=== PATIENT | female | born 1995 | race Caucasian/White ===

== ENCOUNTER → 2018-08-04 16:43 | Outpatient (CLI) | payer OTHER, SELFPAY | PROVIDERS: Referring Provider Nurse Practitioner; Visit Provider Nurse Practitioner | DX: R50.9 Fever, unspecified (principal); R19.7 Diarrhea, unspecified; D89.9 Disorder involving the immune mechanism, unspecified | CPT/HCPCS: 36415 ==

== ENCOUNTER → 2018-08-10 09:54 | Outpatient (CLI) | payer OTHER, SELFPAY ==
--- OUTSIDE RECORDS SUMMARY | 2018-09-26 08:47 | XMS RPT_ITS ---
:1995 Author Organization OHIP Care Team Providers Name Role Phone SHIRLEY TYLER (CREW TEAM MEMBER) Attending Unavailable XENIA MARTINEZ Referring Unavailable Older, Shirley CREW TEAM MEMBER Attending Unavailable Older, Shirley CREW TEAM MEMBER Referring Unavailable Primay Care Physicia, No Primary Care Unavailable Older, Shirley CREW TEAM MEMBER Attending Unavailable Older, Shirley CREW TEAM MEMBER Referring Unavailable Primay Care Physicia, No Primary Care Unavailable PROBLEMS PROBLEMS DATE TYPE CONDITION / CODE ATTENDING STATUS SOURCE 08/25/2018 Unknown R50.9 - Fever, Older, Shirley CREW TEAM MEMBER Active [place] unspecified / Community R50.9(ICD-10) Hospital Repository PROCEDURES PROCEDURES No Procedure Records FoundRESULTS RESULTS MISCELLANEOUS LAB Collected: 08/10/2018 Status: F Source: TASHIA PROCEDURE 10:07 AM [facility] REPOSITORY Order Comment: Test(s) Ordered: CBCD SEND DIRECTLY TO [facility] TYPE CODE TESTS RESULT OUT OF RANGE REFERENCE UNITS LAB L801.1541 Normal [facility] LAB TEST Result Comment: Sent directly to testing facility per ordering physician. 08/12/18 1612 MYOUNG Performed By: #### L801.1541 #### [facility] [address] [place], [address] COMPREHENSIVE METABOLIC Collected: 08/04/2018 Status: F Source: TASHAI PROFIL 5:03 PM [facility] REPOSITORY TYPE CODE TESTS RESULT OUT OF RANGE REFERENCE UNITS LAB L501.0100 74-106 mg/dL Normal GLU 79 Result Comment: Please note revised GLUCOSE reference range effective 2017. LAB L501.1000 7-18 mg/dL Normal BUN 10 LAB L501.1100 0.55-1.02 mg/dL Normal CREAT,SERUM 0.63 Result Comment: The validity of the calculated GFR AND GFRAA in patients over 70 years has not been determined. Clinical correlation is essential. LAB L501.1110 >60 mL/min Normal EST GFR 124 Result Comment: Non- GFR Calc LAB L501.1115 >60 mL/min Normal EST GFR - AA 150 Result Comment: GFR Calc LAB L501.1300 10-20 RATIO Normal BUN/CRE 16.0 LAB L501.1500 6.4-8.2 g/dL High T PROT 8.4 LAB L501.1800 3.2-5.0 g/dL Normal ALB 5.0 LAB L501.1950 2.2-4.2 g/dL Normal GLOB 3.4 LAB L501.2000 0.9-2.4 RATIO Normal A/G 1.5 LAB L501.2200 8.5-10.1 mg/dL CA Normal 9.1 LAB L501.4100 15-37 U/L Normal AST 20 LAB L501.4305 45-117 U/L Normal ALK P 54 LAB L501.4405 13-56 U/L Normal ALT 25 LAB L501.4600 0.20-1.00 mg/dL T Normal BILI 0.30 LAB L501.5300 136-145 mmol/L NA Normal 137 LAB L501.5600 3.5-5.1 mmol/L K Normal 4.0 LAB L501.5900 98-107 mmol/L CL Normal 104 LAB L501.6100 21.0-32.0 mmol/L Normal CO2 23.0 LAB L501.6200 5-15 Normal GAP 10 Performed By: #### L500.4050 #### [facility] [address] [place], [address] MISCELLANEOUS LAB Collected: 08/04/2018 Status: F Source: TASHIA PROCEDURE 5:03 PM [facility] REPOSITORY Order Comment: Test(s) Ordered: SENT TO [facility] TYPE CODE TESTS RESULT OUT OF RANGE REFERENCE UNITS LAB L801.1541 Normal [facility] LAB TEST Result Comment: Sent directly to testing facility per ordering physician. @ 08/17/18 1223 MYOUNG Performed By: #### L801.1541 #### [facility] [address], [address] CNOV Observed: 08/04/2018 Status: COMPLETED Source: [facility] 4:20 PM [facility] REPOSITORY Office Visit (INTMWS) TARUN TREJO ([id number]) 1995 F CHT Date Time Provider Department 08/04/18 4:20 PM SHIRLEY TYLER (RANDALL) INTMWS During your visit today, we recorded the following information about you: Temperature Pulse Blood pressure Weight 98.2 degrees 64/minute 120/66 71.2 kg Shirley Tyler APRN.CNP 08/05/2018 8:35 AM Signed CC bloody stools, history of ulcerative colitis HPI Tarun Trejo is a 23 year old female who presents with bloody diarrhea and fever. DIARRHEA:09809} occuring 7 to 8 stools/day on average. Associated with abdominal cramping Denies: nausea, vomiting, no appetite, hematemesis, abdominal pain and bloating History of ulcerative colitis. Currently treated with Humira. She developed fever and sinus symptoms and was evaluated in urgent care. Treated with Amoxicillin and advised to hold Humira, last dose was 07/21. Diarrhea became much worse around this time. Today reports sinus symptoms have mostly resolved but continues to have fevers. Last temp elevation was this morning, 101.5 History of sepsis with gut bacteria a few months ago due to Humira. Treated by ID and Humira was resumed. ROS General: denies dizziness, lightheadedness, weight loss, feeling faint, syncope CV: denies rapid heart rate, edema Resp: denies SOB : denies dark/concentrated urine or decreased urine output PAST MEDICAL HISTORY Diagnosis Date - Depression with anxiety - Insomnia trazodone as needed effective PAST SURGICAL HISTORY Procedure Laterality Date - COLONOSCOPY 09/16/2016 - EGD 09/16/2016 ALLERGIES Prozac [Fluoxetine Hcl]; Zoloft [Sertraline Hcl] MEDICATIONS mv,iron,jrq-GK-nixvzir cmb.24 400 mcg tab mv,iron,iwf-UZ-bqlcltj supplement comb. no.24 400 mcg tablet Take 1 tablet every day by oral route with meals. amoxicillin (AMOXIL) 875 mg tablet Take 1 tablet by mouth twice daily for 7 days. adalimumab (HUMIRA) 40 mg/0.4 mL sykt 0.4 mL. predniSONE (DELTASONE) 20 mg tablet Take 20 mg by mouth once daily. FAMILY HISTORY Problem Relation Age of Onset - None Mother - None Father - None Sister Social History Substance Use Topics - Smoking status: Never Smoker - Smokeless tobacco: Never Used - Alcohol use Yes Comment: Rare glass of wine PHYSICAL EXAM BP 120/66 Pulse 64 Temp 36.8 ?C (98.2 ?F) (Temporal Artery) Wt 71.2 kg (157 lb) SpO2 96% BMI 27.81 kg/m? General Appearance: well appearing, in no acute distress, alert Skin: Skin color, texture, turgor normal for age; Eyes: conjunctiva pink and moist, no icterus, sclera white, non-injected Oropharynx: moist Lungs: lungs clear to auscultation. No wheezing, rhonchi, rales Heart: RRR without murmur, gallop, or rubs. No ectopy Abdomen: Abdomen soft, non-tender. Bowel sounds normal. No masses, organomegaly, Negative CVA tenderness Ext: no edema in LE bilaterally, good distal pulses ASSESSMENT/PLAN: 1. Fever, unspecified fever cause - ICD9: 780.60, ICD10: R50.9 (primary diagnosis) Stable, non-toxic appearing. Abdominal exam benign and no evidence of dehydration. Patient lives in [place], here visiting family. She had notified her director of strategic sourcing DR. Xenia Martinez of current symptoms, he advised her to be evaluated in primary care. Called and spoke with Dr. Martinez. Concerned about possible sepsis or C-diff. Recommended laboratory evaluation with: - CBC + DIFF - COMP METABOLIC PANEL - BLOOD CULTURE DRAW - BLOOD CULTURE DRAW - ENTERIC BACTERIAL PANEL BY PCR - C. DIFFICILE PCR - URINE CULTURE Orders sent to [facility], insurance will only cover their lab Follow-up and further possible work-up pending results 2. Bloody diarrhea - ICD9: 787.91, ICD10: R19.7 As above - CBC + DIFF - COMP METABOLIC PANEL - BLOOD CULTURE DRAW - BLOOD CULTURE DRAW - ENTERIC BACTERIAL PANEL BY PCR - C. DIFFICILE PCR - URINE CULTURE 3. Immunosuppression due to drug therapy Z79.899 As above - CBC + DIFF - COMP METABOLIC PANEL - BLOOD CULTURE DRAW - BLOOD CULTURE DRAW - ENTERIC BACTERIAL PANEL BY PCR - C. DIFFICILE PCR - URINE CULTURE 4. Ulcerative colitis As above Prescription instructions reviewed with patient as applicable. Potential red flag symptoms discussed with the patient. Reviewed appropriate action plan to take if red flag symptoms occur. Patient agreeable to treatment plan Shirley Tyler APRN.CREW TEAM MEMBER Referring Provider: XENIA MARTINEZ [[id number]] Allergies As of Date: 08/04/2018 Noted Allergy Reaction PROZAC (FLUOXETINE HCL) 05/30/2015 2 - Rash Comments: Also, not effective ZOLOFT (SERTRALINE HCL) 05/30/2015 2 - Rash Date Reviewed: 08/04/2018 Reviewed by: Ebonie Lopez Synthetic Chemist - Fully Assessed Primary Visit Diagnosis:Fever, unspecified fever cause [R50.9] Other Visit Diagnoses:Bloody diarrhea [R19.7] Immunosuppression due to drug therapy [Z79.899] Ulcerative colitis without complications, unspecified location (HCC) [K51.90] Order(s):CBC + DIFF [SQCBCDIF] Order #: [id number] FUTURE COMP METABOLIC PANEL [SQCMP] Order #: [id number] FUTURE BLOOD CULTURE DRAW [SQBLCUL] Order #: [id number] FUTURE BLOOD CULTURE DRAW [SQBLCUL] Order #: [id number] FUTURE ENTERIC BACTERIAL PANEL BY PCR [SQSTLPCR] Order #: [id number] FUTURE C. DIFFICILE PCR [SQCDPCR] Order #: [id number] URINE CULTURE [SQURCUL] Order #: [id number] FUTURE Prescriptions as of 08/04/2018 Sig: AMOXICILLIN 875 MG TABLET Take 1 tablet by mouth twice * MV,IRON,YPW-WF-ZXAMKPO SUPPLE* mv,iron,kce-NR-pwhmqaz supple* ADALIMUMAB 40 MG/0.4 ML SUBCU* 0.4 mL. PREDNISONE 20 MG TABLET Take 20 mg by mouth once avis* Problem List As Of Date 08/04/2018 Noted Resolved Depressive disorder [F32.9] INVALID FOR* Diarrhea [R19.7] INVALID FOR* Iron deficiency anemia [D50.9] INVALID FOR* Left sided colitis (HCC) [K51.50] INVALID FOR* Encounter Status:Closed by SHIRLEY TYLER CNP on 08/05/18 PROGRESS Observed: 08/04/2018 Status: COMPLETED Source: [facility] 3:51 PM [facility] REPOSITORY HNO ID: [id number] Author: Shirley (Randall) Stephon Service: (none) Author Type: Nurse Practitioner Type: Progress Notes Filed: 08/05/2018 8:35 AM Note Text: CC bloody stools, history of ulcerative colitis HPI Tarun Trejo is a 23 year old female who presents with bloody diarrhea and fever. DIARRHEA:80207} occuring 7 to 8 stools/day on average. Associated with abdominal cramping Denies: nausea, vomiting, no appetite, hematemesis, abdominal pain and bloating History of ulcerative colitis. Currently treated with Humira. She developed fever and sinus symptoms and was evaluated in urgent care. Treated with Amoxicillin and advised to hold Humira, last dose was 07/21. Diarrhea became much worse around this time. Today reports sinus symptoms have mostly resolved but continues to have fevers. Last temp elevation was this morning, 101.5 History of sepsis with gut bacteria a few months ago due to Humira. Treated by ID and Humira was resumed. ROS General: denies dizziness, lightheadedness, weight loss, feeling faint, syncope CV: denies rapid heart rate, edema Resp: denies SOB : denies dark/concentrated urine or decreased urine output PAST MEDICAL HISTORY Diagnosis Date - Depression with anxiety - Insomnia trazodone as needed effective PAST SURGICAL HISTORY Procedure Laterality Date - COLONOSCOPY 09/16/2016 - EGD 09/16/2016 ALLERGIES Prozac [Fluoxetine Hcl]; Zoloft [Sertraline Hcl] MEDICATIONS mv,iron,imw-EI-njvjmjp cmb.24 400 mcg tab mv,iron,svd-PB-yfnapeu supplement comb. no.24 400 mcg tablet Take 1 tablet every day by oral route with meals. amoxicillin (AMOXIL) 875 mg tablet Take 1 tablet by mouth twice daily for 7 days. adalimumab (HUMIRA) 40 mg/0.4 mL sykt 0.4 mL. predniSONE (DELTASONE) 20 mg tablet Take 20 mg by mouth once daily. FAMILY HISTORY Problem Relation Age of Onset - None Mother - None Father - None Sister Social History Substance Use Topics - Smoking status: Never Smoker - Smokeless tobacco: Never Used - Alcohol use Yes Comment: Rare glass of wine PHYSICAL EXAM BP 120/66 Pulse 64 Temp 36.8 ?C (98.2 ?F) (Temporal Artery) Wt 71.2 kg (157 lb) SpO2 96% BMI 27.81 kg/m? General Appearance: well appearing, in no acute distress, alert Skin: Skin color, texture, turgor normal for age; Eyes: conjunctiva pink and moist, no icterus, sclera white, non-injected Oropharynx: moist Lungs: lungs clear to auscultation. No wheezing, rhonchi, rales Heart: RRR without murmur, gallop, or rubs. No ectopy Abdomen: Abdomen soft, non-tender. Bowel sounds normal. No masses, organomegaly, Negative CVA tenderness Ext: no edema in LE bilaterally, good distal pulses ASSESSMENT/PLAN: 1. Fever, unspecified fever cause - ICD9: 780.60, ICD10: R50.9 (primary diagnosis) Stable, non-toxic appearing. Abdominal exam benign and no evidence of dehydration. Patient lives in [place], here visiting family. She had notified her director of strategic sourcing DR. Xeina Martinez of current symptoms, he advised her to be evaluated in primary care. Called and spoke with Dr. Martinez. Concerned about possible sepsis or C-diff. Recommended laboratory evaluation with: - CBC + DIFF - COMP METABOLIC PANEL - BLOOD CULTURE DRAW - BLOOD CULTURE DRAW - ENTERIC BACTERIAL PANEL BY PCR - C. DIFFICILE PCR - URINE CULTURE Orders sent to [facility], insurance will only cover their lab Follow-up and further possible work-up pending results 2. Bloody diarrhea - ICD9: 787.91, ICD10: R19.7 As above - CBC + DIFF - COMP METABOLIC PANEL - BLOOD CULTURE DRAW - BLOOD CULTURE DRAW - ENTERIC BACTERIAL PANEL BY PCR - C. DIFFICILE PCR - URINE CULTURE 3. Immunosuppression due to drug therapy Z79.899 As above - CBC + DIFF - COMP METABOLIC PANEL - BLOOD CULTURE DRAW - BLOOD CULTURE DRAW - ENTERIC BACTERIAL PANEL BY PCR - C. DIFFICILE PCR - URINE CULTURE 4. Ulcerative colitis As above Prescription instructions reviewed with patient as applicable. Potential red flag symptoms discussed with the patient. Reviewed appropriate action plan to take if red flag symptoms occur. Patient agreeable to treatment plan Shirley Tyler APRN.CNP PROGRESS Observed: 07/29/2018 Status: COMPLETED Source: [facility] 10:54 AM [facility] REPOSITORY HNO ID: [id number] Author: Rolf Shah Service: (none) Author Type: Physician Type: Progress Notes Filed: 07/29/2018 11:11 AM Note Text: Patient presents with: Sinusitis: x 4 days HPI: Feeling sick for 4 days. [place]iting [place]. Positive symptoms: Sore throat, Sinus pressure, Fever (101.7 yesterday), Cough, Earache, Nasal Congestion, Rhinorrhea, Post nasal drainage, Diarrhea-looser than baseline, Negative symptoms: Vomiting, OTC: Tylenol. Holding evan while febrile. Reports she had a blood infection last month - origin of infection was her colon. PAST MEDICAL HISTORY Diagnosis Date - Depression with anxiety - Insomnia trazodone as needed effective ACTIVE PROBLEM LIST Depressive Disorder Diarrhea Iron Deficiency Anemia Left Sided Colitis (Hcc) MEDICATIONS: Current Outpatient Prescriptions: adalimumab (HUMIRA) 40 mg/0.4 mL sykt 0.4 mL. mv,iron,rgu-ZH-gcnhdph cmb.24 400 mcg tab mv,iron,agd-HJ-myiottu supplement comb. no.24 400 mcg tablet Take 1 tablet every day by oral route with meals. predniSONE (DELTASONE) 20 mg tablet Take 20 mg by mouth once daily. No current facility-administered medications for this visit. ALLERGIES: ALLERGIES Allergen Reactions - Prozac [Fluoxetine * Rash Also, not effective - Zoloft [Sertraline * Rash VITALS: BP 102/70 Pulse 96 Temp 37.3 ?C (99.2 ?F) (Left Tympanic) Resp 16 Wt 73.3 kg (161 lb 9.6 oz) SpO2 98% BMI 28.63 kg/m? PHYSICAL EXAM: GEN: mildly ill appearing, pleasant HEENT: PERRL, EOMI (few beats of left eye nystagmus with exam), conjunctiva clear Ears: canals clear, TMs without erythema, bulge, or effusion Sinuses: pressure over sinuses Throat: moist mucous membranes, mild erythema, no exudate Neck: supple, no thyromegaly, no lymphadenopathy HEART: regular rate and rhythm, no murmurs LUNGS: clear to auscultation, no wheezes or crackles, no increased WOB ASSESSMENT/PLAN: 1. URI, acute - ICD9: 465.9, ICD10: J06.9 (primary diagnosis) - suspect viral URI - Discussed supportive care treatment with rest, cold medicine, and analgesia. 2. Acute non-recurrent sinusitis, unspecified location - ICD9: 461.9, ICD10: J01.90 3. Left sided colitis without complications (HCC) - ICD9: 556.5, ICD10: K51.50 Agree with holding humira while ill. Printed - AMOXICILLIN 875 MG TABLET to fill if fever and sinus symptoms persist >5 days. Rolf Shah MD CNOV Observed: 07/29/2018 Status: COMPLETED Source: [facility] 10:45 AM [facility]IT[facility][id number]) 1995 [facility] Date Time Provider Department 07/29/18 10:45 AM [facility] During your visit today, we recorded the following information about you: Temperature Pulse Respiration Blood pressure 99.2 degrees 96/minute 16/minute 102/70 Weight 73.3 kg Rolf Shha MD 07/29/2018 11:11 AM Signed Patient presents with: Sinusitis: x 4 days HPI: Feeling sick for 4 days. Visiting [place]. Positive symptoms: Sore throat, Sinus pressure, Fever (101.7 yesterday), Cough, Earache, Nasal Congestion, Rhinorrhea, Post nasal drainage, Diarrhea-looser than baseline, Negative symptoms: Vomiting, OTC: Tylenol. Holding evan while febrile. Reports she had a blood infection last month - origin of infection was her colon. PAST MEDICAL HISTORY Diagnosis Date - Depression with anxiety - Insomnia trazodone as needed effective ACTIVE PROBLEM LIST Depressive Disorder Diarrhea Iron Deficiency Anemia Left Sided Colitis (Hcc) MEDICATIONS: Current Outpatient Prescriptions: adalimumab (HUMIRA) 40 mg/0.4 mL sykt 0.4 mL. mv,iron,otp-HS-xyzwoba cmb.24 400 mcg tab mv,iron,mtl-XN-qjsbkrq supplement comb. no.24 400 mcg tablet Take 1 tablet every day by oral route with meals. predniSONE (DELTASONE) 20 mg tablet Take 20 mg by mouth once daily. No current facility-administered medications for this visit. ALLERGIES: ALLERGIES Allergen Reactions - Prozac [Fluoxetine * Rash Also, not effective - Zoloft [Sertraline * Rash VITALS: BP 102/70 Pulse 96 Temp 37.3 ?C (99.2 ?F) (Left Tympanic) Resp 16 Wt 73.3 kg (161 lb 9.6 oz) SpO2 98% BMI 28.63 kg/m? PHYSICAL EXAM: GEN: mildly ill appearing, pleasant HEENT: PERRL, EOMI (few beats of left eye nystagmus with exam), conjunctiva clear Ears: canals clear, TMs without erythema, bulge, or effusion Sinuses: pressure over sinuses Throat: moist mucous membranes, mild erythema, no exudate Neck: supple, no thyromegaly, no lymphadenopathy HEART: regular rate and rhythm, no murmurs LUNGS: clear to auscultation, no wheezes or crackles, no increased WOB ASSESSMENT/PLAN: 1. URI, acute - ICD9: 465.9, ICD10: J06.9 (primary diagnosis) - suspect viral URI - Discussed supportive care treatment with rest, cold medicine, and analgesia. 2. Acute non-recurrent sinusitis, unspecified location - ICD9: 461.9, ICD10: J01.90 3. Left sided colitis without complications (HCC) - ICD9: 556.5, ICD10: K51.50 Agree with holding humira while ill. Printed - AMOXICILLIN 875 MG TABLET to fill if fever and sinus symptoms persist >5 days. Rolf Shah MD Referring Provider: SELF [[id number]] Allergies As of Date: 07/29/2018 Noted Allergy Reaction PROZAC (FLUOXETINE HCL) 05/30/2015 2 - Rash Comments: Also, not effective ZOLOFT (SERTRALINE HCL) 05/30/2015 2 - Rash Date Reviewed: 07/29/2018 Reviewed by: Cathie Crowley Ma - Fully Assessed Reason for Visit: Sinusitis [127] Cmt: x 4 days Primary Visit Diagnosis:URI, acute [J06.9] Other Visit Diagnoses:Acute non-recurrent sinusitis, unspecified location [J01.90] Left sided colitis without complications (HCC) [K51.50] Order(s):amoxicillin (AMOXIL) 875 mg tabletTake 1 tablet by mouth twice daily for 7 days.Disp: 14 tabletRfl: 0 Prescriptions as of 07/29/2018 Sig: ADALIMUMAB 40 MG/0.4 ML SUBCU* 0.4 mL. MV,IRON,JLE-IY-TQPGJYH SUPPLE* mv,iron,tgr-LQ-tvtpann supple* PREDNISONE 20 MG TABLET Take 20 mg by mouth once avis* AMOXICILLIN 875 MG TABLET Take 1 tablet by mouth twice * Problem List As Of Date 07/29/2018 Noted Resolved Depressive disorder [F32.9] INVALID FOR* Diarrhea [R19.7] INVALID FOR* Iron deficiency anemia [D50.9] INVALID FOR* Left sided colitis (HCC) [K51.50] INVALID FOR* Prescriptions ordered this encounter Disp Refills Start End AMOXICILLIN 875 MG TABLET 14 t* 0 07/29/2018 08/05/2018 Class: Print RX Route: ORAL Sig: Take 1 tablet by mouth twice daily for 7 days. Medications Discontinued During This Encounter Drospirenone-Ethinyl Estradiol (SANTA* 0 04/29/2016 07/29/2018 Class: Historical Med Route: ORAL Sig: Take 1 tablet by mouth once daily. Disc: Course of therapy completed diphenoxylate-atropine (LOMOTIL) 2.5* 12 t* 0 09/07/2016 07/29/2018 Class: Print RX Route: ORAL Sig: Take 1 tablet by mouth four times daily as needed for Diarrhea. Disc: Course of therapy completed balsalazide (COLAZAL) 750 mg capsule 100 * 0 09/19/2016 07/29/2018 Route: ORAL Sig: Take 3 capsules by mouth three times daily. Patient not taking: Reported on 07/29/2018 Disc: Course of therapy completed Encounter Status:Closed by ROLF SHAH MD on 07/29/18 ALLERGIES ALLERGIES DATE TYPE / CODE NAME / CODE REACTION SEVERITY SOURCE 05/30/2015 DRUG FLUOXETINE HCL RASH [facility] INGREDI/419 [facility] 212726(SNOM Repository ED CT) 05/30/2015 DRUG SERTRALINE HCL RASH [facility] INGRED/419 [facility] 107653(SNOM Repository ED CT) ENCOUNTERS ENCOUNTERS ADMIT/DISCHARGE ACCOUNT ADMITTING ENCOUNTER LOCATION SOURCE NUMBER CLASS 08/10/2018 [id number] Ambulatory [facility] ing:LAB.FUTUR Repository E 08/04/2018 [id number] [facility] ing:LAB Repository 08/04/2018/08/05/20 [id number] Ambulatory [address] Repository 07/29/2018/07/29/[id number] Repository PAYERS PAYERS ENCOUNTER GUARANTOR PAYER SUBSCRIBER SOURCE 08/10/2018 TARUN Fernández Primary Insurance:PARISA HARDENB: [place]ia [id number] [id number] [id number] Number: Hospital BLVDAPT [id number] Repository [facility] Date:[id number] , [place] [address]Pzi: [id number] [place] [address]TP: (hp) 08/10/2018 Secondary PETER I [place] Insurance: GASSMANDOB: [facility] [id number] [id number] Repository Date:[id number] [address]DI: 08/10/2018 Tertiary NOT GIVENUNK [place] Insurance:SELF PAY [facility] Number: Effective Repository Date:2018-08-09 08/04/2018 TARUN Fernández Primary Insurance:PARISA SIMMONS: [place] [id number] [id number] [id number] Number: Hospital BLVD[address] [id number] [facility]ository [facility] Date:[id number] , [place] [address]Vjw: [id number] [facility] [place] [address]ZS: (hp) 08/04/2018 Secondary NOT GIVENUNK [place] Insurance:SELF PAY [facility]: Effective Repository Date:2018-08-04
== END ==
PROVIDERS: Referring Provider Nurse Practitioner; Visit Provider Nurse Practitioner
DX: R50.9 Fever, unspecified (principal); R19.7 Diarrhea, unspecified; Z79.899 Other long term (current) drug therapy
CPT/HCPCS: 36415

== ENCOUNTER → 2019-02-06 | Outpatient (CLI) | payer OTHER, SELFPAY | END | disposition home or self-care (01) | LOC: LAB 13:37 | DX: K51.90 Ulcerative colitis, unspecified, without complications (principal) | CPT/HCPCS: 36415 ==

== ENCOUNTER → 2021-07-28 15:03 | Outpatient (CLI) | payer BC, OTHER, SELFPAY ==
[2021-07-28 15:28] LABS: Absolute Lymphocyte Count 2.55 X10^3/uL (0.83-4.51); Absolute Neutrophil Count 2.9 X10^3/uL (2.0-7.7); Basophil# 0.04 X10^3/uL; Basophil% 0.7 % (0-1); Eosinophils% 1.7 % (0-5); Hematocrit 34.9 % (37-47); Hemoglobin 11.7 g/dL (12.0-15.0); Lymphocyte # 2.55 X10^3/ul (0.83-4.51); Lymphocyte % 42.2 % (19-41); Mean Corp Hgb Conc 33.5 g/dL (32-36); Mean Corpuscular Hgb 30.9 pg (27.0-32.0); Mean Corpuscular Volume 92.1 fL (81-99); Monocyte# 0.41 X10^3/uL; Monocyte% 6.8 % (0-10); NRBC Flagged by Analyzer 0 % (0-5); Neutrophil # 2.93 X10^3/uL (2.7-7.7); Neutrophil % 48.4 % (47-70); Platelet Count 262 K/mm3 (150-450); Red Blood Count 3.79 M/mm3 (4.2-5.4)
[2021-07-28 15:41] LABS: Erythrocyte Sedimentation Rate 22 mm/hr (0-30)
[2021-07-28 16:11] LABS: AST(SGOT) 30 U/L (15-37); Alanine Aminotransfer ALT/SGPT 76 U/L (13-56); Albumin, Serum 3.9 g/dL (3.2-5.0); Alkaline Phosphatase 42 U/L (45-117); Anion Gap 6 (5-15); BUN 14 mg/dL (7-18); BUN/Creat Ratio 22.3 RATIO (10-20); CRP < 2.90 mg/L (0.0-3.0); Chloride 106 mmol/L (98-107); Creatinine, Serum 0.63 mg/dL (0.55-1.02); EST Glomerular Filtration Rate 121 mL/min (>60); Est Glom Filt Rate - Afr Amer 146 mL/min (>60); Glucose 104 mg/dL (74-106); LDH 207 U/L (84-246); Potassium 3.8 mmol/L (3.5-5.1); Protein, Total 7.9 g/dL (6.4-8.2); Sodium Level 136 mmol/L (136-145)
== END ==
PROVIDERS: Referring Provider Internal Medicine Gastroenterology; Visit Provider Internal Medicine Gastroenterology
DX: K51.90 Ulcerative colitis, unspecified, without complications (principal)
CPT/HCPCS: 36415; 80053; 83615; 85025; 85652; 86140

== ENCOUNTER 2021-11-20 11:36 | Outpatient (CLI) | payer OTHER, SELFPAY ==
[2021-11-20 13:09] LABS: HIV - WCH Non-Reactive (Nonreactive); Rubella IgG Reactive (Nonreactive)
[2021-11-25 00:07] LABS: HEPATITIS B SURFACE AG Negative (Negative); Hepatitis A IgM Antibody Negative (Negative); Hepatitis B Core AB IgM Negative (Negative); QNTFERON TB Mitogen Value > 10.00 IU/mL (.); QNTFERON TB Nil Value 0.08 IU/mL (.); QNTFERON TB1+ Ag Value 0.72 IU/mL (.); QNTFERON TB2+ Ag Value 0.44 IU/mL (.)
[2021-11-25 08:42] LABS: B. pertussis IgG 1.92 index (0.00-0.94); Hep C Antibodies <0.1 s/co ratio (0.0-0.9); Mumps Antibody, IgM < 0.80 AU (0.00-0.79); V-Zoster IgG (Immunity) 314 index (Immune >165)
[2021-11-25 08:45] LABS: QNTIFERON TB Positive Criteria Positive (Negative)
== END 2021-11-20 23:59 | disposition home or self-care (01) ==
PROVIDERS: Referring Provider Internal Medicine Gastroenterology; Visit Provider Internal Medicine Gastroenterology
DX: K51.90 Ulcerative colitis, unspecified, without complications (principal)
CPT/HCPCS: 36415; 80074; 86480; 86703; 86735; 86762; 86787

== ENCOUNTER 2021-11-21 10:35 | Outpatient (CLI) | payer OTHER, SELFPAY ==
[2021-11-24 21:07] LABS: Calprotectin, Stool 61 ug/g (0-120)
== END 2021-11-21 23:59 | disposition home or self-care (01) ==
LOC: LABSPEC 10:35
PROVIDERS: Visit Provider Internal Medicine Gastroenterology
DX: K51.90 Ulcerative colitis, unspecified, without complications (principal)
CPT/HCPCS: 83993

== ENCOUNTER 2021-11-26 08:36 | Outpatient (CLI) | payer OTHER, SELFPAY ==
--- NOTE | 2021-11-26 08:37 | RAD_ITS ---
STUDY: X-RAY CHEST REASON FOR EXAM: Female, 26 years old. Latent tb TECHNIQUE: PA and lateral views of the chest. Lordotic view was obtained as well. COMPARISON: None. FINDINGS: The lungs are clear and expanded. There is no demonstrated pleural abnormality. Normal size heart. Normal mediastinum and anny. Normal visualized pulmonary arteries. Normal visualized aortic arch and descending thoracic aorta. There is a dextroscoliosis of the thoracic spine. Normal visualized ribs, clavicles, and shoulders. There is no demonstrated abnormality of the visualized soft tissue structures of the upper abdomen. RAD/Chest 2 V w/ Apical/Lordotic IMPRESSION: Normal x-ray examination of the chest. Electronically Signed: Liborio Turner MD at 13:43 EDT ,
== END 2021-11-26 23:59 | disposition home or self-care (01) ==
LOC: MTRAD 08:37
PROVIDERS: Referring Provider Internal Medicine Gastroenterology; Visit Provider Internal Medicine Gastroenterology
DX: Z22.7 Latent tuberculosis (principal)
CPT/HCPCS: 71047

== ENCOUNTER → 2022-03-05 | Outpatient (CLI) | payer BC, OTHER, SELFPAY ==
[2022-03-05 17:16] LABS: Absolute Lymphocyte Count 2.37 X10^3/uL (0.83-4.51); Absolute Neutrophil Count 3.5 X10^3/uL (2.0-7.7); Basophil# 0.04 X10^3/uL; Basophil% 0.6 % (0-1); Eosinophil# 0.09 X10^3/uL; Eosinophils% 1.4 % (0-5); Hemoglobin 11.2 g/dL (12.0-15.0); Lymphocyte # 2.37 X10^3/ul (0.83-4.51); Lymphocyte % 36.9 % (19-41); Mean Corp Hgb Conc 32.9 g/dL (32-36); Mean Corpuscular Hgb 30.4 pg (27.0-32.0); Mean Corpuscular Volume 92.1 fL (81-99); Mean Platelet Vol. 10.4 fl (6.2-12.0); Monocyte# 0.47 X10^3/uL; Monocyte% 7.3 % (0-10); NRBC Flagged by Analyzer 0 % (0-5); Neutrophil # 3.45 X10^3/uL (2.7-7.7); Neutrophil % 53.6 % (47-70); Platelet Count 258 K/mm3 (150-450); RBC Distribution Width SD 41.1 fl (35.1-43.9); Red Blood Count 3.69 M/mm3 (4.2-5.4); White Blood Count 6.4 K/mm3 (4.4-11.0)
[2022-03-05 18:24] LABS: ALB/GLOB Ratio 1.1 RATIO (0.9-2.4); AST(SGOT) 24 U/L (15-37); Alanine Aminotransfer ALT/SGPT 39 U/L (13-56); Albumin, Serum 3.9 g/dL (3.2-5.0); Alkaline Phosphatase 48 U/L (45-117); Anion Gap 6 (5-15); BUN 19 mg/dL (7-18); BUN/Creat Ratio 34.1 RATIO (10-20); CRP < 2.90 mg/L (0.0-3.0); Calcium,Total 8.8 mg/dL (8.5-10.1); Chloride 105 mmol/L (98-107); Creatinine, Serum 0.56 mg/dL (0.55-1.02); EST Glomerular Filtration Rate 138 mL/min (>60); Est Glom Filt Rate - Afr Amer 167 mL/min (>60); Globulin 3.6 g/dL (2.2-4.2); Glucose 90 mg/dL (74-106); LDH 150 U/L (84-246); Potassium 3.8 mmol/L (3.5-5.1); Protein, Total 7.5 g/dL (6.4-8.2); Sodium Level 136 mmol/L (136-145)
[2022-03-05 19:41] LABS: Erythrocyte Sedimentation Rate 13 mm/hr (0-30)
[2022-03-09 14:08] LABS: Anti-Centromere B Ab <0.2 AI (0.0-0.9); Anti-Chromatin <0.2 AI (0.0-0.9); Anti-Jo <0.2 AI (0.0-0.9); Anti-Scleroderma-70 AB <0.2 AI (0.0-0.9); RNP Ab <0.2 AI (0.0-0.9); SJOGREN'S Anti-SS-A test < 0.2 AI (0.0-0.9); SJOGREN'S Anti-SS-B test < 0.2 AI (0.0-0.9); Smith Ab <0.2 AI (0.0-0.9)
[2022-03-09 17:21] LABS: Endomysial Antibody IgA Negative (Negative)
[2022-03-09 19:50] LABS: Anti-dsDNA Ab <1 IU/mL (0-9)
[2022-03-09 20:00] LABS: Immunoglobulin A 265 mg/dL (87-352); t-Transglutaminase IgA <2 U/mL (0-3)
[2022-03-11 01:06] LABS: Albumin 4.1 g/dL (2.9-4.4); Alpha-1-Globulins 0.2 g/dL (0.0-0.4); Alpha-2-Globulins 0.7 g/dL (0.4-1.0); Cytoplasmic Ab (C-ANCA) <1:20 titer (Neg:<1:20); Gamma Globulin 1.1 g/dL (0.4-1.8); Immunoglobulin A 263 mg/dL (87-352); Immunoglobulin E 42 IU/mL (6-495); Immunoglobulin G 1132 mg/dL (586-1602); Immunoglobulin M 109 mg/dL (26-217); PROEL- TOTAL PROTEIN 7.2 g/dL (6.0-8.5)
[2022-03-12 17:13] LABS: CMV Acute Antibody IgM < 30.0 AU/mL (0.0-29.9); CMV Antibody IgG > 10.00 U/mL (0.00-0.59); Perinuclear Ab (P-ANCA) <1:20 titer (Neg:<1:20)
== END | disposition home or self-care (01) ==
LOC: LAB 16:29
PROVIDERS: Referring Provider Nurse Practitioner Adult Health; Visit Provider Nurse Practitioner Adult Health
DX: K51.90 Ulcerative colitis, unspecified, without complications (principal)
CPT/HCPCS: 36415; 80053; 82784; 82785; 83516; 83615; 84165; 85025; 85652; 86140; 86225; 86235; 86255; 86256; 86334; 86644; 86645

== ENCOUNTER → 2022-04-10 | Outpatient (CLI) | payer BC, OTHER, SELFPAY ==
[2022-04-10 12:44] VITALS: BP 116/70; PULSE 70; RESP 16; TEMP 36.3; O2SAT 99; BMI 26.5
[2022-04-10] MEDS: 0.9% NaCl IVPB Med Flush (250 mL) 15 ML IV (13:24)
[2022-04-10] MEDS: 0.9% NaCl Peripheral Flush Adult/Peds IV (13:24)
[2022-04-10 14:39] VITALS: BP 115/61; PULSE 54; RESP 16; TEMP 36.2; O2SAT 99
== END | disposition home or self-care (01) ==
LOC: MEDOUTP 12:12
PROVIDERS: Referring Provider Nurse Practitioner Adult Health; Visit Provider Nurse Practitioner Adult Health
DX: K57.90 Diverticulosis of intestine, part unspecified, without perforation or abscess without bleeding (principal)
CPT/HCPCS: 96365; J7050; A4216; J3358

== ENCOUNTER → 2022-11-16 | Outpatient (CLI) | payer BC, OTHER, SELFPAY ==
[2022-11-16 12:35] LABS: Erythrocyte Sedimentation Rate 4 mm/hr (0-30)
[2022-11-16 12:38] LABS: Absolute Lymphocyte Count 1.94 X10^3/uL (0.83-4.51); Absolute Neutrophil Count 3.2 X10^3/uL (2.0-7.7); Basophil# 0.04 X10^3/uL; Basophil% 0.7 % (0-1); Eosinophil# 0.07 X10^3/uL; Eosinophils% 1.2 % (0-5); Hemoglobin 12.1 g/dL (12.0-15.0); Lymphocyte # 1.94 X10^3/ul (0.83-4.51); Lymphocyte % 34.5 % (19-41); Mean Corp Hgb Conc 32.7 g/dL (32-36); Mean Corpuscular Hgb 30.6 pg (27.0-32.0); Mean Corpuscular Volume 93.7 fL (81-99); Mean Platelet Vol. 10.2 fl (6.2-12.0); Monocyte# 0.34 X10^3/uL; NRBC Flagged by Analyzer 0 % (0-5); Neutrophil # 3.23 X10^3/uL (2.7-7.7); Neutrophil % 57.4 % (47-70); Platelet Count 280 K/mm3 (150-450); RBC Distribution Width CV 12.1 % (11.6-14.6); RBC Distribution Width SD 41.9 fl (35.1-43.9); Red Blood Count 3.95 M/mm3 (4.2-5.4); White Blood Count 5.6 K/mm3 (4.4-11.0)
[2022-11-16 13:00] LABS: ALB/GLOB Ratio 1.1 RATIO (0.9-2.4); AST(SGOT) 20 U/L (15-37); Alanine Aminotransfer ALT/SGPT 33 U/L (13-56); Alkaline Phosphatase 50 U/L (45-117); Anion Gap 5 (5-15); BUN 18 mg/dL (7-18); BUN/Creat Ratio 23.1 RATIO (10-20); CRP < 2.90 mg/L (0.0-3.0); Calcium,Total 9.3 mg/dL (8.5-10.1); Chloride 104 mmol/L (98-107); Creatinine, Serum 0.78 mg/dL (0.55-1.02); EST Glomerular Filtration Rate 94 mL/min (>60); Est Glom Filt Rate - Afr Amer 113 mL/min (>60); Globulin 3.6 g/dL (2.2-4.2); Glucose 95 mg/dL (74-106); Potassium 4.3 mmol/L (3.5-5.1); Protein, Total 7.6 g/dL (6.4-8.2); Sodium Level 138 mmol/L (136-145)
[2022-11-21 09:02] LABS: Calprotectin, Stool 54 ug/g (0-120)
== END | disposition home or self-care (01) ==
PROVIDERS: Referring Provider Nurse Practitioner Adult Health; Visit Provider Nurse Practitioner Adult Health
DX: K51.90 Ulcerative colitis, unspecified, without complications (principal)
CPT/HCPCS: 36415; 80053; 83630; 83993; 85025; 85652; 86140; 87493; 87506

== ENCOUNTER → 2023-08-03 | Outpatient (CLI) | payer BC, SELFPAY ==
[2023-08-03 09:28] LABS: Erythrocyte Sedimentation Rate 6 mm/hr (0-30)
[2023-08-03 09:49] LABS: CRP < 2.90 mg/L (0.0-3.0)
[2023-08-05 17:07] LABS: QNTFERON TB Mitogen Value > 10.00 IU/mL (.); QNTFERON TB Nil Value 0 IU/mL (.); QNTFERON TB1+ Ag Value 0.16 IU/mL (.); QNTFERON TB2+ Ag Value 0.08 IU/mL (.); QNTIFERON TB Positive Criteria Negative (Negative)
== END | disposition home or self-care (01) ==
PROVIDERS: Referring Provider Internal Medicine Gastroenterology; Visit Provider Internal Medicine Gastroenterology
DX: K21.9 Gastro-esophageal reflux disease without esophagitis (principal); K51.90 Ulcerative colitis, unspecified, without complications
CPT/HCPCS: 36415; 85652; 86140; 86480

== ENCOUNTER → 2023-08-07 | Outpatient (CLI) | payer BC, SELFPAY ==
[2023-08-10 16:09] LABS: Calprotectin, Stool 275 ug/g (0-120)
== END | disposition home or self-care (01) ==
LOC: LABSPEC 08:55
PROVIDERS: Referring Provider Internal Medicine Gastroenterology; Visit Provider Internal Medicine Gastroenterology
DX: K21.9 Gastro-esophageal reflux disease without esophagitis (principal); K51.90 Ulcerative colitis, unspecified, without complications
CPT/HCPCS: 83630; 83993

== ENCOUNTER 2023-10-01 10:36 | Day surgery (SDC) | payer BC, SELFPAY ==
[2023-10-01 11:09] LABS: Internal QC Validated? YES +Cl - CLEAR BKGD; Pregnancy, Urine Negative Negative; Record Kit Lot#,Urine Preg HCG0000718086
[2023-10-01] MEDS: Lactated Ringers 1,000 ML 15 ML IV (11:18)
[2023-10-01 11:19] VITALS: BP 120/65; PULSE 62; RESP 18; TEMP 36.8; O2SAT 100; BMI 31.6
--- NOTE | 2023-10-01 11:37 | HP.PCM_ITS ---
History and Physical Date of Admission: 10/01/23 TARUN BRAGA, is a 28 F who presents to the office today for *BGI established 07.28.21 previously diagnosed with IBD, Crohn?s versus UC/proctitis extending to sigmoid colon/pancolitis following colonoscopy; treated with balsalazide until 2019. Reports frequent LGIB. Humira started 2018 and currently taking QWeek OV 09.10.21 continues with Humira Qweek and is doing well from a GI standpoint. She has concerns that her UC is impairing her ability to get as fertility testing was normal for her and her . Start azathioprine OV 10.22.21 Azathioprine unable to be started r/t need for PA. ID Dr. Villagomez established and treated with four months rifampin; OK to continue Humira, do not start azathioprine for one month. OV 03.05.22 possible change of therapy to Stelara. Start hyoscyamine. ? Colonoscopy 05.25.23 cancelled related to . OV 08.03.23 reports loose stools two weeks prior with mucous and blood tinge. Reports recent miscarriage, will possibly require surgical intervention, her OB asked her to skip her Stelara dose; they are not actively trying for children at this time. ? ESR/CRP Calp/Lact? TB? serum/ab 07.28.21/<2.9 --/--? --? 23.7/neg? CBC (anemic), CMP, LDH, IBD 11.20.21 --/--? 61/? +? --/--? Titers 03.05.22 13/<2.9 --/--? --? --/--? apANCA H1:160, CMV IgG+ CBC (anemic), CMP, LDH, CHARLES comp, celiac, SABRINA, GAME? Stool c.difficile, EP, O/P, giardia WNL 04.10.22? Stelara Infusion?? 11.16.22 4/<2.9?? 54/? --? 8.4/neg? CBC, CMP ROS Const Constitutional: Positive for fatigue ENT ENT: No difficulty swallowing Gastro GI: No abdominal pain, belching, bloating, change in bowel habits, change in stool character, coffee ground emesis, constipation, cramping, diarrhea, heartburn, difficulty swallowing, feeling full early, excessive flatus, incontinent of stools, Vomiting blood/hematemesis, Blood in stool, loose stools, Black,tarry stools, nausea/dyspepsia, pain with swallowing, vomiting or other Musc Musculoskeletal: No joint pain Skin Skin: No yellowing of the eye or itchy eyes Psych Psychiatric: Positive for anxiety and No depression Endo Endocrine: Positive for fatigue Aller/Imm Allergy/Immunologic: No itchy eyes Nolan/Lymp Hematologic/Lymphatic: No easy bleeding or easy bruising Exam Const General: cooperative, healthy appearing and well developed Nutritional Appearance: average body habitus HENMT Head: normal to inspection Eyes General: appearance normal, both eyes and all related structures Resp Effort & Inspection: normal respiratory effort GI Inspection: normal to inspection Skin General: no rashes or lesions noted Quality Reporting Tobacco Screening ([facility] 138) Smoking Status: Never smoker Assessment and Plan Assessment and Plan (1) Ulcerative colitis: Status: Chronic Qualifiers: Ulcerative colitis location: ulcerative rectosigmoiditis Digestive disease complication type: without complication Qualified Code(s): K51.30 - 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 Case discussed with Dr Weaver. Symptoms may be due to recent rifampin treatment for latent TB.We will check labs for inflammation, CMV, CBC, CMP, Ig; stool tests for infection and inflammation. Hold off on azathioprine until we rule out anything other than UC flare. Rx for hyoscyamine for the abd pain/cramping. Rx for budesonide foam per rectum BID x 2 wks, then qd x 2 wks. f/u next available which is approx 6-8 wks. (2) Chronic GERD: Status: Chronic Plan: With several history 28-year-old with several year history of ulcerative colitis refractory to Humira therapy currently on Stelara. She was positive for latent tuberculosis and completed 6-month treatment of rifampin. She is not steroid na?ve. She has not had a flare in several months. She did have some urgency with some mucousy stools when she was in [place] but that only lasted for a couple days when she needed Lomotil. Her last fecal calprotectin was normal at 51. We will need to check stool studies and inflammatory markers along with repeating her colonoscopy. Recommendations are for her to not stop immunosuppression at this time as even quiescent inflammation from inflammatory bowel disease can affect fertility. I had a long conversation with her and her regarding the natural history of ulcerative colitis. He is to stop immunosuppression in the third trimester. Her r did have some questions regarding infertility due to the fact that they recently had a miscarriage. I went over the natural history of ulcerative colitis and fertility and told them that the major risk factor was uncontrolled inflammation. Also risk factors were previous steroid usage, history of surgery, obesity, active perineal disease contribute to infertility. Available data do not indicate an adverse effect on fertility from medication against IBD, but active disease and flares could impair fertility in other ways, including systemic effects or local inflammation involving reproductive organs, associated depression, malnutrition, and anaemia, which may confound the ability to conceive. Orders: Orders Erythrocyte Sed Rate Today K21.9 - Gastro-esophageal reflux disease without esophagitis, K51.90 - Ulcerative colitis, unspecified, without complications CRP Today K21.9 - Gastro-esophageal reflux disease without esophagitis, K51.90 - Ulcerative colitis, unspecified, without complications Miscellaneous Lab Procedure Today K21.9 - Gastro-esophageal reflux disease without esophagitis, K51.90 - Ulcerative colitis, unspecified, without complications Calprotectin, Stool Today K21.9 - Gastro-esophageal reflux disease without esophagitis, K51.90 - Ulcerative colitis, unspecified, without complications Stool Lactoferrin/WBC Today K21.9 - Gastro-esophageal reflux disease without esophagitis, K51.90 - Ulcerative colitis, unspecified, without complications, K58.9 - Irritable bowel syndrome without diarrhea Quantiferon TB-Gold+ Today K21.9 - Gastro-esophageal reflux disease without esophagitis, K51.90 - Ulcerative colitis, unspecified, without complications EGD 10/01/23 K21.9 - Gastro-esophageal reflux disease without esophagitis, K51.90 - Ulcerative colitis, unspecified, without complications Colonoscopy 10/01/23 K21.9 - Gastro-esophageal reflux disease without esophagitis, K51.90 - Ulcerative colitis, unspecified, without complications Medications: Changed From omeprazole 20 mg PO BID To omeprazole 20 mg PO BID 90 days 180 caps 3RF I have examined the patient and the H&P has been reviewed. There are no clinical changes since date of exam.
--- NOTE | 2023-10-01 12:00 | COLBX_PTH ---
PATHOLOGY RESULTS PATIENT: TARUN BARNEY LOC: EN U#:[id number] AGE/SX: 28/F ROOM: RE10/01/[address]: Dr. Domo Weaver DO : 1995 BED: DIS: 10/01/2023 SPEC #: [id number] RECD: 10/04/23 07:20 STATUS: LUIS ALFREDO NATALIA #: [id number] CLOVIS: 10/01/23 12:[address]: Domo Weaver DEPT: SURGICAL PATHOLOGY RECD BY: Cathie Paetl ENTERED: 10/04/23 07:21 SP TYPE: COLON BX Tissues: Duodenum, NOS Gastric mucous membrane Ileum, NOS COLON BIOPSY Sigmoid colon biopsy Procedures: Surgery Specimen Level IV HEADER OPERATION: Colonoscopy with biopsies, EGD with biopsies PRE-OP DIAGNOSIS: Ulcerative colitis, chronic GERD TISSUE SUBMITTED: A - Duodenum biopsy, B - Gastric body biopsy, C - Terminal ileum biopsy, D - Random colon biopsies, E - Sigmoid and rectum biopsy MICROSCOPIC DIAGNOSIS A. Duodenum, biopsy: Mild Dede's gland hyperplasia. B. Gastric body, biopsy: Chronic gastritis. See comment. C. Terminal ileum, biopsy: No pathologic change. D. Colon, random biopsy: Chronic active colitis pattern of injury with mild activity. See comment. E. Sigmoid colon and rectum, biopsy: Chronic active colitis pattern of injury with mild activity. See comment. AM:charles 10/05/2023 COMMENT B. The results of immunohistochemistry for Helicobacter pylori will be reported separately ([id number]). D & E. There is mild glandular distortion, cryptitis and focal crypt abscesses. Fissuring ulcers are not identified. There is no evidence of dysplasia. Clinical correlation is suggested. MICROSCOPIC DESCRIPTION Slides are reviewed. GROSS DESCRIPTION A - Received in fixative is one container labeled with the patient's name and designated duodenum biopsy. The specimen consists of two irregular fragments of light tompkins soft tissue that in aggregate measure 0.6 x 0.3 x 0.1 cm. The specimen is totally submitted in one cassette. B - Received in fixative is one container labeled with the patient's name and designated gastric body biopsy. The specimen consists of two irregular fragments of light tompkins soft tissue that in aggregate measure 0.6 x 0.4 x 0.1 cm. The specimen is totally submitted in one cassette. C - Received in fixative is one container labeled with the patient's name and designated terminal ileum biopsy. The specimen consists of multiple irregular fragments of light tompkins soft tissue that in aggregate measure 1.0 x 0.4 x 0.1 cm. The specimen is totally submitted in one cassette. D - Received in fixative is one container labeled with the patient's name and designated random colon biopsy. The specimen consists of multiple irregular fragments of light tompkins soft tissue that in aggregate measure 2.0 x 0.5 x 0.1 cm. The specimen is totally submitted in one cassette. E - Received in fixative is one container labeled with the patient's name and designated sigmoid and rectum biopsy. The specimen consists of multiple irregular fragments of light tompkins soft tissue that in aggregate measure 1.5 x 0.5 x 0.1 cm. The specimen is totally submitted in one cassette. / LOYD:charles 10/04/2023 TC:3 CPT: 61449 x5
--- NOTE | 2023-10-01 12:00 | IMM_PTH ---
PATHOLOGY RESULTS PATIENT: TARUN BARNEY LOC: EN U#:[id number] AGE/SX: 28/F ROOM: RE10/01/[address]: Dr. Domo Weaver DO : 1995 BED: DIS: 10/01/2023 SPEC #: [id number] RECD: 10/04/23 09:32 STATUS: LUIS ALFREDO NATALIA #: [id number] CLOVIS: 10/01/23 12:[address]: Domo Weaver DEPT: IMMUNOHISTOCHEMISTRY RECD BY: Merced Castro ENTERED: 10/04/23 09:35 SP TYPE: IMMUNO Tissues: Stomach, NOS Procedures: H Pylori (initial) PHYSICIAN & INSTITUTION [place] [id number] SPECIMEN INFORMATION: Tissue Source: B - Gastric body Clinical Info: Ulcerative colitis, chronic GERD Specimen Number: [id number] CPT code: 12306 METHODOLOGY: Deparaffinized sections of prefer/formalin-fixed tissue or PAP/DQ stained slides are incubated with monoclonal/polyclonal antibodies/oligonucleotide probes. Localization is made via biotin free immunoperoxidase method. Appropriate controls are performed and reacted as expected. Results on target cell population are indicated in the following table: RESULTS: ANTIBODY / CLONE RESULT Block B H Pylori (polyclonal) negative These tests were developed and their performance characteristics determined by [facility]. They may not have been cleared or approved by the U.S. Food and Drug Administration. The FDA has determined that such clearance or approval is not necessary. The above immunohistochemical/dualISH markers are ordered and reviewed by the Pathologist. INTERPRETATION: B. Gastric body, biopsy: Negative for Helicobacter pylori organisms. AM:charles 10/05/2023
[2023-10-01 12:47] VITALS: BP 120/65; BP 91/44; PULSE 70; RESP 16; TEMP 36.2; O2SAT 100
[2023-10-01 12:50] VITALS: BP 120/65; BP 88/48; PULSE 66; RESP 16; O2SAT 100
--- NOTE | 2023-10-01 12:54 | OP.EGD_ITS ---
Patient Name: Marixa Salazar Procedure Date: 10/01/2023 12:10 PM Date of : 1995 Age: 28 Procedure: Upper GI endoscopy Indications: Epigastric abdominal pain Providers: Domo Weaver DO Medicines: Monitored Anesthesia Care Patient Profile: This is a 28 year old female. Refer to note in patient chart for documentation of history and physical. Patient has symptoms of chronic epigastric abdominal pain. Complications: No immediate complications. Procedure: Pre-Anesthesia Assessment: - Prior to the procedure, a History and Physical was performed, and patient medications and allergies were reviewed. The patient is competent. The risks and benefits of the procedure and the sedation options and risks were discussed with the patient. All questions were answered and informed consent was obtained. Patient identification and proposed procedure were verified by the physician in the pre-procedure area. Mental Status Examination: alert and oriented. Airway Examination: normal oropharyngeal airway and neck mobility. Respiratory Examination: clear to auscultation. CV Examination: normal. ASA Grade Assessment: II - A patient with mild systemic disease. After reviewing the risks and benefits, the patient was deemed in satisfactory condition to undergo the procedure. The anesthesia plan was to use monitored anesthesia care (MAC). Immediately prior to administration of medications, the patient was re-assessed for adequacy to receive sedatives. The heart rate, respiratory rate, oxygen saturations, blood pressure, adequacy of pulmonary ventilation, and response to care were monitored throughout the procedure. The physical status of the patient was re-assessed after the procedure. After obtaining informed consent, the endoscope was passed under direct vision. Throughout the procedure, the patient's blood pressure, pulse, and oxygen saturations were monitored continuously. The Colonoscope was introduced through the mouth, and advanced to the second part of duodenum. The upper GI endoscopy was accomplished without difficulty. The patient tolerated the procedure well. Scope In: 12:24:06 PM Scope Out: 12:28:54 PM Total Procedure Duration Time 0 hours 4 minutes 48 seconds Findings: The examined esophagus was normal. Patchy mildly erythematous mucosa without bleeding was found in the gastric body. Biopsies were taken with a cold forceps for histology. Verification of patient identification for the specimen was done. Biopsies were taken with a cold forceps for Helicobacter pylori testing. Verification of patient identification for the specimen was done. Estimated blood loss was minimal. Patchy mildly erythematous mucosa without active bleeding and with no stigmata of bleeding was found in the duodenal bulb. Biopsies were taken with a cold forceps for histology. Verification of patient identification for the specimen was done. Estimated blood loss was minimal. Impression: - Normal esophagus. - Erythematous mucosa in the gastric body. Biopsied. - Erythematous duodenopathy. Biopsied. Recommendation: - Discharge patient to home. - Resume previous diet. - Continue present medications. - Await pathology results. Procedure Code(s): --- Professional --- 94531, Esophagogastroduodenoscopy, flexible, transoral; with biopsy, single or multiple CPT copyright 2021 [employer]. All rights reserved. The codes documented in this report are preliminary and upon clothing pattern preparer review may be revised to meet current compliance requirements. Domo Weaver DO 10/01/2023 12:54:28 PM This report has been signed electronically. Number of Addenda: 0 Note Initiated On: 10/01/2023 12:10 PM
[2023-10-01 12:55] VITALS: BP 120/65; BP 89/52; PULSE 55; RESP 16; O2SAT 100
--- NOTE | 2023-10-01 12:55 | OP.CCLET_ITS ---
10/01/2023 No Primary Care Physician Re : Upper GI endoscopy procedure for Marixa [facility] Physician This procedure was performed on Sunday, October 01, 2023. My impressions and recommendations are as follows: Impressions : - Normal esophagus. - Erythematous mucosa in the gastric body. Biopsied. - Erythematous duodenopathy. Biopsied. Recommendations : - Discharge patient to home. - Resume previous diet. - Continue present medications. - Await pathology results. My findings are described in the full procedure note, which is enclosed. If I can be of further assistance, please feel free to contact me at . Sincerely, Domo Weaver, 10/01/2023 12:54:28 PM This report has been signed electronically.
--- NOTE | 2023-10-01 12:58 | OP.CCLET_ITS ---
10/01/2023 No Primary Care Physician Re : Colonoscopy procedure for Marixa Salazar [facility] [place] Physician This procedure was performed on Sunday, October 01, 2023. My impressions and recommendations are as follows: Impressions : - Left-sided colitis. Inflammation was found from the rectum to the descending colon. This was moderate in severity, worsened compared to previous examinations. Biopsied. - The examined portion of the ileum was normal. Biopsied. Recommendations : - Discharge patient to home. - Resume previous diet. - Continue present medications. - Await pathology results. - Repeat colonoscopy for surveillance based on pathology results. My findings are described in the full procedure note, which is enclosed. If I can be of further assistance, please feel free to contact me at . Sincerely, Domo Weaver, 10/01/2023 12:58:08 PM This report has been signed electronically.
--- NOTE | 2023-10-01 12:58 | OP.COLON_ITS ---
Patient Name: Marixa Salazar Procedure Date: 10/01/2023 12:29 PM Date of : 1995 Age: 28 Procedure: Colonoscopy Indications: Left-sided chronic ulcerative colitis Providers: Domo Weaver DO Medicines: Monitored Anesthesia Care Patient Profile: This is a 28 year old female. Refer to note in patient chart for documentation of history and physical. Patient has symptoms of chronic epigastric abdominal pain. Last Colonoscopy: date unknown. Unable to locate last colonoscopy report. Complications: No immediate complications. Procedure: Pre-Anesthesia Assessment: - Prior to the procedure, a History and Physical was performed, and patient medications and allergies were reviewed. The patient is competent. The risks and benefits of the procedure and the sedation options and risks were discussed with the patient. All questions were answered and informed consent was obtained. Patient identification and proposed procedure were verified by the physician in the pre-procedure area. Mental Status Examination: alert and oriented. Airway Examination: normal oropharyngeal airway and neck mobility. Respiratory Examination: clear to auscultation. CV Examination: normal. ASA Grade Assessment: II - A patient with mild systemic disease. After reviewing the risks and benefits, the patient was deemed in satisfactory condition to undergo the procedure. The anesthesia plan was to use monitored anesthesia care (MAC). Immediately prior to administration of medications, the patient was re-assessed for adequacy to receive sedatives. The heart rate, respiratory rate, oxygen saturations, blood pressure, adequacy of pulmonary ventilation, and response to care were monitored throughout the procedure. The physical status of the patient was re-assessed after the procedure. After I obtained informed consent, the scope was passed under direct vision. Throughout the procedure, the patient's blood pressure, pulse, and oxygen saturations were monitored continuously. The Colonoscope was introduced through the anus and advanced to the terminal ileum. The colonoscopy was performed without difficulty. The patient tolerated the procedure well. The quality of the bowel preparation was adequate. The terminal ileum, ileocecal valve, appendiceal orifice, and rectum were photographed. Scope In: 12:31:25 PM Scope Withdrawal Time 0 hours 8 minutes 17 seconds Scope Out: 12:42:31 PM Total Procedure Duration Time 0 hours 11 minutes 6 seconds Findings: The perianal and digital rectal examinations were normal. Inflammation characterized by congestion (edema), erosions, erythema, friability, linear erosions and loss of vascularity was found in a continuous and circumferential pattern from the rectum to the descending colon. The transverse colon and the ascending colon were spared. The inflammation was moderate in severity, and when compared to previous examinations, the findings are worsened. Biopsies were taken with a cold forceps for histology. Verification of patient identification for the specimen was done. Estimated blood loss was minimal. The terminal ileum appeared normal. Biopsies were taken with a cold forceps for histology. Verification of patient identification for the specimen was done. Estimated blood loss was minimal. Impression: - Left-sided colitis. Inflammation was found from the rectum to the descending colon. This was moderate in severity, worsened compared to previous examinations. Biopsied. - The examined portion of the ileum was normal. Biopsied. Recommendation: - Discharge patient to home. - Resume previous diet. - Continue present medications. - Await pathology results. - Repeat colonoscopy for surveillance based on pathology results. Procedure Code(s): --- Professional --- 28694, Colonoscopy, flexible; with biopsy, single or multiple CPT copyright 2021 [employer]. All rights reserved. The codes documented in this report are preliminary and upon materials specialist review may be revised to meet current compliance requirements. Domo Weaver DO 10/01/2023 12:58:08 PM This report has been signed electronically. Number of Addenda: 0 Note Initiated On: 10/01/2023 12:29 PM
[2023-10-01 13:00] VITALS: BP 107/54; BP 120/65; PULSE 55; RESP 16; TEMP 36.2; O2SAT 100
[2023-10-01 13:18] VITALS: BP 120/65
--- OUTSIDE RECORDS SUMMARY | 2023-10-01 13:24 | XMS RPT_ITS | CCD ---
Author Name Unknown Address [address] [place] [address] Organization [facility] Care Team Providers Care Obstetric Anaesthetist Name Role Phone Unavailable Primary Care Provider GUICHO Crowell MD Primary Care Physician PAM TROTTER MD Attending Unavailable GUICHO MERCEDES MD Primary Care Unavailable PAM TROTTER MD Attending Unavailable GUICHO MERCEDES MD Primary Care Unavailable PAM TROTTER MD Attending Unavailable GUICHO MERCEDES MD Primary Care Unavailable PAM TROTTER MD Consulting Unavailable GUICHO MERCEDES MD Primary Care Unavailable GUICHO MERCEDES MD Attending Unavailable Medications Current Medications Medication Drug Class(es) Dates Sig (Normalized) Sig (Original) acetaminophen 500 mg oral tablet (1 source) Start: 08-27-2023 End: 09-24-2023 Tylenol Extra Strength 500 mg oral tablet Dose : 500 mg = 1 tab(s), Oral, q4h, X 14 day(s), # 30 tab(s), 1 Refill(s), 09/24/23 11:51:00 AM EST, Pharmacy: [facility] #[id number], 160, cm, 08/27/23 10:15:00 EST, Height, kg, 08/27/23 10:15:00 EST, Dosing Weight Start Date: 08/27/23 Stop Date: 09/24/23 Status: Ordered acetaminophen 325 mg / oxyCODONE hydrochloride 5 mg oral tablet (1 source) Opioid Agonist Start: 08-27-2023 End: 09-03-2023 take 1 tablet by mouth every four hours as needed for pain Percocet 5 mg-325 mg oral tablet Dose = 1 tab(s), Oral, q4h, PRN for pain, X 7 day(s), # 12 tab(s), 0 Refill(s), Pharmacy: [facility] #[id number], Postoperative pain, 160, cm, 08/27/23 10:15:00 EST, Height, 75, kg, 08/27/23 10:15:00 EST, Dosing Weight Start Date: 08/27/23 Stop Date: 09/03/23 Status: Ordered CoQ-10 with Black Pepper Extract 400 mg oral capsule (1 source) Start: 08-13-2023 take 1 capsule by mouth once daily CoQ-10 with Black Pepper Extract 400 mg oral capsule 1 cap, Oral, Daily, 0 Refill(s) Start Date: 08/13/23 Status: Ordered dicyclomine hydrochloride 20 mg oral tablet (1 source) Anticholinergic Start: 08-13-2023 dicyclomine 20 mg oral tablet Dose : 20 mg = 1 tab(s), Oral, TID Start Date: 08/13/23 Status: Ordered ibuprofen 800 mg oral tablet (1 source) Nonsteroidal Anti-inflammatory Drug Start: 08-27-2023 End: 09-10-2023 ibuprofen 800 mg oral tablet Dose : 800 mg = 1 tab(s), Oral, q8h, X 14 day(s), # 42 tab(s), 0 Refill(s), 09/10/23 11:51:00 AM EST, Pharmacy: [facility] #[id number], 160, cm, 08/27/23 10:15:00 EST, Height, kg, 08/27/23 10:15:00 EST, Dosing Weight Start Date: 08/27/23 Stop Date: 09/10/23 Status: Ordered omeprazole 20 mg delayed release oral capsule (1 source) Proton Pump Inhibitor Start: 08-13-2023 omeprazole 20 mg oral delayed release capsule Dose : 20 mg = 1 cap(s), Oral, BIDAC, 0 Refill(s) Start Date: 08/13/23 Status: Ordered ondansetron 4 mg oral tablet (1 source) Serotonin-3 Receptor Antagonist Start: 08-27-2023 End: 09-01-2023 Zofran 4 mg oral tablet Dose : 4 mg = 1 tab(s), Oral, q6h, PRN Nausea/Vomiting, X 5 day(s), # 20 tab(s), 0 Refill(s), 09/01/23 11:51:00 AM EST, Pharmacy: [facility] #[id number], 160, cm, 08/27/23 10:15:00 EST, Height, kg, 08/27/23 10:15:00 EST, Dosing Weight Start Date: 08/27/23 Stop Date: 09/01/23 Status: Ordered Multivitamins (1 source) Start: 04-20-2023 take 1 tablet by mouth once daily Multivitamins Dose = 1 tab(s), Oral, qDay, 0 Refill(s) Start Date: 04/20/23 Status: Ordered Vitamin D3 (1 source) Start: 04-20-2023 take 1 dose by mouth once daily Vitamin D3 Dose : 25 mcg =, Oral, qDay, 0 Refill(s) Start Date: 04/20/23 Status: Ordered Completed/Discontinued Medications Medication Drug Class(es) Dates Sig (Normalized) Sig (Original) 1 ml ustekinumab 90 mg/ml prefilled syringe (1 source) Interleukin-12 Antagonist, Interleukin-23 Antagonist Start: 04-20-2023 Stelara PFS 90 mg/mL subcutaneous solution Dose : 90 mg = 1 mL, Subcutaneous, q8wk, # 1 mL, 0 Refill(s) Start Date: 04/20/23 Status: Ordered Problems Active Problems Problem Classification Problem Date Documented Date Episodic/Chronic Female infertility (1 source) Female infertility; Translations: [Female infertility, unspecified] Onset: 08-27-2023 Chronic Other nervous system disorders (1 source) Postoperative pain ; Translations: [Other acute postprocedural pain] Onset: 08-27-2023 Episodic Other nutritional; endocrine; and metabolic disorders (1 source) Weight gain 04-20-2023 Episodic Regional enteritis and ulcerative colitis (2 sources) Crohn's disease; Translations: [Crohn's disease, unspecified, without complications] Onset: 08-27-2023 Chronic Residual codes; unclassified (1 source) Family history of urological disorder; Translations: [Family history of other diseases of the genitourinary system] Onset: 08-27-2023 Episodic Unclassified (1 source) Patient encounter status 04-20-2023 Past or Other Problems Problem Classification Problem Date Documented Da te Episodic/Chronic Other nutritional; endocrine; and metabolic disorders (2 sources) Abnormal weight gain; Translations: [Abnormal weight gain] Onset: 04-20-2023 Episodic Results Test Name Value Interpretation Reference Range Facil ity Vital Signs Date Time Vital Sign Value Performing Clinician Faci lity 08-27-2023 14:07-0500 Diastolic Blood Pressure Non-Invasive 56 mm[Hg] PAM TROTTER MD [facility] 08-27-2023 14:07-0500 Systolic Blood Pressure Non-Invasive 102 mm[Hg] PAM TROTTER MD [facility] 08-27-2023 13:22-0500 Diastolic Blood Pressure Non-Invasive 64 mm[Hg] PAM TROTTER MD [facility] 08-27-2023 13:22-0500 Heart rate 65 /min PAM TROTTER MD [facility] 08-27-2023 13:22-0500 Respiratory rate 12 /min PAM TROTTER MD [facility] 08-27-2023 13:22-0500 Systolic Blood Pressure Non-Invasive 117 mm[Hg] PAM TROTTER MD [facility] 08-27-2023 13:01-0500 Diastolic Blood Pressure Non-Invasive 99 mm[Hg] PAM TROTTER MD [facility] 08-27-2023 13:01-0500 Heart rate 61 /min PAM TROTTER MD [facility] 08-27-2023 13:01-0500 Respiratory rate 15 /min PAM TROTTER MD [facility] 08-27-2023 13:01-0500 Systolic Blood Pressure Non-Invasive 121 mm[Hg] PAM TROTTER MD [facility] 08-27-2023 12:55-0500 Heart rate 51 /min PAM TROTTER MD [facility] 08-27-2023 12:55-0500 Respiratory rate 19 /min PAM TROTTER MD [facility] 08-27-2023 12:45-0500 Body temperature 97.52 [degF] PAM TROTTER MD [facility] 08-27-2023 12:35-0500 Respiratory Rate - Anes 32 br/min PAM TROTTER MD [facility] 08-27-2023 12:30-0500 Respiratory Rate - Anes 10 br/min PAM TROTTER MD [facility] 08-27-2023 12:25-0500 Respiratory Rate - Anes 10 br/min PAM TROTTER MD [facility] 08-27-2023 10:13-0500 Body height 160 cm PAM TROTTER MD [facility] 08-27-2023 10:13-0500 Body temperature 97.52 [degF] PAM TROTTER MD [facility] 08-27-2023 10:13-0500 Body weight 75 kg PAM TROTTER MD [facility] 08-27-2023 10:13-0500 Heart rate 63 /min PAM TROTTER MD [facility] Encounters Encounter Date Encounter Type Care Provider Facility Start: 08-27-2023 End: 08-27-2023 ambulatory PAM TROTTER MD Facility:B Start: 08-27-2023 End: 08-27-2023 SAME DAY STAY PAM TROTTER MD [facility] Start: 08-13-2023 End: 08-14-2023 ambulatory PAM TROTTER MD Facility:[facility] Start: 07-29-2023 End: 07-30-2023 ambulatory PAM TROTTER MD Facility:A Start: 04-20-2023 End: 04-25-2023 ambulatory GUICHO MERCEDES MD Facility:A Start: 04-09-2023 Telephone encounter Charleen blankenship EXTENSION COURSE COORDINATOR - CHOIR ACCOMPANIST Work Phone: [facility] Procedures Date Procedure Procedure Detail Performing Clinician Colonoscopy PAM TROTTER MD Plan of Treatment Date Care Activity Detail Author Start: 2044 Zoster Vaccines (1 of 2) Zoste r Vaccines (1 of 2) [facility] Start: 05-04-2023 End: 05-04-2023 Patient encounter procedure 05/04/2023 7:50 AM EDT Office Visit [facility] [address] [place] [address] Charleen Blair, EXTENSION COURSE COORDINATOR - CHOIR ACCOMPANIST [address] [place] [address] [facility] Start: 04-30-2023 Influenza vaccination Influenza Vacc ine (#1) [facility] Start: 2015 Screening for malign ant neoplasm of cervix Pap Smear [facility] Start: 2013 DTaP/Tdap/Td Vaccine s (1 - Tdap) DTaP/Tdap/Td Vaccines (1 - Tdap) [facility] Start: 2012 Hepatitis C screening Hepatitis C Sc reening [facility] Start: 2006 Depression Screening Depression Scre ening [facility] Start: 1995 MMR Vaccines (1 of 1 - Standard series) MMR Vaccines (1 of 1 - Standard series) [facility] Start: 1995 Varicella vaccination Varicell a Vaccines (1 of 2 - 2-dose childhood series) [facility] Start: 01-08-1995 COVID-19 Vaccine (#1) COVID-19 Vacci ne (#1) [facility] Start: 1994 Hepatitis B Vaccines (1 of 3 - 3-dose series) Hepatitis B Vaccines (1 of 3 - 3-dose series) [facility] Start: 1994 HIV screening HIV Screening [facility] lady Immunizations Immunization Date Immunization Notes Care Provider Fa cilipili 07-06-2023 influenza virus vaccine, unspecified formulation PAM TROTTER MD [facility] Payers Date Payer Category Payer Unknown [id number] 2022 Unknown [employer] S [employer] [id number] 2022-Present [address] [place] [address] Commercial [id number] 1994 Unknown [id number] 1994 Unknown [id number] 1994 Unknown [id number] 1994 Unknown [id number] Social History Date Type Detail Facility [facility] smoking consumption unknown [facility] Start: 1994 Sex Assigned At Not on file S [facility] Gender identity Not on file [facility] Start: 04-20-2023 Tobacco smoking status Never s moked tobacco (finding) [facility] Sex Assigned At Female [facility] Functional Status Date Assessment Result Facility 08-27-2023 Functional Status Awake, Up to bathroom [facility] 08-27-2023 Functional Status bilateral knee high applied/on [facility] 08-27-2023 Functional Status Maintained Tejinder ll[facility] Mental Status Date Assessment Result Facility 08-27-2023 Mental Status Oriented x 4 [facility] 08-27-2023 Mental Status Tejinder [facility] Clinical Notes 04-05-2023 to 08-27-2023 Telephone Encounter - Cher Calderon - 04/09/2023 11:53 AM EDTTelephone Encounter - Cher Calderon - 04/09/2023 11:53 AM EDTTelephone Encounter - Cher Calderon - 04/09/2023 11:53 AM EDT Note Date & Type Note Facility 08-27-2023 Hospital Discharg e instructions Patient Education 08/27/2023 13:15:47 General Anesthesia, Adult, Care After General Anesthesia, Adult, Care After This sheet gives you information about how to care for yourself after your procedure. Your health care provider may also give you more specific instructions. If you have problems or questions, contact your health care provider. What can I expect after the procedure? After the procedure, the following side effects are common: Pain or discomfort at the IV site. Nausea. Vomiting. Sore throat. Trouble concentrating. Feeling cold or chills. Weak or tired. Sleepiness and fatigue. Soreness and body aches. These side effects can affect parts of the body that were not involved in surgery. Follow these instructions at home: For at least 24 hours after the procedure: Have a responsible adult stay with you. It is important to have someone help care for you until you are awake and alert. Rest as needed. Do not: ?Participate in activities in which you could fall or become injured. ?Drive. ?Use heavy machinery. ?Drink alcohol. ?Take sleeping pills or medicines that cause drowsiness. ?Make important decisions or sign legal documents. ?Take care of children on your own. Eating and drinking Follow any instructions from your health care provider about eating or drinking restrictions. When you feel hungry, start by eating small amounts of foods that are soft and easy to digest (bland), such as toast. Gradually return to your regular diet. Drink enough fluid to keep your urine pale yellow. If you vomit, rehydrate by drinking water, juice, or clear broth. General instructions If you have sleep apnea, surgery and certain medicines can increase your risk for breathing problems. Follow instructions from your health care provider about wearing your sleep device: ?Anytime you are sleeping, including during daytime naps. ?While taking prescription pain medicines, sleeping medicines, or medicines that make you drowsy. Return to your normal activities as told by your health care provider. Ask your health care provider what activities are safe for you. Take ueaj-oun-wbmtmlt and prescription medicines only as told by your health care provider. If you smoke, do not smoke without supervision. Keep all follow-up visits as told by your health care provider. This is important. Contact a health care provider if: You have nausea or vomiting that does not get better with medicine. You cannot eat or drink without vomiting. You have pain that does not get better with medicine. You are unable to pass urine. You develop a skin rash. You have a fever. You have redness around your IV site that gets worse. Get help right away if: You have difficulty breathing. You have chest pain. You have blood in your urine or stool, or you vomit blood. Summary After the procedure, it is common to have a sore throat or nausea. It is also common to feel tired. Have a responsible adult stay with you for the first 24 hours after general anesthesia. It is important to have someone help care for you until you are awake and alert. When you feel hungry, start by eating small amounts of foods that are soft and easy to digest (bland), such as toast. Gradually return to your regular diet. Drink enough fluid to keep your urine pale yellow. Return to your normal activities as told by your health care provider. Ask your health care provider what activities are safe for you. This information is not intended to replace advice given to you by your health care provider. Make sure you discuss any questions you have with your health care provider. Document Released: 11/22/2001 Document Revised: 08/19/2018 Document Reviewed: 04/01/2018 [employer] Patient Education 2020 [employer] 08/27/2023 13:15:43 Nausea and Vomiting, Adult Nausea and Vomiting, Adult Nausea is the feeling that you have an upset stomach or that you are about to vomit. Vomiting is when stomach contents are thrown up and out of the mouth as a result of nausea. Vomiting can make you feel weak and cause you to become dehydrated. Dehydration can make you feel tired and thirsty, cause you to have a dry mouth, and decrease how often you urinate. Older adults and people with other diseases or a weak disease-fighting system (immune system) are at higher risk for dehydration. It is important to treat your nausea and vomiting as told by your health care provider. Follow these instructions at home: Watch your symptoms for any changes. Tell your health care provider about them. Follow these instructions to care for yourself at home. Eating and drinking Take an oral rehydration solution (ORS). This is a drink that is sold at pharmacies and retail stores. Drink clear fluids slowly and in small amounts as you are able. Clear fluids include water, ice chips, low-calorie sports drinks, and fruit juice that has water added (diluted fruit juice). Eat bland, lvqn-vi-lfnwiq foods in small amounts as you are able. These foods include bananas, applesauce, rice, lean meats, toast, and crackers. Avoid fluids that contain a lot of sugar or caffeine, such as energy drinks, sports drinks, and soda. Avoid alcohol. Avoid spicy or fatty foods. General instructions Take xjii-iql-krhoeaa and prescription medicines only as told by your health care provider. Drink enough fluid to keep your urine pale yellow. Wash your hands often using soap and water. If soap and water are not available, use hand gear and spline grinder. Make sure that all people in your household wash their hands well and often. Rest at home while you recover. Watch your condition for any changes. Breathe slowly and deeply when you feel nauseated. Keep all follow-up visits as told by your health care provider. This is important. Contact a health care provider if: Your symptoms get worse. You have new symptoms. You have a fever. You cannot drink fluids without vomiting. Your nausea does not go away after 2 days. You feel light-headed or dizzy. You have a headache. You have muscle cramps. You have a rash. You have pain while urinating. Get help right away if: You have pain in your chest, neck, arm, or jaw. You feel extremely weak or you faint. You have persistent vomiting. You have vomit that is bright red or looks like black coffee grounds. You have bloody or black stools or stools that look like tar. You have a severe headache, a stiff neck, or both. You have severe pain, cramping, or bloating in your abdomen. You have difficulty breathing, or you are breathing very quickly. Your heart is beating very quickly. Your skin feels cold and clammy. You feel confused. You have signs of dehydration, such as: ?Dark urine, very little urine, or no urine. ?Cracked lips. ?Dry mouth. ?Sunken eyes. ?Sleepiness. ?Weakness. These symptoms may represent a serious problem that is an emergency. Do not wait to see if the symptoms will go away. Get medical help right away. Call your local emergency services (911 in the [place] Do not drive yourself to the hospital. Summary Nausea is the feeling that you have an upset stomach or that you are about to vomit. As nausea gets worse, it can lead to vomiting. Vomiting can make you feel weak and cause you to become dehydrated. Follow instructions from your health care provider about eating and drinking to prevent dehydration. Take upcv-uml-liwnhlz and prescription medicines only as told by your health care provider. Contact your health care provider if your symptoms get worse, or you have new symptoms. Keep all follow-up visits as told by your health care provider. This is important. This information is not intended to replace advice given to you by your health care provider. Make sure you discuss any questions you have with your health care provider. Document Released: 08/16/2006 Document Revised: 12/08/2019 Document Reviewed: 01/24/2019 [employer] Patient Education 2020 [employer] 08/27/2023 13:15:03 Endometrial Ablation, Care After Endometrial Ablation, Care After This sheet gives you information about how to care for yourself after your procedure. Your health care provider may also give you more specific instructions. If you have problems or questions, contact your health care provider. What can I expect after the procedure? After the procedure, it is common to have: A need to urinate more frequently than usual for the first 24 hours. Cramps similar to menstrual cramps. These may last for 1 2 days. Thin, watery vaginal discharge that is light pink or brown in color. This may last a few weeks. Discharge will be heavy for the first few days after your procedure. You may need to wear a sanitary pad. Nausea. Vaginal bleeding for 4 6 weeks after the procedure, as tissue healing occurs. Follow these instructions at home: Activity Do not drive for 24 hours if you were given amedicine to help you relax (sedative) during your procedure. Do not have sex or put anything into your vagina until your health care provider approves. Do not lift anything that is heavier than 10 lb (4.5 kg), or the limit that you are told, until your health care provider says that it is safe. Return to your normal activities as told by your health care provider. Ask your health care provider what activities are safe for you. General instructions Take eztw-fvt-gdyilgo and prescription medicines only as told by your health care provider. Do not take baths, swim, or use a hot tub until your health care provider approves. You will be able to take showers. Check your vaginal area every day for signs of infection. Check for: ?Redness, swelling, or pain. ?More discharge or blood, instead of less. ?Bad-smelling discharge. Keep all follow-up visits as told by your health care provider. This is important. Drink enough fluid to keep your urine pale yellow. Contact a health care provider if you have: Vaginal redness, swelling, or pain. Vaginal discharge or bleeding that gets worse instead of getting better. Bad-smelling vaginal discharge. A fever or chills. Trouble urinating. Get help right away if you have: Heavy vaginal bleeding. Severe cramps. Summary After endometrial ablation, it is normal to have thin, watery vaginal discharge that is light pink or brown in color. This may last a few weeks and may be heavier right after the procedure. Vaginal bleeding is also normal after the procedure and should get better with time. Check your vaginal area every day for signs of infection, such as bad-smelling discharge. Keep all follow-up visits as told by your health care provider. This is important. This information is not intended to replace advice given to you by your health care provider. Make sure you discuss any questions you have with your health care provider. Document Released: 06/28/2018 Document Revised: 12/07/2019 Document Reviewed: 06/28/2018 [employer] Patient Education 2020 [employer] 08/27/2023 11:52:28 8- Post Op SOIL CHECKER Minor Surgery What to Do After Your Gynecology Surgery This sheet will give you general information on what to do when you are home after surgery. However, you should always follow any specific instructions given to you by your surgeon. Pain Medication Please follow the directions on the label of your medication and use your discharge medication list provided by the hospital. Do not take this medication on an empty stomach. This may cause a stomachache. Use a stool softener or gentle laxative (milk of magnesia) if needed. Constipation is not uncommon while taking oral pain medication. Use less of any narcotic pain medication as soon as your pain allows. You may take xves-ewh-cupqrmr pain medication if you no longer need your prescribed pain medication. Jcgc-pnf-mvoavus pain medications are Tylenol (acetaminophen) or Advil (ibuprofen). Do not take Tylenol if you are still taking Freeburn or Percocet. They are the same type of medication. Too much acetaminophen can hurt your liver. Activity It is OK to use the stairs, but try to avoid them or take less trips right after surgery. After surgery, you may feel tired. Rest is important for healing. Slowly increase your activity level by walking and doing normal activities as you feel comfortable. Follow surgeon instructions on driving. You may not be able to drive for one to six weeks depending on what surgery and incisions you have. Do not drive while taking narcotic pain medication. They should be out of your system for 24 hours. Diet Eating smaller meals instead of three large meals is good. This may help with your appetite and nutrition. Good nutrition will help you heal. Follow diet instructions that you were taught after surgery. Infection Prevention Washing your hands is one of the best ways to prevent infection. Always wash your hands before and after touching your incision or dressing. Hands carry germs that can cause infections. Try not to touch your incision. Keep the Incision Clean Wear clean, loose-fitting clothes to prevent clothes from rubbing on the incision. Put clean sheets on your bed when you get home. Do not let other people or animals touch the incision. Showering You may start to shower 24 hours after your surgery. Use a clean washcloth and towel on your incision before you use it on any other area of your body. Adjust the shower spray to gentle and use warm water. Gently wash over your incision using antibacterial soap and water and pat it dry. Do not rub the incision. Do not soak or submerge in the bathtub or hot tub until your surgeon says it is OK. Wound Care When you go home, you may leave your incision(s) open to the air. Your incision(s) may be closed with sutures or soraya. If incision is closed with sutures under the skin, you do not need to have these removed as they will dissolve on their own. If incision is closed with soraya, the soraya will need to be removed. If your incision is horizontal (sideways), they need to be removed within three to seven days. If your incision is vertical (up and down), they need to be removed within 10 14 days. If you have thin white tape strips (Steri-Strips) over your incision, keep them dry. Do not remove them unless they begin curling up at the sides and are almost falling off or have been in place for seven days. If your incision begins coming apart, has drainage (thick, foul smelling, white, yellow, green, pink or red) with redness around the incision and feels warm to touch, call your surgeon. You may have an infection. Vaginal Care You may have drainage after surgery. Normal colors are watery, brown-black discharge. Vaginal spotting and bleeding are normal. However, if you are soaking two pads in one hour, that is not normal. Call your surgeon. No tampons or douching. NO SEXUAL INTERCOURSE FOR 2 WEEKS. Call Your Doctor If: Your pain is not controlled by pain medication. You have a fever of 100.4 degrees or higher. You have a lot of bleeding from the incision or a lot of vaginal bleeding (more than two pads per hour). You have bad stomach pain or you start throwing up. If you are unable to reach your doctor, go to the hospital. Follow Up If a follow-up appointment has not been made, please call your surgeon s office within a day. Let the office know if you have soraya and they will schedule them to be removed. Contact your surgeon for any specific problems or questions that you may have. Follow Up Care 08/02/2023 10:09:45 With:PAM TROTTER MD Address: [address] [place] [address] [address] [facility] [place] [address] [phone] When:Within 2 Week(s) [facility] 08-27-2023 Note Discharge Instructions Thank you for allowing [facility] to assist you with your healthcare needs. The following is important discharge information regarding your hospital visit. Your Care Team GUICHO MERCEDES MD Your Diagnosis Crohn's disease Family history of endometriosis Female infertility Postoperative pain What to do next Follow Up Appointments Follow Up with PAM TROTTER MD When In 2 weeks Where: [address] [facility] [address] [facility] [place] [address]- [phone] The Following Activity and Diet Have Been Ordered for You Discharge Activity - Ordered -- Lifting Restricted less than 10 pounds, for 2 weeks. nothing per vagina for 2-4 weeks, 08/27/23 13:12:00 EST Discharge Driving Restrictions - Ordered -- No driving until pain-free, 08/27/23 13:12:00 EST Discharge Return to Work, School, or Sports (Discharge Return to status) - Ordered -- within 2 weeks, May return to: work, 08/27/23 13:12:00 EST Discharge Diet - Ordered -- Follow the post-operative/post-procedure diet instructions provided by your physician's office., 08/27/23 13:12:00 EST The Following Equipment Has Been Ordered for You Discharge Home Equipment Discharge Wound Care - Ordered -- may remove steri strips in 7-10 days., 08/27/23 13:12:00 EST Allergies NKA Medications Please ask your primary doctor or pharmacist before taking any other medication not listed, including over the counter drugs, herbal medications, vitamins and or supplements as they may interact with your home medications. What How Much When Why Instructions Last Dose New acetaminophen (Tylenol Extra Strength 500 mg oral tablet) 1 tab(s) by mouth Every 4 hours Duration: 14 Days Refills: 1 Pickup at [facility] #[id number] New acetaminophen-oxyCODONE (Percocet 5 mg-325 mg oral tablet) 1 tab(s) by mouth Every 4 hours as needed for for pain Postoperative pain Duration: 7 Days Pickup at [facility] #[id number] New ibuprofen (ibuprofen 800 mg oral tablet) 1 tab(s) by mouth Every 8 hours Duration: 14 Days Pickup at [facility] #[id number] New ondansetron (Zofran 4 mg oral tablet) 1 tab(s) by mouth Every 6 hours as needed for Nausea/Vomiting Duration: 5 Days Pickup at [facility] #[id number] Unchanged cholecalciferol (Vitamin D3) 25 Microgram by mouth Once a day Unchanged dicyclomine (dicyclomine 20 mg oral tablet) 1 tab(s) by mouth Three (3) times a day Unchanged multivitamin, ( Multivitamins) 1 tab(s) by mouth Once a day Unchanged omeprazole (omeprazole 20 mg oral delayed release capsule) 1 cap by mouth Two (2) times daily before meals Unchanged ubiquinone (CoQ-10 with Black Pepper Extract 400 mg oral capsule) 1 cap by mouth Every day Unchanged ustekinumab (Stelara PFS 90 mg/ mL subcutaneous solution) 1 Milliliter Subcutaneous Every 8 weeks Pharmacy Information [facility] #[id number]: [address], [place] [id number] [phone] Please take this list to your next doctor s visit. Bring all medications you take, including over the counter medications, herbals and other supplements with you to your doctor s visit. Patients and families are reminded to discard old lists and to update any records with all medication providers or retail pharmacies. Education Materials General Anesthesia, Adult, Care After This sheet gives you information about how to care for yourself after your procedure. Your health care provider may also give you more specific instructions. If you have problems or questions, contact your health care provider. What can I expect after the procedure? After the procedure, the following side effects are common: Pain or discomfort at the IV site. Nausea. Vomiting. Sore throat. Trouble concentrating. Feeling cold or chills. Weak or tired. Sleepiness and fatigue. Soreness and body aches. These side effects can affect parts of the body that were not involved in surgery. Follow these instructions at home: For at least 24 hours after the procedure: Have a responsible adult stay with you. It is important to have someone help care for you until you are awake and alert. Rest as needed. Do not: ? Participate in activities in which you could fall or become injured. ? Drive. ? Use heavy machinery. ? Drink alcohol. ? Take sleeping pills or medicines that cause drowsiness. ? Make important decisions or sign legal documents. ? Take care of children on your own. Eating and drinking Follow any instructions from your health care provider about eating or drinking restrictions. When you feel hungry, start by eating small amounts of foods that are soft and easy to digest (bland), such as toast. Gradually return to your regular diet. Drink enough fluid to keep your urine pale yellow. If you vomit, rehydrate by drinking water, juice, or clear broth. General instructions If you have sleep apnea, surgery and certain medicines can increase your risk for breathing problems. Follow instructions from your health care provider about wearing your sleep device: ? Anytime you are sleeping, including during daytime naps. ? While taking prescription pain medicines, sleeping medicines, or medicines that make you drowsy. Return to your normal activities as told by your health care provider. Ask your health care provider what activities are safe for you. Take xxra-nuv-jeihljc and prescription medicines only as told by your health care provider. If you smoke, do not smoke without supervision. Keep all follow-up visits as told by your health care provider. This is important. Contact a health care provider if: You have nausea or vomiting that does not get better with medicine. You cannot eat or drink without vomiting. You have pain that does not get better with medicine. You are unable to pass urine. You develop a skin rash. You have a fever. You have redness around your IV site that gets worse. Get help right away if: You have difficulty breathing. You have chest pain. You have blood in your urine or stool, or you vomit blood. Summary After the procedure, it is common to have a sore throat or nausea. It is also common to feel tired. Have a responsible adult stay with you for the first 24 hours after general anesthesia. It is important to have someone help care for you until you are awake and alert. When you feel hungry, start by eating small amounts of foods that are soft and easy to digest (bland), such as toast. Gradually return to your regular diet. Drink enough fluid to keep your urine pale yellow. Return to your normal activities as told by your health care provider. Ask your health care provider what activities are safe for you. This information is not intended to replace advice given to you by your health care provider. Make sure you discuss any questions you have with your health care provider. Document Released: 11/22/2001 Document Revised: 08/19/2018 Document Reviewed: 04/01/2018 [employer] Patient Education 2020 [employer] Nausea and Vomiting, Adult Nausea is the feeling that you have an upset stomach or that you are about to vomit. Vomiting is when stomach contents are thrown up and out of the mouth as a result of nausea. Vomiting can make you feel weak and cause you to become dehydrated. Dehydration can make you feel tired and thirsty, cause you to have a dry mouth, and decrease how often you urinate. Older adults and people with other diseases or a weak disease-fighting system (immune system) are at higher risk for dehydration. It is important to treat your nausea and vomiting as told by your health care provider. Follow these instructions at home: Watch your symptoms for any changes. Tell your health care provider about them. Follow these instructions to care for yourself at home. Eating and drinking Take an oral rehydration solution (ORS). This is a drink that is sold at pharmacies and retail stores. Drink clear fluids slowly and in small amounts as you are able. Clear fluids include water, ice chips, low-calorie sports drinks, and fruit juice that has water added (diluted fruit juice). Eat bland, vjgp-yk-vtmyzn foods in small amounts as you are able. These foods include bananas, applesauce, rice, lean meats, toast, and crackers. Avoid fluids that contain a lot of sugar or caffeine, such as energy drinks, sports drinks, and soda. Avoid alcohol. Avoid spicy or fatty foods. General instructions Take gsyj-vpn-nhwojkz and prescription medicines only as told by your health care provider. Drink enough fluid to keep your urine pale yellow. Wash your hands often using soap and water. If soap and water are not available, use hand gear and spline grinder. Make sure that all people in your household wash their hands well and often. Rest at home while you recover. Watch your condition for any changes. Breathe slowly and deeply when you feel nauseated. Keep all follow-up visits as told by your health care provider. This is important. Contact a health care provider if: Your symptoms get worse. You have new symptoms. You have a fever. You cannot drink fluids without vomiting. Your nausea does not go away after 2 days. You feel light-headed or dizzy. You have a headache. You have muscle cramps. You have a rash. You have pain while urinating. Get help right away if: You have pain in your chest, neck, arm, or jaw. You feel extremely weak or you faint. You have persistent vomiting. You have vomit that is bright red or looks like black coffee grounds. You have bloody or black stools or stools that look like tar. You have a severe headache, a stiff neck, or both. You have severe pain, cramping, or bloating in your abdomen. You have difficulty breathing, or you are breathing very quickly. Your heart is beating very quickly. Your skin feels cold and clammy. You feel confused. You have signs of dehydration, such as: ? Dark urine, very little urine, or no urine. ? Cracked lips. ? Dry mouth. ? Sunken eyes. ? Sleepiness. ? Weakness. These symptoms may represent a serious problem that is an emergency. Do not wait to see if the symptoms will go away. Get medical help right away. Call your local emergency services (911 in the [place] Do not drive yourself to the hospital. Summary Nausea is the feeling that you have an upset stomach or that you are about to vomit. As nausea gets worse, it can lead to vomiting. Vomiting can make you feel weak and cause you to become dehydrated. Follow instructions from your health care provider about eating and drinking to prevent dehydration. Take pedf-dzq-avzrfck and prescription medicines only as told by your health care provider. Contact your health care provider if your symptoms get worse, or you have new symptoms. Keep all follow-up visits as told by your health care provider. This is important. This information is not intended to replace advice given to you by your health care provider. Make sure you discuss any questions you have with your health care provider. Document Released: 08/16/2006 Document Revised: 12/08/2019 Document Reviewed: 01/24/2019 [employer] Patient Education 2020 [employer] Endometrial Ablation, Care After This sheet gives you information about how to care for yourself after your procedure. Your health care provider may also give you more specific instructions. If you have problems or questions, contact your health care provider. What can I expect after the procedure? After the procedure, it is common to have: A need to urinate more frequently than usual for the first 24 hours. Cramps similar to menstrual cramps. These may last for 1 2 days. Thin, watery vaginal discharge that is light pink or brown in color. This may last a few weeks. Discharge will be heavy for the first few days after your procedure. You may need to wear a sanitary pad. Nausea. Vaginal bleeding for 4 6 weeks after the procedure, as tissue healing occurs. Follow these instructions at home: Activity Do not drive for 24 hours if you were given amedicine to help you relax (sedative) during your procedure. Do not have sex or put anything into your vagina until your health care provider approves. Do not lift anything that is heavier than 10 lb (4.5 kg), or the limit that you are told, until your health care provider says that it is safe. Return to your normal activities as told by your health care provider. Ask your health care provider what activities are safe for you. General instructions Take oqif-lya-ulaeato and prescription medicines only as told by your health care provider. Do not take baths, swim, or use a hot tub until your health care provider approves. You will be able to take showers. Check your vaginal area every day for signs of infection. Check for: ? Redness, swelling, or pain. ? More discharge or blood, instead of less. ? Bad-smelling discharge. Keep all follow-up visits as told by your health care provider. This is important. Drink enough fluid to keep your urine pale yellow. Contact a health care provider if you have: Vaginal redness, swelling, or pain. Vaginal discharge or bleeding that gets worse instead of getting better. Bad-smelling vaginal discharge. A fever or chills. Trouble urinating. Get help right away if you have: Heavy vaginal bleeding. Severe cramps. Summary After endometrial ablation, it is normal to have thin, watery vaginal discharge that is light pink or brown in color. This may last a few weeks and may be heavier right after the procedure. Vaginal bleeding is also normal after the procedure and should get better with time. Check your vaginal area every day for signs of infection, such as bad-smelling discharge. Keep all follow-up visits as told by your health care provider. This is important. This information is not intended to replace advice given to you by your health care provider. Make sure you discuss any questions you have with your health care provider. Document Released: 06/28/2018 Document Revised: 12/07/2019 Document Reviewed: 06/28/2018 [employer] Patient Education 2020 [employer] What to Do After Your Gynecology Surgery This sheet will give you general information on what to do when you are home after surgery. However, you should always follow any specific instructions given to you by your surgeon. Pain Medication Please follow the directions on the label of your medication and use your discharge medication list provided by the hospital. Do not take this medication on an empty stomach. This may cause a stomachache. Use a stool softener or gentle laxative (milk of magnesia) if needed. Constipation is not uncommon while taking oral pain medication. Use less of any narcotic pain medication as soon as your pain allows. You may take vwin-ktk-qpbdxyr pain medication if you no longer need your prescribed pain medication. Hiog-gyf-yrtnzfy pain medications are Tylenol (acetaminophen) or Advil (ibuprofen). Do not take Tylenol if you are still taking Freeburn or Percocet. They are the same type of medication. Too much acetaminophen can hurt your liver. Activity It is OK to use the stairs, but try to avoid them or take less trips right after surgery. After surgery, you may feel tired. Rest is important for healing. Slowly increase your activity level by walking and doing normal activities as you feel comfortable. Follow surgeon instructions on driving. You may not be able to drive for one to six weeks depending on what surgery and incisions you have. Do not drive while taking narcotic pain medication. They should be out of your system for 24 hours. Diet Eating smaller meals instead of three large meals is good. This may help with your appetite and nutrition. Good nutrition will help you heal. Follow diet instructions that you were taught after surgery. Infection Prevention Washing your hands is one of the best ways to prevent infection. Always wash your hands before and after touching your incision or dressing. Hands carry germs that can cause infections. Try not to touch your incision. Keep the Incision Clean Wear clean, loose-fitting clothes to prevent clothes from rubbing on the incision. Put clean sheets on your bed when you get home. Do not let other people or animals touch the incision. Showering You may start to shower 24 hours after your surgery. Use a clean washcloth and towel on your incision before you use it on any other area of your body. Adjust the shower spray to gentle and use warm water. Gently wash over your incision using antibacterial soap and water and pat it dry. Do not rub the incision. Do not soak or submerge in the bathtub or hot tub until your surgeon says it is OK. Wound Care When you go home, you may leave your incision(s) open to the air. Your incision(s) may be closed with sutures or soraya. If incision is closed with sutures under the skin, you do not need to have these removed as they will dissolve on their own. If incision is closed with soraya, the soraya will need to be removed. If your incision is horizontal (sideways), they need to be removed within three to seven days. If your incision is vertical (up and down), they need to be removed within 10 14 days. If you have thin white tape strips (Steri-Strips) over your incision, keep them dry. Do not remove them unless they begin curling up at the sides and are almost falling off or have been in place for seven days. If your incision begins coming apart, has drainage (thick, foul smelling, white, yellow, green, pink or red) with redness around the incision and feels warm to touch, call your surgeon. You may have an infection. Vaginal Care You may have drainage after surgery. Normal colors are watery, brown-black discharge. Vaginal spotting and bleeding are normal. However, if you are soaking two pads in one hour, that is not normal. Call your surgeon. No tampons or douching. NO SEXUAL INTERCOURSE FOR 2 WEEKS. Call Your Doctor If: Your pain is not controlled by pain medication. You have a fever of 100.4 degrees or higher. You have a lot of bleeding from the incision or a lot of vaginal bleeding (more than two pads per hour). You have bad stomach pain or you start throwing up. If you are unable to reach your doctor, go to the hospital. Follow Up If a follow-up appointment has not been made, please call your surgeon s office within a day. Let the office know if you have soraya and they will schedule them to be removed. Contact your surgeon for any specific problems or questions that you may have. Additional Information VACCINATE! IT SAVES LIVES! Members of the community who have not yet received the COVID-19 vaccine and would like to receive it can visit one of [facility] vaccine clinics. There are many vaccine clinic locations within the [facility]. For locations and available times, please visit [email or web address].o hio.gov/. It is important to note that some COVID mobile vaccine clinics are held outdoors and may be canceled in rainy or stormy conditions. To learn more about pediatric vaccinations (ages 5-11), we invite you to visit the [facility] webpage. [email or web address].org/p [email or web address]-Pfocuqxdmoz-Freq otwaeg-[email or web address]-Hilgrishi.html To learn more about the COVID-19 vaccine, we invite you to visit the CDC website for a list of frequently asked questions.https://www.cdc.gov/co ronavirus/2019-ncov/vaccines/faq .html [facility] Patient Portal Access Instructions: Stay connected with your healthcare team and access your personal medical information anytime with the [facility] Patient Portal. Please follow the directions below to create your [facility] account: 1.Access the email account you provided upon registration to the hospital/physician office.2.Look for an invitation email from [facility].3.Open the email and access the invitation link: Accept Invitation to [email or web address].4.Fill in the required barnes to create your account. To access your account, visit [email or web address]. Click the blue button labeled Access Patient Portal and then log in with the username and password that you created in the steps above. You will be able to view your test results, lab results, a summary of your visits, upcoming appointments and more. There is also a convenient messaging option where you can send secure messages to your provider. In addition, you will have the ability to download any documents or summaries to your computer and/or send the information securely to a physician. Remember that your healthcare information is confidential, so carefully consider who you will allow to register on the [email or web address] Patient Portal for access to your information. You can also access the [email or web address] Patient Portal on the [employer] nancie. Simply click on Patient Portal and then log into your account. If you would like to receive a full copy of your medical records, please contact the [facility] Medical Records Department by calling [phone], Wednesday through Wednesday between 8 a.m. and 4:30 p.m. HOW TO SAFELY DISPOSE OF PRESCRIPTION MEDICATIONS Please use one of the following methods to safely dispose of your unused medications. 1.Use a drug disposal kit: the drug disposal pouch allows you to safely discard your old and unused drugs. Ask your nurse to give you one when you are discharged.2.Visit a local take-back location: Many local pharmacies and police departments have programs that collect old and unwanted prescription drugs. Call your local pharmacy or go to http://Valentin Uzhun.[employer]/4U5Sb4g to find one close to you.3.Make use of household items: Use cat litter or old coffee grounds to dispose medications if other options are not available. Mix your drugs with these household products, seal them in an airtight container and throw it into the garbage. Call [facility]: [phone] to be sure your drugs can be disposed of in this way. Some medicines may require a different approach.4.Never flush your medications down the toilet. IF YOU HAVE BEEN PRESCRIBED AN OPIOID FOR PAIN If you have been prescribed an opioid (such as hydrocodone, oxycodone or morphine), it is critical to understand the possible side effects and risks of opioid pain medications. Even when taken as directed, opioids can have several side effects including: Tolerance, meaning you might need to take more of a medication for the same pain relief. Nausea, vomiting and/or constipation. Sleepiness, dizziness, dry mouth, confusion, depression or itching. Physical dependence, meaning you have withdrawal symptoms when a medication is stopped, can develop within a few days. KNOW YOUR RESPONSIBILITIES It is important to know exactly how much and how often to take the opioid pain medications you are prescribed. Never take opioids in higher amounts or more often than prescribed. Do not combine opioids with alcohol or other drugs that cause drowsiness, such as benzodiazepines, also known as benzos, including diazepam and alprazolam, muscle relaxants or sleep aids. Never sell or share prescription opioids. This is illegal. Store opioids in a secure place and out of reach of others (including children, family, friends and visitors). The last page of this document has been signed and retained as a CHART COPY. Signatures Patient Education Materials General Anesthesia, Adult, Care After Nausea and Vomiting, Adult Endometrial Ablation, Care After 8- Post Op SOIL CHECKER Minor Surgery Medication Leaflets My discharge plan and instructions have been reviewed and explained to me and I,TARUN BRAGA understand my current condition and have read and understand these discharge instructions. I have received a written copy of the plan/instructions. If I have questions, I am aware that I should contact my doctor. Patient/Pleater Hand Signature: Date/Time: Relationship to Patient: Witness Name/Signature: Date/Time: [facility] 08-27-2023 Note Date of Service 08/27/23 History and Physical Update I have examined the patient; reviewed the History and Physical and there are no changes to the History and Physical from 07/29/23 unless noted below. History and Physical 28 yo female here for diagnostic laparoscopy with possible lysis of adhesions and fulguration of endometiosis with chromopertubation for pelvic pain, history of chrons, infertility. No new changes. All questions answered to patient stated satisfaction. Reviewed postop instructions. Pam Trotter MD Digitally Signed by PAM TROTTER MD on 08/27/2023 11:50 AM [facility] 08-27-2023 Anesthesiology Consult note Patient: TARUN BRAGA Age: 28 years Sex: Female : 1995 Associated Diagnoses: None Author: CHELLY BUSTAMANTE APRN-HUMAN SERVICES PROGRAM SPECIALIST Preoperative Information Time of last food or liquid consumption: 08/27/2023 00:00:00 Anesthesia history Patient's history: negative. Family's history: negative. Review of Systems Ear/Nose/Mouth/Throat: Negative. Respiratory: Negative. Cardiovascular: Negative. Gastrointestinal: Reflux, obese. Genitourinary: Negative. Endocrine: Negative. Musculoskeletal: Negative. Integumentary: Negative. Neurologic: Negative. Health Status Allergies: Allergic Reactions (Selected) NKA, Allergies (1) ActiveReaction NKANone Documented Current medications: (Selected) Inpatient Medications Ordered NS 1000 mL: 100 mL/hr, Intravenous, Stop: 08/28/23 17:59:00 EST Documented Medications Documented CoQ-10 with Black Pepper Extract 400 mg oral capsule: 1 cap, Oral, Daily, 0 Refill(s) Multivitamins: 1 tab(s), Oral, qDay, 0 Refill(s) Stelara PFS 90 mg/mL subcutaneous solution: 90 mg, 1 mL, Subcutaneous, q8wk, 1 mL, 0 Refill(s) Vitamin D3: 25 mcg, Oral, qDay, 0 Refill(s) dicyclomine 20 mg oral tablet: 20 mg, 1 tab(s), Oral, TID omeprazole 20 mg oral delayed release capsule: 20 mg, 1 cap(s), Oral, BIDAC, 0 Refill(s), Medications (1) Active Scheduled: (0) Continuous: (1) NS (0.9% nacl) 1000 mL 1,000 mL, Intravenous, 100 mL/hr PRN: (0) Problem list: Medical Crohn disease / SNOMED CT 23078306 / Confirmed Wellness examination / SNOMED CT 532982075 / Confirmed Weight gain / SNOMED CT 59653776 / Confirmed, Active Problems (4) Crohn disease GERD (gastroesophageal reflux disease) Weight gain Wellness examination Histories Past Medical History: Resolved ([id number]): Onset on 07/18/2018 at 23 years. Resolved in 2019 at 23 years. ([id number]): Onset on 07/19/2017 at 22 years. Resolved in 2018 at 22 years. Family History: Anxiety Sister Hypertension Father Heart disease Father Alcoholism Father Depression Father Procedure history: Colonoscopy ([id number]). 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 Substance Abuse 08/27/2023 Use: Never Tobacco 08/27/2023 Tobacco Use: Never (less than 100 in l Exercise 04/20/2023 Exercise type: Walking Times per week: 5-6 times/week Home/Environment 08/27/2023 Living situation: Home/Independent Domestic Concerns None Primary Veterinary Medicine Scientist: Self Current Home Treatments None Special Services and Community Resources None Guardian(s) Information: Suzy Marital Status of Patient if Patient Independent Adult: Nutrition/Health 08/27/2023 Type of diet: Regular, no seeds Caffeine intake amount: None Appetite Good Eating Difficulties None Sexual 08/27/2023 Sexually active: Yes Self described orientation: Straight or heterosexual . Physical Examination Vital Signs 08/27/2023 10:13 EST Temperature Temporal Artery 36.4 DegC Peripheral Pulse Rate 63 bpm Respiratory Rate 20 br/min Systolic Blood Pressure Non-Invasive 124 mmHg Diastolic Blood Pressure Non-Invasive 81 mmHg Vital Signs(last 24 hrs) Last Charted Resp Rate 20 br/min (AUG 27 10:13) TRM704 mmHg (AUG 27 10:13) DBP81 mmHg (AUG 27 10:13) Measurements from flowsheet : Measurements 08/27/2023 10:13 EST Height 160 cm Admission Weight 75 kg Oneco Body Weight 52.38 kg Admission Body Mass Index 29.3 m2 Pain assessment: Pain Assessment 08/27/2023 10:13 EST Primary Pain Intensity 0 Pain Scale Type 0-10 Pain scale . General: Alert and oriented. Airway: Normal temporomandibular joint mobility. Head: Normocephalic. Dentition Evaluation: Own teeth. Neck: Supple. Respiratory: Lungs are clear to auscultation. Cardiovascular: Normal rate. Heart Sounds: Normal. Gastrointestinal: Soft. Musculoskeletal Normal range of motion. Integumentary: Intact. Neurologic: Alert, Oriented. Review / Management Results review: No qualifying data available , Lab results 08/27/2023 10:26 EST SN - Preop - CTm Pt in SDS Room 08/27/2023 10:03 SN - Preop - CTm Pt Ready for OR/Proced 08/27/2023 10:26 08/27/2023 10:26 EST Preop Nasal Swab Povidone-Iodine CHG Skin Prep Completed for Eligible Surgery 08/27/2023 10:21 EST Antecubital Right 08/27/2023 20 gauge Peripheral IV Activity: Insert new site Peripheral IV Dressing Condition: Clean, Dry, Intact Peripheral IV Dressing Activity: Applied Peripheral IV Line Status/Patency: Flushes easily Peripheral IV Site Condition: No complications Peripheral IV Equipment: Extension set Peripheral IV Number of Attempts: 1 Sodium Chloride 0.9% Begin Bag 1,000 mL mL 08/27/2023 10:13 EST Height 160 cm Admission Weight 75 kg Oneco Body Weight 52.38 kg Admission Body Mass Index 29.3 m2 Temperature Temporal Artery 36.4 DegC Peripheral Pulse Rate 63 bpm Respiratory Rate 20 br/min Systolic Blood Pressure Non-Invasive 124 mmHg Diastolic Blood Pressure Non-Invasive 81 mmHg Primary Pain Intensity 0 Pain Scale Type 0-10 Pain scale Heart Rhythm Regular Respirations Unlabored Respiratory Pattern Regular Oxygen Saturation 100 % Abdomen Description Non-distended, Symmetric Abdomen Palpation Non-Tender Bowel Sounds All Quadrants Present Urinary Elimination Voiding, no difficulties Skin Temperature Warm Skin Description Normal for ethnicity Skin Integrity Intact Characteristics of Speech Clear Level of Consciousness Alert Strength All Extremities Strong Tone All Extremities Normal Sensation All Extremities Intact Affect/Behavior Appropriate, Calm, Cooperative Orientation Oriented x 4 Activity Status ADL Awake, Resting Standard Safety ID band on, Call device within reach, Bed in low position, Wheels locked, Upper/Half-Length side-rails up, Phone within reach, personal items within reach, Visitor at bedside, Safety level maintained 08/27/2023 10:12 EST Allergies Yes Consent Form Signed Yes Patient Dressed In Hospital gown CHG Preoperative Wash/Wipe Night before procedure, Day of procedure History & Physical On Chart Yes Belongings At Bedside Pants, Shirt, Shoes, Socks, Undergarments NPO Status Maintained Patient ID Band on and Verified Yes Implants Verified Yes Pacemaker/AICD Verified Yes Site Verified by Patient/Family Yes Blood Consent Signed Yes Last Fluid Intake 08/27/2023 6:30 Last Food Intake 08/26/2023 16:30 Last Void 08/27/2023 9:50 08/27/2023 10:11 EST Designated Person #1 We May Share LAURA Barney [phone] Designated Person #1 Relationship Spouse Privacy Restrictions Requested None Status No, per patient Sensory Deficits None Sleep Apnea Snore No Sleep Apnea Tired No Sleep Apnea Obstruction No Sleep Apnea Pressure No Sleep Apnea BMI No Sleep Apnea Age No Sleep Apnea Neck No Sleep Apnea Gender No Sleep Apnea Score 0 Diagnosed With Sleep Apnea No Advanced Directives No - refuses information Infectious Disease Symptoms Patient states no symptoms Infectious Disease Recent Exposure No Alcohol and Drug Use No Employee of Institutional Living No Health Care Employee No History of Exposure to TB No History of Positive Chest X-Ray for TB No History of Positive TB Skin Test No Homeless No Known Immunosuppression No Recent Immigrant No Resident of Institutional Living No Bloody Sputum No Fatigue No Fever No Loss of Appetite No Night Sweats No Persistent Cough > 3 Weeks No Weight Loss No Pre-Op Patient Education NPO after midnight, No makeup, No jewelry, Responsible Alliance Party, Aware of surgery location, Pre-op education done, 1 bottle CHG wash with instructions given, Instructed to take ordered medications, SSI prevention handout given SN - Preprocedure Comments Spoke with patient, Verbalizes/Nonverbally indicates understanding, Other: Omeprazole Barriers to Learning None evident Teaching Method Explanation, Printed materials Preferred Spoken Language Lao Preferred Written Language Lao Teaching Evaluation No further teaching needed Safety Brochure Information Reviewed [facility] View[facility] No Information Given by Patient Patient's Current Physicians Patient's Current Physicians Discharge To, Anticipated Home independently Prev Test Positive/Diagnosis w/COVID-19 Yes Previous COVID-19 Positive Date 2021 Current Quarantine/Isolated any Illness No Any Contact with Sick Animals/Birds No Traveled Anywhere in Last 30 Days No Lost Weight Unintentionally Recently No Eat Poorly Due to Decreased Appetite No Total MST Score 0 No Personal Devices, Patient Valuables None Anesthesia/Transfusions Prior anesthesia Admission Note-Nursing Same Day Patient History 08/27/2023 10:05 EST Test Urine Negative test (u) int test (u) int QC PRGUN Negative QC PRGUP Positive . Assessment and Plan [place] [employer] Anesthesiologists (ASA) physical status classification: Class II. Anesthetic Preoperative Plan Premedication: intravenous. Anesthetic technique: General. Induction: intravenously. Maintenance airway: Oral endotracheal tube. Postoperative pain management: Per surgeon. Risks discussed: nausea, vomiting, sore throat. Informed consent: signed by patient. Digitally Signed by CHELLY BUSTAMANTE on 08/27/2023 11:44 AM [facility] 04-09-2023 Telephone encount er Note Name of caller: TARUN Relation to patient: patient Contact phone number: [phone] Appointment scheduled with: CHARLEEN BLAIR Appointment date & time: 05/04/23 @ 7:50 AM Reason for visit (are you having any symptoms) : Low blood pressure, unexpected weight gain Transportation issues/ concerns: NO Special accommodations? ( wheel chair, etc) : NO Current medications: STELARA Any refills need: NO Any chronic conditions the provider should be aware of: CHRON'S, 14 WEEKS [facility] 04-09-2023 Telephone encount er Note In order to comply with the No Surprises Act, [employer] is providing you with the following attachments. Any Good Cathy Estimate that may be provided are based on the services you are scheduled to receive. During your visit, there may be additional services required in order for the provider to complete your plan of care. DECLINED [facility] 04-09-2023 Miscellaneous Notes Formattin g of this note might be different from the original. In order to comply with the No Surprises Act, [employer] is providing you with the following attachments. Any Good Cathy Estimate that may be provided are based on the services you are scheduled to receive. During your visit, there may be additional services required in order for the provider to complete your plan of care. DECLINED documented in this encounter [facility] 04-09-2023 Miscellaneous Notes Formattin g of this note might be different from the original. Name of caller: TARUN Relation to patient: patient Contact phone number: [phone] Appointment scheduled with: CHARLEEN BLAIR Appointment date & time: 05/04/23 @ 7:50 AM Reason for visit (are you having any symptoms) : Low blood pressure, unexpected weight gain Transportation issues/ concerns: NO Special accommodations? ( wheel chair, etc) : NO Current medications: STELARA Any refills need: NO Any chronic conditions the provider should be aware of: CHRON'S, 14 WEEKS documented in this encounter [facility] 04-05-2023 Telephone encount er Note PATIENT SUBMITTED ONLINE APPOINTMENT REQUEST FOR A PCP APPOINTMENT. SPOKE TO PATIENT AND GOT SOME INFORMATION BUT SHE HAD TO GET OFF THE LINE AND STATES SHE WILL C/B. OK TO SCHEDULE WITH ANY PROVIDER WHEN PATIENT CALLS BACK. FirstName : Tarun LastName : OMI Pronouns : PronounsOther : Email : [email or web address] Phone : [phone] Birthdate : 1995 12:00:00 AM BestTimeToCallBack : Afternoon AppointmentDate : Kirk PhysicianRequested : Symptoms : Weight gain, low blood pressure OptIn : False [facility] 04-05-2023 Miscellaneous Notes Formattin g of this note might be different from the original. PATIENT SUBMITTED ONLINE APPOINTMENT REQUEST FOR A PCP APPOINTMENT. SPOKE TO PATIENT AND GOT SOME INFORMATION BUT SHE HAD TO GET OFF THE LINE AND STATES SHE WILL C/B. OK TO SCHEDULE WITH ANY PROVIDER WHEN PATIENT CALLS BACK. FirstName : Tarun LastName : OMI Pronouns : PronounsOther : Email : [email or web address] Phone : [phone] Birthdate : 1995 12:00:00 AM BestTimeToCallBack : Afternoon AppointmentDate : Kirk PhysicianRequested : Symptoms : Weight gain, low blood pressure OptIn : False documented in this encounter [facility] Evaluation + Plan note No data available for this section [facility] Summary Purpose Family History No Family History Records FoundNo Family History Records Found No data available for this section No Family History Records Found Advance Directives No Advanced Directives Records FoundNo Advanced Directives Records FoundNo Advanced Directives Records Found Additional Source Comments INFORMATION SOURCE (unrecogn ized section and content) DATE CREATED AUTHOR AUTHOR'S ORGANIZ ATION 04/10/2023 [facility] DATE CREATED AUTHOR AUTHOR'S ORGANIZ ATION 09/02/2023 [facility] ([place]) Reason for Visit (unrecogniz ed section and content) Reason Onset Date Comments NO SURPRISE ACT 04/09/2023 Reason Onset Date Comments New Patient 04/09/2023 Patient Care team informatio n (unrecognized section and content) Care Team Personnel Name: GUICHO MERCEDES MD Position: P4 Physician - Primary Care Member Role: Primary Care Physician Address: Address: [address] [place], [place] [address] Name: YUE ALEMAN DO Member Role: Business Development Address: Address: [address] [place] [address]- [place] Name: MEHNAZ CEDILLO MD Position: OB Physician Member Role: OBGYN Address: Address: [address] [place], [place] [address] Care Team Related Persons Name: SUZY BARNEY FOR RECORDS PERTAINING TO PATIENTS WHO ARE OR HAVE BEEN ENROLLED IN A CHEMICAL DEPENDENCY/SUBSTANCEABUSE PROGRAM, SOME INFORMATION MAY BE OMITTED. This clinical summary was aggregated from multiple sources. Caution should be exercised in using it in the provision of clinical care. This summary normalizes information from multiple sources, and as a consequence, information in this document may materially change the coding, format and clinical context of patient data. In addition, data may be omitted in some cases. CLINICAL DECISIONS SHOULD BE BASED ON THE PRIMARY CLINICAL RECORDS. [employer] provides no warranty or guarantee of the accuracy or completeness of information in this document.
== END 2023-10-01 13:24 | disposition home or self-care (01) ==
LOC: EN 10:44 → AC 10:44
PROVIDERS: Anesthesiology; Visit Provider Internal Medicine Gastroenterology
PROC: 0DJD8ZZ Inspection of Lower Intestinal Tract, Via Natural or Artificial Opening Endoscopic (ICD-10-PCS; CPT 45378; principal; 2023-10-01 11:55)
DX: K29.50 Unspecified chronic gastritis without bleeding (principal); K51.30 Ulcerative (chronic) rectosigmoiditis without complications; K21.9 Gastro-esophageal reflux disease without esophagitis; K63.89 Other specified diseases of intestine; Z79.899 Other long term (current) drug therapy
CPT/HCPCS: 43239; 45380; 81025; 88305; 88342; J7120; J2405

== ENCOUNTER → 2023-11-06 | Outpatient (CLI) | payer BC, SELFPAY ==
--- OUTSIDE RECORDS SUMMARY | 2023-11-06 08:11 | XMS RPT_ITS | CCD ---
Author Name Unknown Address [address] [place] [address] Organization [facility] Care Team Providers Care Retail Account Executive Name Role Phone Unavailable Primary Care Provider GUICHO Crowell MD Primary Care Physician PAM ISAACS MD Attending Unavailable GUICHO MERCEDES MD Primary Care Unavailable PAM ISAACS MD Attending Unavailable GUICHO MERCEDES MD Primary Care Unavailable PAM ISAACS MD Attending Unavailable GUICHO MERCEDES MD Primary Care Unavailable PAM ISAACS MD Consulting Unavailable GUICHO MERCEDES MD Primary [...] 1 Refill(s), 09/24/23 11:51:00 AM EST, Pharmacy: [facility] #[id number], 160, cm, 08/27/23 10:15:00 EST, Height, kg, [...] day(s), # 12 tab(s), 0 Refill(s), Pharmacy: [facility] #[id number], Postoperative pain, 160, cm, 08/27/23 10:15:00 EST, [...] 0 Refill(s), 09/10/23 11:51:00 AM EST, Pharmacy: [facility] #[id number], 160, cm, 08/27/23 10:15:00 EST, Height, kg, [...] 0 Refill(s), 09/01/23 11:51:00 AM EST, Pharmacy: [facility] #[id number], 160, cm, 08/27/23 10:15:00 EST, Height, kg, [...] Date Time Vital Sign Value Performing Clinician Poppy dey 08-27-2023 14:07-0500 Diastolic Blood Pressure Non-Invasive 56 mm[Hg] PAM ISAACS MD [facility] 08-27-2023 14:07-0500 Systolic Blood Pressure Non-Invasive 102 mm[Hg] PAM ISAACS MD [facility] 08-27-2023 13:22-0500 Diastolic Blood Pressure Non-Invasive 64 mm[Hg] PAM ISAACS MD [facility] 08-27-2023 13:22-0500 Heart rate 65 /min PAM ISAACS MD [facility] 08-27-2023 13:22-0500 Respiratory rate 12 /min PAM ISAACS MD [facility] 08-27-2023 13:22-0500 Systolic Blood Pressure Non-Invasive 117 mm[Hg] PAM ISAACS MD [facility] 08-27-2023 13:01-0500 Diastolic Blood Pressure Non-Invasive 99 mm[Hg] PAM ISAACS MD [facility] 08-27-2023 13:01-0500 Heart rate 61 /min PAM ISAACS MD [facility] 08-27-2023 13:01-0500 Respiratory rate 15 /min PAM ISAACS MD [facility] 08-27-2023 13:01-0500 Systolic Blood Pressure Non-Invasive 121 mm[Hg] PAM ISAACS MD [facility] 08-27-2023 12:55-0500 Heart rate 51 /min PAM ISAACS MD [facility] 08-27-2023 12:55-0500 Respiratory rate 19 /min PAM ISAACS MD [facility] 08-27-2023 12:45-0500 Body temperature 97.52 [degF] PAM ISAACS MD [facility] 08-27-2023 12:35-0500 Respiratory Rate - Anes 32 br/min PAM ISAACS MD [facility] 08-27-2023 12:30-0500 Respiratory Rate - Anes 10 br/min PAM ISAACS MD [facility] 08-27-2023 12:25-0500 Respiratory Rate - Anes 10 br/min PAM ISAACS MD [facility] 08-27-2023 10:13-0500 Body height 160 cm PAM ISAACS MD [facility] 08-27-2023 10:13-0500 Body temperature 97.52 [degF] PAM ISAACS MD [facility] 08-27-2023 10:13-0500 Body weight 75 kg PAM ISAACS MD [facility] 08-27-2023 10:13-0500 Heart rate 63 /min PAM ISAACS MD [facility] Encounters Encounter Date Encounter Type Care Provider Facility Start: 08-27-2023 End: 08-27-2023 ambulatory PAM ISAACS MD Facility:B Start: 08-27-2023 End: 08-27-2023 SAME DAY STAY PAM ISAACS MD [facility] Start: 08-13-2023 End: 08-14-2023 ambulatory PAM ISAACS MD Facility:[facility] Start: 07-29-2023 End: 07-30-2023 ambulatory PAM ISAACS MD Facility:A Start: 04-20-2023 End: 04-25-2023 ambulatory GUICHO MERCEDES MD Facility:A Start: 04-09-2023 Telephone encounter Charleen blankenship PET CREMATORY WORKER - AUCTIONEER AUTOMOBILE Work Phone: [facility] Procedures Date Procedure Procedure Detail Performing Clinician Colonoscopy PAM ISAACS MD Plan of Treatment Date Care Activity Detail Author Start: 2044 Zoster Vaccines (1 of 2) Zoste r Vaccines (1 of 2) [facility] Start: 05-04-2023 End: 05-04-2023 Patient encounter procedure 05/04/2023 7:50 AM EDT Office Visit [facility] [address] [place] [id number] Charleen Blair, PET CREMATORY WORKER - AU[employer]ER [employer] [address] [place] [address] [facility] Start: 04-30-2023 Influenza vaccination Influenza Vacc ine (#1) [facility] Start: 2015 Screening for malign ant neoplasm of cervix Pap Smear [facility] Start: 2013 DTaP/Tdap/Td Vaccine s (1 - Tdap) DTaP/Tdap/Td Vaccines (1 - Tdap) [facility] Start: 2012 Hepatitis C screening Hepatitis C Sc reening [facility] Start: 2006 Depression Screening Depression Scre ening [facility] Start: 1995 MMR Vaccines (1 of 1 - Standard series) MMR Vaccines (1 of 1 - Standard series) [facility] Start: 1995 Varicella vaccination Varicell a Vaccines (1 of 2 - 2-dose childhood series) [facility] Start: 01-08-1995 COVID-19 Vaccine (#1) COVID-19 Vacci ne (#1) [facility] Start: 1994 Hepatitis B Vaccines (1 of 3 - 3-dose series) Hepatitis B Vaccines (1 of 3 - 3-dose series) [facility] Start: 1994 HIV screening HIV Screening [facility] Giacomo narayanan Immunizations Immunization Date Immunization Notes Care Provider Fa cility 07-06-2023 influenza virus vaccine, unspecified formulation PAM ISAACS MD [facility] Payers Date Payer Category Payer Unknown [id number] 2022 Unknown ANTHEM BL[employer] CR[employer] S [employer]M [employer]OSS [id number] 2022-Present [address] [place] [address] Commercial [id number] 1994 Unknown [id number] 1994 Unknown [id number] 1994 Unknown [id number] 1994 Unknown [id number] Social History Date Type Detail [facility] Start: 1995 Sex Assigned At Not on file [facility] Gender identity Not on file [facility] Start: 04-20-2023 Tobacco smoking status Never s moked tobacco (finding) [facility] Sex Assigned At Female [facility] Functional Status Date Assessment Result Facility 08-27-2023 Functional Status Awake, Up to bathroom [facility] 08-27-2023 Functional Status bilateral knee high applied/on [facility] 08-27-2023 Functional Status Maintained Tejinder Jeong Mental Status Date Assessment Result Facility 08-27-2023 Mental Status Oriented x 4 [facility] Math[facility] 08-27-2023 Mental Status Tejinder Mathur Clinical Notes 04-05-2023 to 08-27-2023 Telephone Encounter [...] what activities are safe for you. Take uhii-pjo-hqzkunk and prescription medicines only as told by [...] 11/22/2001 Document Revised: 08/19/2018 Document Reviewed: 04/01/2018 [employer] Patient Education 2020 [employer] 08/27/2023 13:15:43 Nausea and Vomiting, Adult [...] water added (diluted fruit juice). Eat bland, xlhe-jo-gbehjf foods in small amounts as you are able. These foods include bananas, applesauce, rice, lean meats, toast, and crackers. Avoid fluids that contain a lot of sugar or caffeine, such as energy drinks, sports drinks, and soda. Avoid alcohol. Avoid spicy or fatty foods. General instructions Take btkl-elt-zgnukeh and prescription medicines only as told by your health care provider. Drink enough fluid to keep your urine pale yellow. Wash your hands often using soap and water. If soap and water are not available, use hand hose tender. Make sure that all people in your [...] eating and drinking to prevent dehydration. Take syyl-pfb-lcfusyw and prescription medicines only as told by [...] 08/16/2006 Document Revised: 12/08/2019 Document Reviewed: 01/24/2019 [employer] Patient Education 2020 [email or web address]. 08/27/2023 13:15:03 Endometrial Ablation, Care After Endometrial [...] are safe for you. General instructions Take exlc-ioq-qbtafwu and prescription medicines only as told by [...] 06/28/2018 Document Revised: 12/07/2019 Document Reviewed: 06/28/2018 [employer] Patient Education 2020 [employer] 08/27/2023 11:52:28 8- Post Op STRESS ENGINEER Minor Surgery What to Do After Your [...] as your pain allows. You may take jsif-jav-llxpiox pain medication if you no longer need your prescribed pain medication. Ystl-mgp-jgxvyqd pain medications are Tylenol (acetaminophen) or Advil (ibuprofen). Do not take Tylenol if you are still taking [place] or Percocet. They are the same type [...] have. Follow Up Care 08/02/2023 10:09:45 With:PAM ISAACS MD Address: [address] [place] [address] [address] [facility] [place] [address] [phone] When:Within 2 Week(s) [facility] 12-29-2023 Note Discharge Instructions Thank you for allowing [facility] to assist you with your healthcare needs. The following is important discharge information regarding your hospital visit. Your Care Team GUICHO MERCEDES MD Your Diagnosis Crohn's disease Family history of endometriosis Female infertility Postoperative pain What to do next Follow Up Appointments Follow Up with PAM ISAACS MD When In 2 weeks Where: [address] [facility] [address] [facility] [place] [address]- [phone] The Following Activity and Diet Have Been [...] Duration: 14 Days Refills: 1 Pickup at [facility] #[id number] New acetaminophen-oxyCODONE (Percocet 5 mg-325 mg oral tablet) 1 tab(s) by mouth Every 4 hours as needed for for pain Postoperative pain Duration: 7 Days Pickup at [facility] #[id number] New ibuprofen (ibuprofen 800 mg oral tablet) 1 tab(s) by mouth Every 8 hours Duration: 14 Days Pickup at [facility] #[id number] New ondansetron (Zofran 4 mg oral tablet) 1 tab(s) by mouth Every 6 hours as needed for Nausea/Vomiting Duration: 5 Days Pickup at [facility] #[id number] Unchanged cholecalciferol (Vitamin D3) 25 Microgram by [...] Milliliter Subcutaneous Every 8 weeks Pharmacy Information [facility] #[id number]: [address] [place], [place] [phone] Please take this list to your next [...] what activities are safe for you. Take gztg-png-wtzbicv and prescription medicines only as told by [...] 11/22/2001 Document Revised: 08/19/2018 Document Reviewed: 04/01/2018 [employer]oc[employer] Patient Education 2020 Elsevier Inc. Nausea and Vomiting, Adult Nausea is [...] water added (diluted fruit juice). Eat bland, ynln-nr-gudhmy foods in small amounts as you are able. These foods include bananas, applesauce, rice, lean meats, toast, and crackers. Avoid fluids that contain a lot of sugar or caffeine, such as energy drinks, sports drinks, and soda. Avoid alcohol. Avoid spicy or fatty foods. General instructions Take rgxb-ixs-nzsrpqh and prescription medicines only as told by your health care provider. Drink enough fluid to keep your urine pale yellow. Wash your hands often using soap and water. If soap and water are not available, use hand hose tender. Make sure that all people in your [...] eating and drinking to prevent dehydration. Take ytfx-cwj-dtbfmwx and prescription medicines only as told by [...] 08/16/2006 Document Revised: 12/08/2019 Document Reviewed: 01/24/2019 [employer] Patient Education 2020 [employer] Endometrial Ablation, Care After This sheet [...] are safe for you. General instructions Take wjqj-nmv-pzngict and prescription medicines only as told by [...] 06/28/2018 Document Revised: 12/07/2019 Document Reviewed: 06/28/2018 Elsevier Patient Education 2020 Elsevier Inc. What to Do After Your Gynecology [...] as your pain allows. You may take cqwu-jti-ktnpnmt pain medication if you no longer need your prescribed pain medication. Jocx-eck-gsczesh pain medications are Tylenol (acetaminophen) or Advil (ibuprofen). Do not take Tylenol if you are still taking [place] or Percocet. They are the same type [...] to receive it can visit one of [facility] vaccine [facility]. There are many vaccine clinic locations within the [facility]. For locations and available times, please visit https://gettheshot.coronavirus.o hio.gov/. It is important to note that some COVID mobile vaccine clinics are held outdoors and may be canceled in rainy or stormy conditions. To learn more about pediatric vaccinations (ages 5-11), we invite you to visit the [employer] Children[facility] webpage. https://www.[employer]CaliforniaC[employer].coms.org/p ages/3402-Gnzrj-Okaurtgikfe-Freq alnuox-Ojijz-Fwkcorlju.html To learn more about the COVID-19 vaccine, we invite you to visit the CDC website for a list of frequently asked questions.https://www.cdc.gov/co ronavirus/2019-ncov/vaccines/faq .html [facility] Patient Portal Access Instructions: Stay connected with your healthcare team and access your personal medical information anytime with the [employer] Patient Portal. Please follow the directions below to create your [facility] account: 1.Access the email account you provided upon registration to the hospital/physician office.2.Look for an invitation email from [facility].3.Open the email and access the invitation link: Accept Invitation to [facility].4.Fill in the required barnes to create your account. To access your account, visit [email or web address]. Click the blue button labeled Access Patient [...] you will allow to register on the [facility] Patient Portal for access to your information. You can also access the [facility] Patient Portal on the [employer] nancie. Simply click on Patient Portal and then log into your account. If you would like to receive a full copy of your medical records, please contact the [facility] Medical Records Department by calling [phone], Wednesday through Wednesday between 8 a.m. and [...] Call your local pharmacy or go to [email or web address]/[email or web address] to find one close to you.3.Make use of household items: Use cat litter or old coffee grounds to dispose medications if other options are not available. Mix your drugs with these household products, seal them in an airtight container and throw it into the garbage. Call [facility]: [phone] to be sure your drugs can be [...] Endometrial Ablation, Care After 8- Post Op STRESS ENGINEER Minor Surgery Medication Leaflets My discharge plan and instructions have been reviewed and explained to me and I,TARUN BRAGA understand my current condition and have read and understand these discharge instructions. I have received a written copy of the plan/instructions. If I have questions, I am aware that I should contact my doctor. 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 Reviewed postop instructions. Pam Isaacs MD Digitally Signed by PAM ISAACS MD on 08/27/2023 11:50 AM [facility] 08-27-2023 Anesthesiology Consult note Patient: TARUN BRAGA Age: 28 years Sex: Female : 1995 Associated Diagnoses: None Author: CHELLY BUSTAMANTE PET CREMATORY WORKER-SHOCK ABSORBER INSTALLER Preoperative Information Time of last food or [...] list: Medical Crohn disease / SNOMED CT 06803255 / Confirmed Wellness examination / SNOMED CT 940686456 / Confirmed Weight gain / SNOMED CT 46626511 / Confirmed, Active Problems (4) Crohn disease GERD (gastroesophageal reflux disease) Weight gain Wellness examination Histories Past Medical History: Resolved ([id number]): Onset on 07/18/2018 at 23 years. Resolved in 2019 at 23 years. ([id number]): Onset on 07/19/2017 at 22 years. Resolved in 2018 at 22 years. Family History: Anxiety Sister Hypertension Father Heart disease Father Alcoholism Father Depression Father Procedure history: Colonoscopy (108640162). 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 Substance Abuse 08/27/2023 Use: Never Tobacco 08/27/2023 Tobacco Use: Never (less than 100 in l Exercise 04/20/2023 Exercise type: Walking Times per week: 5-6 times/week Home/Environment 08/27/2023 Living situation: Home/Independent Domestic Concerns None Primary Flooring Machine Feeder: Self Current Home Treatments None Special Services [...] Resp Rate 20 br/min (AUG 27 10:13) OVB774 mmHg (AUG 27 10:13) DBP81 mmHg (AUG 27 10:13) Measurements from flowsheet : Measurements 08/27/2023 10:13 EST Height 160 cm Admission Weight 75 kg [place] Body Weight 52.38 kg Admission Body Mass [...] Height 160 cm Admission Weight 75 kg [place] Body Weight 52.38 kg Admission Body Mass [...] Person #1 We May Share LAURA Barney [phone] Designated Person #1 Relationship Spouse Privacy Restrictions [...] after midnight, No makeup, No jewelry, Responsible Republican, Aware of surgery location, Pre-op education done, 1 bottle CHG wash with instructions given, Instructed to take ordered medications, SSI prevention handout given SN - Preprocedure Comments Spoke with patient, Verbalizes/Nonverbally indicates understanding, Other: Omeprazole Barriers to Learning None evident Teaching Method Explanation, Printed materials Preferred Spoken Language Niuean Preferred Written Language Niuean Teaching Evaluation No further teaching needed Safety Brochure Information Reviewed Unable to complete [facility] Video Viewed No Information Given by Patient [...] QC PRGUP Positive . Assessment and Plan [place] Society of Anesthesiologists (ASA) physical status classification: Class II. Anesthetic Preoperative Plan Premedication: intravenous. Anesthetic technique: General. Induction: intravenously. Maintenance airway: Oral endotracheal tube. Postoperative pain management: Per surgeon. Risks discussed: nausea, vomiting, sore throat. Informed consent: signed by patient. Digitally Signed by CHELLY BUSTAMANTE on 08/27/2023 11:44 AM [facility] 04-09-2023 Telephone encount er Note Name of caller: TARUN Relation to patient: patient Contact phone number: [phone] Appointment scheduled with: CHARLEEN BLAIR Appointment date & time: 05/04/23 @ 7:50 AM Reason for visit (are you having any symptoms) : Low blood pressure, unexpected weight gain Transportation issues/ concerns: NO Special accommodations? ( wheel chair, etc) : NO Current medications: STELARA Any refills need: NO Any chronic conditions the provider should be aware of: CHRON'S, 14 WEEKS [facility] 04-09-2023 Telephone encount er Note In order to comply with the No Surprises Act, [employer] is providing you with the following attachments. Any Good Cathy Estimate that may be provided are based on the services you are scheduled to receive. During your visit, there may be additional services required in order for the provider to complete your plan of care. DECLINED [facility] 04-09-2023 Miscellaneous Notes Formattin g of this note might be different from the original. In order to comply with the No Surprises Act, [employer] is providing you with the following attachments. Any Good Cathy Estimate that may be provided are based on the services you are scheduled to receive. During your visit, there may be additional services required in order for the provider to complete your plan of care. DECLINED documented in this encounter [facility] 04-09-2023 Miscellaneous Notes Formattin g of this note might be different from the original. Name of caller: TARUN Relation to patient: patient Contact phone number: [phone] Appointment scheduled with: CHARLEEN BLAIR Appointment date & time: 05/04/23 @ 7:50 AM Reason for visit (are you having any symptoms) : Low blood pressure, unexpected weight gain Transportation issues/ concerns: NO Special accommodations? ( wheel chair, etc) : NO Current medications: STELARA Any refills need: NO Any chronic conditions the provider should be aware of: CHRON'S, 14 WEEKS documented in this encounter [facility] 04-05-2023 Telephone encount er Note PATIENT SUBMITTED ONLINE APPOINTMENT REQUEST FOR A PCP APPOINTMENT. SPOKE TO PATIENT AND GOT SOME INFORMATION BUT SHE HAD TO GET OFF THE LINE AND STATES SHE WILL C/B. OK TO SCHEDULE WITH ANY PROVIDER WHEN PATIENT CALLS BACK. FirstName : Tarun LastName : OMI Pronouns : PronounsOther : Email : [email or web address] Phone : [phone] Birthdate : 1995 12:00:00 AM BestTimeToCallBack : Afternoon AppointmentDate : Kirk PhysicianRequested : Symptoms : Weight gain, low blood pressure OptIn : False [facility] 04-05-2023 Miscellaneous Notes Formattin g of this note might be different from the original. PATIENT SUBMITTED ONLINE APPOINTMENT REQUEST FOR A PCP APPOINTMENT. SPOKE TO PATIENT AND GOT SOME INFORMATION BUT SHE HAD TO GET OFF THE LINE AND STATES SHE WILL C/B. OK TO SCHEDULE WITH ANY PROVIDER WHEN PATIENT CALLS BACK. FirstName : Tarun LastName : BRAGA Pronouns : PronounsOther : Email : [email or web address] Phone : [phone] Birthdate : 1995 12:00:00 AM BestTimeToCallBack : Afternoon AppointmentDate : Kirk PhysicianRequested : Symptoms : Weight gain, low blood pressure OptIn : False documented in this encounter [facility] Evaluation + Plan note No data available for this section [facility] Summary Purpose Family History No Family History Records FoundNo Family History Records Found No data available for this section No Family History Records Found Advance Directives No Advanced Directives Records FoundNo Advanced Directives Records FoundNo Advanced Directives Records Found Additional Source Comments INFORMATION SOURCE (unrecogn ized section and content) DATE CREATED AUTHOR AUTHOR'S ORGANIZ ATION 04/10/2023 [facility] DATE CREATED AUTHOR AUTHOR'S ORGANIZ ATION 09/02/2023 [facility] ([place]) Reason for Visit (unrecogniz ed section and content) Reason Onset Date Comments NO SURPRISE ACT 04/09/2023 Reason Onset Date Comments New Patient 04/09/2023 Patient Care team informatio n (unrecognized section and content) Care Team Personnel Name: GUICHO MERCEDES MD Position: P4 Physician - Primary Care Member Role: Primary Care Physician Address: Address: [address] [place], [place] [address] Name: YUE ALEMAN DO Member Role: Cad Drafter Address: Address: [address] [facility] [place], [place] [address] Name: MEHNAZ CEDILLO MD Position: OB Physician Member Role: OBGYN Address: Address: [address] [place], [place] [address] Care Team Related Persons Name: SUZY BARNEY [...] BE BASED ON THE PRIMARY CLINICAL RECORDS. [email or web address] [facility]. provides no warranty or guarantee of the accuracy or completeness of information in this document.
[2023-11-06 08:40] LABS: Absolute Lymphocyte Count 1.91 X10^3/uL (0.83-4.51); Absolute Neutrophil Count 2.6 X10^3/uL (2.0-7.7); Basophil# 0.04 X10^3/uL; Basophil% 0.8 % (0-1); Eosinophil# 0.11 X10^3/uL; Eosinophils% 2.2 % (0-5); Hematocrit 34.8 % (37-47); Hemoglobin 11.6 g/dL (12.0-15.0); Lymphocyte # 1.91 X10^3/ul (0.83-4.51); Lymphocyte % 37.4 % (19-41); Mean Corp Hgb Conc 33.3 g/dL (32-36); Mean Corpuscular Hgb 30.5 pg (27.0-32.0); Mean Corpuscular Volume 91.6 fL (81-99); Mean Platelet Vol. 10.5 fl (6.2-12.0); Monocyte# 0.42 X10^3/uL; Monocyte% 8.2 % (0-10); NRBC Flagged by Analyzer 0 % (0-5); Neutrophil # 2.62 X10^3/uL (2.7-7.7); Neutrophil % 51.2 % (47-70); Platelet Count 291 K/mm3 (150-450); RBC Distribution Width CV 12.5 % (11.6-14.6); RBC Distribution Width SD 41.9 fl (35.1-43.9); White Blood Count 5.1 K/mm3 (4.4-11.0)
== END | disposition home or self-care (01) ==
LOC: LAB 07:53
PROVIDERS: Referring Provider Internal Medicine Gastroenterology; Visit Provider Internal Medicine Gastroenterology
DX: K51.30 Ulcerative (chronic) rectosigmoiditis without complications (principal)
CPT/HCPCS: 36415; 85025

== ENCOUNTER → 2023-12-09 | Outpatient (CLI) | payer BC, SELFPAY ==
[2023-12-15 19:46] LABS: HPV Reflexed? NOT INDICATED
== END | disposition home or self-care (01) ==
PROVIDERS: Referring Provider Advanced Practice Midwife; Visit Provider Advanced Practice Midwife
DX: Z12.4 Encounter for screening for malignant neoplasm of cervix (principal)
CPT/HCPCS: 88175; G0145

== ENCOUNTER → 2023-12-11 | Outpatient (CLI) | payer BC, SELFPAY ==
[2023-12-16 18:08] LABS: Calprotectin, Stool 20 ug/g (0-120)
== END | disposition home or self-care (01) ==
PROVIDERS: Referring Provider Internal Medicine Gastroenterology; Visit Provider Internal Medicine Gastroenterology
DX: K58.9 Irritable bowel syndrome, unspecified (principal)
CPT/HCPCS: 83630; 83993

== ENCOUNTER → 2024-01-06 | Outpatient (CLI) | payer BC, SELFPAY ==
--- NOTE | 2024-01-06 08:13 | US_ITS ---
STUDY: ULTRASOUND OF THE FEMALE PELVIS - COMPLETE REASON FOR EXAM: Female, 28 years old. irregular menses LMP: 01/03/2024 TECHNIQUE: Transabdominal and Transvaginal TECHNICAL QUALITY: Adequate. COMPARISON: None. FINDINGS: The uterus is anteverted and is in a midline position. The uterus measures 9.4 x 5.9 x 4.1 cm. Normal uterine cervix. The endometrium measures 7 mm in thickness, and is fluid distended. There is no demonstrated endometrial mass. There is no demonstrated myometrial mass. I.U.D. - The patient does not have an I.U.D. The right ovary is visualized. The right ovary measures 5.3 x 3.6 x 3.4 cm. 3.2 cm round anechoic mass with increased through transmission of the right ovary consistent with dominant follicle. There is no visualized right adnexal mass or complex lesion. There is normal arterial and normal venous vascularity. The left ovary is visualized. The left ovary measures 5.5 x 4.4 x 4.1 cm. 4.2 cm oval anechoic mass with increased through transmission of the left ovary consistent with corpus luteum cyst. There is no visualized left adnexal mass or complex lesion. There is normal arterial and normal venous vascularity. There is minimal fluid in the cul-de-sac. The pre void volume of the bladder was 593 ml. The post void volume of the bladder was ml. Polycystic ovary disease: No. US/Pelvic (Non ) IMPRESSION: 1. Some fluid in the endocervical canal. 2. 4.2 cm left ovarian corpus luteum cyst. Electronically Signed: Master Boland MD at 0:21 EDT ,
[2024-01-06 10:48] LABS: Prolactin 10.3 ng/mL
[2024-01-12 12:10] LABS: Testosterone Free 0.8 pg/mL (0.0-4.2)
== END | disposition home or self-care (01) ==
PROVIDERS: Referring Provider Advanced Practice Midwife; Visit Provider Advanced Practice Midwife
DX: N80.9 Endometriosis, unspecified (principal); N97.0 Female infertility associated with anovulation; N92.6 Irregular menstruation, unspecified
CPT/HCPCS: 36415; 76830; 76856; 82627; 84146; 84402; 84443; 82626

== ENCOUNTER → 2024-05-04 | Outpatient (CLI) | payer BC, SELFPAY ==
[2024-05-04 12:57] LABS: Absolute Lymphocyte Count 2.02 X10^3/uL (0.83-4.51); Absolute Neutrophil Count 3.2 X10^3/uL (2.0-7.7); Basophil# 0.04 X10^3/uL; Basophil% 0.7 % (0-1); Eosinophil# 0.09 X10^3/uL; Eosinophils% 1.6 % (0-5); Hematocrit 37.4 % (37-47); Hemoglobin 12.2 g/dL (12.0-15.0); Lymphocyte # 2.02 X10^3/ul (0.83-4.51); Lymphocyte % 34.9 % (19-41); Mean Corp Hgb Conc 32.6 g/dL (32-36); Mean Corpuscular Hgb 29.9 pg (27.0-32.0); Mean Corpuscular Volume 91.7 fL (81-99); Monocyte# 0.41 X10^3/uL; Monocyte% 7.1 % (0-10); NRBC Flagged by Analyzer 0 % (0-5); Neutrophil # 3.22 X10^3/uL (2.7-7.7); Neutrophil % 55.5 % (47-70); Platelet Count 337 K/mm3 (150-450); RBC Distribution Width CV 12.3 % (11.6-14.6); RBC Distribution Width SD 41.5 fl (35.1-43.9); Red Blood Count 4.08 M/mm3 (4.2-5.4); White Blood Count 5.8 K/mm3 (4.4-11.0)
[2024-05-04 13:23] LABS: Vitamin D,25 Hydroxy 24.7 ng/mL
[2024-05-04 13:27] LABS: Hemoglobin A1c 5.3 % (3.8-5.6)
[2024-05-04 13:37] LABS: ALB/GLOB Ratio 1.1 RATIO (0.9-2.4); AST(SGOT) 38 U/L (15-37); Alanine Aminotransfer ALT/SGPT 84 U/L (13-56); Albumin, Serum 4.3 g/dL (3.2-5.0); Alkaline Phosphatase 63 U/L (45-117); Anion Gap 7 (5-15); BUN 11 mg/dL (7-18); BUN/Creat Ratio 16.6 RATIO (10-20); Calcium,Total 9.8 mg/dL (8.5-10.1); Chloride 103 mmol/L (98-107); Creatinine, Serum 0.66 mg/dL (0.55-1.02); EST Glomerular Filtration Rate 111 mL/min (>60); Est Glom Filt Rate - Afr Amer 135 mL/min (>60); Glucose 94 mg/dL (74-106); Potassium 4.1 mmol/L (3.5-5.1); Protein, Total 8.3 g/dL (6.4-8.2); Sodium Level 135 mmol/L (136-145)
== END | disposition home or self-care (01) ==
PROVIDERS: Referring Provider Nurse Practitioner Family; Visit Provider Nurse Practitioner Family
DX: E66.8 Other obesity (principal); K51.30 Ulcerative (chronic) rectosigmoiditis without complications; E28.2 Polycystic ovarian syndrome; K21.9 Gastro-esophageal reflux disease without esophagitis; N80.9 Endometriosis, unspecified
CPT/HCPCS: 36415; 80053; 82306; 83036; 84439; 84443; 85025

== ENCOUNTER → 2024-05-26 | Outpatient (CLI) | payer BC, SELFPAY ==
--- NOTE | 2024-05-26 08:41 | EKG12_ITS ---
Test Reason : WEIGHT MNGT Blood Pressure : / mmHG Vent. Rate : 052 BPM Atrial Rate : 052 BPM P-R Int : 182 ms QRS Dur : 076 ms QT Int : 404 ms P-R-T Axes : 019 047 038 degrees QTc Int : 375 ms Sinus bradycardia with sinus arrhythmia Otherwise normal ECG Confirmed by SUNIL BLANCO, SAMMY ([id number]), dictionary editor LUIS QUIGLEY ([id number]) on 05/26/2024 2:53:52 PM Referred By: Renetta Cha Confirmed By:SAMMY BARBER MD
== END | disposition home or self-care (01) ==
LOC: PSN 08:40 → LAB 08:59 → PSN 09:08
PROVIDERS: Referring Provider Nurse Practitioner Family; Visit Provider Nurse Practitioner Family
DX: E66.8 Other obesity (principal)
CPT/HCPCS: 93005

== ENCOUNTER → 2024-06-24 | Outpatient (CLI) | payer BC, SELFPAY ==
--- OUTSIDE RECORDS SUMMARY | 2024-06-24 08:22 | XMS RPT_ITS | CCD ---
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 Name Role Phone Unavailable Primary Care Provider Paradise MERCEDES MD, GUICHO Primary Care Physician FERNY BLANCO, ERNA Attending Unavailable ERNA ISAACS MD Consulting Unavailable MAGO BLANCO, GUICHO Primary Care Unavailable MAGO BLANCO, GUICHO Primary Care Unavailable SHREYA SCOTT Attending Unavail able ERNA ISAACS MD Attending Unavailable GUICHO MERCEDES MD Primary Care Unavailable GUICHO MERCEDES MD Attending Unavailable GUICHO MERCEDES MD Primary Care Unavailable ERNA ISAACS MD Attending Unavailable GUICHO MERCEDES MD Primary Care Unavailable Unavailable Primary Care Provider UnavailSARAH Mills Attending Unavailable SARAH ESPINO Attending Unavailable Medications Current Medications Medication Drug Class(es) Dates Sig (Normalized) Sig (Original) acetaminophen 500 mg oral tablet (1 source) Start: 08-27-2023 End: 09-24-2023 Tylenol Extra Strength 500 mg oral tablet Dose : 500 mg = 1 tab(s), Oral, q4h, X 14 day(s), # 30 tab(s), 1 Refill(s), 09/24/23 11:51:00 AM EST, Pharmacy: [facility] #[id number], 160, cm, 08/27/23 10:15:00 EST, Height, kg, [...] day(s), # 12 tab(s), 0 Refill(s), Pharmacy: [facility] #[id number], Postoperative pain, 160, cm, 08/27/23 10:15:00 EST, [...] 0 Refill(s), 09/10/23 11:51:00 AM EST, Pharmacy: [facility] #[id number], 160, cm, 08/27/23 10:15:00 EST, Height, kg, 08/27/23 10:15:00 EST, Dosing Weight Start Date: 08/27/23 Stop Date: 09/10/23 Status: Ordered omeprazole 20 mg delayed release oral capsule (1 source) Proton Pump Inhibitor Start: 08-13-2023 omeprazole 20 mg oral delayed release capsule Dose : 20 mg = 1 cap(s), Oral, BIDAC, 0 Refill(s) Start Date: 08/13/23 Status: Ordered omeprazole 40 mg / sodium bicarbonate 1680 mg powder for oral suspension (1 source) Proton Pump Inhibitor Start: 11-05-2021 take 1 dose by mouth twice daily before mealtime omeprazole-sodium bicarbonate (Zegerid) 40-1,680 mg packet packet Take 1 packet (40 mg) by mouth 2 times a day before meals. 11/05/2021 Active ondansetron 4 mg oral tablet (1 source) Serotonin-3 Receptor Antagonist Start: 08-27-2023 End: 09-01-2023 Zofran 4 mg oral tablet Dose : 4 mg = 1 tab(s), Oral, q6h, PRN Nausea/Vomiting, X 5 day(s), # 20 tab(s), 0 Refill(s), 09/01/23 11:51:00 AM EST, Pharmacy: [facility] #[id number], 160, cm, 08/27/23 10:15:00 EST, Height, kg, 08/27/23 10:15:00 EST, Dosing Weight Start Date: 08/27/23 Stop Date: 09/01/23 Status: Ordered 3-IYZH-[id number] ACID-OM3 ORAL (1 source) Start: 12-07-2019 take 1 capsule by mouth once daily 6-[id number]-[id number] ACID-OM3 ORAL Take 1 capsule by mouth once daily. 12/07/2019 Active Multivitamins (1 source) Start: 04-20-2023 take 1 [...] 1 ml ustekinumab 90 mg/ml prefilled syringe (2 sources) Interleukin-12 Antagonist, Interleukin-23 Antagonist Start: 04-20-2023 Stelara PFS 90 mg/mL subcutaneous solution Dose : 90 mg = 1 mL, Subcutaneous, q8wk, # 1 mL, 0 Refill(s) Start Date: 04/20/23 Status: Ordered Start: 12-06-2021 ustekinumab (S telara) injection Inject 1 mL (90 mg) under the skin see administration instructions. 12/06/2021 Active Problems Active Problems Problem Classification Problem Date Documented Date Episodic/Chronic Endometriosis (1 source) Endometriosis (clinical); Translations: [Endometriosis, unspecified] 01-25-2024 Chronic Female infertility (2 sources) Female infertility; Translations: [Female infertility, unspecified] Onset: 08-27-2023 Chronic Menstrual disorders (2 sources) Oligomenorrhea, unspecified; Translations: [Oligomenorrhea, unspecified] Onset: 12-14-2023 Chronic Other nervous system disorders (1 source) [...] Other Problems Problem Classification Problem Date Documented Date Episodic/Chronic Contraceptive and procreative management (2 sources) Encounter for fertility testing; Translations: [Encounter for fertility testing] Onset: 12-14-2023 Episodic Immunizations and screening for infectious disease (4 sources) Encounter for screening for other viral diseases; Translations: [Encounter for screening for infections with a predominantly sexual mode of transmission] Onset: 12-14-2023 Episodic Other nutritional; endocrine; and metabolic disorders (2 sources) Abnormal weight gain; Translations: [Abnormal weight gain] Onset: 04-20-2023 Episodic Other screening for suspected conditions (not mental disorders or infectious disease) (4 sources) Encounter for screening for other suspected endocrine disorder; Translations: [Encounter for screening for diabetes mellitus] Onset: 12-14-2023 Episodic Unclassified (1 source) Onset: 01-25-2024 01-25-2024 Results Test Name Value Interpretation Reference Range Facility 17-Hydroxyprogesteroneon 17-Hydroxyprogesterone [Mass/Vol] 34.29 ng/dL Normal <=206.00 [facility] Comment on above: Result Comment: INTERPRETIVE INFORMATION for 17-Hydroxyprogesterone in females: Follicular 15 to 70 ng/dL Luteal 35 to 290 ng/dL REFERENCE INTERVAL: 17-Hydroxyprogesterone Qnt, HPLC-MS/MS Access complete set of age- and/or gender-specific reference intervals for this test in the [facility] Test Directory ([facility]). This test was developed and its performance characteristics determined by [facility]. It has not been cleared or approved by the US Food and Drug Administration. This test was performed in a CLIA certified laboratory and is intended for clinical purposes. Performed By: [facility] [address] [place] [address] Link Trainer Maintenance Worker: Oz Arthur MD, PhD CLIA Number: [id number] Performed By: #### 3 4532-2 #### MARIA E KAPADIA ([id number]) [facility] [address] [place] [address] [place] Blood type and Indirect anti body screen panel (Bld)on 12-14-2023 ABO group Nom (Bld) B Normal [facility] Comment on above: Performed By: #### 3 4532-2 #### MARIA E KAPADIA ([id number]) [facility] [address] [place] [address] Blood group antibody screen Ql Negative [facility] Comment on above: Performed By: #### 3 4532-2 #### MARIA E KAPADIA ([id number]) [facility] [address] [place] [address] [place] D Ag Ql (Bld) Positive [facility] Comment on above: Performed By: #### 3 4532-2 #### MARIA E KAPADIA ([id number]) [facility] ([facility]) [address] [place] [address] [place] C. trachomatis and N. gonorr hoeae DNA ALEKSEY+probe Nom (Unsp spec)on 12-14-2023 C. trachomatis rRNA ALEKSEY+probe Ql (Unsp spec) Negative Normal Negative [facility] Comment on above: Order Comment: The A PTIMA Combo 2 assay is FDA-approved NAAT using target capture for the in vitro qualitative detection and differentiation of ribosomal RNA (rRNA) for Chlamydia trachomatis and Neisseria gonorrhoeae testing on clinician-collected endocervical, PreservCyt solution liquid Pap specimens, vaginal, throat, rectal, and male urethral swab specimens; patient-collected vaginal swab specimens, and female and male urine specimens from symptomatic and asymptomatic individuals. Samples from all other sites are not validated for this method. Performed By: #### 3 4532-2 #### MARIA E KAPADIA ([id number]) [facility] ([facility]) [address] [place] [address] N. gonorrhoeae DNA Probe+sig amp Ql (Unsp spec) Negative Normal Negative [facility] Comment on above: Order Comment: The A PTIMA Combo 2 assay is FDA-approved NAAT using target capture for the in vitro qualitative detection and differentiation of ribosomal RNA (rRNA) for Chlamydia trachomatis and Neisseria gonorrhoeae testing on clinician-collected endocervical, PreservCyt solution liquid Pap specimens, vaginal, throat, rectal, and male urethral swab specimens; patient-collected vaginal swab specimens, and female and male urine specimens from symptomatic and asymptomatic individuals. Samples from all other sites are not validated for this method. Performed By: #### 3 4532-2 #### MARIA E KAPADIA ([id number]) [facility] ([facility]) [address] [place], [place] [id number] Dehydroepiandrosterone sulfa kushal 12-14-2023 DHEA-S [Mass/Vol] 166 ug/dL Normal 65-395 [facility] Comment on above: Order Comment: [facility]ED REFERENCE RANGES: PUBERTAL (CHUCKIE) STAGE MALE FEMALE I 5 - 265 5 - 125 II 15 - 380 15 - 150 III 60 - 505 20 - 535 IV 65 - 560 35 - 485 V 165 - 500 75 - 530 Biotin interference may cause falsely elevated results. Patients taking a Biotin dose of up to 5 mg/day should refrain from taking Biotin for 24 hours before sample collection. Providers may contact their local laboratory for further information. Performed By: #### 2 191-5 #### AMILCAR Billingsley ([id number]) [facility] ([facility]) [address] [place] [id number] HIV 1+2 Ab+HIV1 p24 Agon HIV 1+2 Ab+HIV1 p24 Ag IA Ql Non-Reactive Normal Nonreactive [facility] Comment on above: Order Comment: HIV A g/Ab screen is performed using the Siemens Fast FiBR HIV Ag/Ab Combo assay which detects the presence of HIV p24 antigen as well as antibodies to HIV-1 (Group M and O) and HIV-2. No laboratory evidence of HIV infection. If acute HIV infection is suspected, consider testing for HIV RNA by PCR (viral load). Performed By: #### 5 6888-1 #### AMILCAR Billingsley ([id number]) [facility] ([facility]) [address] [place] [address] HbA1c (Bld) [Mass fraction]o n 12-14-2023 Average glucose Estimated from glycated hemoglobin (Bld) [Mass/Vol] 100 mg/dL Normal Not Established [facility] Comment on above: Order Comment: Diagn osis of Diabetes-Adults Non-Diabetic: < or = 5.6% Increased risk for developing diabetes: 5.7-6.4% Diagnostic of diabetes: > or = 6.5% Monitoring of Diabetes Age (y)....................... Therapeutic Goal (%) Adults: >18.........................<7.0 Pediatrics: 13-18...................<7.5 Pediatrics: 7-12....................<8.0 Pediatrics: 0-6..................... 7.5-8.5 [place] [employer]. Diabetes Care 33(S1), Aug 2009 Performed By: #### 4 548-4 #### AMILCAR Billingsley ([id number]) [facility] ([facility]) [id number] [place], [place] [id number] Hemoglobin A1c/Hemoglobin.to opal 12-14-2023 HbA1c (Bld) [Mass fraction] 5.1 % Normal see below [facility] Comment on above: Order Comment: Diagn osis of Diabetes-Adults Non-Diabetic: < or = 5.6% Increased risk for developing diabetes: 5.7-6.4% Diagnostic of diabetes: > or = 6.5% Monitoring of Diabetes Age (y)....................... Therapeutic Goal (%) Adults: >18.........................<7.0 Pediatrics: 13-18...................<7.5 Pediatrics: 7-12....................<8.0 Pediatrics: 0-6..................... 7.5-8.5 [place] [employer]. Diabetes Care 33(S1), Aug 2009 Performed By: #### 4 548-4 #### AMILCAR Billingsley ([id number]) [facility] ([facility]) [address] [place], [place] [address] Hepatitis B virus surface Ag on 12-14-2023 HBV surface Ag IA Ql Non-Reactive Normal Nonreactive [facility] Comment on above: Result Comment: Biot in interference may cause falsely decreased results. Patients taking a Biotin dose of up to 5 mg/day should refrain from taking Biotin for 24 hours before sample collection. Providers may contact their local laboratory for further information. Performed By: #### 5 196-1 #### AMILCAR Billingsley ([id number]) [facility] ([facility]) [address] [place], [place] [address] Hepatitis C virus Abon 12-13 HCV Ab Ql (S) Non-Reactive Normal Nonreactive [facility] Comment on above: Result Comment: Resu lts from patients taking biotin supplements or receiving high-dose biotin therapy should be interpreted with caution due to possible interference with this test. Providers may contact their local laboratory for further information. Performed By: #### 1 6128-1 #### AMILCAR Billingsley ([id number]) [facility] ([facility]) [id number] [place] [address] Mullerian inhibiting substan ceon 12-14-2023 Mullerian inhibiting substance [Mass/Vol] 5.317 ng/mL Normal 0.401-16.015 [facility] Comment on above: Result Comment: INTE RPRETIVE INFORMATION: Anti-Mullerian Hormone FEMALE: 6 months - 14 years: 0.256 - 6.345 ng/mL 15-17 years: 0.861 - 10.451 ng/mL 18-29 years: 0.401 - 16.015 ng/mL 30-39 years: 0.176 - 11.705 ng/mL 40-45 years: 6.282 ng/mL or less 46-50 years: 0.064 ng/mL or less Post-menopausal: 0.003 ng/mL or less MALE: 6-11 months: 56.677 - 495.299 ng/mL 1-6 years: 33.442 - 342.450 ng/mL 7-9 years: 20.245 - 189.781 ng/mL 10-12 years: 2.903 - 178.243 ng/mL 13 years and older: 2.079 - 30.656 ng/mL This test was developed and its performance characteristics determined by [facility]. It has not been cleared or approved by the US Food and Drug Administration. This test was performed in a CLIA certified laboratory and is intended for clinical purposes. Performed By: [facility] [address] [place] [address] Link Trainer Maintenance Worker: Oz Arthur MD, PhD CLIA Number: [id number] Performed By: #### 3 4532-2 #### MARIA E STEFFI ([id number]) [facility] ([facility]) [address] [place] [address] Prolactinon 12-14-2023 Prolactin [Mass/Vol] 10.0 ug/L Normal 3.0-20.[address] [facility] Comment on above: Performed By: #### 2 842-3 #### AMILCAR Billingsley ([id number]) [facility] ([facility]) [address] [place] [address] Rubella virus IgG IA Qnon Rubella virus IgG IA Ql Positive Normal Negative [facility] Comment on above: Order Comment: NEGAT CARMEN: No IgG antibodies specific to Rubella detected. It is likely that the patient has not had a previous exposure to Rubella through infection or vaccination. Alternatively, the patient may have been exposed to Rubella but a failure to respond may indicate immunodeficiency. EQUIVOCAL: Equivocal results; obtain an additional sample for re-testing POSITIVE: IgG antibody to Rubella detected. This may indicate that the patient was exposed to Rubella through infection or vaccination. Performed By: #### 5 334-8 #### AMILCAR Billingsley ([id number]) [facility] ([facility]) [address] [place], [place] [address] Rubella virus IgG Qn (S) 1.6 IA Normal <=0.7 IA [facility] Comment on above: Order Comment: NEGAT CARMEN: No IgG antibodies specific to Rubella detected. It is likely that the patient has not had a previous exposure to Rubella through infection or vaccination. Alternatively, the patient may have been exposed to Rubella but a failure to respond may indicate immunodeficiency. EQUIVOCAL: Equivocal results; obtain an additional sample for re-testing POSITIVE: IgG antibody to Rubella detected. This may indicate that the patient was exposed to Rubella through infection or vaccination. Performed By: #### 5 334-8 #### AMILCAR Billingsley ([id number]) [facility] ([facility]) [address] [place], [place] [address] TSH WITH REFLEX TO FREE T4 I F ABNORMALon 12-14-2023 TSH Qn 0.94 m[IU]/L Normal 0.44-3.98 [facility] Comment on above: Order Comment: TSH t esting is performed using different testing methodology at [facility] than at other [facility]. Direct result comparisons should only be made within the same method. Performed By: #### T ANALIA #### MARIA E KAPADIA ([id number]) [facility] ([facility]) [address] [place] [address] Testosterone Free/Testostero ne.total [Mass fraction]on 12-14-2023 Testosterone [Mass/Vol] 34 ng/dL Normal 2-45 [facility] Comment on above: Result Comment: For additional information, please refer to http://education.HouseLens/faq/ [email or web address] (This link is being provided for informational/ educational purposes only.) This test was developed and its analytical performance characteristics have been determined [place] It has not been cleared or approved by the U.S. Food and Drug Administration. This assay has been validated pursuant to the CLIA regulations and is used for clinical purposes. Performed By: #### 3 4532-2 #### MARIA E KAPADIA ([id number]) [facility] ([facility]) [address] [place] [address] Testosterone Free [Mass/Vol] 3.3 pg/mL Normal 0.1-6.4 [facility] Comment on above: Result Comment: This test was developed and its analytical performance characteristics have been determined by [employer] [place], [place]. It has not been cleared or approved by the U.S. Food and Drug Administration. This assay has been validated pursuant to the CLIA regulations and is used for clinical purposes. Performed By: #### 3 4532-2 #### MARIA E KAPADIA ([id number]) [facility] [address] [place] [address] Treponema pallidum Ab.IgG+Ig Mon 12-14-2023 T. pallidum IgG+IgM IA Ql (S) Non-Reactive Normal Nonreactive [facility] Comment on above: Result Comment: No s ignificant level of Treponema pallidum antibody detected. Repeat testing in 2 to 4 weeks may be considered if early infection or incubating syphilis infection is suspected. Performed By: #### 4 7236-5 #### AMILCAR Billingsley ([id number]) [facility] ([facility]) [address] [place] [address] VZV IgG IA Ql (S)on 12-14-19 24 VARICELLA ZOSTER IGG INDEX 1.5 IA High <=0.8 [facility] Comment on above: Order Comment: NEGAT CARMEN: No IgG antibodies specific to VZV detected.It is likely that the patient has not had aprevious exposure to VZV through infectionor vaccination. Alternatively, the patient may have beenexposed to VZV but a failure to respond may indicateimmunodeficiency.EQUIVOCAL:Equivocal results; obtain additional sample for retesting.POSITIVE: IgG antibody to VZV detected. This may indicate thatthe patient was exposed to VZV through infection orvaccination. The interpretation of serological tests shouldtake into account the immunological status of the patient. Testresults for patients, including immunocompromised patients, neonates,and pediatric patients, reflect their capacity to respondimmunologically to the virus as well as their exposure to thepathogen. Patients treated with IVIG may demonstrate alteredresults in serological assays. Performed By: #### 3 4532-2 #### MARIA E KAPADIA ([id number]) [facility] ([facility]) [address] [place] [address] Varicella zoster virus Ab.Ig Maurice 12-14-2023 VZV IgG IA Ql (S) Positive Abnormal Negative [facility] Comment on above: Order Comment: NEGAT CARMEN: No IgG antibodies specific to VZV detected.It is likely that the patient has not had aprevious exposure to VZV through infectionor vaccination. Alternatively, the patient may have beenexposed to VZV but a failure to respond may indicateimmunodeficiency.EQUIVOCAL:Equivocal results; obtain additional sample for retesting.POSITIVE: IgG antibody to VZV detected. This may indicate thatthe patient was exposed to VZV through infection orvaccination. The interpretation of serological tests shouldtake into account the immunological status of the patient. Testresults for patients, including immunocompromised patients, neonates,and pediatric patients, reflect their capacity to respondimmunologically to the virus as well as their exposure to thepathogen. Patients treated with IVIG may demonstrate alteredresults in serological assays. Performed By: #### 3 4532-2 #### MARIA E KAPADIA ([id number]) [facility] ([facility]) [address] [place] [address] PROGon 11-25-2023 Progesterone Level 6.0 ng/mL Normal [facility] ([place]) Comment on above: Result Comment: Adul t Female Progesterone Reference Ranges: Follicular phase <0.21 - 1.40 ng/mL Luteal phase 3.34 - 25.56 ng/mL Mid-Luteal phase 4.44 - 28.03 ng/mL Postmenopausal <0.21 - 0.73 ng/ml Female: First trimester 11.22 - 90.00 ng/ml Second trimester 25.55 - 89.40 ng/ml Third trimester 48.40 - 422.50 ng/ml Performed By: #### P ROMEL #### [place] [address] LABORATORYOrdered By: Shira Juarez on 08-27-2023 HCG ( test) Ql Negative (08/27/23 10:05 AM) Normal AO Manual Urine SS test (u) int Not detected Invalid Interpretation Code AO Manual Urine SS PREGUon 08-27-2023 HCG ( test) Ql (U) Negative Normal [facility] ([place]) Comment on above: Performed By: #### P REGU #### [place] [address] test (u) int Not detected Invalid Interpretation Code [facility] ([place]) Comment on above: Performed By: #### P REGU #### [place] [address] CIRANon 08-03-2023 Dil Dewey Viper Venom 35.1 seconds Normal 30.0-42.0 [facility] ([place]) Comment on above: Performed By: #### 5 95751, PROL #### [place] [address] [place] Interpretation See Below Normal [facility] ([place]) Comment on above: Result Comment: No e vidence of lupus anticoagulant. Performed By: #### 5 78372, PROL #### [place] [address] Platelet neutraliz. Negative Normal [facility] ([place]) Comment on above: Performed By: #### 5 00512, PROL #### [place] [address] MULLERon 08-02-2023 Mullerian AMH 3.40 ng/mL Normal [facility] ([place]) Comment on above: Result Comment: For assays employing antibodies, the possibility exists for interference by heterophile antibodies in the samples.1 1.Tony Marion Interferences in Immunoassays - still a threat. Clin. Chem. 2000; 46: 9739-9439. This test was developed and its performance characteristics determined by [facility]. It has not been cleared or approved by the Food and Drug Administration. Reference Range: Females 26 - 30y: 1.03 - 11.10 Median 4.20 AMH concentrations of >= 1.06 ng/mL is correlated with a better response to ovarian stimulation, produced more retrievable oocytes and higher odds of live according to Rodyer et al. Fertility and Sterility. 2010: 94:0401-5714. The current AMH test method correlates with the study method with a slope of 0.94. Females at risk of ovarian hyperstimulation syndrome or polycystic ovarian syndrome (PCOS) may exhibit elevated serum AMH concentrations. AMH levels from PCOS patients may be 2 to 5 fold higher than age-appropriate reference interval values. Granulosa cell tumors of the ovary may secrete AMH along with other tumor markers. Elevated AMH is not specific for malignancy, and the assay should not be used exclusively to diagnose or exclude an AMH-secreting ovarian tumor. Performed At: [facility] [address] [place] [id number] Felisa Umaña MD Ph:[phone] Performed By: #### 5 87138, PROL #### [address] [address] PROLon 07-30-2023 Prolactin 16.5 ng/mL Normal 2.0-30.0 [facility] ([place]) Comment on above: Performed By: #### 5 82107, PROL #### [address] [address] APTTon 07-29-2023 aPTT Coag (Bld) [Time] 33.5 s Normal 25.0-35.0 [facility] ([place]) Comment on above: Result Comment: For Heparin anticoagulation therapy, the recommended therapeutic range is: 54-77 seconds (APTT Correlation with Anti-Xa therapeutic range of 0.3-0.7 units/ml). PLEASE REFERENCE THE PHARMACY PROTOCOL FOR DOSING. Performed By: #### 5 34051, PROL #### [address] [address] Heparin dose (APTT) None Normal [facility] ([place]) Comment on above: Performed By: #### 5 99974, PROL #### [address] [address] .Auto Diffon 04-21-2023 Basophil, Absolute 0.0 10 3/mcL Normal 0.0-0.3 [facility] ([place]) Comment on above: Performed By: #### C BC, TSH, CMP, ANEU, ADIFF, LIPID, GFR #### [address] [address] Basophils/100 WBC (Bld) 0.5 % Normal 0.0-2.5 [facility] ([place]) Comment on above: Performed By: #### C BC, TSH, CMP, ANEU, ADIFF, LIPID, GFR #### [place] [id number] Eosinophil, Absolute 0.1 10 3/mcL Normal 0.0-0.7 [facility] ([place]) Comment on above: Performed By: #### C BC, TSH, CMP, ANEU, ADIFF, LIPID, GFR #### [address] [address] Eosinophils/100 WBC (Bld) 1.8 % Normal 0.0-6.0 [facility] ([place]) Comment on above: Performed By: #### C BC, TSH, CMP, ANEU, ADIFF, LIPID, GFR #### [address] [address] Lymphocyte, Absolute 1.8 10 3/mcL Normal 0.9-4.3 [facility] ([place]) Comment on above: Performed By: #### C BC, TSH, CMP, ANEU, ADIFF, LIPID, GFR #### [address] [address] Lymphocytes/100 WBC (Bld) 28.6 % Normal 20.0-40.0 [facility] ([place]) Comment on above: Performed By: #### C BC, TSH, CMP, ANEU, ADIFF, LIPID, GFR #### [place] [id number] [place] [address] Monocyte, Absolute 0.5 10 3/mcL Normal 0.1-1.4 [facility] ([place]) Comment on above: Performed By: #### C BC, TSH, CMP, ANEU, ADIFF, LIPID, GFR #### [place] [id number] [place] [address] Monocytes/100 WBC (Bld) 7.4 % Normal 2.0-13.0 [facility] ([place]) Comment on above: Performed By: #### C BC, TSH, CMP, ANEU, ADIFF, LIPID, GFR #### [address] [address] Neutrophils/100 WBC (Bld) 61.7 % Normal 50.0-75.0 [facility] ([place]) Comment on above: Performed By: #### C BC, TSH, CMP, ANEU, ADIFF, LIPID, GFR #### [address] [address] .GFRon 04-21-2023 GFR >60 Normal [facility] ([place]) Comment on above: Result Comment: GFR Population mean for , Non- Americans Ages 20-29 = 116 mL/min/1.73 sq.m. Ages 30-39 = 107 mL/min/1.73 sq.m. Ages 40-49 = 99 mL/min/1.73 sq.m. Ages 50-59 = 93 mL/min/1.73 sq.m. Ages 60-69 = 85 mL/min/1.73 sq.m. Ages 70+ = 75 mL/min/1.73 sq.m. Chronic Kidney Disease: Less than 60 mL/min/1.73 square meters End Stage Renal Disease: Less than 15 mL/min/1.73 square meters Performed By: #### 5 [address]4615, PROL #### [address] [address] GFR Non- >60 Normal [facility] ([place]) Comment on above: Result Comment: GFR Population mean for , Non- Americans Ages 20-29 = 116 mL/min/1.73 sq.m. Ages 30-39 = 107 mL/min/1.73 sq.m. Ages 40-49 = 99 mL/min/1.73 sq.m. Ages 50-59 = 93 mL/min/1.73 sq.m. Ages 60-69 = 85 mL/min/1.73 sq.m. Ages 70+ = 75 mL/min/1.73 sq.m. Chronic Kidney Disease: Less than 60 mL/min/1.73 square meters End Stage Renal Disease: Less than 15 mL/min/1.73 square meters Performed By: #### 5 [id number], PROL #### [address] [address] .NEUABSon 04-21-2023 Neutrophil, Absolute 3.8 10 3/mcL Normal 2.3-8.1 [facility] ([place]) Comment on above: Performed By: #### C BC, TSH, CMP, ANEU, ADIFF, LIPID, GFR #### [place] [address] CBCon 04-21-2023 Erythrocyte distribution width (RBC) [Ratio] 12.5 % Normal 11.5-15.5 [facility] ([place]) Comment on above: Performed By: #### C BC, TSH, CMP, ANEU, ADIFF, LIPID, GFR #### [place] [address] Hematocrit (Bld) [Volume fraction] 36.4 % Normal 34.0-46.0 [facility] ([place]) Comment on above: Performed By: #### C BC, TSH, CMP, ANEU, ADIFF, LIPID, GFR #### [place] [address] Hgb 12.1 G/dL Normal 12.0-16.0 [facility] ([place]) Comment on above: Performed By: #### C BC, TSH, CMP, ANEU, ADIFF, LIPID, GFR #### [place] [address] MCH (RBC) [Entitic mass] 31.0 pg Normal 27.0-33.0 [facility] ([place]) Comment on above: Performed By: #### C BC, TSH, CMP, ANEU, ADIFF, LIPID, GFR #### [place] [address] MCHC 33.4 G/dL Normal 32.0-36.0 [facility] ([place]) Comment on above: Performed By: #### C BC, TSH, CMP, ANEU, ADIFF, LIPID, GFR #### [place] [address] MCV (RBC) [Entitic vol] 92.8 fL Normal 80.0-99.0 [facility] ([place]) Comment on above: Performed By: #### C BC, TSH, CMP, ANEU, ADIFF, LIPID, GFR #### [place] [address] Platelet 298 10 3/mcL Normal 150-450 [facility] ([place]) Comment on above: Performed By: #### C BC, TSH, CMP, ANEU, ADIFF, LIPID, GFR #### [place] [address] Platelet mean volume (Bld) [Entitic vol] 8.8 fL Normal 6.6-10.5 [facility] ([place]) Comment on above: Performed By: #### C BC, TSH, CMP, ANEU, ADIFF, LIPID, GFR #### [place] [address] RBC 3.92 10 6/mcL Low 4.10-5.30 [facility] ([place]) Comment on above: Performed By: #### C BC, TSH, CMP, ANEU, ADIFF, LIPID, GFR #### [place] [address] WBC 6.2 10 3/mcL Normal 4.5-10.8 [facility] ([place]) Comment on above: Performed By: #### C BC, TSH, CMP, ANEU, ADIFF, LIPID, GFR #### [place] [address] CMPon 04-21-2023 Albumin Level 4.3 G/dL Normal 3.2-4.8 [facility] ([place]) Comment on above: Performed By: #### C BC, TSH, CMP, ANEU, ADIFF, LIPID, GFR #### [address] [address] Albumin/Globulin [Mass ratio] 1.3 {ratio} Normal 0.9-1.6 [facility] ([place]) Comment on above: Performed By: #### C BC, TSH, CMP, ANEU, ADIFF, LIPID, GFR #### [address] [address] ALP [Catalytic activity/Vol] 55 U/L Normal 38-126 [facility] ([place]) Comment on above: Performed By: #### C BC, TSH, CMP, ANEU, ADIFF, LIPID, GFR #### [address] [address] ALT [Catalytic activity/Vol] 54 U/L High 10-49 [facility] ([place]) Comment on above: Performed By: #### C BC, TSH, CMP, ANEU, ADIFF, LIPID, GFR #### [place] [id number] AST [Catalytic activity/Vol] 33 U/L Normal 8-34 [facility] ([place]) Comment on above: Performed By: #### C BC, TSH, CMP, ANEU, ADIFF, LIPID, GFR #### [place] [id number] Bili Total 0.40 mg/dL Normal 0.20-1.20 [facility] ([place]) Comment on above: Result Comment: Use of this assay is not recommended for patients undergoing treatment with eltrombopag due to the potential for falsely elevated results. Performed By: #### C BC, TSH, CMP, ANEU, ADIFF, LIPID, GFR #### [place] [id number] BUN/Creatinine Ratio 21.4 ratio Normal 10.0-22.0 [facility] ([place]) Comment on above: Performed By: #### C BC, TSH, CMP, ANEU, ADIFF, LIPID, GFR #### [address] [address] Calcium [Mass/Vol] 9.3 mg/dL Normal 8.7-10.4 [facility] ([place]) Comment on above: Performed By: #### C BC, TSH, CMP, ANEU, ADIFF, LIPID, GFR #### [address] [address] Chloride [Moles/Vol] 105 mmol/L Normal 98-110 [facility] ([place]) Comment on above: Performed By: #### C BC, TSH, CMP, ANEU, ADIFF, LIPID, GFR #### [address] [address] CO2 [Moles/Vol] 28 mmol/L Normal 22-32 [facility] ([place]) Comment on above: Performed By: #### C BC, TSH, CMP, ANEU, ADIFF, LIPID, GFR #### [address] [address] Creatinine [Mass/Vol] 0.56 mg/dL Normal 0.50-1.20 [facility] ([place]) Comment on above: Performed By: #### C BC, TSH, CMP, ANEU, ADIFF, LIPID, GFR #### [address] [address] Electrolyte Balance 6.0 mEq/L Normal 4.0-15.0 [facility] ([place]) Comment on above: Performed By: #### C BC, TSH, CMP, ANEU, ADIFF, LIPID, GFR #### [address] [address] Globulin 3.2 G/dL Normal 1.5-3.8 [facility] ([place]) Comment on above: Performed By: #### C BC, TSH, CMP, ANEU, ADIFF, LIPID, GFR #### [address] [address] Glucose [Mass/Vol] 99 mg/dL Normal 70-110 [facility] ([place]) Comment on above: Performed By: #### C BC, TSH, CMP, ANEU, ADIFF, LIPID, GFR #### [address] [address] Potassium [Moles/Vol] 4.6 mmol/L Normal 3.5-5.0 [facility] ([place]) Comment on above: Result Comment: Spec imen slightly hemolyzed. Performed By: #### C BC, TSH, CMP, ANEU, ADIFF, LIPID, GFR #### [address] [address] Sodium [Moles/Vol] 139 mmol/L Normal 136-145 [facility] ([place]) Comment on above: Performed By: #### C BC, TSH, CMP, ANEU, ADIFF, LIPID, GFR #### [address] [address] Total Protein 7.5 G/dL Normal 5.7-8.2 [facility] ([place]) Comment on above: Result Comment: No te - New Reference Range in effect 20 Performed By: #### C BC, TSH, CMP, ANEU, ADIFF, LIPID, GFR #### [address] [address] Urea nitrogen [Mass/Vol] 12.0 mg/dL Normal 8.0-22.0 [facility] ([place]) Comment on above: Performed By: #### C BC, TSH, CMP, ANEU, ADIFF, LIPID, GFR #### [address] [address] LIPIDon 04-21-2023 Cholesterol [Mass/Vol] 183 mg/dL Normal 50-199 [facility] ([place]) Comment on above: Result Comment: Chol esterol Reference Interval: Less than 200 Desirable 200-239 Borderline high risk 240 and above High risk Performed By: #### 5 [id number], PROL #### [address] [address] Cholesterol in HDL [Mass/Vol] 53 mg/dL Normal 40-59 [facility] ([place]) Comment on above: Performed By: #### 5 [address]16[address], PROL #### [address] [address] Cholesterol in LDL [Mass/Vol] 104 mg/dL Normal 0-129 [facility] ([place]) Comment on above: Performed By: #### 5 92558, PROL #### [address] [address] Triglyceride [Mass/Vol] 131 mg/dL Normal 3-149 [facility] ([place]) Comment on above: Performed By: #### 5 [id number], PROL #### [facility] [address] [place] [address] TSHon 04-21-2023 TSH 0.952 mIU/mL Normal 0.550-4.780 [facility] ([place]) Comment on above: Result Comment: No te - New Reference Range in effect 20 Performed By: #### 5 13757, PROL #### [facility] [address] [place] [address] 36on 04-09-2023 36 Name of caller: JANE HER Relation to patient: patient Contact phone number: [phone] Appointment scheduled with: LANDY BLAIR Appointment date & time: 05/04/23 @ 7:50 AM Reason for visit (are you having any symptoms) : Low blood pressure, unexpected weight gain Transportation issues/ concerns: NO Special accommodations? ( wheel chair, etc) : NO Current medications: STELARA Any refills need: NO Any chronic conditions the provider should be aware of: CHRON'S, 14 WEEKS [facility] 36 In order to comply w ith the No Surprises Act, [facility] is providing you with the following attachments. Any Good Cathy Estimate that may be provided are based on the services you are scheduled to receive. During your visit, there may be additional services required in order for the provider to complete your plan of care. DECLINED Normal [facility] 36on 04-05-2023 36 PATIENT SUBMITTED ONLINE APPOINTMENT REQUEST FOR A PCP APPOINTMENT. SPOKE TO PATIENT AND GOT SOME INFORMATION BUT SHE HAD TO GET OFF THE LINE AND STATES SHE WILL C/B. OK TO SCHEDULE WITH ANY PROVIDER WHEN PATIENT CALLS BACK. FirstName : Marixa LastName : OMI Pronouns : PronounsOther : Email : m Phone : [phone] Birthdate : 1995 12:00:00 AM BestTimeToCallBack : Afternoon AppointmentDate : Kirk PhysicianRequested : Symptoms : Weight gain, low blood pressure OptIn : False Normal [facility] CNOVon 06-30-2019 CNOV Office Visit (WALKWA ) MARIXA TREJO ([id number]) 1995 F CHT Date Time Provider Department 06/30/19 2:30 PM HENRIETTA AZUL) DEBORAH During your visit today, we recorded the following information about you: Temperature Pulse Blood pressure Weight 98.2 degrees 61/minute 125/66 73.9 kg Henrietta Azul PA-C, HAYDEE 06/30/2019 2:51 PM Signed 06/30/2019 Patient presents with: Sore Throat: fever, nasal congestion x 1 week SUBJECTIVE: This is a 23 year old that is here today for concern for URI symptoms. She take Humira and prednisone for colitis. She hold the Humira if sick/has fever. She complains of acute onset cough, sore throat, sinus pressure, rhinorrhea and congestion x 1 week. She reports new fever 101F last night. Denies chills, sweats, or fatigue. Patient denies wheezing, shortness of breath, increased WOB, or chest pain. She has tried Tylenol sinus OTC. She denies any n/v/d/c, back pain, abdominal pain, or UTI symptoms. Asthma: none Pneumonia: none Tobacco: none Pain on scale of 0-10 with 0 being no pain and 10 being greatest pain: sore throat Nothing makes the symptoms better. Nothing makes them worse. Self-treatment:. See HPI The severity is mild and the symptoms are not improving. The patient did not have a similar problem in the last 3 months. The patient did not take any antibiotics in the last 3 months. Barriers to learning: none. Reviewed meds, OTCs, herbals or supplements. Reviewed allergies, medications, social history, and past medical history. PAST MEDICAL HISTORY Diagnosis Date - Depression with anxiety - Insomnia trazodone as needed effective ALLERGIES Prozac [Fluoxetine Hcl]; Zoloft [Sertraline Hcl] MEDICATIONS Current Outpatient Medications: adalimumab (HUMIRA) 40 mg/0.4 mL sykt 0.4 mL. mv,iron,emd-UR-khenphq cmb.24 400 mcg tab mv,iron,eev-LT-naayyhg supplement comb. no.24 400 mcg tablet Take 1 tablet every day by oral route with meals. predniSONE (DELTASONE) 20 mg tablet Take 20 mg by mouth once daily. No current facility-administered medications for this visit. Medications and allergies reviewed by this provider. SOCIAL HISTORY Social History Socioeconomic History Marital status: Spouse name: Not on file Number of children: Not on file Years of education: Not on file Highest education level: Not on file Occupational History Not on file Social Needs Financial resource strain: Not on file Food insecurity: Worry: Not on file Inability: Not on file Transportation needs: Medical: Not on file Non-medical: Not on file Tobacco Use Smoking status: Never Smoker Smokeless tobacco: Never Used Substance and Sexual Activity Alcohol use: Yes Comment: Rare glass of wine Drug use: No Sexual activity: Never Lifestyle Physical activity: Days per week: Not on file Minutes per session: Not on file Stress: Not on file Relationships Social connections: Talks on phone: Not on file Gets together: Not on file Attends episcopal service: Not on file Active member of club or organization: Not on file Attends meetings of clubs or organizations: Not on file Relationship status: Not on file Intimate partner violence: Fear of current or ex partner: Not on file Emotionally abused: Not on file Physically abused: Not on file Forced sexual activity: Not on file Other Topics Concerns: Not on file Social History Narrative Not on file REVIEW OF SYSTEMS Review of Systems ROS: constitutional-fever, heent-sinus symptoms, sore throat, heart-neg, respiratory-cough, GI-neg, -neg, skin-neg, MS-neg, endo-neg, heme-immune system compromised on Humira for colitis, lymph-neg, neuro-neg, psych-neg- All systems neg except as noted above in HPI. OBJECTIVE: BP 125/66 Pulse 61 Temp 36.8 ?C (98.2 ?F) (Oral) Wt 73.9 kg (163 lb) SpO2 98% BMI 28.87 kg/m? . Vital signs reviewed by this provider. Physical Exam AAOx3, no acute distress, patient is pleasant, well groomed, dressed appropriately. No cough heard General: WD, WN, NAD, alert. HEENT: No facial erythema or swelling. Eyes: PERRL. EOMI. No erythema or discharge. -Ears: TMs pearly lackey with light reflex, ear canals not red or swollen. +Clear, effusion on right. -Nose-nasal mucosa erythematous.. +thick discharge. No polyps, nasal septum midline. -Throat: pharynx pink with no edema/mass/exudate/eryt jodie, buccal mucosa pink and moist with no lesions. +thick post nasal drainage present on posterior pharynx. Head: +mild maxillary tenderness noted upon palpation. Neck: no masses or lymphadenopathy. Chest: CTA bilaterally with equal breath sounds; good air exchange throughout. No wheezing, rhonchi, or crackles; no retractions, tripoding, or nasal flaring noted. Sound clesr but due to Humira use and new fever (101F at home), we will get a CXR to r/o PNA. Heart: RRR, no murmur, rub, or gallop.. ASSESSMENT/PLAN: 1. Acute non-recurrent maxillary sinusitis - ICD9: 461.0, ICD10: J01.00 (primary diagnosis) 2. Sore throat - ICD9: 462, ICD10: J02.9 - RAPID STREP TEST B/O- negative - GROUP A STREPTOCOCCUS BY PCR Strep PCR sent to the lab. You will be notified of results in around 24 hours if it is positive. 3. Cough - ICD9: 786.2, ICD10: R05 Lungs sound clesr but due to Humira use and new fever (101F at home), we will get a CXR to r/o PNA. - XR CHEST 2V FRONTAL/LAT Get your chest x-ray as an outpatient Outpatient radiology department Walk in We will call you with results, will call in antibx depending on results (just sinusitis- Amoxicillin vs pneumonia- Zpak) With her colitis she has tolerated Amoxicillin 875 and Zpak before - BENZONATATE 100 MG CAPSULE Encourage fluids, rest. Tylenol for pain and fever. Saline Nasil spray, Neti Pot, vaporizer, Vicks. Try Cepocol lozenges or Chloraseptic throat spray. Warm salt water gargles. Cough and deep breath- 10x/hr while awake. Take entire course of Antibiotics. Call PCP if sx worsen or no better. If symptoms worsen, or new symptoms develop go to ER. If you have worsening of breathing or breathing changes- go to ER. If you have persistent fever unrelieved by Tylenol/Motrin- go to the ER. Follow up as needed. Barriers to learning: none. The patient verbalizes understanding and is in agreement with plan of care. ERASTO Shah PA-C, HAYDEE 06/30/2019 2:43 PM Signed ASSESSMENT/PLAN: 1. Acute non-recurrent maxillary sinusitis - 2. Sore throat - - RAPID STREP TEST B/O- negative - GROUP A STREPTOCOCCUS BY PCR Strep PCR sent to the lab. You will be notified of results in around 24 hours if it is positive. 3. Cough - - XR CHEST 2V FRONTAL/LAT Get your chest x-ray as an outpatient Outpatient radiology department Walk in We will call you with results, will call in antibx depending on results (just sinusitis vs pneumonia) - BENZONATATE 100 MG CAPSULE Encourage fluids, rest. Tylenol for pain and fever. Saline Nasil spray, Neti Pot, vaporizer, Vicks. Try Cepocol lozenges or Chloraseptic throat spray. Warm salt water gargles. Cough and deep breath- 10x/hr while awake. Take entire course of Antibiotics. Call PCP if sx worsen or no better. If symptoms worsen, or new symptoms develop go to ER. If you have worsening of breathing or breathing changes- go to ER. If you have persistent fever unrelieved by Tylenol/Motrin- go to the ER. Follow up as needed. Barriers to learning: none. The patient verbalizes understanding and is in agreement with plan of care. Henrietta Azul PA-C Referring Provider: SELF [200] Allergies As of Date: 06/30/2019 Noted Allergy Reaction PROZAC (FLUOXETINE HCL) 05/30/2015 2 - Rash Comments: Also, not effective ZOLOFT (SERTRALINE HCL) 05/30/2015 2 - Rash Date Reviewed: 06/30/2019 Reviewed by: Sharon Winchester - Fully Assessed Reason for Visit: Sore Throat [200] Cmt: fever, nasal congestion x 1 week Primary Visit Diagnosis:Acute non-recurrent maxillary sinusitis [J01.00] Other Visit Diagnoses:Sore throat [J02.9] Cough [R05] Order(s):RAPID STREP TEST B/O [8899917] Order #: [id number] XR CHEST 2V FRONTAL/LAT [7360823] Order #: [id number] FUTURE GROUP A STREPTOCOCCUS BY PCR [SQGASPCR] Order #: [id number] benzonatate (TESSALON PERLE) 100 mg capsuleTake 1 capsule by mouth three times daily as needed.Disp: 30 capsuleRfl: 0 Prescriptions as of 06/30/2019 Sig: OMEPRAZOLE 20 MG DELAYED RELE* Take 20 mg by mouth once avis* ADALIMUMAB 40 MG/0.4 ML SUBCU* 0.4 mL. MV,IRON,XCO-LC-PPOCXFW SUPPLE* mv,iron,jgn-HK-ljfrici supple* BENZONATATE 100 MG CAPSULE Take 1 capsule by mouth three* PREDNISONE 20 MG TABLET Take 20 mg by mouth once avis* Problem List As Of Date 06/30/2019 Noted Resolved Depressive disorder [F32.9] INVALID FOR* Diarrhea [R19.7] INVALID FOR* Iron deficiency anemia [D50.9] INVALID FOR* Ulcerative colitis without complications (HCC) *INVALID FOR* Other instructions from your clinician: ASSESSMENT/PLAN: 1. Acute non-recurrent maxillary sinusitis - 2. Sore throat - - RAPID STREP TEST B/O- negative - GROUP A STREPTOCOCCUS BY PCR Strep PCR sent to the lab. You will be notified of results in around 24 hours if it is positive. 3. Cough - - XR CHEST 2V FRONTAL/LAT Get your chest x-ray as an outpatient Outpatient radiology department Walk in We will call you with results, will call in antibx depending on results (just sinusitis vs pneumonia) - BENZONATATE 100 MG CAPSULE Encourage fluids, rest. Tylenol for pain and fever. Saline Nasil spray, Neti Pot, vaporizer, Vicks. Try Cepocol lozenges or Chloraseptic throat spray. Warm salt water gargles. Cough and deep breath- 10x/hr while awake. Take entire course of Antibiotics. Call PCP if sx worsen or no better. If symptoms worsen, or new symptoms develop go to ER. If you have worsening of breathing or breathing changes- go to ER. If you have persistent fever unrelieved by Tylenol/Motrin- go to the ER. Follow up as needed. Barriers to learning: none. The patient verbalizes understanding and is in agreement with plan of care. Henrietta Azul PA-C Prescriptions ordered this encounter Disp Refills Start End BENZONATATE 100 MG CAPSULE 30 c* 0 06/30/2019 06/30/2019 Route: ORAL Sig: Take 1 capsule by mouth three times daily as needed. BENZONATATE 100 MG CAPSULE 30 c* 0 06/30/2019 Route: ORAL Sig: Take 1 capsule by mouth three times daily as needed. Medications Discontinued During This Encounter benzonatate (TESSALON PERLE) 100 mg * 30 c* 0 06/30/2019 06/30/2019 Route: ORAL Sig: Take 1 capsule by mouth three times daily as needed. Disc: Reason for discontinue is not on file. Encounter Status:Closed by HENRIETTA AZUL on 06/30/19 Normal [facility] Group A Strep by PCRon 06-30 GAS Specimen Source Throat Swab Normal [facility] Comment on above: Performed By: #### G ASPCR #### [facility] [address] [place] [address] Group A Strep PCR Negative Normal [facility] Comment on above: Result Comment: This test was developed and its performance characteristics determined by [facility] [place] ([facility]). It has not been cleared or approved by the FDA. [facility] is regulated under CLIA as qualified to perform high complexity testing. This test is used for clinical purposes. It should not be regarded as investigational or for research. Performed By: #### G ASPCR #### [facility] [address] [place] [address] PROGRESSon 06-30-2019 PROGRESS HNO ID: [id number] Author: Alexandra Garsia Rt Service: ? Author Type: ? Type: Progress Notes Filed: 06/30/2019 3:48 PM Note Text: Radiology Service Progress Note PATIENT NAME: Marixa Trejo DATE OF SERVICE: June 30, 2019 TIME: 3:39 PM PATIENT IDENTITY VERIFICATION COMPLETED USING TWO (2) METHODS: Name and Date of confirmed by patient verbally. PATIENT GENDER DATA: Female. status: : No status: NO. PATIENT RELEVANT IMPLANT DATA REVIEWED: Not Applicable RADIOLOGY DEPARTMENT: General X-ray: Exam(s) Completed: Chest X-Ray PERIPHERAL IV DATA: Not applicable SIGNED BY: Alexandra Garsia Rt June 30, 2019 3:39 PM Normal [facility] PROGRESS HNO ID: [id number] Author: Henrietta Anderson) HAYDEE Azul Service: ? Author Type: Physician Section[employer] Belt [employer] As[employer]er Type: Progress Notes Filed: 06/30/2019 2:51 PM Note Text: 06/30/2019 Patient presents with: Sore Throat: fever, nasal congestion x 1 week SUBJECTIVE: This is a 23 year old that is here today for concern for URI symptoms. She take Humira and prednisone for colitis. She hold the Humira if sick/has fever. She complains of acute onset cough, sore throat, sinus pressure, rhinorrhea and congestion x 1 week. She reports new fever 101F last night. Denies chills, sweats, or fatigue. Patient denies wheezing, shortness of breath, increased WOB, or chest pain. She has tried Tylenol sinus OTC. She denies any n/v/d/c, back pain, abdominal pain, or UTI symptoms. Asthma: none Pneumonia: none Tobacco: none Pain on scale of 0-10 with 0 being no pain and 10 being greatest pain: sore throat Nothing makes the symptoms better. Nothing makes them worse. Self-treatment:. See HPI The severity is mild and the symptoms are not improving. The patient did not have a similar problem in the last 3 months. The patient did not take any antibiotics in the last 3 months. Barriers to learning: none. Reviewed meds, OTCs, herbals or supplements. Reviewed allergies, medications, social history, and past medical history. PAST MEDICAL HISTORY Diagnosis Date - Depression with anxiety - Insomnia trazodone as needed effective ALLERGIES Prozac [Fluoxetine Hcl]; Zoloft [Sertraline Hcl] MEDICATIONS Current Outpatient Medications: adalimumab (HUMIRA) 40 mg/0.4 mL sykt 0.4 mL. mv,iron,wht-YP-gtidjre cmb.24 400 mcg tab mv,iron,oza-TZ-whgpshu supplement comb. no.24 400 mcg tablet Take 1 tablet every day by oral route with meals. predniSONE (DELTASONE) 20 mg tablet Take 20 mg by mouth once daily. No current facility-administered medications for this visit. Medications and allergies reviewed by this provider. SOCIAL HISTORY Social History Socioeconomic History Marital status: Spouse name: Not on file Number of children: Not on file Years of education: Not on file Highest education level: Not on file Occupational History Not on file Social Needs Financial resource strain: Not on file Food insecurity: Worry: Not on file Inability: Not on file Transportation needs: Medical: Not on file Non-medical: Not on file Tobacco Use Smoking status: Never Smoker Smokeless tobacco: Never Used Substance and Sexual Activity Alcohol use: Yes Comment: Rare glass of wine Drug use: No Sexual activity: Never Lifestyle Physical activity: Days per week: Not on file Minutes per session: Not on file Stress: Not on file Relationships Social connections: Talks on phone: Not on file Gets together: Not on file Attends episcopal service: Not on file Active member of club or organization: Not on file Attends meetings of clubs or organizations: Not on file Relationship status: Not on file Intimate partner violence: Fear of current or ex partner: Not on file Emotionally abused: Not on file Physically abused: Not on file Forced sexual activity: Not on file Other Topics Concerns: Not on file Social History Narrative Not on file REVIEW OF SYSTEMS Review of Systems ROS: constitutional-fever, heent-sinus symptoms, sore throat, heart-neg, respiratory-cough, GI-neg, -neg, skin-neg, MS-neg, endo-neg, heme-immune system compromised on Humira for colitis, lymph-neg, neuro-neg, psych-neg- All systems neg except as noted above in HPI. OBJECTIVE: BP 125/66 Pulse 61 Temp 36.8 ?C (98.2 ?F) (Oral) Wt 73.9 kg (163 lb) SpO2 98% BMI 28.87 kg/m? . Vital signs reviewed by this provider. Physical Exam AAOx3, no acute distress, patient is pleasant, well groomed, dressed appropriately. No cough heard General: WD, WN, NAD, alert. HEENT: No facial erythema or swelling. Eyes: PERRL. EOMI. No erythema or discharge. -Ears: TMs pearly lackey with light reflex, ear canals not red or swollen. +Clear, effusion on right. -Nose-nasal mucosa erythematous.. +thick discharge. No polyps, nasal septum midline. -Throat: pharynx pink with no edema/mass/exudate/eryt jodie, buccal mucosa pink and moist with no lesions. +thick post nasal drainage present on posterior pharynx. Head: +mild maxillary tenderness noted upon palpation. Neck: no masses or lymphadenopathy. Chest: CTA bilaterally with equal breath sounds; good air exchange throughout. No wheezing, rhonchi, or crackles; no retractions, tripoding, or nasal flaring noted. Sound clesr but due to Humira use and new fever (101F at home), we will get a CXR to r/o PNA. Heart: RRR, no murmur, rub, or gallop.. ASSESSMENT/PLAN: 1. Acute non-recurrent maxillary sinusitis - ICD9: 461.0, ICD10: J01.00 (primary diagnosis) 2. Sore throat - ICD9: 462, ICD10: J02.9 - RAPID STREP TEST B/O- negative - GROUP A STREPTOCOCCUS BY PCR Strep PCR sent to the lab. You will be notified of results in around 24 hours if it is positive. 3. Cough - ICD9: 786.2, ICD10: R05 Lungs sound clesr but due to Humira use and new fever (101F at home), we will get a CXR to r/o PNA. - XR CHEST 2V FRONTAL/LAT Get your chest x-ray as an outpatient Outpatient radiology department Walk in We will call you with results, will call in antibx depending on results (just sinusitis- Amoxicillin vs pneumonia- Zpak) With her colitis she has tolerated Amoxicillin 875 and Zpak before - BENZONATATE 100 MG CAPSULE Encourage fluids, rest. Tylenol for pain and fever. Saline Nasil spray, Neti Pot, vaporizer, Vicks. Try Cepocol lozenges or Chloraseptic throat spray. Warm salt water gargles. Cough and deep breath- 10x/hr while awake. Take entire course of Antibiotics. Call PCP if sx worsen or no better. If symptoms worsen, or new symptoms develop go to ER. If you have worsening of breathing or breathing changes- go to ER. If you have persistent fever unrelieved by Tylenol/Motrin- go to the ER. Follow up as needed. Barriers to learning: none. The patient verbalizes understanding and is in agreement with plan of care. Henrietta Azul PA-C [facility] XR CHEST 2V FRONTAL/LATon XR CHEST 2V FRONTAL/LAT * * *Final Repor t* * * DATE OF EXAM: Jun 30 2019 3:48PM WOX [id number] - XR CHEST 2V FRONTAL/LAT / PROCEDURE REASON: Cough * * * * Physician Interpretation * * * * EXAMINATION: CHEST RADIOGRAPH (2 VIEW FRONTAL and LATERAL) CLINICAL HISTORY: Cough MQ: XC2_5 Comparison: None. RESULT: Lines, tubes, and devices: None. Lungs and pleura: No consolidation. No lung mass. No pleural effusion. Cardiomediastinal silhouette: Normal cardiomediastinal silhouette. Other: Mild right-sided curvature of the spine noted. IMPRESSION: No acute radiographic abnormality. Customer Trainer: PSCB Transcribe Date/Time: Jun 30 2019 3:57P Dictated by : BEATRIS TRAN MD This examination was interpreted and the report reviewed and electronically signed by: BEATRIS TRAN MD on Jun 30 2019 3:57PM EST [id number] [facility] CNOVon 08-04-2018 CNOV Office Visit (INTMWS ) DARRENMICHAELATILIOMARIXA ([id number]) 1995 F T Date Time Provider Department 08/04/18 4:20 PM SHIRLEY TYLER (RANDALL) INTMWS During your visit today, we recorded the following information about you: Temperature Pulse Blood pressure Weight 98.2 degrees 64/minute 120/66 71.2 kg Shirley Tyler APRN.CNP 08/05/2018 8:35 AM Signed CC bloody stools, history of ulcerative colitis FAISAL Marixa Trejo is a 23 year old female who presents with bloody diarrhea and fever. DIARRHEA:29640} occuring 7 to 8 stools/day on average. [...] Prozac [Fluoxetine Hcl]; Zoloft [Sertraline Hcl] MEDICATIONS mv,iron,mcp-XW-fmwzbxn cmb.24 400 mcg tab mv,iron,dcu-RX-espkenb supplement comb. no.24 400 mcg tablet Take [...] no evidence of dehydration. Patient lives in [place], here visiting family. She had notified her weave room supervisor DR. Xenia aMrtinez of current symptoms, he advised her to be evaluated in primary care. Called and spoke with Dr. Martinez. Concerned about possible sepsis or C-diff. Recommended laboratory evaluation with: - CBC + DIFF - COMP METABOLIC PANEL - BLOOD CULTURE DRAW - BLOOD CULTURE DRAW - ENTERIC BACTERIAL PANEL BY PCR - C. DIFFICILE PCR - URINE CULTURE Orders sent to [facility], insurance will only cover their lab [...] Patient agreeable to treatment plan Shirley Tyler APRN.PLASTICS SHEET FINISHING PRESS OPERATOR Referring Provider: XENIA MARTINEZ [[id number]] Allergies As of Date: 08/04/2018 Noted Allergy Reaction PROZAC (FLUOXETINE HCL) 05/30/2015 2 - Rash Comments: Also, not effective ZOLOFT (SERTRALINE HCL) 05/30/2015 2 - Rash Date Reviewed: 08/04/2018 Reviewed by: Ebonie Lopez Public Health Veterinarian - Fully Assessed Primary Visit Diagnosis:Fever, unspecified fever cause [R50.9] Other Visit Diagnoses:Bloody diarrhea [R19.7] Immunosuppression due to drug therapy [Z79.899] Ulcerative colitis without complications, unspecified location (HCC) [K51.90] Order(s):CBC + DIFF [SQCBCDIF] Order #: [id number] FUTURE COMP METABOLIC PANEL [SQCMP] Order #: [id number] FUTURE BLOOD CULTURE DRAW [SQBLCUL] Order #: [id number] FUTURE BLOOD CULTURE DRAW [SQBLCUL] Order #: [id number] FUTURE ENTERIC BACTERIAL PANEL BY PCR [SQSTLPCR] Order #: [id number] FUTURE C. DIFFICILE PCR [SQCDPCR] Order #: [id number] URINE CULTURE [SQURCUL] Order #: [id number] FUTURE Prescriptions as of 08/04/2018 Sig: AMOXICILLIN 875 MG TABLET Take 1 tablet by mouth twice * MV,IRON,PSS-CS-OUDABTC SUPPLE* mv,iron,gkp-SP-ccfflzl supple* ADALIMUMAB 40 MG/0.4 ML SUBCU* 0.4 mL. PREDNISONE 20 MG TABLET Take 20 mg by mouth once avis* Problem List As Of Date 08/04/2018 Noted Resolved Depressive disorder [F32.9] INVALID FOR* Diarrhea [R19.7] INVALID FOR* Iron deficiency anemia [D50.9] INVALID FOR* Left sided colitis (HCC) [K51.50] INVALID FOR* Encounter Status:Closed by SHIRLEY TYLER CNP on 08/05/[address] [facility] PROGRESSon 08-04-2018 PROGRESS HNO ID: [id number] Author: Shirley Oh) Stephon Service: (none) Author Type: Nurse Practitioner Type: Progress Notes Filed: 08/05/2018 8:35 AM Note Text: CC bloody stools, history of ulcerative colitis HPI Marixa Trejo is a 23 year old female who presents with bloody diarrhea and fever. DIARRHEA:33922} occuring 7 to 8 stools/day on average. [...] Prozac [Fluoxetine Hcl]; Zoloft [Sertraline Hcl] MEDICATIONS mv,iron,rel-SH-qffxglu cmb.24 400 mcg tab mv,iron,moo-VH-hjxvgsc supplement comb. no.24 400 mcg tablet Take [...] no evidence of dehydration. Patient lives in [place], here visiting family. She had notified her weave room supervisor DR. Xenia Martinez of current symptoms, he advised her to be evaluated in primary care. Called and spoke with Dr. Martinez. Concerned about possible sepsis or C-diff. Recommended laboratory evaluation with: - CBC + DIFF - COMP METABOLIC PANEL - BLOOD CULTURE DRAW - BLOOD CULTURE DRAW - ENTERIC BACTERIAL PANEL BY PCR - C. DIFFICILE PCR - URINE CULTURE Orders sent to [facility], insurance will only cover their lab [...] Patient agreeable to treatment plan Shirley Tyler APRN.PLASTICS SHEET FINISHING PRESS OPERATOR [facility] CNOVon 07-29-2018 CNOV Office Visit (UCWSTR ) MARIXA TREJO ([id number]) 1995 F [facility] Date Time Provider Department 07/29/18 10:45 AM ROLF SHAH [facility] During your visit today, we recorded the following information about you: Temperature Pulse Respiration Blood pressure 99.2 degrees 96/minute 16/minute 102/70 Weight 73.3 kg Rolf Shah MD 07/29/2018 11:11 AM Signed Patient presents with: Sinusitis: x 4 days HPI: Feeling sick for 4 days. Visiting [place]. Positive symptoms: Sore throat, Sinus pressure, Fever [...] (HUMIRA) 40 mg/0.4 mL sykt 0.4 mL. mv,iron,rsd-ZT-uyvrklx cmb.24 400 mcg tab mv,iron,crq-CQ-uaktwfu supplement comb. no.24 400 mcg tablet Take [...] ADALIMUMAB 40 MG/0.4 ML SUBCU* 0.4 mL. MV,IRON,LVM-GT-ULTOZXY SUPPLE* mv,iron,bbl-QM-rderxhc supple* PREDNISONE 20 MG TABLET Take 20 [...] Status:Closed by ROLF SHAH MD on 07/29/[address] [facility] PROGRESSon 07-29-2018 PROGRESS HNO ID: [id number] Author: Rolf Shah Service: (none) Author Type: Physician Type: Progress Notes Filed: 07/29/2018 11:11 AM Note Text: Patient presents with: Sinusitis: x 4 days HPI: Feeling sick for 4 days. Visiting [place]. Positive symptoms: Sore throat, Sinus pressure, Fever [...] (HUMIRA) 40 mg/0.4 mL sykt 0.4 mL. mv,iron,tfh-ZI-woxqpuo cmb.24 400 mcg tab mv,iron,omd-MR-mmidkun supplement comb. no.24 400 mcg tablet Take [...] symptoms persist >5 days. Rolf Shah MD [facility] Vital Signs Date Time Vital Sign Value Performing Clinician Facility 01-25-2024 11:08040 Body height 160 cm Sarah Espino APRN-PLASTICS SHEET FINISHING PRESS OPERATOR Work Phone: [facility] 01-25-2024 11:08040 Body mass index (BMI) [Ratio] 31.18 kg/m2 Sarah Espino APRN-PLASTICS SHEET FINISHING PRESS OPERATOR Work Phone: [facility] 01-25-2024 11:08040 Body weight 79.83 kg Sarah Espino APRN-PLASTICS SHEET FINISHING PRESS OPERATOR Work Phone: [facility] 08-27-2023 14:07-0500 Diastolic Blood Pressure Non-Invasive 56 mm[Hg] ERNA ISAACS MD [facility] 08-27-2023 14:07-0500 Systolic Blood Pressure Non-Invasive 102 mm[Hg] ERNA ISAACS MD [facility] 08-27-2023 13:22-0500 Diastolic Blood Pressure Non-Invasive 64 mm[Hg] ERNA ISAACS MD [facility] 08-27-2023 13:22-0500 Heart rate 65 /min ERNA ISAACS MD [facility] 08-27-2023 13:22-0500 Respiratory rate 12 /min ERNA ISAACS MD [facility] 08-27-2023 13:22-0500 Systolic Blood Pressure Non-Invasive 117 mm[Hg] ERNA ISAACS MD [facility] 08-27-2023 13:01-0500 Diastolic Blood Pressure Non-Invasive 99 mm[Hg] ERNA ISAACS MD [facility] 08-27-2023 13:01-0500 Heart rate 61 /min ERNA ISAACS MD [facility] 08-27-2023 13:01-0500 Respiratory rate 15 /min ERNA ISAACS MD [facility] 08-27-2023 13:01-0500 Systolic Blood Pressure Non-Invasive 121 mm[Hg] ERNA ISAACS MD [facility] 08-27-2023 12:55-0500 Heart rate 51 /min ERNA ISAACS MD [facility] 08-27-2023 12:55-0500 Respiratory rate 19 /min ERNA ISAACS MD [facility] 08-27-2023 12:45-0500 Body temperature 97.52 [degF] ERNA ISAACS MD [facility] 08-27-2023 12:35-0500 Respiratory Rate - Anes 32 br/min ERNA ISAACS MD [facility] 08-27-2023 12:30-0500 Respiratory Rate - Anes 10 br/min ERNA ISAACS MD [facility] 08-27-2023 12:25-0500 Respiratory Rate - Anes 10 br/min ERNA ISAACS MD [facility] 08-27-2023 10:13-0500 Body height 160 cm ERNA ISAACS MD [facility] 08-27-2023 10:130500 Body temperature 97.52 [degF] ERNA ISAACS MD [facility] 08-27-2023 10:130500 Body weight 75 kg ERNA ISAACS MD [facility] 08-27-2023 10:13050 Heart rate 63 /min ERNA ISAACS MD [facility] Encounters Encounter Date Encounter Type Care Provider Facility Start: 01-25-2024 End: 01-25-2024 Telemedicine consultation with patient Sarah Espino OXYGEN EQUIPMENT AIDE-PLASTICS SHEET FINISHING PRESS OPERATOR Work Phone: [facility] Comment on above: Female infertility ( Primary Dx); Endometriosis Start: 01-25-2024 End: 01-25-2024 ambulatory [facility] Start: 12-14-2023 End: 12-14-2023 ambulatory [facility] Start: 12-14-2023 End: 12-14-2023 ambulatory [facility] Start: 12-14-2023 End: 12-14-2023 Encounter for blood typing [facility] Start: 11-25-2023 End: 11-26-2023 ambulatory GUICHO MERCEDES MD Facility:A Start: 08-27-2023 End: 08-27-2023 ambulatory ERNA ISAACS MD Facility:B Start: 08-27-2023 End: 08-27-2023 SAME DAY STAY ERNA ISAACS MD [place] Start: 08-13-2023 End: 08-14-2023 ambulatory ERNA ISAACS MD Facility:B Start: 07-29-2023 End: 07-30-2023 ambulatory ERNA ISAACS MD Facility:A Start: 04-20-2023 End: 04-25-2023 ambulatory GUICHO MERCEDES MD Facility:A Start: 04-09-2023 Telephone encounter Landy blankenship OXYGEN EQUIPMENT AIDE - PLASTICS SHEET FINISHING PRESS OPERATOR Work Phone: [facility] Comment on above: NO SURPRISE ACT New Patient Start: 04-05-2023 Telephone encounter Galina diaz MD Work Phone: [facility] Comment on above: Appointment Request Procedures Date Procedure Procedure Detail Performing Clinician Start: 01-25-2024 Follow-up visit Follow-up SARAH ESPINO Start: 12-14-2023 17-HYDROXYPROGESTERONE SARAH ESPINO Start: 12-14-2023 ANTI-MULLERIAN HORMO NE ([facility]) SARAH ESPINO Start: 12-14-2023 C. TRACHOMATIS + N. GONORRHOEAE, AMPLIFIED SARAH ESPINO Start: 12-14-2023 DHEA-SULFATE SARAH Sargent Start: 12-14-2023 Hemoglobin A1c/Hemoglobin.total in Blood SARAH ESPINO Start: 12-14-2023 HEPATITIS B SURFACE ANTIGEN SARAH ESPINO Start: 12-14-2023 HEPATITIS C ANTIBODY MA DOM ESPINO Start: 12-14-2023 HIV 1/2 ANTIGEN/ANTI BODY SCREEN [facility] REFLEX TO CONFIRMATION SARAH ESPINO Start: 12-14-2023 PROLACTIN SARAH Sargent Start: 12-14-2023 RUBELLA ANTIBODY, IGG M MICHELL ROCIO Start: 12-14-2023 SYPHILIS SCREENING W ITH REFLEX SARAH ESPINO Start: 12-14-2023 TESTOSTERONE,FREE AN D TOTAL SARAH ESPINO Start: 12-14-2023 TSH WITH REFLEX TO F REE T4 IF ABNORMAL SARAH ESPINO Start: 12-14-2023 TYPE AND SCREEN SARAH SELBY Start: 12-14-2023 VARICELLA ZOSTER ANT IBODY, IGG SARAH ESPINO Colonoscopy ERNA ISAACS MD Plan of Treatment Date Care Activity Detail Author Start: 2044 Zoster Vaccines (1 of 2) Zoste r Vaccines (1 of 2) [facility] Start: 05-04-2023 End: 05-04-2023 Patient encounter procedure 05/04/2023 7:50 AM EDT Office Visit [facility] [address] [place] [id number] Landy Blair, OXYGEN EQUIPMENT AIDE - PLASTICS SHEET FINISHING PRESS OPERATOR [address] [place] [address] [facility] Start: 04-30-2023 COVID-19 Vaccine ( season) COVID-19 Vaccine ( season) [facility] Start: 04-30-2023 Influenza vaccination Influenza Vacc ine (#1) [facility] Start: 2016 DTaP/Tdap/Td Vaccine s (1 - Tdap) DTaP/Tdap/Td Vaccines (1 - Tdap) [facility] Start: 2015 Screening for malign ant neoplasm of cervix [facility] Start: 2013 DTaP/Tdap/Td Vaccine s (1 - Tdap) DTaP/Tdap/Td Vaccines (1 - Tdap) [facility] Start: 2013 Hepatitis B Vaccines (1 of 3 - 19+ 3-dose series) Hepatitis B Vaccines (1 of 3 - 19+ 3-dose series) [facility] Start: 2012 Hepatitis C screening Hepatitis C Sc reening [facility] Start: 2007 Varicella vaccination Varicell a Vaccines (1 of 2 - 13+ 2-dose series) [facility] Start: 2006 Depression Screening Depression Scre ening [facility] Start: 1995 MMR Vaccines (1 of 1 - Standard series) MMR Vaccines (1 of 1 - Standard series) [facility] Start: 1995 Varicella vaccination Varicell a Vaccines (1 of 2 - 2-dose childhood series) [facility] Start: 01-08-1995 COVID-19 Vaccine (#1) COVID-19 Vacci ne (#1) [facility] Start: 1994 Hepatitis B Vaccines (1 of 3 - 3-dose series) Hepatitis B Vaccines (1 of 3 - 3-dose series) [facility] Start: 1994 HIV screening HIV Screening [facility] Start: 1994 Lipid panel Lipid Panel [facility] Start: 1994 Yearly Adult Physical Yearly Adult P hysical [facility] Immunizations Immunization Date Immunization Notes Care Provider Fa cility 07-06-2023 influenza virus vaccine, unspecified formulation ERNA ISAACS MD [facility] Payers Date Payer Category Payer Unknown [id number] 2017 Unknown [id number] 1995 Unknown [id number] 2.16.8 [id number] 1995 Unknown [id number] 2.16.8 [id number] 1995 Unknown [id number] 2.16.8 [id number] 1994 Unknown [id number] 2.16.8 [id number] 1994 Unknown [id number] 2.16.8 [id number] 1994 Unknown [id number] 2.16.8 [id number] 1994 Unknown [id number] 2.16.8 [id number] 1994 Unknown [id number] 2.16.8 [id number] Social History Date Type Detail Facility Tobacco smoking status ARIS Tobacco smoking consumption unknown [facility] Start: 1995 Sex Assigned At Not on file [facility] Start: 12-14-2023 End: 01-25-2024 Gender identity Not on file [facility] Start: 04-20-2023 End: 01-25-2024 Tobacco smoking status Never smoked tobacco (finding) [facility] Start: 1995 Sex Assigned At Female [facility] Start: 01-25-2024 Tobacco use and exposure Smokeless tobacco non-user [facility] Work Phone: Start: 01-25-2024 Alcoholic beverage intake Ex-drinker (finding) [facility] Work Phone: Start: 12-14-2023 End: 01-25-2024 History of Social function [facility] Work Phone: Start: 09-30-2023 Gender identity Identifies as female gender (finding) [facility] Work Phone: Start: 09-30-2023 Sexual orientation Heterosexual (fin ding) [facility] Work Phone: Start: 01-15-2024 End: 01-25-2024 Exposure to SARS-CoV-2 (event) Unable to assess [facility] NEGATED: Highlighted rowStart: NINF History of tobacco use Passive smoker [facility] Work Phone: Functional Status Date Assessment Result Facility 08-27-2023 Functional Status Awake, Up to bathroom [facility] 08-27-2023 Functional Status bilateral knee high applied/on [facility] 08-27-2023 Functional Status Maintained [facility] Mental Status Date Assessment Result Facility 08-27-2023 Mental Status Oriented x 4 [facility] 08-27-2023 Mental Status [facility] Clinical Notes 04-05-2023 to 01-25-2024 Sarah Espino, JUDY-PLASTICS SHEET FINISHING PRESS OPERATOR - 01/25/2024 11:15 AM EDTTelephone Encounter - Cher Calderon - 04/09/2023 11:53 AM EDTTelephone Encounter - Cher Calderon - 04/09/2023 11:53 AM EDT Note Date & Type Note Facility 01-25-2024 History of Presen t illness Narrative Virtual or Telephone Consent: An interactive audio and video telecommunication system which permits real time communications between the patient (at the originating site) and provider (at the distant site) was utilized to provide this telehealth service Follow Up Visit HPI Patient is a 28 y.o. female with endometriosis presenting today for follow up visit. Hx 1 SAB Has been trying to conceive x 4 years. Testing to date: Result Date Done TSH: 0.94 (Ref range: 0.44 - 3.98 mIU/L) 12/14/2023 AMH: 5.317 (Ref range: 0.401 - 16.015 ng/mL) 12/14/2023 PRL: 10.0 (Ref range: 3.0 - 20.0 ug/L) 12/14/2023 Testosterone: No results found for requested labs within last 365 days. No results found for requested labs within last 365 days. DHEAS: 166 (Ref range: 65 - 395 ug/dL) 12/14/2023 Other: Component Latest Ref Rng 12/14/2023 ABO TYPE B Rh Type POS ANTIBODY SCREEN NEG Testosterone, Free 0.1 - 6.4 pg/mL 3.3 Testosterone, Total, LC-MS/MS 2 - 45 ng/dL 34 Hemoglobin A1C see below % 5.1 Estimated Average Glucose Not Established mg/dL 100 Rubella, IgG Negative Positive Rubella, IgG Index <=0.7 IA IA 1.6 Varicella Zoster, IgG Negative Positive ! Varicella Zoster, IgG Index <=0.8 IA 1.5 (H) Anti-Mullerian Hormone 0.401 - 16.015 ng/mL 5.317 Thyroid Stimulating Hormone 0.44 - 3.98 mIU/L 0.94 PROLACTIN 3.0 - 20.0 ug/L 10.0 DHEA Sulfate 65 - 395 ug/dL 166 17-Hydroxyprogesterone <=206.00 ng/dL 34.29 Hepatitis B Surface AG Nonreactive Nonreactive Hepatitis C AB Nonreactive Nonreactive HIV 1/2 Antigen/Antibody Screen with Reflex to Confirmation Nonreactive Nonreactive Syphilis Total Ab Nonreactive Nonreactive Legend: ! Abnormal (H) High Hysterosalpingogram: 06/2023- with surgery. Patency of both tubes. See scanned record. 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 Treatment to date: Fertility Cycles Cycle Name Treatment Start Date Type Outcome Cycle Created on 12/16/2023 Planning Previoulsy has done ml 50mg with TI x 2 Past Medical History: Diagnosis Date CC (Crohn's colitis) (Multi) Endometriosis GERD (gastroesophageal reflux disease) Past Surgical History: Procedure Laterality Date PELVIC LAPAROSCOPY Current Outpatient Medications on File Prior to Visit Medication Sig Dispense Refill omeprazole-sodium bicarbonate (Zegerid) 40-1,680 mg packet packet Take 1 packet (40 mg) by mouth 2 times a day before meals. 0-FXOL-ZFVQV ACID-OM3 ORAL Take 1 capsule by mouth once daily. ustekinumab (Stelara) injection Inject 1 mL (90 mg) under the skin see administration instructions. No current facility-administered medications on file prior to visit. BMI: BMI Readings from Last 1 Encounters: 01/25/24 31.18 kg/m VITALS: Ht 1.6 m (5' 3 ) Wt 79.8 kg (176 lb) LMP 01/01/2024 BMI 31.18 kg/m LMP: Patient's last menstrual period was 01/01/2024. 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 COUNSELING Reviewed results in detail. We discussed that Clomid is used for ovulation induction. We discussed common side effects of Clomid including headaches, vision changes, hot flashes, mood changes, and breast tenderness. We discussed that there is an increased risk of multiple gestation with Clomid approximately 10% for twins and less than 1% for triplets. Counseled regarding option of selective reduction for higher order multiples. Clomid (clomiphene citrate) : 1 tablet (s) a day, cycle days 3-7 Note: 1st day of full flow is cycle day 1 Have sexual intercourse approximately every other day for 1 week beginning cycle day 11 You don't need temperature charts or LH predictor kits because normal cycle lengths indicate ovulatory cycles. If you are planning inseminations, you will use LH predictor kits for timing If normal 28 - 32 day cycle, repeat above for a total of 3 cycles Call office if: cycles longer than 35 days not after 3 regular cycles Side effects of clomid may include: abdominal discomfort and/or ovarian cysts headache hot flushes mood changes nausea visual changes If side effects are severe, alternative medications are available. Clomid has a 10% chance of multiple (twins or more). USING OVULATION PREDICTOR KITS Please call the office during the first few days of your menstrual period (wednesday-wednesday) to let us know you will be testing and doing an insemination (IUI) this cycle. - [facility] [place] [phone] - [place] [phone] Ovulation predictor kits test for LH hormone in your urine. There are a variety of kits available - Clear Blue Easy Digital (NOT the Advanced version) has worked well for many of our patients in the past. Please disregard the instructions on the test kit. Urinate upon rising in the morning but do not use the first morning urine for the test kit. We want you to use the second morning urine to test for your LH surge. PLEASE TEST ONLY ONCE A DAY. I have also sent in a prescription for progesterone for you. You can start it 4 days after a positive on your ovulation kit or 3 days after your IUI. You place the pill in the vagina. You can continue it nightly until the time of your expected period (two weeks after starting). At the time of your expected period, take a test. If it is positive, continue the progesterone and call the office. If it is negative, stop the prometrium and this will allow your period to come. Routine Testing [facility] STDs Within 1 year Genetic carrier Waiver/Completed T&S Within 1 year AMH Within 1 year TSH Within 1 year Rubella/Varicella Within 5 years BMI Testing [facility] CBC Within 1 year CMP Within 1 year HgbA1c Within 1 year Mag, Phos, Vit D <18 Within 1 year MFM > 40 REQ Wt loss consult > 40 OPT PLAN No orders of the defined types were placed in this encounter. FOLLOW UP Consults: n/a Engaged MD Take vitamins, vitamin D 2000 IUs daily Discussed that treatment cannot proceed until checklist items are complete. Additional testing for BMI < 18 or > 40: No. Chart to primary nurse for care coordination and patient check list/education. MD Completion: Ectopic Risk: Yes endometriosis Medically Complex: No Outstanding boarding pass items: n/a Fertility Plan Update: clomid 50mg/opk/IUI x 3 with luteal phase prometrium 100mg PV BID starting 3 days after IUI. Sarah Espino 01/25/2024 11:20 AM documented in this encounter [facility] Work Phone: 08-27-2023 Hospital Discharg e instructions Patient Education [...] what activities are safe for you. Take ewyg-gmj-xhvitvr and prescription medicines only as told by [...] 11/22/2001 Document Revised: 08/19/2018 Document Reviewed: 04/01/2018 [facility] Patient Education 2020 [employer]. 08/27/2023 13:15:43 Nausea and Vomiting, Adult Nausea [...] water added (diluted fruit juice). Eat bland, lewl-wy-twsetp foods in small amounts as you are able. These foods include bananas, applesauce, rice, lean meats, toast, and crackers. Avoid fluids that contain a lot of sugar or caffeine, such as energy drinks, sports drinks, and soda. Avoid alcohol. Avoid spicy or fatty foods. General instructions Take ihmk-otm-cwoggbg and prescription medicines only as told by your health care provider. Drink enough fluid to keep your urine pale yellow. Wash your hands often using soap and water. If soap and water are not available, use hand disease intervention specialist. Make sure that all people in your [...] eating and drinking to prevent dehydration. Take dyrh-dtc-nlqelix and prescription medicines only as told by [...] 08/16/2006 Document Revised: 12/08/2019 Document Reviewed: 01/24/2019 [facility] Patient Education 2020 [employer]. 08/27/2023 13:15:03 Endometrial Ablation, Care After Endometrial [...] are safe for you. General instructions Take dhdy-azq-wyawljt and prescription medicines only as told by [...] 06/28/2018 Document Revised: 12/07/2019 Document Reviewed: 06/28/2018 [facility] Patient Education 2020 [employer]. 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 You may take nouh-mez-tjefwun pain medication if you no longer need your prescribed pain medication. Chxd-pjz-icoglfh pain medications are Tylenol (acetaminophen) or Advil (ibuprofen). Do not take Tylenol if you are still taking [place] or Percocet. They are the same type [...] may have. Follow Up Care 08/02/2023 10:09:45 With:ERNA ISAACS MD Address: [address] [place] [address] [phone] When:Within 2 Week(s) [facility] 08-27-2023 Note Discharge Instructions Thank you for allowing [facility] to assist you with your healthcare needs. The following is important discharge information regarding your hospital visit. Your Care Team GUICHO MERCEDES MD Your Diagnosis Crohn's disease Family history of endometriosis Female infertility Postoperative pain What to do next Follow Up Appointments Follow Up with ERNA ISAACS MD When In 2 weeks Where: [address] [place] [address] [phone] The Following Activity and Diet Have Been [...] Duration: 14 Days Refills: 1 Pickup at [facility] #[id number] New acetaminophen-oxyCODONE (Percocet 5 mg-325 mg oral tablet) 1 tab(s) by mouth Every 4 hours as needed for for pain Postoperative pain Duration: 7 Days Pickup at [facility] #[id number] New ibuprofen (ibuprofen 800 mg oral tablet) 1 tab(s) by mouth Every 8 hours Duration: 14 Days Pickup at [facility] #[id number] New ondansetron (Zofran 4 mg oral tablet) 1 tab(s) by mouth Every 6 hours as needed for Nausea/Vomiting Duration: 5 Days Pickup at [facility] #[id number] Unchanged cholecalciferol (Vitamin D3) 25 Microgram by [...] Milliliter Subcutaneous Every 8 weeks Pharmacy Information [facility] #[id number]: [address] [place], [place] [id number] [phone] Please take this list to your next [...] what activities are safe for you. Take ardf-gsy-idivjbt and prescription medicines only as told by [...] 11/22/2001 Document Revised: 08/19/2018 Document Reviewed: 04/01/2018 [facility] Patient Education 2020 [facility] [employer] Nausea and Vomiting, Adult Nausea is [...] water added (diluted fruit juice). Eat bland, knpx-ot-qmntmf foods in small amounts as you are able. These foods include bananas, applesauce, rice, lean meats, toast, and crackers. Avoid fluids that contain a lot of sugar or caffeine, such as energy drinks, sports drinks, and soda. Avoid alcohol. Avoid spicy or fatty foods. General instructions Take ijow-skq-chqisrv and prescription medicines only as told by your health care provider. Drink enough fluid to keep your urine pale yellow. Wash your hands often using soap and water. If soap and water are not available, use hand disease intervention specialist. Make sure that all people in your [...] eating and drinking to prevent dehydration. Take azpe-hgu-teeaskd and prescription medicines only as told by [...] 08/16/2006 Document Revised: 12/08/2019 Document Reviewed: 01/24/2019 [facility] Patient Education 2020 [employer]. Endometrial Ablation, Care After This sheet gives [...] are safe for you. General instructions Take vgvd-mqt-lraghll and prescription medicines only as told by [...] 06/28/2018 Document Revised: 12/07/2019 Document Reviewed: 06/28/2018 [facility] Patient Education 2020 [facility] What to Do After Your Gynecology [...] as your pain allows. You may take ocsr-lpv-ltceedv pain medication if you no longer need your prescribed pain medication. Ounb-qxa-tjiuqeo pain medications are Tylenol (acetaminophen) or Advil (ibuprofen). Do not take Tylenol if you are still taking [place] or Percocet. They are the same type [...] to receive it can visit one of [facility] vaccine clinics. There are many vaccine clinic locations within the [facility]. For locations and available times, please visit https://gettheshot.coronavirus.o nho.gov/. It is important to note that some COVID mobile vaccine clinics are held outdoors and may be canceled in rainy or stormy conditions. To learn more about pediatric vaccinations (ages 5-11), we invite you to visit the [facility] webpage. https://www.[facility].org/p ages/5418-Ftoxn-Oisoicytzkb-Freq cfoxqt-Ebiok-Ektalkqkt.html To learn more about the COVID-19 vaccine, we invite you to visit the CDC website for a list of frequently asked questions.https://www.cdc.gov/co ronavirus/2019-ncov/vaccines/faq .html [facility] Access Instructions: Stay connected with your healthcare team and access your personal medical information anytime with the [facility] Patient Portal. Please follow the directions below to create your [facility] account: 1.Access the email account you provided upon registration to the hospital/physician office.2.Look for an invitation email from [facility].3.Open the email and access the invitation link: Accept Invitation to [facility].4.Fill in the required barnes to create your account. To access your account, visit [email or web address]. Click the blue button labeled Access Patient [...] you will allow to register on the [facility] Patient Portal for access to your information. You can also access the [facility] Patient Portal on the [facility] nancie. Simply click on Patient Portal and then log into your account. If you would like to receive a full copy of your medical records, please contact the [facility] Medical Records Department by calling [phone], Wednesday through Wednesday between 8 a.m. and [...] Call your local pharmacy or go to http://bit.ly/0M5Ye3e to find one close to you.3.Make use of household items: Use cat litter or old coffee grounds to dispose medications if other options are not available. Mix your drugs with these household products, seal them in an airtight container and throw it into the garbage. 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 I have received a written copy of the plan/instructions. If I have questions, I am aware that I should contact my doctor. Patient/Package Sorter Signature: Date/Time: Relationship to Patient: Witness Name/Signature: Date/Time: [facility] 08-27-2023 Note Date of Service 08/27/23 History [...] to patient stated satisfaction. Reviewed postop instructions. Erna Isaacs MD Digitally Signed by ERNA ISAACS MD on 08/27/2023 11:50 AM [facility] 08-27-2023 Anesthesiology Consult note Patient: MARIXA BRAGA Age: 28 years Sex: Female : 1995 Associated Diagnoses: None Author: CHELLY BUSTAMANTE OXYGEN EQUIPMENT AIDE-SATELLITE INSTALLATION TECHNICIAN Preoperative Information Time of last food or [...] list: Medical Crohn disease / SNOMED CT 48186504 / Confirmed Wellness examination / SNOMED CT 306695351 / Confirmed Weight gain / SNOMED CT 74624331 / Confirmed, Active Problems (4) Crohn disease GERD (gastroesophageal reflux disease) Weight gain Wellness examination Histories Past Medical History: Resolved ([id number]): Onset on 07/18/2018 at 23 years. Resolved in 2018 at 23 years. ([id number]): Onset on 07/19/2017 at 22 years. Resolved in 2018 at 22 years. Family History: Anxiety Sister Hypertension Father Heart disease Father Alcoholism Father Depression Father Procedure history: Colonoscopy ([id number]). 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 Substance Abuse 08/27/2023 Use: Never Tobacco 08/27/2023 Tobacco Use: Never (less than 100 in l Exercise 04/20/2023 Exercise type: Walking Times per week: 5-6 times/week Home/Environment 08/27/2023 Living situation: Home/Independent Domestic Concerns None Primary Box Spinner: Self Current Home Treatments None Special Services [...] Resp Rate 20 br/min (AUG 27 10:13) SLE078 mmHg (AUG 27 10:13) DBP81 mmHg (AUG 27 10:13) Measurements from flowsheet : Measurements 08/27/2023 10:13 EST Height 160 cm Admission Weight 75 kg Boyd Body Weight 52.38 kg Admission Body Mass [...] Height 160 cm Admission Weight 75 kg Boyd Body Weight 52.38 kg Admission Body Mass [...] Designated Person #1 We May Share LAURA Amos [phone] Designated Person #1 Relationship Spouse Privacy Restrictions [...] after midnight, No makeup, No jewelry, Responsible [employer] Party, Aware of surgery location, Pre-op education done, 1 bottle CHG wash with instructions given, Instructed to take ordered medications, SSI prevention handout given SN - Preprocedure Comments Spoke with patient, Verbalizes/Nonverbally indicates understanding, Other: Omeprazole Barriers to Learning None evident Teaching Method Explanation, Printed materials Preferred Spoken Language Italian Preferred Written Language Italian Teaching Evaluation No further teaching needed Safety Brochure Information Reviewed Unable to complete [facility] Welcome Video Viewed No Information Given by Patient [...] QC PRGUP Positive . Assessment and Plan [place] Society of Anesthesiologists (ASA) physical status classification: Class II. Anesthetic Preoperative Plan Premedication: intravenous. Anesthetic technique: General. Induction: intravenously. Maintenance airway: Oral endotracheal tube. Postoperative pain management: Per surgeon. Risks discussed: nausea, vomiting, sore throat. Informed consent: signed by patient. Digitally Signed by CHELLY BUSTAMANTE on 08/27/2023 11:44 AM [facility] 04-09-2023 Telephone encounter Note Name of caller: MARIXA Relation to patient: patient Contact phone number: [phone] Appointment scheduled with: LANDY BLAIR Appointment date & time: 05/04/23 @ 7:50 AM Reason for visit (are you having any symptoms) : Low blood pressure, unexpected weight gain Transportation issues/ concerns: NO Special accommodations? ( wheel chair, etc) : NO Current medications: STELARA Any refills need: NO Any chronic conditions the provider should be aware of: CHRON'S, 14 WEEKS [facility] 04-09-2023 Telephone encounter Note In order to comply with the No Surprises Act, [facility] is providing you with the following attachments. Any Good Cathy Estimate that may be provided are based on the services you are scheduled to receive. During your visit, there may be additional services required in order for the provider to complete your plan of care. DECLINED [facility] 04-09-2023 Miscellaneous Notes In order to comply with the No Surprises Act, [facility] is providing you with the following attachments. Any Good Cathy Estimate that may be provided are based on the services you are scheduled to receive. During your visit, there may be additional services required in order for the provider to complete your plan of care. DECLINED documented in this encounter [facility] 04-09-2023 Miscellaneous Notes Name of caller: MARIXA Relation to patient: patient Contact phone number: [phone] Appointment scheduled with: LANDY BLAIR Appointment date & time: 05/04/23 @ 7:50 AM Reason for visit (are you having any symptoms) : Low blood pressure, unexpected weight gain Transportation issues/ concerns: NO Special accommodations? ( wheel chair, etc) : NO Current medications: STELARA Any refills need: NO Any chronic conditions the provider should be aware of: CHRON'S, 14 WEEKS documented in this encounter [facility] 04-05-2023 Telephone encounter Note PATIENT SUBMITTED ONLINE APPOINTMENT REQUEST FOR A PCP APPOINTMENT. SPOKE TO PATIENT AND GOT SOME INFORMATION BUT SHE HAD TO GET OFF THE LINE AND STATES SHE WILL C/B. OK TO SCHEDULE WITH ANY PROVIDER WHEN PATIENT CALLS BACK. FirstName : Marixa LastName : OMI Pronouns : PronounsOther : Email : [email or web address] Phone : [phone] Birthdate : 1995 12:00:00 AM BestTimeToCallBack : Afternoon AppointmentDate : Kirk PhysicianRequested : Symptoms : Weight gain, low blood pressure OptIn : False [facility] 04-05-2023 Miscellaneous Notes PATIENT SUBMITTED ONLINE APPOINTMENT REQUEST FOR A PCP APPOINTMENT. SPOKE TO PATIENT AND GOT SOME INFORMATION BUT SHE HAD TO GET OFF THE LINE AND STATES SHE WILL C/B. OK TO SCHEDULE WITH ANY PROVIDER WHEN PATIENT CALLS BACK. FirstName : Marixa LastName : OMI Pronouns : PronounsOther : Email : [email or web address] Phone : [phone] Birthdate : 1995 12:00:00 AM BestTimeToCallBack : Afternoon AppointmentDate : Kirk PhysicianRequested : Symptoms : Weight gain, low blood pressure OptIn : False documented in this encounter [facility] Evaluation + Plan note No data available for this section [facility] Evaluation note Diagnosis Female infertility- Primary Female infertility of unspecified origin Endometriosis Endometriosis, site unspecified documented in this encounter [facility] Work Phone: Summary Purpose Family History No Family History Records FoundNo Family History Records Found No data available for this section No Family History Records FoundNo Family History Records Found Advance Directives No Advanced Directives Records FoundNo Advanced Directives Records FoundNo Advanced Directives Records FoundNo Advanced Directives Records Found Additional Source Comments INFORMATION SOURCE (unrecogn ized section and content) DATE CREATED AUTHOR 07/01/2019 [facility] DATE CREATED AUTHOR AUTHOR'S ORGANIZ ATION 04/10/2023 [facility] DATE CREATED AUTHOR AUTHOR'S ORGANIZ ATION 11/26/2023 [facility] ([place]) DATE CREATED AUTHOR AUTHOR'S ORGANIZ ATION 06/11/2024 [facility] Reason for Visit (unrecogniz ed section and content) Reason Onset Date Comments Appointment Request 04/05/2023 Reason Onset Date Comments NO SURPRISE ACT 04/09/2023 Reason Onset Date Comments New Patient 04/09/2023 Reason Comments Follow-up Patient Care team informatio n (unrecognized section and content) Care Team Personnel Name: GUICHO MERCEDES MD Position: P4 Physician - Primary Care Member Role: Primary Care Physician Address: Address: [address] [place] [id number] Name: YUE ALEMAN DO Member Role: Family Law Paralegal Address: Address: [address] [place] [address]- Name: MEHNAZ CEDILLO MD Position: OB Physician Member Role: OBGYN Address: Address: [address] [place] [address]- Care Team Related Persons Name: ECTOR SUZY FOR RECORDS PERTAINING TO PATIENTS WHO ARE [...] BE BASED ON THE PRIMARY CLINICAL RECORDS. [facility] [employer] Property Manager [facility]. provides no warranty or guarantee of the accuracy or completeness of information in this document.
[2024-06-24 10:09] LABS: ALB/GLOB Ratio 1.1 RATIO (0.9-2.4); AST(SGOT) 15 U/L (15-37); Alanine Aminotransfer ALT/SGPT 32 U/L (13-56); Albumin, Serum 3.9 g/dL (3.2-5.0); Alkaline Phosphatase 59 U/L (45-117); Anion Gap 4 (5-15); BUN 11 mg/dL (7-18); BUN/Creat Ratio 15.6 RATIO (10-20); Calcium,Total 9.4 mg/dL (8.5-10.1); Chloride 106 mmol/L (98-107); Creatinine, Serum 0.71 mg/dL (0.55-1.02); EST Glomerular Filtration Rate 103 mL/min (>60); Est Glom Filt Rate - Afr Amer 125 mL/min (>60); Globulin 3.7 g/dL (2.2-4.2); Glucose 96 mg/dL (74-106); Potassium 4.1 mmol/L (3.5-5.1); Protein, Total 7.6 g/dL (6.4-8.2); Sodium Level 136 mmol/L (136-145)
[2024-06-25 08:14] LABS: PROGESTERONE 0.3 ng/mL (.)
== END | disposition home or self-care (01) ==
LOC: LAB 08:20
PROVIDERS: Advanced Practice Midwife; PCP Family Medicine; Referring Provider Nurse Practitioner Family; Visit Provider Nurse Practitioner Family
DX: E66.89 Other obesity not elsewhere classified (principal); Z68.32 Body mass index [BMI] 32.0-32.9, adult; E28.2 Polycystic ovarian syndrome
CPT/HCPCS: 36415; 80053; 84144

== ENCOUNTER → 2025-01-06 | Outpatient (CLI) | payer BC, SELFPAY ==
[2025-01-06 09:09] LABS: Absolute Lymphocyte Count 2.66 X10^3/uL (0.83-4.51); Absolute Neutrophil Count 5.5 X10^3/uL (2.0-7.7); Basophil# 0.06 X10^3/uL; Basophil% 0.7 % (0-1); Eosinophil# 0.12 X10^3/uL; Eosinophils% 1.4 % (0-5); Hematocrit 34.3 % (37-47); Hemoglobin 11.2 g/dL (12.0-15.0); Lymphocyte # 2.66 X10^3/ul (0.83-4.51); Lymphocyte % 30.2 % (19-41); Mean Corp Hgb Conc 32.7 g/dL (32-36); Mean Corpuscular Hgb 29.6 pg (27.0-32.0); Mean Corpuscular Volume 90.7 fL (81-99); Monocyte# 0.41 X10^3/uL; Monocyte% 4.7 % (0-10); NRBC Flagged by Analyzer 0 % (0-5); Neutrophil # 5.52 X10^3/uL (2.7-7.7); Neutrophil % 62.7 % (47-70); Platelet Count 358 K/mm3 (150-450); RBC Distribution Width CV 12.3 % (11.6-14.6); RBC Distribution Width SD 40.6 fl (35.1-43.9); Red Blood Count 3.78 M/mm3 (4.2-5.4); White Blood Count 8.8 K/mm3 (4.4-11.0)
[2025-01-06 09:41] LABS: Erythrocyte Sedimentation Rate 8 mm/hr (0-30)
[2025-01-06 09:44] LABS: ALB/GLOB Ratio 1.4 RATIO (0.9-2.4); AST(SGOT) 18 U/L (<=31); Alanine Aminotransfer ALT/SGPT 15 U/L (<=34); Albumin, Serum 4.2 g/dL (3.5-5.0); Alkaline Phosphatase 57 U/L (35-104); Anion Gap 13 (5-15); BUN 11 mg/dL (4-19); BUN/Creat Ratio 15.8 RATIO (10-20); CRP 5.97 mg/L (0.0-3.0); Calcium,Total 9.2 mg/dL (7.6-11.0); Carbon Dioxide 21.3 mmol/L (21.0-32.0); Chloride 104 mmol/L (98-108); Creatinine, Serum 0.69 mg/dL (0.70-1.20); EST Glomerular Filtration Rate 120 (>60); Glucose 121 mg/dL (70-99); Potassium 3.7 mmol/L (3.3-5.1); Protein, Total 7.2 g/dL (5.9-8.4); Sodium Level 138 mmol/L (133-145); Total Bilirubin 0.32 mg/dL (0.00-1.30)
== END | disposition home or self-care (01) ==
LOC: LAB 08:20
PROVIDERS: PCP Family Medicine; Referring Provider Internal Medicine Gastroenterology; Visit Provider Internal Medicine Gastroenterology
DX: K51.30 Ulcerative (chronic) rectosigmoiditis without complications (principal)
CPT/HCPCS: 36415; 80053; 85025; 85652; 86140

== ENCOUNTER → 2025-02-02 | Outpatient (CLI) | payer BC, SELFPAY ==
[2025-02-02 15:22] LABS: Absolute Lymphocyte Count 1.71 X10^3/uL (0.83-4.51); Absolute Neutrophil Count 7.6 X10^3/uL (2.0-7.7); Basophil# 0.04 X10^3/uL; Basophil% 0.4 % (0-1); Eosinophil# 0.07 X10^3/uL; Eosinophils% 0.7 % (0-5); Hematocrit 33.6 % (37-47); Hemoglobin 11.2 g/dL (12.0-15.0); Lymphocyte # 1.71 X10^3/ul (0.83-4.51); Lymphocyte % 17.3 % (19-41); Mean Corp Hgb Conc 33.3 g/dL (32-36); Mean Corpuscular Hgb 29.9 pg (27.0-32.0); Mean Corpuscular Volume 89.6 fL (81-99); Mean Platelet Vol. 10.2 fl (6.2-12.0); Monocyte# 0.44 X10^3/uL; Monocyte% 4.5 % (0-10); NRBC Flagged by Analyzer 0 % (0-5); Neutrophil # 7.57 X10^3/uL (2.7-7.7); Neutrophil % 76.6 % (47-70); Platelet Count 388 K/mm3 (150-450); RBC Distribution Width CV 12.7 % (11.6-14.6); RBC Distribution Width SD 41.8 fl (35.1-43.9); Red Blood Count 3.75 M/mm3 (4.2-5.4); White Blood Count 9.9 K/mm3 (4.4-11.0)
[2025-02-02 15:26] LABS: International Normalized Ratio 0.9; Prothrombin Time (Protime)PT. 12.2 SECONDS (11.7-14.9)
[2025-02-02 16:37] LABS: ALB/GLOB Ratio 1.4 RATIO (0.9-2.4); AST(SGOT) 14 U/L (<=31); Alanine Aminotransfer ALT/SGPT 22 U/L (<=34); Albumin, Serum 4.3 g/dL (3.5-5.0); Alkaline Phosphatase 64 U/L (35-104); Anion Gap 13 (5-15); BUN 9 mg/dL (4-19); BUN/Creat Ratio 16.4 RATIO (10-20); Calcium,Total 9.2 mg/dL (7.6-11.0); Carbon Dioxide 18.9 mmol/L (21.0-32.0); Chloride 103 mmol/L (98-108); Creatinine, Serum 0.56 mg/dL (0.70-1.20); EST Glomerular Filtration Rate 126 (>60); Erythrocyte Sedimentation Rate 28 mm/hr (0-30); Globulin 3.1 g/dL (2.2-4.2); Glucose 132 mg/dL (70-99); Potassium 3.9 mmol/L (3.3-5.1); Protein, Total 7.4 g/dL (5.9-8.4); Sodium Level 134 mmol/L (133-145); Total Bilirubin < 0.15 mg/dL (0.00-1.30)
--- OUTSIDE RECORDS SUMMARY | 2025-02-02 19:06 | XMS RPT_ITS | CCD ---
Author Organization [facility] Care Team Providers Care Outreach Nurse Name Role Phone Care Physician, No Primary Primary Care Provider Unavailable Care Physician, No Primary Referring Provider Un available FriendDr. Oliveros Attending Provider [phone] Ezequiel VU NP-Rosa Fernández Attending Provider [phone] Care Physician, No Primary Primary Care Provider Unavailable Care Physician, No Primary Referring Provider Un available Care Physician, No Primary Primary Care Provider Unavailable Care Physician, No Primary Referring Provider Un available Ezequiel VU NP-C Imelda Fernández Attending Provider [phone] Unavailable Primary Care Provider Unavailabl e Care Physician, No Primary Primary Care Provider Unavailable Care Physician, No Primary Referring Provider Un available FriendDr. Oliveros Attending Provider [phone] CATRACHITO MERCEDES MD Primary Care Physician FriendDr. Oliveros Other Provider [phone] MAGO, NASTAMICHEL Primary Care Provider Unavailab le MAGO, NASTARAN Referring Provider Unavailable Care Physician, No Primary Primary Care Provider Unavailable Care Physician, No Primary Referring Provider Un available FriendDr. Oliveros Attending Provider [phone] [address] Oliveros Other Provider [phone] MAGO, NASTARAN Primary Care Provider Unavailab le MAGO, NASTAMICHEL Referring Provider Unavailable ERNA TROTTER MD Attending Unavailable ERNA TROTTER MD Consulting Unavailable MAGO BLANCO, CATRACHITO Primary Care Unavailable CATRACHITO MERCEDES MD Primary Care Unavailable MAKI MESSINAN-SUGAR REFINER, SHREYA Attending Unavail able ERNA TROTTER MD Attending Unavailable MAGO BLANCO, CATRACHITO Primary Care Unavailable CATRACHITO MERCEDES MD Attending Unavailable MAGO BLANCO, CATRACHITO Primary Care Unavailable ERNA TROTTER MD Attending Unavailable MAGO BLANCO, CATRACHITO Primary Care Unavailable Friend, Dr. Oliveros Attending Provider [phone] Care Physician, No Primary Referring Provider Un available STEFANIE Lo Attending Provider Unavailable Primary Care Provider Unavailvy Cherry RN, Amy Unavailable Unavailable Jo Ann MARQUEZ, Amy Unavailable Unavailable Denise Ordonez MD Primary Care Provider [phone] MARCIA KISER Attending Unavailable MARCIA KISER Attending Unavailable ANABELL MICHAEL Attending Unava ilable DENISE ORDONEZ Primary Care Unavailable Friend DO, Dr. Oliveros Attending Provider Mago BLANCO, Dr. Winston Primary Care Provider Mago BLANCO, Dr. Winston Referring Provider Friend DO, Dr. Oliveros Referring Provider DENISE ORDONEZ Attending Unavailable DENISE ORDONEZ Primary Care Unavailable DENISE ORDONEZ Primary Care Unavailable Manfred BLANCO, Dr. Morales Attending Provider IMELDA POLLARD Attending Unavailable GAVINO TRISTAN Attending Unavailable OMITIMELDA Referring Unavailable SHO, ALEJANDRA D Referring Unavailable FLYCKTNATALIIACA Analilia Referring Unavailable SHO, ALEJANDRA D Referring Unavailable SHO, ALEJANDRA D Referring Unavailable SHO, ALEJANDRA D Referring Unavailable SHO, ALEJANDRA D Referring Unavailable HENRIETTA HERNDON Attending Unavailable KATELYN BENITEZ Referring Unavailable SHO, ALEJANDRA D Referring Unavailable SHO, ALEJANDRA D Referring Unavailable SHO, ALEJANDRA D Referring Unavailable SHO, ALEJANDRA D Referring Unavailable SHO, ALEJANDRA D Referring Unavailable HENRIETTA HERNDON Attending Unavailable KATELYN BENITEZ Referring Unavailable FLYLUIS FELIPETNATALIIACA Analilia Referring Unavailable DENISE ORDONEZ Primary Care Unavailable DENISE ORDONEZ Primary Care Unavailable DENISE ORDONEZ Primary Care Unavailable GAVINO TRISTAN Attending Unavailable OMITIMELDA Referring Unavailable DENISE ORDONEZ Primary Care Unavailable DENISE ORDONEZ Primary Care Unavailable SRINIVAS, SARAH L Referring Unavailable CATIA ORDONEZORY L Primary Care Unavailable SRINIVAS, SARAH L Attending Unavailable JOSÉ LUIS, DENISE L Primary Care Unavailable SRINIVAS, SARAH L Referring Unavailable ORDONEZ, DENISE L Primary Care Unavailable ELI, KATELYN R Attending Unavailable ORDONEZ, DENISE L Primary Care Unavailable ELI, KATELYN R Referring Unavailable ORDONEZ, DENISE L Primary Care Unavailable ELI, KATELYN R Attending Unavailable ORDONEZ, DENISE L Primary Care Unavailable Carmen Shearer Attending Unavailable Mago, Nastaran Primary Care Unavailable Mago, Nastaran Referring Unavailable Mago, Nastaran Primary Care Unavailable Friend, Domo Attending Unavailable Mago, Nastaran Referring Unavailable Iesha Lo Attending Unavailable Iesha Lo Referring Unavailable DOCTOR, OUT OF TOWN Primary Care Unavailable Mago, Nastaran Primary Care Unavailable Friend, Domo Attending Unavailable Friend, Domo Referring Unavailable DOCTOR, OUT OF TOWN Primary Care Unavailable Renetta Cha Attending Unavailable Renetta Cha Referring Unavailable DOCTOR, OUT OF TOWN Primary Care Unavailable Renetta Cha Attending Unavailable Renetta Cha Referring Unavailable Iesha Lo Consulting Unavailable Mago, Nastaran Primary Care Unavailable Renetta Cha Referring Unavailable Renetta Cha Attending Unavailable Mago, Nastaran Primary Care Unavailable Carmen Shearer Attending Unavailable Mago, Nastaran Referring Unavailable Renetta Cha Attending Unavailable Iesha Lo Attending Unavailable Mago, Nastaran Referring Unavailable Mago, Nastaran Primary Care Unavailable DOCTOR, OUT OF TOWN Primary Care Unavailable DOCTOR, OUT OF TOWN Referring Unavailable Renetta Cha Attending Unavailable Renetta Cha Attending Unavailable Mago, Nastaran Primary Care Unavailable Mago, Nastaran Referring Unavailable Mago, Nastaran Primary Care Unavailable Charan PAPER REELERJesika Attending Unavailable Mago, Nastaran Referring Unavailable Medications Current Medications Medication Drug Class(es) Dates Sig (Normalized) Sig (Original) acetaminophen 500 mg oral tablet (1 source) Start: 08-27-2023 End: 09-24-2023 Tylenol Extra Strength 500 mg oral tablet Dose : 500 mg = 1 tab(s), Oral, q4h, X 14 day(s), # 30 tab(s), 1 Refill(s), 09/24/23 11:51:00 AM [facility], Pharmacy: [id number], 160, cm, 08/27/23 10:15:00 EST, Height, kg, [...] day(s), # 12 tab(s), 0 Refill(s), [id number], Postoperative pain, 160, cm, 08/27/23 10:15:00 EST, Height, 75, kg, 08/27/23 10:15:00 EST, Dosing Weight Start Date: 08/27/23 Stop Date: 09/03/23 Status: Ordered aspirin 81 mg delayed release oral tablet (10 sources) Platelet Aggregation Inhibitor, Nonsteroidal Anti-inflammatory Drug Start: 11-28-2024 End: 11-28-2025 take 1 tablet by mouth once daily Aspirin (Adult Aspirin Regimen) 81 mg tablet,delayed release (DR/EC) Active 81 mg PO daily January 01, 2025 12:00am cholecalciferol, vitamin D3, (VITAMIN D3 ORAL) (20 sources) Start: 04-20-2023 cholecalciferol, vitamin D3, (VITAMIN D3 ORAL) Take by mouth. 04/20/2023 Active CoQ-10 with Black Pepper Extract 400 mg oral capsule (2 sources) Start: 08-13-2023 take 1 capsule by mouth once daily CoQ-10 with Black Pepper Extract 400 mg oral capsule 1 cap, Oral, Daily, 0 Refill(s) Start Date: 08/13/23 Status: Ordered doxycycline monohydrate 100 mg oral capsule (10 sources) Tetracycline-class Drug Start: 11-28-2024 End: 11-28-2025 doxycycline (Monodox) 100 mg capsule Indications: Female infertility Take 1 capsule (100 mg) by mouth 2 times a day. Take with at least 8 ounces (large glass) of water, do not lie down for 30 minutes after 8 capsule 11/28/2024 11/28/2025 Active Start: 08-14-2024 End: 08-28-2024 doxycycline (Monodox) 100 mg capsule Indications: Endometritis Take 1 capsule (100 mg) by mouth 2 times a day for 14 days. Take with at least 8 ounces (large glass) of water, do not lie down for 30 minutes after 28 capsule 08/14/2024 08/28/2024 Active estradiol 2 mg oral tablet (11 sources) Estrogen Start: 11-28-2024 End: 11-28-2025 take 3 tablets by mouth once daily Estradiol (Estrace) 2 mg tablet Active 6 mg PO daily January 01, 2025 12:00am Start: 11-28-2024 End: 12-11-2024 estradiol (Estrace) 2 mg tab let Indications: Female infertility Insert 1 tablet (2 mg) into the vagina 2 times a day. 11/28/2024 12/11/2024 Discontinued (Med List Cleanup) ibuprofen 800 mg oral tablet (1 source) Nonsteroidal Anti-inflammatory Drug Start: 08-27-2023 End: 09-10-2023 ibuprofen 800 mg oral tablet Dose : 800 mg = 1 tab(s), Oral, q8h, X 14 day(s), # 42 tab(s), 0 Refill(s), 09/10/23 11:51:00 AM EST, Pharmacy: [facility] #[id number], 160, cm, 08/27/23 10:15:00 EST, Height, kg, 08/27/23 10:15:00 EST, Dosing Weight Start Date: 08/27/23 Stop Date: 09/10/23 Status: Ordered lidocaine 25 mg/ml / prilocaine 25 mg/ml topical cream (8 sources) Antiarrhythmic, Amide Local Anesthetic Start: 11-28-2024 End: 11-28-2025 lidocaine-prilocain e (Emla) 2.5-2.5 % cream Indications: Female infertility Apply topically once daily. Apply to treatment area 1 hour prior to injection. 30 g 2 11/30/2024 4:28 PM EDT 11/28/2024 11/28/2025 Active metFORMIN hydrochloride 1000 mg oral tablet (20 sources) Biguanide Start: 05-30-2025 Metformin 1,00 0 mg tablet Active 1500 mg PO daily January 26, 2025 12:00am Start: 12-25-2024 End: 03-25-2025 take 3 tablets by mouth once daily in the evening metFORMIN (Glucophage) 500 mg tablet Indications: polycystic ovarian syndrome Take 3 tablets (1,500 mg) by mouth once daily in the evening. 3 tablets 90 tablet 2 12/25/2024 03/25/2025 Active Start: 07-25-2024 End: 12-11-2024 take 1 tablet by mouth once daily at mealtime, then take 2 tablets by mouth once daily at mealtime, then take 3 tablets by mouth once daily at mealtime metFORMIN XR (Glucophage-XR) 500 mg 24 hr tablet Indications: Female infertility Take 1 tablet (500 mg) by mouth once daily in the evening. Take with meals for 7 days, THEN 2 tablets (1,000 mg) once daily in the evening. Take with meals for 7 days, THEN 3 tablets (1,500 mg) once daily in the evening. Take with meals. Do not crush, chew, or split.. 90 tablet 11 07/25/2024 12/11/2024 Discontinued (Duplicate order) metFORMIN (Gluco phage) 500 mg tablet Indications: polycystic ovarian syndrome Take 1 tablet (500 mg) by mouth once daily. 3 tablets Active Mv-Mins 98-Ykxz-Wejgq No.1-Dha (Pnv-[place]) 28-1-300 mg capsule (1 source) Start: 01-26-2025 Mv-Mins 71-Iro n-Folic No.1-Dha (Pnv-[place]) 28-1-300 mg capsule Active NMA PO January 26, 2025 12:00am ondansetron 4 mg oral tablet (1 source) Serotonin-3 Receptor Antagonist Start: 08-27-2023 End: 09-01-2023 Zofran 4 mg oral tablet Dose : 4 mg = 1 tab(s), Oral, q6h, PRN Nausea/Vomiting, X 5 day(s), # 20 tab(s), 0 Refill(s), 09/01/23 11:51:00 AM EST, Pharmacy: [facility] #[id number], 160, cm, 08/27/23 10:15:00 EST, Height, kg, 08/27/23 10:15:00 EST, Dosing Weight Start Date: 08/27/23 Stop Date: 09/01/23 Status: Ordered predniSONE 10 mg oral tablet (20 sources) Start: 01-26-2025 Prednisone 10 mg tablet Active 10 mg PO daily January 26, 2025 12:00am Stop at 12 weeks Start: 11-28-2024 End: 11-28-2025 take 1 tablet by mouth once daily Prednisone 10 mg tablet Active 10 mg PO daily January 01, 2025 12:00am Start: 02-11-2022 End: 03-06-2022 Prednisone 10 mg tablet Disc ontinued 0 PO DAILY February 12, 2022 4:09pm March 06, 2022 8:00am Take 3 tabs for five days, two tabs for five day and then one tab. Start: 02-11-2022 End: 03-06-2022 Prednisone Discontinued 0 PO DAILY February 12, 2022 3:09pm March 06, 2022 7:00am Take 3 tabs for five days, two tabs for five day and then one tab. Prenat.Vits,Mario,Iae-Hrwe-Ztw ic (10 sources) Start: 10-22-2021 take 1 tablet by mouth once daily Prenat.Vits,Mario,Uzq-Kdrw-Emhov Active 1 TABLET PO DAILY October 22, 2021 9:52am Start: 10-22-2021 take 1 tablet by damon th once daily Prenat.Vits,Mario,Pvg-Jdbl-Zzqug Active 1 TABLET PO DAILY October 22, 2021 12:00am Start: 10-22-2021 take 1 tablet by damon th once daily Prenat.Vits,Mario,Ouv-Fkwq-Upbxd Active 1 TABLET PO DAILY October 22, 2021 1:00am 4-GMQK-IWTWH ACID-OM3 ORAL (20 sources) Start: 12-07-2019 take 1 capsule by mouth once daily 6-FSVT-ZHYUM ACID-OM3 ORAL Take 1 capsule by mouth once daily. 12/07/2019 Active Multivitamins (2 sources) Start: 04-20-2023 take 1 tablet by mouth once daily Multivitamins Dose = 1 tab(s), Oral, qDay, 0 Refill(s) Start Date: 04/20/23 Status: Ordered progesterone 50 mg/ml injectable solution (8 sources) Progesterone Start: 11-28-2024 End: 11-28-2025 progesterone 50 mg/mL injection Indications: Female infertility Inject 1.5 mL (75 mg) into the muscle once daily. Inject into the muscle at the same time each morning as directed per provider. 50 mL 3 01/15/2025 3:04 PM EDT 11/28/2024 11/28/2025 Active progesterone oil (3 sources) Start: 01-26-2025 inject 75 mg by intramuscular injection at bedtime progesterone oil Active 75 mg IM AT BEDTIME January 26, 2025 1:05pm last dose 02/21 Start: 01-01-2025 End: 01-26-2025 progesterone oil Discontinue d IM January 01, 2025 12:00am January 26, 2025 1:08pm Start: 01-01-2025 progesterone o il Active IM January 01, 2025 12:00am 72 hr scopolamine 0.0139 mg/hr transdermal system (1 source) Anticholinergic Start: 10-11-2024 1 patch, trans dermal, Administer over 72 Hours, Every 72 hours, First dose on Wed10/11/24 at 1245, Apply to hairless area of skin behind the ear. transparent dressings 2 3/8 X 2 3/4 bandage (8 sources) Start: 11-28-2024 End: 02-26-2025 transparent dressings 2 3/8 X 2 3/4 bandage Indications: Female infertility Use as directed to cover lidocaine cream. 30 each 3 11/30/2024 4:28 PM EDT 11/28/2024 02/26/2025 Active ubidecarenone (COQ-10 ORAL) (20 sources) Start: 08-13-2023 End: 01-11-2025 ubidecarenone (COQ-10 ORAL) Take 400 mg by mouth. 08/13/2023 01/11/2025 Discontinued (Med List Cleanup) Start: 08-13-2023 ubidecarenone (COQ-10 ORAL) Take 400 mg by mouth. 08/13/2023 Active Vitamin D3 (2 sources) Start: 04-20-2023 take 1 dose by mouth once daily Vitamin D3 Dose : 25 mcg =, Oral, qDay, 0 Refill(s) Start Date: 04/20/23 Status: Ordered Completed/Discontinued Medications Medication Drug Class(es) Dates Sig (Normalized) Sig (Original) 0.8 ml adalimumab 100 mg/ml auto-injector (20 sources) Tumor Necrosis Factor Abdi Start: 09-15-2021 End: 03-10-2022 Adalimumab (Humira(Cf)) 40 mg/0.4 mL syringe kit Discontinued 0 SC .COMPLEX 2 September 15, 2021 1:00am March 10, 2022 2:29pm inject one - 40 mg/0.8 mL syringe every 2 weeks subcut Start: 09-15-2021 End: 09-17-2021 Adalimumab (Humira(Cf) Pen) 80 mg/0.8 mL pen injector kit Discontinued 80 mg SC DAILY 1.6 2 September 15, 2021 1:00am September 16, 2021 1:00am September 17, 2021 1:01am Administer 2 pens to equal 160mg on day one. On day 15 administer one pen to equal 80mg Start: 09-15-2021 End: 03-10-2022 Adalimumab (Humira(Cf)) 40 m g/0.4 mL syringe kit Discontinued 0 SC .COMPLEX 2 September 15, 2021 1:00am March 10, 2022 2:29pm inject one - 40 mg/0.8 mL syringe every 2 weeks subcut azaTHIOprine 50 mg oral tablet (20 sources) Purine Antimetabolite Start: 09-15-2021 End: 03-06-2022 take 2 tablets by mouth once daily Azathioprine 50 mg tablet Discontinued 50 mg PO DAILY 180 September 19, 2021 5:56pm March 06, 2022 8:00am take two tablets one time a day budesonide 3 mg delayed release oral capsule (15 sources) Corticosteroid Start: 01-06-2024 End: 07-12-2024 take 1 capsule by mouth once daily Budesonide 3 mg capsule,delayed,ex tend.release Discontinued 3 mg PO DAILY January 06, 2024 12:00am July 12, 2024 9:31am Start: 12-15-2023 End: 07-12-2024 Budesonide 3 mg capsule,rosa rosenda,extend.release Discontinued 3 mg PO TWICE A DAY 119 December 15, 2023 12:00am July 12, 2024 9:31am take 2 tablets by mouth once a day for 8 weeks, and then take 1 tablet by mouth one a day for one week. Start: 03-05-2022 End: 03-06-2022 Budesonide 2 mg/actuation fo am Discontinued 1 NMA RC TWICE A DAY 66.8 March 05, 2022 12:00am April 01, 2022 12:00am March 06, 2022 8:00am use twice a day for 2 weeks, then once a day for 2 weeks Start: 03-05-2022 End: 03-06-2022 Budesonide Discontinued 1 AP PFUL RC TWICE A DAY 66.8 March 05, 2022 12:00am March 06, 2022 8:00am use twice a day for 2 weeks, then once a day for 2 weeks cabergoline 0.5 mg oral tablet (10 sources) Ergot Derivative Start: 10-09-2024 End: 12-11-2024 take 1 tablet by mouth once daily in the evening cabergoline (Dostinex) 0.5 mg tablet Indications: Female infertility Take 1 tablet (0.5 mg) by mouth once daily. Take one tablet in the evening for 8 days starting with trigger shot 8 tablet 10/09/2024 12/11/2024 Discontinued (Med List Cleanup) Cholecalciferol (2 sources) Vitamin D Start: 07-12-2024 End: 01-26-2025 Cholecalciferol (Vitamin D3) 62.5 mcg (2,500 unit) capsule Discontinued ug PO July 12, 2024 1:00am January 26, 2025 1:03pm Start: 07-12-2024 Cholecalcifero l (Vitamin D3) 62.5 mcg (2,500 unit) capsule Active ug PO July 12, 2024 1:00am chorionic gonadotropin 27604 unt/ml injectable solution (15 sources) Gonadotropin Start: 11-07-2024 End: 11-22-2024 inject 96032 [IU] by subcutaneous injection once chorionic gonadotropin (Pregnyl) 10,000 unit injection Indications: Female infertility Reconstitute according to instructions and inject 10,000 units (1 mL) under the skin as a one time dose, as directed per provider for trigger. 1 each 11/08/2024 11/22/2024 Discontinued (Therapy completed) Start: 08-18-2024 End: 10-11-2024 inject 43148 [IU] by subcutaneous injection once chorionic gonadotropin (Pregnyl) 10,000 unit injection Indications: Female infertility Reconstitute according to instructions and inject 10,000 units (1 mL) under the skin as a one time dose, as directed per provider for trigger. 1 each 08/18/2024 10/11/2024 Discontinued (Therapy completed) dicyclomine hydrochloride 20 mg oral tablet (9 sources) Anticholinergic Start: 08-09-2023 End: 09-08-2023 take 1 tablet by mouth three times daily Dicyclomine 20 mg tablet Discontinued 20 mg PO THREE TIMES A DAY August 09, 2023 1:00am September 07, 2023 1:00am September 08, 2023 1:04am [place] 8-Zsg-Lta-Fish Oil (2 sources) Start: 07-12-2024 End: 01-26-2025 [place] 4-Wea-Zvv-Fish Oil (Fish Oil) 300-1,000 mg capsule Discontinued 1 NMA PO daily July 12, 2024 1:00am January 26, 2025 1:04pm Start: 07-12-2024 [place] 3-Dha-Ep a-Fish Oil (Fish Oil) 300-1,000 mg capsule Active 1 NMA PO daily July 12, 2024 1:00am Ethinyl Estradiol / norgestimate (16 sources) Progestin, Estrogen Start: 08-17-2024 End: 12-11-2024 take 1 tablet by mouth once daily norgestimate-ethinyl estradiol (Ortho-Cyclen) 0.25-35 mg-mcg tablet Indications: Female infertility Take 1 tablet by mouth once daily. Take active pills only as directed per provider 28 tablet 2 08/17/2024 12/11/2024 Discontinued (Med List Cleanup) Start: 08-17-2024 End: 08-17-2025 take 1 tablet by mouth once daily norgestimate-ethinyl estradiol (Ortho-Cyclen) 0.25-35 mg-mcg tablet Indications: Female infertility Take 1 tablet by mouth once daily. Take active pills only as directed per provider 28 tablet 2 08/17/2024 08/17/2025 Active follicle stimulating hormone 75 unt / luteinizing hormone 75 unt injection (15 sources) Gonadotropin Start: 11-07-2024 End: 11-22-2024 inject 75 [IU] by subcutaneous injection once daily in the evening menotropins (Menopur) 75 unit recon soln injection Indications: Female infertility Reconstitute and inject 75 Units under the skin once daily in the evening. Inject under the skin as directed by provider 10 each 2 11/08/2024 11/22/2024 Discontinued (Therapy completed) Start: 08-18-2024 End: 10-11-2024 inject 75 [IU] by subcutaneous injection once daily in the evening menotropins (Menopur) 75 unit recon soln injection Indications: Female infertility Inject 75 Units under the skin once daily in the evening. Inject under the skin as directed by provider 10 each 2 08/18/2024 10/11/2024 Discontinued (Therapy completed) 0.75 ml follitropin sumanth 600 unt/ml pen injector (1 source) Start: 11-07-2024 End: 11-08-2024 inject 100 [IU] by subcutaneous injection once daily in the evening follitropin sumanth (Gonal-f) 450/0.75 unit/mL pen injector pen injection Indications: Female infertility Inject 100 Units under the skin once daily in the evening. Inject under the skin as directed by provider 3 each 1 11/07/2024 11/08/2024 Discontinued (Med List Cleanup) 0.72 ml follitropin beta 833 unt/ml cartridge (14 sources) Start: 11-08-2024 End: 11-22-2024 inject 100 [IU] by subcutaneous injection once daily in the evening follitropin beta (Follistim AQ) 600 unit/0.72 mL injection Indications: Female infertility Inject 100 Units under the skin once daily in the evening. Inject under the skin as directed by provider 2 each 2 11/08/2024 11/22/2024 Discontinued (Therapy completed) Start: 08-18-2024 End: 10-11-2024 inject 150 [IU] by subcutaneous injection once daily in the evening follitropin beta (Follistim AQ) 600 unit/0.72 mL injection Indications: Female infertility Inject 150 Units under the skin once daily in the evening. Inject under the skin as directed by provider 3 each 2 08/18/2024 10/11/2024 Discontinued (Therapy completed) 0.5 ml ganirelix acetate 0.5 mg/ml prefilled syringe (15 sources) Gonadotropin Releasing Hormone Antagonist Start: 11-07-2024 End: 11-22-2024 inject 250 ug by subcutaneous injection once daily ganirelix (Orgalutran) 250 mcg/0.5 mL syringe injection Indications: Female infertility Inject 250 mcg (1 syringe) under the skin once daily as directed per provider. 5 each 2 11/08/2024 11/22/2024 Discontinued (Therapy completed) Start: 08-18-2024 End: 10-11-2024 inject 250 ug by subcutaneous injection once daily ganirelix (Orgalutran) 250 mcg/0.5 mL syringe injection Indications: Female infertility Inject 250 mcg (1 syringe) under the skin once daily as directed per provider. 5 each 2 08/18/2024 10/11/2024 Discontinued (Therapy completed) hydrocortisone 1.67 mg/ml enema (18 sources) Corticosteroid Start: 11-16-2022 End: 12-07-2022 Hydrocortisone 100 mg/60 mL enema Discontinued 100 mg RC AT BEDTIME 1260 November 16, 2022 12:00am December 06, 2022 12:00am December 07, 2022 12:04am Start: 03-06-2022 End: 11-16-2022 Hydrocortisone Acetate 10 % (80 mg) foam Discontinued 1 NMA RC TWICE A DAY 15 March 06, 2022 12:00am November 16, 2022 10:30am Start: 03-06-2022 End: 11-16-2022 Hydrocortisone Acetate Disco ntinued 1 APPFUL RC TWICE A DAY 15 March 06, 2022 12:00am November 16, 2022 10:30am hyoscyamine sulfate 0.125 mg sublingual tablet (10 sources) Start: 03-05-2022 End: 07-12-2024 Hyoscyamine Sulfate 0.125 mg tablet, sublingual Discontinued 0.125 mg PO 2 to 4 times per day as needed for abdominal discomfort March 05, 2022 12:00am July 12, 2024 9:31am letrozole 2.5 mg oral tablet (4 sources) Aromatase Inhibitor Start: 03-27-2024 End: 04-01-2024 Letrozole 2.5 mg tablet Discontinued 5 mg PO DAILY 10 March 27, 2024 12:00am March 31, 2024 12:00am April 01, 2024 12:08am begin between days 3 and 7 of menstrual cycle Start: 01-31-2024 End: 02-05-2024 Letrozole 2.5 mg tablet Disc ontinued 5 mg PO DAILY 10 5 January 31, 2024 12:00am February 04, 2024 12:00am February 05, 2024 12:16am begin between days 3 and 7 of menstrual cycle leuprolide acetate 5 mg/ml injectable solution (15 sources) Gonadotropin Releasing Hormone Receptor Agonist Start: 11-07-2024 End: 11-22-2024 leuprolide (Lupron) 1 mg/0.2 mL injection Indications: Female infertility Using an insulin syringe, draw up 80 units and inject under the skin as a one time dose, as directed per provider for trigger. 1 kit 11/08/2024 11/22/2024 Discontinued (Therapy completed) Start: 08-18-2024 End: 10-11-2024 leuprolide (Lupron) 1 mg/0.2 mL injection Indications: Female infertility Using an insulin syringe, draw up 80 units and inject under the skin as a one time dose, as directed per provider for trigger. 1 kit 08/18/2024 10/11/2024 Discontinued (Therapy completed) omeprazole 20 mg delayed release oral capsule (20 sources) Proton Pump Inhibitor Start: 08-03-2023 take 1 capsule by mouth every twelve hours omeprazole (PriLOSEC) [address] capsule Take 1 capsule (20 mg) by mouth every 12 hours. 08/03/2023 Active Start: 04-10-2022 End: 01-26-2025 take 1 capsule by mouth twice daily Omeprazole 20 mg capsule,delayed release(DR/EC) Discontinued 20 mg PO TWICE A DAY 180 90 August 07, 2024 11:18am January 26, 2025 1:04pm omeprazole 40 mg / sodium bicarbonate 1680 mg powder for oral suspension (12 sources) Proton Pump Inhibitor Start: 11-05-2021 End: 10-11-2024 take 1 dose by mouth twice daily before mealtime omeprazole-sodium bicarbonate (Zegerid) 40-1,680 mg packet packet Take 1 packet (40 mg) by mouth 2 times a day before meals. 11/05/2021 10/11/2024 Discontinued (Therapy completed) pen injector, for follitropin, pen injector (6 sources) Start: 11-08-2024 End: 11-22-2024 inject 100 [IU] by subcutaneous injection once daily pen injector, for follitropin, pen injector Indications: Female infertility Inject 100 Units under the skin once daily. Use as directed to administer Follistim 1 each 11/08/2024 11/22/2024 Discontinued (Therapy completed) Start: 11-08-2024 inject 100 [IU] by s ubcutaneous injection once daily pen injector, for follitropin, pen injector Indications: Female infertility Inject 100 Units under the skin once daily. Use as directed to administer Follistim 1 each 11/08/2024 Active Prenat.Vits,Mario,Xrw-Jrxn-Ctp ic tablet (2 sources) Start: 10-22-2021 End: 01-26-2025 Prenat.Vits,Mario,Kke-Blkj-Szg ic tablet Discontinued 1 {tbl} PO DAILY October 22, 2021 1:00am January 26, 2025 1:05pm Start: 10-22-2021 Prenat.Vits,Ca l,Yzf-Paxr-Yvdum tablet Active 1 {tbl} PO DAILY October 22, 2021 1:00am somatropin 5 mg/ml injectable solution (7 sources) Recombinant Human Growth Hormone Start: 11-07-2024 End: 11-22-2024 inject 1.14 mL by subcutaneous injection once daily somatropin (Omnitrope) Indications: Female infertility Draw up 1.14 mL of Bacteriostatic Water and inject into Omnitrope vial. Using an insulin syringe, draw up 25 units and inject under the skin once daily as directed per provider. 2 each 2 11/16/2024 4:33 PM EDT 11/07/2024 11/22/2024 Discontinued (Therapy completed) syringe, disposable, (BD Safety-Debby with Luer-Debby) 3 mL syringe (20 sources) Start: 11-08-2024 End: 11-22-2024 syringe, disposable, (BD Safety-Debby with Luer-Debby) 3 mL syringe Indications: Female infertility Use as directed to mix and administer HCG trigger 1 each 11/08/2024 11/22/2024 Discontinued (Therapy completed) Start: 11-08-2024 End: 11-22-2024 syringe, disposable, (BD Saf ety-Debby with Luer-Debby) 3 mL syringe Indications: Female infertility Use as directed to mix and administer Menopur 30 each 3 11/08/2024 11/22/2024 Discontinued (Therapy completed) Start: 11-08-2024 syringe, dispo sable, (BD Safety-Debby with Luer-Debby) 3 mL syringe Indications: Female infertility Use as directed to mix and administer HCG trigger 1 each 11/08/2024 Active Start: 11-08-2024 syringe, dispo sable, (BD Safety-Debby with Luer-Debby) 3 mL syringe Indications: Female infertility Use as directed to mix and administer Menopur 30 each 3 11/08/2024 Active Start: 08-18-2024 End: 11-08-2024 syringe, disposable, (BD Saf ety-Debby with Luer-Debby) 3 mL syringe Indications: Female infertility Use as directed to mix and administer Menopur 30 each 3 08/18/2024 11/08/2024 Discontinued (Med List Cleanup) Start: 08-18-2024 End: 11-08-2024 syringe, disposable, (BD Saf ety-Debby with Luer-Debby) 3 mL syringe Indications: Female infertility Use as directed to mix and administer HCG trigger 1 each 08/18/2024 11/08/2024 Discontinued (Med List Cleanup) Start: 08-18-2024 syringe, dispo sable, (BD Safety-Debby with Luer-Debby) 3 mL syringe Indications: Female infertility Use as directed to mix and administer Menopur 30 each 3 08/18/2024 Active Start: 08-18-2024 syringe, dispo sable, (BD Safety-Debby with Luer-Debby) 3 mL syringe Indications: Female infertility Use as directed to mix and administer HCG trigger 1 each 08/18/2024 Active syringe, disposable, 1 mL syringe (15 sources) Start: 11-08-2024 End: 11-22-2024 syringe, disposable, 1 mL syringe Indications: Female infertility Use as directed to mix and inject HCG trigger (co-trigger) 1 each 11/08/2024 11/22/2024 Discontinued (Therapy completed) Start: 11-08-2024 syringe, dispo sable, 1 mL syringe Indications: Female infertility Use as directed to mix and inject HCG trigger (co-trigger) 1 each 11/08/2024 Active Start: 08-18-2024 End: 11-08-2024 syringe, disposable, 1 mL sy ringe Indications: Female infertility Use as directed to mix and inject HCG trigger (co-trigger) 1 each 08/18/2024 11/08/2024 Discontinued (Med List Cleanup) Start: 08-18-2024 syringe, dispo sable, 1 mL syringe Indications: Female infertility Use as directed to mix and inject HCG trigger (co-trigger) 1 each 08/18/2024 Active 1 ml ustekinumab 90 mg/ml prefilled syringe (20 sources) Interleukin-12 Antagonist, Interleukin-23 Antagonist Start: 03-10-2022 End: 07-07-2024 Ustekinumab (Stelara) 90 mg/mL syringe Discontinued 90 mg SC every 8 weeks August 05, 2023 11:52am July 07, 2024 4:34pm Approved until 6.2.25 Start: 12-06-2021 ustekinumab (S telara) injection Inject 1 mL (90 mg) under the skin see administration instructions. 12/06/2021 Active Problems Active Problems Problem Classification Problem Date Documented Da te Episodic/Chronic Endometriosis (7 sources) Endometriosis (clinical); Translations: [Endometriosis, unspecified] 12-09-2023 Chronic Comment on above: STAGE 2 Tejinder 07/31 023 ROR Esophageal disorders (15 sources) Gastroesophageal reflux disease; Translations: [Gastro-esophageal reflux disease without esophagitis] Onset: 5 08-03-2023 Chronic Female infertility (16 sources) Female infertility; Translations: [Female infertility, unspecified] Onset: 3 Chronic Gastrointestinal hemorrhage (1 source) Rectal hemorrhage; Translations: [Hemorrhage of anus and rectum] 01-17-2025 Episodic Immunizations and screening for infectious disease (14 sources) Inactive tuberculosis; Translations: [Latent tuberculosis] Onset: 5 12-22-2022 Episodic Nausea and vomiting (10 sources) Postoperative nausea and vomiting; Translations: [Nausea with vomiting, unspecified] Onset: 5 11-22-2024 Episodic Nutritional deficiencies (3 sources) Vitamin D deficiency; Translations: [Vitamin D deficiency, unspecified] Onset: 5 12-11-2024 Chronic Other complications of (1 source) Obesity complicating , unspecified trimester; Translations: [Obesity complicating , unspecified trimester] Onset: 5 Chronic Other complications of (2 sources) with inconclusive viability, not applicable or unspecified; Translations: [ with inconclusive viability, not applicable or unspecified] Onset: 5 Episodic Other complications of (1 source) Supervision of high risk , unspecified, unspecified trimester; Translations: [Supervision of high risk , unspecified, unspecified trimester] Onset: 5 Episodic Other endocrine disorders (11 sources) Polycystic ovary syndrome; Translations: [Polycystic ovarian syndrome] Onset: 5 12-11-2024 Chronic Other endocrine disorders (3 sources) Polycystic ovarian syndrome; Translations: [Polycystic ovarian syndrome] Onset: 4 Chronic Other female genital disorders (2 sources) Vaginal discharge; Translations: [Other specified noninflammatory disorders of vagina] 01-22-2025 Episodic Other female genital disorders (2 sources) Other specified noninflammatory disorders of vagina; Translations: [Other specified noninflammatory disorders of vagina] Onset: 5 Episodic Other nervous system disorders (1 source) Postoperative pain ; Translations: [Other acute postprocedural pain] Onset: 3 Episodic Other nutritional; endocrine; and metabolic disorders (12 sources) Obesity; Translations: [Class 1 obesity in adult] Onset: 5 11-22-2024 Chronic Other nutritional; endocrine; and metabolic disorders (2 sources) Obese class I; Translations: [Class 1 obesity] 05-04-2024 Chronic Other nutritional; endocrine; and metabolic disorders (2 sources) Body mass index 30+ - obesity; Translations: [Body mass index (BMI) 32.0-32.9, adult] 05-04-2024 Chronic Other nutritional; endocrine; and metabolic disorders (1 source) Obesity, unspecified; Translations: [Obesity, unspecified] Onset: 4 Chronic Other nutritional; endocrine; and metabolic disorders (1 source) Body mass index (BMI) 32.0-32.9, adult; Translations: [Body mass index [BMI] 32.0-32.9, adult] Onset: 4 Chronic Other nutritional; endocrine; and metabolic disorders (1 source) Other obesity; Translations: [Other obesity] Onset: 4 Chronic Other nutritional; endocrine; and metabolic disorders (2 sources) Weight gain 04-20-2023 Episodic Other and delivery including normal (2 sources) Encounter for test, result positive; Translations: [Encounter for test, result positive ([facility])] Onset: 5 Episodic Other screening for suspected conditions (not mental disorders or infectious disease) (4 sources) Encounter for screening for diabetes mellitus; Translations: [Encounter for screening for other suspected endocrine disorder] Onset: 5 Episodic Other skin disorders (2 sources) Skin problem; Translations: [Disorder of the skin and subcutaneous tissue, unspecified] 12-20-2024 Episodic Other skin disorders (2 sources) Disorder of the skin and subcutaneous tissue, unspecified; Translations: [Disorder of the skin and subcutaneous tissue, unspecified] Onset: 5 Episodic Regional enteritis and ulcerative colitis (20 sources) Ulcerative colitis; Translations: [Ulcerative colitis, unspecified, without complications] Onset: 3 Chronic Residual codes; unclassified (1 source) Family history of urological disorder; Translations: [Family history of other diseases of the genitourinary system] Onset: 3 Episodic Residual codes; unclassified (2 sources) Infertile 07-12-2024 Episodic Comment on above: SA-nl, normal pelvic US and TSH Nl HSG 07/2023 Unclassified (12 sources) Patient encounter status 04-20-2023 Unclassified (4 sources) Infertile; Translations: [Infertility] 12-09-2023 Unclassified (1 source) Other obesity not elsewhere classified; Translations: [Other obesity not elsewhere classified] Onset: 4 Viral infection (3 sources) Verruca plantaris; Translations: [Plantar wart] Onset: 5 12-20-2024 Episodic Past or Other Problems Problem Classification Problem Date Documented Da te Episodic/Chronic Contraceptive and procreative management (18 sources) Patient encounter status; Translations: [Encounter for fertility testing] Onset: 07-14-2024 07-14-2024 Episodic Inflammatory diseases of female pelvic organs (4 sources) Endometritis; Translations: [Inflammatory disease of uterus, unspecified] Onset: 08-14-2024 08-14-2024 Episodic Other nutritional; endocrine; and metabolic disorders (2 sources) Abnormal weight gain; Translations: [Abnormal weight gain] Onset: 04-20-2023 Episodic Unclassified (20 sources) Onset: 01-25-2024 Resolved: 12-11-2024 01-25-2024 Results Test Name Value Interpretation Reference Range Facility Office Visit Reporton 2024 Office Visit Report [facility] [address] [place] [address] OFFICE VISIT Date of Service: 01/26/25 MR#: [id number] Acct: [id number] Patient: MARIXA AMOS Rep #: [id number] : 1995 Provider: Dr. Carmen dixon MD Age/Sex: 29/F Location: [facility] [place] Status: Signed Intake Vital Signs 07/12/24 08:32 01/25/25 14:45 Height 5 ft 3 in 5 ft 3 in Weight: 184 lb 8 oz BMI 32.6 BP 128/62 H Blood Pressure Location Rt brachial Position Sitting Intake Visit Reasons: Pre new ob, confirm preg, vitals Chief Complaint: Fertility consult Veterinary Technologist Required: No Accompanied by: Is patient in pain?: No Allergies No Known Allergies Allergy (Verified 01/26/25 14:07) Medications ???Medication ???Instructions ???Recorded ???Confirmed ???Type ustekinumab 90 mg/mL subcutaneous 90 mg subcut Q8W #1 mL 07/07/24 0 01/26/25 Rx syringe (Stelara) aspirin 81 mg tablet,delayed 81 mg PO QDAY 01/01/25 01/26/25 Hi story release (Adult Aspirin Regimen) estradiol 2 mg tablet (Estrace) 6 mg PO QDAY 01/01/25 01/26/25 His tory prednisone 10 mg tablet 10 mg PO QDAY 01/01/25 01/26/25 Hi story metformin 1,000 mg tablet 1,500 mg PO QDAY 01/26/25 01/26/25 History multivit-min no.71-iron fum 28 cap PO 01/26/25 01/26/25 History mg-folate no.1 1 mg-dha 300 mg capsule (PNV-[place]) prednisone 10 mg tablet 10 mg PO QDAY 01/26/25 01/26/25 Hi story progesterone oil 75 mg IM QHS 01/26/25 01/26/25 His tory Is last menstrual period known: Yes Last menstrual period: 10/19/24 Post menopausal: No Patient : Yes Nurse's Note: Pt here for secondary amenorrhea. Office UPT: positive. Vitals WNL. PNOB questions completed. Problem list, allergies, and medications updated. First trimester ACOG education completed. Results POC Urine Office , Urine Positive Last Edit by Jacquie Durán on 01/26/25 14:12 Assessment and Plan Assessment and Plan (1) Amenorrhea: Status: Acute Comment: +UPT Orders: Orders CBC W/Diff, Automated 01/26/25 O09.90 - Supervision of high risk , unspecified, unspecified trimester Type Screen 01/26/25 O09.90 - Supervision of high risk , unspecified, unspecified trimester Rubella IgG 01/26/25 O09.90 - Supervision of high risk , unspecified, unspecified trimester Hepatitis C Antibody 01/26/25 O09.90 - Supervision of high risk , unspecified, unspecified trimester Hepatitis B Surface Antigen 01/26/25 O09.90 - Supervision of high risk , unspecified, unspecified trimester Culture, Urine 01/26/25 O09.90 - Supervision of high risk , unspecified, unspecified trimester Syphilis Antibodies 01/26/25 O09.90 - Supervision of high risk , unspecified, unspecified trimester Chlamydia/GC ALEKSEY aptima 01/26/25 O09.90 - Supervision of high risk , unspecified, unspecified trimester HIV 01/26/25 O09.90 - Supervision of high risk , unspecified, unspecified trimester Hemoglobin A1c 01/26/25 O09.90 - Supervision of high risk , unspecified, unspecified trimester, O99.210 - Obesity complicating , unspecified trimester POC Urine 01/26/25 N91.2 - Amenorrhea, unspecified 01/27/25 1136 Date Carmen Marte Signature: Date (if applicable) CC: Normal [facility] OB TRANSVAGINALon 025 US OB TRANSVAGINAL Interpreted by: Henrietta Herndon Indication ======== Spotting ========= Mason . Number of embryos: 1 Dating ====== Conception: IVF Embryo Transfer Embryo transfer on: 12/26/2024 IVF / ET 5 d GA by IVF / ET 7 w + 0 d GIL by IVF / ET: 09/13/2025 GA by prior assessment 7 w + 0 d GIL by prior assessment: 09/13/2025 Ultrasound examination on: 01/25/2025 GA by U/S based upon: CRL GA by U/S 7 w + 0 d GIL by U/S: 09/13/2025 Assigned: based on the IVF / ET date, selected on 01/18/2025 Assigned GA 7 w + 0 d Assigned GIL: 09/13/2025 Impression ========= Early single intrauterine with cardiac activity present. Size is consistent with dating provided. Small subchorionic hemorrhage is seen. Follow-up ======== Follow-up as clinically indicated. Assessment Gestational sac: visualized Location: intrauterine Yolk sac: visualized YS 2.9 mm -/- 4% Papaioannou Embryo: visualized CRL 7.8 mm 7w 0d 46% [place]exsters Cardiac activity: present FHR 147 bpm Placenta: circumferential Maternal Structures Uterus / Cervix Uterus: Visualized Uterus position: anteverted Cervix: Visualized Ovaries / Tubes / Adnexa Rt ovary: Visualized Rt ovary details: Normal Lt ovary: Visualized Lt ovary details: Normal Cul de Sac / Bladder / Kidneys / Other [place] de Sac: Visualized Free fluid: No free fluid visualized Method ====== Transvaginal assessment was indicated due to increased accuracy of transvaginal evaluation for early dating. View: Sufficient [facility] Blood type and Indirect anti body screen panel (Bld)on 01-22-2025 ABO group Nom (Bld) B [facility] Blood group antibody screen Ql Negative [facility] D Ag Ql (Bld) Positive [facility] ABO group Nom (Bld) B [facility] Comment on above: Performed By: #### 2 243-4 #### MARIA E KAPADIA ([id number]) [facility] ([facility] [place]) [address] [place] [address] Blood group antibody screen Ql Negative [facility] Comment on above: Performed By: #### 2 243-4 #### MARIA E KAPADIA ([id number]) [facility] ([facility] [place]) [address] [place] [address] D Ag Ql (Bld) Positive [facility] Comment on above: Performed By: #### 2 243-4 #### MARIA E KAPADIA ([id number]) [facility] ([facility] [place] [facility]) [address] [place] [address] C. trachomatis and N. gonorr hoeae DNA ALEKSEY+probe Nom (Unsp spec)on 01-22-2025 C. trachomatis rRNA ALEKSEY+probe Ql (Unsp spec) Negative Normal Negative [facility] Comment on above: Order Comment: REF V ALUES FOLLICULAR PHASE 20-144 MID CYCLE 64-357 LUTEAL PHASE 56-214 POSTMENOPAUSE < 32 PREPUBERTY < 20 FEMALE 10-18Y 8-110 MALE 10-18Y < 20 ADULT MALE < 40 Performed By: #### 2 243-4 #### MARIA E KAPADIA ([id number]) [facility] ([facility] [place]) [address] [place], [place] [id number] N. gonorrhoeae DNA Probe+sig amp Ql (Unsp spec) Negative Normal Negative [facility] Comment on above: Order Comment: REF V ALUES FOLLICULAR PHASE 20-144 MID CYCLE 64-357 LUTEAL PHASE 56-214 POSTMENOPAUSE < 32 PREPUBERTY < 20 FEMALE 10-18Y 8-110 MALE 10-18Y < 20 ADULT MALE < 40 Performed By: #### 2 243-4 #### MARIA E KAPADIA ([id number]) [facility] ([facility] [place] [facility]) [address] [place], [place] [id number] CBC W Auto Differential pane l (Bld)on 01-22-2025 Basophils (Bld) [#/Vol] 0.04 10*3/uL [facility] Basophils/100 WBC (Bld) 0.5 % 0.0 - 2.0 % [facility] Eosinophils (Bld) [#/Vol] 0.07 10*3/uL [facility] Eosinophils/100 WBC (Bld) 0.8 % 0.0 - 6.0 % [facility] Erythrocyte distribution width (RBC) [Ratio] 12.7 % 11.5 - 14.5 % [facility] Hematocrit (Bld) [Volume fraction] 32.8 % Low 36.0 - 46.0 % [facility] Hemoglobin (Bld) [Mass/Vol] 11.1 g/dL Low 12.0 - 16.0 g/dL [facility] Immature granulocytes (Bld) [#/Vol] 0.05 10*3/uL [facility] Immature granulocytes/100 WBC (Bld) 0.6 % 0.0 - 0.9 % [facility] Comment on above: Immature Granulocyte Count (IG) includes promyelocytes, myelocytes and metamyelocytes but does not include bands. Percent differential counts (%) should be interpreted in the context of the absolute cell counts (cells/UL). Interpretation and review of laboratory results Abnormal [facility] Lymphocytes (Bld) [#/Vol] 1.19 10*3/uL Low [facility] Lymphocytes/100 WBC (Bld) 13.9 % 13.0 - 44.0 % [facility] MCH (RBC) [Entitic mass] 30.1 pg 26.0 - 34.0 pg [facility] MCHC (RBC) [Mass/Vol] 33.8 g/dL 32.0 - 36.0 g/dL [facility] MCV (RBC) [Entitic vol] 89 fL 80 - 100 fL [facility] Monocytes (Bld) [#/Vol] 0.34 10*3/uL [facility] Monocytes/100 WBC (Bld) 4 % 2.0 - 10.0 % [facility] Neutrophils (Bld) [#/Vol] 6.86 10*3/uL [facility] Comment on above: Percent differential counts (%) should be interpreted in the context of the absolute cell counts (cells/uL). Neutrophils/100 WBC (Bld) 80.2 % 40.0 - 80.0 % [facility] Nucleated RBC/100 WBC (Bld) [Ratio] 0 % [facility] Platelets (Bld) [#/Vol] 319 10*3/uL [facility] RBC (Bld) [#/Vol] 3.69 10*6/uL Low [facility] WBC (Bld) [#/Vol] 8.6 10*3/uL [facility] Basophils (Bld) [#/Vol] 0.04 x10*3/uL Normal 0.00-0.10 [facility] Comment on above: Performed By: #### 2 243-4 #### MARIA E KAPADIA ([id number]) [facility] ([facility] [place] [facility]) [address] [place] [address] Basophils/100 WBC (Bld) 0.5 % Normal 0.0-2.0 [facility] Comment on above: Performed By: #### 2 243-4 #### MARIA E KAPADIA ([id number]) [facility] ([facility] [place] [facility]) [address] [place] [address] Eosinophils (Bld) [#/Vol] 0.07 x10*3/uL Normal 0.00-0.70 [facility] Comment on above: Performed By: #### 2 243-4 #### MARIA E KAPADIA ([id number]) [facility] ([facility] [place]) [address] [place] [address] Eosinophils/100 WBC (Bld) 0.8 % Normal 0.0-6.0 [facility] Comment on above: Performed By: #### 2 243-4 #### MARIA E KAPADIA ([id number]) [facility] ([facility] [place]) [address] [place] [address] Erythrocyte distribution width (RBC) [Ratio] 12.7 % Normal 11.5-14.5 [facility] Comment on above: Performed By: #### 2 243-4 #### MARIA E KAPADIA ([id number]) [facility] ([facility] [place] [facility]) [address] [place] [id number] Hematocrit (Bld) [Volume fraction] 32.8 % Low 36.0-46.0 [facility] Comment on above: Performed By: #### 2 243-4 #### MARIA E KAPADIA ([id number]) [facility] ([facility] [place] [facility]) [address] [place] [address] Hemoglobin (Bld) [Mass/Vol] 11.1 g/dL Low 12.0-16.0 [facility] Comment on above: Performed By: #### 2 243-4 #### MARIA E KAPADIA ([id number]) [facility] ([facility] [facility]) [address] [place] [phone] Immature granulocytes (Bld) [#/Vol] 0.05 x10*3/uL Normal 0.00-0.70 [facility] Comment on above: Performed By: #### 2 243-4 #### MARIA E KAPADIA ([id number]) [facility] ([facility]) [address] [place] [phone] Immature granulocytes/100 WBC (Bld) 0.6 % Normal 0.0-0.9 [facility] Comment on above: Result Comment: Ewa ture Granulocyte Count (IG) includes promyelocytes, myelocytes and metamyelocytes but does not include bands. Percent differential counts (%) should be interpreted in the context of the absolute cell counts (cells/UL). Performed By: #### 2 243-4 #### MARIA E KAPADIA ([id number]) [facility] ([facility] [place]) [address] [place] [phone] Lymphocytes (Bld) [#/Vol] 1.19 x10*3/uL Low 1.20-4.80 [facility] Comment on above: Performed By: #### 2 243-4 #### MARIA E KAPADIA ([id number]) [facility] ([facility] [place] [facility]) [address] [place] [address] Lymphocytes/100 WBC (Bld) 13.9 % Normal 13.0-44.0 [facility] Comment on above: Performed By: #### 2 243-4 #### MARIA E KAPADIA ([id number]) [facility] ([facility] [place] [facility]) [address] [place] [phone] MCH (RBC) [Entitic mass] 30.1 pg Normal 26.0-34.0 [facility] Comment on above: Performed By: #### 2 243-4 #### MARIA E KAPADIA ([id number]) [facility] ([facility] [facility]) [address] [place], [place] [phone] MCHC (RBC) [Mass/Vol] 33.8 g/dL Normal 32.0-36.0 [facility] Comment on above: Performed By: #### 2 243-4 #### MARIA E KAPADIA ([id number]) [facility] ([facility] [place]) [address] [place] [address] MCV (RBC) [Entitic vol] 89 fL Normal 80-100 [facility] Comment on above: Performed By: #### 2 243-4 #### MARIA E KAPADIA ([id number]) [facility] ([facility] [place] [facility]) [address] [place] [address] Monocytes (Bld) [#/Vol] 0.34 x10*3/uL Normal 0.10-1.00 [facility] Comment on above: Performed By: #### 2 243-4 #### MARIA E KAPADIA ([id number]) [facility] ([facility] [place]) [address] [place] [address] Monocytes/100 WBC (Bld) 4.0 % Normal 2.0-10.0 [facility] Comment on above: Performed By: #### 2 243-4 #### MARIA E KAPADIA ([id number]) [facility] ([facility]) [address] [place] [phone] Neutrophils (Bld) [#/Vol] 6.86 x10*3/uL Normal 1.20-7.70 [facility] Comment on above: Result Comment: Perc ent differential counts (%) should be interpreted in the context of the absolute cell counts (cells/uL). Performed By: #### 2 243-4 #### MARIA E KAPADIA ([id number]) [facility] ([facility]) [address] [place] [address] Neutrophils/100 WBC (Bld) 80.2 % Normal 40.0-80.0 [facility] Comment on above: Performed By: #### 2 243-4 #### MARIA E KAPADIA ([id number]) [facility] ([facility]) [address] [place] [address] Nucleated RBC/100 WBC (Bld) [Ratio] 0.0 /100 WBCs Normal 0.0-0.0 [facility] Comment on above: Performed By: #### 2 243-4 #### MARIA E KAPADIA ([id number]) [facility] ([facility]) [address] [place] [address] Platelets (Bld) [#/Vol] 319 x10*3/uL Normal 150-450 [facility] Comment on above: Performed By: #### 2 243-4 #### MARIA E KAPADIA ([id number]) [facility] ([facility]) [address] [place] [address] RBC (Bld) [#/Vol] 3.69 x10*6/uL Low 4.00-5.20 [facility] Comment on above: Performed By: #### 2 243-4 #### MARIA E KAPADIA ([id number]) [facility] ([facility]) [address] [place] [address] WBC (Bld) [#/Vol] 8.6 x10*3/uL Normal 4.4-11.3 [facility] Comment on above: Performed By: #### 2 243-4 #### MARIA E KAPADIA ([id number]) [facility] ([facility]) [address] [place] [address] Choriogonadotropin.beta subu niton 05-26-2025 [place] [address] m[IU]/mL High <5 U [facility] Comment on above: Order Comment: REF V ASIF FOLLICULAR PHASE 20-144 MID CYCLE 64-357 LUTEAL PHASE 56-214 POSTMENOPAUSE < 32 PREPUBERTY < 20 FEMALE 10-18Y 8-110 MALE 10-18Y < 20 ADULT MALE < 40 Result Comment: Low- level positive HCG results can be seen in early , in markie- or post-menopausal females due to normal pituitary HCG production, or with analytic interference. Repeat testing in 48-72 hours can aid in assessing for as results should double in this time period. FSH measurement is recommended in markie- or post-menopausal females as concurrent elevation of FSH can support pituitary production as the source of the HCG elevation. Performed By: #### 2 243-4 #### MARIA E STEFFI ([id number]) [facility] ([facility]) [address] [place] [address] Comprehensive metabolic 2000 panelon 01-22-2025 Albumin BCP dye [Mass/Vol] 4.5 g/dL 3.4 - 5.0 g/dL [facility] ALP [Catalytic activity/Vol] 56 U/L 33 - 110 U/L [facility] ALT With P-5'-P [Catalytic activity/Vol] 21 U/L 7 - 45 U/L [facility] Comment on above: Patients treated wit h Sulfasalazine may generate falsely decreased results for ALT. Anion gap [Moles/Vol] 15 mmol/L 10 - 2 0 mmol/L [facility] AST With P-5'-P [Catalytic activity/Vol] 18 U/L 9 - 39 U/L [facility] Bilirubin [Mass/Vol] 0.2 mg/dL 0.0 - 1 .2 mg/dL [facility] Calcium [Mass/Vol] 9.4 mg/dL 8.6 - 10. 3 mg/dL [facility] Chloride [Moles/Vol] 106 mmol/L 98 - 10 7 mmol/L [facility] CO2 [Moles/Vol] 19 mmol/L Low 21 - 32 mmol/L [facility] Creatinine [Mass/Vol] 0.83 mg/dL 0.50 - 1.05 mg/dL [facility] eGFR - PINF [facility] Comment on above: Calculations of isabelle mated GFR are performed using the 2020 CKD-EPI Study Refit equation without the race variable for the IDMS-Traceable creatinine methods. https://jasn.asnjournals.org/content//ASN.00842 66630 Glucose [Mass/Vol] 110 mg/dL High 74 - 99 mg/dL [facility] Interpretation and review of laboratory results Abnormal [facility] Potassium [Moles/Vol] 4.3 mmol/L 3.5 - 5.3 mmol/L [facility] Protein [Mass/Vol] 6.9 g/dL 6.4 - 8.2 g/dL [facility] Sodium [Moles/Vol] 136 mmol/L 136 - 145 mmol/L [facility] Urea nitrogen [Mass/Vol] 10 mg/dL 6 - 23 mg/dL [facility] Albumin BCP dye [Mass/Vol] 4.5 g/dL Normal 3.4-5.0 [facility] Comment on above: Performed By: #### 2 243-4 #### MARIA E KAPADIA ([id number]) [facility] ([facility]) [address] [place] [address] ALP [Catalytic activity/Vol] 56 U/L Normal 33-110 [facility] Comment on above: Performed By: #### 2 243-4 #### MARIA E KAPADIA ([id number]) [facility] ([facility]) [address] [place] [address] ALT With P-5'-P [Catalytic activity/Vol] 21 U/L Normal 7-45 [facility] Comment on above: Result Comment: Silvina ents treated with Sulfasalazine may generate falsely decreased results for ALT. Performed By: #### 2 243-4 #### MARIA E KAPADIA ([id number]) [facility] ([facility]) [address] [place] [address] Anion gap [Moles/Vol] 15 mmol/L Normal 10-20 [facility] Comment on above: Performed By: #### 2 243-4 #### MARIA E KAPADIA ([id number]) [facility] ([facility]) [address] [place] [address] AST With P-5'-P [Catalytic activity/Vol] 18 U/L Normal 9-39 [facility] Comment on above: Performed By: #### 2 243-4 #### MARIA E KAPADIA ([id number]) [facility] ([facility]) [address] [place] [address] Bilirubin [Mass/Vol] 0.2 mg/dL Normal 0.0-1.2 [facility] Comment on above: Performed By: #### 2 243-4 #### MARIA E KAPADIA ([id number]) [facility] ([facility]) [address] [place] [address] Calcium [Mass/Vol] 9.4 mg/dL Normal 8.6-10.3 [facility] Comment on above: Performed By: #### 2 243-4 #### MARIA E KAPADIA ([id number]) [facility] ([facility]) [address] [place] [address] Chloride [Moles/Vol] 106 mmol/L Normal 98-107 [facility] Comment on above: Performed By: #### 2 243-4 #### MARIA E KAPADIA ([id number]) [facility] ([facility]) [address] [place] [address] CO2 [Moles/Vol] 19 mmol/L Low 21-32 [facility] Comment on above: Performed By: #### 2 243-4 #### MARIA E KAPADIA ([id number]) [facility] ([facility]) [address] [place] [address] Creatinine [Mass/Vol] 0.83 mg/dL Normal 0.50-1.05 [facility] Comment on above: Performed By: #### 2 243-4 #### MARIA E KAPADIA ([id number]) [facility] ([facility]) [address] [place] [address] GFR/1.73 sq M.predicted MDRD (S/P/Bld) [Vol rate/Area] mL/min/{1.73_m2} Normal >60 [facility] Comment on above: Result Comment: Calc ulations of estimated GFR are performed using the 2020 CKD-EPI Study Refit equation without the race variable for the IDMS-Traceable creatinine methods. https://jasn.asnjournals.org/content//ASN.86495 55835 Performed By: #### 2 243-4 #### MARIA E KAPADIA ([id number]) [facility] ([facility]) [address] [place] [address] Glucose [Mass/Vol] 110 mg/dL High 74-99 [facility] Comment on above: Performed By: #### 2 243-4 #### MARIA E KAPADIA ([id number]) [facility] ([facility]) [address] [place] [address] Potassium [Moles/Vol] 4.3 mmol/L Normal 3.5-5.3 [facility] Comment on above: Performed By: #### 2 243-4 #### MARIA E KAPADIA ([id number]) [facility] ([facility]) [address] [place] [address] Protein [Mass/Vol] 6.9 g/dL Normal 6.4-8.2 [facility] Comment on above: Performed By: #### 2 243-4 #### MARIA E AKPADIA ([id number]) [facility] ([facility]) [address] [place] [address] Sodium [Moles/Vol] 136 mmol/L Normal 136-145 [facility] Comment on above: Performed By: #### 2 243-4 #### MARIA E KAPADIA ([id number]) [facility] ([facility]) [address] [place] [address] Urea nitrogen [Mass/Vol] 10 mg/dL Normal 6-23 [facility] Comment on above: Performed By: #### 2 243-4 #### MARIA E KAPADIA ([id number]) [facility] ([facility]) [address] [place] [address] HCG.beta subunit Qnon 2024 Interpretation and review of laboratory results Abnormal [facility] Total HCG measuremen t is performed using the Елена Luis Access Immunoassay which detects intact HCG and free beta HCG subunit. This test is not indicated for use as a tumor marker. HCG testing is performed using a different test methodology at [facility] than other [facility]. Direct result comparison should only be made within the same method. [facility] Human Chorionic Gonadotropin , Serum Quantitativeon 01-22-2025 [place] [address] m[IU]/mL High [facility] Comment on above: Low-level positive H CG results can be seen in early , in markie- or post-menopausal females due to normal pituitary HCG production, or with analytic interference. Repeat testing in 48-72 hours can aid in assessing for as results should double in this time period. FSH measurement is recommended in markie- or post-menopausal females as concurrent elevation of FSH can support pituitary production as the source of the HCG elevation. Microscopic observation Wet prep Nom (Unsp spec)Ordered By: Leticia Burrell on 01-22-2025 Clue cells Wet prep Ql (Unsp spec) None Seen None Seen [facility] T. vaginalis Wet prep Ql (Unsp spec) None Seen None Seen [facility] WBC Wet prep Ql (Vag fld) 1-2 [facility] Yeast Wet prep Ql (Vag fld) None Seen None Seen [facility] Microscopic observation Wet prep Nom (Unsp spec)on 01-22-2025 Clue cells Wet prep Ql (Unsp spec) None Seen Normal None Seen [facility] Comment on above: Performed By: #### 2 243-4 #### MARIA E KAPADIA ([id number]) [facility] ([facility]) [address] [place] [address] T. vaginalis Wet prep Ql (Unsp spec) None Seen Normal None Seen [facility] Comment on above: Performed By: #### 2 243-4 #### MARIA E KAPADIA ([id number]) [facility] ([facility]) [address] [place] [address] WBC Wet prep Ql (Vag fld) 1-2 [facility] Comment on above: Performed By: #### 2 243-4 #### MARIA E KAPADIA ([id number]) [facility] ([facility]) [address] [place] [address] Yeast Wet prep Ql (Vag fld) None Seen Normal None Seen [facility] Comment on above: Performed By: #### 2 243-4 #### MARIA E KAPADIA ([id number]) [facility] ([facility]) [address] [place] [address] US OB LESS THAN 14 WEEKS EAR [place] 01-22-2025 US OB LESS THAN 14 WEEKS EARLY Interpreted By: Lisa Parmar, STUDY: US OB LESS THAN 14 WEEKS EARLY 01/22/2025 12:37 pm INDICATION: Signs/Symptoms:6 weeks with brown/pink discharge and lower back pain COMPARISON: 01/18/2025 ACCESSION NUMBER(S): [id number] ORDERING CLINICIAN: ZANE PRYOR TECHNIQUE: Transabdominal and transvaginal pelvic ultrasound is performed. FINDINGS: There is a single intrauterine gestational sac observed. The mean sac diameter corresponds to gestational age of 7.0 weeks. Yolk sac is present. The crown rump length of the pole corresponds to a gestational age of 6 weeks and 5 days.. cardiac activity is observed and calculated at 124 beats per minute. Beats per minute. There is a very small subchorionic hemorrhage measuring 0.4 x 0.6 x 0.9 cm. The cervix is closed. The right ovary measures 1.8 x 2.3 x 2.7 cm with left ovary measuring 2.0 x 3.1 x 3.3 cm. No adnexal mass or free fluid is observed. IMPRESSION: Single live intrauterine gestation of 6 weeks and 5 days sonographic gestational age. There has been normal interval growth since 01/18/2025. 0.4 x 0.6 x 0.9 cm subchorionic hemorrhage. Signed by: Lisa Parmar 01/22/2025 1:12 PM Dictation workstation: [id number] [facility] US for in first tr imesteron 01-22-2025 Single live intraute rine gestation of 6 weeks and 5 days sonographic gestational age. There has been normal interval growth since 01/18/2025. 0.4 x 0.6 x 0.9 cm subchorionic hemorrhage. Signed by: Lisa Parmar 01/22/2025 1:12 PM Dictation workstation: [id number] MMODAL Interpreted By: Lisa Parmar, STUDY: US OB LESS THAN 14 WEEKS EARLY 01/22/2025 12:37 pm INDICATION: Signs/Symptoms:6 weeks with brown/pink discharge and lower back pain COMPARISON: 01/18/2025 ACCESSION NUMBER(S): [id number] ORDERING CLINICIAN: ZANE PRYOR TECHNIQUE: Transabdominal and transvaginal pelvic ultrasound is performed. FINDINGS: There is a single intrauterine gestational sac observed. The mean sac diameter corresponds to gestational age of 7.0 weeks. Yolk sac is present. The crown rump length of the pole corresponds to a gestational age of 6 weeks and 5 days.. cardiac activity is observed and calculated at 124 beats per minute. Beats per minute. There is a very small subchorionic hemorrhage measuring 0.4 x 0.6 x 0.9 cm. The cervix is closed. The right ovary measures 1.8 x 2.3 x 2.7 cm with left ovary measuring 2.0 x 3.1 x 3.3 cm. No adnexal mass or free fluid is observed. MMODAL Lisa Parmar MD - 01/22/2025 Interpreted By: Lisa Parmar, STUDY: US OB LESS THAN 14 WEEKS EARLY 01/22/2025 12:37 pm INDICATION: Signs/Symptoms:6 weeks with brown/pink discharge and lower back pain COMPARISON: 01/18/2025 ACCESSION NUMBER(S): [id number] ORDERING CLINICIAN: ZANE PRYOR TECHNIQUE: Transabdominal and transvaginal pelvic ultrasound is performed. FINDINGS: There is a single intrauterine gestational sac observed. The mean sac diameter corresponds to gestational age of 7.0 weeks. Yolk sac is present. The crown rump length of the pole corresponds to a gestational age of 6 weeks and 5 days.. cardiac activity is observed and calculated at 124 beats per minute. Beats per minute. There is a very small subchorionic hemorrhage measuring 0.4 x 0.6 x 0.9 cm. The cervix is closed. The right ovary measures 1.8 x 2.3 x 2.7 cm with left ovary measuring 2.0 x 3.1 x 3.3 cm. No adnexal mass or free fluid is observed. IMPRESSION: Single live intrauterine gestation of 6 weeks and 5 days sonographic gestational age. There has been normal interval growth since 01/18/2025. 0.4 x 0.6 x 0.9 cm subchorionic hemorrhage. Signed by: Lisa Parmar 01/22/2025 1:12 PM Dictation workstation: [id number] [facility] Work Phone: Radiology Study observation (narrative) [facility] Work Phone: US for in first tr imesterOrdered By: Lisa Parmar on 01-22-2025 [facility] Work Phone: Urinalysis complete W Reflex Culture panel (U)on 01-22-2025 Appearance (U) Clear Clear [facility] Bilirubin (U) [Mass/Vol] Negative NEGATIVE mg/dL [facility] Color (U) Colorless Abnormal Light-Yellow , Yellow, Dark-Yellow [facility] Glucose Auto test strip (U) [Mass/Vol] Normal Normal mg/dL [facility] Interpretation and review of laboratory results Abnormal [facility] Ketones (U) [Mass/Vol] Negative NEGAT CARMEN mg/dL [facility] Leukocyte esterase Auto test strip Ql (U) Negative NEGATIVE [facility] Nitrite Auto test strip Ql (U) Negative NEGATIVE [facility] pH (U) 8 [pH] 5.0, 5.5, 6.0, 6.5, 7.0, 7.5, 8.0 [facility] Protein (U) [Mass/Vol] Negative NEGAT CARMEN, 10 (TRACE), 20 (TRACE) mg/dL [facility] RBC (U) [#/Vol] Negative NEGATIVE mg/dL [facility] Specific gravity (U) [Rel density] 1.006 1.005 - 1.035 [facility] Urobilinogen (U) [Mass/Vol] Normal Normal mg/dL [facility] Appearance (U) Clear Normal Clear [facility] Comment on above: Performed By: #### 2 243-4 #### MARIA E KAPADIA ([id number]) [facility] ([facility]) [address] [place] [address] Bilirubin (U) [Mass/Vol] Negative Normal NEGATIVE [facility] Comment on above: Performed By: #### 2 243-4 #### MARIA E KAPADIA ([id number]) [facility] ([facility]) [address] [place] [address] Color (U) Colorless Normal Light-Yellow , Yellow, Dark-Yellow [facility] Comment on above: Performed By: #### 2 243-4 #### MARIA E KAPADIA ([id number]) [facility] ([facility]) [address] [place] [address] Glucose Auto test strip (U) [Mass/Vol] Normal Normal Normal [facility] Comment on above: Performed By: #### 2 243-4 #### MARIA E KAPADIA ([id number]) [facility] ([facility]) [address] [place] [address] Ketones (U) [Mass/Vol] Negative Normal NEGATIVE [facility] Comment on above: Performed By: #### 2 243-4 #### MARIA E KAPADIA ([id number]) [facility] ([facility]) [address] [place] [address] Leukocyte esterase Auto test strip Ql (U) Negative Normal NEGATIVE [facility] Comment on above: Performed By: #### 2 243-4 #### MARIA E KAPADIA ([id number]) [facility] ([facility]) [address] [place] [address] Nitrite Auto test strip Ql (U) Negative Normal NEGATIVE [facility] Comment on above: Performed By: #### 2 243-4 #### MARIA E KAPADIA ([id number]) [facility] ([facility]) [address] [place] [address] pH (U) 8.0 [pH] Normal 5.0, 5.5, 6.0, 6.5, 7.0, 7.5, 8.0 [facility] Comment on above: Performed By: #### 2 243-4 #### MARIA E KAPADIA ([id number]) [facility] ([facility]) [address] [place] [address] Protein (U) [Mass/Vol] Negative Normal NEGAT CARMEN, 10 (TRACE), 20 (TRACE) [facility] Comment on above: Performed By: #### 2 243-4 #### MARIA E KAPADIA ([id number]) [facility] ([facility]) [address] [place] [address] RBC (U) [#/Vol] Negative Normal NEGATIVE [facility] Comment on above: Performed By: #### 2 243-4 #### MARIA E KAPADIA ([id number]) [facility] ([facility]) [address] [place] [address] Specific gravity (U) [Rel density] 1.006 Normal 1.005-1.035 [facility] Comment on above: Performed By: #### 2 243-4 #### MARIA E KAPADIA ([id number]) [facility] ([facility]) [address] [place] [address] Urobilinogen (U) [Mass/Vol] Normal Normal Normal [facility] Comment on above: Performed By: #### 2 243-4 #### MARIA E KAPADIA ([id number]) [facility] ([facility]) [address] [place] [address] US OB TRANSVAGINALon 025 US OB TRANSVAGINAL Interpreted by: Imelda Blel kt Indication ======== Confirm Gestational Age ========= Mason . Number of embryos: 1 Dating ====== Conception: IVF Embryo Transfer Embryo transfer on: 12/26/2024 IVF / ET 5 d GA by IVF / ET 6 w + 0 d GIL by IVF / ET: 09/13/2025 GA by prior assessment 6 w + 0 d GIL by prior assessment: 09/13/2025 Ultrasound examination on: 01/18/2025 GA by U/S based upon: CRL GA by U/S 6 w + 2 d GIL by U/S: 09/11/2025 Assigned: based on the IVF / ET date, selected on 01/18/2025 Assigned GA 6 w + 0 d Assigned GIL: 09/13/2025 Impression ========= Visualization of yolk sac, gestation sac and embryo within the uterus. Possible FHR visualized, but this is within expected findings at this gestational age. Size is consistent with dating provided. Follow-up ======== Follow-up as clinically indicated. Assessment Gestational sac: visualized Location: intrauterine Yolk sac: visualized YS 3.3 mm 5w 6d 44% Papaioannou Embryo: visualized CRL 3.1 mm 6w 2d 78% [place] Cardiac activity: uncertain Placenta: circumferential Maternal Structures Uterus / Cervix Uterus: Visualized Uterus position: anteverted Cervix: Visualized Ovaries / Tubes / Adnexa Rt ovary: Visualized Rt ovary details: Normal Lt ovary: Visualized Lt ovary details: Normal Cul de Sac / Bladder / Kidneys / Other Cul de Sac: Visualized Free fluid: No free fluid visualized Method ====== Transvaginal assessment was indicated due to increased accuracy of transvaginal evaluation for early dating. View: Sufficient Normal [facility] US OB TRANSVAGINALon 025 OB TRANSVAGINAL Interpreted by: Gavino Ratliff Indication ======== Confirm Gestational Age ========= Mason . Number of embryos: 1 Dating ====== Conception: IVF Embryo Transfer Embryo transfer on: 12/26/2024 IVF / ET 5 d GA by IVF / ET 5 w + 0 d GIL by IVF / ET: 09/13/2025 GA by prior assessment 5 w + 0 d GIL by prior assessment: 09/13/2025 Assigned: based on the IVF / ET date, selected on 01/11/2025 Assigned GA 5 w + 0 d Assigned GIL: 09/13/2025 Impression ========= Intrauterine gestational sac and yolk sac. A definitive pole is not appreciated on this exam. Assessment Gestational sac: visualized GS 5.1 mm -/- Papaioannou Location: intrauterine Yolk sac: visualized YS 1.0 mm -/- Papaioannou Embryo: not visualized Cardiac activity: No Pole seen Placenta: circumferential Maternal Structures Uterus / Cervix Uterus: Visualized Uterus position: anteverted Cervix: Visualized Ovaries / Tubes / Adnexa Rt ovary: Visualized Rt ovary details: Normal Rt ovary D1 26.0 mm Rt ovary D2 24.6 mm Rt ovary D3 25.5 mm Rt ovary Vol 8.5 cm??? Lt ovary: Visualized Lt ovary details: Normal Lt ovary D1 38.4 mm Lt ovary D2 39.4 mm Lt ovary D3 16.2 mm Lt ovary Vol 12.8 cm??? [place] de Sac / Bladder / Kidneys / Other [place]: Visualized [place] details: Anechoic Free fluid: Free fluid visualized [place] largest pool D1 25.0 mm [place] largest pool D2 13.0 mm [place] largest pool D3 12.0 mm [place] largest pool Vol 2.042 ml Method ====== Transvaginal assessment was indicated due to increased accuracy of transvaginal evaluation for early dating. View: Sufficient Normal [facility] Choriogonadotropin.beta subu niton 01-09-2025 HCG.beta subunit Qn 1756 m[IU]/mL High <5 [facility] Comment on above: Order Comment: REF V ALUES FOLLICULAR PHASE 20-144 MID CYCLE 64-357 LUTEAL PHASE 56-214 POSTMENOPAUSE < 32 PREPUBERTY < 20 FEMALE 10-18Y 8-110 MALE 10-18Y < 20 ADULT MALE < 40 Result Comment: Low- level positive HCG results can be seen in early , in markie- or post-menopausal females due to normal pituitary HCG production, or with analytic interference. Repeat testing in 48-72 hours can aid in assessing for as results should double in this time period. FSH measurement is recommended in markie- or post-menopausal females as concurrent elevation of FSH can support pituitary production as the source of the HCG elevation. Performed By: #### 2 243-4 #### MARIA E STEFFI ([id number]) [facility] ([facility]) [address] [place] [address] Absolute lymphocyte countOrd ered By: Domo Weaver on 01-06-2025 Lymphocytes Auto (Unsp spec) [#/Vol] 2.66 10*3/uL 0.83-4.51 [facility] Absolute neutrophil countOrd ered By: Domo Weaver on 01-06-2025 Neutrophils (Bld) [#/Vol] 5.5 10*3/uL 2.0-7.7 [facility] Anion gap in Serum or Plasma Ordered By: Domo Weaver on 01-06-2025 Anion gap [Moles/Vol] 13 mmol/L 01-11 [facility] Automated lymphocyte count a s percentage of total leukocytesOrdered By: Domo Weaver on 01-06-2025 Lymphocytes/100 WBC Auto (Unsp spec) 30.2 % [facility] BUN/creatinine ratioOrdered By: Domorobles Weaver on 01-06-2025 Urea nitrogen/Creatinine [Mass ratio] 15.8 mg/mg 06-18 [facility] Basophil percentageOrdered B y: Domo Weaver on 01-06-2025 Basophils/100 WBC (Bld) 0.7 % 0- [facility] Bilirubin, totalOrdered By: Domo Weaver on 01-06-2025 Bilirubin [Mass/Vol] 0.32 mg/dL 0.00-1.30 [facility] CBC W/Diff, Automatedon 12-28 Absolute Lymph 2.66 X10 3/uL Normal 0.83-4.51 [facility] Comment on above: Performed By: #### L 501.6710, L101.9900, L100.0100, L500.4050 #### [facility] [address] [place], [address] Absolute Neut 5.5 X10 3/uL Normal 2.0-7.7 [facility] Comment on above: Performed By: #### L 501.6710, L101.9900, L100.0100, L500.4050 #### [facility] [address] [place], [address] Basophils/100 WBC (Bld) 0.7 % Normal 0-1 [facility] Comment on above: Performed By: #### L 501.6710, L101.9900, L100.0100, L500.4050 #### [facility] [address] [place], [address] Eosinophils/100 WBC (Bld) 1.4 % Normal 0-5 [facility] Comment on above: Performed By: #### L 501.6710, L101.9900, L100.0100, L500.4050 #### [facility] [address] [place], [address] Erythrocyte distribution width (RBC) [Ratio] 12.3 % Normal 11.6-14.6 [facility] Comment on above: Performed By: #### L 501.6710, L101.9900, L100.0100, L500.4050 #### [facility] [address] [place], [address] Hematocrit (Bld) [Volume fraction] 34.3 % Low 37-47 [facility] Comment on above: Performed By: #### L 501.6710, L101.9900, L100.0100, L500.4050 #### [facility] [address] [place], [address] Hemoglobin (Bld) [Mass/Vol] 11.2 g/dL Low 12.0-15.0 [facility] Comment on above: Performed By: #### L 501.6710, L101.9900, L100.0100, L500.4050 #### [facility] [address] [place], [address] IG% 0.300 Normal 0.0-0.9 [facility] Comment on above: Result Comment: IG% - Immature Granulocytes (promyelocytes, myelocytes and metamyelocytes) > 1% indicates that a LEFT SHIFT is Present. Performed By: #### L 501.6710, L101.9900, L100.0100, L500.4050 #### [facility] [address] [place], [address] Lymphocytes/100 WBC (Bld) 30.2 % Normal 19-41 [facility] Comment on above: Performed By: #### L 501.6710, L101.9900, L100.0100, L500.4050 #### [facility] [address] [place], [address] MCH (RBC) [Entitic mass] 29.6 pg Normal 27.0-32.0 [facility] Comment on above: Performed By: #### L 501.6710, L101.9900, L100.0100, L500.4050 #### [facility] [address] [place], [address] MCHC (RBC) [Mass/Vol] 32.7 g/dL Normal 32-36 [facility] Comment on above: Performed By: #### L 501.6710, L101.9900, L100.0100, L500.4050 #### [facility] [address] [place], [address] MCV (RBC) [Entitic vol] 90.7 fL Normal 81-99 [facility] Comment on above: Performed By: #### L 501.6710, L101.9900, L100.0100, L500.4050 #### [facility] [address] [place], [address] Monocytes/100 WBC (Bld) 4.7 % Normal 0-10 [facility] Comment on above: Performed By: #### L 501.6710, L101.9900, L100.0100, L500.4050 #### [facility] [address] [place], [address] Neutrophils/100 WBC (Bld) 62.7 % Normal 47-70 [facility] Comment on above: Performed By: #### L 501.6710, L101.9900, L100.0100, L500.4050 #### [facility] [address] [place], [address] Nucleated RBC (Bld) [#/Vol] 0 10*3/uL Normal 0-5 [facility] Comment on above: Performed By: #### L 501.6710, L101.9900, L100.0100, L500.4050 #### [facility] [address] [place], [address] Platelet mean volume (Bld) [Entitic vol] 10.0 fL Normal 6.2-12.0 [facility] Comment on above: Performed By: #### L 501.6710, L101.9900, L100.0100, L500.4050 #### [facility] [address] [place], [address] Platelets (Bld) [#/Vol] 358 10*3/uL Normal 150-450 [facility] Comment on above: Performed By: #### L 501.6710, L101.9900, L100.0100, L500.4050 #### [facility] [address] [place], [address] RBC (Bld) [#/Vol] 3.78 10*6/uL Low 4.2-5.4 [facility] Comment on above: Performed By: #### L 501.6710, L101.9900, L100.0100, L500.4050 #### [facility] [address] [place], [address] RDW SD 40.6 fl Normal 35.1-43.9 [facility] Comment on above: Performed By: #### L 501.6710, L101.9900, L100.0100, L500.4050 #### [facility] [address] [place], [address] WBC (Bld) [#/Vol] 8.8 10*3/uL Normal 4.4-11.0 [facility] Comment on above: Performed By: #### L 501.6710, L101.9900, L100.0100, L500.4050 #### [facility] [address] [place], [address] CRPon 01-06-2025 C-REACTIVE PROT 5.97 mg/L High 0.0-3.0 [facility] Comment on above: Performed By: #### L 501.6710, L101.9900, L100.0100, L500.4050 #### [facility] [address] [place], [address] Carbon dioxide, total [Moles /volume] in Central venous bloodOrdered By: Domo Friend on 01-06-2025 CO2 [Moles/Vol] 21.3 mmol/L 21.0-32.0 [facility] Chloride assayOrdered By: Ra clarita Weaver on 01-06-2025 Chloride [Moles/Vol] 104 mmol/L 98-108 [facility] Comprehensive Metabolic Prof ilon 01-06-2025 Albumin [Mass/Vol] 4.2 g/dL Normal 3.5-5.0 [facility] Comment on above: Performed By: #### L 501.6710, L101.9900, L100.0100, L500.4050 #### [facility] [address] [place], [address] Albumin/Globulin [Mass ratio] 1.4 {ratio} Normal 0.9-2.4 [facility] Comment on above: Performed By: #### L 501.6710, L101.9900, L100.0100, L500.4050 #### [facility] [address] [place], [address] ALK PHOS 57 U/L Normal 35-104 [facility] Comment on above: Performed By: #### L 501.6710, L101.9900, L100.0100, L500.4050 #### [facility] [address] [place], [address] ALT [Catalytic activity/Vol] 15 U/L Normal <=34 [facility] Comment on above: Performed By: #### L 501.6710, L101.9900, L100.0100, L500.4050 #### [facility] [address] [place], [address] AST [Catalytic activity/Vol] 18 U/L Normal <=31 [facility] Comment on above: Performed By: #### L 501.6710, L101.9900, L100.0100, L500.4050 #### [facility] [address] [place], [address] Bilirubin [Mass/Vol] 0.32 mg/dL Normal 0.00-1.30 [facility] Comment on above: Performed By: #### L 501.6710, L101.9900, L100.0100, L500.4050 #### [facility] [address] [place], [address] BUN/CRE 15.8 RATIO Normal 10-20 [facility] Comment on above: Performed By: #### L 501.6710, L101.9900, L100.0100, L500.4050 #### [facility] [address] [place], [address] Calcium [Mass/Vol] 9.2 mg/dL Normal 7.6-11.0 [facility] Comment on above: Performed By: #### L 501.6710, L101.9900, L100.0100, L500.4050 #### [facility] [address] [place], [address] Chloride [Moles/Vol] 104 mmol/L Normal 98-108 [facility] Comment on above: Performed By: #### L 501.6710, L101.9900, L100.0100, L500.4050 #### [facility] [address] [place], [address] CO2 [Moles/Vol] 21.3 mmol/L Normal 21.0-32.0 [facility] Comment on above: Performed By: #### L 501.6710, L101.9900, L100.0100, L500.4050 #### [facility] [address] [place], [address] Creatinine [Mass/Vol] 0.69 mg/dL Low 0.70-1.20 [facility] Comment on above: Performed By: #### L 501.6710, L101.9900, L100.0100, L500.4050 #### [facility] [address] [place], [address] GAP 13 Normal 5-15 [facility] Comment on above: Performed By: #### L 501.6710, L101.9900, L100.0100, L500.4050 #### [facility] [address] [place], [address] GFR/1.73 sq M.predicted among non-blacks MDRD (S/P/Bld) [Vol rate/Area] 120 mL/min/{1.73_m2} Normal >60 [facility] Comment on above: Result Comment: mL/m in/1.73m2 CKD-EPI Creatinine Equation (2020) Performed By: #### L 501.6710, L101.9900, L100.0100, L500.4050 #### [facility] [address] [place], [address] Globulin (S) [Mass/Vol] 3.0 g/dL Normal 2.2-4.2 [facility] Comment on above: Performed By: #### L 501.6710, L101.9900, L100.0100, L500.4050 #### [facility] [address] [place], [address] Glucose [Mass/Vol] 121 mg/dL High 70-99 [facility] Comment on above: Performed By: #### L 501.6710, L101.9900, L100.0100, L500.4050 #### [facility] [address] [place], [address] Potassium [Moles/Vol] 3.7 mmol/L Normal 3.3-5.1 [facility] Comment on above: Performed By: #### L 501.6710, L101.9900, L100.0100, L500.4050 #### [facility] [address] [place], [address] Sodium [Moles/Vol] 138 mmol/L Normal 133-145 [facility] Comment on above: Performed By: #### L 501.6710, L101.9900, L100.0100, L500.4050 #### [facility] [address] [place], [address] T PROT 7.2 g/dL Normal 5.9-8.4 [facility] Comment on above: Performed By: #### L 501.6710, L101.9900, L100.0100, L500.4050 #### [facility] [address] [place], [address] Urea nitrogen [Mass/Vol] 11 mg/dL Normal 4-19 [facility] Comment on above: Performed By: #### L 501.6710, L101.9900, L100.0100, L500.4050 #### [facility] [address] [place], [address] Eosinophil percentageOrdered By: Domo Weaver on 01-06-2025 Eosinophils/100 WBC (Bld) 1.4 % 0-5 [facility] Erythrocyte Sed Rateon 01-06 SED RATE 8 mm/hr Normal 0-30 [facility] Comment on above: Performed By: #### L 501.6710, L101.9900, L100.0100, L500.4050 #### [facility] [address] [place], [address] Erythrocyte distribution wid th ratioOrdered By: Domo Weaver on 01-06-2025 Erythrocyte distribution width (RBC) [Ratio] 12.3 % 11.6-14.6 [facility] Erythrocyte distribution wid th standard deviationOrdered By: Domo Weaver on 01-06-2025 Erythrocyte distribution width (RBC) [Ratio] 40.6 fl 35.1-43.9 [facility] Erythrocyte sedimentation ra teOrdered By: Domo Weaver on 01-06-2025 ESR (Bld) [Velocity] 8 mm/h 0-30 [facility] Glomerular filtration rate ( GFR) estimation/1.73 sq m using serum, plasma, or whole bOrdered By: Domo Weaver on 01-06-2025 GFR/1.73 sq M.predicted among non-blacks MDRD (S/P/Bld) [Vol rate/Area] 120 mL/min/{1.73_m2} >60 [facility] Comment on above: mL/min/1.73m2 CKD-EP I Creatinine Equation (2020) Hematocrit Auto (Bld) [Volum e fraction]Ordered By: Domo Weaver on 01-06-2025 Hematocrit (Bld) [Volume fraction] 34.3 % Low 37-47 [facility] Hemoglobin measurementOrdere d By: Domo Weaver on 01-06-2025 Hemoglobin (Bld) [Mass/Vol] 11.2 g/dL Low 12.0-15.0 [facility] Immature granulocytes/100 WB C Auto (Bld)Ordered By: Domo Weaver on 01-06-2025 Immature granulocytes/100 WBC (Bld) 0.300 % 0.0-0.9 [facility] Comment on above: IG% - Immature Granu locytes (promyelocytes, myelocytes and metamyelocytes) > 1% indicates that a LEFT SHIFT is Present. Laboratory - Chemistry and C hemistry - challengeOrdered By: Domo Weaver on 01-06-2025 AST [Catalytic activity/Vol] 18 U/L <32 [facility] MCV (mean corpuscular volume ) determinationOrdered By: Domo Weaver on 01-06-2025 MCV (RBC) [Entitic vol] 90.7 fL 81-99 [facility] Mean corpuscular hemoglobin (MCH) determinationOrdered By: Domo Weaver on 01-06-2025 MCH (RBC) [Entitic mass] 29.6 pg 27.0-32.0 [facility] Mean corpuscular hemoglobin concentration (MCHC) determinationOrdered By: Domo Weaver on 01-06-2025 MCHC (RBC) [Mass/Vol] 32.7 g/dL 32-36 [facility] Mean platelet volume determi nationOrdered By: Domo Weaver on 01-06-2025 Platelet mean volume (Bld) [Entitic vol] 10.0 fL 6.2-12.0 [facility] Monocyte percentageOrdered B y: Domo Weaver on 01-06-2025 Monocytes/100 WBC (Bld) 4.7 % 0-10 [facility] Neutrophil percentageOrdered By: Domo Weaver on 01-06-2025 Neutrophils/100 WBC (Bld) 62.7 % 47-70 [facility] Nucleated red blood cell per centageOrdered By: Domo Weaver on 01-06-2025 Nucleated RBC/100 WBC (Bld) [Ratio] 0 % 0-5 [facility] Platelet countOrdered By: Ra clarita Weaver on 01-06-2025 Platelets (Bld) [#/Vol] 358 10*3/uL 150-450 [facility] Potassium measurement (mass/ volume)Ordered By: Domo Weaver on 01-06-2025 Potassium (Unsp spec) [Mass/Vol] 3.7 mmol/L 3.3-5.1 [facility] RBC Auto (Bld) [#/Vol]Ordere d By: Domo Weaver on 01-06-2025 RBC (Bld) [#/Vol] 3.78 10*6/uL Low 4.2-5.4 [facility] Serum creatinine measurement (mass/volume)Ordered By: Domo Weaver on 01-06-2025 Creatinine [Mass/Vol] 0.69 mg/dL Low 0.70-1.20 [facility] Serum globulin measurementOr dered By: Domo Weaver on 01-06-2025 Globulin (S) [Mass/Vol] 3.0 g/dL 2.2-4.2 [facility] Serum glucose measurement (m ass/volume)Ordered By: Domo Weaver on 01-06-2025 Glucose [Mass/Vol] 121 mg/dL High 70-99 [facility] Serum or plasma C reactive p rotein measurement (mass/volume)Ordered By: Domo Weaver on 01-06-2025 CRP [Mass/Vol] 5.97 mg/L High 0.0-3.0 [facility] Serum or plasma alanine parisi otransferase (ALT) measurementOrdered By: Domo Weaver on 01-06-2025 ALT [Catalytic activity/Vol] 15 U/L <35 [facility] Serum or plasma albumin arielle urement (mass/volume)Ordered By: Domo Weaver on 01-06-2025 Albumin [Mass/Vol] 4.2 g/dL 3.5-5.0 [facility] Serum or plasma albumin/glob ulin mass ratioOrdered By: Domo Weaver on 01-06-2025 Albumin/Globulin [Mass ratio] 1.4 {ratio} 0.9-2.4 [facility] Serum or plasma alkaline marcelo sphatase measurementOrdered By: Domo Weaver on 01-06-2025 ALP [Catalytic activity/Vol] 57 U/L 35-104 [facility] Serum or plasma calcium arielle urement (mass/volume)Ordered By: Domo Weaver on 01-06-2025 Calcium [Mass/Vol] 9.2 mg/dL 7.6-11.0 [facility] Serum or plasma urea nitroge n measurement (mass/volume)Ordered By: Domo Weaver on 05-10-2025 Urea nitrogen [Mass/Vol] 11 mg/dL 4-19 [facility] Sodium levelOrdered By: Alisa Michelle on 01-06-2025 Sodium [Moles/Vol] 138 mmol/L 133-145 [facility] Total proteinOrdered By: Lai fabian Friend on 01-06-2025 Protein [Mass/Vol] 7.2 g/dL 5.9-8.4 [facility] White blood cell (WBC) count Ordered By: Domo Weaver on 01-06-2025 WBC (Bld) [#/Vol] 8.8 10*3/uL 4.4-11.0 [facility] Choriogonadotropin.beta subu niton 01-05-2025 HCG.beta subunit Qn 422 m[IU]/mL High <5 [facility] Comment on above: Order Comment: REF V ALUES FOLLICULAR PHASE 20-144 MID CYCLE 64-357 LUTEAL PHASE 56-214 POSTMENOPAUSE < 32 PREPUBERTY < 20 FEMALE 10-18Y 8-110 MALE 10-18Y < 20 ADULT MALE < 40 Result Comment: Low- level positive HCG results can be seen in early , in markie- or post-menopausal females due to normal pituitary HCG production, or with analytic interference. Repeat testing in 48-72 hours can aid in assessing for as results should double in this time period. FSH measurement is recommended in markie- or post-menopausal females as concurrent elevation of FSH can support pituitary production as the source of the HCG elevation. Performed By: #### 2 243-4 #### MARIA E STEFFI ([id number]) [facility] ([facility]) [address] [place] [id number] Gastroenterology Visit Repor ton 01-01-2025 Gastroenterology Visit Report [facility] [address] [place] [address] OFFICE VISIT Date of Service: 01/01/25 MR#: [id number] Acct: [id number] Name: MARIXA AMOS Rep #: [id number] : 1995 Provider: Domo Weaver DO Age/Sex: 29/F [place] [facility] [place]: Signed Intake Vital Signs 12/09/23 13:23 07/12/24 08:32 Height 5 ft 3 in 5 ft 3 in Intake Visit Reasons: 1 Y FU Allergies No Known Allergies Allergy (Verified 07/12/24 08:25) Medications ???Medication ???Instructions ???Recorded ???Confirmed ???Type prenat.vits,mario,min-iron -folic 1 tab PO DAILY 10/22/21 01/01/25 H istory ustekinumab 90 mg/mL subcutaneous 90 mg subcut Q8W #1 mL 07/07/24 0 01/01/25 Rx syringe (Stelara) cholecalciferol (vitamin D3) 62.5 mcg PO 07/12/24 01/01/25 History mcg (2,500 unit) capsule omega 5-tkj-yrc-fish oil 300 1 cap PO QDAY 07/12/24 01/01/25 Hi story mg-1,000 mg capsule (Fish Oil) omeprazole 20 mg capsule,delayed 20 mg PO BID 90 days #180 caps 05/2301/01/25 Rx release aspirin 81 mg tablet,delayed 81 mg PO QDAY 01/01/25 01/01/25 Hi story release (Adult Aspirin Regimen) estradiol 2 mg tablet (Estrace) 6 mg PO QDAY 01/01/25 01/01/25 His tory prednisone 10 mg tablet 10 mg PO QDAY 01/01/25 01/01/25 Hi story progesterone oil IM 01/01/25 01/01/25 History PFSH Medical History (Updated 07/12/24 @ 10:30 by Jesika Farrar PAPER REELER, PAPER REELER-C) Endometriosis Low iron Anemia Latent tuberculosis Ulcerative colitis Surgical History History of esophagogastroduodenosco py (EGD) History of laparoscopy History of colonoscopy Family History Grandmother Diabetes Grandfather Diabetes Social History Smoking Status: Never smoker alcohol intake: never substance use type: does not use caffeine: Yes what type of physical activity do you participate in: walking and weight training frequency: 5-6 times per week seatbelt use: always do you feel safe at home: Yes additional social history: -Romel Female Reproductive History Menstrual Ab spontaneous: 1 HPI HPI Details: MARIXA AMOS, is a 29 F who presents to the office today for follow up. *BGI established 07.28.21 previously diagnosed with IBD, Crohn???s versus UC/proctitis extending to sigmoid colon/pancolitis following colonoscopy; treated with balsalazide until 2019. Reports frequent LGIB. Humira started 2018 and currently taking QWeek OV 09.10.21 continues with Humira Qweek and is doing well from a GI standpoint. She has concerns that her UC is impairing her ability to get as fertility testing was normal for her and her . Start azathioprine OV 10.22.21 Azathioprine unable to be started r/t need for PA. ID Dr. Villagomez established and treated with four months rifampin; OK to continue Humira, do not start azathioprine for one month. OV 03.05.22 possible change of therapy to Stelara. Start hyoscyamine. ? Colonoscopy 05.25.23 cancelled related to . OV 08.03.23 reports loose stools two weeks prior with mucous and blood tinge. Reports recent miscarriage, will possibly require surgical intervention, her OB asked her to skip her Stelara dose; they are not actively trying for children at this time. OV 5..24 pt reports that she is feeling well overall. She reports increased fatigue since starting budesonide a few weeks ago. Reports 2 formed bowel movements per day and denies blood in the stool. Pt continues with current medication regimen. OV 5..25 pt reports that she is feeling well, continues IV treatments, reports that she is 4 weeks . Pt reports some constipation and HB, but states she thinks this is due to the medications she is taking for her IVF. Pt continues with Stelara Q8W. ? ESR/CRP Calp/Lact? TB? serum/ab 11.29.21 22/<2.9 --/--? --? 23.7/neg? CBC (anemic), CMP, LDH, IBD . --/--? 61/? +? --/--? Titers 07.07.22 13/<2.9 --/--? --? --/--? apANCA H1:160, CMV IgG+ CBC (anemic), CMP, LDH, CHARLES comp, celiac, SABRINA, GAME? (more content not included)... Normal [facility] No Panel Informationon 12-26 Gavino Tristan MD 12/26/2024 11:43 AM Embryo Transfer Date/Time: 12/26/2024 11:35 AM Performed by: Gavino Tristan MD Authorized by: Imelda Pollard MD Consent: Consent obtained: Written Consent given by: Patient Procedure risks and benefits discussed: yes Patient questions answered: yes Patient agrees, verbalizes understanding, and wants to proceed: yes Educational handouts given: yes Instructions and paperwork completed: yes Procedure: Pelvic exam performed: No Cervix cleaned and prepped: Yes Speculum placed in vagina: Yes Ultrasound guidance: Yes Catheter type: Sure View Chaudhary Uterine position: Anteverted Bladder backfilling performed: No, bladder sufficiently full Uterine visualization complete: Yes Difficulty: easy Estimated blood loss: None Post-procedure: Patient tolerated procedure well: yes Comments: Preop diagnosis: Infertility Post op diagnosis: Same [employer] Asset Protection Manager: Dr. Holder Depth: 7 cm Curve: anterior Distance from fundus: 12 mm Embryo stage at day of transfer: day 5 Embryo notes: 4AA PGT: Not performed Anesthesia: None IV Fluids: None UOP: Not recorded Specimens: None Complications: None Attending Attestation: I was physically present for narayanan and critical portions performed by the fellow. I reviewed the fellow's documentation and discussed the patient with the fellow. I agree with the fellow's medical decision making as documented in the fellow's note. Gavino Tristan 12/26/24 11:35 AM [facility] Work Phone: Progesteroneon 12-26-2024 Progesterone [Mass/Vol] 34.6 ng/mL Normal [facility] Comment on above: Order Comment: REF V ALUULICES FOLLICULAR PHASE 20-144 MID CYCLE 64-357 LUTEAL PHASE 56-214 POSTMENOPAUSE < 32 PREPUBERTY < 20 FEMALE 10-18Y 8-110 MALE 10-18Y < 20 ADULT MALE < 40 Performed By: #### 2 243-4 #### MARIA E KAPADIA ([id number]) [facility] ([facility]) [address] [place] [address] LIPID PANEL, STANDARDon 11-29 Cholesterol [Mass/Vol] 228 mg/dL High <200 [facility] Comment on above: Order Comment: FASTI NG:YES FASTING: YES Performed By: #### 1 6819, 8740 #### [facility] [address], [address] [place] [address] Shredding Floor Equipment Operator: Cody Spencer MD Cholesterol in HDL [Mass/Vol] 68 mg/dL Normal > OR = 50 [facility] Comment on above: Order Comment: FASTI NG:YES FASTING: YES Performed By: #### 1 6440, 2650 #### [facility] [place] [address] Shredding Floor Equipment Operator: Cody Spencer MD Cholesterol in LDL [Mass/Vol] 127 mg/dL High [facility] Comment on above: Order Comment: FASTI NG:YES FASTING: YES Result Comment: Refe rence range: <100 Desirable range <100 mg/dL for primary prevention; <70 mg/dL for patients with CHD or diabetic patients with > or = 2 CHD risk factors. LDL-C is now calculated using the Dior calculation, which is a validated novel method providing better accuracy than the Friedewald equation in the estimation of LDL-C. Luis Miguel GALLARDO et al. DESIRE. 2013;310(19): 1173-9554 (http://education.Group Therapy Records.Pinger/faq/WRV289) Performed By: #### 1 1221, 3205 #### [facility] [address] [address] Shredding Floor Equipment Operator: Cody Spencer MD Cholesterol.total/Chol esterol in HDL [Mass ratio] 3.4 {ratio} Normal <5.0 [facility] Comment on above: Order Comment: FASTI NG:YES FASTING: YES Performed By: #### 1 73, 7600 #### [facility] [address], [address] [place] [address] Shredding Floor Equipment Operator: Cody Spencer MD NON HDL CHOLESTEROL 160 mg/dL (calc) High <130 [facility] Comment on above: Order Comment: FASTI NG:YES FASTING: YES Result Comment: For patients with diabetes plus 1 major ASCVD risk factor, treating to a non-HDL-C goal of <100 mg/dL (LDL-C of <70 mg/dL) is considered a therapeutic option. Performed By: #### 1 73, 7600 #### [facility] [address], [address] [place] [address] Shredding Floor Equipment Operator: Cody Spencer MD Triglyceride [Mass/Vol] 190 mg/dL High <150 [facility] Comment on above: Order Comment: FASTI NG:YES FASTING: YES Performed By: #### 1 6606, 7600 #### [facility] [address], [address] [place] [address] Shredding Floor Equipment Operator: Cody Spencer MD VITAMIN D,25-OH,TOTAL,IAon 0 12-21-2024 VITAMIN D,25-OH,TOTAL,IA 35 ng/mL Normal 30-100 [facility] Comment on above: Result Comment: Kiarra min D Status 25-OH Vitamin D: Deficiency: <20 ng/mL Insufficiency: 20 - 29 ng/mL Optimal: > or = 30 ng/mL For 25-OH Vitamin D testing on patients on D2-supplementation and patients for whom quantitation of D2 and D3 fractions is required, the QuestAssureD(TM) 25-OH VIT D, (D2,D3), LC/MS/MS is recommended: order code 83555 (patients >2yrs). See Note 1 Note 1 For additional information, please refer to http://education.Group Therapy Records.Pinger/faq/HAA681 (This link is being provided for informational/ educational purposes only.) Performed By: #### 1 7306, 7600 #### [facility] [address], [address] [place] [address] Shredding Floor Equipment Operator: Cody Spencer MD Destr of lesionon 12-20-2024 Complexity: simple Destruction method: cryotherapy Informed consent: discussed and consent obtained Debridement: hyperkeratotic portion removed with sharp debridement Lesion destroyed using liquid nitrogen: Yes Cryotherapy cycles: 3 Outcome: patient tolerated procedure well with no complications Post-procedure details: wound care instructions given [facility] Work Phone: [facility] Work Phone: Progesteroneon 12-20-2024 Progesterone [Mass/Vol] 0.2 ng/mL Normal [facility] Comment on above: Order Comment: REF V ALUES FOLLICULAR PHASE 20-144 MID CYCLE 64-357 LUTEAL PHASE 56-214 POSTMENOPAUSE < 32 PREPUBERTY < 20 FEMALE 10-18Y 8-110 MALE 10-18Y < 20 ADULT MALE < 40 Performed By: #### 2 243-4 #### MARIA E KAPADIA ([id number]) [facility] ([facility]) [address] [place] [address] Estradiolon 12-15-2024 E2 [Mass/Vol] 417 pg/mL Normal [facility] Comment on above: Order Comment: REF V ALUES FOLLICULAR PHASE 20-144 MID CYCLE 64-357 LUTEAL PHASE 56-214 POSTMENOPAUSE < 32 PREPUBERTY < 20 FEMALE 10-18Y 8-110 MALE 10-18Y < 20 ADULT MALE < 40 Performed By: #### 2 243-4 #### MARIA E KAPADIA ([id number]) [facility] ([facility]) [address] [place] [address] Progesteroneon 12-15-2024 Progesterone [Mass/Vol] 0.6 ng/mL Normal [facility] Comment on above: Order Comment: REF V ALUES FOLLICULAR PHASE 20-144 MID CYCLE 64-357 LUTEAL PHASE 56-214 POSTMENOPAUSE < 32 PREPUBERTY < 20 FEMALE 10-18Y 8-110 MALE 10-18Y < 20 ADULT MALE < 40 Performed By: #### 2 243-4 #### MARIA E LI ([id number]) [facility] ([facility]) [address] [place] [id number] [facility] ENDOMETRIAL LINING CH ECKon 12-15-2024 [facility] ENDOMETRIAL LINING CHECK Trilaminar appearance to the endometrium is noted. Normal [facility] ANTI-MULLERIAN HORMONE (AMH) , FEMALEon 11-25-2024 ANTI-MULLERIAN HORMONE (AMH), FEMALE 1.90 ng/mL Normal 0.69-13.39 [facility] Comment on above: Performed By: #### 1 1363, 70687, 13641, 8472, 32852, 498 #### [facility] [address], [address] [place] [address] Shredding Floor Equipment Operator: Cody Spencer MD #### [id number] #### [facility] [address] [facility] [place], [place] Shredding Floor Equipment Operator: Jeremiah Holder M.D.,PhD #### [id number] #### [facility], [address] [place] [address] Shredding Floor Equipment Operator: Bianka Brenner MD,PhD,HAMLET CHLAMYDIA/N. GONORRHOEAE RNA , TMA, UROGENITALon 11-25-2024 CHLAMYDIA TRACHOMATIS RNA, TMA, UROGENITAL Not detected Normal NOT DETECTED [facility] Comment on above: Performed By: #### 1 1363, 28306, 45821, 8472, 21684, 498 #### [facility] [address], [address] [place] [address] Shredding Floor Equipment Operator: Cody Spencer MD #### [id number] #### [facility] [id number] [facility] [place], [place] Shredding Floor Equipment Operator: Jeremiah Holder M.D.,PhD #### [id number] #### [facility], [address] [place] [address] Shredding Floor Equipment Operator: Bianka Brenner MD,PhD,HAMLET COMMENT Normal [facility] Comment on above: Result Comment: The analytical performance characteristics of this assay, when used to test SurePath(TM) specimens have been determined by [employer]. The modifications have not been cleared or approved by the FDA. This assay has been validated pursuant to the CLIA regulations and is used for clinical purposes. For additional information, please refer to https://education.Moda Operandi/faq/WNL706 (This link is being provided for information/ educational purposes only.) Performed By: #### 1 1363, 92189, 70468, 8472, 28467, 498 #### [facility] [place] [address] Shredding Floor Equipment Operator: Cody Spencer MD #### [id number] #### [facility]/[address] [place], [place] Shredding Floor Equipment Operator: Jeremiah Holder M.D.,PhD #### [id number] #### [facility] [address] [place], [place] Shredding Floor Equipment Operator: Bianka Brenner MD,PhD,HAMLET NEISSERIA GONORRHOEAE RNA, TMA, UROGENITAL Not detected Normal NOT DETECTED [facility] Comment on above: Performed By: #### 1 1363, 78237, 72826, 8472, 82178, 498 #### [facility] [address], [address] [place] [address] Shredding Floor Equipment Operator: Cody Spencer MD #### [id number] #### [facility]/[address] [place], [place] Shredding Floor Equipment Operator: Jeremiah Holder M.D.,PhD #### [id number] #### [facility], [address] [place], [place] Shredding Floor Equipment Operator: Bianka Brenner MD,PhD,HAMLET HEMOGLOBIN A1c WITH eAGon eAG (mmol/L) 6.0 mmol/L Normal [facility] Comment on above: Performed By: #### 1 1363, 50073, 57002, 8472, 20102, 498 #### [facility] [address], [address] [place] [id number] Shredding Floor Equipment Operator: Cody Spencer MD #### 64706 #### [facility] [id number] [facility] [address] [place] Shredding Floor Equipment Operator: Jeremiah Holder M.D.,PhD #### 72954 #### [facility]/[address] [address] Shredding Floor Equipment Operator: Bianka Brenner MD,PhD,HAMLET HEMOGLOBIN A1c 5.4 % of total Hgb Normal <5.7 [facility] Comment on above: Result Comment: For the purpose of screening for the presence of diabetes: <5.7% Consistent with the absence of diabetes 5.7-6.4% Consistent with increased risk for diabetes (prediabetes) > or =6.5% Consistent with diabetes This assay result is consistent with a decreased risk of diabetes. Currently, no consensus exists regarding use of hemoglobin A1c for diagnosis of diabetes in children. According to [place] Diabetes Association (ADA) guidelines, hemoglobin A1c <7.0% represents optimal control in non- diabetic patients. Different metrics may apply to specific patient populations. Standards of Medical Care in Diabetes(ADA). Performed By: #### 1 1363, 61185, 98502, 8472, 60110, 498 #### [facility] [address], [address] [place] [phone] Shredding Floor Equipment Operator: Cody Spencer MD #### 90531 #### [facility] [address] [facility] [address] [place] Shredding Floor Equipment Operator: Jeremiah Holder M.D.,PhD #### [id number] #### [facility], [address] [facility] [place] [address] Shredding Floor Equipment Operator: Bianka Brenner MD,PhD,HAMLET Magnesium [Mass/Vol] 108 mg/dL Normal [facility] Comment on above: Performed By: #### 1 1363, 88502, 62717, 8472, 82948, 498 #### [facility] [address], [address] [place] [address] Shredding Floor Equipment Operator: Cody Spencer MD #### 93376 #### [facility]/[place] [id number] [facility] [place], [place] Shredding Floor Equipment Operator: Jeremiah Holder M.D.,PhD #### [id number] #### [facility], [address] [place] [address] Shredding Floor Equipment Operator: Bianka Brenner MD,PhD,HAMLET HEPATITIS B SURFACE ANTIGEN W/REFL CONFIRMon 11-25-2024 HEPATITIS B SURFACE ANTIGEN Non-Reactive Normal NON-REACTIVE [facility] Comment on above: Result Comment: For additional information, please refer to http://education.Moda Operandi/faq/EPW010 (This link is being provided for informational/ educational purposes only.) Performed By: #### 1 1363, 71073, 15667, 8472, 22848, 498 #### [facility] [address], [address] [place] [address] Shredding Floor Equipment Operator: Cody Spencer MD #### 51526 #### [facility]/[place] [id number] [facility] [place], [place] Shredding Floor Equipment Operator: Jeremiah Holder M.D.,PhD #### 72980 #### [facility], [address] [facility] [place] Shredding Floor Equipment Operator: Bianka Brenner MD,PhD,HAMLET HEPATITIS C AB W/REFL TO HCV RNA, QN, PCRon 11-25-2024 HEPATITIS C ANTIBODY Non-Reactive Normal NON-REACTIVE [facility] Comment on above: Result Comment: HCV antibody was non-reactive. There is no laboratory evidence of HCV infection. In most cases, no further action is required. However, if recent HCV exposure is suspected, a test for HCV RNA (test code 59712) is suggested. For additional information please refer to http://XATA.Moda Operandi/faq/NOI58a0 (This link is being provided for informational/ educational purposes only.) Performed By: #### 1 1363, 33134, 93209, 8472, 90005, 498 #### [facility] [address] [place] [address], [address] [place] [address] Shredding Floor Equipment Operator: Cody Spencer MD #### [id number] #### [facility] [address] [facility] [place], [place] Shredding Floor Equipment Operator: Jeremiah Holder M.D.,PhD #### [id number] #### [facility], [address] [place] [address] Shredding Floor Equipment Operator: Bianka Brenner MD,PhD,HAMLET HIV 1/2 ANTIGEN/ANTIBODY,FOU RTH GENERATION W/RFLon 11-25-2024 HIV AG/AB, 4TH GEN Non-Reactive Normal NON-REACTIVE [facility] Comment on above: Result Comment: HIV- 1 antigen and HIV-1/HIV-2 antibodies were not detected. There is no laboratory evidence of HIV infection. PLEASE NOTE: This information has been disclosed to you from records whose confidentiality may be protected by state law. If your state requires such protection, then the state law prohibits you from making any further disclosure of the information without the specific written consent of the person to whom it pertains, or as otherwise permitted by law. A general authorization for the release of medical or other information is NOT sufficient for this purpose. For additional information please refer to http://XATA.Moda Operandi/faq/NCL972 (This link is being provided for informational/ educational purposes only.) The performance of this assay has not been clinically validated in patients less than 2 years old. Performed By: #### 1 1363, 74925, 44700, 8472, 79514, 498 #### [facility] [address], [address] [place] [address] Shredding Floor Equipment Operator: Cody Spencer MD #### 67624 #### [facility]/[place] [id number] [facility] [place], [place] Shredding Floor Equipment Operator: Jeremiah Holder M.D.,PhD #### 35291 #### [facility], [address] [place] [address] Shredding Floor Equipment Operator: Bianka Brenner MD,PhD,HAMLET SYPHILIS ANTIBODY CASCADING REFLEXon 11-25-2024 T. PALLIDUM AB Negative Normal Negative [facility] Comment on above: Result Comment: No antibodies to T. pallidum (the agent causing syphilis) were detected in the specimen. This result, however, does not exclude very recent T. pallidum infection; testing of a second specimen, collected 2-4 weeks after this specimen, is recommended if the index of suspicion for recent infection is high. Performed By: #### 1 1363, 51294, 58819, 8472, 12502, 498 #### [facility] [address], [address] [place] [address] Shredding Floor Equipment Operator: Cody Spencer MD #### [id number] #### [facility] [address] [facility] [place] Shredding Floor Equipment Operator: Jeremiah Holder M.D.,PhD #### 10393 #### [facility], [address] [place], [place] Shredding Floor Equipment Operator: Bianka Brenner MD,PhD,HAMLET TSH W/REFLEX TO FT4on 2024 TSH W/REFLEX TO FT4 0.97 mIU/L Normal [facility] Comment on above: Result Comment: Refe rence Range > or = 20 Years 0.40-4.50 Ranges First trimester 0.26-2.66 Second trimester 0.55-2.73 Third trimester 0.43-2.91 Performed By: #### 1 1363, 08579, 60696, 8472, 57082, 498 #### [facility] [address], [address] [place] [address] Shredding Floor Equipment Operator: Cody Spencer MD #### 68823 #### [facility] [address] [facility] [address] Shredding Floor Equipment Operator: Jeremiah Holder M.D.,PhD #### 15122 #### [facility] [address] [address] Shredding Floor Equipment Operator: Bianka Brenner MD,PhD,HAMLET No Panel Informationon 11-22 Henrietta Herndon MD 11/22/2024 10:18 AM Egg Retrieval Date/Time: 11/22/2024 10:15 AM Performed by: Henrietta Herndon MD Authorized by: Katelyn Benitez [facility] Consent: Consent obtained: Verbal and written Consent given by: Patient Procedure risks and benefits discussed: yes Patient questions answered: yes Patient agrees, verbalizes understanding, and wants to proceed: yes Educational handouts given: yes Instructions and paperwork completed: yes Procedure: Anesthesia: MAC Pelvic exam performed: Yes Cervix cleaned and prepped: Yes Speculum placed in vagina: Yes Tenaculum applied to cervix: No Ultrasound guidance: Yes Left ovary: Follicle present Right ovary: Follicle present Pt. post-ovulatory: No Speculum type: Laura Retrieval method: transvaginal Needle inserted: Yes Ovaries aspirated: Yes Free fluid in pelvis: No Post-procedure: Patient tolerated procedure well: yes Comments: Preop diagnosis: Female infertility Post op diagnosis: [employer] Asset Protection Manager: Leslie IV Fluids: 700 cc EBL: 5 cc UOP: Not recorded Specimen: Oocytes Complications: None Number of Oocytes right ovary: 14 Ovarian acc ss (right): Easy Number of Oocytes left ovary: 9 Ovarian access (left): Easy Endometrial thickness: TL Needle type: Single Additional notes: I was present and supervised the entire procedure. Henrietta Thiago Khushboo 11/22/24 10:16 AM [facility] Work Phone: Blood type and Indirect anti body screen panel (Bld)on 11-21-2024 ABO group Nom (Bld) B [facility] Comment on above: Performed By: #### 3 4532-2 ####MARIA E KAPADIA ([id number])[facility] ([facility])[address] [place] [address] Blood group antibody screen Ql Negative [facility] Comment on above: Performed By: #### 3 4532-2 ####MARIA E KAPADIA ([id number])[facility] ([facility])[address] [place] [address] D Ag Ql (Bld) Positive [facility] Comment on above: Performed By: #### 3 4532-2 ####MARIA E KAPADIA ([id number])[facility] ([facility])[address] [place] [address] Lutropinon 11-21-2024 Lutropin Qn 29.1 IU/L [facility] Comment on above: Result Comment: LH R eference Values Follicular Phase 1.5-10.0 Mid-Cycle 13.0-72.0 Luteal Phase 0.5-13.0 Menopause 15.0-65.0 Pre-puberty 0- 3.0 Children 0- 6.0 Adult Male 1.0- 9.0 Luteinizing Hormone is performed using the Елена [employer] Access Immunoassay. LH testing is performed using a different test methodology at [facility] than other [facility]. Direct result comparison should only be made within the same method. Performed By: #### 2 243-4 #### MARIA E KAPADIA ([id number]) [facility] ([facility]) [address] [place] [address] Progesteroneon 11-21-2024 Progesterone [Mass/Vol] 5.4 ng/mL [facility] Comment on above: Order Comment: REF V ALUES FOLLICULAR PHASE 20-144 MID CYCLE 64-357 LUTEAL PHASE 56-214 POSTMENOPAUSE < 32 PREPUBERTY < 20 FEMALE 10-18Y 8-110 MALE 10-18Y < 20 ADULT MALE < 40 Performed By: #### 2 243-4 #### MARIA E KAPADIA ([id number]) [facility] ([facility]) [address] [place] [address] Estradiolon 11-20-2024 E2 [Mass/Vol] 5336 pg/mL Normal [facility] Comment on above: Order Comment: REF V ALUES FOLLICULAR PHASE 20-144 MID CYCLE 64-357 LUTEAL PHASE 56-214 POSTMENOPAUSE < 32 PREPUBERTY < 20 FEMALE 10-18Y 8-110 MALE 10-18Y < 20 ADULT MALE < 40 Performed By: #### 2 243-4 #### MARIA E KAPADIA ([id number]) [facility] ([facility]) [address] [place] [address] Follicle Diameter USon 11-20 Follicle scan perfor med with follicle measurements in report. Trilaminar appearance to the endometrium is noted. Free fluid is noted in the cul de sac. RIS SECTRA ONLY [facility] Work Phone: Radiology Study observation (narrative) [facility] Work Phone: Progesteroneon 11-20-2024 Progesterone [Mass/Vol] 1.8 ng/mL Normal [facility] Comment on above: Order Comment: REF V ALUES FOLLICULAR PHASE 20-144 MID CYCLE 64-357 LUTEAL PHASE 56-214 POSTMENOPAUSE < 32 PREPUBERTY < 20 FEMALE 10-18Y 8-110 MALE 10-18Y < 20 ADULT MALE < 40 Performed By: #### 2 243-4 #### MARIA E KAPADIA ([id number]) [facility] ([facility]) [address] [place] [address] [facility] US PELVIS LIMITED FOLLIC LES-FOLLICLE STUDIES PERFORMEDon 11-20-2024 [facility] PELVIS LIMITED FOLLICLES-FOLLICLE STUDIES PERFORMED Follicle scan performed with follicle measurements in report. Trilaminar appearance to the endometrium is noted. Free fluid is noted in the cul de sac. Normal [facility] Estradiolon 11-18-2024 E2 [Mass/Vol] 2969 pg/mL Normal [facility] Comment on above: Order Comment: REF V ALUES FOLLICULAR PHASE 20-144 MID CYCLE 64-357 LUTEAL PHASE 56-214 POSTMENOPAUSE < 32 PREPUBERTY < 20 FEMALE 10-18Y 8-110 MALE 10-18Y < 20 ADULT MALE < 40 Performed By: #### 2 243-4 #### MARIA E KAPADIA ([id number]) [facility] ([facility]) [address] [place] [address] Follicle Diameter USon 11-18 Follicle scan perfor med with follicle measurements in report. RIS SECTRA ONLY [facility] Work Phone: Radiology Study observation (narrative) [facility] Work Phone: Progesteroneon 11-18-2024 Progesterone [Mass/Vol] 0.9 ng/mL [facility] Comment on above: Order Comment: REF V ALUES FOLLICULAR PHASE 20-144 MID CYCLE 64-357 LUTEAL PHASE 56-214 POSTMENOPAUSE < 32 PREPUBERTY < 20 FEMALE 10-18Y 8-110 MALE 10-18Y < 20 ADULT MALE < 40 Performed By: #### 2 243-4 #### MARIA E KAPADIA ([id number]) [facility] ([facility]) [address] [place] [address] [facility] US PELVIS LIMITED FOLLIC LES-FOLLICLE STUDIES PERFORMEDon 11-18-2024 [facility] PELVIS LIMITED FOLLICLES-FOLLICLE STUDIES PERFORMED Follicle scan performed with follicle measurements in report. Normal [facility] Estradiolon 11-16-2024 E2 [Mass/Vol] 1058 pg/mL Normal [facility] Comment on above: Order Comment: REF V ALUES FOLLICULAR PHASE 20-144 MID CYCLE 64-357 LUTEAL PHASE 56-214 POSTMENOPAUSE < 32 PREPUBERTY < 20 FEMALE 10-18Y 8-110 MALE 10-18Y < 20 ADULT MALE < 40 Performed By: #### 2 243-4 #### MARIA E KAPADIA ([id number]) [facility] ([facility]) [address] [place] [address] Follicle Diameter USon 11-16 Follicle scan perfor med with follicle measurements in report. Trilaminar appearance to the endometrium is noted. RIS SECTRA ONLY [facility] Work Phone: Radiology Study observation (narrative) [facility] Work Phone: [facility] PELVIS LIMITED FOLLIC LES-FOLLICLE STUDIES PERFORMEDon 11-16-2024 [facility] PELVIS LIMITED FOLLICLES-FOLLICLE STUDIES PERFORMED Follicle scan performed with follicle measurements in report. Trilaminar appearance to the endometrium is noted. Normal [facility] Estradiolon 11-14-2024 E2 [Mass/Vol] 488 pg/mL Normal [facility] Comment on above: Order Comment: REF V ALUES FOLLICULAR PHASE 20-144 MID CYCLE 64-357 LUTEAL PHASE 56-214 POSTMENOPAUSE < 32 PREPUBERTY < 20 FEMALE 10-18Y 8-110 MALE 10-18Y < 20 ADULT MALE < 40 Performed By: #### 2 243-4 #### MARIA E KAPADIA ([id number]) [facility] ([facility]) [address] [place] [address] Follicle Diameter USon 11-14 Follicle scan perfor med with follicle measurements in report. Trilaminar appearance to the endometrium is not noted. Free fluid is noted in the cul de sac. RIS SECTRA ONLY [facility] Work Phone: Radiology Study observation (narrative) [facility] Work Phone: [facility] PELVIS LIMITED FOLLIC LES-FOLLICLE STUDIES PERFORMEDon 11-14-2024 [facility] PELVIS LIMITED FOLLICLES-FOLLICLE STUDIES PERFORMED Follicle scan performed with follicle measurements in report. Trilaminar appearance to the endometrium is not noted. Free fluid is noted in the cul de sac. Normal [facility] CBC panel Auto (Bld)on 11-08 Erythrocyte distribution width (RBC) [Ratio] 12.0 % Normal 11.5-14.5 [facility] Comment on above: Performed By: #### 2 243-4 #### MARIA E KAPADIA ([id number]) [facility] ([facility]) [address] [place] [address] Hematocrit (Bld) [Volume fraction] 35.3 % Low 36.0-46.0 [facility] Comment on above: Performed By: #### 2 243-4 #### MARIA E KAPADIA ([id number]) [facility] ([facility]) [address] [place] [address] Hemoglobin (Bld) [Mass/Vol] 11.4 g/dL Low 12.0-16.0 [facility] Comment on above: Performed By: #### 2 243-4 #### MARIA E KAPADIA ([id number]) [facility] ([facility]) [address] [place] [address] MCH (RBC) [Entitic mass] 29.3 pg Normal 26.0-34.0 [facility] Comment on above: Performed By: #### 2 243-4 #### MARIA E KAPADIA ([id number]) [facility] ([facility]) [address] [place] [address] MCHC (RBC) [Mass/Vol] 32.3 g/dL Normal 32.0-36.0 [facility] Comment on above: Performed By: #### 2 243-4 #### MARIA E KAPADIA ([id number]) [facility] ([facility]) [address] [place] [address] MCV (RBC) [Entitic vol] 91 fL Normal 80-100 [facility] [facility] Comment on above: Performed By: #### 2 243-4 #### MARIA E KAPADIA ([id number]) [facility] ([facility]) [address] [place] [address] Nucleated RBC/100 WBC (Bld) [Ratio] 0.0 /100 WBCs Normal 0.0-0.0 [facility] Comment on above: Performed By: #### 2 243-4 #### MARIA E KAPADIA ([id number]) [facility] ([facility]) [address] [place] [address] Platelets (Bld) [#/Vol] 326 x10*3/uL Normal 150-450 [facility] Comment on above: Performed By: #### 2 243-4 #### MARIA E KAPADIA ([id number]) [facility] ([facility]) [address] [place] [address] RBC (Bld) [#/Vol] 3.89 x10*6/uL Low 4.00-5.20 [facility] Comment on above: Performed By: #### 2 243-4 #### MARIA E KAPADIA ([id number]) [facility] ([facility]) [address] [place] [address] WBC (Bld) [#/Vol] 5.2 x10*3/uL Normal 4.4-11.3 [facility] Comment on above: Performed By: #### 2 243-4 #### MARIA E KAPADIA ([id number]) [facility] ([facility]) [address] [place] [address] Estradiolon 11-08-2024 E2 [Mass/Vol] 43 pg/mL [facility] Comment on above: Order Comment: REF V ALUES FOLLICULAR PHASE 20-144 MID CYCLE 64-357 LUTEAL PHASE 56-214 POSTMENOPAUSE < 32 PREPUBERTY < 20 FEMALE 10-18Y 8-110 MALE 10-18Y < 20 ADULT MALE < 40 Performed By: #### 2 243-4 #### MARIA E KAPADIA ([id number]) [facility] ([facility]) [address] [place] [address] Follicle Diameter USon 11-08 Follicle scan perfor med with follicle measurements in report., Trilaminar appearance to the endometrium is noted., and Free fluid is noted in the cul de sac. RIS SECTRA ONLY Radiology Study observation (narrative) [facility] Work Phone: Follicle Diameter USOrdered By: Henrietta Herndon on 11-08-2024 [facility] Work Phone: TERRENCE US PELVIS LIMITED FOLLIC LES-FOLLICLE STUDIES PERFORMEDon 11-08-2024 [facility] US PELVIS LIMITED FOLLICLES-FOLLICLE STUDIES PERFORMED Follicle scan performed with follicle measurements in report., Trilaminar appearance to the endometrium is noted., and Free fluid is noted in the cul de sac. Normal [facility] No Panel Informationon 10-11 Henrietta Herndon MD 10/11/2024 9:48 AM Egg Retrieval Date/Time: 10/11/2024 9:41 AM Performed by: Henrietta Herndon MD Authorized by: Katelyn Benitez APRN-RANDALL Consent: Consent obtained: Verbal and written Consent given by: Patient Procedure risks and benefits discussed: yes Patient questions answered: yes Patient agrees, verbalizes understanding, and wants to proceed: yes Educational handouts given: yes Instructions and paperwork completed: yes Procedure: Anesthesia: MAC Pelvic exam performed: Yes Cervix cleaned and prepped: Yes Speculum placed in vagina: Yes Tenaculum applied to cervix: No Ultrasound guidance: Yes Left ovary: Follicle present Right ovary: Follicle present Pt. post-ovulatory: No Speculum type: Laura Retrieval method: transvaginal Needle inserted: Yes Ovaries aspirated: Yes Free fluid in pelvis: No Post-procedure: Patient tolerated procedure well: yes Comments: Preop diagnosis: Female infertility Post op diagnosis: Same Market Asset Protection Manager: Leslie IV Fluids: 300 cc EBL: 5 cc UOP: Not recorded Specimen: Oocytes Complications: None Number of Oocytes right ovary: 16 Ovarian access (right): Easy Number of Oocytes left ovary: 9 Ovarian access (left): Easy Endometrial thickness: Tl Needle type: Single Additional notes: I was present and supervised the entire procedure. Henrietta Herndon 10/11/24 9:42 AM [facility] RIS [facility] Work Phone: Lutropinon 10-10-2024 Lutropin Qn 42.5 IU/L Normal [facility] Comment on above: Result Comment: LH R eference Values Follicular Phase 1.5-10.0 Mid-Cycle 13.0-72.0 Luteal Phase 0.5-13.0 Menopause 15.0-65.0 Pre-puberty 0- 3.0 Children 0- 6.0 Adult Male 1.0- 9.0 Luteinizing Hormone is performed using the Елена Luis Access Immunoassay. LH testing is performed using a different test methodology at [facility] than other [facility]. Direct result comparison should only be made within the same method. Performed By: #### 2 243-4 #### MARIA E STEFFI ([id number]) [facility] ([facility]) [address] [place] [address] Progesteroneon 10-10-2024 Progesterone [Mass/Vol] 5.0 ng/mL [facility] Comment on above: Order Comment: REF V ALUES FOLLICULAR PHASE 20-144 MID CYCLE 64-357 LUTEAL PHASE 56-214 POSTMENOPAUSE < 32 PREPUBERTY < 20 FEMALE 10-18Y 8-110 MALE 10-18Y < 20 ADULT MALE < 40 Performed By: #### 2 243-4 #### MARIA E KAPADIA ([id number]) [facility] ([facility]) [address] [place] [address] Estradiolon 10-09-2024 E2 [Mass/Vol] 7372 pg/mL [facility] Comment on above: Order Comment: REF V ALUES FOLLICULAR PHASE 20-144 MID CYCLE 64-357 LUTEAL PHASE 56-214 POSTMENOPAUSE < 32 PREPUBERTY < 20 FEMALE 10-18Y 8-110 MALE 10-18Y < 20 ADULT MALE < 40 Estradiol measurement is performed using the Елена Amplience Access Estradiol Immunoassay. Estradiol testing is performed using a different test methodology at [facility] than other [facility]. Direct result comparison should only be made within the same method. Performed By: #### 2 243-4 #### MARIA E KAPADIA ([id number]) [facility] ([facility]) [address] [place] [address] Progesteroneon 10-09-2024 Progesterone [Mass/Vol] 1.3 ng/mL [facility] Comment on above: Order Comment: REF V ALUES Male <0.2-0.8 Follicular Phase <0.2-1.5 Luteal Phase 7.4-15.4 Post Menopausal <0.2-0.2 1ST Trimester 12.0-84.0 2ND Trimester 10.2-58.8 3RD Trimester 46.5-160 Progesterone is performed using the Елена Amplience Access Immunoassay. Progesterone testing is performed using a different test methodology at [facility] than other [facility]. Direct result comparison should only be made within the same method. Performed By: #### 2 839-9 #### MARIA E KAPADIA ([id number]) [facility] ([facility]) [address] [place] [address] [facility] US PELVIS LIMITED FOLLIC LES-FOLLICLE STUDIES PERFORMEDon 10-09-2024 TERRENCE US PELVIS LIMITED FOLLICLES-FOLLICLE STUDIES PERFORMED Follicle scan performed with follicle measurements in report. [facility] Estradiolon 10-08-2024 E2 [Mass/Vol] 4637 pg/mL [facility] Comment on above: Order Comment: REF V ALUES FOLLICULAR PHASE 20-144 MID CYCLE 64-357 LUTEAL PHASE 56-214 POSTMENOPAUSE < 32 PREPUBERTY < 20 FEMALE 10-18Y 8-110 MALE 10-18Y < 20 ADULT MALE < 40 Estradiol measurement is performed using the Елена Luis Access Estradiol Immunoassay. Estradiol testing is performed using a different test methodology at [facility] than other [facility]. Direct result comparison should only be made within the same method. Performed By: #### 2 243-4 #### MARIA E KAPADIA ([id number]) [facility] ([facility]) [address] [place] [address] Follicle Diameter USon 10-08 Follicle scan perfor med with follicle measurements in report. RIS SECTRA ONLY Radiology Study observation (narrative) [facility] Work Phone: Follicle Diameter USOrdered By: Gavino Tristan on 10-08-2024 [facility] Work Phone: Progesteroneon 10-08-2024 Progesterone [Mass/Vol] 0.9 ng/mL [facility] Comment on above: Order Comment: REF V ALUES Male <0.2-0.8 Follicular Phase <0.2-1.5 Luteal Phase 7.4-15.4 Post Menopausal <0.2-0.2 1ST Trimester 12.0-84.0 2ND Trimester 10.2-58.8 3RD Trimester 46.5-160 Progesterone is performed using the Елена Amplience Access Immunoassay. Progesterone testing is performed using a different test methodology at [facility] than other [facility]. Direct result comparison should only be made within the same method. Performed By: #### 2 839-9 #### MARIA E KAPADIA ([id number]) [facility] ([facility]) [address] [place] [address] TERRENCE US PELVIS LIMITED FOLLIC LES-FOLLICLE STUDIES PERFORMEDon 10-08-2024 TERRENCE US PELVIS LIMITED FOLLICLES-FOLLICLE STUDIES PERFORMED Follicle scan performed with follicle measurements in report. Normal [facility] Estradiolon 10-07-2024 E2 [Mass/Vol] 4276 pg/mL [facility] Comment on above: Order Comment: REF V ALUES FOLLICULAR PHASE 20-144 MID CYCLE 64-357 LUTEAL PHASE 56-214 POSTMENOPAUSE < 32 PREPUBERTY < 20 FEMALE 10-18Y 8-110 MALE 10-18Y < 20 ADULT MALE < 40 Estradiol measurement is performed using the Елена Luis Access Estradiol Immunoassay. Estradiol testing is performed using a different test methodology at [facility] than other [facility]. Direct result comparison should only be made within the same method. Performed By: #### 2 243-4 #### MARIA E KAPADIA ([id number]) [facility] ([facility]) [address] [place] [address] Follicle Diameter USon 10-07 Follicle scan perfor [facility] with follicle measurements in report. RIS SECTRA ONLY Radiology Study observation (narrative) [facility] Work Phone: Follicle Diameter USOrdered By: Gavino Tristan on 10-07-2024 [facility] Work Phone: Progesteroneon 10-07-2024 Progesterone [Mass/Vol] 0.8 ng/mL [facility] Comment on above: Order Comment: REF V ALUES Male <0.2-0.8 Follicular Phase <0.2-1.5 Luteal Phase 7.4-15.4 Post Menopausal <0.2-0.2 1ST Trimester 12.0-84.0 2ND Trimester 10.2-58.8 3RD Trimester 46.5-160 Progesterone is performed using the Елена Amplience Access Immunoassay. Progesterone testing is performed using a different test methodology at [facility] than other [facility]. Direct result comparison should only be made within the same method. Performed By: #### 2 839-9 #### MARIA E KAPADIA ([id number]) [facility] ([facility]) [address] [place] [address] TERRENCE US PELVIS LIMITED FOLLIC LES-FOLLICLE STUDIES PERFORMEDon 10-07-2024 TERR[facility] US PELVIS LIMITED FOLLICLES-FOLLICLE STUDIES PERFORMED Follicle scan performed with follicle measurements in report. Normal [facility] Estradiolon 10-05-2024 E2 [Mass/Vol] 1290 pg/mL [facility] Comment on above: Order Comment: REF V ALUES FOLLICULAR PHASE 20-144 MID CYCLE 64-357 LUTEAL PHASE 56-214 POSTMENOPAUSE < 32 PREPUBERTY < 20 FEMALE 10-18Y 8-110 MALE 10-18Y < 20 ADULT MALE < 40 Performed By: #### 2 243-4 #### MARIA E KAPADIA ([id number]) [facility] ([facility]) [address] [place] [address] Follicle Diameter USon 10-05 Follicle scan perfor med with follicle measurements in report. Trilaminar appearance to the endometrium is noted. RIS SECTRA ONLY [facility] Work Phone: Radiology Study observation (narrative) [facility] Work Phone: TERRENCE US PELVIS LIMITED FOLLIC LES-FOLLICLE STUDIES PERFORMEDon 10-05-2024 [facility] US PELVIS LIMITED FOLLICLES-FOLLICLE STUDIES PERFORMED Follicle scan performed with follicle measurements in report. Trilaminar appearance to the endometrium is noted. Normal [facility] Estradiolon 10-03-2024 E2 [Mass/Vol] 479 pg/mL Normal [facility] Comment on above: Order Comment: REF V ALUES FOLLICULAR PHASE 20-144 MID CYCLE 64-357 LUTEAL PHASE 56-214 POSTMENOPAUSE < 32 PREPUBERTY < 20 FEMALE 10-18Y 8-110 MALE 10-18Y < 20 ADULT MALE < 40 Performed By: #### 2 243-4 #### MARIA E KAPADIA ([id number]) [facility] ([facility]) [address] [place] [id number] TERR[facility] US PELVIS LIMITED FOLLIC LES-FOLLICLE STUDIES PERFORMEDon 10-03-2024 [facility] US PELVIS LIMITED FOLLICLES-FOLLICLE STUDIES PERFORMED Follicle scan performed with follicle measurements in report., Trilaminar appearance to the endometrium is noted., and Free fluid is noted in the cul de sac. Normal [facility] CBC panel Auto (Bld)on 09-27 Erythrocyte distribution width (RBC) [Ratio] 12.3 % Normal 11.5-14.5 [facility] Comment on above: Performed By: #### 5 8410-2 #### MARIA E KAPADIA ([id number]) [facility] ([facility]) [address] [place] [address] Hematocrit (Bld) [Volume fraction] 34.4 % Low 36.0-46.0 [facility] Comment on above: Performed By: #### 5 8410-2 #### MARIA E KAPADIA ([id number]) [facility] ([facility]) [address] [place] [address] Hemoglobin (Bld) [Mass/Vol] 11.4 g/dL Low 12.0-16.0 [facility] Comment on above: Performed By: #### 5 8410-2 #### MARIA E KAPADIA ([id number]) [facility] ([facility]) [address] [place] [address] MCH (RBC) [Entitic mass] 29.7 pg Normal 26.0-34.0 [facility] Comment on above: Performed By: #### 5 8410-2 #### MARIA E KAPADIA ([id number]) [facility] ([facility]) [address] [place] [address] MCHC (RBC) [Mass/Vol] 33.1 g/dL Normal 32.0-36.0 [facility] Comment on above: Performed By: #### 5 8410-2 #### MARIA E KAPADIA ([id number]) [facility] ([facility]) [address] [place] [address] MCV (RBC) [Entitic vol] 90 fL Normal 80-100 [facility] Comment on above: Performed By: #### 5 8410-2 #### MARIA E KAPADIA ([id number]) [facility] ([facility]) [address] [place] [id number] Nucleated RBC/100 WBC (Bld) [Ratio] 0.0 /100 WBCs Normal 0.0-0.0 [facility] Comment on above: Performed By: #### 5 8410-2 #### MARIA E KAPADIA ([id number]) [facility] ([facility]) [address] [place] [address] Platelets (Bld) [#/Vol] 334 x10*3/uL Normal 150-450 [facility] Comment on above: Performed By: #### 5 8410-2 #### MARIA E KAPADIA ([id number]) [facility] ([facility]) [address] [place] [address] RBC (Bld) [#/Vol] 3.84 x10*6/uL Low 4.00-5.20 [facility] Comment on above: Performed By: #### 5 8410-2 #### MARIA E KAPADIA ([id number]) [facility] ([facility]) [address] [place] [id number] WBC (Bld) [#/Vol] 5.7 x10*3/uL Normal 4.4-11.3 [facility] Comment on above: Performed By: #### 5 8410-2 #### MARIA E KAPADIA ([id number]) [facility] ([facility]) [address] [place] [address] Estradiolon 09-27-2024 E2 [Mass/Vol] pg/mL [facility] Comment on above: Order Comment: REF V ALUES FOLLICULAR PHASE 20-144 MID CYCLE 64-357 LUTEAL PHASE 56-214 POSTMENOPAUSE < 32 PREPUBERTY < 20 FEMALE 10-18Y 8-110 MALE 10-18Y < 20 ADULT MALE < 40 Performed By: #### 2 243-4 #### MARIA E KAPADIA ([id number]) [facility] ([facility]) [address] [place] [address] TERRENCE US PELVIS LIMITED FOLLIC LES-FOLLICLE STUDIES PERFORMEDon 09-27-2024 [facility] US PELVIS LIMITED FOLLICLES-FOLLICLE STUDIES PERFORMED Follicle scan performed with follicle measurements in report. and Trilaminar appearance to the endometrium is not noted. Normal [facility] HCG ( test) Ql (U)O rdered By: Sydney Grier on 08-14-2024 Preg Test, Ur Negative Negative [facility] No Panel InformationOrdered By: Sydney Grier on 08-14-2024 [facility] No Panel Informationon 08-14 Hilary Holder MD 08/14/2024 11:03 AM Hysteroscopy diagnostic Date/Time: 08/14/2024 11:02 AM Performed by: Hilary Holder MD Authorized by: Imelda Pollard MD Consent: Consent obtained: Verbal and written Consent given by: Patient Risks, benefits, and alternatives were discussed: yes Risks discussed: Bleeding, infection and pain [place] protocol: Procedure explained and questions answered to patient or proxy's satisfaction: yes Relevant documents present and verified: yes Test results available: yes Imaging studies available: yes Required blood products, implants, devices, and special equipment available: yes Immediately prior to procedure, a time out was called: yes Patient identity confirmed: Verbally with patient, arm band and hospital-assigned identification number Pre-procedure details: Skin preparation: Povidone-iodine Procedure specific details: Procedure: Diagnostic Hysteroscopy Preop diagnosis: fertility testing Post op diagnosis: Same Market Asset Protection Manager: Fellow Anesthesia: None IV: None EBL: 3 cc Specimens: None Complications: None Risks benefits and alternatives of the procedure explained to the patient and informed consent was obtained. Urine test was performed and was negative. Time out was performed. The patient was placed in the dorsal lithotomy position and a sterile speculum was placed in the vagina. The cervix was sterilized with Betadine x3. Paracervical block with lidocaine 1% was administered. Tenaculum: Yes Dilation: No The hysteroscope was placed in the cervix and advanced into the uterine cavity. Normal saline was used for distension media. Images were obtained and findings noted as below. All instruments were then removed. Good hemostasis was noted. Patient tolerated the procedure well returned to the recovery area in stable condition. . Findings: Cavity: smooth cavity, areas of erythema consistent with chronic endometritis Ostia: Bilateral tubal ostia visualized Additional Notes:will plan for 14d doxycyline Post-procedure details: Procedure completion: Tolerated well, no immediate complications [facility] Research Aide Office Visit Reporton 07-12-2024 Research Aide Office Visit Report [facility] [address], [address] [place] [address] OFFICE VISIT Date of Service: 07/12/24 MR#: [id number] Acct: [id number] Name: MARIXA AMOS Rep #: [id number] : 1995 Provider: DERRICK joshua Age/Sex: 29/F Location: [facility] Status: Signed Intake Vital Signs 06/29/24 12:57 07/12/24 08:25 07/12/24 08:32 Height 5 ft 3 in 5 ft 3 in 5 ft 3 in Weight: 182 lb 184 lb 4 oz BMI 32.2 32.6 BP 126/74 H 122/74 H Pulse 70 Intake Visit Reasons: fertility consult Chief Complaint: Fertility consult Veterinary Technologist Required: No Is patient in pain?: No Allergies No Known Allergies Allergy (Verified 07/12/24 08:25) Medications ???Medication ???Instructions ???Recorded ???Confirmed ???Type prenat.vits,mario,min-iron -folic 1 tab PO DAILY 10/22/21 07/12/24 History omeprazole 20 mg capsule,delayed 20 mg PO BID 90 days #180 caps 08/03/23 07/12/24 Rx release ustekinumab 90 mg/mL subcutaneous 90 mg subcut Q8W #1 mL 07/07/24 07/12/24 Rx syringe (Stelara) cholecalciferol (vitamin D3) 62.5 mcg PO 07/12/24 07/12/24 History mcg (2,500 unit) capsule omega 8-jem-xan-fish oil 300 1 cap PO QDAY 07/12/24 07/12/24 History mg-1,000 mg capsule (Fish Oil) Is last menstrual period known: Yes Last Menstrual Period: 07/12/24 Post menopausal: No Patient : No : No PFSH Medical History (Updated 07/12/24 @ 10:30 by Jesika Farrar PAPER REELER, PAPER REELER-C) Endometriosis Low iron Anemia Latent tuberculosis Ulcerative colitis Surgical History History of esophagogastroduodenosco py (EGD) History of laparoscopy History of colonoscopy Family History Grandmother Diabetes Grandfather Diabetes Social History Smoking Status: Never smoker alcohol intake: never substance use type: does not use caffeine: Yes what type of physical activity do you participate in: walking and weight training frequency: 5-6 times per week seatbelt use: always do you feel safe at home: Yes additional social history: -Romelangelica MALONE fertility consult Details: MARIXA AMOS is a 29 year old who presents for infertility discussion. She has already had normal OAR with slighly elevated AMH but aware she has PCOS. Had normal HSG with exp lap in 07/2023 at [place] and told endometriosis. She failed letrozole and IUI at another provider. SA normal. She has appt in [place] 08/03 at for infertility discussion. She just wants to confirm there is nothing more she can do at this facility. Female Reproductive History Last Menstrual Period: 07/12/24 History 1 Elective abortions Hx Para 0 Spontaneous abortions 1 Hx # Term Pregnancies Ectopic pregnancies Hx # Pregnancies Multiple births # of living children ROS Const Constitutional: Reports system reviewed and no additional complaints, except as documented Eyes Eyes: Reports system reviewed and no additional complaints, except as documented GI GI: Denies abdominal pain or change in bowel habits : Reports as per HPI Exam Const General: cooperative and no acute distress Orientation: oriented x3 HENMT Head: normal to inspection and normocephalic Eyes General: appearance normal, both eyes and all related structures Neck Neck: normal visual inspection Resp Effort Inspection: normal respiratory effort Neuro Cognition: normal cognition Speech: speech normal Psych Appearance: grossly normal Mood: congruent mood Affect: normal affect Speech and Movement: speech and movement normal Attitude: cooperative Judgment: judgment good Coding Level of Care Code Off vis,est,level 3 Diagnoses PCOS (polycystic ovarian syndrome) E28.2 Infertility Endometriosis N80.9 Assessment and Plan Assessment and Plan (1) PCOS (polycystic ovarian syndrome): Status: Acute (2) Infertility: Status: Acute Comment: SA-nl, normal pelvic US and TSH Nl HSG 07/2023 (3) Endometriosis: Status: Acute Comment: STAGE 2 [place] 07/2023 ROR Plan Discussed that she has had all labs, failed femara and that would be the extent of infertility management at this practice. Will send recent labs to for upcoming appt and also will need for her to send to She plans to continue weight management at this office. 07/12/24 1032 Date Jesika Farrar NP PAPER REELER-C Cosigner Signature: Date (if applicable) CC: Normal [facility] Research Aide Office Visit Reporton 06-29-2024 Research Aide Office Visit Report [facility] [address], [address] [place] [address] OFFICE VISIT Date of Service: 06/29/24 MR#: [id number] Acct: [id number] Name: MARIXA AMOS Rep #: [id number] : 1995 Provider: DERRICK Hyman Age/Sex: 28/F Location: [facility] Status: Signed Intake Vital Signs 06/01/24 09:21 06/29/24 12:57 Height 5 ft 3 in 5 ft 3 in Weight: 183 lb 2 oz 182 lb BMI 32.4 32.2 BP 139/76 H 126/74 H Pulse 83 70 Intake Visit Reasons: 4 WK WM Chief Complaint: med check Veterinary Technologist Required: No Is patient in pain?: No Allergies No Known Allergies Allergy (Verified 06/29/24 13:01) Medications ???Medication ???Instructions ???Recorded ???Confirmed ???Type prenat.vits,mario,min-iron -folic 1 tab PO DAILY 10/22/21 06/29/24 History hyoscyamine sulfate 0.125 mg 0.125 mg PO BID-QID PRN abdominal 03/05/22 06/29/24 Rx sublingual tablet discomfort #100 tabs omeprazole 20 mg capsule,delayed 20 mg PO BID 90 days #180 caps 08/03/23 06/29/24 Rx release ustekinumab 90 mg/mL subcutaneous 90 mg subcut Q8W #1 mL 08/05/23 06/29/24 Rx syringe (Stelara) budesonide 3 mg 3 mg PO BID #119 ea 12/15/23 06/29/24 Rx capsule,delayed,extended release budesonide 3 mg 3 mg PO DAILY #90 ea 01/06/24 06/29/24 Rx capsule,delayed,extended release Last Menstrual Period: 04/29/24 PFSH PFSH Medical History Endometriosis Low iron Anemia Latent tuberculosis Ulcerative colitis Surgical History History of esophagogastroduodenosco py (EGD) History of laparoscopy History of colonoscopy Family History Grandmother Diabetes Grandfather Diabetes Social History Smoking Status: Never smoker alcohol intake: never substance use type: does not use caffeine: Yes what type of physical activity do you participate in: walking and weight training frequency: 5-6 times per week seatbelt use: always do you feel safe at home: Yes additional social history: -Romel History 1 Elective abortions Hx Para 0 Spontaneous abortions 1 Hx # Term Pregnancies Ectopic pregnancies Hx # Pregnancies Multiple births # of living children HPI 4 WK WM Details: MARIXA AMOS is a 28 year old Female presenting for a weight management consultation. She reports she is doing well; she has been working hard at home to increase her physical exercise and dietary/nutrition modifications; she will be starting her menses here in the next 4 days. Her will be returning from training in July. Female Reproductive History Last Menstrual Period: 04/29/24 ROS Const Denies body aches, Denies chills, Denies fatigue, Denies fever(s), Denies headache(s), Denies malaise, Denies stops breathing during sleep and Denies weakness Eyes Denies change in vision and Denies diplopia ENT Denies headache(s) Card Denies chest pain, Denies dyspnea, Denies irregular heart rhythm, Denies leg edema and Denies palpitations Resp Denies cough and Denies dyspnea GI Denies constipation Musc Denies numbness Skin/Breast Denies rash Neuro No headache(s), No memory loss, No numbness and No weakness Psych Denies anxiety, Denies depression, Denies homicidal ideation, Denies memory loss and Denies suicidal ideation Endo Denies fatigue and Denies palpitations Exam Const General: cooperative, healthy appearing, comfortable, no acute distress and well groomed Orientation: alert, awake and oriented x3 Neck Neck: normal visual inspection Resp Effort Inspection: normal respiratory effort, able to speak in complete sentences and symmetric chest movement Skin General: no rashes or lesions noted Neuro General: patient alert, patient awake and patient oriented x3 Gait: normal gait Psych Appearance: grossly normal Mental Status: mental status grossly normal Affect: normal affect Speech and Movement: speech and movement normal Attitude: cooperative Thought Process: normal Assessment and Plan Assessment and Plan (1) Other obesity: Status: Acute Plan: SW- 186; 05/04/2024; 183 (06/01/24). Down 3 pounds. On track for 5% in 3 months. Down another 1 pound. Initial goal- s/p 5% weight reduction within 3 months of nutritional and medication intervention recommendations. Additional 5% goal within the next 3 months. initial obesity assessment lab panel ordered and reviewed; recheck on labs completed and liver function normalized 06/24/2024; EKG--SB with SA (PAC'S). Asymptomatic at this time. Nutrition plan: Balanced calorie restricted nutritional plan [id number] mario. Myfitnesspal tracking. (more content not included)... Normal [facility] PROGESTERONE 4317on 06-25-20 PROGESTERONE 0.3 ng/mL Normal . [facility] Comment on above: Order Comment: Nday 21 lab Result Comment: Foll icular phase 0.1 - 0.9 Luteal phase 1.8 - 23.9 Ovulation phase 0.1 - 12.0 First trimester 11.0 - 44.3 Second trimester 25.4 - 83.3 Third trimester 58.7 - 214.0 Postmenopausal 0.0 - 0.1 Performed at: - [address] [id number] Merchandise Flow Team Leader: Almas Saavedra PhD, Phone: [phone] Performed By: #### L 923.7230 ####[facility] [address] [place], [address] Comprehensive Metabolic Prof [facility] 06-24-2024 Albumin [Mass/Vol] 3.9 g/dL Normal 3.2-5.0 [facility] Comment on above: Performed By: #### L 651.6245 #### [facility] [address] [place], [address] Albumin/Globulin [Mass ratio] 1.1 {ratio} Normal 0.9-2.4 [facility] Comment on above: Performed By: #### L 500.4050 #### [facility] [address] [place], [address] ALK P 59 U/L Normal 45-117 [facility] Comment on above: Performed By: #### L 500.4050 #### [facility] [address] [place], [address] ALT [Catalytic activity/Vol] 32 U/L Normal 13-56 [facility] Comment on above: Performed By: #### L 500.4050 #### [facility] [address] [place], [address] AST [Catalytic activity/Vol] 15 U/L Normal 15-37 [facility] Comment on above: Performed By: #### L 500.4050 #### [facility] [address] [place], [address] Bilirubin [Mass/Vol] 0.40 mg/dL Normal 0.20-1.00 [facility] Comment on above: Result Comment: For patients on eltrombopag therapy, use of Dimension [place] TBIL is not recommended. Performed By: #### L 500.4050 #### [facility] [address] [place], [address] BUN/CRE 15.6 RATIO Normal 10-20 [facility] Comment on above: Performed By: #### L 500.4050 #### [facility] [address] [place], [address] CA,Total 9.4 mg/dL Normal 8.5-10.1 [facility] Comment on above: Performed By: #### L 500.4050 #### [facility] [address] [place], [address] Chloride [Moles/Vol] 106 mmol/L Normal 98-107 [facility] Comment on above: Performed By: #### L 500.4050 #### [facility] [address] [place], [address] CO2 [Moles/Vol] 26.0 mmol/L Normal 21.0-32.0 [facility] Comment on above: Performed By: #### L 500.4050 #### [facility] [address] [place], [address] Creatinine [Mass/Vol] 0.71 mg/dL Normal 0.55-1.02 [facility] Comment on above: Result Comment: The validity of the calculated GFR GFRAA in patients over 70 years has not been determined. Clinical correlation is essential. Performed By: #### L 500.4050 #### [facility] [address] [place], [address] EST GFR - AA 125 mL/min Normal >60 [facility] Comment on above: Result Comment: Afri can [place] GFR Calc Performed By: #### L 500.4050 #### [facility] [address] [place], [address] GAP 4 Low 5-15 [facility] Comment on above: Performed By: #### L 500.4050 #### [facility] [address] [place], [address] GFR/1.73 sq M.predicted among non-blacks MDRD (S/P/Bld) [Vol rate/Area] 103 mL/min/{1.73_m2} Normal >60 [facility] Comment on above: Result Comment: Non- GFR Calc Performed By: #### L 500.4050 #### [facility] [address] [place], [address] Globulin (S) [Mass/Vol] 3.7 g/dL Normal 2.2-4.2 [facility] Comment on above: Performed By: #### L 500.4050 #### [facility] [address] [place], [address] Glucose [Mass/Vol] 96 mg/dL Normal 74-106 [facility] Comment on above: Performed By: #### L 500.4050 #### [facility] [address] [place], [address] Potassium [Moles/Vol] 4.1 mmol/L Normal 3.5-5.1 [facility] Comment on above: Performed By: #### L 500.4050 #### [facility] [address] [place], [address] Sodium [Moles/Vol] 136 mmol/L Normal 136-145 [facility] Comment on above: Performed By: #### L 500.4050 #### [facility] [address] [place], [address] T PROT 7.6 g/dL Normal 6.4-8.2 [facility] Comment on above: Performed By: #### L 500.4050 #### [facility] [address] [place], [address] Urea nitrogen [Mass/Vol] 11 mg/dL Normal 7-18 [facility] Comment on above: Performed By: #### L 500.4050 #### [facility] [address] [place], [address] Research Aide Office Visit Reporton 06-01-2024 Research Aide Office Visit Report [facility] [address], [address] [place] [address] OFFICE VISIT Date of Service: 06/01/24 MR#: [id number] Acct: [id number] Name: MARIXA AMOS Rep #: [id number] : 1995 Provider: DERRICK Hyman Age/Sex: 28/F Location: [facility] [place] Status: Signed Intake Vital Signs 05/04/24 10:42 06/01/24 09:21 Height 5 ft 3 in 5 ft 3 in Weight: 183 lb 2 oz BMI 32.4 BP 139/76 H Pulse 83 Intake Visit Reasons: 4 w fu Chief Complaint: weight management Veterinary Technologist Required: No Is patient in pain?: No Allergies No Known Allergies Allergy (Verified 06/01/24 09:23) Medications ???Medication ???Instructions ???Recorded ???Confirmed ???Type prenat.vits,mario,min-iron -folic 1 tab PO DAILY 10/22/21 06/01/24 History hyoscyamine sulfate 0.125 mg 0.125 mg PO BID-QID PRN abdominal 03/05/22 06/01/24 Rx sublingual tablet discomfort #100 tabs omeprazole 20 mg capsule,delayed 20 mg PO BID 90 days #180 caps 08/03/23 06/01/24 Rx release ustekinumab 90 mg/mL subcutaneous 90 mg subcut Q8W #1 mL 08/05/23 06/01/24 Rx syringe (Roblara) budesonide 3 mg 3 mg PO BID #119 ea 12/15/23 06/01/24 Rx capsule,delayed,extended release budesonide 3 mg 3 mg PO DAILY #90 ea 01/06/24 06/01/24 Rx capsule,delayed,extended release Last Menstrual Period: 04/29/24 [facility] Medical History Endometriosis Low iron Anemia Latent tuberculosis Ulcerative colitis Surgical History History of esophagogastroduodenosco py (EGD) History of laparoscopy History of colonoscopy Family History Grandmother Diabetes Grandfather Diabetes Social History Smoking Status: Never smoker alcohol intake: never substance use type: does not use caffeine: Yes what type of physical activity do you participate in: walking and weight training frequency: 5-6 times per week seatbelt use: always do you feel safe at home: Yes additional social history: -Romel History 1 Elective abortions Hx Para 0 Spontaneous abortions 1 Hx # Term Pregnancies Ectopic pregnancies Hx # Pregnancies Multiple births # of living children HPI 4 w fu Details: MARIXA AMOS is a 28 year old Female presenting for a weight management follow up. She is doing well with her lifestyle changes. She has been tracking her nutritional intake; she has increased her exercise and incorporated movement into her days. She reports she has not felt the scale move much but her visit today she has lost 3 pounds. She reports overall her moods are better and she feels well. She has not had a menses this month; she did take test and was negative. She does have URI and took sudafed this morning. Female Reproductive History Last Menstrual Period: 04/29/24 ROS Const Denies body aches, Denies chills, Denies fatigue, Denies fever(s), Denies headache(s), Denies malaise, Denies stops breathing during sleep and Denies weakness Eyes Denies change in vision and Denies diplopia ENT Denies headache(s) Card Denies chest pain, Denies dyspnea, Denies irregular heart rhythm, Denies leg edema and Denies palpitations Resp Denies cough and Denies dyspnea GI Denies constipation Musc Denies numbness Skin/Breast Denies rash Neuro No headache(s), No memory loss, No numbness and No weakness Psych Denies anxiety, Denies depression, Denies homicidal ideation, Denies memory loss and Denies suicidal ideation Endo Denies fatigue and Denies palpitations Exam Const General: cooperative, healthy appearing, comfortable, no acute distress and well groomed Orientation: alert, awake and oriented x3 Neck Neck: normal visual inspection and no lymphadenopathy Resp Effort Inspection: normal respiratory effort, able to speak in complete sentences and symmetric chest movement Skin General: no rashes or lesions noted Neuro General: patient alert, patient awake and patient oriented x3 Gait: normal gait Psych Appearance: grossly normal Mental Status: mental status grossly normal Affect: normal affect Speech and Movement: speech and movement normal Attitude: cooperative Thought Process: normal Assessment and Plan Assessment and Plan (1) Other obesity: Status: Acute Plan: SW- 186; 05/04/2024; 183 (06/01/24). Down 3 pounds. On track for 5% in 3 months. Initial goal- s/p 5% weight reduction within 3 months of nutritional and medication intervention recommendations. Additional 5% goal within the next 3 months. initial obesity assessment lab panel ordered and reviewed; elevated AST/ALT-was taking tylenol at t (more content not included)... Normal [facility] 12 Lead EKGon 05-26-2024 12 Lead EKG [facility] [address] [place] [address] 12 Lead EKG 05/26/24 0850 MR#: [id number] Acct: [id number] Name: MARIXA AMOS Rep #: [id number] : 1995 28 From: Yosi Narayan MD Attending Dr: Renetta Cha, PAPER REELER-C Status: REG CLI Ordering Dr: Renetta Cha PAPER REELERTaylor Date: 05/26/24 Location: [facility] Sex: F C Admitted: Test Reason : WEIGHT MNGT Blood Pressure : / mmHG Vent. Rate : 052 BPM Atrial Rate : 052 BPM P-R Int : 182 ms QRS Dur : 076 ms QT Int : 404 ms P-R-T Axes : 019 047 038 degrees QTc Int : 375 ms Sinus bradycardia with sinus arrhythmia Otherwise normal ECG Confirmed by YOSI NARAYAN MD ([id number]), offline editor LUIS QUIGLEY ([id number]) on 05/26/2024 2:53:52 PM Referred By: Renetta Cha Confirmed By:YOSI NARAYAN MD 05/26/24 1453 Date Yosi Narayan MD CC: PAPER REELER-C Renetta Cha; CATRACHITO MERCEDES Signed Normal [facility] CBC W/Diff, Automatedon 09-0 -2023 Absolute Lymph 2.02 X10 3/uL Normal 0.83-4.51 [facility] Comment on above: Performed By: #### L 506.0400, L506.1000, L501.9985, L100.0100, L501.9520, L500.4050 #### [facility] [address] [place], [address] Absolute Neut 3.2 X10 3/uL Normal 2.0-7.7 [facility] Comment on above: Performed By: #### L 506.0400, L506.1000, L501.9985, L100.0100, L501.9520, L500.4050 #### [facility] [address] [place], [address] Basophils/100 WBC (Bld) 0.7 % Normal 0-1 [facility] Comment on above: Performed By: #### L 506.0400, L506.1000, L501.9985, L100.0100, L501.9520, L500.4050 #### [facility] [address] [place], [address] Eosinophils/100 WBC (Bld) 1.6 % Normal 0-5 [facility] Comment on above: Performed By: #### L 506.0400, L506.1000, L501.9985, L100.0100, L501.9520, L500.4050 #### [facility] [address] [place], [address] Erythrocyte distribution width (RBC) [Ratio] 12.3 % Normal 11.6-14.6 [facility] Comment on above: Performed By: #### L 506.0400, L506.1000, L501.9985, L100.0100, L501.9520, L500.4050 #### [facility] [address] [place], [address] Hematocrit (Bld) [Volume fraction] 37.4 % Normal 37-47 [facility] Comment on above: Performed By: #### L 506.0400, L506.1000, L501.9985, L100.0100, L501.9520, L500.4050 #### [facility] [address] [place], [address] Hemoglobin (Bld) [Mass/Vol] 12.2 g/dL Normal 12.0-15.0 [facility] Comment on above: Performed By: #### L 506.0400, L506.1000, L501.9985, L100.0100, L501.9520, L500.4050 #### [facility] [address] [place], [address] IG% 0.200 Normal 0.0-0.9 [facility] Comment on above: Result Comment: IG% - Immature Granulocytes (promyelocytes, myelocytes and metamyelocytes) > 1% indicates that a LEFT SHIFT is Present. Performed By: #### L 506.0400, L506.1000, L501.9985, L100.0100, L501.9520, L500.4050 #### [facility] [address] [place], [address] Lymphocytes/100 WBC (Bld) 34.9 % Normal 19-41 [facility] Comment on above: Performed By: #### L 506.0400, L506.1000, L501.9985, L100.0100, L501.9520, L500.4050 #### [facility] [address] [place], [address] MCH (RBC) [Entitic mass] 29.9 pg Normal 27.0-32.0 [facility] Comment on above: Performed By: #### L 506.0400, L506.1000, L501.9985, L100.0100, L501.9520, L500.4050 #### [facility] [address] [place], [address] MCHC (RBC) [Mass/Vol] 32.6 g/dL Normal 32-36 [facility] Comment on above: Performed By: #### L 506.0400, L506.1000, L501.9985, L100.0100, L501.9520, L500.4050 #### [facility] [address] [place], [address] MCV (RBC) [Entitic vol] 91.7 fL Normal 81-99 [facility] Comment on above: Performed By: #### L 506.0400, L506.1000, L501.9985, L100.0100, L501.9520, L500.4050 #### [facility] [address] [place], [address] Monocytes/100 WBC (Bld) 7.1 % Normal 0-10 [facility] Comment on above: Performed By: #### L 506.0400, L506.1000, L501.9985, L100.0100, L501.9520, L500.4050 #### [facility] [address] [place], [address] Neutrophils/100 WBC (Bld) 55.5 % Normal 47-70 [facility] Comment on above: Performed By: #### L 506.0400, L506.1000, L501.9985, L100.0100, L501.9520, L500.4050 #### [facility] [address] [place], [address] Nucleated RBC (Bld) [#/Vol] 0 10*3/uL Normal 0-5 [facility] Comment on above: Performed By: #### L 506.0400, L506.1000, L501.9985, L100.0100, L501.9520, L500.4050 #### [facility] [address] [place], [address] Platelet mean volume (Bld) [Entitic vol] 10.0 fL Normal 6.2-12.0 [facility] Comment on above: Performed By: #### L 506.0400, L506.1000, L501.9985, L100.0100, L501.9520, L500.4050 #### [facility] [address] [place], [address] Platelets (Bld) [#/Vol] 337 10*3/uL Normal 150-450 [facility] Comment on above: Performed By: #### L 506.0400, L506.1000, L501.9985, L100.0100, L501.9520, L500.4050 #### [facility] [address] [place], [address] RBC (Bld) [#/Vol] 4.08 10*6/uL Low 4.2-5.4 [facility] Comment on above: Performed By: #### L 506.0400, L506.1000, L501.9985, L100.0100, L501.9520, L500.4050 #### [facility] [address] [place], [address] RDW SD 41.5 fl Normal 35.1-43.9 [facility] Comment on above: Performed By: #### L 506.0400, L506.1000, L501.9985, L100.0100, L501.9520, L500.4050 #### [facility] [address] [place], [address] WBC (Bld) [#/Vol] 5.8 10*3/uL Normal 4.4-11.0 [facility] Comment on above: Performed By: #### L 506.0400, L506.1000, L501.9985, L100.0100, L501.9520, L500.4050 #### [facility] [address] [place], [address] Comprehensive Metabolic Prof moon 05-04-2024 Albumin [Mass/Vol] 4.3 g/dL Normal 3.2-5.0 [facility] Comment on above: Performed By: #### L 506.0400, L506.1000, L501.9985, L100.0100, L501.9520, L500.4050 ####[facility] [address] [place], [address] Albumin/Globulin [Mass ratio] 1.1 {ratio} Normal 0.9-2.4 [facility] Comment on above: Performed By: #### L 506.0400, L506.1000, L501.9985, L100.0100, L501.9520, L500.4050 ####[facility] [address] [place], [address] ALK P 63 U/L Normal 45-117 [facility] Comment on above: Performed By: #### L 506.0400, L506.1000, L501.9985, L100.0100, L501.9520, L500.4050 ####[facility] [address] [place], [address] ALT [Catalytic activity/Vol] 84 U/L High 13-56 [facility] Comment on above: Performed By: #### L 506.0400, L506.1000, L501.9985, L100.0100, L501.9520, L500.4050 ####[facility] [address] [place], [address] AST [Catalytic activity/Vol] 38 U/L High 15-37 [facility] Comment on above: Performed By: #### L 506.0400, L506.1000, L501.9985, L100.0100, L501.9520, L500.4050 ####[facility] [address] [place], [address] Bilirubin [Mass/Vol] 0.30 mg/dL Normal 0.20-1.00 [facility] Comment on above: Result Comment: For patients on eltrombopag therapy, use of Dimension [place] TBIL is not recommended. Performed By: #### L 506.0400, L506.1000, L501.9985, L100.0100, L501.9520, L500.4050 ####[facility] [address] [place], [address] BUN/CRE 16.6 RATIO Normal 10-20 [facility] Comment on above: Performed By: #### L 506.0400, L506.1000, L501.9985, L100.0100, L501.9520, L500.4050 ####[facility] [address] [place], [address] CA,Total 9.8 mg/dL Normal 8.5-10.1 [facility] Comment on above: Performed By: #### L 506.0400, L506.1000, L501.9985, L100.0100, L501.9520, L500.4050 ####[facility] [address] [place], [address] Chloride [Moles/Vol] 103 mmol/L Normal 98-107 [facility] Comment on above: Performed By: #### L 506.0400, L506.1000, L501.9985, L100.0100, L501.9520, L500.4050 ####[facility] [address] [place], [address] CO2 [Moles/Vol] 25.0 mmol/L Normal 21.0-32.0 [facility] Comment on above: Performed By: #### L 506.0400, L506.1000, L501.9985, L100.0100, L501.9520, L500.4050 ####[facility] [address] [place], [address] Creatinine [Mass/Vol] 0.66 mg/dL Normal 0.55-1.02 [facility] Comment on above: Result Comment: The validity of the calculated GFR GFRAA in patients over 70 years has not been determined. Clinical correlation is essential. Performed By: #### L 506.0400, L506.1000, L501.9985, L100.0100, L501.9520, L500.4050 ####[facility] [address] [place], [address] EST GFR - AA 135 mL/min Normal >60 [facility] Comment on above: Result Comment: Afri can [place] GFR Calc Performed By: #### L 506.0400, L506.1000, L501.9985, L100.0100, L501.9520, L500.4050 ####[facility] [address] [place], [address] GAP 7 Normal 5-15 [facility] Comment on above: Performed By: #### L 506.0400, L506.1000, L501.9985, L100.0100, L501.9520, L500.4050 ####[facility] [address] [place], [address] GFR/1.73 sq M.predicted among non-blacks MDRD (S/P/Bld) [Vol rate/Area] 111 mL/min/{1.73_m2} Normal >60 [facility] Comment on above: Result Comment: Non- GFR Calc Performed By: #### L 506.0400, L506.1000, L501.9985, L100.0100, L501.9520, L500.4050 ####[facility] [address] [place], [address] Globulin (S) [Mass/Vol] 4.0 g/dL Normal 2.2-4.2 [facility] Comment on above: Performed By: #### L 506.0400, L506.1000, L501.9985, L100.0100, L501.9520, L500.4050 ####[facility] [address] [place], [address] Glucose [Mass/Vol] 94 mg/dL Normal 74-106 [facility] Comment on above: Performed By: #### L 506.0400, L506.1000, L501.9985, L100.0100, L501.9520, L500.4050 ####[facility] [address] [place], [address] Potassium [Moles/Vol] 4.1 mmol/L Normal 3.5-5.1 [facility] Comment on above: Performed By: #### L 506.0400, L506.1000, L501.9985, L100.0100, L501.9520, L500.4050 ####[facility] [address] [place], [address] Sodium [Moles/Vol] 135 mmol/L Low 136-145 [facility] Comment on above: Performed By: #### L 506.0400, L506.1000, L501.9985, L100.0100, L501.9520, L500.4050 ####[facility] [address] [place], [address] T PROT 8.3 g/dL High 6.4-8.2 [facility] Comment on above: Performed By: #### L 506.0400, L506.1000, L501.9985, L100.0100, L501.9520, L500.4050 ####[facility] [address] [place], [address] Urea nitrogen [Mass/Vol] 11 mg/dL Normal 7-18 [facility] Comment on above: Performed By: #### L 506.0400, L506.1000, L501.9985, L100.0100, L501.9520, L500.4050 ####[facility] [address] [place], [place], [address] Hemoglobin A1con 05-04-2024 HbA1c (Bld) [Mass fraction] 5.3 % Normal 3.8-5.6 [facility] Comment on above: Result Comment: Norm al < 5.7 % Prediabetic 5.7 - 6.4 % Diabetic >or= 6.5 % Please note range changes. Performed By: #### L 506.0400, L506.1000, L501.9985, L100.0100, L501.9520, L500.4050 ####[facility] [address] [place], [address] Research Aide Office Visit Reporton 05-04-2024 Research Aide Office Visit Report [facility] [address], [address] [place] [address] OFFICE VISIT Date of Service: 05/04/24 MR#: [id number] Acct: [id number] Name: MARIXA AMOS Rep #: [id number] : 1995 Provider: DERRICK Hyman Age/Sex: 28/F Location: [facility] [place] Status: Signed Intake Vital Signs 12/09/23 13:23 05/04/24 10:40 05/04/24 10:42 Height 5 ft 3 in 5 ft 3 in 5 ft 3 in Weight: 186 lb BMI 32.9 BP 123/77 H Pulse 61 Intake Visit Reasons: Weight mgmt Chief Complaint: weight management Is patient in pain?: No Allergies No Known Allergies Allergy (Verified 05/04/24 10:42) Medications ???Medication ???Instructions ???Recorded ???Confirmed ???Type prenat.vits,mario,min-iron -folic 1 tab PO DAILY 10/22/21 05/04/24 History hyoscyamine sulfate 0.125 mg 0.125 mg PO BID-QID PRN abdominal 03/05/22 05/04/24 Rx sublingual tablet discomfort #100 tabs omeprazole 20 mg capsule,delayed 20 mg PO BID 90 days #180 caps 08/03/23 05/04/24 Rx release ustekinumab 90 mg/mL subcutaneous 90 mg subcut Q8W #1 mL 08/05/23 05/04/24 Rx syringe (Stelara) budesonide 3 mg 3 mg PO BID #119 ea 12/15/23 05/04/24 Rx capsule,delayed,extended release budesonide 3 mg 3 mg PO DAILY #90 ea 01/06/24 05/04/24 Rx capsule,delayed,extended release Last Menstrual Period: 04/29/24 [facility] PFS Medical History Endometriosis Low iron Anemia Latent tuberculosis Ulcerative colitis Surgical History History of esophagogastroduodenosco py (EGD) History of laparoscopy History of colonoscopy Family History Grandmother Diabetes Grandfather Diabetes Social History Smoking Status: Never smoker alcohol intake: never substance use type: does not use caffeine: Yes what type of physical activity do you participate in: walking and weight training frequency: 5-6 times per week seatbelt use: always do you feel safe at home: Yes additional social history: -Romel History 1 Elective abortions Hx Para 0 Spontaneous abortions 1 Hx # Term Pregnancies Ectopic pregnancies Hx # Pregnancies Multiple births # of living children HPI Weight mgmt Details: MARIXA AMOS is a 28 year old Female presenting for a weight management consultation. She is here to reduce her weight in order to pursue . She is also dealing PCOS and endometriosis. She reports she was recently placed on budesonide from GI; this will be weaned off next week. She reports her just left for work for 6 months and during that time she would like to improve her weight but also overall health while he is away in hopes of attempting when he returns. Patient would also like to reduce her weight and overall incorporate a healthy lifestyle to prevent future illnesses and diseases. Her goal is to get her weight to around 140 pounds. Female Reproductive History Last Menstrual Period: 04/29/24 Cycle Length: 21-35 Bleeding Duration: 4 Questions: metorrhagia: No, sexually active: Yes, dyspareunia: No and PCB: No ROS Const Denies body aches, Denies chills, Denies fatigue, Denies fever(s), Denies headache(s), Denies malaise, Denies stops breathing during sleep and Denies weakness Eyes Denies change in vision and Denies diplopia ENT Denies headache(s) Card Denies chest pain, Denies dyspnea, Denies irregular heart rhythm, Denies leg edema and Denies palpitations Resp Denies cough and Denies dyspnea GI Denies constipation Musc Denies numbness Skin/Breast Denies rash Neuro No headache(s), No memory loss, No numbness and No weakness Psych Denies anxiety, Denies depression, Denies homicidal ideation, Denies memory loss and Denies suicidal ideation Endo Denies fatigue and Denies palpitations Exam Const General: cooperative, healthy appearing, comfortable, no acute distress and well groomed Orientation: alert, awake and oriented x3 Neck Neck: normal visual inspection and no lymphadenopathy Thyroid: thyroid normal Resp Effort Inspection: normal respiratory effort, able to speak in complete sentences and symmetric chest movement Auscultation: clear to auscultation bilaterally Cardio Rate: regular rate Rhythm: regular rhythm Heart Sounds: S1 normal and S2 normal GI Palpation: soft and no hepatosplenomegaly Skin General: no rashes or lesions noted Neuro General: patient alert, patient awake and patient oriented x3 Gait: normal gait Psych Appearance: grossly normal Mental Status: mental status grossly normal Affect: normal affect Speech and Movement: speech and move (more content not included)... Normal [facility] T4 Free Directon 05-04-2024 T4 FREE DIRECT 0.90 ng/dL Normal 0.76-1.46 [facility] Comment on above: Performed By: #### L 506.0400, L506.1000, L501.9985, L100.0100, L501.9520, L500.4050 ####[facility] [address] [place], [place], [id number] Thyroid Stim Hormone (TSH)on 05-04-2024 TSH 1.850 uIU/mL Normal 0.358-3.740 [facility] Comment on above: Performed By: #### L 506.0400, L506.1000, L501.9985, L100.0100, L501.9520, L500.4050 ####[facility] [address] [place], [place], [id number] Vitamin D,25 Hydroxyon 05-04 Vitamin D 25-OH 24.7 ng/mL Normal [facility] Comment on above: Result Comment: Kiarra min D 25(OH) Status Range Deficiency <20 ng/mL (50nmol/L) Insufficiency 20 - 30 ng/mL (50 - 75 nmol/L) Sufficiency 30 - 100 ng/mL (75 - 250 nmol/L) Toxicity >100 ng/mL (>250 nmol/L) Performed By: #### L 506.0400, L506.1000, L501.9985, L100.0100, L501.9520, L500.4050 #### [facility] [address] [place], [address] Stool lactoferrin detection by immunoassayOrdered By: Domo Weaver on 12-11-2023 Lactoferrin IA Ql (Stl) [facility] Cervical or vagninal specime n microscopic examination by cytology stain (reported asOrdered By: Iesha Lo on 12-09-2023 Cytology report Cyto stain Doc (Cvx/Vag) Comment . [facility] Comment on above: The Pap smear is a s creening test designed to aid in thedetection of premalignant and malignant conditions of theuterine cervix. It is not a diagnostic procedure andshould not be used as the sole means of detecting cervicalcancer. Both false-positive and false-negative reports dooccur. Laboratory - CytologyOrdered By: Iesha Lo on 12-09-2023 Field Handyman Cyto stain Nom (Cvx/Vag) [ID] Comment . [facility] Comment on above: Main [place] totechnologist (ASCP) Laboratory - Miscellaneous t estsOrdered By: Iesha Lo on 12-09-2023 Service comment (Unsp spec) [Interp] . . [facility] No Panel InformationOrdered By: Iesha Lo on 12-09-2023 Human Papillomavirus Screen Comment . [facility] Comment on above: The HPV DNA reflex c jewel were not met with this specimenresult therefore, no HPV testing was performed.Performed at: [facility] [address] [place], [place] [id number] Director: Phi Yoder MD, Phone: [phone] at: - Lab[address] [id number] Director: Rose Haney MD, Phone: [phone] Thin prep Papanicolaou smear with manual screeningOrdered By: Iesha Lo on 12-09-2023 Thin prep Papanicolaou smear with manual screening Comment . [facility] Comment on above: NEGATIVE FOR INTRAEP ITHELIAL LESION OR MALIGNANCY. This liquid based Th inPrep(R) pap test was screened withthe use of an image guided system. PROGon 11-25-2023 Progesterone Level 6.0 ng/mL Normal [facility] ([place]) Comment on above: Result Comment: Adul t Female Progesterone Reference Ranges: Follicular phase <0.21 - 1.40 ng/mL Luteal phase 3.34 - 25.56 ng/mL Mid-Luteal phase 4.44 - 28.03 ng/mL Postmenopausal <0.21 - 0.73 ng/ml Female: First trimester 11.22 - 90.00 ng/ml Second trimester 25.55 - 89.40 ng/ml Third trimester 48.40 - 422.50 ng/ml Performed By: #### P ROMEL #### [place] [address] Absolute lymphocyte countOrd ered By: Domo Weaver on 11-06-2023 Lymphocytes Auto (Unsp spec) [#/Vol] 1.91 10*3/uL 0.83-4.51 [facility] Automated lymphocyte count a s percentage of total leukocytesOrdered By: Domo Weaver on 11-06-2023 Lymphocytes/100 WBC Auto (Unsp spec) 37.4 % 19-41 [facility] Basophil percentageOrdered B y: Domo Weaver on 11-06-2023 Basophils/100 WBC (Bld) 0.8 % 0-1 [facility] Eosinophils/100 WBC (Bld) 2.2 % 0-5 [facility] Hemoglobin (Bld) [Mass/Vol] 11.6 g/dL 12.0-15.0 [facility] Monocytes/100 WBC (Bld) 8.2 % 0-10 [facility] Neutrophils (Bld) [#/Vol] 2.6 10*3/uL 2.0-7.7 [facility] Neutrophils/100 WBC (Bld) 51.2 % 47-70 [facility] WBC (Bld) [#/Vol] 5.1 10*3/uL 4.4-11.0 [facility] Determination of erythrocyte mean corpuscular volume (MCV)Ordered By: Domo Weaver on 11-06-2023 MCV (RBC) [Entitic vol] 91.6 fL 81-99 [facility] Erythrocyte distribution wid th ratioOrdered By: Domoyamileth Weaver on 11-06-2023 Erythrocyte distribution width (RBC) [Ratio] 12.5 % 11.6-14.6 [facility] Erythrocyte distribution wid th standard deviationOrdered By: Domo Weaver on 11-06-2023 Erythrocyte distribution width (RBC) [Entitic vol] 41.9 fL 35.1-43.9 [facility] Hematocrit Auto (Bld) [Volum e fraction]Ordered By: Domo Weaver on 11-06-2023 Hematocrit (Bld) [Volume fraction] 34.8 % 37-47 [facility] Immature granulocytes/100 WB C Auto (Bld)Ordered By: Domo Weaver on 11-06-2023 Immature granulocytes/100 WBC (Bld) 0.200 % 0.0-0.9 [facility] Comment on above: IG% - Immature Granu locytes (promyelocytes, myelocytes and metamyelocytes) > 1% indicates that a LEFT SHIFT is Present. Laboratory - Hematology and Cell countsOrdered By: Domo Weaver on 11-06-2023 MCH (RBC) [Entitic mass] 30.5 pg 27.0-32.0 [facility] MCHC (RBC) [Mass/Vol] 33.3 g/dL 32-36 [facility] Nucleated RBC/100 WBC (Bld) [Ratio] 0 % 0-5 [facility] Platelet mean volume (Bld) [Entitic vol] 10.5 fL 6.2-12.0 [facility] Platelets (Bld) [#/Vol] 291 10*3/uL 150-450 [facility] No Panel InformationOrdered By: Domo Weaver on 11-06-2023 Miscellaneous Test See comment [facility] Comment on above: Scanned image report available in EMR RBC Auto (Bld) [#/Vol]Ordere d By: Domo Weaver on 11-06-2023 RBC (Bld) [#/Vol] 3.80 10*6/uL 4.2-5.4 [facility] Laboratory - Chemistry and C hemistry - challengeOrdered By: Patrice Macias on 10-01-2023 HCG ( test) Ql (U) Negative [facility] Comment on above: Very dilute urine sp ecimens, as indicated by a low specificgravity, may not contain liability claims representative levels of hCG. If is still suspected, a first morning urinespecimen should be collected 48 hours later and tested. LABORATORYOrdered By: Shira Juarez on 08-27-2023 HCG ( test) Ql Negative (08/27/23 10:05 AM) Normal AO Manual Urine SS test (u) int Not detected Invalid Interpretation Code AO Manual Urine SS PREGUon 08-27-2023 HCG ( test) Ql (U) Negative Normal [facility] ([place]) Comment on above: Performed By: #### P REGU #### [place] [address] test (u) int Not detected Invalid Interpretation Code [facility] ([place]) Comment on above: Performed By: #### P REGU #### [place] [address] No Panel InformationOrdered By: Domo Weaver on 08-07-2023 Stool Calprotectin 275 ug/g 0-120 [facility] Comment on above: Concentration Interp retation Follow-Up< 5 - 50 ug/g Normal None>50 -120 ug/g Borderline Re-evaluate in 4-6 weeks >120 ug/g Abnormal Repeat as clinically indicatedPerformed at: [facility] [address] [id number] Director: Jose Claros MD, Phone: [phone] Stool lactoferrin detection by immunoassayOrdered By: Domo Weaver on 08-07-2023 Lactoferrin IA Ql (Stl) [facility] CIRANon 08-03-2023 Dil Dewey Viper Venom 35.1 seconds Normal 30.0-42.0 [facility] ([place]) Comment on above: Performed By: #### 5 [id number], PROL #### [facility] [address] [place] [address] [place] Interpretation See Below Normal [facility] ([place]) Comment on above: Result Comment: No e vidence of lupus anticoagulant. Performed By: #### 5 25374, PROL #### [facility] [address] [place] [address] Platelet neutraliz. Negative Normal [facility] ([place]) Comment on above: Performed By: #### 5 95699, PROL #### [facility] [address] [place] [address] Erythrocyte sedimentation ra teOrdered By: Domo Weaver on 08-03-2023 ESR (Bld) [Velocity] 6 mm/h 0-30 [facility] No Panel InformationOrdered By: Domo Weaver on 08-03-2023 Miscellaneous Test See comment [facility] Comment on above: Scanned image report available in EMR Qualitative QuantiFERON-TB g old in tube testOrdered By: Domo Weaver on 08-03-2023 M. tuberculosis tuberculin stim IFN-g Ql (Bld) 0.16 IU/mL . [facility] Serum or plasma C reactive p rotein measurement (mass/volume)Ordered By: Domo Weaver on 08-03-2023 CRP [Mass/Vol] mg/L 0.0-3.0 [facility] Comment on above: C-Reactive Protein ( CRP) provides useful information for thediagnosis, therapy and monitoring of inflammatory processesand associated diseases. For the evaluation of Relative Riskfor Cardiovascular Disease, a High Sensitivity CRP (HSCRP)should be ordered. Thin prep Papanicolaou smear with manual screeningOrdered By: Domo Weaver on 08-03-2023 Thin prep Papanicolaou smear with manual screening Comment . [facility] Comment on above: QuantiFERON-TB Gold Plus is a qualitative indirect test forM tuberculosis infection (including disease) and isintended for use in conjunction with risk assessment,radiography, and other medical and diagnostic evaluations.The QuantiFERON-TB Gold Plus result is determined bysubtracting the Nil value from either TB antigen (Ag)value. The Mitogen tube serves as a control for the test. Thin prep Papanicolaou smear with manual screening 0.08 IU/mL . [facility] Thin prep Papanicolaou smear with manual screening 0 IU/mL . [facility] Thin prep Papanicolaou smear with manual screening > 10.00 IU/mL . [facility] Thin prep Papanicolaou smear with manual screening Negative Negative [facility] Comment on above: No response to M tub erculosis antigens detected.Infection with M tuberculosis is unlikely, but high riskindividuals should be considered for additional testing(ATS/IDSA/CDC Clinical Practice Guidelines, 2017). Thereference range is an Antigen minus Nil result of <0.35IU/mL.The specimen received for QuantiFERON testing was incubatedby the ordering institution. Specific procedures outlinedin our Directory of Services and in the package insert forthe QuantiFERON Gold (In Tube) test must be followed toenable for proper stimulation of cells for the productionof interferon gamma. Chemiluminescence immunoassaymethodologyPerformed at: [facility] [address] [id number] Director: Almas Saavedra PhD, Phone: [phone] [facility] 08-02-2023 [place] [facility]H 3.40 ng/mL Normal [facility] ([place]) Comment on above: Result Comment: For assays employing antibodies, the possibility exists for interference by heterophile antibodies in the samples.1 1.Tony Marion Interferences in Immunoassays - still a threat. Clin. Chem. 2000; 46: 4375-2066. This test was developed and its performance characteristics determined by [employer]. It has not been cleared or approved by the Food and Drug Administration. Reference Range: Females 26 - 30y: 1.03 - 11.10 Median 4.20 AMH concentrations of >= 1.06 ng/mL is correlated with a better response to ovarian stimulation, produced more retrievable oocytes and higher odds of live according to Gleicher et al. Fertility and Sterility. 2010: 94:4664-8552. The current AMH test method correlates with [...] exclude an AMH-secreting ovarian tumor. Performed At: [facility] [address] [place] [id number] Felisa Umaña MD Ph:[phone] Performed By: #### 5 [id number], PROL #### [place] [address] PROLon 07-30-2023 Prolactin 16.5 ng/mL Normal 2.0-30.0 [facility] ([place]) Comment on above: Performed By: #### 5 66161, PROL #### [place] [address] APTTon 07-29-2023 aPTT Coag (Bld) [Time] 33.5 s Normal 25.0-35.0 [facility] ([place]) Comment on above: Result Comment: For Heparin anticoagulation therapy, the recommended therapeutic range is: 54-77 seconds (APTT Correlation with Anti-Xa therapeutic range of 0.3-0.7 units/ml). PLEASE REFERENCE THE PHARMACY PROTOCOL FOR DOSING. Performed By: #### 5 81647, PROL #### [place] [address] Heparin dose (APTT) None Normal [facility] ([place]) Comment on above: Performed By: #### 5 35974, PROL #### [address] [address] .Auto Diffon 04-21-2023 Basophil, Absolute 0.0 10 3/mcL Normal 0.0-0.3 [facility] ([place]) Comment on above: Performed By: #### C BC, TSH, CMP, ANEU, ADIFF, LIPID, GFR #### [place] [address] Basophils/100 WBC (Bld) 0.5 % Normal 0.0-2.5 [facility] ([place]) Comment on above: Performed By: #### C BC, TSH, CMP, ANEU, ADIFF, LIPID, GFR #### [place] [address] Eosinophil, Absolute 0.1 10 3/mcL Normal 0.0-0.7 [facility] ([place]) Comment on above: Performed By: #### C BC, TSH, CMP, ANEU, ADIFF, LIPID, GFR #### [address] [address] Eosinophils/100 WBC (Bld) 1.8 % Normal 0.0-6.0 [facility] ([place]) Comment on above: Performed By: #### C BC, TSH, CMP, ANEU, ADIFF, LIPID, GFR #### [address] [address] Lymphocyte, Absolute 1.8 10 3/mcL Normal 0.9-4.3 [facility] ([place]) Comment on above: Performed By: #### C BC, TSH, CMP, ANEU, ADIFF, LIPID, GFR #### [address] [address] Lymphocytes/100 WBC (Bld) 28.6 % Normal 20.0-40.0 [facility] ([place]) Comment on above: Performed By: #### C BC, TSH, CMP, ANEU, ADIFF, LIPID, GFR #### [address] [address] Monocyte, Absolute 0.5 10 3/mcL Normal 0.1-1.4 [facility] ([place]) Comment on above: Performed By: #### C BC, TSH, CMP, ANEU, ADIFF, LIPID, GFR #### [address] [address] Monocytes/100 WBC (Bld) 7.4 % Normal 2.0-13.0 [facility] ([place]) Comment on above: Performed By: #### C BC, TSH, CMP, ANEU, ADIFF, LIPID, GFR #### [address] [address] Neutrophils/100 WBC (Bld) 61.7 % Normal 50.0-75.0 [facility] ([place]) Comment on above: Performed By: #### C BC, TSH, CMP, ANEU, ADIFF, LIPID, GFR #### [address] [address] .GFRon 04-21-2023 GFR >60 Normal [facility] ([place]) Comment on above: Result Comment: GFR Population [...] mL/min/1.73 square meters Performed By: #### 5 50996, PROL #### [address] [address] GFR Non- >60 Normal [facility] ([place]) Comment on above: Result Comment: GFR Population [...] mL/min/1.73 square meters Performed By: #### 5 33564, PROL #### [address] [address] .NEUABSon 04-21-2023 Neutrophil, Absolute 3.8 10 3/mcL Normal 2.3-8.1 [facility] ([place]) Comment on above: Performed By: #### C BC, TSH, CMP, ANEU, ADIFF, LIPID, GFR #### [address] [address] CBCon 04-21-2023 Erythrocyte distribution width (RBC) [Ratio] 12.5 % Normal 11.5-15.5 [facility] ([place]) Comment on above: Performed By: #### C BC, TSH, CMP, ANEU, ADIFF, LIPID, GFR #### [place] [address] Hematocrit (Bld) [Volume fraction] 36.4 % Normal 34.0-46.0 [facility] ([place]) Comment on above: Performed By: #### C BC, TSH, CMP, ANEU, ADIFF, LIPID, GFR #### [place] [id number] Hgb 12.1 G/dL Normal 12.0-16.0 [facility] ([place]) Comment on above: Performed By: #### C BC, TSH, CMP, ANEU, ADIFF, LIPID, GFR #### [place] [address] MCH (RBC) [Entitic mass] 31.0 pg Normal 27.0-33.0 [facility] ([place]) Comment on above: Performed By: #### C BC, TSH, CMP, ANEU, ADIFF, LIPID, GFR #### [place] [id number] MCHC 33.4 G/dL Normal 32.0-36.0 [facility] ([place]) Comment on above: Performed By: #### C BC, TSH, CMP, ANEU, ADIFF, LIPID, GFR #### [place] [id number] MCV (RBC) [Entitic vol] 92.8 fL Normal 80.0-99.0 [facility] ([place]) Comment on above: Performed By: #### C BC, TSH, CMP, ANEU, ADIFF, LIPID, GFR #### [place] [id number] Platelet 298 10 3/mcL Normal 150-450 [facility] ([place]) Comment on above: Performed By: #### C BC, TSH, CMP, ANEU, ADIFF, LIPID, GFR #### [place] [address] Platelet mean volume (Bld) [Entitic vol] 8.8 fL Normal 6.6-10.5 [facility] ([place]) Comment on above: Performed By: #### C BC, TSH, CMP, ANEU, ADIFF, LIPID, GFR #### [address] [address] RBC 3.92 10 6/mcL Low 4.10-5.30 [facility] ([place]) Comment on above: Performed By: #### C BC, TSH, CMP, ANEU, ADIFF, LIPID, GFR #### [place] [address] WBC 6.2 10 3/mcL Normal 4.5-10.8 [facility] ([place]) Comment on above: Performed By: #### C BC, TSH, CMP, ANEU, ADIFF, LIPID, GFR #### [place] [address] CMPon 04-21-2023 Albumin Level 4.3 G/dL Normal 3.2-4.8 [facility] ([place]) Comment on above: Performed By: #### C BC, TSH, CMP, ANEU, ADIFF, LIPID, GFR #### [place] [address] Albumin/Globulin [Mass ratio] 1.3 {ratio} Normal 0.9-1.6 [facility] ([place]) Comment on above: Performed By: #### C BC, TSH, CMP, ANEU, ADIFF, LIPID, GFR #### [place] [id number] ALP [Catalytic activity/Vol] 55 U/L Normal 38-126 [facility] ([place]) Comment on above: Performed By: #### C BC, TSH, CMP, ANEU, ADIFF, LIPID, GFR #### [place] [id number] ALT [Catalytic activity/Vol] 54 U/L High 10-49 [facility] ([place]) Comment on above: Performed By: #### C BC, TSH, CMP, ANEU, ADIFF, LIPID, GFR #### [place] [id number] AST [Catalytic activity/Vol] 33 U/L Normal 8-34 [facility] ([place]) Comment on above: Performed By: #### C BC, TSH, CMP, ANEU, ADIFF, LIPID, GFR #### [address] [address] Bili Total 0.40 mg/dL Normal 0.20-1.20 [facility] ([place]) Comment on above: Result Comment: Use of this assay is not recommended for patients undergoing treatment with eltrombopag due to the potential for falsely elevated results. Performed By: #### C BC, TSH, CMP, ANEU, ADIFF, LIPID, GFR #### [address] [address] BUN/Creatinine Ratio 21.4 ratio Normal 10.0-22.0 [facility] ([place]) Comment on above: Performed By: #### C BC, TSH, CMP, ANEU, ADIFF, LIPID, GFR #### [address] [address] Calcium [Mass/Vol] 9.3 mg/dL Normal 8.7-10.4 [facility] ([place]) Comment on above: Performed By: #### C BC, TSH, CMP, ANEU, ADIFF, LIPID, GFR #### [address] [address] Chloride [Moles/Vol] 105 mmol/L Normal 98-110 [facility] ([place]) Comment on above: Performed By: #### C BC, TSH, CMP, ANEU, ADIFF, LIPID, GFR #### [address] [address] CO2 [Moles/Vol] 28 mmol/L Normal 22-32 [facility] ([place]) Comment on above: Performed By: #### C BC, TSH, CMP, ANEU, ADIFF, LIPID, GFR #### [address] [address] Creatinine [Mass/Vol] 0.56 mg/dL Normal 0.50-1.20 [facility] ([place]) Comment on above: Performed By: #### C BC, TSH, CMP, ANEU, ADIFF, LIPID, GFR #### [address] [address] Electrolyte Balance 6.0 mEq/L Normal 4.0-15.0 [facility] ([place]) Comment on above: Performed By: #### C BC, TSH, CMP, ANEU, ADIFF, LIPID, GFR #### [address] [address] Globulin 3.2 G/dL Normal 1.5-3.8 [facility] ([place]) Comment on above: Performed By: #### C BC, TSH, CMP, ANEU, ADIFF, LIPID, GFR #### [address] [address] Glucose [Mass/Vol] 99 mg/dL Normal 70-110 [facility] ([place]) Comment on above: Performed By: #### C BC, TSH, CMP, ANEU, ADIFF, LIPID, GFR #### [address] [address] Potassium [Moles/Vol] 4.6 mmol/L Normal 3.5-5.0 [facility] ([place]) Comment on above: Result Comment: Spec imen slightly hemolyzed. Performed By: #### C BC, TSH, CMP, ANEU, ADIFF, LIPID, GFR #### [address] [address] Sodium [Moles/Vol] 139 mmol/L Normal 136-145 [facility] ([place]) Comment on above: Performed By: #### C BC, TSH, CMP, ANEU, ADIFF, LIPID, GFR #### [address] [address] Total Protein 7.5 G/dL Normal 5.7-8.2 [facility] ([place]) Comment on above: Result Comment: No te - New Reference Range in effect 20 Performed By: #### C BC, TSH, CMP, ANEU, ADIFF, LIPID, GFR #### [address] [address] Urea nitrogen [Mass/Vol] 12.0 mg/dL Normal 8.0-22.0 [facility] ([place]) Comment on above: Performed By: #### C BC, TSH, CMP, ANEU, ADIFF, LIPID, GFR #### [address] [address] LIPIDon 04-21-2023 Cholesterol [Mass/Vol] 183 mg/dL Normal 50-199 [facility] ([place]) Comment on above: Result Comment: Chol esterol Reference Interval: Less than 200 Desirable 200-239 Borderline high risk 240 and above High risk Performed By: #### 5 47224, PROL #### [address] [address] Cholesterol in HDL [Mass/Vol] 53 mg/dL Normal 40-59 [facility] ([place]) Comment on above: Performed By: #### 5 21500, PROL #### [place] [address] Cholesterol in LDL [Mass/Vol] 104 mg/dL Normal 0-129 [facility] ([place]) Comment on above: Performed By: #### 5 47628, PROL #### [address] [address] Triglyceride [Mass/Vol] 131 mg/dL Normal 3-149 [facility] ([place]) Comment on above: Performed By: #### 5 90710, PROL #### [place] [id number] TSHon 04-21-2023 TSH 0.952 mIU/mL Normal 0.550-4.780 [facility] ([place]) Comment on above: Result Comment: No te - New Reference Range in effect 20 Performed By: #### 5 11670, PROL #### [address] [address] 36on 04-09-2023 36 Name of caller: HEAT HER Relation to patient: patient Contact phone number: [phone] Appointment scheduled with: LANDY BLAIR Appointment date & time: 05/04/23 @ 7:50 AM Reason for visit (are you having any symptoms) : Low blood pressure, unexpected weight gain Transportation issues/ concerns: NO Special accommodations? ( wheel chair, etc) : NO Current medications: STELARA Any refills need: NO Any chronic conditions the provider should be aware of: CHRON'S, 14 WEEKS Normal [facility] 36 In order to comply w ith the No Surprises Act, [facility] is providing you with the following attachments. Any Good Cathy Estimate that may be provided are based on the services you are scheduled to receive. During your visit, there may be additional services required in order for the provider to complete your plan of care. DECLINED Normal [facility] 36on 04-05-2023 36 PATIENT SUBMITTED ON LINE APPOINTMENT REQUEST FOR A PCP APPOINTMENT. SPOKE TO PATIENT AND GOT SOME INFORMATION BUT SHE HAD TO GET OFF THE LINE AND STATES SHE WILL C/B. OK TO SCHEDULE WITH ANY PROVIDER WHEN PATIENT CALLS BACK. FirstName : Marixa LastName : BRAGA Pronouns : PronounsOther : Email : [email or web address] Phone : [phone] Birthdate : 1995 12:00:00 AM BestTimeToCallBack : Afternoon AppointmentDate : Kirk PhysicianRequested : Symptoms : Weight gain, low blood pressure OptIn : False Normal [facility] Absolute lymphocyte counton 03-05-2022 Lymphocytes Auto (Unsp spec) [#/Vol] 2.37 10*3/uL 0.83-4.51 [facility] Work Phone: Albumin Elph [Mass/Vol]on Albumin [Mass/Vol] 4.1 g/dL 2.9-4.4 [facility] Work Phone: Atypical perinuclear antineu trophil cytoplasmic antibodies measurementon 03-05-2022 Neutrophil cytoplasmic Ab.perinuclear.atypica l IF (S) [Titer] 1:160 titer Neg:<1:20 [facility] Work Phone: Comment on above: The atypical pANCA p attern has been observed in asignificant percentage of patients with ulcerative colitis,primary sclerosing cholangitis and autoimmune hepatitis. Basophil percentageon 2021 Basophil percentage < 0.2 AI 0.0-0.9 [facility] Work Phone: Basophils/100 WBC (Bld) 0.6 % 0-1 [facility] Work Phone: Bilirubin [Mass/Vol] 0.30 mg/dL 0.20-1.00 [facility] Work Phone: Comment on above: For patients on eltr ombopag therapy, use of Dimension [place] TBIL is not recommended. Chloride [Moles/Vol] 105 mmol/L 98-107 [facility] Work Phone: Eosinophils/100 WBC (Bld) 1.4 % 0-5 [facility] Work Phone: Glucose [Mass/Vol] 90 mg/dL 74-106 [facility] Work Phone: Neutrophils (Bld) [#/Vol] 3.5 10*3/uL 2.0-7.7 [facility] Work Phone: Neutrophils/100 WBC (Bld) 53.6 % 47-70 [facility] Work Phone: Potassium [Moles/Vol] 3.8 mmol/L 3.5-5.1 [facility] Work Phone: Protein [Mass/Vol] 7.5 g/dL 6.4-8.2 [facility] Work Phone: Sodium [Moles/Vol] 136 mmol/L 136-145 [facility] Work Phone: WBC (Bld) [#/Vol] 6.4 10*3/uL 4.4-11.0 [facility] Work Phone: Blood erythrocytes count (nu mber/volume)on 03-05-2022 RBC (Bld) [#/Vol] 3.69 10*6/uL 4.2-5.4 [facility] Work Phone: Blood hemoglobin measurement (mass/volume)on 03-05-2022 Hemoglobin (Bld) [Mass/Vol] 11.2 g/dL 12.0-15.0 [facility] Work Phone: Blood lymphocytes/100 leukoc yteson 03-05-2022 Lymphocytes/100 WBC (Bld) 36.9 % 19-41 [facility] Work Phone: Blood monocytes/100 leukocyt eson 03-05-2022 Monocytes/100 WBC (Bld) 7.3 % 0-10 [facility] Work Phone: [phone] Blood platelet mean volumeon 03-05-2022 Platelet mean volume (Bld) [Entitic vol] 10.4 fL 6.2-12.0 [facility] Work Phone: Determination of erythrocyte mean corpuscular volume (MCV)on 03-05-2022 MCV (RBC) [Entitic vol] 92.1 fL 81-99 [facility] Work Phone: Erythrocyte sedimentation ra kushal 03-05-2022 ESR (Bld) [Velocity] 13 mm/h 0-30 [facility] Work Phone: [phone] Hematocrit Auto (Bld) [Volum e fraction]on 03-05-2022 Hematocrit (Bld) [Volume fraction] 34.0 % 37-47 [facility] Work Phone: Interpretation of serum or p lasma protein pattern by immunofixation (narrative resulton 03-05-2022 Protein Fractions Immunofixation Jesús [Interp] See comment [facility] Work Phone: Comment on above: Result: Not Observed Laboratory - Chemistry and C hemistry - challengeon 03-05-2022 ALP [Catalytic activity/Vol] 48 U/L 45-117 [facility] Work Phone: [phone] ALT [Catalytic activity/Vol] 39 U/L 13-56 [facility] Work Phone: [phone] CO2 [Moles/Vol] 25.0 mmol/L 21.0-32.0 [facility] Work Phone: Globulin (S) [Mass/Vol] 3.6 g/dL 2.2-4.2 [facility] Work Phone: [phone] Urea nitrogen/Creatinine [Mass ratio] 34.1 mg/mg 10-20 [facility] Work Phone: Laboratory - Hematology and Cell countson 03-05-2022 Erythrocyte distribution width (RBC) [Entitic vol] 41.1 fL 35.1-43.9 [facility] Work Phone: Erythrocyte distribution width (RBC) [Ratio] 12.0 % 11.6-14.6 [facility] Work Phone: [phone] Immature granulocytes/100 WBC (Bld) 0.200 % 0.0-0.9 [facility] Work Phone: [phone] Comment on above: IG% - Immature Granu locytes (promyelocytes, myelocytes and metamyelocytes) > 1% indicates that a LEFT SHIFT is Present. MCH (RBC) [Entitic mass] 30.4 pg 27.0-32.0 [facility] Work Phone: Nucleated RBC/100 WBC (Bld) [Ratio] 0 % 0-5 [facility] Work Phone: [phone] MCHC Auto (RBC) [Mass/Vol]on 03-05-2022 MCHC (RBC) [Mass/Vol] 32.9 g/dL 32-36 [facility] Work Phone: No Panel Informationon 03-05 Addendum Document Comment . [facility] Work Phone: Comment on above: Protein electrophore sis scan will follow via computer,mail, or apartment manager delivery. Centromere B Antibody <0.2 AI 0.0-0.9 [facility] Work Phone: [phone] Endomysial IgA Antibody Negative Negative [facility] Work Phone: [phone] Estimated GFR (MDRD) Amer 167 mL/min >60 [facility] Work Phone: Comment on above: GFR Calc Estimated GFR (MDRD) Non-Af Amer 138 mL/min >60 [facility] Work Phone: [phone] Comment on above: Non- GFR Calc Immunoglobulin E 42 IU/mL 6-495 [facility] Work Phone: [phone] TECHNICAL COORDINATOR Antibody <0.2 AI 0.0-0.9 [facility] Work Phone: Platelets bldon 03-05-2022 Platelets (Bld) [#/Vol] 258 10*3/uL 150-450 [facility] Work Phone: Serum DNA double strand anti body assay (units/volume)on 03-05-2022 DNA double strand Ab Qn (S) [IU]/mL 0-9 [facility] Work Phone: Comment on above: Negative <5 Equivoca l 5 - 9 Positive >9 Serum Areli-1 antibody assay (u nits/volume)on 03-05-2022 Areli-1 extractable nuclear Ab Qn (S) <0.2 AI 0.0-0.9 [facility] Work Phone: Serum Scl-70 extractable nuc lear antibody assay (units/volume)on 03-05-2022 SCL-70 extractable nuclear Ab Qn (S) <0.2 AI 0.0-0.9 [facility] Work Phone: Serum Ferrell extractable nucl ear antibody detectionon 03-05-2022 Ferrell extractable nuclear Ab Ql (S) <0.2 AI 0.0-0.9 [facility] Work Phone: Serum [id number]-[id number] measu rement by electrophoresison 03-05-2022 Alpha 1 globulin Elph [Mass/Vol] 0.2 g/dL 0.0-0.4 [facility] Work Phone: Alpha 1 globulin Elph [Mass/Vol] 0.7 g/dL 0.4-1.0 [facility] Work Phone: Serum classic neutrophil cyt oplasmic antibody assay (units/volume)on 03-05-2022 Neutrophil cytoplasmic Ab.classic Qn (S) <1:20 titer Neg:<1:20 [facility] Work Phone: Serum globulin measurement ( mass/volume)on 03-05-2022 Globulin (S) [Mass/Vol] 3.1 g/dL 2.2-3.9 [facility] Work Phone: Serum or plasma C reactive p rotein measurement (mass/volume)on 03-05-2022 CRP [Mass/Vol] mg/L 0.0-3.0 [facility] Work Phone: Comment on above: C-Reactive Protein ( CRP) provides useful information for thediagnosis, therapy and monitoring of inflammatory processesand associated diseases. For the evaluation of Relative Riskfor Cardiovascular Disease, a High Sensitivity CRP (HSCRP)should be ordered. Serum or plasma IgA measurem ent (mass/volume)on 03-05-2022 IgA [Mass/Vol] 263 mg/dL 87-352 [facility] Work Phone: Serum or plasma IgG measurem ent (mass/volume)on 03-05-2022 IgG [Mass/Vol] 1132 mg/dL [phone] [facility] Work Phone: Serum or plasma IgM measurem ent (mass/volume)on 03-05-2022 IgM [Mass/Vol] 109 mg/dL 26-217 [facility] Work Phone: Serum or plasma albumin arielle urement (mass/volume)on 03-05-2022 Albumin [Mass/Vol] 3.9 g/dL 3.2-5.0 [facility] Work Phone: Serum or plasma albumin/glob ulin mass ratioon 03-05-2022 Albumin/Globulin [Mass ratio] 1.1 {ratio} 0.9-2.4 [facility] Work Phone: Serum or plasma beta globuli n measurement by electrophoresis (mass/volume)on 03-05-2022 Beta globulin Elph [Mass/Vol] 1.1 g/dL 0.7-1.3 [facility] Work Phone: Serum or plasma calcium arielle urement (mass/volume)on 03-05-2022 Calcium [Mass/Vol] 8.8 mg/dL 8.5-10.1 [facility] Work Phone: Serum or plasma creatinine m easurement (mass/volume)on 03-05-2022 Creatinine [Mass/Vol] 0.56 mg/dL 0.55-1.02 [facility] Work Phone: Comment on above: The validity of the calculated GFR & GFRAA in patients over 70 years has not been determined. Clinical correlation is essential. Serum or plasma cytomegalovi mike (CMV) IgG antibody assay (units/volume)on 03-05-2022 CMV IgG Qn > 10.00 U/mL 0.00-0.59 [facility] Work Phone: Comment on above: Negative <0.60 Equiv ocal 0.60 - 0.69 Positive >0.69 Serum or plasma cytomegalovi mike (CMV) IgM antibody assay (units/volume)on 03-05-2022 CMV IgM Qn < 30.0 AU/mL 0.0-29.9 [facility] Work Phone: Comment on above: Negative <30.0 Equiv ocal 30.0 - 34.9 Positive >34.9A positive result is generally indicative of acuteinfection, reactivation or persistent IgM production.Performed at: [facility] [employer] [id number] Director: Almas Saavedra PhD, Phone: [phone] at: [facility] [address] [id number] Director: Jose Claros MD, Phone: [phone] Serum or plasma gamma globul in measurement by electrophoresis (mass/volume)on 03-05-2022 Gamma globulin Elph [Mass/Vol] 1.1 g/dL 0.4-1.8 [facility] Work Phone: Serum or plasma immunoelectr ophoresis interpretation (nominal result)on 03-05-2022 Interpretation IEP [Interp] Comment . [facility] Work Phone: Comment on above: No monoclonality det ected. Serum or plasma urea nitroge n measurement (mass/volume)on 03-05-2022 Urea nitrogen [Mass/Vol] 19 mg/dL 7-18 [facility] Work Phone: Serum perinuclear neutrophil cytoplasmic antibody titer by immunofluorescenceon 03-05-2022 Neutrophil cytoplasmic Ab.perinuclear IF (S) [Titer] <1:20 titer Neg:<1:20 [facility] Work Phone: Comment on above: The presence of posi tive fluorescence exhibiting P-ANCA orC-ANCA patterns alone is not specific for the diagnosis ofWegener's Granulomatosis (WG) or microscopic polyangiitis.Decisions about treatment should not be based solely onANCA IFA results. The International ANCA Group Consensusrecommends follow up testing of positive sera with both IA-3 and MPO-ANCA enzyme immunoassays. As many as 5% serumsamples are positive only by EIA. Ref. AM J Clin Jpespy0940;111:507-513. Serum tissue transglutaminas e IgA antibody assay (units/volume)on 03-05-2022 tTG IgA Qn (S) <2 U/mL 0-3 [facility] Work Phone: Comment on above: Negative 0 - 3 Weak Positive 4 - 10 Positive >10 Tissue Transglutaminase (tTG) has been identified as the endomysial antigen. Studies have demonstr- ated that endomysial IgA antibodies have over 99% specificity for gluten sensitive enteropathy. Thin prep Papanicolaou smear with manual screeningon 03-05-2022 Thin prep Papanicolaou smear with manual screening 24 U/L 15-37 [facility] Work Phone: [phone] Thin prep Papanicolaou smear with manual screening 6 5-15 [facility] Work Phone: Thin prep Papanicolaou smear with manual screening 150 U/L 84-246 [facility] Work Phone: [phone] Thin prep Papanicolaou smear with manual screening 1.4 0.7-1.7 [facility] Work Phone: [phone] Total protein bloodon 2021 Protein [Mass/Vol] 7.2 g/dL 6.0-8.5 [facility] Work Phone: No Panel Informationon 11-21 Stool Calprotectin 61 ug/g 0-120 [facility] Work Phone: Comment on above: Concentration Interp retation Follow-Up<16 - 50 ug/g Normal None>50 -120 ug/g Borderline Re-evaluate in 4-6 weeks >120 ug/g Abnormal Repeat as clinically indicatedPerformed at: [facility] [employer] [id number] Director: Jose Claros MD, Phone: [phone] HIV 1 and HIV-2 antibody ass ay with HIV-1 p24 antigen detectionon 11-20-2021 HIV 1+2 Ab+HIV1 p24 Ag IA Ql Non-Reactive Nonreactive [facility] Work Phone: No Panel Informationon 11-20 Bordetella pertussis IgG Antibody 1.92 index 0.00-0.94 [facility] Work Phone: Comment on above: Negative <0.95 Equiv ocal 0.95 - 1.04 Positive >1.04Performed at: [facility] [employer] [id number] Director: Almas Saavedra PhD, Phone: [phone] at: [facility] [employer] [id number] Director: Jose Claros MD, Phone: [phone] Hepatitis A IgM Antibody Negative Negative [facility] Work Phone: Hepatitis B Core IgM Antibody Negative Negative [facility] Work Phone: Hepatitis C Antibody (EIA) <0.1 s/co ratio 0.0-0.9 [facility] Work Phone: Comment on above: Negative: < 0.8 Inde terminate: 0.8 - 0.9 Positive: > 0.9 The CDC recommends that a positive HCV antibody result be followed up with a HCV Nucleic Acid Amplification test (187350).Effective December 29, 2021 Hepatitis Panel (4) will be made non-orderable. [employer]och[employer] eto offers order code [id number] Acute Hepatitis. Rubella IgG Antibody Reactive Nonreactive [facility] Work Phone: Comment on above: Antibody Results Int erpretation of Immune Status Non Reactive Presumed Non-Immune Equivocal Equivocal Reactive Presumed Immune Qualitative QuantiFERON-TB g old in tube teston 11-20-2021 M. tuberculosis tuberculin stim IFN-g Ql (Bld) 0.72 IU/mL . [facility] Work Phone: Serum Varicella zoster virus IgG antibody assay by immunoassay (units/volume)on 11-20-2021 VZV IgG IA Qn (S) 314 index Immune >165 [facility] Work Phone: Comment on above: Negative <135 Equivo mario 135 - 165 Positive >165A positive result generally indicates exposure to thepathogen or administration of specific immunoglobulins,but it is not indication of active infection or stageof disease. Serum mumps virus IgM antibo dy assay (units/volume)on 11-20-2021 MuV IgM Qn (S) < 0.80 AU 0.00-0.79 [facility] Work Phone: Comment on above: Negative < 0.80 Bord giovani 0.80 - 1.20 Positive > 1.20Note: The presence of IgM specific antibody should beinterpreted in conjunction with the patient's clinicalhistory and exposure risk when an acute infection issuspected. Serum or plasma hepatitis B virus surface antigen detection by immunoassayon 11-20-2021 HBV surface Ag IA Ql Negative Negative [facility] Work Phone: [phone] Thin prep Papanicolaou smear with manual screeningon 11-20-2021 Thin prep Papanicolaou smear with manual screening Comment . [facility] Work Phone: Comment on above: The QuantiFERON-TB G old Plus result is determined bysubtracting the Nil value from either TB antigen (Ag) tube.The mitogen tube serves as a control for the test. Thin prep Papanicolaou smear with manual screening 0.44 IU/mL . [facility] Work Phone: [phone] Thin prep Papanicolaou smear with manual screening 0.08 IU/mL . [facility] Work Phone: [phone] Thin prep Papanicolaou smear with manual screening > 10.00 IU/mL . [facility] Work Phone: [phone] Thin prep Papanicolaou smear with manual screening Positive Negative [facility] Work Phone: Comment on above: The specimen receive d for QuantiFERON testing was incubatedby the ordering institution. Specific procedures outlinedin our Directory of Services and in the package insert forthe QuantiFERON Gold (In Tube) test must be followed toenable for proper stimulation of cells for the productionof interferon gamma. Chemiluminescence immunoassaymethodologyRESULTS CALLED TO ABEBA FLORES 11/25/21 0843 Naya Chowdary.REPORT READ BACK BY SAME. Absolute lymphocyte counton 07-28-2021 Lymphocytes Auto (Unsp spec) [#/Vol] 2.55 10*3/uL 0.83-4.51 [facility] Work Phone: Basophil percentageon 2020 Bilirubin [Mass/Vol] 0.20 mg/dL 0.20-1.00 [facility] Work Phone: Comment on above: For patients on eltr ombopag therapy, use of Dimension [place] TBIL is not recommended. Chloride [Moles/Vol] 106 mmol/L 98-107 [facility] Work Phone: Eosinophils/100 WBC (Bld) 1.7 % 0-5 [facility] Work Phone: Glucose [Mass/Vol] 104 mg/dL 74-106 [facility] Work Phone: Comment on above: Fasting Glucose resu lt from 100 to 125 mg/dL suggests IMPAIRED HOMEOSTASIS per A.D.A. criteria.Please note revised GLUCOSE reference range effective 2017. Neutrophils (Bld) [#/Vol] 2.9 10*3/uL 2.0-7.7 [facility] Work Phone: Potassium [Moles/Vol] 3.8 mmol/L 3.5-5.1 [facility] Work Phone: [phone] Protein [Mass/Vol] 7.9 g/dL 6.4-8.2 [facility] Work Phone: [phone] Sodium [Moles/Vol] 136 mmol/L 136-145 [facility] Work Phone: [phone] WBC (Bld) [#/Vol] 6.0 10*3/uL 4.4-11.0 [facility] Work Phone: Blood erythrocytes count (nu mber/volume)on 07-28-2021 RBC (Bld) [#/Vol] 3.79 10*6/uL 4.2-5.4 [facility] Work Phone: Blood hemoglobin measurement (mass/volume)on 07-28-2021 Hemoglobin (Bld) [Mass/Vol] 11.7 g/dL 12.0-15.0 [facility] Work Phone: [phone] Blood lymphocytes/100 leukoc yteson 07-28-2021 Lymphocytes/100 WBC (Bld) 42.2 % 19-41 [facility] Work Phone: [phone] Blood monocytes/100 leukocyt eson 07-28-2021 Monocytes/100 WBC (Bld) 6.8 % 0-10 [facility] Work Phone: Blood platelet mean volumeon 07-28-2021 Platelet mean volume (Bld) [Entitic vol] 11.0 fL 6.2-12.0 [facility] Work Phone: Determination of erythrocyte mean corpuscular volume (MCV)on 07-28-2021 MCV (RBC) [Entitic vol] 92.1 fL 81-99 [facility] Work Phone: Erythrocyte sedimentation ra kushal 07-28-2021 ESR (Bld) [Velocity] 22 mm/h 0-30 [facility] Work Phone: Hematocrit Auto (Bld) [Volum e fraction]on 07-28-2021 Hematocrit (Bld) [Volume fraction] 34.9 % 37-47 [facility] Work Phone: Laboratory - Chemistry and C hemistry - challengeon 07-28-2021 ALP [Catalytic activity/Vol] 42 U/L 45-117 [facility] Work Phone: ALT [Catalytic activity/Vol] 76 U/L 13-56 [facility] Work Phone: CO2 [Moles/Vol] 24.0 mmol/L 21.0-32.0 [facility] Work Phone: Globulin (S) [Mass/Vol] 4.0 g/dL 2.2-4.2 [facility] Work Phone: [phone] Urea nitrogen/Creatinine [Mass ratio] 22.3 mg/mg 10-20 [facility] Work Phone: Laboratory - Hematology and Cell countson 07-28-2021 Basophils/100 WBC (Unsp spec) 0.7 % 0-1 [facility] Work Phone: [phone] Erythrocyte distribution width (RBC) [Entitic vol] 41.0 fL 35.1-43.9 [facility] Work Phone: [phone] Erythrocyte distribution width (RBC) [Ratio] 12.0 % 11.6-14.6 [facility] Work Phone: [phone] Immature granulocytes/100 WBC (Bld) 0.200 % 0.0-0.9 [facility] Work Phone: [phone] Comment on above: IG% - Immature Granu locytes (promyelocytes, myelocytes and metamyelocytes) > 1% indicates that a LEFT SHIFT is Present. MCH (RBC) [Entitic mass] 30.9 pg 27.0-32.0 [facility] Work Phone: Neutrophils/100 WBC (Bld) 48.4 % 47-70 [facility] Work Phone: [phone] Nucleated RBC/100 WBC (Bld) [Ratio] 0 % 0-5 [facility] Work Phone: [phone] MCHC Auto (RBC) [Mass/Vol]on 07-28-2021 MCHC (RBC) [Mass/Vol] 33.5 g/dL 32-36 [facility] Work Phone: No Panel Informationon 07-28 Estimated GFR (MDRD) Amer 146 mL/min >60 [facility] Work Phone: Comment on above: GFR Calc Estimated GFR (MDRD) Non-Af Amer 121 mL/min >60 [facility] Work Phone: [phone] Comment on above: Non- GFR Calc Miscellaneous Test See comment [facility] Work Phone: Comment on above: Scanned image report available in EMR Platelets bldon 07-28-2021 Platelets (Bld) [#/Vol] 262 10*3/uL 150-450 [facility] Work Phone: Serum or plasma C reactive p rotein measurement (mass/volume)on 07-28-2021 CRP [Mass/Vol] mg/L 0.0-3.0 [facility] Work Phone: Comment on above: C-Reactive Protein ( CRP) provides useful information for thediagnosis, therapy and monitoring of inflammatory processesand associated diseases. For the evaluation of Relative Riskfor Cardiovascular Disease, a High Sensitivity CRP (HSCRP)should be ordered. Serum or plasma albumin arielle urement (mass/volume)on 07-28-2021 Albumin [Mass/Vol] 3.9 g/dL 3.2-5.0 [facility] Work Phone: Serum or plasma albumin/glob ulin mass ratioon 07-28-2021 Albumin/Globulin [Mass ratio] 1.0 {ratio} 0.9-2.4 [facility] Work Phone: Serum or plasma calcium arielle urement (mass/volume)on 07-28-2021 Calcium [Mass/Vol] 9.0 mg/dL 8.5-10.1 [facility] Work Phone: Serum or plasma creatinine m easurement (mass/volume)on 07-28-2021 Creatinine [Mass/Vol] 0.63 mg/dL 0.55-1.02 [facility] Work Phone: Comment on above: The validity of the calculated GFR & GFRAA in patients over 70 years has not been determined. Clinical correlation is essential. Serum or plasma urea nitroge n measurement (mass/volume)on 07-28-2021 Urea nitrogen [Mass/Vol] 14 mg/dL 7-18 [facility] Work Phone: Thin prep Papanicolaou smear with manual screeningon 07-28-2021 Thin prep Papanicolaou smear with manual screening 30 U/L 15-37 [facility] Work Phone: Thin prep Papanicolaou smear with manual screening 6 5-15 [facility] Work Phone: Thin prep Papanicolaou smear with manual screening 207 U/L 84-246 [facility] Work Phone: CNOVon 06-30-2019 CNOV Office Visit (WALKWA ) -------- MARIXA GAY ([id number]) 1995 F C[facility] Date Time Provider Department 06/30/19 2:30 PM HENRIETTA AZUL) DEBORAH During your visit today, we recorded the following information about you: Temperature Pulse Blood pressure Weight 98.2 degrees 61/minute 125/66 73.9 kg Henrietta Azul PA-C, PA 06/30/2019 2:51 PM Signed 06/30/2019 Patient presents [...] (HUMIRA) 40 mg/0.4 mL sykt 0.4 mL. mv,iron,ryj-LZ-thwmvao cmb.24 400 mcg tab mv,iron,okg-EC-ydgddho supplement comb. no.24 400 mcg tablet Take [...] file Gets together: Not on file Attends spiritism service: Not on file Active member of [...] No erythema or discharge. -Ears: TMs pearly costello with light reflex, ear canals not red or swollen. +Clear, effusion on right. -Nose-nasal mucosa erythematous.. +thick discharge. No polyps, nasal septum midline. -Throat: pharynx pink with no edema/mass/exudate/eryth kana, buccal mucosa pink and moist with no [...] [J02.9] Cough [R05] Order(s):RAPID STREP TEST B/O [[id number]] Order #: [id number] XR CHEST 2V FRONTAL/LAT [[id number]] Order #: [id number] FUTURE GROUP A STREPTOCOCCUS BY PCR [SQGASPCR] Order #: [id number] benzonatate (TESSALON PERLE) 100 mg capsuleTake 1 capsule by mouth three times daily as needed.Disp: 30 capsuleRfl: 0 Prescriptions as of 06/30/2019 Sig: OMEPRAZOLE 20 MG DELAYED RELE* Take 20 mg by mouth once avis* ADALIMUMAB 40 MG/0.4 ML SUBCU* 0.4 mL. MV,IRON,UCO-UI-JIXTDHX SUPPLE* mv,iron,act-CU-uslgjeq supple* BENZONATATE 100 MG CAPSULE Take 1 [...] Status:Closed by HENRIETTA AZUL on 06/30/19 Normal [facility] Group A Strep by PCRon 06-30 GAS Specimen Source Throat Swab Normal [facility] Comment on above: Performed By: #### G ASPCR #### [facility] [address], [place] [address] Group A Strep PCR Negative Normal [facility] Comment on above: Result Comment: This test was developed and its performance characteristics determined by [facility] [place] ([facility]). It has not been cleared or approved by the FDA. [facility] is regulated under CLIA as qualified to perform high complexity testing. This test is used for clinical purposes. It should not be regarded as investigational or for research. Performed By: #### G ASPCR #### [facility] [address], [place] [address] PROGRESSon 06-30-2019 PROGRESS HNO ID: [id number] Author: Alexandra Sun Rt Service: ? Author Type: ? Type: Progress Notes Filed: 06/30/2019 3:48 PM Note Text: Radiology Service Progress Note PATIENT NAME: Marixa Gay DATE OF SERVICE: June 30, 2019 TIME: 3:39 PM PATIENT IDENTITY VERIFICATION COMPLETED USING TWO (2) METHODS: Name and Date of confirmed by patient verbally. PATIENT GENDER DATA: Female. status: : No status: NO. PATIENT RELEVANT IMPLANT DATA REVIEWED: Not Applicable RADIOLOGY DEPARTMENT: General X-ray: Exam(s) Completed: Chest X-Ray PERIPHERAL IV DATA: Not applicable SIGNED BY: Alexandra Chau June 30, 2019 3:39 PM Normal [facility] PROGRESS HNO ID: [id number] Author: Henrietta Anderson) HAYDEE Azul Service: ? Author Type: Physician Market Asset Protection Manager Type: Progress Notes Filed: 06/30/2019 2:51 PM [...] (HUMIRA) 40 mg/0.4 mL sykt 0.4 mL. mv,iron,vne-BP-diltttq cmb.24 400 mcg tab mv,iron,dip-VF-icqyouy supplement comb. no.24 400 mcg tablet Take [...] file Gets together: Not on file Attends spiritism service: Not on file Active member of [...] No erythema or discharge. -Ears: TMs pearly costello with light reflex, ear canals not red or swollen. +Clear, effusion on right. -Nose-nasal mucosa erythematous.. +thick discharge. No polyps, nasal septum midline. -Throat: pharynx pink with no edema/mass/exudate/eryth kana, buccal mucosa pink and moist with no [...] plan of care. Henrietta Azul PA-C Normal [facility] XR CHEST 2V FRONTAL/LATon XR CHEST 2V FRONTAL/LAT * * *Final Report* * * DATE OF EXAM: Jun 30 [...] spine noted. IMPRESSION: No acute radiographic abnormality. Professor Of Floriculture: PSCB Transcribe Date/Time: Jun 30 2019 3:57P Dictated by : BEATRIS TRAN MD This examination was interpreted and the report reviewed and electronically signed by: BEATRIS TRAN MD on Jun 30 2019 3:57PM EST [id number] Normal [facility] CNOVon 08-04-2018 CNOV Office Visit (INTMWS ) -------- MARXIA GAY ([id number]) 1995 F CHT Date Time Provider Department 08/04/18 4:20 PM SHIRLEY SZYMANSKI (SUGAR REFINER) INTMWS During your visit today, we recorded the following information about you: Temperature Pulse Blood pressure Weight 98.2 degrees 64/minute 120/66 71.2 kg Shirley Older, TABLET MAKING MACHINE OPERATOR.SUGAR REFINER 08/05/2018 8:35 AM Signed CC bloody stools, history of ulcerative colitis HPI Marixa Gay is a 23 year old female who presents with bloody diarrhea and fever. DIARRHEA:25005} occuring 7 to 8 stools/day on average. [...] Prozac [Fluoxetine Hcl]; Zoloft [Sertraline Hcl] MEDICATIONS mv,iron,qxk-NH-gtajafr cmb.24 400 mcg tab mv,iron,jkf-NX-jttqgme supplement comb. no.24 400 mcg tablet Take [...] no evidence of dehydration. Patient lives in [place], here visiting family. She had notified her bakery products checker DR. Xenia Santana of current symptoms, he advised her to be evaluated in primary care. Called and spoke with Dr. Santana. Concerned about possible sepsis or C-diff. Recommended laboratory evaluation with: - CBC + DIFF - COMP METABOLIC PANEL - BLOOD CULTURE DRAW - BLOOD CULTURE DRAW - ENTERIC BACTERIAL PANEL BY PCR - C. DIFFICILE PCR - URINE CULTURE Orders sent to [facility], insurance will only cover their lab Follow-up [...] occur. 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 DIFFICILE PCR [SQCDPCR] Order #: [id number] URINE CULTURE [SQURCUL] Order #: [id number] FUTURE Prescriptions as of 08/04/2018 Sig: AMOXICILLIN 875 MG TABLET Take 1 tablet by mouth twice * MV,IRON,QLV-UZ-RADTGRW SUPPLE* mv,iron,aab-NV-amhvzux supple* ADALIMUMAB 40 MG/0.4 ML SUBCU* 0.4 mL. PREDNISONE 20 MG TABLET Take 20 mg by mouth once avis* Problem List As Of Date 08/04/2018 Noted Resolved Depressive disorder [F32.9] INVALID FOR* Diarrhea [R19.7] INVALID FOR* Iron deficiency anemia [D50.9] INVALID FOR* Left sided colitis (HCC) [K51.50] INVALID FOR* Encounter Status:Closed by SHIRLEY SZYMANSKI CNP on 08/05/18 [facility] PROGRESSon 08-04-2018 PROGRESS HNO ID: [id number] Author: Shirley Szymanski Service: (none) Author Type: Nurse Practitioner Type: Progress Notes Filed: 08/05/2018 8:35 AM Note Text: CC bloody stools, history of ulcerative colitis HPI Marixa Gay is a 23 year old female who presents with bloody diarrhea and fever. DIARRHEA:44456} occuring 7 to 8 stools/day on average. [...] Prozac [Fluoxetine Hcl]; Zoloft [Sertraline Hcl] MEDICATIONS mv,iron,syk-DJ-bhyyhwk cmb.24 400 mcg tab mv,iron,zco-QS-tupgvab supplement comb. no.24 400 mcg tablet Take [...] no evidence of dehydration. Patient lives in [place], here visiting family. She had notified her bakery products checker DR. Xenia Santana of current symptoms, he advised her to be evaluated in primary care. Called and spoke with Dr. Santana. Concerned about possible sepsis or C-diff. Recommended laboratory evaluation with: - CBC + DIFF - COMP METABOLIC PANEL - BLOOD CULTURE DRAW - BLOOD CULTURE DRAW - ENTERIC BACTERIAL PANEL BY PCR - C. DIFFICILE PCR - URINE CULTURE Orders sent to [facility], insurance will only cover their lab Follow-up [...] occur. Patient agreeable to treatment plan Shirley Szymanski APRN.SUGAR REFINER Normal [facility] CNOVon 07-29-2018 CNOV Office Visit (UCWSTR ) -------- MARIXA GAY ([id number]) 1995 F [facility] Date Time Provider Department 07/29/18 10:45 AM ROLF GRUBER [facility] During your visit today, we recorded the following information about you: Temperature Pulse Respiration Blood pressure 99.2 degrees 96/minute 16/minute 102/70 Weight 73.3 kg Rolf Gruber MD 07/29/2018 11:11 AM Signed Patient presents with: Sinusitis: x 4 days HPI: Feeling sick for 4 days. Visiting from [place]. Positive symptoms: Sore throat, Sinus pressure, Fever [...] (HUMIRA) 40 mg/0.4 mL sykt 0.4 mL. mv,iron,ask-HR-clenrpn cmb.24 400 mcg tab mv,iron,pgq-HK-rwzejim supplement comb. no.24 400 mcg tablet Take [...] and sinus symptoms persist >5 days. Rolf Gruber MD Referring Provider: SELF [[id number]] Allergies As [...] ADALIMUMAB 40 MG/0.4 ML SUBCU* 0.4 mL. MV,IRON,HHV-ZD-GOYVYHX SUPPLE* mv,iron,rto-MF-euxuijb supple* PREDNISONE 20 MG TABLET Take 20 [...] of therapy completed Encounter Status:Closed by ROLF GRUBER MD on 07/29/18 [facility] PROGRESSon 07-29-2018 PROGRESS HNO ID: [id number] Author: Rolf Gruber Service: (none) Author Type: Physician Type: Progress Notes Filed: 07/29/2018 11:11 AM Note Text: Patient presents with: Sinusitis: x 4 days HPI: Feeling sick for 4 days. Visiting from [place]. Positive symptoms: Sore throat, Sinus pressure, Fever [...] (HUMIRA) 40 mg/0.4 mL sykt 0.4 mL. mv,iron,ysr-AT-wiumzxf cmb.24 400 mcg tab mv,iron,bxf-EL-yxblrlq supplement comb. no.24 400 mcg tablet Take [...] and sinus symptoms persist >5 days. Rolf Gruber MD Normal [facility] Vital Signs Date Time Vital Sign Value Performing Clinician Facility 01-25-2025 14:45-0400 Body height 160.[address] Catrachito Mercedes MD Work Phone: [facility] 01-22-2025 11:18-0400 Respiratory rate 18 /min Amy Cherry RN [facility] 01-22-2025 11:17-0400 Diastolic blood pressure 76 mm[Hg] Amy Cherry RN [facility] 01-22-2025 11:17-0400 Heart rate 85 /min Amy Cherry RN [facility] 01-22-2025 11:17-0400 SaO2% (BldA) [Mass fraction] 100 % Amy Cherry RN [facility] 01-22-2025 11:17-0400 Systolic blood pressure 145 mm[Hg] Amy Cherry RN [facility] 01-22-2025 11:16-0400 Body temperature 98.01 [degF] Amy Cherry RN [facility] 12-11-2024 14:54-0400 Body height 160 cm Denise Ordonez MD Work Phone: [facility] 12-11-2024 14:54-0400 Body mass index (BMI) [Ratio] 32.6 kg/m2 Denise Ordonez MD Work Phone: [facility] 12-11-2024 14:54-0400 Body temperature 97.3 [degF] Denise Ordonez MD Work Phone: [facility] 12-11-2024 14:54-0400 Body weight 83.46 kg Denise Ordonez MD Work Phone: [facility] 12-11-2024 14:54-0400 Diastolic blood pressure 63 mm[Hg] Denise Ordonez MD Work Phone: [facility] 12-11-2024 14:54-0400 Heart rate 73 /min Denise Ordonez MD Work Phone: [facility] 12-11-2024 14:54-0400 SaO2% (BldA) [Mass fraction] 98 % Denise Ordonez MD Work Phone: [facility] 12-11-2024 14:54-0400 Systolic blood pressure 122 mm[Hg] Denise Ordonez MD Work Phone: [facility] 11-22-2024 10:52-0400 Diastolic blood pressure 63 mm[Hg] Henrietta Herndon MD Work Phone: [facility] 11-22-2024 10:52-0400 Heart rate 77 /min Henrietta Herndon MD Work Phone: [facility] 11-22-2024 10:52-0400 Respiratory rate 16 /min Henrietta Herndon MD Work Phone: [facility] 11-22-2024 10:52-0400 SaO2% (BldA) [Mass fraction] 100 % Henrietta Herndon MD Work Phone: [facility] 11-22-2024 10:52-0400 Systolic blood pressure 107 mm[Hg] Henrietta Herndon MD Work Phone: [facility] 11-22-2024 10:22-0400 Body temperature 99.1 [degF] Henrietta Herndon MD Work Phone: [facility] 11-22-2024 08:38-0400 Body height 160 cm Henrietta Herndon MD Work Phone: [facility] 11-22-2024 08:38-0400 Body mass index (BMI) [Ratio] 33.59 kg/m2 Henrietta Herndon MD Work Phone: [facility] 11-22-2024 08:38-0400 Body weight 86 kg Henrietta Herndon MD Work Phone: [facility] 10-11-2024 10:33-0500 Diastolic blood pressure 62 mm[Hg] Henrietta Herndon MD Work Phone: [facility] 10-11-2024 10:33-0500 Heart rate 76 /min Henrietta Herndon MD Work Phone: [facility] 10-11-2024 10:33-0500 Respiratory rate 16 /min Henrietta Herndon MD Work Phone: [facility] 10-11-2024 10:33-0500 SaO2% (BldA) [Mass fraction] 99 % Henrietta Herndon MD Work Phone: [facility] 10-11-2024 10:33-0500 Systolic blood pressure 112 mm[Hg] Henrietta Herndon MD Work Phone: [facility] 10-11-2024 09:47-0500 Body temperature 97.9 [degF] Henrietta Herndon MD Work Phone: [facility] 10-11-2024 07:55-0500 Body height 160 cm Henrietta Herndon MD Work Phone: [facility] 10-11-2024 07:55-0500 Body mass index (BMI) [Ratio] 32.57 kg/m2 Henrietta Herndon MD Work Phone: [facility] 10-11-2024 07:55-0500 Body weight 83.4 kg Henrietta Herndon MD Work Phone: [facility] 08-14-2024 11:03-0500 Diastolic blood pressure 88 mm[Hg] Gavino Tristan MD Work Phone: [facility] 08-14-2024 11:03-0500 Heart rate 64 /min Gavino Tristan MD Work Phone: [facility] 08-14-2024 11:03-0500 Respiratory rate 18 /min Gavino Tristan MD Work Phone: [facility] 08-14-2024 11:03-0500 SaO2% (BldA) [Mass fraction] 99 % Gavino Tristan MD Work Phone: [facility] 08-14-2024 11:03-0500 Systolic blood pressure 143 mm[Hg] Gavino Tristan MD Work Phone: [facility] 08-14-2024 10:44-0500 Body temperature 97 [degF] Gavino Tristan MD Work Phone: [facility] 08-14-2024 10:32-0500 Body height 160 cm Gavino Tristan MD Work Phone: [facility] 08-14-2024 10:32-0500 Body mass index (BMI) [Ratio] 32.65 kg/m2 Gavino Tristan MD Work Phone: [facility] 08-14-2024 10:32-0500 Body weight 83.6 kg Gavino Tristan MD Work Phone: [facility] 07-14-2024 13:31-0500 Body height 160 cm Imelda Pollard MD Work Phone: [facility] 07-14-2024 13:31-0500 Body mass index (BMI) [Ratio] 32.31 kg/m2 Imelda Pollard MD Work Phone: [facility] 07-14-2024 13:31-0500 Body weight 82.72 kg Imelda Pollard MD Work Phone: [facility] 07-14-2024 13:31-0500 Diastolic blood pressure 79 mm[Hg] Imelda Pollard MD Work Phone: [facility] 07-14-2024 13:31-0500 Heart rate 64 /min Imelda Pollard MD Work Phone: [facility] 07-14-2024 13:31-0500 Systolic blood pressure 128 mm[Hg] Imelda Pollard MD Work Phone: [facility] 01-25-2024 11:08-0400 Body height 160 cm Sarah Espino TABLET MAKING MACHINE OPERATOR-SUGAR REFINER Work Phone: [facility] 01-25-2024 11:08-0400 Body mass index (BMI) [Ratio] 31.18 kg/m2 Sarah Srinivas TABLET MAKING MACHINE OPERATOR-SUGAR REFINER Work Phone: [facility] 01-25-2024 11:08-0400 Body weight 79.83 kg Sarah Espino TABLET MAKING MACHINE OPERATOR-SUGAR REFINER Work Phone: [facility] 12-09-2023 13:23-0400 Body height 160.[address] Domo Weaver Work Phone: [facility] 12-09-2023 13:23-0400 Body mass index (BMI) [Ratio] 32.9 kg/m2 Dr. Domo Weaver Work Phone: [facility] 12-09-2023 13:23-0400 Body weight 84.[address] Domo Weaver Work Phone: [facility] 12-09-2023 13:23-0400 Diastolic blood pressure 87 mm[Hg] Dr. Domo Weaver Work Phone: [facility] 12-09-2023 13:23-0400 Systolic blood pressure 138 mm[Hg] Dr. Domo Weaver Work Phone: [facility] 10-01-2023 13:00-0500 Body temperature 97.2 [degF] No Primary Care Physician [facility] 10-01-2023 13:00-0500 Diastolic blood pressure 54 mm[Hg] No Primary Care Physician [facility] 10-01-2023 13:00-0500 Heart rate 55 /min No Primary Care Physician [facility] 10-01-2023 13:00-0500 Respiratory rate 16 /min No Primary Care Physician [facility] 10-01-2023 13:00-0500 SaO2% (BldA) [Mass fraction] 100 % No Primary Care Physician [facility] 10-01-2023 13:00-0500 Systolic blood pressure 107 mm[Hg] No Primary Care Physician [facility] 10-01-2023 11:19-0500 Body height 160.02 cm No Primary Care Physician [facility] 10-01-2023 11:19-0500 Body mass index (BMI) [Ratio] 31.6 kg/m2 No Primary Care Physician [facility] 10-01-2023 11:19-0500 Body weight 81 kg No Primary Care Physician [facility] 08-27-2023 14:07-0500 Diastolic Blood Pressure Non-Invasive 56 mm[Hg] ERNA TROTTER MD [facility] 08-27-2023 14:07-0500 Systolic Blood Pressure Non-Invasive 102 mm[Hg] ERNA TROTTER MD [facility] 08-27-2023 13:22-0500 Diastolic Blood Pressure Non-Invasive 64 mm[Hg] ERNA TROTTER MD [facility] 08-27-2023 13:22-0500 Heart rate 65 /min ERNA TROTTER MD [facility] 08-27-2023 13:22-0500 Respiratory rate 12 /min ERNA TROTTER MD [facility] 08-27-2023 13:22-0500 Systolic Blood Pressure Non-Invasive 117 mm[Hg] ERNA TROTTER MD [facility] 08-27-2023 13:01-0500 Diastolic Blood Pressure Non-Invasive 99 mm[Hg] ERNA TROTTER MD [facility] 08-27-2023 13:01-0500 Heart rate 61 /min ERNA TROTTER MD [facility] 08-27-2023 13:01-0500 Respiratory rate 15 /min ERNA TROTTER MD [facility] 08-27-2023 13:01-0500 Systolic Blood Pressure Non-Invasive 121 mm[Hg] ERNA TROTTER MD [facility] 08-27-2023 12:55-0500 Heart rate 51 /min ERNA TROTTER MD [facility] 08-27-2023 12:55-0500 Respiratory rate 19 /min ERNA TROTTER MD [facility] 08-27-2023 12:45-0500 Body temperature 97.52 [degF] ERNA TROTTER MD [facility] 08-27-2023 12:35-0500 Respiratory Rate - Anes 32 br/min ERNA TROTTER MD [facility] 08-27-2023 12:30-0500 Respiratory Rate - Anes 10 br/min ERNA TROTTER MD [facility] 08-27-2023 12:25-0500 Respiratory Rate - Anes 10 br/min ERNA TROTTER MD [facility] 08-27-2023 10:13-0500 Body height 160 cm ERNA TROTTER MD [facility] 08-27-2023 10:13-0500 Body temperature 97.52 [degF] ERNA TROTTER MD [facility] 08-27-2023 10:13-0500 Body weight 75 kg ERNA TROTTER MD [facility] 08-27-2023 10:13-0500 Heart rate 63 /min ERNA TROTTER MD [facility] 08-13-2023 07:38-0500 Blood Pressure Location ERNA TROTTER MD [facility] 08-13-2023 07:38-0500 Body height 160 cm ERNA TROTTER MD [facility] 08-13-2023 07:38-0500 Body weight 79.5 kg ERNA TROTTER MD [facility] 08-13-2023 07:38-0500 Body weight 31.05 kg/m2 ERNA TROTTER MD [facility] 08-13-2023 07:38-0500 Diastolic Blood Pressure Non-Invasive 64 mm[Hg] ERNA TROTTER MD [facility] 08-13-2023 07:38-0500 Heart rate 78 /min ERNA TROTTER MD [facility] 08-13-2023 07:38-0500 Respiratory rate 20 /min ERNA TROTTER MD [facility] 08-13-2023 07:38-0500 Systolic Blood Pressure Non-Invasive 110 mm[Hg] ERNA TROTTER MD [facility] 04-10-2022 14:39-0400 Body temperature 97.1 [degF] No Primary Care Physician [facility] Work Phone: 04-10-2022 14:39-0400 Diastolic blood pressure 61 mm[Hg] No Primary Care Physician [facility] Work Phone: 04-10-2022 14:39-0400 Heart rate 54 /min No Primary Care Physician [facility] Work Phone: 04-10-2022 14:39-0400 Respiratory rate 16 /min No Primary Care Physician [facility] Work Phone: 04-10-2022 14:39-0400 SaO2% (BldA) [Mass fraction] 99 % No Primary Care Physician [facility] Work Phone: 04-10-2022 14:39-0400 Systolic blood pressure 115 mm[Hg] No Primary Care Physician [facility] Work Phone: 04-10-2022 12:44-0400 Body height 160.02 cm No Primary Care Physician [facility] Work Phone: 04-10-2022 12:44-0400 Body mass index (BMI) [Ratio] 26.5 kg/m2 No Primary Care Physician [facility] Work Phone: 04-10-2022 12:44-0400 Body weight 68.03 kg No Primary Care Physician [facility] Work Phone: 03-05-2022 15:37-0400 Body height 160.02 cm No Primary Care Physician [facility] Work Phone: 03-05-2022 15:37-0400 Body mass index (BMI) [Ratio] 27.3 kg/m2 No Primary Care Physician [facility] Work Phone: 03-05-2022 15:37-0400 Body weight 69.85 kg No Primary Care Physician [facility] Work Phone: 03-05-2022 15:37-0400 Diastolic blood pressure 70 mm[Hg] No Primary Care Physician [facility] Work Phone: 03-05-2022 15:37-0400 Heart rate 65 /min No Primary Care Physician [facility] Work Phone: 03-05-2022 15:37-0400 SaO2% (BldA) [Mass fraction] 98 % No Primary Care Physician [facility] Work Phone: 03-05-2022 15:37-0400 Systolic blood pressure 123 mm[Hg] No Primary Care Physician [facility] Work Phone: Encounters Encounter Date Encounter Type Care Provider Facility Start: 02-06-2025 [facility] Start: 01-26-2025 End: 01-26-[address] Carmen Shearer MD -[facility] Work Phone: Start: 01-26-2025 End: 01-26-[address] Catrachito Mercedes MD Work Phone: [facility] Work Phone: Start: 01-25-2025 End: 01-25-2025 Patient encounter procedure Katelyn Gisel Eli TABLET MAKING MACHINE OPERATOR-SUGAR REFINER Work Phone: [facility] Comment on above: Encounter to determi ne viability of , single or unspecified fetus (Primary Dx) Start: 01-25-2025 End: 01-25-2025 [facility] KATELYN Gisel [facility] Start: 01-22-2025 End: 01-22-2025 Emergency department patient visit DENISE ORDONEZ [facility] Comment on above: Vaginal discharge (P rimary Dx) Start: 01-18-2025 End: 01-18-2025 ambulatory KATELYN Gisel [facility] Start: 01-11-2025 End: 01-11-2025 Patient encounter procedure Sarah Espino TABLET MAKING MACHINE OPERATOR-SUGAR REFINER Work Phone: [facility] Comment on above: Encounter to determi ne viability of , single or unspecified fetus (Primary Dx) Start: 01-11-2025 End: 01-11-2025 ambulatory SARAH ESPINO [facility] Start: 01-09-2025 End: 01-09-2025 ambulatory DENISE ORDONEZ [facility] Start: 01-06-2025 End: 01-06-[address] Catrachito Mercedes MD Work Phone: [facility] [facility] Work Phone: Start: 01-06-2025 End: 01-06-2025 Patient encounter procedure Domo Weaver DO -Laboratory Work Phone: Start: 01-05-2025 End: 01-06-2025 ambulatory DENISE ORDONEZ [facility] Start: 01-01-2025 End: 01-01-2025 ambulatory Catrachito Mercedes Facility:[facility] Start: 01-01-2025 End: 01-01-2025 Patient encounter procedure Domo Weaver -[facility] Work Phone: Start: 12-26-2024 End: 12-26-2024 Subsequent hospital visit by physician Gavino Tristan MD Work Phone: Nicol [facility] Comment on above: Encounter for assist ed reproductive fertility cycle Start: 12-26-2024 End: 12-26-2024 ambulatory DENISE ORDONEZ [facility] Start: 12-20-2024 End: 12-20-2024 Office outpatient new 30 minutes Anabell Rogel MD Work Phone: [facility] Comment on above: Plantar wart (Primar y Dx); Dermatologic problem Start: 12-20-2024 End: 12-20-2024 ambulatory ANABELL DAVALOS GERRY [facility] Ambulatory Start: 12-20-2024 End: 12-20-2024 ambulatory DENISE ORDONEZ [facility] Start: 12-15-2024 End: 12-15-2024 Professional / ancillary services management [facility] [id number] [facility] Nicol [facility]hali[facility] Comment on above: Female infertility Start: 12-15-2024 End: 12-15-2024 ambulatory IMELDA POLLARD [facility] Start: 12-11-2024 End: 12-11-2024 Initial preventive medicine new pt age 18-39yrs Denise Ordonez MD Work Phone: [facility] Comment on above: Healthcare maintenan ce (Primary Dx); Hypovitaminosis D; Polycystic ovarian disease; Crohn's disease of colon without complication (Multi) Start: 12-11-2024 End: 12-11-2024 Patient encounter status Denise Ordonez MD Work Phone: [facility] Work Phone: Start: 12-11-2024 End: 12-11-2024 ambulatory DENISE ORDONEZ [facility] Start: 12-11-2024 End: 12-11-2024 Encounter for general adult medical examination without abnormal findings DENISE ORDONEZ [facility] Start: 12-04-2024 End: 12-04-2024 ambulatory IMELDA POLLARD [facility] Start: 11-22-2024 End: 11-22-2024 Subsequent hospital visit by physician Henrietta Herndon MD Work Phone: Nicol [facility] Comment on above: Encounter for assist ed reproductive fertility cycle Start: 11-22-2024 End: 11-22-2024 ambulatory HENRIETTA HERNDON [facility] Start: 11-21-2024 End: 11-21-2024 ambulatory DENISE [facility] Start: 11-21-2024 End: 11-21-2024 Encounter for blood typing [facility] Start: 11-20-2024 End: 11-20-2024 Patient encounter status [facility] Jeremiah [facility] Work Phone: Start: 11-20-2024 End: 11-20-2024 Professional / ancillary services management [facility] [id number] [facility] Nicol Dhaliwal Comment on above: Fertility testing (P rimary Dx); Female infertility; Screening for diabetes mellitus; Encounter for Rh blood typing; Screening for STDs (sexually transmitted diseases); Screening for thyroid disorder Start: 11-20-2024 End: 11-20-2024 ambulatory ALEJANDRA CHÁVEZ [facility] Start: 11-20-2024 End: 11-20-2024 Encounter for blood typing ALEJANDRA Sargent [facility] Start: 11-18-2024 End: 11-18-2024 Professional / ancillary services management Mac [id number] [facility] Nicol Dhaliwal Comment on above: Female infertility Start: 11-18-2024 End: 11-18-2024 ambulatory ALEJANDRA Sargent [facility] Start: 11-16-2024 End: 11-16-2024 Professional / ancillary services management Mac [id number] [facility] Nicol Dhaliwal Comment on above: Female infertility Start: 11-16-2024 End: 11-16-2024 ambulatory ALEJANDRA Sargent [facility] Start: 11-14-2024 End: 11-14-2024 Professional / ancillary services management Mac [id number] [facility] Nicol Dhaliwal Comment on above: Female infertility Start: 11-14-2024 End: 11-14-2024 ambulatory ALEJANDRA Sargent [facility] Start: 11-08-2024 End: 11-08-2024 Professional / ancillary services management Mac [id number] [facility] Nicol Dhaliwal Comment on above: Female infertility Start: 11-08-2024 End: 11-08-2024 ambulatory ALEJANDRA Sargent [facility] Start: 10-11-2024 End: 10-11-2024 Subsequent hospital visit by physician Henrietta Herndon MD Work Phone: Nicol [facility]hali[facility] Comment on above: Encounter for assist ed reproductive fertility cycle Start: 10-11-2024 End: 10-11-2024 ambulatory HENRIETTA HERNDON [facility] Start: 10-10-2024 End: 10-10-2024 ambulatory IMELDA POLLARD [facility] Start: 10-09-2024 End: 10-09-2024 Professional / ancillary services management Mac [id number] [facility] Nicol Dhaliwal Comment on above: Female infertility Start: 10-09-2024 End: 10-09-2024 ambulatory ALEJANDRA Sargent [facility] Start: 10-08-2024 End: 10-08-2024 Professional / ancillary services management Mac [id number] [facility] Nicol Dhaliwal Comment on above: Female infertility Start: 10-08-2024 End: 10-08-2024 ambulatory ALEJANDRA Sargent [facility] Start: 10-07-2024 End: 10-07-2024 Professional / ancillary services management Mac [id number] [facility] Nicol Dhaliwal Comment on above: Female infertility Start: 10-07-2024 End: 10-07-2024 ambulatory ALEJANDRA Sargent [facility] Start: 10-05-2024 End: 10-05-2024 Professional / ancillary services management Mac [id number] [facility] Nicol Dhaliwal Comment on above: Female infertility Start: 10-05-2024 End: 10-05-2024 ambulatory [facility] Start: 10-03-2024 End: 10-03-2024 ambulatory IMELDA [facility] Start: 09-29-2024 End: 09-29-2024 ambulatory [facility] Ambulatory Start: 09-27-2024 End: 09-27-2024 Professional / ancillary services management Mac [id number] [facility] Nicol Dhaliwal Comment on above: Arrived Female infertility Start: 09-27-2024 End: 09-27-2024 ambulatory [facility] Start: 09-19-2024 End: 09-19-2024 ambulatory [facility] Start: 09-15-2024 End: 09-15-2024 ambulatory [facility] Ambulatory Start: 09-15-2024 End: 09-15-2024 Encounter for general adult medical examination without abnormal findings [facility] Ambulatory Start: 08-14-2024 End: 08-14-2024 Subsequent hospital visit by physician Gavino Tristan MD Work Phone: Nicol [facility] Comment on above: Endometritis (Primar y Dx); Fertility testing Start: 08-14-2024 End: 08-14-2024 ambulatory GAVINO TRISTAN [facility] Start: 07-24-2024 ambulatory Carmen Hayskalyani lity:[facility] Start: 07-14-2024 End: 07-14-2024 Patient encounter procedure Imelda Pollard MD Work Phone: Nicol [facility] Comment on above: Fertility testing (P rimary Dx); Encounter for preprocedural laboratory examination; Female fertility problem [N97.9] Start: 07-14-2024 End: 07-14-2024 Patient encounter status Imelda Pollard MD Work Phone: [facility] Work Phone: Start: 07-14-2024 End: 07-14-2024 ambulatory IMELDA POLLARD [facility] Start: 07-14-2024 End: 07-14-2024 Encounter for preprocedural laboratory examination IMELDA POLLARD [facility] Start: 07-12-2024 End: 07-12-2024 ambulatory Catrachito Mercedes Facility[facility] Start: 06-29-2024 End: 06-29-2024 ambulatory Renetta Cha Facility[facility] Start: 06-24-2024 End: 06-24-2024 ambulatory Iesha Lo Facility:[facility] Start: 06-01-2024 End: 06-01-2024 ambulatory OUT OF TOWN DOCTOR Facility:[facility] Start: 05-26-2024 End: 05-26-2024 ambulatory OUT OF TOWN DOCTOR Facility:[facility] Start: 05-04-2024 End: 05-04-2024 ambulatory Renetta Cha Facility[facility] Start: 05-04-2024 End: 05-04-2024 ambulatory OUT OF TOWN DOCTOR Facility:[facility] Start: 03-18-2024 ambulatory Iesha Lo Facility :[facility] Start: 01-25-2024 End: 01-25-2024 Telemedicine consultation with patient Sarah Espino TABLET MAKING MACHINE OPERATOR-SUGAR REFINER Work Phone: Nicol [facility]haliwal Comment on above: Female infertility ( Primary Dx); Endometriosis Start: 12-11-2023 End: 12-11-[address] Domo Weaver Work Phone: [facility] Work Phone: Start: 12-11-2023 End: 12-11-[address] Domo Weaver Work Phone: [facility]-Laboratory, Specimen Work Phone: Start: 12-09-2023 End: 12-09-[address] Domo Weaver Work Phone: [facility] Work Phone: Start: 12-09-2023 End: 12-09-[address] Domo Weaver Work Phone: [facility]Laboratory, Specimen Work Phone: Start: 12-09-2023 End: 12-09-[address] Domo Weaver Work Phone: [facility] Work Phone: Start: 11-25-2023 End: 11-26-2023 ambulatory CATRACHITO MERCEDES MD Facility:A Start: 11-06-2023 End: 11-06-2023 ambulatory No Primary Care Physician [facility] Work Phone: Start: 11-06-2023 End: 11-06-2023 Patient encounter procedure No Primary Care Physician [facility]Labor[facility] Work Phone: Start: 10-01-2023 Non-patient / Non-visit No Primary Care Physician [facility] Start: 10-01-2023 End: 10-01-2023 Admission to same day surgery center No Primary Care Physician [facility]-Endoscopy Work Phone: Start: 10-01-2023 End: 10-01-2023 ambulatory No Primary Care Physician [facility] Work Phone: Start: 08-27-2023 End: 08-27-2023 ambulatory ERNA TROTTER MD Facility:B Start: 08-27-2023 End: 08-27-2023 SAME DAY STAY ERNA TROTTER MD [facility] Start: 08-13-2023 End: 08-14-2023 ambulatory ERNA TROTTER MD Facility:B Start: 08-13-2023 End: 08-13-2023 Admission to [facility] ERNA TROTTER MD [facility] Start: 08-07-2023 End: 08-07-2023 ambulatory No Primary Care Physician [facility] Work Phone: Start: 08-07-2023 End: 08-07-2023 Patient encounter procedure No Primary Care Physician [facility]Laboratory, Specimen Work Phone: Start: 08-03-2023 End: 08-03-2023 ambulatory No Primary Care Physician [facility] Work Phone: Start: 08-03-2023 End: 08-03-2023 Patient encounter procedure No Primary Care Physician [facility] Work Phone: Start: 07-29-2023 End: 07-30-2023 ambulatory ERNA TROTTER MD Facility:A Start: 04-20-2023 End: 04-25-2023 ambulatory CATRACHITO MERCEDES MD Facility:[facility] Start: 04-09-2023 Telephone encounter Landy blankenship 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 REFINER Work Phone: [facility] Comment on above: NO SURPRISE ACT New Patient Start: 04-05-2023 Telephone encounter Galina diaz MD Work Phone: [facility] Comment on above: Appointment Request Start: 04-10-2022 End: 04-10-2022 Patient encounter procedure No Primary Care Physician [facility]-Medical Out Start: 03-05-2022 End: 03-05-2022 Patient encounter procedure No Primary Care Physician [facility]Laboratory Start: 03-05-2022 End: 03-05-2022 Patient encounter procedure No Primary Care Physician [facility] Start: 11-26-2021 End: 11-26-2021 Patient encounter procedure No Primary Care Physician [facility]Radiology, [place] Start: 11-21-2021 End: 11-21-2021 Patient encounter procedure No Primary Care Physician [facility]Laboratory, Specimen Start: 11-20-2021 End: 11-20-2021 Patient encounter procedure No Primary Care Physician [facility] Start: 10-22-2021 End: 10-22-2021 Patient encounter procedure No Primary Care Physician [facility] Gastro Virtual Start: 07-28-2021 Patient encounter procedure No Primary Care Physician [facility]Labor[facility] Start: 07-28-2021 End: 07-28-2021 Patient encounter procedure No Primary Care Physician [facility] Procedures Date Procedure Procedure Detail Performing Clinician Start: 01-22-2025 Us uterus 1 4 wk transabdl 08/30 gestat Zane Pryor TABLET MAKING MACHINE OPERATOR-SUGAR REFINER Work Phone: Start: 01-22-2025 Blood typing serolog ic rh (d) Zane Pryor TABLET MAKING MACHINE OPERATOR-SUGAR REFINER Work Phone: Start: 01-22-2025 Comprehensive metabo lic panel Zane Pryor TABLET MAKING MACHINE OPERATOR-SUGAR REFINER Work Phone: Start: 01-22-2025 Smr prim src wet damon nt nfct agt Zane Pryor TABLET MAKING MACHINE OPERATOR-SUGAR REFINER Work Phone: Start: 01-22-2025 Urnls dip stick/tabl et rgnt auto w/o microscopy Zane Pryor TABLET MAKING MACHINE OPERATOR-SUGAR REFINER Work Phone: Start: 12-26-2024 Embryo transfer intrauterine Imelda Pollard MD Work Phone: Start: 12-26-2024 Ultrasonic guidance intraoperative Imelda Pollard MD Work Phone: Start: 12-20-2024 DESTRUCTION OF LESION E adam Rogel MD Work Phone: Start: 12-20-2024 Lipid 1996 panel - S freya or Plasma Gavino Tristan MD Work Phone: Start: 11-22-2024 Follicle puncture oo cyte retrieval any method Katelyn Benitez TABLET MAKING MACHINE OPERATOR-SUGAR REFINER Work Phone: Start: 11-20-2024 Us pelvic nonobstetr ic image dcmtn limited/f/u Alejandra Chávez MD Work Phone: Start: 11-18-2024 Us pelvic nonobstetr ic image dcmtn limited/f/u Alejandra Chávez MD Work Phone: Start: 11-16-2024 Us pelvic nonobstetr ic image dcmtn limited/f/u Alejandra Chávez MD Work Phone: Start: 11-14-2024 Us pelvic nonobstetr ic image dcmtn limited/f/u Alejandra Chávez MD Work Phone: Start: 11-08-2024 Us pelvic nonobstetr ic image dcmtn limited/f/u Alejandra Chávez MD Work Phone: Start: 10-11-2024 Follicle puncture oo cyte retrieval any method Katelyn Benitez TABLET MAKING MACHINE OPERATOR-SUGAR REFINER Work Phone: Start: 10-08-2024 Us pelvic nonobstetr ic image dcmtn limited/f/u Alejandra Chávez MD Work Phone: Start: 10-07-2024 Us pelvic nonobstetr ic image dcmtn limited/f/u Alejandra Chávez MD Work Phone: Start: 10-05-2024 Us pelvic nonobstetr ic image dcmtn limited/f/u Alejandra Chávez MD Work Phone: Start: 08-14-2024 HYSTEROSCOPY DIAGNOSTIC Imelda Pollard MD Work Phone: Start: 08-14-2024 Urine test visual color robbiersn chin Holder MD Work Phone: Start: 12-11-[address] Domo Weaver Work Phone: Start: 10-01-2023 Colonoscopy No Primary Care Physician Start: 08-07-2023 Lactoferrin measurement No Primary Care Physician Start: 11-26-2021 Plain chest X-ray [facility] Care Physician Iban TROTTER MD Plan of Treatment Date Care Activity Detail Author Start: 2069 RSV High Risk: (Elderly (60+) or Population) (1 - 1-dose 75+ series) RSV High Risk: (Elderly (60+) or Population) (1 - 1-dose 75+ series) [facility] Start: 2044 Zoster Vaccines (1 of 2) Zoster Vaccines (1 of 2) [facility] Start: 07-12-2034 DTaP/Tdap/Td Vaccines (2 - Tdap) DTaP/Tdap/Td Vaccines (2 - Tdap) [facility] Start: 12-20-2029 Lipid panel Lipid Panel [facility] Start: 12-20-2025 Vitamin D25-OH Vitamin D25-OH [facility] Start: 12-12-2025 Yearly Adult Physical Yearly Adult Physical [facility] Start: 01-25-2025 End: 01-25-2025 Patient encounter procedure 01/25/2025 2:00 PM EDT Office Visit SERGEI Dhaliwal [address] [place] [address] Katelyn Benitez, TABLET MAKING MACHINE OPERATOR-SUGAR REFINER [address] [place] [address] Nicol Dhaliwal Start: 01-25-2025 End: 01-25-2025 Professional / ancillary services management 01/25/2025 1:30 PM EDT Ancillary Procedure SERGEI Dhaliwal [address] [place] [address] Nicol Dhaliwal Start: 01-11-2025 End: 01-11-2026 US Pelvis transvaginal US OB transvaginal Imaging Routine Encounter to determine viability of , single or unspecified fetus Expected: 01/11/2025, Expires: 01/11/2026 [facility] Service [facility] Work Phone: Comment on above: Expected: 01/11/2025, Expires: Start: 01-10-2025 End: 01-10-2025 Patient encounter procedure 01/10/2025 9:30 AM EDT Office Visit [place] [id number] [phone] [place] [address] [place] [address] [facility] Start: 01-05-2025 End: 01-05-2025 Professional / ancillary services management 01/05/2025 8:30 AM EDT Ancillary Procedure [facility] [address] [place] [address] [facility] Start: 12-26-2024 End: 12-26-2024 Patient encounter procedure 12/26/2024 11:00 AM EDT Procedure Visit [facility] [address] [place] [address] Imelda Pollard MD [address] [place], [place] [id number] [facility] Start: 12-20-2024 End: 12-20-2024 Patient encounter procedure [facility] Comment on above: Arrived Start: 12-15-2024 End: 12-15-2024 Professional / ancillary services management 12/15/2024 6:45 AM EDT Ancillary Procedure [facility] [address] [place] [address] [facility] Start: 12-11-2024 End: 12-11-2024 Patient encounter procedure 12/11/2024 2:30 PM EDT Office Visit [facility] [address] [place] [address] [place] [address] [place] [address] [facility] Start: 12-11-2024 End: 12-11-2025 25-hydroxyvitamin D3 [Mass/volume] in Serum or Plasma Vitamin D 25-Hydroxy,Total (for eval of Vitamin D levels) Lab Routine Hypovitaminosis D Expected: 12/11/2024 (Approximate), Expires: 12/11/2025 [facility] Work Phone: Comment on above: Expected: 12/11/2024 (Approximate), Expi res: 12/11/2025 Start: 12-11-2024 End: 12-11-2025 Lipid 1996 panel - Serum or Plasma Lipid Panel Lab Routine Healthcare maintenance Expected: 12/11/2024 (Approximate), Expires: 12/11/2025 [facility] Service Area Work Phone: Comment on above: Expected: 12/11/2024 (Approximate), Expi res: 12/11/2025 Start: 11-22-2024 End: 11-22-2024 Patient encounter procedure 11/22/2024 10:00 AM EDT Procedure Visit Nicol Dhaliwal [address] [facility] [address] [place] [address] Henrietta Herndon MD [address] [place] [address] Nicol Dhaliwal Start: 11-20-2024 End: 11-20-2025 Blood type and Indirect antibody screen panel - Blood Type And Screen Is this order related to or an upcoming surgery? No Lab Routine Encounter for Rh blood typing Expected: 11/20/2024 (Approximate), Expires: 11/20/2025 [facility] Work Phone: Comment on above: Expected: 11/20/2024 (Approximate), Expi res: 11/20/2025 Start: 11-20-2024 End: 11-20-2025 Chlamydia trachomatis and Neisseria gonorrhoeae DNA [Identifier] in Unspecified specimen by ALEKSEY with probe detection C. trachomatis / N. gonorrhoeae, Amplified, Urogenital Lab Routine Screening for STDs (sexually transmitted diseases) Expected: 11/20/2024 (Approximate), Expires: 11/20/2025 [facility] Work Phone: Comment on above: Expected: 11/20/2024 (Approximate), Expi res: 11/20/2025 Start: 11-20-2024 End: 11-20-2025 Hemoglobin A1c/Hemoglobin.total in Blood Hemoglobin A1C Lab Routine Screening for diabetes mellitus Expected: 11/20/2024 (Approximate), Expires: 11/20/2025 [facility] Work Phone: Comment on above: Expected: 11/20/2024 (Approximate), Expi res: 11/20/2025 Start: 11-20-2024 End: 11-20-2025 Hepatitis B virus surface Ag [Presence] in Serum or Plasma by Immunoassay Hepatitis B surface antigen Lab Routine Screening for STDs (sexually transmitted diseases) Expected: 11/20/2024 (Approximate), Expires: 11/20/2025 [facility] Work Phone: Comment on above: Expected: 11/20/2024 (Approximate), Expi res: 11/20/2025 Start: 11-20-2024 End: 11-20-2025 Hepatitis C virus Ab [Presence] in Serum Hepatitis C Antibody Lab Routine Screening for STDs (sexually transmitted diseases) Expected: 11/20/2024 (Approximate), Expires: 11/20/2025 [facility] Work Phone: Comment on above: Expected: 11/20/2024 (Approximate), Expi res: 11/20/2025 Start: 11-20-2024 End: 11-20-2025 HIV 1+2 Ab+HIV1 p24 Ag [Presence] in Serum or Plasma by Immunoassay HIV 1/2 Antigen/Antibody Screen with Reflex to Confirmation Lab Routine Screening for STDs (sexually transmitted diseases) Expected: 11/20/2024 (Approximate), Expires: 11/20/2025 [facility] Work Phone: Comment on above: Expected: 11/20/2024 (Approximate), Expi res: 11/20/2025 Start: 11-20-2024 End: 11-20-2025 Lutropin [Units/volume] in Serum or Plasma Luteinizing Hormone Lab STAT Female infertility Expected: 11/20/2024 (Approximate), Expires: 11/20/2025 [facility] Work Phone: Comment on above: Expected: 11/20/2024 (Approximate), Expi res: 11/20/2025 Start: 11-20-2024 End: 11-20-2025 Progesterone [Mass/volume] in Serum or Plasma Progesterone Lab STAT Female infertility Expected: 11/20/2024 (Approximate), Expires: 11/20/2025 [facility] Service [facility] Work Phone: Comment on above: Expected: 11/20/2024 (Approximate), Expi res: 11/20/2025 Start: 11-20-2024 End: 11-20-2025 [facility] ANTI-MULLERIAN HORMONE ([facility]), FEMALE [facility] ANTI-MULLERIAN HORMONE ([facility]), FEMALE Lab Routine Fertility testing Expected: 11/20/2024 (Approximate), Expires: 11/20/2025 [facility] Work Phone: Comment on above: Expected: 11/20/2024 (Approximate), Expi res: 11/20/2025 Start: 11-20-2024 End: 11-20-2025 Treponema pallidum IgG+IgM Ab [Presence] in Serum by Immunoassay Syphilis Screen with Reflex Lab Routine Screening for STDs (sexually transmitted diseases) Expected: 11/20/2024 (Approximate), Expires: 11/20/2025 [facility] Work Phone: Comment on above: Expected: 11/20/2024 (Approximate), Expi res: 11/20/2025 Start: 11-20-2024 End: 11-20-2025 TSH with reflex to Free T4 if abnormal TSH with reflex to Free T4 if abnormal Lab Routine Screening for thyroid disorder Expected: 11/20/2024 (Approximate), Expires: 11/20/2025 [facility] Work Phone: Comment on above: Expected: 11/20/2024 (Approximate), Expi res: 11/20/2025 Start: 11-20-2024 End: 11-20-2024 Professional / ancillary services management 11/20/2024 9:45 AM EDT Ancillary Procedure [facility] [address] [place] [address] [facility] Start: 11-18-2024 End: 11-18-2025 Progesterone [Mass/volume] in Serum or Plasma Progesterone Lab STAT Female infertility Expected: 11/18/2024 (Approximate), Expires: 11/18/2025 [facility] Service [facility] Work Phone: Comment on above: Expected: 11/18/2024 (Approximate), Expi res: 11/18/2025 Start: 11-18-2024 End: 11-18-2024 Professional / ancillary services management 11/18/2024 10:00 AM EDT Ancillary Procedure [facility] [address] [place] [address] [facility] Start: 11-16-2024 End: 11-16-2024 Professional / ancillary services management 11/16/2024 7:45 AM EDT Ancillary Procedure [facility] [address] [place] [address] [facility] Start: 11-14-2024 End: 11-14-2025 Estradiol (E2) [Mass/volume] in Serum or Plasma Estradiol Lab STAT Female infertility Expected: 11/14/2024 (Approximate), Expires: 11/14/2025 [facility] Service Area Work Phone: Comment on above: Expected: 11/14/2024 (Approximate), Expi res: 11/14/2025 Start: 11-14-2024 End: 11-14-2024 Professional / ancillary services management 11/14/2024 7:15 AM EDT Ancillary Procedure [facility] [address] [place] [address] [facility] Start: 11-08-2024 End: 11-08-2025 Estradiol (E2) [Mass/volume] in Serum or Plasma Estradiol Lab STAT Female infertility Expected: 11/08/2024 (Approximate), Expires: 11/08/2025 [facility] Service [facility] Work Phone: Comment on above: Expected: 11/08/2024 (Approximate), Expi res: 11/08/2025 Start: 10-31-2024 End: 10-31-2024 Social Work 10/31/2024 12:[address] [place] [address] [facility] Start: 10-27-2024 End: 10-27-2024 ambulatory 10/27/2024 8:[address] [place] [address] Marcia Kiser, TABLET MAKING MACHINE OPERATOR-SUGAR REFINER [address] Department of Medicine-Geriatrics [place] [phone] [facility] Start: 10-18-2024 End: 10-18-2024 Social Work 10/18/2024 11:[address] [place] [address] [facility] Start: 10-13-2024 End: 10-13-2024 ambulatory 10/13/2024 8:[address] [place] [address] Marcia Kiser, TABLET MAKING MACHINE OPERATOR-SUGAR REFINER [id number] Carmichaelsronen Hines Department of Medicine-[facility] [place] [address] [facility] Start: 10-11-2024 End: 10-11-2024 Patient encounter procedure 10/11/2024 9:15 AM EST Procedure Visit Nicol Dhaliwla [address] [place] [id number] Henrietta Herndon MD [address] [place] [address] [facility] Start: 10-08-2024 End: 10-08-2024 Professional / ancillary services management 10/08/2024 8:30 AM EST Ancillary Procedure [facility] [address] [place] [address] [facility] Start: 10-07-2024 End: 10-07-2024 Professional / ancillary services management 10/07/2024 9:00 AM EST Ancillary Procedure [facility] [address] [place] [address] [facility] Start: 10-03-2024 End: 10-03-2024 [facility] Start: 09-29-2024 End: 09-29-2024 ambulatory 09/29/2024 8:[address] [place] [address] Marcia Kiser, TABLET MAKING MACHINE OPERATOR-SUGAR REFINER [address] Jannet [facility] of Medicine-[facility] [place] [phone] [facility] Start: 09-15-2024 End: 09-15-2024 ambulatory 09/15/2024 8:[address] [place] [address] Marcia Kiser, TABLET MAKING MACHINE OPERATOR-SUGAR REFINER [address] Carmichaels [facility] Medicine-[facility] [place] [phone] [facility] Start: 08-13-2024 End: 10-14-2024 Choriogonadotropin ( test) [Presence] in Urine POCT , urine manually resulted Point of Care Testing Routine Encounter for preprocedural laboratory examination Expected: 08/13/2024 (Approximate), Expires: 10/14/2024 [facility] Service [facility] Work Phone: Comment on above: Expected: 08/13/2024 (Approximate), Expi res: 10/14/2024 Start: 08-13-2024 End: 07-14-2025 Hysteroscopy diagnostic Hysteroscopy diagnostic Procedures Routine Fertility testing Expected: 08/13/2024 (Approximate), Expires: 07/14/2025 [facility] Work Phone: Comment on above: Expected: 08/13/2024 (Approximate), Expi res: 07/14/2025 Start: 04-30-2024 COVID-19 Vaccine ( season) COVID-19 Vaccine () [facility] Start: 12-09-2023 Liquid based cervical cytology screening [facility] Start: 10-01-2023 Colonoscopy w/biopsy single/multiple COLONOSCOPY AND BIOPSY [facility] Start: 10-01-2023 Egd transoral biopsy single/multiple EGD BIOPSY SINGLE/MULTIPLE [facility] Start: 10-01-2023 Patient discharge [facility] Start: 08-07-2023 Protein measurement [facility] Start: 08-03-2023 Procedure [facility] Start: 05-04-2023 End: 05-04-2023 Patient encounter procedure 05/04/2023 7:50 AM EDT Office Visit [facility] [address] [place] [address] Landy 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, 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 [address] [place] [address] [facility] Start: 04-30-2023 COVID-19 Vaccine ( season) COVID-19 Vaccine () [facility] Start: 04-30-2023 Influenza vaccination Influenza Vaccine (#1) [facility] Start: 04-10-2022 Iv infusion therapy/prophylaxis /dx 1st to 1 hr THER/PROPH/DIAG IV INF INIT [facility] Work Phone: Start: 03-05-2022 Celiac disease screen [facility] Work Phone: Start: 03-05-2022 Cytomegalovirus IgG antibody measurement [facility] Work Phone: Start: 03-05-2022 Cytomegalovirus IgM antibody assay [facility] Work Phone: Start: 03-05-2022 Immunoglobulin measurement [facility] Work Phone: Start: 03-05-2022 Serum immunofixation [facility] Work Phone: Start: 03-05-2022 [facility] Work Phone: Start: 2016 DTaP/Tdap/Td Vaccines (1 - Tdap) DTaP/Tdap/Td Vaccines (1 - Tdap) [facility] Start: 2015 Screening for malignant neoplasm of cervix [facility] Start: 2013 DTaP/Tdap/Td Vaccines (1 - Tdap) DTaP/Tdap/Td Vaccines (1 - Tdap) [facility] Start: 2013 Hepatitis B Vaccines (1 of 3 - 19+ 3-dose series) Hepatitis B Vaccines (1 of 3 - 19+ 3-dose series) [facility] Start: 2012 Hepatitis C screening Hepatitis C Screening [facility] Start: 2007 Varicella vaccination Varicella Vaccines (1 of 2 - 13+ 2-dose series) [facility] Start: 2006 Depression Screening Depression Screening [facility] Start: 1995 MMR Vaccines (1 of 1 - Standard series) MMR Vaccines (1 of 1 - Standard series) [facility] Start: 1995 Varicella vaccination Varicella Vaccines (1 of 2 - 2-dose childhood series) [facility] Start: 01-08-1995 COVID-19 Vaccine (#1) COVID-19 Vaccine (#1) [facility] Start: 1994 Cyanocobalamin vitamin b-12 Vitamin B-12 [facility] Start: 1994 Hepatitis B Vaccines (1 of 3 - 3-dose series) Hepatitis B Vaccines (1 of 3 - 3-dose series) [facility] Start: 1994 HIV screening HIV Screening [facility] Start: 1994 Lipid panel Lipid Panel [facility] Start: 1994 Screening for osteoporosis Bone Density Scan [facility] Start: 1994 TB Test TB Test [facility] Start: 1994 Vitamin D25-[place] Vitamin D25-[place] [facility] Start: 1994 Yearly Adult Physical Yearly Adult Physical [facility] Albumin [Moles/volum e] in Serum or Plasma [facility] Work Phone: Albumin/Globulin ratio [facility] Work Phone: Antibody to lupus La protein measurement [facility] Work Phone: Antibody to SS-A measurement [facility] Work Phone: Centromere protein B Ab [Units/volume] in Serum [facility] Work Phone: End: 01-22-2025 Chlamydia trachomatis and Neisseria gonorrhoeae DNA [Identifier] in Unspecified specimen by ALEKSEY with probe detection [facility] Work Phone: Comment on above: Once (Lab) for 1 Occurrences starting until 01/22/2025 End: 10-11-2024 Choriogonadotropin ( test) [Presence] in Urine POCT , urine manually resulted Point of Care Testing Routine Once (Lab) for 1 Occurrences starting 10/11/2024 until 10/11/2024 [facility] Work Phone: Comment on above: Once (Lab) for 1 Occurrences starting until 10/11/2024 End: 11-22-2024 Choriogonadotropin ( test) [Presence] in Urine POCT , urine manually resulted Point of Care Testing Routine Once (Lab) for 1 Occurrences starting 11/22/2024 until 11/22/2024 [facility] Work Phone: Comment on above: Once (Lab) for 1 Occurrences starting until 11/22/2024 Chromatin Ab [Units/ volume] in Serum or Plasma [facility] Work Phone: Clostridioides diffi cile DNA [Presence] in Unspecified specimen by ALEKSEY with probe detection [facility] Work Phone: Colonoscopy [facility] Cytomegalovirus IgG antibody measurement [facility] Work Phone: Cytomegalovirus IgM antibody assay [facility] Work Phone: Dehydroepiandrostero ne sulfate (DHEA-S) [Mass/volume] in Serum or Plasma [facility] DNA double strand Ab [Units/volume] in Serum [facility] Work Phone: Electrophoresis: [id number] [facility] Work Phone: Electrophoresis: emiliana ma globulin [facility] Work Phone: End: 02-05-2025 Estradiol (E2) [Mass/volume] in Serum or Plasma Estradiol Lab STAT Female infertility Daily (including weekends) for 8 Occurrences starting 10/08/2024 until 02/05/2025 [facility] Service Area Work Phone: Comment on above: Daily (including weekends) for 8 Occurre nces starting 10/08/2024 until 02/05/2025 End: 01-22-2025 Extra Urine Costello Tube [facility] Work Phone: Comment on above: Once for 1 Occurrences starting 01/23/20 until 01/22/2025 Gastrointestinal pat hogens panel - Stool by ALEKSEY with probe detection [facility] Work Phone: Globulin measurement [facility] Work Phone: IgA [Mass/volume] in Serum or Plasma [facility] Work Phone: IgE [Units/volume] i n Serum or Plasma [facility] Work Phone: IgG [Mass/volume] in Serum or Plasma [facility] Work Phone: IgM [Mass/volume] in Serum or Plasma [facility] Work Phone: Areli-1 extractable nuc lear Ab [Units/volume] in Serum [facility] Work Phone: Lactoferrin [Presenc e] in Stool by Immunoassay [facility] Work Phone: End: 02-05-2025 Lutropin [Units/volume] in Serum or Plasma Luteinizing Hormone (LH) Lab STAT Female infertility Daily (including weekends) for 3 Occurrences starting 10/08/2024 until 02/05/2025 [facility] Work Phone: Comment on above: Daily (including weekends) for 3 Occurre nces starting 10/08/2024 until 02/05/2025 Measurement of immun oglobulin A in serum specimen [facility] Work Phone: Neutrophil cytoplasm ic Ab.classic [Units/volume] in Serum [facility] Work Phone: Ova and parasites id entified in Unspecified specimen by Light microscopy [facility] Work Phone: P-ANCA measurement [facility] Work Phone: Path report.final Dx Spec [facility] Patient referral [facility] Work Phone: Procedure [facility] Procedure [facility] End: 02-04-2025 Progesterone [Mass/volume] in Serum or Plasma Progesterone Lab STAT Female infertility Daily (including weekends) for 3 Occurrences starting 10/07/2024 until 02/04/2025 [facility] Service Area Work Phone: Comment on above: Daily (including weekends) for 3 Occurre nces starting 10/07/2024 until 02/04/2025 End: 02-05-2025 Progesterone [Mass/volume] in Serum or Plasma Progesterone Lab STAT Female infertility Daily (including weekends) for 3 Occurrences starting 10/08/2024 until 02/05/2025 [facility] Work Phone: Comment on above: Daily (including weekends) for 3 Occurre nces starting 10/08/2024 until 02/05/2025 Prolactin [Mass/volu me] in Serum or Plasma [facility] Protein electrophore sis panel - Serum or Plasma [facility] Work Phone: Protein measurement [facility] Work Phone: Protein measurement [facility] TERRENCE US Endometrial L ining Check [facility]ERR[facility] US Endometrial Lining Check Imaging Routine Female infertility 12/15/2024 7:02 AM EDT [facility] Service Area Work Phone: TERRENCE US Pelvis Limite d Follicles - Follicle Studies Performed [facility] Pelvis Limited Follicles - Follicle Studies Performed Imaging Routine Female infertility 09/27/2024 7:51 AM EST [facility] Work Phone: TERRENCE US Pelvis Limite d Follicles - Follicle Studies Performed [facility] Pelvis Limited Follicles - Follicle Studies Performed Imaging Routine Female infertility 10/09/2024 9:42 AM EST [facility] Work Phone: SCL-70 extractable n uclear Ab [Units/volume] in Serum by Immunoassay [facility] Work Phone: Serum protein electrophoresis [facility] Work Phone: Ferrell extractable nu clear Ab [Presence] in Serum [facility] Work Phone: Testosterone Free [Mass/volume] in Serum or Plasma [facility] Thyroid stimulating hormone measurement [facility] Tissue transglutamin ase IgA Ab [Units/volume] in Serum [facility] Work Phone: End: 01-22-2025 Urinalysis complete W Reflex Culture panel - Urine [facility] Work Phone: Comment on above: Once (Lab) for 1 Occurrences starting until 01/22/2025 US Pelvis [facility] US Pelvis transvaginal [facility] Immunizations Immunization Date Immunization Notes Care Provider Deedee ferguson 07-06-2023 influenza virus vaccine, unspecified formulation ERNA TROTTER MD [facility] Payers Date Payer Category Payer Self-pay [id number] 2023 [employer] Blue Shie ld Managed Care [id number]. [id number] [id number] 2022 Unknown [id number]. 1.13.680.2.7.3.6 [id number] 2017 Unknown [id number] 1994 Unknown [id number] 2.16.840.1.566567.3.579.2.627 1994 Unknown [id number] 2.16.840.1.398895.3.579.2.62 1994 Unknown [id number] 2.16.840.1.227417.3.579.2.62 1994 Unknown [id number] 2.16.840.1.180864.3.579.2.62 1994 Unknown [id number] 2.16.840.1.760528.3.579.2.62 1994 Unknown [id number] 2.16.840.1.678893.3.579.2.1243 1994 Unknown [id number] 2.16.840.1.914976.3.579.2.124 1994 Unknown [id number] 2.16.840.1.376378.3.579.2.1243 1994 Unknown [id number] 2.16.840.1.299661.3.579.2.124 1994 Unknown [id number] 2.16.840.1.604924.3.579.2.1241 1994 Unknown [id number] 2.16.840.1.682353.3.579.2.124 1994 Unknown [id number] 2.16.840.1.425253.3.579.2.1241 1994 Unknown [id number] 2.16.840.1.735660.3.579.2.124 1994 Unknown [id number] 2.16.840.1.163586.3.579.2.124 1994 Unknown [id number] 2.16.840.1.625764.3.579.2.1244 1994 Unknown [id number] 2.16.840.1.617313.3.579.2.1244 1994 Unknown [id number] 2.16.840.1.999874.3.579.2.1244 1994 Unknown [id number] 2.16.840.1.778804.3.579.2.1244 1994 Unknown [id number] 2.16.840.1.933515.3.579.2.1244 1994 Unknown [id number] 2.16.840.1.331032.3.579.2.1244 1994 Unknown [id number] 2.16840.1.760382.3.579.2.1244 1994 Unknown [id number] 2.16840.1.333687.3.579.2.1244 1994 Unknown [id number] 2.16.840.1.343081.3.579.2.1244 1994 Unknown [id number] 2.16.840.1.919318.3.579.2.1244 1994 Unknown [id number] 2.16840.1.304725.3.579.2.1244 1994 Unknown [id number] 2.16840.1.116773.3.579.2.1244 1994 Unknown [id number] 2.16840.1.858576.3.579.2.1244 1994 Unknown [id number] 2.16840.1.222050.3.579.2.1244 1994 Unknown [id number] 2.16840.1.139306.3.579.2.1244 1994 Unknown [id number] 2.16.840.1.085688.3.579.2.1244 1994 Unknown [id number] 2.16.840.1.968820.3.579.2.1244 1994 Unknown [id number] 2.16.840.1.920229.3.579.2.1244 1994 Unknown [id number] 2.16.840.1.246830.3.579.2.1244 1994 Unknown [id number] 2.16.840.1.707066.3.579.2.1244 1994 Unknown [id number] 2.16.840.1.715528.3.579.2.1244 1994 Unknown [id number] 2.16.840.1.021068.3.579.2.1244 1994 Unknown [id number] 2.16840.1.449976.3.579.2.1244 1994 Unknown [id number] 2.16.840.1.772953.3.579.2.1244 1994 Unknown [id number] 2.16.840.1.131075.3.579.2.1244 1994 Unknown [id number] 2.16.840.1.566037.3.579.2.1244 1994 Unknown [id number] 2.16840.1.382317.3.579.2.1244 1994 Unknown [id number] 2.16.840.1.067744.3.579.2.1244 1994 Unknown [id number] 2.16.840.1.153956.3.579.2.1244 Department of [facility] e ( and others) [id number] Unknown [facility] [id number] Unknown [id number] Unknown [facility] [id number] Unknown [id number] 2.16.840.1.605519.3.579.2.462 Unknown [id number] 2.16.840.1.690673.3.579.2.462 Unknown [id number] 2.16.840.1.524533.3.579.2.462 Unknown [id number] 2.16.840.1.366592.3.579.2.462 Unknown [id number] 2.16.840.1.827701.3.579.2.462 Unknown [id number] 2.16.840.1.364676.3.579.2.462 Unknown [id number] 2.16.840.1.876145.3.579.2.462 Unknown [id number] 2.16.840.1.924353.3.579.2.462 Unknown [id number] 2.16.840.1.889029.3.579.2.462 Unknown [id number] 2.16.840.1.817718.3.579.2.462 Unknown [id number] 2.16.840.1.021134.3.579.2.462 Unknown [id number] 2.16840.1.984301.3.579.2.462 Unknown [id number] 2.16840.1.013014.3.579.2.462 Social History Date Type Detail Facility Tobacco smoking status ORIS Unknown if ever smoked [facility] Work Phone: Start: 1995 Sex Assigned At Female [facility] Start: 08-03-2023 End: 12-09-2023 Tobacco smoking status ORIS Tobacco smoking consumption unknown [facility] Start: 1994 Sex Assigned At Not on file [facility] Start: 01-25-2024 End: 12-11-2024 Gender identity Not on file [facility] Start: 04-20-2023 End: 01-26-2025 Tobacco smoking status Never smoked tobacco (finding) [facility] Start: 01-25-2024 Tobacco use and exposure Smokeless tobacco non-user [facility] Work Phone: Start: 01-25-2024 End: 01-09-2025 Alcoholic beverage intake Ex-drinker (finding) [facility] Work Phone: Start: 01-25-2024 End: 12-11-2024 History of Social function [facility] Work Phone: Start: 09-30-2023 Gender identity Identifies as female gender (finding) [facility] Work Phone: Start: 09-30-2023 Sexual orientation Heterosexual (fin ding) [facility] Work Phone: Start: 01-15-2024 End: 01-25-2024 Exposure to SARS-CoV-2 (event) Unable to assess [facility] Start: 07-04-2024 End: 01-25-2025 Exposure to SARS-CoV-2 (event) Not sure [facility] NEGATED: Highlighted rowStart: NINF History of tobacco use Passive smoker [facility] Work Phone: Medical Equipment Procedure Code Equipment Code Equipment Origin al Text Equipment Identifier Dates [id number], [id number] Star t: 08-18-2024 End: 11-22-2024 Goals Date Patient Goal Desired Activity /State Functional Status Date Assessment Result Facility 01-22-2025 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 - 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 [C-SSRS] [facility] Work Phone: 08-27-2023 Functional Status Awake, Up to bathroom [facility] 08-27-2023 Functional Status bilateral knee high applied/on [facility] 08-27-2023 Functional Status Maintained [facility]-13[facility]23 Functional Status Sensory Deficits None A [facility] Mental Status Date Assessment Result Facility 10-01-2023 Cognitive function Level Of Cons ciousness Follows Commands;Drowsy [facility] Work Phone: 10-01-2023 Cognitive function Voice/Name [facility] Work Phone: 08-27-2023 Mental Status Oriented x 4 [facility] 08-27-2023 Mental Status [facility] Clinical Notes 04-05-2023 to 01-25-2025 Katelyn Benitez, [facility] - 01/25/2025 2:00 PM Walker Pryor, [facility] - 01/22/2025 11:40 AM Walker Pryor [facility] 01/22/2025 11:40 AM Himanshu Kurtz RN - 01/22/2025 11:13 AM EDT Note Date & Type Note Facility 01-25-2025 History of Present illness Narrative Visit Type: In Person MD reviewed, Authorization status not noted. Repeat OB Scan Ectopic risk factor: yes- endometriosis PGTA/PGTM: no Blood type: B+ Method of Conception: Frozen Embryo transfer Day 5 transfer 4 AA on 12-26-2024, 7 wks Meds: PNV daily, LENI 75 mg IM daily, Estrace 6 mg PO daily, prednisone 10 mg daily, Baby ASA 81 mg daily, Metformin 1,500 mg daily Reviewed results from OB ultrasound today and results reviewed with pt as follows: OB Scan results: Dating Date Details Gest. age GIL Conception via 5 day FET on 12/26/2024: 7 w + 0 d, GIL 09/13/2025 Stated GIL 7 w + 0 d, GIL 09/13/2025 U/S 01/25/2025 based upon CRL 7 w + 0 d, GIL 09/13/2025 Assessment Gestational sac: visualized. Location: intrauterine Yolk sac: visualized Embryo: visualized Cardiac activity: present Early placenta: circumferential YS 2.9 mm CRL 7.8 mm 7w 0d FHR 147 bpm Size = dates subchorionic hematoma= 12 x 10 x 4 mm Detailed discussion with patient about her scan results, , and next steps: Plan: Reviewed medications in detail. She will continue PNV, LENI, Estrace, Prednisone, Metformin, & ASA. Reviewed supplemental progesterone, route and dose, reviewed dates of cessation. Last day to take Estrace, prednisone, & LENI is on 02-20-2025. Stop ASA & Metformin @ 12 wks. Discussed with patient any concerns and discussed establishing care with an OB. Will see [facility] [place] on 01-26-2025. Will provide recommendations if she desires. Advised to call with bleeding, pain or concerns. Went to ED on 01-21-2025 for jose bleeding that began with spotting 01-19-2025, stopped on the weekend and re-started on 01-22-2025, now with brown spotting intermittent- viable IUP on ultrasound with small MALCOM noted 0.4 x 0.6 x 0.9 cm. C/O lower back pain. Discussed MALCOM- advised to refrain from IC until no further bleeding Ultrasound results and Plan of care reviewed with Dr. Henrietta Herndon MD Intimate Exam Performed: No, an intimate exam was not performed at this encounter. Katelyn Benitez CNP 01/25/25 2:50 PM documented in this encounter [facility] Work Phone: 01-22-2025 Physician Emergency department Note HPI Chief Complaint Patient presents with Vaginal Discharge 29-year-old female presents today with brown/pink vaginal discharge and she is 6 weeks . She is using in vitro fertilization and they advised that if she develops any discharge she should come immediately to the emergency department. She had a normal ultrasound last week. She is A1. She lost her first baby in her second trimester. She presently denies fever or chills. She denies chest pain or dyspnea. She denies abdominal pain, nausea, or vomiting. History provided by: Patient and spouse informatics application analyst used: No Patient History Medical History[1] Surgical History[2] Family History[3] Social History[4] Physical Exam ED Triage Vitals Temperature Heart Rate Respirations BP 01/22/25 1116 01/22/25 1117 01/22/25 1117 01/22/25 1117 36.7 C (98 F) 85 (!) 0 145/76 Pulse Ox Temp src Heart Rate Source Patient Position 01/22/25 1117 -- -- -- 100 % BP Location FiO2 (%) -- -- Physical Exam Constitutional: Appearance: Normal appearance. HENT: Head: Normocephalic and atraumatic. Cardiovascular: Rate and Rhythm: Normal rate. Pulses: Normal pulses. Heart sounds: Normal heart sounds. Pulmonary: Effort: Pulmonary effort is normal. Breath sounds: Normal breath sounds. Genitourinary: Comments: Ultrasound ordered and patient self swab Musculoskeletal: General: Normal range of motion. Cervical back: Normal range of motion. Skin: General: Skin is warm. Capillary Refill: Capillary refill takes less than 2 seconds. Neurological: General: No focal deficit present. Mental Status: She is alert and oriented to person, place, and time. Psychiatric: Mood and Affect: Mood normal. Behavior: Behavior normal. ED Course & MDM Diagnoses as of 01/22/25 1326 Vaginal discharge No data recorded Medical Decision Making Patient did not appear to be in acute distress but she is working through IVF and she was experiencing vaginal discharge and lower back pain. hCG beta quant was normal at 39,110. She was B+ and did not require RhoGAM. Metabolic panel had a bicarb of 19 but patient was not having any abdominal pain and her abdomen was not peritonitic with normal bowel sounds. Her liver function and kidney function were normal. Her urinalysis was negative for nitrates or leukocytes or proteins and this lowers my concern for eclampsia. CBC was negative for leukocytosis or left shift and her hemoglobin hematocrit were stable at 11.1 and 32.8. Wet prep was negative for trichomonas or clue cells or yeast. Ultrasound showed a single live intrauterine gestation of 6 weeks and 5 days sonographic gestational age. There has been normal interval growth. There is a very small 0.4 x 0.6 x 0.9 cm subchorionic hemorrhage. Her IVF provider was notified of the ultrasound findings and he was comfortable with patient following up with his service. Patient received contact information and I also requested an appointment. Safely discharged home with return precautions. Amount and/or Complexity of Data Reviewed Labs: ordered. Details: See [facility] Radiology: ordered and independent interpretation performed. Details: See [facility] Procedure Procedures [1] Past Medical History: Diagnosis Date CC (Crohn's colitis) (Multi) Endometriosis GERD (gastroesophageal reflux disease) Polycystic ovary syndrome [2] Past Surgical History: Procedure Laterality Date COLONOSCOPY W/ OR W/O BIOPSY 2023 OTHER SURGICAL HISTORY N/A 11/22/2024 Oocyte Retrieval PELVIC LAPAROSCOPY [3] Family History Problem Relation Name Age of Onset Diabetes Maternal Grandmother Diabetes Maternal Grandfather [4] Social History Tobacco Use Smoking status: Never Passive exposure: Never Smokeless tobacco: Never Substance Use Topics Alcohol use: Not Currently Drug use: Never ISAURA Daniel 01/22/25 1326 [facility] Work Phone: 01-22-2025 Emergency department Note HPI Chief Complaint Patient presents with Vaginal Discharge 29-year-old female presents today with brown/pink vaginal discharge and she is 6 weeks . She is using in vitro fertilization and they advised that if she develops any discharge she should come immediately to the emergency department. She had a normal ultrasound last week. She is A1. She lost her first baby in her second trimester. She presently denies fever or chills. She denies chest pain or dyspnea. She denies abdominal pain, nausea, or vomiting. History provided by: Patient and spouse informatics application analyst used: No Patient History Medical History[1] Surgical History[2] Family History[3] Social History[4] Physical Exam ED Triage Vitals Temperature Heart Rate Respirations BP 01/22/25 1116 01/22/25 1117 01/22/25 1117 01/22/25 111 36.7 C (98 F) 85 (!) 0 145/76 Pulse Ox Temp src Heart Rate Source Patient Position 01/22/251116 -- -- -- 100 % BP Location FiO2 (%) -- -- Physical Exam Constitutional: Appearance: Normal appearance. HENT: Head: Normocephalic and atraumatic. Cardiovascular: Rate and Rhythm: Normal rate. Pulses: Normal pulses. Heart sounds: Normal heart sounds. Pulmonary: Effort: Pulmonary effort is normal. Breath sounds: Normal breath sounds. Genitourinary: Comments: Ultrasound ordered and patient self swab Musculoskeletal: General: Normal range of motion. Cervical back: Normal range of motion. Skin: General: Skin is warm. Capillary Refill: Capillary refill takes less than 2 seconds. Neurological: General: No focal deficit present. Mental Status: She is alert and oriented to person, place, and time. Psychiatric: Mood and Affect: Mood normal. Behavior: Behavior normal. ED Course & MDM Diagnoses as of 01/22/25 1326 Vaginal discharge No data recorded Medical Decision Making Patient did not appear to be in acute distress but she is working through IVF and she was experiencing vaginal discharge and lower back pain. hCG beta quant was normal at 39,110. She was B+ and did not require RhoGAM. Metabolic panel had a bicarb of 19 but patient was not having any abdominal pain and her abdomen was not peritonitic with normal bowel sounds. Her liver function and kidney function were normal. Her urinalysis was negative for nitrates or leukocytes or proteins and this lowers my concern for eclampsia. CBC was negative for leukocytosis or left shift and her hemoglobin hematocrit were stable at 11.1 and 32.8. Wet prep was negative for trichomonas or clue cells or yeast. Ultrasound showed a single live intrauterine gestation of 6 weeks and 5 days sonographic gestational age. There has been normal interval growth. There is a very small 0.4 x 0.6 x 0.9 cm subchorionic hemorrhage. Her IVF provider was notified of the ultrasound findings and he was comfortable with patient following up with his service. Patient received contact information and I also requested an appointment. Safely discharged home with return precautions. Amount and/or Complexity of Data Reviewed Labs: ordered. Details: See [facility] Radiology: ordered and independent interpretation performed. Details: See [facility] Procedure Procedures [1] Past Medical History: Diagnosis Date CC (Crohn's colitis) (Multi) Endometriosis GERD (gastroesophageal reflux disease) Polycystic ovary syndrome [2] Past Surgical History: Procedure Laterality Date COLONOSCOPY W/ OR W/O BIOPSY 2023 OTHER SURGICAL HISTORY N/A 11/22/2024 Oocyte Retrieval PELVIC LAPAROSCOPY [3] Family History Problem Relation Name Age of Onset Diabetes Maternal Grandmother Diabetes Maternal Grandfather [4] Social History Tobacco Use Smoking status: Never Passive exposure: Never Smokeless tobacco: Never Substance Use Topics Alcohol use: Not Currently Drug use: Never ISAURA Daniel 01/22/25 1326 Patient to ED for vaginal discharge. Patient reports being 6 weeks and noticed brown odorless discharge on Wednesday. Patient also reporting lower back pain. Patient denies any urinary issues at this time. documented in this encounter [facility] Work Phone: 01-22-2025 Emergency department Triage note Patient to ED for vaginal discharge. Patient reports being 6 weeks and noticed brown odorless discharge on Wednesday. Patient also reporting lower back pain. Patient denies any urinary issues at this time. [facility] Work Phone: 01-01-2025 Evaluation note Diagnosis Onset Date Resolution Chronic GERD chronic January 01 7:22am Ulcerative colitis chronic December 7:22am [facility] Work Phone: [phone]) 729-279404-29-2025 History of Present illness Narrative* Gavino Tristan MD - 12/26/2024 11:15 AM EDTAssociated Order(s): Embryo Transfer Pre-Procedure Diagnose(s): Encounter for assisted reproductive fertility cycle Post-Procedure Diagnose(s): Encounter for assisted reproductive fertility cycle Patient ID: Marixa Amos is a 29 y.o. female. Embryo Transfer Date/Time: 12/26/2024 11:35 AM Performed by: Gavino Tristan MD Authorized by: Imelda Pollard MD Consent: Consent obtained: Written Consent given by: Patient Procedure risks and benefits discussed: yes Patient questions answered: yes Patient agrees, verbalizes understanding, and wants to proceed: yes Educational handouts given: yes Instructions and paperwork completed: yes Procedure: Pelvic exam performed: No Cervix cleaned and prepped: Yes Speculum placed in vagina: Yes Ultrasound guidance: Yes Catheter type: Sure View Chaudhary Uterine position: Anteverted Bladder backfilling performed: No, bladder sufficiently full Uterine visualization complete: Yes Difficulty: easy Estimated blood loss: None Post-procedure: Patient tolerated procedure well: yes Comments: Preop diagnosis: Infertility Post op diagnosis: Same Market Asset Protection Manager: Dr. Holder Depth: 7 cm Curve: anterior Distance from fundus: 12 mm Embryo stage at day of transfer: day 5 Embryo notes: 4AA PGT: Not performed Anesthesia: None IV Fluids: None UOP: Not recorded Specimens: None Complications: None Attending Attestation: I was physically present for narayanan and critical portions performed by the fellow. I reviewed the fellow's documentation and discussed the patient with the fellow. I agree with the fellow's medical decision making as documented in the fellow's note. Gavino Tristan 12/26/24 11:35 AM [facility] Phone: [phone] Hospital Discharge instructions* Discharge Instructions* Sarah Bansal RN - 12/26/2024 10:41 AM EDT Images from the original note were not included. [facility] [address]. [place] [id number] Home Going Instructions after Embryo Transfer: After completing your embryo transfer please treat your body as though you are . No smoking, alcohol, or recreational drugs. Make sure you are taking a vitamin daily. Continue all medications currently prescribed for embryo transfer until otherwise instructed by your physician, even if you experience spotting or bleeding and even if you have a negative home test. Medications to avoid in : Advil, Motrin, Ibuprofen, Aleve, Excedrin, [place], Sudafed, and Pepto-Bismol. Avoid aspirin unless you are taking this daily at the direction of your physician. Medications that are generally safe in : Tylenol, Benadryl, Plain Robitussin, Zyrtec, Claritin, Pepcid, Tums, Rolaids, Mylanta, Nasonex. Foods to avoid: Seafood that is high in mercury; you can have canned tuna twice a week. Deli meats, deli salads, hot dogs, and unpasteurized cheeses due to the risk of Listeria. Activities to avoid: No hot tubs, whirlpools, or saunas. Avoid starting new exercise routines that you have not done previously. Avoid lifting > 30 lbs. No cleaning litter boxes. No intercourse until you test for . You do not need to be on bed rest following the transfer. It is healthy, normal, and recommended togo about routine physical activity. We advise against taking a home test due to the possibility of false negative and false positive results. You will test for in approximately 10 days, at which point you will be about 4 weeks . If blood work was drawn on the day of your transfer, you can expect a phone that day with the results of your bloodwork. We expect a progesterone level greater than or equal to 16. If you level is less than 16 we will adjust your progesterone dose and repeat your level in 2 days. SARAH BANSAL 10:41 AM [facility] Work Phone: [phone]) 958-128904-23-2025 History of Present illness Narrative* Anabell Rogel MD - 12/20/2024 1:00 PM EDT Lg Amos is a 29 y.o. female who presents for the following: Wart (Right 3rd toe plantar wart-pt states was treated with ln2 at [facility]. ). Review of Systems: No other skin or systemic complaints other than what is documented elsewhere in the note. The following portions of the chart were reviewed this encounter and updated as appropriate: Tobacco Allergies Meds Problems Med Hx Surg Hx Fam Hx Objective Well appearing patient in no apparent distress; mood and affect are within normal limits. A focused skin examination was performed. All findings within normal limits unless otherwise noted below. Assessment/Plan Skin Exam 1. PLANTAR WART Right 3rd Metatarsal Plantar Area Verrucous plaque -Discussed nature of condition -Multiple treatments in office are often needed -Diligent at home therapy is often needed; restart OTC salicylic acid plaster nightly under occlusion -Cryotherapy today -Patient to inquire with TERRENCE if permissible to use 70% salicylic acid with 5-FU at this time, undergoing embryo transfer next week. If TERRENCE okays, will send rx to -Possible side effects of liquid nitrogen treatment reviewed including formation of blisters, crusting, tenderness, scar, and discoloration which may be permanent. -Patient advised to return the office for re-evaluation if the treated lesion(s) do not resolve within 4-6 weeks. Patient verbalizes understanding. Destr of lesion - Right 3rd Metatarsal Plantar Area Complexity: simple Destruction method: cryotherapy Informed consent: discussed and consent obtained Debridement: hyperkeratotic portion removed with sharp debridement Lesion destroyed using liquid nitrogen: Yes Cryotherapy cycles: 3 Outcome: patient tolerated procedure well with no complications Post-procedure details: wound care instructions given 2. DERMATOLOGIC PROBLEM Generalized Related Procedures Follow Up In Dermatology - Established Patient Follow up in 2-3 weeks for plantar wart Discussed if there are any changes or development of concerning symptoms (lesion/skin condition is changing, bleeding, enlarging, or worsening) the patient is to contact my office. The patient verbalizes understanding. Anabell Rogel MD 12/20/2024 documented in this [facility] Work Phone: 1([phone]) 660-395104-18-2025 History of Present illness Narrative* Amy Cherry RN - 12/15/2024 6:45 AM EDT CYCLING NOTE - LINING CHECK Here for US and/or lab monitoring; relevant findings reviewed. 29yr old patient of Dr. Pollard - FET #1 Protocol: Programmed FET + Adjuncts: ASA 81 mg, Doxy, and Prednisone Tentative progesterone start: 12/21/24 Tentative transfer date: 12/26/[address] Pollard Patient stayed for nurse visit. Pain is 0/10 and Progesterone teaching completed with patient and bilateral gluteal injection sites marked for patient. Team will contact patient later today with results and plan. Amy Cherry 12/15/2024 7:43 AM MyChart sent to patient with plan. New lab order placed and patient added to huddle 12/20. 12/15/24 at 1:22 PM - Amy Cherry RN [facility] Phone: [phone]) [phone] Evaluation + Plan note* Assessment & Plan Note - Denise Ordonez MD - 12/11/2024 2:30 PM EDTAssociated Problem(s): Polycystic ovarian disease She is following with gynecology. [facility] Work Phone: [phone]) [phone] Evaluation + Plan note* Assessment & Plan Note - Denise Ordonez MD - 12/11/2024 2:30 PM EDTAssociated Problem(s): Crohn's disease of colon without complication (Multi) She is following with gastroenterology. [facility] Work Phone: [phone]) [phone] History of Present illness Narrative* Denise Ordonez MD - 12/11/2024 2:30 PM EDT Subjective Patient ID: Marixa Amos is a 29 y.o. female who presents for Annual Exam and Establish Care. The patient has a history of polycystic ovarian disease as well as Crohn's disease. She and her are working toward having a baby through artificial insemination. She feels well overall and has excellent compliance with her medicines. They both recently had an extensive lab workup. HPI Review of Systems Constitutional: Negative for activity change and chills. HENT: Negative for congestion. Respiratory: Negative for chest tightness and shortness of breath. Cardiovascular: Negative for chest pain and palpitations. Gastrointestinal: Negative for abdominal pain. Musculoskeletal: Negative for myalgias. Neurological: Negative for weakness. Psychiatric/Behavioral: Negative for agitation and behavioral problems. Objective BP 122/63 (BP Location: Left arm, Patient Position: Sitting, BP Cuff Size: Large adult) Pulse 73 Temp 36.3 C (97.3 F) (Temporal) Ht 1.6 m (5' 2.99) Wt 83.5 kg (184 lb) SpO2 98% BMI 32.60kg/m Physical Exam Constitutional: Appearance: Normal appearance. HENT: Head: Normocephalic and atraumatic. Eyes: Extraocular Movements: Extraocular movements intact. Cardiovascular: Rate and Rhythm: Normal rate and regular rhythm. Pulmonary: Effort: No respiratory distress. Breath sounds: No wheezing. Abdominal: General: Bowel sounds are normal. Palpations: Abdomen is soft. Skin: General: Skin is warm and dry. Neurological: General: No focal deficit present. Psychiatric: Mood and Affect: Mood normal. Behavior: Behavior normal. Assessment/Plan Assessment & Plan Healthcare maintenance She is doing well. Orders: Lipid Panel; Future Hypovitaminosis D Orders: Vitamin D 25-Hydroxy,Total (for eval of Vitamin D levels); Future Polycystic ovarian disease She is following with gynecology. Crohn's disease of colon without complication (Multi) She is following with gastroenterology. [facility] Phone: [phone]) [phone] Miscellaneous Notes* Assessment & Plan Note - Denise Ordonez MD - 12/11/2024 2:30 PM EDTAssociated Problem(s): Polycystic ovarian disease She is following with gynecology. * Assessment & Plan Note - Denise Ordonez MD - 12/11/2024 2:30 PM EDTAssociated Problem(s): Crohn's disease of colon without complication (Multi) She is following with gastroenterology. [facility] Phone: [phone]) 576-667403-26-2025 Nurse Note* Michaelle López RN - 11/22/2024 11:20 AM EDT Patient discharged to home in stable condition via wheelchair to RIDE HOME: Partner's car. Discharge instructions given and concerns addressed. [facility] Work Phone: [phone]) [phone] Nurse Note* Michaelle López RN - 11/22/2024 11:20 AM EDT Patient discharged to home in stable condition via wheelchair to RIDE HOME: Partner's car. Discharge instructions given and concerns addressed. [facility] Work Phone: [phone]) [phone] History of Present illness Narrative* Henrietta Herndon MD - 11/22/2024 10:00 AM EDTAssociated Order(s): Egg Retrieval Pre-Procedure Diagnose(s): Encounter for assisted reproductive fertility cycle Post-Procedure Diagnose(s): Encounter for assisted reproductive fertility cycle Patient ID: Marixa Amos is a 29 y.o. female. Egg Retrieval Date/Time: 11/22/2024 10:15 AM Performed by: Henrietta Herndon MD Authorized by: Katelyn Benitez APRN-SUGAR REFINER Consent: Consent obtained: Verbal and written Consent given by: Patient Procedure risks and benefits discussed: yes Patient questions answered: yes Patient agrees, verbalizes understanding, and wants to proceed: yes Educational handouts given: yes Instructions and paperwork completed: yes Procedure: Anesthesia: MAC Pelvic exam performed: Yes Cervix cleaned and prepped: Yes Speculum placed in vagina: Yes Tenaculum applied to cervix: No Ultrasound guidance: Yes Left ovary: Follicle present Right ovary: Follicle present Pt. post-ovulatory: No Speculum type: Laura Retrieval method: transvaginal Needle inserted: Yes Ovaries aspirated: Yes Free fluid in pelvis: No Post-procedure: Patient tolerated procedure well: yes Comments: Preop diagnosis: Female infertility Post op diagnosis: Same Market Asset Protection Manager: Leslie IV Fluids: 700 cc EBL: 5 cc UOP: Not recorded Specimen: Oocytes Complications: None Number of Oocytes right ovary: 14 Ovarian acc ss (right): Easy Number of Oocytes left ovary: 9 Ovarian access (left): Easy Endometrial thickness: TL Needle type: Single Additional notes: I was present and supervised the entire procedure. Henrietta Herndon 11/22/24 10:16 AM documented in this [facility] Work Phone: [phone]) 375-710903-26-2025 Hospital Discharge instructions* Discharge Instructions* Sarah Bansal RN - 11/22/2024 8:38 AM EDT Images from the original note were not included. [facility] [address]. [place] [id number] Home Going Instructions after Egg Retrieval: Activity: We do not recommend exercise on the day of or the day after your egg retrieval. You can resume normal activities in 2-3 days, but please avoid exercise that involves jumping or bouncing. If you are not having a fresh embryo transfer, you will likely start your period within 1-2 weeks and can resume all normal exercise at that time. You may resume intercourse one week after your retrieval. Anesthesia: Drink small amounts of liquids initially and then slowly increase your intake of food on the day ofyour procedure. Drinking fluids will keep your bowels regular. Avoid foods that are sweet, spicy or hard to digest today. If you feel nauseated, rest your stomach for one hour, and then try drinking clear liquids again. You may take a stool softener or miralax/milk of magnesia to help with constipation that may occur after anesthesia. Please make sure a responsible adult is with you for at least 24 hours after surgery and do not drive or make important decisions during this time. Anesthesia may affect your judgment, coordination, and reaction time. Follow up: ALWAYS follow up with your primary nurse a few days after your procedure to check in and make sure you know what your next steps are. When to call your provider: Vaginal bleeding that is more than a normal period that doesn't taper down within 6 hours. Saturating a sanitary pad in 1-2 hours. Any clots the size of an egg or bigger. Fever of 100.4 or higher with chills. Unusual or foul smelling discharge. Discomfort from abdominal distension. Notify your Physician's office if you develop any signs of Ovarian Hyperstimulation (OHSS): -Abdominal bloating -Rapid weight gain of 5-10 lbs. in 1-2 days -Swelling in hands and feet -Severe abdominal pain -Shortness of breath -Difficulty urinating or decreased urinary output -Diarrhea -Persistent nausea and vomiting -Dizziness These signs and symptoms can occur for up to 2 weeks following your oocyte retrieval. Call [phone] to speak with a Physician or Nurse if you have any concerns. SARAH BANSAL 8:[address]. [place], [place] IVF LAB EMBRYO UPDATE PROTOCOL The IVF Lab will call on the following days: Retrieval Day: The doctor performing the procedure will tell you the total number of eggs collected. There will be no update from the IVF Lab on retrieval day. Day 1: The IVF Lab will call you between 9:00-11:00 with an egg fertilization update. Day 6: The IVF Lab will call you for an update on how your embryos have developed and how many havereached the blastocyst stage. Day 6/7: You will receive an email from the IVF Lab with your summary report indicating the number of embryos that were able to be frozen. If you are doing genetic testing on your embryos you will receive a phone call regarding the number of embryos biopsied and frozen. SARAH BANSAL 8:38 AM [facility] [address] [place] [address] Frozen Embryo Transfer Instructions After your egg retrieval, follow up with your IVF nurse within 3-4 days Wednesday- Wednesday regarding theplan for your frozen embryo transfer (FET) cycle. Your IVF nurse will order and review with you themedications you will be using for the cycle. You will be sent an email from Ver[facility] to fill out your Frozen Embryo Treatment Plan at this time. This must be completed by the day you call the office with your period to set up the transfer cycle. If you do not have this paperwork completed when you call for cycle set up, you may need to take a control pill, if appropriate, or wait until your following period. Completion of this paperwork is what allows us to call your embryos back from offsite storage for embryo transfer. Please call the office on the first full flow day of your period to speak with your IVF nurse. If the first day of your cycle begins over the weekend, please call the office Wednesday morning. Depending on our embryo transfer schedule and the medication protocol your doctor prescribes, you may not start your embryo transfer cycle medications immediately after your period starts. If appropriate for you, your doctor may have you start control to help time your embryo transfer cycle which means there may be a short delay in starting your FET cycle. If you did PGT testing of your embryos, you will not start a frozen embryo transfer cycle until we have received your results. It can take up to a few weeks to receive these results. If appropriate, we may have you take control from the time your period starts until the results are ready. You will be set up for a lining check ultrasound and labs mid cycle, and given a tentative embryo transfer date. You may require multiple lining checks at the discretion of your provider. After your provider determines your lining is adequate, we will determine what date you will begin your progesterone support and confirm the day of your embryo transfer. The embryology lab will contact you the day before with the time of your embryo transfer and when to arrive. Please make sure to drink 20oz. of water one hour before your scheduled arrival time. You do not need to be on bedrest following your embryo transfer. You may resume normal activity following embryo transfer. You will have your blood drawn on the day of transfer to check a progesterone level and you will receive a call that afternoon with your results. Do not discontinue any of your medications unless instructed to by your provider. SARAH BANSAL RN 8:38 AM [facility] Work Phone: [phone]) [phone] History of Present illness Narrative* Amy Cherry RN - 11/20/2024 9:45 AM EDT CYCLING NOTE Here for US and/or lab monitoring; relevant findings reviewed. Cycle #: 2 Reason For Treatment: endo Protocol: ANT with FSH 100 and menopur 75 and HGH AVOID DROPPING DOSE Day of stim: 10 Patient Hx: 29yr old patient of Dr. Pollard - AMH 5.3 PGT: no Notes: started Ganirelix on 11/16 Patient did not stay for discussion after monitoring, Team will contact patient later today with results and plan. Amy Cherry 11/20/2024 9:44 AM Telephone call made to patient with MD plan and detailed MyChart sent to patient with plan. The following discussed: You are ready to trigger! The Ganirelix you took this morning will be the last of your daily meds, and now the only medication you will take until time of retrieval is your trigger tonight! Please trigger with Lupron 80 units (4 mg) tonight at exactly 10:00 PM Tomorrow morning please come in for blood work to assess effectiveness of your trigger - if possible we would ask you to either come here to [facility] or a [facility] lab attached to a [facility]. If you go to a standing lab we cannot guarantee we would get your results in a timely manner! Please see trigger shot and retrieval day instructions below! Your retrieval will fall on Wednesday 11/22 at 10:00 AM but please arrive 1 hr early, getting here at 9:00 AM! Patient to go to [facility] tomorrow for post trigger labs and yearly labs/STDs. Patient aware to hold Metformin will also hold Omeprazole (only takes as needed) starting tomorrow evening. Lab reqs to be printed and placed at credit front office developer. 11/20/24 at 2:19 PM - Amy Cherry RN [facility] Work Phone: 1(959) 490-487403-22-2025 History of Present illness Narrative* Imelda Cali RN - 11/18/2024 10:00 AM EDT CYCLING NOTE Cycle #: 2 Reason For Treatment: endo Protocol: ANT with FSH 100 and menopur 75 and HGH AVOID DROPPING DOSE Day of stim: 8 Patient Hx: 29yr old patient of Dr. Tre HOANG 5.3 PGT: no Notes: Here for US and/or lab monitoring; relevant findings reviewed. Patient did not stay for discussion after monitoring, Team will contact patient later today with results and plan. Pt tentatively scheduled for Wednesday to return. Imelda Cali 11/18/2024 10:08 AM documented [facility] Work Phone: 1([phone]) 172-516303-20-2025 History of Present illness Narrative* Mikhail Ascencio RN - 11/16/2024 7:45 AM EDT CYCLING NOTE Here for US and/or lab monitoring; relevant findings reviewed. Cycle #: 2 Reason For Treatment: endo Protocol: ANT with FSH 100 and menopur 75 and HGH AVOID DROPPING DOSE Day of stim: 6 Patient Hx: 29yr old patient of Dr. Tre HOANG 5.3 PGT: no Notes: Patient did not stay for discussion after monitoring, Team will contact patient later today with results and plan. Mikhail Ascencio 11/16/2024 8:50 AM Telephone call made to patient with MD plan. No changes at this time. Patient to RTC on Wednesday for continued monitoring. Patient agreeable. [facility] Detailed MyChart sent as well. 11/16/24 at 1:54 PM - Mikhail Ascencio RN documented in this [facility]Sal[facility] Work Phone: [phone]) [phone] History of Present illness Narrative* Amy Cherry RN - 11/14/2024 7:15 AM EDT CYCLING NOTE Here for US and/or lab monitoring; relevant findings reviewed. Cycle #: 2 Reason For Treatment: endo Protocol: ANT with FSH 100 and menopur 75 and HGH AVOID DROPPING DOSE Day of stim: 4 Patient Hx: 29yr old patient of Dr. Pollard - [facility] 5.3 PGT: no Notes: Patient did not stay for discussion after monitoring, Team will contact patient later today with results and plan. Amy Cherry 11/14/2024 7:04 AM Telephone call made to patient with plan and MyChart sent with plan. Patient aware to start Ganirelix on . Patient agreeable and will RTC . Patient transferred to credit front office developer. 11/14/24 at 1:36 PM - Amy Cherry RN documented in this [facility] Work Phone: [phone] 110-667603-12-2025 History of Present illness Narrative* Amy Cherry RN - 11/08/2024 10:15 AM EDT HUDDLE NOTE - IVF STIM BASELINE Patient presents for baseline ultrasound and/or labs. 29yr old patient of Dr. Pollard - [facility] 5.3. IVF #2 for hx of endo. Treatment protocol: ANT with FSH 100 and menopur 75 and HGH AVOID DROPPING DOSE Adjuncts: No PGT Lead in: OCP Start date for lead in: 10/19/24 Last estrace/OCP date: 11/07/24 PGT-A/M? No PGT order scanned into [employer], confirmed by: N/A on N/A Plan to freeze: embryos [employer] forms/out waiver complete: Yes Does patient have medications onhand? No not yet, ordered yesterday [facility] signed off: Yes signed by Alejandra Chávez MD at 11/07/2024 CBC reviewed by ? Yes Date of Female STDs: December 14, 2023 - will get re-drawn prior to next treatment cycle Date of Male STDs: February 2024 Medically complex on boarding pass: no If indicated, is PAT consult complete? N/A SPERM: partner Fresh with Frozen Backup Number of vials confirmed: 2 on 11/08/24 at [facility] Component Latest Ref Rng 11/08/2024 WBC 4.4 - 11.3 x10*3/uL 5.2 nRBC 0.0 - 0.0 /100 WBCs 0.0 RBC 4.00 - 5.20 x10*6/uL 3.89 (L) HEMOGLOBIN 12.0 - 16.0 g/dL 11.4 (L) HEMATOCRIT 36.0 - 46.0 % 35.3 (L) MCV 80 - 100 fL 91 MCH 26.0 - 34.0 pg 29.3 MCHC 32.0 - 36.0 g/dL 32.3 RED CELL DISTRIBUTION WIDTH 11.5 - 14.5 % 12.0 Platelets 150 - 450 x10*3/uL 326 Additional details: Patient did not stay for nurse visit. Amy Cherry 11/08/2024 9:35 AM Henrietta Herndon 11/08/24 2:07 PM Telephone call made to patient with MD plan. Patient aware of plan and detailed MyChart sent to patient. Patient transferred to credit front office developer to schedule for Wednesday. 11/08/24 at 3:18 PM - Amy Cherry RN documented in [facility] Work Phone: 1([phone]) 365-343202-12-2025 Nurse Note* Pao Beard RN - 10/11/2024 10:55 AM EST Patient discharged to home in stable condition via wheelchair to RIDE HOME: Partner's car. VSS at time of discharge. Discharge instructions given and concerns addressed. Pao Beard RN 10/11/24 11:13 AM [facility] Work Phone: 1(184) 915-382602-12-2025 Nurse Note* Pao Beard RN - 10/11/2024 10:55 AM EST Patient discharged to home in stable condition via wheelchair to RIDE HOME: Partner's car. VSS at time of discharge. Discharge instructions given and concerns addressed. Pao Beard RN 10/11/24 11:13 AM documented in this [facility]Sal[facility] Work Phone: 1([phone]) 960-902602-12-2025 Nurse Note* Pao Beard RN - 10/11/2024 10:55 AM EST Patient discharged to home in stable condition via wheelchair to RIDE HOME: Partner's car. VSS at time of discharge. Discharge instructions given and concerns addressed. Pao Beard RN 10/11/24 11:13 AM documented in this encounterSal[facility] Work Phone: 1([phone]) [phone] History of Present illness Narrative* Henrietta Herndon MD - 10/11/2024 9:15 AM ESTAssociated Order(s): Egg Retrieval Pre-Procedure Diagnose(s): Encounter for assisted reproductive fertility cycle Post-Procedure Diagnose(s): Encounter for assisted reproductive fertility cycle Patient ID: Marixa Amos is a 29 y.o. female. Egg Retrieval Date/Time: 10/11/2024 9:41 AM Performed by: Henrietta Herndon MD Authorized by: ISAURA Camarillo Consent: Consent obtained: Verbal and written Consent given by: Patient Procedure risks and benefits discussed: yes Patient questions answered: yes Patient agrees, verbalizes understanding, and wants to proceed: yes Educational handouts given: yes Instructions and paperwork completed: yes Procedure: Anesthesia: MAC Pelvic exam performed: Yes Cervix cleaned and prepped: Yes Speculum placed in vagina: Yes Tenaculum applied to cervix: No Ultrasound guidance: Yes Left ovary: Follicle present Right ovary: Follicle present Pt. post-ovulatory: No Speculum type: Laura Retrieval method: transvaginal Needle inserted: Yes Ovaries aspirated: Yes Free fluid in pelvis: No Post-procedure: Patient tolerated procedure well: yes Comments: Preop diagnosis: Female infertility Post op diagnosis: Same Market Asset Protection Manager: Leslie IV Fluids: 300 cc EBL: 5 cc UOP: Not recorded Specimen: Oocytes Complications: None Number of Oocytes right ovary: 16 Ovarian access (right): Easy Number of Oocytes left ovary: 9 Ovarian access (left): Easy Endometrial thickness: Tl Needle type: Single Additional notes: I was present and supervised the entire procedure. Henrietta Herndon 10/11/24 9:42 AM documented in this [facility] Work Phone: 1([phone]) 244-719702-12-2025 History of Present illness Narrative* Henrietta Herndon MD - 10/11/2024 9:15 AM ESTAssociated Order(s): Egg Retrieval Pre-Procedure Diagnose(s): Encounter for assisted reproductive fertility cycle Post-Procedure Diagnose(s): Encounter for assisted reproductive fertility cycle Patient ID: Marixa Amos is a 29 y.o. female. Egg Retrieval Date/Time: 10/11/2024 9:41 AM Performed by: Henrietta Herndon MD Authorized by: Katelyn Benitez APRN-SUGAR REFINER Consent: Consent obtained: Verbal and written Consent given by: Patient Procedure risks and benefits discussed: yes Patient questions answered: yes Patient agrees, verbalizes understanding, and wants to proceed: yes Educational handouts given: yes Instructions and paperwork completed: yes Procedure: Anesthesia: MAC Pelvic exam performed: Yes Cervix cleaned and prepped: Yes Speculum placed in vagina: Yes Tenaculum applied to cervix: No Ultrasound guidance: Yes Left ovary: Follicle present Right ovary: Follicle present Pt. post-ovulatory: No Speculum type: Laura Retrieval method: transvaginal Needle inserted: Yes Ovaries aspirated: Yes Free fluid in pelvis: No Post-procedure: Patient tolerated procedure well: yes Comments: Preop diagnosis: Female infertility Post op diagnosis: Same Market Asset Protection Manager: Leslie IV Fluids: 300 cc EBL: 5 cc UOP: Not recorded Specimen: Oocytes Complications: None Number of Oocytes right ovary: 16 Ovarian access (right): Easy Number of Oocytes left ovary: 9 Ovarian access (left): Easy Endometrial thickness: Tl Needle type: Single Additional notes: I was present and supervised the entire procedure. Henrietta Herndon 10/11/24 9:42 AM [facility]Un[facility] Work Phone: [phone]) 299-273702-12-2025 Miscellaneous Notes* Addendum Note - Pao Beard RN - 10/11/2024 9:15 AM ESTEncounter addended by: Pao Beard RN on: 10/11/2024 2:38 PM Actions taken: MAR administration accepted documented in this encounterUnTr[facility] Work Phone: 1([phone]) 486-432702-12-2025 Note* Addendum Note - Pao Beard RN - 10/11/2024 9:15 AM ESTEncounter addended by: Pao Beard RN on: 10/11/2024 2:38 PM Actions taken: MAR administration accepted [facility] Work Phone: 1(142) 349-618102-12-2025 Hospital Discharge instructions* Discharge Instructions* Pao Beard RN - 10/11/2024 7:49 AM EST Images from the original note were not included. [facility] [address] [place] [address] Home Going Instructions after Egg Retrieval: Activity: We do not recommend exercise on the day of or the day after your egg retrieval. You can resume normal activities in 2-3 days, but please avoid exercise that involves jumping or bouncing. If you are not having a fresh embryo transfer, you will likely start your period within 1-2 weeks and can resume all normal exercise at that time. You may resume intercourse one week after your retrieval. Anesthesia: Drink small amounts of liquids initially and then slowly increase your intake of food on the day ofyour procedure. Drinking fluids will keep your bowels regular. Avoid foods that are sweet, spicy or hard to digest today. If you feel nauseated, rest your stomach for one hour, and then try drinking clear liquids again. You may take a stool softener or miralax/milk of magnesia to help with constipation that may occur after anesthesia. Please make sure a responsible adult is with you for at least 24 hours after surgery and do not drive or make important decisions during this time. Anesthesia may affect your judgment, coordination, and reaction time. Follow up: ALWAYS follow up with your primary nurse a few days after your procedure to check in and make sure you know what your next steps are. When to call your provider: Vaginal bleeding that is more than a normal period that doesn't taper down within 6 hours. Saturating a sanitary pad in 1-2 hours. Any clots the size of an egg or bigger. Fever of 100.4 or higher with chills. Unusual or foul smelling discharge. Discomfort from abdominal distension. Notify your Physician's office if you develop any signs of Ovarian Hyperstimulation (OHSS): -Abdominal bloating -Rapid weight gain of 5-10 lbs. in 1-2 days -Swelling in hands and feet -Severe abdominal pain -Shortness of breath -Difficulty urinating or decreased urinary output -Diarrhea -Persistent nausea and vomiting -Dizziness These signs and symptoms can occur for up to 2 weeks following your oocyte retrieval. Call [phone] to speak with a Physician or Nurse if you have any concerns. Pao Beard 9:11 AM [facility] [address] [place], [place] IVF LAB EMBRYO UPDATE PROTOCOL The IVF Lab will call on the following days: Retrieval Day: The doctor performing the procedure will tell you the total number of eggs collected. There will be no update from the IVF Lab on retrieval day. Day 1: The IVF Lab will call you between 9:00-11:00 with an egg fertilization update. Day 6: The IVF Lab will call you for an update on how your embryos have developed and how many havereached the blastocyst stage. Day 6/7: You will receive an email from the IVF Lab with your summary report indicating the number of embryos that were able to be frozen. If you are doing genetic testing on your embryos you will receive a phone call regarding the number of embryos biopsied and frozen. Pao Beard 9:11 AM [facility] [address]. [place] [address] Frozen Embryo Transfer Instructions After your egg retrieval, follow up with your IVF nurse within 3-4 days Wednesday- Wednesday regarding theplan for your frozen embryo transfer (FET) cycle. Your IVF nurse will order and review with you themedications you will be using for the cycle. You will be sent an email from [employer] to fill out your Frozen Embryo Treatment Plan at this time. This must be completed by the day you call the office with your period to set up the transfer cycle. If you do not have this paperwork completed when you call for cycle set up, you may need to take a control pill, if appropriate, or wait until your following period. Completion of this paperwork is what allows us to call your embryos back from offsite storage for embryo transfer. Please call the office on the first full flow day of your period to speak with your IVF nurse. If the first day of your cycle begins over the weekend, please call the office Wednesday morning. Depending on our embryo transfer schedule and the medication protocol your doctor prescribes, you may not start your embryo transfer cycle medications immediately after your period starts. If appropriate for you, your doctor may have you start control to help time your embryo transfer cycle which means there may be a short delay in starting your FET cycle. If you did PGT testing of your embryos, you will not start a frozen embryo transfer cycle until we have received your results. It can take up to a few weeks to receive these results. If appropriate, we may have you take control from the time your period starts until the results are ready. You will be set up for a lining check ultrasound and labs mid cycle, and given a tentative embryo transfer date. You may require multiple lining checks at the discretion of your provider. After your provider determines your lining is adequate, we will determine what date you will begin your progesterone support and confirm the day of your embryo transfer. The embryology lab will contact you the day before with the time of your embryo transfer and when to arrive. Please make sure to drink 20oz. of water one hour before your scheduled arrival time. You do not need to be on bedrest following your embryo transfer. You may resume normal activity following embryo transfer. You will have your blood drawn on the day of transfer to check a progesterone level and you will receive a call that afternoon with your results. Do not discontinue any of your medications unless instructed to by your provider. Pao Beard RN 9:10 AM documented in this encounterSal[facility] Work Phone: 1(355) 249-725502-10-2025 History of Present illness Narrative* Mikhail Ascencio RN - 10/09/2024 9:15 AM EST CYCLING NOTE Here for US and/or lab monitoring; relevant findings reviewed. Cycle #: 1 Reason For Treatment: hx of endo Protocol: OCP antagonist FSH 125/HMG 75 Day of stim: 10 Patient Hx: 29yr old patient of Dr. Pollard - [facility] 5.317 PGT: yes Notes: Patient did not stay for discussion after monitoring, Team will contact patient later today with results and plan. Mikhail Ascencio 10/09/2024 9:11 AM Telephone call made to patient with MD plan. Patient to trigger at 0915 tonight for a retrieval on 10.11 at 0915 am. Patient to get post trigger labs drawn tomorrow at [facility] lab. Patient to beginCabergoline 0.5mg x8days. Trigger and trigger day instructions given over the phone and sent via [employer] for reference. Patient agreeable. [facility] for [facility]. 10/09/24 at 3:01 PM - Mikhail Ascencio RN documented in this encounterSal[facility] Work Phone: 1(508) 392-539602-09-2025 History of Present illness Narrative* Lisbeth Spencer RN - 10/08/2024 8:30 AM EST CYCLING NOTE Cycle #: 1 Reason For Treatment: hx of endo Protocol: OCP antagonist FSH 150/HMG 75 Day of stim: 9 Patient Hx: 29yr old patient of Dr. Pollard - [facility] 5.317 PGT: yes Here for US and/or lab monitoring; relevant findings reviewed. Patient did not stay for discussion after monitoring, Team will contact patient later today with results and plan. Lisbeth Spencer 10/08/2024 9:30 AM Tentative plan for patient to trigger tonight at 9:15pm with lupron. IVF Lupron only trigger Patient to trigger tonight at exactly 9:15 pm with 4mg (80 units/0.8 ML) Leuprolide, no other IVF meds. Pre-op, post op and trigger instruction hand outs given and reviewed. NPO after midnight night before procedure; no perfumes, deodorant or lotions. Arrive 60 minutes prior to procedure at [facility] 310. Patient verbalizes understanding of plan and location of procedure. Patient scheduled to come in to office tomorrow for labs. Dr. Holder to call patient if plan changes. Lisbeth Spencer 10/08/2024 11:31 AM ==== Reviewed labs--will plan to continue stimulation for one more day at dosage FSH 125/HMG 75, ganirelix. Patient to come back tomorrow for US Hilary Holder 10/08/24 1:16 PM documented in this encounterSal[facility] Work Phone: 1(373) 300-444702-08-2025 History of Present illness Narrative* Lisbeth Spencer RN - 10/07/2024 9:00 AM EST CYCLING NOTE Cycle #: 1 Reason For Treatment: hx of endo Protocol: OCP antagonist FSH 150/HMG 75 Day of stim: 8 Patient Hx: 29yr old patient of Dr. Tre Yoo [facility] 5.317 PGT: yes Here for US and/or lab monitoring; relevant findings reviewed. Patient did not stay for discussion after monitoring, Team will contact patient later today with results and plan. Lisbeth Spencer 10/07/2024 8:53 AM [employer] message sent with plan. Lisbeth Spencer 10/07/24 12:05 PM documented in this encounterSal[facility] Work Phone: 1(883) 710-776302-06-2025 History of Present illness Narrative* Mikhail Ascencio RN - 10/05/2024 9:45 AM EST CYCLING NOTE Here for US and/or lab monitoring; relevant findings reviewed. Cycle #: 1 Reason For Treatment: hx of endo Protocol: OCP antagonist FSH 150/HMG 75 Day of stim: 6 Patient Hx: 29yr old patient of Dr. Tre HOANG 5.317 PGT: yes PGT-A Notes: Patient did not stay for discussion after monitoring, Team will contact patient later today with results and plan. Mikhail Ascencio 10/05/2024 9:18 AM Telephone call made to patient with MD plan. Patient to decrease FSH dose to 125 units. Patient to RTC on 10/07 for continued monitoring. Patient agreeable. [facility] with plan sent to patient. 10/05/24 at 1:23 PM - Mikhail Ascencio RN documented in this encounterSal[facility] Work Phone: [phone]) 998-348301-29-2025 History of Present illness Narrative* Mikhail Ascencio RN - 09/27/2024 8:45 AM EST IVF NURSE CONSULT Here for IVF Nurse consult. Tentative Calendar given and reviewed. Yes Meds have been ordered from[facility] Patient aware that plan is a freeze all cycle. Yes IC/ abstinence and activity guidelines reviewed. Yes Next steps: Patient and patient's mother present for a nurse teach. All medication instructions were reviewed. Patient confirmed understanding with teach back method. All questions were answered. This RN to call patient later today with plan following her baseline scan. Mikhail Ascencio 09/27/2024 9:11 AM documented in this [facility] Work Phone: 1([phone]) 409-659201-29-2025 History of Present illness Narrative* Mikhail Ascencio RN - 09/27/2024 8:15 AM EST MUKESH NOTE - IVF STIM BASELINE Patient presents for baseline ultrasound and/or labs. Treatment protocol: ANT FSH 150 and menopur 75 Trigger plan: HCG vs Lupron Lead in: OCP Start date for lead in: 09/10 Last estrace/OCP date: 09/26 PGT-A/M? Yes; Req Sent: Yes; PGT-M Test Ready: No ; Company: [employer] PGT order scanned into [employer], confirmed by: on 09/27 (scanned in to media tab on 07/18/24) Plan to freeze: embryos [employer] forms/out waiver complete: Yes Does patient have medications onhand? Yes [facility] Boarding pass signed off: Yes CBC reviewed by MD? Yes Component Latest Ref Rng 09/27/2024 WBC 4.4 - 11.3 x10*3/uL 5.7 nRBC 0.0 - 0.0 /100 WBCs 0.0 RBC 4.00 - 5.20 x10*6/uL 3.84 (L) HEMOGLOBIN 12.0 - 16.0 g/dL 11.4 (L) HEMATOCRIT 36.0 - 46.0 % 34.4 (L) MCV 80 - 100 fL 90 MCH 26.0 - 34.0 pg 29.7 MCHC 32.0 - 36.0 g/dL 33.1 RED CELL DISTRIBUTION WIDTH 11.5 - 14.5 % 12.3 Platelets 150 - 450 x10*3/uL 334 Date of Female STDs: 11/2023 Date of Male STDs: 02/2024 Medically complex on boarding pass: no If indicated, is PAT consult complete? No SPERM: partner Fresh with Frozen Back[employer] Number of vials confirmed: 2 vials @ on 09/27 by RW Additional details: Mikhail Ascencio 09/27/2024 8:36 AM Hilary Holder 09/27/24 12:40 PM Telephone call made to patient with MD plan. Patient to begin IVF medication on Wednesday and RTC on10/03 for continued monitoring. Patient agreeable. [facility] Progressionhart sent to patient with plan and tentative calendar for reference. 09/27/24 at 1:34 PM - Mikhail Ascencio RN documented in this [facility] Work Phone: 1([phone]) 241-694612-16-2024 History of Present illness Narrative* Hilary Holder MD - 08/14/2024 10:45 AM ESTAssociated Order(s): Hysteroscopy diagnostic Pre-Procedure Diagnose(s): Fertility testing Post-Procedure Diagnose(s): Fertility testing Images from the original note were not included. Patient ID: Marixa Amos is a 29 y.o. female. Hysteroscopy diagnostic Date/Time: 08/14/2024 11:02 AM Performed by: Hilary Holder MD Authorized by: Imelda Pollard MD Consent: Consent obtained: Verbal and written Consent given by: Patient Risks, benefits, and alternatives were discussed: yes Risks discussed: Bleeding, infection and pain [place] protocol: Procedure explained and questions answered to patient or proxy's satisfaction: yes Relevant documents present and verified: yes Test results available: yes Imaging studies available: yes Required blood products, implants, devices, and special equipment available: yes Immediately prior to procedure, a time out was called: yes Patient identity confirmed: Verbally with patient, arm band and hospital- assigned identification number Pre-procedure details: Skin preparation: Povidone-iodine Procedure specific details: Procedure: Diagnostic Hysteroscopy Preop diagnosis: fertility testing Post op diagnosis: Same Market Asset Protection Manager: Fellow Anesthesia: None IV: None EBL: 3 cc Specimens: None Complications: None Risks benefits and alternatives of the procedure explained to the patient and informed consent was obtained. Urine test was performed and was negative. Time out was performed. The patient was placed in the dorsal lithotomy position and a sterile speculum was placed in the vagina. The cervix was sterilized with Betadine x3. Paracervical block with lidocaine 1% was administered. Tenaculum: Yes Dilation: No The hysteroscope was placed in the cervix and advanced into the uterine cavity. Normal saline was used for distension media. Images were obtained and findings noted as below. All instruments were then removed. Good hemostasis was noted. Patient tolerated the procedure well returned to the recovery area in stable condition. . Findings: Cavity: smooth cavity, areas of erythema consistent with chronic endometritis Ostia: Bilateral tubal ostia visualized Additional Notes:will plan for 14d doxycyline Post-procedure details: Procedure completion: Tolerated well, no immediate complications documented in this [facility] Work Phone: 1(240) 250-821211-15-2024 History of Present illness Narrative* Imelda Pollard MD - 07/14/2024 1:30 PM EST Visit Type: In Person Interval history: Has done oral agents and IUI without success since her SAB in 2021. Past History Reviewed and Affirmed Below: Virtual or Telephone Consent: An interactive audio and video telecommunication system which permitsreal time communications between the patient (at the originating site) and provider (at the distantsite) was utilized to provide this telehealth service Follow Up Visit HPI Patient is a 29 y.o. female with endometriosis presenting today for [...] See scanned record. 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 Treatment to date: Fertility Cycles Cycle Name Treatment Start Date Type Outcome Clomid IUI 50 cycle #1 Planning Previoulsy has done ml 50mg with TI x 2 Past Medical History: Diagnosis Date CC (Crohn's colitis) (Multi) Endometriosis GERD (gastroesophageal reflux disease) Polycystic ovary syndrome Past Surgical History: Procedure Laterality Date PELVIC LAPAROSCOPY Current Outpatient Medications on File Prior to Visit Medication Sig Dispense Refill cholecalciferol, vitamin D3, (VITAMIN D3 ORAL) Take by mouth. omeprazole (PriLOSEC) [address] capsule Take 1 capsule (20 mg) by mouth every 12 hours. omeprazole-sodium bicarbonate (Zegerid) 40-1,680 mg packet packet Take 1 packet (40 mg) by mouth 2 times a day before meals. 4-VNQN-SUHXH ACID-OM3 ORAL Take 1 capsule by mouth once daily. ubidecarenone (COQ-10 ORAL) Take 400 mg by mouth. ustekinumab (Stelara) injection Inject 1 mL (90 mg) under the skin see administration instructions. No current facility-administered medications on file prior to visit. BMI: BMI Readings from Last 1 Encounters: 07/14/24 32.31 kg/m VITALS: BP 128/79 Pulse 64 Ht 1.6 m (5' 3) Wt 82.7 kg (182 lb 6 oz) LMP 07/12/2024 BMI 32.31 kg/m LMP: Patient's last menstrual period was 07/12/2024. 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 - [facility]ieu [phone] - [place] [phone] Ovulation predictor kits test for LH hormone in your urine. There are a variety of kits available -Clear Blue Easy Digital (NOT the Advanced version) [...] luteal phase prometrium 100mg PV BID starting 3days after IUI. Sarah Espino 01/25/2024 11:20 AM ASSESSMENT 29 y.o. female with stage 2 endometriosis presenting today IVF Hx of 1 SAB and + hx IBD We reviewed IVF and discussed the following: In-vitro fertilization and embryo transfer Stimulation protocols Oocyte retrieval, risks Cryopreservation Assessment of fertilization Embryo development Statistics ICSI/Assisted hatching Embryo transfer and preparation Risks of OHSS and multiple gestation Cancelled cycles Use of control Selective reduction Number of embryos to transfer Ectopic and miscarriage Team based care Informed consent procedures Folic acid supplementation Genetic carrier screening PGT Frozen tissue storage and transport process Discussed that pap and mammogram must be updated per ACOG guidelines before treatment can begin ART Cycle Plan 1. Protocol/Fertility Plan Update: Lead in: OCP Stimulation protocol: ANT FSH 150 and menopur 75 Trigger plan: HCG vs Lupron Pre-retrieval meds: Antibiotics per protocol Adjuncts: NONE Notes: 2. FET: Protocol: Programmed Adjuncts: ASA 81 mg, Doxy, and Prednisone OCP candidate: Yes Notes: 3. Insemination: Sperm source: partner Sperm collection method: Fresh with Frozen Backup Notes: ICSI: Yes # of oocytes to be fertilized: all 4. Transfer: Number of embryos to replace: 1 PGTA WNL Stage of embryo transfer: day 5 Trial transfer needed? Yes 5. Cryopreservation plan PGT: PGTA Freeze all? Yes Oocyte cryopreservation: No 6. Patient willing to accept blood transfusion: Yes 7. RN to review chart, initiate IVF boarding pass, and assure completion of the following prior to proceeding with IVF stimulation: No orders of the defined types were placed in this encounter. STDs (Hepatitis B, Hepatitis C, HIV, Syphilis, GC/CT) for patient and partner (if applicable) to becompleted within the last year (z11.3) Genetic carrier testing: waiver or carrier screen completed with clearance documentation by provider for both patient and partner (z13.71) Rubella and varicella to be completed within the last five years (z11.59) TSH to be completed within the last year (z13.29) Type & Screen to be completed within the last year (z01.83) AMH to be completed within the last year (z31.41) Pre-IVF Imaging: Reference any orders placed by provider. Cavity evaluation: hysteroscopy Frozen sperm sample: ensure frozen partner sample (z31.41) or verify donor sperm on site prior to stimulation start date. Verify in EMR or obtain copy of patient s last mammogram (if applicable) and pap smear results for provider review in boarding pass. Enroll in Engaged MD and complete annual consent forms for IVF and cryotransport agreements. BMI checklist for BMI <18 or >40 Consults: Nursing and Financial Consult. PAT Consult: No Ectopic Risk: Yes (endometriosis) Medically Complex: No Additional consults NONE and review what is in the boarding pass. 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 Treatment to date: Fertility [...] mouth 2 times a day before meals. 8-WAYT-TVQOB ACID-OM3 ORAL Take 1 capsule by mouth once daily. ustekinumab (Stelara) injection Inject 1 mL (90 mg) under the skin see administration instructions. No current facility-administered medications on file prior to visit. BMI: BMI Readings from Last 1 Encounters: 01/25/24 31.18 kg/m VITALS: Ht 1.6 m (5' 3) Wt 79.8 kg (176 lb) LMP 01/01/2024 [...] of your menstrual period (wednesday-wednesday) to let usknow you will be testing and doing an insemination (IUI) this cycle. - [facility] [phone] - [place] [phone] Ovulation predictor kits test for LH hormone in your urine. There are a variety of kits available -Clear Blue Easy Digital (NOT the Advanced version) [...] luteal phase prometrium 100mg PV BID starting 3days after IUI. Sarah Espino 01/25/2024 11:20 AM documented in this [facility] Work Phone: 1(238) 357-621904-11-2024 NotePap Smear Specimen AdequacyApril 2023 3:45pmComment.Satisfactory for evaluation. Endocervical and/or squamous metaplasticcells (endocervical component)are present.[facility] INTERFACED A#[id number] Memorial HospitalComment on above:Satisfactory for evaluation. Endocervical and/or squamous metaplasticcells (endocervical component)are present.10-01-2023 Procedure [facility] 10-01-2023 Procedure [facility]02-02-2024 Procedure note [facility]02-02-2024 Procedure [facility] 08-27-2023 Hospital Discharge instructions Patient Education 08/27/2023 13:15:47 General Anesthesia, [...] have someone help care for you until youare awake and alert. Rest as needed. Do [...] what activities are safe for you. Take ksrk-uum-qtxrkqf and prescription medicines only as told by [...] 11/22/2001 Document Revised: 08/19/2018 Document Reviewed: 04/01/2018 [employer] Patient Education 2020 Podcast Ready. 08/27/2023 13:15:43 Nausea and Vomiting, Adult Nausea [...] water added (diluted fruit juice). Eat bland, rmmq-oj-nngnyr foods in small amounts as you are able. These foods include bananas, applesauce, rice, lean meats, toast, and crackers. Avoid fluids that contain a lot of sugar or caffeine, such as energy drinks, sports drinks, and soda. Avoid alcohol. Avoid spicy or fatty foods. General instructions Take gecc-bfd-bnzugef and prescription medicines only as told by your health care provider. Drink enough fluid to keep your urine pale yellow. Wash your hands often using soap and water. If soap and water are not available, use hand assembly associate. Make sure that all people in your [...] you are about to vomit. As nausea getsworse, it can lead to vomiting. Vomiting can make you feel weak and cause you to become dehydrated. Follow instructions from your health care provider about eating and drinking to prevent dehydration. Take hppq-beq-mnlamrt and prescription medicines only as told by [...] 08/16/2006 Document Revised: 12/08/2019 Document Reviewed: 01/24/2019 [employer] Patient Education 2020 Podcast Ready. 08/27/2023 13:15:03 Endometrial Ablation, Care After Endometrial [...] are safe for you. General instructions Take pggk-olo-rkmibcj and prescription medicines only as told by [...] 06/28/2018 Document Revised: 12/07/2019 Document Reviewed: 06/28/2018 [employer] Patient Education 2020 Podcast Ready. 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 However, you should always follow any specific instructions given to you by your surgeon. Pain Medication Please follow the directions on the label of your medication and use your discharge medication listprovided by the hospital. Do not take this medication on an empty stomach. This may cause a stomachache. Use a stool softener or gentle laxative (milk of magnesia) if needed. Constipation is not uncommon while taking oral pain medication. Use less of any narcotic pain medication as soon as your pain allows. You may take rzla-tqy-xsloixhbvid medication if you no longer need your prescribed pain medication. Tjgp-tel-ejplqkj pain medications are Tylenol (acetaminophen) or Advil (ibuprofen). Do not take Tylenol if you are still taking Comstock or Percocet. They are the same type [...] to drive for one to six weeks dependingon what surgery and incisions you have. Do [...] soaking two pads in one hour, that isnot normal. Call your surgeon. No tampons or [...] have. Follow Up Care 08/02/2023 10:09:45 With:ERNA TROTTER MD Address: [address] [place] [address] [address] [place] [address] [phone] When:Within 2 Week(s) [facility] 12-29-2023 Note Discharge Instructions Thank you for allowing [facility] to assist you with your healthcare needs. The following is importantdischarge information regarding your hospital visit. Your Care Team CATRACHITO MERCEDES MD Your Diagnosis Crohn's disease Family history of endometriosis Female infertility Postoperative pain What to do next Follow Up Appointments Follow Up with ERNA TROTTER MD When In 2 weeks Where: [address] [facility] [address] [place] [address] [phone] The Following Activity and Diet Have Been [...] post-operative/post-procedure diet instructions provided by your physician's office.,08/27/23 13:12:00 EST The Following Equipment Has Been Ordered for You Discharge Home Equipment Discharge Wound Care - Ordered -- may remove steri strips in 7-10 days., 08/27/23 13:12:00 EST Allergies NKA Medications Please ask your primary doctor or pharmacist before taking any other medication not listed, including over the counter drugs, herbal medications, vitamins and or supplements as they may interact withyour home medications. What How Much When Why Instructions Last Dose New acetaminophen (Tylenol Extra Strength 500 mg oraltablet) 1 tab(s) by mouth Every 4 hours Duration: 14 Days Refills: 1 Pickup at [id number] New acetaminophen-oxyCODONE (Percocet 5 mg-325 mg oral tablet) 1 tab(s) by mouth Every 4 hours as needed for for pain Postoperative pain Duration: 7 Days Pickup at [facility][id number] New ibuprofen (ibuprofen 800 mg oral tablet) 1 tab(s) by mouth Every 8 hours Duration: 14 Days Pickup at [facility] #[id number] New ondansetron (Zofran 4 mg oral tablet) 1 tab(s) by mouth Every 6 hours as needed for Nausea/Vomiting Duration: 5 [id number] Unchanged cholecalciferol (Vitamin D3) 25 Microgram by [...] Milliliter Subcutaneous Every 8 weeks Pharmacy Information [facility] #[id number]: [address] [place], [place] [phone] Please take this list to your next [...] have someone help care for you until youare awake and alert. Rest as needed. Do [...] what activities are safe for you. Take zvvq-eyp-fgxgfre and prescription medicines only as told by [...] 11/22/2001 Document Revised: 08/19/2018 Document Reviewed: 04/01/2018 [employer] Patient Education 2020 Podcast Ready. Nausea and Vomiting, Adult Nausea is the [...] water added (diluted fruit juice). Eat bland, lwbr-gx-kwrhpl foods in small amounts as you are able. These foods include bananas, applesauce, rice, lean meats, toast, and crackers. Avoid fluids that contain a lot of sugar or caffeine, such as energy drinks, sports drinks, and soda. Avoid alcohol. Avoid spicy or fatty foods. General instructions Take ikms-ock-nsjmube and prescription medicines only as told by your health care provider. Drink enough fluid to keep your urine pale yellow. Wash your hands often using soap and water. If soap and water are not available, use hand assembly associate. Make sure that all people in your [...] you are about to vomit. As nausea getsworse, it can lead to vomiting. Vomiting can make you feel weak and cause you to become dehydrated. Follow instructions from your health care provider about eating and drinking to prevent dehydration. Take wdlg-wjs-eebnmmu and prescription medicines only as told by [...] 08/16/2006 Document Revised: 12/08/2019 Document Reviewed: 01/24/2019 [employer] Patient Education 2020 Podcast Ready. Endometrial Ablation, Care After This sheet gives [...] are safe for you. General instructions Take yhxn-mpv-tcwvwtv and prescription medicines only as told by [...] 06/28/2018 Document Revised: 12/07/2019 Document Reviewed: 06/28/2018 [employer] Patient Education 2020 Podcast Ready. What to Do After Your Gynecology Surgery This sheet will give you general information on what to do when you are home after surgery. However, you should always follow any specific instructions given to you by your surgeon. Pain Medication Please follow the directions on the label of your medication and use your discharge medication listprovided by the hospital. Do not take this medication on an empty stomach. This may cause a stomachache. Use a stool softener or gentle laxative (milk of magnesia) if needed. Constipation is not uncommon while taking oral pain medication. Use less of any narcotic pain medication as soon as your pain allows. You may take oxml-zfo-gawczlnyhrk medication if you no longer need your prescribed pain medication. Lnep-mba-jystgnr pain medications are Tylenol (acetaminophen) or Advil (ibuprofen). Do not take Tylenol if you are still taking Comstock or Percocet. They are the same type [...] to drive for one to six weeks dependingon what surgery and incisions you have. Do [...] soaking two pads in one hour, that isnot normal. Call your surgeon. No tampons or [...] to receive it can visit one of [facility] vaccine clinics. There are many vaccine clinic locations within the [facility]. For locations and available times, please visit [email or web address].[place].gov/. It is important to note that some COVID mobile vaccine clinics are held outdoors and may be canceled in rainy or stormy conditions. To learn more about pediatric vaccinations (ages 5-11), we invite you to visit the [employer] webpage. [email or web address]/[email or web address] [email or web address] learn more about the COVID-19 vaccine, we invite you to visit the CDC website for a list of frequently asked questions.https://www.cdc.gov/coronavirus/2019-ncov/vaccines/faq.html myWebRoom Patient Portal Access Instructions: Stay connected with your healthcare team and access your personal medical information anytime with the [facility]Room Patient Portal. Please follow the directions below to create your myWebRoom account: 1.Access the email account you provided upon registration to the hospital/physician office.2.Look for an invitation email from [facility].3.Open the email and access the invitation link: AcceptInvitation to TejinderMiFi.4.Fill in the required barnes to create your account. To access your account, visit Smarp/[email or web address]. Click the blue button labeled Access Patient Portal and then log in with the username and password that you created in the steps above. You will be able to view your test results, lab results, a summary of your visits, upcoming appointments and more. There is also a convenient messaging option where you can send secure messages to your p kaitlinvider. In addition, you will have the ability to download any documents or summaries to your computer and/or send the information securely to a physician. Remember that your healthcare information is confidential, so carefully consider who you will allowto register on the [facility] Patient Portal for access to your information. You can also access the [facility] Patient Portal on the [facility] nancie. Simply click on Patient Portal and then log into your account. If you would like to receive a full copy of your medical records, please contact the [facility] Medical Records Department by calling [phone], Wednesday through Wednesday between 8 a.m. and 4:30 p.m. HOW TO SAFELY DISPOSE OF PRESCRIPTION MEDICATIONS Please use one of the following methods to safely dispose of your unused medications. 1.Use a drug disposal kit: the drug disposal pouch allows you to safely discard your old and unuseddrugs. Ask your nurse to give you one when you are discharged.2.Visit a local take-back location: Many local pharmacies and police departments have programs that collect old and unwanted prescriptiondrugs. Call your local pharmacy or go to http://Manifact.Domains Income/4W4Bo6l to find one close to you.3.Make use of household items: Use cat litter or old coffee grounds to dispose medications if other options arenot available. Mix your drugs with these household products, seal them in an airtight container andthrow it into the garbage. 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 I have received a written copy of the plan/instructions. If I have questions, I am aware that I should contact my doctor. Patient/Access Consultant Signature: Date/Time: Relationship to Patient: Witness Name/Signature: Date/Time: [facility]12-29-2023 Note Date of Service 08/27/23 History and [...] patient stated satisfaction. Reviewed postop instructions. Erna Trotter MD Digitally Signed by ERNA TROTTER MD on 08/27/2023 11:50 AM [facility]12-29-2023 Anesthesiology Consult note Patient: MARIXA BRAGA Age: 28 years Sex: Female : 1995 Associated Diagnoses: None Author: CHELLY BUSTAMANTE APRN-WEIGHT AND TEST BAR CLERK Preoperative Information Time of last food or [...] list: Medical Crohn disease / SNOMED CT 45921270 / Confirmed Wellness examination / SNOMED CT 971871937 / Confirmed Weight gain / SNOMED CT 85167741 / Confirmed, Active Problems (4) Crohn disease GERD (gastroesophageal reflux disease) Weight gain Wellness examination Histories Past Medical History: Resolved ([id number]): Onset on 07/18/2018 at 23 years. Resolved in 2019 at 23 years. ([id number]): Onset on 07/19/2017 at 22 years. Resolved in 2018 at 22 years. Family History: Anxiety Sister Hypertension Father Heart disease Father Alcoholism Father Depression Father Procedure history: Colonoscopy ([id number]). 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 Current Home Treatments None Special Services and Community Resources None Guardian(s) Information: Romel Marital Status of Patient if Patient Independent [...] Resp Rate 20 br/min (AUG 27 10:13) KIP334 mmHg (AUG 27 10:13) DBP81 mmHg (AUG 27 10:13) Measurements from flowsheet : Measurements 08/27/2023 10:13 EST Height 160 cm Admission Weight 75 kg [place] Body Weight 52.38 kg Admission Body Mass [...] Height 160 cm Admission Weight 75 kg [place] Body Weight 52.38 kg Admission Body Mass [...] EST Designated Person #1 We May Share PHI Romel Amos [phone] Designated Person #1 Relationship Spouse Privacy Restrictions [...] Method Explanation, Printed materials Preferred Spoken Language Nepali Preferred Written Language Nepali Teaching Evaluation No further teaching needed Safety Brochure Information Reviewed Unable to complete Tejinder Watson Video Viewed No Information Given by Patient [...] QC PRGUP Positive . Assessment and Plan [place] [employer] of Anesthesiologists (ASA) physical status classification: Class II. Anesthetic Preoperative Plan Premedication: intravenous. Anesthetic technique: General. Induction: intravenously. Maintenance airway: Oral endotracheal tube. Postoperative pain management: Per surgeon. Risks discussed: nausea, vomiting, sore throat. Informed consent: signed by patient. Digitally Signed by CHELLY BUSTAMANTE on 08/27/2023 11:44 AM [facility]08-11-2023 Telephone encounter Note* Telephone Encounter - Cher Calderon - 04/09/2023 11:53 AM EDT Name of caller: MARIXA Relation to patient: patient Contact phone number: [phone] Appointment scheduled with: LANDY BLAIR Appointment date & time: 05/04/23 @ 7:50 AM Reason for visit (are you having any symptoms) : Low blood pressure, unexpected weight gain Transportation issues/ concerns: NO Special accommodations? ( wheel chair, etc) : NO Current medications: STELARA Any refills need: NO Any chronic conditions the provider should be aware of: CHRON'S, 14 WEEKS [id number] Telephone encounter Note* Telephone Encounter - Cher Calderon - 04/09/2023 11:53 AM EDT In order to comply with the No Surprises Act, [employer]hub is providing you with the following attachments. Any Good Cathy Estimate that may be provided are based on the services you are scheduled toreceive. During your visit, there may be additional services required in order for the provider to complete your plan of care. DECLINED [id number] Miscellaneous Notes* Telephone Encounter - Cher Calderon - 04/09/2023 11:53 AM EDT In order to comply with the No Surprises Act, [employer]hub is providing you with the following attachments. Any Good Cathy Estimate that may be provided are based on the services you are scheduled toreceive. During your visit, there may be additional services required in order for the provider to complete your plan of care. DECLINED documented in this [facility]08-11-2023 Miscellaneous Notes* Telephone Encounter - Cher Calderon - 04/09/2023 11:53 AM EDT Name of caller: MARIXA Relation to patient: patient Contact phone number: [phone] Appointment scheduled with: LANDY BLAIR Appointment date & time: 05/04/23 @ 7:50 AM Reason for visit (are you having any symptoms) : Low blood pressure, unexpected weight gain Transportation issues/ concerns: NO Special accommodations? ( wheel chair, etc) : NO Current medications: STELARA Any refills need: NO Any chronic conditions the provider should be aware of: CHRON'S, 14 WEEKS documented in this [facility]08-07-2023 Telephone encounter Note* Telephone Encounter - Cher Calderon - 04/05/2023 3:44 PM EDT PATIENT SUBMITTED ONLINE APPOINTMENT REQUEST FOR A PCP APPOINTMENT. SPOKE TO PATIENT AND GOT SOME INFORMATION BUT SHE HAD TO GET OFF THE LINE AND STATES SHE WILL C/B. OK TO SCHEDULE WITH ANY PROVIDERWHEN PATIENT CALLS BACK. FirstName : Marixa LastName : OMI Pronouns : PronounsOther : Email : [email or web address] Phone : [phone] Birthdate : 1995 12:00:00 AM BestTimeToCallBack : Afternoon AppointmentDate : Kirk PhysicianRequested : Symptoms : Weight gain, low blood pressure OptIn : False [id number] Miscellaneous Notes* Telephone Encounter - Cher Calderon - 04/05/2023 3:44 PM EDT PATIENT SUBMITTED ONLINE APPOINTMENT REQUEST FOR A PCP APPOINTMENT. SPOKE TO PATIENT AND GOT SOME INFORMATION BUT SHE HAD TO GET OFF THE LINE AND STATES SHE WILL C/B. OK TO SCHEDULE WITH ANY PROVIDERWHEN PATIENT CALLS BACK. FirstName : Marixa LastName : OMI Pronouns : PronounsOther : Email : [email or web address] Phone : [phone] Birthdate : 1995 12:00:00 AM BestTimeToCallBack : Afternoon AppointmentDate : Kirk PhysicianRequested : Symptoms : Weight gain, low blood pressure OptIn : False [facility] note No data available for this section [facility] Evaluation + Plan note Future Appointments Appointment Date:08/16/2023 10:45:00 AM Scheduled Provider:CATRACHITO MERCEDES MD Location:[facility] Appointment Type:PC OV Follow Up [facility] evaluation note* Diagnosis Onset Date Resolution Status Ulcerative colitis acute Ulcerative colitis [facility] Work Phone: evaluation note* Diagnosis Onset Date Resolution Status Ulcerative colitis acute [facility] Work Phone: Evaluation note* Diagnosis Onset Date Resolution Status Chronic GERD chronic Ulcerative colitis [facility] Work Phone: evaluation note* Diagnosis Onset Date Resolution Status Endometriosis acute Infertility [facility] Work Phone: evaluooebh note* Diagnosis Female infertility- Primary Female infertility of unspecified origin Endometriosis Endometriosis, site unspecified documented in this encounter [facility] Work Phone: Evaluation note* Diagnosis Fertility testing- Primary Encounter for preprocedural laboratory examination Female fertility problem [N97.9] documented in this encounter [facility] Work Phone: Evaluation note* Diagnosis Endometritis- Primary Unspecified inflammatory disease of uterus Fertility testing documented in this encounter [facility] Work Phone: Evaluation note* Diagnosis Endometritis- Primary Unspecified inflammatory disease of uterus Fertility testing documented in this encounter [facility] Work Phone: Evaluation note* Diagnosis Female infertility Female infertility of unspecified origin documented in this encounter [facility] Work Phone: [phone] note* Diagnosis Female infertility Female infertility of unspecified origin documented in this encounter [facility] Work Phone: [phone] note* Diagnosis Female infertility Female infertility of unspecified origin documented in this encounter [facility] Work Phone: [phone] note* Diagnosis Encounter for assisted reproductive fertility cycle Encounter for assisted reproductive fertility procedure cycle documented in this encounter [facility] Work Phone: [phone] note* Diagnosis Encounter for assisted reproductive fertility cycle Encounter for assisted reproductive fertility procedure cycle documented in this encounter [facility] Work Phone: [phone] note* Diagnosis Female infertility Female infertility of unspecified origin documented in this encounter [facility] Work Phone: [phone] note* Diagnosis Female infertility Female infertility of unspecified origin documented in this encounter [facility] Work Phone: [phone] note* Diagnosis Fertility testing- Primary Female infertility Female infertility of unspecified origin Screening for diabetes mellitus Encounter for Rh blood typing Encounter for blood typing Screening for STDs (sexually transmitted diseases) Screening examination for venereal disease Screening for thyroid disorder documented in this encounter [facility] Work Phone: [phone] note* Diagnosis Encounter for assisted reproductive fertility cycle Encounter for assisted reproductive fertility procedure cycle documented in this encounter [facility] Work Phone: [phone] note* Diagnosis Encounter for assisted reproductive fertility cycle Encounter for assisted reproductive fertility procedure cycle documented in this encounter [facility] Work Phone: [phone] note* Diagnosis Healthcare maintenance- Primary Hypovitaminosis D Unspecified vitamin D deficiency Polycystic ovarian disease Polycystic ovaries Crohn's disease of colon without complication (Multi) documented in this encounter [facility] Work Phone: [phone] note* Diagnosis Healthcare maintenance- Primary Hypovitaminosis D Unspecified vitamin D deficiency Polycystic ovarian disease Polycystic ovaries Crohn's disease of colon without complication (Multi) Female infertility Female infertility of unspecified origin documented in this encounter [facility] Work Phone: Evaluation note* Diagnosis Healthcare maintenance- Primary Hypovitaminosis D Unspecified vitamin D deficiency Polycystic ovarian disease Polycystic ovaries Crohn's disease of colon without complication (Multi) Plantar wart- Primary Dermatologic problem documented in this encounter [facility] Work Phone: Evaluation note* Diagnosis Healthcare maintenance- Primary Hypovitaminosis D Unspecified vitamin D deficiency Polycystic ovarian disease Polycystic ovaries Crohn's disease of colon without complication (Multi) Encounter for assisted reproductive fertility cycle Encounter for assisted reproductive fertility procedure cycle documented in this encounter [facility] Work Phone: Evaluation note* Diagnosis Healthcare maintenance- Primary Hypovitaminosis D Unspecified vitamin D deficiency Polycystic ovarian disease Polycystic ovaries Crohn's disease of colon without complication (Multi) Encounter to determine viability of , single or unspecified fetus- Primary documented in this encounter [facility] Work Phone: Evaluation note* Diagnosis Healthcare maintenance- Primary Hypovitaminosis D Unspecified vitamin D deficiency Polycystic ovarian disease Polycystic ovaries Crohn's disease of colon without complication (Multi) Vaginal discharge- Primary Leukorrhea, not specified as infective documented in this encounter [facility] Work Phone: Evaluation note* Diagnosis Healthcare maintenance- Primary Hypovitaminosis D Unspecified vitamin D deficiency Polycystic ovarian disease Polycystic ovaries Crohn's disease of colon without complication (Multi) Encounter to determine viability of , single or unspecified fetus- Primary documented in this encounter [facility] Work Phone: History and physical note Author Domo Weaver [facility] October 01, 2023 11:37am Note Date/Time October 01, 2023 1 1:37am [facility] Medical Records Department [address] [place] [id number] History & Physical Exam 10/01/23 1137 MR#: [id number] Acct: [id number] Name: MARIXA BRAGA Rep #:[id number] : 1995 28 From: Domo Weaver DO PCP: CATRACHITO MERCEDES Status[place] [place]: [place] [address] History and Physical Date of Admission: 10/01/23 MARIXA BRAGA, is a 28 F who presents to the office today for *BGI established 07.28.21 previously diagnosed with IBD, Crohn?s versus UC/proctitis extending to sigmoid colon/pancolitis following colonoscopy; treated with balsalazide until 2019. Reports frequent LGIB. Humira started 2018 and currently taking QWeek OV 09.10.21 continues with Humira Qweek and is doing well from a GI standpoint. She has concerns that her UC is impairing her ability to get as fertility testing was normal for her and her . Start azathioprine OV 10.22.21 Azathioprine unable to be started r/t need for PA. ID Dr. Villagomez established and treated with four months rifampin; OK to continue Humira, do not start azathioprine for one month. OV 03.05.22 possible change of therapy to Stelara. Start hyoscyamine. ? Colonoscopy 05.25.23 cancelled related to . OV 08.03.23 reports loose stools two weeks prior with mucous and blood tinge. Reports recent miscarriage, will possibly require surgical intervention, her OB asked her to skip her Stelara dose; they are not actively trying for children atthis time. ? ESR/CRP Calp/Lact? TB? serum/ab 07.28.21 22/<2.9 --/--? --? 23.7/neg? CBC (anemic), CMP, LDH, IBD 11.20.21 --/--? 61/? +? --/--? Titers 03.05.22 13/<2.9 --/--? --? --/--? apANCA H1:160, CMV IgG+ CBC (anemic), CMP, LDH, CHARLES comp, celiac, SABRINA, GAME? Stool c.difficile, EP, O/P, giardia WNL 04.10.22? Stelara Infusion?? 11.16.22 4/<2.9?? 54/? --? 8.4/neg? CBC, CMP ROS Const Constitutional: Positive for fatigue ENT ENT: No difficulty swallowing Gastro GI: No abdominal pain, belching, bloating, change in bowel habits, change in stool character, coffee ground emesis, constipation, cramping, diarrhea, heartburn, difficulty swallowing, feeling full early, excessive flatus, incontinent of stools, Vomiting blood/hematemesis, Blood in stool, loose stools,Black,tarry stools, nausea/dyspepsia, pain with swallowing, vomiting or other Musc Musculoskeletal: No joint pain Skin Skin: No yellowing of the eye or itchy eyes Psych Psychiatric: Positive for anxiety and No depression Endo Endocrine: Positive for fatigue Aller/Imm Allergy/Immunologic: No itchy eyes Nolan/Lymp Hematologic/Lymphatic: No easy bleeding or easy bruising Exam Const General: cooperative, healthy appearing and well developed Nutritional Appearance: average body habitus HENCO Head: normal to inspection Eyes General: appearance normal, both eyes and all related structures Resp Effort & Inspection: normal respiratory effort GI Inspection: normal to inspection Skin General: no rashes or lesions noted Quality Reporting Tobacco Screening ([facility] 138) Smoking Status: Never smoker Assessment and Plan Assessment and Plan (1) Ulcerative colitis: Status: Chronic Qualifiers: Ulcerative colitis location: ulcerative rectosigmoiditis Digestive disease complication type: without complication Qualified Code(s): K51.30 - 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 Case discussed with Dr Weaver. Symptomsmay be due to recent rifampin treatment for latent TB.We will check labs for inflammation, CMV, CBC, CMP, Ig; stool tests for infection and inflammation. Hold off on azathioprine until we rule out anything other than UC flare. Rx for hyoscyamine for the abd pain/cramping. Rx for budesonide foam per rectum BID x 2wks, then qd x 2 wks. f/u next available which is approx 6-8 wks. (2) Chronic GERD: Status: Chronic Plan: With several history 28-year-old with several year history of ulcerative colitisrefractory to Humira therapy currently on Stelara. She was positive for latent tuberculosis and completed 6-month treatment of rifampin. She is not steroid na?ve. She has not had a flare in several months. She did have some urgency with some mucousy stools when [place] was in [place] but thatonly lasted for a couple days when she needed Lomotil. Her last fecal calprotectin was normal at 51. We will need to check stool studies and inflammatory markers along with repeating her colonoscopy. Recommendations are for her to not stop immunosuppression at this time as even quiescent inflammation from inflammatory bowel disease can affect fertility. I had a long conversation with her and her regarding the natural history of ulcerative colitis. He is to stop immunosuppression in the third trimester. Her r did have some questions regarding infertility due to the fact thatthey recently had a miscarriage. I went over the natural history of ulcerative colitis and fertility and told them that the major risk factor was uncontrolled inflammation. Also risk factors were previous steroid usage, history of surgery, obesity, active perineal disease contribute to infertility. Available data do not indicate an adverse effect on fertility from medication against IBD, but active disease and flares could impair fertility in other ways,including systemic effects or local inflammation involving reproductive organs, associated depression, malnutrition, and anaemia, which may confound the abilityto conceive. Orders: Orders Erythrocyte Sed Rate Today K21.9 - Gastro-esophageal reflux disease without esophagitis, K51.90 - Ulcerative colitis, unspecified, without complications CRP Today K21.9 - Gastro-esophageal reflux disease without esophagitis, K51.90 -Ulcerative colitis, unspecified, without complications Miscellaneous Lab Procedure Today K21.9 - Gastro-esophageal reflux disease without esophagitis, K51.90 - Ulcerative colitis, unspecified, without complications Calprotectin, Stool Today K21.9 - Gastro-esophageal reflux disease without esophagitis, K51.90 - Ulcerative colitis, unspecified, without complications Stool Lactoferrin/WBC Today K21.9 - Gastro-esophageal reflux disease without esophagitis, K51.90 - Ulcerative colitis, unspecified, without complications, K58.9 - Irritable bowel syndrome without diarrhea Quantiferon TB-Gold+ Today K21.9 - Gastro-esophageal reflux disease without esophagitis, K51.90 - Ulcerative colitis, unspecified, without complications EGD 10/01/23 K21.9 - Gastro-esophageal reflux disease without esophagitis, K51.90 - Ulcerative colitis, unspecified, without complications Colonoscopy 10/01/23 K21.9 - Gastro-esophageal reflux disease without esophagitis, K51.90 - Ulcerative colitis, unspecified, without complications Medications: Changed From omeprazole 20 mg PO BID To omeprazole 20 mg PO BID 90 days 180 caps 3RF I have examined the patient and the H&P has been reviewed. There are no clinicalchanges since date of exam. 10/01/23 1137 <Electronically signed by Domo Weaver DO> Cosigner Signature (if applicable): CC: CATRACHITO MERCEDES; Domo Weaver DO~ Signed [facility] Work Phone: History of Present illness Narrative* Sarah Billingsley Srinivas, TABLET MAKING MACHINE OPERATOR-SUGAR REFINER - 01/11/2025 2:00 PM EDT Visit Type: In Person MD reviewed, Authorization status not noted. OB Scan Ectopic risk factor: yes endometriosis PGTA/PGTM: no Blood type: B Method of Conception: Frozen Embryo transfer Day 5 trasfer 4 AA Reviewed results from OB ultrasound today and results reviewed with pt as follows: OB Scan results: Concep??on Concep??on: IVF Embryo Transfer Embryo transfer 12/26/2024 IVF / ET: 5 d 5 w + 0 d 09/13/2025 Stated GIL 5 w + 0 d 09/13/2025 Assigned da??ng based on the IVF / ET date, selected on 01/11/2025 5 w + 0 d 09/13/2025 Assessment Gesta??onal sac: visualized. Loca??on: intrauterine Yolk sac: visualized Embryo: not visualized Cardiac ac??vity: No Pole seen Early placenta: circumferen??al GS 5.1 mm -/- Papaioannou YS 1.0 mm Detailed discussion with patient about her scan results, , and next steps: No Pain, No bleeding. Continue prednisone - 10 weeks 6 days.-02/21/25 Baby aspirin 81mg will be taken off by OB probably around 12 weeks. Plan: Reviewed medications in detail. She will continue PNV. Reviewed supplemental progesterone, route and dose, reviewed dates of cessation. 10 weeks 6 days.-02/21/25 Discussed with patient any concerns and discussed establishing care with an OB. Will provide recommendations if she desires. Advised to call with bleeding, pain or concerns. Ultrasound results and Plan of care reviewed with Dr. Gavino Tristan MD Fertility Plan Update: Repeat scan in 1 week Intimate Exam Performed: No, an intimate exam was not performed at this encounter. Sarah Espino 01/11/2025 1:31 PM [facility] Hospital Discharge instructions No data available for this section [facility] Progress note No data available for this section [facility] Reason for referral (narrative)No reason for referral information availableWLicking [facility] Hospital Work Phone: Reason for visit Narrative* Other Medical (Routine) - Authorized Specialty Diagnoses / Procedures Referred By Denny t Referred To Contact Reproductive Endocrinology and Infertility Diagnoses Fertility testing Procedures Hysteroscopy diagnostic Imelda Pollard MD [address] [place] [address] Phone: tel: fax: Referral ID Status Reason Start Date Expiration Date V isits Requested Visits Authorized [id number] Authorized 07/14/2024 07/14/2025 1 1 [facility] Work Phone: Reason for visit Narrative* Imaging (Routine) - Authorized Specialty Diagnoses / Procedures Referred By Contac t Referred To Contact Radiology Diagnoses Female infertility Procedures TERRENCE US Pelvis Limited Follicles - Follicle Studies Performed Alejandra Chávez MD [address] [facility] Sobeida Dhaliwal [address] [address] Phone: tel: fax: Referral ID Status Reason Start Date Expiration Date Visits Requested Visits Authorized [id number] Authorized Perform Procedure 08/17/2025 8 8 [facility] Work Phone: reason for visit Narrative* Procedure (Routine) - Authorized Specialty Diagnoses / Procedures Referred By Contact Referred To Contact Reproductive Endocrinology and Infertility Diagnoses Encounter for assisted reproductive fertility cycle Procedures Egg Retrieval IA FOLLICLE PUNCTURE OOCYTE RETRIEVAL ANY METHOD CHG US GUIDANCE ASPIRATION OVA IMG S&I CHG ASSTD FERTILIZATION MICROTQ <= 10 OOCYTES CHG ASSTD FERTILIZATION MICROTQ > 10 OOCYTES CHG CRYOPRSRV EMBRYO CHG BX OOCYTE POLR BDY/MANDI BLST MICROTQ <= 5 MANDI CHG BX OOCYTE MICROTQ >5 MANDI CHG EXTND CUL OOCYTE/EMBRYO 4-7 DAYS CHG THAWING CRYOPRESERVED OOCYTES EACH ALIQUOT CHG CRYOPRESERVATION MATURE OOCYTE(S) CHG CUL OOCYTE/EMBRYO <4 DAYS CHG SPRM ISOL CPLX PREP INSEMINATION/DX SEMEN GRAHAM CHG SPRM ISOL SMPL PREP INSEMINATION/DX SEMEN GRAHAM CHG THAWING CRYOPRESERVED SPERM/SEMEN EACH ALIQUOT CHG SPRM ID FROM TSTIS TISS FRSH/CRYOPRSRVD CHG SPRM ID FROM ASPIR OTH/THN SEMINAL Katelyn Benitez, TABLET MAKING MACHINE OPERATOR-SUGAR REFINER [address] [place] [address] Phone: tel:[phone] fax:[phone] Referral ID Status Reason Start Date Expiration Date V isits Requested Visits Authorized [id number] Authorized 09/12/2024 09/12/2025 1 1 [facility] Work Phone: Reason for visit Narrative* Imaging (Routine) - Authorized Specialty Diagnoses / Procedures Referred By Contac t Referred To Contact Radiology Diagnoses Female infertility Procedures TERRENCE US Pelvis Limited Follicles - Follicle Studies Performed Alejandra Chávez MD [address] [facility] Sobeida Dhaliwal [address] [address] Phone: tel: fax: Referral ID Status Reason Start Date Expiration Date Visits Requested Visits Authorized [id number] Authorized Perform Procedure 11/07/2024 11/07/2025 8 8 [facility] Work Phone: Realta for visit Narrative* Procedure (Routine) - Authorized Specialty Diagnoses / Procedures Referred By Contact Referred To Contact Reproductive Endocrinology and Infertility Diagnoses Encounter for assisted reproductive fertility cycle Procedures Egg Retrieval IA FOLLICLE PUNCTURE OOCYTE RETRIEVAL ANY METHOD CHG US GUIDANCE ASPIRATION OVA IMG S&I CHG ASSTD FERTILIZATION MICROTQ <= 10 OOCYTES CHG ASSTD FERTILIZATION MICROTQ > 10 OOCYTES CHG CRYOPRSRV EMBRYO CHG BX OOCYTE POLR BDY/MANDI BLST MICROTQ <= 5 MANDI CHG BX OOCYTE MICROTQ >5 MANDI CHG EXTND CUL OOCYTE/EMBRYO 4-7 DAYS CHG THAWING CRYOPRESERVED OOCYTES EACH ALIQUOT CHG CRYOPRESERVATION MATURE OOCYTE(S) CHG CUL OOCYTE/EMBRYO <4 DAYS CHG SPRM ISOL CPLX PREP INSEMINATION/DX SEMEN GRAHAM CHG SPRM ISOL SMPL PREP INSEMINATION/DX SEMEN GRAHAM CHG THAWING CRYOPRESERVED SPERM/SEMEN EACH ALIQUOT CHG SPRM ID FROM TSTIS TISS FRSH/CRYOPRSRVD CHG SPRM ID FROM ASPIR OTH/THN SEMINAL Eli, Katelyn R, TABLET MAKING MACHINE OPERATOR-SUGAR REFINER [address] [place] [address] Phone: tel: fax:[phone] Referral ID Status Reason Start Date Expiration Date V isits Requested Visits Authorized [id number] Authorized 10/19/2024 10/19/2025 1 1 [facility] Work Phone: reason for visit Narrative* Imaging (Routine) - Authorized Specialty Diagnoses / Procedures Referred By Contandrea t Referred To Contact Radiology Diagnoses Female infertility Procedures TERRENCE US Endometrial Lining Check Imelda Pollard MD [address] [place] [address] Phone: tel: fax: Referral ID Status Reason Start Date Expiration Date Visits Requested Visits Authorized [id number] Authorized Perform Procedure 11/28/2024 11/28/2025 5 5 [facility] Work Phone: Reason for visit Narrative* Procedure (Routine) - Authorized Specialty Diagnoses / Procedures Referred By Denny t Referred To Contact Reproductive Endocrinology and Infertility Diagnoses Encounter for assisted reproductive fertility cycle Procedures Embryo Transfer IA EMBRYO TRANSFER INTRAUTERINE CHG ULTRASONIC GUIDANCE INTRAOPERATIVE CHG THAWING CRYOPRESERVED EMBRYO CHG ASSTD EMBRYO HATCHING MICROTQS ANY METH CHG PREPJ EMBRYO TR Imelda Pollard MD [address] [place] [address] Phone: tel: fax: Referral ID Status Reason Start Date Expiration Date V isits Requested Visits Authorized [id number] Authorized 11/30/2024 08/29/2025 1 1 [facility] Work Phone: Summary Purpose Family History No Family History Records Found Relationship Condition Age at Onset Recorded Date/T karyna grandmother Diabetes mellitus Unknown grandfather Diabetes mellitus Unknown Relationship Condition Age at Onset Recorded Date/T karyna grandmother Diabetes mellitus Unknown grandfather Diabetes mellitus Unknown father Hypertension Unknown Hyperlipidemia Unknown Coronary artery disease Unknown Advance Directives No Advanced Directives Records Found Advance Directive Response Recorded Date/ Time Living Will Yes June 25 12:50pm Power of Automation Clerk Yes June 25, 2023 12:50pm Advance Directive Response Recorded Date/ Time Name of Medical Power of Automation Clerk - MAURO LD September 29, 2023 8:44am Living Will Yes September 29 8:44am Power of Automation Clerk Yes September 29, 2023 8:44am Advance Directive Response Recorded Date/ Time Name of Medical Power of Automation Clerk - MAURO LD September 29, 2023 9:44am Living Will Yes September 29 9:44am Power of Automation Clerk Yes September 29, 2023 9:44am Advance Directive Response Recorded Date/ Time Living Will Yes September 29 9:44am Do you have a Healthcare Power of Automation Clerk? Yes September 29, 2023 9:44am Chief Complaint and Reason for Visit Chief Complaint ESTABLISH W/ NEW GI AFTER MOVING TO [place] 6 WK FU INT LABS Reason for Visit Ulcerative colitis Ulcerative colitis Chief Complaint 6 WK FU INT LABS EORDER- CHEST XRAY Reason for Visit Ulcerative colitis Chief Complaint INT LABS EORDER- CHEST XRAY FU E-ORDER Reason for Visit Ulcerative colitis Chief Complaint FU E-ORDER STELARA (WEIGHT 70KG) Reason for Visit Ulcerative colitis Chief Complaint FU INT LABS Reason for Visit Chronic GERD Ulcerative colitis Chief Complaint Fertility Consult EORDER - STOOL Reason for Visit Endometriosis Infertility Chief Complaint Admit Date 1 Y FU January 01, 2025 7:22am EORDER January 06, 2025 8:19a m Reason for Visit Admit Date Chronic GERD January 01, 2025 7:22am Ulcerative colitis January 01, 2025 7:22am Chief Complaint Admit Date 1 Y FU January 01, 2025 7:22am EORDER January 06, 2025 8:19a m Pre new ob, confirm preg, vitals December 12:46pm Additional Source Comments INFORMATION SOURCE (unrecogn ized section and content) DATE CREATED AUTHOR 07/01/2019 [facility] DATE CREATED AUTHOR AUTHOR'S ORGANIZ ATION 04/10/2023 [facility] DATE CREATED AUTHOR AUTHOR'S ORGANIZ ATION 11/26/2023 [facility] ([place]) DATE CREATED AUTHOR AUTHOR'S ORGANIZ ATION 12/22/2024 [facility] DATE CREATED AUTHOR AUTHOR'S ORGANIZ ATION 12/22/2024 [facility] DATE CREATED AUTHOR AUTHOR'S ORGANIZ ATION 01/26/2025 [facility] DATE CREATED AUTHOR AUTHOR'S ORGANIZ ATION 01/29/2025 [facility] DATE CREATED AUTHOR AUTHOR'S ORGANIZ ATION 02/01/2025 [facility] Goals (unrecognized section and content) Goals may be documented in a n alternate sectionGoals may be documented in an alternate sectionGoals may be documented in an alternate sectionGoals may be documented in an alternate sectionGoals may be documented in an alternate section No data available for this sectionGoals may be documented in an alternate section No data available for this sectionGoals may be documented in an alternate sectionGoals may be documented in an alternate section Reason for Visit (unrecogniz ed section and content) Reason Onset Date Comments Appointment Request 04/05/2023 Reason Onset Date Comments NO SURPRISE ACT 04/09/2023 Reason Onset Date Comments New Patient 04/09/2023 Reason Comments Follow-up Reason Comments Consult Reason Comments Annual Exam Establish Care Reason Comments Wart Right 3rd toe planta r wart-pt states was treated with ln2 at [facility]. Reason Comments Vaginal Discharge Care Teams (unrecognized sec tion and content) Team Status: Active Member Role Status Dates No Primary Care Physician Family Provider Active CATRACHITO MERCEDES Primary Care Provider Active Team Status: Inactive Member Role Status Dates No Primary Care Physician Primary Care Provider, Refer ring Provider Active Dr. Domo Weaver DO Attending Provider Active Team Status: Inactive Member Role Status Dates Dr. Domo Weaver DO Attending Provider, Referring Provider Active MAGO WINSTON Primary Care Provider Active Team Status: Active Member Role Status Dates MAGO WINSTON Primary Care Provider Active Dr. Domo Weaver DO Attending Provider, Referring Provider Active Team Status: Active Member Role Status Dates Dr. Domo Weaver DO Attending Provider, Other Prov ider Active MAGO WINSTON Primary Care Provider, Referring Prov ider Active Team Status: Inactive Member Role Status Dates Dr. Domo Weaver DO Attending Provider Active MAGO WINSTON Primary Care Provider, Referring Prov ider Active Team Status: Inactive Member Role Status Dates MAGO WINSTON Primary Care Provider Active Dr. Domo Weaver DO Attending Provider, Referring Provider Active Team Status: Inactive Member Role Status Dates No Primary Care Physician Referring Provider Active Iesha Lo CNM Attending Provider Active MAGO WINSTON Primary Care Provider Active Team Status: Active Member Role Status Dates Iesha Lo CNM Attending Provider, Referring Pro vider Active Team Status: Inactive Member Role Status Dates Iesha Lo CNM Attending Provider, Referring Pro vider Active Outreach Nurse Relationship Specialty Start Date End Date Amy Cherry RN Registered Nurse 07/17/24 Outreach Nurse Relationship Specialty Start Date End Date Amy Cherry RN Registered Nurse 07/17/24 Outreach Nurse Relationship Specialty Start Date End Date Tsiros, Amy, RN Registered Nurse 07/17/24 Outreach Nurse Relationship Specialty Start Date End Date [facility]Amy das, RN Registered Nurse 07/17/24 Outreach Nurse Relationship Special[facility]/17/[facility] Outreach Nurse Relationship Specialty Start Date End Date [facility]Amy das, RN Registered Nurse 07/17/24 Outreach Nurse Relationship Specialty Start Date End Date [facility]thiago Amy, RN Registered Nurse 07/17/24 Outreach Nurse Relationship Specialty Start Date End [facility] Registered Nurse 07/17/24 Outreach Nurse Relationship Specialty Start Date End Date [facility] Amy, RN Registered Nurse 07/17/24 Outreach Nurse Relationship Specialty Start Date End Date [facility]thiago Amy, RN Registered Nurse 07/17/24 Outreach Nurse Relationship Specialty Start Date End [facility] Registered Nurse 07/17/24 Outreach Nurse Relationship Specialty [place] [id number] [address] [facility] [address] [place] [address] PCP - General Internal Medicine 12/11/24 [facility]Amy das, RN Registered Nurse 07/17/24 Outreach Nurse Relationship Specialty Start [place] [id number] [address] [address] PCP - General Internal Medicine 12/11/24 [facility] Registered Nurse 07/17/24 Outreach Nurse Relationship Specialty Start [place] [id number] [address] [facility] [address] [place] [address] PCP - General Internal Medicine 12/11/24 [facility] Registered Nurse 07/17/24 Outreach Nurse Relationship Specialty Start [place] [id number] [address] [facility] [address] [place] [address] PCP - General Internal Medicine 12/11/24 Amy Cherry, RN Registered Nurse 07/17/24 Team Status: Active Member Role Status Dates Dr. Catrachito Mercedes MD Primary Care Provider Active Team Status: Inactive Member Role Status Dates Dr. Domo Weaver DO Attending Provider Active Start: January 01, 2025 End: January 01, 2025 Dr. Catrachito Mercedes MD Primary Care Provider Active Start: January 01, 2025 End: January 01, 2025 Dr. Catrachito Mercedes MD Referring Provider Active Start: January 01, 2025 End: January 01, 2025 Team Status: Inactive Member Role Status Dates Dr. Catrachito Mercedes MD Primary Care Provider Active Start: January 06, 2025 End: January 06, 2025 Dr. Domo Weaver DO Attending Provider Active Start: January 06, 2025 End: January 06, 2025 Dr. Domo Weaver DO Referring Provider Active Start: January 06, 2025 End: January 06, 2025 Outreach Nurse Relationship Specialty Start [place] [id number] [address] [facility] [address] [place] [address] PCP - General Internal Medicine 12/11/24 Amy Cherry, RN Registered Nurse 07/17/24 Outreach Nurse Relationship Specialty Start [place] [address] [address] [facility] [address] [place] [address] PCP - General Internal Medicine 12/11/24 Amy Cherry RN Registered Nurse 07/17/24 Team Status: Inactive Member Role Status Dates Dr. Catrachito Mercedes MD Primary Care Provider Active Start: January 26, 2025 End: January 26, 2025 Dr. Catrachito Mercedes MD Referring Provider Active Start: January 26, 2025 End: January 26, 2025 Dr. Carmen Shearer MD Attending Provider Active Start: January 26, 2025 End: January 26, 2025 FOR RECORDS PERTAINING TO PATIENTS WHO ARE [...] BE BASED ON THE PRIMARY CLINICAL RECORDS. [facility] [employer] [facility]. provides no warranty or guarantee of the accuracy or completeness of information in this document.
== END | disposition home or self-care (01) ==
PROVIDERS: PCP Family Medicine; Referring Provider Internal Medicine Gastroenterology; Visit Provider Internal Medicine Gastroenterology
DX: K62.5 Hemorrhage of anus and rectum (principal); K51.30 Ulcerative (chronic) rectosigmoiditis without complications
CPT/HCPCS: 36415; 80053; 85025; 85610; 85652; 86140

== ENCOUNTER → 2025-02-06 | Outpatient (CLI) | payer BC, SELFPAY ==
[2025-02-06 12:26] LABS: Absolute Lymphocyte Count 1.57 X10^3/uL (0.83-4.51); Absolute Neutrophil Count 9.8 X10^3/uL (2.0-7.7); Basophil# 0.05 X10^3/uL; Basophil% 0.4 % (0-1); Eosinophil# 0.21 X10^3/uL; Eosinophils% 1.7 % (0-5); Hematocrit 34.7 % (37-47); Hemoglobin 11.5 g/dL (12.0-15.0); Lymphocyte # 1.57 X10^3/ul (0.83-4.51); Lymphocyte % 12.6 % (19-41); Mean Corp Hgb Conc 33.1 g/dL (32-36); Mean Corpuscular Hgb 30.3 pg (27.0-32.0); Mean Corpuscular Volume 91.3 fL (81-99); Mean Platelet Vol. 11.4 fl (6.2-12.0); Monocyte# 0.72 X10^3/uL; Monocyte% 5.8 % (0-10); NRBC Flagged by Analyzer 0 % (0-5); Neutrophil # 9.83 X10^3/uL (2.7-7.7); Neutrophil % 78.9 % (47-70); POSITIVE COUNT YES; Platelet Count 319 K/mm3 (150-450); RBC Distribution Width CV 13.1 % (11.6-14.6); RBC Distribution Width SD 43.2 fl (35.1-43.9); White Blood Count 12.5 K/mm3 (4.4-11.0)
[2025-02-06 12:33] LABS: Differential Indicated SCAN CRITERIA MET
[2025-02-06 12:59] LABS: HIV Nonreactive (Nonreactive); Hepatitis B Surface Antigen Nonreactive (Nonreactive); Hepatitis C Antibody Nonreactive (Nonreactive); Rubella IgG REAC (Nonreactive); Syphilis Antibodies Nonreactive (Nonreactive)
[2025-02-06 13:00] LABS: Platelet Estimate A (ADEQ); Red Cell Morphology NORM C+C NORMAL (NORM C&C)
[2025-02-06 13:34] LABS: Hemoglobin A1c 5.5 % (<=5.6)
[2025-02-07 21:07] LABS: Chlamydia By Nucleic Acid AMP Negative (Negative); Gonococcus By Nucleic Acid AMP Negative (Negative)
== END | disposition home or self-care (01) ==
PROVIDERS: PCP Family Medicine; Referring Provider Obstetrics & Gynecology; Visit Provider Obstetrics & Gynecology
DX: O99.210 Obesity complicating pregnancy, unspecified trimester (principal); Z3A.00 Weeks of gestation of pregnancy not specified
CPT/HCPCS: 36415; 83036; 85025; 86703; 86762; 86780; 86803; 86850; 86900; 86901; 87086; 87340; 87491; 87591

== ENCOUNTER → 2025-03-10 | Outpatient (CLI) | payer BC, SELFPAY ==
--- OUTSIDE RECORDS SUMMARY | 2025-03-10 08:37 | XMS RPT_ITS | CCD ---
Author Organization 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 Oliveros Attending Provider [phone] Ezequiel VU, MIRELLA-C Imelda Fernández Attending Provider [phone] Care Physician, No Primary Primary Care Provider Unavailable Care Physician, No Primary Referring Provider Un available Care Physician, No Primary Primary Care Provider Unavailable Care Physician, No Primary Referring Provider Un available Ezequiel VU, GOLD BLOWER-C Imelda Fernández Attending Provider [phone] Unavailable Primary Care Provider Unavailabl e Care Physician, No Primary Primary Care Provider Unavailable Care Physician, No Primary Referring Provider Un available Friend, Dr. Oliveros Attending Provider CATRACHITO MERCEDES MD Primary Care Physician FriendDr. Oliveros Other Provider [phone] MAGO, NASTAMICHEL Primary Care Provider Unavailab le MAGO, NASTARAN Referring Provider Unavailable Care Physician, No Primary Primary Care Provider Unavailable Care Physician, No Primary Referring Provider Un available FriendDr. Oliveros Attending Provider [phone] FriendDr. Oliveros Other Provider [phone] MAGO, NASTARAN Primary Care Provider Unavailab le MAGO, NASTARAN Referring Provider Unavailable ERNA TROTTER MD Attending Unavailable ERNA TROTTER MD Consulting Unavailable MAGO BLANCO, CATRACHITO Primary Care Unavailable MAGO BLANCO, CATRACHITO Primary Care Unavailable SHREYA SCOTT Attending Unavail able ERNA TROTTER MD Attending Unavailable MAGO BLANCO, CATRACHITO Primary Care Unavailable MAGO BLANCO, CATRACHITO Attending Unavailable MAGO BLANCO, CATRACHITO Primary Care Unavailable ERNA TROTTER MD Attending Unavailable CATRACHITO MERCEDES MD Primary Care Unavailable Friend, Dr. Oliveros Attending Provider Care Physician, No Primary Referring Provider Un available STEFANIE Lo Attending Provider Unavailable Primary Care Provider Unavailvy Cherry RN, Amy Unavailable Unavailable Jo Ann MARQUEZ, Amy Unavailable Unavailable Denise Ordonez MD Primary Care Provider [phone] MARCIA KISER Attending Unavailable MARCIA KISER Attending Unavailable ANABELL MICHAEL Attending Unava ilDENISE Adler Primary Care Unavailable Friend DO, Dr. Oliveros Attending Provider Mago BLANCO, Dr. Winston Primary Care Provider Mago BLANCO, Dr. Winston Referring Provider Friend , Dr. Oliveros Referring Provider DENISE ORDONEZ Attending Unavailable DENISE ORDONEZ Primary Care Unavailable DENISE ORDONEZ Primary Care Unavailable Manfred BLANCO, Dr. Morales Attending Provider OMITIMELDA Attending Unavailable GAVINO TRISTAN Attending Unavailable FLYCKTIMELDA Referring Unavailable SHO, ALEJANDRA D Referring Unavailable FLYCKT, IMELDA Analilia Referring Unavailable SHO, ALEJANDRA D Referring [...] HERNDON Attending Unavailable KATELYN BENITEZ Referring Unavailable FLYCKTRAYAIMELDA Analilia Referring Unavailable DENISE ORDONEZ Primary Care Unavailable DENISE ORDONEZ Primary Care Unavailable DENISE ORDONEZ Primary Care Unavailable GAVINO TRISTAN Attending Unavailable IMELDA POLLARD Referring Unavailable DENISE ORDONEZ Primary Care Unavailable DENISE ORDONEZ Primary Care Unavailable SARAH ESPINO Referring Unavailable ORDONEZ, DENISE L Primary Care Unavailable SRINIVAS, SARAH L Attending Unavailable ORDONEZ, DENISE L Primary Care Unavailable SRINIVAS, SARAH L Referring Unavailable ORDONEZ, DENISE L Primary Care Unavailable ELI, KATELYN R Attending Unavailable ORDONEZ, DENISE L Primary Care Unavailable ELI, KATELYN R Referring Unavailable ORDONEZ, DENISE L Primary Care Unavailable ELI, KATELYN R Attending Unavailable ORDONEZ, DENISE L Primary Care Unavailable Alejandro WATTS, Mary Beth Attending Provider [phone] Iesha Lo CNM Attending Provider [phone] Manfred BLANCO, Dr. Morales Referring Provider [phone] Dr. Marcia Yen DO Attending Provider Friend, Domo Attending Unavailable Mago, Nastaran Primary Care Unavailable Friend, Domo Referring Unavailable Mago, Nastaran Primary Care Unavailable Mago, Nastaran Referring Unavailable Carmen Shearer Attending Unavailable Mago, Nastaran Primary Care Unavailable Mago, Nastaran Referring Unavailable Renetta Cha Attending Unavailable Renetta Cha Attending Unavailable Mago, Nastaran Primary Care Unavailable Mago, Nastaran Referring Unavailable [place] GOLD BLOWER, Jesika Attending Unavailable Mago, Nastaran Primary Care Unavailable Mago, Nastaran Referring Unavailable Friend, Domo Attending Unavailable Mago, Nastaran Primary Care Unavailable Mago, Nastaran Referring Unavailable Carmen Shearer Attending Unavailable Mago, Nastaran Referring Unavailable Mago, Nastaran Primary Care Unavailable Iesha Lo Attending Unavailable Mary Beth Allen Attending Unavailable Mago, Nastaran Referring Unavailable Mago, Nastaran Primary Care Unavailable Mago, Nastaran Primary Care Unavailable Mago, Nastaran Referring Unavailable Marcia Yen Attending Unavailabl e Renetta Cha Attending Unavailable MANDY, CRISTINO Referring Unavailable MANDY, CRISTINO Primary Care Unavailable Mago, Nastaran Primary Care Unavailable Mago, Nastaran Referring Unavailable Carmen Shearer Attending Unavailable Friend, Domo Attending Unavailable Mago, Nastaran Primary Care Unavailable Friend, Domo Referring Unavailable Mago, Nastaran Primary Care Unavailable Carmen Shearer Attending Unavailable Marcanthony, Carmen Referring Unavailable Renetta Cha Referring Unavailable MANDY, CRISTINO Primary Care Unavailable Renetta Cha Attending Unavailable Renetta Cha Attending Unavailable Renetta Cha Referring Unavailable MANDY, CRISTINO Primary Care Unavailable Catrachito Mercedes Primary Care Unavailable Renetta Cha Attending Unavailable Iesha Lo Consulting Unavailable Renetta Cha Referring Unavailable MANDY, CRISTINO Primary Care Unavailable Iesha Lo Referring Unavailable Iesha Lo Attending Unavailable Medications Current Medications Medication Drug Class(es) Dates Sig (Normalized) Sig (Original) acetaminophen 500 mg oral tablet (1 source) Start: 08-27-2023 End: 09-24-2023 Tylenol Extra Strength 500 mg oral tablet Dose : 500 mg = 1 tab(s), Oral, q4h, X 14 day(s), # 30 tab(s), 1 Refill(s), 09/24/23 11:51:00 AM EST, Pharmacy: [facility] #[id number], 160, cm, 08/27/23 10:15:00 EST, Height, kg, [...] day(s), # 12 tab(s), 0 Refill(s), Pharmacy: [facility] #[id number], Postoperative pain, 160, cm, 08/27/23 10:15:00 EST, Height, 75, kg, 08/27/23 10:15:00 EST, Dosing Weight Start Date: 08/27/23 Stop Date: 09/03/23 Status: Ordered aspirin 81 mg delayed release oral tablet (16 sources) Platelet Aggregation Inhibitor, Nonsteroidal Anti-inflammatory Drug [...] minutes after 28 capsule 08/14/2024 08/28/2024 Active ibuprofen 800 mg oral tablet (1 source) Nonsteroidal Anti-inflammatory Drug Start: 08-27-2023 End: 09-10-2023 ibuprofen 800 mg oral tablet Dose : 800 mg = 1 tab(s), Oral, q8h, X 14 day(s), # 42 tab(s), 0 Refill(s), 09/10/23 11:51:00 AM EST, Pharmacy: [facility] #[id number], 160, cm, 08/27/23 10:15:00 EST, Height, kg, 08/27/23 10:15:00 EST, Dosing Weight Start Date: 08/27/23 Stop Date: 09/10/23 Status: Ordered lidocaine 25 mg/ml / prilocaine 25 mg/ml topical cream (8 sources) Antiarrhythmic, Amide Local Anesthetic Start: 11-28-2024 End: 11-28-2025 lidocaine-priloc polly (Emla) 2.5-2.5 % cream Indications: Female infertility Apply topically once daily. Apply to treatment area 1 hour prior to injection. 30 g 2 11/30/2024 4:28 PM EDT 11/28/2024 11/28/2025 Active Mv-Mins 22-Oeee-Cnmie No.1-Dha (Pnv-[place]) 28-1-300 mg capsule (7 sources) Start: 01-26-2025 Mv-Mins 68-Izzp-Gzewh No.1-Dha (Pnv-[place]) 28-1-300 mg capsule Active NMA PO January 26, 2025 12:00am ondansetron 4 mg disintegrating oral tablet (3 sources) Serotonin-3 Receptor Antagonist Start: 02-23-2025 take 1 tablet by mouth every six hours as needed for nausea and vomiting Ondansetron 4 mg tablet,disintegr ating Active 4 mg PO EVERY 6 HOURS as needed for nausea and vomiting 30 3 February 23, 2025 12:00am Start: 08-27-2023 End: 09-01-2023 Zofran 4 mg oral tablet Dose : 4 mg = 1 tab(s), Oral, q6h, PRN Nausea/Vomiting, X 5 day(s), # 20 tab(s), 0 Refill(s), 09/01/23 11:51:00 AM EST, Pharmacy: [facility] #[id number], 160, cm, 08/27/23 10:15:00 EST, Height, kg, 08/27/23 10:15:00 EST, Dosing Weight Start Date: 08/27/23 Stop Date: 09/01/23 Status: Ordered Prenat.Vits,Mario,Rrx-Srwi-Wju ic (10 sources) Start: 10-22-2021 take 1 tablet by mouth once daily Prenat.Vits,Mario,Jlr-Ajnv-Fpnix Active 1 TABLET PO DAILY October 22, 2021 9:52am Start: 10-22-2021 take 1 tablet by damon th once daily Prenat.Vits,Mario,Blq-Wgnv-Fpsyz Active 1 TABLET PO DAILY October 22, 2021 12:00am Start: 10-22-2021 take 1 tablet by damon th once daily Prenat.Vits,Mario,Vvh-Bwle-Btzvn Active 1 TABLET PO DAILY October 22, 2021 1:00am 4-NTUT-AXGXK ACID-OM3 ORAL (20 sources) Start: 12-07-2019 take 1 capsule by mouth once daily 4-RVDZ-RHWED ACID-OM3 ORAL Take 1 capsule by mouth [...] 01/15/2025 3:04 PM EDT 11/28/2024 11/28/2025 Active 72 hr scopolamine 0.0139 mg/hr transdermal system (1 source) Anticholinergic Start: 10-11-2024 1 patch, transdermal, Administer over 72 Hours, Every 72 hours, [...] Discontinued 80 mg SC DAILY 1.6 2 0 September 15, 2021 1:00am September 16, 2021 [...] budesonide 3 mg delayed release oral capsule (20 sources) Corticosteroid Start: 01-06-2024 End: 07-12-2024 take 1 capsule by mouth once daily Budesonide 3 mg capsule,delayed,ex tend.release Discontinued 3 mg PO DAILY 90 January 06, 2024 12:00am July 12, 2024 9:31am Start: 12-15-2023 End: 07-12-2024 Budesonide 3 mg capsule,rosa yemauro,extend.release Discontinued 3 mg PO TWICE A DAY 119 0 December 15, 2023 12:00am July 12, 2024 9:31am take 2 tablets by mouth once a day for 8 weeks, and then take 1 tablet by mouth one a day for one week. Start: 03-05-2022 End: 03-06-2022 Budesonide 2 mg/actuation fo am Discontinued 1 NMA RC TWICE A DAY 66.8 28 0 March 05, 2022 12:00am April 01, 2022 12:00am March 06, 2022 8:00am use twice a day for 2 weeks, then once a day for 2 weeks Start: 03-05-2022 End: 03-06-2022 Budesonide Discontinued 1 AP PFUL RC TWICE A DAY 66.8 28 March 05, 2022 12:00am March 06, 2022 [...] 10/09/2024 12/11/2024 Discontinued (Med List Cleanup) Cholecalciferol (8 sources) Vitamin D Start: 07-12-2024 End: 01-26-2025 Cholecalciferol (Vitamin D3) 62.5 mcg (2,500 unit) capsule Discontinued ug PO July 12, 2024 1:00am January 26, 2025 1:03pm Start: 07-12-2024 Cholecalcifero l (Vitamin D3) 62.5 mcg (2,500 unit) capsule Active ug PO July 12, 2024 1:00am chorionic gonadotropin 41827 unt/ml injectable solution (15 sources) Gonadotropin Start: 11-07-2024 End: 11-22-2024 inject 48962 [IU] by subcutaneous injection once chorionic gonadotropin (Pregnyl) 10,000 unit injection Indications: Female infertility Reconstitute according to instructions and inject 10,000 units (1 mL) under the skin as a one time dose, as directed per provider for trigger. 1 each 11/08/2024 11/22/2024 Discontinued (Therapy completed) Start: 08-18-2024 End: 10-11-2024 inject [id number] [IU] by subcutaneous injection once chorionic gonadotropin (Pregnyl) 10,000 unit injection Indications: Female infertility Reconstitute according to instructions and inject 10,000 units (1 mL) under the skin as a one time dose, as directed per provider for trigger. 1 each 08/18/2024 10/11/2024 Discontinued (Therapy completed) dicyclomine hydrochloride 20 mg oral tablet (15 sources) Anticholinergic Start: 08-09-2023 End: 09-08-2023 take 1 tablet by mouth three times daily Dicyclomine 20 mg tablet Discontinued 20 mg PO THREE TIMES A DAY 30 0 August 09, 2023 1:00am September 07, 2023 1:00am September 08, 2023 1:04am [place] 7-Fue-Oli-Fish Oil (8 sources) Start: 07-12-2024 End: 01-26-2025 [place] 4-Cst-Rlr-Fish Oil (Fish Oil) 300-1,000 mg capsule Discontinued 1 NMA PO daily July 12, 2024 1:00am January 26, 2025 1:04pm Start: 07-12-2024 [place] 3-Dha-Ep a-Fish Oil (Fish Oil) 300-1,000 mg capsule Active 1 NMA PO daily July 12, 2024 1:00am estradiol 2 mg oral tablet (17 sources) Estrogen Start: 11-28-2024 End: 11-28-2025 take 3 tablets by mouth once daily Estradiol (Estrace) 2 mg tablet Discontinued 6 mg PO daily January 01, 2025 12:00am February 23, 2025 11:08am Start: 11-28-2024 End: 12-11-2024 estradiol (Estrace) 2 mg tab let Indications: Female infertility Insert 1 tablet (2 mg) into the vagina 2 times a day. 11/28/2024 12/11/2024 Discontinued (Med List Cleanup) Ethinyl Estradiol / norgestimate (16 sources) Progestin, [...] Discontinued (Therapy completed) hydrocortisone 1.67 mg/ml enema (20 sources) Corticosteroid Start: 11-16-2022 End: 12-07-2022 Hydrocortisone 100 mg/60 mL enema Discontinued 100 mg RC AT BEDTIME 1260 21 0 November 16, 2022 12:00am December 06, 2022 12:00am December 07, 2022 12:04am Start: 03-06-2022 End: 11-16-2022 Hydrocortisone Acetate 10 % (80 mg) foam Discontinued 1 NMA RC TWICE A DAY 15 14 March 06, 2022 12:00am November 16, 2022 10:30am Start: 03-06-2022 End: 11-16-2022 Hydrocortisone Acetate Disco ntinued 1 APPFUL RC TWICE A DAY 15 March 06, 2022 12:00am November 16, 2022 10:30am hyoscyamine sulfate 0.125 mg sublingual tablet (16 sources) Start: 03-05-2022 End: 07-12-2024 Hyoscyamine Sulfate 0.125 mg tablet, sublingual Discontinued 0.125 mg PO 2 to 4 times per day as needed for abdominal discomfort 100 0 March 05, 2022 12:00am July 12, 2024 9:31am letrozole 2.5 mg oral tablet (16 sources) Aromatase Inhibitor Start: 03-27-2024 End: 04-01-2024 Letrozole 2.5 mg tablet Discontinued 5 mg PO DAILY 10 5 0 March 27, 2024 12:00am March 31, 2024 12:00am April 01, 2024 12:08am Polycystic ovary syndrome Infertility Polycystic ovarian syndrome begin between days 3 and 7 of menstrual cycle Start: 01-31-2024 End: 02-05-2024 Letrozole 2.5 mg tablet Disc ontinued 5 mg PO DAILY 10 5 0 January 31, 2024 12:00am February 04, 2024 12:00am February 05, 2024 12:16am Polycystic ovary syndrome Infertility Polycystic ovarian syndrome begin between days 3 and 7 of [...] 1 kit 08/18/2024 10/11/2024 Discontinued (Therapy completed) metFORMIN hydrochloride 1000 mg oral tablet (20 sources) Biguanide Start: 01-26-2025 End: 03-09-2025 Metformin 1,000 mg tablet Discontinued 1500 mg PO daily January 26, 2025 12:00am March 09, 2025 11:35am Start: 12-25-2024 End: 03-25-2025 take 3 tablets [...] by mouth once daily. 3 tablets Active omeprazole 20 mg delayed release oral capsule [...] mg PO TWICE A DAY 180 90 3 August 07, 2024 11:18am January 26, 2025 [...] to administer Follistim 1 each 11/08/2024 Active predniSONE 10 mg oral tablet (20 sources) Start: 01-26-2025 End: 03-09-2025 Prednisone 10 mg tablet Discontinued 10 mg PO daily January 26, 2025 12:00am March 09, 2025 11:35am Stop at 12 weeks Start: 11-28-2024 End: 11-28-2025 take 1 tablet by mouth once daily Prednisone 10 mg tablet Discontinued 10 mg PO daily January 01, 2025 12:00am March 09, 2025 11:35am Start: 02-11-2022 End: 03-06-2022 Prednisone 10 mg [...] for five day and then one tab. Prenat.Vits,Mario,Ykf-Fckm-Ldh ic tablet (8 sources) Start: 10-22-2021 End: 01-26-2025 Prenat.Vits,Mario,Rhp-Xsya-Lat ic tablet Discontinued 1 {tbl} PO DAILY October 22, 2021 1:00am January 26, 2025 1:05pm Start: 10-22-2021 Prenat.Vits,Ca l,Bgw-Exfw-Uycvh tablet Active 1 {tbl} PO DAILY October 22, 2021 1:00am progesterone oil (15 sources) Start: 01-26-2025 End: 02-23-2025 inject 75 mg by intramuscular injection at bedtime progesterone oil Discontinued 75 mg IM AT BEDTIME January 26, 2025 1:05pm February 23, 2025 11:08am last dose 02/21 Start: 01-26-2025 inject 75 mg by intr amuscular injection at bedtime progesterone oil Active 75 mg IM AT BEDTIME January 26, 2025 1:05pm last dose 02/21 Start: 01-01-2025 End: 01-26-2025 progesterone oil Discontinue d IM January 01, 2025 12:00am January 26, 2025 1:08pm Start: 01-01-2025 progesterone o il Active IM January 01, 2025 12:00am somatropin 5 mg/ml injectable solution (7 sources) [...] Discontinued 90 mg SC every 8 weeks 1 August 05, 2023 11:52am July 07, 2024 4:34pm Approved until 01.29.25 Start: 12-06-2021 ustekinumab (S telara) injection Inject 1 mL (90 mg) under the skin see administration instructions. 12/06/2021 Active Problems Active Problems Problem Classification Problem Date Documented Da te Episodic/Chronic Endometriosis (20 sources) Endometriosis (clinical); Translations: [Endometriosis, unspecified] Onset: 5 12-09-2023 Chronic Comment on above: STAGE 2 Tejinder 07/31 023 ROR Esophageal disorders (20 sources) Gastroesophageal reflux disease; Translations: [Gastro-esophageal reflux disease without esophagitis] Onset: 5 08-03-2023 Chronic Female infertility (16 sources) Female infertility; Translations: [Female infertility, unspecified] Onset: 3 Chronic Gastrointestinal hemorrhage (15 sources) Rectal hemorrhage; Translations: [Hemorrhage of anus and rectum] Onset: 5 01-17-2025 Episodic Hemorrhage during ; abruptio placenta; placenta previa (1 source) Other antepartum hemorrhage, first trimester; Translations: [Other antepartum hemorrhage, first trimester] Onset: 5 Episodic Immunizations and screening for infectious disease (20 sources) Inactive tuberculosis; Translations: [Latent tuberculosis] Onset: 5 12-22-2022 Episodic Menstrual disorders (12 sources) Amenorrhea; Translations: [Amenorrhea, unspecified] 01-26-2025 Chronic Comment on above: +UPT Nausea and vomiting (10 sources) Postoperative nausea and vomiting; Translations: [Nausea with vomiting, unspecified] Onset: 5 11-22-2024 Episodic Nutritional deficiencies (3 sources) Vitamin D deficiency; Translations: [Vitamin D deficiency, unspecified] Onset: 5 12-11-2024 Chronic Other complications of (14 sources) Maternal obesity complicating , childbirth and the puerperium, antepartum; Translations: [Obesity complicating , unspecified trimester] 01-26-2025 Chronic Comment on above: HGBA1c Other complications of (1 source) Obesity complicating , unspecified trimester; Translations: [Obesity complicating , unspecified trimester] Onset: Chronic Other complications of (2 sources) with inconclusive viability, not applicable or unspecified; Translations: [ with inconclusive viability, not applicable or unspecified] Onset: 5 Episodic Other complications of (20 sources) High risk ; Translations: [Supervision of with other poor reproductive or obstetric history, unspecified trimester] 01-26-2025 Episodic Comment on above: 20 weeks, subchorion ic hematoma , GIL 09/13/25, H usband Romel , GIL 09/13/25, P Rosa Kim ( week demise) Romel growth US and NSTs a t 36 week Other complications of (14 sources) H/O: blood transfusion; Translations: [Supervision of with other poor reproductive or obstetric history, unspecified trimester] 01-26-2025 Episodic Comment on above: 2018 due to anemia Other complications of (1 source) Supervision of high risk , unspecified, unspecified trimester; Translations: [Supervision of high risk , unspecified, unspecified trimester] Onset: 5 Episodic Other complications of (1 source) Supervision of resulting from assisted reproductive technology, unspecified trimester; Translations: [Supervision of resulting from assisted reproductive technology, unspecified trimester] Onset: 5 Episodic Other complications of (1 source) Supervision of with other poor reproductive or obstetric history, unspecified trimester; Translations: [Supervision of with other poor reproductive or obstetric history, unspecified trimester] Onset: 5 Episodic Other endocrine disorders (20 sources) Polycystic ovary syndrome; Translations: [Polycystic ovarian syndrome] Onset: 5 12-11-2024 Chronic Other endocrine disorders (3 sources) Polycystic ovarian syndrome; Translations: [Polycystic ovarian syndrome] Onset: 5 Chronic Other female genital disorders (2 sources) Vaginal discharge; Translations: [Other specified noninflammatory disorders of vagina] 01-22-2025 Episodic Other female genital disorders (2 sources) Other specified noninflammatory disorders of vagina; Translations: [Other specified noninflammatory disorders of vagina] Onset: 5 Episodic Other hematologic conditions (14 sources) History of anemia; Translations: [Personal history of diseases of the blood and blood-forming organs and certain disorders involving the immune mechanism] 01-26-2025 Episodic Other hematologic conditions (1 source) Personal history of diseases of the blood and blood-forming organs and certain disorders involving the immune mechanism; Translations: [Personal history of diseases of the blood and blood-forming organs and certain disorders involving the immune mechanism] Onset: 5 Episodic Other nervous system disorders (1 source) Postoperative pain ; Translations: [Other acute postprocedural pain] Onset: 3 Episodic Other nutritional; endocrine; and metabolic disorders (18 sources) Obesity; Translations: [Class 1 obesity in adult] Onset: 5 11-22-2024 Chronic Other nutritional; endocrine; and metabolic disorders (8 sources) Obese class I; Translations: [Class 1 obesity] 05-04-2024 Chronic Other nutritional; endocrine; and metabolic disorders (15 sources) Body mass index 30+ - obesity; Translations: [Body mass index (BMI) 32.0-32.9, adult] 05-04-2024 Chronic Other nutritional; endocrine; and metabolic disorders (1 source) Body mass index (BMI) 32.0-32.9, adult; Translations: [Body mass index [BMI] 32.0-32.9, adult] Onset: 5 Chronic Other nutritional; endocrine; and metabolic disorders (1 source) Obesity, unspecified; Translations: [Obesity, unspecified] Onset: 4 Chronic Other nutritional; endocrine; and metabolic disorders (1 source) Other obesity; Translations: [Other obesity] Onset: 4 Chronic Other nutritional; endocrine; and metabolic disorders (2 sources) Weight gain 04-20-2023 Episodic Other and delivery including normal (16 sources) Encounter for test, result positive; Translations: [] Onset: 5 Episodic Comment on above: discussed NIPT & Car rier testing-undecided declined NIPT & Childs ier testing Other screening for suspected conditions (not mental disorders or infectious disease) (4 sources) Encounter for screening for diabetes mellitus; Translations: [Encounter for screening for other suspected endocrine disorder] Onset: Episodic Other skin disorders (2 sources) Skin problem; Translations: [Disorder of the skin and subcutaneous tissue, unspecified] 12-20-2024 Episodic Other skin disorders (2 sources) Disorder of the skin and subcutaneous tissue, unspecified; Translations: [Disorder of the skin and subcutaneous tissue, unspecified] Onset: Episodic Polyhydramnios and other problems of amniotic cavity (20 sources) Subchorionic hematoma; Translations: [Other specified disorders of amniotic fluid and membranes, first trimester, not applicable or unspecified] Onset: 5 01-26-2025 Episodic Comment on above: seen on US in ER 12/29 02/21 and with fertility specialist Regional enteritis and ulcerative colitis (20 sources) Ulcerative colitis; Translations: [Ulcerative colitis, unspecified, without complications] Onset: 3 Chronic Comment on above: Pt reports dx, pt of Residual codes; unclassified (1 source) Family history of urological disorder; Translations: [Family history of other diseases of the genitourinary system] Onset: 3 Episodic Residual codes; unclassified (15 sources) Infertile 07-12-2024 Episodic Comment on above: SA-nl, normal pelvic US and TSH Nl HSG 07/2023 Residual codes; unclassified (13 sources) Past history of procedure; Translations: [Personal history of other medical treatment] 01-26-2025 Episodic Comment on above: treated by 2022, negative testing since. Residual codes; unclassified (1 source) Personal history of other medical treatment; Translations: [Personal history of other medical treatment] Onset: 5 Episodic Residual codes; unclassified (1 source) 8 weeks gestation of ; Translations: [8 weeks gestation of ] Onset: 5 Episodic Unclassified (12 sources) Patient encounter status 04-20-2023 Unclassified (4 sources) Infertile; Translations: [Infertility] 12-09-2023 Unclassified (1 source) Other obesity not elsewhere classified; Translations: [Other obesity not elsewhere classified] Onset: Viral infection (3 sources) Verruca plantaris; Translations: [Plantar wart] Onset: 12-20-2024 Episodic Past or Other Problems Problem [...] Test Name Value Interpretation Reference Range Facility Health Care Law Specialist Office Visit Reporton 02-23-2025 Health Care Law Specialist Office Visit Report [facility] [address], [address] [place] [address] OFFICE VISIT Date of Service: 02/23/25 MR#: [id number] Acct: [id number] Name: MARIXA AMOS Rep #: [id number] : 1995 Provider: Dr. Marcia Lawson DO Age/Sex: 29/F [place] [facility] [place]: Signed Intake Vital Signs 02/06/25 08:17 02/23/25 11:00 02/23/25 11:01 Height 5 ft 3 in 5 ft 3 in 5 ft 3 in Weight: 186 lb 2 oz BMI 32.9 BP 135/86 H Intake Visit Reasons: Heart beat Check *IVF Director Underwriter Sales Required: No Is patient in pain?: No Allergies No Known Allergies Allergy (Verified 02/23/25 11:00) Medications ???Medication ???Instructions ???Recorded ???Confirmed ???Type ustekinumab 90 mg/mL subcutaneous 90 mg subcut Q8W #1 mL 07/07/24 0 02/23/25 Rx syringe (Stelara) aspirin 81 mg tablet,delayed 81 mg PO QDAY 01/01/25 02/23/25 Hi story release (Adult Aspirin Regimen) prednisone 10 mg tablet 10 mg PO QDAY 01/01/25 02/23/25 Hi story metformin 1,000 mg tablet 1,500 mg PO QDAY 01/26/25 02/23/25 History multivit-min no.71-iron fum 28 cap PO 01/26/25 02/23/25 History mg-folate no.1 1 mg-dha 300 mg capsule (PNV-[place]) prednisone 10 mg tablet 10 mg PO QDAY 01/26/25 02/23/25 Hi story ondansetron 4 mg disintegrating 4 mg PO Q6H PRN nausea and 5 02/23/25 Rx tablet vomiting #30 tabs Last Menstrual Period: 10/19/24 Zika: Zika virus screening: Negative : No PFSH PFSH Medical History Obesity (BMI 30.0-34.9) Other obesity Rectal bleeding Endometriosis Low iron Anemia Latent tuberculosis Ulcerative colitis Surgical History History of esophagogastroduodenosco py (EGD) History of laparoscopy History of colonoscopy Family History Grandmother Diabetes Maternal Grandfather Diabetes Paternal Father Hypertension Hyperlipidemia CAD (coronary artery disease) CABG 2 years ago Social History adopted: No household members: spouse housing: house current occupational status: employed current occupation: [employer] current occupational exposures/hazards: No pets and animals: Yes pets and animals: dog(s) history of recent travel: No sexually active: Yes Smoking Status: Never smoker alcohol intake: never substance use type: does not use well-balanced diet: daily or most days caffeine: No eating out: rarely or never during the past year weight has: remained stable what type of physical activity do you participate in: walking frequency: 3-4 times per week duration: 45-60 minutes/day cathy/mormon: None seatbelt use: always do you feel safe at home: Yes additional social history: -Romel- Nathan History 2 Elective abortions Hx Para 0 Spontaneous abortions 1 Hx # Term Pregnancies Ectopic pregnancies Hx # Pregnancies Multiple births # of living children Past Pregnancies Del. Date Name GA/Weeks Outcome Route Bth Weight Gen Labor Lgth Anesthesia Del Locatn Provider FOB Unknown 07/2023-Julio 20 still Male Delivery Date: Last Updated by: Jacquie Durán demise, possible subchorionic hematoma HPI Heart beat Check *IVF Details: MARIXA AMOS is a 29 year old who presents for routine OB visit. OB Visit GIL Calculator Estimated Delivery Date Method Current WG Current Estimate 09/13/25 Manual 11w 1d Other Estimates 09/11/25 Ultrasound #1 11w 3d Expected Delivery Route/Plan Labor Preferences- CB/BF classes: [] labor support person: [] labor intervention preferences: [] pain management options preferred: [] cut cord/dad catch: [] : [] PP control planned: [] discussed possible routes of delivery and associated risks: [] special requests: [] Specific Issue/Plans Covid status: [] Flu vaccine: [] Tdap vaccine: [] Rhogam: [] LARC form signed: [] Problem list reviewed and updated with the most current plan of care details and appropriate orders placed. Relevant counseling for the gestational age provided. Continue routine care and follow up unless otherwise noted in visit notes/problem list details Initial Weight: 185 lb Date -???-???-???-???-???-??? -???-???-???-???-???-??? - EGA Weight BP Urine Prot -???-???-???-???-???-??? -???-???-???-???-???-??? - Glucose FHR FuHt Pres Dilation -???-???-???-???-???-??? -???-???-???-???-???-??? - Effaced St Visit Note 02/06/25 -???-???-???-???-???-??? -???-???-???-???-???-??? - 8w 5d 185 lb 8 oz (+8 oz) 118/70 -???-???-???-???-???-??? -???-??? (more content not included)... Normal [facility] [id number] 02-16-2025 [facility] Misc. COMMENT Normal . [facility] Comment on above: Order Comment: [id number] 4Stelara levels Result Comment: Test Ordered: [id number] Ustekinumab Drug + Antibody Ustekinumab 3.9 ug/mL ES Reference Range: . Quantitation Limit: <0.1 ug/mL Results of 0.1 ug/mL or higher indicate detection of ustekinumab. COMMENTS: - Induction levels in Crohn's Disease: - Patients who received IV 130 mg or 6 mg/kg had median trough concentrations of 2.1 ug/mL and 6.4 ug/mL, respectively, at week 8 in UNITI trials.(1) - Maintenance levels: - Of UNITI patients with trough levels greater than 1.1 ug/mL, about 80% achieved clinical remission (HBI < 5) and about 50% attained CRP normalization.(2) - Higher maintenance concentrations, greater than 4.5 ug/mL (achieved with q8wk or q4wk dosing after SQ induction), may be necessary for endoscopic response (SES-CD score reduction >=50%).(3) - Trough levels predictive of mucosal healing and fistula healing have yet to be determined. - In plaque psoriasis, median trough ustekinumab concentrations were 0.4 ug/mL at weeks 14 and 28 (ranging from undetectable to 3.6 ug/mL).(4) Although PASI50 responders had higher trough concentrations than non- responders in a study of 76 patients, a definitive therapeutic target range for psoriasis has yet to be established.(5) - As with other biologics, the optimal drug concentration depends upon patient-specific factors including co- morbidities, disease and desired therapeutic endpoint - This ustekinumab drug assay measures the free fraction of ustekinumab (antibody-unbound ustekinumab) when serum anti-ustekinumab antibodies are present. Anti-Ustekinumab Antibody <40 ng/mL ES Reference Range: . Quantitation Limit: < 40 ng/mL Results of 40 ng/mL or higher indicate detection of anti- ustekinumab antibodies. COMMENTS: - This anti-ustekinumab antibody assay is drug-tolerant, i.e. the detection of anti-ustekinumab antibodies is not impeded by the presence of ustekinumab in serum. - All positive anti-ustekinumab antibody results are verified by a confirmatory test. - The concomitant free ustekinumab drug concentration (reported above) is the pharmacodynamically active drug when anti-ustekinumab antibodies are present. - Serial measurements over time may be helpful to assess the impact of immunogenicity on the free drug level. - In the IM-UNITI trial, the incidence of anti-ustekinumab antibodies in Crohn's Disease at 1 year was 2.3%.(1) - In psoriasis, anti-ustekinumab antibodies occurred in 4-6% of patients.(6) References: 1. Martell FRIEDMAN, et al. Gastroenterology 2016;150(4):S408. 2. Martell Matt et al. P007 Exposure-Response to SC Ustekinumab in Moderate - Severe Crohn's Disease: Results from the IM-UNITI Maintenance Study. Advances in AIBD. May 2017. 3. Ariana R, et al. Clin Gastroenterol Hepatol 2017;15: 1569-7500. 4. Tessa SP, et al. Br J Dermatol;2015:173;855-857. 5. Grover H, et al. PLOS ONE DOI;10:1371/journal.pone.2693065. 6. Allan L, et al. Br J Dermatol 2014;170:261-273. These tests were developed and their performance characteristics determined by [facility]. They have not been cleared or approved by the Food and Drug Administration. However, both drug and anti-drug antibody assays have been developed and validated in accordance with FDA Guidance for Industry documents: Bioanalytical Method Validation (2013) and Assay Development and Validation for Immunogenicity Testing of Therapeutic Protein Products (2016). Performed at: [facility] [address] [place] [id number] Technician [employer] Equipment: Gregg Roberto MD, Phone: [phone] Performed at: - [facility] [address] [id number] Technician [employer] Equipment: Almas Saavedra PhD, Phone: [phone] Performed By: #### L 500.4050 #### [facility] [address] [place], [address] Chlamydia/GC ALEKSEY aptimaon CHLAMY,NUC ACID Negative Normal Negative [facility] Comment on above: Performed By: #### M 100.2200, L7000.1800 #### [facility] [address] [place], [place], [id number] GC BY NUC ACID Negative Normal Negative [facility] Comment on above: Result Comment: Perf ormed at: =G - [facility] [address] [id number] Technician [employer] Equipment: Rose Haney MD, Phone: [phone] Performed By: #### M 100.2200, L7000.1800 #### [facility] [address] [place], [place], [id number] Urine Cultureon 02-07-2025 [facility] Culture exhibits no growth. Normal [facility] Comment on above: Performed By: #### M 100.2200, L7000.1800 #### [facility] [address] [place], [address] Absolute lymphocyte countOrd ered By: Carmen Shearer on 02-06-2025 Lymphocytes Auto (Unsp spec) [#/Vol] 1.57 10*3/uL 0.83-4.51 [facility] Absolute neutrophil countOrd ered By: Carmen Shearer on 02-06-2025 Neutrophils (Bld) [#/Vol] 9.8 10*3/uL High 2.0-7.7 [facility] Automated lymphocyte count a s percentage of total leukocytesOrdered By: Carmen Shearer on 02-06-2025 Lymphocytes/100 WBC Auto (Unsp spec) 12.6 % Low 19-41 [facility] Basophil percentageOrdered B y: Carmen Shearer on 02-06-2025 Basophils/100 WBC (Bld) 0.4 % 0-1 [facility] CBC W/Diff, Automatedon 01-28 PLT EST A Normal ADEQ [facility] Comment on above: Performed By: #### L 3890.6006, L3890.6102, L3890.6301, BTS, L100.0100, L509.4006, L501.9985, L509.8002 #### [facility] [address] [place], [place], [address] RED CELL MORPH NORM C+C Normal NORM C C [facility] Comment on above: Performed By: #### L 3890.6006, L3890.6102, L3890.6301, BTS, L100.0100, L509.4006, L501.9985, L509.8002 #### [facility] [address] [place], [address] Chlamydia trachomatis rRNA d etection by probe and target amplification methodOrdered By: Carmen Shearer on 02-06-2025 C. trachomatis rRNA ALEKSEY+probe Ql (Unsp spec) Negative Negative [facility] Eosinophil percentageOrdered By: Carmen Shearer on 02-06-2025 Eosinophils/100 WBC (Bld) 1.7 % 0-5 [facility] Erythrocyte distribution wid th ratioOrdered By: Carmen Shearer on 02-06-2025 Erythrocyte distribution width (RBC) [Ratio] 13.1 % 11.6-14.6 [facility] Erythrocyte distribution wid th standard deviationOrdered By: Carmen Shearer on 02-06-2025 Erythrocyte distribution width (RBC) [Ratio] 43.2 fl 35.1-43.9 [facility] Erythrocyte morphology asses smentOrdered By: Carmen Shearer on 02-06-2025 RBC morphology finding Nom (Bld) NORM C+C NORMAL NORM C&C [facility] HIVon 02-06-2025 HIV Non-Reactive Normal Nonreactive [facility] Comment on above: Result Comment: Non- Reactive Reactive Repeatedly reactive samples must be confirmed according to CDC recommended confirmatory algorithms. The subresults for either HIVAG or AHIV can be used as an aid in the selection of the confirmation algorithm for reactive samples. Send out specimens with Reactive results to [facility] for confirmation. Order the HIV antibody detection and differentiation: lc#[id number] Performed By: #### L 3890.6006, L3890.6102, L3890.6301, BTS, L100.0100, L509.4006, L501.9985, L509.8002 #### [facility] [address] [place], [address] Hematocrit Auto (Bld) [Volum e fraction]Ordered By: Carmen Shearer on 02-06-2025 Hematocrit (Bld) [Volume fraction] 34.7 % Low 37-47 [facility] Hemoglobin A1con 02-06-2025 HbA1c (Bld) [Mass fraction] 5.5 % Normal <=5.6 [facility] Comment on above: Result Comment: Norm al < 5.7 % Prediabetic 5.7 - 6.4 % Diabetic >or= 6.5 % Please note range changes. Performed By: #### M 100.2200, L7000.1800 #### [facility] [address] [place], [address] Hemoglobin A1c percentageOrd ered By: Carmen Shearer on 02-06-2025 HbA1c (Bld) [Mass fraction] 5.5 % <5.7 [facility] Comment on above: Normal < 5.7 % Predi abetic 5.7 - 6.4 % Diabetic >or= 6.5 % Please note range changes. Hemoglobin measurementOrdere d By: Carmen Shearer on 02-06-2025 Hemoglobin (Bld) [Mass/Vol] 11.5 g/dL Low 12.0-15.0 [facility] Hepatitis C Antibodyon 02-06 Hepatitis C Ab Non-Reactive Normal Nonreactive [facility] Comment on above: Result Comment: Reac tive: Presumptive evidence of antibodies to HCV. Follow CDC recommendations for supplemental testing. Non-Reactive: Antibodies to HCV were not detected; does not exclude the possibility of exposure to HCV Reactive Results are presumptive evidence of antibodies to HCV. Follow CDC recommendations for supplemental testing. Order confirmation testing: HCV Quant by PCR testing - HCVPCR #[id number] Non Reactive: < 0.8 Equivocal: >/= 0.8 to < 1.0 Reactive: >/= 1.0 The CDC requires that a reactive/equivocal HCV antibody result be sent out for confirmation. HCV Quant by PCR testing. Performed By: #### M 100.2200, L7000.1800 #### [facility] [address] [facility] [place], [address] Immature granulocytes/100 WB C Auto (Bld)Ordered By: Carmen Shearer on 02-06-2025 Immature granulocytes/100 WBC (Bld) 0.600 % 0.0-0.9 [facility] Comment on above: IG% - Immature Granu locytes (promyelocytes, myelocytes and metamyelocytes) > 1% indicates that a LEFT SHIFT is Present. L3890.6102on 02-06-2025 HEP B Surf Ag Non-Reactive Normal Nonreactive [facility] Comment on above: Result Comment: Reac tive: Presumptive evidence of HBV. Repeatedly reactive samples must be confirmed using a neutralization test (Elecvaluescopes HBsAg Confirmatory Test) Non-Reactive: HBsAg not detected; does not exclude the possibility of exposure to HBV Performed By: #### L 3890.6006, L3890.6102, L3890.6301, BTS, L100.0100, L509.4006, L501.9985, L509.8002 #### [facility] [address] [facility] [place] [place], [address] L509.4006on 02-06-2025 Rubella IgG REAC Normal Nonreactive [facility] Comment on above: Result Comment: Anti body Result: Interpretation Non-Reactive: Non-Immune Reactive: Immune The following results were obtained with the Elecsys Rubella IgG assay. Results from assays of other manufacturers cannot be used interchangeably. Performed By: #### L 3890.6006, L3890.6102, L3890.6301, BTS, L100.0100, L509.4006, L501.9985, L509.8002 #### [facility] [address] [place], [address] Laboratory - Microbiology an d Antimicrobial susceptibilityOrdered By: Carmen Shearer on 02-06-2025 HBV surface Ag Ql (S) Non-Reactive Nonreactive [facility] Comment on above: Reactive: Presumptiv e evidence of HBV. Repeatedly reactive samples must be confirmed using a neutralization test (Elecvaluescopes HBsAg Confirmatory Test)Non-Reactive: HBsAg not detected; does not exclude the possibility of exposure to HBV MCV (mean corpuscular volume ) determinationOrdered By: Carmen Shearer on 02-06-2025 MCV (RBC) [Entitic vol] 91.3 fL 81-99 [facility] Mean corpuscular hemoglobin (MCH) determinationOrdered By: Carmen Shearer on 02-06-2025 MCH (RBC) [Entitic mass] 30.3 pg 27.0-32.0 [facility] Mean corpuscular hemoglobin concentration (MCHC) determinationOrdered By: Carmen Shearer on 02-06-2025 MCHC (RBC) [Mass/Vol] 33.1 g/dL 32-36 [facility] Mean platelet volume determi nationOrdered By: Carmen Shearer on 02-06-2025 Platelet mean volume (Bld) [Entitic vol] 11.4 fL 6.2-12.0 [facility] Monocyte percentageOrdered B y: Carmen Shearer on 02-06-2025 Monocytes/100 WBC (Bld) 5.8 % 0-10 [facility] Neisseria gonorrhoeae nuclei c acid detection by amplified probe techniqueOrdered By: Carmen Shearer on 02-06-2025 N. gonorrhoeae DNA ALEKSEY+probe Ql (Unsp spec) Negative Negative [facility] Comment on above: Performed at: =[facility] [address] [id number] Director: Rose Haney MD, Phone: [phone] Neutrophil percentageOrdered By: Carmen Shearer on 06-10-2025 Neutrophils/100 WBC (Bld) 78.9 % High 47-70 [facility] No Panel InformationOrdered By: Carmen Manfred on 02-06-2025 HIV (1&2) Antibody Non-Reactive Nonreactive [facility] Comment on above: Non-ReactiveReactive Repeatedly reactive samples must be confirmed according to CDC recommended confirmatory algorithms. The subresults for either HIVAG or AHIV can be used as an aid in the selection of the confirmation algorithm for reactive samples.Send out specimens with Reactive results to [facility] for confirmation.Order the HIV antibody detection and differentiation: #[id number] Nucleated red blood cell per centageOrdered By: Carmen Shearer on 02-06-2025 Nucleated RBC/100 WBC (Bld) [Ratio] 0 % 0-5 [facility] Health Care Law Specialist Office Visit Reporton 02-06-2025 Health Care Law Specialist Office Visit Report [facility] [address], [address] [place] [address] OFFICE VISIT Date of Service: 02/06/25 MR#: [id number] Acct: [id number] Name: MARIXA AMOS Rep #: [id number] : 1995 Provider: STEFANIE Figueroa ams Age/Sex: 29/F Location: [facility] Status: Signed Intake Vital Signs 07/12/24 08:32 02/02/25 15:25 02/06/25 08:17 Height 5 ft 3 in 5 ft 3 in 5 ft 3 in Weight: 185 lb 8 oz BMI 32.8 BP 118/70 Intake Visit Reasons: *EST* NOB IVF 12/26, GIL 09/13/25 Director Underwriter Sales Required: No Is patient in pain?: No Allergies No Known Allergies Allergy (Verified 02/06/25 08:17) Medications ???Medication ???Instructions ???Recorded ???Confirmed ???Type ustekinumab 90 mg/mL subcutaneous 90 mg subcut Q8W #1 mL 07/07/24 0 02/06/25 Rx syringe (Stelara) aspirin 81 mg tablet,delayed 81 mg PO QDAY 01/01/25 02/06/25 Hi story release (Adult Aspirin Regimen) estradiol 2 mg tablet (Estrace) 6 mg PO QDAY 01/01/25 02/06/25 His tory prednisone 10 mg tablet 10 mg PO QDAY 01/01/25 02/06/25 Hi story metformin 1,000 mg tablet 1,500 mg PO QDAY 01/26/25 02/06/25 History multivit-min no.71-iron fum 28 cap PO 01/26/25 02/06/25 History mg-folate no.1 1 mg-dha 300 mg capsule (PNV-[place]) prednisone 10 mg tablet 10 mg PO QDAY 01/26/25 02/06/25 Hi story progesterone oil 75 mg IM QHS 01/26/25 02/06/25 His tory Last Menstrual Period: 10/19/24 Zika: Zika virus screening: Negative : Yes [facility] Medical History Obesity (BMI 30.0-34.9) Other obesity Rectal bleeding Endometriosis Low iron Anemia Latent tuberculosis Ulcerative colitis Surgical History History of esophagogastroduodenosco py (EGD) History of laparoscopy History of colonoscopy Family History Grandmother Diabetes Maternal Grandfather Diabetes Paternal Father Hypertension Hyperlipidemia CAD (coronary artery disease) CABG 2 years ago Social History adopted: No household members: spouse housing: house current occupational status: employed current occupation: [employer] current occupational exposures/hazards: No pets and animals: Yes pets and animals: dog(s) history of recent travel: No sexually active: Yes Smoking Status: Never smoker alcohol intake: never substance use type: does not use well-balanced diet: daily or most days caffeine: No eating out: rarely or never during the past year weight has: remained stable what type of physical activity do you participate in: walking frequency: 3-4 times per week duration: 45-60 minutes/day cathy/mormon: None seatbelt use: always do you feel safe at home: Yes additional social history: -Romel- Cane Feeder History 2 Elective abortions Hx Para 0 Spontaneous abortions 1 Hx # Term Pregnancies Ectopic pregnancies Hx # Pregnancies Multiple births # of living children Past Pregnancies Del. Date Name GA/Weeks Outcome Route [facility]th [facility]-Julio [facility] still Male Delivery Date: Last Updated by: Jacquie Durán demise, possible subchorionic hematoma HPI *EST* NOB IVF 12/26, GIL 09/13/25 Details: MARIXA AMOS is a 29 year old who presents for New OB visit. OB Visit GIL Calculator Estimated Delivery Date Method Current WG Current Estimate 09/13/25 Manual 8w 5d Other Estimates 09/11/25 Ultrasound #1 9w 0d Estimated Due Date: 09/13/25 Expected Delivery Route/Plan Labor Preferences- CB/BF classes: [] labor support person: [] labor intervention preferences: [] pain management options preferred: [] cut cord/dad catch: [] : [] PP control planned: [] discussed possible routes of delivery and associated risks: [] special requests: [] Specific Issue/Plans Covid status: [] Flu vaccine: [] Tdap vaccine: [] Rhogam: [] LARC form signed: [] Problem list reviewed and updated with the most current plan of care details and appropriate orders placed. Relevant counseling for the gestational age provided. Continue routine care and follow up unless otherwise noted in visit notes/problem list details Initial Weight: 185 lb Date -???-???-???-???-???-??? -???-???-???-???-???-??? - EGA Weight BP Urine Prot -???-???-???-???-???-??? -???-???-???-???-???-??? - Glucose FHR FuHt Pres Dilation -???-???-???-???-???-??? -???-???-???-???-???-??? - Effaced St Visit Note 02/06/25 -???-???-???-???-???-??? -???-???-???-???-???-??? - 8w 5d 185 lb 8 oz (more content not included)... Normal [facility] Platelet countOrdered By: Uziel Shearer on 02-06-2025 Platelets (Bld) [#/Vol] 319 10*3/uL 150-450 [facility] Platelet estimateOrdered By: Carmen Shearer on 02-06-2025 Platelets LM Ql (Bld) A ADEQ [facility] RBC Auto (Bld) [#/Vol]Ordere d By: Carmen Shearer on 02-06-2025 RBC (Bld) [#/Vol] 3.80 10*6/uL Low 4.2-5.4 [facility] Syphilis Antibodieson 2024 Syphilis Abs Non-Reactive Normal Nonreactive [facility] Comment on above: Performed By: #### L 3890.6006, L3890.6102, L3890.6301, BTS, L100.0100, L509.4006, L501.9985, L509.8002 #### [facility] [address] [place], [address] Type AND Screenon 02-06-2025 ABO and Rh group Nom (Bld) Blood group B Rh(D) positive Normal [facility] Comment on above: Order Comment: PN Performed By: #### L 3890.6006, L3890.6102, L3890.6301, BTS, L100.0100, L509.4006, L501.9985, L509.8002 #### [facility] [address] [place], [address] Urine cultureOrdered By: Torin Shearer on 02-06-2025 Bacteria identified Cx Nom (U) Culture exhibits no growth. [facility] White blood cell (WBC) count Ordered By: Carmen Shearer on 02-06-2025 WBC (Bld) [#/Vol] 12.5 10*3/uL High 4.4-11.0 [facility] Absolute lymphocyte countOrd ered By: Domo Weaver on 02-02-2025 Lymphocytes Auto (Unsp spec) [#/Vol] 1.71 10*3/uL 0.83-4.51 [facility] Absolute neutrophil countOrd ered By: Domo Weaver on 02-02-2025 Neutrophils (Bld) [#/Vol] 7.6 10*3/uL 2.0-7.7 [facility] Anion gap in Serum or Plasma Ordered By: Domo Weaver on 02-02-2025 Anion gap [Moles/Vol] 13 mmol/L 5-15 [facility] Automated lymphocyte count a s percentage of total leukocytesOrdered By: Domo Weaver on 02-02-2025 Lymphocytes/100 WBC Auto (Unsp spec) 17.3 % Low 19-41 [facility] BUN/creatinine ratioOrdered By: Domorobles Weaver on 02-02-2025 Urea nitrogen/Creatinine [Mass ratio] 16.4 mg/mg 10-20 [facility] Basophil percentageOrdered B y: Domo Weaver on 02-02-2025 Basophils/100 WBC (Bld) 0.4 % 0-1 [facility] Bilirubin, totalOrdered By: Domo Weaver on 02-02-2025 Bilirubin [Mass/Vol] mg/dL 0.00-1.30 [facility] CBC W/Diff, Automatedon Absolute Lymph 1.71 X10 3/uL Normal 0.83-4.51 [facility] Comment on above: Performed By: #### M 100.2200, L7000.1800 #### [facility] [address] [place], [address] Absolute Neut 7.6 X10 3/uL Normal 2.0-7.7 [facility] Comment on above: Performed By: #### M 100.2200, L7000.1800 #### [facility] [address] [place], [address] Basophils/100 WBC (Bld) 0.4 % Normal 0-1 [facility] Comment on above: Performed By: #### M 100.2200, L7000.1800 #### [facility] [address] [place], [address] Eosinophils/100 WBC (Bld) 0.7 % Normal 0-5 [facility] Comment on above: Performed By: #### M 100.2200, L7000.1800 #### [facility] [address] [place], [address] Erythrocyte distribution width (RBC) [Ratio] 12.7 % Normal 11.6-14.6 [facility] Comment on above: Performed By: #### M 100.2200, L7000.1800 #### [facility] [address] [place], [address] Hematocrit (Bld) [Volume fraction] 33.6 % Low 37-47 [facility] Comment on above: Performed By: #### M 100.2200, L7000.1800 #### [facility] [address] [place], [address] Hemoglobin (Bld) [Mass/Vol] 11.2 g/dL Low 12.0-15.0 [facility] Comment on above: Performed By: #### M 100.2200, L7000.1800 #### [facility] [address] [place], [address] IG% 0.500 Normal 0.0-0.9 [facility] Comment on above: Result Comment: IG% - Immature Granulocytes (promyelocytes, myelocytes and metamyelocytes) > 1% indicates that a LEFT SHIFT is Present. Performed By: #### M 100.2200, L7000.1800 #### [facility] [address] [place], [address] Lymphocytes/100 WBC (Bld) 17.3 % Low 19-41 [facility] Comment on above: Performed By: #### M 100.2200, L7000.1800 #### [facility] [address] [place], [address] MCH (RBC) [Entitic mass] 29.9 pg Normal 27.0-32.0 [facility] Comment on above: Performed By: #### M 100.2200, L7000.1800 #### [facility] [address] [place], [address] MCHC (RBC) [Mass/Vol] 33.3 g/dL Normal 32-36 [facility] Comment on above: Performed By: #### M 100.2200, L7000.1800 #### [facility] [address] [place], [address] MCV (RBC) [Entitic vol] 89.6 fL Normal 81-99 [facility] Comment on above: Performed By: #### M 100.2200, L7000.1800 #### [facility] [address] [place], [address] Monocytes/100 WBC (Bld) 4.5 % Normal 0-10 [facility] Comment on above: Performed By: #### M 100.2200, L7000.1800 #### [facility] [address] [place], [address] Neutrophils/100 WBC (Bld) 76.6 % High 47-70 [facility] Comment on above: Performed By: #### M 100.2200, L7000.1800 #### [facility] [address] [place], [address] Nucleated RBC (Bld) [#/Vol] 0 10*3/uL Normal 0-5 [facility] Comment on above: Performed By: #### M 100.2200, L7000.1800 #### [facility] [address] [place], [address] Platelet mean volume (Bld) [Entitic vol] 10.2 fL Normal 6.2-12.0 [facility] Comment on above: Performed By: #### M 100.2200, L7000.1800 #### [facility] [address] [place], [address] Platelets (Bld) [#/Vol] 388 10*3/uL Normal 150-450 [facility] Comment on above: Performed By: #### M 100.2200, L7000.1800 #### [facility] [address] [place], [address] RBC (Bld) [#/Vol] 3.75 10*6/uL Low 4.2-5.4 [facility] Comment on above: Performed By: #### M 100.2200, L7000.1800 #### [facility] [address] [place], [address] RDW SD 41.8 fl Normal 35.1-43.9 [facility] Comment on above: Performed By: #### M 100.2200, L7000.1800 #### [facility] [address] [place], [address] WBC (Bld) [#/Vol] 9.9 10*3/uL Normal 4.4-11.0 [facility] Comment on above: Performed By: #### M 100.2200, L7000.1800 #### [facility] [address] [place], [address] CRPon 02-02-2025 C-REACTIVE PROT 11.70 mg/L High 0.0-3.0 [facility] Comment on above: Performed By: #### M 100.2200, L7000.1800 #### [facility] [address] [place], [address] Carbon dioxide, total [Moles /volume] in Central venous bloodOrdered By: Domo Friend on 02-02-2025 CO2 [Moles/Vol] 18.9 mmol/L Low 21.0-32.0 [facility] Chloride assayOrdered By: Ra clarita Weaver on 02-02-2025 Chloride [Moles/Vol] 103 mmol/L 98-108 [facility] Comprehensive Metabolic Prof ilon 02-02-2025 Albumin [Mass/Vol] 4.3 g/dL Normal 3.5-5.0 [facility] Comment on above: Performed By: #### L 500.4050 #### [facility] [address] [place], [address] Albumin/Globulin [Mass ratio] 1.4 {ratio} Normal 0.9-2.4 [facility] Comment on above: Performed By: #### L 500.4050 #### [facility] [address] [place], [address] ALK PHOS 64 U/L Normal 35-104 [facility] Comment on above: Performed By: #### L 500.4050 #### [facility] [address] [place], [address] ALT [Catalytic activity/Vol] 22 U/L Normal <=34 [facility] Comment on above: Performed By: #### L 500.4050 #### [facility] [address] [place], [address] AST [Catalytic activity/Vol] 14 U/L Normal <=31 [facility] Comment on above: Performed By: #### L 500.4050 #### [facility] [address] [place], [address] BUN/CRE 16.4 RATIO Normal 10-20 [facility] Comment on above: Performed By: #### L 500.4050 #### [facility] [address] [place], [address] Calcium [Mass/Vol] 9.2 mg/dL Normal 7.6-11.0 [facility] Comment on above: Performed By: #### L 500.4050 #### [facility] [address] [place], [address] Chloride [Moles/Vol] 103 mmol/L Normal 98-108 [facility] Comment on above: Performed By: #### L 500.4050 #### [facility] [address] [place], [address] CO2 [Moles/Vol] 18.9 mmol/L Low 21.0-32.0 [facility] Comment on above: Performed By: #### L 500.4050 #### [facility] [address] [place], [address] Creatinine [Mass/Vol] 0.56 mg/dL Low 0.70-1.20 [facility] Comment on above: Performed By: #### L 500.4050 #### [facility] [address] [place], [address] GAP 13 Normal 5-15 [facility] Comment on above: Performed By: #### L 500.4050 #### [facility] [address] [place], [address] GFR/1.73 sq M.predicted among non-blacks MDRD (S/P/Bld) [Vol rate/Area] 126 mL/min/{1.73_m2} Normal >60 [facility] Comment on above: Result Comment: mL/m in/1.73m2 CKD-EPI Creatinine Equation (2020) Performed By: #### L 500.4050 #### [facility] [address] [place], [address] Globulin (S) [Mass/Vol] 3.1 g/dL Normal 2.2-4.2 [facility] Comment on above: Performed By: #### L 500.4050 #### [facility] [address] [place], [address] Glucose [Mass/Vol] 132 mg/dL High 70-99 [facility] Comment on above: Performed By: #### L 500.4050 #### [facility] [address] [place], [address] Potassium [Moles/Vol] 3.9 mmol/L Normal 3.3-5.1 [facility] Comment on above: Performed By: #### L 500.4050 #### [facility] [address] [place], [address] Sodium [Moles/Vol] 134 mmol/L Normal 133-145 [facility] Comment on above: Performed By: #### L 500.4050 #### [facility] [address] [place], [address] T BILI < 0.15 Normal 0.00-1.30 [facility] Comment on above: Performed By: #### L 500.4050 #### [facility] [address] [place], [address] T PROT 7.4 g/dL Normal 5.9-8.4 [facility] Comment on above: Performed By: #### L 500.4050 #### [facility] [address] [place], [address] Urea nitrogen [Mass/Vol] 9 mg/dL Normal 4-19 [facility] Comment on above: Performed By: #### L 500.4050 #### [facility] [address] [place], [address] Eosinophil percentageOrdered By: Domo Weaver on 02-02-2025 Eosinophils/100 WBC (Bld) 0.7 % 0-5 [facility] Erythrocyte Sed Rateon 02-02 SED RATE 28 mm/hr Normal 0-30 [facility] Comment on above: Performed By: #### M 100.2200, L7000.1800 #### [facility] [address] [place], [address] Erythrocyte distribution wid th ratioOrdered By: Domo Weaver on 02-02-2025 Erythrocyte distribution width (RBC) [Ratio] 12.7 % 11.6-14.6 [facility] Erythrocyte distribution wid th standard deviationOrdered By: Domo Weaver on 02-02-2025 Erythrocyte distribution width (RBC) [Ratio] 41.8 fl 35.1-43.9 [facility] Erythrocyte sedimentation ra teOrdered By: Domo Weaver on 02-02-2025 ESR (Bld) [Velocity] 28 mm/h 0-30 [facility] Glomerular filtration rate ( GFR) estimation/1.73 sq m using serum, plasma, or whole bOrdered By: Domo Weaver on 02-02-2025 GFR/1.73 sq M.predicted among non-blacks MDRD (S/P/Bld) [Vol rate/Area] 126 mL/min/{1.73_m2} >60 [facility] Comment on above: mL/min/1.73m2 CKD-EP I Creatinine Equation (2020) Hematocrit Auto (Bld) [Volum e fraction]Ordered By: Domo Weaver on 02-02-2025 Hematocrit (Bld) [Volume fraction] 33.6 % Low 37-47 [facility] Hemoglobin measurementOrdere d By: Domo Weaver on 02-02-2025 Hemoglobin (Bld) [Mass/Vol] 11.2 g/dL Low 12.0-15.0 [facility] Immature granulocytes/100 WB C Auto (Bld)Ordered By: Domo Weaver on 02-02-2025 Immature granulocytes/100 WBC (Bld) 0.500 % 0.0-0.9 [facility] Comment on above: IG% - Immature Granu locytes (promyelocytes, myelocytes and metamyelocytes) > 1% indicates that a LEFT SHIFT is Present. International normalized rat io (INR) calculationOrdered By: Domo Weaver on 02-02-2025 INR Coag (Bld) [Relative time] 0.9 {INR} [facility] - Chemistry and C hemistry - challengeOrdered By: Domo Weaver on 02-02-2025 AST [Catalytic activity/Vol] 14 U/L <32 [facility] MCV (mean corpuscular volume ) determinationOrdered By: Domo Weaver on 02-02-2025 MCV (RBC) [Entitic vol] 89.6 fL 81-99 [facility] Mean corpuscular hemoglobin (MCH) determinationOrdered By: Domo Weaver on 02-02-2025 MCH (RBC) [Entitic mass] 29.9 pg 27.0-32.0 [facility] Mean corpuscular hemoglobin concentration (MCHC) determinationOrdered By: Domo Weaver on 02-02-2025 MCHC (RBC) [Mass/Vol] 33.3 g/dL 32-36 [facility] Mean platelet volume determi nationOrdered By: Domoyamileth Weaver on 02-02-2025 Platelet mean volume (Bld) [Entitic vol] 10.2 fL 6.2-12.0 [facility] Monocyte percentageOrdered B y: Domo Weaver on 02-02-2025 Monocytes/100 WBC (Bld) 4.5 % 0-10 [facility] Neutrophil percentageOrdered By: Domo Weaver on 02-02-2025 Neutrophils/100 WBC (Bld) 76.6 % High 47-70 [facility] Nucleated red blood cell per centageOrdered By: Domoyamileth Weaver on 02-02-2025 Nucleated RBC/100 WBC (Bld) [Ratio] 0 % 0-5 [facility] Health Care Law Specialist Office Visit Reporton 02-02-2025 Health Care Law Specialist Office Visit Report [facility] [address], [address] [place] [address] OFFICE VISIT Date of Service: 02/02/25 MR#: [id number] Acct: [id number] Name: MARIXA AMOS Rep #: [id number] : 1995 Provider: STEFANIE coronel Age/Sex: 29/F Location: [facility] Status: Signed Intake Vital Signs 01/25/25 14:45 02/02/25 15:25 Height 5 ft 3 in 5 ft 3 in Weight: 184 lb 8 oz 186 lb 4 oz BMI 32.6 33.0 BP 128/62 H 143/86 H Blood Pressure Location Rt brachial Position Sitting Intake Visit Reasons: fu early spotting per Director Underwriter Sales Required: No Is patient in pain?: No Allergies No Known Allergies Allergy (Verified 02/02/25 15:24) Medications ???Medication ???Instructions ???Recorded ???Confirmed ???Type ustekinumab 90 mg/mL subcutaneous 90 mg subcut Q8W #1 mL 07/07/24 0 02/02/25 Rx syringe (Stelara) aspirin 81 mg tablet,delayed 81 mg PO QDAY 01/01/25 02/02/25 Hi story release (Adult Aspirin Regimen) estradiol 2 mg tablet (Estrace) 6 mg PO QDAY 01/01/25 02/02/25 His tory prednisone 10 mg tablet 10 mg PO QDAY 01/01/25 02/02/25 Hi story metformin 1,000 mg tablet 1,500 mg PO QDAY 01/26/25 02/02/25 History multivit-min no.71-iron fum 28 cap PO 01/26/25 02/02/25 History mg-folate no.1 1 mg-dha 300 mg capsule (PNV-[place]) prednisone 10 mg tablet 10 mg PO QDAY 01/26/25 02/02/25 Hi story progesterone oil 75 mg IM QHS 01/26/25 02/02/25 His tory Post menopausal: No Patient : Yes : No [facility] Medical History Obesity (BMI 30.0-34.9) Other obesity Rectal bleeding Endometriosis Low iron Anemia Latent tuberculosis Ulcerative colitis Surgical History History of esophagogastroduodenosco py (EGD) History of laparoscopy History of colonoscopy Family History Grandmother Diabetes Maternal Grandfather Diabetes Paternal Father Hypertension Hyperlipidemia CAD (coronary artery disease) CABG 2 years ago Social History adopted: No household members: spouse housing: house current occupational status: employed current occupation: [employer] current occupational exposures/hazards: No pets and animals: Yes pets and animals: dog(s) history of recent travel: No sexually active: Yes Smoking Status: Never smoker alcohol intake: never substance use type: does not use well-balanced diet: daily or most days caffeine: No eating out: rarely or never during the past year weight has: remained stable what type of physical activity do you participate in: walking frequency: 3-4 times per week duration: 45-60 minutes/day cathy/mormon: None seatbelt use: always do you feel safe at home: Yes additional social history: -Romel- [employer] HPI fu early spotting per Details: MARIXA AMOS is a 29 year old who presents for early bleeding in 1st trimester. no longer having bleeding, mild pink discharge. History 2 Elective abortions Hx Para 0 Spontaneous abortions 1 Hx # Term Pregnancies Ectopic pregnancies Hx # Pregnancies Multiple births # of living children Past Pregnancies Del. Date Name GA/Weeks Outcome Route Bth Weight Infant Gen Labor Lgth Anesthesia Del Locatn Provider FOB Unknown 07/2023 20 Delivery Date: Last Updated by: Jacquie Durán demise, possible subchorionic hematoma Exam Const General: cooperative and comfortable Resp Effort Inspection: normal respiratory effort Speculum Exam - Vagina: normal appearance of the vagina Coding Level of Care Code Off vis,est,level 3 Diagnoses Subchorionic hematoma in first trimester O41.8X10; O46.8X1 Assessment and Plan Assessment and Plan (1) Subchorionic hematoma in first trimester: Status: Acute Comment: seen on US in ER 01/22/25 and with fertility specialist Plan: +FHT on us today 166. 6/6, NOB scheduled for wednesday. 02/02/25 1609 Date Mary Beth NASCIMENTO Cosigner Signature: Date (if applicable) CC: Normal [facility] Platelet countOrdered By: Ra otto Friend on 02-02-2025 Platelets (Bld) [#/Vol] 388 10*3/uL 150-450 [facility] Potassium measurement (mass/ volume)Ordered By: Domo Weaver on 02-02-2025 Potassium (Unsp spec) [Mass/Vol] 3.9 mmol/L 3.3-5.1 [facility] Prothrombin Time w/INRon INR Coag (PPP) [Relative time] 0.9 {INR} Normal [facility] Comment on above: Performed By: #### M 100.2200, L7000.1800 #### [facility] [address] [facility] [place], [place], [id number] PT Coag (PPP) [Time] 12.2 s Normal 11.7-14.9 [facility] Comment on above: Performed By: #### M 100.2200, L7000.1800 #### [facility] [address] [facility] [place], [place], [id number] Prothrombin timeOrdered By: Domo Weaver on 02-02-2025 PT Coag (PPP) [Time] 12.2 s 11.7-14.9 [facility] RBC Auto (Bld) [#/Vol]Ordere d By: Domo Weaver on 02-02-2025 RBC (Bld) [#/Vol] 3.75 10*6/uL Low 4.2-5.4 [facility] Serum creatinine measurement (mass/volume)Ordered By: Domo Weaver on 02-02-2025 Creatinine [Mass/Vol] 0.56 mg/dL Low 0.70-1.20 [facility] Serum globulin measurementOr dered By: Domo Weaver on 02-02-2025 Globulin (S) [Mass/Vol] 3.1 g/dL 2.2-4.2 [facility] Serum glucose measurement (m ass/volume)Ordered By: Domo Weaver on 02-02-2025 Glucose [Mass/Vol] 132 mg/dL High 70-99 [facility] Serum or plasma C reactive p rotein measurement (mass/volume)Ordered By: Domo Weaver on 02-02-2025 CRP [Mass/Vol] 11.70 mg/L High 0.0-3.0 [facility] Serum or plasma alanine parisi otransferase (ALT) measurementOrdered By: Domo Weaver on 02-02-2025 ALT [Catalytic activity/Vol] 22 U/L <35 [facility] Serum or plasma albumin arielle urement (mass/volume)Ordered By: Domo Weaver on 02-02-2025 Albumin [Mass/Vol] 4.3 g/dL 3.5-5.0 [facility] Serum or plasma albumin/glob ulin mass ratioOrdered By: Domo Weaver on 02-02-2025 Albumin/Globulin [Mass ratio] 1.4 {ratio} 0.9-2.4 [facility] Serum or plasma alkaline marcelo sphatase measurementOrdered By: Domo Weaver on 02-02-2025 ALP [Catalytic activity/Vol] 64 U/L 35-104 [facility] Serum or plasma calcium arielle urement (mass/volume)Ordered By: Domo Weaver on 02-02-2025 Calcium [Mass/Vol] 9.2 mg/dL 7.6-11.0 [facility] Serum or plasma urea nitroge n measurement (mass/volume)Ordered By: Domo Weaver on 02-02-2025 Urea nitrogen [Mass/Vol] 9 mg/dL 4-19 [facility] Sodium levelOrdered By: Alisa Michelle on 02-02-2025 Sodium [Moles/Vol] 134 mmol/L 133-145 [facility] Total proteinOrdered By: Lai Weaver on 02-02-2025 Protein [Mass/Vol] 7.4 g/dL 5.9-8.4 [facility] White blood cell (WBC) count Ordered By: Domo Weaver on 02-02-2025 WBC (Bld) [#/Vol] 9.9 10*3/uL 4.4-11.0 [facility] - Chemistry and C hemistry - challengeOrdered By: Carmen Shearer on 01-26-2025 HCG ( test) Ql (U) Positive [facility] Office Visit Reporton [address] [facility] [address] [address] OFFICE VISIT Date of Service: 01/26/25 MR#: [id number] Acct: [id number] Patient: MARIXA AMOS Rep #: [id number] : 1995 Provider: Dr. Carmen dixon MD Age/Sex: 29/F [facility] Status: Signed Intake Vital Signs 07/12/24 08:32 01/25/25 14:45 Height 5 ft 3 in 5 ft 3 in Weight: 184 lb 8 oz BMI 32.6 BP 128/62 H Blood Pressure Location Rt brachial Position Sitting Intake Visit Reasons: Pre new ob, confirm preg, vitals Chief Complaint: Fertility consult Director Underwriter Sales Required: No Accompanied by: Is patient in [...] mg-folate no.1 1 mg-dha 300 mg capsule (PNV-[place]) prednisone 10 mg tablet 10 mg PO [...] , unspecified, unspecified trimester Culture, Urine 01/26/25 O09. - Supervision of high risk , unspecified, unspecified trimester Syphilis Antibodies 01/26/25 O09.90 - Supervision of high risk , unspecified, unspecified trimester Chlamydia/GC ALEKSEY aptima 01/26/25 O09. - Supervision of high risk , unspecified, unspecified trimester HIV 01/26/25 O09.90 - Supervision of high risk , unspecified, unspecified trimester Hemoglobin A1c 01/26/25 O09.90 - Supervision of high risk , unspecified, unspecified trimester, O99.210 - Obesity complicating , unspecified trimester POC Urine 01/26/25 N91.2 - Amenorrhea, unspecified 01/27/25 1136 Date [facility]: Date (if applicable) CC: Normal [facility] OB TRANSVAGINALon 025 OB TRANSVAGINAL Interpreted by: Henrietta Herndon Indication [...] transvaginal evaluation for early dating. View: Sufficient [facility] Blood type and Indirect anti body screen panel (Bld)on 01-22-2025 ABO group Nom (Bld) B [facility] Blood group antibody screen Ql Negative [facility] D Ag Ql (Bld) Positive [facility] ABO group Nom (Bld) B [facility] Comment on above: Performed By: #### 2 243-4 #### MARIA E STEFFI ([id number]) [facility] ([facility] [address] [place] [address] Blood group antibody screen Ql Negative Normal [facility] Comment on above: Performed By: #### 2 243-4 #### MARIA E KAPADIA ([id number]) [facility] ([facility] [address] [place] [address] D Ag Ql (Bld) Positive Normal [facility] Comment on above: Performed By: #### 2 243-4 #### MARIA E KAPADIA ([id number]) [facility] ([facility] [address] [place] [address] C. trachomatis and N. gonorr hoeae DNA ALEKSEY+probe Nom (Unsp spec)on 01-22-2025 C. trachomatis rRNA ALEKSEY+probe Ql (Unsp spec) Negative Normal Negative [facility] Comment on above: Order Comment: REF V ALUES FOLLICULAR PHASE 20-144 MID CYCLE 64-357 LUTEAL PHASE 56-214 POSTMENOPAUSE < 32 PREPUBERTY < 20 FEMALE 10-18Y 8-110 MALE 10-18Y < 20 ADULT MALE < 40 Performed By: #### 2 243-4 #### MARIA E KAPADIA ([id number]) [facility] ([facility]) [address] [place] [address] N. gonorrhoeae DNA Probe+sig amp Ql (Unsp spec) Negative Normal Negative [facility] Comment on above: Order Comment: REF V ALUES FOLLICULAR PHASE 20-144 MID CYCLE 64-357 LUTEAL PHASE 56-214 POSTMENOPAUSE < 32 PREPUBERTY < 20 FEMALE 10-18Y 8-110 MALE 10-18Y < 20 ADULT MALE < 40 Performed By: #### 2 243-4 #### MARIA E KAPADIA ([id number]) [facility] ([facility] [address] [place] [address] CBC W Auto Differential pane l (Bld)on 01-22-2025 Basophils (Bld) [#/Vol] 0.04 10*3/uL [facility] Basophils/100 WBC (Bld) 0.5 % 0.0 - 2.0 % [facility] Eosinophils (Bld) [#/Vol] 0.07 10*3/uL [facility] Eosinophils/100 WBC (Bld) 0.8 % 0.0 - 6.0 % [facility] Erythrocyte distribution width (RBC) [Ratio] 12.7 % 11.5 - 14.5 % [facility] Hematocrit (Bld) [Volume fraction] 32.8 % Low 36.0 - 46.0 % [facility] Hemoglobin (Bld) [Mass/Vol] 11.1 g/dL Low 12.0 - 16.0 g/dL [facility] Immature granulocytes (Bld) [#/Vol] 0.05 10*3/uL [facility] Immature granulocytes/100 WBC (Bld) 0.6 % 0.0 - 0.9 % [facility] Comment on above: Immature Granulocyte Count (IG) includes promyelocytes, myelocytes and metamyelocytes but does not include bands. Percent differential counts (%) should be interpreted in the context of the absolute cell counts (cells/UL). Interpretation and review of laboratory results Abnormal [facility] Lymphocytes (Bld) [#/Vol] 1.19 10*3/uL Low [facility] Lymphocytes/100 WBC (Bld) 13.9 % 13.0 - 44.0 % [facility] MCH (RBC) [Entitic mass] 30.1 pg 26.0 - 34.0 pg [facility] MCHC (RBC) [Mass/Vol] 33.8 g/dL 32.0 - 36.0 g/dL [facility] MCV (RBC) [Entitic vol] 89 fL 80 - 100 fL [facility] Monocytes (Bld) [#/Vol] 0.34 10*3/uL [facility] Monocytes/100 WBC (Bld) 4 % 2.0 - 10.0 % [facility] Neutrophils (Bld) [#/Vol] 6.86 10*3/uL [facility] Comment on above: Percent differential counts (%) should be interpreted in the context of the absolute cell counts (cells/uL). Neutrophils/100 WBC (Bld) 80.2 % 40.0 - 80.0 % [facility] Nucleated RBC/100 WBC (Bld) [Ratio] 0 % [facility] Platelets (Bld) [#/Vol] 319 10*3/uL [facility] RBC (Bld) [#/Vol] 3.69 10*6/uL Low [facility] WBC (Bld) [#/Vol] 8.6 10*3/uL [facility] Basophils (Bld) [#/Vol] 0.04 x10*3/uL Normal 0.00-0.10 [facility] Comment on above: Performed By: #### 2 243-4 #### MARIA E KAPADIA ([id number]) [facility] ([facility]) [address] [place] [address] Basophils/100 WBC (Bld) 0.5 % Normal 0.0-2.0 [facility] Comment on above: Performed By: #### 2 243-4 #### MARIA E KAPADIA ([id number]) [facility] ([facility]) [address] [place] [address] Eosinophils (Bld) [#/Vol] 0.07 x10*3/uL Normal 0.00-0.70 [facility] Comment on above: Performed By: #### 2 243-4 #### MARIA E KAPADIA ([id number]) [facility] ([facility]) [address] [place] [address] Eosinophils/100 WBC (Bld) 0.8 % Normal 0.0-6.0 [facility] Comment on above: Performed By: #### 2 243-4 #### MARIA E KAPADIA ([id number]) [facility] ([facility]) [address] [place] [address] Erythrocyte distribution width (RBC) [Ratio] 12.7 % Normal 11.5-14.5 [facility] Comment on above: Performed By: #### 2 243-4 #### MARIA E KAPADIA ([id number]) [facility] ([facility]) [address] [place] [address] Hematocrit (Bld) [Volume fraction] 32.8 % Low 36.0-46.0 [facility] Comment on above: Performed By: #### 2 243-4 #### MARIA E KAPADIA ([id number]) [facility] ([facility]) [address] [place] [address] Hemoglobin (Bld) [Mass/Vol] 11.1 g/dL Low 12.0-16.0 [facility] Comment on above: Performed By: #### 2 243-4 #### MARIA E KAPADIA ([id number]) [facility] ([facility]) [address] [place] [address] Immature granulocytes (Bld) [#/Vol] 0.05 x10*3/uL Normal 0.00-0.70 [facility] Comment on above: Performed By: #### 2 243-4 #### MARIA E KAPADIA ([id number]) [facility] ([facility] [address] [place] [address] Immature granulocytes/100 WBC (Bld) 0.6 % Normal 0.0-0.9 [facility] Comment on above: Result Comment: Ewa ture Granulocyte Count (IG) includes promyelocytes, myelocytes and metamyelocytes but does not include bands. Percent differential counts (%) should be interpreted in the context of the absolute cell counts (cells/UL). Performed By: #### 2 243-4 #### MARIA E KAPADIA ([id number]) [facility] ([facility]) [address] [place] [address] Lymphocytes (Bld) [#/Vol] 1.19 x10*3/uL Low 1.20-4.80 [facility] Comment on above: Performed By: #### 2 243-4 #### MARIA E KAPADIA ([id number]) [facility] ([facility] [address] [place] [address] Lymphocytes/100 WBC (Bld) 13.9 % Normal 13.0-44.0 [facility] Comment on above: Performed By: #### 2 243-4 #### MARIA E KAPADIA ([id number]) [facility] ([facility]) [address] [place] [address] MCH (RBC) [Entitic mass] 30.1 pg Normal 26.0-34.0 [facility] Comment on above: Performed By: #### 2 243-4 #### MARIA E KAPADIA ([id number]) [facility] ([facility] [address] [place] [address] MCHC (RBC) [Mass/Vol] 33.8 g/dL Normal 32.0-36.0 [facility] Comment on above: Performed By: #### 2 243-4 #### MARIA E KAPADIA ([id number]) [facility] ([facility]) [address] [place] [address] MCV (RBC) [Entitic vol] 89 fL Normal 80-100 [facility] Comment on above: Performed By: #### 2 243-4 #### MARIA E KAPADIA ([id number]) [facility] ([facility]) [address] [place] [address] Monocytes (Bld) [#/Vol] 0.34 x10*3/uL Normal 0.10-1.00 [facility] Comment on above: Performed By: #### 2 243-4 #### MARIA E KAPADIA ([id number]) [facility] ([facility]) [address] [id number] Monocytes/100 WBC (Bld) 4.0 % Normal 2.0-10.0 [facility] Comment on above: Performed By: #### 2 243-4 #### MARIA E KAPADIA ([id number]) [facility] ([facility] [address] [place] [address] Neutrophils (Bld) [#/Vol] 6.86 x10*3/uL Normal 1.20-7.70 [facility] Comment on above: Result Comment: Perc ent differential counts (%) should be interpreted in the context of the absolute cell counts (cells/uL). Performed By: #### 2 243-4 #### MARIA E KAPADIA ([id number]) [facility] ([facility] [address] [place] [address] Neutrophils/100 WBC (Bld) 80.2 % Normal 40.0-80.0 [facility] Comment on above: Performed By: #### 2 243-4 #### MARIA E KAPADIA ([id number]) [facility] ([facility]) [address] [place] [phone] Nucleated RBC/100 WBC (Bld) [Ratio] 0.0 /100 WBCs Normal 0.0-0.0 [facility] Comment on above: Performed By: #### 2 243-4 #### MARIA E KAPADIA ([id number]) [facility] ([facility] [address] [place] [address] Platelets (Bld) [#/Vol] 319 x10*3/uL Normal 150-450 [facility] Comment on above: Performed By: #### 2 243-4 #### MARIA E KAPADIA ([id number]) [facility] ([facility] [address] [place] [address] RBC (Bld) [#/Vol] 3.69 x10*6/uL Low 4.00-5.20 [facility] Comment on above: Performed By: #### 2 243-4 #### AMRIA E KAPADIA ([id number]) [facility] ([facility] [address] [place] [address] WBC (Bld) [#/Vol] 8.6 x10*3/uL Normal 4.4-11.[address] [facility] Comment on above: Performed By: #### 2 243-4 #### MARIA E KAPADIA ([id number]) [facility] ([facility]) [address] [place] [address] Choriogonadotropin.beta subu niton 01-22-2025 [place] [address] m[IU]/mL High <5 U [facility] Comment on above: Order Comment: REF V [...] #### 2 243-4 #### MARIA E STEFFI ([id number]) [facility] ([facility] [address] [place] [address] Comprehensive metabolic 2000 panelon 01-22-2025 Albumin BCP dye [Mass/Vol] 4.5 g/dL 3.4 - 5.0 g/dL [facility] ALP [Catalytic activity/Vol] 56 U/L 33 - 110 U/L [facility] ALT With P-5'-P [Catalytic activity/Vol] 21 U/L 7 - 45 U/L [facility] Comment on above: Patients treated wit h Sulfasalazine may generate falsely decreased results for ALT. Anion gap [Moles/Vol] 15 mmol/L 10 - 2 0 mmol/L [facility] AST With P-5'-P [Catalytic activity/Vol] 18 U/L 9 - 39 U/L [facility] Bilirubin [Mass/Vol] 0.2 mg/dL 0.0 - 1 .2 mg/dL [facility] Calcium [Mass/Vol] 9.4 mg/dL 8.6 - 10. 3 mg/dL [facility] Chloride [Moles/Vol] 106 mmol/L 98 - 10 7 mmol/L [facility] CO2 [Moles/Vol] 19 mmol/L Low 21 - 32 mmol/L [facility] Creatinine [Mass/Vol] 0.83 mg/dL 0.50 - 1.05 mg/dL [facility] eGFR - PINF [facility] Comment on above: Calculations of isabelle mated GFR are performed using the 2020 CKD-EPI Study Refit equation without the race variable for the IDMS-Traceable creatinine methods. https://jasn.asnjournals.org/content//ASN.63141 98740 Glucose [Mass/Vol] 110 mg/dL High 74 - 99 mg/dL [facility] Interpretation and review of laboratory results Abnormal [facility] Potassium [Moles/Vol] 4.3 mmol/L 3.5 - 5.3 mmol/L [facility] Protein [Mass/Vol] 6.9 g/dL 6.4 - 8.2 g/dL [facility] Sodium [Moles/Vol] 136 mmol/L 136 - 145 mmol/L [facility] Urea nitrogen [Mass/Vol] 10 mg/dL 6 - 23 mg/dL [facility] Albumin BCP dye [Mass/Vol] 4.5 g/dL Normal 3.4-5.0 [facility] Comment on above: Performed By: #### 2 243-4 #### MARIA E KAPADIA ([id number]) [facility] ([facility]) [address] [place] [address] ALP [Catalytic activity/Vol] 56 U/L Normal 33-110 [facility] Comment on above: Performed By: #### 2 243-4 #### MARIA E KAPADIA ([id number]) [facility] ([facility]) [address] [place] [address] ALT With P-5'-P [Catalytic activity/Vol] 21 U/L Normal 7-45 [facility] Comment on above: Result Comment: Silvina ents treated with Sulfasalazine may generate falsely decreased results for ALT. Performed By: #### 2 243-4 #### MARIA E KAPADIA ([id number]) [facility] ([facility]) [address] [place] [address] Anion gap [Moles/Vol] 15 mmol/L Normal 10-20 [facility] Comment on above: Performed By: #### 2 243-4 #### MARIA E KAPADIA ([id number]) [facility] ([facility] [address] [place] [address] AST With P-5'-P [Catalytic activity/Vol] 18 U/L Normal 9-39 [facility] Comment on above: Performed By: #### 2 243-4 #### MARIA E KAPADIA ([id number]) [facility] ([facility]) [address] [place] [phone] Bilirubin [Mass/Vol] 0.2 mg/dL Normal 0.0-1.2 [facility] Comment on above: Performed By: #### 2 243-4 #### MARIA E KAPADIA ([id number]) [facility] ([facility] [address] [place] [address] Calcium [Mass/Vol] 9.4 mg/dL Normal 8.6-10.3 [facility] Comment on above: Performed By: #### 2 243-4 #### MARIA E KAPADIA ([id number]) [facility] ([facility] [address] [place] [address] Chloride [Moles/Vol] 106 mmol/L Normal 98-107 [facility] Comment on above: Performed By: #### 2 243-4 #### MARIA E KAPADIA ([id number]) [facility] ([facility] [address] [place] [address] CO2 [Moles/Vol] 19 mmol/L Low 21-32 [facility] Comment on above: Performed By: #### 2 243-4 #### MARIA E KAPADIA ([id number]) [facility] ([facility] [address] [place] [address] Creatinine [Mass/Vol] 0.83 mg/dL Normal 0.50-1.05 [facility] Comment on above: Performed By: #### 2 243-4 #### MARIA E KAPADIA ([id number]) [facility] ([facility] [address] [place] [address] GFR/1.73 sq M.predicted MDRD (S/P/Bld) [Vol rate/Area] mL/min/{1.73_m2} Normal >60 [facility] Comment on above: Result Comment: Calc ulations of estimated GFR are performed using the 2020 CKD-EPI Study Refit equation without the race variable for the IDMS-Traceable creatinine methods. https://jasn.asnjournals.org/content//ASN.09298 76524 Performed By: #### 2 243-4 #### MARIA E KAPADIA ([id number]) [facility] ([facility] [address] [place] [address] Glucose [Mass/Vol] 110 mg/dL High 74-99 [facility] Comment on above: Performed By: #### 2 243-4 #### MARIA E KAPADIA ([id number]) [facility] ([facility] [address] [place] [address] Potassium [Moles/Vol] 4.3 mmol/L Normal 3.5-5.3 [facility] Comment on above: Performed By: #### 2 243-4 #### MARIA E KAPADIA ([id number]) [facility] ([facility] [address] [place] [address] Protein [Mass/Vol] 6.9 g/dL Normal 6.4-8.2 [facility] Comment on above: Performed By: #### 2 243-4 #### MARIA E KAPADIA ([id number]) [facility] ([facility] [address] [place] [address] Sodium [Moles/Vol] 136 mmol/L Normal 136-145 [facility] Comment on above: Performed By: #### 2 243-4 #### MARIA E KAPADIA ([id number]) [facility] ([facility] [address] [place] [address] Urea nitrogen [Mass/Vol] 10 mg/dL Normal 6-23 [facility] Comment on above: Performed By: #### 2 243-4 #### MARIA E KAPADIA ([id number]) [facility] ([facility] [address] [place] [address] HCG.beta subunit Qnon 2024 Interpretation and review of laboratory results Abnormal [facility] Total HCG measuremen t is performed using the [employer] [place] Access Immunoassay which detects intact HCG and free beta HCG subunit. This test is not indicated for use as a tumor marker. HCG testing is performed using a different test methodology at [facility] than other legacy [facility]. Direct result comparison should only be made within the same method. [facility] Human Chorionic Gonadotropin , Serum Quantitativeon 01-22-2025 [place] [address] m[IU]/mL [facility] Comment on above: Low-level positive H CG [...] Ql (Unsp spec) None Seen None Seen [facility] T. vaginalis Wet prep Ql (Unsp spec) None Seen None Seen [facility] WBC Wet prep Ql (Vag fld) 1-2 [facility] Yeast Wet prep Ql (Vag fld) None Seen None Seen [facility] Microscopic observation Wet prep Nom (Unsp spec)on 01-22-2025 Clue cells Wet prep Ql (Unsp spec) None Seen Normal None Seen [facility] Comment on above: Performed By: #### 2 243-4 #### MARIA E KAPADIA ([id number]) [facility] ([facility]) [address] [place] [address] T. vaginalis Wet prep Ql (Unsp spec) None Seen Normal None Seen [facility] Comment on above: Performed By: #### 2 243-4 #### MARIA E KAPADIA ([id number]) [facility] ([facility]) [address] [place] [address] WBC Wet prep Ql (Vag fld) 1-2 Normal [facility] Comment on above: Performed By: #### 2 243-4 #### MARIA E KAPADIA ([id number]) [facility] ([facility] [address] [place] [address] Yeast Wet prep Ql (Vag fld) None Seen Normal None Seen [facility] Comment on above: Performed By: #### 2 243-4 #### MARIA E KAPADIA ([id number]) [facility] ([facility] [address] [place] [address] US OB LESS THAN 14 WEEKS EAR Rafy 01-22-2025 US OB LESS THAN 14 WEEKS EARLY Interpreted By: Lisa Parmar, STUDY: US OB LESS THAN 14 WEEKS EARLY 01/22/2025 12:37 pm INDICATION: Signs/Symptoms:6 weeks with brown/pink discharge and lower back pain COMPARISON: 01/18/2025 ACCESSION NUMBER(S): [id number] ORDERING CLINICIAN: ZANE PRYOR TECHNIQUE: Transabdominal and [...] Lisa Parmar 01/22/2025 1:12 PM Dictation workstation: [id number] [facility] US for in first tr imesteron 01-22-2025 Single live intraute rine gestation of 6 weeks and 5 days sonographic gestational age. There has been normal interval growth since 01/18/2025. 0.4 x 0.6 x 0.9 cm subchorionic hemorrhage. Signed by: Lisa Parmar 01/22/2025 1:12 PM Dictation workstation: [id number] [facility] ERODAL Interpreted By: Lisa Parmar, STUDY: US OB LESS THAN 14 WEEKS EARLY 01/22/2025 12:37 pm INDICATION: Signs/Symptoms:6 weeks with brown/pink discharge and lower back pain COMPARISON: 01/18/2025 ACCESSION NUMBER(S): [id number] ORDERING CLINICIAN: ZANE PRYOR TECHNIQUE: Transabdominal and [...] lower back pain COMPARISON: 01/18/2025 ACCESSION NUMBER(S): [id number] ORDERING CLINICIAN: ZANE PRYOR TECHNIQUE: Transabdominal and [...] Lisa Parmar 01/22/2025 1:12 PM Dictation workstation: [id number] [facility] Work Phone: Radiology Study observation (narrative) [facility] Work Phone: US for in first tr imesterOrdered By: Lisa Parmar on 01-22-2025 [facility] Work Phone: Urinalysis complete W Reflex Culture panel (U)on 01-22-2025 Appearance (U) Clear Clear [facility] Bilirubin (U) [Mass/Vol] Negative NEGATIVE mg/dL [facility] Color (U) Colorless Abnormal Light-Yellow , Yellow, Dark-Yellow [facility] Glucose Auto test strip (U) [Mass/Vol] Normal Normal mg/dL [facility] Interpretation and review of laboratory results Abnormal [facility] Ketones (U) [Mass/Vol] Negative NEGAT CARMEN mg/dL [facility] Leukocyte esterase Auto test strip Ql (U) Negative NEGATIVE [facility] Nitrite Auto test strip Ql (U) Negative NEGATIVE [facility] pH (U) 8 [pH] 5.0, 5.5, 6.0, 6.5, 7.0, 7.5, 8.0 [facility] Protein (U) [Mass/Vol] Negative NEGAT CARMEN, 10 (TRACE), 20 (TRACE) mg/dL [facility] RBC (U) [#/Vol] Negative NEGATIVE mg/dL [facility] Specific gravity (U) [Rel density] 1.006 1.005 - 1.035 [facility] Urobilinogen (U) [Mass/Vol] Normal Normal mg/dL [facility] Appearance (U) Clear Normal Clear [facility] Comment on above: Performed By: #### 2 243-4 #### MARIA E KAPADIA ([id number]) [facility] [address] [place] [address] Bilirubin (U) [Mass/Vol] Negative Normal NEGATIVE [facility] Comment on above: Performed By: #### 2 243-4 #### MARIA E KAPADIA ([id number]) [facility] ([facility]) [address] [place] [address] Color (U) Colorless Normal Light-Yellow , Yellow, Dark-Yellow [facility] Comment on above: Performed By: #### 2 243-4 #### MARIA E KAPADIA ([id number]) [facility] [address] [place] [address] Glucose Auto test strip (U) [Mass/Vol] Normal Normal Normal [facility] Comment on above: Performed By: #### 2 243-4 #### MARIA E KAPADIA ([id number]) [facility] ([facility] [address] [place] [address] Ketones (U) [Mass/Vol] Negative Normal NEGATIVE Un [facility] Comment on above: Performed By: #### 2 243-4 #### MARIA E KAPADIA ([id number]) [facility] ([facility] [address] [place] [address] Leukocyte esterase Auto test strip Ql (U) Negative Normal NEGATIVE [facility] Comment on above: Performed By: #### 2 243-4 #### MARIA E KAPADIA ([id number]) [facility] [address] [place] [address] Nitrite Auto test strip Ql (U) Negative Normal NEGATIVE [facility] Comment on above: Performed By: #### 2 243-4 #### MARIA E KAPADIA ([id number]) [facility] ([facility] [address] [place] [address] pH (U) 8.0 [pH] Normal 5.0, 5.5, 6.0, 6.5, 7.0, 7.5, 8.0 [facility] Comment on above: Performed By: #### 2 243-4 #### MARIA E KAPADIA ([id number]) [facility] ([facility] [address] [place] [address] Protein (U) [Mass/Vol] Negative Normal NEGAT CARMEN, 10 (TRACE), 20 (TRACE) [facility] Comment on above: Performed By: #### 2 243-4 #### MARIA E KAPADIA ([id number]) [facility] ([facility] [address] [place] [address] RBC (U) [#/Vol] Negative Normal NEGATIVE [facility] Comment on above: Performed By: #### 2 243-4 #### MARIA E KAPADIA ([id number]) [facility] ([facility] [address] [place] [id number] Specific gravity (U) [Rel density] 1.006 Normal 1.005-1.035 [place] [facility] Comment on above: Performed By: #### 2 243-4 #### MARIA E KAPADIA ([id number]) [facility] ([facility] [address] [id number] Urobilinogen (U) [Mass/Vol] Normal Normal Normal [facility] Comment on above: Performed By: #### 2 243-4 #### MARIA E KAPADIA ([id number]) [facility] ([facility] [address] [id number] US OB TRANSVAGINALon 025 US OB TRANSVAGINAL Interpreted by: Imelda Bell kt Indication ======== Confirm Gestational Age ========= [...] evaluation for early dating. View: Sufficient Normal [facility] US OB TRANSVAGINALon 025 US OB TRANSVAGINAL Interpreted by: Gavino Ratliff Indication [...] evaluation for early dating. View: Sufficient Normal [facility] Choriogonadotropin.beta subu niton 01-09-2025 HCG.beta subunit Qn 1756 m[IU]/mL High <5 [facility] Comment on above: Order Comment: REF [...] #### 2 243-4 #### MARIA E STEFFI ([id number]) [facility] ([facility] [address] [place] [address] Absolute lymphocyte countOrd ered By: Domo Weaver on 01-06-2025 Lymphocytes Auto (Unsp spec) [#/Vol] 2.66 10*3/uL 0.83-4.51 [facility] Absolute neutrophil countOrd ered By: Domo Weaver on 01-06-2025 Neutrophils (Bld) [#/Vol] 5.5 10*3/uL 2.0-7.7 [facility] Anion gap in Serum or Plasma Ordered By: Domo Weaver on 01-06-2025 Anion gap [Moles/Vol] 13 mmol/L 5-15 [facility] Automated lymphocyte count a s percentage of total leukocytesOrdered By: Domo Weaver on 01-06-2025 Lymphocytes/100 WBC Auto (Unsp spec) 30.2 % 19-41 [facility] BUN/creatinine ratioOrdered By: Domo Weaver on 01-06-2025 Urea nitrogen/Creatinine [Mass ratio] 15.8 mg/mg 10- [facility] Basophil percentageOrdered B y: Domo Weaver on 01-06-2025 Basophils/100 WBC (Bld) 0.7 % 0-1 [facility] Bilirubin, totalOrdered By: Domo Weaver on 01-06-2025 Bilirubin [Mass/Vol] 0.32 mg/dL 0.00-1.30 [facility] CBC W/Diff, Automatedon 12-28-2024 Absolute Lymph 2.66 X10 3/uL Normal 0.83-4.51 [facility] Comment on above: Performed By: #### M 100.2200, L7000.1800 #### [facility] [address] [place], [address] Absolute Neut 5.5 X10 3/uL Normal 2.0-7.7 [facility] Comment on above: Performed By: #### M 100.2200, L7000.1800 #### [facility] [address] [place], [address] Basophils/100 WBC (Bld) 0.7 % Normal 0-1 [facility] Comment on above: Performed By: #### M 100.2200, L7000.1800 #### [facility] [address] [place], [address] Eosinophils/100 WBC (Bld) 1.4 % Normal 0-5 [facility] Comment on above: Performed By: #### M 100.2200, L7000.1800 #### [facility] [address] [place], [address] Erythrocyte distribution width (RBC) [Ratio] 12.3 % Normal 11.6-14.6 [facility] Comment on above: Performed By: #### M 100.2200, L7000.1800 #### [facility] [address] [place], [address] Hematocrit (Bld) [Volume fraction] 34.3 % Low 37-47 [facility] Comment on above: Performed By: #### M 100.2200, L7000.1800 #### [facility] [address] [place], [address] Hemoglobin (Bld) [Mass/Vol] 11.2 g/dL Low 12.0-15.0 [facility] Comment on above: Performed By: #### M 100.2200, L7000.1800 #### [facility] [address] [place], [address] IG% 0.300 Normal 0.0-0.9 [facility] Comment on above: Result Comment: IG% - Immature Granulocytes (promyelocytes, myelocytes and metamyelocytes) > 1% indicates that a LEFT SHIFT is Present. Performed By: #### M 100.2200, L7000.1800 #### [facility] [address] [place], [address] Lymphocytes/100 WBC (Bld) 30.2 % Normal 19-41 [facility] Comment on above: Performed By: #### M 100.2200, L7000.1800 #### [facility] [address] [place], [address] MCH (RBC) [Entitic mass] 29.6 pg Normal 27.0-32.0 [facility] Comment on above: Performed By: #### M 100.2200, L7000.1800 #### [facility] [address] [place], [address] MCHC (RBC) [Mass/Vol] 32.7 g/dL Normal 32-36 [facility] Comment on above: Performed By: #### M 100.2200, L7000.1800 #### [facility] [address] [place], [address] MCV (RBC) [Entitic vol] 90.7 fL Normal 81-99 [facility] Comment on above: Performed By: #### M 100.2200, L7000.1800 #### [facility] [address] [place], [address] Monocytes/100 WBC (Bld) 4.7 % Normal 0-10 [facility] Comment on above: Performed By: #### M 100.2200, L7000.1800 #### [facility] [address] [place], [address] Neutrophils/100 WBC (Bld) 62.7 % Normal 47-70 [facility] Comment on above: Performed By: #### M 100.2200, L7000.1800 #### [facility] [address] [place], [address] Nucleated RBC (Bld) [#/Vol] 0 10*3/uL Normal 0-5 [facility] Comment on above: Performed By: #### M 100.2200, L7000.1800 #### [facility] [address] [place], [address] Platelet mean volume (Bld) [Entitic vol] 10.0 fL Normal 6.2-12.0 [facility] Comment on above: Performed By: #### M 100.2200, L7000.1800 #### [facility] [address] [place], [address] Platelets (Bld) [#/Vol] 358 10*3/uL Normal 150-450 [facility] Comment on above: Performed By: #### M 100.2200, L7000.1800 #### [facility] [address] [place], [address] RBC (Bld) [#/Vol] 3.78 10*6/uL Low 4.2-5.4 [facility] Comment on above: Performed By: #### M 100.2200, L7000.1800 #### [facility] [address] [place], [address] RDW SD 40.6 fl Normal 35.1-43.9 [facility] Comment on above: Performed By: #### M 100.2200, L7000.1800 #### [facility] [address] [place], [address] WBC (Bld) [#/Vol] 8.8 10*3/uL Normal 4.4-11.0 [facility] Comment on above: Performed By: #### M 100.2200, L7000.1800 #### [facility] [address] [place], [address] CRPon 01-06-2025 C-REACTIVE PROT 5.97 mg/L High 0.0-3.0 [facility] Comment on above: Performed By: #### M 100.2200, L7000.1800 #### [facility] [address] [place], [address] Carbon dioxide, total [Moles /volume] in Central venous bloodOrdered By: Domo Friend on 01-06-2025 CO2 [Moles/Vol] 21.3 mmol/L 21.0-32.0 [facility] Chloride assayOrdered By: Ra otto Friend on 01-06-2025 Chloride [Moles/Vol] 104 mmol/L 98-108 [facility] Comprehensive Metabolic Prof ilon 01-06-2025 Albumin [Mass/Vol] 4.2 g/dL Normal 3.5-5.0 [facility] Comment on above: Performed By: #### M 100.2200, L7000.1800 #### [facility] [address] [place], [address] Albumin/Globulin [Mass ratio] 1.4 {ratio} Normal 0.9-2.4 [facility] Comment on above: Performed By: #### M 100.2200, L7000.1800 #### [facility] [address] [place], [address] ALK PHOS 57 U/L Normal 35-104 [facility] Comment on above: Performed By: #### M 100.2200, L7000.1800 #### [facility] [address] [place], [address] ALT [Catalytic activity/Vol] 15 U/L Normal <=34 [facility] Comment on above: Performed By: #### M 100.2200, L7000.1800 #### [facility] [address] [place], [address] AST [Catalytic activity/Vol] 18 U/L Normal <=31 [facility] Comment on above: Performed By: #### M 100.2200, L7000.1800 #### [facility] [address] [place], [address] Bilirubin [Mass/Vol] 0.32 mg/dL Normal 0.00-1.30 [facility] Comment on above: Performed By: #### M 100.2200, L7000.1800 #### [facility] [address] [place], [address] BUN/CRE 15.8 RATIO Normal 10-20 [facility] Comment on above: Performed By: #### M 100.2200, L7000.1800 #### [facility] [address] [place], [address] Calcium [Mass/Vol] 9.2 mg/dL Normal 7.6-11.0 [facility] Comment on above: Performed By: #### M 100.2200, L7000.1800 #### [facility] [address] [place], [address] Chloride [Moles/Vol] 104 mmol/L Normal 98-108 [facility] Comment on above: Performed By: #### M 100.2200, L7000.1800 #### [facility] [address] [place], [address] CO2 [Moles/Vol] 21.3 mmol/L Normal 21.0-32.0 [facility] Comment on above: Performed By: #### M 100.2200, L7000.1800 #### [facility] [address] [place], [address] Creatinine [Mass/Vol] 0.69 mg/dL Low 0.70-1.20 [facility] Comment on above: Performed By: #### M 100.2200, L7000.1800 #### [facility] [address] [place], [address] GAP 13 Normal 5-15 [facility] Comment on above: Performed By: #### M 100.2200, L7000.1800 #### [facility] [address] [place], [address] GFR/1.73 sq M.predicted among non-blacks MDRD (S/P/Bld) [Vol rate/Area] 120 mL/min/{1.73_m2} Normal >60 [facility] Comment on above: Result Comment: mL/m in/1.73m2 CKD-EPI Creatinine Equation (2020) Performed By: #### M 100.2200, L7000.1800 #### [facility] [address] [place], [address] Globulin (S) [Mass/Vol] 3.0 g/dL Normal 2.2-4.2 [facility] Comment on above: Performed By: #### M 100.2200, L7000.1800 #### [facility] [address] [place], [address] Glucose [Mass/Vol] 121 mg/dL High 70-99 [facility] Comment on above: Performed By: #### M 100.2200, L7000.1800 #### [facility] [address] [place], [address] Potassium [Moles/Vol] 3.7 mmol/L Normal 3.3-5.1 [facility] Comment on above: Performed By: #### M 100.2200, L7000.1800 #### [facility] [address] [place], [address] Sodium [Moles/Vol] 138 mmol/L Normal 133-145 [facility] Comment on above: Performed By: #### M 100.2200, L7000.1800 #### [facility] [address] [place], [address] T PROT 7.2 g/dL Normal 5.9-8.4 [facility] Comment on above: Performed By: #### M 100.2200, L7000.1800 #### [facility] [address] [place], [address] Urea nitrogen [Mass/Vol] 11 mg/dL Normal 4-19 [facility] Comment on above: Performed By: #### M 100.2200, L7000.1800 #### [facility] [address] [place], [address] Eosinophil percentageOrdered By: Domo Weaver on 01-06-2025 Eosinophils/100 WBC (Bld) 1.4 % 0-5 [facility] Erythrocyte Sed Rateon 01-06 SED RATE 8 mm/hr Normal 0-30 [facility] Comment on above: Performed By: #### M 100.2200, L7000.1800 #### [facility] [address] [place], [address] Erythrocyte distribution wid th ratioOrdered By: Domo Weaver on 01-06-2025 Erythrocyte distribution width (RBC) [Ratio] 12.3 % 11.6-14.6 [facility] Erythrocyte distribution wid th standard deviationOrdered By: Domo Weaver on 01-06-2025 Erythrocyte distribution width (RBC) [Ratio] 40.6 fl 35.1-43.9 [facility] Erythrocyte sedimentation ra teOrdered By: Domo Weaver on 01-06-2025 ESR (Bld) [Velocity] 8 mm/h 0-30 [facility] Glomerular filtration rate ( GFR) estimation/1.73 sq m using serum, plasma, or whole bOrdered By: Domo Weaver on 01-06-2025 GFR/1.73 sq M.predicted among non-blacks MDRD (S/P/Bld) [Vol rate/Area] 120 mL/min/{1.73_m2} >60 [facility] Comment on above: mL/min/1.73m2 CKD-EP I Creatinine Equation (2020) Hematocrit Auto (Bld) [Volum e fraction]Ordered By: Domo Weaver on 01-06-2025 Hematocrit (Bld) [Volume fraction] 34.3 % Low 37-47 [facility] Hemoglobin measurementOrdere d By: Domo Weaver on 01-06-2025 Hemoglobin (Bld) [Mass/Vol] 11.2 g/dL Low 12.0-15.0 [facility] Immature granulocytes/100 WB C Auto (Bld)Ordered By: Domo Weaver on 01-06-2025 Immature granulocytes/100 WBC (Bld) 0.300 % 0.0-0.9 [facility] Comment on above: IG% - Immature Granu locytes (promyelocytes, myelocytes and metamyelocytes) > 1% indicates that a LEFT SHIFT is Present. Laboratory - Chemistry and C hemistry - challengeOrdered By: Domo Weaver on 01-06-2025 AST [Catalytic activity/Vol] 18 U/L <32 [facility] MCV (mean corpuscular volume ) determinationOrdered By: Domo Weaver on 01-06-2025 MCV (RBC) [Entitic vol] 90.7 fL 81-99 [facility] Mean corpuscular hemoglobin (MCH) determinationOrdered By: Domo Weaver on 01-06-2025 MCH (RBC) [Entitic mass] 29.6 pg 27.0-32.0 [facility] Mean corpuscular hemoglobin concentration (MCHC) determinationOrdered By: Domo Weaver on 01-06-2025 MCHC (RBC) [Mass/Vol] 32.7 g/dL 32-36 [facility] Mean platelet volume determi nationOrdered By: Domo Weaver on 01-06-2025 Platelet mean volume (Bld) [Entitic vol] 10.0 fL 6.2-12.0 [facility] Monocyte percentageOrdered B y: Domo Weaver on 01-06-2025 Monocytes/100 WBC (Bld) 4.7 % 0-10 [facility] Neutrophil percentageOrdered By: Domo Weaver on 01-06-2025 Neutrophils/100 WBC (Bld) 62.7 % 47-70 [facility] Nucleated red blood cell per centageOrdered By: Domo Weaver on 01-06-2025 Nucleated RBC/100 WBC (Bld) [Ratio] 0 % 0-5 [facility] Platelet countOrdered By: Ra clarita Weaver on 01-06-2025 Platelets (Bld) [#/Vol] 358 10*3/uL 150-450 [facility] Potassium measurement (mass/ volume)Ordered By: Domo Weaver on 01-06-2025 Potassium (Unsp spec) [Mass/Vol] 3.7 mmol/L 3.3-5.1 [facility] RBC Auto (Bld) [#/Vol]Ordere d By: Domo Weaver on 01-06-2025 RBC (Bld) [#/Vol] 3.78 10*6/uL Low 4.2-5.4 [facility] Serum creatinine measurement (mass/volume)Ordered By: Domo Weaver on 01-06-2025 Creatinine [Mass/Vol] 0.69 mg/dL Low 0.70-1.20 [facility] Serum globulin measurementOr dered By: Domo Weaver on 01-06-2025 Globulin (S) [Mass/Vol] 3.0 g/dL 2.2-4.2 [facility] Serum glucose measurement (m ass/volume)Ordered By: Domo Weaver on 01-06-2025 Glucose [Mass/Vol] 121 mg/dL High 70-99 [facility] Serum or plasma C reactive p rotein measurement (mass/volume)Ordered By: Domo Weaver on 01-06-2025 CRP [Mass/Vol] 5.97 mg/L High 0.0-3.0 [facility] Serum or plasma alanine parisi otransferase (ALT) measurementOrdered By: Domo Weaver on 01-06-2025 ALT [Catalytic activity/Vol] 15 U/L <35 [facility] Serum or plasma albumin arielle urement (mass/volume)Ordered By: Domo Weaver on 01-06-2025 Albumin [Mass/Vol] 4.2 g/dL 3.5-5.0 [facility] Serum or plasma albumin/glob ulin mass ratioOrdered By: Domo Weaver on 01-06-2025 Albumin/Globulin [Mass ratio] 1.4 {ratio} 0.9-2.4 [facility] Serum or plasma alkaline marcelo sphatase measurementOrdered By: Domo Weaver on 01-06-2025 ALP [Catalytic activity/Vol] 57 U/L 35-104 [facility] Serum or plasma calcium arielle urement (mass/volume)Ordered By: Domo Weaver on 01-06-2025 Calcium [Mass/Vol] 9.2 mg/dL 7.6-11.0 [facility] Serum or plasma urea nitroge n measurement (mass/volume)Ordered By: Domo Weaver on 01-06-2025 Urea nitrogen [Mass/Vol] 11 mg/dL 4-19 [facility] Sodium levelOrdered By: Alisa Michelle on 01-06-2025 Sodium [Moles/Vol] 138 mmol/L 133-145 [facility] Total proteinOrdered By: Lai Weaver on 01-06-2025 Protein [Mass/Vol] 7.2 g/dL 5.9-8.4 [facility] White blood cell (WBC) count Ordered By: Domo Weaver on 01-06-2025 WBC (Bld) [#/Vol] 8.8 10*3/uL 4.4-11.0 [facility] Choriogonadotropin.beta subu niton 01-05-2025 HCG.beta subunit Qn 422 m[IU]/mL High <5 [facility] Comment on above: Order Comment: REF V [...] #### 2 243-4 #### MARIA E STEFFI ([id number]) [facility] [address] [place] [address] Gastroenterology Visit Repor ton 01-01-2025 Gastroenterology Visit Report [facility] [address] [place] [address] OFFICE VISIT Date of Service: 01/01/25 MR#: [id number] Acct: [id number] Name: MARIXA AMOS Rep #: [id number] : 1995 Provider: Domo Weaver DO Age/Sex: 29/F Location: [facility] Status: Signed Intake Vital Signs 12/09/23 13:23 [...] 01/01/25 History mcg (2,500 unit) capsule omega 4-xrq-hxa-fish oil 300 1 cap PO QDAY 07/12/24 [...] story progesterone oil IM 01/01/25 01/01/25 History [facility] Medical History (Updated 07/12/24 @ 10:30 by Jesika Farrar NP, [facility]) Endometriosis Low iron Anemia Latent tuberculosis Ulcerative [...] not start azathioprine for one month. OV 7.. possible change of therapy to Stelara. Start hyoscyamine. ? Colonoscopy 05.25. cancelled related to . OV 12..23 reports loose stools two weeks prior with mucous and blood tinge. Reports recent miscarriage, will possibly require surgical intervention, her OB asked her to skip her Stelara dose; they are not actively trying for children at this time. OV 5.9.24 pt reports that she is feeling well [...] Stelara Q8W. ? ESR/CRP Calp/Lact? TB? serum/ab .29.21 22/<2.9 --/--? --? 23.7/neg? CBC (anemic), CMP, LDH, IBD 03.24.22 --/--? 61/? +? --/--? Titers 07.07.22 13/<2.9 --/--? --? --/--? apANCA H1:160, CMV IgG+ CBC (anemic), CMP, LDH, CHARLES comp, celiac, SABRINA, GAME? (more content not included)... Normal [facility] No Panel Informationon 04-29 -2025 Gavino Tristan MD 12/26/2024 11:43 AM Embryo [...] Preop diagnosis: Infertility Post op diagnosis: Same Scallop Binder: Dr. Holder Depth: 7 cm Curve: anterior [...] Gavino Tristan 12/26/24 11:35 AM [facility] Work Phone: Progesteroneon 12-26-2024 Progesterone [Mass/Vol] 34.6 ng/mL [facility] Comment on above: Order Comment: REF V ALUES FOLLICULAR PHASE 20-144 MID CYCLE 64-357 LUTEAL PHASE 56-214 POSTMENOPAUSE < 32 PREPUBERTY < 20 FEMALE 10-18Y 8-110 MALE 10-18Y < 20 ADULT MALE < 40 Performed By: #### 2 243-4 #### MARIA E STEFFI ([id number]) [facility] ([facility] [address] [place] [address] LIPID PANEL, STANDARDon 11-29 Cholesterol [Mass/Vol] 228 mg/dL High <200 [facility] Comment on above: Order Comment: FASTI NG:YES FASTING: YES Performed By: #### 1 1776, 7600 #### [facility] [address], [address] [place] [address] Senior Policy Advisor: Cody Spencer MD Cholesterol in HDL [Mass/Vol] 68 mg/dL Normal > OR = 50 [facility] Comment on above: Order Comment: FASTI NG:YES FASTING: YES Performed By: #### 1 88, 7600 #### [facility] [address], [address] [place] [address] Senior Policy Advisor: Cody Spencer MD Cholesterol in LDL [Mass/Vol] [...] Luis Miguel GALLARDO et al. DESIRE. 2013;310(19): 3224-1435 (http://education.TabbedOut/faq/WTZ219) Performed By: #### 1 7770, 7600 #### [facility] [address], [address] [place] [address] Senior Policy Advisor: Cody Spencer MD Cholesterol.total/Chol esterol in HDL [Mass ratio] 3.4 {ratio} Normal <5.0 [facility] Comment on above: Order Comment: FASTI NG:YES FASTING: YES Performed By: #### 1 7338, 7600 #### [facility] [address], [address] [place] [address] Senior Policy Advisor: Cody Spencer MD NON HDL CHOLESTEROL 160 mg/dL (calc) High <130 [facility] Comment on above: Order Comment: FASTI NG:YES FASTING: YES Result Comment: For patients with diabetes plus 1 major ASCVD risk factor, treating to a non-HDL-C goal of <100 mg/dL (LDL-C of <70 mg/dL) is considered a therapeutic option. Performed By: #### 1 7306, 7600 #### [facility] [address], [address] [place] [address] Senior Policy Advisor: Cody Spencer MD Triglyceride [Mass/Vol] 190 mg/dL High <150 [facility] Comment on above: Order Comment: FASTI NG:YES FASTING: YES Performed By: #### 1 7306, 7600 #### [facility] [address], [address] [place] [address] Senior Policy Advisor: Cody Spencer MD VITAMIN D,25-OH,TOTAL,IAon 0 12-21-2024 [...] D, (D2,D3), LC/MS/MS is recommended: order code 13054 (patients >2yrs). See Note 1 Note 1 For additional information, please refer to http://education.[employer]/faq/HWV211 (This link is being provided for informational/ educational purposes only.) Performed By: #### 1 4220, 5440 #### [facility] [address], [address] [place] [address] Senior Policy Advisor: Cody Spencer MD Destr of lesionon 12-20-2024 Complexity: simple Destruction method: cryotherapy Informed consent: discussed and consent obtained Debridement: hyperkeratotic portion removed with sharp debridement Lesion destroyed using liquid nitrogen: Yes Cryotherapy cycles: 3 Outcome: patient tolerated procedure well with no complications Post-procedure details: wound care instructions given [facility] [facility] Work Phone: [facility] Work Phone: Progesteroneon 12-20-2024 Progesterone [Mass/Vol] 0.2 ng/mL Normal [facility] Comment on above: Order Comment: REF V ALUES FOLLICULAR PHASE 20-144 MID CYCLE 64-357 LUTEAL PHASE 56-214 POSTMENOPAUSE < 32 PREPUBERTY < 20 FEMALE 10-18Y 8-110 MALE 10-18Y < 20 ADULT MALE < 40 Performed By: #### 2 243-4 #### MARIA E KAPADIA ([id number]) [facility] ([facility]) [address] [place] [address] Estradiolon 12-15-2024 E2 [Mass/Vol] 417 pg/mL Normal [facility] Comment on above: Order Comment: REF V ALUES FOLLICULAR PHASE 20-144 MID CYCLE 64-357 LUTEAL PHASE 56-214 POSTMENOPAUSE < 32 PREPUBERTY < 20 FEMALE 10-18Y 8-110 MALE 10-18Y < 20 ADULT MALE < 40 Performed By: #### 2 243-4 #### MARIA E KAPADIA ([id number]) [facility] ([facility]) [address] [place] [address] Progesteroneon 12-15-2024 Progesterone [Mass/Vol] 0.6 ng/mL Normal [facility] Comment on above: Order Comment: REF V ALUES FOLLICULAR PHASE 20-144 MID CYCLE 64-357 LUTEAL PHASE 56-214 POSTMENOPAUSE < 32 PREPUBERTY < 20 FEMALE 10-18Y 8-110 MALE 10-18Y < 20 ADULT MALE < 40 Performed By: #### 2 243-4 #### MARIA E KAPADIA ([id number]) [facility] ([facility]) [address] [place] [address] [facility] US ENDOMETRIAL LINING CH ECKon 12-15-2024 TERRENCE US ENDOMETRIAL LINING CHECK Trilaminar appearance to the endometrium is noted. Normal [facility] ANTI-MULLERIAN HORMONE ([facility]) , FEMALEon 11-25-2024 ANTI-MULLERIAN HORMONE ([facility]), FEMALE 1.90 ng/mL Normal 0.69-13.39 [facility] Comment on above: Performed By: #### 1 1363, 45075, 14992, 8472, 78885, 498 #### [facility] [address], [address] [place] [address] Senior Policy Advisor: Cody Spencer MD #### [id number] #### [facility]/[address] [place], [place] Senior Policy Advisor: Jeremiah Holder M.D.,PhD #### [phone] #### [facility], [address] [phone] Senior Policy Advisor: Bianka Brenner MD,PhD,HAMLET CHLAMYDIA/N. GONORRHOEAE RNA , TMA, UROGENITALon 11-25-2024 CHLAMYDIA TRACHOMATIS RNA, TMA, UROGENITAL Not detected Normal NOT DETECTED [facility] Comment on above: Performed By: #### 1 1363, 63893, 03407, 8472, 90631, 498 #### [facility] [address], [address] [place] [address] Senior Policy Advisor: Cody Spencer MD #### [phone] #### [facility]/[address] [place], [place] Senior Policy Advisor: Jeremiah Holder M.D.,PhD #### [phone] #### [facility], [address] [facility] [place] Senior Policy Advisor: Bianka Brenner MD,PhD,HAMLET COMMENT Normal [facility] Comment on above: Result Comment: The analytical performance characteristics of this assay, when used to test SurePath(TM) specimens have been determined by [employer]. The modifications have not been cleared or approved by the FDA. This assay has been validated pursuant to the CLIA regulations and is used for clinical purposes. For additional information, please refer to https://education.[employer]/faq/WBI310 (This link is being provided for information/ educational purposes only.) Performed By: #### 1 1363, 71370, 71788, 8472, 24577, 498 #### [facility] [address], [address] [place] [address] Senior Policy Advisor: Cody Spencer MD #### [phone] #### [facility] [address] [place] Senior Policy Advisor: Jeremiah Holder M.D.,PhD #### [phone] #### [facility], [address] [place] [address] Senior Policy Advisor: Bianka Brenner MD,PhD,HAMLET NEISSERIA GONORRHOEAE RNA, TMA, UROGENITAL Not detected Normal NOT DETECTED [facility] Comment on above: Performed By: #### 1 1363, 62916, 14371, 8472, 44506, 498 #### [facility] [address], [address] [place] [address] Senior Policy Advisor: Cody Spencer MD #### [phone] #### [facility] [address] [place] Senior Policy Advisor: Jeremiah Holder M.D.,PhD #### [phone] #### [facility], [address] [place], [place] Senior Policy Advisor: Bianka Brenner MD,PhD,HAMLET HEMOGLOBIN A1c WITH eAGon eAG (mmol/L) 6.0 mmol/L Normal [facility] Comment on above: Performed By: #### 1 1363, 97362, 96987, 8472, 15650, 498 #### [facility] [address], [address] [place] [address] Senior Policy Advisor: Cody Spencer MD #### [id number] #### [facility]/[place] [id number] [facility] [address] [place] Senior Policy Advisor: Jeremiah Holder M.D.,PhD #### [phone] #### [facility], [address] [place] [address] Senior Policy Advisor: Bianka Brenner MD,PhD,HAMLET HEMOGLOBIN A1c 5.4 % [...] diagnosis of diabetes in children. According to [place] Diabetes Association (ADA) guidelines, hemoglobin A1c <7.0% represents optimal control in non- diabetic patients. Different metrics may apply to specific patient populations. Standards of Medical Care in Diabetes(ADA). Performed By: #### 1 1363, 92132, 40884, 8472, 38420, 498 #### [facility] [address], [address] [place] [address] Senior Policy Advisor: Cody Spencer MD #### [phone] #### [facility] [address] [place], [place] Senior Policy Advisor: Jeremiah Holder M.D.,PhD #### [phone] #### [facility], [address] [place] [address] Senior Policy Advisor: Bianka Brenner MD,PhD,HAMLET Magnesium [Mass/Vol] 108 mg/dL Normal [facility] Comment on above: Performed By: #### 1 1363, 35162, 12558, 8472, 16543, 498 #### [facility] [address], [address] [place] [address] Senior Policy Advisor: Cody Spencer MD #### [phone] #### [facility] [address] [facility] [place], [place] Senior Policy Advisor: Jeremiah Holder M.D.,PhD #### [id number] #### [facility], [address] [place] [address] Senior Policy Advisor: Bianka Brenner MD,PhD,HAMLET HEPATITIS B SURFACE ANTIGEN W/REFL CONFIRMon 11-25-2024 HEPATITIS B SURFACE ANTIGEN Non-Reactive Normal NON-REACTIVE [facility] Comment on above: Result Comment: For additional information, please refer to http://Scooters.[employer]/faq/PHB281 (This link is being provided for informational/ educational purposes only.) Performed By: #### 1 1363, 18441, 62238, 8472, 69101, 498 #### [facility] [address], [address] [place], [place] [phone] Senior Policy Advisor: Cody Spencer MD #### [id number] #### [facility]/[place] [address] [facility] [place], [place] Senior Policy Advisor: Jeremiah Holder M.D.,PhD #### [phone] #### [facility], [address] [place] [address] Senior Policy Advisor: Bianka Brenner MD,PhD,HAMLET HEPATITIS C AB W/REFL TO HCV RNA, QN, PCRon 11-25-2024 HEPATITIS C ANTIBODY Non-Reactive Normal NON-REACTIVE [facility] Comment on above: Result Comment: HCV antibody was non-reactive. There is no laboratory evidence of HCV infection. In most cases, no further action is required. However, if recent HCV exposure is suspected, a test for HCV RNA (test code 15618) is suggested. For additional information please refer to http://Scooters.[employer]/faq/YQG56z7 (This link is being provided for informational/ educational purposes only.) Performed By: #### 1 1363, 70439, 81549, 8472, 46903, 498 #### [facility] [address], [address] [place], [place] [phone] Senior Policy Advisor: Cody Spencer MD #### [phone] #### [facility] [address] [facility] [place] Senior Policy Advisor: Jeremiah Holder M.D.,PhD #### [phone] #### [facility], [address] [facility] [place] Senior Policy Advisor: Bianka Brenner MD,PhD,HAMLET HIV 1/2 ANTIGEN/ANTIBODY,FOU RTH [...] purpose. For additional information please refer to http://education.[employer]/faq/QWO385 (This link is being provided for informational/ educational purposes only.) The performance of this assay has not been clinically validated in patients less than 2 years old. Performed By: #### 1 1363, 67234, 46537, 8472, 73697, 498 #### [facility] [place] [address] [facility], [address] [place] [address] Senior Policy Advisor: Cody Spencer MD #### [phone] #### [facility] [address] [facility] [address] [place] Senior Policy Advisor: Jeremiah Holder M.D.,PhD #### [phone] #### [facility], [address] [place] [address] Senior Policy Advisor: Bianka Brenner MD,PhD,HAMLET SYPHILIS ANTIBODY CASCADING REFLEXon [...] is high. Performed By: #### 1 1363, 42319, 27740, 8472, 03995, 498 #### [facility] [address], [address] [place], [place] [phone] Senior Policy Advisor: Cody Spencer MD #### [phone] #### [facility]/[address] [place] Senior Policy Advisor: Jeremiah Holder M.D.,PhD #### [phone] #### [facility] [address] [address] Senior Policy Advisor: Bianka Brenner MD,PhD,HAMLET TSH W/REFLEX TO FT4on 2024 TSH W/REFLEX TO FT4 0.97 mIU/L Normal [facility] Comment on above: Result Comment: Refe rence Range > or = 20 Years 0.40-4.50 Ranges First trimester 0.26-2.66 Second trimester 0.55-2.73 Third trimester 0.43-2.91 Performed By: #### 1 1363, 30565, 19813, 8472, 53264, 498 #### [facility] [address], [address] [place] [address] Senior Policy Advisor: Cody Spencer MD #### [id number] #### [facility]/[place] [id number] [facility] [address] [place] Senior Policy Advisor: Jeremiah Holder M.D.,PhD #### [phone] #### [facility], [address] [place] [address] Senior Policy Advisor: Bianka Brenner MD,PhD,HAMLET No Panel Informationon 11-22 Henrietta Herndon MD 11/22/2024 10:18 AM Egg Retrieval Date/Time: 11/22/2024 10:15 AM Performed by: Henrietta Herndon MD Authorized by: Katelyn Benitez [facility] Consent: Consent obtained: Verbal and written [...] diagnosis: Female infertility Post op diagnosis: Same Scallop Binder: Leslie IV Fluids: 700 cc EBL: 5 cc UOP: Not recorded Specimen: Oocytes Complications: None Number of Oocytes right ovary: 14 Ovarian acc ss (right): Easy Number of Oocytes left ovary: 9 Ovarian access (left): Easy Endometrial thickness: TL Needle type: Single Additional notes: I was present and supervised the entire procedure. Henrietta Herndon 11/22/24 10:16 AM [facility] RIS [facility] Work Phone: Blood type and Indirect anti body screen panel (Bld)on 11-21-2024 ABO group Nom (Bld) B Normal [facility] Comment on above: Performed By: #### 3 4532-2 ####MARIA E KAPADIA ([id number])[facility] ([facility])[address] [place] [address] Blood group antibody screen Ql Negative Normal [facility] Comment on above: Performed By: #### 3 4532-2 ####MARIA E KAPADIA ([id number])[facility] ([facility])[address] [place] [address] US D Ag Ql (Bld) Positive [facility] Comment on above: Performed By: #### 3 4532-2 ####MARIA E KAPADIA ([id number])[facility] ([facility])[address] [place] [address] Lutropinon 11-21-2024 Lutropin Qn 29.1 IU/L [facility] Comment on above: Result Comment: LH R eference Values Follicular Phase 1.5-10.0 Mid-Cycle 13.0-72.0 Luteal Phase 0.5-13.0 Menopause 15.0-65.0 Pre-puberty 0- 3.0 Children 0- 6.0 Adult Male 1.0- 9.0 Luteinizing Hormone is performed using the [employer] Access Immunoassay. LH testing is performed using a different test methodology at [facility] than other legacy [facility]. Direct result comparison should only be made within the same method. Performed By: #### 2 243-4 #### MARIA E KAPADIA ([id number]) [facility] ([facility]) [address] [place] [address] Progesteroneon 11-21-2024 Progesterone [Mass/Vol] 5.4 ng/mL [facility] Comment on above: Order Comment: REF V ALUES FOLLICULAR PHASE 20-144 MID CYCLE 64-357 LUTEAL PHASE 56-214 POSTMENOPAUSE < 32 PREPUBERTY < 20 FEMALE 10-18Y 8-110 MALE 10-18Y < 20 ADULT MALE < 40 Performed By: #### 2 243-4 #### MARIA E KAPADIA ([id number]) [facility] ([facility]) [address] [place] [address] Estradiolon 11-20-2024 E2 [Mass/Vol] 5336 pg/mL [facility] Comment on above: Order Comment: REF V ALUES FOLLICULAR PHASE 20-144 MID CYCLE 64-357 LUTEAL PHASE 56-214 POSTMENOPAUSE < 32 PREPUBERTY < 20 FEMALE 10-18Y 8-110 MALE 10-18Y < 20 ADULT MALE < 40 Performed By: #### 2 243-4 #### MARIA E KAPADIA ([id number]) [facility] ([facility]) [address] [place] [address] Follicle Diameter USon 11-20 Follicle scan perfor med with follicle measurements in report. Trilaminar appearance to the endometrium is noted. Free fluid is noted in the cul de sac. RIS SECTRA ONLY [facility] Work Phone: Radiology Study observation (narrative) [facility] Work Phone: Progesteroneon 11-20-2024 Progesterone [Mass/Vol] 1.8 ng/mL Normal [facility] Comment on above: Order Comment: REF V ALUES FOLLICULAR PHASE 20-144 MID CYCLE 64-357 LUTEAL PHASE 56-214 POSTMENOPAUSE < 32 PREPUBERTY < 20 FEMALE 10-18Y 8-110 MALE 10-18Y < 20 ADULT MALE < 40 Performed By: #### 2 243-4 #### MARIA E KAPADIA ([id number]) [facility] ([facility]) [address] [place] [address] TERRENCE US PELVIS LIMITED FOLLIC LES-FOLLICLE STUDIES PERFORMEDon 11-20-2024 TERRENCE US PELVIS LIMITED FOLLICLES-FOLLICLE STUDIES PERFORMED Follicle scan performed with follicle measurements in report. Trilaminar appearance to the endometrium is noted. Free fluid is noted in the cul de sac. Normal [facility] Estradiolon 11-18-2024 E2 [Mass/Vol] 2969 pg/mL Normal [facility] Comment on above: Order Comment: REF V ALUES FOLLICULAR PHASE 20-144 MID CYCLE 64-357 LUTEAL PHASE 56-214 POSTMENOPAUSE < 32 PREPUBERTY < 20 FEMALE 10-18Y 8-110 MALE 10-18Y < 20 ADULT MALE < 40 Performed By: #### 2 243-4 #### MARIA E KAPADIA ([id number]) [facility] ([facility]) [address] [place] [address] Follicle Diameter USon 11-18 Follicle scan perfor med with follicle measurements in report. RIS SECTRA ONLY [facility] Work Phone: Radiology Study observation (narrative) [facility] Work Phone: Progesteroneon 11-18-2024 Progesterone [Mass/Vol] 0.9 ng/mL Normal [facility] Comment on above: Order Comment: REF V ALUES FOLLICULAR PHASE 20-144 MID CYCLE 64-357 LUTEAL PHASE 56-214 POSTMENOPAUSE < 32 PREPUBERTY < 20 FEMALE 10-18Y 8-110 MALE 10-18Y < 20 ADULT MALE < 40 Performed By: #### 2 243-4 #### MARIA E KAPADIA ([id number]) [facility] ([facility]) [address] [place] [address] TERRENCE US PELVIS LIMITED FOLLIC LES-FOLLICLE STUDIES PERFORMEDon 11-18-2024 TERRENCE US PELVIS LIMITED FOLLICLES-FOLLICLE STUDIES PERFORMED Follicle scan performed with follicle measurements in report. Normal [facility] Estradiolon 11-16-2024 E2 [Mass/Vol] 1058 pg/mL Normal [facility] Comment on above: Order Comment: REF V ALUES FOLLICULAR PHASE 20-144 MID CYCLE 64-357 LUTEAL PHASE 56-214 POSTMENOPAUSE < 32 PREPUBERTY < 20 FEMALE 10-18Y 8-110 MALE 10-18Y < 20 ADULT MALE < 40 Performed By: #### 2 243-4 #### MARIA E KAPADIA ([id number]) [facility] ([facility]) [address] [id number] Follicle Diameter USon 11-16 Follicle scan perfor med with follicle measurements in report. Trilaminar appearance to the endometrium is noted. RIS SECTRA ONLY [facility] Work Phone: Radiology Study observation (narrative) [facility] Work Phone: TERRENCE US PELVIS LIMITED FOLLIC LES-FOLLICLE STUDIES PERFORMEDon 11-16-2024 TERRENCE US PELVIS LIMITED FOLLICLES-FOLLICLE STUDIES PERFORMED Follicle scan performed with follicle measurements in report. Trilaminar appearance to the endometrium is noted. Normal [facility] Estradiolon 11-14-2024 E2 [Mass/Vol] 488 pg/mL Normal [facility] Comment on above: Order Comment: REF V ALUES FOLLICULAR PHASE 20-144 MID CYCLE 64-357 LUTEAL PHASE 56-214 POSTMENOPAUSE < 32 PREPUBERTY < 20 FEMALE 10-18Y 8-110 MALE 10-18Y < 20 ADULT MALE < 40 Performed By: #### 2 243-4 #### MARIA E KAPADIA ([id number]) [facility] ([facility]) [address] [place] [address] Follicle Diameter USon 11-14 Follicle scan perfor [facility] with follicle measurements in report. Trilaminar appearance to the endometrium is not noted. Free fluid is noted in the cul de sac. RIS SECTRA ONLY [facility] Work Phone: Radiology Study observation (narrative) [facility] Work Phone: TERRENCE US PELVIS LIMITED FOLLIC LES-FOLLICLE STUDIES PERFORMEDon 11-14-2024 TERRENCE US PELVIS LIMITED FOLLICLES-FOLLICLE STUDIES PERFORMED Follicle scan performed with follicle measurements in report. Trilaminar appearance to the endometrium is not noted. Free fluid is noted in the cul de sac. Normal [facility] CBC panel Auto (Bld)on 11-08 Erythrocyte distribution width (RBC) [Ratio] 12.0 % Normal 11.5-14.5 [facility] Comment on above: Performed By: #### 2 243-4 #### MARIA E KAPADIA ([id number]) [facility] ([facility]) [address] [phone] Hematocrit (Bld) [Volume fraction] 35.3 % Low 36.0-46.0 [facility] Comment on above: Performed By: #### 2 243-4 #### MARIA E KAPADIA ([id number]) [facility] ([facility]) [address] [place] [phone] Hemoglobin (Bld) [Mass/Vol] 11.4 g/dL Low 12.0-16.0 [facility] Comment on above: Performed By: #### 2 243-4 #### MARIA E KAPADIA ([id number]) [facility] ([facility]) [address] [place] [phone] MCH (RBC) [Entitic mass] 29.3 pg Normal 26.0-34.0 [facility] Comment on above: Performed By: #### 2 243-4 #### MARIA E KAPADIA ([id number]) [facility] ([facility]) [address] [place] [address] MCHC (RBC) [Mass/Vol] 32.3 g/dL Normal 32.0-36.0 [facility] Comment on above: Performed By: #### 2 243-4 #### MARIA E KAPADIA ([id number]) [facility] ([facility]) [address] [place] [address] MCV (RBC) [Entitic vol] 91 fL Normal 80-100 [facility] Comment on above: Performed By: #### 2 243-4 #### MARIA E KAPADIA ([id number]) [facility] ([facility]) [address] [phone] Nucleated RBC/100 WBC (Bld) [Ratio] 0.0 /100 WBCs Normal 0.0-0.0 [facility] Comment on above: Performed By: #### 2 243-4 #### MARIA E KAPADIA ([id number]) [facility] ([facility]) [address] [place] [address] Platelets (Bld) [#/Vol] 326 x10*3/uL Normal 150-450 [facility] Comment on above: Performed By: #### 2 243-4 #### MARIA E KAPADIA ([id number]) [facility] ([facility]) [address] [place] [address] RBC (Bld) [#/Vol] 3.89 x10*6/uL Low 4.00-5.20 [facility] Comment on above: Performed By: #### 2 243-4 #### MARIA E KAPADIA ([id number]) [facility] ([facility]) [address] [place] [address] WBC (Bld) [#/Vol] 5.2 x10*3/uL Normal 4.4-11.[address] [facility] Comment on above: Performed By: #### 2 243-4 #### MARIA E KAPADIA ([id number]) [facility] ([facility]) [address] [place] [address] Estradiolon 11-08-2024 E2 [Mass/Vol] 43 pg/mL Normal [facility] Comment on above: Order Comment: REF V ALUES FOLLICULAR PHASE 20-144 MID CYCLE 64-357 LUTEAL PHASE 56-214 POSTMENOPAUSE < 32 PREPUBERTY < 20 FEMALE 10-18Y 8-110 MALE 10-18Y < 20 ADULT MALE < 40 Performed By: #### 2 243-4 #### MARIA E LI ([id number]) [facility] ([facility]) [address] [place] [address] Follicle Diameter USon 11-08 Follicle scan perfor med with follicle measurements in report., Trilaminar appearance to the endometrium is noted., and Free fluid is noted in the cul de sac. RIS SECTRA ONLY Radiology Study observation (narrative) [facility] Work Phone: Follicle Diameter USOrdered By: Henrietta Herndon on 11-08-2024 [facility] Work Phone: TERRENCE US PELVIS LIMITED FOLLIC LES-FOLLICLE STUDIES PERFORMEDon 11-08-2024 TERRENCE US PELVIS LIMITED FOLLICLES-FOLLICLE STUDIES PERFORMED Follicle scan performed with follicle measurements in report., Trilaminar appearance to the endometrium is noted., and Free fluid is noted in the cul de sac. Normal [facility] No Panel Informationon 10-11 Henrietta Herndon MD 10/11/2024 9:48 AM Egg Retrieval Date/Time: 10/11/2024 9:41 AM Performed by: Henrietta Herndon MD Authorized by: Katelyn Benitez APRN-[facility] Consent: Consent obtained: Verbal and written Consent [...] diagnosis: Female infertility Post op diagnosis: Same Scallop Binder: Leslie IV Fluids: 300 cc EBL: 5 cc UOP: Not recorded Specimen: Oocytes Complications: None Number of Oocytes right ovary: 16 Ovarian access (right): Easy Number of Oocytes left ovary: 9 Ovarian access (left): Easy Endometrial thickness: Tl Needle type: Single Additional notes: I was present and supervised the entire procedure. Henrietta Das Khushboo 10/11/24 9:42 AM [facility] Work Phone: Lutropinon 10-10-2024 Lutropin Qn 42.5 IU/L [facility] Comment on above: Result Comment: LH R eference Values Follicular Phase 1.5-10.0 Mid-Cycle 13.0-72.0 Luteal Phase 0.5-13.0 Menopause 15.0-65.0 Pre-puberty 0- 3.0 Children 0- 6.0 Adult Male 1.0- 9.0 Luteinizing Hormone is performed using the [employer] Access Immunoassay. LH testing is performed using a different test methodology at [facility] than other legacy [facility]. Direct result comparison should only be made within the same method. Performed By: #### 2 243-4 #### MARIA E KAPADIA ([id number]) [facility] ([facility]) [address] [place], [place] [address] Progesteroneon 10-10-2024 Progesterone [Mass/Vol] 5.0 ng/mL [facility] Comment on above: Order Comment: REF V ALUES FOLLICULAR PHASE 20-144 MID CYCLE 64-357 LUTEAL PHASE 56-214 POSTMENOPAUSE < 32 PREPUBERTY < 20 FEMALE 10-18Y 8-110 MALE 10-18Y < 20 ADULT MALE < 40 Performed By: #### 2 243-4 #### MARIA E KAPADIA ([id number]) [facility] ([facility]) [address] [place] [address] Estradiolon 10-09-2024 E2 [Mass/Vol] 7372 pg/mL [facility] Comment on above: Order Comment: REF V ALUES FOLLICULAR PHASE 20-144 MID CYCLE 64-357 LUTEAL PHASE 56-214 POSTMENOPAUSE < 32 PREPUBERTY < 20 FEMALE 10-18Y 8-110 MALE 10-18Y < 20 ADULT MALE < 40 Estradiol measurement is performed using the [employer] Access Estradiol Immunoassay. Estradiol testing is performed using a different test methodology at [facility] than other legacy [facility]. Direct result comparison should only be made within the same method. Performed By: #### 2 243-4 #### MARIA E KAPADIA ([id number]) [facility] ([facility]) [address] [place] [address] Progesteroneon 10-09-2024 Progesterone [Mass/Vol] 1.3 ng/mL [facility] Comment on above: Order Comment: REF V ALUES Male <0.2-0.8 Follicular Phase <0.2-1.5 Luteal Phase 7.4-15.4 Post Menopausal <0.2-0.2 1ST Trimester 12.0-84.0 2ND Trimester 10.2-58.8 3RD Trimester 46.5-160 Progesterone is performed using the [employer] Access Immunoassay. Progesterone testing is performed using a different test methodology at [facility] than [facility]. Direct result comparison should only be made within the same method. Performed By: #### 2 839-9 #### MARIA E KAPADIA ([id number]) [facility] ([facility] [address] [phone] [facility] US PELVIS LIMITED FOLLIC LES-FOLLICLE STUDIES PERFORMEDon 10-09-2024 [facility] US PELVIS LIMITED FOLLICLES-FOLLICLE STUDIES PERFORMED Follicle scan performed with follicle measurements in report. Normal [facility] Estradiolon 10-08-2024 E2 [Mass/Vol] 4637 pg/mL [facility] Comment on above: Order Comment: REF V ALUES FOLLICULAR PHASE 20-144 MID CYCLE 64-357 LUTEAL PHASE 56-214 POSTMENOPAUSE < 32 PREPUBERTY < 20 FEMALE 10-18Y 8-110 MALE 10-18Y < 20 ADULT MALE < 40 Estradiol measurement is performed using the [employer] Access Estradiol Immunoassay. Estradiol testing is performed using a different test methodology at [facility] than other [facility]. Direct result comparison should only be made within the same method. Performed By: #### 2 243-4 #### MARIA E KAPADIA ([id number]) [facility] ([facility] [address] [phone] Follicle Diameter USon 10-08 Follicle scan perfor med with follicle measurements in report. RIS SECTRA ONLY Radiology Study observation (narrative) [facility] Work Phone: Follicle Diameter USOrdered By: Gavino Tristan on 10-08-2024 [facility] Work Phone: Progesteroneon 10-08-2024 Progesterone [Mass/Vol] 0.9 ng/mL Normal [facility] Comment on above: Order Comment: REF V ALUES Male <0.2-0.8 Follicular Phase <0.2-1.5 Luteal Phase 7.4-15.4 Post Menopausal <0.2-0.2 1ST Trimester 12.0-84.0 2ND Trimester 10.2-58.8 3RD Trimester 46.5-160 Progesterone is performed using the [employer] Access Immunoassay. Progesterone testing is performed using a different test methodology at [facility] than other [facility]. Direct result comparison should only be made within the same method. Performed By: #### 2 839-9 #### MARIA E KAPADIA ([id number]) [facility] ([facility] [address] [phone] [facility] US PELVIS LIMITED FOLLIC LES-FOLLICLE STUDIES PERFORMEDon 10-08-2024 [facility] US PELVIS LIMITED FOLLICLES-FOLLICLE STUDIES PERFORMED Follicle scan performed with follicle measurements in report. Normal [facility] Estradiolon 10-07-2024 E2 [Mass/Vol] 4276 pg/mL Normal [facility] Comment on above: Order Comment: REF V ALUES FOLLICULAR PHASE 20-144 MID CYCLE 64-357 LUTEAL PHASE 56-214 POSTMENOPAUSE < 32 PREPUBERTY < 20 FEMALE 10-18Y 8-110 MALE 10-18Y < 20 ADULT MALE < 40 Estradiol measurement is performed using the [employer] Access Estradiol Immunoassay. Estradiol testing is performed using a different test methodology at [facility] than other [facility]. Direct result comparison should only be made within the same method. Performed By: #### 2 243-4 #### MARIA E KAPADIA ([id number]) [facility] ([facility] [address] [phone] Follicle Diameter USon 10-07 Follicle scan perfor med with follicle measurements in report. RIS SECTRA ONLY Radiology Study observation (narrative) [facility] Work Phone: Follicle Diameter USOrdered By: Gavino Tristan on 10-07-2024 [facility] Work Phone: Progesteroneon 10-07-2024 Progesterone [Mass/Vol] 0.8 ng/mL Normal [facility] Comment on above: Order Comment: REF V ALUES Male <0.2-0.8 Follicular Phase <0.2-1.5 Luteal Phase 7.4-15.4 Post Menopausal <0.2-0.2 1ST Trimester 12.0-84.0 2ND Trimester 10.2-58.8 3RD Trimester 46.5-160 Progesterone is performed using the [employer] Access Immunoassay. Progesterone testing is performed using a different test methodology at [facility] than other [facility]. Direct result comparison should only be made within the same method. Performed By: #### 2 839-9 #### MARIA E KAPADIA ([id number]) [facility] ([facility] [address] [place] [address] [facility] US PELVIS LIMITED FOLLIC LES-FOLLICLE STUDIES PERFORMEDon 10-07-2024 [facility] US PELVIS LIMITED FOLLICLES-FOLLICLE STUDIES PERFORMED Follicle scan performed with follicle measurements in report. Normal [facility] Estradiolon 10-05-2024 E2 [Mass/Vol] 1290 pg/mL Normal [facility] Comment on above: Order Comment: REF V ALUES FOLLICULAR PHASE 20-144 MID CYCLE 64-357 LUTEAL PHASE 56-214 POSTMENOPAUSE < 32 PREPUBERTY < 20 FEMALE 10-18Y 8-110 MALE 10-18Y < 20 ADULT MALE < 40 Performed By: #### 2 243-4 #### MARIA E KAPADIA ([id number]) [facility] ([facility] [address] [place] [address] Follicle Diameter USon 10-05 Follicle scan perfor med with follicle measurements in report. Trilaminar appearance to the endometrium is noted. RIS SECTRA ONLY [facility] Work Phone: Radiology Study observation (narrative) [facility] Work Phone: [facility] US PELVIS LIMITED FOLLIC LES-FOLLICLE STUDIES PERFORMEDon 10-05-2024 [facility] US PELVIS LIMITED FOLLICLES-FOLLICLE STUDIES PERFORMED Follicle scan performed with follicle measurements in report. Trilaminar appearance to the endometrium is noted. Normal [facility] Estradiolon 10-03-2024 E2 [Mass/Vol] 479 pg/mL Normal [facility] Comment on above: Order Comment: REF V ALUES FOLLICULAR PHASE 20-144 MID CYCLE 64-357 LUTEAL PHASE 56-214 POSTMENOPAUSE < 32 PREPUBERTY < 20 FEMALE 10-18Y 8-110 MALE 10-18Y < 20 ADULT MALE < 40 Performed By: #### 2 243-4 #### MARIA E KAPADIA ([id number]) [facility] ([facility] [address] [place] [address] [facility] US PELVIS LIMITED FOLLIC LES-FOLLICLE STUDIES PERFORMEDon 10-03-2024 [facility] US PELVIS LIMITED FOLLICLES-FOLLICLE STUDIES PERFORMED Follicle scan performed with follicle measurements in report., Trilaminar appearance to the endometrium is noted., and Free fluid is noted in the cul de sac. Normal [facility] CBC panel Auto (Bld)on 09-27 Erythrocyte distribution width (RBC) [Ratio] 12.3 % Normal 11.5-14.5 [facility] Comment on above: Performed By: #### 5 8410-2 #### MARIA E KAPADIA ([id number]) [facility] ([facility] [address] [place] [address] Hematocrit (Bld) [Volume fraction] 34.4 % Low 36.0-46.0 [facility] Comment on above: Performed By: #### 5 8410-2 #### MARIA E KAPADIA ([id number]) [facility] ([facility] [address] [place] [address] Hemoglobin (Bld) [Mass/Vol] 11.4 g/dL Low 12.0-16.0 [facility] Comment on above: Performed By: #### 5 8410-2 #### MARIA E KAPADIA ([id number]) [facility] ([facility] [address] [phone] MCH (RBC) [Entitic mass] 29.7 pg Normal 26.0-34.0 [facility] Comment on above: Performed By: #### 5 8410-2 #### MARIA E KAPADIA ([id number]) [facility] ([facility] [address] [place] [address] MCHC (RBC) [Mass/Vol] 33.1 g/dL Normal 32.0-36.0 [facility] Comment on above: Performed By: #### 5 8410-2 #### MARIA E KAPADIA ([id number]) [facility] ([facility]) [address] [phone] MCV (RBC) [Entitic vol] 90 fL Normal 80-100 [facility] Comment on above: Performed By: #### 5 8410-2 #### MARIA E KAPADIA ([id number]) [facility] ([facility]) [address] [place] [address] Nucleated RBC/100 WBC (Bld) [Ratio] 0.0 /100 WBCs Normal 0.0-0.0 [facility] Comment on above: Performed By: #### 5 8410-2 #### MARIA E KAPADIA ([id number]) [facility] ([facility]) [address] [place] [address] Platelets (Bld) [#/Vol] 334 x10*3/uL Normal 150-450 [facility] Comment on above: Performed By: #### 5 8410-2 #### MARIAE KAPADIA ([id number]) [facility] ([facility]) [address] [place] [address] RBC (Bld) [#/Vol] 3.84 x10*6/uL Low 4.00-5.20 [facility] Comment on above: Performed By: #### 5 8410-2 #### MARIA E KAPADIA ([id number]) [facility] ([facility]) [address] [place] [address] WBC (Bld) [#/Vol] 5.7 x10*3/uL Normal 4.4-11.[address] [facility] Comment on above: Performed By: #### 5 8410-2 #### MARIA E STEFFI ([id number]) [facility] ([facility]) [address] [place] [address] Estradiolon 09-27-2024 E2 [Mass/Vol] pg/mL Normal [facility] Comment on above: Order Comment: REF V ALUES FOLLICULAR PHASE 20-144 MID CYCLE 64-357 LUTEAL PHASE 56-214 POSTMENOPAUSE < 32 PREPUBERTY < 20 FEMALE 10-18Y 8-110 MALE 10-18Y < 20 ADULT MALE < 40 Performed By: #### 2 243-4 #### MARIA E STEFFI ([id number]) [facility] ([facility]) [address] [place] [address] [facility] US PELVIS LIMITED FOLLIC LES-FOLLICLE STUDIES PERFORMEDon 09-27-2024 [facility] US PELVIS LIMITED FOLLICLES-FOLLICLE STUDIES PERFORMED Follicle scan performed with follicle measurements in report. and Trilaminar appearance to the endometrium is not noted. Normal [facility] HCG ( test) Ql (U)O rdered By: Sydney Grier on 08-14-2024 Preg Test, Ur Negative Negative [facility] No Panel InformationOrdered By: Sydney Grier on 08-14-2024 [facility] No Panel Informationon 08-14 Hilary Holder MD 08/14/2024 11:03 AM Hysteroscopy diagnostic Date/Time: 08/14/2024 11:02 AM Performed by: Hilary Holder MD Authorized by: Imelda Pollard MD Consent: Consent obtained: Verbal and written Consent given by: Patient Risks, benefits, and alternatives were discussed: yes Risks discussed: Bleeding, infection and pain [place] protocol: Procedure explained and questions answered to [...] diagnosis: fertility testing Post op diagnosis: Same Scallop Binder: Fellow Anesthesia: None IV: None EBL: 3 [...] well, no immediate complications [facility] Health Care Law Specialist Office Visit Reporton 07-12-2024 Health Care Law Specialist Office Visit Report [facility] [address], [address] [place] [address] OFFICE VISIT Date of Service: 07/12/24 MR#: [id number] Acct: [id number] Name: MARIXA AMOS Rep #: [id number] : 1995 Provider: DERRICK joshua Age/Sex: 29/F [facility] Status: Signed Intake Vital Signs 06/29/24 12:57 07/12/24 08:25 07/12/24 08:32 Height 5 ft 3 in 5 ft 3 in 5 ft 3 in Weight: 182 lb 184 lb 4 oz BMI 32.2 32.6 BP 126/74 H 122/74 H Pulse 70 Intake Visit Reasons: fertility consult Chief Complaint: Fertility consult Director Underwriter Sales Required: No Is patient in pain?: No [...] 07/12/24 History mcg (2,500 unit) capsule omega 5-alm-iva-fish oil 300 1 cap PO QDAY 07/12/24 07/12/24 History mg-1,000 mg capsule (Fish Oil) Is last menstrual period known: Yes Last Menstrual Period: 07/12/24 Post menopausal: No Patient : No : No PFSH Medical History (Updated 07/12/24 @ 10:30 by Jesika Farrar GOLD BLOWER, GOLD BLOWER-C) Endometriosis Low iron Anemia Latent tuberculosis Ulcerative [...] at home: Yes additional social history: -Romel MALONE fertility consult Details: MARIXA AMOS is a 29 year old who presents for infertility discussion. She has already had normal OAR with slighly elevated AMH but aware she has PCOS. Had normal HSG with exp lap in 07/2023 at [place] and told endometriosis. She failed letrozole and IUI at another provider. SA normal. She has appt [place] 08/03 at for infertility discussion. She just [...] (3) Endometriosis: Status: Acute Comment: STAGE 2 Tejinder 07/2023 ROR Plan Discussed that she has had all labs, failed femara and that would be the extent of infertility management at this practice. Will send recent labs to for upcoming appt and also will need for her to send to She plans to continue weight management at this office. 07/12/24 1032 Date Jesika Marte Signature: Date (if applicable) CC: Normal [facility] Health Care Law Specialist Office Visit Reporton 06-29-2024 Health Care Law Specialist Office Visit Report [facility] [address], [address] [place] [address] OFFICE VISIT Date of Service: 06/29/24 MR#: [id number] Acct: [id number] Name: MARIXA AMOS Rep #: [id number] : 1995 Provider: DERRICK Hyman Age/Sex: 28/F Location: [facility] Status: Signed Intake Vital Signs 06/01/24 09:21 06/29/24 12:57 Height 5 ft 3 in 5 ft 3 in Weight: 183 lb 2 oz 182 lb BMI 32.4 32.2 BP 139/76 H 126/74 H Pulse 83 70 Intake Visit Reasons: 4 WK WM Chief Complaint: med check Director Underwriter Sales Required: No Is patient in pain?: No [...] Nutrition plan: Balanced calorie restricted nutritional plan [id number] mario. Krissscottynesspal tracking. (more content not included)... Normal [facility] PROGESTERONE 4317on 06-25-20 PROGESTERONE 0.3 ng/mL Normal . [facility] Comment on above: Order Comment: N day 21 lab Result Comment: Foll icular phase 0.1 - 0.9 Luteal phase 1.8 - 23.9 Ovulation phase 0.1 - 12.0 First trimester 11.0 - 44.3 Second trimester 25.4 - 83.3 Third trimester 58.7 - 214.0 Postmenopausal 0.0 - 0.1 Performed at: [email or web address] [address] [id number] [employer]: Almas Saavedra PhD, Phone: [phone] Performed By: #### L 801.6995 #### [facility] [address] [place], [address] Comprehensive Metabolic Prof ilon 06-24-2024 Albumin [Mass/Vol] 3.9 g/dL Normal 3.2-5.0 [facility] Comment on above: Performed By: #### L 500.4050 #### [facility] [address] [place], [address] Albumin/Globulin [Mass ratio] 1.1 {ratio} Normal 0.9-2.4 [facility] Comment on above: Performed By: #### L 500.4050 #### [facility] [address] [place], [address] ALK P 59 U/L Normal 45-117 [facility] Comment on above: Performed By: #### L 500.4050 #### [facility] [address] [place], [address] ALT [Catalytic activity/Vol] 32 U/L Normal 13-56 [facility] Comment on above: Performed By: #### L 500.4050 #### [facility] [address] [place], [address] AST [Catalytic activity/Vol] 15 U/L Normal 15-37 [facility] Comment on above: Performed By: #### L 500.4050 #### [facility] [address] [place], [address] Bilirubin [Mass/Vol] 0.40 mg/dL Normal 0.20-1.00 [facility] Comment on above: Result Comment: For patients on eltrombopag therapy, use of Dimension [place] TBIL is not recommended. Performed By: #### L 500.4050 #### [facility] [address] [place], [address] BUN/CRE 15.6 RATIO Normal 10-20 [facility] Comment on above: Performed By: #### L 500.4050 #### [facility] [address] [place], [address] CA,Total 9.4 mg/dL Normal 8.5-10.1 [facility] Comment on above: Performed By: #### L 500.4050 #### [facility] [address] [place], [address] Chloride [Moles/Vol] 106 mmol/L Normal 98-107 [facility] Comment on above: Performed By: #### L 500.4050 #### [facility] [address] [place], [address] CO2 [Moles/Vol] 26.0 mmol/L Normal 21.0-32.0 [facility] Comment on above: Performed By: #### L 500.4050 #### [facility] [address] [place], [address] Creatinine [Mass/Vol] 0.71 mg/dL Normal 0.55-1.02 [facility] Comment on above: Result Comment: The validity of the calculated GFR GFRAA in patients over 70 years has not been determined. Clinical correlation is essential. Performed By: #### L 500.4050 #### [facility] [address] [place], [address] EST GFR - AA 125 mL/min Normal >60 [facility] Comment on above: Result Comment: Afri can Brazilian GFR Calc Performed By: #### L 500.4050 #### [facility] [address] [place], [address] GAP 4 Low 5-15 [facility] Comment on above: Performed By: #### L 500.4050 #### [facility] [address] [place], [address] GFR/1.73 sq M.predicted among non-blacks MDRD (S/P/Bld) [Vol rate/Area] 103 mL/min/{1.73_m2} Normal >60 [facility] Comment on above: Result Comment: Non- GFR Calc Performed By: #### L 500.4050 #### [facility] [address] [place], [address] Globulin (S) [Mass/Vol] 3.7 g/dL Normal 2.2-4.2 [facility] Comment on above: Performed By: #### L 500.4050 #### [facility] [address] [place], [address] Glucose [Mass/Vol] 96 mg/dL Normal 74-106 [facility] Comment on above: Performed By: #### L 500.4050 #### [facility] [address] [place], [address] Potassium [Moles/Vol] 4.1 mmol/L Normal 3.5-5.1 [facility] Comment on above: Performed By: #### L 500.4050 #### [facility] [address] [place], [address] Sodium [Moles/Vol] 136 mmol/L Normal 136-145 [facility] Comment on above: Performed By: #### L 500.4050 #### [facility] [address] [place], [address] T PROT 7.6 g/dL Normal 6.4-8.2 [facility] Comment on above: Performed By: #### L 500.4050 #### [facility] [address] [place], [place], [address] Urea nitrogen [Mass/Vol] 11 mg/dL Normal 7-18 [facility] Comment on above: Performed By: #### L 500.4050 #### [facility] [address] [place], [address] Health Care Law Specialist Office Visit Reporton 06-01-2024 Health Care Law Specialist Office Visit Report [facility] [address], [address] [place] [address] OFFICE VISIT Date of Service: 06/01/24 MR#: [id number] Acct: [id number] Name: MARIXA AMOS Rep #: [id number] : 1995 Provider: DERRICK Hyman Age/Sex: 28/F Location[facility] Status: Signed Intake Vital Signs 05/04/24 10:42 06/01/24 09:21 Height 5 ft 3 in 5 ft 3 in Weight: 183 lb 2 oz BMI 32.4 BP 139/76 H Pulse 83 Intake Visit Reasons: 4 w fu Chief Complaint: weight management Director Underwriter Sales Required: No Is patient in pain?: No [...] Q8W #1 mL 08/05/23 06/01/24 Rx syringe (Stelara) budesonide 3 mg 3 mg PO BID #119 ea 12/15/23 06/01/24 Rx capsule,delayed,extended release budesonide 3 mg 3 mg PO DAILY #90 ea 01/06/24 06/01/24 Rx capsule,delayed,extended release Last Menstrual Period: 04/29/24 PFS PFS Medical History Endometriosis Low iron Anemia [...] at t (more content not included)... Normal [facility] 12 Lead EKGon 05-26-2024 [address] [facility] [address] [place] [address] 12 Lead EKG 05/26/24 0850 MR#: [id number] Acct: [id number] Name: MARIXA AMOS Rep #: [id number] : 1995 28 From: Yosi Narayan MD Attending Dr: DERRICK Ray Status: REG CLI Ordering Dr: Renetta Cha Date: 05/26/24 Location: PSN Sex: F C Admitted: Test Reason : WEIGHT MNGT Blood Pressure : / mmHG Vent. Rate : 052 BPM Atrial Rate : 052 BPM P-R Int : 182 ms QRS Dur : 076 ms QT Int : 404 ms P-R-T Axes : 019 047 038 degrees QTc Int : 375 ms Sinus bradycardia with sinus arrhythmia Otherwise normal ECG Confirmed by SUNIL BLANCO, YOSI ([id number]), film or videotape editor LUIS QUIGLEY ([id number]) on 05/26/2024 2:53:52 PM Referred By: Renetta Cha Confirmed By:YOSI NARAYAN MD 05/26/24 1453 Date Yosi Narayan MD CC: GOLD BLOWER-C Renetta Cha; CATRACHITO MERCEDES Signed Normal [facility] CBC W/Diff, Automatedon Absolute Lymph 2.02 X10 3/uL Normal 0.83-4.51 [facility] Comment on above: Performed By: #### L 500.4050 #### [facility] [address] [place], [address] Absolute Neut 3.2 X10 3/uL Normal 2.0-7.7 [facility] Comment on above: Performed By: #### L 500.4050 #### [facility] [address] [place], [address] Basophils/100 WBC (Bld) 0.7 % Normal 0-1 [facility] Comment on above: Performed By: #### L 500.4050 #### [facility] [address] [place], [address] Eosinophils/100 WBC (Bld) 1.6 % Normal 0-5 [facility] Comment on above: Performed By: #### L 500.4050 #### [facility] [address] [place], [address] Erythrocyte distribution width (RBC) [Ratio] 12.3 % Normal 11.6-14.6 [facility] Comment on above: Performed By: #### L 500.4050 #### [facility] [address] [place], [address] Hematocrit (Bld) [Volume fraction] 37.4 % Normal 37-47 [facility] Comment on above: Performed By: #### L 500.4050 #### [facility] [address] [place], [address] Hemoglobin (Bld) [Mass/Vol] 12.2 g/dL Normal 12.0-15.0 [facility] Comment on above: Performed By: #### L 500.4050 #### [facility] [address] [place], [address] IG% 0.200 Normal 0.0-0.9 [facility] Comment on above: Result Comment: IG% - Immature Granulocytes (promyelocytes, myelocytes and metamyelocytes) > 1% indicates that a LEFT SHIFT is Present. Performed By: #### L 500.4050 #### [facility] [address] [place], [address] Lymphocytes/100 WBC (Bld) 34.9 % Normal 19-41 [facility] Comment on above: Performed By: #### L 500.4050 #### [facility] [address] [place], [address] MCH (RBC) [Entitic mass] 29.9 pg Normal 27.0-32.0 [facility] Comment on above: Performed By: #### L 500.4050 #### [facility] [address] [place], [address] MCHC (RBC) [Mass/Vol] 32.6 g/dL Normal 32-36 [facility] Comment on above: Performed By: #### L [id number] #### [facility] [address] [place], [address] MCV (RBC) [Entitic vol] 91.7 fL Normal 81-99 [facility] Comment on above: Performed By: #### L [id number] #### [facility] [address] [place], [address] Monocytes/100 WBC (Bld) 7.1 % Normal 0-10 [facility] Comment on above: Performed By: #### L [id number] #### [facility] [address] [place], [address] Neutrophils/100 WBC (Bld) 55.5 % Normal 47-70 [facility] Comment on above: Performed By: #### L [id number] #### [facility] [address] [place], [address] Nucleated RBC (Bld) [#/Vol] 0 10*3/uL Normal 0-5 [facility] Comment on above: Performed By: #### L [id number] #### [facility] [address] [place], [address] Platelet mean volume (Bld) [Entitic vol] 10.0 fL Normal 6.2-12.0 [facility] Comment on above: Performed By: #### L [id number] #### [facility] [address] [place], [address] Platelets (Bld) [#/Vol] 337 10*3/uL Normal 150-450 [facility] Comment on above: Performed By: #### L [id number] #### [facility] [address] [place], [address] RBC (Bld) [#/Vol] 4.08 10*6/uL Low 4.2-5.4 [facility] Comment on above: Performed By: #### L [id number] #### [facility] [address] [place], [address] RDW SD 41.5 fl Normal 35.1-43.9 [facility] Comment on above: Performed By: #### L [id number] #### [facility] [address] [place], [address] WBC (Bld) [#/Vol] 5.8 10*3/uL Normal 4.4-11.0 [facility] Comment on above: Performed By: #### L [id number] #### [facility] [address] [place], [address] Comprehensive Metabolic Prof ilon 05-04-2024 Albumin [Mass/Vol] 4.3 g/dL Normal 3.2-5.0 [facility] Comment on above: Performed By: #### L [id number] #### [facility] [address] [place], [address] Albumin/Globulin [Mass ratio] 1.1 {ratio} Normal 0.9-2.4 [facility] Comment on above: Performed By: #### L [id number] #### [facility] [address] [place], [address] ALK P 63 U/L Normal 45-117 [facility] Comment on above: Performed By: #### L [id number] #### [facility] [address] [place], [address] ALT [Catalytic activity/Vol] 84 U/L High 13-56 [facility] Comment on above: Performed By: #### L [id number] #### [facility] [address] [place], [address] AST [Catalytic activity/Vol] 38 U/L High 15-37 [facility] Comment on above: Performed By: #### L [id number] #### [facility] [address] [place], [address] Bilirubin [Mass/Vol] 0.30 mg/dL Normal 0.20-1.00 [facility] Comment on above: Result Comment: For patients on eltrombopag therapy, use of Dimension [place] TBIL is not recommended. Performed By: #### L [id number] #### [facility] [address] [place], [address] BUN/CRE 16.6 RATIO Normal 10-20 [facility] Comment on above: Performed By: #### L [id number] #### [facility] [address] [place], [address] CA,Total 9.8 mg/dL Normal 8.5-10.1 [facility] Comment on above: Performed By: #### L [id number] #### [facility] [address] [place], [address] Chloride [Moles/Vol] 103 mmol/L Normal 98-107 [facility] Comment on above: Performed By: #### L [id number] #### [facility] [address] [place], [address] CO2 [Moles/Vol] 25.0 mmol/L Normal 21.0-32.0 [facility] Comment on above: Performed By: #### L [id number] #### [facility] [address] [place], [address] Creatinine [Mass/Vol] 0.66 mg/dL Normal 0.55-1.02 [facility] Comment on above: Result Comment: The validity of the calculated GFR GFRAA in patients over 70 years has not been determined. Clinical correlation is essential. Performed By: #### L [id number] #### [facility] [address] [place], [address] EST GFR - AA 135 mL/min Normal >60 [facility] Comment on above: Result Comment: Afri can Brazilian GFR Calc Performed By: #### L [id number] #### [facility] [address] [place], [address] GAP 7 Normal 5-15 [facility] Comment on above: Performed By: #### L [id number] #### [facility] [address] [place], [address] GFR/1.73 sq M.predicted among non-blacks MDRD (S/P/Bld) [Vol rate/Area] 111 mL/min/{1.73_m2} Normal >60 [facility] Comment on above: Result Comment: Non- GFR Calc Performed By: #### L [id number] #### [facility] [address] [place], [address] Globulin (S) [Mass/Vol] 4.0 g/dL Normal 2.2-4.2 [facility] Comment on above: Performed By: #### L [id number] #### [facility] [address] [place], [address] Glucose [Mass/Vol] 94 mg/dL Normal 74-106 [facility] Comment on above: Performed By: #### L [id number] #### [facility] [address] [place], [address] Potassium [Moles/Vol] 4.1 mmol/L Normal 3.5-5.1 [facility] Comment on above: Performed By: #### L [id number] #### [facility] [address] [place], [address] Sodium [Moles/Vol] 135 mmol/L Low 136-145 [facility] Comment on above: Performed By: #### L [id number] #### [facility] [address] [place], [address] T PROT 8.3 g/dL High 6.4-8.2 [facility] Comment on above: Performed By: #### L [id number] #### [facility] [address] [place], [address] Urea nitrogen [Mass/Vol] 11 mg/dL Normal 7-18 [facility] Comment on above: Performed By: #### L [id number] #### [facility] [address] [place], [address] Hemoglobin A1con 05-04-2024 HbA1c (Bld) [Mass fraction] 5.3 % Normal 3.8-5.6 [facility] Comment on above: Result Comment: Norm al < 5.7 % Prediabetic 5.7 - 6.4 % Diabetic >or= 6.5 % Please note range changes. Performed By: #### L [id number] #### [facility] [address] [place], [place], [address] Health Care Law Specialist Office Visit Reporton 05-04-2024 Health Care Law Specialist Office Visit Report [facility] [address], [address] [place] [address] OFFICE VISIT Date of Service: 05/04/24 MR#: [id number] Acct: [id number] Name: MARIXA AMOS Rep #: [id number] : 1995 Provider: DERRICK Hyman Age/Sex: 28/F [facility] Status: Signed Intake Vital Signs 12/09/23 13:23 [...] and move (more content not included)... Normal [facility] T4 Free Directon 05-04-2024 T4 FREE DIRECT 0.90 ng/dL Normal 0.76-1.46 [facility] Comment on above: Performed By: #### L [id number] #### [facility] [place], [address] Thyroid Stim Hormone (TSH)on 05-04-2024 TSH 1.850 uIU/mL Normal 0.358-3.740 [facility] Comment on above: Performed By: #### L [id number] #### [facility] [address] [place], [place], [address] Vitamin D,25 Hydroxyon 05-04 Vitamin D 25-OH 24.7 ng/mL Normal [facility] Comment on above: Result Comment: Kiarra min D 25(OH) Status Range Deficiency <20 ng/mL (50nmol/L) Insufficiency 20 - 30 ng/mL (50 - 75 nmol/L) Sufficiency 30 - 100 ng/mL (75 - 250 nmol/L) Toxicity >100 ng/mL (>250 nmol/L) Performed By: #### L [id number] #### [facility] [address] [place], [place], [address] Stool lactoferrin detection by immunoassayOrdered By: Domo Weaver on 12-11-2023 Lactoferrin IA Ql (Stl) [facility] Cervical or vagninal specime n microscopic examination by cytology stain (reported asOrdered By: Iesha Lo on 12-09-2023 Cytology report Cyto stain Doc (Cvx/Vag) Comment . [facility] Comment on above: The Pap smear is a s creening test designed to aid in thedetection of premalignant and malignant conditions of theuterine cervix. It is not a diagnostic procedure andshould not be used as the sole means of detecting cervicalcancer. Both false-positive and false-negative reports dooccur. Laboratory - CytologyOrdered By: Iesha Lo on 12-09-2023 Power Systems Engineer Cyto stain Nom (Cvx/Vag) [ID] Comment . [facility] Comment on above: Main [place] totechnologist (ASCP) Laboratory - Miscellaneous t estsOrdered By: Iesha Lo on 12-09-2023 Service comment (Unsp spec) [Interp] . . [facility] No Panel InformationOrdered By: Iesha Lo on 12-09-2023 Human Papillomavirus Screen Comment . [facility] Comment on above: The HPV DNA reflex c jewel were not met with this specimenresult therefore, no HPV testing was performed.Performed at: [facility] Cyto [id number] [place], [place] [id number] Director: Phi Yoder MD, Phone: [phone] at: - [facility] [address] [place] [id number] Director: Rose Haney MD, Phone: [phone] Thin prep Papanicolaou smear with manual screeningOrdered By: Iesha Lo on 12-09-2023 Thin prep Papanicolaou smear with manual screening Comment . [facility] Comment on above: NEGATIVE FOR INTRAEP ITHELIAL LESION OR MALIGNANCY. This liquid based Th inPrep(R) pap test was screened withthe use of an image guided system. PROGon 11-25-2023 Progesterone Level 6.0 ng/mL Normal [facility] ([place]) Comment on above: Result Comment: Adul t Female Progesterone Reference Ranges: Follicular phase <0.21 - 1.40 ng/mL Luteal phase 3.34 - 25.56 ng/mL Mid-Luteal phase 4.44 - 28.03 ng/mL Postmenopausal <0.21 - 0.73 ng/ml Female: First trimester 11.22 - 90.00 ng/ml Second trimester 25.55 - 89.40 ng/ml Third trimester 48.40 - 422.50 ng/ml Performed By: #### P ROMEL #### [place] [address] Absolute lymphocyte countOrd ered By: Domo Weaver on 11-06-2023 Lymphocytes Auto (Unsp spec) [#/Vol] 1.91 10*3/uL 0.83-4.51 [facility] Automated lymphocyte count a s percentage of total leukocytesOrdered By: Domo Weaver on 11-06-2023 Lymphocytes/100 WBC Auto (Unsp spec) 37.4 % 19-41 [facility] Basophil percentageOrdered B y: Domo Weaver on 11-06-2023 Basophils/100 WBC (Bld) 0.8 % 0-1 [facility] Eosinophils/100 WBC (Bld) 2.2 % 0-5 [facility] Hemoglobin (Bld) [Mass/Vol] 11.6 g/dL 12.0-15.0 [facility] Monocytes/100 WBC (Bld) 8.2 % 0-10 [facility] Neutrophils (Bld) [#/Vol] 2.6 10*3/uL 2.0-7.7 [facility] Neutrophils/100 WBC (Bld) 51.2 % 47-70 [facility] WBC (Bld) [#/Vol] 5.1 10*3/uL 4.4-11.0 [facility] Determination of erythrocyte mean corpuscular volume (MCV)Ordered By: Domo Weaver on 11-06-2023 MCV (RBC) [Entitic vol] 91.6 fL 81-99 [facility] Erythrocyte distribution wid th ratioOrdered By: Domoyamileth Weaver on 11-06-2023 Erythrocyte distribution width (RBC) [Ratio] 12.5 % 11.6-14.6 [facility] Erythrocyte distribution wid th standard deviationOrdered By: Domo Weaver on 11-06-2023 Erythrocyte distribution width (RBC) [Entitic vol] 41.9 fL 35.1-43.9 [facility] Hematocrit Auto (Bld) [Volum e fraction]Ordered By: Domo Weaver on 11-06-2023 Hematocrit (Bld) [Volume fraction] 34.8 % 37-47 [facility] Immature granulocytes/100 WB C Auto (Bld)Ordered By: Domo Weaver on 11-06-2023 Immature granulocytes/100 WBC (Bld) 0.200 % 0.0-0.9 [facility] Comment on above: IG% - Immature Granu locytes (promyelocytes, myelocytes and metamyelocytes) > 1% indicates that a LEFT SHIFT is Present. Laboratory - Hematology and Cell countsOrdered By: Domo Weaver on 11-06-2023 MCH (RBC) [Entitic mass] 30.5 pg 27.0-32.0 [facility] MCHC (RBC) [Mass/Vol] 33.3 g/dL 32-36 [facility] Nucleated RBC/100 WBC (Bld) [Ratio] 0 % 0-5 [facility] Platelet mean volume (Bld) [Entitic vol] 10.5 fL 6.2-12.0 [facility] Platelets (Bld) [#/Vol] 291 10*3/uL 150-450 [facility] No Panel InformationOrdered By: Domo Weaver on 11-06-2023 Miscellaneous Test See comment [facility] Comment on above: Scanned image report available in EMR RBC Auto (Bld) [#/Vol]Ordere d By: Domo Weaver on 11-06-2023 RBC (Bld) [#/Vol] 3.80 10*6/uL 4.2-5.4 [facility] Laboratory - Chemistry and C hemistry - challengeOrdered By: Patrice Macias on 10-01-2023 HCG ( test) Ql (U) Negative [facility] Comment on above: Very dilute urine sp ecimens, as indicated by a low specificgravity, may not contain technical service representative levels of hCG. If is still suspected, a first morning urinespecimen should be collected 48 hours later and tested. LABORATORYOrdered By: Shira Juarez on 08-27-2023 HCG ( test) Ql Negative (08/27/23 10:05 AM) Normal AO Manual Urine SS test (u) int Not detected Invalid Interpretation Code AO Manual Urine SS PREGUon 08-27-2023 HCG ( test) Ql (U) Negative Normal [facility] ([place]) Comment on above: Performed By: #### P REGU #### [place] [address] test (u) int Not detected Invalid Interpretation Code [facility] ([place]) Comment on above: Performed By: #### P REGU #### [address] [address] No Panel InformationOrdered By: Domo Weaver on 08-07-2023 Stool Calprotectin 275 ug/g 0-120 [facility] Comment on above: Concentration Interp retation Follow-Up< 5 - 50 ug/g Normal None>50 -120 ug/g Borderline Re-evaluate in 4-6 weeks >120 ug/g Abnormal Repeat as clinically indicatedPerformed at: - [facility] [address] [id number] Director: Jose Claros MD, Phone: [phone] Stool lactoferrin detection by immunoassayOrdered By: Domo Weaver on 08-07-2023 Lactoferrin IA Ql (Stl) [facility] CIRANon 08-03-2023 Dil Dewey Viper Venom 35.1 seconds Normal 30.0-42.0 [facility] ([place]) Comment on above: Performed By: #### 5 [id number], PROL #### [facility] [address] [place] [address] [place] Interpretation See Below Normal [facility] ([place]) Comment on above: Result Comment: No e vidence of lupus anticoagulant. Performed By: #### 5 [id number], PROL #### [facility] [address] [place] [address] Platelet neutraliz. Negative Normal [facility] ([place]) Comment on above: Performed By: #### 5 [id number], PROL #### [facility] [address] [place] [address] Erythrocyte sedimentation ra teOrdered By: Domo Weaver on 08-03-2023 ESR (Bld) [Velocity] 6 mm/h 0-30 [facility] No Panel InformationOrdered By: Domo Weaver on 08-03-2023 Miscellaneous Test See comment [facility] Comment on above: Scanned image report available in EMR Qualitative QuantiFERON-TB g old in tube testOrdered By: Domo Weaver on 08-03-2023 M. tuberculosis tuberculin stim IFN-g Ql (Bld) 0.16 IU/mL . [facility] Serum or plasma C reactive p rotein measurement (mass/volume)Ordered By: Domo Weaver on 08-03-2023 CRP [Mass/Vol] mg/L 0.0-3.0 [facility] Comment on above: C-Reactive Protein ( CRP) provides useful information for thediagnosis, therapy and monitoring of inflammatory processesand associated diseases. For the evaluation of Relative Riskfor Cardiovascular Disease, a High Sensitivity CRP (HSCRP)should be ordered. Thin prep Papanicolaou smear with manual screeningOrdered By: Domo Weaver on 08-03-2023 Thin prep Papanicolaou smear with manual screening Comment . [facility] Comment on above: QuantiFERON-TB Gold Plus [...] smear with manual screening 0.08 IU/mL . [facility] Thin prep Papanicolaou smear with manual screening 0 IU/mL . [facility] Thin prep Papanicolaou smear with manual screening > 10.00 IU/mL . [facility] Thin prep Papanicolaou smear with manual screening Negative Negative [facility] Comment on above: No response to [...] the productionof interferon gamma. Chemiluminescence immunoassaymethodologyPerformed at: [facility] [address] [id number] Director: Almas Saavedra PhD, Phone: [phone] [facility] 08-02-2023 [place] [facility]H 3.40 ng/mL Normal [facility] ([place]) Comment on above: Result Comment: For assays employing antibodies, the possibility exists for interference by heterophile antibodies in the samples.1 1.Tony Marion Interferences in Immunoassays - still a threat. Clin. Chem. 2000; 46: 3451-6221. This test was developed and its performance characteristics determined by [facility]. It has not been cleared or approved by the Food and Drug Administration. Reference Range: Females 26 - 30y: 1.03 - 11.10 Median 4.20 AMH concentrations of >= 1.06 ng/mL is correlated with a better response to ovarian stimulation, produced more retrievable oocytes and higher odds of live according to Quin et al. Fertility and Sterility. 2010: 94:7465-6470. The current AMH test method correlates with [...] exclude an AMH-secreting ovarian tumor. Performed At: [facility] [address] [place] [id number] Felisa Umaña MD Ph:[phone] Performed By: #### 5 [id number], PROL #### [place] [address] PROLon 07-30-2023 Prolactin 16.5 ng/mL Normal 2.0-30.0 [facility] ([place]) Comment on above: Performed By: #### 5 [id number], PROL #### [place] [address] APTTon 07-29-2023 aPTT Coag (Bld) [Time] 33.5 s Normal 25.0-35.0 [facility] ([place]) Comment on above: Result Comment: For Heparin anticoagulation therapy, the recommended therapeutic range is: 54-77 seconds (APTT Correlation with Anti-Xa therapeutic range of 0.3-0.7 units/ml). PLEASE REFERENCE THE PHARMACY PROTOCOL FOR DOSING. Performed By: #### 5 [id number], PROL #### [place] [address] Heparin dose (APTT) None Normal [facility] ([place]) Comment on above: Performed By: #### 5 [id number], PROL #### [address] [address] .Auto Diffon 04-21-2023 Basophil, Absolute 0.0 10 3/mcL Normal 0.0-0.3 [facility] ([place]) Comment on above: Performed By: #### C BC, TSH, CMP, ANEU, ADIFF, LIPID, GFR #### [place] [id number] Basophils/100 WBC (Bld) 0.5 % Normal 0.0-2.5 [facility] ([place]) Comment on above: Performed By: #### C BC, TSH, CMP, ANEU, ADIFF, LIPID, GFR #### [address] [address] Eosinophil, Absolute 0.1 10 3/mcL Normal 0.0-0.7 [facility] ([place]) Comment on above: Performed By: #### C BC, TSH, CMP, ANEU, ADIFF, LIPID, GFR #### [address] [address] Eosinophils/100 WBC (Bld) 1.8 % Normal 0.0-6.0 [facility] ([place]) Comment on above: Performed By: #### C BC, TSH, CMP, ANEU, ADIFF, LIPID, GFR #### [address] [address] Lymphocyte, Absolute 1.8 10 3/mcL Normal 0.9-4.3 [facility] ([place]) Comment on above: Performed By: #### C BC, TSH, CMP, ANEU, ADIFF, LIPID, GFR #### [address] [address] Lymphocytes/100 WBC (Bld) 28.6 % Normal 20.0-40.0 [facility] ([place]) Comment on above: Performed By: #### C BC, TSH, CMP, ANEU, ADIFF, LIPID, GFR #### [address] [address] Monocyte, Absolute 0.5 10 3/mcL Normal 0.1-1.4 [facility] ([place]) Comment on above: Performed By: #### C BC, TSH, CMP, ANEU, ADIFF, LIPID, GFR #### [address] [address] Monocytes/100 WBC (Bld) 7.4 % Normal 2.0-13.0 [facility] ([place] Comment on above: Performed By: #### C BC, TSH, CMP, ANEU, ADIFF, LIPID, GFR #### [address] [address] Neutrophils/100 WBC (Bld) 61.7 % Normal 50.0-75.0 [facility] ([place] Comment on above: Performed By: #### C BC, TSH, CMP, ANEU, ADIFF, LIPID, GFR #### [address] [address] .GFRon 04-21-2023 GFR >60 Normal [facility] ([place]) Comment on above: Result Comment: GFR Population [...] mL/min/1.73 square meters Performed By: #### 5 94643, PROL #### [place] [address] GFR Non- >60 Normal [facility] ([place]) Comment on above: Result Comment: GFR Population [...] mL/min/1.73 square meters Performed By: #### 5 95382, PROL #### [address] [address] .NEUABSon 04-21-2023 Neutrophil, Absolute 3.8 10 3/mcL Normal 2.3-8.1 [facility] ([place] Comment on above: Performed By: #### C BC, TSH, CMP, ANEU, ADIFF, LIPID, GFR #### [address] [address] CBCon 04-21-2023 Erythrocyte distribution width (RBC) [Ratio] 12.5 % Normal 11.5-15.5 [facility] ([place] Comment on above: Performed By: #### C BC, TSH, CMP, ANEU, ADIFF, LIPID, GFR #### [place] [address] Hematocrit (Bld) [Volume fraction] 36.4 % Normal 34.0-46.0 [facility] ([place] Comment on above: Performed By: #### C BC, TSH, CMP, ANEU, ADIFF, LIPID, GFR #### [place] [address] Hgb 12.1 G/dL Normal 12.0-16.0 [facility] ([place] Comment on above: Performed By: #### C BC, TSH, CMP, ANEU, ADIFF, LIPID, GFR #### [place] [address] MCH (RBC) [Entitic mass] 31.0 pg Normal 27.0-33.0 [facility] ([place] Comment on above: Performed By: #### C BC, TSH, CMP, ANEU, ADIFF, LIPID, GFR #### [place] [id number] MCHC 33.4 G/dL Normal 32.0-36.0 [facility] ([place] Comment on above: Performed By: #### C BC, TSH, CMP, ANEU, ADIFF, LIPID, GFR #### [place] [address] MCV (RBC) [Entitic vol] 92.8 fL Normal 80.0-99.0 [facility] ([place] Comment on above: Performed By: #### C BC, TSH, CMP, ANEU, ADIFF, LIPID, GFR #### [place] [address] Platelet 298 10 3/mcL Normal 150-450 [facility] ([place] Comment on above: Performed By: #### C BC, TSH, CMP, ANEU, ADIFF, LIPID, GFR #### [place] [address] Platelet mean volume (Bld) [Entitic vol] 8.8 fL Normal 6.6-10.5 [facility] ([place] Comment on above: Performed By: #### C BC, TSH, CMP, ANEU, ADIFF, LIPID, GFR #### [place] [address] RBC 3.92 10 6/mcL Low 4.10-5.30 [facility] ([place]) Comment on above: Performed By: #### C BC, TSH, CMP, ANEU, ADIFF, LIPID, GFR #### [place] [address] WBC 6.2 10 3/mcL Normal 4.5-10.8 [facility] ([place] Comment on above: Performed By: #### C BC, TSH, CMP, ANEU, ADIFF, LIPID, GFR #### [place] [address] CMPon 04-21-2023 Albumin Level 4.3 G/dL Normal 3.2-4.8 [facility] ([place] Comment on above: Performed By: #### C BC, TSH, CMP, ANEU, ADIFF, LIPID, GFR #### [place] [address] Albumin/Globulin [Mass ratio] 1.3 {ratio} Normal 0.9-1.6 [facility] ([place] Comment on above: Performed By: #### C BC, TSH, CMP, ANEU, ADIFF, LIPID, GFR #### [place] [address] ALP [Catalytic activity/Vol] 55 U/L Normal 38-126 [facility] ([place] Comment on above: Performed By: #### C BC, TSH, CMP, ANEU, ADIFF, LIPID, GFR #### [place] [address] ALT [Catalytic activity/Vol] 54 U/L High 10-49 [facility] ([place] Comment on above: Performed By: #### C BC, TSH, CMP, ANEU, ADIFF, LIPID, GFR #### [address] [address] AST [Catalytic activity/Vol] 33 U/L Normal 8-34 [facility] ([place] Comment on above: Performed By: #### C BC, TSH, CMP, ANEU, ADIFF, LIPID, GFR #### [address] [address] Bili Total 0.40 mg/dL Normal 0.20-1.20 [facility] ([place]) Comment on above: Result Comment: Use of this assay is not recommended for patients undergoing treatment with eltrombopag due to the potential for falsely elevated results. Performed By: #### C BC, TSH, CMP, ANEU, ADIFF, LIPID, GFR #### [address] [address] BUN/Creatinine Ratio 21.4 ratio Normal 10.0-22.0 [facility] ([place] Comment on above: Performed By: #### C BC, TSH, CMP, ANEU, ADIFF, LIPID, GFR #### [address] [address] Calcium [Mass/Vol] 9.3 mg/dL Normal 8.7-10.4 [facility] ([place] Comment on above: Performed By: #### C BC, TSH, CMP, ANEU, ADIFF, LIPID, GFR #### [address] [address] Chloride [Moles/Vol] 105 mmol/L Normal 98-110 [facility] ([place] Comment on above: Performed By: #### C BC, TSH, CMP, ANEU, ADIFF, LIPID, GFR #### [address] [address] CO2 [Moles/Vol] 28 mmol/L Normal 22-32 [facility] ([place] Comment on above: Performed By: #### C BC, TSH, CMP, ANEU, ADIFF, LIPID, GFR #### [address] [address] Creatinine [Mass/Vol] 0.56 mg/dL Normal 0.50-1.20 [facility] ([place] Comment on above: Performed By: #### C BC, TSH, CMP, ANEU, ADIFF, LIPID, GFR #### [address] [address] Electrolyte Balance 6.0 mEq/L Normal 4.0-15.0 [facility] ([place]) Comment on above: Performed By: #### C BC, TSH, CMP, ANEU, ADIFF, LIPID, GFR #### [address] [address] Globulin 3.2 G/dL Normal 1.5-3.8 [facility] ([place] Comment on above: Performed By: #### C BC, TSH, CMP, ANEU, ADIFF, LIPID, GFR #### [place] [id number] Glucose [Mass/Vol] 99 mg/dL Normal 70-110 [facility] ([place] Comment on above: Performed By: #### C BC, TSH, CMP, ANEU, ADIFF, LIPID, GFR #### [address] [address] Potassium [Moles/Vol] 4.6 mmol/L Normal 3.5-5.0 [facility] ([place] Comment on above: Result Comment: Spec imen slightly hemolyzed. Performed By: #### C BC, TSH, CMP, ANEU, ADIFF, LIPID, GFR #### [address] [address] Sodium [Moles/Vol] 139 mmol/L Normal 136-145 [facility] ([place] Comment on above: Performed By: #### C BC, TSH, CMP, ANEU, ADIFF, LIPID, GFR #### [address] [address] Total Protein 7.5 G/dL Normal 5.7-8.2 [facility] ([place] Comment on above: Result Comment: No te - New Reference Range in effect 20 Performed By: #### C BC, TSH, CMP, ANEU, ADIFF, LIPID, GFR #### [address] [address] Urea nitrogen [Mass/Vol] 12.0 mg/dL Normal 8.0-22.0 [facility] ([place] Comment on above: Performed By: #### C BC, TSH, CMP, ANEU, ADIFF, LIPID, GFR #### [address] [address] LIPIDon 04-21-2023 Cholesterol [Mass/Vol] 183 mg/dL Normal 50-199 [facility] ([place] Comment on above: Result Comment: Chol esterol Reference Interval: Less than 200 Desirable 200-239 Borderline high risk 240 and above High risk Performed By: #### 5 37760, PROL #### [place] [address] Cholesterol in HDL [Mass/Vol] 53 mg/dL Normal 40-59 [facility] ([place] Comment on above: Performed By: #### 5 84983, PROL #### [place] [address] Cholesterol in LDL [Mass/Vol] 104 mg/dL Normal 0-129 [facility] ([place] Comment on above: Performed By: #### 5 60713, PROL #### [place] [address] Triglyceride [Mass/Vol] 131 mg/dL Normal 3-149 [facility] ([place] Comment on above: Performed By: #### 5 55862, PROL #### [place] [id number] TSHon 04-21-2023 TSH 0.952 mIU/mL Normal 0.550-4.780 [facility] ([place]) Comment on above: Result Comment: No te - New Reference Range in effect 20 Performed By: #### 5 54102, PROL #### [address] [address] 36on 04-09-2023 36 Name of caller: HEAT HER Relation to patient: patient Contact phone number: [phone] Appointment scheduled with: LANDY BLAIR Appointment date & time: 05/04/23 @ 7:50 AM Reason for visit (are you having any symptoms) : Low blood pressure, unexpected weight gain Transportation issues/ concerns: NO Special accommodations? ( wheel chair, etc) : NO Current medications: STELARA Any refills need: NO Any chronic conditions the provider should be aware of: CHRON'S, 14 WEEKS Normal [facility] 36 In order to comply w ith the No Surprises Act, [facility] is providing you with the following attachments. Any Good Cathy Estimate that may be provided are based on the services you are scheduled to receive. During your visit, there may be additional services required in order for the provider to complete your plan of care. DECLINED Normal [facility] 36on 04-05-2023 36 PATIENT SUBMITTED ON LINE APPOINTMENT REQUEST FOR A PCP APPOINTMENT. SPOKE TO PATIENT AND GOT SOME INFORMATION BUT SHE HAD TO GET OFF THE LINE AND STATES SHE WILL C/B. OK TO SCHEDULE WITH ANY PROVIDER WHEN PATIENT CALLS BACK. FirstName : Marixa LastName : OMI Pronouns : PronounsOther : Email : [email or web address] Phone : [phone] Birthdate : 1995 12:00:00 AM BestTimeToCallBack : Afternoon AppointmentDate : Kirk PhysicianRequested : Symptoms : Weight gain, low blood pressure OptIn : False Normal [facility] Absolute lymphocyte counton 03-05-2022 Lymphocytes Auto (Unsp spec) [#/Vol] 2.37 10*3/uL 0.83-4.51 [facility] Work Phone: Albumin Elph [Mass/Vol]on Albumin [Mass/Vol] 4.1 g/dL 2.9-4.4 [facility] Work Phone: Atypical perinuclear antineu trophil cytoplasmic antibodies measurementon 03-05-2022 Neutrophil cytoplasmic Ab.perinuclear.atypica l IF (S) [Titer] 1:160 titer Neg:<1:20 [facility] Work Phone: Comment on above: The atypical pANCA p attern has been observed in asignificant percentage of patients with ulcerative colitis,primary sclerosing cholangitis and autoimmune hepatitis. Basophil percentageon 2021 Basophil percentage < 0.2 AI 0.0-0.9 [facility] Work Phone: Basophils/100 WBC (Bld) 0.6 % 0-1 [facility] Work Phone: Bilirubin [Mass/Vol] 0.30 mg/dL 0.20-1.00 [facility] Work Phone: Comment on above: For patients on eltr ombopag therapy, use of Dimension [place] TBIL is not recommended. Chloride [Moles/Vol] 105 mmol/L 98-107 [facility] Work Phone: Eosinophils/100 WBC (Bld) 1.4 % 0-5 [facility] Work Phone: Glucose [Mass/Vol] 90 mg/dL 74-106 [facility] Work Phone: Neutrophils (Bld) [#/Vol] 3.5 10*3/uL 2.0-7.7 [facility] Work Phone: Neutrophils/100 WBC (Bld) 53.6 % 47-70 [facility] Work Phone: Potassium [Moles/Vol] 3.8 mmol/L 3.5-5.1 [facility] Work Phone: Protein [Mass/Vol] 7.5 g/dL 6.4-8.2 [facility] Work Phone: Sodium [Moles/Vol] 136 mmol/L 136-145 [facility] Work Phone: WBC (Bld) [#/Vol] 6.4 10*3/uL 4.4-11.0 [facility] Work Phone: Blood erythrocytes count (nu mber/volume)on 03-05-2022 RBC (Bld) [#/Vol] 3.69 10*6/uL 4.2-5.4 [facility] Work Phone: Blood hemoglobin measurement (mass/volume)on 03-05-2022 Hemoglobin (Bld) [Mass/Vol] 11.2 g/dL 12.0-15.0 [facility] Work Phone: Blood lymphocytes/100 leukoc yteson 03-05-2022 Lymphocytes/100 WBC (Bld) 36.9 % 19-41 [facility] Work Phone: Blood monocytes/100 leukocyt eson 03-05-2022 Monocytes/100 WBC (Bld) 7.3 % 0-10 [facility] Work Phone: Blood platelet mean volumeon 03-05-2022 Platelet mean volume (Bld) [Entitic vol] 10.4 fL 6.2-12.0 [facility] Work Phone: Determination of erythrocyte mean corpuscular volume (MCV)on 03-05-2022 MCV (RBC) [Entitic vol] 92.1 fL 81-99 [facility] Work Phone: Erythrocyte sedimentation ra kushal 03-05-2022 ESR (Bld) [Velocity] 13 mm/h 0-30 [facility] Work Phone: Hematocrit Auto (Bld) [Volum e fraction]on 03-05-2022 Hematocrit (Bld) [Volume fraction] 34.0 % 37-47 [facility] Work Phone: Interpretation of serum or p lasma protein pattern by immunofixation (narrative resulton 03-05-2022 Protein Fractions Immunofixation Jesús [Interp] See comment [facility] Work Phone: Comment on above: Result: Not Observed Laboratory - Chemistry and C hemistry - challengeon 03-05-2022 ALP [Catalytic activity/Vol] 48 U/L 45-117 [facility] Work Phone: ALT [Catalytic activity/Vol] 39 U/L 13-56 [facility] Work Phone: CO2 [Moles/Vol] 25.0 mmol/L 21.0-32.0 [facility] Work Phone: Globulin (S) [Mass/Vol] 3.6 g/dL 2.2-4.2 [facility] Work Phone: Urea nitrogen/Creatinine [Mass ratio] 34.1 mg/mg 10-20 [facility] Work Phone: [phone] Laboratory - Hematology and Cell countson 03-05-2022 Erythrocyte distribution width (RBC) [Entitic vol] 41.1 fL 35.1-43.9 [facility] Work Phone: [phone] Erythrocyte distribution width (RBC) [Ratio] 12.0 % 11.6-14.6 [facility] Work Phone: [phone] Immature granulocytes/100 WBC (Bld) 0.200 % 0.0-0.9 [facility] Work Phone: [phone] Comment on above: IG% - Immature Granu locytes (promyelocytes, myelocytes and metamyelocytes) > 1% indicates that a LEFT SHIFT is Present. MCH (RBC) [Entitic mass] 30.4 pg 27.0-32.0 [facility] Work Phone: [phone] Nucleated RBC/100 WBC (Bld) [Ratio] 0 % 0-5 [facility] Work Phone: [phone] MCHC Auto (RBC) [Mass/Vol]on 03-05-2022 MCHC (RBC) [Mass/Vol] 32.9 g/dL 32-36 [facility] Work Phone: [phone] No Panel Informationon 03-05 Addendum Document Comment . [facility] Work Phone: Comment on above: Protein electrophore sis scan will follow via computer,mail, or rn neonatal icu delivery. Centromere B Antibody <0.2 AI 0.0-0.9 [facility] Work Phone: [phone] Endomysial IgA Antibody Negative Negative [facility] Work Phone: [phone] Estimated GFR (MDRD) Amer 167 mL/min >60 [facility] Work Phone: [phone] Comment on above: GFR Calc Estimated GFR (MDRD) Non-Af Amer 138 mL/min >60 [facility] Work Phone: [phone] Comment on above: Non- GFR Calc Immunoglobulin E 42 IU/mL 6-495 [facility] Work Phone: LAST PATTERN GRADER Antibody <0.2 AI 0.0-0.9 [facility] Work Phone: Platelets bldon 03-05-2022 Platelets (Bld) [#/Vol] 258 10*3/uL 150-450 [facility] Work Phone: Serum DNA double strand anti body assay (units/volume)on 03-05-2022 DNA double strand Ab Qn (S) [IU]/mL 0-9 [facility] Work Phone: Comment on above: Negative <5 Equivoca l 5 - 9 Positive >9 Serum Areli-1 antibody assay (u nits/volume)on 03-05-2022 Areli-1 extractable nuclear Ab Qn (S) <0.2 AI 0.0-0.9 [facility] Work Phone: Serum Scl-70 extractable nuc lear antibody assay (units/volume)on 03-05-2022 SCL-70 extractable nuclear Ab Qn (S) <0.2 AI 0.0-0.9 [facility] Work Phone: Serum Ferrell extractable nucl ear antibody detectionon 03-05-2022 Ferrell extractable nuclear Ab Ql (S) <0.2 AI 0.0-0.9 [facility] Work Phone: Serum dqkyv-1-fiklicgi measu rement by electrophoresison 03-05-2022 Alpha 1 globulin Elph [Mass/Vol] 0.2 g/dL 0.0-0.4 [facility] Work Phone: Alpha 1 globulin Elph [Mass/Vol] 0.7 g/dL 0.4-1.0 [facility] Work Phone: [phone] Serum classic neutrophil cyt oplasmic antibody assay (units/volume)on 03-05-2022 Neutrophil cytoplasmic Ab.classic Qn (S) <1:20 titer Neg:<1:20 [facility] Work Phone: Serum globulin measurement ( mass/volume)on 03-05-2022 Globulin (S) [Mass/Vol] 3.1 g/dL 2.2-3.9 [facility] Work Phone: Serum or plasma C reactive p rotein measurement (mass/volume)on 03-05-2022 CRP [Mass/Vol] mg/L 0.0-3.0 [facility] Work Phone: Comment on above: C-Reactive Protein ( CRP) provides useful information for thediagnosis, therapy and monitoring of inflammatory processesand associated diseases. For the evaluation of Relative Riskfor Cardiovascular Disease, a High Sensitivity CRP (HSCRP)should be ordered. Serum or plasma IgA measurem ent (mass/volume)on 03-05-2022 IgA [Mass/Vol] 263 mg/dL 87-352 [facility] Work Phone: [phone] Serum or plasma IgG measurem ent (mass/volume)on 03-05-2022 IgG [Mass/Vol] 1132 mg/dL [phone] [facility] Work Phone: [phone] Serum or plasma IgM measurem ent (mass/volume)on 03-05-2022 IgM [Mass/Vol] 109 mg/dL 26-217 [facility] Work Phone: Serum or plasma albumin arielle urement (mass/volume)on 03-05-2022 Albumin [Mass/Vol] 3.9 g/dL 3.2-5.0 [facility] Work Phone: [phone] Serum or plasma albumin/glob ulin mass ratioon 03-05-2022 Albumin/Globulin [Mass ratio] 1.1 {ratio} 0.9-2.4 [facility] Work Phone: [phone] Serum or plasma beta globuli n measurement by electrophoresis (mass/volume)on 03-05-2022 Beta globulin Elph [Mass/Vol] 1.1 g/dL 0.7-1.3 [facility] Work Phone: [phone] Serum or plasma calcium arielle urement (mass/volume)on 03-05-2022 Calcium [Mass/Vol] 8.8 mg/dL 8.5-10.1 [facility] Work Phone: [phone] Serum or plasma creatinine m easurement (mass/volume)on 03-05-2022 Creatinine [Mass/Vol] 0.56 mg/dL 0.55-1.02 [facility] Work Phone: Comment on above: The validity of the calculated GFR & GFRAA in patients over 70 years has not been determined. Clinical correlation is essential. Serum or plasma cytomegalovi mike (CMV) IgG antibody assay (units/volume)on 03-05-2022 CMV IgG Qn > 10.00 U/mL 0.00-0.59 [facility] Work Phone: Comment on above: Negative <0.60 Equiv ocal 0.60 - 0.69 Positive >0.69 Serum or plasma cytomegalovi mike (CMV) IgM antibody assay (units/volume)on 03-05-2022 CMV IgM Qn < 30.0 AU/mL 0.0-29.9 [facility] Work Phone: Comment on above: Negative <30.0 Equiv ocal 30.0 - 34.9 Positive >34.9A positive result is generally indicative of acuteinfection, reactivation or persistent IgM production.Performed at: - [facility] [address] [id number] Director: Almas Saavedra PhD, Phone: [phone] at: - [facility] [address] [id number] Director: Jose Claros MD, Phone: [phone] Serum or plasma gamma globul in measurement by electrophoresis (mass/volume)on 03-05-2022 Gamma globulin Elph [Mass/Vol] 1.1 g/dL 0.4-1.8 [facility] Work Phone: Serum or plasma immunoelectr ophoresis interpretation (nominal result)on 03-05-2022 Interpretation IEP [Interp] Comment . [facility] Work Phone: Comment on above: No monoclonality det ected. Serum or plasma urea nitroge n measurement (mass/volume)on 03-05-2022 Urea nitrogen [Mass/Vol] 19 mg/dL 7-18 [facility] Work Phone: Serum perinuclear neutrophil cytoplasmic antibody titer by immunofluorescenceon 03-05-2022 Neutrophil cytoplasmic Ab.perinuclear IF (S) [Titer] <1:20 titer Neg:<1:20 [facility] Work Phone: Comment on above: The presence of posi tive fluorescence exhibiting P-ANCA orC-ANCA patterns alone is not specific for the diagnosis ofWegener's Granulomatosis (WG) or microscopic polyangiitis.Decisions about treatment should not be based solely onANCA IFA results. The International ANCA Group Consensusrecommends follow up testing of positive sera with both PA-3 and MPO-ANCA enzyme immunoassays. As many as 5% serumsamples are positive only by EIA. Ref. AM J Clin Lkudmk5570;111:507-513. Serum tissue transglutaminas e IgA antibody assay (units/volume)on 03-05-2022 tTG IgA Qn (S) <2 U/mL 0-3 [facility] Work Phone: Comment on above: Negative 0 - 3 Weak Positive 4 - 10 Positive >10 Tissue Transglutaminase (tTG) has been identified as the endomysial antigen. Studies have demonstr- ated that endomysial IgA antibodies have over 99% specificity for gluten sensitive enteropathy. Thin prep Papanicolaou smear with manual screeningon 03-05-2022 Thin prep Papanicolaou smear with manual screening 24 U/L 15-37 [facility] Work Phone: [phone] Thin prep Papanicolaou smear with manual screening 6 5-15 [facility] Work Phone: [phone] Thin prep Papanicolaou smear with manual screening 150 U/L 84-246 [facility] Work Phone: [phone] Thin prep Papanicolaou smear with manual screening 1.4 0.7-1.7 [facility] Work Phone: [phone] Total protein bloodon 2021 Protein [Mass/Vol] 7.2 g/dL 6.0-8.5 [facility] Work Phone: No Panel Informationon 11-21 Stool Calprotectin 61 ug/g 0-120 [facility] Work Phone: Comment on above: Concentration Interp retation Follow-Up<16 - 50 ug/g Normal None>50 -120 ug/g Borderline Re-evaluate in 4-6 weeks >120 ug/g Abnormal Repeat as clinically indicatedPerformed at: [facility] [employer] [address] [id number] Director: Jose Claros MD, Phone: [phone] HIV 1 and HIV-2 antibody ass ay with HIV-1 p24 antigen detectionon 11-20-2021 HIV 1+2 Ab+HIV1 p24 Ag IA Ql Non-Reactive Nonreactive [facility] Work Phone: No Panel Informationon 11-20 Bordetella pertussis IgG Antibody 1.92 index 0.00-0.94 [facility] Work Phone: Comment on above: Negative <0.95 Equiv ocal 0.95 - 1.04 Positive >1.04Performed at: [facility] [employer] [id number] Director: Almas Saavedra PhD, Phone: [phone] at: [facility] [employer] [id number] Director: Jose Claros MD, Phone: [phone] Hepatitis A IgM Antibody Negative Negative [facility] Work Phone: [phone] Hepatitis B Core IgM Antibody Negative Negative [facility] Work Phone: [phone] Hepatitis C Antibody (EIA) <0.1 s/co ratio 0.0-0.9 [facility] Work Phone: Comment on above: Negative: < 0.8 Inde terminate: 0.8 - 0.9 Positive: > 0.9 The CDC recommends that a positive HCV antibody result be followed up with a HCV Nucleic Acid Amplification test (743781).Effective December 29, 2021 Hepatitis Panel (4) will be made non-orderable. [employer] offers order code [id number] Acute Hepatitis. Rubella IgG Antibody Reactive Nonreactive [facility] Work Phone: [phone] Comment on above: Antibody Results Int erpretation of Immune Status Non Reactive Presumed Non-Immune Equivocal Equivocal Reactive Presumed Immune Qualitative QuantiFERON-TB g old in tube teston 11-20-2021 M. tuberculosis tuberculin stim IFN-g Ql (Bld) 0.72 IU/mL . [facility] Work Phone: Serum Varicella zoster virus IgG antibody assay by immunoassay (units/volume)on 11-20-2021 VZV IgG IA Qn (S) 314 index Immune >165 [facility] Work Phone: Comment on above: Negative <135 Equivo mario 135 - 165 Positive >165A positive result generally indicates exposure to thepathogen or administration of specific immunoglobulins,but it is not indication of active infection or stageof disease. Serum mumps virus IgM antibo dy assay (units/volume)on 11-20-2021 MuV IgM Qn (S) < 0.80 AU 0.00-0.79 [facility] Work Phone: Comment on above: Negative < 0.80 Bord giovani 0.80 - 1.20 Positive > 1.20Note: The presence of IgM specific antibody should beinterpreted in conjunction with the patient's clinicalhistory and exposure risk when an acute infection issuspected. Serum or plasma hepatitis B virus surface antigen detection by immunoassayon 11-20-2021 HBV surface Ag IA Ql Negative Negative [facility] Work Phone: Thin prep Papanicolaou smear with manual screeningon 11-20-2021 Thin prep Papanicolaou smear with manual screening Comment . [facility] Work Phone: Comment on above: The QuantiFERON-TB G old Plus result is determined bysubtracting the Nil value from either TB antigen (Ag) tube.The mitogen tube serves as a control for the test. Thin prep Papanicolaou smear with manual screening 0.44 IU/mL . [facility] Work Phone: Thin prep Papanicolaou smear with manual screening 0.08 IU/mL . [facility] Work Phone: [phone] Thin prep Papanicolaou smear with manual screening > 10.00 IU/mL . [facility] Work Phone: Thin prep Papanicolaou smear with manual screening Positive Negative [facility] Work Phone: Comment on above: The [...] Auto (Unsp spec) [#/Vol] 2.55 10*3/uL 0.83-4.51 [facility] Work Phone: Basophil percentageon 2020 Bilirubin [Mass/Vol] 0.20 mg/dL 0.20-1.00 [facility] Work Phone: Comment on above: For patients on eltr ombopag therapy, use of Dimension [place] TBIL is not recommended. Chloride [Moles/Vol] 106 mmol/L 98-107 [facility] Work Phone: Eosinophils/100 WBC (Bld) 1.7 % 0-5 [facility] Work Phone: Glucose [Mass/Vol] 104 mg/dL 74-106 [facility] Work Phone: Comment on above: Fasting Glucose resu lt from 100 to 125 mg/dL suggests IMPAIRED HOMEOSTASIS per A.D.A. criteria.Please note revised GLUCOSE reference range effective 2017. Neutrophils (Bld) [#/Vol] 2.9 10*3/uL 2.0-7.7 [facility] Work Phone: Potassium [Moles/Vol] 3.8 mmol/L 3.5-5.1 [facility] Work Phone: Protein [Mass/Vol] 7.9 g/dL 6.4-8.2 [facility] Work Phone: [phone] Sodium [Moles/Vol] 136 mmol/L 136-145 [facility] Work Phone: WBC (Bld) [#/Vol] 6.0 10*3/uL 4.4-11.0 [facility] Work Phone: [phone] Blood erythrocytes count (nu mber/volume)on 07-28-2021 RBC (Bld) [#/Vol] 3.79 10*6/uL 4.2-5.4 [facility]: Blood hemoglobin measurement (mass/volume)on 07-28-2021 Hemoglobin (Bld) [Mass/Vol] 11.7 g/dL 12.0-15.0 [facility] Work Phone: [phone] Blood lymphocytes/100 leukoc yteson 07-28-2021 Lymphocytes/100 WBC (Bld) 42.2 % 19-41 [facility] Work Phone: [phone] Blood monocytes/100 leukocyt eson 07-28-2021 Monocytes/100 WBC (Bld) 6.8 % 0-10 [facility] Work Phone: Blood platelet mean volumeon 07-28-2021 Platelet mean volume (Bld) [Entitic vol] 11.0 fL 6.2-12.0 [facility] Work Phone: [phone] Determination of erythrocyte mean corpuscular volume (MCV)on 07-28-2021 MCV (RBC) [Entitic vol] 92.1 fL 81-99 [facility] Work Phone: [phone] Erythrocyte sedimentation ra kushal 07-28-2021 ESR (Bld) [Velocity] 22 mm/h 0-30 [facility] Work Phone: [phone] Hematocrit Auto (Bld) [Volum e fraction]on 07-28-2021 Hematocrit (Bld) [Volume fraction] 34.9 % 37-47 [facility] Work Phone: [phone] Laboratory - Chemistry and C hemistry - challengeon 07-28-2021 ALP [Catalytic activity/Vol] 42 U/L 45-117 [facility] Work Phone: ALT [Catalytic activity/Vol] 76 U/L 13-56 [facility] Work Phone: [phone] CO2 [Moles/Vol] 24.0 mmol/L 21.0-32.0 [facility] Work Phone: [phone] Globulin (S) [Mass/Vol] 4.0 g/dL 2.2-4.2 [facility] Work Phone: [phone] Urea nitrogen/Creatinine [Mass ratio] 22.3 mg/mg 10-20 [facility] Work Phone: [phone] Laboratory - Hematology and Cell countson 07-28-2021 Basophils/100 WBC (Unsp spec) 0.7 % 0-1 [facility] Work Phone: [phone] Erythrocyte distribution width (RBC) [Entitic vol] 41.0 fL 35.1-43.9 [facility] Work Phone: [phone] Erythrocyte distribution width (RBC) [Ratio] 12.0 % 11.6-14.6 [facility] Work Phone: [phone] Immature granulocytes/100 WBC (Bld) 0.200 % 0.0-0.9 [facility] Work Phone: [phone] Comment on above: IG% - Immature Granu locytes (promyelocytes, myelocytes and metamyelocytes) > 1% indicates that a LEFT SHIFT is Present. MCH (RBC) [Entitic mass] 30.9 pg 27.0-32.0 [facility] Work Phone: [phone] Neutrophils/100 WBC (Bld) 48.4 % 47-70 [facility] Work Phone: [phone] Nucleated RBC/100 WBC (Bld) [Ratio] 0 % 0-5 [facility] Work Phone: [phone] MCHC Auto (RBC) [Mass/Vol]on 07-28-2021 MCHC (RBC) [Mass/Vol] 33.5 g/dL 32-36 [facility] Work Phone: [phone] No Panel Informationon 07-28 Estimated GFR (MDRD) Amer 146 mL/min >60 [facility] Work Phone: Comment on above: GFR Calc Estimated GFR (MDRD) Non-Af Amer 121 mL/min >60 [facility] Work Phone: Comment on above: Non- GFR Calc Miscellaneous Test See comment [facility] Work Phone: Comment on above: Scanned image report available in EMR Platelets bldon 07-28-2021 Platelets (Bld) [#/Vol] 262 10*3/uL 150-450 [facility] Work Phone: Serum or plasma C reactive p rotein measurement (mass/volume)on 07-28-2021 CRP [Mass/Vol] mg/L 0.0-3.0 [facility] Work Phone: Comment on above: C-Reactive Protein ( CRP) provides useful information for thediagnosis, therapy and monitoring of inflammatory processesand associated diseases. For the evaluation of Relative Riskfor Cardiovascular Disease, a High Sensitivity CRP (HSCRP)should be ordered. Serum or plasma albumin arielle urement (mass/volume)on 07-28-2021 Albumin [Mass/Vol] 3.9 g/dL 3.2-5.0 [facility] Work Phone: Serum or plasma albumin/glob ulin mass ratioon 07-28-2021 Albumin/Globulin [Mass ratio] 1.0 {ratio} 0.9-2.4 [facility] Work Phone: Serum or plasma calcium arielle urement (mass/volume)on 07-28-2021 Calcium [Mass/Vol] 9.0 mg/dL 8.5-10.1 [facility] Work Phone: Serum or plasma creatinine m easurement (mass/volume)on 07-28-2021 Creatinine [Mass/Vol] 0.63 mg/dL 0.55-1.02 [facility] Work Phone: Comment on above: The validity of the calculated GFR & GFRAA in patients over 70 years has not been determined. Clinical correlation is essential. Serum or plasma urea nitroge n measurement (mass/volume)on 11-29-2021 Urea nitrogen [Mass/Vol] 14 mg/dL 7-18 [facility] Work Phone: Thin prep Papanicolaou smear with manual screeningon 07-28-2021 Thin prep Papanicolaou smear with manual screening 30 U/L 15-37 [facility] Work Phone: Thin prep Papanicolaou smear with manual screening 6 5-15 [facility] Work Phone: Thin prep Papanicolaou smear with manual screening 207 U/L 84-246 [facility] Work Phone: CNOVon 06-30-2019 CNOV Office Visit (WALKWA ) -------- MARIXA GAY ([id number]) 1995 F T Date Time Provider Department 06/30/19 2:30 PM [...] (HUMIRA) 40 mg/0.4 mL sykt 0.4 mL. mv,iron,oxx-GZ-lgrdenv cmb.24 400 mcg tab mv,iron,eem-TU-cwpsjfl supplement comb. no.24 400 mcg tablet Take [...] file Gets together: Not on file Attends mu-ism service: Not on file Active member of [...] [J02.9] Cough [R05] Order(s):RAPID STREP TEST B/O [8417853] Order #: [id number] XR CHEST 2V FRONTAL/LAT [[id number]] Order #: [id number] FUTURE GROUP A STREPTOCOCCUS BY PCR [SQGASPCR] Order #: [id number] benzonatate (TESSALON PERLE) 100 mg capsuleTake 1 capsule by mouth three times daily as needed.Disp: 30 capsuleRfl: 0 Prescriptions as of 06/30/2019 Sig: OMEPRAZOLE 20 MG DELAYED RELE* Take 20 mg by mouth once avis* ADALIMUMAB 40 MG/0.4 ML SUBCU* 0.4 mL. MV,IRON,ZDC-GW-ZCDKEDY SUPPLE* mv,iron,zmw-UV-owachyy supple* BENZONATATE 100 MG CAPSULE Take 1 [...] is in agreement with plan of care. Hernietta Azul PA-C Prescriptions ordered this encounter Disp [...] Status:Closed by HENRIETTA AZUL on 06/30/19 Normal [facility] Group A Strep by PCRon 06-30 GAS Specimen Source Throat Swab Normal [facility] Comment on above: Performed By: #### G ASPCR #### [facility] [address], [place] [address] Group A Strep PCR Negative Normal [facility] Comment on above: Result Comment: This test was developed and its performance characteristics determined by [facility]'s [facility]ord[facility] Path[facility] [place] ([facility]). It has not been cleared or approved by the FDA. [facility] is regulated under CLIA as qualified to perform high complexity testing. This test is used for clinical purposes. It should not be regarded as investigational or for research. Performed By: #### G ASPCR #### [facility] [address] [place], [place] [address] PROGRESSon 06-30-2019 PROGRESS HNO ID: [id number] Author: Alexandra Chau Service: ? Author Type: ? Type: Progress [...] Chau June 30, 2019 3:39 PM Normal [facility] PROGRESS HNO ID: [id number] Author: Henrietta Anderson) HAYDEE Azul Service: ? Author Type: Physician Scallop Binder Type: Progress Notes Filed: 06/30/2019 2:51 PM [...] (HUMIRA) 40 mg/0.4 mL sykt 0.4 mL. mv,iron,psr-NP-rtripbq cmb.24 400 mcg tab mv,iron,lja-CH-wgramjm supplement comb. no.24 400 mcg tablet Take [...] file Gets together: Not on file Attends mu-ism service: Not on file Active member of [...] plan of care. Henrietta Azul PA-C Normal [facility] XR CHEST 2V FRONTAL/LATon XR CHEST [...] spine noted. IMPRESSION: No acute radiographic abnormality. Hotbed Lever Operator: SHANTAB Transcribe Date/Time: Jun 30 2019 3:57P Dictated by : BEATRIS TRAN MD This examination was interpreted and the report reviewed and electronically signed by: BEATRIS TRAN MD on Jun 30 2019 3:57PM EST [id number] Normal [facility] CNOVon 08-04-2018 CNOV Office Visit (INTMWS ) -------- MARIXA GAY ([id number]) 1995 F CHT Date Time Provider Department 08/04/18 4:20 PM OLDER, SHIRLEY (RANDALL) INTMWS During your visit today, we recorded the following information about you: Temperature Pulse Blood pressure Weight 98.2 degrees 64/minute 120/66 71.2 kg Shirley Older, CODE ENFORCEMENT OFFICERAASHISH 08/05/2018 8:35 AM Signed CC bloody stools, history of ulcerative colitis HPI Marixaher Jolene Gay is a 23 year old female who presents with bloody diarrhea and fever. DIARRHEA:41223} occuring 7 to 8 stools/day on average. [...] Prozac [Fluoxetine Hcl]; Zoloft [Sertraline Hcl] MEDICATIONS mv,iron,irv-FJ-kshccaf cmb.24 400 mcg tab mv,iron,tbs-BY-xgjvwxf supplement comb. no.24 400 mcg tablet Take [...] no evidence of dehydration. Patient lives in [place], here visiting family. She had notified her certified medicine aide DR. Xenia Santana of current symptoms, he advised her to be evaluated in primary care. Called and spoke with Dr. Santana. Concerned about possible sepsis or C-diff. Recommended laboratory evaluation with: - CBC + DIFF - COMP METABOLIC PANEL - BLOOD CULTURE DRAW - BLOOD CULTURE DRAW - ENTERIC BACTERIAL PANEL BY PCR - C. DIFFICILE PCR - URINE CULTURE Orders sent to [facility], insurance will only cover their lab [...] occur. 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 DIFFICILE PCR [SQCDPCR] Order #: [id number] URINE CULTURE [SQURCUL] Order #: [id number] FUTURE Prescriptions as of 08/04/2018 Sig: AMOXICILLIN 875 MG TABLET Take 1 tablet by mouth twice * MV,IRON,JOH-HM-DQJOTWU SUPPLE* mv,iron,cnj-PU-yrstgfr supple* ADALIMUMAB 40 MG/0.4 ML SUBCU* 0.4 mL. PREDNISONE 20 MG TABLET Take 20 mg by mouth once avis* Problem List As Of Date 08/04/2018 Noted Resolved Depressive disorder [F32.9] INVALID FOR* Diarrhea [R19.7] INVALID FOR* Iron deficiency anemia [D50.9] INVALID FOR* Left sided colitis (HCC) [K51.50] INVALID FOR* Encounter Status:Closed by SHIRLEY SZYMANSKI CNP on 08/05/18 [facility] PRO[facility]ESS[facility] 08-04-2018 PROGRESS HNO ID: [id number] Author: Shirley Oh) Stephon Service: (none) Author Type: Nurse Practitioner Type: Progress Notes Filed: 08/05/2018 8:35 AM Note Text: CC bloody stools, history of ulcerative colitis FAISAL Gay is a 23 year old female who presents with bloody diarrhea and fever. DIARRHEA:34029} occuring 7 to 8 stools/day on average. [...] Prozac [Fluoxetine Hcl]; Zoloft [Sertraline Hcl] MEDICATIONS mv,iron,xhj-QS-cviykpd cmb.24 400 mcg tab mv,iron,nau-HP-mxeheav supplement comb. no.24 400 mcg tablet Take [...] no evidence of dehydration. Patient lives in [place], here visiting family. She had notified her certified medicine aide DR. Xenia Santana of current symptoms, he advised her to be evaluated in primary care. Called and spoke with Dr. Santana. Concerned about possible sepsis or C-diff. Recommended laboratory evaluation with: - CBC + DIFF - COMP METABOLIC PANEL - BLOOD CULTURE DRAW - BLOOD CULTURE DRAW - ENTERIC BACTERIAL PANEL BY PCR - C. DIFFICILE PCR - URINE CULTURE Orders sent to [facility], insurance will only cover their lab [...] Patient agreeable to treatment plan Shirley Szymanski APRN.LABORATORY TECHNICAL SPECIALIST Normal [facility] CNOVon 07-29-2018 CNOV Office Visit (UCWSTR ) -------- MARIXA GAY ([id number]) 1995 F T Date Time Provider Department 07/29/18 10:45 AM ROLF GRUBER [facility] During your visit today, we recorded the following information about you: Temperature Pulse Respiration Blood pressure 99.2 degrees 96/minute 16/minute 102/70 Weight 73.3 kg Rolf Gruber MD 07/29/2018 11:11 AM Signed Patient presents with: Sinusitis: x 4 days HPI: Feeling sick for 4 days. [place]. Positive symptoms: Sore throat, Sinus pressure, Fever [...] (HUMIRA) 40 mg/0.4 mL sykt 0.4 mL. mv,iron,oiq-UY-kbjjzdh cmb.24 400 mcg tab mv,iron,gjz-AJ-mytizyf supplement comb. no.24 400 mcg tablet Take [...] ADALIMUMAB 40 MG/0.4 ML SUBCU* 0.4 mL. MV,IRON,CYO-XA-AHGTFBG SUPPLE* mv,iron,fuj-FN-dacabwe supple* PREDNISONE 20 MG TABLET Take 20 [...] Status:Closed by ROLF GRUBER MD on 07/29/18 [facility] PRO[facility]ESS[facility] 07-29-2018 PROGRESS HNO ID: [id number] Author: Rolf Gruber Service: (none) Author Type: Physician Type: Progress Notes Filed: 07/29/2018 11:11 AM Note Text: Patient presents with: Sinusitis: x 4 days HPI: Feeling sick for 4 days. [place]iting [place]. Positive symptoms: Sore throat, Sinus pressure, Fever [...] (HUMIRA) 40 mg/0.4 mL sykt 0.4 mL. mv,iron,vll-SP-uxysubk cmb.24 400 mcg tab mv,iron,zil-ER-gyruinm supplement comb. no.24 400 mcg tablet Take [...] persist >5 days. Rolf Gruber MD Normal [facility] Vital Signs Date Time Vital Sign Value Performing Clinician Facility 03-09-2025 11:36-0400 Body height 160.[address] Catrachito Mercedes MD Work Phone: [facility] 03-09-2025 11:36-0400 Body mass index (BMI) [Ratio] 33.8 kg/m2 Dr. Catrachito Mercedes MD Work Phone: [facility] 03-09-2025 11:36-0400 Body weight 86.[address] Catrachito Mercedes MD Work Phone: [facility] 03-09-2025 11:36-0400 Diastolic blood pressure 85 mm[Hg] Dr. Catrachito Mercedes MD Work Phone: [facility] 03-09-2025 11:36-0400 Systolic blood pressure 129 mm[Hg] Dr. Catrachito Mercedes MD Work Phone: [facility] 02-23-2025 11:01-0400 Body height 160.[address] Catrachito Mercedes MD Work Phone: 4(859)851-986302 [place] [address] 02-23-2025 11:00-0400 Body mass index (BMI) [Ratio] 32.9 kg/m2 Dr. Catrachito Mercedes MD Work Phone: 4(820)912-517302 [place] [address] 02-23-2025 11:00-0400 Body weight 84.[address] Catrachito Mercedes MD Work Phone: 6(558)369-349002 [place] [address] 02-23-2025 11:00-0400 Diastolic blood pressure 86 mm[Hg] Dr. Catrachito Mercedes MD Work Phone: 1(817)389-862402 [place] [address] 02-23-2025 11:00-0400 Systolic blood pressure 135 mm[Hg] Dr. Catrachito Mercedes MD Work Phone: 6(688)847-537502 [place] [address] 02-06-2025 08:17-0400 Body height 160.[address] Catrachito Mercedes MD Work Phone: 5(991)575-985702 [place] [address] 02-06-2025 08:17-0400 Body mass index (BMI) [Ratio] 32.8 kg/m2 Dr. Catrachito Mercedes MD Work Phone: 5(029)422-758002 [place] [address] 02-06-2025 08:17-0400 Body weight 84.[address] Catrachito Mercedes MD Work Phone: 9(772)463-894502 [place] [address] 02-06-2025 08:17-0400 Diastolic blood pressure 70 mm[Hg] Dr. Catrachito Mercedes MD Work Phone: 2(865)866-146902 [place] [address] 02-06-2025 08:17-0400 Systolic blood pressure 118 mm[Hg] Dr. Catrachito Mercedes MD Work Phone: 5(091)722-972802 [place] [address] 02-02-2025 15:25-0400 Body height 160.[address] Catrachito Mercedes MD Work Phone: 6(076)860-626002 [place] [address] 02-02-2025 15:25-0400 Body mass index (BMI) [Ratio] 33 kg/m2 Dr. Catrachito Mercedes MD Work Phone: 5(800)600-482270 [place] [address] 02-02-2025 15:25-0400 Body weight 84.[address] Catrachito Mercedes MD Work Phone: 5(053)947-902830 [address] 02-02-2025 15:25-0400 Diastolic blood pressure 86 mm[Hg] Dr. Catrachito Mercedes MD Work Phone: 3(002)465-953630 [address] 02-02-2025 15:25-0400 Systolic blood pressure 143 mm[Hg] Dr. Catrachito Mercedes MD Work Phone: 1(880)963-372330 [address] 01-25-2025 14:45-0400 Body height 160.[address] Catrachito Mercedes MD Work Phone: 5(796)992-548430 [address] 01-25-2025 14:45-0400 Body mass index (BMI) [Ratio] 32.6 kg/m2 Dr. Catrachito Mercedes MD Work Phone: 2(463)967-353630 [address] 01-25-2025 14:45-0400 Body weight 83.[address] Catrachito Mercedes MD Work Phone: 3(937)842-845730 [address] 01-25-2025 14:45-0400 Diastolic blood pressure 62 mm[Hg] Dr. Catrachito Mercedes MD Work Phone: 3(839)637-074070 [place] [address] 01-25-2025 14:45-0400 Systolic blood pressure 128 mm[Hg] Dr. Catrachito Mercedes MD Work Phone: 7(348)598-316970 [place] [address] 01-22-2025 11:18-0400 Respiratory rate 18 /min Amy Cherry RN [facility] [place] [facility] 01-22-2025 11:17-0400 Diastolic blood pressure 76 mm[Hg] Amy Cherry RN [facility] [place] [facility] 01-22-2025 11:17-0400 Heart rate 85 /min Amy Cherry RN [facility] [place] [facility] 01-22-2025 11:17-0400 SaO2% (BldA) [Mass fraction] 100 % Amy Cherry RN [facility] [place] [facility] 01-22-2025 11:17-0400 Systolic blood pressure 145 mm[Hg] Amy Cherry RN [facility] [place] [facility] 01-22-2025 11:16-0400 Body temperature 98.01 [degF] Amy Cherry RN [facility] [place] [facility] 12-11-2024 14:54-0400 Body height 160 cm Denise Ordonez MD Work Phone: [facility] [place] [facility] 12-11-2024 14:54-0400 Body mass index (BMI) [Ratio] 32.6 kg/m2 Denise Ordonez MD Work Phone: [facility] [place] [facility] 12-11-2024 14:54-0400 Body temperature 97.3 [degF] Denise Ordonez MD Work Phone: [facility] [place] [facility] 12-11-2024 14:54-0400 Body weight 83.46 kg Denise Ordonez MD Work Phone: [facility] [place] [facility] 12-11-2024 14:54-0400 Diastolic blood pressure 63 mm[Hg] Denise Ordonez MD Work Phone: [facility] [place] [facility] 12-11-2024 14:54-0400 Heart rate 73 /min Denise Ordonez MD Work Phone: [facility] [place] [facility] 12-11-2024 14:54-0400 SaO2% (BldA) [Mass fraction] 98 % Denise Ordonez MD Work Phone: [facility] [place] [facility] 12-11-2024 14:54-0400 Systolic blood pressure 122 mm[Hg] Denise Ordonez MD Work Phone: [facility] [place] [facility] 11-22-2024 10:52-0400 Diastolic blood pressure 63 mm[Hg] Henrietta Herndon MD Work Phone: [facility] [place] [facility] 11-22-2024 10:52-0400 Heart rate 77 /min Henrietta Herndon MD Work Phone: [facility] [place] [facility] 11-22-2024 10:52-0400 Respiratory rate 16 /min Henrietta Herndon MD Work Phone: [facility] [place] [facility] 11-22-2024 10:52-0400 SaO2% (BldA) [Mass fraction] 100 % Henrietta Herndon MD Work Phone: [facility] [place] [facility] 11-22-2024 10:52-0400 Systolic blood pressure 107 mm[Hg] Henrietta Herndon MD Work Phone: [facility] [place] [facility] 11-22-2024 10:22-0400 Body temperature 99.1 [degF] Henrietta Herndon MD Work Phone: [facility] [place] [facility] 11-22-2024 08:38-0400 Body height 160 cm Henrietta Herndon MD Work Phone: [facility] [place] [facility] 11-22-2024 08:38-0400 Body mass index (BMI) [Ratio] 33.59 kg/m2 Henrietta Herndon MD Work Phone: [facility] [place] [facility] 11-22-2024 08:38-0400 Body weight 86 kg Henrietta Herndon MD Work Phone: [facility] [place] [facility] 10-11-2024 10:33-0500 Diastolic blood pressure 62 mm[Hg] Henrietta Herndon MD Work Phone: [facility] [place] [facility] 10-11-2024 10:33-0500 Heart rate 76 /min Henrietta Herndon MD Work Phone: [facility] [place] [facility] 10-11-2024 10:33-0500 Respiratory rate 16 /min Henrietta Herndon MD Work Phone: [facility] [place] [facility] 10-11-2024 10:33-0500 SaO2% (BldA) [Mass fraction] 99 % Henrietta Herndon MD Work Phone: [facility] [place] [facility] 10-11-2024 10:33-0500 Systolic blood pressure 112 mm[Hg] Henrietta Herndon MD Work Phone: [facility] [place] [facility] 10-11-2024 09:47-0500 Body temperature 97.9 [degF] Henrietta Herndon MD Work Phone: [facility] [place] [facility] 10-11-2024 07:55-0500 Body height 160 cm Henrietta eHrndon MD Work Phone: [facility] [place] [facility] 10-11-2024 07:55-0500 Body mass index (BMI) [Ratio] 32.57 kg/m2 Henrietta Herndon MD Work Phone: [facility] [place] [facility] 10-11-2024 07:55-0500 Body weight 83.4 kg Henrietta Herndon MD Work Phone: [facility] [place] [facility] 08-14-2024 11:03-0500 Diastolic blood pressure 88 mm[Hg] Gavino Tristan MD Work Phone: [facility] [place] [facility] 08-14-2024 11:03-0500 Heart rate 64 /min Gavino Tristan MD Work Phone: [facility] [place] [facility] 08-14-2024 11:03-0500 Respiratory rate 18 /min Gavino Tristan MD Work Phone: [facility] [place] [facility] 08-14-2024 11:03-0500 SaO2% (BldA) [Mass fraction] 99 % Gavino Tristan MD Work Phone: [facility] [place] [facility] 08-14-2024 11:03-0500 Systolic blood pressure 143 mm[Hg] Gavino Tristan MD Work Phone: [facility] [place] [facility] 08-14-2024 10:44-0500 Body temperature 97 [degF] Gavino Tristan MD Work Phone: [facility] [place] [facility] 08-14-2024 10:32-0500 Body height 160 cm Gavino Tristan MD Work Phone: [facility] [place] [facility] 08-14-2024 10:32-0500 Body mass index (BMI) [Ratio] 32.65 kg/m2 Gavino Tristan MD Work Phone: [facility] [place] [facility] 08-14-2024 10:32-0500 Body weight 83.6 kg Gavino Tristan MD Work Phone: [facility] [place] [facility] 07-14-2024 13:31-0500 Body height 160 cm Imelda Pollard MD Work Phone: [facility] [place] [facility] 07-14-2024 13:31-0500 Body mass index (BMI) [Ratio] 32.31 kg/m2 Imelda Pollard MD Work Phone: [facility] [place] [facility] 07-14-2024 13:31-0500 Body weight 82.72 kg Imelda Pollard MD Work Phone: [facility] [place] [facility] 07-14-2024 13:31-0500 Diastolic blood pressure 79 mm[Hg] Imelda Pollard MD Work Phone: [facility] [place] [facility] 07-14-2024 13:31-0500 Heart rate 64 /min Imelda Pollard MD Work Phone: [facility] [place] [facility] 07-14-2024 13:31-0500 Systolic blood pressure 128 mm[Hg] Imelda Pollard MD Work Phone: [facility] [place] [facility] 01-25-2024 11:08-0400 Body height 160 cm Sarah Espino APRN-RANDALL Work Phone: [facility] [place] [facility] 01-25-2024 11:08-0400 Body mass index (BMI) [Ratio] 31.18 kg/m2 Sarah Espino APRN-LABORATORY TECHNICAL SPECIALIST Work Phone: [facility] [place] [facility] 01-25-2024 11:08-0400 Body weight 79.83 kg Sarah Espino APRN-LABORATORY TECHNICAL SPECIALIST Work Phone: [facility] [place] [facility] 12-09-2023 13:23-0400 Body height 160.[address] Domo Weaver Work Phone: [facility] 12-09-2023 13:23-0400 Body mass index (BMI) [Ratio] 32.9 kg/m2 Dr. Domo Weaver Work Phone: [facility] 12-09-2023 13:23-0400 Body weight 84.[address] Domo Weaver Work Phone: [facility] 12-09-2023 13:23-0400 Diastolic blood pressure 87 mm[Hg] Dr. Domo Weaver Work Phone: [facility] 12-09-2023 13:23-0400 Systolic blood pressure 138 mm[Hg] Dr. Domo Weaver Work Phone: [facility] 10-01-2023 13:00-0500 Body temperature 97.2 [degF] No Primary Care Physician [facility] 10-01-2023 13:00-0500 Diastolic blood pressure 54 mm[Hg] No Primary Care Physician [facility] 10-01-2023 13:00-0500 Heart rate 55 /min No Primary Care Physician [facility] 10-01-2023 13:00-0500 Respiratory rate 16 /min No Primary Care Physician [facility] 10-01-2023 13:00-0500 SaO2% (BldA) [Mass fraction] 100 % No Primary Care Physician [facility] 10-01-2023 13:00-0500 Systolic blood pressure 107 mm[Hg] No Primary Care Physician [facility] 10-01-2023 11:19-0500 Body height 160.02 cm No Primary Care Physician [facility] 10-01-2023 11:19-0500 Body mass index (BMI) [Ratio] 31.6 kg/m2 No Primary Care Physician [facility] 10-01-2023 11:19-0500 Body weight 81 kg No Primary Care Physician [facility] 08-27-2023 14:07-0500 Diastolic Blood Pressure Non-Invasive 56 mm[Hg] ERNA TROTTER MD [facility] 08-27-2023 14:07-0500 Systolic Blood Pressure Non-Invasive 102 mm[Hg] ERNA TROTTER MD [facility] 08-27-2023 13:22-0500 Diastolic Blood Pressure Non-Invasive 64 mm[Hg] ERNA TROTTER MD [facility] 08-27-2023 13:22-0500 Heart rate 65 /min ERNA TROTTER MD [facility] 08-27-2023 13:22-0500 Respiratory rate 12 /min ERNA TROTTER MD [facility] 08-27-2023 13:22-0500 Systolic Blood Pressure Non-Invasive 117 mm[Hg] ERNA TROTTER MD [facility] 08-27-2023 13:01-0500 Diastolic Blood Pressure Non-Invasive 99 mm[Hg] ERNA TROTTER MD [facility] 08-27-2023 13:01-0500 Heart rate 61 /min ERNA TROTTER MD [facility] 08-27-2023 13:01-0500 Respiratory rate 15 /min ERNA TROTTER MD [facility] 08-27-2023 13:01-0500 Systolic Blood Pressure Non-Invasive 121 mm[Hg] ERNA TROTTER MD [facility] 08-27-2023 12:55-0500 Heart rate 51 /min ERNA TROTTER MD [facility] 08-27-2023 12:55-0500 Respiratory rate 19 /min ERNA TROTTER MD [facility] 08-27-2023 12:45-0500 Body temperature 97.52 [degF] ERNA TROTTER MD [facility] 08-27-2023 12:35-0500 Respiratory Rate - Anes 32 br/min ERNA TROTTER MD [facility] 08-27-2023 12:30-0500 Respiratory Rate - Anes 10 br/min ERNA TROTTER MD [facility] 08-27-2023 12:25-0500 Respiratory Rate - Anes 10 br/min ERNA TROTTER MD [facility] 08-27-2023 10:13-0500 Body height 160 cm ERNA TROTTER MD [facility] 08-27-2023 10:13-0500 Body temperature 97.52 [degF] ERNA TROTTER MD [facility] 08-27-2023 10:13-0500 Body weight 75 kg ERNA TROTTER MD [facility] 08-27-2023 10:13-0500 Heart rate 63 /min ERNA TROTTER MD [facility] 08-13-2023 07:38-0500 Blood Pressure Location ERNA TROTTER MD [facility] 08-13-2023 07:38-0500 Body height 160 cm ERNA TROTTER MD [facility] 08-13-2023 07:38-0500 Body weight 79.5 kg ERNA TROTTER MD [facility] 08-13-2023 07:38-0500 Body weight 31.05 kg/m2 ERNA TROTTER MD [facility] 08-13-2023 07:38-0500 Diastolic Blood Pressure Non-Invasive 64 mm[Hg] ERNA TROTTER MD [facility] 08-13-2023 07:38-0500 Heart rate 78 /min ERNA TROTTER MD [facility] 08-13-2023 07:38-0500 Respiratory rate 20 /min ERNA TROTTER MD [facility] 08-13-2023 07:38-0500 Systolic Blood Pressure Non-Invasive 110 mm[Hg] ERNA TROTTER MD [facility] 04-10-2022 14:39-0400 Body temperature 97.1 [degF] No Primary Care Physician [facility] Work Phone: 04-10-2022 14:39-0400 Diastolic blood pressure 61 mm[Hg] No Primary Care Physician [facility] Work Phone: 04-10-2022 14:39-0400 Heart rate 54 /min No Primary Care Physician [facility] Work Phone: 04-10-2022 14:39-0400 Respiratory rate 16 /min No Primary Care Physician [facility] Work Phone: 04-10-2022 14:39-0400 SaO2% (BldA) [Mass fraction] 99 % No Primary Care Physician [facility] Work Phone: 04-10-2022 14:39-0400 Systolic blood pressure 115 mm[Hg] No Primary Care Physician [facility] Work Phone: 04-10-2022 12:44-0400 Body height 160.02 cm No Primary Care Physician [facility] Work Phone: 04-10-2022 12:44-0400 Body mass index (BMI) [Ratio] 26.5 kg/m2 No Primary Care Physician [facility] Work Phone: 04-10-2022 12:44-0400 Body weight 68.03 kg No Primary Care Physician [facility] Work Phone: 03-05-2022 15:37-0400 Body height 160.02 cm No Primary Care Physician [facility] Work Phone: 03-05-2022 15:37-0400 Body mass index (BMI) [Ratio] 27.3 kg/m2 No Primary Care Physician [facility] Work Phone: 03-05-2022 15:37-0400 Body weight 69.85 kg No Primary Care Physician [facility] Work Phone: 03-05-2022 15:37-0400 Diastolic blood pressure 70 mm[Hg] No Primary Care Physician [facility] Work Phone: 03-05-2022 15:37-0400 Heart rate 65 /min No Primary Care Physician [facility] Work Phone: 03-05-2022 15:37-0400 SaO2% (BldA) [Mass fraction] 98 % No Primary Care Physician [facility] Work Phone: 03-05-2022 15:37-0400 Systolic blood pressure 123 mm[Hg] No Primary Care Physician [facility] Work Phone: Encounters Encounter Date Encounter Type Care Provider Facility Start: 03-09-2025 End: 03-09-2025 ambulatory Catrachito Mercedes Facility:[facility] Start: 03-09-2025 End: 03-09-[address] Carmen Shearer [facility] Work Phone: Start: 02-23-2025 End: 02-23-[address] Marcia Yen DO [facility] Work Phone: Start: 02-23-2025 End: 02-23-[address] Catrachito Mercedes MD Work Phone: [facility] Start: 02-06-2025 End: 02-06-2025 Patient encounter procedure Iesha Lo CNM -[facility] Work Phone: Start: 02-06-2025 End: 02-06-[address] Catrachito Mercedes MD Work Phone: [facility] Work Phone: Start: 02-06-2025 End: 02-06-2025 ambulatory Catrachito Mercedes Facility:[facility] Start: 02-02-2025 End: 02-02-[address] Catrachito Mercedes MD Work Phone: [facility] Work Phone: Start: 02-02-2025 End: 02-02-2025 Patient encounter procedure Mary Beth Allen STEFANIE [facility] Work Phone: Start: 02-02-2025 End: 02-02-2025 ambulatory Domoclarita Weaver Facility:[facility] Start: 01-26-2025 End: 01-26-[address] Carmen Shearer MD [facility] Work Phone: Start: 01-26-2025 End: 01-26-[address] Catrachito Mercedes MD Work Phone: [facility] Work Phone: Start: 01-25-2025 End: 01-25-2025 Patient encounter procedure Katelynrobles Benitez CODE ENFORCEMENT OFFICER-LABORATORY TECHNICAL SPECIALIST Work Phone: [facility] Comment on above: Encounter to determi ne viability of , single or unspecified fetus (Primary Dx) Start: 01-25-2025 End: 01-25-2025 ambulatory KATELYN Batres ELI [facility] Start: 01-22-2025 End: 01-22-2025 Emergency department patient visit DENISE ORDONEZ [facility] Comment on above: Vaginal discharge (P rimary Dx) Start: 01-18-2025 End: 01-18-2025 ambulatory KATELYN BENITEZ [facility] Start: 01-11-2025 End: 01-11-2025 Patient encounter procedure Sarah Espino CODE ENFORCEMENT OFFICER-LABORATORY TECHNICAL SPECIALIST Work Phone: [facility] Comment on above: Encounter to determi ne viability of , single or unspecified fetus (Primary Dx) Start: 01-11-2025 End: 01-11-2025 ambulatory SARAH ESPINO [facility] Start: 01-09-2025 End: 01-09-2025 ambulatory DENISE ORDONEZ [facility] Start: 01-06-2025 End: 01-06-[address] Catrachito Mercedes MD Work Phone: [facility] Work Phone: Start: 01-06-2025 End: 01-06-2025 Patient encounter procedure Domo Weaver DO -Laboratory Work Phone: Start: 01-05-2025 End: 01-06-2025 ambulatory DENISE ORDONEZ [facility] Start: 01-01-2025 End: 01-01-2025 ambulatory Catrachito Mercedes Facility:[facility] Start: 01-01-2025 End: 01-01-2025 Patient encounter procedure Domo Weaver -[facility] Work Phone: Start: 12-26-2024 End: 12-26-2024 Subsequent hospital visit by physician Gavino Tristan MD Work Phone: [facility] Comment on above: Encounter for assist ed reproductive fertility cycle Start: 12-26-2024 End: 12-26-2024 ambulatory DENISE ORDONEZ [facility] Start: 12-20-2024 End: 12-20-2024 Office outpatient new 30 minutes Anabell Rogel MD Work Phone: [facility] Comment on above: Plantar wart (Primar y Dx); Dermatologic problem Start: 12-20-2024 End: 12-20-2024 ambulatory ANABELL DAVALOS GERRY [facility] Start: 12-20-2024 End: 12-20-2024 ambulatory DENISE ORDONEZ [facility] Start: 12-15-2024 End: 12-15-2024 Professional / ancillary services management [facility] [id number] [facility] Comment on above: Female infertility Start: 12-15-2024 End: 12-15-2024 ambulatory IMELDA POLLARD [facility] Start: 12-11-2024 End: 12-11-2024 Initial preventive medicine new pt age 18-39yrs Denise Ordonez MD Work Phone: [facility] Comment on above: Healthcare maintenan ce (Primary Dx); Hypovitaminosis D; Polycystic ovarian disease; Crohn's disease of colon without complication (Multi) Start: 12-11-2024 End: 12-11-2024 Patient encounter status Denise Ordonez MD Work Phone: [facility] Work Phone: Start: 12-11-2024 End: 12-11-2024 ambulatory DENISE ORDONEZ [facility] Start: 12-11-2024 End: 12-11-2024 Encounter for general adult medical examination without abnormal findings DENISE ORDONEZ [facility] Start: 12-04-2024 End: 12-04-2024 ambulatory IMELDA POLLARD [facility] Start: 11-22-2024 End: 11-22-2024 Subsequent hospital visit by physician Henrietta Herndon MD Work Phone: [facility] Comment on above: Encounter for assist ed reproductive fertility cycle Start: 11-22-2024 End: 11-22-2024 ambulatory HENRIETTA HERNDON [facility] Start: 11-21-2024 End: 11-21-2024 ambulatory DENISE [facility] Start: 11-21-2024 End: 11-21-2024 Encounter for blood typing [facility] Start: 11-20-2024 End: 11-20-2024 Patient encounter status [facility] Jeremiah [facility] Work Phone: Start: 11-20-2024 End: 11-20-2024 Professional / ancillary services management [facility] [id number] [facility] Comment on above: Fertility testing (P rimary Dx); Female infertility; Screening for diabetes mellitus; Encounter for Rh blood typing; Screening for STDs (sexually transmitted diseases); Screening for thyroid disorder Start: 11-20-2024 End: 11-20-2024 ambulatory ALEJANDRA CHÁVEZ [facility] Start: 11-20-2024 End: 11-20-2024 Encounter for blood typing ALEJANDRA [facility] Start: 11-18-2024 End: 11-18-2024 Professional / ancillary services management Mac [id number] [facility] Comment on above: Female infertility Start: 11-18-2024 End: 11-18-2024 ambulatory ALEJANDRA [facility]argent SHO [facility] Start: 11-16-2024 End: 11-16-2024 Professional / ancillary services management Mac [id number] [facility] Comment on above: Female infertility Start: 11-16-2024 End: 11-16-2024 ambulatory ALEJANDRA [facility] Start: 11-14-2024 End: 11-14-2024 Professional / ancillary services management Mac [id number] [facility] Comment on above: Female infertility Start: 11-14-2024 End: 11-14-2024 ambulatory ALEJANDRA [facility] Start: 11-08-2024 End: 11-08-2024 Professional / ancillary services management Mac [id number] [facility] Comment on above: Female infertility Start: 11-08-2024 End: 11-08-2024 ambulatory ALEJANDRA [facility] Start: 10-11-2024 End: 10-11-2024 Subsequent hospital visit by physician Henrietta Herndon MD Work Phone: [facility] Comment on above: Encounter for assist ed reproductive fertility cycle Start: 10-11-2024 End: 10-11-2024 ambulatory HENRIETTA HERNDON [facility] Start: 10-10-2024 End: 10-10-2024 ambulatory IMELDA POLLARD [facility] Start: 10-09-2024 End: 10-09-2024 Professional / ancillary services management Mac [id number] [facility] Comment on above: Female infertility Start: 10-09-2024 End: 10-09-2024 ambulatory ALEJANDRA [facility] Start: 10-08-2024 End: 10-08-2024 Professional / ancillary services management [facility] [id number] [facility]hali[facility] Comment on above: Female infertility Start: 10-08-2024 End: 10-08-2024 ambulatory ALEJANDRA [facility] Start: 10-07-2024 End: 10-07-2024 Professional / ancillary services management Mac [id number] [facility] Comment on above: Female infertility Start: 10-07-2024 End: 10-07-2024 ambulatory ALEJANDRA [facility] Start: 10-05-2024 End: 10-05-2024 Professional / ancillary services management Mac [id number] [facility] Comment on above: Female infertility Start: 10-05-2024 End: 10[facility]05-[facility] Start: 10-03-[facility]24 End: 10-03-2024 ambulatory IMELDA Analilia [facility] Start: 09-29-2024 End: 09-29-2024 ambulatory [facility] Ambulatory Start: 09-27-2024 End: 09-27-2024 Professional / ancillary services management Mac [id number] [facility] Comment on above: Arrived Female infertility Start: 09-27-2024 End: 09-27-2024 ambulatory [facility] Start: 09-19-2024 End: 09-19-2024 ambulatory [facility] Ambulatory Start: 09-15-2024 End: 09-15-2024 ambulatory [facility] Ambulatory Start: 09-15-2024 End: 09-15-2024 Encounter for general adult medical examination without abnormal findings [facility] Ambulatory Start: 08-14-2024 End: 08-14-2024 Subsequent hospital visit by physician Gavino Tristan MD Work Phone: [facility] Comment on above: Endometritis (Primar y Dx); Fertility testing Start: 08-14-2024 End: 08-14-2024 ambulatory GAVINO Orr CHRISTI [facility] Start: 07-24-2024 ambulatory Nastaran Mago Facilit y:[facility] Start: 07-14-2024 End: 07-14-2024 Patient encounter procedure Imelda Pollard MD Work Phone: [facility] Comment on above: Fertility testing (P rimary Dx); Encounter for preprocedural laboratory examination; Female fertility problem [N97.9] Start: 07-14-2024 End: 07-14-2024 Patient encounter status Imelda Pollard MD Work Phone: [facility] Work Phone: Start: 07-14-2024 End: 07-14-2024 ambulatory IMELDA POLLARD [facility] Start: 07-14-2024 End: 07-14-2024 Encounter for preprocedural laboratory examination IMELDA POLLARD [facility] Start: 07-12-2024 End: 07-12-2024 ambulatory Nastaran Mago Facility:[facility] Start: 06-29-2024 End: 06-29-2024 ambulatory Nastaran Mago Facility:[facility] Start: 06-24-2024 End: 06-24-2024 ambulatory Nastaran Mago Facility:[facility] Start: 06-01-2024 End: 06-01-2024 ambulatory Renetta Cha Facility:[facility] Start: 05-26-2024 End: 05-26-2024 ambulatory [facility] Facility:[facility] Start: 05-04-2024 End: 05-04-20[facility] Start: 05-04-2024 End: 05-04-2024 ambulatory Renetta [facility] Facility:[facility] Start: 03-18-2024 ambulatory [facility] Facility:[facility] Start: 01-25-2024 End: 01-25-2024 Telemedicine consultation with patient Sarah Espino CODE ENFORCEMENT OFFICER-LABORATORY TECHNICAL SPECIALIST Work Phone: [facility] Comment on above: Female infertility ( Primary Dx); Endometriosis Start: 12-11-2023 End: 12-11-[address] Domo Weaver Work Phone: [facility] Work Phone: Start: 12-11-2023 End: 12-11-[address] Domo Weaver Work Phone: [facility]-Laboratory, Specimen Work Phone: Start: 12-09-2023 End: 12-09-[address] Domo Weaver Work Phone: [facility] Work Phone: Start: 12-09-2023 End: 12-09-[address] Domo Weaver Work Phone: [facility]-Laboratory, Specimen Work Phone: Start: 12-09-2023 End: 12-09-[address] Domo Weaver Work Phone: [facility] Work Phone: Start: 11-25-2023 End: 11-26-2023 ambulatory CATRACHITO MERCEDES MD Facility:A Start: 11-06-2023 End: 11-06-2023 ambulatory No Primary Care Physician [facility] Work Phone: Start: 11-06-2023 End: 11-06-2023 Patient encounter procedure No Primary Care Physician [facility]-Laboratory Work Phone: Start: 10-01-2023 Non-patient / Non-visit No Primary Care Physician [facility] Start: 10-01-2023 End: 10-01-2023 Admission to same day surgery center No Primary Care Physician [facility]-Endoscopy Work Phone: Start: 10-01-2023 End: 10-01-2023 ambulatory No Primary Care Physician [facility] Work Phone: Start: 08-27-2023 End: 08-27-2023 ambulatory ERNA TROTTER MD Facility:[facility] Start: 08-27-2023 End: 08-27-2023 SAME DAY STAY ERNA TROTTER MD [facility] Start: 08-13-2023 End: 08-14-2023 ambulatory ERNA TROTTER MD Facility:[facility] Start: 08-13-2023 End: 08-13-2023 Admission to establishment ERNA TROTTER MD [facility] Start: 08-07-2023 End: 08-07-2023 ambulatory No Primary Care Physician [facility] Work Phone: Start: 08-07-2023 End: 08-07-2023 Patient encounter procedure No Primary Care Physician [facility]-Laboratory, Specimen Work Phone: Start: 08-03-2023 End: 08-03-2023 ambulatory No Primary Care Physician [facility] Work Phone: Start: 08-03-2023 End: 08-03-2023 Patient encounter procedure No Primary Care Physician [facility] Gastroenterology Work Phone: Start: 07-29-2023 End: 07-30-2023 ambulatory ERNA TROTTER MD Facility:[facility] Start: 04-20-2023 End: 04-25-2023 ambulatory CATRACHITO MERCEDES MD Facility:[facility] Start: 04-09-2023 Telephone encounter Landy blankenship CODE ENFORCEMENT OFFICER - LABORATORY TECHNICAL SPECIALIST Work Phone: [facility] Comment on above: NO SURPRISE ACT New Patient Start: 04-05-2023 Telephone encounter Galina diaz MD Work Phone: [facility] Comment on above: Appointment Request Start: 04-10-2022 End: 04-10-2022 Patient encounter procedure No Primary Care Physician [facility]-Medical Out Start: 03-05-2022 End: 03-05-2022 Patient encounter procedure No Primary Care Physician [facility]Laboratory Start: 03-05-2022 End: 03-05-2022 Patient encounter procedure No Primary Care Physician [facility]enter[facility] Start: 11-26-2021 End: 11-26-2021 Patient encounter procedure No Primary Care Physician [facility]-Radiology, [place] Start: 11-21-2021 End: 11-21-2021 Patient encounter procedure No Primary Care Physician [facility]-Laboratory, Specimen Start: 11-20-2021 End: 11-20-2021 Patient encounter procedure No Primary Care Physician [facility]Laboratory Start: 10-22-2021 End: 10-22-2021 Patient encounter procedure No Primary Care Physician [facility] Start: 07-28-2021 Patient encounter procedure No Primary Care Physician [facility]Laboratory Start: 07-28-2021 End: 07-28-2021 Patient encounter procedure No Primary [facility] Physician [facility] Gastroenterology Procedures Date Procedure Procedure Detail Performing Clinician Start: 02-06-[address] Catrachito Mercedes MD Work Phone: Start: 02-06-2025 Hep[address] C antibody measurement Dr. Ralph Mercedes MD Work Phone: Comment on above: Reactive: Presumptive evidence of antibo dies to HCV. Follow CDC recommendations for supplemental testing.Non-Reactive: Antibodies to HCV were not detected; does not exclude the possibility of exposure to HCVReactive Results are presumptive evidence of antibodies to HCV. Follow CDC recommendations for supplemental testing.Order confirmation testing: HCV Quant by PCR testing - HCVPCR #[id number] Non Reactive: < 0.8 Equivocal: >/= 0.8 to < 1.0 Reactive: >/= 1.0The CDC requires that a reactive/equivocal HCV antibody result be sent out for confirmation. HCV Quant by PCR testing. Start: 02-06-[address] Catrachito Mercedes MD Work Phone: Comment on above: Antibody Result: InterpretationNon-React carmen: Non-ImmuneReactive: ImmuneThe following results were obtained with the [employer] Rubella IgG assay. Results from assays of other manufacturers cannot be used interchangeably. Start: 02-06-2025 Serologic test for syphilis Dr. Catrachito Mercedes MD Work Phone: Start: 02-02-[address] Catrachito Mercedes MD Work Phone: Comment on above: Test Ordered: [id number] Ustekinumab Drug + AntibodyUstekinumab 3.9 ug/mL ES Reference Range: .Quantitation Limit: <0.1 ug/mLResults of 0.1 ug/mL or higher indicate detection ofustekinumab.COMMENTS: - Induction levels in Crohn's Disease: - Patients who received IV 130 mg or 6 mg/kg had median trough concentrations of 2.1 ug/mL and 6.4 ug/mL, respectively, at week 8 in UNITI trials.(1)- Maintenance levels: - Of UNITI patients with trough levels greater than 1.1 ug/mL, about 80% achieved clinical remission (HBI < 5) and about 50% attained CRP normalization.(2) - Higher maintenance concentrations, greater than 4.5 ug/mL (achieved with q8wk or q4wk dosing after SQ induction), may be necessary for endoscopic response (SES-CD score reduction >=50%).(3) - Trough levels predictive of mucosal healing and fistula healing have yet to be determined.- In plaque psoriasis, median trough ustekinumab concentrations were 0.4 ug/mL at weeks 14 and 28 (ranging from undetectable to 3.6 ug/mL).(4) Although PASI50 responders had higher trough concentrations than non- responders in a study of 76 patients, a definitive therapeutic target range for psoriasis has yet to be established.(5)- As with other biologics, the optimal drug concentration depends upon patient-specific factors including co- morbidities, disease and desired therapeutic endpoint- This ustekinumab drug assay measures the free fraction of ustekinumab (antibody-unbound ustekinumab) when serum anti-ustekinumab antibodies are present.Anti-Ustekinumab Antibody <40 ng/mL ES Reference Range: .Quantitation Limit: < 40 ng/mLResults of 40 ng/mL or higher indicate detection of anti-ustekinumab antibodies.COMMENTS:- This anti-ustekinumab antibody assay is drug-tolerant, i.e. the detection of anti-ustekinumab antibodies is not impeded by the presence of ustekinumab in serum.- All positive anti-ustekinumab antibody results are verified by a confirmatory test.- The concomitant free ustekinumab drug concentration (reported above) is the pharmacodynamically active drug when anti-ustekinumab antibodies are present.- Serial measurements over time may be helpful to assess the impact of immunogenicity on the free drug level.- In the IM-UNITI trial, the incidence of anti-ustekinumab antibodies in Crohn's Disease at 1 year was 2.3%.(1)- In psoriasis, anti-ustekinumab antibodies occurred in 4-6% of patients.(6)References:1. Martell FRIEDMAN, et al. Gastroenterology 2016;150(4):S408.2. Martell Matt et al. P007 Exposure-Response to SC Ustekinumab in Moderate - Severe Crohn's Disease: Results from the IM-UNITI Maintenance Study. Advances in AIBD. May 2017.3. Ariana R, et al. Clin Gastroenterol Hepatol 2017;15: 4297-5557.4. Tessa SP, et al. Br J Dermatol;2015:173;855-857.5. Grover H, et al. PLOS ONE DOI;10:1371/journal.pone.6245553.6. Allan L, et al. Br J Dermatol 2014;170:261-273.These tests were developed and their performancecharacteristics determined by [facility]. They have not beencleared or approved by the Food and Drug Administration.However, both drug and anti-drug antibody assays have beendeveloped and validated in accordance with FDA Guidance forIndustry documents: Bioanalytical Method Validation (2013)and Assay Development and Validation for ImmunogenicityTesting of Therapeutic Protein Products (2016).Performed at: [facility] [id number] [place], [place] [id number] Director: Gregg Roberto MD, Phone: [phone] at: [facility] [id number] [place], [place] [id number] Director: Almas Saavedra PhD, Phone: [phone] Start: 01-22-2025 Us uterus 14 wk transabdl 08/30 gestat Zane Pryor CODE ENFORCEMENT OFFICER-LABORATORY TECHNICAL SPECIALIST Work Phone: Start: 01-22-2025 Blood typing serologic rh (d) Zane Pryor CODE ENFORCEMENT OFFICER-LABORATORY TECHNICAL SPECIALIST Work Phone: Start: 01-22-2025 Comprehensive metabolic panel Zane Pryor CODE ENFORCEMENT OFFICER-LABORATORY TECHNICAL SPECIALIST Work Phone: Start: 01-22-2025 Smr prim src wet mount nfct agt Zane Pryor CODE ENFORCEMENT OFFICER-[facility] Work Phone: Start: 01-22-2025 Urnls dip stick/tablet rgnt auto w/o microscopy Zane Pryor CODE ENFORCEMENT OFFICER-LABORATORY TECHNICAL SPECIALIST Work Phone: Start: 12-26-2024 Embryo transfer intrauterine Imelda pollock MD Work Phone: Start: 12-26-2024 Ultrasonic guidance intraoperative Jose Pollard MD Work Phone: Start: 12-20-2024 DESTRUCTION OF LESION Anabell Rogel MD Work Phone: Start: 12-20-2024 Lipid 1996 panel - Serum or Plasma Bill Tristna MD Work Phone: Start: 11-22-2024 Follicle puncture oocyte retrieval any method Katelyn Benitez CODE ENFORCEMENT OFFICER-[facility] Work Phone: Start: 11-20-2024 Us pelvic nonobstetric image dcmtn limited/f/u Alejandra Chávez MD Work Phone: Start: 11-18-2024 Us pelvic nonobstetric image dcmtn limited/f/u Alejandra Chávez MD Work Phone: Start: 11-16-2024 Us pelvic nonobstetric image dcmtn limited/f/u Alejandra Chávez MD Work Phone: Start: 11-14-2024 Us pelvic nonobstetric image dcmtn limited/f/u Alejandra Chávez MD Work Phone: Start: 11-08-2024 Us pelvic nonobstetric image dcmtn limited/f/u Alejandra Chávez MD Work Phone: Start: 10-11-2024 Follicle puncture oocyte retrieval any method Katelyn Benitez CODE ENFORCEMENT OFFICER-LABORATORY TECHNICAL SPECIALIST Work Phone: Start: 10-08-2024 Us pelvic nonobstetric image dcmtn limited/f/u Alejandra Chávez MD Work Phone: Start: 10-07-2024 Us pelvic nonobstetric image dcmtn limited/f/u Alejandra Chávez MD Work Phone: Start: 10-05-2024 Us pelvic nonobstetric image dcmtn limited/f/u Alejandra Chávez MD Work Phone: Start: 08-14-2024 HYSTEROSCOPY DIAGNOSTIC Imelda Pollard MD Work Phone: Start: 08-14-2024 Urine test visual color cmprsn chin Holder MD Work Phone: Start: 12-11-[address] Domo Pearson nd Work Phone: Start: 10-01-2023 Colonoscopy No Primary Care Physician Start: 08-07-2023 Lactoferrin measurement No Primary Care Physician Start: 11-26-2021 Plain chest X-ray No Primary Care Physician Colonoscopy ERNA TROTTER MD Plan of Treatment Date Care Activity Detail Author Start: 2069 RSV High Risk: (Elderly (60+) or Population) (1 - 1-dose 75+ series) RSV High Risk: (Elderly (60+) or Population) (1 - 1-dose 75+ series) [facility] Start: 2044 Zoster Vaccines (1 of 2) Zoster Vaccines (1 of 2) [facility] Start: 07-12-2034 DTaP/Tdap/Td Vaccines (2 - Tdap) DTaP/Tdap/Td Vaccines (2 - Tdap) [facility] Start: 12-20-2029 Lipid panel Lipid Panel [facility] Start: 12-20-2025 Vitamin D25-OH Vitamin D25-OH [facility] Start: 12-12-2025 Yearly Adult Physical Yearly Adult Physical [facility] Start: 02-06-2025 CBC W Auto Differential panel - Blood [facility] Start: 02-06-2025 Hemoglobin A1c/Hemoglobin.total in Blood [facility] Start: 02-06-2025 Hepatitis C antibody measurement [facility] Start: 02-06-2025 Rubella IgG measurement [facility] Start: 02-06-2025 Serologic test for syphilis [facility] Start: 02-06-2025 [facility] Start: 01-25-2025 End: 01-25-2025 Patient encounter procedure 01/25/2025 2:00 PM EDT Office Visit Nicol Dhaliwal [address] [place] [address] Katelyn Benitez, CODE ENFORCEMENT OFFICER-LABORATORY TECHNICAL SPECIALIST [address] [place], [place] [id number] Nicol Dhaliwal Start: 01-25-2025 End: 01-25-2025 Professional / ancillary services management 01/25/2025 1:30 PM EDT Ancillary Procedure Nicol Dhaliwal [address] [place] [address] Nicol Dhaliwal Start: 01-11-2025 End: 01-11-2026 US Pelvis transvaginal US OB transvaginal Imaging Routine Encounter to determine viability of , single or unspecified fetus Expected: 01/11/2025, Expires: 01/11/2026 [facility] Work Phone: Comment on above: Expected: 01/11/2025, Expires: Start: 01-10-2025 End: 01-10-2025 Patient encounter procedure 01/10/2025 9:30 AM EDT Office Visit [place] [address] [address] Anabell Michael MD [address] [place] [address] [facility] Start: 01-05-2025 End: 01-05-2025 Professional / ancillary services management 01/05/2025 8:30 AM EDT Ancillary Procedure Nicol Aliciaon [address] [place] [phone] [facility] Start: 12-26-2024 End: 12-26-2024 Patient encounter procedure 12/26/2024 11:00 AM EDT Procedure Visit Nicol Aliciaon [address] [place] [phone] Imelda Pollard MD [address] [place] [address] Nicol Dhaliwal Start: 12-20-2024 End: 12-20-2024 Patient encounter procedure [facility] Comment on above: Arrived Start: 12-15-2024 End: 12-15-2024 Professional / ancillary services management 12/15/2024 6:45 AM EDT Ancillary Procedure Nicol Dhaliwal [address] [place] [address] Nicol Aliciaon Start: 12-11-2024 End: 12-11-2024 Patient encounter procedure 12/11/2024 2:30 PM EDT Office Visit [facility] [address] [place] [address] [place] [id number] [address] [facility] [address] [place], [place] [phone] [facility] Start: 12-11-2024 End: 12-11-2025 25-hydroxyvitamin D3 [Mass/volume] in Serum or Plasma Vitamin D 25-Hydroxy,Total (for eval of Vitamin D levels) Lab Routine Hypovitaminosis D Expected: 12/11/2024 (Approximate), Expires: 12/11/2025 [facility] Work Phone: Comment on above: Expected: 12/11/2024 (Approximate), Expi res: 12/11/2025 Start: 12-11-2024 End: 12-11-2025 Lipid 1996 panel - Serum or Plasma Lipid Panel Lab Routine Healthcare maintenance Expected: 12/11/2024 (Approximate), Expires: 12/11/2025 [facility] Work Phone: Comment on above: Expected: 12/11/2024 (Approximate), Expi res: 12/11/2025 Start: 11-22-2024 End: 11-22-2024 Patient encounter procedure 11/22/2024 10:00 AM EDT Procedure Visit Nicol Dhaliwal [address] [address] Henrietta Herndon MD [address] [place] [address] Nicol Dhaliwal Start: 11-20-2024 End: 11-20-2025 Blood type and Indirect antibody screen panel - Blood Type And Screen Is this order related to or an upcoming surgery? No Lab Routine Encounter for Rh blood typing Expected: 11/20/2024 (Approximate), Expires: 11/20/2025 [facility] Work Phone: Comment on above: Expected: 11/20/2024 (Approximate), Expi res: 11/20/2025 Start: 11-20-2024 End: 11-20-2025 Chlamydia trachomatis and Neisseria gonorrhoeae DNA [Identifier] in Unspecified specimen by ALEKSEY with probe detection C. trachomatis / N. gonorrhoeae, Amplified, Urogenital Lab Routine Screening for STDs (sexually transmitted diseases) Expected: 11/20/2024 (Approximate), Expires: 11/20/2025 [facility] Work Phone: Comment on above: Expected: 11/20/2024 (Approximate), Expi res: 11/20/2025 Start: 11-20-2024 End: 11-20-2025 Hemoglobin A1c/Hemoglobin.total in Blood Hemoglobin A1C Lab Routine Screening for diabetes mellitus Expected: 11/20/2024 (Approximate), Expires: 11/20/2025 [facility] Work Phone: Comment on above: Expected: 11/20/2024 (Approximate), Expi res: 11/20/2025 Start: 11-20-2024 End: 11-20-2025 Hepatitis B virus surface Ag [Presence] in Serum or Plasma by Immunoassay Hepatitis B surface antigen Lab Routine Screening for STDs (sexually transmitted diseases) Expected: 11/20/2024 (Approximate), Expires: 11/20/2025 [facility] Work Phone: Comment on above: Expected: 11/20/2024 (Approximate), Expi res: 11/20/2025 Start: 11-20-2024 End: 11-20-2025 Hepatitis C virus Ab [Presence] in Serum Hepatitis C Antibody Lab Routine Screening for STDs (sexually transmitted diseases) Expected: 11/20/2024 (Approximate), Expires: 11/20/2025 [facility] Work Phone: Comment on above: Expected: 11/20/2024 (Approximate), Expi res: 11/20/2025 Start: 11-20-2024 End: 11-20-2025 HIV 1+2 Ab+HIV1 p24 Ag [Presence] in Serum or Plasma by Immunoassay HIV 1/2 Antigen/Antibody Screen with Reflex to Confirmation Lab Routine Screening for STDs (sexually transmitted diseases) Expected: 11/20/2024 (Approximate), Expires: 11/20/2025 [facility] Work Phone: Comment on above: Expected: 11/20/2024 (Approximate), Expi res: 11/20/2025 Start: 11-20-2024 End: 11-20-2025 Lutropin [Units/volume] in Serum or Plasma Luteinizing Hormone Lab STAT Female infertility Expected: 11/20/2024 (Approximate), Expires: 11/20/2025 [facility] Work Phone: Comment on above: Expected: 11/20/2024 (Approximate), Expi res: 11/20/2025 Start: 11-20-2024 End: 11-20-2025 Progesterone [Mass/volume] in Serum or Plasma Progesterone Lab STAT Female infertility Expected: 11/20/2024 (Approximate), Expires: 11/20/2025 [facility] Work Phone: Comment on above: Expected: 11/20/2024 (Approximate), Expi res: 11/20/2025 Start: 11-20-2024 End: 11-20-2025 [facility] ANTI-MULLERIAN HORMONE ([facility]), FEMALE [facility] ANTI-[facility]ULL[facility] HORMONE ([facility]), FEMALE Lab Routine Fertility testing Expected: 11/20/2024 (Approximate), Expires: 11/20/2025 [facility] Work Phone: Comment on above: Expected: 11/20/2024 (Approximate), Expi res: 11/20/2025 Start: 11-20-2024 End: 11-20-2025 Treponema pallidum IgG+IgM Ab [Presence] in Serum by Immunoassay Syphilis Screen with Reflex Lab Routine Screening for STDs (sexually transmitted diseases) Expected: 11/20/2024 (Approximate), Expires: 11/20/2025 [facility] Work Phone: Comment on above: Expected: 11/20/2024 (Approximate), Expi res: 11/20/2025 Start: 11-20-2024 End: 11-20-2025 TSH with reflex to Free T4 if abnormal TSH with reflex to Free T4 if abnormal Lab Routine Screening for thyroid disorder Expected: 11/20/2024 (Approximate), Expires: 11/20/2025 [facility] Work Phone: Comment on above: Expected: 11/20/2024 (Approximate), Expi res: 11/20/2025 Start: 11-20-2024 End: 11-20-2024 Professional / ancillary services management 11/20/2024 9:45 AM EDT Ancillary Procedure Nicol Dhaliwal [address] [place] [address] Nicol Dhaliwal Start: 11-18-2024 End: 11-18-2025 Progesterone [Mass/volume] in Serum or Plasma Progesterone Lab STAT Female infertility Expected: 11/18/2024 (Approximate), Expires: 11/18/2025 [facility] Work Phone: Comment on above: Expected: 11/18/2024 (Approximate), Expi res: 11/18/2025 Start: 11-18-2024 End: 11-18-2024 Professional / ancillary services management 11/18/2024 10:00 AM EDT Ancillary Procedure Nicol Aliciaon [address] [place] [address] [facility] Start: 11-16-2024 End: 11-16-2024 Professional / ancillary services management 11/16/2024 7:45 AM EDT Ancillary Procedure Nicol Aliciaon [address] [place] [address] [facility] Start: 11-14-2024 End: 11-14-2025 Estradiol (E2) [Mass/volume] in Serum or Plasma Estradiol Lab STAT Female infertility Expected: 11/14/2024 (Approximate), Expires: 11/14/2025 [facility] Work Phone: Comment on above: Expected: 11/14/2024 (Approximate), Expi res: 11/14/2025 Start: 11-14-2024 End: 11-14-2024 Professional / ancillary services management 11/14/2024 7:15 AM EDT Ancillary Procedure Nicol Aliciaon [address] [place] [address] [facility] Start: 11-08-2024 End: 11-08-2025 Estradiol (E2) [Mass/volume] in Serum or Plasma Estradiol Lab STAT Female infertility Expected: 11/08/2024 (Approximate), Expires: 11/08/2025 [facility] Work Phone: Comment on above: Expected: 11/08/2024 (Approximate), Expi res: 11/08/2025 Start: 10-31-2024 End: 10-31-2024 Social Work 10/31/2024 12:[address] [place] [address] [facility] Start: 10-27-2024 End: 10-27-2024 ambulatory 10/27/2024 8:[address] [place] [address] Marcia Kiser, CODE ENFORCEMENT OFFICER-LABORATORY TECHNICAL SPECIALIST [address] [address] Department [place] [address] [facility] Start: 10-18-2024 End: 10-18-2024 Social Work 10/18/2024 11:15 AM EST [address] [place] [address] [facility] Start: 10-13-2024 End: 10-13-2024 ambulatory 10/13/2024 8:[address] [place] [address] Marcia Kiser, CODE ENFORCEMENT OFFICER-LABORATORY TECHNICAL SPECIALIST [address] [address] Department [place] [address] [facility] Start: 10-11-2024 End: 10-11-2024 Patient encounter procedure 10/11/2024 9:15 AM EST Procedure Visit Nicol Dhaliwal [address] [place] [phone] Henrietta Herndon MD [address] [place] [address] Nicol Dhaliwal Start: 10-08-2024 End: 10-08-2024 Professional / ancillary services management 10/08/2024 8:30 AM EST Ancillary Procedure Nicol Dhaliwal [address] [place] [address] Nicol Dhaliwal Start: 10-07-2024 End: 10-07-2024 Professional / ancillary services management 10/07/2024 9:00 AM EST Ancillary Procedure Nicol Dhaliwal [address] [place] [address] Nicol Dhaliwal Start: 10-03-2024 End: 10-03-2024 Social Work [facility] Start: 09-29-2024 End: 09-29-2024 ambulatory 09/29/2024 8:00 AM EST [address] [place] [address] Marcia Kiser, CODE ENFORCEMENT OFFICER-LABORATORY TECHNICAL SPECIALIST [address] Jannet Hines Department [place] [address] [facility] Start: 09-15-2024 End: 09-15-2024 ambulatory 09/15/2024 8:[address] [place] [address] Marcia Kiser, CODE ENFORCEMENT OFFICER-LABORATORY TECHNICAL SPECIALIST [address] [facility] [place] [address] [facility] Start: 08-13-2024 End: 10-14-2024 Choriogonadotropin ( test) [Presence] in Urine POCT , urine manually resulted Point of Care Testing Routine Encounter for preprocedural laboratory examination Expected: 08/13/2024 (Approximate), Expires: 10/14/2024 [facility] Work Phone: Comment on above: Expected: 08/13/2024 (Approximate), Expi res: 10/14/2024 Start: 08-13-2024 End: 07-14-2025 Hysteroscopy diagnostic Hysteroscopy diagnostic Procedures Routine Fertility testing Expected: 08/13/2024 (Approximate), Expires: 07/14/2025 [facility] Work Phone: Comment on above: Expected: 08/13/2024 (Approximate), Expi res: 07/14/2025 Start: 04-30-2024 COVID-19 Vaccine ( season) COVID-19 Vaccine ( season) [facility] Start: 12-09-2023 Liquid based cervical cytology screening [facility] Start: 10-01-2023 Colonoscopy w/biopsy single/multiple COLONOSCOPY AND BIOPSY [facility] Start: 10-01-2023 Egd transoral biopsy single/multiple EGD BIOPSY SINGLE/MULTIPLE [facility] Start: 10-01-2023 Patient discharge [facility] Start: 08-07-2023 Protein measurement [facility] Start: 08-03-2023 Procedure [facility] Start: 05-04-2023 End: 05-04-2023 Patient encounter procedure 05/04/2023 7:50 AM EDT Office Visit [facility] [address] [place] [phone] Landy Blair, CODE ENFORCEMENT OFFICER - LABORATORY TECHNICAL SPECIALIST [address] [facility][1] [place] [address] [facility] Start: 04-30-2023 COVID-19 Vaccine ( season) COVID-19 Vaccine ( season) [facility] Start: 04-30-2023 Influenza vaccination Influenza Vaccine (#1) [facility] Start: 04-10-2022 Iv infusion therapy/prophylaxis /dx 1st to 1 hr THER/PROPH/DIAG IV INF INIT [facility] Work Phone: Start: 03-05-2022 Celiac disease screen [facility] Work Phone: Start: 03-05-2022 Cytomegalovirus IgG antibody measurement [facility] Work Phone: Start: 03-05-2022 Cytomegalovirus IgM antibody assay [facility] Work Phone: Start: 03-05-2022 Immunoglobulin measurement [facility] Work Phone: Start: 03-05-2022 Serum immunofixation [facility] Work Phone: Start: 03-05-2022 [facility] Work Phone: Start: 2016 DTaP/Tdap/Td Vaccines (1 - Tdap) DTaP/Tdap/Td Vaccines (1 - Tdap) [facility] Start: 2015 Screening for malignant neoplasm of cervix [facility] Start: 2013 DTaP/Tdap/Td Vaccines (1 - Tdap) DTaP/Tdap/Td Vaccines (1 - Tdap) [facility] Start: 2013 Hepatitis B Vaccines (1 of 3 - 19+ 3-dose series) Hepatitis B Vaccines (1 of 3 - 19+ 3-dose series) [facility] Start: 2012 Hepatitis C screening Hepatitis C Screening [facility] Start: 2007 Varicella vaccination Varicella Vaccines (1 of 2 - 13+ 2-dose series) [facility] Start: 2006 Depression Screening Depression Screening [facility] Start: 1995 MMR Vaccines (1 of 1 - Standard series) MMR Vaccines (1 of 1 - Standard series) [facility] Start: 1995 Varicella vaccination Varicella Vaccines (1 of 2 - 2-dose childhood series) [facility] Start: 01-08-1995 COVID-19 Vaccine (#1) COVID-19 Vaccine (#1) [facility] Start: 1994 Cyanocobalamin vitamin b-12 Vitamin B-12 [facility] Start: 1994 Hepatitis B Vaccines (1 of 3 - 3-dose series) Hepatitis B Vaccines (1 of 3 - 3-dose series) [facility] Start: 1994 HIV screening HIV Screening [facility] Start: 1994 Lipid panel Lipid Panel [facility] Start: 1994 Screening for osteoporosis Bone Density Scan [facility] Start: 1994 TB Test TB Test [facility] Start: 1994 Vitamin D25-OH Vitamin D25-OH [facility] Start: 1994 Yearly Adult Physical Yearly Adult Physical [facility] Alanine aminotransfe rase [Enzymatic activity/volume] in Serum or Plasma [facility] Albumin [Mass/volume ] in Serum or Plasma [facility] Albumin [Moles/volum e] in Serum or Plasma [facility] Work Phone: Albumin/Globulin ratio [facility] Work Phone: Alkaline phosphatase [Enzymatic activity/volume] in Serum or Plasma [facility] Anion gap in Serum or Plasma [facility] Antibody to lupus La protein measurement [facility] Work Phone: Antibody to SS-A measurement [facility] Work Phone: Bilirubin, total measurement [facility] BUN/Creatinine ratio [facility] C reactive protein [Mass/volume] in Serum or Plasma [facility] Calcium [Mass/volume ] in Serum or Plasma [facility] Carbon dioxide, tota l [Moles/volume] in Central venous blood [facility] CBC W Auto Different ial panel - Blood [facility] Centromere protein B Ab [Units/volume] in Serum [facility] Work Phone: Chlamydia deoxyribon ucleic acid detection [facility] Chlamydia deoxyribon ucleic acid detection [facility] End: 01-22-2025 Chlamydia trachomatis and Neisseria gonorrhoeae DNA [Identifier] in Unspecified specimen by ALEKSEY with probe detection [facility] Work Phone: Comment on above: Once (Lab) for 1 Occurrences starting until 01/22/2025 End: 10-11-2024 Choriogonadotropin ( test) [Presence] in Urine POCT , urine manually resulted Point of Care Testing Routine Once (Lab) for 1 Occurrences starting 10/11/2024 until 10/11/2024 [facility] Work Phone: Comment on above: Once (Lab) for 1 Occurrences starting until 10/11/2024 End: 11-22-2024 Choriogonadotropin ( test) [Presence] in Urine POCT , urine manually resulted Point of Care Testing Routine Once (Lab) for 1 Occurrences starting 11/22/2024 until 11/22/2024 [facility] Work Phone: Comment on above: Once (Lab) for 1 Occurrences starting until 11/22/2024 Chromatin Ab [Units/ volume] in Serum or Plasma [facility] Work Phone: Clostridioides diffi cile DNA [Presence] in Unspecified specimen by ALEKSEY with probe detection [facility] Work Phone: Colonoscopy [facility] Creatinine [Mass/vol ume] in Serum or Plasma [facility] Cytomegalovirus IgG antibody measurement [facility] Work Phone: Cytomegalovirus IgM antibody assay [facility] [facility] Work Phone: Dehydroepiandrostero ne sulfate (DHEA-S) [Mass/volume] in Serum or Plasma [facility] DNA double strand Ab [Units/volume] in Serum [facility] Work Phone: Electrophoresis: [id number] [facility] Work Phone: Electrophoresis: emiliana ma globulin [facility] Work Phone: Erythrocyte mean cor puscular volume determination [facility] Erythrocyte sedimentation rate [facility] End: 02-05-2025 Estradiol (E2) [Mass/volume] in Serum or Plasma Estradiol Lab STAT Female infertility Daily (including weekends) for 8 Occurrences starting 10/08/2024 until 02/05/2025 [facility] Work Phone: Comment on above: Daily (including weekends) for 8 Occurre nces starting 10/08/2024 until 02/05/2025 End: 01-22-2025 Extra Urine Costello [employer] [facility] Work Phone: Comment on above: Once for 1 Occurrences starting 01/23/20 until 01/22/2025 Gastrointestinal pat hogens panel - Stool by ALEKSEY with probe detection [facility] Work Phone: Globulin measurement [facility] Work Phone: Glucose [Mass/volume ] in Serum or Plasma [facility] Hematocrit [Volume F raction] of Blood [facility] Hemoglobin [Mass/vol ume] in Blood [facility] Hemoglobin A1c/Hemoglobin.total in Blood [facility] Hepatitis B virus sy rface Ag [Presence] in Serum [facility] Hepatitis C antibody measurement [facility] IgA [Mass/volume] in Serum or Plasma [facility] Work Phone: IgE [Units/volume] i n Serum or Plasma [facility] Work Phone: IgG [Mass/volume] in Serum or Plasma [facility] Work Phone: IgM [Mass/volume] in Serum or Plasma [facility] Work Phone: Areli-1 extractable nuc lear Ab [Units/volume] in Serum [facility] Work Phone: Lactoferrin [Presenc e] in Stool by Immunoassay [facility] Work Phone: Leukocytes [#/volume] in Blood [facility] End: 02-05-2025 Lutropin [Units/volume] in Serum or Plasma Luteinizing Hormone (LH) Lab STAT Female infertility Daily (including weekends) for 3 Occurrences starting 10/08/2024 until 02/05/2025 [facility] Work Phone: Comment on above: Daily (including weekends) for 3 Occurre nces starting 10/08/2024 until 02/05/2025 Mean corpuscular hem oglobin concentration determination [facility] Mean corpuscular hem oglobin determination [facility] Measurement of immun oglobulin A in serum specimen [facility] Work Phone: Measurement of renal function [facility] Neutrophil count [facility] Neutrophil cytoplasm ic Ab.classic [Units/volume] in Serum [facility] Work Phone: Neutrophil percent differential count [facility] Ova and parasites id entified in Unspecified specimen by Light microscopy [facility] Work Phone: P-ANCA measurement [facility] Work Phone: Path report.final Dx Spec [facility] Patient referral [facility] Work Phone: Platelets [#/volume] in Blood [facility] Potassium measurement [facility] Procedure [facility] Procedure [facility] Procedure [facility] End: 02-04-2025 Progesterone [Mass/volume] in Serum or Plasma Progesterone Lab STAT Female infertility Daily (including weekends) for 3 Occurrences starting 10/07/2024 until 02/04/2025 [facility] Work Phone: Comment on above: Daily (including weekends) for 3 Occurre nces starting 10/07/2024 until 02/04/2025 End: 02-05-2025 Progesterone [Mass/volume] in Serum or Plasma Progesterone Lab STAT Female infertility Daily (including weekends) for 3 Occurrences starting 10/08/2024 until 02/05/2025 [facility] Work Phone: Comment on above: Daily (including weekends) for 3 Occurre nces starting 10/08/2024 until 02/05/2025 Prolactin [Mass/volu me] in Serum or Plasma [facility] Protein electrophore sis panel - Serum or Plasma [facility] Work Phone: Protein measurement [facility] Work Phone: Protein measurement [facility] Red blood cell count [facility] Red cell distributio n width determination [facility] TERRENCE US Endometrial L ining Check [facility]ERR[facility] US Endometrial Lining Check Imaging Routine Female infertility 12/15/2024 7:02 AM EDT [facility] Work Phone: TERRENCE US Pelvis Limite d Follicles - Follicle Studies Performed [facility] US Pelvis Limited Follicles - Follicle Studies Performed Imaging Routine Female infertility 09/27/2024 7:51 AM EST [facility] Work Phone: TERRENCE US Pelvis Limite d Follicles - Follicle Studies Performed [facility] US Pelvis Limited Follicles - Follicle Studies Performed Imaging Routine Female infertility 10/09/2024 9:42 AM EST [facility] Work Phone: Rubella IgG measurement [facility] SCL-70 extractable n uclear Ab [Units/volume] in Serum by Immunoassay [facility] Work Phone: Serologic test for syphilis [facility] Serum chloride measurement [facility] Serum protein electrophoresis [facility] Work Phone: Ferrell extractable nu clear Ab [Presence] in Serum [facility] Work Phone: Sodium measurement [facility] Testosterone Free [Mass/volume] in Serum or Plasma [facility] Thyroid stimulating hormone measurement [facility] Tissue transglutamin ase IgA Ab [Units/volume] in Serum [facility] Work Phone: Total protein measurement [facility] Urea nitrogen [Mass/ volume] in Serum or Plasma [facility] End: 01-22-2025 Urinalysis complete W Reflex Culture panel - Urine [facility] Work Phone: Comment on above: Once (Lab) for 1 Occurrences starting until 01/22/2025 US Pelvis [facility] Immunization Date Immunization Notes Care Provider Deedee ferguson 07-06-2023 influenza virus vaccine, unspecified formulation ERNA TROTTER MD [facility] Payers Date Payer Category Payer Self-pay [id number] 2023 [employer] Blue [employer] Managed Care [id number]. 9.6 [id number] 2022 Unknown [id number]. 1.13.680.2.7.3.6 [id number] 2017 Unknown [id number] 1994 Unknown [id number] 2.16.840.1.128328.3.579.2.627 1994 Unknown [id number] 2.16.840.1.626076.3.579.2.627 1994 Unknown [id number] 2.16.840.1.867662.3.579.2.627 1994 Unknown [id number] 2.16.840.1.287090.3.579.2.627 1994 Unknown [id number] 2.16.840.1.517678.3.579.2.627 1994 Unknown [id number] 2.16.840.1.885197.3.579.2.1244 1994 Unknown [id number] 2.16.840.1.218422.3.579.2.1243 1994 Unknown [id number] 2.16.840.1.596670.3.579.2.124 1994 Unknown [id number] 2.16.840.1.514992.3.579.2.1243 1994 Unknown [id number] 2.16.840.1.007582.3.579.2.124 1994 Unknown [id number] 2.16840.1.305207.3.579.2.1241 1994 Unknown [id number] 2.16.840.1.672103.3.579.2.1241 1994 Unknown [id number] 2.16.840.1.282471.3.579.2.1244 1994 Unknown [id number] 2.16.840.1.258374.3.579.2.1244 1994 Unknown [id number] 2.16840.1.910079.3.579.2.1244 1994 Unknown [id number] 2.16.840.1.189158.3.579.2.1244 1994 Unknown [id number] 2.16.840.1.592730.3.579.2.1244 1994 Unknown [id number] 2.16.840.1.930771.3.579.2.1244 1994 Unknown [id number] 2.16.840.1.375108.3.579.2.1244 1994 Unknown [id number] 2.16.840.1.934294.3.579.2.1245 1994 Unknown [id number] 2.16.840.1.068060.3.579.2.1244 1994 Unknown [id number] 2.16.840.1.959420.3.579.2.124 1994 Unknown [id number] 2.16.840.1.738148.3.579.2.1244 1994 Unknown [id number] 2.16.840.1.298647.3.579.2.124 1994 Unknown [id number] 2.16.840.1.024360.3.579.2.1244 1994 Unknown [id number] 2.16840.1.907958.3.579.2.1244 1994 Unknown [id number] 2.16840.1.363620.3.579.2.1244 1994 Unknown [id number] 2.16840.1.762370.3.579.2.1244 1994 Unknown [id number] 2.16840.1.980279.3.579.2.1244 1994 Unknown [id number] 2.16.840.1.387073.3.579.2.1244 1994 Unknown [id number] 2.16840.1.642925.3.579.2.1244 1994 Unknown [id number] 2.16840.1.630852.3.579.2.1244 1994 Unknown [id number] 2.16.840.1.683676.3.579.2.1244 1994 Unknown [id number] 2.16840.1.646977.3.579.2.1244 1994 Unknown [id number] 2.16840.1.609934.3.579.2.1244 1994 Unknown [id number] 2.840.1.744030.3.579.2.1244 1994 Unknown [id number] 2.840.1.678309.3.579.2.1244 1994 Unknown [id number] 2.840.1.329138.3.579.2.1244 1994 Unknown [id number] 2.0.1.129467.3.579.2.1244 1994 Unknown [id number] 2.840.1.126639.3.579.2.1244 1994 Unknown [id number] 2.0.1.174906.3.579.2.1244 1994 Unknown [id number] 2.840.1.162523.3.579.2.1244 1994 Unknown [id number] 10.15.830.1.707295.3.579.2.124 Department of [facility] e ( and others) [id number] Unknown R PARTH [id number] Unknown [id number] Unknown UMR PARTH [id number] Unknown [id number] 840.1.418209.3.579.2.462 Unknown [id number] 2840.1.277208.3.579.2.462 Unknown [id number] 2.840.1.300919.3.579.2.462 Unknown [id number] 2840.1.213140.3.579.2.462 Unknown [id number] 2.16.840.1.039593.3.579.2.462 Unknown [id number] 2.16.840.1.398004.3.579.2.462 Unknown [id number] 2.16.840.1.585728.3.579.2.462 Unknown [id number] 2.16.840.1.866642.3.579.2.462 Unknown [id number] 2.16.840.1.121102.3.579.2.462 Unknown [id number] 2.16.840.1.837665.3.579.2.462 Unknown [id number] 2.16.840.1.615877.3.579.2.462 Unknown [id number] 2.16.840.1.425788.3.579.2.462 Unknown [id number] 2.16.840.1.995283.3.579.2.462 Unknown [id number] 2.16.840.1.647524.3.579.2.462 Unknown [id number] 2.16.840.1.899811.3.579.2.462 Unknown [id number] 2.16.840.1.244211.3.579.2.462 Unknown [id number] 2.16840.1.717477.3.579.2.462 Unknown [id number] 2.16840.1.096201.3.579.2.462 Social History Date Type Detail Facility Tobacco smoking status TXIS Unknown if ever smoked [facility] Work Phone: Start: 1995 Sex Assigned At Female [facility] Start: 08-03-2023 End: 12-09-2023 Tobacco smoking status TXIS Tobacco smoking consumption unknown [facility] Start: 1995 Sex Assigned At Not on file [facility] Start: 01-25-2024 End: 12-11-2024 Gender identity Not on file [facility] Start: 04-20-2023 End: 01-26-2025 Tobacco smoking status Never smoked tobacco (finding) [facility] Start: 01-25-2024 Tobacco use and exposure Smokeless tobacco non-user [facility] Work Phone: Start: 01-25-2024 End: 01-09-2025 Alcoholic beverage intake Ex-drinker (finding) [facility] Work Phone: Start: 01-25-2024 End: 12-11-2024 History of Social function [facility] Work Phone: Start: 09-30-2023 Gender identity Identifies as female gender (finding) [facility] Work Phone: Start: 09-30-2023 Sexual orientation Heterosexual (fin ding) [facility] Work Phone: Start: 01-15-2024 End: 01-25-2024 Exposure to SARS-CoV-2 (event) Unable to assess [facility] Start: 07-04-2024 End: 01-25-2025 Exposure to SARS-CoV-2 (event) Not sure [facility] NEGATED: Highlighted rowStart: LDF History of tobacco use Passive smoker [facility] Work Phone: Medical Equipment Procedure Code Equipment Code Equipment Origin al Text Equipment Identifier Dates [id number], [id number] Star t: 08-18-2024 End: 11-22-2024 Goals Date Patient Goal Desired Activity /State Functional Status Date Assessment Result Facility 01-22-2025 [place] - 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 [C-SSRS] [facility] Work Phone: 08-27-2023 Functional Status Awake, Up to bathroom [facility] 08-27-2023 Functional Status bilateral knee high applied/on [facility] 08-27-2023 Functional Status Maintained [facility] 08-13-2023 Functional Status Sensory Deficits None A [facility] Mental Status Date Assessment Result Facility 10-01-2023 Cognitive function Level Of Cons ciousness Follows Commands;Drowsy [facility] Work Phone: 10-01-2023 Cognitive function Voice/Name [facility] Work Phone: 08-27-2023 Mental Status Oriented x 4 [facility] 08-27-2023 [facility]-05-2023 to 02-23-2025 Note Date & Type Note Facility 02-23-2025 Progress note [facility] 02-06-2025 Progress note [facility] 02-02-[address] [facility] 02-02-2025 Progress note Note Date/Time February 02, 2025 4:09pm [facility] [address], [address] [place] [address] OFFICE VISIT Date of Service: 02/02/25 MR#: [id number] Acct: [id number] Name: MARIXA AMOS Rep #: [id number] : 1995 Provider: STEFANIE Allen Age/Sex: 29/F [facility] Status: Signed Intake Vital Signs 01/25/25 14:45 02/02/25 15:25 Height 5 ft 3 in 5 ft 3 in Weight: 184 lb 8 oz 186 lb 4 oz BMI 32.6 33.0 BP 128/62 H 143/86 H Blood Pressure Location Rt brachial Position Sitting Intake Visit Reasons: fu early spotting per Director Underwriter Sales Required: No Is patient in pain?: No Allergies No Known Allergies Allergy (Verified 02/02/25 15:24) Medications ?Medication ?Instructions ?Recorded ?Confirmed ?Type ustekinumab 90 mg/mL subcutaneous 90 mg subcut Q8W #1 mL 07/07/24 02/02/25 Rx syringe (Stelara) aspirin 81 mg tablet,delayed 81 mg PO QDAY 01/01/25 History release (Adult Aspirin Regimen) estradiol 2 mg tablet (Estrace) 6 mg PO QDAY 01/01/25 02/02/25 History prednisone 10 mg tablet 10 mg PO QDAY 01/01/2502/02 History metformin 1,000 mg tablet 1,500 mg PO QDAY 01/26/25 History multivit-min no.71-iron fum 28 cap PO 01/26/25 5 History mg-folate no.1 1 mg-dha 300 mg capsule (PNV-[place]) prednisone 10 mg tablet 10 mg PO QDAY 01/26/2502/02 History progesterone oil 75 mg IM QHS 01/26/25 History Post menopausal: No Patient : Yes : No PFSH Medical History Obesity (BMI 30.0-34.9) Other obesity Rectal bleeding Endometriosis Low iron Anemia Latent tuberculosis Ulcerative colitis Surgical History History of esophagogastroduodenoscopy (EGD) History of laparoscopy History of colonoscopy Family History Grandmother Diabetes Maternal Grandfather Diabetes Paternal Father Hypertension Hyperlipidemia CAD (coronary artery disease) CABG 2 years ago Social History adopted: No household members: spouse housing: house current occupational status: employed current occupation: [employer] current occupational exposures/hazards: No pets and animals: Yes pets and animals: dog(s) history of recent travel: No sexually active: Yes Smoking Status: Never smoker alcohol intake: never substance use type: does not use well-balanced diet: daily or most days caffeine: No eating out: rarely or never during the past year weight has: remained stable what type of physical activity do you participate in: walking frequency: 3-4 times per week duration: 45-60 minutes/day cathy/mormon: None seatbelt use: always do you feel safe at home: Yes additional social history: -Romel- Cane Feeder HPI fu early spotting per SM Details: MARIXA AMOS is a 29 year old who presents for early bleeding in 1st trimester. no longer having bleeding, mild pink discharge. History 2 Elective abortions Hx Para 0 Spontaneous abortions 1 Hx # Term Pregnancies Ectopic pregnancies Hx # Pregnancies Multiple births # of living children Past Pregnancies Del. Date Name GA/Weeks Outcome Route Bth Weight Gen Labor Lgth Ane stliseia Del Locatn Provider FOB Unknown 07/2023 20 Delivery Date: Last Updated by: Jacquie Durán demise, possible subchorionic hematoma Exam Const General: cooperative and comfortable Resp Effort & Inspection: normal respiratory effort Speculum Exam - Vagina: normal appearance of the vagina Coding Level of Care Code Off vis,est,level 3 Diagnoses Subchorionic hematoma in first trimester O41.8X10; O46.8X1 Assessment and Plan Assessment and Plan (1) Subchorionic hematoma in first trimester: Status: Acute Comment: seen on US in ER 01/22/25 and with fertility specialist Plan: +FHT on us today 166. 6/6, NOB scheduled for wednesday. 02/02/25 1609 <Electronically signed by Mary Beth dixon CNM> Date _ Mary Beth Allen CNM Cosigner Signature: Date (if applicable) CC: ~ [place] [facility] Work Phone: 1(574) 752-863805-29-2025 History of Present illness Narrative* Katelny Benitez, CODE ENFORCEMENT OFFICER-LABORATORY TECHNICAL SPECIALIST - 01/25/2025 2:00 PM EDT Visit Type: In Person [...] establishing care with an OB. Will see [facility] [place] [place] on 01-26-2025. Will provide recommendations if [...] CNP 01/25/25 2:50 PM [facility] Work [facility]: 1(955) 278-358605-26-2025 Physician Emergency department Note* ISAURA Daniel - 01/22/2025 11:40 AM EDT HPI Chief Complaint Patient presents with Vaginal Discharge 29-year-old female presents today with brown/pink vaginal discharge and she is 6 weeks . She is using in vitro fertilization and they advised that if she develops any discharge she should come immediately to the emergency department. She had a normal ultrasound last week. She is A1. Shelost her first baby in her second trimester. She presently denies fever or chills. She denies chestpain or dyspnea. She denies abdominal pain, nausea, or vomiting. History provided by: Patient and spouse drafter tool design used: No Patient History Medical History[1] Surgical [...] bowel sounds. Her liver function and kidney functionwere normal. Her urinalysis was negative for nitrates or leukocytes or proteins and this lowers my concern for eclampsia. CBC was negative for leukocytosis or left shift and her hemoglobin hematocritwere stable at 11.1 and 32.8. Wet prep [...] of Data Reviewed Labs: ordered. Details: See [facility] Radiology: ordered and independent interpretation performed. Details: See [facility] Procedure Procedures [1] Past Medical History: [...] Drug use: Never ISAURA Daniel 01/22/25 1326 [facility] Work Phone: 1([phone]) 102-931805-26-2025 Emergency department Note* ISAURA Daniel - 01/22/2025 11:40 AM EDT HPI Chief Complaint Patient presents with Vaginal Discharge 29-year-old female presents today with brown/pink vaginal discharge and she is 6 weeks . She is using in vitro fertilization and they advised that if she develops any discharge she should come immediately to the emergency department. She had a normal ultrasound last week. She is A1. Shelost her first baby in her second trimester. She presently denies fever or chills. She denies chestpain or dyspnea. She denies abdominal pain, nausea, or vomiting. History provided by: Patient and spouse drafter tool design used: No Patient History Medical History[1] Surgical [...] bowel sounds. Her liver function and kidney functionwere normal. Her urinalysis was negative for nitrates or leukocytes or proteins and this lowers my concern for eclampsia. CBC was negative for leukocytosis or left shift and her hemoglobin hematocritwere stable at 11.1 and 32.8. Wet prep [...] of Data Reviewed Labs: ordered. Details: See [facility] Radiology: ordered and independent interpretation performed. Details: See [facility] Procedure Procedures [1] Past Medical History: [...] Drug use: Never ISAURA Daniel 01/22/25 1326 * Candi Kurtz RN - 01/22/2025 11:13 AM EDT Patient to ED for vaginal discharge. Patient reports being 6 weeks and noticed brown odorless discharge on Wednesday. Patient also reporting lower back pain. Patient denies any urinary issues at this time. [facility]: 1(459) 769-749405-26-2025 Emergency department Triage note* Candi Kurtz RN - 01/22/2025 11:13 AM EDT Patient to ED for vaginal discharge. Patient reports being 6 weeks and noticed brown odorless discharge on Wednesday. Patient also reporting lower back pain. Patient denies any urinary issues at this time. [facility] Work Phone: 1(772) 173-652305-05-2025 Evaluation note* Diagnosis Onset Date Resolution Status Admit Date Chronic GERD chronic January 01 7:22am Ulcerative colitis chronic December 7:22am [facility] Work Phone: 1(723) 159-816905-05-2025 Evaluation note* Diagnosis Onset Date Resolution Status Admit Date Chronic GERD chronic January 01 7:22am Ulcerative colitis chronic December 7:22am Amenorrhea acute January 26, 2025 12:46pm Subchorionic hematoma in fir st trimester acute February 02, 2025 3 :00pm [facility] Work Phone: 1([phone]) 541-711205-05-2025 Evaluation note* Diagnosis Onset Date Resolution Status Admit Date Chronic GERD chronic January 01 7:22am Ulcerative colitis chronic December 7:22am Amenorrhea resolved January 26, 2025 12:46pm Subchorionic hematoma in fir st trimester acute February 02, 2025 3 :00pm BMI 32.0-32.9,adult acute February 06, 2025 8:12am Crohn's disease acute January 8:12am Endometriosis acute February 06, 2025 8:12am History of anemia acute February 062024 8:12am History of maternal blood transfusion, currently acute February 06, 2025 8:12am Hx of TB skin testing acute Jan 8:12am Infertility acute February 06 8:12am Obesity affecting acute February 06, 2025 8:12am PCOS (polycystic ovarian syndrome) acute February 06, 2025 8:12am acute February 06 8:12am resulting from in vitro fertilization acute February 06 8:12am Prior with demise acute February 06, 2025 8:12am Rectal bleeding acute January 8:12am Subchorionic hematoma in fir st trimester acute February 06, 2025 8:12am Supervision of high-risk acute February 06, 2025 8:12am Chronic GERD chronic February 06 8:12am Ulcerative colitis chronic January 282024 8:12am [place] [facility] Work Phone: 1([phone]) 418-255105-05-2025 Evaluation note* Diagnosis Onset Date Resolution Status Admit Date Chronic GERD chronic January 01 7:22am Ulcerative colitis chronic December 7:22am Amenorrhea resolved January 26, 2025 12:46pm Subchorionic hematoma in fir st trimester acute February 02, 2025 3 :00pm BMI 32.0-32.9,adult acute February 06, 2025 8:12am Crohn's disease acute January 8:12am Endometriosis acute February 06, 2025 8:12am History of anemia acute February 062024 8:12am History of maternal blood transfusion, currently acute February 06, 2025 8:12am Hx of TB skin testing acute Jan 8:12am Infertility acute February 06 8:12am Obesity affecting acute February 06, 2025 8:12am PCOS (polycystic ovarian syndrome) acute February 06, 2025 8:12am acute February 06 8:12am resulting from in vitro fertilization acute February 06 8:12am Prior with demise acute February 06, 2025 8:12am Rectal bleeding acute January 8:12am Subchorionic hematoma in fir st trimester acute February 06, 2025 8:12am Supervision of high-risk acute February 06, 2025 8:12am Chronic GERD chronic February 06 8:12am Ulcerative colitis chronic January 282024 8:12am BMI 32.0-32.9,adult acute February 23, 2025 10:46am Crohn's disease acute January 10:46am Endometriosis acute February 23, 2025 10:46am History of anemia acute February 232024 10:46am History of maternal blood transfusion, currently acute February 23, 2025 10:46am Hx of TB skin testing acute Jan 10:46am Infertility acute February 23 10:46am Obesity affecting acute February 23, 2025 10:46am PCOS (polycystic ovarian syndrome) acute February 23, 2025 10:46am acute February 23 10:46am resulting from in vitro fertilization acute February 23 10:46am Prior with demise acute February 23, 2025 10:46am Rectal bleeding acute January 10:46am Subchorionic hematoma in fir st trimester acute February 23, 2025 10:46am Supervision of high-risk acute February 23, 2025 10:46am Chronic GERD chronic February 23 10:46am Ulcerative colitis chronic January 292024 10:46am [facility] Work Phone: 1([phone] 267-841905-05-2025 Evaluation note* Diagnosis Onset Date Resolution Status Admit Date Ulcerative colitis chronic December 7:22am Chronic GERD resolved January 01 7:22am Amenorrhea resolved January 26, 2025 12:46pm Subchorionic hematoma in fir st trimester acute February 02, 2025 3 :00pm Crohn's disease acute January 8:12am History of anemia acute February 062024 8:12am History of maternal blood transfusion, currently acute February 06, 2025 8:12am Obesity affecting acute February 06, 2025 8:12am acute February 06 8:12am resulting from in vitro fertilization acute February 06 8:12am Prior with demise acute February 06, 2025 8:12am Subchorionic hematoma in fir st trimester acute February 06, 2025 8:12am Supervision of high-risk acute February 06, 2025 8:12am Ulcerative colitis chronic January 282024 8:12am BMI 32.0-32.9,adult resolved February 06, 2025 8:12am Chronic GERD resolved February 06 8:12am Endometriosis resolved February 06, 2025 8:12am Hx of TB skin testing resolved Jan 8:12am Infertility resolved February 06 8:12am PCOS (polycystic ovarian syndrome) resolved February 06, 2025 8:12am Rectal bleeding resolved January 8:12am Crohn's disease acute January 10:46am History of anemia acute February 232024 10:46am History of maternal blood transfusion, currently acute February 23, 2025 10:46am Obesity affecting acute February 23, 2025 10:46am acute February 23 10:46am resulting from in vitro fertilization acute February 23 10:46am Prior with demise acute February 23, 2025 10:46am Subchorionic hematoma in fir st trimester acute February 23, 2025 10:46am Supervision of high-risk acute February 23, 2025 10:46am Ulcerative colitis chronic January 292024 10:46am BMI 32.0-32.9,adult resolved February 23, 2025 10:46am Chronic GERD resolved February 23 025 10:46am Endometriosis resolved February 23, 2025 10:46am Hx of TB skin testing resolved Jan 10:46am Infertility resolved February 23 10:46am PCOS (polycystic ovarian syndrome) resolved February 23, 2025 10:46am Rectal bleeding resolved January 10:46am Crohn's disease acute February 11:16am History of anemia acute March 092024 11:16am History of maternal blood transfusion, currently acute March 09, 2025 11:16am Obesity affecting acute March 09, 2025 11:16am acute March 09 11:16am resulting from in vitro fertilization acute March 09 11:16am Prior with demise acute March 09, 2025 11:16am Subchorionic hematoma in fir st trimester acute March 09, 2025 11:16am Supervision of high-risk acute March 09, 2025 11:16am Ulcerative colitis chronic February 272024 11:16am [facility] Work Phone: [phone] 360-451804-29-2025 History of Present illness Narrative* Gavino Tristan [...] Preop diagnosis: Infertility Post op diagnosis: Same Scallop Binder: Dr. Holder Depth: 7 cm Curve: anterior [...] Tristan 12/26/24 11:35 AM documented in this [facility] Work Phone: [phone] Hospital Discharge instructions* Discharge Instructions* Sarah Bansal RN - 12/26/2024 10:41 AM EDT Images from the original note were not included. [facility] [address] [place] [address] Home Going Instructions after Embryo Transfer: After [...] in : Advil, Motrin, Ibuprofen, Aleve, Excedrin, [place], Sudafed, and Pepto-Bismol. Avoid aspirin unless you [...] SARAH BANSAL 10:41 AM documented in this [facility] Work Phone: [phone] 472-750304-23-2025 History of Present illness Narrative* Anabell Rogel MD - 12/20/2024 1:00 PM EDT Lg Amos is a 29 y.o. female who presents for the following: Wart (Right 3rd toe plantar wart-pt states was treated with ln2 at [facility]. ). Review of Systems: No other skin [...] MD 12/20/2024 documented in this [facility] Work Phone: [phone] History of Present illness Narrative* Amy Cherry [...] - Amy Cherry RN [facility]: [phone] Evaluation + Plan note* Assessment & Plan Note - Denise Ordonez MD - 12/11/2024 2:30 PM EDTAssociated Problem(s): Polycystic ovarian disease She is following with gynecology. [facility] Work Phone: [phone] Evaluation + Plan note* Assessment & Plan Note - Denise Ordonez MD - 12/11/2024 2:30 PM EDTAssociated Problem(s): Crohn's disease of colon without complication (Multi) She is following with gastroenterology. [facility] Work Phone: [phone] 449-298404-14-2025 History of Present illness Narrative* Denise Ordonez [...] is following with gastroenterology. [facility]: [phone] Miscellaneous Notes* Assessment & Plan Note - Denise Ordonez MD - 12/11/2024 2:30 PM EDTAssociated Problem(s): Polycystic ovarian disease She is following with gynecology. * Assessment & Plan Note - Denise Ordonez MD - 12/11/2024 2:30 PM EDTAssociated Problem(s): Crohn's disease of colon without complication (Multi) She is following with gastroenterology. [facility] Work Phone[facility] [phone] 570-585703-26-2025 Nurse Note* Michaelle López RN - 11/22/2024 11:20 AM EDT Patient discharged to home in stable condition via wheelchair to RIDE HOME: Partner's car. Discharge instructions given and concerns addressed. [facility] Work Phone: [phone] 720-238303-26-2025 Nurse Note* Michaelle López RN - 11/22/2024 11:20 AM EDT Patient discharged to home in stable condition via wheelchair to RIDE HOME: Partner's car. Discharge instructions given and concerns addressed. [facility]: [phone] History of Present illness Narrative* Henrietta Herndon MD - 11/22/2024 10:00 AM EDTAssociated Order(s): Egg Retrieval Pre-Procedure Diagnose(s): Encounter for assisted reproductive fertility cycle Post-Procedure Diagnose(s): Encounter for assisted reproductive fertility cycle Patient ID: Marixa Amos is a 29 y.o. female. Egg Retrieval Date/Time: 11/22/2024 10:15 AM Performed by: Henrietta Herndon MD Authorized by: Katelyn Benitez APRN-LABORATORY TECHNICAL SPECIALIST Consent: Consent obtained: Verbal and written Consent [...] diagnosis: Female infertility Post op diagnosis: Same Scallop Binder: Leslie IV Fluids: 700 cc EBL: 5 cc UOP: Not recorded Specimen: Oocytes Complications: None Number of Oocytes right ovary: 14 Ovarian acc ss (right): Easy Number of Oocytes left ovary: 9 Ovarian access (left): Easy Endometrial thickness: TL Needle type: Single Additional notes: I was present and supervised the entire procedure. Henrietta Herndon 11/22/24 10:16 AM documented in this [facility] Work Phone: [phone] 252-804203-26-2025 Hospital Discharge instructions* Discharge Instructions* Sarah Bansal RN - 11/22/2024 8:38 AM EDT Images from the original note were not included. [facility] [address] [place] [address] Home Going Instructions after Egg Retrieval: Activity: [...] 2 weeks following your oocyte retrieval. Call [phone] to speak with a Physician or Nurse if you have any concerns. SARAH BANSAL 8:38 AM [facility] [address] [place], [place] IVF LAB EMBRYO UPDATE PROTOCOL The [...] biopsied and frozen. SARAH BANSAL 8:38 AM [facility] [address] [place] [address] Frozen Embryo Transfer Instructions After your egg retrieval, follow up with your IVF nurse within 3-4 days Wednesday- Wednesday regarding theplan for your frozen embryo transfer (FET) cycle. Your IVF nurse will order and review with you themedications you will be using for the cycle. You will be sent an email from [employer] to fill out your Frozen Embryo Treatment [...] BANSAL RN 8:38 AM documented in this [facility] Work Phone: [phone] 672-287503-24-2025 History of Present illness Narrative* Amy Cherry [...] ask you to either come here to [facility] or a [facility] lab attached to a [facility]. If you go to a standing lab we cannot guarantee we would get your results in a timely manner! Please see trigger shot and retrieval day instructions below! Your retrieval will fall on Wednesday 11/22 at 10:00 AM but please arrive 1 hr early, getting here at 9:00 AM! Patient to go to [facility] tomorrow for post trigger labs and yearly labs/STDs. Patient aware to hold Metformin will also hold Omeprazole (only takes as needed) starting tomorrow evening. Lab reqs to be printed and placed at medical front desk specialist. 11/20/24 at 2:19 PM - Amy Cherry RN documented in this [facility] Work Phone: [phone] 946-491803-22-2025 History of Present illness Narrative* Imelda Cali [...] Cali 11/18/2024 10:08 AM [facility] Work Phone: [phone] 362-606503-20-2025 History of Present illness Narrative* Mikhail Ascencio [...] continued monitoring. Patient agreeable. [facility] for scheduling. Detailed MyChart sent as well. 11/16/24 at 1:54 PM - Mikhail Ascencio RN [facility] Work Phone: [phone] History of Present illness Narrative* Amy Cherry [...] and will RTC . Patient transferred to medical front desk specialist. 11/14/24 at 1:36 PM - Amy Cherry RN documented in this [facility] Work Phone: [phone] 439-613403-12-2025 History of Present illness Narrative* Amy Cherry RN - 11/08/2024 10:15 AM EDT MUKESH NOTE - IVF STIM BASELINE Patient [...] 11/07/24 PGT-A/M? No PGT order scanned into [facility], confirmed by: N/A on N/A Plan to [...] of vials confirmed: 2 on 11/08/24 at [facility] Component Latest Ref Rng 11/08/2024 WBC [...] MyChart sent to patient. Patient transferred to medical front desk specialist to schedule for Wednesday. 11/08/24 at 3:18 PM - Amy Cherry RN documented in this [facility] Work Phone: [phone] Nurse Note* Pao Beard RN - 10/11/2024 10:55 AM EST Patient discharged to home in stable condition via wheelchair to RIDE HOME: Partner's car. VSS at time of discharge. Discharge instructions given and concerns addressed. Pao Beard RN 10/11/24 11:13 AM [facility] Work Phone: [phone] 615-141402-12-2025 Nurse Note* Pao Beard RN - 10/11/2024 10:55 AM EST Patient discharged to home in stable condition via wheelchair to RIDE HOME: Partner's car. VSS at time of discharge. Discharge instructions given and concerns addressed. Pao Beard RN 10/11/24 11:13 AM [facility] Work [facility]: [phone] Nurse Note* Pao Beard RN - 10/11/2024 10:55 AM EST Patient discharged to home in stable condition via wheelchair to RIDE HOME: Partner's car. VSS at time of discharge. Discharge instructions given and concerns addressed. Pao Beard RN 10/11/24 11:13 AM [facility]: [phone] 304-994302-12-2025 History of Present illness Narrative* Henrietta Herndon MD - 10/11/2024 9:15 AM ESTAssociated Order(s): Egg Retrieval Pre-Procedure Diagnose(s): Encounter for assisted reproductive fertility cycle Post-Procedure Diagnose(s): Encounter for assisted reproductive fertility cycle Patient ID: Marixa Amos is a 29 y.o. female. Egg Retrieval Date/Time: 10/11/2024 9:41 AM Performed by: Henrietta Herndon MD Authorized by: Katelyn Benitez APRN-LABORATORY TECHNICAL SPECIALIST Consent: Consent obtained: Verbal and written Consent [...] diagnosis: Female infertility Post op diagnosis: Same Scallop Binder: Leslie IV Fluids: 300 cc EBL: 5 cc UOP: Not recorded Specimen: Oocytes Complications: None Number of Oocytes right ovary: 16 Ovarian access (right): Easy Number of Oocytes left ovary: 9 Ovarian access (left): Easy Endometrial thickness: Tl Needle type: Single Additional notes: I was present and supervised the entire procedure. Henrietta Herndon 10/11/24 9:42 AM documented in this [facility] Work Phone: [phone] History of Present illness Narrative* Henrietta Herndon MD - 10/11/2024 9:15 AM ESTAssociated Order(s): Egg Retrieval Pre-Procedure Diagnose(s): Encounter for assisted reproductive fertility cycle Post-Procedure Diagnose(s): Encounter for assisted reproductive fertility cycle Patient ID: Marixa Amos is a 29 y.o. female. Egg Retrieval Date/Time: 10/11/2024 9:41 AM Performed by: Henreitta Herndon MD Authorized by: Katelyn Benitez APRN-LABORATORY TECHNICAL SPECIALIST Consent: Consent obtained: Verbal and written Consent [...] diagnosis: Female infertility Post op diagnosis: Same Scallop Binder: Leslie IV Fluids: 300 cc EBL: 5 cc UOP: Not recorded Specimen: Oocytes Complications: None Number of Oocytes right ovary: 16 Ovarian access (right): Easy Number of Oocytes left ovary: 9 Ovarian access (left): Easy Endometrial thickness: Tl Needle type: Single Additional notes: I was present and supervised the entire procedure. Henrietta Herndon 10/11/24 9:42 AM [facility] Work Phone: [phone] Miscellaneous Notes* Addendum Note - Pao Beard RN - 10/11/2024 9:15 AM ESTEncounter addended by: Pao Beard RN on: 10/11/2024 2:38 PM Actions taken: MAR administration accepted documented [facility] this [facility] Work Phone: [phone] 222-152702-12-2025 Note* Addendum Note - Pao Beard RN - 10/11/2024 9:15 AM ESTEncounter addended by: Pao Beard RN on: 10/11/2024 2:38 PM Actions taken: MAR administration accepted [facility] Work Phone: [phone] Hospital Discharge instructions* Discharge Instructions* Pao Beard RN - 10/11/2024 7:49 AM EST Images from the original note were not included. [address] [place] [address] Home Going Instructions after Egg Retrieval: Activity: [...] 2 weeks following your oocyte retrieval. Call [phone] to speak with a Physician or Nurse if you have any concerns. Pao Beard 9:11 AM [facility] [address] [place], [place] IVF LAB EMBRYO UPDATE PROTOCOL The [...] biopsied and frozen. Pao Beard 9:11 AM [facility] [address] [place] [address] Frozen Embryo Transfer Instructions After your egg retrieval, follow up with your IVF nurse within 3-4 days Wednesday- Wednesday regarding theplan for your frozen embryo transfer (FET) cycle. Your IVF nurse will order and review with you themedications you will be using for the cycle. You will be sent an email from [employer] to fill out your Frozen Embryo Treatment [...] Beard RN 9:10 AM [facility] Work Phone: [phone] 283-742002-10-2025 History of Present illness Narrative* Mikhail Ascencio [...] get post trigger labs drawn tomorrow at [facility] lab. Patient to beginCabergoline 0.5mg x8days. Trigger and trigger day instructions given over the phone and sent via [employer] for reference. Patient agreeable. [facility]. 10/09/24 at 3:01 PM - Mikhail Ascencoi RN [facility] Work Phone: [phone] 701-855602-09-2025 History of Present illness Narrative* Lisbeth Spencer RN - 10/08/2024 8:30 AM EST CYCLING NOTE Cycle #: 1 Reason For Treatment: hx of endo Protocol: OCP antagonist FSH 150/HMG 75 Day of stim: 9 Patient Hx: 29yr old patient of Dr. Tre Yoo [facility] 5.317 PGT: yes Here for US [...] Arrive 60 minutes prior to procedure at [facility]. Patient verbalizes understanding of plan and location of procedure. Patient scheduled to come in to office tomorrow for labs. Dr. Holder to call patient if plan changes. Lsibeth Spencer 10/08/2024 11:31 AM ==== Reviewed labs--will plan to continue stimulation for one more day at dosage FSH 125/HMG 75, ganirelix. Patient to come back tomorrow for US Hilary Holder 10/08/24 1:16 PM documented in this [facility] Work Phone: [phone] History of Present illness Narrative* Lisbeth Spencer RN - 10/07/2024 9:00 AM EST CYCLING NOTE Cycle #: 1 Reason For Treatment: hx of endo Protocol: OCP antagonist FSH 150/HMG 75 Day of stim: 8 Patient Hx: 29yr old patient of Dr. Tre Yoo [facility] 5.317 PGT: yes Here for US and/or lab monitoring; relevant findings reviewed. Patient did not stay for discussion after monitoring, Team will contact patient later today with results and plan. Lisbeth Spencer 10/07/2024 8:53 AM [employer] ([employer]) message sent with plan. Lisbeth Spencer 10/07/24 12:05 PM [facility] Work Phone: [phone] 140-765302-06-2025 History of Present illness Narrative* Mikhail Ascencio RN - 10/05/2024 9:45 AM EST CYCLING NOTE Here for US and/or lab monitoring; relevant findings reviewed. Cycle #: 1 Reason For Treatment: hx of endo Protocol: OCP antagonist FSH 150/HMG 75 Day of stim: 6 Patient Hx: 29yr old patient of Dr. Pollard - [facility] 5.317 PGT: yes PGT-A Notes: Patient did not stay for discussion after monitoring, Team will contact patient later today with results and plan. Mikhail Ascencio 10/05/2024 9:18 AM Telephone call made to patient with MD plan. Patient to decrease FSH dose to 125 units. Patient to RTC on 10/07 for continued monitoring. Patient agreeable. [facility] transferred to [facility] for scheduling.[employer] with plan sent to patient. 10/05/24 at 1:23 PM - Mikhail Ascencio RN [facility] Work Phone: [phone] History of Present illness Narrative* Mikhail Ascencio [...] 9:11 AM documented in this [facility] Work Phone: [phone] 850-789101-29-2025 History of Present illness Narrative* Mikhail Ascencio RN - 09/27/2024 8:15 AM EST MUKESH NOTE - IVF STIM BASELINE Patient presents for baseline ultrasound and/or labs. Treatment protocol: ANT FSH 150 and menopur 75 Trigger plan: HCG vs Lupron Lead in: OCP Start date for lead in: 09/10 Last estrace/OCP date: 09/26 PGT-A/M? Yes; Req Sent: Yes; PGT-M Test Ready: No ; Company: [employer] PGT order scanned into [employer], confirmed by: on 09/27 (scanned in to [...] continued monitoring. Patient agreeable. Patient transferred to [facility] for scheduling. [employer] sent to patient with plan and tentative calendar for reference. 09/27/24 at 1:34 PM - Mikhail Ascencio RN documented in this [facility] Work Phone: [phone]) 938-418812-16-2024 History of Present illness Narrative* Hilary Holder [...] yes Risks discussed: Bleeding, infection and pain [place] protocol: Procedure explained and questions answered to [...] diagnosis: fertility testing Post op diagnosis: Same Scallop Binder: Fellow Anesthesia: None IV: None EBL: 3 [...] immediate complications documented in this [facility] Work Phone: [phone]) 400-871011-15-2024 History of Present illness Narrative* Imelda Pollard [...] the originating site) and provider (at the distantte) was utilized to provide this telehealth service [...] See scanned record. 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 Treatment to date: Fertility [...] mouth 2 times a day before meals. 5-SDVT-QHXYD ACID-OM3 ORAL Take 1 capsule by mouth [...] an insemination (IUI) this cycle. - Hieu [phone] - Kimberly [phone] Ovulation predictor kits test for LH hormone [...] Pollard 07/14/2024 1:48 PM [facility] Work Phone: [phone] History of Present illness Narrative* Sarah Espino, JUDY-LABORATORY TECHNICAL SPECIALIST - 01/25/2024 11:15 AM EDT Virtual or [...] See scanned record. 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 Treatment to date: Fertility [...] mouth 2 times a day before meals. 9-PWVI-JHFKT ACID-OM3 ORAL Take 1 capsule by mouth [...] an insemination (IUI) this cycle. - Hieu [phone] - Kimberly [phone] Ovulation predictor kits test for LH hormone [...] 11:20 AM documented in this [facility] Work Phone: [phone]) [phone] NotePap Smear Specimen AdequacyApril 2023 3:45pmComment.Satisfactory for evaluation. Endocervical and/or squamous metaplasticcells (endocervical component)are present.[facility] INTERFACED A#[id number] Valley Health System Bluffton HospitalComment on above:Satisfactory for evaluation. Endocervical and/or squamous metaplasticcells (endocervical component)are present.10-01-2023 Procedure [facility] 10-01-2023 [facility]2024 [facility] Procedure [facility] 08-27-2023 Hospital Discharge instructions Patient Education 08/27/2023 [...] what activities are safe for you. Take pbnz-tyq-odwzcgm and prescription medicines only as told by [...] 11/22/2001 Document Revised: 08/19/2018 Document Reviewed: 04/01/2018 Elsevier Patient Education 2020 [employer]. 08/27/2023 13:15:43 Nausea and Vomiting, Adult Nausea [...] water added (diluted fruit juice). Eat bland, yxsb-wn-ahpwzu foods in small amounts as you are able. These foods include bananas, applesauce, rice, lean meats, toast, and crackers. Avoid fluids that contain a lot of sugar or caffeine, such as energy drinks, sports drinks, and soda. Avoid alcohol. Avoid spicy or fatty foods. General instructions Take nxfj-pag-bwijiwz and prescription medicines only as told by your health care provider. Drink enough fluid to keep your urine pale yellow. Wash your hands often using soap and water. If soap and water are not available, use hand roustabout crew. Make sure that all people in your [...] eating and drinking to prevent dehydration. Take xcqj-jxv-nmzwyro and prescription medicines only as told by [...] 08/16/2006 Document Revised: 12/08/2019 Document Reviewed: 01/24/2019 [employer] Patient Education 2020 [employer] Inc. 08/27/2023 13:15:03 Endometrial Ablation, Care After Endometrial [...] are safe for you. General instructions Take xrng-hxv-tewgpnk and prescription medicines only as told by [...] 06/28/2018 Document Revised: 12/07/2019 Document Reviewed: 06/28/2018 iPeen Patient Education 2020 [employer]. 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 You may take qtub-dkd-uhpefvmcqtl medication if you no longer need your prescribed pain medication. Kolp-kgy-bxytinx pain medications are Tylenol (acetaminophen) or Advil (ibuprofen). Do not take Tylenol if you are still taking [place] or Percocet. They are the same type [...] their own. If incision is closed with osraya, the soraya will need to be removed. [...] Care 08/02/2023 10:09:45 With:ERNA TROTTER MD Address: [address] [place] [address] [phone] When:Within 2 Week(s) [facility] 12-29-2023 Note Discharge Instructions Thank you for allowing [facility] to assist you with your healthcare needs. The following is importantdischarge information regarding your hospital visit. Your Care Team CATRACHITO MERCEDES MD Your Diagnosis Crohn's disease Family history of endometriosis Female infertility Postoperative pain What to do next Follow Up Appointments Follow Up with ERNA TROTTER MD When In 2 weeks Where: [address] [place] [address]- [phone] The Following Activity and Diet Have Been [...] Duration: 14 Days Refills: 1 Pickup at [id number] New acetaminophen-oxyCODONE (Percocet 5 mg-325 mg oral tablet) 1 tab(s) by mouth Every 4 hours as needed for for pain Postoperative pain Duration: 7 Days Pickup at [id number] New ibuprofen (ibuprofen 800 mg oral tablet) 1 tab(s) by mouth Every 8 hours Duration: 14 Days Pickup at [facility] #[id number] New ondansetron (Zofran 4 mg oral tablet) 1 tab(s) by mouth Every 6 hours as needed for Nausea/Vomiting Duration: 5 Days Pickup at [facility] #[id number] Unchanged cholecalciferol (Vitamin D3) 25 Microgram by [...] Milliliter Subcutaneous Every 8 weeks Pharmacy Information [facility] #[id number]: [address] [place], [place] [phone] Please take this list to your next [...] what activities are safe for you. Take diur-zaq-rebekdv and prescription medicines only as told by [...] 11/22/2001 Document Revised: 08/19/2018 Document Reviewed: 04/01/2018 iPeen Patient Education 2020 [employer]. Nausea and Vomiting, Adult Nausea is the [...] water added (diluted fruit juice). Eat bland, zgsr-ok-leiaqu foods in small amounts as you are able. These foods include bananas, applesauce, rice, lean meats, toast, and crackers. Avoid fluids that contain a lot of sugar or caffeine, such as energy drinks, sports drinks, and soda. Avoid alcohol. Avoid spicy or fatty foods. General instructions Take rpek-rnf-kjgqlkj and prescription medicines only as told by your health care provider. Drink enough fluid to keep your urine pale yellow. Wash your hands often using soap and water. If soap and water are not available, use hand roustabout crew. Make sure that all people in your [...] eating and drinking to prevent dehydration. Take rsqj-fex-pqwfwqu and prescription medicines only as told by [...] 08/16/2006 Document Revised: 12/08/2019 Document Reviewed: 01/24/2019 ElsePagPop Patient Education 2020 [employer] Inc. Endometrial Ablation, Care After This sheet [...] are safe for you. General instructions Take lnie-qxx-vwnofau and prescription medicines only as told by [...] 06/28/2018 Document Revised: 12/07/2019 Document Reviewed: 06/28/2018 ElsePagPop Patient Education 2020 [employer] Inc. What to Do After Your Gynecology [...] as your pain allows. You may take hzyn-muu-rmwmmtforts medication if you no longer need your prescribed pain medication. Nvkr-rtj-nnjccem pain medications are Tylenol (acetaminophen) or Advil (ibuprofen). Do not take Tylenol if you are still taking [place] or Percocet. They are the same type [...] to receive it can visit one of [facility] vaccine clinics. There are many vaccine clinic locations within the [facility]. For locations and available times, please visit https://gettheshot.coronavirus.[place].gov/. It is important to note that some COVID mobile vaccine clinics are held outdoors and may be canceled in rainy or stormy conditions. To learn more about pediatric vaccinations (ages 5-11), we invite you to visit the [facility] webpage. https://www.NetSanitys.org/pages/7563-Ainwi-Jrgtabidtyp-Dhukxqoxhl-Kkdop-Qmg stions.htmlTo learn more about the COVID-19 vaccine, we invite you to visit the CDC website for a list of frequently asked questions.https://www.cdc.gov/coronavirus/2019-ncov/vaccines/faq.html [facility] Patient Portal Access Instructions: Stay connected with your healthcare team and access your personal medical information anytime with the [facility] Patient Portal. Please follow the directions below to create your [facility] account: 1.Access the email account you provided upon registration to the hospital/physician office.2.Look for an invitation email from [facility].3.Open the email and access the invitation link: AcceptInvitation to [facility].4.Fill in the required barnes to create your account. To access your account, visit [employer]oLum[employer] TechnologyOneChart. Click the blue button labeled Access Patient Portal and then log in with the username and password that you created in the steps above. You will be able to view your test results, lab results, a summary of your visits, upcoming appointments and more. There is also a convenient messaging option where you can send secure messages to your p rovider. In addition, you will have the ability to download any documents or summaries to your computer and/or send the information securely to a physician. Remember that your healthcare information is confidential, so carefully consider who you will allowto register on the [facility] AircuityChart Patient Portal for access to your information. You can also access the [facility] on the [facility] Anywhere nancie. Simply click on Patient Portal and then log into your account. If you would like to receive a full copy of your medical records, please contact the [facility] Medical Records Department by calling [phone], Wednesday through Wednesday between 8 a.m. and [...] Call your local pharmacy or go to [email or web address] to find one close to you.3.Make use of household items: Use cat litter or old coffee grounds to dispose medications if other options arenot available. Mix your drugs with these household products, seal them in an airtight container andthrow it into the garbage. 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 I have received a written copy of the plan/instructions. If I have questions, I am aware that I should contact my doctor. Patient/Code Enforcement Officer Signature: Date/Time: Relationship to Patient: Witness Name/Signature: Date/Time: [facility]12-29-2023 Note Date of Service 08/27/23 [...] ERNA TROTTER MD on 08/27/2023 11:50 AM [facility]12-29-2023 Anesthesiology Consult note Patient: MARIXA BRAGA Age: 28 years Sex: Female : 1995 Associated Diagnoses: None Author: CHELLY BUSTAMANTE CODE ENFORCEMENT OFFICER-JUNIOR AUTOMATION ENGINEER Preoperative Information Time of last food or [...] list: Medical Crohn disease / SNOMED CT 05351074 / Confirmed Wellness examination / SNOMED CT 267183511 / Confirmed Weight gain / SNOMED CT 09603078 / Confirmed, Active Problems (4) Crohn disease GERD (gastroesophageal reflux disease) Weight gain Wellness examination Histories Past Medical History: Resolved ([id number]): Onset on 07/18/2018 at 23 years. Resolved in 2019 at 23 years. ([id number]): Onset on 07/19/2017 at 22 years. Resolved in 2018 at 22 years. Family History: Anxiety Sister Hypertension Father Heart disease Father Alcoholism Father Depression Father Procedure history: Colonoscopy ([id number]). 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 Small Products: Self Current Home Treatments None Special Services [...] Resp Rate 20 br/min (AUG 27 10:13) QNM540 mmHg (AUG 27 10:13) DBP81 mmHg (AUG 27 10:13) Measurements from flowsheet : Measurements 08/27/2023 10:13 EST Height 160 cm Admission Weight 75 kg [place] Body Weight 52.38 kg Admission Body Mass [...] Height 160 cm Admission Weight 75 kg [place] Body Weight 52.38 kg Admission Body Mass [...] #1 We May Share PHI Romel Amos [phone] Designated Person #1 Relationship Spouse Privacy Restrictions [...] after midnight, No makeup, No jewelry, Responsible Democrat, Aware of surgery location, Pre-op education done, 1 bottle CHG wash with instructions given, Instructed to take ordered medications, SSI prevention handout given SN - Preprocedure Comments Spoke with patient, Verbalizes/Nonverbally indicates understanding, Other: Omeprazole Barriers to Learning None evident Teaching Method Explanation, Printed materials Preferred Spoken Language Portuguese Preferred Written Language Portuguese Teaching Evaluation No further teaching needed Safety [...] QC PRGUP Positive . Assessment and Plan [place] Society of Anesthesiologists (ASA) physical status classification: Class II. Anesthetic Preoperative Plan Premedication: intravenous. Anesthetic technique: General. Induction: intravenously. Maintenance airway: Oral endotracheal tube. Postoperative pain management: Per surgeon. Risks discussed: nausea, vomiting, sore throat. Informed consent: signed by patient. Digitally Signed by CHELLY BUSTAMANTE on 08/27/2023 11:44 AM [facility]08-11-2023 Telephone encounter Note* Telephone Encounter - Cher Calderon - 04/09/2023 11:53 AM EDT Name of caller: MARIXA Relation to patient: patient Contact phone number: [phone] Appointment scheduled with: LANDY BLAIR Appointment date & time: 05/04/23 @ 7:50 AM Reason for visit (are you having any symptoms) : Low blood pressure, unexpected weight gain Transportation issues/ concerns: NO Special accommodations? ( wheel chair, etc) : NO Current medications: STELARA Any refills need: NO Any chronic conditions the provider should be aware of: CHRON'S, 14 WEEKS [facility] [id number] Telephone encounter Note* Telephone Encounter - Cher Calderon - 04/09/2023 11:53 AM EDT In order to comply with the No Surprises Act, [facility] is providing you with the following attachments. Any Good Cathy Estimate that may be provided are based on the services you are scheduled toreceive. During your visit, there may be additional services required in order for the provider to complete your plan of care. DECLINED [facility] [id number] Miscellaneous Notes* Telephone Encounter - Cher Calderon - 04/09/2023 11:53 AM EDT In order to comply with the No Surprises Act, [facility] is providing you with the following attachments. Any Good Cathy Estimate that may be provided are based on the services you are scheduled toreceive. During your visit, there may be additional services required in order for the provider to complete your plan of care. DECLINED documented in this encounterSMemorial [id number] Miscellaneous Notes* Telephone Encounter - Cher Calderon - 04/09/2023 11:53 AM EDT Name of caller: MARIXA Relation to patient: patient Contact phone number: [phone] Appointment scheduled with: LANDY BLAIR Appointment date & time: 05/04/23 @ 7:50 AM Reason for visit (are you having any symptoms) : Low blood pressure, unexpected weight gain Transportation issues/ concerns: NO Special accommodations? ( wheel chair, etc) : NO Current medications: STELARA Any refills need: NO Any chronic conditions the provider should be aware of: CHRON'S, 14 WEEKS documented in this encounterSMemorial [id number] Telephone encounter Note* Telephone Encounter - Dimaskleber Calderon - 04/05/2023 3:44 PM EDT PATIENT SUBMITTED ONLINE APPOINTMENT REQUEST FOR A PCP APPOINTMENT. SPOKE TO PATIENT AND GOT SOME INFORMATION BUT SHE HAD TO GET OFF THE LINE AND STATES SHE WILL C/B. OK TO SCHEDULE WITH ANY PROVIDERWHEN PATIENT CALLS BACK. FirstName : Marixa LastName : OMI Pronouns : PronounsOther : Email : [email or web address] Phone : [phone] Birthdate : 1995 12:00:00 AM BestTimeToCallBack : Afternoon AppointmentDate : Kirk PhysicianRequested : Symptoms : Weight gain, low blood pressure OptIn : False [facility] [id number] Miscellaneous Notes* Telephone Encounter - Cher Calderon - 04/05/2023 3:44 PM EDT PATIENT SUBMITTED ONLINE APPOINTMENT REQUEST FOR A PCP APPOINTMENT. SPOKE TO PATIENT AND GOT SOME INFORMATION BUT SHE HAD TO GET OFF THE LINE AND STATES SHE WILL C/B. OK TO SCHEDULE WITH ANY PROVIDERWHEN PATIENT CALLS BACK. FirstName : Marixa LastName : OMI Pronouns : PronounsOther : Email : [email or web address] Phone : [phone] Birthdate : 1995 12:00:00 AM BestTimeToCallBack : Afternoon AppointmentDate : Kirk PhysicianRequested : Symptoms : Weight gain, low blood pressure OptIn : False documented in this encounterSMemorial HospitalEvaluation + Plan note No data available for this section [facility] Evaluation + Plan note Future Appointments Appointment Date:08/16/2023 10:45:00 AM Scheduled Provider:CATRACHITO MERCEDES MD Location:[facility] Appointment Type:PC OV Follow Up [facility] evaluation note* Diagnosis Onset Date Resolution Status Ulcerative colitis acute Ulcerative colitis [facility] Work Phone: evaluation note* Diagnosis Onset Date Resolution Status Ulcerative colitis [facility] Work Phone: evaluation note* Diagnosis Onset Date Resolution Status Chronic GERD chronic Ulcerative colitis [facility] Work Phone: evaluation note* Diagnosis Onset Date Resolution Status Endometriosis acute Infertility [facility] Work Phone: evaluation note* Diagnosis Female infertility- Primary Female infertility of unspecified origin Endometriosis Endometriosis, site unspecified documented in this encounter [facility] Work Phone: Evaluation note* Diagnosis Fertility testing- Primary Encounter for preprocedural laboratory examination Female fertility problem [N97.9] documented in this encounter [facility] Work Phone: Evaluation note* Diagnosis Endometritis- Primary Unspecified inflammatory disease of uterus Fertility testing documented in this encounter [facility] Work Phone: Evaluation note* Diagnosis Endometritis- Primary Unspecified inflammatory disease of uterus Fertility testing documented in this encounter [facility] Work Phone: Evaluation note* Diagnosis Female infertility Female infertility of unspecified origin documented in this encounter [facility] Work Phone: Evaluation note* Diagnosis Female infertility Female infertility of unspecified origin documented in this encounter [facility] Work Phone: [phone] note* Diagnosis Female infertility Female infertility of unspecified origin documented in this encounter [facility] Work Phone: [phone] note* Diagnosis Encounter for assisted reproductive fertility cycle Encounter for assisted reproductive fertility procedure cycle documented in this encounter [facility] Work Phone: [phone] note* Diagnosis Encounter for assisted reproductive fertility cycle Encounter for assisted reproductive fertility procedure cycle documented in this encounter [facility] Work Phone: [phone] note* Diagnosis Female infertility Female infertility of unspecified origin documented in this encounter [facility] Work Phone: [phone] note* Diagnosis Female infertility Female infertility of unspecified origin documented in this encounter [facility] Work Phone: [phone] note* Diagnosis Fertility testing- Primary Female infertility Female infertility of unspecified origin Screening for diabetes mellitus Encounter for Rh blood typing Encounter for blood typing Screening for STDs (sexually transmitted diseases) Screening examination for venereal disease Screening for thyroid disorder documented in this encounter [facility] Work Phone: [phone] note* Diagnosis Encounter for assisted reproductive fertility cycle Encounter for assisted reproductive fertility procedure cycle documented in this encounter [facility] Work Phone: [phone] note* Diagnosis Encounter for assisted reproductive fertility cycle Encounter for assisted reproductive fertility procedure cycle documented in this encounter [facility] Work Phone: [phone] note* Diagnosis Healthcare maintenance- Primary Hypovitaminosis D Unspecified vitamin D deficiency Polycystic ovarian disease Polycystic ovaries Crohn's disease of colon without complication (Multi) documented in this encounter [facility] Work Phone: [phone] note* Diagnosis Healthcare maintenance- Primary Hypovitaminosis D Unspecified vitamin D deficiency Polycystic ovarian disease Polycystic ovaries Crohn's disease of colon without complication (Multi) Female infertility Female infertility of unspecified origin documented in this encounter [facility] Work Phone: [phone] note* Diagnosis Healthcare maintenance- Primary Hypovitaminosis D Unspecified vitamin D deficiency Polycystic ovarian disease Polycystic ovaries Crohn's disease of colon without complication (Multi) Plantar wart- Primary Dermatologic problem documented in this encounter [facility] Work Phone: Evaluation note* Diagnosis Healthcare maintenance- Primary Hypovitaminosis D Unspecified vitamin D deficiency Polycystic ovarian disease Polycystic ovaries Crohn's disease of colon without complication (Multi) Encounter for assisted reproductive fertility cycle Encounter for assisted reproductive fertility procedure cycle documented in this encounter [facility] Work Phone: Evaluation note* Diagnosis Healthcare maintenance- Primary Hypovitaminosis D Unspecified vitamin D deficiency Polycystic ovarian disease Polycystic ovaries Crohn's disease of colon without complication (Multi) Encounter to determine viability of , single or unspecified fetus- Primary documented in this encounter [facility] Work Phone: Evaluation note* Diagnosis Healthcare maintenance- Primary Hypovitaminosis D Unspecified vitamin D deficiency Polycystic ovarian disease Polycystic ovaries Crohn's disease of colon without complication (Multi) Vaginal discharge- Primary Leukorrhea, not specified as infective documented in this encounter [facility] Work Phone: Evaluation note* Diagnosis Healthcare maintenance- Primary Hypovitaminosis D Unspecified vitamin D deficiency Polycystic ovarian disease Polycystic ovaries Crohn's disease of colon without complication (Multi) Encounter to determine viability of , single or unspecified fetus- Primary documented in this encounter [facility] Work Phone: History and physical note Author Domo Weaver [facility] October 01, 2023 11:37am Note Date/Time October 01, 2023 1 1:37am [facility] System Medical Records Department [address] [place] [address] History & Physical Exam 10/01/23 1137 MR#: [id number] Acct: [id number] Name: MARIXA BRAGA Rep #:[id number] : 1995 28 From: Domo Weaver DO PCP: CATRACHITO MERCEDES Status:[facility] Location: [place] [address] History and Physical Date of Admission: 10/01/23 [...] well developed Nutritional Appearance: average body habitus [facility] Head: normal to inspection Eyes General: appearance normal, both eyes and all related structures Resp Effort & Inspection: normal respiratory effort GI Inspection: normal to inspection Skin General: no rashes or lesions noted Quality Reporting Tobacco Screening ([facility] 138) Smoking Status: Never smoker Assessment and [...] some mucousy stools when she was in [place] but thatonly lasted for a couple days [...] CC: CATRACHITO MERCEDES; Domo Weaver DO~ Signed [facility] Work Phone: History of Present illness Narrative* Sarah Billingsley Srinivas, CODE ENFORCEMENT OFFICER-LABORATORY TECHNICAL SPECIALIST - 01/11/2025 2:00 PM EDT Visit Type: [...] Espino 01/11/2025 1:31 PM [facility] Work Phone: Hospital Discharge instructions No data available for this section [facility] Progress note No data available for this section [facility] Progress note Author Iesha Lo [facility] Note Date/Time February 06, 2025 8:50 am [facility] [address] [place] [address], [address] [place] [address] OFFICE VISIT Date of Service: 02/06/25 MR#: [id number] Acct: [id number] Name: MARIXA AMOS Rep #: [id number] : 1995 Provider: STEFANIE Lo Age/Sex: 29/F Location: [facility] Status: Signed Intake Vital Signs 07/12/24 08:32 02/02/25 15:02/06/25 08:17 Height 5 ft 3 in 5 ft 3 in 5 ft 3 in Weight: 185 lb 8 oz BMI 32.8 BP 118/70 Intake Visit Reasons: *EST* NOB IVF 12/26, GIL 09/13/25 Director Underwriter Sales Required: No Is patient in pain?: No Allergies No Known Allergies Allergy (Verified 02/06/25 08:17) Medications ?Medication ?Instructions ?Recorded ?Confirmed ?Type ustekinumab 90 mg/mL subcutaneous 90 mg subcut Q8W #1 mL 07/07/24 02/06/25 Rx syringe (Stelara) aspirin 81 mg tablet,delayed 81 mg PO QDAY 01/01/25 History release (Adult Aspirin Regimen) estradiol 2 mg tablet (Estrace) 6 mg PO QDAY 01/01/25 02/06/25 History prednisone 10 mg tablet 10 mg PO QDAY 01/01/2502/06 History metformin 1,000 mg tablet 1,500 mg PO QDAY 01/26/25 History multivit-min no.71-iron fum 28 cap PO 01/26/25 5 History mg-folate no.1 1 mg-dha 300 mg capsule (PNV-[place]) prednisone 10 mg tablet 10 mg PO QDAY 01/26/2502/06 History progesterone oil 75 mg IM QHS 01/26/25 History Last Menstrual Period: 10/19/24 Zika: Zika virus screening: Negative : Yes PFSH PFSH Medical History Obesity (BMI 30.0-34.9) Other obesity Rectal bleeding Endometriosis Low iron Anemia Latent tuberculosis Ulcerative colitis Surgical History History of esophagogastroduodenoscopy (EGD) History of laparoscopy History of colonoscopy Family History Grandmother Diabetes Maternal Grandfather Diabetes Paternal Father Hypertension Hyperlipidemia CAD (coronary artery disease) CABG 2 years ago Social History adopted: No household members: spouse housing: house current occupational status: employed current occupation: [employer] current occupational exposures/hazards: No pets and animals: Yes pets and animals: dog(s) history of recent travel: No sexually active: Yes Smoking Status: Never smoker alcohol intake: never substance use type: does not use well-balanced diet: daily or most days caffeine: No eating out: rarely or never during the past year weight has: remained stable what type of physical activity do you participate in: walking frequency: 3-4 times per week duration: 45-60 minutes/day cathy/mormon: None seatbelt use: always do you feel safe at home: Yes additional social history: -Romel- Cane Feeder History 2 Elective abortions Hx Para 0 Spontaneous abortions 1 Hx # Term Pregnancies Ectopic pregnancies Hx # Pregnancies Multiple births # of living children Past Pregnancies Del. Date Name GA/Weeks Outcome Route Bth Weight Infant Gen Labor Lgth Anesthesia Del Locatn Provider FOB Unknown 07/2023-Julio 20 still Male Delivery Date: Last Updated by: Jacquie Durán demise, possible subchorionic hematoma HPI *EST* NOB IVF 12/26, GIL 09/13/25 Details: MARIXA AMOS is a 29 year old who presents for New OB visit. OB Visit GIL Calculator Estimated Delivery Date Method Current WG Current Estimate 09/13/25 Manual 8w 5d Other Estimates 09/11/25 Ultrasound #1 9w 0d Estimated Due Date: 09/13/25 Expected Delivery Route/Plan Labor Preferences- CB/BF classes: [] labor support person: [] labor intervention preferences: [] pain management options preferred: [] cut cord/dad catch: [] : [] PP control planned: [] discussed possible routes of delivery and associated risks: [] special requests: [] Specific Issue/Plans Covid status: [] Flu vaccine: [] Tdap vaccine: [] Rhogam: [] LARC form signed: [] Problem list reviewed and updated with the most current plan of care details and appropriate orders placed. Relevant counseling for the gestational age provided. Continue routine care and follow up unless otherwise noted in visit notes/problem list details Initial Weight: 185 lb Date -?-?-?-?-?-?-?-?-?-?-?-?- EGA Weight BP Urine Prot -?-?-?-?-?-?-?-?-?-?-?-?- Glucose FHR FuHt Pres Dilation -?-?-?-?-?-?-?-?-?-?-?-?- Effaced St Visit Note 02/06/25 -?-?-?-?-?-?-?-?-?-?-?-?- 8w 5d 185 lb 8 oz (+8 oz) 118/70 -?-?-?-?-?-?-?-?-?-?-?-?- 185 -?-?-?-?-?-?-?-?-?-?-?-?- KW- CRL cons wit h dates. Declines NIPT. IVF . had carrier screening done with [facility] Menstrual History Last Menstrual Period: 10/19/24 Reported LMP: definite Normal amount/duration: No (heavier after egg retrieval,IVF ) Frequency in days: irregular, 30-42 On hormonal BC at conception: No hCG+: 01/05/25 Antepartum Record Genetic Screening: Congenital Heart Defect: Other, Neural Tube Defect: Other, Hemoglobinopathy Or Carrier: Other, Cystic Fibrosis: Other, Chromosome Abnormality: Other, Dat-Sachs: Other, Hemophilia: Other, Intellectual Disability/Autism: Partner (father dyslexic), Recurrent Loss/Stillbirth: Other, Other Structural Defect: Other, Other Genetic Disease: Other and Maternal Metabolic Disorder: Other Infection History: Live with someone with TB or Exposed to TB: Yes (2 yr ago had positive test, treated and now does not show up with testing), Patient or Partner has history of Genital Herpes: No, Rash or Viral illness since last mentrual period: No, Prior GBS-Infected child: No, History of STD: No, HIV Infection: No, History of Hepatitis: No, Recent travel outside of [place]: No, Concern for hepatitis exposure: No, Varicella immune: Yes (immune- vaccinated) and Covid Vaccinated: Yes (Pfizer, No Boosters) Medical History Medical History: Positive: Auto-immune disorder (PCOS, Crohn's, ulcerative arthritis), History of blood transfusions (1 blood transfusion 2017, anemia), Operations/hospitalizations (See PFSH), Infertility (2 yrs, IVF to conceive), Relevant family history (Father CABG, HTN, Hyperlipidemia) and Other (chronic GERD, Endometriosis) and Negative: Diabetes, Hypertension, Heart disease, Kidney disease/UTI, Neurologic/epilepsy, Psychiatric, Depression/ depression, Hepatitis/liver disease, Varicosities/phlebitis, Thyroid dysfunction, Trauma/domestic violence, D (Rh) Sensitized (B+), Pulmonary (e.g.,TB,Asthma), Seasonal allergies, Drug/latex allergies/reactions, Breast, Bench Inspector surgery, Anesthetic complications, History of abnormal pap, Uterine anomaly/samson and Anti-retroviral treatment ACOG First Trimester First Trimester: Desire for , Alcohol, Tobacco Cessation, Illicit/Recreational Drug/Substance Use, Intimate Partner Violence, Barriers to care, Unstable Housing, Communication Barriers, Environmental/Work Hazards, Anticipated Course of Care, Toxoplasmosis Precations, Use of Any medications, Sexual activity, Exercise, Dental Care, Sauna/Hot tub use, Seat Belt use, Childbirth classes/Hospital facilities, , Travel, Indications for Ultrasound and Screening for Aneuploidy Second Trimester Second Trimester: Signs and Symptoms of Labor, Selecting a care provider, Reproductive Life Planning & Contreception, Care Planning, Depression/Anxiety and Intimate Partner Violence; Discussed Tobacco Cessation Third Trimester Third Trimester: Pain Management Plans, Labor support person(s), Immediate Larc, Signs and Symptoms of Preeclampsia, Feeding Yes , Education and Family Medical Leave or Disability Forms ROS Const Reports system reviewed and no additional complaints, except as documented, Denies fatigue, Denies headache(s) and Denies lethargy ENT Denies headache(s) Card Reports system reviewed and no additional complaints, except as documented Resp Reports system reviewed and no additional complaints, except as documented GI Reports system reviewed and no additional complaints, except as documented, Denies abdominal pain, Denies constipation, Denies cramping, Denies diarrhea and Denies dyspepsia Reports system reviewed and no additional complaints, except as documented, Denies abnormal vaginal bleeding, Denies difficulty voiding, Denies dyspareunia and Denies dysuria Musc Reports system reviewed and no additional complaints, except as documented Skin/Breast Reports system reviewed and no additional complaints, except as documented Neuro Yes system reviewed and no additional complaints, except as documented and No headache(s) Psych Reports system reviewed and no additional complaints, except as documented, Denies anhedonia and Denies anxiety Endo Reports system reviewed and no additional complaints, except as documented and Denies fatigue Exam Const General: cooperative, healthy appearing and comfortable Neck Neck: normal visual inspection and full ROM Chest Chest palpation & inspection: normal inspection of the chest Breast inspection: normal inspection of the breasts and normal inspection of the axillae Breast palpation: normal palpation of the breasts and normal palpation of the axillae Resp Effort & Inspection: normal respiratory effort and able to speak in complete sentences GI Inspection: normal to inspection Palpation: soft External Female Exam: normal external appearance and normal appearance of the urethra Urethra: normal appearance of the urethra Skin General: no rashes or lesions noted Neuro General: patient alert, patient awake and patient oriented x3 Extrem General: normal to inspection and full ROM Psych Appearance: grossly normal and well kempt Mental Status: mental status grossly normal Mood: congruent mood Affect: normal affect Speech and Movement: speech and movement normal Thought Process: normal Thought Content: normal Coding Level of Care Code OB Routine Diagnoses resulting from in vitro fertilization, antepartum O09.819 Trimester: unspecified trimester History of maternal blood transfusion, currently O09.299 History of anemia Z86.2 Crohn's disease K50.90 Hx of TB skin testing Z92.89 Subchorionic hematoma in first trimester O41.8X10; O46.8X1 Prior with demise O09.299 Supervision of high-risk O09.90 8 weeks gestation of Z3A.08 Weeks of gestation: 8 weeks Obesity affecting O99.210 Rectal bleeding K62.5 BMI 32.0-32.9,adult Z68.32 PCOS (polycystic ovarian syndrome) E28.2 Infertility Endometriosis N80.9 Chronic GERD K21.9 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 Digestive disease complication type: without complication Ulcerative colitis location: ulcerative rectosigmoiditis Assessment and Plan Assessment and Plan (1) resulting from in vitro fertilization: Status: Acute Qualifiers: Trimester: unspecified trimester Qualified Code(s): O09.819 - Supervision of resulting from assisted reproductive technology, unspecified trimester Comment: growth US and NSTs at 36 week (2) History of maternal blood transfusion, currently : Status: Acute Comment: 2018 due to anemia (3) History of anemia: Status: Acute (4) Crohn's disease: Status: Acute Comment: Pt reports dx, pt of (5) Hx of TB skin testing: Status: Acute Comment: treated by 2022, negative testing since. (6) Subchorionic hematoma in first trimester: Status: Acute Comment: seen on US in ER 01/22/25 and with fertility specialist (7) Prior with demise: Status: Acute Comment: 20 weeks, subchorionic hematoma (8) Supervision of high-risk : Status: Acute Comment: , GIL 09/13/25, PC Julio (dec-20 week demise) Romel (9) : Status: Acute Qualifiers: Weeks of gestation: 8 weeks Qualified Code(s): Z3A.08 - 8 weeks gestation of Comment: declined NIPT & Carrier testing (10) Obesity affecting : Status: Acute Comment: HGBA1c (11) Rectal bleeding: Status: Acute (12) BMI 32.0-32.9,adult: Status: Acute (13) PCOS (polycystic ovarian syndrome): Status: Acute (14) Infertility: Status: Acute Comment: SA-nl, normal pelvic US and TSH Nl HSG 07/2023 (15) Endometriosis: Status: Acute Comment: STAGE 2 Tejinder 07/2023 ROR (16) Chronic GERD: Status: Chronic (17) Ulcerative colitis: Status: Chronic Qualifiers: Digestive disease complication type: without complication Ulcerative colitis location: ulcerative rectosigmoiditis Qualified Code(s): K51.30 - 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 Comments Comments: Patient oriented to practice and discussed care expectations and screenings. ACOG book offered to patient. Discussed routine and specially indicated labs if needed- patient consents to testing. See problem list details for plan information. Optional screening including maternal carrier screenings, neural tube defect screening, genetic screening options including quad screen, nuchal translucency, sequential screening, and NIPT screening offered to patient and patient chose: declines 02/06/25 0850 <Electronically signed by Iesha das CNM> Date _ Iesha Lo CNM Cosigner Signature: Date (if applicable) CC: ~ [facility] Work Phone: Progress note Author Marcia Dallas [facility] Note Date/Time February 23, 2025 11:4 3am [facility] [address] [place] [address], [address] [place] [address] OFFICE VISIT Date of Service: 02/23/25 MR#: [id number] Acct: [id number] Name: MARIXA AMOS Rep #: [id number] : 1995 Provider: Dr. Amanda Yen, Age/Sex: 29/F [facility] [facility] Status: Signed Intake Vital Signs 02/06/25 08:17 02/23/25 11:00 02/23/25 11:01 Height 5 ft 3 in 5 ft 3 in 5 ft 3 in Weight: 186 lb 2 oz BMI 32.9 BP 135/86 H Intake Visit Reasons: Heart beat Check *IVF Director Underwriter Sales Required: No Is patient in pain?: No Allergies No Known Allergies Allergy (Verified 02/23/25 11:00) Medications ?Medication ?Instructions ?Recorded ?Confirmed ?Type ustekinumab 90 mg/mL subcutaneous 90 mg subcut Q8W #1 mL 07/07/24 02/23/25 Rx syringe (Stelara) aspirin 81 mg tablet,delayed 81 mg PO QDAY 01/01/25 History release (Adult Aspirin Regimen) prednisone 10 mg tablet 10 mg PO QDAY 01/01/2502/23 History metformin 1,000 mg tablet 1,500 mg PO QDAY 01/26/25 History multivit-min no.71-iron fum 28 cap PO 01/26/25 5 History mg-folate no.1 1 mg-dha 300 mg capsule (PNV-[place]) prednisone 10 mg tablet 10 mg PO QDAY 01/26/2502/23 History ondansetron 4 mg disintegrating 4 mg PO Q6H PRN nausea and 02/23/25 02/23/25 Rx tablet vomiting #30 tabs Last Menstrual Period: 10/19/24 Zika: Zika virus screening: Negative : No PFSH PFSH Medical History Obesity (BMI 30.0-34.9) Other obesity Rectal bleeding Endometriosis Low iron Anemia Latent tuberculosis Ulcerative colitis Surgical History History of esophagogastroduodenoscopy (EGD) History of laparoscopy History of colonoscopy Family History Grandmother Diabetes Maternal Grandfather Diabetes Paternal Father Hypertension Hyperlipidemia CAD (coronary artery disease) CABG 2 years ago Social History adopted: No household members: spouse housing: house current occupational status: employed current occupation: [employer] current occupational exposures/hazards: No pets and animals: Yes pets and animals: dog(s) history of recent travel: No sexually active: Yes Smoking Status: Never smoker alcohol intake: never substance use type: does not use well-balanced diet: daily or most days caffeine: No eating out: rarely or never during the past year weight has: remained stable what type of physical activity do you participate in: walking frequency: 3-4 times per week duration: 45-60 minutes/day cathy/mormon: None seatbelt use: always do you feel safe at home: Yes additional social history: -Romel- Cane Feeder History 2 Elective abortions Hx Para 0 Spontaneous abortions 1 Hx # Term Pregnancies Ectopic pregnancies Hx # Pregnancies Multiple births # of living children Past Pregnancies Del. Date Name GA/Weeks Outcome Route Bth Weight Gen Labor Lgth Anesthesia Del [facility] Provider FOB Unknown 07/2023-Julio 20 still Male Delivery Date: Last Updated by: Jacquie Durán demise, possible subchorionic hematoma HPI Heart beat Check *IVF Details: MARIXA AMOS is a 29 year old who presents for routine OB visit. OB Visit GIL Calculator Estimated Delivery Date Method Current WG Current Estimate 09/13/25 Manual 11w 1d Other Estimates 09/11/25 Ultrasound #1 11w 3d Expected Delivery Route/Plan Labor Preferences- CB/BF classes: [] labor support person: [] labor intervention preferences: [] pain management options preferred: [] cut cord/dad catch: [] : [] PP control planned: [] discussed possible routes of delivery and associated risks: [] special requests: [] Specific Issue/Plans Covid status: [] Flu vaccine: [] Tdap vaccine: [] Rhogam: [] LARC form signed: [] Problem list reviewed and updated with the most current plan of care details and appropriate orders placed. Relevant counseling for the gestational age provided. Continue routine care and follow up unless otherwise noted in visit notes/problem list details Initial Weight: 185 lb Date -?-?-?-?-?-?-?-?-?-?-?-?- EGA Weight BP Urine Prot -?-?-?-?-?-?-?-?-?-?-?-?- Glucose FHR FuHt Pres Dilation -?-?-?-?-?-?-?-?-?-?-?-?- Effaced St Visit Note 02/06/25 -?-?-?-?-?-?-?-?-?-?-?-?- 8w 5d 185 lb 8 oz (+8 oz) 118/70 -?-?-?-?-?-?-?-?-?-?-?-?- 185 -?-?-?-?-?-?-?-?-?-?-?-?- KW- CRL cons wit h dates. Declines NIPT. IVF . had carrier screening done with [facility] 02/23/25 -?-?-?-?-?-?-?-?-?-?-?-?- 11w 1d 186 lb 2 oz (+1 lb 2 oz) 135/86 -?-?-?-?-?-?-?-?-?-?-?-?- 165 -?-?-?-?-?-?-?-?-?-?-?-?- JV- heart beat rosa naikk today for her reassurance. she is getting more nauseated but also just stopped her hormones. Also going to stop metformin. coco ordered. ACOG First Trimester First Trimester: Desire for , Alcohol, Tobacco Cessation, Illicit/Recreational Drug/Substance Use, Intimate Partner Violence, Barriers to care, Unstable Housing, Communication Barriers, Environmental/Work Hazards, Anticipated Course of Care, Toxoplasmosis Precations, Use of Any medications, Sexual activity, Exercise, Dental Care, Sauna/Hot tub use, Seat Belt use, Childbirth classes/Hospital facilities, Travel, Indications for Ultrasound and Screening for Aneuploidy; Discussed Second Trimester Second Trimester: Signs and Symptoms of Labor, Selecting a care provider, Reproductive Life Planning & Contreception, Care Planning, Depression/Anxiety and Intimate Partner Violence; Discussed Tobacco Cessation Third Trimester Third Trimester: Pain Management Plans, Labor support person(s), Immediate Larc, Signs and Symptoms of Preeclampsia, Infant Feeding No , [place] Education and Family Medical Leave or Disability Forms Coding Level of Care Code OB Routine Diagnoses resulting from in vitro fertilization, antepartum O09.819 Trimester: unspecified trimester History of maternal blood transfusion, currently O09.299 History of anemia Z86.2 Crohn's disease K50.90 Hx of TB skin testing Z92.89 Subchorionic hematoma in first trimester O41.8X10; O46.8X1 Prior with demise O09.299 Supervision of high-risk O09.90 11 weeks gestation of Z3A.11 Weeks of gestation: 11 weeks Obesity affecting O99.210 Rectal bleeding K62.5 BMI 32.0-32.9,adult Z68.32 PCOS (polycystic ovarian syndrome) E28.2 Infertility Endometriosis N80.9 Chronic GERD K21.9 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 Digestive disease complication type: without complication Ulcerative colitis location: ulcerative rectosigmoiditis Assessment and Plan Assessment and Plan (1) resulting from in vitro fertilization: Status: Acute Qualifiers: Trimester: unspecified trimester Qualified Code(s): O09.819 - Supervision of resulting from assisted reproductive technology, unspecified trimester Comment: growth US and NSTs at 36 week (2) History of maternal blood transfusion, currently : Status: Acute Comment: 2018 due to anemia (3) History of anemia: Status: Acute (4) Crohn's disease: Status: Acute Comment: Pt reports dx, pt of (5) Hx of TB skin testing: Status: Acute Comment: treated by 2022, negative testing since. (6) Subchorionic hematoma in first trimester: Status: Acute Comment: seen on US in ER 01/22/25 and with fertility specialist (7) Prior with demise: Status: Acute Comment: 20 weeks, subchorionic hematoma (8) Supervision of high-risk : Status: Acute Comment: , GIL 09/13/25, DEBRA Kim (jul- week demise) Romel (9) : Status: Acute Qualifiers: Weeks of gestation: 11 weeks Qualified Code(s): Z3A.11 - 11 weeks gestation of Comment: declined NIPT & Carrier testing (10) Obesity affecting : Status: Acute Comment: HGBA1c (11) Rectal bleeding: Status: Acute (12) BMI 32.0-32.9,adult: Status: Acute (13) PCOS (polycystic ovarian syndrome): Status: Acute (14) Infertility: Status: Acute Comment: SA-nl, normal pelvic US and TSH Nl HSG 07/2023 (15) Endometriosis: Status: Acute Comment: STAGE 2 Tejinder 07/2023 ROR (16) Chronic GERD: Status: Chronic (17) Ulcerative colitis: Status: Chronic Qualifiers: Digestive disease complication type: without complication Ulcerative colitis location: ulcerative rectosigmoiditis Qualified Code(s): K51.30 - 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 Medications: New ondansetron 4 mg PO Q6H PRN 30 tabs 3RF nausea and vomiting 02/23/25 1143 <Electronically signed by Marcia Lyman DO> Date _ [facility] Yen [facility] Signature: Date (if applicable) CC: ~ [facility] Work Phone: Reason for referral (narrative)No reason for referral information availableWCleveland Clinic Work Phone: Reason for visit Narrative* Other Medical (Routine) - Authorized Specialty Diagnoses / Procedures Referred By Contandrea t Referred To Contact Reproductive Endocrinology and Infertility Diagnoses Fertility testing Procedures Hysteroscopy diagnostic Imelda Pollard MD [address] [place] [address] Phone: tel: fax: Referral ID Status Reason Start Date Expiration Date V isits Requested Visits Authorized [id number] Authorized 07/14/2024 07/14/2025 1 1 [facility] Work Phone: Reason for visit Narrative* Imaging (Routine) - Authorized Specialty Diagnoses / Procedures Referred By Contac t Referred To Contact Radiology Diagnoses Female infertility Procedures TERRENCE US Pelvis Limited Follicles - Follicle Studies Performed Alejandra Chávez MD [address] [facility] Sobeida Dhaliwal, [facility] [address] [place] [address] Phone: tel: fax: Referral ID Status Reason Start Date Expiration Date Visits Requested Visits Authorized [id number] Authorized Perform Procedure 4 08/17/2025 8 8 [facility] Work Phone: reason for visit Narrative* Procedure (Routine) - Authorized Specialty Diagnoses / Procedures Referred By Contact Referred To Contact Reproductive Endocrinology and Infertility Diagnoses Encounter for assisted reproductive fertility cycle Procedures Egg Retrieval PA FOLLICLE PUNCTURE OOCYTE RETRIEVAL ANY METHOD CHG [...] ID FROM ASPIR OTH/THN SEMINAL Katelyn Benitez, CODE ENFORCEMENT OFFICER-LABORATORY TECHNICAL SPECIALIST [address] [place] [address] Phone: tel:[phone] fax:[phone] Referral ID Status Reason Start Date Expiration Date V isits Requested Visits Authorized [id number] Authorized 09/12/2024 09/12/2025 1 1 [facility] Work Phone: reason for visit Narrative* Imaging (Routine) - Authorized Specialty Diagnoses / Procedures Referred By Contac t Referred To Contact Radiology Diagnoses Female infertility Procedures TERRENCE US Pelvis Limited Follicles - Follicle Studies Performed Alejandra Chávez MD [address] [facility] [place] [address] Phone: tel: fax: Referral ID Status Reason Start Date Expiration Date Visits Requested Visits Authorized [id number] Authorized Perform Procedure 11/07/2024 11/07/2025 8 8 [facility] Work Phone: reason for visit Narrative* Procedure (Routine) - Authorized Specialty Diagnoses / Procedures Referred By Contact Referred To Contact Reproductive Endocrinology and Infertility Diagnoses Encounter for assisted reproductive fertility cycle Procedures Egg Retrieval PA FOLLICLE PUNCTURE OOCYTE RETRIEVAL ANY METHOD CHG [...] FROM ASPIR OTH/THN SEMINAL Eli, Katelyn R, CODE ENFORCEMENT OFFICER-LABORATORY TECHNICAL SPECIALIST [address] [place] [address] Phone: tel:[phone] fax:[phone] Referral ID Status Reason Start Date Expiration Date V isits Requested Visits Authorized [id number] Authorized 10/19/2024 10/19/2025 1 1 [facility] Work Phone: Reason for visit Narrative* Imaging (Routine) - Authorized Specialty Diagnoses / Procedures Referred By Denny serna Referred To Contact Radiology Diagnoses Female infertility Procedures TERRENCE US Endometrial Lining Check Imelda Pollard MD [address] [place] [address] Phone: tel: fax: Referral ID Status Reason Start Date Expiration Date Visits Requested Visits Authorized [id number] Authorized Perform Procedure 11/28/2024 11/28/2025 5 5 [facility] Work Phone: Reason for visit Narrative* Procedure (Routine) - Authorized Specialty Diagnoses / Procedures Referred By Denny serna Referred To Contact Reproductive Endocrinology and Infertility Diagnoses Encounter for assisted reproductive fertility cycle Procedures Embryo Transfer PA EMBRYO TRANSFER INTRAUTERINE CHG ULTRASONIC GUIDANCE INTRAOPERATIVE CHG THAWING CRYOPRESERVED EMBRYO CHG ASSTD EMBRYO HATCHING MICROTQS ANY METH CHG PREPJ EMBRYO TR Imelda Pollard MD [address] [place] [address] Phone: tel: fax: Referral ID Status Reason Start Date Expiration Date V isits Requested Visits Authorized [id number] Authorized 11/30/2024 08/29/2025 1 1 [facility] Work Phone: Summary Purpose Family History Relationship Condition Age at Onset Recorded Date/T karyna grandmother Diabetes mellitus Unknown grandfather Diabetes mellitus Unknown Relationship Condition Age at Onset Recorded Date/T karyna grandmother Diabetes mellitus Unknown grandfather Diabetes mellitus Unknown father Hypertension Unknown Hyperlipidemia Unknown Coronary artery disease Unknown Advance Directives Advance Directive Response Recorded Date/ Time Living Will Yes June 25 12:50pm Power of Immigration Paralegal Yes June 25, 2023 12:50pm Advance Directive Response Recorded Date/ Time Name of Medical Power of Immigration Paralegal - MAURO LD September 29, 2023 8:44am Living Will Yes September 29 8:44am Power of Immigration Paralegal Yes September 29, 2023 8:44am Advance Directive Response Recorded Date/ Time Name of Medical Power of Immigration Paralegal - MAURO LD September 29, 2023 9:44am Living Will Yes September 29 9:44am Power of Immigration Paralegal Yes September 29, 2023 9:44am Advance Directive Response Recorded Date/ Time Living Will Yes September 29 9:44am Do you have a Healthcare Power of Immigration Paralegal? Yes September 29, 2023 9:44am Chief Complaint and Reason for Visit Chief Complaint ESTABLISH W/ NEW GI AFTER MOVING TO [place] 6 WK FU INT LABS Reason for [...] Infertility Chief Complaint Admit Date 1 Y January 01, 2025 7:22am EORDER January 06, 2025 8:19a m Reason for Visit Admit Date Chronic GERD January 01, 2025 7:22am Ulcerative colitis January 01, 2025 7:22am Chief Complaint Admit Date 1 Y January 01, 2025 7:22am EORDER January 06, 2025 8:19a m Pre new ob, confirm preg, vitals December 12:46pm Chief Complaint Admit Date 1 Y January 01, 2025 7:22am EORDER January 06, 2025 8:19a m Pre new ob, confirm preg, vitals December 12:46pm fu early spotting per SM February 02, 2025 3:00pm Reason for Visit Admit Date Chronic GERD January 01, 2025 7:22am Ulcerative colitis January 01, 2025 7:22am Amenorrhea January 26, 2025 12:46 pm Subchorionic hematoma in first trimester February 02, 2025 3:00pm Chief Complaint Admit Date 1 Y January 01, 2025 7:22am EORDER January 06, 2025 8:19a m Pre new ob, confirm preg, vitals December 12:46pm fu early spotting per SM February 02, 2025 3:00pm *EST* NOB IVF 12/26, GIL 09/13/25January 102024 8:12am Reason for Visit Admit Date Chronic GERD January 01, 2025 7:22am Ulcerative colitis January 01, 2025 7:22am Amenorrhea January 26, 2025 12:46 pm Subchorionic hematoma in first trimester February 02, 2025 3:00pm BMI 32.0-32.9,adult February 06, 2025 8:12 am Crohn's disease February 06, 2025 8:12 am Endometriosis February 06, 2025 8:12 am History of anemia February 06, 2025 8:12 am History of maternal blood transfusion, c urrently February 06, 2025 8:12am Hx of TB skin testing February 06, 2025 8: 12am Infertility February 06, 2025 8:12 am Obesity affecting February 06 8:12am PCOS (polycystic ovarian syndrome) February 06, 2025 8:12am February 06, 2025 8:12 am resulting from in vitro fertil ization February 06, 2025 8:12am Prior with demise January 282024 8:12am Rectal bleeding February 06, 2025 8:12 am Subchorionic hematoma in first trimester February 06, 2025 8:12am Supervision of high-risk February 06, 2025 8:12am Chronic GERD February 06, 2025 8:12 am Ulcerative colitis February 06, 2025 8:12 am Chief Complaint Admit Date 1 Y FU January 01, 2025 7:22am EORDER January 06, 2025 8:19a m Pre new ob, confirm preg, vitals December 12:46pm fu early spotting per SM February 02, 2025 3:00pm *EST* NOB IVF 12/26, GIL 09/13/25January 8:12am Heart beat Check *IVF February 23, 2025 10 :46am Reason for Visit Admit Date Chronic GERD January 01, 2025 7:22am Ulcerative colitis January 01, 2025 7:22am Amenorrhea January 26, 2025 12:46 pm Subchorionic hematoma in first trimester February 02, 2025 3:00pm BMI 32.0-32.9,adult February 06, 2025 8:12 am Crohn's disease February 06, 2025 8:12 am Endometriosis February 06, 2025 8:12 am History of anemia February 06, 2025 8:12 am History of maternal blood transfusion, c urrently February 06, 2025 8:12am Hx of TB skin testing February 06, 2025 8: 12am Infertility February 06, 2025 8:12 am Obesity affecting February 06 8:12am PCOS (polycystic ovarian syndrome) February 06, 2025 8:12am February 06, 2025 8:12 am resulting from in vitro fertil ization February 06, 2025 8:12am Prior with demise January 282024 8:12am Rectal bleeding February 06, 2025 8:12 am Subchorionic hematoma in first trimester February 06, 2025 8:12am Supervision of high-risk February 06, 2025 8:12am Chronic GERD February 06, 2025 8:12 am Ulcerative colitis February 06, 2025 8:12 am BMI 32.0-32.9,adult February 23, 2025 10:4 6am Crohn's disease February 23, 2025 10:4 6am Endometriosis February 23, 2025 10:4 6am History of anemia February 23, 2025 10:4 6am History of maternal blood transfusion, c urrently February 23, 2025 10:46am Hx of TB skin testing February 23, 2025 10 :46am Infertility February 23, 2025 10:4 6am Obesity affecting February 23 10:46am PCOS (polycystic ovarian syndrome) February 23, 2025 10:46am February 23, 2025 10:4 6am resulting from in vitro fertil ization February 23, 2025 10:46am Prior with demise January 292024 10:46am Rectal bleeding February 23, 2025 10:4 6am Subchorionic hematoma in first trimester February 23, 2025 10:46am Supervision of high-risk February 23, 2025 10:46am Chronic GERD February 23, 2025 10:4 6am Ulcerative colitis February 23, 2025 10:4 6am Chief Complaint Admit Date 1 Y FU January 01, 2025 7:22am EORDER January 06, 2025 8:19a m Pre new ob, confirm preg, vitals December 12:46pm fu early spotting per SM February 02, 2025 3:00pm *EST* NOB IVF 12/26, GIL 09/13/25January 8:12am Heart beat Check *IVF February 23, 2025 10 :46am 13 WK OB *IVF March 09, 2025 11:1 6am Reason for Visit Admit Date Ulcerative colitis January 01, 2025 7:22am Chronic GERD January 01, 2025 7:22am Amenorrhea January 26, 2025 12:46 pm Subchorionic hematoma in first trimester February 02, 2025 3:00pm Crohn's disease February 06, 2025 8:12 am History of anemia February 06, 2025 8:12 am History of maternal blood transfusion, c urrently February 06, 2025 8:12am Obesity affecting February 06 8:12am February 06, 2025 8:12 am resulting from in vitro fertil ization February 06, 2025 8:12am Prior with demise January [id number] 8:12am Subchorionic hematoma in first trimester February 06, 2025 8:12am Supervision of high-risk February 06, 2025 8:12am Ulcerative colitis February 06, 2025 8:12 am BMI 32.0-32.9,adult February 06, 2025 8:12 am Chronic GERD February 06, 2025 8:12 am Endometriosis February 06, 2025 8:12 am Hx of TB skin testing February 06, 2025 8: 12am Infertility February 06, 2025 8:12 am PCOS (polycystic ovarian syndrome) February 06, 2025 8:12am Rectal bleeding February 06, 2025 8:12 am Crohn's disease February 23, 2025 10:4 6am History of anemia February 23, 2025 10:4 6am History of maternal blood transfusion, c urrently February 23, 2025 10:46am Obesity affecting February 23 10:46am February 23, 2025 10:4 6am resulting from in vitro fertil ization February 23, 2025 10:46am Prior with demise January [id number] 10:46am Subchorionic hematoma in first trimester February 23, 2025 10:46am Supervision of high-risk February 23, 2025 10:46am Ulcerative colitis February 23, 2025 10:4 6am BMI 32.0-32.9,adult February 23, 2025 10:4 6am Chronic GERD February 23, 2025 10:4 6am Endometriosis February 23, 2025 10:4 6am Hx of TB skin testing February 23, 2025 10 :46am Infertility February 23, 2025 10:4 6am PCOS (polycystic ovarian syndrome) February 23, 2025 10:46am Rectal bleeding February 23, 2025 10:4 6am Crohn's disease March 09, 2025 11:1 6am History of anemia March 09, 2025 11:1 6am History of maternal blood transfusion, c urrently March 09, 2025 11:16am Obesity affecting March 09 11:16am March 09, 2025 11:1 6am resulting from in vitro fertil ization March 09, 2025 11:16am Prior with demise February [id number] 11:16am Subchorionic hematoma in first trimester March 09, 2025 11:16am Supervision of high-risk March 09, 2025 11:16am Ulcerative colitis March 09, 2025 11:1 6am Additional Source Comments INFORMATION SOURCE (unrecogn ized section and content) DATE CREATED AUTHOR 07/01/2019 [facility] DATE CREATED AUTHOR AUTHOR'S ORGANIZ ATION 04/10/2023 [facility] DATE CREATED AUTHOR AUTHOR'S ORGANIZ ATION 11/26/2023 [facility] ([place]) DATE CREATED AUTHOR AUTHOR'S ORGANIZ ATION 12/22/2024 [facility] DATE CREATED AUTHOR AUTHOR'S ORGANIZ ATION 12/22/2024 [facility] DATE CREATED AUTHOR AUTHOR'S ORGANIZ ATION 01/26/2025 [facility] DATE CREATED AUTHOR AUTHOR'S ORGANIZ ATION 01/29/2025 [facility] DATE CREATED AUTHOR AUTHOR'S ORGANIZ ATION 03/01/2025 [facility] Goals (unrecognized section and content) [...] wart-pt states was treated with ln2 at [facility]. Reason Comments Vaginal Discharge Care Teams (unrecognized [...] CNM Attending Provider, Referring Pro vider Active Threading Machine Tender Relationship Specialty Start Date End Date [facility], RN Registered Nurse 07/17/24 Thread[employer] Machine Tender Relationship Specialty Start Date End Date [facility], RN Registered Nurse 07/17/24 Threading Machine Tender Relationship Specialty Start Date End Date [facility], RN Registered Nurse 07/17/24 Threading Machine Tender Relationship Specialty Start Date End Date [facility], RN Registered Nurse 07/17/24 Threading Machine Tender Relationship Specialty Start Date End Date [facility], RN Registered Nurse 07/17/24 Threading Machine Tender Relationship Specialty Start Date End Date [facility], RN Registered Nurse 07/17/24 Threading Machine Tender Relationship Specialty Start Date End Date [facility], RN Registered Nurse 07/17/24 Threading Machine Tender Relationship Specialty Start Date End Date [facility], RN Registered Nurse 07/17/24 Threading Machine Tender Relationship Specialty Start Date End Date [facility], RN Registered Nurse 07/17/24 Threading Machine Tender Relationship Specialty Start Date End Date [facility], RN Registered Nurse 07/17/24 Threading Machine Tender Relationship Specialty Start Date End Date [facility], RN Registered Nurse 07/17/24 Threading Machine Tender Relationship Specialty [place] [address] [place] [address] PCP - General Internal Medicine 12/11/24 [facility], RN Registered Nurse 07/17/24 Threading Machine Tender Relationship Specialty [place] [address] [address] [address] PCP - General Internal Medicine 12/11/24 [facility], RN Registered Nurse 07/17/24 Threading Machine Tender Relationship Specialty [place] [address] [address] [address] PCP - General Internal Medicine 12/11/24 [facility], RN Registered Nurse 07/17/24 Threading Machine Tender Relationship Specialty [place] [id number] [address] [facility] [address] [place] [address] PCP - General Internal Medicine 12/11/24 Amy [...] January 06, 2025 End: January 06, 2025 Threading Machine Tender Relationship Specialty [place] [address] [address] [address] PCP - General Internal Medicine 12/11/24 Amy Cherry, RN Registered Nurse 07/17/24 Threading Machine Tender Relationship Specialty [place] [id number] [address] [facility] [address] [place] [address] PCP - General Internal Medicine 12/11/24 Amy Cherry, RN Registered Nurse 07/17/24 Team Status: Inactive Member Role Status Dates Dr. Catrachito Mercedes MD Primary Care Provider Active Start: January 26, 2025 End: January 26, 2025 Dr. Catrachito Mercedes MD Referring Provider Active Start: January 26, 2025 End: January 26, 2025 Dr. Carmen Shearer MD Attending Provider Active Start: January 26, 2025 End: January 26, 2025 Team Status: Active Member Role Status Dates Dr. Catrachito Mercedes MD Primary Care Provider Active Start: February 02, 2025 Dr. Domo Weaver DO Attending Provider Active Start: February 02, 2025 Dr. Domo Weaver DO Referring Provider Active Start: February 02, 2025 Team Status: Inactive Member Role Status Dates Dr. Catrachito Mercedes MD Primary Care Provider Active Start: February 02, 2025 End: February 02, 2025 Dr. Catrachito Mercedes MD Referring Provider Active Start: February 02, 2025 End: February 02, 2025 Mary Beth Allen CNM Attending Provider Active Start: February 02, 2025 End: February 02, 2025 Team Status: Inactive Member Role Status Dates Dr. Catrachito Mercedes MD Primary Care Provider Active Start: February 06, 2025 End: February 06, 2025 Dr. Catrachito Mercedes MD Referring Provider Active Start: February 06, 2025 End: February 06, 2025 Iesha Lo CNM Attending Provider Active S tart: February 06, 2025 End: February 06, 2025 Team Status: Active Member Role Status Dates Dr. Catrachito Mercedes MD Primary Care Provider Active Start: February 06, 2025 Dr. Carmen Shearer MD Attending Provider Active Start: February 06, 2025 Dr. Carmen Shearer MD Referring Provider Active Start: February 06, 2025 Team Status: Inactive Member Role Status Dates Dr. Catrachito Mercedes MD Primary Care Provider Active Start: February 02, 2025 End: February 02, 2025 Dr. Domo Weaver DO Attending Provider Active Start: February 02, 2025 End: February 02, 2025 Dr. Domo Weaver DO Referring Provider Active Start: February 02, 2025 End: February 02, 2025 Team Status: Inactive Member Role Status Dates Dr. Catrachito Mercedes MD Primary Care Provider Active Start: February 06, 2025 End: February 06, 2025 Dr. Carmen Shearer MD Attending Provider Active Start: February 06, 2025 End: February 06, 2025 Dr. Carmen Shearer MD Referring Provider Active Start: February 06, 2025 End: February 06, 2025 Team Status: Active Member Role/Relationship Status Dates Dr. Catrachito Mercedes MD Primary Care Provider Active Team Status: Inactive Member Role/Relationship Status Dates Dr. Domo Weaver DO Attending Provider Active Start: January 01, 2025 End: January 01, 2025 Dr. Catrachito Mercedes MD Primary Care Provider Active Start: January 01, 2025 End: January 01, 2025 Dr. Catrachito Mercedes MD Referring Provider Active Start: January 01, 2025 End: January 01, 2025 Team Status: Inactive Member Role/Relationship Status Dates Dr. Catrachito Mercedes MD Primary Care Provider Active Start: January 06, 2025 End: January 06, 2025 Dr. Domo Weaver DO Attending Provider Active Start: January 06, 2025 End: January 06, 2025 Dr. Domo Weaver DO Referring Provider Active Start: January 06, 2025 End: January 06, 2025 Team Status: Inactive Member Role/Relationship Status Dates Dr. Catrachito Mercedes MD Primary Care Provider Active Start: January 26, 2025 End: January 26, 2025 Dr. Catrachito Mercedes MD Referring Provider Active Start: January 26, 2025 End: January 26, 2025 Dr. Carmen Shearer MD Attending Provider Active Start: January 26, 2025 End: January 26, 2025 Team Status: Inactive Member Role/Relationship Status Dates Dr. Catrachito Mercedes MD Primary Care Provider Active Start: February 02, 2025 End: February 02, 2025 Dr. Domo Weaver DO Attending Provider Active Start: February 02, 2025 End: February 02, 2025 Dr. Domo Weaver DO Referring Provider Active Start: February 02, 2025 End: February 02, 2025 Team Status: Inactive Member Role/Relationship Status Dates Dr. Catrachito Mercedes MD Primary Care Provider Active Start: February 02, 2025 End: February 02, 2025 Dr. Catrachito Mercedes MD Referring Provider Active Start: February 02, 2025 End: February 02, 2025 Mary Beth Allen CNM Attending Provider Active Start: February 02, 2025 End: February 02, 2025 Team Status: Inactive Member Role/Relationship Status Dates Dr. Catrachito Mercedes MD Primary Care Provider Active Start: February 06, 2025 End: February 06, 2025 Dr. Catrachito Mercedes MD Referring Provider Active Start: February 06, 2025 End: February 06, 2025 Iesha Lo CNM Attending Provider Active S tart: February 06, 2025 End: February 06, 2025 Team Status: Inactive Member Role/Relationship Status Dates Dr. Catrachito Mercedes MD Primary Care Provider Active Start: February 06, 2025 End: February 06, 2025 Dr. Carmen Shearer MD Attending Provider Active Start: February 06, 2025 End: February 06, 2025 Dr. Carmen Shearer MD Referring Provider Active Start: February 06, 2025 End: February 06, 2025 Team Status: Inactive Member Role/Relationship Status Dates Dr. Catrachito Mercedes MD Primary Care Provider Active Start: February 23, 2025 End: February 23, 2025 Dr. Catrachito Mercedes MD Referring Provider Active Start: February 23, 2025 End: February 23, 2025 Dr. Marcia Yen DO Attending Provider Activ e Start: February 23, 2025 End: February 23, 2025 Team Status: Inactive Member Role/Relationship Status Dates Dr. Catrachito Mercedes MD Primary Care Provider Active Start: March 09, 2025 End: March 09, 2025 Dr. Catrachito Mercedes MD Referring Provider Active Start: March 09, 2025 End: March 09, 2025 Dr. Carmen Shearer MD Attending Provider Active Start: March 09, 2025 End: March 09, 2025 FOR RECORDS PERTAINING TO PATIENTS WHO [...] BE BASED ON THE PRIMARY CLINICAL RECORDS. [employer] provides no warranty or guarantee of the accuracy or completeness of information in this document.
[2025-03-10 09:51] LABS: CRP 8.03 mg/L (0.0-3.0)
[2025-03-10 10:02] LABS: Ferritin 61 ng/mL (22-378); Iron 102 ug/dL (50-170); Iron Binding Capacity,Total 353 ug/dL (250-450); Iron Binding Capacity,Unsat 251 ug/dL (228-428); Vitamin B12 614 pg/mL (180-914)
== END | disposition home or self-care (01) ==
LOC: LAB 08:33
PROVIDERS: Obstetrics & Gynecology; PCP Family Medicine; Referring Provider Internal Medicine Gastroenterology; Visit Provider Internal Medicine Gastroenterology
DX: K51.30 Ulcerative (chronic) rectosigmoiditis without complications (principal)
CPT/HCPCS: 36415; 82607; 82728; 83540; 83550; 85652; 86140

== ENCOUNTER → 2025-05-12 | Outpatient (CLI) | payer BC, SELFPAY ==
--- OUTSIDE RECORDS SUMMARY | 2025-05-12 08:55 | XMS RPT_ITS | CCD ---
Author Organization [facility] CliniSynh Care Team Providers Care Behavioral Health Aide Name Role Phone Care Physician, No Primary Primary Care Provider Unavailable Care Physician, No Primary Referring Provider Un available FriendDr. Oliveros Attending Provider [phone] Ezequiel VU, MIRELLA-C Imelda Fernández Attending Provider [phone] Care Physician, No Primary Primary Care Provider Unavailable Care Physician, No Primary Referring Provider Un available Care Physician, No Primary Primary Care Provider Unavailable Care Physician, No Primary Referring Provider Un available Ezequiel UV, OTOLARYNGOLOGY TEACHER-C Imelda Fernández Attending Provider [phone] [phone] Primary Care Provider Unavailabl e Care Physician, No Primary Primary Care Provider Unavailable Care Physician, No Primary Referring Provider Un available Friend, Dr. Oliveros Attending Provider [phone] CATRACHITO MERCEDES MD Primary Care Physician FriendDr. Oliveros Other Provider [phone] MAGO, NASTAMICHEL Primary Care Provider Unavailab le MAGO, NASTARAN Referring Provider Unavailable Care Physician, No Primary Primary Care Provider Unavailable Care Physician, No Primary Referring Provider Un available FriendDr. Oliveros Attending Provider [phone] FriendDr. Oliveros Other Provider [phone] MAGO, NASTARAN Primary Care Provider Unavailab le [...] Unavailable Denise Ordonez MD Primary Care Provider MARCIA KISER Attending Unavailable MARCIA KISER Attending [...] Referring Unavailable FLYCKTRAYAIMELDA Analilia Referring Unavailable DENISE ODRONEZ Primary Care Unavailable DENISE ORDONEZ Primary Care [...] Unavailable Alejandro WATTS, Mary Beth Attending Provider [phone] Iesha Lo CNM Attending Provider [phone] Manfred BLANCO, Dr. Morales Referring Provider [phone] Dr. Marcia Yen DO Attending Provider Manfred BLANCO, Dr. Morales Other Provider [phone] Mago, Nastaran Primary Care Unavailable Mago, Nastaran Referring Unavailable Carmen Lugo Attending Unavailable Mago, Nastaran Primary Care Unavailable Mago, Nastaran Referring Unavailable Marcia Yen Attending Unavailabl e Mago, Nastaran Referring Unavailable Mago, Nastaran Primary Care Unavailable Carmen Lugo Attending Unavailable Mago, Nastaran Referring Unavailable Mago, Nastaran Primary Care Unavailable Iesha Lo Attending Unavailable Renetta Cha Attending Unavailable Mago, Nastaran Primary Care Unavailable Charan OTOLARYNGOLOGY TEACHER, Jesika Attending Unavailable Mago, Nastaran Referring Unavailable Friend, Domo Attending Unavailable Mago, Nastaran Primary Care Unavailable Mago, Nastaran Referring Unavailable Mago, Nastaran Primary Care Unavailable Carmen Lugo Attending Unavailable Mago, Nastaran Referring Unavailable Renetta Cha Attending Unavailable Renetta Cha Referring Unavailable Mago, Nastaran Primary Care Unavailable Iesha Lo Consulting Unavailable Friend, Domo Attending Unavailable Mago, Nastaran Primary Care Unavailable Carmen Lugo Consulting Unavailable Friend, Domo Referring Unavailable Renetta Cha Referring Unavailable Renetta Cha Attending Unavailable Akua, Car Primary Care Unavailable Mary Beth Allen Attending Unavailable Mago, Nastaran Referring Unavailable Mago, Nastaran Primary Care Unavailable Renetta Cha Referring Unavailable Renetta Cha Attending Unavailable Akua, Car Primary Care Unavailable Friend, Domo Attending Unavailable Mago, Nastamichel Primary Care Unavailable Friend, Domo Referring Unavailable Friend, Domo Attending Unavailable Mago, Nastaran Primary Care Unavailable Friend, Domo Referring Unavailable Mago, Nastaran Primary Care Unavailable Carmen Lugo Attending Unavailable Carmen Lugo Referring Unavailable Mago, Nastaran Primary Care Unavailable Mago, Nastamichel Referring Unavailable Carmen Lugo Attending Unavailable Mago, Nastaran Primary Care Unavailable Mago, Nastaran Referring Unavailable Iesha Lo Attending Unavailable Renetta Cha Attending Unavailable Akua, Car Referring Unavailable Akua, Cra Primary Care Unavailable Renetta Cha Attending Unavailable Mago, Nastaran Primary Care Unavailable Mago, Catrachito Referring Unavailable NO PRIMARY CARE, Primary Care Unavailable PATRICK OAKES Attending Unavailable CARMEN LUGO Referring Unavailabl e NO PRIMARY CARE, Primary Care Unavailable CARMEN LUGO Referring Unavailabl e RENA SPAIN Attending Unavailable VIOLETTE BLANCO, DR PATRICK Davalos Attending Jorgito MERCEDES MD, CATRACHITO Primary Care Unavailable Mago BLANCO, Dr. Winston Primary Care Provider Dr. Catrachito Mercedes MD Referring Provider [phone] Domo ABBOTT Attending Provider Friend Dr. Domo ABBOTT Referring Provider Medications Current Medications Medication Drug Class(es) Dates Sig (Normalized) Sig (Original) acetaminophen 500 mg oral tablet (1 source) Start: 08-27-2023 End: 09-24-2023 Tylenol Extra Strength 500 mg oral tablet Dose : 500 mg = 1 tab(s), Oral, q4h, X 14 day(s), # 30 tab(s), 1 Refill(s), 09/24/23 11:51:00 AM EST, Pharmacy: [id number], 160, cm, 08/27/23 10:15:00 EST, Height, kg, [...] day(s), # 12 tab(s), 0 Refill(s), Pharmacy: [facility] #[id number], Postoperative pain, 160, cm, 08/27/23 10:15:00 EST, Height, 75, kg, 08/27/23 10:15:00 EST, Dosing Weight Start Date: 08/27/23 Stop Date: 09/03/23 Status: Ordered aspirin 81 mg delayed release oral tablet (20 sources) Platelet Aggregation Inhibitor, Nonsteroidal Anti-inflammatory Drug [...] minutes after 28 capsule 08/14/2024 08/28/2024 Active famotidine 40 mg oral tablet (3 sources) Histamine-2 Receptor Antagonist Start: 04-27-2025 End: 05-11-2025 take 1 tablet by mouth twice daily as needed Famotidine 40 mg tablet Active 40 mg PO TWICE A DAY as needed May 11, 2025 2:12pm ibuprofen 800 mg oral tablet (1 source) Nonsteroidal Anti-inflammatory Drug Start: 08-27-2023 End: 09-10-2023 ibuprofen 800 mg oral tablet Dose : 800 mg = 1 tab(s), Oral, q8h, X 14 day(s), # 42 tab(s), 0 Refill(s), 09/10/23 11:51:00 AM EST, Pharmacy: [facility] #[id number], 160, cm, 08/27/23 10:15:00 EST, Height, kg, 08/27/23 10:15:00 EST, Dosing Weight Start Date: 08/27/23 Stop Date: 09/10/23 Status: Ordered lidocaine 25 mg/ml / prilocaine 25 mg/ml topical cream (8 sources) Antiarrhythmic, Amide Local Anesthetic Start: 11-28-2024 End: 11-28-2025 lidocaine-priloca ine (Emla) 2.5-2.5 % cream Indications: Female infertility Apply topically once daily. Apply to treatment area 1 hour prior to injection. 30 g 2 11/30/2024 4:28 PM EDT 11/28/2024 11/28/2025 Active mesalamine 1000 mg rectal suppository (1 source) Aminosalicylate Start: 05-11-2025 Mesalamine ([place]asa) 1,000 mg suppository Active 1000 mg RC AT BEDTIME May 11, 2025 12:00am Mv-Mins 43-Vvce-Bkvmw No.1-Dha (Pnv-[place]) 28-1-300 mg capsule (11 sources) Start: 01-26-2025 Mv-Mins 79-Hpiw-Qbzcw No.1-Dha (Pnv-[place]) 28-1-300 mg capsule Active NMA PO January 26, 2025 12:00am predniSONE 10 mg oral tablet (20 sources) Start: 05-11-2025 Prednisone 10 mg tablet Active mg PO May 11, 2025 12:00am Start: 01-26-2025 End: 03-09-2025 Prednisone 10 mg tablet Disc ontinued 10 mg PO daily January 26, 2025 [...] for five day and then one tab. Prenat.Vits,Mario,Sgd-Nggg-Qlj ic (10 sources) Start: 10-22-2021 take 1 tablet by mouth once daily Prenat.Vits,Mario,Ygx-Zomc-Xrvpj Active 1 TABLET PO DAILY October 22, 2021 9:52am Start: 10-22-2021 take 1 tablet by damon th once daily Prenat.Vits,Mario,Mfa-Rpha-Sipxd Active 1 TABLET PO DAILY October 22, 2021 12:00am Start: 10-22-2021 take 1 tablet by damon th once daily Prenat.Vits,Mario,Yrk-Qgkz-Qmqcp Active 1 TABLET PO DAILY October 22, 2021 1:00am 4-SQCK-VKLCY ACID-OM3 ORAL (20 sources) Start: 12-07-2019 take 1 capsule by mouth once daily 3-WPMR-UUDJG ACID-OM3 ORAL Take 1 capsule by mouth [...] syringe kit Discontinued 0 SC .COMPLEX 2 6 September 15, 2021 1:00am March 10, 2022 [...] tablet Discontinued 50 mg PO DAILY 180 6 September 19, 2021 5:56pm March 06, 2022 8:00am take two tablets one time a day budesonide 3 mg delayed release oral capsule (20 sources) Corticosteroid Start: 01-06-2024 End: 07-12-2024 take 1 capsule by mouth once daily Budesonide 3 mg capsule,delayed,ex tend.release Discontinued 3 mg PO DAILY 90 3 January 06, 2024 12:00am July 12, 2024 9:31am Start: 12-15-2023 End: 07-12-2024 Budesonide 3 mg capsule,rosa yed,extend.release Discontinued 3 mg PO TWICE A DAY [...] 10/09/2024 12/11/2024 Discontinued (Med List Cleanup) Cholecalciferol (12 sources) Vitamin D Start: 07-12-2024 End: 01-26-2025 Cholecalciferol (Vitamin D3) 62.5 mcg (2,500 unit) capsule Discontinued ug PO July 12, 2024 1:00am January 26, 2025 1:03pm Start: 07-12-2024 Cholecalcifero l (Vitamin D3) 62.5 mcg (2,500 unit) capsule Active ug PO July 12, 2024 1:00am chorionic gonadotropin 53713 unt/ml injectable solution (15 sources) Gonadotropin Start: 11-07-2024 End: 11-22-2024 inject [id number] [IU] by subcutaneous injection once chorionic gonadotropin (Pregnyl) 10,000 unit injection Indications: Female infertility Reconstitute according to instructions and inject 10,000 units (1 mL) under the skin as a one time dose, as directed per provider for trigger. 1 each 11/08/2024 11/22/2024 Discontinued (Therapy completed) Start: 08-18-2024 End: 10-11-2024 inject [id number] [IU] by subcutaneous injection once chorionic gonadotropin (Pregnyl) 10,000 unit injection Indications: Female infertility Reconstitute according to instructions and inject 10,000 units (1 mL) under the skin as a one time dose, as directed per provider for trigger. 1 each 08/18/2024 10/11/2024 Discontinued (Therapy completed) dicyclomine hydrochloride 20 mg oral tablet (19 sources) Anticholinergic Start: 08-09-2023 End: 09-08-2023 take 1 tablet by mouth three times daily Dicyclomine 20 mg tablet Discontinued 20 mg PO THREE TIMES A DAY 90 30 0 August 09, 2023 1:00am September 07, 2023 1:00am September 08, 2023 1:04am [place] 6-Lkr-Ojz-Fish Oil (12 sources) Start: 07-12-2024 End: 01-26-2025 [place] 9-Sem-Pth-Fish Oil (Fish Oil) 300-1,000 mg capsule Discontinued 1 NMA PO daily July 12, 2024 1:00am January 26, 2025 1:04pm Start: 07-12-2024 [place] 3-Dha-Ep a-Fish Oil (Fish Oil) 300-1,000 mg capsule Active 1 NMA PO daily July 12, 2024 1:00am estradiol 2 mg oral tablet (20 sources) Estrogen Start: 11-28-2024 End: 11-28-2025 take [...] NMA RC TWICE A DAY 15 14 1 March 06, 2022 12:00am November 16, 2022 10:30am Start: 03-06-2022 End: 11-16-2022 Hydrocortisone Acetate Disco ntinued 1 APPFUL RC TWICE A DAY 15 March 06, 2022 12:00am November 16, 2022 10:30am hyoscyamine sulfate 0.125 mg sublingual tablet (20 sources) Start: 03-05-2022 End: 07-12-2024 Hyoscyamine Sulfate 0.125 mg tablet, sublingual Discontinued 0.125 mg PO 2 to 4 times per day as needed for abdominal discomfort 100 0 March 05, 2022 12:00am July 12, 2024 9:31am letrozole 2.5 mg oral tablet (20 sources) Aromatase Inhibitor Start: 03-27-2024 End: 04-01-2024 [...] 2 12/25/2024 03/25/2025 Active Start: 07-25-2024 End: 04-14-2025 take 1 tablet by mouth once daily [...] before meals. 11/05/2021 10/11/2024 Discontinued (Therapy completed) ondansetron 4 mg disintegrating oral tablet (7 sources) Serotonin-3 Receptor Antagonist Start: 02-23-2025 End: 05-11-2025 take 1 tablet by mouth every six hours as needed for nausea and vomiting Ondansetron 4 mg tablet,disintegrating Discontinued 4 mg PO EVERY 6 HOURS as needed for nausea and vomiting 30 February 23, 2025 12:00am May 11, 2025 2:12pm Start: 08-27-2023 End: 09-01-2023 Zofran 4 mg oral tablet Dose : 4 mg = 1 tab(s), Oral, q6h, PRN Nausea/Vomiting, X 5 day(s), # 20 tab(s), 0 Refill(s), 09/01/23 11:51:00 AM EST, Pharmacy: [facility] #[id number], 160, cm, 08/27/23 10:15:00 EST, Height, kg, 08/27/23 10:15:00 EST, Dosing Weight Start Date: 08/27/23 Stop Date: 09/01/23 Status: Ordered pen injector, for follitropin, pen injector (6 [...] to administer Follistim 1 each 11/08/2024 Active Prenat.Vits,Mario,Wba-Orzm-Wtg ic tablet (12 sources) Start: 10-22-2021 End: 01-26-2025 Prenat.Vits,Mario,Iyh-Jofy-Hua ic tablet Discontinued 1 {tbl} PO DAILY October 22, 2021 1:00am January 26, 2025 1:05pm Start: 10-22-2021 Prenat.Vits,Ca l,Ufi-Ylfv-Sqbdj tablet Active 1 {tbl} PO DAILY October 22, 2021 1:00am progesterone oil (20 sources) Start: 01-26-2025 End: 02-23-2025 inject 75 [...] the skin see administration instructions. 12/06/2021 Active valACYclovir 500 mg oral tablet (2 sources) Herpesvirus Nucleoside Analog DNA Polymerase Inhibitor, Herpes Simplex Virus Nucleoside Analog DNA Polymerase Inhibitor, Herpes Zoster Virus Nucleoside Analog DNA Polymerase Inhibitor Start: 04-16-2025 End: 04-19-2025 take 1 tablet by mouth twice daily Valacyclovir (Valtrex) 500 mg tablet Discontinued 500 mg PO TWICE A DAY 6 3 0 April 16, 2025 12:00am April 18, 2025 12:00am April 19, 2025 12:06am History of herpes genitalis Personal history of other infectious and parasitic diseases take one tab twice daily for 3 days Problems Active Problems Problem Classification Problem Date Documented Da te Episodic/Chronic Endometriosis (20 sources) Endometriosis (clinical); Translations: [Endometriosis, unspecified] Onset: 5 12-09-2023 Chronic Comment on above: STAGE 2 [place] 07/31 023 ROR Esophageal disorders (20 sources) Gastroesophageal reflux disease; Translations: [Gastro-esophageal reflux disease without esophagitis] Onset: 5 08-03-2023 Chronic Female infertility (16 sources) Female infertility; Translations: [Female infertility, unspecified] Onset: 3 Chronic Gastrointestinal hemorrhage (20 sources) Rectal hemorrhage; Translations: [Hemorrhage of anus and rectum] Onset: 5 01-17-2025 Episodic Hemorrhage during ; abruptio placenta; placenta previa (1 source) Other antepartum hemorrhage, first trimester; Translations: [Other antepartum hemorrhage, first trimester] Onset: 5 Episodic Immunizations and screening for infectious disease (20 sources) Inactive tuberculosis; Translations: [Latent tuberculosis] Onset: 5 12-22-2022 Episodic Menstrual disorders (20 sources) Amenorrhea; Translations: [Amenorrhea, unspecified] 01-26-2025 Chronic Comment on above: +UPT Nausea and vomiting (10 sources) Postoperative nausea and vomiting; Translations: [Nausea with vomiting, unspecified] Onset: 5 11-22-2024 Episodic Nutritional deficiencies (3 sources) Vitamin D deficiency; Translations: [Vitamin D deficiency, unspecified] Onset: 5 12-11-2024 Chronic Other complications of (20 sources) Maternal obesity complicating , childbirth and the puerperium, antepartum; Translations: [Obesity complicating , unspecified trimester] 01-26-2025 Chronic Comment on above: HGBA1c Other complications of (1 source) Obesity complicating , unspecified trimester; Translations: [Obesity complicating , unspecified trimester] Onset: Chronic Other complications of (2 sources) with inconclusive viability, not applicable or unspecified; Translations: [ with inconclusive viability, not applicable or unspecified] Onset: Episodic Other complications of (20 sources) High risk ; Translations: [Supervision of with other poor reproductive or obstetric history, unspecified trimester] 01-26-2025 Episodic Comment on above: 20 weeks, subchorion ic hematoma , GIL 09/13/25, H usband Romel , GIL 09/13/25, P C Julio ( week demise) Romel growth US and NSTs a t 36 week PRR , GIL 6, PC Julio ( week demise) Romel Other complications of (20 sources) H/O: blood transfusion; Translations: [Supervision of with other poor reproductive or obstetric history, unspecified trimester] 01-26-2025 Episodic Comment on above: 2018 due to anemia Other complications of (1 source) Supervision of high risk , unspecified, unspecified trimester; Translations: [Supervision of high risk , unspecified, unspecified trimester] Onset: Episodic Other complications of (1 source) Supervision [...] vagina] Onset: 5 Episodic Other hematologic conditions (20 sources) History of anemia; Translations: [Personal history [...] Episodic Other nutritional; endocrine; and metabolic disorders (20 sources) Obesity; Translations: [Class 1 obesity in adult] Onset: 5 11-22-2024 Chronic Other nutritional; endocrine; and metabolic disorders (12 sources) Obese class I; Translations: [Class 1 obesity] 05-04-2024 Chronic Other nutritional; endocrine; and metabolic disorders (20 sources) Body mass index 30+ - obesity; [...] 04-20-2023 Episodic Other and delivery including normal (20 sources) Encounter for test, result positive; Translations: [...] and subcutaneous tissue, unspecified] Onset: 5 Episodic Polyhydramnios and other problems of amniotic [...] on above: Pt reports dx, pt of Pt reports dx, pt of . on holden. needs MFM consult. both diagnosis, MFM consult Pt reports dx, pt of Dr. Ogden. needs MFM consult. Residual codes; unclassified (1 source) Family history of urological disorder; Translations: [Family history of other diseases of the genitourinary system] Onset: 3 Episodic Residual codes; unclassified (20 sources) Infertile 07-12-2024 Episodic Comment on above: SA-nl, normal pelvic US and TSH Nl HSG 07/2023 Residual codes; unclassified (20 sources) Past history of procedure; Translations: [Personal [...] Test Name Value Interpretation Reference Range Facility [id number] 05-10-2025 B2 Glyco I IgG Ab <9 Normal 0-20 [facility] Comment on above: Performed By: #### A 1C, [id number], [id number], [id number] #### [facility] [address] [place] [address] B2 Glyco I IgM Ab <9 Normal 0-32 [facility] Comment on above: Result Comment: Perf ormed At: [facility] [address] [id number] Quentin Coburn PhD Ph:[phone] Performed By: #### A 1C, 200723, [id number], [id number] #### [facility] [address] [place] [id number] CARDIGon 05-10-2025 Cardiolipin IgG <9 Normal 0-14 [facility] Comment on above: Result Comment: Nega tive: <15 Indeterminate: 15 - 20 Low-Med Positive: >20 - 80 High Positive: >80 Performed At: [address] [id number] Quentin Coburn PhD Ph:[phone] Performed By: #### A 1C, [id number], [id number], [id number] #### [address] [address] CARDIMon 05-10-2025 Cardiolipin IgM <9 Normal 0-12 [facility] Comment on above: Result Comment: Nega tive: <13 Indeterminate: 13 - 20 Low-Med Positive: >20 - 80 High Positive: >80 Performed At: [facility] [id number] [place], [place] [id number] Quentin Coburn PhD Ph:[phone] Performed By: #### A 1C, 962258, 057271, [id number] #### [address] [address] A1Con 05-08-2025 Glucose [Mass/Vol] 111 mg/dL Normal [facility] Comment on above: Result Comment: Isabelle mated Average Glucose calculated by equation ((28.7xA1C)-46.7) Estimated average glucose (eAG) is a calculated value from Hemoglobin A1C and is sales and marketing representative of the average blood glucose level in the last 2-3 month period. Normal range: less than 114 mg/dL Performed By: #### A 1C, 448886, 460510, 344896 #### [address] [address] HbA1c (Bld) [Mass fraction] 5.5 % Normal 4.0-6.0 [facility] Comment on above: Performed By: #### A 1C, 450728, 652511, [id number] #### [address] [address] Progress Noteon 05-08-2025 Guest Relations Manager Authentication Interface Message Text [facility]NAL [facility] - at [place] DR. OAKES OFFICE VISIT NOTE The concluding Summary Communication to Casualty Insurance Claim Adjuster is at the end of this office note. It is placed on the obstetric ultrasound report if concluded before the office visit; alternatively, it is faxed as a letter communication. DOS: 05/08/2025 05/08/2025 Chief Complaint She presents for comprehensive review of her maternal -obstetric- risks in this to fully contextualize the evaluation and management of risks as listed in problem list - focussed assessments. History of Present Illness Marixa is a 29 y.o. female at 21w5d. Here for an office visit and the history of present illness is itemized under individualized problem list assessments below. Obstetric History OB History Para Term AB Living 2 1 1 SAB IAB Ectopic Multiple Live Births # Outcome Date GA Lbr Ernst/2nd Weight Sex Type Anes PTL Lv 2 Current 1 07/2023 20w0d M Vag-Spont FD - I reviewed it at patient encounter and pertinent aspects are integrated into the below problem list-based assessment Past Medical History Past Medical History: Diagnosis Date Crohn's disease Crohns Disease Endometriosis History of blood transfusion Infertility, female IVF Latent tuberculosis x1 pos test, several neg since then; seen by ID, treated Obesity BMI-33 PCOS (polycystic ovarian syndrome) Ulcerative colitis - I reviewed it at patient encounter and pertinent aspects are integrated into the below problem list-based assessment Social History - I reviewed it at patient encounter and pertinent aspects are integrated into the below problem list-based assessment Family History - I reviewed it at patient encounter, including screening genetic pedigree as available, and pertinent aspects are integrated into the below problem list-based assessment Medications and Allergies . Allergies[1] - I reviewed it at patient encounter and are integrated into the below problem list-based assessment. Allergies were reviewed Laboratory Studies and Imaging studies - I reviewed it at patient encounter and pertinent aspects are integrated into assessments. Vitals BP 136/71 Pulse 88 Resp 18 Ht 160 cm Wt 92.5 kg (203 lb 14.4 oz) LMP 10/19/2024 SpO2 98% BMI 36.12 kg/m - heart rate as per imaging report today, as applicable and available. ASSESSMENT AND PLAN After integrating maternal and obstetric and considerations, my recommendations are as assembled. Active Non-Hospital Problems Diagnosis Date Noted Care plan discussed with patient 05/08/2025 05/08/2025 - Office Visit - MD Sabino: 21w5d . 1. Collaborations: a. Ongoing Care with: Dr. Leach. b. [facility] co-management visits scheduled with [facility] imaging visits. c. She is transferring her gastroenterology care to [facility] on 05/10/2025 and will share this counseling note with them. 2. Current Medications: a. vitamin daily. b. Low-dose aspirin 81 mg daily. c. Stelara 90 mg every 8 weeks subcutaneous 3. Notations to guide treatments by gastroenterology in : a. Corticosteroids can be used for flares with monitoring for gestational diabetes and growth. b. Aminosalicylates (Mesalazine (mesalamine, 5-aminosalicylic acid/5-ASA), sulfasalazine (sulfa drug that is metabolized to 5-ASA and sulfapyridine and requires additional folic acid supplementation in ), olsalazine and lastly balsalazide (both prodrugs that deliver 5-ASA specifically to the colon via bacterial breakdown) and thiopurines (azathioprine, 6-mercaptopurine and thioguanine) are considered low risk and should be continued during to maintain remission. c. Anti-TNF agents (infliximab, adalimumab, certolizumab): are widely used and considered safe through all trimesters. Certolizumab, in particular, appears to have minimal placental transfer, but infliximab and adalimumab may be more effective for disease control.. Vedolizumab (integrin inhibitor in gut) and ustekinumab/Stelara (interleukin-12/23 blockers) are newer biologics and also safe in . 3. Tests ordered by us today -the results will be shared with the patient and your office upon receipt: a. APLS workup- Lupus anticoagulant, ACL IgG/IgM and Beta2 GP IgG/IgM. b. Hemoglobin A1c given history of PCOS and discontinuation of metformin during . 4. [facility] follow-up ultrasounds scheduled: She has echocardiography with ultrasound scheduled on 05/18/2025 and subsequent to that ultrasound for interval growth assessment at 28/32/36 weeks with comanagement with our [employer] [facility]. 5. Antepartum Testing: Weekly NST in the office at 36 weeks will be appropriate. 6. Delivery-planned at [place]: As per standard obstetric practice and anticipate a term vaginal delivery at 39+0 weeks +3 days for scheduling purpos (more content not included)... Normal [facility] - Chemistry and C hemistry - challengeOrdered By: Carmen Lugo on 05-01-2025 Glucose Ql (U) Negative [facility] - UrinalysisOrder ed By: Carmen Lugo on 05-01-2025 Protein Ql (U) Negative [facility] Office Visit Reporton 05-01-2025 [facility] Office Visit Report [facility] [address], [address] [place] [address] OFFICE VISIT Date of Service: 05/01/25 MR#: [id number] Acct: [id number] Name: MARIXA AMOS Rep #: [id number] : 1995 Provider: Dr. Carmen dixon MD Age/Sex: 29/F Location: [facility] Status: Signed Intake Vital Signs 03/09/25 11:36 04/06/25 13:00 05/01/25 14:59 Height 5 ft 3 in 5 ft 3 in 5 ft 3 in Weight: 200 lb 7 oz BMI 35.5 BP 125/78 H Intake Visit Reasons: 21wk ob *IVF Associate Relations Specialist Required: No Is patient in pain?: No Allergies No Known Allergies Allergy (Verified 05/01/25 14:58) Medications ???Medication ???Instructions ???Recorded ???Confirmed ???Type ustekinumab 90 mg/mL subcutaneous 90 mg subcut Q8W #1 mL 07/07/24 0 05/01/25 Rx syringe (Stelara) aspirin 81 mg tablet,delayed 81 mg PO QDAY 01/01/25 05/01/25 Hi story release (Adult Aspirin Regimen) multivit-min no.71-iron fum 28 cap PO 01/26/25 05/01/25 History mg-folate no.1 1 mg-dha 300 mg capsule (PNV-[place]) ondansetron 4 mg disintegrating 4 mg PO Q6H PRN nausea and 5 05/01/25 Rx tablet vomiting #30 tabs famotidine 40 mg tablet 40 mg PO BID #60 tabs 04/27/2510/24 Rx Last Menstrual Period: 10/19/24 Zika: Zika virus screening: Negative : No PFSH PFSH Medical History (Updated 05/01/25 @ 15:[address] 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 Date Name GA/Weeks Outcome Route Bth Weight Gen Labor Lgth Anesthesia Del Locatn Provider FOB Unknown 07/2023-Julio 20 still Male Delivery Date: Last Updated by: Jacquie Durán demise, possible subchorionic hematoma HPI 21wk ob *IVF Details: MARIXA AMOS is a 29 year old who presents for routine OB visit. OB Visit GIL Calculator Estimated Delivery Date Method Current WG Current Estimate 09/13/25 Manual 20w 5d Other Estimates 09/11/25 Ultrasound #1 21w 0d Expected Delivery Route/Plan Labor Preferences- CB/BF classes: [...] lb 8 oz (+8 oz) 118/70 -???-???-???-???-???-??? -???-???-???-???-???-??? - 185 -???-???-???-???-???-??? -???-???-???-???-???-??? - KW- CRL cons with dates. Declines NIPT. IVF . had car (more content not included)... Normal [facility] - Chemistry and C hemistry - challengeOrdered By: Iesha Lo on 04-06-2025 Glucose Ql (U) Negative [facility] - UrinalysisOrder ed By: Iesha Lo on 04-06-2025 Protein Ql (U) Negative [facility] Office Visit Reporton 04-06-2025 Soa Architect Office Visit Report [facility] [address], [address] [place] [address] OFFICE VISIT Date of Service: 04/06/25 MR#: [id number] Acct: [id number] Name: MARIXA AMOS Rep #: [id number] : 1995 Provider: STEFANIE Figueroa ams Age/Sex: 29/F Location: [facility] [place] [place] Status: Signed Intake Vital Signs 02/06/25 08:17 03/09/25 11:36 04/06/25 13:00 Height 5 ft 3 in 5 ft 3 in 5 ft 3 in Weight: 191 lb 4 oz 194 lb 9 oz BMI 33.8 34.4 BP 129/85 H 138/79 H Intake Visit Reasons: 17 wk ob *IVF Chief Complaint: 17wk OB Associate Relations Specialist Required: No Is patient in pain?: No Allergies No Known Allergies Allergy (Verified 04/06/25 12:59) Medications ???Medication ???Instructions ???Recorded ???Confirmed ???Type ustekinumab 90 mg/mL subcutaneous 90 mg subcut Q8W #1 mL 07/07/24 0 04/06/25 Rx syringe (Stelara) aspirin 81 mg tablet,delayed 81 mg PO QDAY 01/01/25 04/06/25 Hi story release (Adult Aspirin Regimen) multivit-min no.71-iron fum 28 cap PO 01/26/25 04/06/25 History mg-folate no.1 1 mg-dha 300 mg capsule (PNV-[place]) ondansetron 4 mg disintegrating 4 mg PO Q6H PRN nausea and 5 04/06/25 Rx tablet vomiting #30 tabs Last Menstrual Period: 10/19/24 : No PFSH PFSH Medical History Crohn's disease Obesity (BMI 30.0-34.9) Other obesity Rectal bleeding [...] 3-4 times per week duration: 45-60 minutes/day cathy/moravian: None seatbelt use: always do you feel safe at home: Yes 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 Date Name GA/Weeks Outcome Route Bth Weight Infant Gen Labor Lgth Anesthesia Del Locatn Provider FOB Unknown 07/2023-Julio 20 still Male Delivery Date: Last Updated by: Jacquie Durán demise, possible subchorionic hematoma HPI 17 wk ob *IVF Details: MARIXA AMOS is a 29 year old who presents for routine OB visit. OB Visit GIL Calculator Estimated Delivery Date Method Current WG Current Estimate 09/13/25 Manual 17w 1d Other Estimates 09/11/25 Ultrasound #1 17w 3d Expected Delivery Route/Plan Labor Preferences- CB/BF [...] lb 8 oz (+8 oz) 118/70 -???-???-???-???-???-??? -???-???-???-???-???-??? - 185 -???-???-???-???-???-??? -???-???-???-???-???-??? - KW- CRL cons with dates. Declines NIPT. IVF . had carrier screening done with [facility] 02/23/25 -???-???-???-???-???-??? -???-???-???-???-???- (more content not included)... Normal [facility] CRPon 03-10-2025 C-REACTIVE PROT 8.03 mg/L High 0.0-3.0 [facility] Comment on above: Performed By: #### L 101.9900, L501.6710 ####[facility] [address] [place], [address] Erythrocyte Sed Rateon 03-10 SED RATE 25 mm/hr Normal 0-30 [facility] Comment on above: Performed By: #### L 101.9900, L501.6710 ####[facility] [address] [place], [place], [phone] Erythrocyte sedimentation ra teOrdered By: Domo Weaver on 03-10-2025 ESR (Bld) [Velocity] 25 mm/h 0-30 [facility] Ferritinon 03-10-2025 Ferritin [Mass/Vol] 61 ng/mL Normal 22-378 [facility] Comment on above: Performed By: #### L 503.0106, L503.6550, L503.6030 ####[facility] [address] [place], [place], [phone] Iron measurement (mass/mass) Ordered By: Carmen Lugo on 03-10-2025 Iron (Unsp spec) [Mass/Mass] 102 ug/dL 50-170 [facility] Iron+Iron Binding Capacityon 03-10-2025 Iron [Mass/Vol] 102 ug/dL Normal 50-170 [facility] Comment on above: Performed By: #### L 503.0106, L503.6550, L503.6030 ####[facility] [address] [place], [place], [phone] IRON SATURATION 29.0 Normal 13-59 [facility] Comment on above: Performed By: #### L 503.0106, L503.6550, L503.6030 ####[facility] [address] [place], [address] TIBC 353 ug/dL Normal 250-450 [facility] Comment on above: Performed By: #### L 503.0106, L503.6550, L503.6030 ####[facility] [address] [place], [address] UIBC 251 ug/dL Normal 228-428 [facility] Comment on above: Performed By: #### L 503.0106, L503.6550, L503.6030 ####[facility] [address] [place], [address] No Panel InformationOrdered By: Carmen Lugo on 03-10-2025 Unsaturated Iron Binding Capacity 251 ug/dL 228-428 [facility] Serum or plasma C reactive p rotein measurement (mass/volume)Ordered By: Domo Weaver on 03-10-2025 CRP [Mass/Vol] 8.03 mg/L High 0.0-3.0 [facility] Serum or plasma ferritin guerita surement (mass/volume)Ordered By: Carmen Lugo on 03-10-2025 Ferritin [Mass/Vol] 61 ng/mL 22-378 [facility] Serum or plasma iron saturat ion measurement (mass fraction)Ordered By: Carmen Lugo on 03-10-2025 Iron saturation [Mass fraction] 29.0 % 13-59 [facility] Vitamin B12on 03-10-2025 Cobalamin (Vitamin B12) [Mass/Vol] 614 pg/mL Normal 180-914 [facility] Comment on above: Performed By: #### L 503.0106, L503.6550, L503.6030 ####[facility] [address] [place], [address] Vitamin B12 ser/plasOrdered By: Carmen Lugo on 03-10-2025 Cobalamin (Vitamin B12) [Mass/Vol] 614 pg/mL 180-914 [facility] - Chemistry and C hemistry - challengeOrdered By: Carmen Lugo on 03-09-2025 Glucose Ql (U) Negative [facility] - UrinalysisOrder ed By: Carmen Lugo on 03-09-2025 Protein Ql (U) Negative [facility] [employer] Office Visit Reporton 03-09-2025 Soa Architect Office Visit Report [facility] [address], [address] [place] [address] OFFICE VISIT Date of Service: 03/09/25 MR#: [id number] Acct: [id number] Name: MARIXA AMOS Rep #: [id number] : 1995 Provider: Dr. Carmen dixon MD Age/Sex: 29/F Location: [facility] Status: Signed Intake Vital Signs 01/25/25 14:45 02/23/25 11:01 03/09/25 11:36 Height 5 ft 3 in 5 ft 3 in Weight: 191 lb 4 oz BMI 33.8 BP 129/85 H Intake Visit Reasons: 13 WK OB *IVF Associate Relations Specialist Required: No Is patient in pain?: No Allergies No Known Allergies Allergy (Verified 03/09/25 11:30) Medications ???Medication ???Instructions ???Recorded ???Confirmed ???Type ustekinumab 90 mg/mL subcutaneous 90 mg subcut Q8W #1 mL 07/07/24 0 03/09/25 Rx syringe (Stelara) aspirin 81 mg tablet,delayed 81 mg PO QDAY 01/01/25 03/09/25 Hi story release (Adult Aspirin Regimen) multivit-min no.71-iron fum 28 cap PO 01/26/25 03/09/25 History mg-folate no.1 1 mg-dha 300 mg capsule (PNV-[place]) ondansetron 4 mg disintegrating 4 mg PO Q6H PRN nausea and 5 03/09/25 Rx tablet vomiting #30 tabs Last Menstrual Period: 10/19/24 Zika: Zika virus screening: Negative : No PFSH PFSH Medical History (Updated 03/09/25 @ 15:[address] 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 Date Name GA/Weeks Outcome Route Bth Weight Infant Gen Labor Lgth Anesthesia Del [facility] Provider FOB Unknown 07/2023-Julio 20 still Male Delivery Date: Last Updated by: Jacquie Durán demise, possible subchorionic hematoma HPI 13 WK OB *IVF Details: MARIXA AMOS is a 29 year old who presents for routine OB visit. OB Visit GIL Calculator Estimated Delivery Date Method Current WG Current Estimate 09/13/25 Manual 13w 1d Other Estimates 09/11/25 Ultrasound #1 13w 3d Expected Delivery Route/Plan Labor Preferences- CB/BF [...] lb 8 oz (+8 oz) 118/70 -???-???-???-???-???-??? -???-???-???-???-???-??? - 185 -???-???-???-???-???-??? -???-???-???-???-???-??? - KW- CRL cons with dates. Declines NIPT. IVF . had carrier screening done with [facility] 02/23/25 -???-???-???-???-???-??? -???-???-???-? (more content not included)... Normal [facility] [employer] Office Visit Reporton 02-23-2025 Soa Architect Office Visit Report [facility] [address], [address] [place] [address] OFFICE VISIT Date of Service: 02/23/25 MR#: [id number] Acct: [id number] Name: MARIXA AMOS Rep #: [id number] : 1995 Provider: Dr. 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 -???-??? (more content not included)... Normal [facility] L3410.9992on 02-16-2025 [facility] Misc. COMMENT Normal . [facility] Comment on above: Order Comment: [id number] 4Stelara levels Result Comment: Test Ordered: [id number] Ustekinumab Drug + Antibody Ustekinumab 3.9 ug/mL [...] Advances in AIBD. May 2017. 3. Ariana Batres et al. Clin Gastroenterol Hepatol 2017;15: 5274-1245. 4. Tessa MORA et al. Br J Dermatol;2015:173;855-857. 5. Grover H, et al. PLOS ONE DOI;10:1371/journal.pone.3957651. 6. Allan L et al. Br J Dermatol 2014;170:261-273. These tests were developed and their performance characteristics determined by [facility]. They have not been cleared or approved by the Food and Drug Administration. However, both drug and anti-drug antibody assays have been developed and validated in accordance with FDA Guidance for Industry documents: Bioanalytical Method Validation (2013) and Assay Development and Validation for Immunogenicity Testing of Therapeutic Protein Products (2016). Performed at: [facility] [address] [place] [id number] [employer] Consultant: Gregg Roberto MD, Phone: [phone] Performed at: [address] [id number] [employer] Consultant: Almas Saavedra PhD, Phone: [phone] Performed By: #### L 500.4050, L300.3900, L100.0100, L101.9900, L3410.9992, L501.6710 ####[facility] [address] [place], [place], [phone] Chlamydia/GC ALEKSEY aptimaon CHLAMY,NUC ACID Negative Normal Negative [facility] Comment on above: Performed By: #### M 100.2200, L7000.1800 #### [facility] [address] [place], [address] GC BY NUC ACID Negative Normal Negative [facility] Comment on above: Result Comment: Perf ormed at: =[address] [id number] [employer] Consultant: Rose Haney MD, Phone: [phone] Performed By: #### M 100.2200, L7000.1800 #### [facility] [address] [place], [place], [phone] Urine Cultureon 02-07-2025 [facility] Culture exhibits no growth. Normal [facility] Comment on above: Performed By: #### M 100.2200, L7000.1800 #### [facility] [address] [place], [address] Absolute lymphocyte countOrd ered By: Carmen Zepedagerardo on 02-06-2025 Lymphocytes Auto (Unsp spec) [#/Vol] 1.57 10*3/uL 0.83-4.51 [facility] Absolute neutrophil countOrd ered By: Carmen Morrowcalvin on 02-06-2025 Neutrophils (Bld) [#/Vol] 9.8 10*3/uL High 2.0-7.7 [facility] Automated lymphocyte count a s percentage of total leukocytesOrdered By: Carmen Morrowcalvin on 02-06-2025 Lymphocytes/100 WBC Auto (Unsp spec) 12.6 % Low 19-41 [facility] Basophil percentageOrdered B y: Carmen Lugo on 02-06-2025 Basophils/100 WBC (Bld) 0.4 % 0-1 [facility] CBC W/Diff, Automatedon 01-28-2024 PLT EST A Normal ADEQ [facility] Comment on above: Performed By: #### L 501.9985, L3890.6006, L3890.6102, L3890.6301, BTS, L100.0100, L509.4006, L509.8002 ####[facility] [address] [place], [place], [phone] RED CELL MORPH NORM C+C Normal NORM C C [facility] Comment on above: Performed By: #### L 501.9985, L3890.6006, L3890.6102, L3890.6301, BTS, L100.0100, L509.4006, L509.8002 ####[facility] [address] [place], [address] Chlamydia trachomatis rRNA d etection by probe and target amplification methodOrdered By: Carmen Morrowcalvin on 02-06-2025 C. trachomatis rRNA ALEKSEY+probe Ql (Unsp spec) Negative Negative [facility] Eosinophil percentageOrdered By: Carmen Morrowcalvin on 02-06-2025 Eosinophils/100 WBC (Bld) 1.7 % 0-5 [facility] Erythrocyte distribution wid th ratioOrdered By: Carmen Morrowcalvin on 02-06-2025 Erythrocyte distribution width (RBC) [Ratio] 13.1 % 11.6-14.6 [facility] Erythrocyte distribution wid th standard deviationOrdered By: Carmen Morrowcalvin on 02-06-2025 Erythrocyte distribution width (RBC) [Ratio] 43.2 fl 35.1-43.9 [facility] Erythrocyte morphology asses smentOrdered By: Carmen Manfred on 02-06-2025 RBC morphology finding Nom (Bld) NORM C+C NORMAL NORM C&C [facility] HIVon 02-06-2025 HIV Non-Reactive Normal Nonreactive [facility] Comment on above: Result Comment: Non- Reactive Reactive Repeatedly reactive samples must be confirmed according to CDC recommended confirmatory algorithms. The subresults for either HIVAG or AHIV can be used as an aid in the selection of the confirmation algorithm for reactive samples. Send out specimens with Reactive results to [facility] for confirmation. Order the HIV antibody detection and differentiation: lc#[id number] Performed By: #### L 501.9985, L3890.6006, L3890.6102, L3890.6301, BTS, L100.0100, L509.4006, L509.8002 ####[facility] [address] [place], [address] Hematocrit Auto (Bld) [Volum e fraction]Ordered By: Carmen Lugo on 02-06-2025 Hematocrit (Bld) [Volume fraction] 34.7 % Low 37-47 [facility] Hemoglobin A1con 02-06-2025 HbA1c (Bld) [Mass fraction] 5.5 % Normal <=5.6 [facility] Comment on above: Result Comment: Norm al < 5.7 % Prediabetic 5.7 - 6.4 % Diabetic >or= 6.5 % Please note range changes. Performed By: #### L 501.9985, L3890.6006, L3890.6102, L3890.6301, BTS, L100.0100, L509.4006, L509.8002 ####[facility] [address] [place], [place], [phone] Hemoglobin A1c percentageOrd ered By: Carmen Lugo on 02-06-2025 HbA1c (Bld) [Mass fraction] 5.5 % <5.7 [facility] Comment on above: Normal < 5.7 % Predi abetic 5.7 - 6.4 % Diabetic >or= 6.5 % Please note range changes. Hemoglobin measurementOrdere d By: Carmen Lugo on 02-06-2025 Hemoglobin (Bld) [Mass/Vol] 11.5 g/dL Low 12.0-15.0 [facility] Hepatitis C Antibodyon 02-06 Hepatitis C Ab Non-Reactive Normal Nonreactive [facility] Comment on above: Result Comment: Reac tive: Presumptive evidence of antibodies to HCV. Follow CDC recommendations for supplemental testing. Non-Reactive: Antibodies to HCV were not detected; does not exclude the possibility of exposure to HCV Reactive Results are presumptive evidence of antibodies to HCV. Follow CDC recommendations for supplemental testing. Order confirmation testing: HCV Quant by PCR testing - HCVPCR #[id number] Non Reactive: < 0.8 Equivocal: >/= 0.8 to < 1.0 Reactive: >/= 1.0 The CDC requires that a reactive/equivocal HCV antibody result be sent out for confirmation. HCV Quant by PCR testing. Performed By: #### L 501.9985, L3890.6006, L3890.6102, L3890.6301, BTS, L100.0100, L509.4006, L509.8002 ####[facility] [address] [place], [address] Immature granulocytes/100 WB C Auto (Bld)Ordered By: Carmen Lugo on 02-06-2025 Immature granulocytes/100 WBC (Bld) 0.600 % 0.0-0.9 [facility] Comment on above: IG% - Immature Granu locytes (promyelocytes, myelocytes and metamyelocytes) > 1% indicates that a LEFT SHIFT is Present. L3890.6102on 02-06-2025 HEP B Surf Ag Non-Reactive Normal Nonreactive [facility] Comment on above: Result Comment: Reac tive: Presumptive evidence of HBV. Repeatedly reactive samples must be confirmed using a neutralization test ([employer] HBsAg Confirmatory Test) Non-Reactive: HBsAg not detected; does not exclude the possibility of exposure to HBV Performed By: #### L 501.9985, L3890.6006, L3890.6102, L3890.6301, BTS, L100.0100, L509.4006, L509.8002 ####[facility] [address] [place], [place], [id number] L509.4006on 02-06-2025 Rubella IgG REAC Normal Nonreactive [facility] Comment on above: Result Comment: Anti body Result: Interpretation Non-Reactive: Non-Immune Reactive: Immune The following results were obtained with the [employer] Rubella IgG assay. Results from assays of other manufacturers cannot be used interchangeably. Performed By: #### L 501.9985, L3890.6006, L3890.6102, L3890.6301, BTS, L100.0100, L509.4006, L509.8002 ####[facility] [address] [place], [place], [phone] Laboratory - Microbiology an d Antimicrobial susceptibilityOrdered By: Carmen Lugo on 02-06-2025 HBV surface Ag Ql (S) Non-Reactive Nonreactive [facility] Comment on above: Reactive: Presumptiv e evidence of HBV. Repeatedly reactive samples must be confirmed using a neutralization test ([employer] HBsAg Confirmatory Test)Non-Reactive: HBsAg not detected; does not exclude the possibility of exposure to HBV MCV (mean corpuscular volume ) determinationOrdered By: Carmen Lugo on 02-06-2025 MCV (RBC) [Entitic vol] 91.3 fL 81-99 [facility] Mean corpuscular hemoglobin (MCH) determinationOrdered By: Carmen Lugo on 02-06-2025 MCH (RBC) [Entitic mass] 30.3 pg 27.0-32.0 [facility] Mean corpuscular hemoglobin concentration (MCHC) determinationOrdered By: Carmen Lugo on 02-06-2025 MCHC (RBC) [Mass/Vol] 33.1 g/dL 32-36 [facility] Mean platelet volume determi nationOrdered By: Carmen Lugo on 02-06-2025 Platelet mean volume (Bld) [Entitic vol] 11.4 fL 6.2-12.0 [facility] Monocyte percentageOrdered B y: Carmen Lugo on 02-06-2025 Monocytes/100 WBC (Bld) 5.8 % 0-10 [facility] Neisseria gonorrhoeae nuclei c acid detection by amplified probe techniqueOrdered By: Carmen Lugo on 02-06-2025 N. gonorrhoeae DNA ALEKSEY+probe Ql (Unsp spec) Negative Negative [facility] Comment on above: Performed at: =G - L [address] [id number] Director: Rose Haney MD, Phone: [phone] Neutrophil percentageOrdered By: Carmen Lugo on 02-06-2025 Neutrophils/100 WBC (Bld) 78.9 % High 47-70 [facility] No Panel InformationOrdered By: Carmen Lugo on 02-06-2025 HIV (1&2) Antibody Non-Reactive Nonreactive [facility] Comment on above: Non-ReactiveReactive Repeatedly reactive samples must be confirmed according to CDC recommended confirmatory algorithms. The subresults for either HIVAG or AHIV can be used as an aid in the selection of the confirmation algorithm for reactive samples.Send out specimens with Reactive results to [facility] for confirmation.Order the HIV antibody detection and differentiation: #[id number] Nucleated red blood cell per centageOrdered By: Carmen Luog on 02-06-2025 Nucleated RBC/100 WBC (Bld) [Ratio] 0 % 0-5 [facility] [employer] Office Visit Reporton 02-06-2025 Soa Architect Office Visit Report [facility] [address] [place] [address], [address] [place] [address] OFFICE VISIT Date of Service: 02/06/25 MR#: [id number] Acct: [id number] Name: MARIXA AMOS Rep #: [id number] : 1995 Provider: STEFANIE Figueroa ams Age/Sex: 29/F Location: [facility] [place] [place] Status: Signed Intake Vital Signs 07/12/24 08:32 02/02/25 15:25 02/06/25 08:17 Height 5 ft 3 in 5 ft 3 in 5 ft 3 in Weight: 185 lb 8 oz BMI 32.8 BP 118/70 Intake Visit Reasons: *EST* NOB IVF 12/26, GIL 09/13/25 Associate Relations Specialist Required: No Is patient in pain?: No [...] mg-folate no.1 1 mg-dha 300 mg capsule (PNV-[place]) prednisone 10 mg tablet 10 mg PO [...] 3-4 times per week duration: 45-60 minutes/day cathy/moravian: None seatbelt use: always do you feel safe at home: Yes 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 Normal [facility] Platelet countOrdered By: Uziel Lugo on 02-06-2025 Platelets (Bld) [#/Vol] 319 10*3/uL 150-450 [facility] Platelet estimateOrdered By: Carmen Lugo on 02-06-2025 Platelets LM Ql (Bld) A ADEQ [facility] [facility] RBC Auto (Bld) [#/Vol]Ordere d By: Carmen Lugo on 02-06-2025 RBC (Bld) [#/Vol] 3.80 10*6/uL Low 4.2-5.4 [facility] Syphilis Antibodieson 2024 Syphilis Abs Non-Reactive Normal Nonreactive [facility] Comment on above: Performed By: #### L 501.9985, L3890.6006, L3890.6102, L3890.6301, BTS, L100.0100, L509.4006, L509.8002 ####[facility] [address] [place], [place], [phone] Type AND Screenon 02-06-2025 ABO and Rh group Nom (Bld) Blood group B Rh(D) positive Normal [facility] Comment on above: Order Comment: PN Performed By: #### L 501.9985, L3890.6006, L3890.6102, L3890.6301, BTS, L100.0100, L509.4006, L509.8002 ####[facility] [address] [place], [place], [phone] Urine cultureOrdered By: Torin Lugo on 02-06-2025 Bacteria identified Cx Nom (U) Culture exhibits no growth. [facility] White blood cell (WBC) count Ordered By: Carmen Lugo on 02-06-2025 WBC (Bld) [#/Vol] 12.5 10*3/uL High 4.4-11.0 [facility] Absolute lymphocyte countOrd ered By: Domo Weaver on 02-02-2025 Lymphocytes Auto (Unsp spec) [#/Vol] 1.71 10*3/uL 0.83-4.51 [facility] Absolute neutrophil countOrd ered By: Domo Weaver on 02-02-2025 Neutrophils (Bld) [#/Vol] 7.6 10*3/uL 2.0-7.7 [facility] Anion gap in Serum or Plasma Ordered By: Domo Weaver on 02-02-2025 Anion gap [Moles/Vol] 13 mmol/L 5-15 [facility] Automated lymphocyte count a s percentage of total leukocytesOrdered By: Domo Weaver on 02-02-2025 Lymphocytes/100 WBC Auto (Unsp spec) 17.3 % Low 19-41 [facility] BUN/creatinine ratioOrdered By: Domo Weaver on 02-02-2025 Urea nitrogen/Creatinine [Mass ratio] 16.4 mg/mg 10-20 [facility] Basophil percentageOrdered B y: Domo Weaver on 02-02-2025 Basophils/100 WBC (Bld) 0.4 % 0-1 [facility] Bilirubin, totalOrdered By: Domo Friend on 02-02-2025 Bilirubin [Mass/Vol] mg/dL 0.00-1.30 [facility] CBC W/Diff, Automatedon Absolute Lymph 1.71 X10 3/uL Normal 0.83-4.51 [facility] Comment on above: Performed By: #### L 500.4050, L300.3900, L100.0100, L101.9900, L3410.9992, L501.6710 ####[facility] [address] [place], [address] Absolute Neut 7.6 X10 3/uL Normal 2.0-7.7 [facility] Comment on above: Performed By: #### L 500.4050, L300.3900, L100.0100, L101.9900, L3410.9992, L501.6710 ####[facility] [address] [place], [address] Basophils/100 WBC (Bld) 0.4 % Normal 0-1 [facility] Comment on above: Performed By: #### L 500.4050, L300.3900, L100.0100, L101.9900, L3410.9992, L501.6710 ####[facility] [address] [place], [address] Eosinophils/100 WBC (Bld) 0.7 % Normal 0-5 [facility] Comment on above: Performed By: #### L 500.4050, L300.3900, L100.0100, L101.9900, L3410.9992, L501.6710 ####[facility] [address] [place], [address] Erythrocyte distribution width (RBC) [Ratio] 12.7 % Normal 11.6-14.6 [facility] Comment on above: Performed By: #### L 500.4050, L300.3900, L100.0100, L101.9900, L3410.9992, L501.6710 ####[facility] [address] [place], [address] Hematocrit (Bld) [Volume fraction] 33.6 % Low 37-47 [facility] Comment on above: Performed By: #### L 500.4050, L300.3900, L100.0100, L101.9900, L3410.9992, L501.6710 ####[facility] [address] [place], [address] Hemoglobin (Bld) [Mass/Vol] 11.2 g/dL Low 12.0-15.0 [facility] Comment on above: Performed By: #### L 500.4050, L300.3900, L100.0100, L101.9900, L3410.9992, L501.6710 ####[facility] [address] [place], [address] IG% 0.500 Normal 0.0-0.9 [facility] Comment on above: Result Comment: IG% - Immature Granulocytes (promyelocytes, myelocytes and metamyelocytes) > 1% indicates that a LEFT SHIFT is Present. Performed By: #### L 500.4050, L300.3900, L100.0100, L101.9900, L3410.9992, L501.6710 ####[facility] [address] [place], [address] Lymphocytes/100 WBC (Bld) 17.3 % Low 19-41 [facility] Comment on above: Performed By: #### L 500.4050, L300.3900, L100.0100, L101.9900, L3410.9992, L501.6710 ####[facility] [address] [place], [address] MCH (RBC) [Entitic mass] 29.9 pg Normal 27.0-32.0 [facility] Comment on above: Performed By: #### L 500.4050, L300.3900, L100.0100, L101.9900, L3410.9992, L501.6710 ####[facility] [address] [place], [address] MCHC (RBC) [Mass/Vol] 33.3 g/dL Normal 32-36 [facility] Comment on above: Performed By: #### L 500.4050, L300.3900, L100.0100, L101.9900, L3410.9992, L501.6710 ####[facility] [address] [place], [address] MCV (RBC) [Entitic vol] 89.6 fL Normal 81-99 [facility] Comment on above: Performed By: #### L 500.4050, L300.3900, L100.0100, L101.9900, L3410.9992, L501.6710 ####[facility] [address] [place], [address] Monocytes/100 WBC (Bld) 4.5 % Normal 0-10 [facility] Comment on above: Performed By: #### L 500.4050, L300.3900, L100.0100, L101.9900, L3410.9992, L501.6710 ####[facility] [address] [place], [address] Neutrophils/100 WBC (Bld) 76.6 % High 47-70 [facility] Comment on above: Performed By: #### L 500.4050, L300.3900, L100.0100, L101.9900, L3410.9992, L501.6710 ####[facility] [address] [place], [address] Nucleated RBC (Bld) [#/Vol] 0 10*3/uL Normal 0-5 [facility] Comment on above: Performed By: #### L 500.4050, L300.3900, L100.0100, L101.9900, L3410.9992, L501.6710 ####[facility] [address] [place], [address] Platelet mean volume (Bld) [Entitic vol] 10.2 fL Normal 6.2-12.0 [facility] Comment on above: Performed By: #### L 500.4050, L300.3900, L100.0100, L101.9900, L3410.9992, L501.6710 ####[facility] [address] [place], [address] Platelets (Bld) [#/Vol] 388 10*3/uL Normal 150-450 [facility] Comment on above: Performed By: #### L 500.4050, L300.3900, L100.0100, L101.9900, L3410.9992, L501.6710 ####[facility] [address] [place], [address] RBC (Bld) [#/Vol] 3.75 10*6/uL Low 4.2-5.4 [facility] Comment on above: Performed By: #### L 500.4050, L300.3900, L100.0100, L101.9900, L3410.9992, L501.6710 ####[facility] [address] [place], [address] RDW SD 41.8 fl Normal 35.1-43.9 [facility] Comment on above: Performed By: #### L 500.4050, L300.3900, L100.0100, L101.9900, L3410.9992, L501.6710 ####[facility] [address] [place], [address] WBC (Bld) [#/Vol] 9.9 10*3/uL Normal 4.4-11.0 [facility] Comment on above: Performed By: #### L 500.4050, L300.3900, L100.0100, L101.9900, L3410.9992, L501.6710 ####[facility] [address] [place], [address] CRPon 02-02-2025 C-REACTIVE PROT 11.70 mg/L High 0.0-3.0 [facility] Comment on above: Performed By: #### L 500.4050, L300.3900, L100.0100, L101.9900, L3410.9992, L501.6710 ####[facility] [address] [place], [address] Carbon dioxide, total [Moles /volume] in Central venous bloodOrdered By: Domo Weaver on 02-02-2025 CO2 [Moles/Vol] 18.9 mmol/L Low 21.0-32.0 [facility] Chloride assayOrdered By: Ra clarita Weaver on 02-02-2025 Chloride [Moles/Vol] 103 mmol/L 98-108 [facility] Comprehensive Metabolic Prof ilon 02-02-2025 Albumin [Mass/Vol] 4.3 g/dL Normal 3.5-5.0 [facility] Comment on above: Performed By: #### L 500.4050, L300.3900, L100.0100, L101.9900, L3410.9992, L501.6710 ####[facility] [address] [place], [address] Albumin/Globulin [Mass ratio] 1.4 {ratio} Normal 0.9-2.4 [facility] Comment on above: Performed By: #### L 500.4050, L300.3900, L100.0100, L101.9900, L3410.9992, L501.6710 ####[facility] [address] [place], [address] ALK PHOS 64 U/L Normal 35-104 [facility] Comment on above: Performed By: #### L 500.4050, L300.3900, L100.0100, L101.9900, L3410.9992, L501.6710 ####[facility] [address] [place], [address] ALT [Catalytic activity/Vol] 22 U/L Normal <=34 [facility] Comment on above: Performed By: #### L 500.4050, L300.3900, L100.0100, L101.9900, L3410.9992, L501.6710 ####[facility] [address] [place], [address] AST [Catalytic activity/Vol] 14 U/L Normal <=31 [facility] Comment on above: Performed By: #### L 500.4050, L300.3900, L100.0100, L101.9900, L3410.9992, L501.6710 ####[facility] [address] [place], [address] BUN/CRE 16.4 RATIO Normal 10-20 [facility] Comment on above: Performed By: #### L 500.4050, L300.3900, L100.0100, L101.9900, L3410.9992, L501.6710 ####[facility] [address] [place], [address] Calcium [Mass/Vol] 9.2 mg/dL Normal 7.6-11.0 [facility] Comment on above: Performed By: #### L 500.4050, L300.3900, L100.0100, L101.9900, L3410.9992, L501.6710 ####[facility] [address] [place], [address] Chloride [Moles/Vol] 103 mmol/L Normal 98-108 [facility] Comment on above: Performed By: #### L 500.4050, L300.3900, L100.0100, L101.9900, L3410.9992, L501.6710 ####[facility] [address] [place], [address] CO2 [Moles/Vol] 18.9 mmol/L Low 21.0-32.0 [facility] Comment on above: Performed By: #### L 500.4050, L300.3900, L100.0100, L101.9900, L3410.9992, L501.6710 ####[facility] [address] [place], [address] Creatinine [Mass/Vol] 0.56 mg/dL Low 0.70-1.20 [facility] Comment on above: Performed By: #### L 500.4050, L300.3900, L100.0100, L101.9900, L3410.9992, L501.6710 ####[facility] [address] [place], [address] GAP 13 Normal 5-15 [facility] Comment on above: Performed By: #### L 500.4050, L300.3900, L100.0100, L101.9900, L3410.9992, L501.6710 ####[facility] [address] [place], [address] GFR/1.73 sq M.predicted among non-blacks MDRD (S/P/Bld) [Vol rate/Area] 126 mL/min/{1.73_m2} Normal >60 [facility] Comment on above: Result Comment: mL/m in/1.73m2 CKD-EPI Creatinine Equation (2020) Performed By: #### L 500.4050, L300.3900, L100.0100, L101.9900, L3410.9992, L501.6710 ####[facility] [address] [place], [address] Globulin (S) [Mass/Vol] 3.1 g/dL Normal 2.2-4.2 [facility] Comment on above: Performed By: #### L 500.4050, L300.3900, L100.0100, L101.9900, L3410.9992, L501.6710 ####[facility] [address] [place], [address] Glucose [Mass/Vol] 132 mg/dL High 70-99 [facility] Comment on above: Performed By: #### L 500.4050, L300.3900, L100.0100, L101.9900, L3410.9992, L501.6710 ####[facility] [address] [place], [address] Potassium [Moles/Vol] 3.9 mmol/L Normal 3.3-5.1 [facility] Comment on above: Performed By: #### L 500.4050, L300.3900, L100.0100, L101.9900, L3410.9992, L501.6710 ####[facility] [address] [place], [address] Sodium [Moles/Vol] 134 mmol/L Normal 133-145 [facility] Comment on above: Performed By: #### L 500.4050, L300.3900, L100.0100, L101.9900, L3410.9992, L501.6710 ####[facility] [address] [place], [address] T BILI < 0.15 Normal 0.00-1.30 [facility] Comment on above: Performed By: #### L 500.4050, L300.3900, L100.0100, L101.9900, L3410.9992, L501.6710 ####[facility] [address] [place], [address] T PROT 7.4 g/dL Normal 5.9-8.4 [facility] Comment on above: Performed By: #### L 500.4050, L300.3900, L100.0100, L101.9900, L3410.9992, L501.6710 ####[facility] [address] [place], [address] Urea nitrogen [Mass/Vol] 9 mg/dL Normal 4-19 [facility] Comment on above: Performed By: #### L 500.4050, L300.3900, L100.0100, L101.9900, L3410.9992, L501.6710 ####[facility] [address] [place], [address] Eosinophil percentageOrdered By: Domo Weaver on 02-02-2025 Eosinophils/100 WBC (Bld) 0.7 % 0-5 [facility] Erythrocyte Sed Rateon 02-02 SED RATE 28 mm/hr Normal 0-30 [facility] Comment on above: Performed By: #### L 500.4050, L300.3900, L100.0100, L101.9900, L3410.9992, L501.6710 ####[facility] [address] [place], [address] Erythrocyte distribution wid th ratioOrdered By: Domo Weaver on 02-02-2025 Erythrocyte distribution width (RBC) [Ratio] 12.7 % 11.6-14.6 [facility] Erythrocyte distribution wid th standard deviationOrdered By: Domo Weaver on 02-02-2025 Erythrocyte distribution width (RBC) [Ratio] 41.8 fl 35.1-43.9 [facility] Erythrocyte sedimentation ra teOrdered By: Domo Weaver on 02-02-2025 ESR (Bld) [Velocity] 28 mm/h 0-30 [facility] Glomerular filtration rate ( GFR) estimation/1.73 sq m using serum, plasma, or whole bOrdered By: Domo Weaver on 02-02-2025 GFR/1.73 sq M.predicted among non-blacks MDRD (S/P/Bld) [Vol rate/Area] 126 mL/min/{1.73_m2} >60 [facility] Comment on above: mL/min/1.73m2 CKD-EP I Creatinine Equation (2020) Hematocrit Auto (Bld) [Volum e fraction]Ordered By: Domo Weaver on 02-02-2025 Hematocrit (Bld) [Volume fraction] 33.6 % Low 37-47 [facility] Hemoglobin measurementOrdere d By: Domo Weaver on 02-02-2025 Hemoglobin (Bld) [Mass/Vol] 11.2 g/dL Low 12.0-15.0 [facility] Immature granulocytes/100 WB C Auto (Bld)Ordered By: Domo Wevaer on 02-02-2025 Immature granulocytes/100 WBC (Bld) 0.500 % 0.0-0.9 [facility] Comment on above: IG% - Immature Granu locytes (promyelocytes, myelocytes and metamyelocytes) > 1% indicates that a LEFT SHIFT is Present. International normalized rat io (INR) calculationOrdered By: Domo Weaver on 02-02-2025 INR Coag (Bld) [Relative time] 0.9 {INR} [facility] Laboratory - Chemistry and C hemistry - challengeOrdered By: Domo Weaver on 02-02-2025 AST [Catalytic activity/Vol] 14 U/L <32 [facility] MCV (mean corpuscular volume ) determinationOrdered By: Domo Weaver on 02-02-2025 MCV (RBC) [Entitic vol] 89.6 fL 81-99 [facility] Mean corpuscular hemoglobin (MCH) determinationOrdered By: Domo Weaver on 02-02-2025 MCH (RBC) [Entitic mass] 29.9 pg 27.0-32.0 [facility] Mean corpuscular hemoglobin concentration (MCHC) determinationOrdered By: Domo Friend on 02-02-2025 MCHC (RBC) [Mass/Vol] 33.3 g/dL 32-36 [facility] Mean platelet volume determi nationOrdered By: Domo Friend on 02-02-2025 Platelet mean volume (Bld) [Entitic vol] 10.2 fL 6.2-12.0 [facility] Monocyte percentageOrdered B y: [facility] Friend on 02-02-2025 Monocytes/100 WBC (Bld) 4.5 % 0-10 [facility] Neutrophil percentageOrdered By: [facility] Friend on 02-02-2025 Neutrophils/100 WBC (Bld) 76.6 % High 47-70 [facility] Nucleated red blood cell per centageOrdered By: Domo Friend on 02-02-2025 Nucleated RBC/100 WBC (Bld) [Ratio] 0 % 0-5 [facility] [employer] Office Visit Reporton 02-02-2025 [employer] [employer] Office Visit Report [facility] [address], [facility] [address] [place] [address] OFFICE VISIT Date of Service: 02/02/25 MR#: [id number] Acct: [id number] Name: MARIXA AMOS Rep #: [id number] : 1995 Provider: STEFANIE coronel Age/Sex: 29/F Location: [facility] Status: Signed Intake Vital Signs 01/25/25 14:45 02/02/25 15:25 Height 5 ft 3 in 5 ft 3 in Weight: 184 lb 8 oz 186 lb 4 oz BMI 32.6 33.0 BP 128/62 H 143/86 H Blood Pressure Location Rt brachial Position Sitting Intake Visit Reasons: fu early spotting per Associate Relations Specialist Required: No Is patient in pain?: No [...] mg-folate no.1 1 mg-dha 300 mg capsule (PNV-[place]) prednisone 10 mg tablet 10 mg PO QDAY 01/26/25 02/02/25 Hi story progesterone oil 75 mg IM QHS 01/26/25 02/02/25 His tory Post menopausal: No Patient : Yes : No [facility] Medical History Obesity (BMI 30.0-34.9) [...] 3-4 times per week duration: 45-60 minutes/day cathy/moravian: None seatbelt use: always do you feel safe at home: Yes 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 HPI fu early spotting per SM Details: [...] Cosigner Signature: Date (if applicable) CC: Normal [facility] Platelet countOrdered By: Ra otto Friend on 02-02-2025 Platelets (Bld) [#/Vol] 388 10*3/uL 150-450 [facility] Potassium measurement (mass/ volume)Ordered By: Domo Friend on 02-02-2025 Potassium (Unsp spec) [Mass/Vol] 3.9 mmol/L 3.3-5.1 [facility] Prothrombin Time w/INRon INR Coag (PPP) [Relative time] 0.9 {INR} Normal [facility] Comment on above: Performed By: #### L 500.4050, L300.3900, L100.0100, L101.9900, L3410.9992, L501.6710 ####[facility] [address] [place], [place], [id number] PT Coag (PPP) [Time] 12.2 s Normal 11.7-14.9 [facility] Comment on above: Performed By: #### L 500.4050, L300.3900, L100.0100, L101.9900, L3410.9992, L501.6710 ####[facility] [address] [place], [place], [id number] Prothrombin timeOrdered By: Domo Weaver on 02-02-2025 PT Coag (PPP) [Time] 12.2 s 11.7-14.9 [facility] RBC Auto (Bld) [#/Vol]Ordere d By: Domo Weaver on 02-02-2025 RBC (Bld) [#/Vol] 3.75 10*6/uL Low 4.2-5.4 [facility] Serum creatinine measurement (mass/volume)Ordered By: Domo Weaver on 02-02-2025 Creatinine [Mass/Vol] 0.56 mg/dL Low 0.70-1.20 [facility] Serum globulin measurementOr dered By: Domo Weaver on 02-02-2025 Globulin (S) [Mass/Vol] 3.1 g/dL 2.2-4.2 [facility] Serum glucose measurement (m ass/volume)Ordered By: Domo Weaver on 02-02-2025 Glucose [Mass/Vol] 132 mg/dL High 70-99 [facility] Serum or plasma C reactive p rotein measurement (mass/volume)Ordered By: Domo Weaver on 02-02-2025 CRP [Mass/Vol] 11.70 mg/L High 0.0-3.0 [facility] Serum or plasma alanine parisi otransferase (ALT) measurementOrdered By: Domo Weaver on 02-02-2025 ALT [Catalytic activity/Vol] 22 U/L <35 [facility] Serum or plasma albumin arielle urement (mass/volume)Ordered By: Domo Weaver on 02-02-2025 Albumin [Mass/Vol] 4.3 g/dL 3.5-5.0 [facility] Serum or plasma albumin/glob ulin mass ratioOrdered By: Domo Weaver on 02-02-2025 Albumin/Globulin [Mass ratio] 1.4 {ratio} 0.9-2.4 [facility] Serum or plasma alkaline marcelo sphatase measurementOrdered By: Domo Weaver on 02-02-2025 ALP [Catalytic activity/Vol] 64 U/L 35-104 [facility] Serum or plasma calcium arielle urement (mass/volume)Ordered By: Domo Weaver on 02-02-2025 Calcium [Mass/Vol] 9.2 mg/dL 7.6-11.0 [facility] Serum or plasma urea nitroge n measurement (mass/volume)Ordered By: Domo Weaver on 02-02-2025 Urea nitrogen [Mass/Vol] 9 mg/dL 4-19 [facility] Sodium levelOrdered By: Alisa Michelle on 02-02-2025 Sodium [Moles/Vol] 134 mmol/L 133-145 [facility] Total proteinOrdered By: Lai Weaver on 02-02-2025 Protein [Mass/Vol] 7.4 g/dL 5.9-8.4 [facility] White blood cell (WBC) count Ordered By: Domo Weaver on 02-02-2025 WBC (Bld) [#/Vol] 9.9 10*3/uL 4.4-11.0 [facility] Laboratory - Chemistry and C hemistry - challengeOrdered By: Carmen Lugo on 01-26-2025 HCG ( test) Ql (U) Positive [facility] Office Visit Reporton 2024 Office Visit Report [facility] [address] [place] [address] OFFICE VISIT Date of Service: 01/26/25 MR#: [id number] Acct: [id number] Patient: MARIXA AMOS Rep #: [id number] : 1995 Provider: Dr. Carmen dixon MD Age/Sex: 29/F Location: [facility] Status: Signed Intake Vital Signs 07/12/24 08:32 01/25/25 14:45 Height 5 ft 3 in 5 ft 3 in Weight: 184 lb 8 oz BMI 32.6 BP 128/62 H Blood Pressure Location Rt brachial Position Sitting Intake Visit Reasons: Pre new ob, confirm preg, vitals Chief Complaint: Fertility consult Associate Relations Specialist Required: No Accompanied by: Is patient in [...] mg-folate no.1 1 mg-dha 300 mg capsule (PNV-[place]) prednisone 10 mg tablet 10 mg PO [...] +UPT Orders: Orders CBC W/Diff, Automated 01/26/25 O09. - Supervision of high risk , unspecified, unspecified trimester Type Screen 01/26/25 O. - Supervision of high risk , unspecified, unspecified trimester Rubella IgG 01/26/25 O. - Supervision of high risk , unspecified, unspecified trimester Hepatitis C Antibody 01/26/25 O. - Supervision of high risk , unspecified, unspecified trimester Hepatitis B Surface Antigen 01/26/25 O. - Supervision of high risk , unspecified, unspecified trimester Culture, Urine 01/26/25 O. - Supervision of high risk , unspecified, unspecified trimester Syphilis Antibodies 01/26/25 O. - Supervision of high risk , unspecified, unspecified trimester Chlamydia/GC ALEKSEY aptima 01/26/25 O. - Supervision of high risk , unspecified, unspecified trimester HIV 01/26/25 O. - Supervision of high risk , unspecified, unspecified trimester Hemoglobin A1c 01/26/25 O09.90 - Supervision of high risk , unspecified, unspecified trimester, O99.210 - Obesity complicating , unspecified trimester POC Urine 01/26/25 N91.2 - Amenorrhea, unspecified 01/27/25 1136 Date Carmen Lugo MD Cosign Signature: Date (if applicable) CC: Normal [facility] OB TRANSVAGINALon 025 OB TRANSVAGINAL Interpreted by: [...] transvaginal evaluation for early dating. View: Sufficient [facility] Blood type and Indirect anti body screen panel (Bld)on 01-22-2025 ABO group Nom (Bld) B [facility] Blood group antibody screen Ql Negative [facility] D Ag Ql (Bld) Positive [facility] ABO group Nom (Bld) B [facility] Comment on above: Performed By: #### 2 243-4 #### MARIA E STEFFI ([id number]) [facility] ([facility]) [address] [place] [address] Blood group antibody screen Ql Negative [facility] Comment on above: Performed By: #### 2 243-4 #### MARIA E KAPADIA ([id number]) [facility] ([facility]) [address] [id number] D Ag Ql (Bld) Positive Normal [facility] Comment on above: Performed By: #### 2 243-4 #### MARIA E KAPADIA ([id number]) [facility] ([facility]) [address] [place] [address] C. trachomatis and N. gonorr hoeae DNA ALEKSEY+probe Nom (Unsp spec)on 01-22-2025 C. trachomatis rRNA ALEKSEY+probe Ql (Unsp spec) Negative Normal Negative [facility] Comment on above: Order Comment: REF V ALUES FOLLICULAR PHASE 20-144 MID CYCLE 64-357 LUTEAL PHASE 56-214 POSTMENOPAUSE < 32 PREPUBERTY < 20 FEMALE 10-18Y 8-110 MALE 10-18Y < 20 ADULT MALE < 40 Performed By: #### 2 243-4 #### MARIA E KAPADIA ([id number]) [facility] ([facility]) [address] [place] [address] N. gonorrhoeae DNA Probe+sig amp Ql (Unsp spec) Negative Normal Negative [facility] Comment on above: Order Comment: REF V ALUES FOLLICULAR PHASE 20-144 MID CYCLE 64-357 LUTEAL PHASE 56-214 POSTMENOPAUSE < 32 PREPUBERTY < 20 FEMALE 10-18Y 8-110 MALE 10-18Y < 20 ADULT MALE < 40 Performed By: #### 2 243-4 #### MARIA E KAPADIA ([id number]) [facility] ([facility]) [address] [id number] CBC W Auto Differential pane l (Bld)on 01-22-2025 Basophils (Bld) [#/Vol] 0.04 10*3/uL [facility] Basophils/100 WBC (Bld) 0.5 % 0.0 - 2.0 % [facility] Eosinophils (Bld) [#/Vol] 0.07 10*3/uL [facility] Eosinophils/100 WBC (Bld) 0.8 % 0.0 - 6.0 % [facility] Erythrocyte distribution width (RBC) [Ratio] 12.7 % 11.5 - 14.5 % [facility] Hematocrit (Bld) [Volume fraction] 32.8 % Low 36.0 - 46.0 % [facility] Hemoglobin (Bld) [Mass/Vol] 11.1 g/dL Low 12.0 - 16.0 g/dL [facility] Immature granulocytes (Bld) [#/Vol] 0.05 10*3/uL [facility] Immature granulocytes/100 WBC (Bld) 0.6 % 0.0 - 0.9 % [facility] Comment on above: Immature Granulocyte Count (IG) includes promyelocytes, myelocytes and metamyelocytes but does not include bands. Percent differential counts (%) should be interpreted in the context of the absolute cell counts (cells/UL). Interpretation and review of laboratory results Abnormal [facility] Lymphocytes (Bld) [#/Vol] 1.19 10*3/uL Low [facility] Lymphocytes/100 WBC (Bld) 13.9 % 13.0 - 44.0 % [facility] MCH (RBC) [Entitic mass] 30.1 pg 26.0 - 34.0 pg [facility] MCHC (RBC) [Mass/Vol] 33.8 g/dL 32.0 - 36.0 g/dL [facility] MCV (RBC) [Entitic vol] 89 fL 80 - 100 fL [facility] Monocytes (Bld) [#/Vol] 0.34 10*3/uL [facility] Monocytes/100 WBC (Bld) 4 % 2.0 - 10.0 % [facility] Neutrophils (Bld) [#/Vol] 6.86 10*3/uL [facility] Comment on above: Percent differential counts (%) should be interpreted in the context of the absolute cell counts (cells/uL). Neutrophils/100 WBC (Bld) 80.2 % 40.0 - 80.0 % [facility] Nucleated RBC/100 WBC (Bld) [Ratio] 0 % [facility] Platelets (Bld) [#/Vol] 319 10*3/uL [facility] RBC (Bld) [#/Vol] 3.69 10*6/uL [facility] WBC (Bld) [#/Vol] 8.6 10*3/uL [facility] Basophils (Bld) [#/Vol] 0.04 x10*3/uL Normal 0.00-0.10 [facility] Comment on above: Performed By: #### 2 243-4 #### MARIA E KAPADIA ([id number]) [facility] ([facility]) [address] [place] [address] Basophils/100 WBC (Bld) 0.5 % Normal 0.0-2.0 [facility] Comment on above: Performed By: #### 2 243-4 #### MARIA E KAPADIA ([id number]) [facility] ([facility]) [address] [place] [address] Eosinophils (Bld) [#/Vol] 0.07 x10*3/uL Normal 0.00-0.70 [facility] Comment on above: Performed By: #### 2 243-4 #### MARIA E KAPADIA ([id number]) [facility] ([facility]) [address] [place] [address] Eosinophils/100 WBC (Bld) 0.8 % Normal 0.0-6.0 [facility] Comment on above: Performed By: #### 2 243-4 #### MARIA E KAPADIA ([id number]) [facility] ([facility]) [address] [place] [address] Erythrocyte distribution width (RBC) [Ratio] 12.7 % Normal 11.5-14.5 [facility] Comment on above: Performed By: #### 2 243-4 #### MARIA E KAPADIA ([id number]) [facility] ([facility]) [address] [place] [address] Hematocrit (Bld) [Volume fraction] 32.8 % Low 36.0-46.0 [facility] Comment on above: Performed By: #### 2 243-4 #### MARIA E KAPADIA ([id number]) [facility] ([facility]) [address] [place] [address] Hemoglobin (Bld) [Mass/Vol] 11.1 g/dL Low 12.0-16.0 [facility] Comment on above: Performed By: #### 2 243-4 #### MARIA E KAPADIA ([id number]) [facility] ([facility]) [address] [place] [address] Immature granulocytes (Bld) [#/Vol] 0.05 x10*3/uL Normal 0.00-0.70 [facility] Comment on above: Performed By: #### 2 243-4 #### MARIA E KAPADIA ([id number]) [facility] ([facility]) [address] [place] [address] Immature granulocytes/100 WBC (Bld) 0.6 % Normal 0.0-0.9 [facility] Comment on above: Result Comment: Ewa ture Granulocyte Count (IG) includes promyelocytes, myelocytes and metamyelocytes but does not include bands. Percent differential counts (%) should be interpreted in the context of the absolute cell counts (cells/UL). Performed By: #### 2 243-4 #### MARIA E KAPADIA ([id number]) [facility] ([facility]) [address] [place] [address] Lymphocytes (Bld) [#/Vol] 1.19 x10*3/uL Low 1.20-4.80 [facility] Comment on above: Performed By: #### 2 243-4 #### MARIA E KAPADIA ([id number]) [facility] ([facility]) [address] [place] [address] Lymphocytes/100 WBC (Bld) 13.9 % Normal 13.0-44.0 [facility] Comment on above: Performed By: #### 2 243-4 #### MARIA E KAPADIA ([id number]) [facility] ([facility]) [address] [place] [address] MCH (RBC) [Entitic mass] 30.1 pg Normal 26.0-34.0 [facility] Comment on above: Performed By: #### 2 243-4 #### MARIA E KAPADIA ([id number]) [facility] ([facility]) [address] [place] [address] MCHC (RBC) [Mass/Vol] 33.8 g/dL Normal 32.0-36.0 [facility] Comment on above: Performed By: #### 2 243-4 #### MARIA E KAPADIA ([id number]) [facility] ([facility]) [address] [place] [address] MCV (RBC) [Entitic vol] 89 fL Normal 80-100 [facility] Comment on above: Performed By: #### 2 243-4 #### MARIA E KAPADIA ([id number]) [facility] ([facility]) [address] [place] [address] Monocytes (Bld) [#/Vol] 0.34 x10*3/uL Normal 0.10-1.00 [facility] Comment on above: Performed By: #### 2 243-4 #### MARIA E KAPADIA ([id number]) [facility] ([facility]) [address] [place] [address] Monocytes/100 WBC (Bld) 4.0 % Normal 2.0-10.0 [facility] Comment on above: Performed By: #### 2 243-4 #### MARIA E KAPADIA ([id number]) [facility] ([facility]) [address] [place] [address] Neutrophils (Bld) [#/Vol] 6.86 x10*3/uL Normal 1.20-7.70 [facility] Comment on above: Result Comment: Perc ent differential counts (%) should be interpreted in the context of the absolute cell counts (cells/uL). Performed By: #### 2 243-4 #### MARIA E KAPADIA ([id number]) [facility] ([facility]) [address] [place] [address] Neutrophils/100 WBC (Bld) 80.2 % Normal 40.0-80.0 [facility] Comment on above: Performed By: #### 2 243-4 #### MARIA E KAPADIA ([id number]) [facility] ([facility]) [address] [place] [address] Nucleated RBC/100 WBC (Bld) [Ratio] 0.0 /100 WBCs Normal 0.0-0.0 [facility] Comment on above: Performed By: #### 2 243-4 #### MARIA E KAPADIA ([id number]) [facility] ([facility]) [address] [place] [address] Platelets (Bld) [#/Vol] 319 x10*3/uL Normal 150-450 [facility] Comment on above: Performed By: #### 2 243-4 #### MARIA E KAPADIA ([id number]) [facility] ([facility]) [address] [place] [address] RBC (Bld) [#/Vol] 3.69 x10*6/uL Low 4.00-5.20 [facility] Comment on above: Performed By: #### 2 243-4 #### MARIA E KAPADIA ([id number]) [facility] ([facility]) [address] [place] [address] WBC (Bld) [#/Vol] 8.6 x10*3/uL Normal 4.4-11.3 [facility] Comment on above: Performed By: #### 2 243-4 #### MARIA E KAPADIA ([id number]) [facility] ([facility]) [address] [place] [address] Choriogonadotropin.beta subu niton 01-22-2025 [place] [address] m[IU]/mL High <5 U [facility] Comment on above: Order Comment: REF V [...] #### 2 243-4 #### MARIA E STEFFI ([id number]) [facility] ([facility]) [address] [place] [address] Comprehensive metabolic 2000 panelon 01-22-2025 Albumin BCP dye [Mass/Vol] 4.5 g/dL 3.4 - 5.0 g/dL [facility] ALP [Catalytic activity/Vol] 56 U/L 33 - 110 U/L [facility] ALT With P-5'-P [Catalytic activity/Vol] 21 U/L 7 - 45 U/L [facility] Comment on above: Patients treated wit h Sulfasalazine may generate falsely decreased results for ALT. Anion gap [Moles/Vol] 15 mmol/L 10 - 2 0 mmol/L [facility] AST With P-5'-P [Catalytic activity/Vol] 18 U/L 9 - 39 U/L [facility] Bilirubin [Mass/Vol] 0.2 mg/dL 0.0 - 1 .2 mg/dL [facility] Calcium [Mass/Vol] 9.4 mg/dL 8.6 - 10. 3 mg/dL [facility] Chloride [Moles/Vol] 106 mmol/L 98 - 10 7 mmol/L [facility] CO2 [Moles/Vol] 19 mmol/L Low 21 - 32 mmol/L [facility] Creatinine [Mass/Vol] 0.83 mg/dL 0.50 - 1.05 mg/dL [facility] eGFR - PINF [facility] Comment on above: Calculations of isabelle mated GFR are performed using the 2020 CKD-EPI Study Refit equation without the race variable for the IDMS-Traceable creatinine methods. https://jasn.asnjournals.org/content/early//ASN.44289 97894 Glucose [Mass/Vol] 110 mg/dL High 74 - 99 mg/dL [facility] Interpretation and review of laboratory results Abnormal [facility] Potassium [Moles/Vol] 4.3 mmol/L 3.5 - 5.3 mmol/L [facility] Protein [Mass/Vol] 6.9 g/dL 6.4 - 8.2 g/dL [facility] Sodium [Moles/Vol] 136 mmol/L 136 - 145 mmol/L [facility] Urea nitrogen [Mass/Vol] 10 mg/dL 6 - 23 mg/dL [facility] Albumin BCP dye [Mass/Vol] 4.5 g/dL Normal 3.4-5.0 [facility] Comment on above: Performed By: #### 2 243-4 #### MARIA E KAPADIA ([id number]) [facility] ([facility]) [address] [id number] ALP [Catalytic activity/Vol] 56 U/L Normal 33-110 [facility] Comment on above: Performed By: #### 2 243-4 #### MARIA E KAPADIA ([id number]) [facility] ([facility]) [address] [id number] ALT With P-5'-P [Catalytic activity/Vol] 21 U/L Normal 7-45 [facility] Comment on above: Result Comment: Silvina ents treated with Sulfasalazine may generate falsely decreased results for ALT. Performed By: #### 2 243-4 #### MARIA E KAPADIA ([id number]) [facility] ([facility]) [address] [place] [address] Anion gap [Moles/Vol] 15 mmol/L Normal 10-20 [facility] Comment on above: Performed By: #### 2 243-4 #### MARIA E KAPADIA ([id number]) [facility] ([facility]) [address] [place] [address] AST With P-5'-P [Catalytic activity/Vol] 18 U/L Normal 9-39 [facility] Comment on above: Performed By: #### 2 243-4 #### MARIA E KAPADIA ([id number]) [facility] ([facility]) [address] [place] [address] Bilirubin [Mass/Vol] 0.2 mg/dL Normal 0.0-1.2 [facility] Comment on above: Performed By: #### 2 243-4 #### MARIA E KAPADIA ([id number]) [facility] ([facility]) [address] [place] [address] Calcium [Mass/Vol] 9.4 mg/dL Normal 8.6-10.3 [facility] Comment on above: Performed By: #### 2 243-4 #### MARIA E KAPADIA ([id number]) [facility] ([facility]) [address] [place] [address] Chloride [Moles/Vol] 106 mmol/L Normal 98-107 [facility] Comment on above: Performed By: #### 2 243-4 #### MARIA E KAPADIA ([id number]) [facility] ([facility]) [address] [place] [address] CO2 [Moles/Vol] 19 mmol/L Low 21-32 [facility] Comment on above: Performed By: #### 2 243-4 #### MARIA E KAPADIA ([id number]) [facility] ([facility]) [address] [place] [address] Creatinine [Mass/Vol] 0.83 mg/dL Normal 0.50-1.05 [facility] Comment on above: Performed By: #### 2 243-4 #### MARIA E KAPADIA ([id number]) [facility] ([facility]) [address] [place] [address] GFR/1.73 sq M.predicted MDRD (S/P/Bld) [Vol rate/Area] mL/min/{1.73_m2} Normal >60 [facility] Comment on above: Result Comment: Calc ulations of estimated GFR are performed using the 2020 CKD-EPI Study Refit equation without the race variable for the IDMS-Traceable creatinine methods. https://jasn.asnjournals.org/content/early/ASN.62190 63649 Performed By: #### 2 243-4 #### MARIA E KAPADIA ([id number]) [facility] ([facility]) [address] [place] [address] Glucose [Mass/Vol] 110 mg/dL High 74-99 [facility] Comment on above: Performed By: #### 2 243-4 #### MARIA E KAPADIA ([id number]) [facility] ([facility]) [address] [place] [address] Potassium [Moles/Vol] 4.3 mmol/L Normal 3.5-5.3 [facility] Comment on above: Performed By: #### 2 243-4 #### MARIA E KAPADIA ([id number]) [facility] ([facility]) [address] [place] [address] Protein [Mass/Vol] 6.9 g/dL Normal 6.4-8.2 [facility] Comment on above: Performed By: #### 2 243-4 #### MARIA E KAPADIA ([id number]) [facility] ([facility]) [address] [place] [address] Sodium [Moles/Vol] 136 mmol/L Normal 136-145 [facility] Comment on above: Performed By: #### 2 243-4 #### MARIA E KAPADIA ([id number]) [facility] ([facility]) [address] [place] [address] Urea nitrogen [Mass/Vol] 10 mg/dL Normal 6-23 [facility] Comment on above: Performed By: #### 2 243-4 #### MARIA E KAPADIA ([id number]) [facility] ([facility]) [address] [place] [address] HCG.beta subunit Qnon 2024 Interpretation and review of laboratory results Abnormal [facility] Total HCG measuremen t is performed using the [employer] Access Immunoassay which detects intact HCG and free beta HCG subunit. This test is not indicated for use as a tumor marker. HCG testing is performed using a different test methodology at [facility] than other [facility]. Direct result comparison should only be made within the same method. [facility] Human Chorionic Gonadotropin , Serum Quantitativeon 01-22-2025 [place] [address] m[IU]/mL High NINF U [facility] Comment on above: Low-level positive H CG [...] Ql (Unsp spec) None Seen None Seen [facility] T. vaginalis Wet prep Ql (Unsp spec) None Seen None Seen [facility] WBC Wet prep Ql (Vag fld) 1-2 [facility] Yeast Wet prep Ql (Vag fld) None Seen None Seen [facility] Microscopic observation Wet prep Nom (Unsp spec)on 01-22-2025 Clue cells Wet prep Ql (Unsp spec) None Seen Normal None Seen [facility] Comment on above: Performed By: #### 2 243-4 #### MARIA E KAPADIA ([id number]) [facility] ([facility]) [address] [place] [address] T. vaginalis Wet prep Ql (Unsp spec) None Seen Normal None Seen [facility] Comment on above: Performed By: #### 2 243-4 #### MARIA E KAPADIA ([id number]) [facility] ([facility]) [address] [place] [address] WBC Wet prep Ql (Vag fld) 1-2 Normal [facility] Comment on above: Performed By: #### 2 243-4 #### MARIA E KAPADIA ([id number]) [facility] ([facility]) [address] [place] [address] Yeast Wet prep Ql (Vag fld) None Seen Normal None Seen [facility] Comment on above: Performed By: #### 2 243-4 #### MARIA E KAPADIA ([id number]) [facility] ([facility]) [address] [place] [address] US OB LESS THAN 14 WEEKS EAR [place] 01-22-2025 US OB LESS THAN 14 WEEKS EARLY Interpreted By: Lisa Parmar, STUDY: US OB LESS THAN 14 WEEKS EARLY 01/22/2025 12:37 pm INDICATION: Signs/Symptoms:6 weeks with brown/pink discharge and lower back pain COMPARISON: 01/18/2025 ACCESSION NUMBER(S): [id number] ORDERING CLINICIAN: ZANE PRYOR TECHNIQUE: Transabdominal and [...] Lisa Parmar 01/22/2025 1:12 PM Dictation workstation: [id number] [facility] US for in first tr imesteron 01-22-2025 Single live intraute rine gestation of 6 weeks and 5 days sonographic gestational age. There has been normal interval growth since 01/18/2025. 0.4 x 0.6 x 0.9 cm subchorionic hemorrhage. Signed by: Lisa Parmar 01/22/2025 1:12 PM Dictation workstation: [id number] [facility] Interpreted By: Lisa Parmar, STUDY: US OB LESS THAN 14 WEEKS EARLY 01/22/2025 12:37 pm INDICATION: Signs/Symptoms:6 weeks with brown/pink discharge and lower back pain COMPARISON: 01/18/2025 ACCESSION NUMBER(S): [id number] ORDERING CLINICIAN: ZANE PRYOR TECHNIQUE: Transabdominal and [...] lower back pain COMPARISON: 01/18/2025 ACCESSION NUMBER(S): [id number] ORDERING CLINICIAN: ZANE PRYOR TECHNIQUE: Transabdominal and [...] Lisa Parmar 01/22/2025 1:12 PM Dictation workstation: [id number] [facility] Work Phone: Radiology Study observation (narrative) [facility] Work Phone: US for in first tr imesterOrdered By: Lisa Parmar on 01-22-2025 [facility] Work Phone: Urinalysis complete W Reflex Culture panel (U)on 01-22-2025 Appearance (U) Clear Clear [facility] Bilirubin (U) [Mass/Vol] Negative NEGATIVE mg/dL [facility] Color (U) Colorless Abnormal Light-Yellow , Yellow, Dark-Yellow [facility] Glucose Auto test strip (U) [Mass/Vol] Normal Normal mg/dL [facility] Interpretation and review of laboratory results Abnormal [facility] Ketones (U) [Mass/Vol] Negative NEGAT CARMEN mg/dL [facility] Leukocyte esterase Auto test strip Ql (U) Negative NEGATIVE [facility] Nitrite Auto test strip Ql (U) Negative NEGATIVE [facility] pH (U) 8 [pH] 5.0, 5.5, 6.0, 6.5, 7.0, 7.5, 8.0 [facility] Protein (U) [Mass/Vol] Negative NEGAT CARMEN, 10 (TRACE), 20 (TRACE) mg/dL [facility] RBC (U) [#/Vol] Negative NEGATIVE mg/dL [facility] Specific gravity (U) [Rel density] 1.006 1.005 - 1.035 [facility] Urobilinogen (U) [Mass/Vol] Normal Normal mg/dL [facility] Appearance (U) Clear Normal Clear [facility] Comment on above: Performed By: #### 2 243-4 #### MARIA E KAPADIA ([id number]) [facility] ([facility]) [address] [place] [address] Bilirubin (U) [Mass/Vol] Negative Normal NEGATIVE [facility] Comment on above: Performed By: #### 2 243-4 #### MARIA E KAPADIA ([id number]) [facility] ([facility]) [address] [place] [address] Color (U) Colorless Normal Light-Yellow , Yellow, Dark-Yellow [facility] Comment on above: Performed By: #### 2 243-4 #### MARIA E KAPADIA ([id number]) [facility] ([facility]) [address] [place] [address] Glucose Auto test strip (U) [Mass/Vol] Normal Normal Normal [facility] Comment on above: Performed By: #### 2 243-4 #### MARIA E KAPADIA ([id number]) [facility] ([facility]) [address] [place] [address] Ketones (U) [Mass/Vol] Negative Normal NEGATIVE Un [facility] Comment on above: Performed By: #### 2 243-4 #### MARIA E KAPADIA ([id number]) [facility] ([facility]) [address] [place] [address] Leukocyte esterase Auto test strip Ql (U) Negative Normal NEGATIVE [facility] Comment on above: Performed By: #### 2 243-4 #### MARIA E KAPADIA ([id number]) [facility] ([facility]) [address] [place] [address] Nitrite Auto test strip Ql (U) Negative Normal NEGATIVE [facility] Comment on above: Performed By: #### 2 243-4 #### MARIA E KAPADIA ([id number]) [facility] ([facility]) [address] [place] [address] pH (U) 8.0 [pH] Normal 5.0, 5.5, 6.0, 6.5, 7.0, 7.5, 8.0 [facility] Comment on above: Performed By: #### 2 243-4 #### MARIA E KAPADIA ([id number]) [facility] ([facility]) [address] [place] [address] Protein (U) [Mass/Vol] Negative Normal NEGAT CARMEN, 10 (TRACE), 20 (TRACE) [facility] Comment on above: Performed By: #### 2 243-4 #### MARIA E KAPADIA ([id number]) [facility] ([facility]) [address] [place] [address] RBC (U) [#/Vol] Negative Normal NEGATIVE [facility] Comment on above: Performed By: #### 2 243-4 #### MARIA E KAPADIA ([id number]) [facility] ([facility]) [address] [place] [address] Specific gravity (U) [Rel density] 1.006 Normal 1.005-1.035 [facility] Comment on above: Performed By: #### 2 243-4 #### MARIA E KAPADIA ([id number]) [facility] ([facility]) [address] [phone] Urobilinogen (U) [Mass/Vol] Normal Normal Normal [facility] Comment on above: Performed By: #### 2 243-4 #### MARIA E KAPADIA ([id number]) [facility] ([facility]) [address] [phone] US OB TRANSVAGINALon 025 US OB TRANSVAGINAL [...] evaluation for early dating. View: Sufficient Normal [facility] US OB TRANSVAGINALon 025 US OB TRANSVAGINAL [...] evaluation for early dating. View: Sufficient Normal [facility] Choriogonadotropin.beta subu niton 01-09-2025 HCG.beta subunit Qn 1756 m[IU]/mL High <5 [facility] Comment on above: Order Comment: REF [...] #### 2 243-4 #### MARIA E STEFFI ([id number]) [facility] ([facility]) [address] [place] [address] Absolute lymphocyte countOrd ered By: Domo Weaver on 01-06-2025 Lymphocytes Auto (Unsp spec) [#/Vol] 2.66 10*3/uL 0.83-4.51 [facility] Absolute neutrophil countOrd ered By: Domo Weaver on 01-06-2025 Neutrophils (Bld) [#/Vol] 5.5 10*3/uL 2.0-7.7 [facility] Anion gap in Serum or Plasma Ordered By: Domo Weaver on 01-06-2025 Anion gap [Moles/Vol] 13 mmol/L 5-15 [facility] Automated lymphocyte count a s percentage of total leukocytesOrdered By: Domo Weaver on 01-06-2025 Lymphocytes/100 WBC Auto (Unsp spec) 30.2 % 19-41 [facility] BUN/creatinine ratioOrdered By: Domo Weaver on 01-06-2025 Urea nitrogen/Creatinine [Mass ratio] 15.8 mg/mg 10-20 [facility] Basophil percentageOrdered B y: Domo Weaver on 01-06-2025 Basophils/100 WBC (Bld) 0.7 % 0-1 [facility] Bilirubin, totalOrdered By: Domo Weaver on 01-06-2025 Bilirubin [Mass/Vol] 0.32 mg/dL 0.00-1.30 [facility] CBC W/Diff, Automatedon 12-28 0-2024 Absolute Lymph 2.66 X10 3/uL Normal 0.83-4.51 [facility] Comment on above: Performed By: #### L 100.0100, L500.4050, L501.6710, L101.9900 ####[facility] [address] [place], [address] Absolute Neut 5.5 X10 3/uL Normal 2.0-7.7 [facility] Comment on above: Performed By: #### L 100.0100, L500.4050, L501.6710, L101.9900 ####[facility] [address] [place], [address] Basophils/100 WBC (Bld) 0.7 % Normal 0-1 [facility] Comment on above: Performed By: #### L 100.0100, L500.4050, L501.6710, L101.9900 ####[facility] [address] [place], [address] Eosinophils/100 WBC (Bld) 1.4 % Normal 0-5 [facility] Comment on above: Performed By: #### L 100.0100, L500.4050, L501.6710, L101.9900 ####[facility] [address] [place], [address] Erythrocyte distribution width (RBC) [Ratio] 12.3 % Normal 11.6-14.6 [facility] Comment on above: Performed By: #### L 100.0100, L500.4050, L501.6710, L101.9900 ####[facility] [address] [place], [address] Hematocrit (Bld) [Volume fraction] 34.3 % Low 37-47 [facility] Comment on above: Performed By: #### L 100.0100, L500.4050, L501.6710, L101.9900 ####[facility] [address] [place], [address] Hemoglobin (Bld) [Mass/Vol] 11.2 g/dL Low 12.0-15.0 [facility] Comment on above: Performed By: #### L 100.0100, L500.4050, L501.6710, L101.9900 ####[facility] [address] [place], [address] IG% 0.300 Normal 0.0-0.9 [facility] Comment on above: Result Comment: IG% - Immature Granulocytes (promyelocytes, myelocytes and metamyelocytes) > 1% indicates that a LEFT SHIFT is Present. Performed By: #### L 100.0100, L500.4050, L501.6710, L101.9900 ####[facility] [address] [place], [address] Lymphocytes/100 WBC (Bld) 30.2 % Normal 19-41 [facility] Comment on above: Performed By: #### L 100.0100, L500.4050, L501.6710, L101.9900 ####[facility] [address] [place], [address] MCH (RBC) [Entitic mass] 29.6 pg Normal 27.0-32.0 [facility] Comment on above: Performed By: #### L 100.0100, L500.4050, L501.6710, L101.9900 ####[facility] [address] [place], [address] MCHC (RBC) [Mass/Vol] 32.7 g/dL Normal 32-36 [facility] Comment on above: Performed By: #### L 100.0100, L500.4050, L501.6710, L101.9900 ####[facility] [address] [place], [address] MCV (RBC) [Entitic vol] 90.7 fL Normal 81-99 [facility] Comment on above: Performed By: #### L 100.0100, L500.4050, L501.6710, L101.9900 ####[facility] [address] [place], [address] Monocytes/100 WBC (Bld) 4.7 % Normal 0-10 [facility] Comment on above: Performed By: #### L 100.0100, L500.4050, L501.6710, L101.9900 ####[facility] [address] [place], [address] Neutrophils/100 WBC (Bld) 62.7 % Normal 47-70 [facility] Comment on above: Performed By: #### L 100.0100, L500.4050, L501.6710, L101.9900 ####[facility] [address] [place], [address] Nucleated RBC (Bld) [#/Vol] 0 10*3/uL Normal 0-5 [facility] Comment on above: Performed By: #### L 100.0100, L500.4050, L501.6710, L101.9900 ####[facility] [address] [place], [address] Platelet mean volume (Bld) [Entitic vol] 10.0 fL Normal 6.2-12.0 [facility] Comment on above: Performed By: #### L 100.0100, L500.4050, L501.6710, L101.9900 ####[facility] [address] [place], [address] Platelets (Bld) [#/Vol] 358 10*3/uL Normal 150-450 [facility] Comment on above: Performed By: #### L 100.0100, L500.4050, L501.6710, L101.9900 ####[facility] [address] [place], [address] RBC (Bld) [#/Vol] 3.78 10*6/uL Low 4.2-5.4 [facility] Comment on above: Performed By: #### L 100.0100, L500.4050, L501.6710, L101.9900 ####[facility] [address] [place], [address] RDW SD 40.6 fl Normal 35.1-43.9 [facility] Comment on above: Performed By: #### L 100.0100, L500.4050, L501.6710, L101.9900 ####[facility] [address] [place], [address] WBC (Bld) [#/Vol] 8.8 10*3/uL Normal 4.4-11.0 [facility] Comment on above: Performed By: #### L 100.0100, L500.4050, L501.6710, L101.9900 ####[facility] [address] [place], [address] CRPon 01-06-2025 C-REACTIVE PROT 5.97 mg/L High 0.0-3.0 [facility] Comment on above: Performed By: #### L 100.0100, L500.4050, L501.6710, L101.9900 ####[facility] [address] [place], [address] Carbon dioxide, total [Moles /volume] in Central venous bloodOrdered By: Domo Friend on 01-06-2025 CO2 [Moles/Vol] 21.3 mmol/L 21.0-32.0 [facility] Chloride assayOrdered By: Ra otto Friend on 01-06-2025 Chloride [Moles/Vol] 104 mmol/L 98-108 [facility] Comprehensive Metabolic Prof ilon 01-06-2025 Albumin [Mass/Vol] 4.2 g/dL Normal 3.5-5.0 [facility] Comment on above: Performed By: #### L 100.0100, L500.4050, L501.6710, L101.9900 ####[facility] [address] [place], [address] Albumin/Globulin [Mass ratio] 1.4 {ratio} Normal 0.9-2.4 [facility] Comment on above: Performed By: #### L 100.0100, L500.4050, L501.6710, L101.9900 ####[facility] [address] [place], [address] ALK PHOS 57 U/L Normal 35-104 [facility] Comment on above: Performed By: #### L 100.0100, L500.4050, L501.6710, L101.9900 ####[facility] [address] [place], [address] ALT [Catalytic activity/Vol] 15 U/L Normal <=34 [facility] Comment on above: Performed By: #### L 100.0100, L500.4050, L501.6710, L101.9900 ####[facility] [address] [place], [address] AST [Catalytic activity/Vol] 18 U/L Normal <=31 [facility] Comment on above: Performed By: #### L 100.0100, L500.4050, L501.6710, L101.9900 ####[facility] [address] [place], [address] Bilirubin [Mass/Vol] 0.32 mg/dL Normal 0.00-1.30 [facility] Comment on above: Performed By: #### L 100.0100, L500.4050, L501.6710, L101.9900 ####[facility] [address] [place], [address] BUN/CRE 15.8 RATIO Normal 10-20 [facility] Comment on above: Performed By: #### L 100.0100, L500.4050, L501.6710, L101.9900 ####[facility] [address] [place], [address] Calcium [Mass/Vol] 9.2 mg/dL Normal 7.6-11.0 [facility] Comment on above: Performed By: #### L 100.0100, L500.4050, L501.6710, L101.9900 ####[facility] [address] [place], [address] Chloride [Moles/Vol] 104 mmol/L Normal 98-108 [facility] Comment on above: Performed By: #### L 100.0100, L500.4050, L501.6710, L101.9900 ####[facility] [address] [place], [address] CO2 [Moles/Vol] 21.3 mmol/L Normal 21.0-32.0 [facility] Comment on above: Performed By: #### L 100.0100, L500.4050, L501.6710, L101.9900 ####[facility] [address] [place], [address] Creatinine [Mass/Vol] 0.69 mg/dL Low 0.70-1.20 [facility] Comment on above: Performed By: #### L 100.0100, L500.4050, L501.6710, L101.9900 ####[facility] [address] [place], [address] GAP 13 Normal 5-15 [facility] Comment on above: Performed By: #### L 100.0100, L500.4050, L501.6710, L101.9900 ####[facility] [address] [place], [address] GFR/1.73 sq M.predicted among non-blacks MDRD (S/P/Bld) [Vol rate/Area] 120 mL/min/{1.73_m2} Normal >60 [facility] Comment on above: Result Comment: mL/m in/1.73m2 CKD-EPI Creatinine Equation (2020) Performed By: #### L 100.0100, L500.4050, L501.6710, L101.9900 ####[facility] [address] [place], [address] Globulin (S) [Mass/Vol] 3.0 g/dL Normal 2.2-4.2 [facility] Comment on above: Performed By: #### L 100.0100, L500.4050, L501.6710, L101.9900 ####[facility] [address] [place], [address] Glucose [Mass/Vol] 121 mg/dL High 70-99 [facility] Comment on above: Performed By: #### L 100.0100, L500.4050, L501.6710, L101.9900 ####[facility] [address] [place], [address] Potassium [Moles/Vol] 3.7 mmol/L Normal 3.3-5.1 [facility] Comment on above: Performed By: #### L 100.0100, L500.4050, L501.6710, L101.9900 ####[facility] [address] [place], [address] Sodium [Moles/Vol] 138 mmol/L Normal 133-145 [facility] Comment on above: Performed By: #### L 100.0100, L500.4050, L501.6710, L101.9900 ####[facility] [address] [place], [address] T PROT 7.2 g/dL Normal 5.9-8.4 [facility] Comment on above: Performed By: #### L 100.0100, L500.4050, L501.6710, L101.9900 ####[facility] [address] [place], [address] Urea nitrogen [Mass/Vol] 11 mg/dL Normal 4-19 [facility] Comment on above: Performed By: #### L 100.0100, L500.4050, L501.6710, L101.9900 ####[facility] [address] [place], [address] Eosinophil percentageOrdered By: Domo Friend on 01-06-2025 Eosinophils/100 WBC (Bld) 1.4 % 0-5 [facility] Erythrocyte Sed Rateon 01-06 SED RATE 8 mm/hr Normal 0-30 [facility] Comment on above: Performed By: #### L 100.0100, L500.4050, L501.6710, L101.9900 ####[facility] [address] [place], [address] Erythrocyte distribution wid th ratioOrdered By: Domo Friend on 01-06-2025 Erythrocyte distribution width (RBC) [Ratio] 12.3 % 11.6-14.6 [facility] Erythrocyte distribution wid th standard deviationOrdered By: Domo Weaver on 01-06-2025 Erythrocyte distribution width (RBC) [Ratio] 40.6 fl 35.1-43.9 [facility] Erythrocyte sedimentation ra teOrdered By: Domo Weaver on 01-06-2025 ESR (Bld) [Velocity] 8 mm/h 0-30 [facility] Glomerular filtration rate ( GFR) estimation/1.73 sq m using serum, plasma, or whole bOrdered By: Domo Weaver on 01-06-2025 GFR/1.73 sq M.predicted among non-blacks MDRD (S/P/Bld) [Vol rate/Area] 120 mL/min/{1.73_m2} >60 [facility] Comment on above: mL/min/1.73m2 CKD-EP I Creatinine Equation (2020) Hematocrit Auto (Bld) [Volum e fraction]Ordered By: Domo Weaver on 01-06-2025 Hematocrit (Bld) [Volume fraction] 34.3 % Low 37-47 [facility] Hemoglobin measurementOrdere d By: Domo Weaver on 01-06-2025 Hemoglobin (Bld) [Mass/Vol] 11.2 g/dL Low 12.0-15.0 [facility] Immature granulocytes/100 WB C Auto (Bld)Ordered By: Domo Weaver on 01-06-2025 Immature granulocytes/100 WBC (Bld) 0.300 % 0.0-0.9 [facility] Comment on above: IG% - Immature Granu locytes (promyelocytes, myelocytes and metamyelocytes) > 1% indicates that a LEFT SHIFT is Present. Laboratory - Chemistry and C hemistry - challengeOrdered By: Domo Weaver on 01-06-2025 AST [Catalytic activity/Vol] 18 U/L <32 [facility] MCV (mean corpuscular volume ) determinationOrdered By: Domo Weaver on 01-06-2025 MCV (RBC) [Entitic vol] 90.7 fL 81-99 [facility] Mean corpuscular hemoglobin (MCH) determinationOrdered By: Domo Weaver on 01-06-2025 MCH (RBC) [Entitic mass] 29.6 pg 27.0-32.0 [facility] Mean corpuscular hemoglobin concentration (MCHC) determinationOrdered By: Domo Weaver on 01-06-2025 MCHC (RBC) [Mass/Vol] 32.7 g/dL 32-36 [facility] Mean platelet volume determi nationOrdered By: Domo Weaver on 01-06-2025 Platelet mean volume (Bld) [Entitic vol] 10.0 fL 6.2-12.0 [facility] Monocyte percentageOrdered B y: Domo Weaver on 01-06-2025 Monocytes/100 WBC (Bld) 4.7 % 0-10 [facility] Neutrophil percentageOrdered By: Domo Weaver on 01-06-2025 Neutrophils/100 WBC (Bld) 62.7 % 47-70 [facility] Nucleated red blood cell per centageOrdered By: Domo Weaver on 01-06-2025 Nucleated RBC/100 WBC (Bld) [Ratio] 0 % 0-5 [facility] Platelet countOrdered By: Ra clarita Weaver on 01-06-2025 Platelets (Bld) [#/Vol] 358 10*3/uL 150-450 [facility] Potassium measurement (mass/ volume)Ordered By: Domo Weaver on 01-06-2025 Potassium (Unsp spec) [Mass/Vol] 3.7 mmol/L 3.3-5.1 [facility] RBC Auto (Bld) [#/Vol]Ordere d By: Domo Weaver on 01-06-2025 RBC (Bld) [#/Vol] 3.78 10*6/uL Low 4.2-5.4 [facility] Serum creatinine measurement (mass/volume)Ordered By: Domo Weaver on 01-06-2025 Creatinine [Mass/Vol] 0.69 mg/dL Low 0.70-1.20 [facility] Serum globulin measurementOr dered By: Domo Weaver on 01-06-2025 Globulin (S) [Mass/Vol] 3.0 g/dL 2.2-4.2 [facility] Serum glucose measurement (m ass/volume)Ordered By: Domo Weaver on 01-06-2025 Glucose [Mass/Vol] 121 mg/dL High 70-99 [facility] Serum or plasma C reactive p rotein measurement (mass/volume)Ordered By: Domo Weaver on 01-06-2025 CRP [Mass/Vol] 5.97 mg/L High 0.0-3.0 [facility] Serum or plasma alanine parisi otransferase (ALT) measurementOrdered By: Domo Weaver on 01-06-2025 ALT [Catalytic activity/Vol] 15 U/L <35 [facility] Serum or plasma albumin arielle urement (mass/volume)Ordered By: Domo Weaver on 01-06-2025 Albumin [Mass/Vol] 4.2 g/dL 3.5-5.0 [facility] Serum or plasma albumin/glob ulin mass ratioOrdered By: Domo Weaver on 01-06-2025 Albumin/Globulin [Mass ratio] 1.4 {ratio} 0.9-2.4 [facility] Serum or plasma alkaline marcelo sphatase measurementOrdered By: Domo Weaver on 01-06-2025 ALP [Catalytic activity/Vol] 57 U/L 35-104 [facility] Serum or plasma calcium arielle urement (mass/volume)Ordered By: Domo Weaver on 01-06-2025 Calcium [Mass/Vol] 9.2 mg/dL 7.6-11.0 [facility] Serum or plasma urea nitroge n measurement (mass/volume)Ordered By: Domo Weaver on 01-06-2025 Urea nitrogen [Mass/Vol] 11 mg/dL 4-19 [facility] Sodium levelOrdered By: Alisa Michelle on 01-06-2025 Sodium [Moles/Vol] 138 mmol/L 133-145 [facility] Total proteinOrdered By: Lai Weaver on 01-06-2025 Protein [Mass/Vol] 7.2 g/dL 5.9-8.4 [facility] White blood cell (WBC) count Ordered By: Domo Weaver on 01-06-2025 WBC (Bld) [#/Vol] 8.8 10*3/uL 4.4-11.0 [facility] Choriogonadotropin.beta subu niton 01-05-2025 HCG.beta subunit [...] #### 2 243-4 #### MARIA E STEFFI ([id number]) [facility] ([facility]) [address] [place] [address] Gastroenterology Visit Repor ton 01-01-2025 Gastroenterology Visit Report [facility] [address] [place] [address] OFFICE VISIT Date of Service: 01/01/25 MR#: [id number] Acct: [id number] Name: MARIXA AMOS Rep #: [id number] : 1995 Provider: Domo Weaver DO Age/Sex: 29/F Location: [facility] [place] [place] Status: Signed Intake Vital Signs 12/09/23 [...] 01/01/25 History mcg (2,500 unit) capsule omega 2-byy-shm-fish oil 300 1 cap PO QDAY 07/12/24 [...] story progesterone oil IM 01/01/25 01/01/25 History [facility] Medical History (Updated 07/12/24 @ 10:30 by Jesika Farrar OTOLARYNGOLOGY TEACHER, OTOLARYNGOLOGY TEACHER-C) Endometriosis Low iron Anemia Latent tuberculosis Ulcerative [...] started 2018 and currently taking QWeek OV 1.. continues with Humira Qweek and is doing well from a GI standpoint. She has concerns that her UC is impairing her ability to get as fertility testing was normal for her and her . Start azathioprine OV 2. Azathioprine unable to be started r/t need for PA. ID Dr. Villagomez established and treated with four months rifampin; OK to continue Humira, do not start azathioprine for one month. OV 7.. possible change of therapy to Stelara. Start hyoscyamine. ? Colonoscopy 05.25.23 cancelled related to . OV 12.. reports loose stools two weeks prior with [...] IBD 03.24.22 --/--? 61/? +? --/--? Titers .. 13/<2.9 --/--? --? --/--? apANCA H1:160, CMV IgG+ CBC (anemic), CMP, LDH, CHARLES comp, celiac, SABRINA, GAME? (more content not included)... Normal [facility] No Panel Informationon 12-26 Gavino Tristan [...] Preop diagnosis: Infertility Post op diagnosis: Same Sports Coordinator: Dr. Holder Depth: 7 cm Curve: anterior [...] Gavino Tristan 12/26/24 11:35 AM [facility] Work Phone: Progesteroneon 12-26-2024 Progesterone [Mass/Vol] 34.6 ng/mL Normal [facility] Comment on above: Order Comment: REF V ALUES FOLLICULAR PHASE 20-144 MID CYCLE 64-357 LUTEAL PHASE 56-214 POSTMENOPAUSE < 32 PREPUBERTY < 20 FEMALE 10-18Y 8-110 MALE 10-18Y < 20 ADULT MALE < 40 Performed By: #### 2 243-4 #### MARIA E STEFFI ([id number]) [facility] ([facility]) [address] [place] [address] LIPID PANEL, STANDARDon 11-29 Cholesterol [Mass/Vol] 228 mg/dL High <200 [facility] Comment on above: Order Comment: FASTI NG:YES FASTING: YES Performed By: #### 1 6812, 1320 #### [facility] [address], [address] [place], [place] [id number] [employer] Teacher: Cody Spencer MD Cholesterol in HDL [Mass/Vol] 68 mg/dL Normal > OR = 50 [facility] Comment on above: Order Comment: FASTI NG:YES FASTING: YES Performed By: #### 1 52, 7600 #### [facility] [address], [address] [place] [address] [employer] Craft[employer] Teacher: Cody Spencer MD Cholesterol in LDL [Mass/Vol] [...] Luis Miguel GALLARDO et al. DESIRE. 2013;310(19): 1598-8739 (http://education.[employer]/faq/UFH927) Performed By: #### 1 87, 0660 #### [facility] [address], [address] [place] [address] [employer] Craft[employer] Teacher: Cody Spencer MD Cholesterol.total/Chol esterol in HDL [Mass ratio] 3.4 {ratio} Normal <5.0 [facility] Comment on above: Order Comment: FASTI NG:YES FASTING: YES Performed By: #### 1 7626, 6830 #### [facility] [address], [address] [place] [address] [employer] Teacher: Cody Spencer MD NON HDL CHOLESTEROL 160 mg/dL (calc) High <130 [facility] Comment on above: Order Comment: FASTI NG:YES FASTING: YES Result Comment: For patients with diabetes plus 1 major ASCVD risk factor, treating to a non-HDL-C goal of <100 mg/dL (LDL-C of <70 mg/dL) is considered a therapeutic option. Performed By: #### 1 7306, 7600 #### [facility] [address], [address] [place] [address] [employer] Teacher: Cody Spencer MD Triglyceride [Mass/Vol] 190 mg/dL High <150 [facility] Comment on above: Order Comment: FASTI NG:YES FASTING: YES Performed By: #### 1 7306, 7600 #### [facility] [address], [address] [place] [address] [employer] Teacher: Cody Spencer MD VITAMIN D,25-OH,TOTAL,IAon 0 12-21-2024 [...] D, (D2,D3), LC/MS/MS is recommended: order code 55900 (patients >2yrs). See Note 1 Note 1 For additional information, please refer to http://education.[employer]/faq/CPI610 (This link is being provided for informational/ educational purposes only.) Performed By: #### 1 7306, 7600 #### [facility] [address], [address] [place] [address] [employer] Craft[employer] Teacher: Cody Spencer MD Destr of lesionon 12-20-2024 Complexity: simple Destruction method: cryotherapy Informed consent: discussed and consent obtained Debridement: hyperkeratotic portion removed with sharp debridement Lesion destroyed using liquid nitrogen: Yes Cryotherapy cycles: 3 Outcome: patient tolerated procedure well with no complications Post-procedure details: wound care instructions given [facility] Work Phone: [facility] Work Phone: Progesteroneon 12-20-2024 Progesterone [Mass/Vol] 0.2 ng/mL Normal [facility] Comment on above: Order Comment: REF V ALUES FOLLICULAR PHASE 20-144 MID CYCLE 64-357 LUTEAL PHASE 56-214 POSTMENOPAUSE < 32 PREPUBERTY < 20 FEMALE 10-18Y 8-110 MALE 10-18Y < 20 ADULT MALE < 40 Performed By: #### 2 243-4 #### MARIA E KAPADIA ([id number]) [facility] ([facility]) [address] [place] [address] Estradiolon 12-15-2024 E2 [Mass/Vol] 417 pg/mL Normal [facility] Comment on above: Order Comment: REF V ALUES FOLLICULAR PHASE 20-144 MID CYCLE 64-357 LUTEAL PHASE 56-214 POSTMENOPAUSE < 32 PREPUBERTY < 20 FEMALE 10-18Y 8-110 MALE 10-18Y < 20 ADULT MALE < 40 Performed By: #### 2 243-4 #### MARIA E KAPADIA ([id number]) [facility] ([facility]) [address] [place] [address] Progesteroneon 12-15-2024 Progesterone [Mass/Vol] 0.6 ng/mL Normal [facility] Comment on above: Order Comment: REF V ALUES FOLLICULAR PHASE 20-144 MID CYCLE 64-357 LUTEAL PHASE 56-214 POSTMENOPAUSE < 32 PREPUBERTY < 20 FEMALE 10-18Y 8-110 MALE 10-18Y < 20 ADULT MALE < 40 Performed By: #### 2 243-4 #### MARIA E KAPADIA ([id number]) [facility] ([facility]) [address] [place] [address] [facility] US ENDOMETRIAL LINING CH ECKon 12-15-2024 [facility] US ENDOMETRIAL LINING CHECK Trilaminar appearance to the endometrium is noted. Normal [facility] ANTI-MULLERIAN HORMONE ([facility]) , FEMALEon 11-25-2024 ANTI-MULLERIAN HORMONE ([facility]), FEMALE 1.90 ng/mL Normal 0.69-13.39 [facility] Comment on above: Performed By: #### 1 1363, [address], 469[address], 8472, 67332, 498 #### [facility] [address] [place] [address], [address] [place] [id number] [employer] Teacher: Cody Spencer MD #### [id number] #### [facility]/[place] [id number] [facility] [place], [place] [employer] Teacher: Jeremiah Holder M.D.,PhD #### 60051 #### [facility], [address] [place], [place] [employer] Teacher: Bianka Brenner MD,PhD,HAMLET CHLAMYDIA/N. GONORRHOEAE RNA , TMA, UROGENITALon 11-25-2024 CHLAMYDIA TRACHOMATIS RNA, TMA, UROGENITAL Not detected Normal NOT DETECTED [facility] Comment on above: Performed By: #### 1 1363, [address], [address], 8472, 31162, 498 #### [facility] [address], [address] [place] [address] [employer] Teacher: Cody Spencer MD #### [id number] #### [facility]/[address] [place], [place] [employer] Teacher: Jeremiah Holder M.D.,PhD #### [id number] #### [facility], [address] [place], [place] [employer] Teacher: Bianka Brenner MD,PhD,HAMLET COMMENT Normal [facility] Comment on above: Result Comment: The analytical performance characteristics of this assay, when used to test SurePath(TM) specimens have been determined by [employer]. The modifications have not been cleared or approved by the FDA. This assay has been validated pursuant to the CLIA regulations and is used for clinical purposes. For additional information, please refer to https://education.[employer]/faq/CCA630 (This link is being provided for information/ educational purposes only.) Performed By: #### 1 1363, [address], 38785, 8472, 45589, 498 #### [facility] [address], [address] [place] [address] [employer] Teacher: Cody Spencer MD #### [id number] #### [facility]/[place] [id number] [facility] [place] [employer] Teacher: Jeremiah Holder M.D.,PhD #### [id number] #### [facility]/Neri [facility] [place], [address] [address] [place] [employer] Teacher: Bianka Brenner MD,PhD,HAMLET NEISSERIA GONORRHOEAE RNA, TMA, UROGENITAL Not detected Normal NOT DETECTED [facility] Comment on above: Performed By: #### 1 1363, 23961, 67702, 8472, 78439, 498 #### [facility] [address], [address] [place] [address] [employer] Teacher: Cody Spencer MD #### [id number] #### [facility]/[place] [id number] [facility] Dr [place], [place] [employer] Teacher: Jeremiah Holder M.D.,PhD #### [id number] #### [facility]/Neri [facility], [address] [address]R[facility] Center[place], [place] [employer] Teacher: Bianka Brenner MD,PhD,HAMLET HEMOGLOBIN A1c WITH eAGon eAG (mmol/L) 6.0 mmol/L Normal [facility] Comment on above: Performed By: #### 1 1363, 44368, 18711, 8472, 69553, 498 #### [facility] [address] [place] , [address] [place] [address] [employer] Craft[employer] Teacher: Cody Spencer MD #### [id number] #### [facility]/[place] [id number] [facility] Dr [place], [place] [employer] Teacher: Jeremiah Holder M.D.,PhD #### 38173 #### [facility]/[place], [address] [place] [address] [employer] Teacher: Bianka Brenner MD,PhD,HAMLET HEMOGLOBIN A1c 5.4 % [...] diagnosis of diabetes in children. According to [place] Diabetes Association (ADA) guidelines, hemoglobin A1c <7.0% represents optimal control in non- diabetic patients. Different metrics may apply to specific patient populations. Standards of Medical Care in Diabetes(ADA). Performed By: #### 1 1363, 00598, 24967, 8472, 91619, 498 #### [facility] [address], [address] [place] [address] [employer] Teacher: Cody Spencer MD #### [id number] #### [facility]/Neri [address] [place], [place] [employer] Teacher: Jeremiah Holder M.D.,PhD #### 44343 #### [facility]/Neri [facility], [address] [place] [address] Arts [employer] Craft[employer] Teacher: Bianka Brenner MD,PhD,HAMLET Magnesium [Mass/Vol] 108 mg/dL Normal [facility] Comment on above: Performed By: #### 1 1363, 87000, 01966, 8472, 05764, 498 #### [facility] [address], [address] [place] [address] [employer] Teacher: Cody Spencer MD #### 57259 #### [facility]/[place] 5614325 [facility] Dr [place], [place] [employer] Teacher: Jeremiah Holder M.D.,PhD #### 10328 #### [facility], [address] [place] [address] [employer] Teacher: Bianka Brenner MD,PhD,HAMLET HEPATITIS B SURFACE ANTIGEN W/REFL CONFIRMon 11-25-2024 HEPATITIS B SURFACE ANTIGEN Non-Reactive Normal NON-REACTIVE [facility] Comment on above: Result Comment: For additional information, please refer to http://CloudApps.[employer]/faq/ILD114 (This link is being provided for informational/ educational purposes only.) Performed By: #### 1 1363, 29338, 70307, 8472, 51461, 498 #### [facility] [address], [address] [place], [place] [id number] [employer] Teacher: Cody Spencer MD #### 19005 #### [facility]/[place] 2315025 [facility] [place], [place] [employer] Teacher: Jeremiah Holder M.D.,PhD #### 69006 #### [facility], [address] [place], [place] [employer] Teacher: Bianka Brenner MD,PhD,HAMLET HEPATITIS C AB W/REFL TO HCV RNA, QN, PCRon 11-25-2024 HEPATITIS C ANTIBODY Non-Reactive Normal NON-REACTIVE [facility] Comment on above: Result Comment: HCV antibody was non-reactive. There is no laboratory evidence of HCV infection. In most cases, no further action is required. However, if recent HCV exposure is suspected, a test for HCV RNA (test code 65808) is suggested. For additional information please refer to [email or web address]/faq/XKV04k0 (This link is being provided for informational/ educational purposes only.) Performed By: #### 1 1363, 20950, 32259, 8472, 58309, 498 #### [facility] [address], [address] [place] [address] [employer] Teacher: Cody Spencer MD #### 58691 #### [facility]/Neri [facility] [address] [facility] [address] [place], [place] [employer] Teacher: Jeremiah Holder M.D.,PhD #### 75327 #### [facility]/Neri [facility], [address] [place] [address] [employer] Teacher: Bianka Brenner MD,PhD,HAMLET HIV 1/2 ANTIGEN/ANTIBODY,FOU RTH [...] purpose. For additional information please refer to http://education.[employer]/faq/GFI590 (This link is being provided for informational/ educational purposes only.) The performance of this assay has not been clinically validated in patients less than 2 years old. Performed By: #### 1 1363, 89176, 34099, 8472, 53447, 498 #### [facility] [address], [address] [place] [address] [employer] Crafts Teacher: Cody Spencer MD #### 84672 #### [facility]/Neri [facility] [address] [facility] [address] [place], [place] [employer] Teacher: Jeremiah Holder M.D.,PhD #### 95452 #### [facility], [address] [place], [place] [employer] Teacher: Bianka Brenner MD,PhD,HAMLET SYPHILIS ANTIBODY CASCADING REFLEXon [...] is high. Performed By: #### 1 1363, 73606, 35591, 8472, 86175, 498 #### [facility] 8[address] [facility], [address] [place] [address] [employer] Crafts Teacher: Cody Spencer MD #### 60346 #### [facility]/[place] 2315025 [facility] [place], [place] [employer] Teacher: Jeremiah Holder M.D.,PhD #### 62534 #### [facility]/[address] [address] [employer] Teacher: Bianka Brenner MD,PhD,HAMLET TSH W/REFLEX TO FT4on 2024 TSH W/REFLEX TO FT4 0.97 mIU/L Normal [facility] Comment on above: Result Comment: Refe rence Range > or = 20 Years 0.40-4.50 Ranges First trimester 0.26-2.66 Second trimester 0.55-2.73 Third trimester 0.43-2.91 Performed By: #### 1 1363, 68314, 99537, 8472, 02550, 498 #### [facility] [address] [facility], [address] [place] [address] [employer] Teacher: Cody Spencer MD #### 05789 #### [facility]/[place] 5614325 [facility] [place], [place] [employer] Teacher: Jeremiah Holder M.D.,PhD #### 14042 #### [facility]/[place] [facility], [address] [place] [address] [employer] Teacher: Bianka Brenner MD,PhD,HAMLET No Panel Informationon 11-22 Henrietta Herndon MD 11/22/2024 10:18 AM Egg Retrieval Date/Time: 11/22/2024 10:15 AM Performed by: Henrietta Herndon MD Authorized by: aKtelyn Benitez CHARGEBACK ANALYSTFAIRLA[facility] RE[facility] Consent: Consent obtained: Verbal and written [...] diagnosis: Female infertility Post op diagnosis: Same Sports Coordinator: Leslie IV Fluids: 700 cc EBL: 5 cc UOP: Not recorded Specimen: Oocytes Complications: None Number of Oocytes right ovary: 14 Ovarian acc ss (right): Easy Number of Oocytes left ovary: 9 Ovarian access (left): Easy Endometrial thickness: TL Needle type: Single Additional notes: I was present and supervised the entire procedure. Henrietta Herndon 11/22/24 10:16 AM [facility] RIS [facility] Work Phone: Blood type and Indirect anti body screen panel (Bld)on 11-21-2024 ABO group Nom (Bld) B Normal [facility] Comment on above: Performed By: #### 3 4532-2 ####MARIA E KAPADIA ([id number])[facility] (UBB)[address] [place] [address] Blood group antibody screen Ql Negative [facility] Comment on above: Performed By: #### 3 4532-2 ####MARIA E KAPADIA ([id number])[facility] [place] [address] US D Ag Ql (Bld) Positive [facility] Comment on above: Performed By: #### 3 4532-2 ####MARIA E KAPADIA ([id number])[facility] ([facility])[address] [place] [address] US Lutropinon 11-21-2024 Lutropin Qn 29.1 IU/L [facility] Comment on above: Result Comment: LH R eference Values Follicular Phase 1.5-10.0 Mid-Cycle 13.0-72.0 Luteal Phase 0.5-13.0 Menopause 15.0-65.0 Pre-puberty 0- 3.0 Children 0- 6.0 Adult Male 1.0- 9.0 Luteinizing Hormone is performed using the Елена INXPO Access Immunoassay. LH testing is performed using a different test methodology at [facility] than other [facility]. Direct result comparison should only be made within the same method. Performed By: #### 2 243-4 #### MARIA E KAPADIA ([id number]) [facility] ([facility]) [address] [place] [address] Progesteroneon 11-21-2024 Progesterone [Mass/Vol] 5.4 ng/mL [facility] Comment on above: Order Comment: REF V ALUES FOLLICULAR PHASE 20-144 MID CYCLE 64-357 LUTEAL PHASE 56-214 POSTMENOPAUSE < 32 PREPUBERTY < 20 FEMALE 10-18Y 8-110 MALE 10-18Y < 20 ADULT MALE < 40 Performed By: #### 2 243-4 #### MARIA E KAPADIA ([id number]) [facility] ([facility]) [address] [place] [address] Estradiolon 11-20-2024 E2 [Mass/Vol] 5336 pg/mL [facility] Comment on above: Order Comment: REF V ALUES FOLLICULAR PHASE 20-144 MID CYCLE 64-357 LUTEAL PHASE 56-214 POSTMENOPAUSE < 32 PREPUBERTY < 20 FEMALE 10-18Y 8-110 MALE 10-18Y < 20 ADULT MALE < 40 Performed By: #### 2 243-4 #### MARIA E KAPADIA ([id number]) [facility] ([facility]) [address] [place] [address] Follicle Diameter USon 11-20 Follicle scan perfor med with follicle measurements in report. Trilaminar appearance to the endometrium is noted. Free fluid is noted in the cul de sac. RIS SECTRA ONLY [facility] Work Phone: Radiology Study observation (narrative) [facility] Work Phone: Progesteroneon 11-20-2024 Progesterone [Mass/Vol] 1.8 ng/mL Normal [facility] Comment on above: Order Comment: REF V ALUES FOLLICULAR PHASE 20-144 MID CYCLE 64-357 LUTEAL PHASE 56-214 POSTMENOPAUSE < 32 PREPUBERTY < 20 FEMALE 10-18Y 8-110 MALE 10-18Y < 20 ADULT MALE < 40 Performed By: #### 2 243-4 #### MARIA E KAPADIA ([id number]) [facility] ([facility]) [address] [place] [phone] [facility] US PELVIS LIMITED FOLLIC LES-FOLLICLE STUDIES PERFORMEDon 11-20-2024 [facility] US PELVIS LIMITED FOLLICLES-FOLLICLE STUDIES PERFORMED Follicle scan performed with follicle measurements in report. Trilaminar appearance to the endometrium is noted. Free fluid is noted in the cul de sac. Normal [facility] Estradiolon 11-18-2024 E2 [Mass/Vol] 2969 pg/mL Normal [facility] Comment on above: Order Comment: REF V ALUES FOLLICULAR PHASE 20-144 MID CYCLE 64-357 LUTEAL PHASE 56-214 POSTMENOPAUSE < 32 PREPUBERTY < 20 FEMALE 10-18Y 8-110 MALE 10-18Y < 20 ADULT MALE < 40 Performed By: #### 2 243-4 #### MARIA E KAPADIA ([id number]) [facility] ([facility]) [address] [place] [phone] Follicle Diameter USon 11-18 Follicle scan perfor med with follicle measurements in report. RIS SECTRA ONLY [facility] Work Phone: Radiology Study observation (narrative) [facility] Work Phone: Progesteroneon 11-18-2024 Progesterone [Mass/Vol] 0.9 ng/mL Normal [facility] Comment on above: Order Comment: REF V ALUES FOLLICULAR PHASE 20-144 MID CYCLE 64-357 LUTEAL PHASE 56-214 POSTMENOPAUSE < 32 PREPUBERTY < 20 FEMALE 10-18Y 8-110 MALE 10-18Y < 20 ADULT MALE < 40 Performed By: #### 2 243-4 #### MARIA E KAPADIA ([id number]) [facility] ([facility]) [address] [place] [address] TERRENCE US PELVIS LIMITED FOLLIC LES-FOLLICLE STUDIES PERFORMEDon 11-18-2024 TERRENCE US PELVIS LIMITED FOLLICLES-FOLLICLE STUDIES PERFORMED Follicle scan performed with follicle measurements in report. Normal [facility] Estradiolon 11-16-2024 E2 [Mass/Vol] 1058 pg/mL Normal [facility] Comment on above: Order Comment: REF V ALUES FOLLICULAR PHASE 20-144 MID CYCLE 64-357 LUTEAL PHASE 56-214 POSTMENOPAUSE < 32 PREPUBERTY < 20 FEMALE 10-18Y 8-110 MALE 10-18Y < 20 ADULT MALE < 40 Performed By: #### 2 243-4 #### MARIA E KAPADIA ([id number]) [facility] ([facility]) [address] [place] [phone] Follicle Diameter USon 11-16 Follicle scan perfor med with follicle measurements in report. Trilaminar appearance to the endometrium is noted. RIS SECTRA ONLY [facility] Work Phone: Radiology Study observation (narrative) [facility] Work Phone: TERRENCE US PELVIS LIMITED FOLLIC LES-FOLLICLE STUDIES PERFORMEDon 11-16-2024 TERRENCE US PELVIS LIMITED FOLLICLES-FOLLICLE STUDIES PERFORMED Follicle scan performed with follicle measurements in report. Trilaminar appearance to the endometrium is noted. Normal [facility] Estradiolon 11-14-2024 E2 [Mass/Vol] 488 pg/mL [facility] Comment on above: Order Comment: REF V ALUES FOLLICULAR PHASE 20-144 MID CYCLE 64-357 LUTEAL PHASE 56-214 POSTMENOPAUSE < 32 PREPUBERTY < 20 FEMALE 10-18Y 8-110 MALE 10-18Y < 20 ADULT MALE < 40 Performed By: #### 2 243-4 #### MARIA E KAPADIA ([id number]) [facility] ([facility]) [address] [place] [address] Follicle Diameter USon 11-14 Follicle scan perfor [facility] with follicle measurements in report. Trilaminar appearance to the endometrium is not noted. Free fluid is noted in the cul de sac. RIS SECTRA ONLY [facility] Work Phone: Radiology Study observation (narrative) [facility] Work Phone: TERRENCE US PELVIS LIMITED FOLLIC LES-FOLLICLE STUDIES PERFORMEDon 11-14-2024 TERRENCE US PELVIS LIMITED FOLLICLES-FOLLICLE STUDIES PERFORMED Follicle scan performed with follicle measurements in report. Trilaminar appearance to the endometrium is not noted. Free fluid is noted in the cul de sac. Normal [facility] CBC panel Auto (Bld)on 11-08 Erythrocyte distribution width (RBC) [Ratio] 12.0 % Normal 11.5-14.5 [facility] Comment on above: Performed By: #### 2 243-4 #### MARIA E KAPADIA ([id number]) [facility] ([facility]) [address] [place] [address] Hematocrit (Bld) [Volume fraction] 35.3 % Low 36.0-46.0 [facility] Comment on above: Performed By: #### 2 243-4 #### MARIA E KAPADIA ([id number]) [facility] ([facility]) [address] [place] [phone] Hemoglobin (Bld) [Mass/Vol] 11.4 g/dL Low 12.0-16.0 [facility] Comment on above: Performed By: #### 2 243-4 #### MARIA E KAPADIA ([id number]) [facility] ([facility]) [address] [place] [phone] MCH (RBC) [Entitic mass] 29.3 pg Normal 26.0-34.0 [facility] Comment on above: Performed By: #### 2 243-4 #### MARIA E KAPADIA ([id number]) [facility] ([facility]) [address] [place] [address] MCHC (RBC) [Mass/Vol] 32.3 g/dL Normal 32.0-36.0 [facility] Comment on above: Performed By: #### 2 243-4 #### MARIA E KAPADIA ([id number]) [facility] ([facility]) [address] [place] [address] MCV (RBC) [Entitic vol] 91 fL Normal 80-100 [facility] Comment on above: Performed By: #### 2 243-4 #### MARIA E KAPADIA ([id number]) [facility] ([facility]) [address] [place] [address] Nucleated RBC/100 WBC (Bld) [Ratio] 0.0 /100 WBCs Normal 0.0-0.0 [facility] Comment on above: Performed By: #### 2 243-4 #### MARIA E KAPADIA ([id number]) [facility] ([facility]) [address] [place] [address] Platelets (Bld) [#/Vol] 326 x10*3/uL Normal 150-450 [facility] Comment on above: Performed By: #### 2 243-4 #### MARIA E KAPADIA ([id number]) [facility] ([facility]) [address] [place] [address] RBC (Bld) [#/Vol] 3.89 x10*6/uL Low 4.00-5.20 [facility] Comment on above: Performed By: #### 2 243-4 #### MARIA E KAPADIA ([id number]) [facility] ([facility]) [address] [place] [address] WBC (Bld) [#/Vol] 5.2 x10*3/uL Normal 4.4-11.3 [facility] Comment on above: Performed By: #### 2 243-4 #### MARIA E KAPADIA ([id number]) [facility] ([facility]) [address] [place] [address] Estradiolon 11-08-2024 E2 [Mass/Vol] 43 pg/mL Normal [facility] Comment on above: Order Comment: REF V ALUES FOLLICULAR PHASE 20-144 MID CYCLE 64-357 LUTEAL PHASE 56-214 POSTMENOPAUSE < 32 PREPUBERTY < 20 FEMALE 10-18Y 8-110 MALE 10-18Y < 20 ADULT MALE < 40 Performed By: #### 2 243-4 #### MARIA E LI ([id number]) [facility] ([facility]) [address] [place] [address] Follicle Diameter USon 11-08 Follicle scan perfor med with follicle measurements in report., Trilaminar appearance to the endometrium is noted., and Free fluid is noted in the cul de sac. RIS SECTRA ONLY Radiology Study observation (narrative) [facility] Work Phone: Follicle Diameter USOrdered By: Henrietta Herndon on 11-08-2024 [facility] Work Phone: TERRENCE US PELVIS LIMITED FOLLIC LES-FOLLICLE STUDIES PERFORMEDon 11-08-2024 [facility] US PELVIS LIMITED FOLLICLES-FOLLICLE STUDIES PERFORMED Follicle scan performed with follicle measurements in report., Trilaminar appearance to the endometrium is noted., and Free fluid is noted in the cul de sac. [facility] No Panel Informationon 10-11 Henrietta Herndon MD 10/11/2024 9:48 AM Egg Retrieval Date/Time: 10/11/2024 9:41 AM Performed by: Henrietta Hernodn MD Authorized by: Katelyn Benitez APRN-[facility] Consent: Consent obtained: Verbal and written [...] diagnosis: Female infertility Post op diagnosis: Same Sports Coordinator: Manvelyan IV Fluids: 300 cc EBL: 5 cc UOP: Not recorded Specimen: Oocytes Complications: None Number of Oocytes right ovary: 16 Ovarian access (right): Easy Number of Oocytes left ovary: 9 Ovarian access (left): Easy Endometrial thickness: Tl Needle type: Single Additional notes: I was present and supervised the entire procedure. Henrietta Das Channuvia 10/11/24 9:42 AM [facility] LAB [facility] Work Phone: Lutropinon 10-10-2024 Lutropin Qn 42.5 IU/L [facility] Comment on above: Result Comment: LH R eference Values Follicular Phase 1.5-10.0 Mid-Cycle 13.0-72.0 Luteal Phase 0.5-13.0 Menopause 15.0-65.0 Pre-puberty 0- 3.0 Children 0- 6.0 Adult Male 1.0- 9.0 Luteinizing Hormone is performed using the [employer] Access Immunoassay. LH testing is performed using a different test methodology at [facility] than other [facility]. Direct result comparison should only be made within the same method. Performed By: #### 2 243-4 #### MARIA E KAPADIA ([id number]) [facility] ([facility]) [address] [place] [address] Progesteroneon 10-10-2024 Progesterone [Mass/Vol] 5.0 ng/mL [facility] Comment on above: Order Comment: REF V ALUES FOLLICULAR PHASE 20-144 MID CYCLE 64-357 LUTEAL PHASE 56-214 POSTMENOPAUSE < 32 PREPUBERTY < 20 FEMALE 10-18Y 8-110 MALE 10-18Y < 20 ADULT MALE < 40 Performed By: #### 2 243-4 #### MARIA E KAPADIA ([id number]) [facility] ([facility]) [facility] [place] [address] Estradiolon 10-09-2024 E2 [Mass/Vol] 7372 pg/mL [facility] Comment on above: Order Comment: REF V ALUES FOLLICULAR PHASE 20-144 MID CYCLE 64-357 LUTEAL PHASE 56-214 POSTMENOPAUSE < 32 PREPUBERTY < 20 FEMALE 10-18Y 8-110 MALE 10-18Y < 20 ADULT MALE < 40 Estradiol measurement is performed using the Елена Luis Access Estradiol Immunoassay. Estradiol testing is performed using a different test methodology at [facility] than other [facility]. Direct result comparison should only be made within the same method. Performed By: #### 2 243-4 #### MARIA E KAPADIA ([id number]) [facility] ([facility]) [address] [place] [address] Progesteroneon 10-09-2024 Progesterone [Mass/Vol] 1.3 ng/mL [facility] Comment on above: Order Comment: REF V ALUES Male <0.2-0.8 Follicular Phase <0.2-1.5 Luteal Phase 7.4-15.4 Post Menopausal <0.2-0.2 1ST Trimester 12.0-84.0 2ND Trimester 10.2-58.8 3RD Trimester 46.5-160 Progesterone is performed using the Елена [place] Access Immunoassay. Progesterone testing is performed using a different test methodology at [facility] than other [facility]. Direct result comparison should only be made within the same method. Performed By: #### 2 839-9 #### MARIA E KAPADIA ([id number]) [facility] ([facility]) [address] [place] [address] TERRENCE US PELVIS LIMITED FOLLIC LES-FOLLICLE STUDIES PERFORMEDon 10-09-2024 TERRENCE US PELVIS LIMITED FOLLICLES-FOLLICLE STUDIES PERFORMED Follicle scan performed with follicle measurements in report. Normal [facility] Estradiolon 10-08-2024 E2 [Mass/Vol] 4637 pg/mL [facility] Comment on above: Order Comment: REF V ALUES FOLLICULAR PHASE 20-144 MID CYCLE 64-357 LUTEAL PHASE 56-214 POSTMENOPAUSE < 32 PREPUBERTY < 20 FEMALE 10-18Y 8-110 MALE 10-18Y < 20 ADULT MALE < 40 Estradiol measurement is performed using the Елена [place] Access Estradiol Immunoassay. Estradiol testing is performed using a different test methodology at [facility] than other [facility]. Direct result comparison should only be made within the same method. Performed By: #### 2 243-4 #### MARIA E KAPADIA ([id number]) [facility] ([facility]) [address] [place] [address] Follicle Diameter USon 10-08 Follicle scan perfor med with follicle measurements in report. RIS SECTRA ONLY Radiology Study observation (narrative) [facility] Work Phone: Follicle Diameter USOrdered By: Gavino Tristan on 10-08-2024 [facility] Work Phone: Progesteroneon 10-08-2024 Progesterone [Mass/Vol] 0.9 ng/mL Normal [facility] Comment on above: Order Comment: REF V ALUES Male <0.2-0.8 Follicular Phase <0.2-1.5 Luteal Phase 7.4-15.4 Post Menopausal <0.2-0.2 1ST Trimester 12.0-84.0 2ND Trimester 10.2-58.8 3RD Trimester 46.5-160 Progesterone is performed using the Елена INXPO Access Immunoassay. Progesterone testing is performed using a different test methodology at [facility] than other [facility]. Direct result comparison should only be made within the same method. Performed By: #### 2 839-9 #### MARIA E KAPADIA ([id number]) [facility] ([facility]) [address] [place] [phone] T[facility]ENCE US PELVIS LIMITED FOLLIC LES-FOLLICLE STUDIES PERFORMEDon 10-08-2024 TERRENCE US PELVIS LIMITED FOLLICLES-FOLLICLE STUDIES PERFORMED Follicle scan performed with follicle measurements in report. Normal [facility] Estradiolon 10-07-2024 E2 [Mass/Vol] 4276 pg/mL Normal [facility] Comment on above: Order Comment: REF V ALUES FOLLICULAR PHASE 20-144 MID CYCLE 64-357 LUTEAL PHASE 56-214 POSTMENOPAUSE < 32 PREPUBERTY < 20 FEMALE 10-18Y 8-110 MALE 10-18Y < 20 ADULT MALE < 40 Estradiol measurement is performed using the Елена INXPO Access Estradiol Immunoassay. Estradiol testing is performed using a different test methodology at [facility] than other [facility]. Direct result comparison should only be made within the same method. Performed By: #### 2 243-4 #### MARIA E KAPADIA ([id number]) [facility] ([facility]) [address] [place] [address] Follicle Diameter USon 10-07 Follicle scan perfor med with follicle measurements in report. RIS SECTRA ONLY Radiology Study observation (narrative) [facility] Work Phone: Follicle Diameter USOrdered By: Gavino Tristan on 10-07-2024 [facility] Work Phone: Progesteroneon 10-07-2024 Progesterone [Mass/Vol] 0.8 ng/mL Normal [facility] Comment on above: Order Comment: REF V ALUES Male <0.2-0.8 Follicular Phase <0.2-1.5 Luteal Phase 7.4-15.4 Post Menopausal <0.2-0.2 1ST Trimester 12.0-84.0 2ND Trimester 10.2-58.8 3RD Trimester 46.5-160 Progesterone is performed using the [employer] Access Immunoassay. Progesterone testing is performed using a different test methodology at [facility] than other [facility]. Direct result comparison should only be made within the same method. Performed By: #### 2 839-9 #### MARIA E KAPADIA ([id number]) [facility] ([facility]) [address] [id number] [facility] US PELVIS LIMITED FOLLIC LES-FOLLICLE STUDIES PERFORMEDon 10-07-2024 [facility] US PELVIS LIMITED FOLLICLES-FOLLICLE STUDIES PERFORMED Follicle scan performed with follicle measurements in report. Normal [facility] Estradiolon 10-05-2024 E2 [Mass/Vol] 1290 pg/mL Normal [facility] Comment on above: Order Comment: REF V ALUES FOLLICULAR PHASE 20-144 MID CYCLE 64-357 LUTEAL PHASE 56-214 POSTMENOPAUSE < 32 PREPUBERTY < 20 FEMALE 10-18Y 8-110 MALE 10-18Y < 20 ADULT MALE < 40 Performed By: #### 2 243-4 #### MARIA E KAPADIA ([id number]) [facility] ([facility]) [address] [place] [address] Follicle Diameter USon 10-05 Follicle scan perfor med with follicle measurements in report. Trilaminar appearance to the endometrium is noted. RIS SECTRA ONLY [facility] Work Phone: Radiology Study observation (narrative) [facility] Work Phone: TERRENCE US PELVIS LIMITED FOLLIC LES-FOLLICLE STUDIES PERFORMEDon 10-05-2024 [facility] US PELVIS LIMITED FOLLICLES-FOLLICLE STUDIES PERFORMED Follicle scan performed with follicle measurements in report. Trilaminar appearance to the endometrium is noted. Normal [facility] Estradiolon 10-03-2024 E2 [Mass/Vol] 479 pg/mL Normal [facility] Comment on above: Order Comment: REF V ALUES FOLLICULAR PHASE 20-144 MID CYCLE 64-357 LUTEAL PHASE 56-214 POSTMENOPAUSE < 32 PREPUBERTY < 20 FEMALE 10-18Y 8-110 MALE 10-18Y < 20 ADULT MALE < 40 Performed By: #### 2 243-4 #### MARIA E KAPADIA ([id number]) [facility] ([facility]) [address] [place] [address] TERRENCE US PELVIS LIMITED FOLLIC LES-FOLLICLE STUDIES PERFORMEDon 10-03-2024 [facility]ENCE US PELVIS LIMITED FOLLICLES-FOLLICLE STUDIES PERFORMED Follicle scan performed with follicle measurements in report., Trilaminar appearance to the endometrium is noted., and Free fluid is noted in the cul de sac. Normal [facility] CBC panel Auto (Bld)on 09-27 Erythrocyte distribution width (RBC) [Ratio] 12.3 % Normal 11.5-14.5 [facility] Comment on above: Performed By: #### 5 8410-2 #### MARIA E KAPADIA ([id number]) [facility] ([facility]) [address] [id number] Hematocrit (Bld) [Volume fraction] 34.4 % Low 36.0-46.0 [facility] Comment on above: Performed By: #### 5 8410-2 #### MARIA E KAPADIA ([id number]) [facility] ([facility]) [address] [place] [address] Hemoglobin (Bld) [Mass/Vol] 11.4 g/dL Low 12.0-16.0 [facility] Comment on above: Performed By: #### 5 8410-2 #### MARIA E KAPADIA ([id number]) [facility] ([facility]) [address] [place] [address] MCH (RBC) [Entitic mass] 29.7 pg Normal 26.0-34.0 [facility] Comment on above: Performed By: #### 5 8410-2 #### MARIA E KAPADIA ([id number]) [facility] ([facility]) [address] [place] [address] MCHC (RBC) [Mass/Vol] 33.1 g/dL Normal 32.0-36.0 [facility] Comment on above: Performed By: #### 5 8410-2 #### MARIA E KAPADIA ([id number]) [facility] ([facility]) [address] [place] [address] MCV (RBC) [Entitic vol] 90 fL Normal 80-100 [facility] Comment on above: Performed By: #### 5 8410-2 #### MARIA E KAPADIA ([id number]) [facility] ([facility]) [address] [place] [address] Nucleated RBC/100 WBC (Bld) [Ratio] 0.0 /100 WBCs Normal 0.0-0.0 [facility] Comment on above: Performed By: #### 5 8410-2 #### MARIA E KAPADIA ([id number]) [facility] ([facility]) [address] [place] [address] Platelets (Bld) [#/Vol] 334 x10*3/uL Normal 150-450 [facility] Comment on above: Performed By: #### 5 8410-2 #### MARIA E KAPADIA ([id number]) [facility] ([facility]) [address] [place] [address] RBC (Bld) [#/Vol] 3.84 x10*6/uL Low 4.00-5.20 [facility] Comment on above: Performed By: #### 5 8410-2 #### MARIA E KAPADIA ([id number]) [facility] ([facility]) [address] [place] [address] WBC (Bld) [#/Vol] 5.7 x10*3/uL Normal 4.4-11.3 [facility] Comment on above: Performed By: #### 5 8410-2 #### MARIA E KAPADIA ([id number]) [facility] ([facility]) [address] [place] [address] Estradiolon 09-27-2024 E2 [Mass/Vol] pg/mL Normal [facility] Comment on above: Order Comment: REF V ASIF FOLLICULAR PHASE 20-144 MID CYCLE 64-357 LUTEAL PHASE 56-214 POSTMENOPAUSE < 32 PREPUBERTY < 20 FEMALE 10-18Y 8-110 MALE 10-18Y < 20 ADULT MALE < 40 Performed By: #### 2 243-4 #### MARIA E STEFFI ([id number]) [facility] ([facility]) [address] [place] [address] TERRENCE US PELVIS LIMITED FOLLIC LES-FOLLICLE STUDIES PERFORMEDon 09-27-2024 TERRENCE US PELVIS LIMITED FOLLICLES-FOLLICLE STUDIES PERFORMED Follicle scan performed with follicle measurements in report. and Trilaminar appearance to the endometrium is not noted. Normal [facility] HCG ( test) Ql (U)O rdered By: Sydney Grier on 08-14-2024 Preg Test, Ur Negative Negative [facility] No Panel InformationOrdered By: Sydney Grier on 08-14-2024 [facility] No Panel Informationon 08-14 Hilary Holder MD 08/14/2024 11:03 AM Hysteroscopy diagnostic Date/Time: 08/14/2024 11:02 AM Performed by: Hilary Holder MD Authorized by: Imelda Pollard MD Consent: Consent obtained: Verbal and written Consent given by: Patient Risks, benefits, and alternatives were discussed: yes Risks discussed: Bleeding, infection and pain [place] protocol: Procedure explained and questions answered to [...] diagnosis: fertility testing Post op diagnosis: Same Sports Coordinator: Fellow Anesthesia: None IV: None EBL: 3 [...] well, no immediate complications [facility] R[facility] [employer] [employer] Office Visit Reporton 07-12-2024 Soa [facility] Office Visit Report [facility] [address], [address] [place] [address] OFFICE VISIT Date of Service: 07/12/24 MR#: [id number] Acct: [id number] Name: MARIXA AMOS Rep #: [id number] : 1995 Provider: DERRICK joshua Age/Sex: 29/F Location: [facility] Status: Signed Intake Vital Signs 06/29/24 12:57 07/12/24 08:25 07/12/24 08:32 Height 5 ft 3 in 5 ft 3 in 5 ft 3 in Weight: 182 lb 184 lb 4 oz BMI 32.2 32.6 BP 126/74 H 122/74 H Pulse 70 Intake Visit Reasons: fertility consult Chief Complaint: Fertility consult Associate Relations Specialist Required: No Is patient in pain?: No [...] 07/12/24 History mcg (2,500 unit) capsule omega 9-cak-sgy-fish oil 300 1 cap PO QDAY 07/12/24 07/12/24 History mg-1,000 mg capsule (Fish Oil) Is last menstrual period known: Yes Last Menstrual Period: 07/12/24 Post menopausal: No Patient : No : No PFSH Medical History (Updated 07/12/24 @ 10:30 by Jesika Farrar OTOLARYNGOLOGY TEACHER, OTOLARYNGOLOGY TEACHER-C) Endometriosis Low iron Anemia Latent tuberculosis Ulcerative [...] at home: Yes additional social history: -[facility] fertility consult Details: MARIXA AMOS is a 29 year old who presents for infertility discussion. She has already had normal OAR with slighly elevated AMH but aware she has PCOS. Had normal HSG with exp lap in 07/2023 at [place] and told endometriosis. She failed letrozole and IUI at another provider. SA normal. She has appt in [place] 08/03 at for infertility discussion. She just [...] (3) Endometriosis: Status: Acute Comment: STAGE 2 [place] 07/2023 ROR Plan Discussed that she has had all labs, failed femara and that would be the extent of infertility management at this practice. Will send recent labs to for upcoming appt and also will need for her to send to She plans to continue weight management at this office. 07/12/24 1032 Date Jesika Marte Signature: Date (if applicable) CC: Normal [facility] Office Visit Reporton 06-29-2024 Soa Architect Office Visit Report [facility] [address], [address] [place] [address] OFFICE VISIT Date of Service: 06/29/24 MR#: [id number] Acct: [id number] Name: MARIXA AMOS Rep #: [id number] : 1995 Provider: DERRICK Hyman Age/Sex: 28/F Location: [facility] Status: Signed Intake Vital Signs 06/01/24 09:21 06/29/24 12:57 Height 5 ft 3 in 5 ft 3 in Weight: 183 lb 2 oz 182 lb BMI 32.4 32.2 BP 139/76 H 126/74 H Pulse 83 70 Intake Visit Reasons: 4 WK WM Chief Complaint: med check Associate Relations Specialist Required: No Is patient in pain?: No [...] Rx capsule,delayed,extended release Last Menstrual Period: 04/29/24 [facility] Medical History Endometriosis Low iron Anemia Latent [...] Nutrition plan: Balanced calorie restricted nutritional plan [id number] mario. Myfitnesspal tracking. (more content not included)... Normal [facility] PROGESTERONE 4317on 06-25-20 PROGESTERONE 0.3 ng/mL Normal . [facility] Comment on above: Order Comment: N day 21 lab Result Comment: Foll icular phase 0.1 - 0.9 Luteal phase 1.8 - 23.9 Ovulation phase 0.1 - 12.0 First trimester 11.0 - 44.3 Second trimester 25.4 - 83.3 Third trimester 58.7 - 214.0 Postmenopausal 0.0 - 0.1 Performed at: [facility] [id number] [employer] Consultant: Almas Saavedra PhD, Phone: [phone] Performed By: #### L 469.1344 #### [facility] [address] [place], [address] Comprehensive Metabolic Prof ilon 06-24-2024 Albumin [Mass/Vol] 3.9 g/dL Normal 3.2-5.0 [facility] Comment on above: Performed By: #### L 500.4050 ####[facility] [address] [place], [address] Albumin/Globulin [Mass ratio] 1.1 {ratio} Normal 0.9-2.4 [facility] Comment on above: Performed By: #### L 500.4050 ####[facility] [address] [place], [address] ALK P 59 U/L Normal 45-117 [facility] Comment on above: Performed By: #### L 500.4050 ####[facility] [address] [place], [address] ALT [Catalytic activity/Vol] 32 U/L Normal 13-56 [facility] Comment on above: Performed By: #### L 500.4050 ####[facility] [address] [place], [address] AST [Catalytic activity/Vol] 15 U/L Normal 15-37 [facility] Comment on above: Performed By: #### L 500.4050 ####[facility] [address] [place], [address] Bilirubin [Mass/Vol] 0.40 mg/dL Normal 0.20-1.00 [facility] Comment on above: Result Comment: For patients on eltrombopag therapy, use of Dimension [place] TBIL is not recommended. Performed By: #### L 500.4050 ####[facility] [address] [place], [address] BUN/CRE 15.6 RATIO Normal 10-20 [facility] Comment on above: Performed By: #### L 500.4050 ####[facility] [address] [place], [address] CA,Total 9.4 mg/dL Normal 8.5-10.1 [facility] Comment on above: Performed By: #### L 500.4050 ####[facility] [address] [place], [address] Chloride [Moles/Vol] 106 mmol/L Normal 98-107 [facility] Comment on above: Performed By: #### L 500.4050 ####[facility] [address] [place], [address] CO2 [Moles/Vol] 26.0 mmol/L Normal 21.0-32.0 [facility] Comment on above: Performed By: #### L 500.4050 ####[facility] [address] [place], [address] Creatinine [Mass/Vol] 0.71 mg/dL Normal 0.55-1.02 [facility] Comment on above: Result Comment: The validity of the calculated GFR GFRAA in patients over 70 years has not been determined. Clinical correlation is essential. Performed By: #### L 500.4050 ####[facility] [address] [place], [address] EST GFR - AA 125 mL/min Normal >60 [facility] Comment on above: Result Comment: Afri can [place]er GFR Calc Performed By: #### L 500.4050 ####[facility] [address] [place], [address] GAP 4 Low 5-15 [facility] Comment on above: Performed By: #### L 500.4050 ####[facility] [address] [place], [address] GFR/1.73 sq M.predicted among non-blacks MDRD (S/P/Bld) [Vol rate/Area] 103 mL/min/{1.73_m2} Normal >60 [facility] Comment on above: Result Comment: Non- GFR Calc Performed By: #### L 500.4050 ####[facility] [address] [place], [address] Globulin (S) [Mass/Vol] 3.7 g/dL Normal 2.2-4.2 [facility] Comment on above: Performed By: #### L 500.4050 ####[facility] [address] [place], [address] Glucose [Mass/Vol] 96 mg/dL Normal 74-106 [facility] Comment on above: Performed By: #### L 500.4050 ####[facility] [address] [place], [address] Potassium [Moles/Vol] 4.1 mmol/L Normal 3.5-5.1 [facility] Comment on above: Performed By: #### L 500.4050 ####[facility] [address] [place], [address] Sodium [Moles/Vol] 136 mmol/L Normal 136-145 [facility] Comment on above: Performed By: #### L 500.4050 ####[facility] [address] [place], [address] T PROT 7.6 g/dL Normal 6.4-8.2 [facility] Comment on above: Performed By: #### L 500.4050 ####[facility] [address] [place], [address] Urea nitrogen [Mass/Vol] 11 mg/dL Normal 7-18 [facility] Comment on above: Performed By: #### L 500.4050 ####[facility] [address] [place], [address] Soa [employer] Office Visit Reporton 06-01-2024 Soa Architect Office Visit Report [facility] [address], [address] [place] [address] OFFICE VISIT Date of Service: 06/01/24 MR#: [id number] Acct: [id number] Name: MARIXA AMOS Rep #: [id number] : 1995 Provider: DERRICK Hyman Age/Sex: 28/F Location: [facility] Status: Signed Intake Vital Signs 05/04/24 10:42 06/01/24 09:21 Height 5 ft 3 in 5 ft 3 in Weight: 183 lb 2 oz BMI 32.4 BP 139/76 H Pulse 83 Intake Visit Reasons: 4 w fu Chief Complaint: weight management Associate Relations Specialist Required: No Is patient in pain?: No [...] capsule,delayed,extended release Last Menstrual Period: 04/29/24 PFSH PFS Medical History Endometriosis Low iron Anemia [...] at t (more content not included)... Normal [facility] 12 Lead EKGon 05-26-2024 12 Lead EKG [facility] [address] [place] [address] 12 Lead EKG 05/26/24 0850 MR#: [id number] Acct: [id number] Name: MARIXA AMOS Rep #: [id number] : 1995 28 From: Yosi Narayan MD Attending Dr: Renetta Cha NP-C Status: REG CLI Ordering Dr: Renetta Cha OTOLARYNGOLOGY TEACHER-C Date: 05/26/24 Location: PSN Sex: F C [...] normal ECG Confirmed by SUNIL BLANCO, YOSI ([id number]), book editor LUIS QUIGLEY ([id number]) on 05/26/2024 2:53:52 PM Referred By: Renetta Cha Confirmed By:YOSI NARAYAN MD 05/26/24 1453 Date Yosi Narayan MD CC: OTOLARYNGOLOGY TEACHER-C Renetta Cha; CATRACHITO MERCEDES Signed Normal [facility] CBC W/Diff, Automatedon 09--2023 Absolute Lymph 2.02 X10 3/uL Normal 0.83-4.51 [facility] Comment on above: Performed By: #### L 506.1000, L500.4050, L506.0400, L501.9985, L100.0100, L501.9520 #### [facility] [address] [place], [address] Absolute Neut 3.2 X10 3/uL Normal 2.0-7.7 [facility] Comment on above: Performed By: #### L 506.1000, L500.4050, L506.0400, L501.9985, L100.0100, L501.9520 #### [facility] [address] [place], [address] Basophils/100 WBC (Bld) 0.7 % Normal 0-1 [facility] Comment on above: Performed By: #### L 506.1000, L500.4050, L506.0400, L501.9985, L100.0100, L501.9520 #### [facility] [address] [place], [address] Eosinophils/100 WBC (Bld) 1.6 % Normal 0-5 [facility] Comment on above: Performed By: #### L 506.1000, L500.4050, L506.0400, L501.9985, L100.0100, L501.9520 #### [facility] [address] [place], [address] Erythrocyte distribution width (RBC) [Ratio] 12.3 % Normal 11.6-14.6 [facility] Comment on above: Performed By: #### L 506.1000, L500.4050, L506.0400, L501.9985, L100.0100, L501.9520 #### [facility] [address] [place], [address] Hematocrit (Bld) [Volume fraction] 37.4 % Normal 37-47 [facility] Comment on above: Performed By: #### L 506.1000, L500.4050, L506.0400, L501.9985, L100.0100, L501.9520 #### [facility] [address] [place], [address] Hemoglobin (Bld) [Mass/Vol] 12.2 g/dL Normal 12.0-15.0 [facility] Comment on above: Performed By: #### L 506.1000, L500.4050, L506.0400, L501.9985, L100.0100, L501.9520 #### [facility] [address] [place], [address] IG% 0.200 Normal 0.0-0.9 [facility] Comment on above: Result Comment: IG% - Immature Granulocytes (promyelocytes, myelocytes and metamyelocytes) > 1% indicates that a LEFT SHIFT is Present. Performed By: #### L 506.1000, L500.4050, L506.0400, L501.9985, L100.0100, L501.9520 #### [facility] [address] [place], [address] Lymphocytes/100 WBC (Bld) 34.9 % Normal 19-41 [facility] Comment on above: Performed By: #### L 506.1000, L500.4050, L506.0400, L501.9985, L100.0100, L501.9520 #### [facility] [address] [place], [address] MCH (RBC) [Entitic mass] 29.9 pg Normal 27.0-32.0 [facility] Comment on above: Performed By: #### L 506.1000, L500.4050, L506.0400, L501.9985, L100.0100, L501.9520 #### [facility] [address] [place], [address] MCHC (RBC) [Mass/Vol] 32.6 g/dL Normal 32-36 [facility] Comment on above: Performed By: #### L 506.1000, L500.4050, L506.0400, L501.9985, L100.0100, L501.9520 #### [facility] [address] [place], [address] MCV (RBC) [Entitic vol] 91.7 fL Normal 81-99 [facility] Comment on above: Performed By: #### L 506.1000, L500.4050, L506.0400, L501.9985, L100.0100, L501.9520 #### [facility] [address] [place], [address] Monocytes/100 WBC (Bld) 7.1 % Normal 0-10 [facility] Comment on above: Performed By: #### L 506.1000, L500.4050, L506.0400, L501.9985, L100.0100, L501.9520 #### [facility] [address] [place], [address] Neutrophils/100 WBC (Bld) 55.5 % Normal 47-70 [facility] Comment on above: Performed By: #### L 506.1000, L500.4050, L506.0400, L501.9985, L100.0100, L501.9520 #### [facility] [address] [place], [address] Nucleated RBC (Bld) [#/Vol] 0 10*3/uL Normal 0-5 [facility] Comment on above: Performed By: #### L 506.1000, L500.4050, L506.0400, L501.9985, L100.0100, L501.9520 #### [facility] [address] [place], [address] Platelet mean volume (Bld) [Entitic vol] 10.0 fL Normal 6.2-12.0 [facility] Comment on above: Performed By: #### L 506.1000, L500.4050, L506.0400, L501.9985, L100.0100, L501.9520 #### [facility] [address] [place], [address] Platelets (Bld) [#/Vol] 337 10*3/uL Normal 150-450 [facility] Comment on above: Performed By: #### L 506.1000, L500.4050, L506.0400, L501.9985, L100.0100, L501.9520 #### [facility] [address] [place], [address] RBC (Bld) [#/Vol] 4.08 10*6/uL Low 4.2-5.4 [facility] Comment on above: Performed By: #### L 506.1000, L500.4050, L506.0400, L501.9985, L100.0100, L501.9520 #### [facility] [address] [place], [address] RDW SD 41.5 fl Normal 35.1-43.9 [facility] Comment on above: Performed By: #### L 506.1000, L500.4050, L506.0400, L501.9985, L100.0100, L501.9520 #### [facility] [address] [place], [address] WBC (Bld) [#/Vol] 5.8 10*3/uL Normal 4.4-11.0 [facility] Comment on above: Performed By: #### L 506.1000, L500.4050, L506.0400, L501.9985, L100.0100, L501.9520 #### [facility] [address] [place], [address] Comprehensive Metabolic Prof [facility] 05-04-2024 Albumin [Mass/Vol] 4.3 g/dL Normal 3.2-5.0 [facility] Comment on above: Performed By: #### L 506.1000, L500.4050, L506.0400, L501.9985, L100.0100, L501.9520 ####[facility] [address] [place], [address] Albumin/Globulin [Mass ratio] 1.1 {ratio} Normal 0.9-2.4 [facility] Comment on above: Performed By: #### L 506.1000, L500.4050, L506.0400, L501.9985, L100.0100, L501.9520 ####[facility] [address] [place], [address] ALK P 63 U/L Normal 45-117 [facility] Comment on above: Performed By: #### L 506.1000, L500.4050, L506.0400, L501.9985, L100.0100, L501.9520 ####[facility] [address] [place], [address] ALT [Catalytic activity/Vol] 84 U/L High 13-56 [facility] Comment on above: Performed By: #### L 506.1000, L500.4050, L506.0400, L501.9985, L100.0100, L501.9520 ####[facility] [address] [place], [address] AST [Catalytic activity/Vol] 38 U/L High 15-37 [facility] Comment on above: Performed By: #### L 506.1000, L500.4050, L506.0400, L501.9985, L100.0100, L501.9520 ####[facility] [address] [place], [address] Bilirubin [Mass/Vol] 0.30 mg/dL Normal 0.20-1.00 [facility] Comment on above: Result Comment: For patients on eltrombopag therapy, use of Dimension [place] TBIL is not recommended. Performed By: #### L 506.1000, L500.4050, L506.0400, L501.9985, L100.0100, L501.9520 ####[facility] [address] [place], [address] BUN/CRE 16.6 RATIO Normal 10-20 [facility] Comment on above: Performed By: #### L 506.1000, L500.4050, L506.0400, L501.9985, L100.0100, L501.9520 ####[facility] [address] [place], [address] CA,Total 9.8 mg/dL Normal 8.5-10.1 [facility] Comment on above: Performed By: #### L 506.1000, L500.4050, L506.0400, L501.9985, L100.0100, L501.9520 ####[facility] [address] [place], [address] Chloride [Moles/Vol] 103 mmol/L Normal 98-107 [facility] Comment on above: Performed By: #### L 506.1000, L500.4050, L506.0400, L501.9985, L100.0100, L501.9520 ####[facility] [address] [place], [address] CO2 [Moles/Vol] 25.0 mmol/L Normal 21.0-32.0 [facility] Comment on above: Performed By: #### L 506.1000, L500.4050, L506.0400, L501.9985, L100.0100, L501.9520 ####[facility] [address] [place], [address] Creatinine [Mass/Vol] 0.66 mg/dL Normal 0.55-1.02 [facility] Comment on above: Result Comment: The validity of the calculated GFR GFRAA in patients over 70 years has not been determined. Clinical correlation is essential. Performed By: #### L 506.1000, L500.4050, L506.0400, L501.9985, L100.0100, L501.9520 ####[facility] [address] [place], [address] EST GFR - AA 135 mL/min Normal >60 [facility] Comment on above: Result Comment: Afri can [place] Islander GFR Calc Performed By: #### L 506.1000, L500.4050, L506.0400, L501.9985, L100.0100, L501.9520 ####[facility] [address] [place], [address] GAP 7 Normal 5-15 [facility] Comment on above: Performed By: #### L 506.1000, L500.4050, L506.0400, L501.9985, L100.0100, L501.9520 ####[facility] [address] [place], [address] GFR/1.73 sq M.predicted among non-blacks MDRD (S/P/Bld) [Vol rate/Area] 111 mL/min/{1.73_m2} Normal >60 [facility] Comment on above: Result Comment: Non- GFR Calc Performed By: #### L 506.1000, L500.4050, L506.0400, L501.9985, L100.0100, L501.9520 ####[facility] [address] [place], [address] Globulin (S) [Mass/Vol] 4.0 g/dL Normal 2.2-4.2 [facility] Comment on above: Performed By: #### L 506.1000, L500.4050, L506.0400, L501.9985, L100.0100, L501.9520 ####[facility] [address] [place], [address] Glucose [Mass/Vol] 94 mg/dL Normal 74-106 [facility] Comment on above: Performed By: #### L 506.1000, L500.4050, L506.0400, L501.9985, L100.0100, L501.9520 ####[facility] [address] [place], [address] Potassium [Moles/Vol] 4.1 mmol/L Normal 3.5-5.1 [facility] Comment on above: Performed By: #### L 506.1000, L500.4050, L506.0400, L501.9985, L100.0100, L501.9520 ####[facility] [address] [place], [address] Sodium [Moles/Vol] 135 mmol/L Low 136-145 [facility] Comment on above: Performed By: #### L 506.1000, L500.4050, L506.0400, L501.9985, L100.0100, L501.9520 ####[facility] [address] [place], [address] T PROT 8.3 g/dL High 6.4-8.2 [facility] Comment on above: Performed By: #### L 506.1000, L500.4050, L506.0400, L501.9985, L100.0100, L501.9520 ####[facility] [address] [place], [address] Urea nitrogen [Mass/Vol] 11 mg/dL Normal 7-18 [facility] Comment on above: Performed By: #### L 506.1000, L500.4050, L506.0400, L501.9985, L100.0100, L501.9520 ####[facility] [address] [place], [address] Hemoglobin A1con 05-04-2024 HbA1c (Bld) [Mass fraction] 5.3 % Normal 3.8-5.6 [facility] Comment on above: Result Comment: Norm al < 5.7 % Prediabetic 5.7 - 6.4 % Diabetic >or= 6.5 % Please note range changes. Performed By: #### L 506.1000, L500.4050, L506.0400, L501.9985, L100.0100, L501.9520 #### [facility] [address] [place], [address] [employer] Office Visit Reporton 05-04-2024 [employer] Office Visit Report [facility] [address], [address] [place] [address] OFFICE VISIT Date of Service: 05/04/24 MR#: [id number] Acct: [id number] Name: MARIXA AMOS Rep #: [id number] : 1995 Provider: DERRICK Hyman Age/Sex: 28/F Location: [facility] Status: Signed Intake Vital Signs 12/09/23 [...] and move (more content not included)... Normal [facility] T4 Free Directon 05-04-2024 T4 FREE DIRECT 0.90 ng/dL Normal 0.76-1.46 [facility] Comment on above: Performed By: #### L 506.1000, L500.4050, L506.0400, L501.9985, L100.0100, L501.9520 ####[facility] [address] [place], [address] Thyroid Stim Hormone (TSH)on 05-04-2024 TSH 1.850 uIU/mL Normal 0.358-3.740 [facility] Comment on above: Performed By: #### L 506.1000, L500.4050, L506.0400, L501.9985, L100.0100, L501.9520 ####[facility] [address] [place], [address] Vitamin D,25 Hydroxyon 05-04 Vitamin D 25-OH 24.7 ng/mL Normal [facility] Comment on above: Result Comment: Kiarra min D 25(OH) Status Range Deficiency <20 ng/mL (50nmol/L) Insufficiency 20 - 30 ng/mL (50 - 75 nmol/L) Sufficiency 30 - 100 ng/mL (75 - 250 nmol/L) Toxicity >100 ng/mL (>250 nmol/L) Performed By: #### L 506.1000, L500.4050, L506.0400, L501.9985, L100.0100, L501.9520 #### [facility] [address] [place], [address] Stool lactoferrin detection by immunoassayOrdered By: Domo Weaver on 12-11-2023 Lactoferrin IA Ql (Stl) [facility] Cervical or vagninal specime n microscopic examination by cytology stain (reported asOrdered By: Iesha Lo on 12-09-2023 Cytology report Cyto stain Doc (Cvx/Vag) Comment . [facility] Comment on above: The Pap smear is a s creening test designed to aid in thedetection of premalignant and malignant conditions of theuterine cervix. It is not a diagnostic procedure andshould not be used as the sole means of detecting cervicalcancer. Both false-positive and false-negative reports dooccur. Laboratory - CytologyOrdered By: Iesha Lo on 12-09-2023 Bushel Worker Cyto stain Nom (Cvx/Vag) [ID] Comment . [facility] Comment on above: Main [place] totechnologist (ASCP) Laboratory - Miscellaneous t estsOrdered By: Iesha Lo on 12-09-2023 Service comment (Unsp spec) [Interp] . . [facility] No Panel InformationOrdered By: Iesha Lo on 12-09-2023 Human Papillomavirus Screen Comment . [facility] Comment on above: The HPV DNA reflex c jewel were not met with this specimenresult therefore, no HPV testing was performed.Performed at: [facility] [address] [place], [place] [id number] Director: Phi Yoder MD, Phone: [phone] at: [facility] - [facility] [id number] Director: Rose Haney MD, Phone: [phone] Thin prep Papanicolaou smear with manual screeningOrdered By: Iesha Lo on 12-09-2023 Thin prep Papanicolaou smear with manual screening Comment . [facility] Comment on above: NEGATIVE FOR INTRAEP ITHELIAL LESION OR MALIGNANCY. This liquid based Th inPrep(R) pap test was screened withthe use of an image guided system. PROGon 11-25-2023 Progesterone Level 6.0 ng/mL Normal [facility] ([place]) Comment on above: Result Comment: Adul t Female Progesterone Reference Ranges: Follicular phase <0.21 - 1.40 ng/mL Luteal phase 3.34 - 25.56 ng/mL Mid-Luteal phase 4.44 - 28.03 ng/mL Postmenopausal <0.21 - 0.73 ng/ml Female: First trimester 11.22 - 90.00 ng/ml Second trimester 25.55 - 89.40 ng/ml Third trimester 48.40 - 422.50 ng/ml Performed By: #### P ROMEL #### [place] [address] Absolute lymphocyte countOrd ered By: Domo Weaver on 11-06-2023 Lymphocytes Auto (Unsp spec) [#/Vol] 1.91 10*3/uL 0.83-4.51 [facility] Automated lymphocyte count a s percentage of total leukocytesOrdered By: Domo Weaver on 11-06-2023 Lymphocytes/100 WBC Auto (Unsp spec) 37.4 % 19-41 [facility] Basophil percentageOrdered B y: Domoyamileth Weaver on 11-06-2023 Basophils/100 WBC (Bld) 0.8 % 0-1 [facility] Eosinophils/100 WBC (Bld) 2.2 % 0-5 [facility] Hemoglobin (Bld) [Mass/Vol] 11.6 g/dL 12.0-15.0 [facility] Monocytes/100 WBC (Bld) 8.2 % 0-10 [facility] Neutrophils (Bld) [#/Vol] 2.6 10*3/uL 2.0-7.7 [facility] Neutrophils/100 WBC (Bld) 51.2 % 47-70 [facility] WBC (Bld) [#/Vol] 5.1 10*3/uL 4.4-11.0 [facility] Determination of erythrocyte mean corpuscular volume (MCV)Ordered By: Domo Weaver on 11-06-2023 MCV (RBC) [Entitic vol] 91.6 fL 81-99 [facility] Erythrocyte distribution wid th ratioOrdered By: Domorobles Weaver on 11-06-2023 Erythrocyte distribution width (RBC) [Ratio] 12.5 % 11.6-14.6 [facility] Erythrocyte distribution wid th standard deviationOrdered By: Domoyamileth Weaver on 11-06-2023 Erythrocyte distribution width (RBC) [Entitic vol] 41.9 fL 35.1-43.9 [facility] Hematocrit Auto (Bld) [Volum e fraction]Ordered By: Domo Weaver on 11-06-2023 Hematocrit (Bld) [Volume fraction] 34.8 % 37-47 [facility] Immature granulocytes/100 WB C Auto (Bld)Ordered By: Domo Weaver on 11-06-2023 Immature granulocytes/100 WBC (Bld) 0.200 % 0.0-0.9 [facility] Comment on above: IG% - Immature Granu locytes (promyelocytes, myelocytes and metamyelocytes) > 1% indicates that a LEFT SHIFT is Present. Laboratory - Hematology and Cell countsOrdered By: Domo Weaver on 11-06-2023 MCH (RBC) [Entitic mass] 30.5 pg 27.0-32.0 [facility] MCHC (RBC) [Mass/Vol] 33.3 g/dL 32-36 [facility] Nucleated RBC/100 WBC (Bld) [Ratio] 0 % 0-5 [facility] Platelet mean volume (Bld) [Entitic vol] 10.5 fL 6.2-12.0 [facility] Platelets (Bld) [#/Vol] 291 10*3/uL 150-450 [facility] No Panel InformationOrdered By: Domo Weaver on 11-06-2023 Miscellaneous Test See comment [facility] Comment on above: Scanned image report available in EMR RBC Auto (Bld) [#/Vol]Ordere d By: Domo Weaver on 11-06-2023 RBC (Bld) [#/Vol] 3.80 10*6/uL 4.2-5.4 [facility] Laboratory - Chemistry and C hemistry - challengeOrdered By: Patrice Macias on 10-01-2023 HCG ( test) Ql (U) Negative [facility] Comment on above: Very dilute urine sp ecimens, as indicated by a low specificgravity, may not contain sales and marketing representative levels of hCG. If is still suspected, a first morning urinespecimen should be collected 48 hours later and tested. LABORATORYOrdered By: Shira Juarez on 08-27-2023 HCG ( test) Ql Negative (08/27/23 10:05 AM) Normal AO Manual Urine SS test (u) int Not detected Invalid Interpretation Code AO Manual Urine SS PREGUon 08-27-2023 HCG ( test) Ql (U) Negative Normal [facility] ([place]) Comment on above: Performed By: #### P REGU #### [id number] [place], [place] [address] test (u) int Not detected Invalid Interpretation Code [facility] ([place]) Comment on above: Performed By: #### P REGU #### [id number] [place], [place] [address] No Panel InformationOrdered By: Domo Weaver on 08-07-2023 Stool Calprotectin 275 ug/g 0-120 [facility] Comment on above: Concentration Interp retation Follow-Up< 5 - 50 ug/g Normal None>50 -120 ug/g Borderline Re-evaluate in 4-6 weeks >120 ug/g Abnormal Repeat as clinically indicatedPerformed at: - [facility] [id number] Director: Jose Claros MD, Phone: [phone] Stool lactoferrin detection by immunoassayOrdered By: Domo Weaver on 08-07-2023 Lactoferrin IA Ql (Stl) [facility] CIRANon 08-03-2023 Dil Dewey Viper Venom 35.1 seconds Normal 30.0-42.0 [facility] ([place]) Comment on above: Performed By: #### 5 [address]20[address], PROL #### [place] [address] [place] Interpretation See Below Normal [facility] ([place]) Comment on above: Result Comment: No e vidence of lupus anticoagulant. Performed By: #### 5 29875, PROL #### [address] [address] Platelet neutraliz. Negative Normal [facility] ([place]) Comment on above: Performed By: #### 5 08089, PROL #### [place] [id number] Erythrocyte sedimentation ra teOrdered By: Domo Weaver on 08-03-2023 ESR (Bld) [Velocity] 6 mm/h 0-30 [facility] No Panel InformationOrdered By: Domo Weaver on 08-03-2023 Miscellaneous Test See comment [facility] Comment on above: Scanned image report available in EMR Qualitative QuantiFERON-TB g old in tube testOrdered By: Domo Weaver on 08-03-2023 M. tuberculosis tuberculin stim IFN-g Ql (Bld) 0.16 IU/mL . [facility] Serum or plasma C reactive p rotein measurement (mass/volume)Ordered By: Domo Weaver on 08-03-2023 CRP [Mass/Vol] mg/L 0.0-3.0 [facility] Comment on above: C-Reactive Protein ( CRP) provides useful information for thediagnosis, therapy and monitoring of inflammatory processesand associated diseases. For the evaluation of Relative Riskfor Cardiovascular Disease, a High Sensitivity CRP (HSCRP)should be ordered. Thin prep Papanicolaou smear with manual screeningOrdered By: Domo Weaver on 08-03-2023 Thin prep Papanicolaou smear with manual screening Comment . [facility] Comment on above: QuantiFERON-TB Gold Plus [...] smear with manual screening 0.08 IU/mL . [facility] Thin prep Papanicolaou smear with manual screening 0 IU/mL . [facility] Thin prep Papanicolaou smear with manual screening > 10.00 IU/mL . [facility] Thin prep Papanicolaou smear with manual screening Negative Negative [facility] Comment on above: No response to [...] the productionof interferon gamma. Chemiluminescence immunoassaymethodologyPerformed at: - [facility] [place], [place] [id number] Director: Almas Saavedra PhD, Phone: [phone] MULLERfaye 08-02-2023 [place] [facility] 3.40 ng/mL Normal [facility] ([place]) Comment on above: Result Comment: For assays employing antibodies, the possibility exists for interference by heterophile antibodies in the samples.1 1.Tony Marion Interferences in Immunoassays - still a threat. Clin. Chem. 2000; 46: 4424-2210. This test was developed and its performance characteristics determined by [employer]. It has not been cleared or approved by the Food and Drug Administration. Reference Range: Females 26 - 30y: 1.03 - 11.10 Median 4.20 AMH concentrations of >= 1.06 ng/mL is correlated with a better response to ovarian stimulation, produced more retrievable oocytes and higher odds of live according to Quin et al. Fertility and Sterility. 2010: 94:7324-9397. The current AMH test method correlates with [...] exclude an AMH-secreting ovarian tumor. Performed At: [facility] [address] [place] [id number] Felisa Umaña MD Ph:[phone] Performed By: #### 5 21336, PROL #### [address] [address] PROLon 07-30-2023 Prolactin 16.5 ng/mL Normal 2.0-30.0 [facility] ([place]) Comment on above: Performed By: #### 5 17897, PROL #### [address] [address] APTTon 07-29-2023 aPTT Coag (Bld) [Time] 33.5 s Normal 25.0-35.0 [facility] ([place]) Comment on above: Result Comment: For Heparin anticoagulation therapy, the recommended therapeutic range is: 54-77 seconds (APTT Correlation with Anti-Xa therapeutic range of 0.3-0.7 units/ml). PLEASE REFERENCE THE PHARMACY PROTOCOL FOR DOSING. Performed By: #### 5 19648, PROL #### [place] [address] Heparin dose (APTT) None Normal [facility] ([place]) Comment on above: Performed By: #### 5 62787, PROL #### [address] [address] .Auto Diffon 04-21-2023 Basophil, Absolute 0.0 10 3/mcL Normal 0.0-0.3 [facility] ([place]) Comment on above: Performed By: #### C BC, TSH, CMP, ANEU, ADIFF, LIPID, GFR #### [place] [address] Basophils/100 WBC (Bld) 0.5 % Normal 0.0-2.5 [facility] ([place]) Comment on above: Performed By: #### C BC, TSH, CMP, ANEU, ADIFF, LIPID, GFR #### [place] [id number] Eosinophil, Absolute 0.1 10 3/mcL Normal 0.0-0.7 [facility] ([place]) Comment on above: Performed By: #### C BC, TSH, CMP, ANEU, ADIFF, LIPID, GFR #### [address] [address] Eosinophils/100 WBC (Bld) 1.8 % Normal 0.0-6.0 [facility] ([place]) Comment on above: Performed By: #### C BC, TSH, CMP, ANEU, ADIFF, LIPID, GFR #### [place] [id number] Lymphocyte, Absolute 1.8 10 3/mcL Normal 0.9-4.3 [facility] ([place]) Comment on above: Performed By: #### C BC, TSH, CMP, ANEU, ADIFF, LIPID, GFR #### [address] [address] Lymphocytes/100 WBC (Bld) 28.6 % Normal 20.0-40.0 [facility] ([place]) Comment on above: Performed By: #### C BC, TSH, CMP, ANEU, ADIFF, LIPID, GFR #### [address] [address] Monocyte, Absolute 0.5 10 3/mcL Normal 0.1-1.4 [facility] ([place]) Comment on above: Performed By: #### C BC, TSH, CMP, ANEU, ADIFF, LIPID, GFR #### [address] [address] Monocytes/100 WBC (Bld) 7.4 % Normal 2.0-13.0 [facility] ([place]) Comment on above: Performed By: #### C BC, TSH, CMP, ANEU, ADIFF, LIPID, GFR #### [address] [address] Neutrophils/100 WBC (Bld) 61.7 % Normal 50.0-75.0 [facility] ([place]) Comment on above: Performed By: #### C BC, TSH, CMP, ANEU, ADIFF, LIPID, GFR #### [address] [address] .GFRon 04-21-2023 GFR >60 Normal [facility] ([place]) Comment on above: Result Comment: GFR Population [...] mL/min/1.73 square meters Performed By: #### 5 42124, PROL #### [address] [address] GFR Non- >60 Normal [facility] ([place]) Comment on above: Result Comment: GFR Population [...] mL/min/1.73 square meters Performed By: #### 5 12834, PROL #### [address] [address] .NEUABSon 04-21-2023 Neutrophil, Absolute 3.8 10 3/mcL Normal 2.3-8.1 [facility] ([place]) Comment on above: Performed By: #### C BC, TSH, CMP, ANEU, ADIFF, LIPID, GFR #### [address] [address] CBCon 04-21-2023 Erythrocyte distribution width (RBC) [Ratio] 12.5 % Normal 11.5-15.5 [facility] ([place]) Comment on above: Performed By: #### C BC, TSH, CMP, ANEU, ADIFF, LIPID, GFR #### [address] [address] Hematocrit (Bld) [Volume fraction] 36.4 % Normal 34.0-46.0 [facility] ([place]) Comment on above: Performed By: #### C BC, TSH, CMP, ANEU, ADIFF, LIPID, GFR #### [address] [address] Hgb 12.1 G/dL Normal 12.0-16.0 [facility] ([place]) Comment on above: Performed By: #### C BC, TSH, CMP, ANEU, ADIFF, LIPID, GFR #### [place] [address] MCH (RBC) [Entitic mass] 31.0 pg Normal 27.0-33.0 [facility] ([place]) Comment on above: Performed By: #### C BC, TSH, CMP, ANEU, ADIFF, LIPID, GFR #### [place] [address] MCHC 33.4 G/dL Normal 32.0-36.0 [facility] ([place]) Comment on above: Performed By: #### C BC, TSH, CMP, ANEU, ADIFF, LIPID, GFR #### [place] [address] MCV (RBC) [Entitic vol] 92.8 fL Normal 80.0-99.0 [facility] ([place]) Comment on above: Performed By: #### C BC, TSH, CMP, ANEU, ADIFF, LIPID, GFR #### [place] [address] Platelet 298 10 3/mcL Normal 150-450 [facility] ([place]) Comment on above: Performed By: #### C BC, TSH, CMP, ANEU, ADIFF, LIPID, GFR #### [place] [address] Platelet mean volume (Bld) [Entitic vol] 8.8 fL Normal 6.6-10.5 [facility] ([place]) Comment on above: Performed By: #### C BC, TSH, CMP, ANEU, ADIFF, LIPID, GFR #### [place] [address] RBC 3.92 10 6/mcL Low 4.10-5.30 [facility] ([place]) Comment on above: Performed By: #### C BC, TSH, CMP, ANEU, ADIFF, LIPID, GFR #### [place] [address] WBC 6.2 10 3/mcL Normal 4.5-10.8 [facility] ([place]) Comment on above: Performed By: #### C BC, TSH, CMP, ANEU, ADIFF, LIPID, GFR #### [address] [address] CMPon 04-21-2023 Albumin Level 4.3 G/dL Normal 3.2-4.8 [facility] ([place]) Comment on above: Performed By: #### C BC, TSH, CMP, ANEU, ADIFF, LIPID, GFR #### [address] [address] Albumin/Globulin [Mass ratio] 1.3 {ratio} Normal 0.9-1.6 [facility] ([place]) Comment on above: Performed By: #### C BC, TSH, CMP, ANEU, ADIFF, LIPID, GFR #### [place] [id number] ALP [Catalytic activity/Vol] 55 U/L Normal 38-126 [facility] ([place]) Comment on above: Performed By: #### C BC, TSH, CMP, ANEU, ADIFF, LIPID, GFR #### [place] [id number] ALT [Catalytic activity/Vol] 54 U/L High 10-49 [facility] ([place]) Comment on above: Performed By: #### C BC, TSH, CMP, ANEU, ADIFF, LIPID, GFR #### [place] [id number] AST [Catalytic activity/Vol] 33 U/L Normal 8-34 [facility] ([place]) Comment on above: Performed By: #### C BC, TSH, CMP, ANEU, ADIFF, LIPID, GFR #### [place] [id number] Bili Total 0.40 mg/dL Normal 0.20-1.20 [facility] ([place]) Comment on above: Result Comment: Use of this assay is not recommended for patients undergoing treatment with eltrombopag due to the potential for falsely elevated results. Performed By: #### C BC, TSH, CMP, ANEU, ADIFF, LIPID, GFR #### [place] [id number] BUN/Creatinine Ratio 21.4 ratio Normal 10.0-22.0 [facility] ([place]) Comment on above: Performed By: #### C BC, TSH, CMP, ANEU, ADIFF, LIPID, GFR #### [address] [address] Calcium [Mass/Vol] 9.3 mg/dL Normal 8.7-10.4 [facility] ([place]) Comment on above: Performed By: #### C BC, TSH, CMP, ANEU, ADIFF, LIPID, GFR #### [address] [address] Chloride [Moles/Vol] 105 mmol/L Normal 98-110 [facility] ([place]) Comment on above: Performed By: #### C BC, TSH, CMP, ANEU, ADIFF, LIPID, GFR #### [address] [address] CO2 [Moles/Vol] 28 mmol/L Normal 22-32 [facility] ([place]) Comment on above: Performed By: #### C BC, TSH, CMP, ANEU, ADIFF, LIPID, GFR #### [address] [address] Creatinine [Mass/Vol] 0.56 mg/dL Normal 0.50-1.20 [facility] ([place]) Comment on above: Performed By: #### C BC, TSH, CMP, ANEU, ADIFF, LIPID, GFR #### [address] [address] Electrolyte Balance 6.0 mEq/L Normal 4.0-15.0 [facility] ([place]) Comment on above: Performed By: #### C BC, TSH, CMP, ANEU, ADIFF, LIPID, GFR #### [address] [address] Globulin 3.2 G/dL Normal 1.5-3.8 [facility] ([place]) Comment on above: Performed By: #### C BC, TSH, CMP, ANEU, ADIFF, LIPID, GFR #### [address] [address] Glucose [Mass/Vol] 99 mg/dL Normal 70-110 [facility] ([place]) Comment on above: Performed By: #### C BC, TSH, CMP, ANEU, ADIFF, LIPID, GFR #### [address] [address] Potassium [Moles/Vol] 4.6 mmol/L Normal 3.5-5.0 [facility] ([place]) Comment on above: Result Comment: Spec imen slightly hemolyzed. Performed By: #### C BC, TSH, CMP, ANEU, ADIFF, LIPID, GFR #### [address] [address] Sodium [Moles/Vol] 139 mmol/L Normal 136-145 [facility] ([place]) Comment on above: Performed By: #### C BC, TSH, CMP, ANEU, ADIFF, LIPID, GFR #### [address] [address] Total Protein 7.5 G/dL Normal 5.7-8.2 [facility] ([place]) Comment on above: Result Comment: No te - New Reference Range in effect 20 Performed By: #### C BC, TSH, CMP, ANEU, ADIFF, LIPID, GFR #### [address] [address] Urea nitrogen [Mass/Vol] 12.0 mg/dL Normal 8.0-22.0 [facility] ([place]) Comment on above: Performed By: #### C BC, TSH, CMP, ANEU, ADIFF, LIPID, GFR #### [address] [address] LIPIDon 04-21-2023 Cholesterol [Mass/Vol] 183 mg/dL Normal 50-199 [facility] ([place]) Comment on above: Result Comment: Chol esterol Reference Interval: Less than 200 Desirable 200-239 Borderline high risk 240 and above High risk Performed By: #### 5 91582, PROL #### [address] [address] Cholesterol in HDL [Mass/Vol] 53 mg/dL Normal 40-59 [facility] ([place]) Comment on above: Performed By: #### 5 76806, PROL #### [address] [address] Cholesterol in LDL [Mass/Vol] 104 mg/dL Normal 0-129 [facility] ([place]) Comment on above: Performed By: #### 5 07551, PROL #### [facility] [address] [place] [address] Triglyceride [Mass/Vol] 131 mg/dL Normal 3-149 [facility] ([place]) Comment on above: Performed By: #### 5 71182, PROL #### [facility] [address] [place] [address] TSHon 04-21-2023 TSH 0.952 mIU/mL Normal 0.550-4.780 [facility] ([place]) Comment on above: Result Comment: No te - New Reference Range in effect 20 Performed By: #### 5 73644, PROL #### [facility] [address] [place] [address] 36on 04-09-2023 36 Name of caller: JANE HER Relation to patient: patient Contact phone number: [phone] Appointment scheduled with: LANDY BLAIR Appointment date & time: 05/04/23 @ 7:50 AM Reason for visit (are you having any symptoms) : Low blood pressure, unexpected weight gain Transportation issues/ concerns: NO Special accommodations? ( wheel chair, etc) : NO Current medications: STELARA Any refills need: NO Any chronic conditions the provider should be aware of: CHRON'S, 14 WEEKS [facility] 36 In order to comply w ith the No Surprises Act, [facility] is providing you with the following attachments. Any Good Cathy Estimate that may be provided are based on the services you are scheduled to receive. During your visit, there may be additional services required in order for the provider to complete your plan of care. DECLINED Normal [facility] 36on 04-05-2023 36 PATIENT SUBMITTED ON LINE APPOINTMENT REQUEST FOR A PCP APPOINTMENT. SPOKE TO PATIENT AND GOT SOME INFORMATION BUT SHE HAD TO GET OFF THE LINE AND STATES SHE WILL C/B. OK TO SCHEDULE WITH ANY PROVIDER WHEN PATIENT CALLS BACK. FirstName : Marixa LastName : OMI Pronouns : PronounsOther : Email : [email or web address] Phone : [phone] Birthdate : 1995 12:00:00 AM BestTimeToCallBack : Afternoon AppointmentDate : Kirk PhysicianRequested : Symptoms : Weight gain, low blood pressure OptIn : False Normal [facility] Absolute lymphocyte counton 03-05-2022 Lymphocytes Auto (Unsp spec) [#/Vol] 2.37 10*3/uL 0.83-4.51 [facility] Work Phone: Albumin Elph [Mass/Vol]on Albumin [Mass/Vol] 4.1 g/dL 2.9-4.4 [facility] Work Phone: Atypical perinuclear antineu trophil cytoplasmic antibodies measurementon 03-05-2022 Neutrophil cytoplasmic Ab.perinuclear.atypica l IF (S) [Titer] 1:160 titer Neg:<1:20 [facility] Work Phone: Comment on above: The atypical pANCA p attern has been observed in asignificant percentage of patients with ulcerative colitis,primary sclerosing cholangitis and autoimmune hepatitis. Basophil percentageon 2021 Basophil percentage < 0.2 AI 0.0-0.9 [facility] Work Phone: Basophils/100 WBC (Bld) 0.6 % 0-1 [facility] Work Phone: Bilirubin [Mass/Vol] 0.30 mg/dL 0.20-1.00 [facility] Work Phone: Comment on above: For patients on eltr ombopag therapy, use of Dimension [place] TBIL is not recommended. Chloride [Moles/Vol] 105 mmol/L 98-107 [facility] Work Phone: Eosinophils/100 WBC (Bld) 1.4 % 0-5 [facility] Work Phone: Glucose [Mass/Vol] 90 mg/dL 74-106 [facility] Work Phone: Neutrophils (Bld) [#/Vol] 3.5 10*3/uL 2.0-7.7 [facility] Work Phone: Neutrophils/100 WBC (Bld) 53.6 % 47-70 [facility] Work Phone: Potassium [Moles/Vol] 3.8 mmol/L 3.5-5.1 [facility] Work Phone: Protein [Mass/Vol] 7.5 g/dL 6.4-8.2 [facility] Work Phone: Sodium [Moles/Vol] 136 mmol/L 136-145 [facility] Work Phone: WBC (Bld) [#/Vol] 6.4 10*3/uL 4.4-11.0 [facility] Work Phone: Blood erythrocytes count (nu mber/volume)on 03-05-2022 RBC (Bld) [#/Vol] 3.69 10*6/uL 4.2-5.4 [facility] Work Phone: Blood hemoglobin measurement (mass/volume)on 03-05-2022 Hemoglobin (Bld) [Mass/Vol] 11.2 g/dL 12.0-15.0 [facility] Work Phone: Blood lymphocytes/100 leukoc yteson 03-05-2022 Lymphocytes/100 WBC (Bld) 36.9 % 19-41 [facility] Work Phone: Blood monocytes/100 leukocyt eson 03-05-2022 Monocytes/100 WBC (Bld) 7.3 % 0-10 [facility] Work Phone: Blood platelet mean volumeon 03-05-2022 Platelet mean volume (Bld) [Entitic vol] 10.4 fL 6.2-12.0 [facility] Work Phone: Determination of erythrocyte mean corpuscular volume (MCV)on 03-05-2022 MCV (RBC) [Entitic vol] 92.1 fL 81-99 [facility] Work Phone: Erythrocyte sedimentation ra kushal 03-05-2022 ESR (Bld) [Velocity] 13 mm/h 0-30 [facility] Work Phone: Hematocrit Auto (Bld) [Volum e fraction]on 03-05-2022 Hematocrit (Bld) [Volume fraction] 34.0 % 37-47 [facility] Work Phone: [phone] Interpretation of serum or p lasma protein pattern by immunofixation (narrative resulton 03-05-2022 Protein Fractions Immunofixation Jesús [Interp] See comment [facility] Work Phone: [phone] Comment on above: Result: Not Observed Laboratory - Chemistry and C hemistry - challengeon 03-05-2022 ALP [Catalytic activity/Vol] 48 U/L 45-117 [facility] Work Phone: [phone] ALT [Catalytic activity/Vol] 39 U/L 13-56 [facility] Work Phone: [phone] CO2 [Moles/Vol] 25.0 mmol/L 21.0-32.0 [facility] Work Phone: [phone] Globulin (S) [Mass/Vol] 3.6 g/dL 2.2-4.2 [facility] Work Phone: [phone] Urea nitrogen/Creatinine [Mass ratio] 34.1 mg/mg 10-20 [facility] Work Phone: [phone] Laboratory - Hematology and Cell countson 03-05-2022 Erythrocyte distribution width (RBC) [Entitic vol] 41.1 fL 35.1-43.9 [facility] Work Phone: [phone] Erythrocyte distribution width (RBC) [Ratio] 12.0 % 11.6-14.6 [facility] Work Phone: [phone] Immature granulocytes/100 WBC (Bld) 0.200 % 0.0-0.9 [facility] Work Phone: [phone] Comment on above: IG% - Immature Granu locytes (promyelocytes, myelocytes and metamyelocytes) > 1% indicates that a LEFT SHIFT is Present. MCH (RBC) [Entitic mass] 30.4 pg 27.0-32.0 [facility] Work Phone: [phone] Nucleated RBC/100 WBC (Bld) [Ratio] 0 % 0-5 [facility] Work Phone: MCHC Auto (RBC) [Mass/Vol]on 03-05-2022 MCHC (RBC) [Mass/Vol] 32.9 g/dL 32-36 [facility] Work Phone: No Panel Informationon 03-05 Addendum Document Comment . [facility] Work Phone: Comment on above: Protein electrophore sis scan will follow via computer,mail, or associate financial planner delivery. Centromere B Antibody <0.2 AI 0.0-0.9 [facility] Work Phone: Endomysial IgA Antibody Negative Negative [facility] Work Phone: Estimated GFR (MDRD) Amer 167 mL/min >60 [facility] Work Phone: Comment on above: GFR Calc Estimated GFR (MDRD) Non-Af Amer 138 mL/min >60 [facility] Work Phone: Comment on above: Non- GFR Calc Immunoglobulin E 42 IU/mL 6-495 [facility] Work Phone: SODA MAKER Antibody <0.2 AI 0.0-0.9 [facility] Work Phone: Platelets bldon 03-05-2022 Platelets (Bld) [#/Vol] 258 10*3/uL 150-450 [facility] Work Phone: Serum DNA double strand anti body assay (units/volume)on 03-05-2022 DNA double strand Ab Qn (S) [IU]/mL 0-9 [facility] Work Phone: Comment on above: Negative <5 Equivoca l 5 - 9 Positive >9 Serum Areli-1 antibody assay (u nits/volume)on 03-05-2022 Areli-1 extractable nuclear Ab Qn (S) <0.2 AI 0.0-0.9 [facility] Work Phone: Serum Scl-70 extractable nuc lear antibody assay (units/volume)on 07-07-2022 SCL-70 extractable nuclear Ab Qn (S) <0.2 AI 0.0-0.9 [facility] Work Phone: Serum Ferrell extractable nucl ear antibody detectionon 03-05-2022 Ferrell extractable nuclear Ab Ql (S) <0.2 AI 0.0-0.9 [facility] Work Phone: Serum kbqah-[id number]-iuvksycu measu rement by electrophoresison 03-05-2022 Alpha 1 globulin Elph [Mass/Vol] 0.2 g/dL 0.0-0.4 [facility] Work Phone: Alpha 1 globulin Elph [Mass/Vol] 0.7 g/dL 0.4-1.0 [facility] Work Phone: Serum classic neutrophil cyt oplasmic antibody assay (units/volume)on 03-05-2022 Neutrophil cytoplasmic Ab.classic Qn (S) <1:20 titer Neg:<1:20 [facility] Work Phone: Serum globulin measurement ( mass/volume)on 03-05-2022 Globulin (S) [Mass/Vol] 3.1 g/dL 2.2-3.9 [facility] Work Phone: Serum or plasma C reactive p rotein measurement (mass/volume)on 03-05-2022 CRP [Mass/Vol] mg/L 0.0-3.0 [facility] Work Phone: Comment on above: C-Reactive Protein ( CRP) provides useful information for thediagnosis, therapy and monitoring of inflammatory processesand associated diseases. For the evaluation of Relative Riskfor Cardiovascular Disease, a High Sensitivity CRP (HSCRP)should be ordered. Serum or plasma IgA measurem ent (mass/volume)on 03-05-2022 IgA [Mass/Vol] 263 mg/dL 87-352 [facility] Work Phone: Serum or plasma IgG measurem ent (mass/volume)on 03-05-2022 IgG [Mass/Vol] 1132 mg/dL [phone] [facility] Work Phone: [phone] Serum or plasma IgM measurem ent (mass/volume)on 03-05-2022 IgM [Mass/Vol] 109 mg/dL 26-217 [facility] Work Phone: Serum or plasma albumin arielle urement (mass/volume)on 03-05-2022 Albumin [Mass/Vol] 3.9 g/dL 3.2-5.0 [facility] Work Phone: Serum or plasma albumin/glob ulin mass ratioon 03-05-2022 Albumin/Globulin [Mass ratio] 1.1 {ratio} 0.9-2.4 [facility] Work Phone: Serum or plasma beta globuli n measurement by electrophoresis (mass/volume)on 03-05-2022 Beta globulin Elph [Mass/Vol] 1.1 g/dL 0.7-1.3 [facility] Work Phone: Serum or plasma calcium arielle urement (mass/volume)on 03-05-2022 Calcium [Mass/Vol] 8.8 mg/dL 8.5-10.1 [facility] Work Phone: Serum or plasma creatinine m easurement (mass/volume)on 03-05-2022 Creatinine [Mass/Vol] 0.56 mg/dL 0.55-1.02 [facility] Work Phone: Comment on above: The validity of the calculated GFR & GFRAA in patients over 70 years has not been determined. Clinical correlation is essential. Serum or plasma cytomegalovi mike (CMV) IgG antibody assay (units/volume)on 03-05-2022 CMV IgG Qn > 10.00 U/mL 0.00-0.59 [facility] Work Phone: Comment on above: Negative <0.60 Equiv ocal 0.60 - 0.69 Positive >0.69 Serum or plasma cytomegalovi mike (CMV) IgM antibody assay (units/volume)on 03-05-2022 CMV IgM Qn < 30.0 AU/mL 0.0-29.9 [facility] Work Phone: Comment on above: Negative <30.0 Equiv ocal 30.0 - 34.9 Positive >34.9A positive result is generally indicative of acuteinfection, reactivation or persistent IgM production.Performed at: - [facility] [id number] [place], [place] [id number] Director: Almas Saavedra PhD, Phone: [phone] at: [facility] [id number] [place], [place] [id number] Director: Jose Claros MD, Phone: [phone] Serum or plasma gamma globul in measurement by electrophoresis (mass/volume)on 03-05-2022 Gamma globulin Elph [Mass/Vol] 1.1 g/dL 0.4-1.8 [facility] Work Phone: Serum or plasma immunoelectr ophoresis interpretation (nominal result)on 03-05-2022 Interpretation IEP [Interp] Comment . [facility] Work Phone: Comment on above: No monoclonality det ected. Serum or plasma urea nitroge n measurement (mass/volume)on 03-05-2022 Urea nitrogen [Mass/Vol] 19 mg/dL 7-18 [facility] Work Phone: Serum perinuclear neutrophil cytoplasmic antibody titer by immunofluorescenceon 03-05-2022 Neutrophil cytoplasmic Ab.perinuclear IF (S) [Titer] <1:20 titer Neg:<1:20 [facility] Work Phone: Comment on above: The presence of posi tive fluorescence exhibiting P-ANCA orC-ANCA patterns alone is not specific for the diagnosis ofWegener's Granulomatosis (WG) or microscopic polyangiitis.Decisions about treatment should not be based solely onANCA IFA results. The International ANCA Group Consensusrecommends follow up testing of positive sera with both ID-3 and MPO-ANCA enzyme immunoassays. As many as 5% serumsamples are positive only by EIA. Ref. AM J Clin Dikotg2900;111:507-513. Serum tissue transglutaminas e IgA antibody assay (units/volume)on 03-05-2022 tTG IgA Qn (S) <2 U/mL 0-3 [facility] Work Phone: Comment on above: Negative 0 - 3 Weak Positive 4 - 10 Positive >10 Tissue Transglutaminase (tTG) has been identified as the endomysial antigen. Studies have demonstr- ated that endomysial IgA antibodies have over 99% specificity for gluten sensitive enteropathy. Thin prep Papanicolaou smear with manual screeningon 03-05-2022 Thin prep Papanicolaou smear with manual screening 24 U/L 15-37 [facility] Work Phone: Thin prep Papanicolaou smear with manual screening 6 5-15 [facility] Work Phone: [phone] Thin prep Papanicolaou smear with manual screening 150 U/L 84-246 [facility] Work Phone: [phone] Thin prep Papanicolaou smear with manual screening 1.4 0.7-1.7 [facility] Work Phone: [phone] Total protein bloodon 2021 Protein [Mass/Vol] 7.2 g/dL 6.0-8.5 [facility] Work Phone: No Panel Informationon 11-21 Stool Calprotectin 61 ug/g 0-120 [facility] Work Phone: Comment on above: Concentration Interp retation Follow-Up<16 - 50 ug/g Normal None>50 -120 ug/g Borderline Re-evaluate in 4-6 weeks >120 ug/g Abnormal Repeat as clinically indicatedPerformed at: [facility] [address] [id number] Director: Jose Claros MD, Phone: [phone] HIV 1 and HIV-2 antibody ass ay with HIV-1 p24 antigen detectionon 11-20-2021 HIV 1+2 Ab+HIV1 p24 Ag IA Ql Non-Reactive Nonreactive [facility] Work Phone: No Panel Informationon 11-20 Bordetella pertussis IgG Antibody 1.92 index 0.00-0.94 [facility] Work Phone: Comment on above: Negative <0.95 Equiv ocal 0.95 - 1.04 Positive >1.04Performed at: [facility] [address] [id number] Director: Almas Saavedra PhD, Phone: [phone] at: [facility] [employer] [id number] Director: Jose Claros MD, Phone: [phone] Hepatitis A IgM Antibody Negative Negative [facility] Work Phone: Hepatitis B Core IgM Antibody Negative Negative [facility] Work Phone: Hepatitis C Antibody (EIA) <0.1 s/co ratio 0.0-0.9 [facility] Work Phone: Comment on above: Negative: < 0.8 Inde terminate: 0.8 - 0.9 Positive: > 0.9 The CDC recommends that a positive HCV antibody result be followed up with a HCV Nucleic Acid Amplification test (248728).Effective December 29, 2021 Hepatitis Panel (4) will be made non-orderable. [employer] offers order code [id number] Acute Hepatitis. Rubella IgG Antibody Reactive Nonreactive [facility] Work Phone: Comment on above: Antibody Results Int erpretation of Immune Status Non Reactive Presumed Non-Immune Equivocal Equivocal Reactive Presumed Immune Qualitative QuantiFERON-TB g old in tube teston 11-20-2021 M. tuberculosis tuberculin stim IFN-g Ql (Bld) 0.72 IU/mL . [facility] Work Phone: Serum Varicella zoster virus IgG antibody assay by immunoassay (units/volume)on 11-20-2021 VZV IgG IA Qn (S) 314 index Immune >165 [facility] Work Phone: Comment on above: Negative <135 Equivo mario 135 - 165 Positive >165A positive result generally indicates exposure to thepathogen or administration of specific immunoglobulins,but it is not indication of active infection or stageof disease. Serum mumps virus IgM antibo dy assay (units/volume)on 11-20-2021 MuV IgM Qn (S) < 0.80 AU 0.00-0.79 [facility] Work Phone: Comment on above: Negative < 0.80 Bord giovani 0.80 - 1.20 Positive > 1.20Note: The presence of IgM specific antibody should beinterpreted in conjunction with the patient's clinicalhistory and exposure risk when an acute infection issuspected. Serum or plasma hepatitis B virus surface antigen detection by immunoassayon 11-20-2021 HBV surface Ag IA Ql Negative Negative [facility] Work Phone: Thin prep Papanicolaou smear with manual screeningon 11-20-2021 Thin prep Papanicolaou smear with manual screening Comment . [facility] Work Phone: Comment on above: The QuantiFERON-TB G old Plus result is determined bysubtracting the Nil value from either TB antigen (Ag) tube.The mitogen tube serves as a control for the test. Thin prep Papanicolaou smear with manual screening 0.44 IU/mL . [facility] Work Phone: Thin prep Papanicolaou smear with manual screening 0.08 IU/mL . [facility] Work Phone: Thin prep Papanicolaou smear with manual screening > 10.00 IU/mL . [facility] Work Phone: Thin prep Papanicolaou smear with manual screening Positive Negative [facility] Work Phone: Comment on above: The [...] Auto (Unsp spec) [#/Vol] 2.55 10*3/uL 0.83-4.51 [facility] Work Phone: Basophil percentageon 2020 Bilirubin [Mass/Vol] 0.20 mg/dL 0.20-1.00 [facility] Work Phone: Comment on above: For patients on eltr ombopag therapy, use of Dimension [place] TBIL is not recommended. Chloride [Moles/Vol] 106 mmol/L 98-107 [facility] Work Phone: Eosinophils/100 WBC (Bld) 1.7 % 0-5 [facility] Work Phone: Glucose [Mass/Vol] 104 mg/dL 74-106 [facility] Work Phone: Comment on above: Fasting Glucose resu lt from 100 to 125 mg/dL suggests IMPAIRED HOMEOSTASIS per A.D.A. criteria.Please note revised GLUCOSE reference range effective 2017. Neutrophils (Bld) [#/Vol] 2.9 10*3/uL 2.0-7.7 [facility] Work Phone: Potassium [Moles/Vol] 3.8 mmol/L 3.5-5.1 [facility] Work Phone: Protein [Mass/Vol] 7.9 g/dL 6.4-8.2 [facility] Work Phone: Sodium [Moles/Vol] 136 mmol/L 136-145 [facility] Work Phone: WBC (Bld) [#/Vol] 6.0 10*3/uL 4.4-11.0 [facility] Work Phone: Blood erythrocytes count (nu mber/volume)on 07-28-2021 RBC (Bld) [#/Vol] 3.79 10*6/uL 4.2-5.4 [facility] Work Phone: Blood hemoglobin measurement (mass/volume)on 07-28-2021 Hemoglobin (Bld) [Mass/Vol] 11.7 g/dL 12.0-15.0 [facility] Work Phone: Blood lymphocytes/100 leukoc yteson 07-28-2021 Lymphocytes/100 WBC (Bld) 42.2 % 19-41 [facility] Work Phone: Blood monocytes/100 leukocyt eson 07-28-2021 Monocytes/100 WBC (Bld) 6.8 % 0-10 [facility] Work Phone: Blood platelet mean volumeon 07-28-2021 Platelet mean volume (Bld) [Entitic vol] 11.0 fL 6.2-12.0 [facility] Work Phone: Determination of erythrocyte mean corpuscular volume (MCV)on 07-28-2021 MCV (RBC) [Entitic vol] 92.1 fL 81-99 [facility] Work Phone: Erythrocyte sedimentation ra kushal 07-28-2021 ESR (Bld) [Velocity] 22 mm/h 0-30 [facility] Work Phone: Hematocrit Auto (Bld) [Volum e fraction]on 07-28-2021 Hematocrit (Bld) [Volume fraction] 34.9 % 37-47 [facility] Work Phone: Laboratory - Chemistry and C hemistry - challengeon 07-28-2021 ALP [Catalytic activity/Vol] 42 U/L 45-117 [facility] Work Phone: ALT [Catalytic activity/Vol] 76 U/L 13-56 [facility] Work Phone: CO2 [Moles/Vol] 24.0 mmol/L 21.0-32.0 [facility] Work Phone: Globulin (S) [Mass/Vol] 4.0 g/dL 2.2-4.2 [facility] Work Phone: Urea nitrogen/Creatinine [Mass ratio] 22.3 mg/mg 10-20 [facility] Work Phone: Laboratory - Hematology and Cell countson 07-28-2021 Basophils/100 WBC (Unsp spec) 0.7 % 0-1 [facility] Work Phone: Erythrocyte distribution width (RBC) [Entitic vol] 41.0 fL 35.1-43.9 [facility] Work Phone: Erythrocyte distribution width (RBC) [Ratio] 12.0 % 11.6-14.6 [facility] Work Phone: Immature granulocytes/100 WBC (Bld) 0.200 % 0.0-0.9 [facility] Work Phone: Comment on above: IG% - Immature Granu locytes (promyelocytes, myelocytes and metamyelocytes) > 1% indicates that a LEFT SHIFT is Present. MCH (RBC) [Entitic mass] 30.9 pg 27.0-32.0 [facility] Work Phone: [phone] Neutrophils/100 WBC (Bld) 48.4 % 47-70 [facility] Work Phone: Nucleated RBC/100 WBC (Bld) [Ratio] 0 % 0-5 [facility] Work Phone: [phone] MCHC Auto (RBC) [Mass/Vol]on 07-28-2021 MCHC (RBC) [Mass/Vol] 33.5 g/dL 32-36 [facility] Work Phone: No Panel Informationon 07-28 Estimated GFR (MDRD) Amer 146 mL/min >60 [facility] Work Phone: Comment on above: GFR Calc Estimated GFR (MDRD) Non-Af Amer 121 mL/min >60 [facility] Work Phone: Comment on above: Non- GFR Calc Miscellaneous Test See comment [facility] Work Phone: Comment on above: Scanned image report available in EMR Platelets bldon 07-28-2021 Platelets (Bld) [#/Vol] 262 10*3/uL 150-450 [facility] Work Phone: Serum or plasma C reactive p rotein measurement (mass/volume)on 07-28-2021 CRP [Mass/Vol] mg/L 0.0-3.0 [facility] Work Phone: Comment on above: C-Reactive Protein ( CRP) provides useful information for thediagnosis, therapy and monitoring of inflammatory processesand associated diseases. For the evaluation of Relative Riskfor Cardiovascular Disease, a High Sensitivity CRP (HSCRP)should be ordered. Serum or plasma albumin arielle urement (mass/volume)on 07-28-2021 Albumin [Mass/Vol] 3.9 g/dL 3.2-5.0 [facility] Work Phone: Serum or plasma albumin/glob ulin mass ratioon 07-28-2021 Albumin/Globulin [Mass ratio] 1.0 {ratio} 0.9-2.4 [facility] Work Phone: Serum or plasma calcium arielle urement (mass/volume)on 07-28-2021 Calcium [Mass/Vol] 9.0 mg/dL 8.5-10.1 [facility] Work Phone: Serum or plasma creatinine m easurement (mass/volume)on 07-28-2021 Creatinine [Mass/Vol] 0.63 mg/dL 0.55-1.02 [facility] Work Phone: Comment on above: The validity of the calculated GFR & GFRAA in patients over 70 years has not been determined. Clinical correlation is essential. Serum or plasma urea nitroge n measurement (mass/volume)on 07-28-2021 Urea nitrogen [Mass/Vol] 14 mg/dL 7-18 [facility] Work Phone: Thin prep Papanicolaou smear with manual screeningon 07-28-2021 Thin prep Papanicolaou smear with manual screening 30 U/L 15-37 [facility] Work Phone: Thin prep Papanicolaou smear with manual screening 6 5-15 [facility] Work Phone: Thin prep Papanicolaou smear with manual screening 207 U/L 84-246 [facility] Work Phone: CNOVon 06-30-2019 CNOV Office Visit ([place]ALK[place] ) -------- MARIXA GAY ([id number]) 1995 F CHT Date Time Provider Department 06/30/19 2:30 PM HENRIETTA AZUL (ERASTO) DEBORAH During your visit today, we recorded [...] (HUMIRA) 40 mg/0.4 mL sykt 0.4 mL. mv,iron,nft-SO-yhomvyb cmb.24 400 mcg tab mv,iron,aom-RT-qpzyotz supplement comb. no.24 400 mcg tablet Take [...] file Gets together: Not on file Attends denominational service: Not on file Active member of [...] with plan of care. ERASTO Shah PA-C, PA 06/30/2019 2:43 PM Signed ASSESSMENT/PLAN: 1. Acute [...] [J02.9] Cough [R05] Order(s):RAPID STREP TEST B/O [0131956] Order #: [id number] XR CHEST 2V FRONTAL/LAT [1384238] Order #: [id number] FUTURE GROUP A STREPTOCOCCUS BY PCR [SQGASPCR] Order #: [id number] benzonatate (TESSALON PERLE) 100 mg capsuleTake 1 capsule by mouth three times daily as needed.Disp: 30 capsuleRfl: 0 Prescriptions as of 06/30/2019 Sig: OMEPRAZOLE 20 MG DELAYED RELE* Take 20 mg by mouth once avis* ADALIMUMAB 40 MG/0.4 ML SUBCU* 0.4 mL. MV,IRON,DKN-GG-MHVPHYE SUPPLE* mv,iron,arz-QJ-cirosji supple* BENZONATATE 100 MG CAPSULE Take 1 [...] Status:Closed by HENRIETTA AZUL on 06/30/19 Normal [facility] Group A Strep by PCRon 06-30 GAS Specimen Source Throat Swab Normal [facility] Comment on above: Performed By: #### G ASPCR #### [facility] [address] [address] Group A Strep PCR Negative Normal [facility] Comment on above: Result Comment: This test was developed and its performance characteristics determined by [facility]'s Kamran Alma [facility] [place] ( [facility]). It has not been cleared or approved by the FDA. [facility] is regulated under CLIA as qualified to perform high complexity testing. This test is used for clinical purposes. It should not be regarded as investigational or for research. Performed By: #### G ASPCR #### [facility] [address] [address] PROGRESSon 06-30-2019 PROGRESS HNO ID: [id number] Author: Alexandra Chau Service: ? Author Type: [...] Chau June 30, 2019 3:39 PM Normal [facility] PROGRESS HNO ID: [id number] Author: Henrietta Billingsley (Haydee-C) HAYDEE Azul Service: ? Author Type: Physician Sports Coordinator Type: Progress Notes Filed: 06/30/2019 2:51 PM [...] (HUMIRA) 40 mg/0.4 mL sykt 0.4 mL. mv,iron,iws-OE-usijofo cmb.24 400 mcg tab mv,iron,qqj-JB-pbdngik supplement comb. no.24 400 mcg tablet Take [...] file Gets together: Not on file Attends denominational service: Not on file Active member of [...] plan of care. Henrietta Azul PA-C Normal [facility] XR CHEST 2V FRONTAL/LATon XR CHEST [...] spine noted. IMPRESSION: No acute radiographic abnormality. [employer] Inspector: DAVID Transcribe Date/Time: Jun 30 2019 3:57P Dictated by : BEATRIS TRAN MD This examination was interpreted and the report reviewed and electronically signed by: BEATRIS TRAN MD on Jun 30 2019 3:57PM EST [id number] Normal [facility] CNOVon 08-04-2018 CNOV Office Visit (INTMWS ) -------- DARRENMARIXA QUINTANILLA ([id number]) 1995 F CHT Date Time Provider Department 08/04/18 4:20 PM SHIRLEY SZYMANSKI (RANDALL) INTMWS During your visit today, we recorded the following information about you: Temperature Pulse Blood pressure Weight 98.2 degrees 64/minute 120/66 71.2 kg Shirley Szymanski APRN.CNP 08/05/2018 8:35 AM Signed CC bloody stools, history of ulcerative colitis [facility] Marixa Jolene Gay is a 23 year old female who presents with bloody diarrhea and fever. DIARRHEA:32856} occuring 7 to 8 stools/day on average. [...] Prozac [Fluoxetine Hcl]; Zoloft [Sertraline Hcl] MEDICATIONS mv,iron,kqo-RQ-laoiefm cmb.24 400 mcg tab mv,iron,bkg-UC-vjvngpe supplement comb. no.24 400 mcg tablet Take [...] here visiting family. She had notified her [employer] intelligence officer DR. Xenia Santana of current symptoms, he advised her to be evaluated in primary care. Called and spoke with Dr. Santana. Concerned about possible sepsis or C-diff. Recommended laboratory evaluation with: - CBC + DIFF - COMP METABOLIC PANEL - BLOOD CULTURE DRAW - BLOOD CULTURE DRAW - ENTERIC BACTERIAL PANEL BY PCR - C. DIFFICILE PCR - URINE CULTURE Orders sent to [facility], insurance will only cover their lab [...] Patient agreeable to treatment plan Shirley Szymanski APRN.MECHANICAL SYSTEMS CONTROL ENGINEER Referring Provider: XENIA SANTANA [[id number]] Allergies As of Date: 08/04/2018 Noted Allergy Reaction PROZAC (FLUOXETINE HCL) 05/30/2015 2 - Rash Comments: Also, not effective ZOLOFT (SERTRALINE HCL) 05/30/2015 2 - Rash Date Reviewed: 08/04/2018 Reviewed by: Ebonie Lopez Lobster Man - Fully Assessed Primary Visit Diagnosis:Fever, unspecified fever cause [R50.9] Other Visit Diagnoses:Bloody diarrhea [R19.7] 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 DIFFICILE PCR [SQCDPCR] Order #: [id number] URINE CULTURE [SQURCUL] Order #: [id number] FUTURE Prescriptions as of 08/04/2018 Sig: AMOXICILLIN 875 MG TABLET Take 1 tablet by mouth twice * MV,IRON,QSP-QI-BLLDXET SUPPLE* mv,iron,qkr-AM-rijbxbs supple* ADALIMUMAB 40 MG/0.4 ML SUBCU* 0.4 mL. PREDNISONE 20 MG TABLET Take 20 mg by mouth once avis* Problem List As Of Date 08/04/2018 Noted Resolved Depressive disorder [F32.9] INVALID FOR* Diarrhea [R19.7] INVALID FOR* Iron deficiency anemia [D50.9] INVALID FOR* Left sided colitis (HCC) [K51.50] INVALID FOR* Encounter Status:Closed by SHIRLEY SZYMANSKI CNP on 08/05/18 [facility] PROGRESSon 08-04-2018 PROGRESS HNO ID: [id number] Author: Shirley Oh) Stephon Service: (none) Author Type: Nurse Practitioner Type: Progress Notes Filed: 08/05/2018 8:35 AM Note Text: CC bloody stools, history of ulcerative colitis HPI Marixa Gay is a 23 year old female who presents with bloody diarrhea and fever. DIARRHEA:04778} occuring 7 to 8 stools/day on average. [...] Prozac [Fluoxetine Hcl]; Zoloft [Sertraline Hcl] MEDICATIONS mv,iron,wgr-WI-nhgasuv cmb.24 400 mcg tab mv,iron,dkk-YH-oertokj supplement comb. no.24 400 mcg tablet Take [...] here visiting family. She had notified her [employer] intelligence officer DR. Xenia Santana of current symptoms, he advised her to be evaluated in primary care. Called and spoke with Dr. Santana. Concerned about possible sepsis or C-diff. Recommended laboratory evaluation with: - CBC + DIFF - COMP METABOLIC PANEL - BLOOD CULTURE DRAW - BLOOD CULTURE DRAW - ENTERIC BACTERIAL PANEL BY PCR - C. DIFFICILE PCR - URINE CULTURE Orders sent to [facility], insurance will only cover their lab [...] Patient agreeable to treatment plan Shirley Szymanski APRN.MECHANICAL SYSTEMS CONTROL ENGINEER [facility] CNOVon 07-29-2018 CNOV Office Visit (UCWSTR ) -------- MARIXA GAY ([id number]) 1995 F T Date Time Provider Department 07/29/18 10:45 AM ROLF GRUBER [facility] During your visit today, we recorded the following information about you: Temperature Pulse Respiration Blood pressure 99.2 degrees 96/minute 16/minute 102/70 Weight 73.3 kg Rolf Gruber MD 07/29/2018 11:11 AM Signed Patient presents with: Sinusitis: x 4 days HPI: Feeling sick for [address] [place] Positive symptoms: Sore throat, Sinus pressure, Fever [...] (HUMIRA) 40 mg/0.4 mL sykt 0.4 mL. mv,iron,uat-ZG-tdvdedx cmb.24 400 mcg tab mv,iron,yot-MD-dsxpbsx supplement comb. no.24 400 mcg tablet Take [...] ADALIMUMAB 40 MG/0.4 ML SUBCU* 0.4 mL. MV,IRON,HZK-XK-MZAIEIM SUPPLE* mv,iron,zsq-PI-yfwmgql supple* PREDNISONE 20 MG TABLET Take 20 [...] Status:Closed by ROLF GRUBER MD on 07/29/18 [facility] PROGRESSon 07-29-2018 PROGRESS HNO ID: [id number] Author: Rolf Gruber Service: (none) Author Type: Physician Type: Progress Notes Filed: 07/29/2018 11:11 AM Note Text: Patient presents with: Sinusitis: x 4 days HPI: Feeling sick for [address] Positive symptoms: Sore throat, Sinus pressure, Fever [...] (HUMIRA) 40 mg/0.4 mL sykt 0.4 mL. mv,iron,giq-GB-rwiynks cmb.24 400 mcg tab mv,iron,kvy-LE-qmzxqhz supplement comb. no.24 400 mcg tablet Take [...] symptoms persist >5 days. Rolf Gruber MD [facility] Vital Signs Date Time Vital Sign Value Performing Clinician Facility 05-11-2025 13:52-0400 Body height 160.[address] Catrachito Mercedes MD Work Phone: 7(346)885-088787 [place] [address] 05-11-2025 13:52-0400 Body mass index (BMI) [Ratio] 35.6 kg/m2 Dr. Catrachito Mercedes MD Work Phone: 1(796)188-985345 [address] 05-11-2025 13:52-0400 Body weight 91.[address] Catrachito Mercedes MD Work Phone: 8(832)683-640045 [address] 05-11-2025 13:52-0400 Diastolic blood pressure 86 mm[Hg] Dr. Catrachito Mercedes MD Work Phone: 7(421)803-229945 [address] 05-11-2025 13:52-0400 Systolic blood pressure 130 mm[Hg] Dr. Catrachito Mercedes MD Work Phone: 8(049)296-123045 [address] 05-01-2025 14:59-0400 Body height 160.[address] Catrachito Mercedes MD Work Phone: 2(852)542-148445 [address] 05-01-2025 14:59-0400 Body mass index (BMI) [Ratio] 35.5 kg/m2 Dr. Catrachito Mercedes MD Work Phone: 4(145)314-756145 [address] 05-01-2025 14:59-0400 Body weight 90.[address] Catrachito Mercedes MD Work Phone: 9(219)641-375845 [address] 05-01-2025 14:59-0400 Diastolic blood pressure 78 mm[Hg] Dr. Catrachito Mercedes MD Work Phone: 8(009)384-607545 [address] 05-01-2025 14:59-0400 Systolic blood pressure 125 mm[Hg] Dr. Catrachito Mercedes MD Work Phone: 2(781)370-937645 [address] 04-06-2025 13:00-0400 Body height 160.[address] Catrachito Mercedes MD Work Phone: 9(367)202-933645 [address] 04-06-2025 13:00-0400 Body mass index (BMI) [Ratio] 34.4 kg/m2 Dr. Catrachito Mercedes MD Work Phone: 3(204)251-478645 [address] 04-06-2025 13:00-0400 Body weight 88.[address] Catrachito Mercedes MD Work Phone: 4(980)561-819556 [place] [address] 04-06-2025 13:00-0400 Diastolic blood pressure 79 mm[Hg] Dr. Catrachito Mercedes MD Work Phone: 5(077)781-130756 [place] [address] 04-06-2025 13:00-0400 Systolic blood pressure 138 mm[Hg] Dr. Catrachito Mercedes MD Work Phone: 4(162)423-652156 [place] [address] 03-09-2025 11:36-0400 Body height 160.[address] Catrachito Mercedes MD Work Phone: 6(718)986-966856 [place] [address] 03-09-2025 11:36-0400 Body mass index (BMI) [Ratio] 33.8 kg/m2 Dr. Catrachito Mercedes MD Work Phone: 2(303)203-719056 [place] [address] 03-09-2025 11:36-0400 Body weight 86.[address] Catrachito Mercedes MD Work Phone: 9(634)687-276556 [place] [address] 03-09-2025 11:36-0400 Diastolic blood pressure 85 mm[Hg] Dr. Catrachito Mercedes MD Work Phone: 7(171)292-741156 [place] [address] 03-09-2025 11:36-0400 Systolic blood pressure 129 mm[Hg] Dr. Catrachito Mercedes MD Work Phone: 7(475)903-574756 [place] [address] 02-23-2025 11:01-0400 Body height 160.[address] Catrachito Mercedes MD Work Phone: 8(346)804-888156 [place] [address] 02-23-2025 11:00-0400 Body mass index (BMI) [Ratio] 32.9 kg/m2 Dr. Catrachito Mercedes MD Work Phone: 2(953)591-856187 [place] [address] 02-23-2025 11:00-0400 Body weight 84.[address] Catrachito Mercedes MD Work Phone: 9(652)328-501356 [place] [address] 02-23-2025 11:00-0400 Diastolic blood pressure 86 mm[Hg] Dr. Catrachito Mercedes MD Work Phone: 3(090)850-783856 [place] [address] 02-23-2025 11:00-0400 Systolic blood pressure 135 mm[Hg] Dr. Catrachito Mercedes MD Work Phone: 1(054)045-276156 [place] [address] 02-06-2025 08:17-0400 Body height 160.[address] Catrachito Mercedes MD Work Phone: 6(725)875-930656 [place] [address] 02-06-2025 08:17-0400 Body mass index (BMI) [Ratio] 32.8 kg/m2 Dr. Catrachito Mercedes MD Work Phone: 3(858)307-298956 [place] [address] 02-06-2025 08:17-0400 Body weight 84.[address] Catrachito Mercedes MD Work Phone: 9(793)366-883056 [place] [address] 02-06-2025 08:17-0400 Diastolic blood pressure 70 mm[Hg] Dr. Catrachito Mercedes MD Work Phone: 8(311)146-882856 [place] [address] 02-06-2025 08:17-0400 Systolic blood pressure 118 mm[Hg] Dr. Catrachito Mercedes MD Work Phone: 6(606)141-214056 [place] [address] 02-02-2025 15:25-0400 Body height 160.[address] Catrachito Mercedes MD Work Phone: 8(523)922-322056 [place] [address] 02-02-2025 15:25-0400 Body mass index (BMI) [Ratio] 33 kg/m2 Dr. Catrachito Mercedes MD Work Phone: 9(936)370-031756 [place] [address] 02-02-2025 15:25-0400 Body weight 84.[address] Catrachito Mercedes MD Work Phone: [facility] 02-02-2025 15:25-0400 Diastolic blood pressure 86 mm[Hg] Dr. Catrachito Mercedes MD Work Phone: [facility] 02-02-2025 15:25-0400 Systolic blood pressure 143 mm[Hg] Dr. Catrachito Mercedes MD Work Phone: 5(911)315-771887 [place] [address] 01-25-2025 14:45-0400 Body height 160.[address] Catrachito Mercedes MD Work Phone: 2(216)224-875587 [place] [address] 01-25-2025 14:45-0400 Body mass index (BMI) [Ratio] 32.6 kg/m2 Dr. Catrachito Mercedes MD Work Phone: 3(825)295-516145 [address] 01-25-2025 14:45-0400 Body weight 83.[address] Catrachito Mercedes MD Work Phone: 0(655)001-818087 [place] [address] 01-25-2025 14:45-0400 Diastolic blood pressure 62 mm[Hg] Dr. Catrachito Mercedes MD Work Phone: [facility] 01-25-2025 14:45-0400 Systolic blood pressure 128 mm[Hg] Dr. Catrachito Mercedes MD Work Phone: [facility] 01-22-2025 11:18-0400 Respiratory rate 18 /min Amy Cherry RN [facility] 01-22-2025 11:17-0400 Diastolic blood pressure 76 mm[Hg] Amy Cherry RN [facility] 01-22-2025 11:17-0400 Heart rate 85 /min Amy Cherry RN [facility] 01-22-2025 11:17-0400 SaO2% (BldA) [Mass fraction] 100 % Amy Cherry RN [facility] 01-22-2025 11:17-0400 Systolic blood pressure 145 mm[Hg] Amy Cherry RN [facility] 01-22-2025 11:16-0400 Body temperature 98.01 [degF] Amy Cherry RN [facility] 12-11-2024 14:54-0400 Body height 160 cm Denise Ordonez MD Work Phone: [facility] 12-11-2024 14:54-0400 Body mass index (BMI) [Ratio] 32.6 kg/m2 Denise Ordonez MD Work Phone: [facility] 12-11-2024 14:54-0400 Body temperature 97.3 [degF] Denise Ordonez MD Work Phone: [facility] 12-11-2024 14:54-0400 Body weight 83.46 kg Denise Ordonez MD Work Phone: [facility] 12-11-2024 14:54-0400 Diastolic blood pressure 63 mm[Hg] Denise Ordonez MD Work Phone: [facility] 12-11-2024 14:54-0400 Heart rate 73 /min Denise Ordonez MD Work Phone: [facility] 12-11-2024 14:54-0400 SaO2% (BldA) [Mass fraction] 98 % Denise Ordonez MD Work Phone: [facility] 12-11-2024 14:54-0400 Systolic blood pressure 122 mm[Hg] Denise Ordonez MD Work Phone: [facility] 11-22-2024 10:52-0400 Diastolic blood pressure 63 mm[Hg] Henrietta Herndon MD Work Phone: [facility] 11-22-2024 10:52-0400 Heart rate 77 /min Henrietta Herndon MD Work Phone: [facility] 11-22-2024 10:52-0400 Respiratory rate 16 /min Henrietta Herndon MD Work Phone: [facility] 11-22-2024 10:52-0400 SaO2% (BldA) [Mass fraction] 100 % Henrietta Herndon MD Work Phone: [facility] 11-22-2024 10:52-0400 Systolic blood pressure 107 mm[Hg] Henrietta Herndon MD Work Phone: [facility] 11-22-2024 10:22-0400 Body temperature 99.1 [degF] Henrietta Herndon MD Work Phone: [facility] 11-22-2024 08:38-0400 Body height 160 cm Henrietta Herndon MD Work Phone: [facility] 11-22-2024 08:38-0400 Body mass index (BMI) [Ratio] 33.59 kg/m2 Henrietta Herndon MD Work Phone: [facility] 11-22-2024 08:38-0400 Body weight 86 kg Henrietta Herndon MD Work Phone: [facility] 10-11-2024 10:33-0500 Diastolic blood pressure 62 mm[Hg] Henrietta Herndon MD Work Phone: [facility] 10-11-2024 10:33-0500 Heart rate 76 /min Henrietta Herndon MD Work Phone: [facility] 10-11-2024 10:33-0500 Respiratory rate 16 /min Henrietta Herndon MD Work Phone: [facility] 10-11-2024 10:33-0500 SaO2% (BldA) [Mass fraction] 99 % Henrietta Herndon MD Work Phone: [facility] 10-11-2024 10:33-0500 Systolic blood pressure 112 mm[Hg] Henrietta Herndon MD Work Phone: [facility] 10-11-2024 09:47-0500 Body temperature 97.9 [degF] Henrietta Herndon MD Work Phone: [facility] 10-11-2024 07:55-0500 Body height 160 cm Henrietta Herndon MD Work Phone: [facility] 10-11-2024 07:55-0500 Body mass index (BMI) [Ratio] 32.57 kg/m2 Henrietta Herndon MD Work Phone: [facility] 10-11-2024 07:55-0500 Body weight 83.4 kg Henrietta Herndon MD Work Phone: [facility] 08-14-2024 11:03-0500 Diastolic blood pressure 88 mm[Hg] Gavino Tristan MD Work Phone: [facility] 08-14-2024 11:03-0500 Heart rate 64 /min Gavino Tristan MD Work Phone: [facility] 08-14-2024 11:03-0500 Respiratory rate 18 /min Gavino Tristan MD Work Phone: [facility] 08-14-2024 11:03-0500 SaO2% (BldA) [Mass fraction] 99 % Gavino Tristan MD Work Phone: [facility] 08-14-2024 11:03-0500 Systolic blood pressure 143 mm[Hg] Gavino Tristan MD Work Phone: [facility] 08-14-2024 10:44-0500 Body temperature 97 [degF] Gavino Tristan MD Work Phone: [facility] 08-14-2024 10:32-0500 Body height 160 cm Gavino Tristan MD Work Phone: [facility] 08-14-2024 10:32-0500 Body mass index (BMI) [Ratio] 32.65 kg/m2 Gavino Tristan MD Work Phone: [facility] 08-14-2024 10:32-0500 Body weight 83.6 kg Gavino Tristan MD Work Phone: [facility] 07-14-2024 13:31-0500 Body height 160 cm Imelda Pollard MD Work Phone: [facility] 07-14-2024 13:31-0500 Body mass index (BMI) [Ratio] 32.31 kg/m2 Imelda Pollard MD Work Phone: [facility] 07-14-2024 13:31-0500 Body weight 82.72 kg Imelda Pollard MD Work Phone: [facility] 07-14-2024 13:31-0500 Diastolic blood pressure 79 mm[Hg] Imelda Pollard MD Work Phone: [facility] 07-14-2024 13:31-0500 Heart rate 64 /min Imelda Pollard MD Work Phone: [facility] 07-14-2024 13:31-0500 Systolic blood pressure 128 mm[Hg] Imelda Pollard MD Work Phone: [facility] 01-25-2024 11:08-0400 Body height 160 cm Sarah Srinivas CHARGEBACK ANALYST-MECHANICAL SYSTEMS CONTROL ENGINEER Work Phone: [facility] 01-25-2024 11:08-0400 Body mass index (BMI) [Ratio] 31.18 kg/m2 Sarah Espino CHARGEBACK ANALYST-MECHANICAL SYSTEMS CONTROL ENGINEER Work Phone: [facility] 01-25-2024 11:08-0400 Body weight 79.83 kg Sarah Espino CHARGEBACK ANALYST-MECHANICAL SYSTEMS CONTROL ENGINEER Work Phone: [facility] 12-09-2023 13:23-0400 Body height 160.[address] Domo Weaver Work Phone: [facility] 12-09-2023 13:23-0400 Body mass index (BMI) [Ratio] 32.9 kg/m2 Dr. Domo Weaver Work Phone: [facility] 12-09-2023 13:23-0400 Body weight 84.[address] Domo Weaver Work Phone: [facility] 12-09-2023 13:23-0400 Diastolic blood pressure 87 mm[Hg] Dr. Domo Weaver Work Phone: [facility] 12-09-2023 13:23-0400 Systolic blood pressure 138 mm[Hg] Dr. Domo Weaver Work Phone: [facility] 10-01-2023 13:00-0500 Body temperature 97.2 [degF] No Primary Care Physician [facility] 10-01-2023 13:00-0500 Diastolic blood pressure 54 mm[Hg] No Primary Care Physician [facility] 10-01-2023 13:00-0500 Heart rate 55 /min No Primary Care Physician [facility] 10-01-2023 13:00-0500 Respiratory rate 16 /min No Primary Care Physician [facility] 10-01-2023 13:00-0500 SaO2% (BldA) [Mass fraction] 100 % No Primary Care Physician [facility] 10-01-2023 13:00-0500 Systolic blood pressure 107 mm[Hg] No Primary Care Physician [facility] 10-01-2023 11:19-0500 Body height 160.02 cm No Primary Care Physician [facility] 10-01-2023 11:19-0500 Body mass index (BMI) [Ratio] 31.6 kg/m2 No Primary Care Physician [facility] 10-01-2023 11:19-0500 Body weight 81 kg No Primary Care Physician [facility] 08-27-2023 14:07-0500 Diastolic Blood Pressure Non-Invasive 56 mm[Hg] ERNA TROTTER MD [facility] 08-27-2023 14:07-0500 Systolic Blood Pressure Non-Invasive 102 mm[Hg] ERNA TROTTER MD [facility] 08-27-2023 13:22-0500 Diastolic Blood Pressure Non-Invasive 64 mm[Hg] ERNA TROTTER MD [facility] 08-27-2023 13:22-0500 Heart rate 65 /min ERNA TROTTER MD [facility] 08-27-2023 13:22-0500 Respiratory rate 12 /min ERNA TROTTER MD [facility] 08-27-2023 13:22-0500 Systolic Blood Pressure Non-Invasive 117 mm[Hg] ERNA TROTTER MD [facility] 08-27-2023 13:01-0500 Diastolic Blood Pressure Non-Invasive 99 mm[Hg] ERNA TROTTER MD [facility] 08-27-2023 13:01-0500 Heart rate 61 /min ERNA TROTTER MD [facility] 08-27-2023 13:01-0500 Respiratory rate 15 /min ERNA TROTTER MD [facility] 08-27-2023 13:01-0500 Systolic Blood Pressure Non-Invasive 121 mm[Hg] ERNA TROTTER MD [facility] 08-27-2023 12:55-0500 Heart rate 51 /min ERNA TROTTER MD [facility] 08-27-2023 12:55-0500 Respiratory rate 19 /min ERNA TROTTER MD [facility] 08-27-2023 12:45-0500 Body temperature 97.52 [degF] ERNA TROTTER MD [facility] 08-27-2023 12:35-0500 Respiratory Rate - Anes 32 br/min ERNA TROTTER MD [facility] 08-27-2023 12:30-0500 Respiratory Rate - Anes 10 br/min ERNA TROTTER MD [facility] 08-27-2023 12:25-0500 Respiratory Rate - Anes 10 br/min ERNA TROTTER MD [facility] 08-27-2023 10:13-0500 Body height 160 cm ERNA TROTTER MD [facility] 08-27-2023 10:13-0500 Body temperature 97.52 [degF] ERNA TROTTER MD [facility] 08-27-2023 10:13-0500 Body weight 75 kg ERNA TROTTER MD [facility] 08-27-2023 10:13-0500 Heart rate 63 /min ERNA TROTTER MD [facility] 08-13-2023 07:38-0500 Blood Pressure Location ERNA TROTTER MD [facility] 08-13-2023 07:38-0500 Body height 160 cm ERNA TROTTER MD [facility] 08-13-2023 07:38-0500 Body weight 79.5 kg ERNA TROTTER MD [facility] 08-13-2023 07:38-0500 Body weight 31.05 kg/m2 ERNA TROTTER MD [facility] 08-13-2023 07:38-0500 Diastolic Blood Pressure Non-Invasive 64 mm[Hg] ERNA TROTTER MD [facility] 08-13-2023 07:38-0500 Heart rate 78 /min ERNA TROTTER MD [facility] 08-13-2023 07:38-0500 Respiratory rate 20 /min ERNA TROTTER MD [facility] 08-13-2023 07:38-0500 Systolic Blood Pressure Non-Invasive 110 mm[Hg] ERNA TROTTER MD [facility] 04-10-2022 14:39-0400 Body temperature 97.1 [degF] No Primary Care Physician [facility] Work Phone: 04-10-2022 14:39-0400 Diastolic blood pressure 61 mm[Hg] No Primary Care Physician [facility] Work Phone: 04-10-2022 14:39-0400 Heart rate 54 /min No Primary Care Physician [facility] Work Phone: 04-10-2022 14:39-0400 Respiratory rate 16 /min No Primary Care Physician [facility] Work Phone: 04-10-2022 14:39-0400 SaO2% (BldA) [Mass fraction] 99 % No Primary Care Physician [facility] Work Phone: 04-10-2022 14:39-0400 Systolic blood pressure 115 mm[Hg] No Primary Care Physician [facility] Work Phone: 04-10-2022 12:44-0400 Body height 160.02 cm No Primary Care Physician [facility] Work Phone: 04-10-2022 12:44-0400 Body mass index (BMI) [Ratio] 26.5 kg/m2 No Primary Care Physician [facility] Work Phone: 04-10-2022 12:44-0400 Body weight 68.03 kg No Primary Care Physician [facility] Work Phone: 03-05-2022 15:37-0400 Body height 160.02 cm No Primary Care Physician [facility] Work Phone: 03-05-2022 15:37-0400 Body mass index (BMI) [Ratio] 27.3 kg/m2 No Primary Care Physician [facility] Work Phone: 03-05-2022 15:37-0400 Body weight 69.85 kg No Primary Care Physician [facility] Work Phone: 03-05-2022 15:37-0400 Diastolic blood pressure 70 mm[Hg] No Primary Care Physician [facility] Work Phone: 03-05-2022 15:37-0400 Heart rate 65 /min No Primary Care Physician [facility] Work Phone: 03-05-2022 15:37-0400 SaO2% (BldA) [Mass fraction] 98 % No Primary Care Physician [facility] Work Phone: 03-05-2022 15:37-0400 Systolic blood pressure 123 mm[Hg] No Primary Care Physician [facility] Work Phone: Encounters Encounter Date Encounter Type Care Provider Facility Start: 05-11-2025 End: 05-11-[address] Catrachito Mercedes MD Work Phone: [facility] Start: 05-11-2025 End: 05-11-2025 Patient encounter procedure Iesha Lo [facility] Work Phone: Start: 05-08-2025 End: 05-08-[address] PATRICK OAKES MD Facility:A Start: 05-08-2025 End: 05-08-2025 ambulatory NO PRIMARY CARE [facility] Start: 05-01-2025 End: 05-01-[address] Carmen Lugo MD -[facility] Work Phone: Start: 05-01-2025 End: 05-01-[address] Catrachito Mercedes MD Work Phone: [facility] Start: 04-20-2025 End: 04-20-2025 ambulatory NO PRIMARY CARE [facility] Start: 04-06-2025 End: 04-06-2025 Patient encounter procedure Iesha NASCIMENTO -[facility] Work Phone: Start: 04-06-2025 End: 04-06-[address] Catrachito Mercedes MD Work Phone: [facility] Start: 03-10-2025 End: 03-10-[address] Catrachito Mercedes MD Work Phone: -Laboratory Start: 03-10-2025 End: 03-10-2025 Patient encounter procedure Domo Weaver DO -Laboratory Work Phone: Start: 03-09-2025 End: 03-09-[address] Carmen Lugo MD -[facility] Work Phone: Start: 03-09-2025 End: 03-10-[address] Catrachito Mercedes MD Work Phone: -[facility] Start: 02-23-2025 End: 02-23-[address] Marcia Yen DO -[facility] Work Phone: Start: 02-23-2025 End: 02-23-[address] Catrachito Mercedes MD Work Phone: -[facility] Start: 02-06-2025 End: 02-06-2025 Patient encounter procedure Iesha Lo [facility] -[facility] Work Phone: Start: 02-06-2025 End: 02-06-[address] Catrachito Mercedes MD Work Phone: [facility] Work Phone: Start: 02-06-2025 End: 02-06-2025 ambulatory Catrachito Mercedes Facility:[facility] Start: 02-02-2025 End: 02-02-[address] Catrachito Mercedes MD Work Phone: [facility] Work Phone: Start: 02-02-2025 End: 02-02-2025 Patient encounter procedure Mary Beth NASCIMENTO -[facility] Work Phone: Start: 02-02-2025 End: 02-02-2025 ambulatory Domo Weaver Facility:[facility] Start: 01-26-2025 End: 01-26-[address] Carmen Lugo MD -[facility] Work Phone: Start: 01-26-2025 End: 01-26-[address] Catrachito Mercedes MD Work Phone: [facility] Work Phone: Start: 01-25-2025 End: 01-25-2025 Patient encounter procedure Katelyn Benitez CHARGEBACK ANALYST-MECHANICAL SYSTEMS CONTROL ENGINEER Work Phone: Nicol Dhaliwal Comment on above: Encounter to determi ne viability of , single or unspecified fetus (Primary Dx) Start: 01-25-2025 End: 01-25-2025 ambulatory KATELYN Batres [facility] Start: 01-22-2025 End: 01-22-2025 Emergency department patient visit DENISE ORDONEZ [facility] Emergency Medicine Comment on above: Vaginal discharge (P rimary Dx) Start: 01-18-2025 End: 01-18-2025 ambulatory KATELYN Batres ELI [facility] Start: 01-11-2025 End: 01-11-2025 Patient encounter procedure Sarah Espino CHARGEBACK ANALYST-MECHANICAL SYSTEMS CONTROL ENGINEER Work Phone: Nicol [facility]haliwal Comment on above: Encounter to determi ne viability of , single or unspecified fetus (Primary Dx) Start: 01-11-2025 End: 01-11-2025 ambulatory SARAH Analilia RSINIVAS [facility] Start: 01-09-2025 End: 01-09-2025 ambulatory DENISE ORDONEZ [facility] Start: 01-06-2025 End: 01-06-[address] Catrachito Mercedes MD Work Phone: [facility] Work Phone: Start: 01-06-2025 End: 01-06-2025 Patient encounter procedure Domo Weaver DO -Laboratory Work Phone: Start: 01-05-2025 End: 01-06-2025 ambulatory DENISE ORDONEZ [facility] Start: 01-01-2025 End: 01-01-2025 ambulatory Domo Weaver Facility:[facility] Start: 01-01-2025 End: 01-01-2025 Patient encounter procedure Domo Weaver DO -[facility] Work Phone: Start: 12-26-2024 End: 12-26-2024 Subsequent hospital visit by physician Gavino Tristan MD Work Phone: Nicol Dhaliwal Comment on above: Encounter for assist ed reproductive fertility cycle Start: 12-26-2024 End: 12-26-2024 ambulatory DENISE ORDONEZ [facility] Start: 12-20-2024 End: 12-20-2024 Office outpatient new 30 minutes Anabell Rogel MD Work Phone: [facility] Comment on above: Plantar wart (Primar y Dx); Dermatologic problem Start: 12-20-2024 End: 12-20-2024 ambulatory ANABELL DAVALOS GERRY [facility] Ambulatory Start: 12-20-2024 End: 12-20-2024 ambulatory DENISE ORDONEZ [facility] Start: 12-15-2024 End: 12-15-2024 Professional / ancillary services management Mac [id number] [facility]hali[facility] Comment on above: Female infertility Start: 12-15-2024 End: 12-15-2024 ambulatory IMELDA POLLARD [facility] Start: 12-11-2024 End: 12-11-2024 Initial preventive medicine new pt age 18-39yrs Denise Ordonez MD Work Phone: [facility] Comment on above: Healthcare maintenan ce (Primary Dx); Hypovitaminosis D; Polycystic ovarian disease; Crohn's disease of colon without complication (Multi) Start: 12-11-2024 End: 12-11-2024 Patient encounter status Denise Ordonez MD Work Phone: [facility] Work Phone: Start: 12-11-2024 End: 12-11-2024 ambulatory DENISE Billingsley [facility] Start: 12-11-2024 End: 12-11-2024 Encounter for general adult medical examination without abnormal findings DENISE L [facility] Start: 12-04-2024 End: 12-04-2024 ambulatory IMELDA POLLARD [facility] Start: 11-22-2024 End: 11-22-2024 Subsequent hospital visit by physician Henrietta Herndon MD Work Phone: Nicol [facility] Comment on above: Encounter for assist ed reproductive fertility cycle Start: 11-22-2024 End: 11-22-2024 ambulatory HENRIETTA HERNDON [facility] Start: 11-21-2024 End: 11-21-2024 ambulatory DENISE [facility] Start: 11-21-2024 End: 11-21-2024 Encounter for blood typing [facility] Start: 11-20-2024 End: 11-20-2024 Patient encounter status [facility] Work Phone: Start: 11-20-2024 End: 11-20-2024 Professional / ancillary services management [facility] [id number] [facility] Nicol Dhaliwal Comment on above: Fertility testing (P rimary Dx); Female infertility; Screening for diabetes mellitus; Encounter for Rh blood typing; Screening for STDs (sexually transmitted diseases); Screening for thyroid disorder Start: 11-20-2024 End: 11-20-2024 ambulatory ALEJANDRA Sargent [facility] Start: 11-20-2024 End: 11-20-2024 Encounter for blood typing ALEJANDRA Sargent [facility] Start: 11-18-2024 End: 11-18-2024 Professional / ancillary services management [facility] [id number] [facility] Nicol Dhaliwal Comment on above: Female infertility Start: 11-18-2024 End: 11-18-2024 ambulatory ALEJANDRA Sargent [facility] Start: 11-16-2024 End: 11-16-2024 Professional / ancillary services management [facility] [id number] [facility]haliwal Comment on above: Female infertility Start: 11-16-2024 End: 11-16-2024 ambulatory ALEJANDRA Sargent [facility] Start: 11-14-2024 End: 11-14-2024 Professional / ancillary services management Mac [id number] [facility] Nicol [facility]haliwal Comment on above: Female infertility Start: 11-14-2024 End: 11-14-2024 ambulatory ALEJANDRA aSrgent [facility] Start: 11-08-2024 End: 11-08-2024 Professional / ancillary services management Mac [id number] [facility] Nicol Dhaliwal Comment on above: Female infertility Start: 11-08-2024 End: 11-08-2024 ambulatory ALEJANDRA Sargent [facility] Start: 10-11-2024 End: 10-11-2024 Subsequent hospital visit by physician Henrietta Herndon MD Work Phone: Nicol Dhaliwal Comment on above: Encounter for assist ed reproductive fertility cycle Start: 10-11-2024 End: 10-11-2024 ambulatory HENRIETTA HERNDON [facility] Start: 10-10-2024 End: 10-10-2024 [facility] Start: 10-09-2024 End: 10-09-2024 Professional / ancillary services management Mac [id number] [facility] Nicol Dhaliwal Comment on above: Female infertility Start: 10-09-2024 End: 10-09-2024 ambulatory ALEJANDRA Sargent [facility] Start: 10-08-2024 End: 10-08-2024 Professional / ancillary services management Mac [id number] [facility] Dhaliwal Comment on above: Female infertility Start: 10-08-2024 End: 10-08-2024 ambulatory ALEJANDRA Sargent [facility] Start: 10-07-2024 End: 10-07-2024 Professional / ancillary services management Mac [id number] [facility] Nicol Dhaliwal Comment on above: Female infertility Start: 10-07-2024 End: 10-07-[address] [facility] Start: 10-05-2024 End: 10-05-2024 Professional / ancillary services management [facility] [id number] [facility] Nicol Dhaliwal Comment on above: Female infertility Start: 10-05-2024 End: 10-05-[address] [facility] Start: 10-03-2024 End: 10-03-2024 ambulatory IMELDA POLLARD [facility] Start: 09-29-2024 End: 09-29-2024 ambulatory [facility] Ambulatory Start: 09-27-2024 End: 09-27-2024 Professional / ancillary services management [facility] [id number] [facility] Nicol Dhaliwal Comment on above: Arrived Female infertility Start: 09-27-2024 End: 09-27-[address] [facility] Start: 09-19-2024 End: 09-19-2024 [address] [facility] Ambulatory Start: 09-15-2024 End: 09-15-2024 ambulatory [facility] Ambulatory Start: 09-15-2024 End: 09-15-2024 Encounter for general adult medical examination without abnormal findings [facility] Ambulatory Start: 08-14-2024 End: 08-14-2024 Subsequent hospital visit by physician Gavino Tristan MD Work Phone: Nicol Dhaliwal Comment on above: Endometritis (Primar y Dx); Fertility testing Start: 08-14-2024 End: 08-14-2024 ambulatory GAVINO TRISTAN [facility] Start: 07-24-2024 ambulatory Catrachito Mercedes Facilit y:[facility] Start: 07-14-2024 End: 07-14-2024 Patient encounter procedure Imelda Pollard MD Work Phone: Nicol [facility]hali[facility] Comment on above: Fertility testing (P rimary Dx); Encounter for preprocedural laboratory examination; Female fertility problem [N97.9] Start: 07-14-2024 End: 07-14-2024 Patient encounter status Imelda Pollard MD Work Phone: [facility] Work Phone: Start: 07-14-2024 End: 07-14-2024 ambulatory IMELDA POLLARD [facility] Start: 07-14-2024 End: 07-14-2024 Encounter for preprocedural laboratory examination [facility] Start: 07-12-2024 End: 07-12-2024 ambulatory Nastamichel Halemadi Facility:[facility] [place] [place] Start: 06-29-2024 End: 06-29-2024 ambulatory [facility] Facility:[facility] [place] [place] Start: 06-24-2024 End: 06-24-2024 ambulatory [facility] Facility:[facility] Start: 06-01-2024 End: 06-01-2024 ambulatory [facility] Facility:[facility] [place] [place] Start: 05-26-2024 End: 05-26-2024 ambulatory [facility] Facility:[facility] Start: 05-04-2024 End: 05-04-2024 ambulatory [facility] Facility:[facility] [place] [place] Start: 05-04-2024 End: 05-04-2024 ambulatory [facility] Facility:[facility] Start: 01-25-2024 End: 01-25-2024 Telemedicine consultation with patient Sarah Espino CHARGEBACK ANALYST-MECHANICAL SYSTEMS CONTROL ENGINEER Work Phone: Nicol Dhaliwal Comment on above: Female infertility ( Primary Dx); Endometriosis Start: 12-11-2023 End: 12-11-[address] Domo Weaver Work Phone: [facility] Work Phone: Start: 12-11-2023 End: 12-11-[address] Domo Weaver Work Phone: [facility]-Laboratory, Specimen Work Phone: Start: 12-09-2023 End: 12-09-[address] Domo Weaver Work Phone: [facility] Work Phone: Start: 12-09-2023 End: 12-09-[address] Domo Weaver Work Phone: [facility]-Laboratory, Specimen Work Phone: Start: 12-09-2023 End: 12-09-[address] Domo Weaver Work Phone: [facility] Work Phone: Start: 11-25-2023 End: 11-26-2023 ambulatory CATRACHITO MERCEDES MD Facility:A Start: 11-06-2023 End: 11-06-2023 ambulatory No Primary Care Physician [facility] Work Phone: Start: 11-06-2023 End: 11-06-2023 Patient encounter procedure No Primary Care Physician [facility]-Laboratory Work Phone: Start: 10-01-2023 Non-patient / Non-visit No Primary Care Physician [facility] Start: 10-01-2023 End: 10-01-2023 Admission to same day surgery center No Primary Care Physician [facility]-Endoscopy Work Phone: Start: 10-01-2023 End: 10-01-2023 ambulatory No Primary Care Physician [facility] Work Phone: Start: 08-27-2023 End: 08-27-2023 ambulatory ERNA TROTTER MD Facility:[facility] Start: 08-27-2023 End: 08-27-2023 SAME DAY STAY ERNA TROTTER MD [facility] Start: 08-13-2023 End: 08-14-2023 ambulatory ERNA TROTTER MD Facility:[facility] Start: 08-13-2023 End: 08-13-2023 Admission to [facility] ERNA TROTTER MD [facility] Start: 08-07-2023 End: 08-07-2023 ambulatory No Primary Care Physician [facility] Work Phone: Start: 08-07-2023 End: 08-07-2023 Patient encounter procedure No Primary Care Physician [facility]-Laboratory, Specimen Work Phone: Start: 08-03-2023 End: 08-03-2023 ambulatory No Primary Care Physician [facility] Work Phone: Start: 08-03-2023 End: 08-03-2023 Patient encounter procedure No Primary Care Physician [facility] Work Phone: Start: 07-29-2023 End: 07-30-2023 ambulatory ERNA TROTTER MD Facility:[facility] Start: 04-20-2023 End: 04-25-2023 ambulatory CATRACHITO MERCEDES MD Facility:[facility] Start: 04-09-2023 Telephone encounter Landy cintronman CHARGEBACK ANALYST - MECHANICAL SYSTEMS CONTROL ENGINEER Work Phone: [facility] Comment on above: NO SURPRISE ACT New Patient Start: 04-05-2023 Telephone encounter Galina diaz MD Work Phone: [facility] Comment on above: Appointment Request Start: 04-10-2022 End: 04-10-2022 Patient encounter procedure No Primary Care Physician [facility]-Medical Out Start: 03-05-2022 End: 03-05-2022 Patient encounter procedure No Primary Care Physician [facility]-Laboratory Start: 03-05-2022 End: 03-05-2022 Patient encounter procedure No Primary Care Physician [facility] Gastroenterology Start: 11-26-2021 End: 11-26-2021 Patient encounter procedure No Primary Care Physician [facility]-Radiology, [place] Start: 11-21-2021 End: 11-21-2021 Patient encounter procedure No Primary Care Physician [facility]Laboratory, Specimen Start: 11-20-2021 End: 11-20-2021 Patient encounter procedure No Primary Care Physician [facility]Laboratory Start: 10-22-2021 End: 10-22-2021 Patient encounter procedure No Primary Care Physician [facility] Gastro Virtual Start: 07-28-2021 Patient encounter procedure No Primary Care Physician [facility]Laboratory Start: 07-28-2021 End: 07-28-2021 Patient encounter procedure No Primary Care Physician [facility] Gastroenterology Procedures Date Procedure Procedure Detail Performing Clinician Start: 03-10-2025 Total iron binding capacity measurement Dr. Catrachito Mercedes MD Work Phone: Start: 02-06-[address] Catrachito Mercedes [...] HCV Quant by PCR testing - HCVPCR #[id number] Non Reactive: < 0.8 Equivocal: >/= 0.8 to < 1.0 Reactive: >/= 1.0The CDC requires that a reactive/equivocal HCV antibody result be sent out for confirmation. HCV Quant by PCR testing. Start: 02-06-[address] Catracihto Mercedes MD Work Phone: Comment on above: Antibody Result: InterpretationNon-React carmen: Non-ImmuneReactive: ImmuneThe following results were obtained with the [employer] Rubella IgG assay. Results from assays of other manufacturers cannot be used interchangeably. Start: 02-06-2025 Serologic test for syphilis Dr. Catrachito Mercedes MD Work Phone: Start: 02-02-[address] Catrachito Mercedes MD Work Phone: Comment on above: Test Ordered: [id number] Ustekinumab Drug + AntibodyUstekinumab 3.9 ug/mL ES [...] Maintenance Study. Advances in AIBD. May 2017.3. Royertat R, et al. Clin Gastroenterol Hepatol 2017;15: 7619-5951.4. Tessa MORA, et al. Br J Dermatol;2015:173;855-857.5. Grover H, et al. PLOS ONE DOI;10:1371/journal.pone.9532414.6. Allan L, et al. Br J Dermatol 2014;170:261-273.These tests were developed and their performancecharacteristics determined by [employer]. They have not beencleared or approved by the Food and Drug Administration.However, both drug and anti-drug antibody assays have beendeveloped and validated in accordance with FDA Guidance forIndustry documents: Bioanalytical Method Validation (2013)and Assay Development and Validation for ImmunogenicityTesting of Therapeutic Protein Products (2016).Performed at: [facility] [address] [id number] Director: Gregg Roberto MD, Phone: [phone] at: [address] [id number] Director: lAmas Saavedra PhD, Phone: [phone] Start: 01-22-2025 Us uterus 14 wk transabdl 08/30 gestat Zane Pryor CHARGEBACK ANALYST-MECHANICAL SYSTEMS CONTROL ENGINEER Work Phone: Start: 01-22-2025 Blood typing serologic rh (d) Zane Pryor CHARGEBACK ANALYST-MECHANICAL SYSTEMS CONTROL ENGINEER Work Phone: Start: 01-22-2025 Comprehensive metabolic panel Zane Pryor CHARGEBACK ANALYST-MECHANICAL SYSTEMS CONTROL ENGINEER Work Phone: Start: 01-22-2025 Smr prim src wet mount nfct agt Zane Pryor CHARGEBACK ANALYST-MECHANICAL SYSTEMS CONTROL ENGINEER Work Phone: Start: 01-22-2025 Urnls dip stick/tablet rgnt auto w/o microscopy Zane Pryor CHARGEBACK ANALYST-MECHANICAL SYSTEMS CONTROL ENGINEER Work Phone: Start: 12-26-2024 Embryo transfer intrauterine Imelda pollock MD Work Phone: Start: 12-26-2024 Ultrasonic guidance intraoperative Jose Pollard MD Work Phone: Start: 12-20-2024 DESTRUCTION OF LESION Anabell Rogel MD Work Phone: Start: 12-20-2024 Lipid 1996 panel - Serum or Plasma Bill Tristan MD Work Phone: Start: 11-22-2024 Follicle puncture oocyte retrieval any method Katelyn Benitez APRN-MECHANICAL SYSTEMS CONTROL ENGINEER Work Phone: Start: 11-20-2024 Us pelvic nonobstetric [...] puncture oocyte retrieval any method Katelyn Benitez APRN-MECHANICAL SYSTEMS CONTROL ENGINEER Work Phone: Start: 10-08-2024 Us pelvic nonobstetric image dcmtn limited/f/u Alejandra Chávez MD Work Phone: Start: 10-07-2024 Us pelvic nonobstetric image dcmtn limited/f/u Alejandra Chávez MD Work Phone: Start: 10-05-2024 Us pelvic nonobstetric image dcmtn limited/f/u Alejandra Chávez MD Work Phone: Start: 08-14-2024 HYSTEROSCOPY DIAGNOSTIC Imelda Pollard MD Work Phone: Start: 08-14-2024 Urine test visual color cmprsn joses Hilary Holder MD Work Phone: Start: 12-11-2023 Lactoferrin [...] or Population) (1 - 1-dose 75+ series) [facility] Start: 2044 Zoster Vaccines (1 of 2) Zoster Vaccines (1 of 2) [facility] Start: 07-12-2034 DTaP/Tdap/Td Vaccines (2 - Tdap) DTaP/Tdap/Td Vaccines (2 - Tdap) [facility] Start: 12-20-2029 Lipid panel Lipid Panel [facility] Start: 12-20-2025 Vitamin D25-OH Vitamin D25-OH [facility] Start: 12-12-2025 Yearly Adult Physical Yearly Adult Physical [facility] Start: 02-06-2025 CBC W Auto Differential panel - Blood [facility] Start: 02-06-2025 Hemoglobin A1c/Hemoglobin.total in Blood [facility] Start: 02-06-2025 Hepatitis C antibody measurement [facility] Start: 02-06-2025 Rubella IgG measurement [facility] Start: 02-06-2025 Serologic test for syphilis [facility] Start: 02-06-2025 [facility] Start: 01-25-2025 End: 01-25-2025 Patient encounter procedure 01/25/2025 2:00 PM EDT Office Visit Nicol Dhaliwal [address] [place] [phone] Katelyn Benitez, CHARGEBACK ANALYST-MECHANICAL SYSTEMS CONTROL ENGINEER [address] [place] [address] Nicol Dhaliwal Start: 01-25-2025 End: 01-25-2025 Professional / ancillary services management 01/25/2025 1:30 PM EDT Ancillary Procedure SERGEI Dhaliwal [address] [place] [address] Nicol Dhaliwal Start: 01-11-2025 End: 01-11-2026 US Pelvis transvaginal US OB transvaginal Imaging Routine Encounter to determine viability of , single or unspecified fetus Expected: 01/11/2025, Expires: 01/11/2026 [facility] Service Area Work Phone: Comment on above: Expected: 01/11/2025, Expires: Start: 01-10-2025 End: 01-10-2025 Patient encounter procedure 01/10/2025 9:30 AM EDT Office Visit [address] [phone] Anabell Michael MD [address] [place] [id number] [facility] Start: 01-05-2025 End: 01-05-2025 Professional / ancillary services management 01/05/2025 8:30 AM EDT Ancillary Procedure Nicol Dhaliwal [address] [place] [phone] Nicol Dhaliwal Start: 12-26-2024 End: 12-26-2024 Patient encounter procedure 12/26/2024 11:00 AM EDT Procedure Visit Nicol Dhaliwal [address] [place] [phone] Imelda Pollard MD [address] [place] [address] Nicol Dhaliwal Start: 12-20-2024 End: 12-20-2024 Patient encounter procedure [facility] Comment on above: Arrived Start: 12-15-2024 End: 12-15-2024 Professional / ancillary services management 12/15/2024 6:45 AM EDT Ancillary Procedure Nicol Dhaliwal [address] [place] [address] Nicol Dhaliwal Start: 12-11-2024 End: 12-11-2024 Patient encounter procedure 12/11/2024 2:30 PM EDT Office Visit [facility] [address] [place] [address] [place] [address] [facility] [address], [place] [phone] [facility] Start: 12-11-2024 End: 12-11-2025 25-hydroxyvitamin D3 [Mass/volume] in Serum or Plasma Vitamin D 25-Hydroxy,Total (for eval of Vitamin D levels) Lab Routine Hypovitaminosis D Expected: 12/11/2024 (Approximate), Expires: 12/11/2025 [facility] Work Phone: Comment on above: Expected: 12/11/2024 (Approximate), Expi res: 12/11/2025 Start: 12-11-2024 End: 12-11-2025 Lipid 1996 panel - Serum or Plasma Lipid Panel Lab Routine Healthcare maintenance Expected: 12/11/2024 (Approximate), Expires: 12/11/2025 [facility] Service Area Work Phone: Comment on above: Expected: 12/11/2024 (Approximate), Expi res: 12/11/2025 Start: 11-22-2024 End: 11-22-2024 Patient encounter procedure 11/22/2024 10:00 AM EDT Procedure Visit Nicol Dhaliwal [address] [place] [address] Henrietta Herndon MD [address] [place], [place] [id number] Nicol Dhaliwal Start: 11-20-2024 End: 11-20-2025 Blood type and Indirect antibody screen panel - Blood Type And Screen Is this order related to or an upcoming surgery? No Lab Routine Encounter for Rh blood typing Expected: 11/20/2024 (Approximate), Expires: 11/20/2025 [facility] Work Phone: Comment on above: Expected: 11/20/2024 (Approximate), Expi res: 11/20/2025 Start: 11-20-2024 End: 11-20-2025 Chlamydia trachomatis and Neisseria gonorrhoeae DNA [Identifier] in Unspecified specimen by ALEKSEY with probe detection C. trachomatis / N. gonorrhoeae, Amplified, Urogenital Lab Routine Screening for STDs (sexually transmitted diseases) Expected: 11/20/2024 (Approximate), Expires: 11/20/2025 [facility] Work Phone: Comment on above: Expected: 11/20/2024 (Approximate), Expi res: 11/20/2025 Start: 11-20-2024 End: 11-20-2025 Hemoglobin A1c/Hemoglobin.total in Blood Hemoglobin A1C Lab Routine Screening for diabetes mellitus Expected: 11/20/2024 (Approximate), Expires: 11/20/2025 [facility] Work Phone: Comment on above: Expected: 11/20/2024 (Approximate), Expi res: 11/20/2025 Start: 11-20-2024 End: 11-20-2025 Hepatitis B virus surface Ag [Presence] in Serum or Plasma by Immunoassay Hepatitis B surface antigen Lab Routine Screening for STDs (sexually transmitted diseases) Expected: 11/20/2024 (Approximate), Expires: 11/20/2025 [facility] Work Phone: Comment on above: Expected: 11/20/2024 (Approximate), Expi res: 11/20/2025 Start: 11-20-2024 End: 11-20-2025 Hepatitis C virus Ab [Presence] in Serum Hepatitis C Antibody Lab Routine Screening for STDs (sexually transmitted diseases) Expected: 11/20/2024 (Approximate), Expires: 11/20/2025 [facility] Work Phone: Comment on above: Expected: 11/20/2024 (Approximate), Expi res: 11/20/2025 Start: 11-20-2024 End: 11-20-2025 HIV 1+2 Ab+HIV1 p24 Ag [Presence] in Serum or Plasma by Immunoassay HIV 1/2 Antigen/Antibody Screen with Reflex to Confirmation Lab Routine Screening for STDs (sexually transmitted diseases) Expected: 11/20/2024 (Approximate), Expires: 11/20/2025 [facility] Work Phone: Comment on above: Expected: 11/20/2024 (Approximate), Expi res: 11/20/2025 Start: 11-20-2024 End: 11-20-2025 Lutropin [Units/volume] in Serum or Plasma Luteinizing Hormone Lab STAT Female infertility Expected: 11/20/2024 (Approximate), Expires: 11/20/2025 [facility] Work Phone: Comment on above: Expected: 11/20/2024 (Approximate), Expi res: 11/20/2025 Start: 11-20-2024 End: 11-20-2025 Progesterone [Mass/volume] in Serum or Plasma Progesterone Lab STAT Female infertility Expected: 11/20/2024 (Approximate), Expires: 11/20/2025 [facility] Service Area Work Phone: Comment on above: Expected: 11/20/2024 (Approximate), Expi res: 11/20/2025 Start: 11-20-2024 End: 11-20-2025 [facility]), FEMALE [facility]), FEMALE Lab Routine Fertility testing Expected: 11/20/2024 (Approximate), Expires: 11/20/2025 [facility] Work Phone: Comment on above: Expected: 11/20/2024 (Approximate), Expi res: 11/20/2025 Start: 11-20-2024 End: 11-20-2025 Treponema pallidum IgG+IgM Ab [Presence] in Serum by Immunoassay Syphilis Screen with Reflex Lab Routine Screening for STDs (sexually transmitted diseases) Expected: 11/20/2024 (Approximate), Expires: 11/20/2025 [facility] Work Phone: Comment on above: Expected: 11/20/2024 (Approximate), Expi res: 11/20/2025 Start: 11-20-2024 End: 11-20-2025 TSH with reflex to Free T4 if abnormal TSH with reflex to Free T4 if abnormal Lab Routine Screening for thyroid disorder Expected: 11/20/2024 (Approximate), Expires: 11/20/2025 [facility] Work Phone: Comment on above: Expected: 11/20/2024 (Approximate), Expi res: 11/20/2025 Start: 11-20-2024 End: 11-20-2024 Professional / ancillary services management 11/20/2024 9:45 AM EDT Ancillary Procedure SERGEI Dhaliwal [address] [place] [address] Nicol Dhaliwal Start: 11-18-2024 End: 11-18-2025 Progesterone [Mass/volume] in Serum or Plasma Progesterone Lab STAT Female infertility Expected: 11/18/2024 (Approximate), Expires: 11/18/2025 [facility] Service Area Work Phone: Comment on above: Expected: 11/18/2024 (Approximate), Expi res: 11/18/2025 Start: 11-18-2024 End: 11-18-2024 Professional / ancillary services management 11/18/2024 10:00 AM EDT Ancillary Procedure SERGEI Dhaliwal [address] [place] [address] Camarenaangelica Ackermantuckerfaye Start: 11-16-2024 End: 11-16-2024 Professional / ancillary services management 11/16/2024 7:45 AM EDT Ancillary Procedure Camarenaangelica Hagen Madhuri [address] [place] [address] Camarenaangelica Ackermanjuanito Start: 11-14-2024 End: 11-14-2025 Estradiol (E2) [Mass/volume] in Serum or Plasma Estradiol Lab STAT Female infertility Expected: 11/14/2024 (Approximate), Expires: 11/14/2025 [facility] Service Area Work Phone: Comment on above: Expected: 11/14/2024 (Approximate), Expi res: 11/14/2025 Start: 11-14-2024 End: 11-14-2024 Professional / ancillary services management 11/14/2024 7:15 AM EDT Ancillary Procedure Nicol Jimdae Dhaliwal [address] [place] [address] Nicol Dhaliwal Start: 11-08-2024 End: 11-08-2025 Estradiol (E2) [Mass/volume] in Serum or Plasma Estradiol Lab STAT Female infertility Expected: 11/08/2024 (Approximate), Expires: 11/08/2025 [facility] Service Area Work Phone: Comment on above: Expected: 11/08/2024 (Approximate), Expi res: 11/08/2025 Start: 10-31-2024 End: 10-31-2024 Social Work 10/31/2024 12:30 PM [facility] Social [address] [place] [phone] [facility] [place] [place] Start: 10-27-2024 End: 10-27-2024 ambulatory 10/27/2024 8:[address] [place] [phone] Marcia Kiser, CHARGEBACK ANALYST-MECHANICAL SYSTEMS CONTROL ENGINEER [address] [address] Department of Medicine-Geriatrics [place] [phone] [facility] Start: 10-18-2024 End: 10-18-2024 Social Work 10/18/2024 11:15 AM EST [address] [place] [phone] [facility] Start: 10-13-2024 End: 10-13-2024 ambulatory 10/13/2024 8:00 AM EST [address] [place] [phone] Marcia Kiser, CHARGEBACK ANALYST-MECHANICAL SYSTEMS CONTROL ENGINEER [address] Department of Medicine-Geriatrics [place] [phone] [facility] Start: 10-11-2024 End: 10-11-2024 Patient encounter procedure 10/11/2024 9:15 AM EST Procedure Visit Nicol Dhaliwal [address] [place] [phone] Henrietta Herndon MD [address] [place] [address] Nicol Dhaliwal Start: 10-08-2024 End: 10-08-2024 Professional / ancillary services management 10/08/2024 8:30 AM EST Ancillary Procedure Nicol Aliciaon [address] [place] [address] Nicol Hagen Pavtuckeron Start: 10-07-2024 End: 10-07-2024 Professional / ancillary services management 10/07/2024 9:00 AM EST Ancillary Procedure Nicol Aliciaon [address] [place] [address] Nicol Dhaliwal Start: 10-03-2024 End: 10-03-2024 [facility] Start: 09-29-2024 End: 09-29-2024 ambulatory 09/29/2024 8:00 AM EST [address] [place] [address] Marcia Kiser, CHARGEBACK ANALYST-MECHANICAL SYSTEMS CONTROL ENGINEER [address] Department [place] [address] [facility] Start: 09-15-2024 End: 09-15-2024 ambulatory 09/15/2024 8:00 AM EST [address] [place] [address] Marcia Kiser, CHARGEBACK ANALYST-MECHANICAL SYSTEMS CONTROL ENGINEER [address] [facility] Department [place] [address] [facility] Start: 08-13-2024 End: 10-14-2024 Choriogonadotropin ( test) [Presence] in Urine POCT , urine manually resulted Point of Care Testing Routine Encounter for preprocedural laboratory examination Expected: 08/13/2024 (Approximate), Expires: 10/14/2024 [facility] Service Area Work Phone: Comment on above: Expected: 08/13/2024 (Approximate), Expi res: 10/14/2024 Start: 08-13-2024 End: 07-14-2025 Hysteroscopy diagnostic Hysteroscopy diagnostic Procedures Routine Fertility testing Expected: 08/13/2024 (Approximate), Expires: 07/14/2025 [facility] Work Phone: Comment on above: Expected: 08/13/2024 (Approximate), Expi res: 07/14/2025 Start: 04-30-2024 COVID-19 Vaccine ( season) COVID-19 Vaccine ( season) [facility] Start: 12-09-2023 Liquid based cervical cytology screening [facility] Start: 10-01-2023 Colonoscopy w/biopsy single/multiple COLONOSCOPY AND BIOPSY [facility] Start: 10-01-2023 Egd transoral biopsy single/multiple EGD BIOPSY SINGLE/MULTIPLE [facility] Start: 10-01-2023 Patient discharge [facility] Start: 08-07-2023 Protein measurement [facility] Start: 08-03-2023 Procedure [facility] Start: 05-04-2023 End: 05-04-2023 Patient encounter procedure 05/04/2023 7:50 AM EDT Office Visit [facility] [address] [place] [phone] Landy Blair, CHARGEBACK ANALYST - MECHANICAL SYSTEMS CONTROL ENGINEER [address] [place] [address] [facility] Start: 04-30-2023 COVID-19 Vaccine ( season) COVID-19 Vaccine () [facility] Start: 04-30-2023 Influenza vaccination Influenza Vaccine (#1) [facility] Start: 04-10-2022 Iv infusion therapy/prophylaxis /dx 1st to 1 hr THER/PROPH/DIAG IV INF INIT [facility] Work Phone: Start: 03-05-2022 Celiac disease screen [facility] Work Phone: Start: 03-05-2022 Cytomegalovirus IgG antibody measurement [facility] Work Phone: Start: 03-05-2022 Cytomegalovirus IgM antibody assay [facility] Work Phone: Start: 03-05-2022 Immunoglobulin measurement [facility] Work Phone: Start: 03-05-2022 Serum immunofixation [facility] Work Phone: Start: 03-05-2022 [facility] Work Phone: Start: 2016 DTaP/Tdap/Td Vaccines (1 - Tdap) DTaP/Tdap/Td Vaccines (1 - Tdap) [facility] Start: 2015 Screening for malignant neoplasm of cervix [facility] Start: 2013 DTaP/Tdap/Td Vaccines (1 - Tdap) DTaP/Tdap/Td Vaccines (1 - Tdap) [facility] Start: 2013 Hepatitis B Vaccines (1 of 3 - 19+ 3-dose series) Hepatitis B Vaccines (1 of 3 - 19+ 3-dose series) [facility] Start: 2012 Hepatitis C screening Hepatitis C Screening [facility] Start: 2007 Varicella vaccination Varicella Vaccines (1 of 2 - 13+ 2-dose series) [facility] Start: 2006 Depression Screening Depression Screening [facility] Start: 1995 MMR Vaccines (1 of 1 - Standard series) MMR Vaccines (1 of 1 - Standard series) [facility] Start: 1995 Varicella vaccination Varicella Vaccines (1 of 2 - 2-dose childhood series) [facility] Start: 01-08-1995 COVID-19 Vaccine (#1) COVID-19 Vaccine (#1) [facility] Start: 1994 Cyanocobalamin vitamin b-12 Vitamin B-12 [facility] Start: 1994 Hepatitis B Vaccines (1 of 3 - 3-dose series) Hepatitis B Vaccines (1 of 3 - 3-dose series) [facility] Start: 1994 HIV screening HIV Screening [facility] Start: 1994 Lipid panel Lipid Panel [facility] Start: 1994 Screening for osteoporosis Bone Density Scan [facility] Start: 1994 TB Test TB Test [facility] Start: 1994 Vitamin D25-[place] Vitamin D25-OH [facility] Start: 1994 Yearly Adult Physical Yearly Adult Physical [facility] Alanine aminotransfe rase [Enzymatic activity/volume] in Serum or Plasma [facility] Albumin [Mass/volume ] in Serum or Plasma [facility] Albumin [Moles/volum e] in Serum or Plasma [facility] Work Phone: Albumin/Globulin ratio [facility] Work Phone: Alkaline phosphatase [Enzymatic activity/volume] in Serum or Plasma [facility] Anion gap in Serum or Plasma [facility] Antibody to lupus La protein measurement [facility] Work Phone: Antibody to SS-A measurement [facility] Work Phone: Bilirubin, total measurement [facility] BUN/Creatinine ratio [facility] C reactive protein [Mass/volume] in Serum or Plasma [facility] Calcium [Mass/volume ] in Serum or Plasma [facility] Carbon dioxide, tota l [Moles/volume] in Central venous blood [facility] CBC W Auto Different ial panel - Blood [facility] Centromere protein B Ab [Units/volume] in Serum [facility] Work Phone: Chlamydia deoxyribon ucleic acid detection [facility] Chlamydia deoxyribon ucleic acid detection [facility] End: 01-22-2025 Chlamydia trachomatis and Neisseria gonorrhoeae DNA [Identifier] in Unspecified specimen by ALEKSEY with probe detection [facility] Work Phone: Comment on above: Once (Lab) for 1 Occurrences starting until 01/22/2025 End: 10-11-2024 Choriogonadotropin ( test) [Presence] in Urine POCT , urine manually resulted Point of Care Testing Routine Once (Lab) for 1 Occurrences starting 10/11/2024 until 10/11/2024 [facility] Work Phone: Comment on above: Once (Lab) for 1 Occurrences starting until 10/11/2024 End: 11-22-2024 Choriogonadotropin ( test) [Presence] in Urine POCT , urine manually resulted Point of Care Testing Routine Once (Lab) for 1 Occurrences starting 11/22/2024 until 11/22/2024 [facility] Work Phone: Comment on above: Once (Lab) for 1 Occurrences starting until 11/22/2024 Chromatin Ab [Units/ volume] in Serum or Plasma [facility] Work Phone: Clostridioides diffi cile DNA [Presence] in Unspecified specimen by ALEKSEY with probe detection [facility] Work Phone: Colonoscopy [facility] Creatinine [Mass/vol ume] in Serum or Plasma [facility] Cytomegalovirus IgG antibody measurement [facility] Work Phone: Cytomegalovirus IgM antibody assay [facility] Work Phone: Dehydroepiandrostero ne sulfate (DHEA-S) [Mass/volume] in Serum or Plasma [facility] DNA double strand Ab [Units/volume] in Serum [facility] Work Phone: Electrophoresis: [id number] [facility] Work Phone: Electrophoresis: emiliana ma globulin [facility] Work Phone: Erythrocyte mean cor puscular volume determination [facility] Erythrocyte sedimentation rate [facility] End: 02-05-2025 Estradiol (E2) [Mass/volume] in Serum or Plasma Estradiol Lab STAT Female infertility Daily (including weekends) for 8 Occurrences starting 10/08/2024 until 02/05/2025 [facility] Service Area Work Phone: Comment on above: Daily (including weekends) for 8 Occurre nces starting 10/08/2024 until 02/05/2025 End: 01-22-2025 Extra Urine Costello Tube [facility] Work Phone: Comment on above: Once for 1 Occurrences starting 01/23/20 until 01/22/2025 Folate [Moles/volume ] in Serum or Plasma [facility] Gastrointestinal pat hogens panel - Stool by ALEKSEY with probe detection [facility] Work Phone: Globulin measurement [facility] Work Phone: Glucose [Mass/volume ] in Serum or Plasma [facility] Hematocrit [Volume F raction] of Blood [facility] Hemoglobin [Mass/vol ume] in Blood [facility] Hemoglobin A1c/Hemoglobin.total in Blood [facility] Hepatitis B virus sy rface Ag [Presence] in Serum [facility] Hepatitis C antibody measurement [facility] IgA [Mass/volume] in Serum or Plasma [facility] Work Phone: IgE [Units/volume] i n Serum or Plasma [facility] Work Phone: IgG [Mass/volume] in Serum or Plasma [facility] Work Phone: IgM [Mass/volume] in Serum or Plasma [facility] Work Phone: Areli-1 extractable nuc lear Ab [Units/volume] in Serum [facility] Work Phone: Lactoferrin [Presenc e] in Stool by Immunoassay [facility] Work Phone: Leukocytes [#/volume] in Blood [facility] End: 02-05-2025 Lutropin [Units/volume] in Serum or Plasma Luteinizing Hormone (LH) Lab STAT Female infertility Daily (including weekends) for 3 Occurrences starting 10/08/2024 until 02/05/2025 [facility] Work Phone: Comment on above: Daily (including weekends) for 3 Occurre nces starting 10/08/2024 until 02/05/2025 Mean corpuscular hem oglobin concentration determination [facility] Mean corpuscular hem oglobin determination [facility] Measurement of immun oglobulin A in serum specimen [facility] Work Phone: Measurement of renal function [facility] Neutrophil count [facility] Neutrophil cytoplasm ic Ab.classic [Units/volume] in Serum [facility] Work Phone: Neutrophil percent differential count [facility] Ova and parasites id entified in Unspecified specimen by Light microscopy [facility] Work Phone: P-ANCA measurement [facility] Work Phone: Path report.final Dx Spec [facility] Patient referral [facility] Work Phone: Platelets [#/volume] in Blood [facility] Potassium measurement [facility] Procedure [facility] Procedure [facility] Procedure [facility] End: 02-04-2025 Progesterone [Mass/volume] in Serum or Plasma Progesterone Lab STAT Female infertility Daily (including weekends) for 3 Occurrences starting 10/07/2024 until 02/04/2025 [facility] Service Area Work Phone: Comment on above: Daily (including weekends) for 3 Occurre nces starting 10/07/2024 until 02/04/2025 End: 02-05-2025 Progesterone [Mass/volume] in Serum or Plasma Progesterone Lab STAT Female infertility Daily (including weekends) for 3 Occurrences starting 10/08/2024 until 02/05/2025 [facility] Work Phone: Comment on above: Daily (including weekends) for 3 Occurre nces starting 10/08/2024 until 02/05/2025 Prolactin [Mass/volu me] in Serum or Plasma [facility] Protein electrophore sis panel - Serum or Plasma [facility] Work Phone: Protein measurement [facility] Work Phone: Protein measurement [facility] Red blood cell count [facility] Red cell distributio n width determination [facility] TERRENCE US Endometrial L ining Check [facility] Endometrial Lining Check Imaging Routine Female infertility 12/15/2024 7:02 AM EDT [facility] Service Area Work Phone: TERRENCE US Pelvis Limite d Follicles - Follicle Studies Performed [facility] Pelvis Limited Follicles - Follicle Studies Performed Imaging Routine Female infertility 09/27/2024 7:51 AM EST [facility] Service Area Work Phone: TERRENCE US Pelvis Limite d Follicles - Follicle Studies Performed [facility] Pelvis Limited Follicles - Follicle Studies Performed Imaging Routine Female infertility 10/09/2024 9:42 AM EST [facility] Service Area Work Phone: Rubella IgG measurement [facility] SCL-70 extractable n uclear Ab [Units/volume] in Serum by Immunoassay [facility] Work Phone: Serologic test for syphilis [facility] Serum chloride measurement [facility] Serum protein electrophoresis [facility] Work Phone: Ferrell extractable nu clear Ab [Presence] in Serum [facility] Work Phone: Sodium measurement [facility] Testosterone Free [Mass/volume] in Serum or Plasma [facility] Thyroid stimulating hormone measurement [facility] Tissue transglutamin ase IgA Ab [Units/volume] in Serum [facility] Work Phone: Total protein measurement [facility] Urea nitrogen [Mass/ volume] in Serum or Plasma [facility] End: 01-22-2025 Urinalysis complete W Reflex Culture panel - Urine [facility] Work Phone: Comment on above: Once (Lab) for 1 Occurrences starting until 01/22/2025 US Pelvis [facility] US Pelvis transvaginal [facility] Immunizations Immunization Date Immunization Notes Care Provider Deedee ferguson 07-06-2023 influenza virus vaccine, unspecified formulation ERNA TROTTER MD [facility] Payers Date Payer Category Payer Self-pay [id number] 2023 [employer] Blue [employer] Managed Care [id number] 2022 Unknown [id number]. 1.13.680.2.7.3.6 [id number] 2017 Unknown [id number] 1994 Unknown [id number] 2..840.1.205919.3.579.2.627 1994 Unknown [id number] 2.16.840.1.027348.3.579.2.627 1994 Unknown [id number] 2.16840.1.110249.3.579.2.627 1994 Unknown [id number] 2.16840.1.487698.3.579.2.627 1994 Unknown [id number] 2.16840.1.266014.3.579.2.627 1994 Unknown [id number] 2.16840.1.759913.3.579.2.1244 1994 Unknown [id number] 2.16.840.1.247323.3.579.2.1244 1994 Unknown [id number] 2.16.840.1.166850.3.579.2.1243 1994 Unknown [id number] 2.16.840.1.726132.3.579.2.1243 1994 Unknown [id number] 2.16.840.1.568974.3.579.2.1241 1994 Unknown [id number] 2.16.840.1.456571.3.579.2.1241 1994 Unknown [id number] 2.16.840.1.780646.3.579.2.1241 1994 Unknown [id number] 2.16.840.1.944629.3.579.2.1244 1994 Unknown [id number] 2.16840.1.388602.3.579.2.1244 1994 Unknown [id number] 2.16840.1.285198.3.579.2.1244 1994 Unknown [id number] 2.16840.1.277616.3.579.2.1244 1994 Unknown [id number] 2.16.840.1.357189.3.579.2.1244 1994 Unknown [id number] 2.16840.1.025251.3.579.2.1244 1994 Unknown [id number] 2.16.840.1.587358.3.579.2.1244 1994 Unknown [id number] 2.16.840.1.449353.3.579.2.1244 1994 Unknown [id number] 2.16.840.1.765241.3.579.2.1244 1994 Unknown [id number] 2.16.840.1.477818.3.579.2.1244 1994 Unknown [id number] 2.16.840.1.088475.3.579.2.124 1994 Unknown [id number] 2.16.840.1.297583.3.579.2.1244 1994 Unknown [id number] 2.16840.1.515004.3.579.2.1244 1994 Unknown [id number] 2.16840.1.604277.3.579.2.1244 1994 Unknown [id number] 2.16840.1.188567.3.579.2.1244 1994 Unknown [id number] 2.16840.1.520547.3.579.2.1244 1994 Unknown [id number] 2.16840.1.779676.3.579.2.1244 1994 Unknown [id number] 2.0.1.596364.3.579.2.1244 1994 Unknown [id number] 2.840.1.466158.3.579.2.1244 1994 Unknown [id number] 2.840.1.297209.3.579.2.1244 1994 Unknown [id number] 2.16840.1.031322.3.579.2.1244 1994 Unknown [id number] 2.840.1.524202.3.579.2.1244 1994 Unknown [id number] 2.840.1.480968.3.579.2.1244 1994 Unknown [id number] 2.16840.1.872971.3.579.2.1244 1994 Unknown [id number] 2.16840.1.202347.3.579.2.1244 1994 Unknown [id number] 2.16840.1.129194.3.579.2.1244 1994 Unknown [id number] 2.16.840.1.187598.3.579.2.1245 1994 Unknown [id number] 2.0.1.284061.3.579.2.1244 1994 Unknown [id number] 2.840.1.421552.3.579.2.124 1994 Unknown [id number] 2.0.1.027075.3.579.2.1244 1994 Unknown [id number] 2.0.1.320829.3.579.2.1244 1994 Unknown [id number] 2.0.1.733581.3.579.2.479 1994 Unknown [id number] 2.0.1.490739.3.579.2.479 1994 Unknown [id number] 2.0.1.360751.3.579.2.627 [facility] ([facility] and others) [id number] Unknown [facility] [id number] Unknown [id number] Unknown [facility] [id number] Unknown [id number] 2.0.1.898033.3.579.2.462 Unknown [id number] 2.0.1.819168.3.579.2.462 Unknown [id number] 2.840.1.332615.3.579.2.462 Unknown [id number] 2.0.1.698934.3.579.2.462 Unknown [id number] 2.16.840.1.549890.3.579.2.462 Unknown [id number] 2.16.840.1.643127.3.579.2.462 Unknown [id number] 2.16.840.1.108646.3.579.2.462 Unknown [id number] 2.16.840.1.735171.3.579.2.462 Unknown [id number] 2.16.840.1.567143.3.579.2.462 Unknown [id number] 2.16.840.1.500771.3.579.2.462 Unknown [id number] 2.16.840.1.910781.3.579.2.462 Unknown [id number] 2.16.840.1.413621.3.579.2.462 Unknown [id number] 2.16840.1.468817.3.579.2.462 Unknown [id number] 2.16840.1.696489.3.579.2.462 Unknown [id number] 2.16.840.1.473329.3.579.2.462 Unknown [id number] 2.16.840.1.496283.3.579.2.462 Unknown [id number] 2.16.840.1.700867.3.579.2.462 Unknown [id number] 2.16840.1.263786.3.579.2.462 Unknown [id number] 2.16840.1.845848.3.579.2.462 Unknown [id number] 2.16840.1.208749.3.579.2.462 Social History Date Type Detail Facility Tobacco smoking status NDIS Unknown if ever smoked [facility] Work Phone: Start: 1995 Sex Assigned At Female W [facility] Start: 08-03-2023 End: 12-09-2023 Tobacco smoking status NDIS Tobacco smoking consumption unknown [facility] Start: 1995 Sex Assigned At Not on file [facility] Start: 01-25-2024 End: 12-11-2024 Gender identity Not on file [facility] Start: 04-20-2023 End: 01-26-2025 Tobacco smoking status Never smoked tobacco (finding) [facility] Start: 01-25-2024 Tobacco use and exposure Smokeless tobacco non-user [facility] Work Phone: Start: 01-25-2024 End: 01-09-2025 Alcoholic beverage intake Ex-drinker (finding) [facility] Work Phone: Start: 01-25-2024 End: 12-11-2024 History of Social function [facility] Work Phone: Start: 09-30-2023 Gender identity Identifies as female gender (finding) [facility] Work Phone: Start: 09-30-2023 Sexual orientation Heterosexual (fin ding) [facility] Work Phone: Start: 01-15-2024 End: 01-25-2024 Exposure to SARS-CoV-2 (event) Unable to assess [facility] Start: 07-04-2024 End: 01-25-2025 Exposure to SARS-CoV-2 (event) Not sure [facility] NEGATED: Highlighted rowStart: NINF History of tobacco use Passive smoker [facility] Work Phone: Medical Equipment Procedure Code Equipment Code Equipment Origin al Text Equipment Identifier Dates [id number], [id number] Star t: 08-18-2024 End: 11-22-2024 Goals Date Patient Goal Desired Activity /State Functional Status Date Assessment Result Facility 01-22-2025 [place] - 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 08-27-2023 Functional Status bilateral knee high applied/on [facility] 08-27-2023 Functional Status [facility]ained [facility] 08-13-[facility]23 Functional Status Sensory Deficits None A [facility] Mental Status Date Assessment Result Facility 10-01-2023 Cognitive function Level Of Cons ciousness Follows Commands;Drowsy [facility] Work Phone: 10-01-2023 Cognitive function Voice/Name [facility] Work Phone: 08-27-2023 Mental Status Oriented x 4 [facility] 08-27-2023 Mental Status [facility] Clinical Notes 04-05-2023 to 05-11-2025 Note Date & Type Note Facility 05-11-2025 Progress note [facility] 05-11-2025 Progress note Note Date/Time May 11, 2025 2:14pm [facility] [address], [address] [place] [address] OFFICE VISIT Date of Service: 05/11/25 MR#: [id number] Acct: [id number] Name: MARIXA AMOS Rep #: [id number] : 1995 Provider: STEFANIE Lo Age/Sex: 29/F Location: [facility] Status: Signed Intake Vital Signs 05/01/25 14:59 05/11/25 13:52 Height 5 ft 3 in 5 ft 3 in Weight: 201 lb 6 oz BMI 35.6 BP 130/86 H Intake Visit Reasons: FHT check, spotting Chief Complaint: FHT Check, Spotting Associate Relations Specialist Required: No Is patient in pain?: No Allergies No Known Allergies Allergy (Verified 05/11/25 13:50) Medications ?Medication ?Instructions ?Recorded ?Confirmed ?Type ustekinumab 90 mg/mL subcutaneous 90 mg subcut Q8W #1 mL 07/07/24 05/11/25 Rx syringe (Stelara) aspirin 81 mg tablet,delayed 81 mg PO QDAY 01/01/25 History release (Adult Aspirin Regimen) multivit-min no.71-iron fum 28 cap PO 01/26/25 5 History mg-folate no.1 1 mg-dha 300 mg capsule (PNV-[place]) famotidine 40 mg tablet 40 mg PO BID PRN 05/11/25 H istory mesalamine 1,000 mg rectal 1,000 mg ID QHS 05/11/25 History suppository (Canasa) prednisone 10 mg tablet mg PO 05/11/25 05/11/25 Hist ory Last Menstrual Period: 10/19/24 : No PFSH PFSH Medical History (Updated 05/11/25 @ 13:59 by Iesha Lo CNM) Crohn's disease Obesity (BMI 30.0-34.9) Other obesity Rectal bleeding [...] 3-4 times per week duration: 45-60 minutes/day cathy/moravian: None seatbelt use: always do you feel safe at home: Yes 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 Date Name GA/Weeks Outcome Route Bth Weight Gen Labor Lgth Anesthesia Del Locatn Provider FOB Unknown 07/2023-Julio 20 still Male Delivery Date: Last Updated by: Jacquie Durán demise, possible subchorionic hematoma HPI FHT check, spotting Details: MARIXA AMOS is a 29 year old who presents for routine OB visit. OB Visit GIL Calculator Estimated Delivery Date Method Current WG Current Estimate 09/13/25 Manual 22w 1d Other Estimates 09/11/25 Ultrasound #1 22w 3d Expected Delivery Route/Plan Labor Preferences- CB/BF [...] Date -?-?-?-?-?-?-?-?-?-?-?-?- EGA Weight BP Urine Prot -?-?-?-?-?-?-?--?-?-?-?-?- Glucose FHR FuHt Pres Dilation -?-?-?-?-?-?-?-?-?-?-?-?- Effaced St Visit Note 02/06/25 -?-?-?-?-?-?-?-?-?-?-?-?- 8w 5d 185 lb 8 oz (+8 oz) 118/70 -?-?-?-?-?-?-?-?-?-?-?-?- 185 -?-?-?-?-?-?-?-?-?-?-?-?- KW- CRL cons wit h dates. Declines NIPT. IVF . had carrier screening done with [facility] 02/23/25 -?-?-?-?-?-?-?-?-?-?-?-?- 11w 1d 186 lb 2 oz (+1 lb 2 oz) 135/86 -?-?-?-?-?-?-?-?-?-?-?-?- 165 -?-?-?-?-?-?-?-?-?-?-?-?- JV- heart beat jany naikk today for her reassurance. she is getting more nauseated but also just stopped her hormones. Also going to stop metformin. coco ordered. 03/09/25 -?-?-?-?-?-?-?-?-?-?-?-?- 13w 1d 191 lb 4 oz (+6 lb 4 oz) 129/85 Negative -?-?-?-?-?-?-?-?-?-?-?-?- Negative 170 -?-?-?-?-?-?-?-?-?-?-?-?- SM- no vb bharat leung reviewed IBD and 20 week loss history ordered additional labs mfm consult 04/06/25 -?-?-?-?-?-?-?-?-?-?-?-?- 17w 1d 194 lb 9 oz (+9 lb 9 oz) 138/79 Negative -?-?-?-?-?-?-?-?-?-?-?-?- Negative 145 -?-?-?-?-?-?-?-?-?-?-?-?- KW- no vb/rafa leung. +flutters. has MFM appt coming up. 05/01/25 -?-?-?-?-?-?-?-?-?-?-?-?- 20w 5d 200 lb 7 oz (+15 lb 7 oz) 125/78 Negative -?-?-?-?-?-?-?-?-?-?-?-?- Negative 140 -?-?-?-?-?-?-?-?-?-?-?-?- sm- no vb lof cr amping, having increaed crohn's symptoms- messag esent to friend and needs to get MFM cosult. took [facility] wednesday. 05/11/25 -?-?-?-?-?-?-?-?-?-?-?-?- 22w 1d 201 lb 6 oz (+16 lb 6 oz) 130/86 Negative -?-?-?--?-?-?-?-?-?-?-?-?- Negative 147 22 -?-?-?-?-?-?-?-?-?-?-?-?- KW- work in for vaginal bleeding/no cramping. +fm. Had UC flair and was trying to get in to see friend. Office never called back per pt so she found new provider in [place] and was placed on other medications. Also saw MFM and med list updated. THis morning she had a small amount of pink vaginal bleeding and called in. Spec exam was reassuring. No blood noted in vagina, cervix closed. FHT easily found with doppler. ACOG First Trimester First Trimester: Desire for [...] Symptoms of Preeclampsia, Infant Feeding No , Education and Family Medical Leave or Disability Forms ROS Const Reports system reviewed and no additional complaints, except as documented Eyes Reports system reviewed and no additional complaints, except as documented ENT Reports system reviewed and no additional complaints, except as documented Card Reports system reviewed and no additional complaints, except as documented Resp Reports system reviewed and no additional complaints, except as documented GI Reports system reviewed and no additional complaints, except as documented, Denies nausea and Denies vomiting Reports system reviewed and no additional complaints, except as documented Musc Reports system reviewed and no additional complaints, except as documented Skin/Breast Reports system reviewed and no additional complaints, except as documented Neuro Yes system reviewed and no additional complaints, except as documented Psych Reports system reviewed and no additional complaints, except as documented Endo Reports system reviewed and no additional complaints, except as documented Nolan/Lymph Reports system reviewed and no additional complaints, except as documented Aller/Immun Reports system reviewed and no additional complaints, except as documented Exam Const General: cooperative, healthy appearing and no acute distress Orientation: alert, awake and oriented x3 Neck Neck: normal visual inspection and full ROM Resp Effort & Inspection: normal respiratory effort, able to speak in complete sentences and symmetric chest movement GI Inspection: normal to inspection Palpation: soft and other Other: gravid Skin General: no rashes or lesions noted Neuro General: patient alert, patient awake and patient oriented x3 Cognition: normal cognition Speech: speech normal Gait: normal gait Motor: muscle tone normal throughout Extrem General: normal to inspection and full ROM Psych Appearance: grossly normal Mental Status: mental status grossly normal Mood: congruent mood Affect: normal affect Speech and Movement: speech and movement normal Attitude: cooperative Thought Process: normal Thought Content: normal Judgment: judgment good Results POC Urinalysis 2 Dip (Clinic) Office Urine Glucose Negative Last Edit by Sandra Rodas on 05/11/25 13:56 Office Urine Protein Negative Last Edit by Sandra Rodas on 05/11/25 13:56 Coding Level of Care Code OB Routine Diagnoses Crohn's disease K50.90 resulting from in vitro fertilization, antepartum O09.819 Trimester: unspecified trimester History of maternal blood transfusion, currently O09.299 History of anemia Z86.2 Subchorionic hematoma in first trimester O41.8X10; O46.8X1 Prior with demise O09.299 Supervision of high-risk O09.90 22 weeks gestation of Z3A.22 Weeks of gestation: 22 weeks Obesity affecting O99.210 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 Ogden. needs M consult. (2) resulting from in vitro fertilization: Status: Acute Qualifiers: Trimester: unspecified trimester Qualified Code(s): O09.819 - Supervision of resulting from assisted reproductive technology, unspecified trimester Comment: growth US and NSTs at 36 week (3) History of maternal blood transfusion, currently : Status: Acute Comment: 2018 due to anemia (4) History of anemia: Status: Acute (5) Subchorionic hematoma in first trimester: Status: Acute Comment: seen on US in ER 01/22/25 and with fertility specialist (6) Prior with demise: Status: Acute Comment: 20 weeks, subchorionic hematoma (7) Supervision of high-risk : Status: Acute Comment: PRR , GIL 09/13/25, PC Julio (jul- week demise) Romel (8) : Status: Acute Qualifiers: Weeks of gestation: 22 weeks Qualified Code(s): Z3A.22 - 22 weeks gestation of Comment: declined NIPT & Carrier testing (9) Obesity affecting : Status: Acute Comment: HGBA1c (10) Ulcerative colitis: Status: Chronic Qualifiers: Digestive disease complication type: without complication Ulcerative colitis location: ulcerative rectosigmoiditis Qualified Code(s): 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 see problem list details for updated plan management information and see below for orders placed at this visit. GA appropriate handout given. 05/11/25 5396 <Electronically signed by Iesha das CNM> Date _ [facility] Lo [facility] Signature: Date (if applicable) CC: ~ [facility] Work Phone: 1(631) 670-408809-02-2025 Progress [facility] [address] [place] [address], [address] [place] [address] OFFICE VISIT Date of Service: 05/01/25 MR#: [id number] Acct: [id number] Name: MARIXA AMOS Rep #: [id number] : 1995 Provider: Dr. Lukas Lugo MD Age/Sex: 29/F Location: [facility] Status: Signed Intake Vital Signs 03/09/25 11:36 04/06/25 13:00 05/01/25 14:59 Height 5 ft 3 in 5 ft 3 in 5 ft 3 in Weight: 200 lb 7 oz BMI 35.5 BP 125/78 H Intake Visit Reasons: 21wk ob *IVF Associate Relations Specialist Required: No Is patient in pain?: No Allergies No Known Allergies Allergy (Verified 05/01/25 14:58) Medications ?Medication ?Instructions ?Recorded ?Confirmed ?Type ustekinumab 90 mg/mL subcutaneous 90 mg subcut Q8W #1 mL 07/07/24 05/01/25 Rx syringe (Stelara) aspirin 81 mg tablet,delayed 81 mg PO QDAY 01/01/25 History release (Adult Aspirin Regimen) multivit-min no.71-iron fum 28 cap PO 01/26/25 5 History mg-folate no.1 1 mg-dha 300 mg capsule (PNV-[place]) ondansetron 4 mg disintegrating 4 mg PO Q6H PRN nausea and 02/23/25 05/01/25 Rx tablet vomiting #30 tabs famotidine 40 mg tablet 40 mg PO BID #60 tabs 05/01/25 Rx Last Menstrual Period: 10/19/24 Zika: Zika virus screening: Negative : No PFSH PFSH Medical History (Updated 05/01/25 @ 15:[address] 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 Date Name GA/Weeks Outcome Route Bth Weight Gen Labor Lgth Anesthesia Del Locatn Provider FOB Unknown 07/2023-Julio 20 still Male Delivery Date: Last Updated by: Jacquie Durán demise, possible subchorionic hematoma HPI 21wk ob *IVF Details: MARIXA AMOS is a 29 year old who presents for routine OB visit. OB Visit GIL Calculator Estimated Delivery Date Method Current WG Current Estimate 09/13/25 Manual 20w 5d Other Estimates 09/11/25 Ultrasound #1 21w 0d Expected Delivery Route/Plan Labor Preferences- CB/BF classes: [...] current plan of care details and appropriate ordersplaced. Relevant counseling for the gestational age provided. [...] 135/86 -?-?-?-?-?-?-?-?-?-?-?-?- 165 -?-?-?-?-?-?-?-?-?-?-?-?- JV- heart beat jany gumarok today for her reassurance. she is getting more nauseated but also just stopped her hormones. Also going to stop metformin. coco ordered. 03/09/25 -?-?-?-?-?-?-?-?-?-?-?-?- 13w 1d 191 lb 4 oz (+6 lb 4 oz) 129/85 Negative -?-?-?-?-?-?-?-?-?-?-?-?- Negative 170 -?-?-?-?-?-?-?-?-?-?-?-?- SM- no vb crmapi ng reviewed IBD and 20 week loss history ordered additional labs mfm consult 04/06/25 -?-?-?-?-?-?-?-?-?-?-?-?- 17w 1d 194 lb 9 oz (+9 lb 9 oz) 138/79 Negative -?-?-?-?-?-?-?-?-?-?-?-?- Negative 145 -?-?-?-?-?-?-?-?-?--?-?-?- KW- no vb/cravimal ng. +flutters. has MFM appt coming up. 05/01/25 -?-?-?-?-?-?-?-?-?-?-?-?- 20w 5d 200 lb 7 oz (+15 lb 7 oz) 125/78 Negative -?-?-?-?-?-?-?-?-?-?-?-?- Negative 140 -?-?-?-?-?-?-?-?-?-?-?-?- sm- no vb lof cr amping, having increaed crohn's symptoms- messag esent to friend and needs to get MFM cosult. took [facility] wednesday. ACOG First Trimester First Trimester: Desire for , Alcohol, Tobacco Cessation, Illicit/Recreational Drug/Substance Use, Intimate Partner Violence, Barriers to care, Unstable Housing, Communication Barriers, Environmental/Work Hazards, Anticipated Course of Care, Toxoplasmosis Precations, Use of Any med ications, Sexual activity, Exercise, Dental Care, Sauna/Hot tub [...] Symptoms of Preeclampsia, Infant Feeding No , [place] Education and Family Medical Leave or Disability Forms Results POC Urinalysis 2 Dip (Clinic) Office Urine Glucose Negative Last Edit by Jesika Paula on 05/01/25 15:01 Office Urine Protein Negative Last Edit by Jesika Paula on 05/01/25 15:01 Coding Level of Care Code OB Routine Diagnoses Crohn's disease K50.90 resulting from in vitro fertilization, antepartum O09.819 Trimester: unspecified trimester History of maternal blood transfusion, currently O09.299 History of anemia Z86.2 Subchorionic hematoma in first trimester O41.8X10; O46.8X1 Prior with demise O09.299 Supervision of high-risk O09.90 20 weeks gestation of Z3A.20 Weeks of gestation: 20 weeks Obesity affecting O99.210 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 Digestive disease complication type: without complication Ulcerative colitis location: ulcerative rectosigmoiditis Assessment and Plan Assessment and Plan (1) Crohn's disease: Status: Acute Comment: Pt reports dx, pt of on [facility]. needs MFM consult. (2) resulting from in vitro fertilization: Status: Acute Qualifiers: Trimester: unspecified trimester Qualified Code(s): O09.819 - Supervision of resulting from assisted reproductive technology, unspecified trimester Comment: growth US and NSTs at 36 week (3) History of maternal blood transfusion, currently : Status: Acute Comment: 2018 due to anemia (4) History of anemia: Status: Acute (5) Subchorionic hematoma in first trimester: Status: Acute Comment: seen on US in ER 01/22/25 and with fertility specialist (6) Prior with demise: Status: Acute Comment: 20 weeks, subchorionic hematoma (7) Supervision of high-risk : Status: Acute Comment: PRR , GIL 09/13/25, DEBRA Kim (jul- week demise) Romel (8) : Status: Acute Qualifiers: Weeks of gestation: 20 weeks Qualified Code(s): Z3A.20 - 20 weeks gestation of Comment: declined NIPT & Carrier testing (9) Obesity affecting : Status: Acute Comment: HGBA1c (10) Ulcerative colitis: Status: Chronic Qualifiers: Digestive disease complication type: without complication Ulcerative colitis location: ulcerative rectosigmoiditis Qualified Code(s): 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 Lukas Lugo MD Age/Sex: 29/F Location: [facility] [place] [place] Status: Signed Intake Vital Signs 03/09/25 11:36 04/06/25 13:00 05/01/25 14:59 Height 5 ft 3 in 5 ft 3 in 5 ft 3 in Weight: 200 lb 7 oz BMI 35.5 BP 125/78 H Intake Visit Reasons: 21wk ob *IVF Associate Relations Specialist Required: No Is patient in pain?: No Allergies No Known Allergies Allergy (Verified 05/01/25 14:58) Medications ?Medication ?Instructions ?Recorded ?Confirmed ?Type ustekinumab 90 mg/mL subcutaneous 90 mg subcut Q8W #1 mL 07/07/24 05/01/25 Rx syringe (Stelara) aspirin 81 mg tablet,delayed 81 mg PO QDAY 01/01/25 History release (Adult Aspirin Regimen) multivit-min no.71-iron fum 28 cap PO 01/26/25 5 History mg-folate no.1 1 mg-dha 300 mg capsule (PNV-[place]) ondansetron 4 mg disintegrating 4 mg PO Q6H PRN nausea and 02/23/25 05/01/25 Rx tablet vomiting #30 tabs famotidine 40 mg tablet 40 mg PO BID #60 tabs 05/01/25 Rx Last Menstrual Period: 10/19/24 Zika: Zika virus screening: Negative : No PFSH [facility] Medical History (Updated 05/01/25 @ 15:[address] 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 Date Name GA/Weeks Outcome Route Bth Weight Infant Gen Labor Lgth Anesthesia Del Locatn Provider FOB Unknown 07/2023-Julio 20 still Male Delivery Date: Last Updated by: Jacquie Durán demise, possible subchorionic hematoma HPI 21wk ob *IVF Details: MARIXA AMOS is a 29 year old who presents for routine OB visit. OB Visit GIL Calculator Estimated Delivery Date Method Current WG Current Estimate 09/13/25 Manual 20w 5d Other Estimates 09/11/25 Ultrasound #1 21w 0d Expected Delivery Route/Plan Labor Preferences- CB/BF classes: [...] 135/86 -?-?-?-?-?-?-?-?-?-?-?-?- 165 -?-?-?-?-?-?-?-?-?-?-?-?- JV- heart beat c gumarok today for her reassurance. she is getting more nauseated but also just stopped her hormones. Also going to stop metformin. coco ordered. 03/09/25 -?-?-?-?-?-?-?-?-?-?-?-?- 13w 1d 191 lb 4 oz (+6 lb 4 oz) 129/85 Negative -?-?-?-?-?-?-?-?-?-?-?-?- Negative 170 -?-?-?-?-?-?-?-?-?-?-?-?- SM- no vb crmapi ng reviewed IBD and 20 week loss history ordered additional labs mfm consult 04/06/25 -?-?-?-?-?-?-?-?-?-?-?-?- 17w 1d 194 lb 9 oz (+9 lb 9 oz) 138/79 Negative -?-?-?-?-?-?-?-?-?-?-?-?- Negative 145 -?-?-?-?-?-?-?-?-?--?-?-?- KW- no vb/crampi ng. +flutters. has MFM appt coming up. 05/01/25 -?-?-?-?-?-?-?-?-?-?-?-?- 20w 5d 200 lb 7 oz (+15 lb 7 oz) 125/78 Negative -?-?-?-?-?-?-?-?-?-?-?-?- Negative 140 -?-?-?-?-?-?-?-?-?-?-?-?- sm- no vb lof cr amping, having increaed crohn's symptoms- messag esent to friend and needs to get MFM cosult. took [facility] wednesday. ACOG First Trimester First Trimester: Desire for [...] Symptoms of Preeclampsia, Infant Feeding No , Education and Family Medical Leave or Disability Forms Results POC Urinalysis 2 Dip (Clinic) Office Urine Glucose Negative Last Edit by Jesika Paula on 05/01/25 15:01 Office Urine Protein Negative Last Edit by Jesika Paula on 05/01/25 15:01 Coding Level of Care Code OB Routine Diagnoses Crohn's disease K50.90 resulting from in vitro fertilization, antepartum O09.819 Trimester: unspecified trimester History of maternal blood transfusion, currently O09.299 History of anemia Z86.2 Subchorionic hematoma in first trimester O41.8X10; O46.8X1 Prior with demise O09.299 Supervision of high-risk O09.90 20 weeks gestation of Z3A.20 Weeks of gestation: 20 weeks Obesity affecting O99.210 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 Digestive disease complication type: without complication Ulcerative colitis location: ulcerative rectosigmoiditis Assessment and Plan Assessment and Plan (1) Crohn's disease: Status: Acute Comment: Pt reports dx, pt of . on [facility]. needs MFM consult. (2) resulting from in vitro fertilization: Status: Acute Qualifiers: Trimester: unspecified trimester Qualified Code(s): O09.819 - Supervision of resulting from assisted reproductive technology, unspecified trimester Comment: growth US and NSTs at 36 week (3) History of maternal blood transfusion, currently : Status: Acute Comment: 2018 due to anemia (4) History of anemia: Status: Acute (5) Subchorionic hematoma in first trimester: Status: Acute Comment: seen on US in ER 01/22/25 and with fertility specialist (6) Prior with demise: Status: Acute Comment: 20 weeks, subchorionic hematoma (7) Supervision of high-risk : Status: Acute Comment: PRR , GIL 09/13/25, DEBRA Kim (dec-20 week demise) Romel (8) : Status: Acute Qualifiers: Weeks of gestation: 20 weeks Qualified Code(s): Z3A.20 - 20 weeks gestation of Comment: declined NIPT & Carrier testing (9) Obesity affecting : Status: Acute Comment: HGBA1c (10) Ulcerative colitis: Status: Chronic Qualifiers: Digestive disease complication type: without complication Ulcerative colitis location: ulcerative rectosigmoiditis Qualified Code(s): 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 Relevant counseling for the gestational age provided. [...] 135/86 -?-?-?-?-?-?-?-?-?-?-?-?- 165 -?-?-?-?-?-?-?-?-?-?-?-?- JV- heart beat c heck today for her reassurance. she is getting more nauseated but also just stopped her hormones. Also going to stop metformin. zofran ordered. ACOG First Trimester First Trimester: Desire for , Alcohol, Tobacco Cessation, Illicit/Recreational Drug/Substance Use, Intimate Partner Violence, Barriers to care, Unstable Housing, Communication Barriers, Environmental/Work Hazards, Anticipated Course of Care, Toxoplasmosis Precations, Use of Any med ications, Sexual activity, Exercise, Dental Care, Sauna/Hot tub [...] Larc, Signs and Symptoms of Preeclampsia, Feeding No , [place] Education and Family Medical Leave or Disability [...] (15) Endometriosis: Status: Acute Comment: STAGE 2 Beverly 07/2023 ROR (16) Chronic GERD: Status: Chronic (17) Ulcerative colitis: Status: Chronic Qualifiers: Digestive disease complication type: without complication Ulcerative colitis location: ulcerative rectosigmoiditis Qualified Code(s): K51.30 - 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 Medications: New ondansetron 4 mg PO Q6H PRN 30 tabs 3RF nausea and vomiting 02/23/25 1143 e Celena DO> Date _ Marcia Rowley Signature: Date (if applicable) CC: ~ [facility]06-10-2025 Progress [facility] [address] [place] [address], [address] [place] [address] OFFICE VISIT Date of Service: 02/06/25 MR#: [id number] Acct: [id number] Name: MARIXA AMOS Rep #: [id number] : 1995 Provider: STEFANIE Lo Age/Sex: 29/F Location: [facility] [place] [place] Status: Signed Intake Vital Signs 07/12/24 08:32 02/02/25 15:25 02/06/25 08:17 Height 5 ft 3 in 5 ft 3 in 5 ft 3 in Weight: 185 lb 8 oz BMI 32.8 BP 118/70 Intake Visit Reasons: *EST* NOB IVF 12/26, GIL 09/13/25 Associate Relations Specialist Required: No Is patient in pain?: No [...] mg-folate no.1 1 mg-dha 300 mg capsule (PNV-[place]) prednisone 10 mg tablet 10 mg PO [...] 3-4 times per week duration: 45-60 minutes/day cathy/moravian: None seatbelt use: always do you feel safe at home: Yes 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 Relevant counseling for the gestational age provided. [...] family history (Father CABG, HTN, Hyperlipidemia) and Other(chronic GERD, Endometriosis) and Negative: Diabetes, Hypertension, Heart disease, Kidney disease/UTI, Neurologic/epilepsy, Psychiatric, Depression/ depression, Hepatitis/liver disease, Varicosities/phlebitis, Thyroid dysfunction, Trauma/domestic violence, D (Rh) Sensitized (B+), Pulmonary (e.g.,TB,Asthma), Seasonal allergies, Drug/latex allergies/reactions, Breast, Business Analytics Specialist surgery, Anesthetic complications, History of abnormal pap, Uterine anomaly/samson and Anti-retroviral treatment ACOG First Trimester First Trimester: Desire for , Alcohol, Tobacco Cessation, Illicit/Recreational Drug/Substance Use, Intimate Partner Violence, Barriers to care, Unstable Housing, Communication Barriers, Environmental/Work Hazards, Anticipated Course of Care, Toxoplasmosis Precations, Use of Any med ications, Sexual activity, Exercise, Dental Care, Sauna/Hot tub [...] and Symptoms of Preeclampsia, Feeding Yes , [place] Education and Family Medical Leave or Disability [...] additional complaints, except as documented, Denies abnormal vaginalbleeding, Denies difficulty voiding, Denies dyspareunia and Denies [...] Diagnoses resulting from in vitro fertilization, antepartum O09.81 Trimester: unspecified trimester History of maternal blood [...] (15) Endometriosis: Status: Acute Comment: STAGE 2 Beverly 07/2023 ROR (16) Chronic GERD: Status: Chronic [...] patient and patient chose: declines 02/06/25 0850 s CNM> Date _ Iesha Marte Signature: Date (if applicable) CC: ~ [facility] [id number] [facility] [address] [place] [address], [address] [place] [address] OFFICE VISIT Date of Service: 02/02/25 MR#: [id number] Acct: [id number] Name: MARIXA AMOS Rep #: [id number] : 1995 Provider: STEFANIE Allen Age/Sex: 29/F Location: [facility] [place] [place] Status: Signed Intake Vital Signs 01/25/25 14:45 02/02/25 15:25 Height 5 ft 3 in 5 ft 3 in Weight: 184 lb 8 oz 186 lb 4 oz BMI 32.6 33.0 BP 128/62 H 143/86 H Blood Pressure Location Rt brachial Position Sitting Intake Visit Reasons: fu early spotting per Associate Relations Specialist Required: No Is patient in pain?: No [...] mg-folate no.1 1 mg-dha 300 mg capsule (PNV-[place]) prednisone 10 mg tablet 10 mg PO QDAY 01/26/2502/02 History progesterone oil 75 mg IM QHS 01/26/25 History Post menopausal: No Patient : Yes : No [facility] Medical History Obesity (BMI 30.0-34.9) [...] 3-4 times per week duration: 45-60 minutes/day cathy/moravian: None seatbelt use: always do you feel safe at home: Yes 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 no longer havingbleeding, mild pink discharge. History 2 Elective abortions Hx Para 0 Spontaneous abortions 1 Hx # Term Pregnancies Ectopic pregnancies Hx # Pregnancies Multiple births # of living children Past Pregnancies Del. Date Name GA/Weeks Outcome Route Bth Weight Gen Labor Lgth Ane sthesia Del Locatn Provider FOB Unknown 07/2023 20 [...] 6/6, NOB scheduled for wednesday. 02/02/25 1609 ns CNM> Date _ Mary Bethnoemi Allen STEFANIE Cosigner Signature: Date (if applicable) CC: ~ [facility]06-06-2025 Progress note Author Mary Beth Allen [facility] Note Date/Time February 02, 2025 4:09p [facility] [address], [address] [place] [address] OFFICE VISIT Date of Service: 02/02/25 MR#: [id number] Acct: [id number] Name: MARIXA AMOS Rep #: [id number] : 1995 Provider: STEFANIE Allen Age/Sex: 29/F Location: [facility] Status: Signed Intake Vital Signs 01/25/25 14:45 02/02/25 15:25 Height 5 ft 3 in 5 ft 3 in Weight: 184 lb 8 oz 186 lb 4 oz BMI 32.6 33.0 BP 128/62 H 143/86 H Blood Pressure Location Rt brachial Position Sitting Intake Visit Reasons: fu early spotting per Associate Relations Specialist Required: No Is patient in pain?: No Allergies No Known Allergies Allergy (Verified 02/02/25 15:24) Medications ?Medication ?Instructions ?Recorded ?Confirmed ?Type ustekinumab 90 mg/mL subcutaneous 90 mg subcut Q8W #1 mL 11/08/24 06/06/25 Rx syringe (Stelara) aspirin 81 mg tablet,delayed [...] mg-folate no.1 1 mg-dha 300 mg capsule (PNV-[place]) prednisone 10 mg tablet 10 mg PO QDAY 01/26/2502/02 History progesterone oil 75 mg IM QHS 01/26/25 History Post menopausal: No Patient : Yes : No [facility] Medical History Obesity (BMI 30.0-34.9) [...] 3-4 times per week duration: 45-60 minutes/day cathy/moravian: None seatbelt use: always do you feel safe at home: Yes 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 [facility] fu early spotting per SM Details: MARIXA [...] Route Bth Weight Infant Gen Labor Lgth Ane sthesia Del Locatn Provider FOB Unknown 07/2023 20 [...] Cosigner Signature: Date (if applicable) CC: ~ [facility] Work Phone: 1(743) 228-378705-30-2025 Evaluation note* Diagnosis Onset Date Resolution Status Admit Date Amenorrhea resolved January 26, 2025 12:46pm Subchorionic hematoma in first trimester acute February 02, 2025 3 :00pm Crohn's disease acute January 8:12am History of anemia acute February 062024 8:12am History of maternal blood transfusion, currently acute February 06, 2025 8:12am Obesity affecting acute February 06, 2025 8:12am acute Oralia 10th, 202 5 8:12am resulting from in vitro fertilization acute February 06 8:12am Prior with demise acute February 06, 2025 8:12am Subchorionic hematoma in first trimester acute February 06, 2025 8:12am Supervision [...] February 23, 2025 10:46am Subchorionic hematoma in first trimester acute February 23, 2025 10:46am Supervision of high-risk acute February 23, 2025 10:46am Ulcerative colitis chronic January 292024 10:46am BMI 32.0-32.9,adult resolved February 23, 2025 10:46am Chronic GERD resolved February 23 10:46am Endometriosis resolved February 23, 2025 10:46am [...] resulting from in vitro fertilization acute March 09, 025 11:16am Prior with demise acute March 09, 2025 11:16am Subchorionic hematoma in first trimester acute March 09, 2025 11:16am Supervision of high-risk acute March 09, 2025 11:16am Ulcerative colitis chronic February 272024 11:16am Crohn's disease acute March 12:46pm History of anemia acute April 06, 2025 12:46pm History of maternal blood transfusion, currently acute April 06, 2025 12:46pm Obesity affecting acute April 06, 2025 12:46pm acute April 06 12:46pm resulting from in vitro fertilization acute April 06, 2025 12:46pm Prior with demise acute April 06, 2025 12:46pm Subchorionic hematoma in first trimester acute April 06, 2025 12:46pm Supervision of high-risk acute April 06, 2025 12:46pm Ulcerative colitis chronic April 06, 2025 12:46pm Crohn's disease acute May 01, 2025 2:53pm History of anemia acute 2024 2:53pm History of maternal blood transfusion, currently acute May 01, 025 2:53pm Obesity affecting acute May 01, 2025 2:53pm acute May 01, 2025 2:53pm resulting from in vitro fertilization acute April 2:53pm Prior with demise acute May 01, 2 025 2:53pm Subchorionic hematoma in first trimester acute May 01, 025 2:53pm Supervision of high-risk acute May 01, 2 025 2:53pm Ulcerative colitis chronic 2024 2:53pm Crohn's disease acute May 11, 2025 1:47pm History of anemia acute 2024 1:47pm History of maternal blood transfusion, currently acute May 11, 2025 1:47pm Obesity affecting acute May 11, 2025 1:47pm acute April 1:47pm resulting from in vitro fertilization acute May 112024 1:47pm Prior with demise acute May 11, 2025 1:47pm Subchorionic hematoma in first trimester acute May 11, 2025 1:47pm Supervision of high-risk acute May 11, 2025 1:47pm Ulcerative colitis chronic Septem 2024 1:47pm [facility] Work Phone: 1([phone]) 327-224105-29-2025 History of Present illness Narrative* Katelyn Benitez, CHARGEBACK ANALYST-MECHANICAL SYSTEMS CONTROL ENGINEER - 01/25/2025 2:00 PM EDT Visit Type: [...] establishing care with an OB. Will see [facility] [place], [place] on 01-26-2025. Will provide recommendations if [...] CNP 01/25/25 2:50 PM [facility] Work Phone: [phone] 263-764105-26-2025 Physician Emergency department Note* ISAURA Daniel - [...] vomiting. History provided by: Patient and spouse tray setter used: No Patient History Medical History[1] Surgical [...] Currently Drug use: Never ISAURA Daniel 01/22/25 1322 [facility] Work Phone: 1([phone]) 765-245005-26-2025 Emergency department Note* ISAURA Daniel - 01/22/2025 [...] vomiting. History provided by: Patient and spouse tray setter used: No Patient History Medical History[1] Surgical [...] issues at this time. [facility] Work Phone: 1([phone]) 590-255805-26-2025 Emergency department Triage note* Candi Kurtz RN - 01/22/2025 11:13 AM EDT Patient to ED for vaginal discharge. Patient reports being 6 weeks and noticed brown odorless discharge on Wednesday. Patient also reporting lower back pain. Patient denies any urinary issues at this time. [facility] Work Phone: 1(220) 269-934705-05-2025 Evaluation note* Diagnosis Onset Date Resolution Status Admit Date Chronic GERD chronic January 01 7:22am Ulcerative colitis chronic December 7:22am [facility] Work Phone: [phone]) 734-540305-05-2025 Evaluation note* Diagnosis Onset Date Resolution Status Admit Date Chronic GERD chronic January 01 7:22am Ulcerative colitis chronic December h2024 7:22am Amenorrhea acute January 26, 2025 12:46pm Subchorionic hematoma in fir st trimester acute February 02, 2025 3 :00pm [facility] Work Phone: 1([phone]) 237-907005-05-2025 Evaluation note* Diagnosis Onset Date Resolution Status Admit Date Chronic GERD chronic January 01 7:22am Ulcerative colitis chronic December 5t h2024 7:22am Amenorrhea resolved January 26, 2025 12:46pm [...] 8:12am Ulcerative colitis chronic January 282024 8:12am [facility] Work Phone: 1(772) 466-970505-05-2025 Evaluation note* Diagnosis Onset Date Resolution Status [...] 10:46am Ulcerative colitis chronic January 292024 10:46am [facility] Work Phone: [phone] Evaluation note* Diagnosis Onset Date Resolution Status [...] 2025 10:46am Chronic GERD resolved February 23 10:46am Endometriosis resolved February 23, 2025 10:46am [...] 11:16am Ulcerative colitis chronic February 272024 11:16am [facility] Work Phone: 1([phone]) 135-705805-05-2025 Evaluation note* Diagnosis Onset Date Resolution Status [...] 2025 10:46am Chronic GERD resolved February 23 10:46am Endometriosis resolved February 23, 2025 10:46am [...] 11:16am Ulcerative colitis chronic February 272024 11:16am Crohn's disease acute March 12:46pm History of anemia acute April 06, 2025 12:46pm History of maternal blood transfusion, currently acute April 06, 2025 12:46pm Obesity affecting acute April 06, 2025 12:46pm acute April 06 12:46pm resulting from in vitro fertilization acute April 06, 2025 12:46pm Prior with demise acute April 06, 2025 12:46pm Subchorionic hematoma in fir st trimester acute April 06, 2025 12:46pm Supervision of high-risk acute April 06, 2025 12:46pm Ulcerative colitis chronic April 06, 2025 12:46pm [facility] Work Phone: 1([phone] 583-768705-05-2025 Evaluation note* Diagnosis Onset Date Resolution Status Admit Date Ulcerative colitis chronic December 7:22am Chronic GERD resolved January 01 7:22am Amenorrhea resolved January 26, 2025 12:46pm Subchorionic hematoma in first trimester acute Oralia 6th, 2025 3 :00pm Crohn's disease acute January 8:12am History of anemia acute February 062024 8:12am History of maternal blood transfusion, currently acute February 06, 2025 8:12am Obesity affecting acute February 06, 2025 8:12am acute February 06 8:12am resulting from in vitro fertilization acute February 06 8:12am Prior with demise acute February 06, 2025 8:12am Subchorionic hematoma in first trimester acute February 06, 2025 8:12am Supervision [...] February 23, 2025 10:46am Subchorionic hematoma in first trimester acute February 23, 2025 10:46am Supervision of high-risk acute February 23, 2025 10:46am Ulcerative colitis chronic January 292024 10:46am BMI 32.0-32.9,adult resolved February 23, 2025 10:46am Chronic GERD resolved February 23 10:46am Endometriosis resolved February 23, 2025 10:46am [...] March 09, 2025 11:16am Subchorionic hematoma in first trimester acute March 09, 2025 11:16am Supervision of high-risk acute March 09, 2025 11:16am Ulcerative colitis chronic February 272024 11:16am Crohn's disease acute March 12:46pm History of anemia acute April 06, 2025 12:46pm History of maternal blood transfusion, currently acute April 06, 2025 12:46pm Obesity affecting acute April 06, 2025 12:46pm acute April 06 12:46pm resulting from in vitro fertilization acute April 06, 2025 12:46pm Prior with demise acute April 06, 2025 12:46pm Subchorionic hematoma in first trimester acute April 06, 2025 12:46pm Supervision of high-risk acute April 06, 2025 12:46pm Ulcerative colitis chronic April 06, 2025 12:46pm Crohn's disease acute May 01, 2025 2:53pm History of anemia acute 2024 2:53pm History of maternal blood transfusion, currently acute May 01 025 2:53pm Obesity affecting acute May 01, 2025 2:53pm acute May 01, 2025 2:53pm resulting from in vitro fertilization acute April 2:53pm Prior with demise acute May 01, 025 2:53pm Subchorionic hematoma in first trimester acute May 01 025 2:53pm Supervision of high-risk acute May 01, 025 2:53pm Ulcerative colitis chronic 2024 2:53pm [facility] Work Phone: [phone] History of Present illness Narrative* Gavino Tristan MD - 12/26/2024 11:15 AM EDTAssociated Order(s): Embryo Transfer Pre-Procedure Diagnose(s): Encounter for assisted reproductive fertility cycle Post-Procedure Diagnose(s): Encounter for assisted reproductive fertility cycle Patient ID: Mairxa Amos is a 29 y.o. female. Embryo [...] Preop diagnosis: Infertility Post op diagnosis: Same Sports Coordinator: Dr. Holder Depth: 7 cm Curve: anterior [...] Tristan 12/26/24 11:35 AM [facility] Work Phone: [phone]) [phone] Hospital Discharge instructions* Discharge Instructions* Sarah Bansal RN - 12/26/2024 10:41 AM EDT Images from the original note were not included. [facility] [address]. [place] [address] Home Going Instructions after Embryo Transfer: After [...] in : Advil, Motrin, Ibuprofen, Aleve, Excedrin, Michelle-Hamilton, Sudafed, and Pepto-Bismol. Avoid aspirin unless you [...] SARAH BANSAL 10:41 AM documented in this [facility] Work Phone: [phone]) [phone] History of Present illness Narrative* Anabell Rogel MD - 12/20/2024 1:00 PM EDT Lg Amos is a 29 y.o. female who presents for the following: Wart (Right 3rd toe plantar wart-pt states was treated with ln2 at [facility]. ). Review of Systems: No other [...] Anabell Rogel MD 12/20/2024 [facility] Work Phone: 1([phone]) 343-877804-18-2025 History of Present illness Narrative* Amy Cherry [...] - Amy Cherry RN documented [facility] Work Phone: [phone]) [phone] Evaluation + Plan note* Assessment & Plan Note - Denise Ordonez MD - 12/11/2024 2:30 PM EDTAssociated Problem(s): Polycystic ovarian disease She is following with gynecology. [facility] Work Phone: [phone]) [phone] Evaluation + Plan note* Assessment & Plan Note - Denise Ordonez MD - 12/11/2024 2:30 PM EDTAssociated Problem(s): Crohn's disease of colon without complication (Multi) She is following with gastroenterology. [facility] Work Phone: [phone]) 335-382604-14-2025 History of Present illness Narrative* Denise Ordonez [...] is following with gastroenterology. documented in this [facility] Work Phone: [phone]) [phone] Miscellaneous Notes* Assessment & Plan Note - Denise Ordonez MD - 12/11/2024 2:30 PM EDTAssociated Problem(s): Polycystic ovarian disease She is following with gynecology. * Assessment & Plan Note - Denise Ordonez MD - 12/11/2024 2:30 PM EDTAssociated Problem(s): Crohn's disease of colon without complication (Multi) She is following with gastroenterology. [facility] Work Phone: [phone]) [phone] Nurse Note* Michaelle López RN - 11/22/2024 11:20 AM EDT Patient discharged to home in stable condition via wheelchair to RIDE HOME: Partner's car. Discharge instructions given and concerns addressed. [facility] Work Phone: [phone] Nurse Note* Michaelle López RN - 11/22/2024 11:20 AM EDT Patient discharged to home in stable condition via wheelchair to RIDE HOME: Partner's car. Discharge instructions given and concerns addressed. [facility] in [facility] Work Phone: [phone] History of Present illness Narrative* Henrietta Herndon [...] diagnosis: Female infertility Post op diagnosis: Same Sports Coordinator: Leslie IV Fluids: 700 cc EBL: 5 cc UOP: Not recorded Specimen: Oocytes Complications: None Number of Oocytes right ovary: 14 Ovarian acc ss (right): Easy Number of Oocytes left ovary: 9 Ovarian access (left): Easy Endometrial thickness: TL Needle type: Single Additional notes: I was present and supervised the entire procedure. Henrietta Herndon 11/22/24 10:16 AM documented in this [facility] Work Phone: [phone] Hospital Discharge instructions* Discharge Instructions* Sarah Bansal RN - 11/22/2024 8:38 AM EDT Images from the original note were not included. [facility] [address]. [place] [id number] Home Going Instructions after Egg Retrieval: Activity: [...] 2 weeks following your oocyte retrieval. Call [phone] to speak with a Physician or Nurse if you have any concerns. SARAH BANSAL 8:38 AM [facility] [address]. [place], [place] IVF LAB EMBRYO UPDATE PROTOCOL The [...] biopsied and frozen. SARAH BANSAL 8:38 AM [facility] [address]. [place] [address] Frozen Embryo Transfer Instructions After your egg retrieval, follow up with your IVF nurse within 3-4 days Wednesday- Wednesday regarding theplan for your frozen embryo transfer (FET) cycle. Your IVF nurse will order and review with you themedications you will be using for the cycle. You will be sent an email from [facility] to fill out your Frozen Embryo Treatment [...] BANSAL RN 8:38 AM documented in this [facility] Work Phone: [phone]) [phone] History of Present illness Narrative* Amy Cherry [...] patient later today with results and plan. Aym Cherry 11/20/2024 9:44 AM Telephone call made [...] ask you to either come here to [facility] or a [facility] lab attached to a [facility]. If you go to a standing lab we cannot guarantee we would get your results in a timely manner! Please see trigger shot and retrieval day instructions below! Your retrieval will fall on Wednesday 11/22 at 10:00 AM but please arrive 1 hr early, getting here at 9:00 AM! Patient to go to [facility] tomorrow for post trigger labs and yearly labs/STDs. Patient aware to hold Metformin will also hold Omeprazole (only takes as needed) starting tomorrow evening. Lab reqs to be printed and placed at commercial front load operator. 11/20/24 at 2:19 PM - Amy Cherry RN documented [facility] Work Phone: [phone]) [phone] History of Present illness Narrative* Imelda Cali [...] Cali 11/18/2024 10:08 AM [facility] Work Phone: [phone] History of Present illness Narrative* Mikhail Ascencio [...] continued monitoring. Patient agreeable. Patient transferred to front for scheduling. Detailed MyChart sent as well. 11/16/24 at 1:54 PM - Mikhail Ascencio RN documented in [facility] Work Phone: [phone] History of Present illness Narrative* Amy Cherry [...] and will RTC . Patient transferred to commercial front load operator. 11/14/24 at 1:36 PM - Amy Cherry RN documented in [facility] Work Phone: [phone] History of Present illness Narrative* Amy Cherry RN - 11/08/2024 10:15 AM EDT MUKESH NOTE - IVF STIM BASELINE Patient presents for baseline ultrasound and/or labs. 29yr old patient of Dr. Tre HOANG 5.3. IVF #2 for hx of endo. Treatment protocol: ANT with FSH 100 and menopur 75 and HGH AVOID DROPPING DOSE Adjuncts: No PGT Lead in: OCP Start date for lead in: 10/19/24 Last estrace/OCP date: 11/07/24 PGT-A/M? No PGT order scanned into Epic, confirmed by: N/A on N/A Plan to freeze: embryos [employer] forms/out waiver complete: Yes Does patient have medications onhand? No not yet, ordered yesterday [facility] Board[facility] signed off: Yes signed by Alejandra Chávez MD at 11/07/2024 CBC reviewed by MD? Yes Date of Female STDs: December 14, 2023 - will get re-drawn prior to next treatment cycle Date of Male STDs: February 2024 Medically complex on boarding pass: no If indicated, is PAT consult complete? N/A SPERM: partner Fresh with Frozen Backup Number of vials confirmed: 2 on 11/08/24 at [facility] Component Latest Ref Rng 11/08/2024 WBC 4.4 [...] MyChart sent to patient. Patient transferred to commercial front load operator to schedule for Wednesday. 11/08/24 at 3:18 PM - Amy Cherry RN documented in this [facility] Work Phone: 1(624) 528-584602-12-2025 Nurse Note* Pao Beard RN - 10/11/2024 10:55 AM EST Patient discharged to home in stable condition via wheelchair to RIDE HOME: Partner's car. VSS at time of discharge. Discharge instructions given and concerns addressed. Pao Beard RN 10/11/24 11:13 AM [facility] Work Phone: 1(286) 279-666302-12-2025 Nurse Note* Pao Beard RN - 10/11/2024 10:55 AM EST Patient discharged to home in stable condition via wheelchair to RIDE HOME: Partner's car. VSS at time of discharge. Discharge instructions given and concerns addressed. Pao Beard RN 10/11/24 11:13 AM [facility] Work Phone: 1(851) 414-707902-12-2025 Nurse Note* Pao Beard RN - 10/11/2024 10:55 AM EST Patient discharged to home in stable condition via wheelchair to RIDE HOME: Partner's car. VSS at time of discharge. Discharge instructions given and concerns addressed. Pao Beard RN 10/11/24 11:13 AM [facility] Work Phone: [phone]) 450-332402-12-2025 History of Present illness Narrative* Henrietta Herndon [...] diagnosis: Female infertility Post op diagnosis: Same Sports Coordinator: Leslie IV Fluids: 300 cc EBL: 5 cc UOP: Not recorded Specimen: Oocytes Complications: None Number of Oocytes right ovary: 16 Ovarian access (right): Easy Number of Oocytes left ovary: 9 Ovarian access (left): Easy Endometrial thickness: Tl Needle type: Single Additional notes: I was present and supervised the entire procedure. Henrietta Herndon 10/11/24 9:42 AM [facility] Work Phone: [phone]) 416-761702-12-2025 History of Present illness Narrative* Henrietta Herndon [...] diagnosis: Female infertility Post op diagnosis: Same Sports Coordinator: Leslie IV Fluids: 300 cc EBL: 5 cc UOP: Not recorded Specimen: Oocytes Complications: None Number of Oocytes right ovary: 16 Ovarian access (right): Easy Number of Oocytes left ovary: 9 Ovarian access (left): Easy Endometrial thickness: Tl Needle type: Single Additional notes: I was present and supervised the entire procedure. Henrietta Herndon 10/11/24 9:42 AM [facility] Work Phone: [phone]) [phone] Miscellaneous Notes* Addendum Note - Pao Beard RN - 10/11/2024 9:15 AM ESTEncounter addended by: Pao Beard RN on: 10/11/2024 2:38 PM Actions taken: MAR administration accepted documented in this [facility]Un[facility] Work Phone: 1(765) 152-565102-12-2025 Note* Addendum Note - Pao Beard RN - 10/11/2024 9:15 AM ESTEncounter addended by: Pao Beard RN on: 10/11/2024 2:38 PM Actions taken: MAR administration accepted [facility] Work Phone: 1(650) [phone] Hospital Discharge instructions* Discharge Instructions* Pao Beard RN - 10/11/2024 7:49 AM EST Images from the original note were not included. [facility] [address] [place] [address] Home Going Instructions after Egg Retrieval: Activity: [...] 2 weeks following your oocyte retrieval. Call [phone] to speak with a Physician or Nurse if you have any concerns. Pao Beard 9:11 AM [facility] [address] [facility]. [place], [place] IVF LAB EMBRYO UPDATE PROTOCOL The [...] biopsied and frozen. Pao Beard 9:11 AM [facility] [address]. [place] [address] Frozen Embryo Transfer Instructions After your egg retrieval, follow up with your IVF nurse within 3-4 days Wednesday- Wednesday regarding theplan for your frozen embryo transfer (FET) cycle. Your IVF nurse will order and review with you themedications you will be using for the cycle. You will be sent an email from [employer] to fill out your Frozen Embryo Treatment [...] Beard RN 9:10 AM documented in this [facility] Work Phone: 1(679) 351-786402-10-2025 History of Present illness Narrative* Mikhail Ascencio [...] get post trigger labs drawn tomorrow at [facility] lab. Patient to beginCabergoline 0.5mg x8days. Trigger and trigger day instructions given over the phone and sent via [employer] for reference. Patient agreeable. [facility] for review. 10/09/24 at 3:01 PM - Mikhail Ascencio RN documented in this [facility] Work Phone: [phone]) [phone] History of Present illness Narrative* Lisbeth Spencer [...] Arrive 60 minutes prior to procedure at [facility]. Patient verbalizes understanding of plan and [...] Holder 10/08/24 1:16 PM [facility] Work Phone: [phone] History of Present illness Narrative* Lisbeth Spencer [...] and plan. Lisbeth Spencer 10/07/2024 8:53 AM Alicanto message sent with plan. Lisbeth Spencer 10/07/24 12:05 PM [facility] Work Phone: 1(422) 279-579402-06-2025 History of Present illness Narrative* Mikhail Ascencio [...] continued monitoring. Patient agreeable. Patient transferred to [facility] for scheduling.[employer] with plan sent to patient. 10/05/24 at 1:23 PM - Mikhail Ascencio RN [facility] Work Phone: [phone] 114-696001-29-2025 History of Present illness Narrative* Mikhail Ascencio RN - 09/27/2024 8:45 AM EST IVF NURSE CONSULT Here for IVF Nurse consult. Tentative Calendar given and reviewed. Yes Meds have been ordered from: [facility] Patient aware that plan is [...] Ascencio 09/27/2024 9:11 AM [facility] Work Phone: [phone]) 777-844101-29-2025 History of Present illness Narrative* Mikhail Ascencio RN - 09/27/2024 8:15 AM EST MUKESH NOTE - IVF STIM BASELINE Patient presents for baseline ultrasound and/or labs. Treatment protocol: ANT FSH 150 and menopur 75 Trigger plan: HCG vs Lupron Lead in: OCP Start date for lead in: 09/10 Last estrace/OCP date: 09/26 PGT-A/M? Yes; Req Sent: Yes; PGT-M Test Ready: No ; Company: [employer] PGT order scanned into [employer]ek, confirmed by: on 09/27 (scanned in to media tab on 07/18/24) Plan to freeze: embryos [employer] forms/out waiver complete: Yes Does patient have medications onhand? Yes Pharmacy: [facility] Boarding pass signed off: Yes CBC reviewed by ? Yes Component Latest Ref Rng 09/27/2024 WBC [...] continued monitoring. Patient agreeable. Patient transferred to [facility] for scheduling. [employer] sent to patient with plan and tentative calendar for reference. 09/27/24 at 1:34 PM - Mikhail Ascencio RN documented in this [facility] Work Phone: 1(291) 152-584112-16-2024 History of Present illness Narrative* Hilary Holder [...] yes Risks discussed: Bleeding, infection and pain [place] protocol: Procedure explained and questions answered to [...] diagnosis: fertility testing Post op diagnosis: Same Sports Coordinator: Fellow Anesthesia: None IV: None EBL: 3 [...] well, no immediate complications documented in this [facility] Work Phone: 1(364) 495-171311-15-2024 History of Present illness Narrative* Imelda Pollard [...] See scanned record. Saline Infused Sonography: n/a VP TREASURER Pelvic Ultrasound: normal, see scanned record Partner SA: Normal- Romel Amos (scanned into [facility] records) Did genetic screening in [place]- negative per patient. Treatment to date: Fertility [...] mouth 2 times a day before meals. 8-UCKA-UYITF ACID-OM3 ORAL Take 1 capsule by mouth [...] doing an insemination (IUI) this cycle. - [place] [phone] - [place] [phone] Ovulation predictor kits test for LH hormone [...] Pollard 07/14/2024 1:48 PM documented in this [facility] Work Phone: [phone]) [phone] History of Present illness Narrative* Sarah Espino, CHARGEBACK ANALYST-MECHANICAL SYSTEMS CONTROL ENGINEER - 01/25/2024 11:15 AM EDT Virtual or [...] See scanned record. Saline Infused Sonography: n/a VP TREASURER Pelvic Ultrasound: normal, see scanned record Partner SA: Normal- Romel Am[facility] Did genetic screening in [place]- negative per patient. Treatment to date: Fertility [...] mouth 2 times a day before meals. 7-SOGQ-AHEHM ACID-OM3 ORAL Take 1 capsule by mouth [...] an insemination (IUI) this cycle. - [place] [phone] - [place] [phone] Ovulation predictor kits test for LH hormone in your urine. There are a variety of kits available -[employer] [email or web address] (NOT the Advanced version) has worked well [...] Espino 01/25/2024 11:20 AM documented in this [facility] Work Phone: [phone]) [phone] NotePap Smear Specimen AdequacyApril 2023 3:45pmComment.Satisfactory for evaluation. Endocervical and/or squamous metaplasticcells (endocervical component)are present.[facility] INTERFACED A#[id number] HospitalComment on above:Satisfactory for evaluation. Endocervical and/or squamous metaplasticcells (endocervical component)are present.10-01-2023 Procedure [facility] 10-01-2023 Procedure [facility]02-02-2024 [facility] 08-27-2023 Hospital Discharge instructions Patient Education [...] what activities are safe for you. Take bpll-ral-uigizev and prescription medicines only as told by [...] 11/22/2001 Document Revised: 08/19/2018 Document Reviewed: 04/01/2018 [employer] Patient Education 2020 [employer]. 08/27/2023 13:15:43 Nausea and Vomiting, Adult Nausea [...] water added (diluted fruit juice). Eat bland, nfdd-nv-plsbes foods in small amounts as you are able. These foods include bananas, applesauce, rice, lean meats, toast, and crackers. Avoid fluids that contain a lot of sugar or caffeine, such as energy drinks, sports drinks, and soda. Avoid alcohol. Avoid spicy or fatty foods. General instructions Take chbu-gxf-wuekykp and prescription medicines only as told by your health care provider. Drink enough fluid to keep your urine pale yellow. Wash your hands often using soap and water. If soap and water are not available, use hand tele marketing executive. Make sure that all people in your [...] eating and drinking to prevent dehydration. Take vtji-xpb-glnfepg and prescription medicines only as told by [...] 08/16/2006 Document Revised: 12/08/2019 Document Reviewed: 01/24/2019 [employer] Patient Education 2020 [employer]. 08/27/2023 13:15:03 Endometrial Ablation, Care After Endometrial [...] are safe for you. General instructions Take lddr-fgy-qkfznup and prescription medicines only as told by [...] 06/28/2018 Document Revised: 12/07/2019 Document Reviewed: 06/28/2018 [employer] Patient Education 2020 [employer]. 08/27/2023 11:52:28 8- Post Op VP TREASURER Minor Surgery What to Do After Your [...] as your pain allows. You may take vcjk-vuf-umzloqdzajd medication if you no longer need your prescribed pain medication. Wsov-jbl-jnsfgtx pain medications are Tylenol (acetaminophen) or Advil (ibuprofen). Do not take Tylenol if you are still taking [place] or Percocet. They are the same type [...] Care 08/02/2023 10:09:45 With:ERNA TROTTER MD Address: [address] [place] [address]- [phone] When:Within 2 Week(s) [facility] 12-29-2023 Note Discharge Instructions Thank you for allowing [facility] to assist you with your healthcare needs. The following is importantdischarge information regarding your hospital visit. Your Care Team CATRACHITO MERCEDES MD Your Diagnosis Crohn's disease Family history of endometriosis Female infertility Postoperative pain What to do next Follow Up Appointments Follow Up with ERNA TROTTER MD When In 2 weeks Where: [address] [place] [address] [phone] The Following Activity and Diet Have Been [...] Duration: 14 Days Refills: 1 Pickup at [facility] #66505 New acetaminophen-oxyCODONE (Percocet 5 mg-325 mg oral tablet) 1 tab(s) by mouth Every 4 hours as needed for for pain Postoperative pain Duration: 7 Days Pickup at [email or web address][id number] New ibuprofen (ibuprofen 800 mg oral tablet) 1 tab(s) by mouth Every 8 hours Duration: 14 Days Pickup at [facility] #62010 New ondansetron (Zofran 4 mg oral tablet) 1 tab(s) by mouth Every 6 hours as needed for Nausea/Vomiting Duration: 5 Days Pickup at [facility] #92097 Unchanged cholecalciferol (Vitamin D3) 25 Microgram by [...] Milliliter Subcutaneous Every 8 weeks [facility] [address] [place], [place] [id number] [phone] Please take this list to your next [...] what activities are safe for you. Take oweb-jxj-izoubbx and prescription medicines only as told by [...] 11/22/2001 Document Revised: 08/19/2018 Document Reviewed: 04/01/2018 [employer] Patient Education 2020 [employer] Nausea and Vomiting, Adult Nausea is [...] water added (diluted fruit juice). Eat bland, phrz-pz-swymtx foods in small amounts as you are able. These foods include bananas, applesauce, rice, lean meats, toast, and crackers. Avoid fluids that contain a lot of sugar or caffeine, such as energy drinks, sports drinks, and soda. Avoid alcohol. Avoid spicy or fatty foods. General instructions Take wujh-kyz-oypfvtl and prescription medicines only as told by your health care provider. Drink enough fluid to keep your urine pale yellow. Wash your hands often using soap and water. If soap and water are not available, use hand tele marketing executive. Make sure that all people in your [...] right away. Call your local emergency services (401 in the [place] Do not drive yourself to the hospital. Summary Nausea is the feeling that you have an upset stomach or that you are about to vomit. As nausea getsworse, it can lead to vomiting. Vomiting can make you feel weak and cause you to become dehydrated. Follow instructions from your health care provider about eating and drinking to prevent dehydration. Take xvnp-uck-filsjoq and prescription medicines only as told by [...] 08/16/2006 Document Revised: 12/08/2019 Document Reviewed: 01/24/2019 [employer] Patient Education 2020 [employer]. Endometrial Ablation, Care After This sheet gives [...] are safe for you. General instructions Take kexc-iau-kjnntct and prescription medicines only as told by [...] 06/28/2018 Document Revised: 12/07/2019 Document Reviewed: 06/28/2018 [employer] Patient Education 2020 [employer] What to Do After Your Gynecology [...] as your pain allows. You may take bbhh-oli-pelyhmqoopg medication if you no longer need your prescribed pain medication. Peyf-rjy-gbpgpzb pain medications are Tylenol (acetaminophen) or Advil (ibuprofen). Do not take Tylenol if you are still taking [place] or Percocet. They are the same type [...] to receive it can visit one of [facility] vaccine clinics. There are many vaccine clinic locations within the [facility]. For locations and available times, please visit [email or web address].coronavirus.[place].gov/. It is important to note that some COVID mobile vaccine clinics are held outdoors and may be canceled in rainy or stormy conditions. To learn more about pediatric vaccinations (ages 5-11), we invite you to visit the [facility] webpage. https://www.[email or web address].org/pages/7521-Rkjmr-Hlbnjvhdpww-Srzfpqifvs-Rhkso-Iqk stions.htmlTo learn more about the COVID-19 vaccine, we invite you to visit the CDC website for a list of frequently asked questions.https://www.cdc.gov/coronavirus/2019-ncov/vaccines/faq.html [facility] Access Instructions: Stay connected with your healthcare team and access your personal medical information anytime with the [facility] Patient Portal. Please follow the directions below to create your [facility]ountDoc account: 1.Access the email account you provided upon registration to the hospital/physician office.2.Look for an invitation email from [facility].3.Open the email and access the invitation link: AcceptInvitation to [facility].4.Fill in the required barnes to create your account. To access your account, visit [email or web address]. Click the blue button labeled Access Patient [...] who you will allowto register on the [facility] Patient Portal for access to your information. You can also access the [facility] Patient Portal on the [facility] Multi[employer] Networkswhere nancie. Simply click on Patient Portal and then log into your account. If you would like to receive a full copy of your medical records, please contact the [facility] Medical Records Department by calling [phone], Wednesday through Wednesday between 8 a.m. and [...] Call your local pharmacy or go to http://bit.ly/8K5Wg5f to find one close to you.3.Make use of household items: Use cat litter or old coffee grounds to dispose medications if other options arenot available. Mix your drugs with these household products, seal them in an airtight container andthrow it into the garbage. Call [facility]: [phone] to be sure your drugs can be [...] Endometrial Ablation, Care After 8- Post Op VP TREASURER Minor Surgery Medication Leaflets My discharge plan and instructions have been reviewed and explained to me and IOMI HEATHER M understand my current condition and have read and understand these discharge instructions. I have received a written copy of the plan/instructions. If I have questions, I am aware that I should contact my doctor. Patient/Home Health Lpn Signature: Date/Time: Relationship to Patient: Witness Name/Signature: Date/Time: [facility]12-29-2023 Note Date of Service 08/27/23 History and [...] ERNA TROTTER MD on 08/27/2023 11:[address] [facility]12-29-2023 Anesthesiology Consult note Patient: MARIXA BRAGA Age: 28 years Sex: Female : 1995 Associated Diagnoses: None Author: CHELLY BUSTAMANTE APRN-CLINICAL LABORATORY SCIENCE PROFESSOR Preoperative Information Time of last food or [...] list: Medical Crohn disease / SNOMED CT 44866222 / Confirmed Wellness examination / SNOMED CT 476264601 / Confirmed Weight gain / SNOMED CT 08186105 / Confirmed, Active Problems (4) Crohn disease GERD (gastroesophageal reflux disease) Weight gain Wellness examination Histories Past Medical History: Resolved ([id number]): Onset on 07/18/2018 at 23 years. Resolved in 2019 at 23 years. ([id number]): Onset on 07/19/2017 at 22 years. Resolved in 2018 at 22 years. Family History: Anxiety Sister Hypertension Father Heart disease Father Alcoholism Father Depression Father Procedure history: Colonoscopy ([id number]). 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 [employer] Substance Abuse 08/27/2023 Use: Never Tobacco 08/27/2023 Tobacco Use: Never (less than 100 in l Exercise 04/20/2023 Exercise type: Walking Times per week: 5-6 times/week Home/Environment 08/27/2023 Living situation: Home/Independent Domestic Concerns None Primary Elevator Pilot: Self Current Home Treatments None Special Services [...] Resp Rate 20 br/min (AUG 27 10:13) STZ981 mmHg (AUG 27 10:13) DBP81 mmHg (AUG 27 10:13) Measurements from flowsheet : Measurements 08/27/2023 10:13 EST Height 160 cm Admission Weight 75 kg [place] Body Weight 52.38 kg Admission Body Mass [...] Height 160 cm Admission Weight 75 kg [place] Body Weight 52.38 kg Admission Body Mass [...] Person #1 We May Share LAURA Amos [phone] Designated Person #1 Relationship Spouse Privacy Restrictions [...] Method Explanation, Printed materials Preferred Spoken Language Yi Preferred Written Language Yi Teaching Evaluation No further teaching needed Safety Brochure Information Reviewed Unable to complete [facility] Watson Video Viewed No Information Given by [...] QC PRGUP Positive . Assessment and Plan [place] Society of Anesthesiologists (ASA) physical status classification: Class II. Anesthetic Preoperative Plan Premedication: intravenous. Anesthetic technique: General. Induction: intravenously. Maintenance airway: Oral endotracheal tube. Postoperative pain management: Per surgeon. Risks discussed: nausea, vomiting, sore throat. Informed consent: signed by patient. Digitally Signed by CHELLY BUSTAMANTE on 08/27/2023 11:[address] [facility]08-11-2023 Telephone encounter Note* Telephone Encounter - Cher Calderon - 04/09/2023 11:53 AM EDT Name of caller: MARIXA Relation to patient: patient Contact phone number: [phone] Appointment scheduled with: LANDY BLAIR Appointment date & time: 05/04/23 @ 7:50 AM Reason for visit (are you having any symptoms) : Low blood pressure, unexpected weight gain Transportation issues/ concerns: NO Special accommodations? ( wheel chair, etc) : NO Current medications: STELARA Any refills need: NO Any chronic conditions the provider should be aware of: CHRON'S, 14 WEEKS [id number] Telephone encounter Note* Telephone Encounter - Cher Calderon - 04/09/2023 11:53 AM EDT In order to comply with the No Surprises Act, [employer] is providing you with the following attachments. Any Good Cathy Estimate that may be provided are based on the services you are scheduled toreceive. During your visit, there may be additional services required in order for the provider to complete your plan of care. DECLINED [place] [id number] Miscellaneous Notes* Telephone Encounter - Cher Robles AyoubYumiko - 04/09/2023 11:53 AM EDT In order to comply with the No Surprises Act, [facility] is providing you with the following attachments. Any Good Cathy Estimate that may be provided are based on the services you are scheduled toreceive. During your visit, there may be additional services required in order for the provider to complete your plan of care. DECLINED documented in this [facility]08-11-2023 Miscellaneous Notes* Telephone Encounter - Cher Robles Yumiko - 04/09/2023 11:53 AM EDT Name of caller: MARIXA Relation to patient: patient Contact phone number: [phone] Appointment scheduled with: LANDY BLAIR Appointment date & time: 05/04/23 @ 7:50 AM Reason for visit (are you having any symptoms) : Low blood pressure, unexpected weight gain Transportation issues/ concerns: NO Special accommodations? ( wheel chair, etc) : NO Current medications: STELARA Any refills need: NO Any chronic conditions the provider should be aware of: CHRON'S, 14 WEEKS documented in this [place] [address]-07-2023 Telephone encounter Note* Telephone Encounter - Aishatwyla Calderon - 04/05/2023 3:44 PM EDT PATIENT SUBMITTED ONLINE APPOINTMENT REQUEST FOR A PCP APPOINTMENT. SPOKE TO PATIENT AND GOT SOME INFORMATION BUT SHE HAD TO GET OFF THE LINE AND STATES SHE WILL C/B. OK TO SCHEDULE WITH ANY PROVIDERWHEN PATIENT CALLS BACK. FirstName : Marixa LastName : OMI Pronouns : PronounsOther : Email : [email or web address] Phone : [phone] Birthdate : 1995 12:00:00 AM BestTimeToCallBack : Afternoon AppointmentDate : Kirk PhysicianRequested : Symptoms : Weight gain, low blood pressure OptIn : False [id number] Miscellaneous Notes* Telephone Encounter - Cher Calderon - 04/05/2023 3:44 PM EDT PATIENT SUBMITTED ONLINE APPOINTMENT REQUEST FOR A PCP APPOINTMENT. SPOKE TO PATIENT AND GOT SOME INFORMATION BUT SHE HAD TO GET OFF THE LINE AND STATES SHE WILL C/B. OK TO SCHEDULE WITH ANY PROVIDERWHEN PATIENT CALLS BACK. FirstName : Marixa LastName : OMI Pronouns : PronounsOther : Email : [email or web address] Phone : [phone] Birthdate : 1995 12:00:00 AM BestTimeToCallBack : Afternoon AppointmentDate : Kirk PhysicianRequested : Symptoms : Weight gain, low blood pressure OptIn : False documented in this encounterSum[facility] HealthEvaluation + Plan note No data available for this section [facility] Evaluation + Plan note Future Appointments Appointment Date:08/16/2023 10:45:00 AM Scheduled Provider:CATRACHITO MERCEDES MD Location:[facility] Appointment Type:PC OV Follow Up [facility] Evaluation note* Diagnosis Onset Date Resolution Status Ulcerative colitis acute Ulcerative colitis [facility] Work Phone: Evaluation note* Diagnosis Onset Date Resolution Status Ulcerative colitis [facility] Work Phone: Evaluation note* Diagnosis Onset Date Resolution Status Chronic GERD chronic Ulcerative colitis [facility] Work Phone: Evaluation note* Diagnosis Onset Date Resolution Status Endometriosis acute Infertility [facility] Work Phone: Evaluation note* Diagnosis Female infertility- Primary Female infertility of unspecified origin Endometriosis Endometriosis, site unspecified documented in this encounter [facility] Work Phone: [phone] note* Diagnosis Fertility testing- Primary Encounter for preprocedural laboratory examination Female fertility problem [N97.9] documented in this encounter [facility] Work Phone: [phone] note* Diagnosis Endometritis- Primary Unspecified inflammatory disease of uterus Fertility testing documented in this encounter [facility] Work Phone: [phone] note* Diagnosis Endometritis- Primary Unspecified inflammatory disease of uterus Fertility testing documented in this encounter [facility] Work Phone: [phone] note* Diagnosis Female infertility Female infertility of unspecified origin documented in this encounter [facility] Work Phone: [phone] note* Diagnosis Female infertility Female infertility of unspecified origin documented in this encounter [facility] Work Phone: [phone] note* Diagnosis Female infertility Female infertility of unspecified origin documented in this encounter [facility] Work Phone: [phone] note* Diagnosis Encounter for assisted reproductive fertility cycle Encounter for assisted reproductive fertility procedure cycle documented in this encounter [facility] Work Phone: [phone] note* Diagnosis Encounter for assisted reproductive fertility cycle Encounter for assisted reproductive fertility procedure cycle documented in this encounter [facility] Work Phone: [phone] note* Diagnosis Female infertility Female infertility of unspecified origin documented in this encounter [facility] Work Phone: [phone] note* Diagnosis Female infertility Female infertility of unspecified origin documented in this encounter [facility] Work Phone: [phone] note* Diagnosis Fertility testing- Primary Female infertility Female infertility of unspecified origin Screening for diabetes mellitus Encounter for Rh blood typing Encounter for blood typing Screening for STDs (sexually transmitted diseases) Screening examination for venereal disease Screening for thyroid disorder documented in this encounter [facility] Work Phone: [phone] note* Diagnosis Encounter for assisted reproductive fertility cycle Encounter for assisted reproductive fertility procedure cycle documented in this encounter [facility] Work Phone: Evaluation note* Diagnosis Encounter for assisted reproductive fertility cycle Encounter for assisted reproductive fertility procedure cycle documented in this encounter [facility] Work Phone: Evaluation note* Diagnosis Healthcare maintenance- Primary Hypovitaminosis D Unspecified vitamin D deficiency Polycystic ovarian disease Polycystic ovaries Crohn's disease of colon without complication (Multi) documented in this encounter [facility] Work Phone: Evaluation note* Diagnosis Healthcare maintenance- Primary Hypovitaminosis D Unspecified vitamin D deficiency Polycystic ovarian disease Polycystic ovaries Crohn's disease of colon without complication (Multi) Female infertility Female infertility of unspecified origin documented in this encounter [facility] Work Phone: Evaluation note* Diagnosis Healthcare maintenance- Primary Hypovitaminosis D Unspecified vitamin D deficiency Polycystic ovarian disease Polycystic ovaries Crohn's disease of colon without complication (Multi) Plantar wart- Primary Dermatologic problem documented in this encounter [facility] Work Phone: Evaluation note* Diagnosis Healthcare maintenance- Primary Hypovitaminosis D Unspecified vitamin D deficiency Polycystic ovarian disease Polycystic ovaries Crohn's disease of colon without complication (Multi) Encounter for assisted reproductive fertility cycle Encounter for assisted reproductive fertility procedure cycle documented in this encounter [facility] Work Phone: Evaluation note* Diagnosis Healthcare maintenance- Primary Hypovitaminosis D Unspecified vitamin D deficiency Polycystic ovarian disease Polycystic ovaries Crohn's disease of colon without complication (Multi) Encounter to determine viability of , single or unspecified fetus- Primary documented in this encounter [facility] Work Phone: Evaluation note* Diagnosis Healthcare maintenance- Primary Hypovitaminosis D Unspecified vitamin D deficiency Polycystic ovarian disease Polycystic ovaries Crohn's disease of colon without complication (Multi) Vaginal discharge- Primary Leukorrhea, not specified as infective documented in this encounter [facility] Work Phone: Evaluation note* Diagnosis Healthcare maintenance- Primary Hypovitaminosis D Unspecified vitamin D deficiency Polycystic ovarian disease Polycystic ovaries Crohn's disease of colon without complication (Multi) Encounter to determine viability of , single or unspecified fetus- Primary documented in this encounter [facility] Work Phone: History and physical note Author Domo Weaver [facility] October 01, 2023 11:37am Note Date/Time October 01, 2023 1 1:37am [facility] Medical Records Department [address] [place] [address] History & Physical Exam 10/01/23 1137 MR#: [id number] Acct: [id number] Name: MARIXA BRAGA Rep #:[id number] : 1995 28 From: Domo Weaver DO PCP: CATRACHITO MERCEDES Status:[facility] Location: [place] [address] History and Physical Date of Admission: 10/01/23 MARIXA BRAGA, is a 28 F who presents to the office today for *BGI established 07.28.21 previously diagnosed with IBD, Crohn?s versus UC/proctitis extending to sigmoid colon/pancolitis following colonoscopy; treated with balsalazide until 2019. Reports frequent LGIB. Humira started 2018 and currently taking QWeek OV 1..22 continues with Humira Qweek and is doing well from a GI standpoint. She has concerns that her UC is impairing her ability to get as fertility testing was normal for her and her . Start azathioprine OV 2..22 Azathioprine unable to be started r/t need for PA. ID Dr. Villagomez established and treated with four months rifampin; OK to continue Humira, do not start azathioprine for one month. OV 7..22 possible change of therapy to Stelara. Start hyoscyamine. ? Colonoscopy 05.25.23 cancelled related to . OV 12.. reports loose stools two weeks prior with [...] GAME? Stool c.difficile, EP, O/P, giardia WNL 08..22? Stelara Infusion?? 11.16.22 4/<2.9?? 54/? --? 8.4/neg? [...] well developed Nutritional Appearance: average body habitus HENMT Head: normal to inspection Eyes General: appearance normal, both eyes and all related structures Resp Effort & Inspection: normal respiratory effort GI Inspection: normal to inspection Skin General: no rashes or lesions noted Quality Reporting [facility] Screening ([facility]) Smoking Status: Never smoker Assessment and [...] some mucousy stools when [place] was in [place] but thatonly lasted for a couple days [...] no clinicalchanges since date of exam. 10/01/23 6002 <Electronically signed by Domo Weaver DO> Cosigner Signature (if applicable): CC: CATRACHITO MERCEDES; Domo Friend, DO~ Signed [facility] Work Phone: History of Present illness Narrative* ISAURA Garcia - 01/11/2025 2:00 PM EDT Visit Type: In Person reviewed, Authorization status not noted. OB Scan Ectopic risk factor: yes endometriosis PGTA/PGTM: no Blood type: B Method of Conception: Frozen Embryo transfer Day 5 reginald 4 AA Reviewed results from OB ultrasound [...] Espino 01/11/2025 1:31 PM [facility]: Hospital Discharge instructions No data available for this section [facility] Progress note No data available for this section [facility] Prograkz note Author Iesha Lo [facility] Note Date/Time February 06, 2025 8:50 am [facility] [address] [place] [address], [address] [place] [address] OFFICE VISIT Date of Service: 02/06/25 MR#: [id number] Acct: [id number] Name: MARIXA AMOS Rep #: [id number] : 1995 Provider: STEFANIE Lo Age/Sex: 29/F Location: [facility] Status: Signed Intake Vital Signs 07/12/24 08:32 02/02/25 15:25 02/06/25 08:17 Height 5 ft 3 in 5 ft 3 in 5 ft 3 in Weight: 185 lb 8 oz BMI 32.8 BP 118/70 Intake Visit Reasons: *EST* NOB IVF 12/26, GIL 09/13/25 Associate Relations Specialist Required: No Is patient in pain?: No [...] mg-folate no.1 1 mg-dha 300 mg capsule (PNV-[place]) prednisone 10 mg tablet 10 mg PO [...] 3-4 times per week duration: 45-60 minutes/day cathy/moravian: None seatbelt use: always do you feel safe at home: Yes 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 Elective abortions Hx Para 0 [...] Pulmonary (e.g.,TB,Asthma), Seasonal allergies, Drug/latex allergies/reactions, Breast, Business Analytics Specialist surgery, Anesthetic complications, History of abnormal pap, [...] (15) Endometriosis: Status: Acute Comment: STAGE 2 Beverly 07/2023 ROR (16) Chronic GERD: Status: Chronic [...] Cosigner Signature: Date (if applicable) CC: ~ [facility] Work Phone: Progress note Author Marcia Dallas [facility] Note Date/Time February 23, 2025 11:[facility] [address] [place] [address], [address] [place] [address] OFFICE VISIT Date of Service: 02/23/25 MR#: [id number] Acct: [id number] Name: MARIXA AMOS Rep #: [id number] : 1995 Provider: Dr. Amanda Yen, Age/Sex: 29/F Location: [facility] Status: Signed Intake Vital Signs 02/06/25 08:17 02/23/25 11:00 02/23/25 11:01 Height 5 ft 3 in 5 ft 3 in 5 ft 3 in Weight: 186 lb 2 oz BMI 32.9 BP 135/86 H Intake Visit Reasons: Heart beat Check *IVF Associate Relations Specialist Required: No Is patient in pain?: No [...] mg-folate no.1 1 mg-dha 300 mg capsule (PNV-[place]) prednisone 10 mg tablet 10 mg PO [...] house current occupational status: employed current occupation: [place] current occupational exposures/hazards: No pets and animals: [...] 3-4 times per week duration: 45-60 minutes/day cathy/moravian: None seatbelt use: always do you feel safe at home: Yes 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 Date Name GA/Weeks Outcome Route Bth Weight Infant Gen Labor Lgth Anesthesia Del Zenatrobles Provider FOB Unknown 07/2023-Julio 20 still Male Delivery Date: Last Updated by: Jacquie Fernández Mathewprice demise, possible subchorionic hematoma HPI Heart beat [...] 135/86 -?-?-?-?-?-?-?-?-?-?-?-?- 165 -?-?-?-?-?-?-?-?-?-?-?-?- JV- heart beat jany heck today for her reassurance. 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 Medications: New ondansetron 4 mg PO Q6H PRN 30 tabs 3RF nausea and vomiting 02/23/25 1143 <Electronically signed by Marcia Vand e Velde DO> Date _ Marcia Tamraluiz Celena DO [facility] Signature: Date (if applicable) CC: ~ [facility] Work Phone: Reason for referral (narrative)No reason for referral information availableWSelect Medical [facility] Work Phone: Reason for visit Narrative* Other Medical (Routine) - Authorized Specialty Diagnoses / Procedures Referred By Contac t Referred To Contact Reproductive Endocrinology and Infertility Diagnoses Fertility testing Procedures Hysteroscopy diagnostic Imelda Pollard MD [address] [place] [address] Phone: tel: fax: Referral ID Status Reason Start Date Expiration Date V isits Requested Visits Authorized [id number] Authorized 07/14/2024 07/14/2025 1 1 [facility] Work Phone: Refapp for visit Narrative* Imaging (Routine) - Authorized Specialty Diagnoses / Procedures [facility] Referred To Contact Radiology Diagnoses Female infertility Procedures TERRENCE US Pelvis Limited Follicles - Follicle Studies Performed Alejandra Chávez MD [address] [facility] Sobeida Dhaliwal [address] [address] Phone: tel: fax: Referral ID Status Reason Start Date Expiration Date Visits Requested Visits Authorized [id number] Authorized Perform Procedure 4 08/17/2025 8 8 [facility] Work Phone: reason for visit Narrative* Procedure (Routine) - Authorized Specialty Diagnoses / Procedures Referred By Contact Referred To Contact Reproductive Endocrinology and Infertility Diagnoses Encounter for assisted reproductive fertility cycle Procedures Egg Retrieval ID FOLLICLE PUNCTURE OOCYTE RETRIEVAL ANY METHOD CHG [...] SPRM ID FROM ASPIR OTH/THN SEMINAL Katelyn Benitez R, CHARGEBACK ANALYST-MECHANICAL SYSTEMS CONTROL ENGINEER [address] [place] [address] Phone: tel:[phone] fax:[phone] Referral ID Status Reason Start Date Expiration Date V isits Requested Visits Authorized [id number] Authorized 09/12/2024 09/12/2025 1 1 [facility] Work Phone: ReBountyHunter for visit Narrative* Imaging (Routine) - Authorized Specialty Diagnoses / Procedures Referred By Contac t Referred To Contact Radiology Diagnoses Female infertility Procedures TERRENCE US Pelvis Limited Follicles - Follicle Studies Performed Alejandra Chávez MD [address] [facility] Sobeida Dhaliwal, [place] [address] Phone: tel: fax: Referral ID Status Reason Start Date Expiration Date Visits Requested Visits Authorized [id number] Authorized Perform Procedure 11/07/2024 11/07/2025 8 8 [facility] Work Phone: Rezkvg for visit Narrative* Procedure (Routine) - Authorized Specialty Diagnoses / Procedures Referred By Contact Referred To Contact Reproductive Endocrinology and Infertility Diagnoses Encounter for assisted reproductive fertility cycle Procedures Egg Retrieval ID FOLLICLE PUNCTURE OOCYTE RETRIEVAL ANY METHOD CHG [...] SPRM ID FROM ASPIR OTH/THN SEMINAL Katelyn Benitez R, CHARGEBACK ANALYST-MECHANICAL SYSTEMS CONTROL ENGINEER [address] [place] [address] Phone: tel:[phone] fax:[phone] Referral ID Status Reason Start Date Expiration Date V isits Requested Visits Authorized [id number] Authorized 10/19/2024 10/19/2025 1 1 [facility] Work Phone: Reason for visit Narrative* Imaging (Routine) - Authorized Specialty Diagnoses / Procedures Referred By Denny serna Referred To Contact Radiology Diagnoses Female infertility Procedures TERRENCE US Endometrial Lining Check Imelda Pollard MD [address] [place] [address] Phone: tel: fax: Referral ID Status Reason Start Date Expiration Date Visits Requested Visits Authorized [id number] Authorized Perform Procedure 11/28/2024 11/28/2025 5 5 [facility] Work Phone: Reason for visit Narrative* Procedure (Routine) - Authorized Specialty Diagnoses / Procedures Referred By Denny serna Referred To Contact Reproductive Endocrinology and Infertility Diagnoses Encounter for assisted reproductive fertility cycle Procedures Embryo Transfer ID EMBRYO TRANSFER INTRAUTERINE CHG ULTRASONIC GUIDANCE INTRAOPERATIVE CHG THAWING CRYOPRESERVED EMBRYO CHG ASSTD EMBRYO HATCHING MICROTQS ANY METH CHG PREPJ EMBRYO TR Imelda Pollard MD [address] [place] [address] Phone: tel: fax: Referral ID Status Reason Start Date Expiration Date V isits Requested Visits Authorized [id number] Authorized 11/30/2024 08/29/2025 1 1 [facility] Work Phone: Summary Purpose Family History Relationship Condition Age at Onset Recorded Date/T karyna grandmother Diabetes mellitus Unknown grandfather Diabetes mellitus Unknown Relationship Condition Age at Onset Recorded Date/T karyna grandmother Diabetes mellitus Unknown grandfather Diabetes mellitus Unknown father Hypertension Unknown Hyperlipidemia Unknown Coronary artery disease Unknown Advance Directives Advance Directive Response Recorded Date/ Time Living Will Yes June 25 12:50pm Power of Data Migration Lead Yes June 25, 2023 12:50pm Advance Directive Response Recorded Date/ Time Name of Medical Power of Data Migration Lead Naila WADE LD September 29, 2023 8:44am Living Will Yes September 29 8:44am Power of Data Migration Lead Yes September 29, 2023 8:44am Advance Directive Response Recorded Date/ Time Name of Medical Power of Data Migration Lead ANNA WADE LD September 29, 2023 9:44am Living Will Yes September 29 9:44am Power of Data Migration Lead Yes September 29, 2023 9:44am Advance Directive Response Recorded Date/ Time Living Will Yes September 29 9:44am Do you have a Healthcare Power of Data Migration Lead? Yes September 29, 2023 9:44am Chief Complaint and Reason for Visit Chief Complaint ESTABLISH W/ NEW GI AFTER MOVING TO [place] 6 W[facility] FU INT LABS Reason for [...] 3:00pm Chief Complaint Admit Date 1 Y FU January 01, 2025 7:22am EORDER January 06, 2025 8:19a m Pre new ob, confirm preg, vitals December 12:46pm fu early spotting per SM February 02, 2025 3:00pm *EST* NOB IVF 12/26, GIL 09/13/25January 8:12am Reason for Visit Admit Date Chronic [...] 3:00pm *EST* NOB IVF 12/26, GIL 09/13/25January 10 h2024 8:12am Heart beat Check *IVF February 23, [...] February 23, 2025 10:4 6am Obesity affecting Oralia 27th, 2 025 10:46am PCOS (polycystic ovarian syndrome) February 23, [...] February 06, 2025 8:12am Obesity affecting February 06, 025 8:12am February 06, 2025 8:12 am resulting [...] Ulcerative colitis March 09, 2025 11:1 6am Chief Complaint Admit Date 1 Y FU January 01, 2025 7:22am EORDER January 06, 2025 8:19a m Pre new ob, confirm preg, vitals December 12:46pm fu early spotting per SM February 02, 2025 3:00pm *EST* NOB IVF 12/26, GIL 09/13/25January 8:12am Heart beat Check *IVF February 23, 2025 10 :46am 13 WK OB *IVF March 09, 2025 11:1 6am INT LABS FOR 2 ORDERING DOCTORS February 8:32am Chief Complaint Admit Date 1 Y FU January 01, 2025 7:22am EORDER January 06, 2025 8:19a m Pre new ob, confirm preg, vitals December 12:46pm fu early spotting per SM February 02, 2025 3:00pm *EST* NOB IVF 12/26, GIL 09/13/25January 8:12am Heart beat Check *IVF February 23, 2025 10 :46am 13 WK OB *IVF March 09, 2025 11:1 6am INT LABS FOR 2 ORDERING DOCTORS February 8:32am 17 wk ob *IVF April 06, 2025 12: 46pm Reason for Visit Admit Date Ulcerative colitis January 01, 2025 7:22am Chronic GERD January 01, 2025 7:22am Amenorrhea January 26, 2025 12:46 pm Subchorionic hematoma in first trimester February 02, 2025 3:00pm Crohn's disease February 06, 2025 8:12 am History of anemia February 06, 2025 8:12 am History of maternal blood transfusion, c urrently February 06, 2025 8:12am Obesity affecting February 06, 025 8:12am February 06, 2025 8:12 am resulting [...] Ulcerative colitis March 09, 2025 11:1 6am Crohn's disease April 06, 2025 12: 46pm History of anemia April 06, 2025 12: 46pm History of maternal blood transfusion, c urrently April 06, 2025 12:46pm Obesity affecting April 06, 2025 12:46pm April 06, 2025 12: 46pm resulting from in vitro fertil ization April 06, 2025 12:46pm Prior with demise April 06, 2025 12:46pm Subchorionic hematoma in first trimester April 06, 2025 12:46pm Supervision of high-risk Augus t 2024 12:46pm Ulcerative colitis April 06, 2025 12: 46pm Chief Complaint Admit Date 1 Y FU January 01, 2025 7:22am EORDER January 06, 2025 8:19a m Pre new ob, confirm preg, vitals December 12:46pm fu early spotting per SM February 02, 2025 3:00pm *EST* NOB IVF 12/26, GIL 09/13/25January 8:12am Heart beat Check *IVF February 23, 2025 10 :46am 13 WK OB *IVF March 09, 2025 11:1 6am INT LABS FOR 2 ORDERING DOCTORS February 8:32am 17 wk ob *IVF April 06, 2025 12: 46pm 21wk ob *IVF May 01, 2025 2:53pm Reason for Visit Admit Date Ulcerative colitis January 01, 2025 7:22am Chronic GERD January 01, 2025 7:22am Amenorrhea January 26, 2025 12:46 pm Subchorionic hematoma in first trimester February 02, 2025 3:00pm Crohn's disease February 06, 2025 8:12 am History of anemia February 06, 2025 8:12 am History of maternal blood transfusion, c urrently February 06, 2025 8:12am Obesity affecting February 06, 025 8:12am February 06, 2025 8:12 am resulting [...] 23, 2025 10:46am Obesity affecting February 23 025 10:46am February 23, 2025 10:4 6am resulting [...] Ulcerative colitis March 09, 2025 11:1 6am Crohn's disease April 06, 2025 12: 46pm History of anemia April 06, 2025 12: 46pm History of maternal blood transfusion, c urrently April 06, 2025 12:46pm Obesity affecting April 06, 2025 12:46pm April 06, 2025 12: 46pm resulting from in vitro fertil ization April 06, 2025 12:46pm Prior with demise April 06, 2025 12:46pm Subchorionic hematoma in first trimester April 06, 2025 12:46pm Supervision of high-risk Augus t 2024 12:46pm Ulcerative colitis April 06, 2025 12: 46pm Crohn's disease May 01, 2025 2:53pm History of anemia May 01, 2025 2:53pm History of maternal blood transfusion, c urrently May 01, 2025 2:53pm Obesity affecting April 2:53pm May 01, 2025 2:53pm resulting from in vitro fertil ization May 01, 2025 2:53pm Prior with demise Septem mary 2024 2:53pm Subchorionic hematoma in first trimester May 01, 2025 2:53pm Supervision of high-risk Septe mber 2024 2:53pm Ulcerative colitis May 01, 2025 2:53pm Chief Complaint Admit Date Pre new ob, confirm preg, vitals December 12:46pm fu early spotting per SM February 02, 2025 3:00pm *EST* NOB IVF 12/26, GIL 09/13/25January 8:12am Heart beat Check *IVF February 23, 2025 10 :46am 13 WK OB *IVF March 09, 2025 11:1 6am INT LABS FOR 2 ORDERING DOCTORS February 8:32am 17 wk ob *IVF April 06, 2025 12: 46pm 21wk ob *IVF May 01, 2025 2:53pm FHT check, spotting May 11, 2025 1:47pm Reason for Visit Admit Date Amenorrhea January 26, 2025 12:46 pm Subchorionic hematoma in first trimester February 02, 2025 3:00pm Crohn's disease February 06, 2025 8:12 am History of anemia February 06, 2025 8:12 am History of maternal blood transfusion, c urrently February 06, 2025 8:12am Obesity affecting February 06 025 8:12am February 06, 2025 8:12 am resulting [...] March 09, 2025 11:16am Obesity affecting March 09, 2 025 11:16am March 09, 2025 11:1 6am resulting from in vitro fertil ization March 09, 2025 11:16am Prior with demise February [id number] 11:16am Subchorionic hematoma in first trimester March 09, 2025 11:16am Supervision of high-risk March 09, 2025 11:16am Ulcerative colitis March 09, 2025 11:1 6am Crohn's disease April 06, 2025 12: 46pm History of anemia April 06, 2025 12: 46pm History of maternal blood transfusion, c urrently April 06, 2025 12:46pm Obesity affecting April 06, 2025 12:46pm April 06, 2025 12: 46pm resulting from in vitro fertil ization April 06, 2025 12:46pm Prior with demise April 06, 2025 12:46pm Subchorionic hematoma in first trimester April 06, 2025 12:46pm Supervision of high-risk Augus t 2024 12:46pm Ulcerative colitis April 06, 2025 12: 46pm Crohn's disease May 01, 2025 2:53pm History of anemia May 01, 2025 2:53pm History of maternal blood transfusion, c urrently May 01, 2025 2:53pm Obesity affecting April 2:53pm May 01, 2025 2:53pm resulting from in vitro fertil ization May 01, 2025 2:53pm Prior with demise Septem mary 2024 2:53pm Subchorionic hematoma in first trimester May 01, 2025 2:53pm Supervision of high-risk Septe mb 2024 2:53pm Ulcerative colitis May 01, 2025 2:53pm Crohn's disease May 11, 2025 1:47pm History of anemia May 11, 2025 1:47pm History of maternal blood transfusion, c urrently May 11, 2025 1:47pm Obesity affecting May [id number] 1:47pm May 11, 2025 1:47pm resulting from in vitro fertil ization May 11, 2025 1:47pm Prior with demise Septem mary 2024 1:47pm Subchorionic hematoma in first trimester May 11, 2025 1:47pm Supervision of high-risk Geralde mber 2024 1:47pm Ulcerative colitis May 11, 2025 1:47pm Additional Source Comments INFORMATION SOURCE (unrecogn ized section and content) DATE CREATED AUTHOR 07/01/2019 [facility] DATE CREATED AUTHOR AUTHOR'S ORGANIZ ATION 04/10/2023 [facility] DATE CREATED AUTHOR AUTHOR'S ORGANIZ ATION 11/26/2023 [facility] ([place]) DATE CREATED AUTHOR AUTHOR'S ORGANIZ ATION 12/22/2024 [facility] DATE CREATED AUTHOR AUTHOR'S ORGANIZ ATION 12/22/2024 [facility] DATE CREATED AUTHOR AUTHOR'S ORGANIZ ATION 01/26/2025 [facility] DATE CREATED AUTHOR AUTHOR'S ORGANIZ ATION 01/29/2025 [facility] DATE CREATED AUTHOR AUTHOR'S ORGANIZ ATION 05/02/2025 [facility] DATE CREATED AUTHOR AUTHOR'S ORGANIZ ATION 05/10/2025 [facility] DATE CREATED AUTHOR AUTHOR'S ORGANIZ ATION 05/11/2025 [facility] Goals (unrecognized section and content) Goals may [...] wart-pt states was treated with ln2 at [facility]. Reason Comments Vaginal Discharge Care Teams (unrecognized sec tion and content) Team Status: Active Member Role Status Dates No Primary Care Physician Family Provider Active CATRACHITO MERCEDES Primary Care Provider Active Team Status: Inactive Member Role Status Dates No Primary Care Physician Primary Care Provider, Refer ring Provider Active Dr. Domo Weaver , Attending Provider Active Team Status: Inactive Member [...] CNM Attending Provider, Referring Pro vider Active Behavioral Health Aide Relationship Specialty Start Date End Date Amy Cherry RN Registered Nurse 07/17/24 Behavioral Health Aide Relationship Specialty Start Date End Date Amy Cherry RN Registered Nurse 07/17/24 Behavioral Health Aide Relationship Specialty Start Date End Date Amy Cherry RN Registered Nurse 07/17/24 Behavioral Health Aide Relationship Specialty Start Date End Date Amy Cherry RN Registered Nurse 07/17/24 Behavioral Health Aide Relationship Specialty Start Date End Date Tsiros, Amy, RN Registered Nurse 07/17/24 Behavioral Health Aide Relationship Specialty Start Date End [facility] Behavioral Health Aide Relationship Specialty Start Date End [facility] 07/17/24 Behavioral Health Aide Relationship Specialty Start Date End Date [facility] Registered Nurse 07/17/24 Behavioral Health Aide Relationship Specialty Start Date End [facility] 07/17/24 Behavioral Health Aide Relationship Specialty Start Date End Date [facility] Reg[facility] 07/17/24 Behavioral Health Aide Relationship Specialty Start Date End Date [facility] 07/17/24 Behavioral Health Aide Relationship Specialty [place] [id number] [address] [address] PCP - General Internal Medicine 12/11/24 [facility] Reg[facility] 07/17/24 Behavioral Health Aide Relationship Specialty Start [place] [id number] [address] [address] PCP - General Internal Medicine 12/11/24 [facility] Reg[facility] 07/17/24 Behavioral Health Aide Relationship Specialty Start [place] [id number] [address] [address] PCP - General Internal Medicine 12/11/24 [facility] Registered [facility] 07/17/24 Behavioral Health Aide Relationship Specialty Start [place] [id number] [address] [address] PCP - General Internal Medicine 12/11/24 [facility] Registered Nurse 07/17/24 Team Status: Active [...] January 06, 2025 End: January 06, 2025 Behavioral Health Aide Relationship Specialty [place] [id number] [facility] [address] [place] [address] PCP - General Internal Medicine 12/11/24 Amy Cherry, RN Registered Nurse 07/17/24 Behavioral Health Aide Relationship Specialty [place] [address] [facility] [address] [place] [address] PCP - General Internal Medicine 12/11/24 Amy Cherry, RN Registered Nurse 07/17/24 Team Status: Inactive Member Role Status Dates Dr. Catrachito Mercedes MD Primary Care Provider Active Start: January 26, 2025 End: January 26, 2025 Dr. Catrachito Mercedes MD Referring Provider Active Start: January 26, 2025 End: January 26, 2025 Dr. Carmen Lugo MD Attending Provider Active Start: January 26, [...] Active Start: February 06, 2025 Dr. Carmen Lugo MD Attending Provider Active Start: February 06, 2025 Dr. Carmen Lugo MD Referring Provider Active Start: February 06, [...] 2025 End: February 06, 2025 Dr. Carmen Lugo MD Attending Provider Active Start: February 06, 2025 End: February 06, 2025 Dr. Carmen Lugo MD Referring Provider Active Start: February 06, [...] 2025 End: January 26, 2025 Dr. Carmen Lugo MD Attending Provider Active Start: January 26, [...] 2025 End: February 06, 2025 Dr. Carmen Lugo MD Attending Provider Active Start: February 06, 2025 End: February 06, 2025 Dr. Carmen Lugo MD Referring Provider Active Start: February 06, [...] 2025 End: March 09, 2025 Dr. Carmen Lugo MD Attending Provider Active Start: March 09, 2025 End: March 09, 2025 Team Status: Inactive Member Role/Relationship Status Dates Dr. Catrachito Mercedes MD Primary Care Provider Active Start: March 10, 2025 End: March 10, 2025 Dr. Domo Weaver DO Attending Provider Active Start: March 10, 2025 End: March 10, 2025 Dr. Domo Weaver DO Referring Provider Active Start: March 10, 2025 End: March 10, 2025 Dr. Carmen Lugo MD Other Provider Active Start: March 10, 2025 End: March 10, 2025 Team Status: Inactive Member Role/Relationship Status Dates Dr. Catrachito Mercedes MD Primary Care Provider Active Start: April 06, 2025 End: April 06, 2025 Dr. Catrachito Mercedes MD Referring Provider Active Start: April 06, 2025 End: April 06, 2025 Iesha Lo CNM Attending Provider Active S tart: April 06, 2025 End: April 06, 2025 Team Status: Inactive Member Role/Relationship Status Dates Dr. Catrachito Mercedes MD Primary Care Provider Active Start: May 01, 2025 End: May 01, 2025 Dr. Catrachito Mercedes MD Referring Provider Active Start: May 01, 2025 End: May 01, 2025 Dr. Carmen Lugo MD Attending Provider Active Start: May 01, 2025 End: May 01, 2025 Team Status: Inactive Member Role/Relationship Status Dates Dr. Catrachito Mercedes MD Primary Care Provider Active Start: January 26, 2025 End: January 26, 2025 Dr. Catrachito Mercedes MD Referring Provider Active Start: January 26, 2025 End: January 26, 2025 Dr. Carmen Lugo MD Attending Provider Active Start: January 26, [...] 2025 End: February 06, 2025 Dr. Carmen Lugo MD Attending Provider Active Start: February 06, 2025 End: February 06, 2025 Dr. Carmen Lugo MD Referring Provider Active Start: February 06, [...] 2025 End: March 09, 2025 Dr. Carmen Lugo MD Attending Provider Active Start: March 09, 2025 End: March 09, 2025 Team Status: Inactive Member Role/Relationship Status Dates Dr. Catrachito Mercedes MD Primary Care Provider Active Start: March 10, 2025 End: March 10, 2025 Dr. Domo Weaver DO Attending Provider Active Start: March 10, 2025 End: March 10, 2025 Dr. Domo Weaver DO Referring Provider Active Start: March 10, 2025 End: March 10, 2025 Dr. Carmen Lugo MD Other Provider Active Start: March 10, 2025 End: March 10, 2025 Team Status: Inactive Member Role/Relationship Status Dates Dr. Catrachito Mercedes MD Primary Care Provider Active Start: April 06, 2025 End: April 06, 2025 Dr. Catrachito Mercedes MD Referring Provider Active Start: April 06, 2025 End: April 06, 2025 Iesha Lo CNM Attending Provider Active S tart: April 06, 2025 End: April 06, 2025 Team Status: Inactive Member Role/Relationship Status Dates Dr. Catrachito Mercedes MD Primary Care Provider Active Start: May 01, 2025 End: May 01, 2025 Dr. Catrachito Mercedes MD Referring Provider Active Start: May 01, 2025 End: May 01, 2025 Dr. Carmen Lugo MD Attending Provider Active Start: May 01, 2025 End: May 01, 2025 Team Status: Inactive Member Role/Relationship Status Dates Dr. Catrachito Mercedes MD Primary Care Provider Active Start: May 11, 2025 End: May 11, 2025 Dr. Catrachito Mercedes MD Referring Provider Active Start: May 11, 2025 End: May 11, 2025 Iesha Lo CNM Attending Provider Active S tart: May 11, 2025 End: May 11, 2025 FOR RECORDS PERTAINING TO PATIENTS WHO [...] BE BASED ON THE PRIMARY CLINICAL RECORDS. [facility] provides no warranty or guarantee of the accuracy or completeness of information in this document.
[2025-05-12 09:45] LABS: Hematocrit 30.0 % (37-47); Hemoglobin 10.0 g/dL (12.0-15.0); Immature Granulocytes Count 0.080 X10^3/uL (0.0-0.0); Mean Corp Hgb Conc 33.3 g/dL (32-36); Mean Corpuscular Volume 89.6 fL (81-99); Mean Platelet Vol. 10.2 fl (6.2-12.0); NRBC Flagged by Analyzer 0 % (0-5); Platelet Count 313 K/mm3 (150-450); RBC Distribution Width CV 12.7 % (11.6-14.6); RBC Distribution Width SD 41.3 fl (35.1-43.9); Red Blood Count 3.35 M/mm3 (4.2-5.4); White Blood Count 9.2 K/mm3 (4.4-11.0)
[2025-05-12 11:00] LABS: AST(SGOT) 23 U/L (<=31); Alanine Aminotransfer ALT/SGPT 28 U/L (<=34); Albumin, Serum 3.8 g/dL (3.5-5.0); Alkaline Phosphatase 62 U/L (35-104); Anion Gap 13 (5-15); BUN 6 mg/dL (4-19); BUN/Creat Ratio 10.9 RATIO (10-20); CRP 8.18 mg/L (0.0-3.0); Calcium,Total 9.1 mg/dL (7.6-11.0); Carbon Dioxide 17.8 mmol/L (21.0-32.0); Chloride 107 mmol/L (98-108); Globulin 3.0 g/dL (2.2-4.2); Glucose 152 mg/dL (70-99); Potassium 3.7 mmol/L (3.3-5.1)
== END | disposition home or self-care (01) ==
LOC: LAB 08:51
PROVIDERS: PCP Family Medicine; Referring Provider Internal Medicine Gastroenterology; Visit Provider Internal Medicine Gastroenterology
DX: K50.90 Crohn's disease, unspecified, without complications (principal)
CPT/HCPCS: 36415; 80053; 85025; 85652; 86140

== ENCOUNTER → 2025-05-13 | Outpatient (CLI) | payer BC, SELFPAY ==
--- OUTSIDE RECORDS SUMMARY | 2025-05-13 09:08 | XMS RPT_ITS | CCD ---
Author Organization [facility] CliniSysd Care Team Providers Care Holistic Nutritionist Name Role Phone Care Physician, No Primary Primary Care Provider Unavailable Care Physician, No Primary Referring Provider Un available FriendDr. Oliveros Attending Provider [phone] Ezequiel VU, MIRELLA-C Imelda Fernández Attending Provider [phone] Care Physician, No Primary Primary Care Provider Unavailable Care Physician, No Primary Referring Provider Un available Care Physician, No Primary Primary Care Provider Unavailable Care Physician, No Primary Referring Provider Un available Ezequiel VU, DIRECTOR PHARMACOVIGILANCE-C Imelda Fernández Attending Provider [phone] Unavailable Primary Care Provider Unavailabl e Care Physician, No Primary Primary Care Provider Unavailable Care Physician, No Primary Referring Provider Un available Friend, Dr. Oliveros Attending Provider [phone] CATRACHITO MERCEDES MD Primary Care Physician FriendDr. Oliveros Other Provider [phone] MAGO, NASTAMICHEL Primary Care Provider Unavailab le MAGO, NASTARAN Referring Provider Unavailable Care Physician, No Primary Primary Care Provider Unavailable Care Physician, No Primary Referring Provider Un available FriendDr. Oliveros Attending Provider [phone] FriendDr. Oliveros Other Provider [phone] MAGO, NASTARAN Primary Care Provider Unavailab le [...] Provider Mago BLANCO, Dr. Winston Referring Provider [phone] Friend , Dr. Oliveros Referring Provider DENISE [...] Care Unavailable DENISE ORDONEZ Primary Care Unavailable GAVION TRISTAN Attending Unavailable IMELDA POLLARD Referring Unavailable [...] Unavailable Alejandro WATTS, Mary Beth Attending Provider [phone] Iesha Lo CNM Attending Provider [phone] Manfred BLANCO, Dr. Morales Referring Provider [phone] Marcia Yen DO Attending Provider Manfred BLANCO, Dr. Morales Other Provider [phone] Mago, Nastaran Primary Care Unavailable Mago, Nastaran Referring Unavailable Carmen Lugo Attending Unavailable Mago, Nastaran Primary Care Unavailable Mago, Nastaran Referring Unavailable Marcia Yen Attending Unavailabl e Mago, Nastaran Referring Unavailable Mago, Nastaran Primary Care Unavailable Carmen Lugo Attending Unavailable Mago, Nastaran Referring Unavailable Mago, Nastaran Primary Care Unavailable Iesha Lo Attending Unavailable Renetta Cha Attending Unavailable Mago, Nastaran Primary Care Unavailable Charan DIRECTOR PHARMACOVIGILANCE, Jesika Attending Unavailable Mago, Nastaran Referring Unavailable [...] Attending Unavailable Akua, Car Referring Unavailable Akua, Car Primary Care Unavailable Renetta Cha Attending Unavailable [...] Provider Dr. Catrachito Mercedes MD Referring Provider Friend Dr. Domo ABBOTT Attending Provider Friend Dr. Domo ABBOTT Referring Provider Medications Current Medications Medication Drug Class(es) Dates Sig (Normalized) Sig (Original) acetaminophen 500 mg oral tablet (1 source) Start: 08-27-2023 End: 09-24-2023 Tylenol Extra Strength 500 mg oral tablet Dose : 500 mg = 1 tab(s), Oral, q4h, X 14 day(s), # 30 tab(s), 1 Refill(s), 09/24/23 11:51:00 AM EST, Pharmacy: [facility] #[id number], 160, cm, 08/27/23 10:15:00 EST, Height, kg, [...] day(s), # 12 tab(s), 0 Refill(s), Pharmacy: [facility] #[id number], Postoperative pain, 160, cm, 08/27/23 10:15:00 EST, [...] AM EST, Pharmacy: [facility] #[id number], 160, cm, 08/27/23 10:15:00 EST, Height, kg, [...] AT BEDTIME May 11, 2025 12:00am Mv-Mins 79-Pwcu-Xybno No.1-Dha (Pnv-Rome) 28-1-300 mg capsule (11 sources) Start: 01-26-2025 Mv-Mins 85-Wpst-Yllec No.1-Dha (Pnv-Rome) 28-1-300 mg capsule Active NMA PO January [...] for five day and then one tab. Prenat.Vits,Mario,Bni-Bngz-Ixo ic (10 sources) Start: 10-22-2021 take 1 tablet by mouth once daily Prenat.Vits,Mario,Qgm-Wotg-Zcklb Active 1 TABLET PO DAILY October 22, 2021 9:52am Start: 10-22-2021 take 1 tablet by damon th once daily Prenat.Vits,Mario,Tln-Shxn-Cgthw Active 1 TABLET PO DAILY October 22, 2021 12:00am Start: 10-22-2021 take 1 tablet by damon th once daily Prenat.Vits,Mario,Pcr-Ksbq-Qcotf Active 1 TABLET PO DAILY October 22, 2021 1:00am 1-VCEY-SITEM ACID-OM3 ORAL (20 sources) Start: 12-07-2019 take 1 capsule by mouth once daily 2-UYWR-EEOGP ACID-OM3 ORAL Take 1 capsule by mouth [...] PO July 12, 2024 1:00am chorionic gonadotropin 08954 unt/ml injectable solution (15 sources) Gonadotropin Start: 11-07-2024 End: 11-22-2024 inject [id number] [IU] by subcutaneous injection once chorionic gonadotropin (Pregnyl) 10,000 unit injection Indications: Female infertility Reconstitute according to instructions and inject 10,000 units (1 mL) under the skin as a one time dose, as directed per provider for trigger. 1 each 11/08/2024 11/22/2024 Discontinued (Therapy completed) Start: 08-18-2024 End: 10-11-2024 inject 14507 [IU] by subcutaneous injection once chorionic gonadotropin [...] 07, 2023 1:00am September 08, 2023 1:04am Rome 5-Hec-Tbr-Fish Oil (12 sources) Start: 07-12-2024 End: 01-26-2025 [place] 4-Bsr-Erh-Fish Oil (Fish Oil) 300-1,000 mg capsule Discontinued 1 NMA PO daily July 12, 2024 1:00am January 26, 2025 1:04pm Start: 07-12-2024 [place] 3-Dha-Ep a-Fish Oil (Fish Oil) 300-1,000 mg [...] AM EST, Pharmacy: [facility] #[id number], 160, cm, 08/27/23 10:15:00 EST, Height, kg, [...] to administer Follistim 1 each 11/08/2024 Active Prenat.Vits,Mario,Phy-Kzfo-Wvr ic tablet (12 sources) Start: 10-22-2021 End: 01-26-2025 Prenat.Vits,Mario,Yvx-Dilf-Vxk ic tablet Discontinued 1 {tbl} PO DAILY October 22, 2021 1:00am January 26, 2025 1:05pm Start: 10-22-2021 Prenat.Vits,Ca l,Ggv-Htsx-Enits tablet Active 1 {tbl} PO DAILY October [...] Test Name Value Interpretation Reference Range Facility [id number] 05-10-2025 B2 Glyco I IgG Ab <9 Normal 0-20 [facility] Comment on above: Performed By: #### A 1C, 169087, 274328, [id number] #### [facility] [address] [place] [address] B2 Glyco I IgM Ab <9 Normal 0-32 [facility] Comment on above: Result Comment: Perf ormed At: [facility] [address] [id number] Quentin Coburn PhD Ph:[phone] Performed By: #### A 1C, 701550, 394872, 349890 #### [facility] [address] [place] [address] CARDIGon 05-10-2025 Cardiolipin IgG <9 Normal 0-14 [facility] Comment on above: Result Comment: Nega tive: <15 Indeterminate: 15 - 20 Low-Med Positive: >20 - 80 High Positive: >80 Performed At: [address] [id number] Quentin Coburn PhD Ph:[phone] Performed By: #### A 1C, 711134, 800312, 727546 #### [address] [address] CARDIMon 05-10-2025 Cardiolipin IgM <9 Normal 0-12 [facility] Comment on above: Result Comment: Nega tive: <13 Indeterminate: 13 - 20 Low-Med Positive: >20 - 80 High Positive: >80 Performed At: [place] [id number] [place], [place] [id number] Quentin Coburn PhD Ph:[phone] Performed By: #### A 1C, 334888, 648815, 303967 #### [address] [address] A1Con 05-08-2025 Glucose [Mass/Vol] 111 mg/dL Normal [facility] Comment on above: Result Comment: Isabelle mated Average Glucose calculated by equation ((28.7xA1C)-46.7) Estimated average glucose (eAG) is a calculated value from Hemoglobin A1C and is tax representative of the average blood glucose level in the last 2-3 month period. Normal range: less than 114 mg/dL Performed By: #### A 1C, 547732, 752067, 399418 #### [address] [address] HbA1c (Bld) [Mass fraction] 5.5 % Normal 4.0-6.0 [facility] Comment on above: Performed By: #### A 1C, 362744, 107685, 344013 #### [address] [address] Progress Noteon 05-08-2025 Director Of Physical Education Authentication Interface Message Text [facility] MATERNAL MEDICINE - at [address] [place] OFFICE VISIT NOTE The concluding Summary Communication to Senior Storage Engineer is at the end of this office [...] a. Ongoing Care with: Dr. Leach. b. [facility] co-management visits scheduled with [facility] imaging visits. c. She is transferring her gastroenterology care to [place] [facility] on 05/10/2025 and will share this [...] and discontinuation of metformin during . 4. [facility] follow-up ultrasounds scheduled: She has echocardiography with ultrasound scheduled on 05/18/2025 and subsequent to that ultrasound for interval growth assessment at 28/32/36 weeks with comanagement with our DEDICATED DRIVER. 5. Antepartum Testing: Weekly NST in the office at 36 weeks will be appropriate. 6. Delivery-planned at [place]: As per standard obstetric practice and anticipate a term vaginal delivery at 39+0 weeks +3 days for scheduling purpos (more content not included)... Normal [facility] - Chemistry and C hemistry - challengeOrdered By: Carmen Lugo on 05-01-2025 Glucose Ql (U) Negative [facility] - UrinalysisOrder ed By: Carmen Lugo on 05-01-2025 Protein Ql (U) Negative [facility] Irrigation Technician Office Visit Reporton 05-01-2025 Irrigation Technician Office Visit Report [facility] [address], [address] [place] [address] OFFICE VISIT Date of Service: 05/01/25 MR#: [id number] Acct: [id number] Name: MARIXA AMOS Rep #: [id number] : 1995 Provider: Dr. 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 Normal [facility] - Chemistry and C hemistry - challengeOrdered By: Iesha Lo on 04-06-2025 Glucose Ql (U) Negative [facility] - UrinalysisOrder ed By: Iesha Lo on 04-06-2025 Protein Ql (U) Negative [facility] Irrigation Technician Office Visit Reporton 04-06-2025 Irrigation Technician Office Visit Report [facility] [address], [address] [place] [address] OFFICE VISIT Date of Service: 04/06/25 MR#: [id number] Acct: [id number] Name: MARIXA AMOS Rep #: [id number] : 1995 Provider: STEFANIE Figueroa ams Age/Sex: 29/F Location: [facility] Status: Signed Intake Vital Signs 02/06/25 08:17 03/09/25 11:36 04/06/25 13:00 Height 5 ft 3 in 5 ft 3 in 5 ft 3 in Weight: 191 lb 4 oz 194 lb 9 oz BMI 33.8 34.4 BP 129/85 H 138/79 H Intake Visit Reasons: 17 wk ob *IVF Chief Complaint: 17wk OB Personal Development Educator Required: No Is patient in pain?: No [...] mg-folate no.1 1 mg-dha 300 mg capsule (PNV-Rome) ondansetron 4 mg disintegrating 4 mg PO [...] 3-4 times per week duration: 45-60 minutes/day acthy/buddhist: None seatbelt use: always do you feel safe at home: Yes 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, [address] Erythrocyte Sed Rateon 03-10 SED RATE 25 mm/hr Normal 0-30 [facility] Comment on above: Performed By: #### L 101.9900, L501.6710 ####[facility] [address] [place], [place], [id number] Erythrocyte sedimentation ra teOrdered By: Domo Weaver on 03-10-2025 ESR (Bld) [Velocity] 25 mm/h 0-30 [facility] Ferritinon 03-10-2025 Ferritin [Mass/Vol] 61 ng/mL Normal 22-378 [facility] Comment on above: Performed By: #### L 503.0106, L503.6550, L503.6030 ####[facility] [address] [place], [place], [address] Iron measurement (mass/mass) Ordered By: Carmen Lugo on 03-10-2025 Iron (Unsp spec) [Mass/Mass] 102 ug/dL 50-170 [facility] Iron+Iron Binding Capacityon 03-10-2025 Iron [Mass/Vol] 102 ug/dL Normal 50-170 [facility] Comment on above: Performed By: #### L 503.0106, L503.6550, L503.6030 ####[facility] [address] [place], [place], [address] IRON SATURATION 29.0 Normal 13-59 [facility] Comment on above: Performed By: #### L 503.0106, L503.6550, L503.6030 ####[facility] [address] [place], [address] TIBC 353 ug/dL Normal 250-450 [facility] Comment on above: Performed By: #### L 503.0106, L503.6550, L503.6030 ####[facility] [address] [place], [address] UIBC 251 ug/dL Normal 228-428 [facility] Comment on above: Performed By: #### L 503.0106, L503.6550, L503.6030 ####[facility] [address] [place], [address] No Panel InformationOrdered By: Carmen Lugo on 03-10-2025 Unsaturated Iron Binding Capacity 251 ug/dL 228-428 [facility] Serum or plasma C reactive p rotein measurement (mass/volume)Ordered By: Domo Weaver on 03-10-2025 CRP [Mass/Vol] 8.03 mg/L High 0.0-3.0 [facility] Serum or plasma ferritin guerita surement (mass/volume)Ordered By: Carmen Lugo on 03-10-2025 Ferritin [Mass/Vol] 61 ng/mL 22-378 [facility] Serum or plasma iron saturat ion measurement (mass fraction)Ordered By: Carmen Lugo on 03-10-2025 Iron saturation [Mass fraction] 29.0 % 13-59 [facility] Vitamin B12on 03-10-2025 Cobalamin (Vitamin B12) [Mass/Vol] 614 pg/mL Normal 180-914 [facility] Comment on above: Performed By: #### L 503.0106, L503.6550, L503.6030 ####[facility] [address] [place], [address] Vitamin B12 ser/plasOrdered By: Carmen Lugo on 03-10-2025 Cobalamin (Vitamin B12) [Mass/Vol] 614 pg/mL 180-914 [facility] - Chemistry and C hemistry - challengeOrdered By: Carmen Lugo on 03-09-2025 Glucose Ql (U) Negative [facility] - UrinalysisOrder ed By: Carmen Lugo on 03-09-2025 Protein Ql (U) Negative [facility] Irrigation Technician Office Visit Reporton 03-09-2025 Irrigation Technician Office Visit Report [facility] [address], [address] [place] [address] OFFICE VISIT Date of Service: 03/09/25 MR#: [id number] Acct: [id number] Name: MARIXA AMOS Rep #: [id number] : 1995 Provider: Dr. 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 Date Name GA/Weeks Outcome Route Bth Weight Infant Gen Labor Lgth Anesthesia Del [facility] Provider FOB Unknown 07/2023-Julio 19 still Male [...] -???-???-???-???-???-??? -???-???-???-? (more content not included)... Normal [facility] Irrigation Technician Office Visit Reporton 02-23-2025 Irrigation Technician Office Visit Report [facility] [address], [address] [place] [address] OFFICE VISIT Date of Service: 02/23/25 MR#: [id number] Acct: [id number] Name: MARIXA AMOS Rep #: [id number] : 1995 Provider: Dr. Marcia Lawson DO Age/Sex: 29/F Location: [facility] Status: Signed Intake Vital Signs 02/06/25 08:17 02/23/25 11:00 02/23/25 11:01 Height 5 ft 3 in 5 ft 3 in 5 ft 3 in Weight: 186 lb 2 oz BMI 32.9 BP 135/86 H Intake Visit Reasons: Heart beat Check *IVF Personal Development Educator Required: No Is patient in pain?: No [...] mg-folate no.1 1 mg-dha 300 mg capsule (PNV-Rome) prednisone 10 mg tablet 10 mg PO [...] 3-4 times per week duration: 45-60 minutes/day cathy/buddhist: None seatbelt use: always do you feel safe at home: Yes 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 -???-??? (more content not included)... Normal [facility] L3410.9992on 02-16-2025 [facility] Misc. COMMENT Normal . [facility] Comment on above: Order Comment: 83180 4Stelara levels Result Comment: Test Ordered: 225165 Ustekinumab Drug + Antibody Ustekinumab 3.9 ug/mL [...] Batres et al. Clin Gastroenterol Hepatol 2017;15: 4196-3820. 4. Tessa MORA et al. Br J Dermatol;2015:173;855-857. 5. Grover H, et al. PLOS ONE DOI;10:1371/journal.pone.3918323. 6. Allan L et al. Br J Dermatol 2014;170:261-273. These tests were developed and their performance characteristics determined by [facility]. They have not been cleared or approved by the Food and Drug Administration. However, both drug and anti-drug antibody assays have been developed and validated in accordance with FDA Guidance for Industry documents: Bioanalytical Method Validation (2013) and Assay Development and Validation for Immunogenicity Testing of Therapeutic Protein Products (2016). Performed at: [facility] [address] [place] [id number] Human Geography Instructor: Gregg Roberto MD, Phone: [phone] Performed at: [address] [id number] Human Geography Instructor: Almas Saavedra PhD, Phone: [phone] Performed By: #### L 500.4050, L300.3900, L100.0100, L101.9900, L3410.9992, L501.6710 ####[facility] [address] [place], [place], [address] Chlamydia/GC ALEKSEY aptimaon CHLAMY,NUC ACID Negative Normal Negative [facility] Comment on above: Performed By: #### M 100.2200, L7000.1800 #### [facility] [address] [place], [address] GC BY NUC ACID Negative Normal Negative [facility] Comment on above: Result Comment: Perf ormed at: =[address] [id number] Human Geography Instructor: Rose Haney MD, Phone: [phone] Performed By: #### M 100.2200, L7000.1800 #### [facility] [address] [place], [place], [id number] Urine Cultureon 02-07-2025 [facility] Culture exhibits no growth. Normal [facility] Comment on above: Performed By: #### M 100.2200, L7000.1800 #### [facility] [address] [place], [address] Absolute lymphocyte countOrd ered By: Carmen Zepedagerardo on 02-06-2025 Lymphocytes Auto (Unsp spec) [#/Vol] 1.57 10*3/uL 0.83-4.51 [facility] Absolute neutrophil countOrd ered By: Carmen Morrowcalvin on 02-06-2025 Neutrophils (Bld) [#/Vol] 9.8 10*3/uL High 2.0-7.7 [facility] Automated lymphocyte count a s percentage of total leukocytesOrdered By: Carmen Morrwocalvin on 02-06-2025 Lymphocytes/100 WBC Auto (Unsp spec) 12.6 % Low 19-41 [facility] Basophil percentageOrdered B y: Carmen Lugo on 02-06-2025 Basophils/100 WBC (Bld) 0.4 % 0-1 [facility] CBC W/Diff, Automatedon 01-28-2024 PLT EST A Normal ADEQ [facility] Comment on above: Performed By: #### L 501.9985, L3890.6006, L3890.6102, L3890.6301, BTS, L100.0100, L509.4006, L509.8002 ####[facility] [address] [place], [place], [id number] RED CELL MORPH NORM C+C Normal NORM C C [facility] Comment on above: Performed By: #### L 501.9985, L3890.6006, L3890.6102, L3890.6301, BTS, L100.0100, L509.4006, L509.8002 ####[facility] [address] [place], [address] Chlamydia trachomatis rRNA d etection by probe and target amplification methodOrdered By: Carmen Morrowcalvin on 02-06-2025 C. trachomatis rRNA ALEKSEY+probe Ql (Unsp spec) Negative Negative [facility] Eosinophil percentageOrdered By: Carmen Morrowcalvin on 02-06-2025 Eosinophils/100 WBC (Bld) 1.7 % 0-5 [facility] Erythrocyte distribution wid th ratioOrdered By: Carmen Morrowcalvin on 02-06-2025 Erythrocyte distribution width (RBC) [Ratio] 13.1 % 11.6-14.6 [facility] Erythrocyte distribution wid th standard deviationOrdered By: Carmen Morrowcalvin on 02-06-2025 Erythrocyte distribution width (RBC) [Ratio] 43.2 fl 35.1-43.9 [facility] Erythrocyte morphology asses smentOrdered By: Carmen Manfred on 02-06-2025 RBC morphology finding Nom (Bld) NORM C+C NORMAL NORM C&C [facility] HIVon 02-06-2025 HIV Non-Reactive Normal Nonreactive [facility] Comment on above: Result Comment: Non- Reactive Reactive Repeatedly reactive samples must be confirmed according to CDC recommended confirmatory algorithms. The subresults for either HIVAG or AHIV can be used as an aid in the selection of the confirmation algorithm for reactive samples. Send out specimens with Reactive results to [facility] for confirmation. Order the HIV antibody detection and differentiation: lc#[id number] Performed By: #### L 501.9985, L3890.6006, L3890.6102, L3890.6301, BTS, L100.0100, L509.4006, L509.8002 ####[facility] [address] [place], [address] Hematocrit Auto (Bld) [Volum e fraction]Ordered By: Carmen Lugo on 02-06-2025 Hematocrit (Bld) [Volume fraction] 34.7 % Low 37-47 [facility] Hemoglobin A1con 02-06-2025 HbA1c (Bld) [Mass fraction] 5.5 % Normal <=5.6 [facility] Comment on above: Result Comment: Norm al < 5.7 % Prediabetic 5.7 - 6.4 % Diabetic >or= 6.5 % Please note range changes. Performed By: #### L 501.9985, L3890.6006, L3890.6102, L3890.6301, BTS, L100.0100, L509.4006, L509.8002 ####[facility] [address] [place], [place], [id number] Hemoglobin A1c percentageOrd ered By: Carmen Lugo on 02-06-2025 HbA1c (Bld) [Mass fraction] 5.5 % <5.7 [facility] Comment on above: Normal < 5.7 % Predi abetic 5.7 - 6.4 % Diabetic >or= 6.5 % Please note range changes. Hemoglobin measurementOrdere d By: Carmen Lugo on 02-06-2025 Hemoglobin (Bld) [Mass/Vol] 11.5 g/dL Low 12.0-15.0 [facility] Hepatitis C Antibodyon 02-06 Hepatitis C Ab Non-Reactive Normal Nonreactive [facility] Comment on above: Result Comment: Reac tive: Presumptive evidence of antibodies to HCV. Follow CDC recommendations for supplemental testing. Non-Reactive: Antibodies to HCV were not detected; does not exclude the possibility of exposure to HCV Reactive Results are presumptive evidence of antibodies to HCV. Follow CDC recommendations for supplemental testing. Order confirmation testing: HCV Quant by PCR testing - HCVPCR #[id number] Non Reactive: < 0.8 Equivocal: >/= 0.8 to < 1.0 Reactive: >/= 1.0 The CDC requires that a reactive/equivocal HCV antibody result be sent out for confirmation. HCV Quant by PCR testing. Performed By: #### L 501.9985, L3890.6006, L3890.6102, L3890.6301, BTS, L100.0100, L509.4006, L509.8002 ####[facility] [address] [place], [address] Immature granulocytes/100 WB C Auto (Bld)Ordered By: Carmen Lugo on 02-06-2025 Immature granulocytes/100 WBC (Bld) 0.600 % 0.0-0.9 [facility] Comment on above: IG% - Immature Granu locytes (promyelocytes, myelocytes and metamyelocytes) > 1% indicates that a LEFT SHIFT is Present. L3890.6102on 02-06-2025 HEP B Surf Ag Non-Reactive Normal Nonreactive [facility] Comment on above: Result Comment: Reac tive: Presumptive evidence of HBV. Repeatedly reactive samples must be confirmed using a neutralization test ([employer] HBsAg Confirmatory Test) Non-Reactive: HBsAg not detected; does not exclude the possibility of exposure to HBV Performed By: #### L 501.9985, L3890.6006, L3890.6102, L3890.6301, BTS, L100.0100, L509.4006, L509.8002 ####[facility] [address] [place], [place], [address] L509.4006on 02-06-2025 Rubella IgG REAC Normal Nonreactive [facility] Comment on above: Result Comment: Anti body Result: Interpretation Non-Reactive: Non-Immune Reactive: Immune The following results were obtained with the [employer] Rubella IgG assay. Results from assays of other manufacturers cannot be used interchangeably. Performed By: #### L 501.9985, L3890.6006, L3890.6102, L3890.6301, BTS, L100.0100, L509.4006, L509.8002 ####[facility] [address] [place], [place], [id number] Laboratory - Microbiology an d Antimicrobial susceptibilityOrdered By: Carmen Lugo on 02-06-2025 HBV surface Ag Ql (S) Non-Reactive Nonreactive [facility] Comment on above: Reactive: Presumptiv e evidence of HBV. Repeatedly reactive samples must be confirmed using a neutralization test ([employer] HBsAg Confirmatory Test)Non-Reactive: HBsAg not detected; does not exclude the possibility of exposure to HBV MCV (mean corpuscular volume ) determinationOrdered By: Carmen Lugo on 02-06-2025 MCV (RBC) [Entitic vol] 91.3 fL 81-99 [facility] Mean corpuscular hemoglobin (MCH) determinationOrdered By: Carmen Lugo on 02-06-2025 MCH (RBC) [Entitic mass] 30.3 pg 27.0-32.0 [facility] Mean corpuscular hemoglobin concentration (MCHC) determinationOrdered By: Carmen Lugo on 02-06-2025 MCHC (RBC) [Mass/Vol] 33.1 g/dL 32-36 [facility] Mean platelet volume determi nationOrdered By: Carmen Lugo on 02-06-2025 Platelet mean volume (Bld) [Entitic vol] 11.4 fL 6.2-12.0 [facility] Monocyte percentageOrdered B y: Carmen Lugo on 02-06-2025 Monocytes/100 WBC (Bld) 5.8 % 0-10 [facility] Neisseria gonorrhoeae nuclei c acid detection by amplified probe techniqueOrdered By: Carmen Lugo on 02-06-2025 N. gonorrhoeae DNA ALEKSEY+probe Ql (Unsp spec) Negative Negative [facility] Comment on above: Performed at: =G - L [address] [id number] Director: Rose Haney MD, Phone: [phone] Neutrophil percentageOrdered By: Carmen Lugo on 02-06-2025 Neutrophils/100 WBC (Bld) 78.9 % High 47-70 [facility] No Panel InformationOrdered By: Carmen Lugo on 02-06-2025 HIV (1&2) Antibody Non-Reactive Nonreactive [facility] Comment on above: Non-ReactiveReactive Repeatedly reactive samples must be confirmed according to CDC recommended confirmatory algorithms. The subresults for either HIVAG or AHIV can be used as an aid in the selection of the confirmation algorithm for reactive samples.Send out specimens with Reactive results to [facility] for confirmation.Order the HIV antibody detection and differentiation: #[id number] Nucleated red blood cell per centageOrdered By: Carmen Lugo on 02-06-2025 Nucleated RBC/100 WBC (Bld) [Ratio] 0 % 0-5 [facility] Irrigation Technician Office Visit Reporton 02-06-2025 Irrigation Technician Office Visit Report [facility] [address] [place] [address], [address] [place] [address] OFFICE VISIT Date of Service: 02/06/25 MR#: [id number] Acct: [id number] Name: MARIXA AMOS Rep #: [id number] : 1995 Provider: STEFANIE Figueroa ams Age/Sex: 29/F Location: [facility] Status: Signed Intake Vital Signs 07/12/24 08:32 02/02/25 15:25 02/06/25 08:17 Height 5 ft 3 in 5 ft 3 in 5 ft 3 in Weight: 185 lb 8 oz BMI 32.8 BP 118/70 Intake Visit Reasons: *EST* NOB IVF 12/26, GIL 09/13/25 Personal Development Educator Required: No Is patient in pain?: No [...] mg-folate no.1 1 mg-dha 300 mg capsule (PNV-[place]) prednisone 10 mg tablet 10 mg PO [...] 3-4 times per week duration: 45-60 minutes/day cathy/buddhist: None seatbelt use: always do you feel safe at home: Yes 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 Normal [facility] Platelet countOrdered By: Uziel Lugo on 02-06-2025 Platelets (Bld) [#/Vol] 319 10*3/uL 150-450 [facility] Platelet estimateOrdered By: Carmen Lugo on 02-06-2025 Platelets LM Ql (Bld) A ADEQ [facility] RBC Auto (Bld) [#/Vol]Ordere d By: Carmen Lugo on 02-06-2025 RBC (Bld) [#/Vol] 3.80 10*6/uL Low 4.2-5.4 [facility] Syphilis Antibodieson 2024 Syphilis Abs Non-Reactive Normal Nonreactive [facility] Comment on above: Performed By: #### L 501.9985, L3890.6006, L3890.6102, L3890.6301, BTS, L100.0100, L509.4006, L509.8002 ####[facility] [address] [place], [place], [id number] Type AND Screenon 02-06-2025 ABO and Rh group Nom (Bld) Blood group B Rh(D) positive Normal [facility] Comment on above: Order Comment: PN Performed By: #### L 501.9985, L3890.6006, L3890.6102, L3890.6301, BTS, L100.0100, L509.4006, L509.8002 ####[facility] [address] [place], [place], [id number] Urine cultureOrdered By: Torin Lugo on 02-06-2025 Bacteria identified Cx Nom (U) Culture exhibits no growth. [facility] White blood cell (WBC) count Ordered By: Carmen Lugo on 02-06-2025 WBC (Bld) [#/Vol] 12.5 10*3/uL High 4.4-11.0 [facility] Absolute lymphocyte countOrd ered By: Domo Weaver on 02-02-2025 Lymphocytes Auto (Unsp spec) [#/Vol] 1.71 10*3/uL 0.83-4.51 [facility] Absolute neutrophil countOrd ered By: Domo Weaver on 02-02-2025 Neutrophils (Bld) [#/Vol] 7.6 10*3/uL 2.0-7.7 [facility] Anion gap in Serum or Plasma Ordered By: Domo Weaver on 02-02-2025 Anion gap [Moles/Vol] 13 mmol/L 5-15 [facility] Automated lymphocyte count a s percentage of total leukocytesOrdered By: Domo Weaver on 02-02-2025 Lymphocytes/100 WBC Auto (Unsp spec) 17.3 % Low 19-41 [facility] BUN/creatinine ratioOrdered By: Domo Weaver on 02-02-2025 Urea nitrogen/Creatinine [Mass ratio] 16.4 mg/mg 10-20 [facility] Basophil percentageOrdered B y: Domo Weaver on 02-02-2025 Basophils/100 WBC (Bld) 0.4 % 0-1 [facility] Bilirubin, totalOrdered By: Domo Friend on 02-02-2025 Bilirubin [Mass/Vol] mg/dL 0.00-1.30 [facility] CBC W/Diff, Automatedon Absolute Lymph 1.71 X10 3/uL Normal 0.83-4.51 [facility] Comment on above: Performed By: #### L 500.4050, L300.3900, L100.0100, L101.9900, L3410.9992, L501.6710 ####[facility] [address] [place], [address] Absolute Neut 7.6 X10 3/uL Normal 2.0-7.7 [facility] Comment on above: Performed By: #### L 500.4050, L300.3900, L100.0100, L101.9900, L3410.9992, L501.6710 ####[facility] [address] [place], [address] Basophils/100 WBC (Bld) 0.4 % Normal 0-1 [facility] Comment on above: Performed By: #### L 500.4050, L300.3900, L100.0100, L101.9900, L3410.9992, L501.6710 ####[facility] [address] [place], [address] Eosinophils/100 WBC (Bld) 0.7 % Normal 0-5 [facility] Comment on above: Performed By: #### L 500.4050, L300.3900, L100.0100, L101.9900, L3410.9992, L501.6710 ####[facility] [address] [place], [address] Erythrocyte distribution width (RBC) [Ratio] 12.7 % Normal 11.6-14.6 [facility] Comment on above: Performed By: #### L 500.4050, L300.3900, L100.0100, L101.9900, L3410.9992, L501.6710 ####[facility] [address] [place], [address] Hematocrit (Bld) [Volume fraction] 33.6 % Low 37-47 [facility] Comment on above: Performed By: #### L 500.4050, L300.3900, L100.0100, L101.9900, L3410.9992, L501.6710 ####[facility] [address] [place], [address] Hemoglobin (Bld) [Mass/Vol] 11.2 g/dL Low 12.0-15.0 [facility] Comment on above: Performed By: #### L 500.4050, L300.3900, L100.0100, L101.9900, L3410.9992, L501.6710 ####[facility] [address] [place], [address] IG% 0.500 Normal 0.0-0.9 [facility] Comment on above: Result Comment: IG% - Immature Granulocytes (promyelocytes, myelocytes and metamyelocytes) > 1% indicates that a LEFT SHIFT is Present. Performed By: #### L 500.4050, L300.3900, L100.0100, L101.9900, L3410.9992, L501.6710 ####[facility] [address] [place], [address] Lymphocytes/100 WBC (Bld) 17.3 % Low 19-41 [facility] Comment on above: Performed By: #### L 500.4050, L300.3900, L100.0100, L101.9900, L3410.9992, L501.6710 ####[facility] [address] [place], [address] MCH (RBC) [Entitic mass] 29.9 pg Normal 27.0-32.0 [facility] Comment on above: Performed By: #### L 500.4050, L300.3900, L100.0100, L101.9900, L3410.9992, L501.6710 ####[facility] [address] [place], [address] MCHC (RBC) [Mass/Vol] 33.3 g/dL Normal 32-36 [facility] Comment on above: Performed By: #### L 500.4050, L300.3900, L100.0100, L101.9900, L3410.9992, L501.6710 ####[facility] [address] [place], [address] MCV (RBC) [Entitic vol] 89.6 fL Normal 81-99 [facility] Comment on above: Performed By: #### L 500.4050, L300.3900, L100.0100, L101.9900, L3410.9992, L501.6710 ####[facility] [address] [place], [address] Monocytes/100 WBC (Bld) 4.5 % Normal 0-10 [facility] Comment on above: Performed By: #### L 500.4050, L300.3900, L100.0100, L101.9900, L3410.9992, L501.6710 ####[facility] [address] [place], [address] Neutrophils/100 WBC (Bld) 76.6 % High 47-70 [facility] Comment on above: Performed By: #### L 500.4050, L300.3900, L100.0100, L101.9900, L3410.9992, L501.6710 ####[facility] [address] [place], [address] Nucleated RBC (Bld) [#/Vol] 0 10*3/uL Normal 0-5 [facility] Comment on above: Performed By: #### L 500.4050, L300.3900, L100.0100, L101.9900, L3410.9992, L501.6710 ####[facility] [address] [place], [address] Platelet mean volume (Bld) [Entitic vol] 10.2 fL Normal 6.2-12.0 [facility] Comment on above: Performed By: #### L 500.4050, L300.3900, L100.0100, L101.9900, L3410.9992, L501.6710 ####[facility] [address] [place], [address] Platelets (Bld) [#/Vol] 388 10*3/uL Normal 150-450 [facility] Comment on above: Performed By: #### L 500.4050, L300.3900, L100.0100, L101.9900, L3410.9992, L501.6710 ####[facility] [address] [place], [address] RBC (Bld) [#/Vol] 3.75 10*6/uL Low 4.2-5.4 [facility] Comment on above: Performed By: #### L 500.4050, L300.3900, L100.0100, L101.9900, L3410.9992, L501.6710 ####[facility] [address] [place], [address] RDW SD 41.8 fl Normal 35.1-43.9 [facility] Comment on above: Performed By: #### L 500.4050, L300.3900, L100.0100, L101.9900, L3410.9992, L501.6710 ####[facility] [address] [place], [address] WBC (Bld) [#/Vol] 9.9 10*3/uL Normal 4.4-11.0 [facility] Comment on above: Performed By: #### L 500.4050, L300.3900, L100.0100, L101.9900, L3410.9992, L501.6710 ####[facility] [address] [place], [address] CRPon 02-02-2025 C-REACTIVE PROT 11.70 mg/L High 0.0-3.0 [facility] Comment on above: Performed By: #### L 500.4050, L300.3900, L100.0100, L101.9900, L3410.9992, L501.6710 ####[facility] [address] [place], [address] Carbon dioxide, total [Moles /volume] in Central venous bloodOrdered By: Domo Weaver on 02-02-2025 CO2 [Moles/Vol] 18.9 mmol/L Low 21.0-32.0 [facility] Chloride assayOrdered By: Ra clarita Weaver on 02-02-2025 Chloride [Moles/Vol] 103 mmol/L 98-108 [facility] Comprehensive Metabolic Prof ilon 02-02-2025 Albumin [Mass/Vol] 4.3 g/dL Normal 3.5-5.0 [facility] Comment on above: Performed By: #### L 500.4050, L300.3900, L100.0100, L101.9900, L3410.9992, L501.6710 ####[facility] [address] [place], [address] Albumin/Globulin [Mass ratio] 1.4 {ratio} Normal 0.9-2.4 [facility] Comment on above: Performed By: #### L 500.4050, L300.3900, L100.0100, L101.9900, L3410.9992, L501.6710 ####[facility] [address] [place], [address] ALK PHOS 64 U/L Normal 35-104 [facility] Comment on above: Performed By: #### L 500.4050, L300.3900, L100.0100, L101.9900, L3410.9992, L501.6710 ####[facility] [address] [place], [address] ALT [Catalytic activity/Vol] 22 U/L Normal <=34 [facility] Comment on above: Performed By: #### L 500.4050, L300.3900, L100.0100, L101.9900, L3410.9992, L501.6710 ####[facility] [address] [place], [address] AST [Catalytic activity/Vol] 14 U/L Normal <=31 [facility] Comment on above: Performed By: #### L 500.4050, L300.3900, L100.0100, L101.9900, L3410.9992, L501.6710 ####[facility] [address] [place], [address] BUN/CRE 16.4 RATIO Normal 10-20 [facility] Comment on above: Performed By: #### L 500.4050, L300.3900, L100.0100, L101.9900, L3410.9992, L501.6710 ####[facility] [address] [place], [address] Calcium [Mass/Vol] 9.2 mg/dL Normal 7.6-11.0 [facility] Comment on above: Performed By: #### L 500.4050, L300.3900, L100.0100, L101.9900, L3410.9992, L501.6710 ####[facility] [address] [place], [address] Chloride [Moles/Vol] 103 mmol/L Normal 98-108 [facility] Comment on above: Performed By: #### L 500.4050, L300.3900, L100.0100, L101.9900, L3410.9992, L501.6710 ####[facility] [address] [place], [address] CO2 [Moles/Vol] 18.9 mmol/L Low 21.0-32.0 [facility] Comment on above: Performed By: #### L 500.4050, L300.3900, L100.0100, L101.9900, L3410.9992, L501.6710 ####[facility] [address] [place], [address] Creatinine [Mass/Vol] 0.56 mg/dL Low 0.70-1.20 [facility] Comment on above: Performed By: #### L 500.4050, L300.3900, L100.0100, L101.9900, L3410.9992, L501.6710 ####[facility] [address] [place], [address] GAP 13 Normal 5-15 [facility] Comment on above: Performed By: #### L 500.4050, L300.3900, L100.0100, L101.9900, L3410.9992, L501.6710 ####[facility] [address] [place], [address] GFR/1.73 sq M.predicted among non-blacks MDRD (S/P/Bld) [Vol rate/Area] 126 mL/min/{1.73_m2} Normal >60 [facility] Comment on above: Result Comment: mL/m in/1.73m2 CKD-EPI Creatinine Equation (2020) Performed By: #### L 500.4050, L300.3900, L100.0100, L101.9900, L3410.9992, L501.6710 ####[facility] [address] [place], [address] Globulin (S) [Mass/Vol] 3.1 g/dL Normal 2.2-4.2 [facility] Comment on above: Performed By: #### L 500.4050, L300.3900, L100.0100, L101.9900, L3410.9992, L501.6710 ####[facility] [address] [place], [address] Glucose [Mass/Vol] 132 mg/dL High 70-99 [facility] Comment on above: Performed By: #### L 500.4050, L300.3900, L100.0100, L101.9900, L3410.9992, L501.6710 ####[facility] [address] [place], [address] Potassium [Moles/Vol] 3.9 mmol/L Normal 3.3-5.1 [facility] Comment on above: Performed By: #### L 500.4050, L300.3900, L100.0100, L101.9900, L3410.9992, L501.6710 ####[facility] [address] [place], [address] Sodium [Moles/Vol] 134 mmol/L Normal 133-145 [facility] Comment on above: Performed By: #### L 500.4050, L300.3900, L100.0100, L101.9900, L3410.9992, L501.6710 ####[facility] [address] [place], [address] T BILI < 0.15 Normal 0.00-1.30 [facility] Comment on above: Performed By: #### L 500.4050, L300.3900, L100.0100, L101.9900, L3410.9992, L501.6710 ####[facility] [address] [place], [address] T PROT 7.4 g/dL Normal 5.9-8.4 [facility] Comment on above: Performed By: #### L 500.4050, L300.3900, L100.0100, L101.9900, L3410.9992, L501.6710 ####[facility] [address] [place], [address] Urea nitrogen [Mass/Vol] 9 mg/dL Normal 4-19 [facility] Comment on above: Performed By: #### L 500.4050, L300.3900, L100.0100, L101.9900, L3410.9992, L501.6710 ####[facility] [address] [place], [address] Eosinophil percentageOrdered By: Domo Weaver on 02-02-2025 Eosinophils/100 WBC (Bld) 0.7 % 0-5 [facility] Erythrocyte Sed Rateon 02-02 SED RATE 28 mm/hr Normal 0-30 [facility] Comment on above: Performed By: #### L 500.4050, L300.3900, L100.0100, L101.9900, L3410.9992, L501.6710 ####[facility] [address] [place], [address] Erythrocyte distribution wid th ratioOrdered By: Domo Weaver on 02-02-2025 Erythrocyte distribution width (RBC) [Ratio] 12.7 % 11.6-14.6 [facility] Erythrocyte distribution wid th standard deviationOrdered By: Domo Weaver on 02-02-2025 Erythrocyte distribution width (RBC) [Ratio] 41.8 fl 35.1-43.9 [facility] Erythrocyte sedimentation ra teOrdered By: Domo Weaver on 02-02-2025 ESR (Bld) [Velocity] 28 mm/h 0-30 [facility] Glomerular filtration rate ( GFR) estimation/1.73 sq m using serum, plasma, or whole bOrdered By: Domo Weaver on 02-02-2025 GFR/1.73 sq M.predicted among non-blacks MDRD (S/P/Bld) [Vol rate/Area] 126 mL/min/{1.73_m2} >60 [facility] Comment on above: mL/min/1.73m2 CKD-EP I Creatinine Equation (2020) Hematocrit Auto (Bld) [Volum e fraction]Ordered By: Domo Weaver on 02-02-2025 Hematocrit (Bld) [Volume fraction] 33.6 % Low 37-47 [facility] Hemoglobin measurementOrdere d By: Domo Weaver on 02-02-2025 Hemoglobin (Bld) [Mass/Vol] 11.2 g/dL Low 12.0-15.0 [facility] Immature granulocytes/100 WB C Auto (Bld)Ordered By: Domo Weaver on 02-02-2025 Immature granulocytes/100 WBC (Bld) 0.500 % 0.0-0.9 [facility] Comment on above: IG% - Immature Granu locytes (promyelocytes, myelocytes and metamyelocytes) > 1% indicates that a LEFT SHIFT is Present. International normalized rat io (INR) calculationOrdered By: Domo Weaver on 02-02-2025 INR Coag (Bld) [Relative time] 0.9 {INR} [facility] Laboratory - Chemistry and C hemistry - challengeOrdered By: Domo Weaver on 02-02-2025 AST [Catalytic activity/Vol] 14 U/L <32 [facility] MCV (mean corpuscular volume ) determinationOrdered By: Domo Weaver on 02-02-2025 MCV (RBC) [Entitic vol] 89.6 fL 81-99 [facility] Mean corpuscular hemoglobin (MCH) determinationOrdered By: Domo Weaver on 02-02-2025 MCH (RBC) [Entitic mass] 29.9 pg 27.0-32.0 [facility] Mean corpuscular hemoglobin concentration (MCHC) determinationOrdered By: Domo Friend on 02-02-2025 MCHC (RBC) [Mass/Vol] 33.3 g/dL 32-36 [facility] Mean platelet volume determi nationOrdered By: Domo Friend on 02-02-2025 Platelet mean volume (Bld) [Entitic vol] 10.2 fL 6.2-12.0 [facility] Monocyte percentageOrdered B y: [facility] Friend on 02-02-2025 Monocytes/100 WBC (Bld) 4.5 % 0-10 [facility] Neutrophil percentageOrdered By: [facility] Friend on 02-02-2025 Neutrophils/100 WBC (Bld) 76.6 % High 47-70 [facility] Nucleated red blood cell per centageOrdered By: Domo Friend on 02-02-2025 Nucleated RBC/100 WBC (Bld) [Ratio] 0 % 0-5 [facility] Irrigation Technician Office Visit Reporton 02-02-2025 Irrigation Technician Office Visit Report [facility] [address], [facility] [address] [place] [address] OFFICE VISIT Date of Service: 02/02/25 MR#: [id number] Acct: [id number] Name: MARIXA AMOS Rep #: [id number] : 1995 Provider: STEFANIE coronel Age/Sex: 29/F Location: [facility] [place] Status: Signed Intake Vital Signs 01/25/25 14:45 02/02/25 15:25 Height 5 ft 3 in 5 ft 3 in Weight: 184 lb 8 oz 186 lb 4 oz BMI 32.6 33.0 BP 128/62 H 143/86 H Blood Pressure Location Rt brachial Position Sitting Intake Visit Reasons: fu early spotting per Personal Development Educator Required: No Is patient in pain?: No [...] mg-folate no.1 1 mg-dha 300 mg capsule (PNV-[place]) prednisone 10 mg tablet 10 mg PO QDAY 01/26/25 02/02/25 Hi story progesterone oil 75 mg IM QHS 01/26/25 02/02/25 His tory Post menopausal: No Patient : Yes : No [facility] Medical History Obesity (BMI 30.0-34.9) Other obesity [...] 3-4 times per week duration: 45-60 minutes/day cathy/buddhist: None seatbelt use: always do you feel safe at home: Yes 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 [place], [place], [id number] PT Coag (PPP) [Time] 12.2 s Normal 11.7-14.9 [facility] Comment on above: Performed By: #### L 500.4050, L300.3900, L100.0100, L101.9900, L3410.9992, L501.6710 ####[facility] [address] [place], [place], [id number] Prothrombin timeOrdered By: Domo Weaver on 02-02-2025 PT Coag (PPP) [Time] 12.2 s 11.7-14.9 [facility] RBC Auto (Bld) [#/Vol]Ordere d By: Domo Weaver on 02-02-2025 RBC (Bld) [#/Vol] 3.75 10*6/uL Low 4.2-5.4 [facility] Serum creatinine measurement (mass/volume)Ordered By: Domo Weaver on 02-02-2025 Creatinine [Mass/Vol] 0.56 mg/dL Low 0.70-1.20 [facility] Serum globulin measurementOr dered By: Domo Weaver on 02-02-2025 Globulin (S) [Mass/Vol] 3.1 g/dL 2.2-4.2 [facility] Serum glucose measurement (m ass/volume)Ordered By: Domo Weaver on 02-02-2025 Glucose [Mass/Vol] 132 mg/dL High 70-99 [facility] Serum or plasma C reactive p rotein measurement (mass/volume)Ordered By: Domo Weaver on 02-02-2025 CRP [Mass/Vol] 11.70 mg/L High 0.0-3.0 [facility] Serum or plasma alanine parisi otransferase (ALT) measurementOrdered By: Domo Weaver on 02-02-2025 ALT [Catalytic activity/Vol] 22 U/L <35 [facility] Serum or plasma albumin arielle urement (mass/volume)Ordered By: Domo Weaver on 02-02-2025 Albumin [Mass/Vol] 4.3 g/dL 3.5-5.0 [facility] Serum or plasma albumin/glob ulin mass ratioOrdered By: Domo Weaver on 02-02-2025 Albumin/Globulin [Mass ratio] 1.4 {ratio} 0.9-2.4 [facility] Serum or plasma alkaline marcelo sphatase measurementOrdered By: Domo Weaver on 02-02-2025 ALP [Catalytic activity/Vol] 64 U/L 35-104 [facility] Serum or plasma calcium arielle urement (mass/volume)Ordered By: Domo Weaver on 02-02-2025 Calcium [Mass/Vol] 9.2 mg/dL 7.6-11.0 [facility] Serum or plasma urea nitroge n measurement (mass/volume)Ordered By: Domo Weaver on 02-02-2025 Urea nitrogen [Mass/Vol] 9 mg/dL 4-19 [facility] Sodium levelOrdered By: Alisa Michelle on 02-02-2025 Sodium [Moles/Vol] 134 mmol/L 133-145 [facility] Total proteinOrdered By: Lai Weaver on 02-02-2025 Protein [Mass/Vol] 7.4 g/dL 5.9-8.4 [facility] White blood cell (WBC) count Ordered By: Domo Weaver on 02-02-2025 WBC (Bld) [#/Vol] 9.9 10*3/uL 4.4-11.0 [facility] Laboratory - Chemistry and C hemistry - challengeOrdered By: Carmen Lugo on 01-26-2025 HCG ( test) Ql (U) Positive [facility] Office Visit Reporton 2024 Office Visit Report [facility] [address] [place] [address] OFFICE VISIT Date of Service: 01/26/25 MR#: [id number] Acct: [id number] Patient: MARIXA AMOS Rep #: [id number] : 1995 Provider: Dr. Carmen dixon MD Age/Sex: 29/F Location: [facility] [place] Status: Signed Intake Vital Signs 07/12/24 08:32 01/25/25 14:45 Height 5 ft 3 in 5 ft 3 in Weight: 184 lb 8 oz BMI 32.6 BP 128/62 H Blood Pressure Location Rt brachial Position Sitting Intake Visit Reasons: Pre new ob, confirm preg, vitals Chief Complaint: Fertility consult Personal Development Educator Required: No Accompanied by: Is patient in [...] mg-folate no.1 1 mg-dha 300 mg capsule (PNV-[place]) prednisone 10 mg tablet 10 mg PO [...] Cosign Signature: Date (if applicable) CC: Normal [facility] OB TRANSVAGINALon 025 OB TRANSVAGINAL Interpreted by: [...] transvaginal evaluation for early dating. View: Sufficient [facility] Blood type and Indirect anti body screen panel (Bld)on 01-22-2025 ABO group Nom (Bld) B [facility] Blood group antibody screen Ql Negative [facility] D Ag Ql (Bld) Positive [facility] ABO group Nom (Bld) B [facility] Comment on above: Performed By: #### 2 [id number] #### MARIA E STEFFI ([id number]) [facility] ([facility] [facility] [place] [address] [place] [address] Blood group antibody screen Ql Negative [facility] Comment on above: Performed By: #### 2 243-4 #### MARIA E KAPADIA ([id number]) [facility] ([facility]) [address] [phone] D Ag Ql (Bld) Positive Normal [facility] Comment on above: Performed By: #### 2 243-4 #### MARIA E KAPDAIA ([id number]) [facility] ([facility]) [address] [place] [address] C. trachomatis and N. gonorr hoeae DNA ALEKSEY+probe Nom (Unsp spec)on 01-22-2025 C. trachomatis rRNA ALEKSEY+probe Ql (Unsp spec) Negative Normal Negative [facility] Comment on above: Order Comment: REF V ALUES FOLLICULAR PHASE 20-144 MID CYCLE 64-357 LUTEAL PHASE 56-214 POSTMENOPAUSE < 32 PREPUBERTY < 20 FEMALE 10-18Y 8-110 MALE 10-18Y < 20 ADULT MALE < 40 Performed By: #### 2 243-4 #### MARIA E KAPADIA ([id number]) [facility] ([facility]) [address] [place] [address] N. gonorrhoeae DNA Probe+sig amp Ql (Unsp spec) Negative Normal Negative [facility] Comment on above: Order Comment: REF V ALUES FOLLICULAR PHASE 20-144 MID CYCLE 64-357 LUTEAL PHASE 56-214 POSTMENOPAUSE < 32 PREPUBERTY < 20 FEMALE 10-18Y 8-110 MALE 10-18Y < 20 ADULT MALE < 40 Performed By: #### 2 243-4 #### MARIA E KAPADIA ([id number]) [facility] ([facility]) [address] [phone] CBC W Auto Differential pane l (Bld)on 01-22-2025 Basophils (Bld) [#/Vol] 0.04 10*3/uL [facility] Basophils/100 WBC (Bld) 0.5 % 0.0 - 2.0 % [facility] Eosinophils (Bld) [#/Vol] 0.07 10*3/uL [facility] Eosinophils/100 WBC (Bld) 0.8 % 0.0 - 6.0 % [facility] Erythrocyte distribution width (RBC) [Ratio] 12.7 % 11.5 - 14.5 % [facility] Hematocrit (Bld) [Volume fraction] 32.8 % Low 36.0 - 46.0 % [facility] Hemoglobin (Bld) [Mass/Vol] 11.1 g/dL Low 12.0 - 16.0 g/dL [facility] Immature granulocytes (Bld) [#/Vol] 0.05 10*3/uL [facility] Immature granulocytes/100 WBC (Bld) 0.6 % 0.0 - 0.9 % [facility] Comment on above: Immature Granulocyte Count (IG) includes promyelocytes, myelocytes and metamyelocytes but does not include bands. Percent differential counts (%) should be interpreted in the context of the absolute cell counts (cells/UL). Interpretation and review of laboratory results Abnormal [facility] Lymphocytes (Bld) [#/Vol] 1.19 10*3/uL Low [facility] Lymphocytes/100 WBC (Bld) 13.9 % 13.0 - 44.0 % [facility] MCH (RBC) [Entitic mass] 30.1 pg 26.0 - 34.0 pg [facility] MCHC (RBC) [Mass/Vol] 33.8 g/dL 32.0 - 36.0 g/dL [facility] MCV (RBC) [Entitic vol] 89 fL 80 - 100 fL [facility] Monocytes (Bld) [#/Vol] 0.34 10*3/uL [facility] Monocytes/100 WBC (Bld) 4 % 2.0 - 10.0 % [facility] Neutrophils (Bld) [#/Vol] 6.86 10*3/uL [facility] Comment on above: Percent differential counts (%) should be interpreted in the context of the absolute cell counts (cells/uL). Neutrophils/100 WBC (Bld) 80.2 % 40.0 - 80.0 % [facility] Nucleated RBC/100 WBC (Bld) [Ratio] 0 % [facility] Platelets (Bld) [#/Vol] 319 10*3/uL [facility] RBC (Bld) [#/Vol] 3.69 10*6/uL Low [facility] WBC (Bld) [#/Vol] 8.6 10*3/uL [facility] Basophils (Bld) [#/Vol] 0.04 x10*3/uL Normal 0.00-0.10 [facility] Comment on above: Performed By: #### 2 243-4 #### MARIA E KAPADIA ([id number]) [facility] ([facility]) [address] [place] [address] Basophils/100 WBC (Bld) 0.5 % Normal 0.0-2.0 [facility] Comment on above: Performed By: #### 2 243-4 #### MARIA E KAPADIA ([id number]) [facility] ([facility]) [address] [place] [address] Eosinophils (Bld) [#/Vol] 0.07 x10*3/uL Normal 0.00-0.70 [facility] Comment on above: Performed By: #### 2 243-4 #### MARIA E AKPADIA ([id number]) [facility] ([facility]) [address] [place] [address] Eosinophils/100 WBC (Bld) 0.8 % Normal 0.0-6.0 [facility] Comment on above: Performed By: #### 2 243-4 #### MARIA E KAPADIA ([id number]) [facility] ([facility]) [address] [place] [address] Erythrocyte distribution width (RBC) [Ratio] 12.7 % Normal 11.5-14.5 [facility] Comment on above: Performed By: #### 2 243-4 #### MARIA E KAPADIA ([id number]) [facility] ([facility]) [address] [place] [address] Hematocrit (Bld) [Volume fraction] 32.8 % Low 36.0-46.0 [facility] Comment on above: Performed By: #### 2 243-4 #### MARIA E KAPADIA ([id number]) [facility] ([facility]) [address] [place] [address] Hemoglobin (Bld) [Mass/Vol] 11.1 g/dL Low 12.0-16.0 [facility] Comment on above: Performed By: #### 2 243-4 #### MARIA E KAPADIA ([id number]) [facility] ([facility]) [address] [place] [address] Immature granulocytes (Bld) [#/Vol] 0.05 x10*3/uL Normal 0.00-0.70 [facility] Comment on above: Performed By: #### 2 243-4 #### MARIA E KAPADIA ([id number]) [facility] ([facility]) [address] [place] [address] Immature granulocytes/100 WBC (Bld) 0.6 % Normal 0.0-0.9 [facility] Comment on above: Result Comment: Ewa ture Granulocyte Count (IG) includes promyelocytes, myelocytes and metamyelocytes but does not include bands. Percent differential counts (%) should be interpreted in the context of the absolute cell counts (cells/UL). Performed By: #### 2 243-4 #### MARIA E KAPADIA ([id number]) [facility] ([facility]) [address] [place] [address] Lymphocytes (Bld) [#/Vol] 1.19 x10*3/uL Low 1.20-4.80 [facility] Comment on above: Performed By: #### 2 243-4 #### MARIA E KAPADIA ([id number]) [facility] ([facility]) [address] [place] [address] Lymphocytes/100 WBC (Bld) 13.9 % Normal 13.0-44.0 [facility] Comment on above: Performed By: #### 2 243-4 #### MARIA E KAPADIA ([id number]) [facility] ([facility]) [address] [place] [address] MCH (RBC) [Entitic mass] 30.1 pg Normal 26.0-34.0 [facility] Comment on above: Performed By: #### 2 243-4 #### MARIA E KAPADIA ([id number]) [facility] ([facility]) [address] [place] [address] MCHC (RBC) [Mass/Vol] 33.8 g/dL Normal 32.0-36.0 [facility] Comment on above: Performed By: #### 2 243-4 #### MARIA E KAPADIA ([id number]) [facility] ([facility]) [address] [place] [address] MCV (RBC) [Entitic vol] 89 fL Normal 80-100 [facility] Comment on above: Performed By: #### 2 243-4 #### MARIA E KAPADIA ([id number]) [facility] ([facility]) [address] [place] [address] Monocytes (Bld) [#/Vol] 0.34 x10*3/uL Normal 0.10-1.00 [facility] Comment on above: Performed By: #### 2 243-4 #### MARIA E KAPADIA ([id number]) [facility] ([facility]) [address] [place] [address] Monocytes/100 WBC (Bld) 4.0 % Normal 2.0-10.0 [facility] Comment on above: Performed By: #### 2 243-4 #### MARIA E KAPADIA ([id number]) [facility] ([facility]) [address] [place] [address] Neutrophils (Bld) [#/Vol] 6.86 x10*3/uL Normal 1.20-7.70 [facility] Comment on above: Result Comment: Perc ent differential counts (%) should be interpreted in the context of the absolute cell counts (cells/uL). Performed By: #### 2 243-4 #### MARIA E KAPADIA ([id number]) [facility] ([facility]) [address] [place] [address] Neutrophils/100 WBC (Bld) 80.2 % Normal 40.0-80.0 [facility] Comment on above: Performed By: #### 2 243-4 #### MARIA E KAPADIA ([id number]) [facility] ([facility]) [address] [place] [address] Nucleated RBC/100 WBC (Bld) [Ratio] 0.0 /100 WBCs Normal 0.0-0.0 [facility] Comment on above: Performed By: #### 2 243-4 #### MARIA E KAPADIA ([id number]) [facility] ([facility]) [address] [place] [address] Platelets (Bld) [#/Vol] 319 x10*3/uL Normal 150-450 [facility] Comment on above: Performed By: #### 2 243-4 #### MARIA E KAPADIA ([id number]) [facility] ([facility]) [address] [place] [address] RBC (Bld) [#/Vol] 3.69 x10*6/uL Low 4.00-5.[address] [facility] Comment on above: Performed By: #### 2 243-4 #### MARIA E KAPADIA ([id number]) [facility] ([facility]) [address] [place] [address] WBC (Bld) [#/Vol] 8.6 x10*3/uL Normal 4.4-11.3 [facility] Comment on above: Performed By: #### 2 243-4 #### MARIA E KAPADIA ([id number]) [facility] ([facility]) [address] [place] [address] Choriogonadotropin.beta subu niton 01-22-2025 [place] [address] m[IU]/mL High <5 U [facility] Comment on above: Order Comment: [...] #### 2 243-4 #### MARIA E STEFFI ([id number]) [facility] ([facility]) [address] [place] [address] Comprehensive metabolic 2000 panelon 01-22-2025 Albumin BCP dye [Mass/Vol] 4.5 g/dL 3.4 - 5.0 g/dL [facility] ALP [Catalytic activity/Vol] 56 U/L 33 - 110 U/L [facility] ALT With P-5'-P [Catalytic activity/Vol] 21 U/L 7 - 45 U/L [facility] Comment on above: Patients treated wit h Sulfasalazine may generate falsely decreased results for ALT. Anion gap [Moles/Vol] 15 mmol/L 10 - 2 0 mmol/L [facility] AST With P-5'-P [Catalytic activity/Vol] 18 U/L 9 - 39 U/L [facility] Bilirubin [Mass/Vol] 0.2 mg/dL 0.0 - 1 .2 mg/dL [facility] Calcium [Mass/Vol] 9.4 mg/dL 8.6 - 10. 3 mg/dL [facility] Chloride [Moles/Vol] 106 mmol/L 98 - 10 7 mmol/L [facility] CO2 [Moles/Vol] 19 mmol/L Low 21 - 32 mmol/L [facility] Creatinine [Mass/Vol] 0.83 mg/dL 0.50 - 1.05 mg/dL [facility] eGFR - PINF [facility] Comment on above: Calculations of isabelle mated GFR are performed using the 2020 CKD-EPI Study Refit equation without the race variable for the IDMS-Traceable creatinine methods. https://jasn.asnjournals.org/content/early//ASN.43572 92914 Glucose [Mass/Vol] 110 mg/dL High 74 - 99 mg/dL [facility] Interpretation and review of laboratory results Abnormal [facility] Potassium [Moles/Vol] 4.3 mmol/L 3.5 - 5.3 mmol/L [facility] Protein [Mass/Vol] 6.9 g/dL 6.4 - 8.2 g/dL [facility] Sodium [Moles/Vol] 136 mmol/L 136 - 145 mmol/L [facility] Urea nitrogen [Mass/Vol] 10 mg/dL 6 - 23 mg/dL [facility] Albumin BCP dye [Mass/Vol] 4.5 g/dL Normal 3.4-5.0 [facility] Comment on above: Performed By: #### 2 243-4 #### MARIA E KAPADIA ([id number]) [facility] ([facility]) [address] [phone] ALP [Catalytic activity/Vol] 56 U/L Normal 33-110 [facility] Comment on above: Performed By: #### 2 243-4 #### MARIA E KAPADIA ([id number]) [facility] ([facility]) [address] [phone] ALT With P-5'-P [Catalytic activity/Vol] 21 U/L Normal 7-45 [facility] Comment on above: Result Comment: Silvina ents treated with Sulfasalazine may generate falsely decreased results for ALT. Performed By: #### 2 243-4 #### MARIA E KAPADIA ([id number]) [facility] ([facility]) [address] [place] [address] Anion gap [Moles/Vol] 15 mmol/L Normal 10-20 [facility] Comment on above: Performed By: #### 2 243-4 #### MARIA E KAPADIA ([id number]) [facility] ([facility]) [address] [place] [address] AST With P-5'-P [Catalytic activity/Vol] 18 U/L Normal 9-39 [facility] Comment on above: Performed By: #### 2 243-4 #### MARIA E KAPADIA ([id number]) [facility] ([facility]) [address] [place] [address] Bilirubin [Mass/Vol] 0.2 mg/dL Normal 0.0-1.[address] [facility] Comment on above: Performed By: #### 2 243-4 #### MARIA E KAPADIA ([id number]) [facility] ([facility]) [address] [place] [address] Calcium [Mass/Vol] 9.4 mg/dL Normal 8.6-10.3 [facility] Comment on above: Performed By: #### 2 243-4 #### MARIA E KAPADIA ([id number]) [facility] ([facility]) [address] [place] [address] Chloride [Moles/Vol] 106 mmol/L Normal 98-[address] [facility] Comment on above: Performed By: #### 2 243-4 #### MARIA E KAPADIA ([id number]) [facility] ([facility]) [address] [place] [address] CO2 [Moles/Vol] 19 mmol/L Low 21-32 [facility] Comment on above: Performed By: #### 2 243-4 #### MARIA E KAPADIA ([id number]) [facility] ([facility]) [address] [place] [address] Creatinine [Mass/Vol] 0.83 mg/dL Normal 0.50-1.05 [facility] Comment on above: Performed By: #### 2 243-4 #### MARIA E KAPADIA ([id number]) [facility] ([facility]) [address] [place] [address] GFR/1.73 sq M.predicted MDRD (S/P/Bld) [Vol rate/Area] mL/min/{1.73_m2} Normal >60 [facility] Comment on above: Result Comment: Calc ulations of estimated GFR are performed using the 2020 CKD-EPI Study Refit equation without the race variable for the IDMS-Traceable creatinine methods. https://jasn.asnjournals.org/content/early/ASN.79839 53363 Performed By: #### 2 243-4 #### MARIA E KAPADIA ([id number]) [facility] ([facility]) [address] [place] [address] Glucose [Mass/Vol] 110 mg/dL High 74-99 [facility] Comment on above: Performed By: #### 2 243-4 #### MARIA E KAPADIA ([id number]) [facility] ([facility]) [address] [place] [address] Potassium [Moles/Vol] 4.3 mmol/L Normal 3.5-5.3 [facility] Comment on above: Performed By: #### 2 243-4 #### MAIRA E KAPADIA ([id number]) [facility] ([facility]) [address] [place] [address] Protein [Mass/Vol] 6.9 g/dL Normal 6.4-8.2 [facility] Comment on above: Performed By: #### 2 243-4 #### MARIA E KAPADIA ([id number]) [facility] ([facility]) [address] [place] [address] Sodium [Moles/Vol] 136 mmol/L Normal 136-145 [facility] Comment on above: Performed By: #### 2 243-4 #### MARIA E KAPADIA ([id number]) [facility] ([facility]) [address] [place] [address] Urea nitrogen [Mass/Vol] 10 mg/dL Normal 6-23 [facility] Comment on above: Performed By: #### 2 243-4 #### MARIA E KAPADIA ([id number]) [facility] ([facility]) [address] [place] [address] HCG.beta subunit Qnon 2024 Interpretation and review of laboratory results Abnormal [facility] Total HCG measuremen t is performed using the Елена [employer] Access Immunoassay which detects intact HCG and free beta HCG subunit. This test is not indicated for use as a tumor marker. HCG testing is performed using a different test methodology at [facility] than other [facility] surgeons hospital. Direct result comparison should only be made within the same method. [facility] Human Chorionic Gonadotropin , Serum Quantitativeon 01-22-2025 [place] [address] m[IU]/mL High NINF U [facility] Comment on above: Low-level positive H [...] Ql (Unsp spec) None Seen None Seen [facility] T. vaginalis Wet prep Ql (Unsp spec) None Seen None Seen [facility] WBC Wet prep Ql (Vag fld) 1-2 [facility] Yeast Wet prep Ql (Vag fld) None Seen None Seen [facility] Microscopic observation Wet prep Nom (Unsp spec)on 01-22-2025 Clue cells Wet prep Ql (Unsp spec) None Seen Normal None Seen [facility] Comment on above: Performed By: #### 2 243-4 #### MARIA E KAPADIA ([id number]) [facility] ([facility]) [address] [place] [address] T. vaginalis Wet prep Ql (Unsp spec) None Seen Normal None Seen [facility] Comment on above: Performed By: #### 2 243-4 #### MARIA E KAPADIA ([id number]) [facility] ([facility]) [address] [place] [address] WBC Wet prep Ql (Vag fld) 1-2 Normal [facility] Comment on above: Performed By: #### 2 243-4 #### MARIA E KAPADIA ([id number]) [facility] ([facility]) [address] [place] [address] Yeast Wet prep Ql (Vag fld) None Seen Normal None Seen [facility] Comment on above: Performed By: #### 2 243-4 #### MARIA E KAPADIA ([id number]) [facility] ([facility]) [address] [place] [address] US OB LESS THAN 14 WEEKS EAR [place] 01-22-2025 US OB LESS THAN 14 WEEKS EARLY Interpreted By: Lisa Parmar, STUDY: US OB LESS THAN 14 WEEKS EARLY 01/22/2025 12:37 pm INDICATION: Signs/Symptoms:6 weeks with brown/pink discharge and lower back pain COMPARISON: 01/18/2025 ACCESSION NUMBER(S): [id number] ORDERING CLINICIAN: ZANE PRYOR TECHNIQUE: Transabdominal and [...] Lisa Parmar 01/22/2025 1:12 PM Dictation workstation: [id number] [facility] US for in first tr imesteron 01-22-2025 Single live intraute rine gestation of 6 weeks and 5 days sonographic gestational age. There has been normal interval growth since 01/18/2025. 0.4 x 0.6 x 0.9 cm subchorionic hemorrhage. Signed by: Lisa Parmar 01/22/2025 1:12 PM Dictation workstation: [id number] [facility] Interpreted By: Lisa Parmar, STUDY: US OB LESS THAN 14 WEEKS EARLY 01/22/2025 12:37 pm INDICATION: Signs/Symptoms:6 weeks with brown/pink discharge and lower back pain COMPARISON: 01/18/2025 ACCESSION NUMBER(S): [id number] ORDERING CLINICIAN: ZANE PRYOR TECHNIQUE: Transabdominal and [...] lower back pain COMPARISON: 01/18/2025 ACCESSION NUMBER(S): [id number] ORDERING CLINICIAN: ZANE PRYOR TECHNIQUE: Transabdominal and [...] Lisa Parmar 01/22/2025 1:12 PM Dictation workstation: [id number] [facility] Work Phone: Radiology Study observation (narrative) [facility] Work Phone: US for in first tr imesterOrdered By: Lisa Parmar on 01-22-2025 [facility] Work Phone: Urinalysis complete W Reflex Culture panel (U)on 01-22-2025 Appearance (U) Clear Clear [facility] Bilirubin (U) [Mass/Vol] Negative NEGATIVE mg/dL [facility] Color (U) Colorless Abnormal Light-Yellow , Yellow, Dark-Yellow [facility] Glucose Auto test strip (U) [Mass/Vol] Normal Normal mg/dL [facility] Interpretation and review of laboratory results Abnormal [facility] Ketones (U) [Mass/Vol] Negative NEGAT CARMEN mg/dL [facility] Leukocyte esterase Auto test strip Ql (U) Negative NEGATIVE [facility] Nitrite Auto test strip Ql (U) Negative NEGATIVE [facility] pH (U) 8 [pH] 5.0, 5.5, 6.0, 6.5, 7.0, 7.5, 8.0 [facility] Protein (U) [Mass/Vol] Negative NEGAT CARMEN, 10 (TRACE), 20 (TRACE) mg/dL [facility] RBC (U) [#/Vol] Negative NEGATIVE mg/dL [facility] Specific gravity (U) [Rel density] 1.006 1.005 - 1.035 [facility] Urobilinogen (U) [Mass/Vol] Normal Normal mg/dL [facility] Appearance (U) Clear Normal Clear [facility] Comment on above: Performed By: #### 2 243-4 #### MARIA E KAPADIA ([id number]) [facility] ([facility]) [address] [place] [address] Bilirubin (U) [Mass/Vol] Negative Normal NEGATIVE [facility] Comment on above: Performed By: #### 2 243-4 #### MARIA E KAPADIA ([id number]) [facility] ([facility]) [address] [place] [address] Color (U) Colorless Normal Light-Yellow , Yellow, Dark-Yellow [facility] Comment on above: Performed By: #### 2 243-4 #### MARIA E KAPADIA ([id number]) [facility] ([facility]) [address] [place] [address] Glucose Auto test strip (U) [Mass/Vol] Normal Normal Normal [facility] Comment on above: Performed By: #### 2 243-4 #### MARIA E KAPADIA ([id number]) [facility] ([facility]) [address] [place] [address] Ketones (U) [Mass/Vol] Negative Normal NEGATIVE [facility] Comment on above: Performed By: #### 2 243-4 #### MARIA E KAPADIA ([id number]) [facility] ([facility]) [address] [place] [address] Leukocyte esterase Auto test strip Ql (U) Negative Normal NEGATIVE [facility] Comment on above: Performed By: #### 2 243-4 #### MARIA E KAPADIA ([id number]) [facility] ([facility]) [address] [place] [address] Nitrite Auto test strip Ql (U) Negative Normal NEGATIVE [facility] Comment on above: Performed By: #### 2 243-4 #### MARIA E KAPADIA ([id number]) [facility] ([facility]) [address] [place] [address] pH (U) 8.0 [pH] Normal 5.0, 5.5, 6.0, 6.5, 7.0, 7.5, 8.0 [facility] Comment on above: Performed By: #### 2 243-4 #### MARIA E KAPADIA ([id number]) [facility] ([facility]) [address] [place] [address] Protein (U) [Mass/Vol] Negative Normal NEGAT CARMEN, 10 (TRACE), 20 (TRACE) [facility] Comment on above: Performed By: #### 2 243-4 #### MARIA E KAPADIA ([id number]) [facility] ([facility]) [address] [place] [address] RBC (U) [#/Vol] Negative Normal NEGATIVE [facility] Comment on above: Performed By: #### 2 243-4 #### MARIA E KAPADIA ([id number]) [facility] ([facility]) [address] [place] [address] Specific gravity (U) [Rel density] 1.006 Normal 1.005-1.035 [facility] Comment on above: Performed By: #### 2 243-4 #### MARIA E KAPADIA ([id number]) [facility] ([facility]) [address] [id number] Urobilinogen (U) [Mass/Vol] Normal Normal Normal [facility] Comment on above: Performed By: #### 2 243-4 #### MARIA E KAPADIA ([id number]) [facility] ([facility]) [address] [phone] US OB TRANSVAGINALon 025 US OB TRANSVAGINAL [...] evaluation for early dating. View: Sufficient Normal [facility] US OB TRANSVAGINALon 025 US OB [...] evaluation for early dating. View: Sufficient Normal [facility] Choriogonadotropin.beta subu niton 01-09-2025 HCG.beta subunit Qn 1756 m[IU]/mL High <5 [facility] Comment on above: Order Comment: [...] #### 2 243-4 #### MARIA E STEFFI ([id number]) [facility] ([facility] [address] [place] [address] Absolute lymphocyte countOrd ered By: Domo Weaver on 01-06-2025 Lymphocytes Auto (Unsp spec) [#/Vol] 2.66 10*3/uL 0.83-4.51 [facility] Absolute neutrophil countOrd ered By: Domo Weaver on 01-06-2025 Neutrophils (Bld) [#/Vol] 5.5 10*3/uL 2.0-7.7 [facility] Anion gap in Serum or Plasma Ordered By: Domo Weaver on 01-06-2025 Anion gap [Moles/Vol] 13 mmol/L 5-15 [facility] Automated lymphocyte count a s percentage of total leukocytesOrdered By: Domo Weaver on 01-06-2025 Lymphocytes/100 WBC Auto (Unsp spec) 30.2 % 19-41 [facility] BUN/creatinine ratioOrdered By: Domo Weaver on 01-06-2025 Urea nitrogen/Creatinine [Mass ratio] 15.8 mg/mg 10-20 [facility] Basophil percentageOrdered B y: Domo Weaver on 01-06-2025 Basophils/100 WBC (Bld) 0.7 % 0-1 [facility] Bilirubin, totalOrdered By: Domo Weaver on 01-06-2025 Bilirubin [Mass/Vol] 0.32 mg/dL 0.00-1.30 [facility] CBC W/Diff, Automatedon 12-28 0-2024 Absolute Lymph 2.66 X10 3/uL Normal 0.83-4.51 [facility] Comment on above: Performed By: #### L 100.0100, L500.4050, L501.6710, L101.9900 ####[facility] [address] [place], [address] Absolute Neut 5.5 X10 3/uL Normal 2.0-7.7 [facility] Comment on above: Performed By: #### L 100.0100, L500.4050, L501.6710, L101.9900 ####[facility] [address] [place], [address] Basophils/100 WBC (Bld) 0.7 % Normal 0-1 [facility] Comment on above: Performed By: #### L 100.0100, L500.4050, L501.6710, L101.9900 ####[facility] [address] [place], [address] Eosinophils/100 WBC (Bld) 1.4 % Normal 0-5 [facility] Comment on above: Performed By: #### L 100.0100, L500.4050, L501.6710, L101.9900 ####[facility] [address] [place], [address] Erythrocyte distribution width (RBC) [Ratio] 12.3 % Normal 11.6-14.6 [facility] Comment on above: Performed By: #### L 100.0100, L500.4050, L501.6710, L101.9900 ####[facility] [address] [place], [address] Hematocrit (Bld) [Volume fraction] 34.3 % Low 37-47 [facility] Comment on above: Performed By: #### L 100.0100, L500.4050, L501.6710, L101.9900 ####[facility] [address] [place], [address] Hemoglobin (Bld) [Mass/Vol] 11.2 g/dL Low 12.0-15.0 [facility] Comment on above: Performed By: #### L 100.0100, L500.4050, L501.6710, L101.9900 ####[facility] [address] [place], [address] IG% 0.300 Normal 0.0-0.9 [facility] Comment on above: Result Comment: IG% - Immature Granulocytes (promyelocytes, myelocytes and metamyelocytes) > 1% indicates that a LEFT SHIFT is Present. Performed By: #### L 100.0100, L500.4050, L501.6710, L101.9900 ####[facility] [address] [place], [address] Lymphocytes/100 WBC (Bld) 30.2 % Normal 19-41 [facility] Comment on above: Performed By: #### L 100.0100, L500.4050, L501.6710, L101.9900 ####[facility] [address] [place], [address] MCH (RBC) [Entitic mass] 29.6 pg Normal 27.0-32.0 [facility] Comment on above: Performed By: #### L 100.0100, L500.4050, L501.6710, L101.9900 ####[facility] [address] [place], [address] MCHC (RBC) [Mass/Vol] 32.7 g/dL Normal 32-36 [facility] Comment on above: Performed By: #### L 100.0100, L500.4050, L501.6710, L101.9900 ####[facility] [address] [place], [address] MCV (RBC) [Entitic vol] 90.7 fL Normal 81-99 [facility] Comment on above: Performed By: #### L 100.0100, L500.4050, L501.6710, L101.9900 ####[facility] [address] [place], [address] Monocytes/100 WBC (Bld) 4.7 % Normal 0-10 [facility] Comment on above: Performed By: #### L 100.0100, L500.4050, L501.6710, L101.9900 ####[facility] [address] [place], [address] Neutrophils/100 WBC (Bld) 62.7 % Normal 47-70 [facility] Comment on above: Performed By: #### L 100.0100, L500.4050, L501.6710, L101.9900 ####[facility] [address] [place], [address] Nucleated RBC (Bld) [#/Vol] 0 10*3/uL Normal 0-5 [facility] Comment on above: Performed By: #### L 100.0100, L500.4050, L501.6710, L101.9900 ####[facility] [address] [place], [address] Platelet mean volume (Bld) [Entitic vol] 10.0 fL Normal 6.2-12.0 [facility] Comment on above: Performed By: #### L 100.0100, L500.4050, L501.6710, L101.9900 ####[facility] [address] [place], [address] Platelets (Bld) [#/Vol] 358 10*3/uL Normal 150-450 [facility] Comment on above: Performed By: #### L 100.0100, L500.4050, L501.6710, L101.9900 ####[facility] [address] [place], [address] RBC (Bld) [#/Vol] 3.78 10*6/uL Low 4.2-5.4 [facility] Comment on above: Performed By: #### L 100.0100, L500.4050, L501.6710, L101.9900 ####[facility] [address] [place], [address] RDW SD 40.6 fl Normal 35.1-43.9 [facility] Comment on above: Performed By: #### L 100.0100, L500.4050, L501.6710, L101.9900 ####[facility] [address] [place], [address] WBC (Bld) [#/Vol] 8.8 10*3/uL Normal 4.4-11.0 [facility] Comment on above: Performed By: #### L 100.0100, L500.4050, L501.6710, L101.9900 ####[facility] [address] [place], [address] CRPon 01-06-2025 C-REACTIVE PROT 5.97 mg/L High 0.0-3.0 [facility] Comment on above: Performed By: #### L 100.0100, L500.4050, L501.6710, L101.9900 ####[facility] [address] [place], [address] Carbon dioxide, total [Moles /volume] in Central venous bloodOrdered By: Domo Friend on 01-06-2025 CO2 [Moles/Vol] 21.3 mmol/L 21.0-32.0 [facility] Chloride assayOrdered By: Ra otto Friend on 01-06-2025 Chloride [Moles/Vol] 104 mmol/L 98-108 [facility] Comprehensive Metabolic Prof ilon 01-06-2025 Albumin [Mass/Vol] 4.2 g/dL Normal 3.5-5.0 [facility] Comment on above: Performed By: #### L 100.0100, L500.4050, L501.6710, L101.9900 ####[facility] [address] [place], [address] Albumin/Globulin [Mass ratio] 1.4 {ratio} Normal 0.9-2.4 [facility] Comment on above: Performed By: #### L 100.0100, L500.4050, L501.6710, L101.9900 ####[facility] [address] [place], [address] ALK PHOS 57 U/L Normal 35-104 [facility] Comment on above: Performed By: #### L 100.0100, L500.4050, L501.6710, L101.9900 ####[facility] [address] [place], [address] ALT [Catalytic activity/Vol] 15 U/L Normal <=34 [facility] Comment on above: Performed By: #### L 100.0100, L500.4050, L501.6710, L101.9900 ####[facility] [address] [place], [address] AST [Catalytic activity/Vol] 18 U/L Normal <=31 [facility] Comment on above: Performed By: #### L 100.0100, L500.4050, L501.6710, L101.9900 ####[facility] [address] [place], [address] Bilirubin [Mass/Vol] 0.32 mg/dL Normal 0.00-1.30 [facility] Comment on above: Performed By: #### L 100.0100, L500.4050, L501.6710, L101.9900 ####[facility] [address] [place], [address] BUN/CRE 15.8 RATIO Normal 10-20 [facility] Comment on above: Performed By: #### L 100.0100, L500.4050, L501.6710, L101.9900 ####[facility] [address] [place], [address] Calcium [Mass/Vol] 9.2 mg/dL Normal 7.6-11.0 [facility] Comment on above: Performed By: #### L 100.0100, L500.4050, L501.6710, L101.9900 ####[facility] [address] [place], [address] Chloride [Moles/Vol] 104 mmol/L Normal 98-108 [facility] Comment on above: Performed By: #### L 100.0100, L500.4050, L501.6710, L101.9900 ####[facility] [address] [place], [address] CO2 [Moles/Vol] 21.3 mmol/L Normal 21.0-32.0 [facility] Comment on above: Performed By: #### L 100.0100, L500.4050, L501.6710, L101.9900 ####[facility] [address] [place], [address] Creatinine [Mass/Vol] 0.69 mg/dL Low 0.70-1.20 [facility] Comment on above: Performed By: #### L 100.0100, L500.4050, L501.6710, L101.9900 ####[facility] [address] [place], [address] GAP 13 Normal 5-15 [facility] Comment on above: Performed By: #### L 100.0100, L500.4050, L501.6710, L101.9900 ####[facility] [address] [place], [address] GFR/1.73 sq M.predicted among non-blacks MDRD (S/P/Bld) [Vol rate/Area] 120 mL/min/{1.73_m2} Normal >60 [facility] Comment on above: Result Comment: mL/m in/1.73m2 CKD-EPI Creatinine Equation (2020) Performed By: #### L 100.0100, L500.4050, L501.6710, L101.9900 ####[facility] [address] [place], [address] Globulin (S) [Mass/Vol] 3.0 g/dL Normal 2.2-4.2 [facility] Comment on above: Performed By: #### L 100.0100, L500.4050, L501.6710, L101.9900 ####[facility] [address] [place], [address] Glucose [Mass/Vol] 121 mg/dL High 70-99 [facility] Comment on above: Performed By: #### L 100.0100, L500.4050, L501.6710, L101.9900 ####[facility] [address] [place], [address] Potassium [Moles/Vol] 3.7 mmol/L Normal 3.3-5.1 [facility] Comment on above: Performed By: #### L 100.0100, L500.4050, L501.6710, L101.9900 ####[facility] [address] [place], [address] Sodium [Moles/Vol] 138 mmol/L Normal 133-145 [facility] Comment on above: Performed By: #### L 100.0100, L500.4050, L501.6710, L101.9900 ####[facility] [address] [place], [address] T PROT 7.2 g/dL Normal 5.9-8.4 [facility] Comment on above: Performed By: #### L 100.0100, L500.4050, L501.6710, L101.9900 ####[facility] [address] [place], [address] Urea nitrogen [Mass/Vol] 11 mg/dL Normal 4-19 [facility] Comment on above: Performed By: #### L 100.0100, L500.4050, L501.6710, L101.9900 ####[facility] [address] [place], [address] Eosinophil percentageOrdered By: Domo Friend on 01-06-2025 Eosinophils/100 WBC (Bld) 1.4 % 0-5 [facility] Erythrocyte Sed Rateon 01-06 SED RATE 8 mm/hr Normal 0-30 [facility] Comment on above: Performed By: #### L 100.0100, L500.4050, L501.6710, L101.9900 ####[facility] [address] [place], [address] Erythrocyte distribution wid th ratioOrdered By: Domo Friend on 01-06-2025 Erythrocyte distribution width (RBC) [Ratio] 12.3 % 11.6-14.6 [facility] Erythrocyte distribution wid th standard deviationOrdered By: Domo Weaver on 01-06-2025 Erythrocyte distribution width (RBC) [Ratio] 40.6 fl 35.1-43.9 [facility] Erythrocyte sedimentation ra teOrdered By: Domo Weaver on 01-06-2025 ESR (Bld) [Velocity] 8 mm/h 0-30 [facility] Glomerular filtration rate ( GFR) estimation/1.73 sq m using serum, plasma, or whole bOrdered By: Domo Weaver on 01-06-2025 GFR/1.73 sq M.predicted among non-blacks MDRD (S/P/Bld) [Vol rate/Area] 120 mL/min/{1.73_m2} >60 [facility] Comment on above: mL/min/1.73m2 CKD-EP I Creatinine Equation (2020) Hematocrit Auto (Bld) [Volum e fraction]Ordered By: Domo Weaver on 01-06-2025 Hematocrit (Bld) [Volume fraction] 34.3 % Low 37-47 [facility] Hemoglobin measurementOrdere d By: Domo Weaver on 01-06-2025 Hemoglobin (Bld) [Mass/Vol] 11.2 g/dL Low 12.0-15.0 [facility] Immature granulocytes/100 WB C Auto (Bld)Ordered By: Domo Weaver on 01-06-2025 Immature granulocytes/100 WBC (Bld) 0.300 % 0.0-0.9 [facility] Comment on above: IG% - Immature Granu locytes (promyelocytes, myelocytes and metamyelocytes) > 1% indicates that a LEFT SHIFT is Present. Laboratory - Chemistry and C hemistry - challengeOrdered By: Domo Weaver on 01-06-2025 AST [Catalytic activity/Vol] 18 U/L <32 [facility] MCV (mean corpuscular volume ) determinationOrdered By: Domo Weaver on 01-06-2025 MCV (RBC) [Entitic vol] 90.7 fL 81-99 [facility] Mean corpuscular hemoglobin (MCH) determinationOrdered By: Domo Weaver on 01-06-2025 MCH (RBC) [Entitic mass] 29.6 pg 27.0-32.0 [facility] Mean corpuscular hemoglobin concentration (MCHC) determinationOrdered By: Domo Weaver on 01-06-2025 MCHC (RBC) [Mass/Vol] 32.7 g/dL 32-36 [facility] Mean platelet volume determi nationOrdered By: Domo Weaver on 01-06-2025 Platelet mean volume (Bld) [Entitic vol] 10.0 fL 6.2-12.0 [facility] Monocyte percentageOrdered B y: Domo Weaver on 01-06-2025 Monocytes/100 WBC (Bld) 4.7 % 0-10 [facility] Neutrophil percentageOrdered By: Domo Weaver on 01-06-2025 Neutrophils/100 WBC (Bld) 62.7 % 47-70 [facility] Nucleated red blood cell per centageOrdered By: Domo Weaver on 01-06-2025 Nucleated RBC/100 WBC (Bld) [Ratio] 0 % 0-5 [facility] Platelet countOrdered By: Ra clarita Weaver on 01-06-2025 Platelets (Bld) [#/Vol] 358 10*3/uL 150-450 [facility] Potassium measurement (mass/ volume)Ordered By: Domo Weaver on 01-06-2025 Potassium (Unsp spec) [Mass/Vol] 3.7 mmol/L 3.3-5.1 [facility] RBC Auto (Bld) [#/Vol]Ordere d By: Domo Weaver on 01-06-2025 RBC (Bld) [#/Vol] 3.78 10*6/uL Low 4.2-5.4 [facility] Serum creatinine measurement (mass/volume)Ordered By: Domo Weaver on 01-06-2025 Creatinine [Mass/Vol] 0.69 mg/dL Low 0.70-1.20 [facility] Serum globulin measurementOr dered By: Domo Weaver on 01-06-2025 Globulin (S) [Mass/Vol] 3.0 g/dL 2.2-4.2 [facility] Serum glucose measurement (m ass/volume)Ordered By: Domo Weaver on 01-06-2025 Glucose [Mass/Vol] 121 mg/dL High 70-99 [facility] Serum or plasma C reactive p rotein measurement (mass/volume)Ordered By: Domo Weaver on 01-06-2025 CRP [Mass/Vol] 5.97 mg/L High 0.0-3.0 [facility] Serum or plasma alanine parisi otransferase (ALT) measurementOrdered By: Domo Weaver on 01-06-2025 ALT [Catalytic activity/Vol] 15 U/L <35 [facility] Serum or plasma albumin arielle urement (mass/volume)Ordered By: Domo Weaver on 01-06-2025 Albumin [Mass/Vol] 4.2 g/dL 3.5-5.0 [facility] Serum or plasma albumin/glob ulin mass ratioOrdered By: Domo Weaver on 01-06-2025 Albumin/Globulin [Mass ratio] 1.4 {ratio} 0.9-2.4 [facility] Serum or plasma alkaline marcelo sphatase measurementOrdered By: Domo Weaver on 01-06-2025 ALP [Catalytic activity/Vol] 57 U/L 35-104 [facility] Serum or plasma calcium arielle urement (mass/volume)Ordered By: Domo Weaver on 01-06-2025 Calcium [Mass/Vol] 9.2 mg/dL 7.6-11.0 [facility] Serum or plasma urea nitroge n measurement (mass/volume)Ordered By: Domo Weaver on 01-06-2025 Urea nitrogen [Mass/Vol] 11 mg/dL 4-19 [facility] Sodium levelOrdered By: Alisa Michelle on 01-06-2025 Sodium [Moles/Vol] 138 mmol/L 133-145 [facility] Total proteinOrdered By: Lai Weaver on 01-06-2025 Protein [Mass/Vol] 7.2 g/dL 5.9-8.4 [facility] White blood cell (WBC) count Ordered By: Domo Weaver on 01-06-2025 WBC (Bld) [#/Vol] 8.8 10*3/uL 4.4-11.0 [facility] Choriogonadotropin.beta subu niton 01-05-2025 HCG.beta subunit Qn [...] #### 2 243-4 #### MARIA E STEFFI ([id number]) [facility] ([facility]) [address] [place] [address] Gastroenterology Visit Repor ton 01-01-2025 Gastroenterology Visit Report [facility] [address] [place] [address] OFFICE VISIT Date of Service: 01/01/25 MR#: [id number] Acct: [id number] Name: MARIXA AMOS Rep #: [id number] : 1995 Provider: Domo Weaver DO Age/Sex: 29/F Location: [facility] Status: Signed Intake Vital Signs 12/09/23 [...] 01/01/25 History mcg (2,500 unit) capsule omega 7-mqp-ual-fish oil 300 1 cap PO QDAY 07/12/24 [...] story progesterone oil IM 01/01/25 01/01/25 History [facility] Medical History (Updated 07/12/24 @ 10:30 by Jesika Farrar DIRECTOR PHARMACOVIGILANCE, DIRECTOR PHARMACOVIGILANCE-C) Endometriosis Low iron Anemia Latent tuberculosis Ulcerative [...] SABRINA, GAME? (more content not included)... 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 Holder Depth: 7 cm Curve: anterior [...] Tristan 12/26/24 11:35 AM [facility] Work Phone: Progesteroneon 12-26-2024 Progesterone [Mass/Vol] 34.6 ng/mL Normal [facility] Comment on above: Order Comment: REF V ALUES FOLLICULAR PHASE 20-144 MID CYCLE 64-357 LUTEAL PHASE 56-214 POSTMENOPAUSE < 32 PREPUBERTY < 20 FEMALE 10-18Y 8-110 MALE 10-18Y < 20 ADULT MALE < 40 Performed By: #### 2 243-4 #### MARIA E STEFFI ([id number]) [facility] ([facility]) [address] [place] [address] LIPID PANEL, STANDARDon 11-29 Cholesterol [Mass/Vol] 228 mg/dL High <200 [facility] Comment on above: Order Comment: FASTI NG:YES FASTING: YES Performed By: #### 1 6793, 1620 #### [facility] [address], [address] [place], [place] [id number] Aed Trainer: Cody Spencer MD Cholesterol in HDL [Mass/Vol] 68 mg/dL Normal > OR = 50 [facility] Comment on above: Order Comment: FASTI NG:YES FASTING: YES Performed By: #### 1 47, 7600 #### [facility] [address], [address] [place] [address] Aed Trainer: Cody Spencer MD Cholesterol in LDL [Mass/Vol] [...] Luis Miguel GALLARDO et al. DESIRE. 2013;310(19): 1499-1324 (http://education.PushCoin/faq/JZM180) Performed By: #### 1 05, 4150 #### [facility] [address], [address] [place] [address] Aed Trainer: Cody Spencer MD Cholesterol.total/Chol esterol in HDL [Mass ratio] 3.4 {ratio} Normal <5.0 [facility] Comment on above: Order Comment: FASTI NG:YES FASTING: YES Performed By: #### 1 3659, 1420 #### [facility] [address], [address] [place] [address] Aed Trainer: Cody Spencer MD NON HDL CHOLESTEROL 160 mg/dL (calc) High <130 [facility] Comment on above: Order Comment: FASTI NG:YES FASTING: YES Result Comment: For patients with diabetes plus 1 major ASCVD risk factor, treating to a non-HDL-C goal of <100 mg/dL (LDL-C of <70 mg/dL) is considered a therapeutic option. Performed By: #### 1 7306, 7600 #### [facility] [address], [address] [place] [address] Aed Trainer: Cody Spencer MD Triglyceride [Mass/Vol] 190 mg/dL High <150 [facility] Comment on above: Order Comment: FASTI NG:YES FASTING: YES Performed By: #### 1 7306, 7600 #### [facility] [address], [address] [place] [address] Aed Trainer: Cody Spencer MD VITAMIN D,25-OH,TOTAL,IAon 0 12-21-2024 [...] D, (D2,D3), LC/MS/MS is recommended: order code 17441 (patients >2yrs). See Note 1 Note 1 For additional information, please refer to http://education.PushCoin/faq/CFQ084 (This link is being provided for informational/ educational purposes only.) Performed By: #### 1 7306, 7600 #### [facility] [address], [address] [place] [address] Aed Trainer: Cody Spencer MD Destr of lesionon 12-20-2024 Complexity: simple Destruction method: cryotherapy Informed consent: discussed and consent obtained Debridement: hyperkeratotic portion removed with sharp debridement Lesion destroyed using liquid nitrogen: Yes Cryotherapy cycles: 3 Outcome: patient tolerated procedure well with no complications Post-procedure details: wound care instructions given [facility] Work Phone: [facility] Work Phone: Progesteroneon 12-20-2024 Progesterone [Mass/Vol] 0.2 ng/mL Normal [facility] Comment on above: Order Comment: REF V ALUES FOLLICULAR PHASE 20-144 MID CYCLE 64-357 LUTEAL PHASE 56-214 POSTMENOPAUSE < 32 PREPUBERTY < 20 FEMALE 10-18Y 8-110 MALE 10-18Y < 20 ADULT MALE < 40 Performed By: #### 2 243-4 #### MARIA E KAPADIA ([id number]) [facility] ([facility]) [address] [place] [address] Estradiolon 12-15-2024 E2 [Mass/Vol] 417 pg/mL Normal [facility] Comment on above: Order Comment: REF V ALUES FOLLICULAR PHASE 20-144 MID CYCLE 64-357 LUTEAL PHASE 56-214 POSTMENOPAUSE < 32 PREPUBERTY < 20 FEMALE 10-18Y 8-110 MALE 10-18Y < 20 ADULT MALE < 40 Performed By: #### 2 243-4 #### MARIA E KAPADIA ([id number]) [facility] ([facility]) [address] [place] [address] Progesteroneon 12-15-2024 Progesterone [Mass/Vol] 0.6 ng/mL Normal [facility] Comment on above: Order Comment: REF V ALUES FOLLICULAR PHASE 20-144 MID CYCLE 64-357 LUTEAL PHASE 56-214 POSTMENOPAUSE < 32 PREPUBERTY < 20 FEMALE 10-18Y 8-110 MALE 10-18Y < 20 ADULT MALE < 40 Performed By: #### 2 243-4 #### MARIA E KAPADIA ([id number]) [facility] ([facility]) [address] [place] [address] [facility] US ENDOMETRIAL LINING CH ECKon 12-15-2024 [facility] US ENDOMETRIAL LINING CHECK Trilaminar appearance to the endometrium is noted. Normal [facility] ANTI-MULLERIAN HORMONE (AMH) , FEMALEon 11-25-2024 ANTI-MULLERIAN HORMONE (AMH), FEMALE 1.90 ng/mL Normal 0.69-13.39 [facility] Comment on above: Performed By: #### 1 1363, 18179, 405[address], 8472, 74540, 498 #### [facility] [address] [place] [address], [address] [place] [id number] Aed Trainer: Cody Spencer MD #### [id number] #### [facility]/[place] [id number] [facility] [place], [place] Aed Trainer: Jeremiah Holder M.D.,PhD #### [id number] #### [facility], [address] [place], [place] Aed Trainer: Bianka Brenner MD,PhD,HAMLET CHLAMYDIA/N. GONORRHOEAE RNA , TMA, UROGENITALon 11-25-2024 CHLAMYDIA TRACHOMATIS RNA, TMA, UROGENITAL Not detected Normal NOT DETECTED [facility] Comment on above: Performed By: #### 1 1363, [address], [address], 8472, 84491, 498 #### [facility] [address], [address] [place] [address] Aed Trainer: Cody Spencer MD #### [id number] #### [facility]/[address] [place], [place] Aed Trainer: Jeremiah Holder M.D.,PhD #### [id number] #### [facility], [address] [place], [place] Aed Trainer: Bianka Brenner MD,PhD,HAMLET COMMENT Normal [facility] Comment on above: Result Comment: The analytical performance characteristics of this assay, when used to test SurePath(TM) specimens have been determined by [employer]. The modifications have not been cleared or approved by the FDA. This assay has been validated pursuant to the CLIA regulations and is used for clinical purposes. For additional information, please refer to https://education.Creww/faq/HZS844 (This link is being provided for information/ educational purposes only.) Performed By: #### 1 1363, [address], [address], 8472, 328[address], 498 #### [facility] [address], [address] [place] [address] Aed Trainer: Cody Spencer MD #### [id number] #### [facility]/[place] [id number] [facility] [place] Aed Trainer: Jeremiah Holder M.D.,PhD #### [id number] #### [facility] [place], [address] [place], [place] Aed Trainer: Bianka Brenner MD,PhD,HAMLET NEISSERIA GONORRHOEAE RNA, TMA, UROGENITAL Not detected Normal NOT DETECTED [facility] Comment on above: Performed By: #### 1 1363, 65934, 10163, 8472, 06473, 498 #### [facility] [address], [address] [place] [address] Aed Trainer: Cody Spencer MD #### [id number] #### [facility]/[place] [id number] [facility] [place] Aed Trainer: Jeremiah Holder M.D.,PhD #### [id number] #### [facility]/[place] [place], [address] [facility] [place] [place] Aed Trainer: Bianka Brenner MD,PhD,HAMLET HEMOGLOBIN A1c WITH eAGon eAG (mmol/L) 6.0 mmol/L Normal [facility] Comment on above: Performed By: #### 1 1363, 24569, 29655, 8472, 09696, 498 #### [facility] [address] , [address] [place] [address] Aed Trainer: Cody Spencer MD #### [id number] #### [facility]/[place] [address] [facility] [address] [place] Aed Trainer: Jeremiah Holder M.D.,PhD #### [id number] #### [facility]/[place] [facility], [address] [place] [address] Aed Trainer: Bianka Brenner MD,PhD,HAMLET HEMOGLOBIN A1c 5.4 % [...] diagnosis of diabetes in children. According to [place] Diabetes Association (ADA) guidelines, hemoglobin A1c <7.0% represents optimal control in non- diabetic patients. Different metrics may apply to specific patient populations. Standards of Medical Care in Diabetes(ADA). Performed By: #### 1 1363, 72083, 64779, 8472, 00260, 498 #### [facility] [address], [address] [place] [address] Aed Trainer: Cody Spencer MD #### [id number] #### [facility]/[place] [address] [place], [place] Aed Trainer: Jeremiah Holder M.D.,PhD #### [id number] #### [facility]/[place], [address] [place] [address] Aed Trainer: Bianka Brenner MD,PhD,HAMLET Magnesium [Mass/Vol] 108 mg/dL Normal [facility] Comment on above: Performed By: #### 1 1363, 45456, 00004, 8472, 47349, 498 #### [facility] [address], [address] [place] [address] Aed Trainer: Cody Spencer MD #### [id number] #### [facility]/[place] [address] [facility] [address] [place], [place] Aed Trainer: Jeremiah Holder M.D.,PhD #### [id number] #### [facility], [address] [place] [address] Aed Trainer: Bianka Brenner MD,PhD,HAMLET HEPATITIS B SURFACE ANTIGEN W/REFL CONFIRMon 11-25-2024 HEPATITIS B SURFACE ANTIGEN Non-Reactive Normal NON-REACTIVE [facility] Comment on above: Result Comment: For additional information, please refer to http://[employer].Creww/faq/AGU215 (This link is being provided for informational/ educational purposes only.) Performed By: #### 1 1363, 83413, 44000, 8472, 13434, 498 #### [facility] [address], [address] [place], [place] [address] Aed Trainer: Cody Spencer MD #### [id number] #### [facility]/[place] [address] [facility] [place], [place] Aed Trainer: Jeremiah Holdre M.D.,PhD #### [id number] #### [facility], [address] [place] Aed Trainer: Bianka Brenner MD,PhD,HAMLET HEPATITIS C AB W/REFL TO HCV RNA, QN, PCRon 11-25-2024 HEPATITIS C ANTIBODY Non-Reactive Normal NON-REACTIVE [facility] Comment on above: Result Comment: HCV antibody was non-reactive. There is no laboratory evidence of HCV infection. In most cases, no further action is required. However, if recent HCV exposure is suspected, a test for HCV RNA (test code 78039) is suggested. For additional information please refer to http://[employer].VocalIQ/faq/WWU72b6 (This link is being provided for informational/ educational purposes only.) Performed By: #### 1 1363, 92359, 18208, 8472, 55940, 498 #### [facility] [address], [address] [place] [address] Aed Trainer: Cody Spencer MD #### [id number] #### [facility] [address] [facility] [address] [place] Aed Trainer: Jeremiah Holder M.D.,PhD #### 94155 #### [facility]/[place] [facility], [address] [place] [address] Aed Trainer: Bianka Brenner MD,PhD,HAMLET HIV 1/2 ANTIGEN/ANTIBODY,FOU RTH [...] purpose. For additional information please refer to http://education.Creww/faq/MJZ476 (This link is being provided for informational/ educational purposes only.) The performance of this assay has not been clinically validated in patients less than 2 years old. Performed By: #### 1 1363, 41766, 09336, 8472, 17171, 498 #### [facility] [address], [address] [place] [address] Aed Trainer: Cody Spencer MD #### [id number] #### [facility]/[place] [facility] [address] [facility] [address] [place] Aed Trainer: Jeremiah Holder M.D.,PhD #### [id number] #### [facility], [address] [place], [place] Aed Trainer: Bianka Brenner MD,PhD,HAMLET SYPHILIS ANTIBODY CASCADING REFLEXon [...] is high. Performed By: #### 1 1363, 55664, 28030, 8472, 88923, 498 #### [facility] [address] [facility], [address] [place] [address] Aed Trainer: Cody Spencer MD #### [id number] #### [facility]/[place] [address] [facility] [place], [place] Aed Trainer: Jeremiah Holder M.D.,PhD #### 35691 #### [facility]/[address] [address] Aed Trainer: Bianka Brenner MD,PhD,HAMLET TSH W/REFLEX TO FT4on 2024 TSH W/REFLEX TO FT4 0.97 mIU/L Normal [facility] Comment on above: Result Comment: Refe rence Range > or = 20 Years 0.40-4.50 Ranges First trimester 0.26-2.66 Second trimester 0.55-2.73 Third trimester 0.43-2.91 Performed By: #### 1 1363, 04208, 92085, 8472, 30547, 498 #### [facility] [address] [facility], [address] [place] [address] Aed Trainer: Cody Spencer MD #### [id number] #### [facility]/[place] [address] [facility] [place], [place] Aed Trainer: Jeremiah Holder M.D.,PhD #### [id number] #### [facility]/[place] [facility], [address] [place] [address] Aed Trainer: Bianka Brenner MD,PhD,HAMLET No Panel Informationon 11-22 Henrietta Herndon MD 11/22/2024 10:18 AM Egg Retrieval Date/Time: 11/22/2024 10:15 AM Performed by: Henrietta Herndon MD Authorized by: Katelyn Benitez [facility] Consent: Consent obtained: Verbal and written [...] diagnosis: Female infertility Post op diagnosis: Same Steam Roller Operator: Leslie IV Fluids: 700 cc EBL: 5 cc UOP: Not recorded Specimen: Oocytes Complications: None Number of Oocytes right ovary: 14 Ovarian acc ss (right): Easy Number of Oocytes left ovary: 9 Ovarian access (left): Easy Endometrial thickness: TL Needle type: Single Additional notes: I was present and supervised the entire procedure. Henrietta Herndon 11/22/24 10:16 AM [facility] Work Phone: Blood type and Indirect anti body screen panel (Bld)on 11-21-2024 ABO group Nom (Bld) B Normal [facility] Comment on above: Performed By: #### 3 4532-2 ####MARIA E KAPADIA ([id number])[facility] ([facility])[address] [place] [address] Blood group antibody screen Ql Negative [facility] Comment on above: Performed By: #### 3 4532-2 ####MARIA E KAPADIA ([id number])[facility] [place] [address] [place] D Ag Ql (Bld) Positive [facility] Comment on above: Performed By: #### 3 4532-2 ####MARIA E KAPADIA ([id number])[facility] ([facility])[address] [place] [address] [place] Lutropinon 11-21-2024 Lutropin Qn 29.1 IU/L [facility] Comment on above: Result Comment: LH R eference Values Follicular Phase 1.5-10.0 Mid-Cycle 13.0-72.0 Luteal Phase 0.5-13.0 Menopause 15.0-65.0 Pre-puberty 0- 3.0 Children 0- 6.0 Adult Male 1.0- 9.0 Luteinizing Hormone is performed using the Елена [employer] Access Immunoassay. LH testing is performed using a different test methodology at [facility] than other physicians & surgeons hospital. Direct result comparison should only be made within the same method. Performed By: #### 2 243-4 #### MARIA E KAPADIA ([id number]) [facility] ([facility]) [address] [place] [address] Progesteroneon 11-21-2024 Progesterone [Mass/Vol] 5.4 ng/mL [facility] Comment on above: Order Comment: REF V ALUES FOLLICULAR PHASE 20-144 MID CYCLE 64-357 LUTEAL PHASE 56-214 POSTMENOPAUSE < 32 PREPUBERTY < 20 FEMALE 10-18Y 8-110 MALE 10-18Y < 20 ADULT MALE < 40 Performed By: #### 2 243-4 #### MARIA E KAPADIA ([id number]) [facility] ([facility]) [address] [place] [address] Estradiolon 11-20-2024 E2 [Mass/Vol] 5336 pg/mL [facility] Comment on above: Order Comment: REF V ALUES FOLLICULAR PHASE 20-144 MID CYCLE 64-357 LUTEAL PHASE 56-214 POSTMENOPAUSE < 32 PREPUBERTY < 20 FEMALE 10-18Y 8-110 MALE 10-18Y < 20 ADULT MALE < 40 Performed By: #### 2 243-4 #### MARIA E KAPADIA ([id number]) [facility] ([facility]) [address] [place] [address] Follicle Diameter USon 11-20 Follicle scan perfor med with follicle measurements in report. Trilaminar appearance to the endometrium is noted. Free fluid is noted in the cul de sac. RIS SECTRA ONLY [facility] Work Phone: Radiology Study observation (narrative) [facility] Work Phone: Progesteroneon 11-20-2024 Progesterone [Mass/Vol] 1.8 ng/mL Normal [facility] Comment on above: Order Comment: REF V ALUES FOLLICULAR PHASE 20-144 MID CYCLE 64-357 LUTEAL PHASE 56-214 POSTMENOPAUSE < 32 PREPUBERTY < 20 FEMALE 10-18Y 8-110 MALE 10-18Y < 20 ADULT MALE < 40 Performed By: #### 2 243-4 #### MARIA E KAPADIA ([id number]) [facility] ([facility]) [address] [place] [phone] [facility] US PELVIS LIMITED FOLLIC LES-FOLLICLE STUDIES PERFORMEDon 11-20-2024 [facility] US PELVIS LIMITED FOLLICLES-FOLLICLE STUDIES PERFORMED Follicle scan performed with follicle measurements in report. Trilaminar appearance to the endometrium is noted. Free fluid is noted in the cul de sac. Normal [facility] Estradiolon 11-18-2024 E2 [Mass/Vol] 2969 pg/mL Normal [facility] Comment on above: Order Comment: REF V ALUES FOLLICULAR PHASE 20-144 MID CYCLE 64-357 LUTEAL PHASE 56-214 POSTMENOPAUSE < 32 PREPUBERTY < 20 FEMALE 10-18Y 8-110 MALE 10-18Y < 20 ADULT MALE < 40 Performed By: #### 2 243-4 #### MARIA E KAPADIA ([id number]) [facility] ([facility]) [address] [place] [phone] Follicle Diameter USon 11-18 Follicle scan perfor med with follicle measurements in report. RIS SECTRA ONLY [facility] Work Phone: Radiology Study observation (narrative) [facility] Work Phone: Progesteroneon 11-18-2024 Progesterone [Mass/Vol] 0.9 ng/mL Normal [facility] Comment on above: Order Comment: REF V ALUES FOLLICULAR PHASE 20-144 MID CYCLE 64-357 LUTEAL PHASE 56-214 POSTMENOPAUSE < 32 PREPUBERTY < 20 FEMALE 10-18Y 8-110 MALE 10-18Y < 20 ADULT MALE < 40 Performed By: #### 2 243-4 #### MARIA E KAPADIA ([id number]) [facility] ([facility]) [address] [place] [address] [facility] US PELVIS LIMITED FOLLIC LES-FOLLICLE STUDIES PERFORMEDon 11-18-2024 [facility] US PELVIS LIMITED FOLLICLES-FOLLICLE STUDIES PERFORMED Follicle scan performed with follicle measurements in report. Normal [facility] Estradiolon 11-16-2024 E2 [Mass/Vol] 1058 pg/mL Normal [facility] Comment on above: Order Comment: REF V ALUES FOLLICULAR PHASE 20-144 MID CYCLE 64-357 LUTEAL PHASE 56-214 POSTMENOPAUSE < 32 PREPUBERTY < 20 FEMALE 10-18Y 8-110 MALE 10-18Y < 20 ADULT MALE < 40 Performed By: #### 2 243-4 #### MARIA E KAPADIA ([id number]) [facility] ([facility]) [address] [place] [phone] Follicle Diameter USon 11-16 Follicle scan perfor med with follicle measurements in report. Trilaminar appearance to the endometrium is noted. RIS SECTRA ONLY [facility] Work Phone: Radiology Study observation (narrative) [facility] Work Phone: TERRENCE US PELVIS LIMITED FOLLIC LES-FOLLICLE STUDIES PERFORMEDon 11-16-2024 [facility] US PELVIS LIMITED FOLLICLES-FOLLICLE STUDIES PERFORMED Follicle scan performed with follicle measurements in report. Trilaminar appearance to the endometrium is noted. Normal [facility] Estradiolon 11-14-2024 E2 [Mass/Vol] 488 pg/mL [facility] Comment on above: Order Comment: REF V ALUES FOLLICULAR PHASE 20-144 MID CYCLE 64-357 LUTEAL PHASE 56-214 POSTMENOPAUSE < 32 PREPUBERTY < 20 FEMALE 10-18Y 8-110 MALE 10-18Y < 20 ADULT MALE < 40 Performed By: #### 2 243-4 #### MARIA E KAPADIA ([id number]) [facility] ([facility]) [address] [place] [address] Follicle Diameter USon 11-14 Follicle scan perfor [facility] with follicle measurements in report. Trilaminar appearance to the endometrium is not noted. Free fluid is noted in the cul de sac. RIS SECTRA ONLY [facility] Work Phone: Radiology Study observation (narrative) [facility] Work Phone: [facility] US PELVIS LIMITED FOLLIC LES-FOLLICLE STUDIES PERFORMEDon 11-14-2024 [facility] US PELVIS LIMITED FOLLICLES-FOLLICLE STUDIES PERFORMED Follicle scan performed with follicle measurements in report. Trilaminar appearance to the endometrium is not noted. Free fluid is noted in the cul de sac. Normal [facility] CBC panel Auto (Bld)on 11-08 Erythrocyte distribution width (RBC) [Ratio] 12.0 % Normal 11.5-14.5 [facility] Comment on above: Performed By: #### 2 243-4 #### MARIA E KAPADIA ([id number]) [facility] ([facility]) [address] [place] [address] Hematocrit (Bld) [Volume fraction] 35.3 % Low 36.0-46.0 [facility] Comment on above: Performed By: #### 2 243-4 #### MARIA E KAPADIA ([id number]) [facility] ([facility]) [address] [place] [phone] Hemoglobin (Bld) [Mass/Vol] 11.4 g/dL Low 12.0-16.0 [facility] Comment on above: Performed By: #### 2 243-4 #### MARIA E KAPADIA ([id number]) [facility] ([facility]) [address] [place] [phone] MCH (RBC) [Entitic mass] 29.3 pg Normal 26.0-34.0 [facility] Comment on above: Performed By: #### 2 243-4 #### MARIA E KAPADIA ([id number]) [facility] ([facility]) [address] [place] [address] MCHC (RBC) [Mass/Vol] 32.3 g/dL Normal 32.0-36.0 [facility] Comment on above: Performed By: #### 2 243-4 #### MARIA E KAPADIA ([id number]) [facility] ([facility]) [address] [place] [address] MCV (RBC) [Entitic vol] 91 fL Normal 80-100 [facility] Comment on above: Performed By: #### 2 243-4 #### MARIA E KAPADIA ([id number]) [facility] ([facility]) [address] [place] [address] Nucleated RBC/100 WBC (Bld) [Ratio] 0.0 /100 WBCs Normal 0.0-0.0 [facility] Comment on above: Performed By: #### 2 243-4 #### MARIA E KAPADIA ([id number]) [facility] ([facility]) [address] [place] [address] Platelets (Bld) [#/Vol] 326 x10*3/uL Normal 150-450 [facility] Comment on above: Performed By: #### 2 243-4 #### MARIA E KAPADIA ([id number]) [facility] ([facility]) [address] [place] [address] RBC (Bld) [#/Vol] 3.89 x10*6/uL Low 4.00-5.[address] [facility] Comment on above: Performed By: #### 2 243-4 #### MARIA E KAPADIA ([id number]) [facility] ([facility]) [address] [place] [address] WBC (Bld) [#/Vol] 5.2 x10*3/uL Normal 4.4-11.3 [facility] Comment on above: Performed By: #### 2 243-4 #### MARIA E KAPADIA ([id number]) [facility] ([facility]) [address] [place] [address] Estradiolon 11-08-2024 E2 [Mass/Vol] 43 pg/mL Normal [facility] Comment on above: Order Comment: REF V ALUES FOLLICULAR PHASE 20-144 MID CYCLE 64-357 LUTEAL PHASE 56-214 POSTMENOPAUSE < 32 PREPUBERTY < 20 FEMALE 10-18Y 8-110 MALE 10-18Y < 20 ADULT MALE < 40 Performed By: #### 2 243-4 #### MARIA E LI ([id number]) [facility] ([facility]) [address] [place] [address] Follicle Diameter USon 11-08 Follicle scan perfor med with follicle measurements in report., Trilaminar appearance to the endometrium is noted., and Free fluid is noted in the cul de sac. RIS SECTRA ONLY Radiology Study observation (narrative) [facility] Work Phone: Follicle Diameter USOrdered By: Henrietta Herndon on 11-08-2024 [facility] Work Phone: [facility] US PELVIS LIMITED FOLLIC LES-FOLLICLE STUDIES PERFORMEDon 11-08-2024 [facility] US PELVIS LIMITED FOLLICLES-FOLLICLE STUDIES PERFORMED Follicle scan performed with follicle measurements in report., Trilaminar appearance to the endometrium is noted., and Free fluid is noted in the cul de sac. [facility] No Panel Informationon 10-11 Henrietta Herndon MD 10/11/2024 9:48 AM Egg Retrieval Date/Time: 10/11/2024 9:41 AM Performed by: Henrietta Herndon MD Authorized by: Katelyn Benitez APRN-[facility] Consent: Consent obtained: Verbal and written Consent [...] diagnosis: Female infertility Post op diagnosis: Same Steam Roller Operator: Manvelyan IV Fluids: 300 cc EBL: 5 cc UOP: Not recorded Specimen: Oocytes Complications: None Number of Oocytes right ovary: 16 Ovarian access (right): Easy Number of Oocytes left ovary: 9 Ovarian access (left): Easy Endometrial thickness: Tl Needle type: Single Additional notes: I was present and supervised the entire procedure. Henrietta Das [place]ia 10/11/24 9:42 AM [facility] Work Phone: Lutropinon 10-10-2024 Lutropin Qn 42.5 IU/L [facility] Comment on above: Result Comment: LH R eference Values Follicular Phase 1.5-10.0 Mid-Cycle 13.0-72.0 Luteal Phase 0.5-13.0 Menopause 15.0-65.0 Pre-puberty 0- 3.0 Children 0- 6.0 Adult Male 1.0- 9.0 Luteinizing Hormone is performed using the [employer] Access Immunoassay. LH testing is performed using a different test methodology at [facility] than other [facility] surgeons hospital. Direct result comparison should only be made within the same method. Performed By: #### 2 243-4 #### MARIA E KAPADIA ([id number]) [facility] ([facility]) [address] [place] [address] Progesteroneon 10-10-2024 Progesterone [Mass/Vol] 5.0 ng/mL [facility] Comment on above: Order Comment: REF V ALUES FOLLICULAR PHASE 20-144 MID CYCLE 64-357 LUTEAL PHASE 56-214 POSTMENOPAUSE < 32 PREPUBERTY < 20 FEMALE 10-18Y 8-110 MALE 10-18Y < 20 ADULT MALE < 40 Performed By: #### 2 243-4 #### MARIA E KAPADIA ([id number]) [facility] ([facility]) [facility] [place] [address] Estradiolon 10-09-2024 E2 [Mass/Vol] 7372 pg/mL [facility] Comment on above: Order Comment: REF V ALUES FOLLICULAR PHASE 20-144 MID CYCLE 64-357 LUTEAL PHASE 56-214 POSTMENOPAUSE < 32 PREPUBERTY < 20 FEMALE 10-18Y 8-110 MALE 10-18Y < 20 ADULT MALE < 40 Estradiol measurement is performed using the Елена Luis Access Estradiol Immunoassay. Estradiol testing is performed using a different test methodology at [facility] than other [facility] surgeons hospital. Direct result comparison should only be made within the same method. Performed By: #### 2 243-4 #### MARIA E KAPADIA ([id number]) [facility] ([facility]) [address] [place] [address] Progesteroneon 10-09-2024 Progesterone [Mass/Vol] 1.3 ng/mL [facility] Comment on above: Order Comment: REF V ALUES Male <0.2-0.8 Follicular Phase <0.2-1.5 Luteal Phase 7.4-15.4 Post Menopausal <0.2-0.2 1ST Trimester 12.0-84.0 2ND Trimester 10.2-58.8 3RD Trimester 46.5-160 Progesterone is performed using the Елена [place] Access Immunoassay. Progesterone testing is performed using a different test methodology at [facility] than other [facility] hospital. Direct result comparison should only be made within the same method. Performed By: #### 2 839-9 #### MARIA E KAPADIA ([id number]) [facility] ([facility]) [address] [place] [address] [facility] US PELVIS LIMITED FOLLIC LES-FOLLICLE STUDIES PERFORMEDon 10-09-2024 [facility] US PELVIS LIMITED FOLLICLES-FOLLICLE STUDIES PERFORMED Follicle scan performed with follicle measurements in report. Normal [facility] Estradiolon 10-08-2024 E2 [Mass/Vol] 4637 pg/mL [facility] Comment on above: Order Comment: REF V ALUES FOLLICULAR PHASE 20-144 MID CYCLE 64-357 LUTEAL PHASE 56-214 POSTMENOPAUSE < 32 PREPUBERTY < 20 FEMALE 10-18Y 8-110 MALE 10-18Y < 20 ADULT MALE < 40 Estradiol measurement is performed using the Елена [place] Access Estradiol Immunoassay. Estradiol testing is performed using a different test methodology at [facility] than other [facility]. Direct result comparison should only be made within the same method. Performed By: #### 2 243-4 #### MARIA E KAPADIA ([id number]) [facility] ([facility]) [address] [place] [address] Follicle Diameter USon 10-08 Follicle scan perfor med with follicle measurements in report. RIS SECTRA ONLY Radiology Study observation (narrative) [facility] Work Phone: Follicle Diameter USOrdered By: Gavino Tristan on 10-08-2024 [facility] Work Phone: Progesteroneon 10-08-2024 Progesterone [Mass/Vol] 0.9 ng/mL Normal [facility] Comment on above: Order Comment: REF V ALUES Male <0.2-0.8 Follicular Phase <0.2-1.5 Luteal Phase 7.4-15.4 Post Menopausal <0.2-0.2 1ST Trimester 12.0-84.0 2ND Trimester 10.2-58.8 3RD Trimester 46.5-160 Progesterone is performed using the Елена [employer] Access Immunoassay. Progesterone testing is performed using a different test methodology at [facility] than other [facility]. Direct result comparison should only be made within the same method. Performed By: #### 2 839-9 #### MARIA E KAPADIA ([id number]) [facility] ([facility]) [address] [place] [phone] [facility] US PELVIS LIMITED FOLLIC LES-FOLLICLE STUDIES PERFORMEDon 10-08-2024 [facility] US PELVIS LIMITED FOLLICLES-FOLLICLE STUDIES PERFORMED Follicle scan performed with follicle measurements in report. Normal [facility] Estradiolon 10-07-2024 E2 [Mass/Vol] 4276 pg/mL Normal [facility] Comment on above: Order Comment: REF V ALUES FOLLICULAR PHASE 20-144 MID CYCLE 64-357 LUTEAL PHASE 56-214 POSTMENOPAUSE < 32 PREPUBERTY < 20 FEMALE 10-18Y 8-110 MALE 10-18Y < 20 ADULT MALE < 40 Estradiol measurement is performed using the Елена [employer] Access Estradiol Immunoassay. Estradiol testing is performed using a different test methodology at [facility] than other [facility]. Direct result comparison should only be made within the same method. Performed By: #### 2 243-4 #### MARIA E KAPADIA ([id number]) [facility] ([facility]) [address] [place] [address] Follicle Diameter USon 10-07 Follicle scan perfor med with follicle measurements in report. RIS SECTRA ONLY Radiology Study observation (narrative) [facility] Work Phone: Follicle Diameter USOrdered By: Gavino Tristan on 10-07-2024 [facility] Work Phone: Progesteroneon 10-07-2024 Progesterone [Mass/Vol] 0.8 ng/mL Normal [facility] Comment on above: Order Comment: REF V ALUES Male <0.2-0.8 Follicular Phase <0.2-1.5 Luteal Phase 7.4-15.4 Post Menopausal <0.2-0.2 1ST Trimester 12.0-84.0 2ND Trimester 10.2-58.8 3RD Trimester 46.5-160 Progesterone is performed using the KargoCard Access Immunoassay. Progesterone testing is performed using a different test methodology at [facility] than other physicians & surgeons hospital. Direct result comparison should only be made within the same method. Performed By: #### 2 839-9 #### MARIA E KAPADIA ([id number]) [facility] ([facility]) [address] [id number] [facility] US PELVIS LIMITED FOLLIC LES-FOLLICLE STUDIES PERFORMEDon 10-07-2024 [facility] US PELVIS LIMITED FOLLICLES-FOLLICLE STUDIES PERFORMED Follicle scan performed with follicle measurements in report. Normal [facility] Estradiolon 10-05-2024 E2 [Mass/Vol] 1290 pg/mL Normal [facility] Comment on above: Order Comment: REF V ALUES FOLLICULAR PHASE 20-144 MID CYCLE 64-357 LUTEAL PHASE 56-214 POSTMENOPAUSE < 32 PREPUBERTY < 20 FEMALE 10-18Y 8-110 MALE 10-18Y < 20 ADULT MALE < 40 Performed By: #### 2 243-4 #### MARIA E KAPADIA ([id number]) [facility] ([facility]) [address] [place] [address] Follicle Diameter USon 10-05 Follicle scan perfor med with follicle measurements in report. Trilaminar appearance to the endometrium is noted. RIS SECTRA ONLY [facility] Work Phone: Radiology Study observation (narrative) [facility] Work Phone: [facility] US PELVIS LIMITED FOLLIC LES-FOLLICLE STUDIES PERFORMEDon 10-05-2024 [facility] US PELVIS LIMITED FOLLICLES-FOLLICLE STUDIES PERFORMED Follicle scan performed with follicle measurements in report. Trilaminar appearance to the endometrium is noted. Normal [facility] Estradiolon 10-03-2024 E2 [Mass/Vol] 479 pg/mL Normal [facility] Comment on above: Order Comment: REF V ALUES FOLLICULAR PHASE 20-144 MID CYCLE 64-357 LUTEAL PHASE 56-214 POSTMENOPAUSE < 32 PREPUBERTY < 20 FEMALE 10-18Y 8-110 MALE 10-18Y < 20 ADULT MALE < 40 Performed By: #### 2 243-4 #### MARIA E KAPADIA ([id number]) [facility] ([facility]) [address] [place] [address] [facility] US PELVIS LIMITED FOLLIC LES-FOLLICLE STUDIES PERFORMEDon 10-03-2024 [facility] US PELVIS LIMITED FOLLICLES-FOLLICLE STUDIES PERFORMED Follicle scan performed with follicle measurements in report., Trilaminar appearance to the endometrium is noted., and Free fluid is noted in the cul de sac. Normal [facility] CBC panel Auto (Bld)on 09-27 Erythrocyte distribution width (RBC) [Ratio] 12.3 % Normal 11.5-14.5 [facility] Comment on above: Performed By: #### 5 8410-2 #### MARIA E KAPADIA ([id number]) [facility] ([facility]) [address] [id number] Hematocrit (Bld) [Volume fraction] 34.4 % Low 36.0-46.0 [facility] Comment on above: Performed By: #### 5 8410-2 #### MARIA E KAPADIA ([id number]) [facility] ([facility]) [address] [place] [address] Hemoglobin (Bld) [Mass/Vol] 11.4 g/dL Low 12.0-16.0 [facility] Comment on above: Performed By: #### 5 8410-2 #### MARIA E KAPADIA ([id number]) [facility] ([facility]) [address] [place] [address] MCH (RBC) [Entitic mass] 29.7 pg Normal 26.0-34.0 [facility] Comment on above: Performed By: #### 5 8410-2 #### MARIA E KAPADIA ([id number]) [facility] ([facility]) [address] [place] [address] MCHC (RBC) [Mass/Vol] 33.1 g/dL Normal 32.0-36.0 [facility] Comment on above: Performed By: #### 5 8410-2 #### MARIA E KAPADIA ([id number]) [facility] ([facility]) [address] [place] [address] MCV (RBC) [Entitic vol] 90 fL Normal 80-100 [facility] Comment on above: Performed By: #### 5 8410-2 #### MARIA E KAPADIA ([id number]) [facility] ([facility]) [address] [place] [address] Nucleated RBC/100 WBC (Bld) [Ratio] 0.0 /100 WBCs Normal 0.0-0.0 [facility] Comment on above: Performed By: #### 5 8410-2 #### MARIA E KAPADIA ([id number]) [facility] ([facility]) [address] [place] [address] Platelets (Bld) [#/Vol] 334 x10*3/uL Normal 150-450 [facility] Comment on above: Performed By: #### 5 8410-2 #### MARIA E KAPADIA ([id number]) [facility] ([facility]) [address] [place] [address] RBC (Bld) [#/Vol] 3.84 x10*6/uL Low 4.00-5.[address] [facility] Comment on above: Performed By: #### 5 8410-2 #### MARIA E KAPADIA ([id number]) [facility] ([facility]) [address] [place] [address] WBC (Bld) [#/Vol] 5.7 x10*3/uL Normal 4.4-11.3 [facility] Comment on above: Performed By: #### 5 8410-2 #### MARIA E KAPADIA ([id number]) [facility] ([facility]) [address] [place] [address] Estradiolon 09-27-2024 E2 [Mass/Vol] pg/mL Normal [facility] Comment on above: Order Comment: REF V ASIF FOLLICULAR PHASE 20-144 MID CYCLE 64-357 LUTEAL PHASE 56-214 POSTMENOPAUSE < 32 PREPUBERTY < 20 FEMALE 10-18Y 8-110 MALE 10-18Y < 20 ADULT MALE < 40 Performed By: #### 2 243-4 #### MARIA E STEFFI ([id number]) [facility] ([facility]) [address] [place] [address] [place] US PELVIS LIMITED FOLLIC LES-FOLLICLE STUDIES PERFORMEDon 09-27-2024 [facility] US PELVIS LIMITED FOLLICLES-FOLLICLE STUDIES PERFORMED Follicle scan performed with follicle measurements in report. and Trilaminar appearance to the endometrium is not noted. Normal [facility] HCG ( test) Ql (U)O rdered By: Sydney Grier on 08-14-2024 Preg Test, Ur Negative Negative [facility] No Panel InformationOrdered By: Sydney Grier on 08-14-2024 [facility] No Panel Informationon 08-14 Hilary Holder MD 08/14/2024 11:03 AM Hysteroscopy diagnostic Date/Time: 08/14/2024 11:02 AM Performed by: Hilary Holder MD Authorized by: Imelda Pollard MD Consent: Consent obtained: Verbal and written Consent given by: Patient Risks, benefits, and alternatives were discussed: yes Risks discussed: Bleeding, infection and pain [place] protocol: Procedure explained and questions answered to [...] diagnosis: fertility testing Post op diagnosis: Same Steam Roller Operator: Fellow Anesthesia: None IV: None EBL: 3 [...] well, no immediate complications [facility] RIS Irrigation Technician Office Visit Reporton 07-12-2024 Irrigation Technician Office Visit Report [facility] [address], [address] [place] [address] OFFICE VISIT Date of Service: 07/12/24 MR#: [id number] Acct: [id number] Name: MARIXA AMOS Rep #: [id number] : 1995 Provider: DERRICK joshua Age/Sex: 29/F Location: [facility] [place] Status: Signed Intake Vital Signs 06/29/24 12:57 07/12/24 08:25 07/12/24 08:32 Height 5 ft 3 in 5 ft 3 in 5 ft 3 in Weight: 182 lb 184 lb 4 oz BMI 32.2 32.6 BP 126/74 H 122/74 H Pulse 70 Intake Visit Reasons: fertility consult Chief Complaint: Fertility consult Personal Development Educator Required: No Is patient in pain?: No [...] 07/12/24 History mcg (2,500 unit) capsule omega 6-vxo-ntq-fish oil 300 1 cap PO QDAY 07/12/24 07/12/24 History mg-1,000 mg capsule (Fish Oil) Is last menstrual period known: Yes Last Menstrual Period: 07/12/24 Post menopausal: No Patient : No : No PFSH Medical History (Updated 07/12/24 @ 10:30 by Jesika Farrar DIRECTOR PHARMACOVIGILANCE, DIRECTOR PHARMACOVIGILANCE-C) Endometriosis Low iron Anemia Latent tuberculosis Ulcerative [...] HSG with exp lap in 07/2023 at [facility] and told endometriosis. She failed letrozole and IUI at another provider. SA normal. She has appt in [place] 08/03 at for infertility discussion. She just [...] Marte Signature: Date (if applicable) CC: Normal [facility] Irrigation Technician Office Visit Reporton 06-29-2024 Irrigation Technician Office Visit Report [facility] [address], [address] [place] [address] OFFICE VISIT Date of Service: 06/29/24 MR#: [id number] Acct: [id number] Name: MARIXA AMOS Rep #: [id number] : 1995 Provider: DERRICK Hyman Age/Sex: 28/F Location: [facility] Status: Signed Intake Vital Signs 06/01/24 09:21 06/29/24 12:57 Height 5 ft 3 in 5 ft 3 in Weight: 183 lb 2 oz 182 lb BMI 32.4 32.2 BP 139/76 H 126/74 H Pulse 83 70 Intake Visit Reasons: 4 WK WM Chief Complaint: med check Personal Development Educator Required: No Is patient in pain?: No [...] Rx capsule,delayed,extended release Last Menstrual Period: 04/29/24 [facility] Medical History Endometriosis Low iron Anemia [...] Nutrition plan: Balanced calorie restricted nutritional plan [id number] mario. Myfitnesspal tracking. (more content not included)... Normal [facility] PROGESTERONE 4317on 06-25-20 PROGESTERONE 0.3 ng/mL Normal . [facility] Comment on above: Order Comment: N day 21 lab Result Comment: Foll icular phase 0.1 - 0.9 Luteal phase 1.8 - 23.9 Ovulation phase 0.1 - 12.0 First trimester 11.0 - 44.3 Second trimester 25.4 - 83.3 Third trimester 58.7 - 214.0 Postmenopausal 0.0 - 0.1 Performed at: [facility] [id number] Human Geography Instructor: Almas Saavedra PhD, Phone: [phone] Performed By: #### L 198.7021 #### [facility] [address] [place], [address] Comprehensive Metabolic Prof ilon 06-24-2024 Albumin [Mass/Vol] 3.9 g/dL Normal 3.2-5.0 [facility] Comment on above: Performed By: #### L 500.4050 ####[facility] [address] [place], [address] Albumin/Globulin [Mass ratio] 1.1 {ratio} Normal 0.9-2.4 [facility] Comment on above: Performed By: #### L 500.4050 ####[facility] [address] [place], [address] ALK P 59 U/L Normal 45-117 [facility] Comment on above: Performed By: #### L 500.4050 ####[facility] [address] [place], [address] ALT [Catalytic activity/Vol] 32 U/L Normal 13-56 [facility] Comment on above: Performed By: #### L 500.4050 ####[facility] [address] [place], [address] AST [Catalytic activity/Vol] 15 U/L Normal 15-37 [facility] Comment on above: Performed By: #### L 500.4050 ####[facility] [address] [place], [address] Bilirubin [Mass/Vol] 0.40 mg/dL Normal 0.20-1.00 [facility] Comment on above: Result Comment: For patients on eltrombopag therapy, use of Dimension [place] TBIL is not recommended. Performed By: #### L 500.4050 ####[facility] [address] [place], [address] BUN/CRE 15.6 RATIO Normal 10-20 [facility] Comment on above: Performed By: #### L 500.4050 ####[facility] [address] [place], [address] CA,Total 9.4 mg/dL Normal 8.5-10.1 [facility] Comment on above: Performed By: #### L 500.4050 ####[facility] [address] [place], [address] Chloride [Moles/Vol] 106 mmol/L Normal 98-107 [facility] Comment on above: Performed By: #### L 500.4050 ####[facility] [address] [place], [address] CO2 [Moles/Vol] 26.0 mmol/L Normal 21.0-32.0 [facility] Comment on above: Performed By: #### L 500.4050 ####[facility] [address] [place], [address] Creatinine [Mass/Vol] 0.71 mg/dL Normal 0.55-1.02 [facility] Comment on above: Result Comment: The validity of the calculated GFR GFRAA in patients over 70 years has not been determined. Clinical correlation is essential. Performed By: #### L 500.4050 ####[facility] [address] [place], [address] EST GFR - AA 125 mL/min Normal >60 [facility] Comment on above: Result Comment: Afri can [place]adian GFR Calc Performed By: #### L 500.4050 ####[facility] [address] [place], [address] GAP 4 Low 5-15 [facility] Comment on above: Performed By: #### L 500.4050 ####[facility] [address] [place], [address] GFR/1.73 sq M.predicted among non-blacks MDRD (S/P/Bld) [Vol rate/Area] 103 mL/min/{1.73_m2} Normal >60 [facility] Comment on above: Result Comment: Non- GFR Calc Performed By: #### L 500.4050 ####[facility] [address] [place], [address] Globulin (S) [Mass/Vol] 3.7 g/dL Normal 2.2-4.2 [facility] Comment on above: Performed By: #### L 500.4050 ####[facility] [address] [place], [address] Glucose [Mass/Vol] 96 mg/dL Normal 74-106 [facility] Comment on above: Performed By: #### L 500.4050 ####[facility] [address] [place], [address] Potassium [Moles/Vol] 4.1 mmol/L Normal 3.5-5.1 [facility] Comment on above: Performed By: #### L 500.4050 ####[facility] [address] [place], [address] Sodium [Moles/Vol] 136 mmol/L Normal 136-145 [facility] Comment on above: Performed By: #### L 500.4050 ####[facility] [address] [place], [address] T PROT 7.6 g/dL Normal 6.4-8.2 [facility] Comment on above: Performed By: #### L 500.4050 ####[facility] [address] [place], [address] Urea nitrogen [Mass/Vol] 11 mg/dL Normal 7-18 [facility] Comment on above: Performed By: #### L 500.4050 ####[facility] [address] [place], [address] Irrigation Technician Office Visit Reporton 06-01-2024 Irrigation Technician Office Visit Report [facility] [address], [address] [place] [address] OFFICE VISIT Date of Service: 06/01/24 MR#: [id number] Acct: [id number] Name: MARIXA AMOS Rep #: [id number] : 1995 Provider: DERRICK Hyman Age/Sex: 28/F Location: [facility] [facility] Status: Signed Intake Vital Signs 05/04/24 10:42 06/01/24 09:21 Height 5 ft 3 in 5 ft 3 in Weight: 183 lb 2 oz BMI 32.4 BP 139/76 H Pulse 83 Intake Visit Reasons: 4 w fu Chief Complaint: weight management Personal Development Educator Required: No Is patient in pain?: No [...] at t (more content not included)... Normal [facility] 12 Lead EKGon 05-26-2024 12 Lead EKG [facility] [address] [place] [address] 12 Lead EKG 05/26/24 0850 MR#: [id number] Acct: [id number] Name: MARIXA AMOS Rep #: [id number] : 1995 28 From: Yosi Narayan MD Attending Dr: Renetta Cha NP-C Status: REG CLI Ordering Dr: Renetta Cha DIRECTOR PHARMACOVIGILANCE-C Date: 05/26/24 Location: PSN Sex: F C [...] ECG Confirmed by SUNIL BLANCO, YOSI ([id number]), editor in chief LUIS QUIGLEY ([id number]) on 05/26/2024 2:53:52 PM Referred By: Renetta Cha Confirmed By:YOSI NARAYAN MD 05/26/24 1453 Date Yosi Narayan MD CC: DIRECTOR PHARMACOVIGILANCE-C Renetta Cha; CATRACHITO MERCEDES Signed Normal [facility] CBC W/Diff, Automatedon 09--2023 Absolute Lymph 2.02 X10 3/uL Normal 0.83-4.51 [facility] Comment on above: Performed By: #### L 506.1000, L500.4050, L506.0400, L501.9985, L100.0100, L501.9520 #### [facility] [address] [place], [address] Absolute Neut 3.2 X10 3/uL Normal 2.0-7.7 [facility] Comment on above: Performed By: #### L 506.1000, L500.4050, L506.0400, L501.9985, L100.0100, L501.9520 #### [facility] [address] [place], [address] Basophils/100 WBC (Bld) 0.7 % Normal 0-1 [facility] Comment on above: Performed By: #### L 506.1000, L500.4050, L506.0400, L501.9985, L100.0100, L501.9520 #### [facility] [address] [place], [address] Eosinophils/100 WBC (Bld) 1.6 % Normal 0-5 [facility] Comment on above: Performed By: #### L 506.1000, L500.4050, L506.0400, L501.9985, L100.0100, L501.9520 #### [facility] [address] [place], [address] Erythrocyte distribution width (RBC) [Ratio] 12.3 % Normal 11.6-14.6 [facility] Comment on above: Performed By: #### L 506.1000, L500.4050, L506.0400, L501.9985, L100.0100, L501.9520 #### [facility] [address] [place], [address] Hematocrit (Bld) [Volume fraction] 37.4 % Normal 37-47 [facility] Comment on above: Performed By: #### L 506.1000, L500.4050, L506.0400, L501.9985, L100.0100, L501.9520 #### [facility] [address] [place], [address] Hemoglobin (Bld) [Mass/Vol] 12.2 g/dL Normal 12.0-15.0 [facility] Comment on above: Performed By: #### L 506.1000, L500.4050, L506.0400, L501.9985, L100.0100, L501.9520 #### [facility] [address] [place], [address] IG% 0.200 Normal 0.0-0.9 [facility] Comment on above: Result Comment: IG% - Immature Granulocytes (promyelocytes, myelocytes and metamyelocytes) > 1% indicates that a LEFT SHIFT is Present. Performed By: #### L 506.1000, L500.4050, L506.0400, L501.9985, L100.0100, L501.9520 #### [facility] [address] [place], [address] Lymphocytes/100 WBC (Bld) 34.9 % Normal 19-41 [facility] Comment on above: Performed By: #### L 506.1000, L500.4050, L506.0400, L501.9985, L100.0100, L501.9520 #### [facility] [address] [place], [address] MCH (RBC) [Entitic mass] 29.9 pg Normal 27.0-32.0 [facility] Comment on above: Performed By: #### L 506.1000, L500.4050, L506.0400, L501.9985, L100.0100, L501.9520 #### [facility] [address] [place], [address] MCHC (RBC) [Mass/Vol] 32.6 g/dL Normal 32-36 [facility] Comment on above: Performed By: #### L 506.1000, L500.4050, L506.0400, L501.9985, L100.0100, L501.9520 #### [facility] [address] [place], [address] MCV (RBC) [Entitic vol] 91.7 fL Normal 81-99 [facility] Comment on above: Performed By: #### L 506.1000, L500.4050, L506.0400, L501.9985, L100.0100, L501.9520 #### [facility] [address] [place], [address] Monocytes/100 WBC (Bld) 7.1 % Normal 0-10 [facility] Comment on above: Performed By: #### L 506.1000, L500.4050, L506.0400, L501.9985, L100.0100, L501.9520 #### [facility] [address] [place], [address] Neutrophils/100 WBC (Bld) 55.5 % Normal 47-70 [facility] Comment on above: Performed By: #### L 506.1000, L500.4050, L506.0400, L501.9985, L100.0100, L501.9520 #### [facility] [address] [place], [address] Nucleated RBC (Bld) [#/Vol] 0 10*3/uL Normal 0-5 [facility] Comment on above: Performed By: #### L 506.1000, L500.4050, L506.0400, L501.9985, L100.0100, L501.9520 #### [facility] [address] [place], [address] Platelet mean volume (Bld) [Entitic vol] 10.0 fL Normal 6.2-12.0 [facility] Comment on above: Performed By: #### L 506.1000, L500.4050, L506.0400, L501.9985, L100.0100, L501.9520 #### [facility] [address] [place], [address] Platelets (Bld) [#/Vol] 337 10*3/uL Normal 150-450 [facility] Comment on above: Performed By: #### L 506.1000, L500.4050, L506.0400, L501.9985, L100.0100, L501.9520 #### [facility] [address] [place], [address] RBC (Bld) [#/Vol] 4.08 10*6/uL Low 4.2-5.4 [facility] Comment on above: Performed By: #### L 506.1000, L500.4050, L506.0400, L501.9985, L100.0100, L501.9520 #### [facility] [address] [place], [address] RDW SD 41.5 fl Normal 35.1-43.9 [facility] Comment on above: Performed By: #### L 506.1000, L500.4050, L506.0400, L501.9985, L100.0100, L501.9520 #### [facility] [address] [place], [address] WBC (Bld) [#/Vol] 5.8 10*3/uL Normal 4.4-11.0 [facility] Comment on above: Performed By: #### L 506.1000, L500.4050, L506.0400, L501.9985, L100.0100, L501.9520 #### [facility] [address] [place], [address] [facility] 05-04-2024 Albumin [Mass/Vol] 4.3 g/dL Normal 3.2-5.0 [facility] Comment on above: Performed By: #### L 506.1000, L500.4050, L506.0400, L501.9985, L100.0100, L501.9520 ####[facility] [address] [place], [address] Albumin/Globulin [Mass ratio] 1.1 {ratio} Normal 0.9-2.4 [facility] Comment on above: Performed By: #### L 506.1000, L500.4050, L506.0400, L501.9985, L100.0100, L501.9520 ####[facility] [address] [place], [address] ALK P 63 U/L Normal 45-117 [facility] Comment on above: Performed By: #### L 506.1000, L500.4050, L506.0400, L501.9985, L100.0100, L501.9520 ####[facility] [address] [place], [address] ALT [Catalytic activity/Vol] 84 U/L High 13-56 [facility] Comment on above: Performed By: #### L 506.1000, L500.4050, L506.0400, L501.9985, L100.0100, L501.9520 ####[facility] [address] [place], [address] AST [Catalytic activity/Vol] 38 U/L High 15-37 [facility] Comment on above: Performed By: #### L 506.1000, L500.4050, L506.0400, L501.9985, L100.0100, L501.9520 ####[facility] [address] [place], [address] Bilirubin [Mass/Vol] 0.30 mg/dL Normal 0.20-1.00 [facility] Comment on above: Result Comment: For patients on eltrombopag therapy, use of Dimension [place] TBIL is not recommended. Performed By: #### L 506.1000, L500.4050, L506.0400, L501.9985, L100.0100, L501.9520 ####[facility] [address] [place], [address] BUN/CRE 16.6 RATIO Normal 10-20 [facility] Comment on above: Performed By: #### L 506.1000, L500.4050, L506.0400, L501.9985, L100.0100, L501.9520 ####[facility] [address] [place], [address] CA,Total 9.8 mg/dL Normal 8.5-10.1 [facility] Comment on above: Performed By: #### L 506.1000, L500.4050, L506.0400, L501.9985, L100.0100, L501.9520 ####[facility] [address] [place], [address] Chloride [Moles/Vol] 103 mmol/L Normal 98-107 [facility] Comment on above: Performed By: #### L 506.1000, L500.4050, L506.0400, L501.9985, L100.0100, L501.9520 ####[facility] [address] [place], [address] CO2 [Moles/Vol] 25.0 mmol/L Normal 21.0-32.0 [facility] Comment on above: Performed By: #### L 506.1000, L500.4050, L506.0400, L501.9985, L100.0100, L501.9520 ####[facility] [address] [place], [address] Creatinine [Mass/Vol] 0.66 mg/dL Normal 0.55-1.02 [facility] Comment on above: Result Comment: The validity of the calculated GFR GFRAA in patients over 70 years has not been determined. Clinical correlation is essential. Performed By: #### L 506.1000, L500.4050, L506.0400, L501.9985, L100.0100, L501.9520 ####[facility] [address] [place], [address] EST GFR - AA 135 mL/min Normal >60 [facility] Comment on above: Result Comment: Afri can [place] GFR Calc Performed By: #### L 506.1000, L500.4050, L506.0400, L501.9985, L100.0100, L501.9520 ####[facility] [address] [place], [address] GAP 7 Normal 5-15 [facility] Comment on above: Performed By: #### L 506.1000, L500.4050, L506.0400, L501.9985, L100.0100, L501.9520 ####[facility] [address] [place], [address] GFR/1.73 sq M.predicted among non-blacks MDRD (S/P/Bld) [Vol rate/Area] 111 mL/min/{1.73_m2} Normal >60 [facility] Comment on above: Result Comment: Non- GFR Calc Performed By: #### L 506.1000, L500.4050, L506.0400, L501.9985, L100.0100, L501.9520 ####[facility] [address] [place], [address] Globulin (S) [Mass/Vol] 4.0 g/dL Normal 2.2-4.2 [facility] Comment on above: Performed By: #### L 506.1000, L500.4050, L506.0400, L501.9985, L100.0100, L501.9520 ####[facility] [address] [place], [address] Glucose [Mass/Vol] 94 mg/dL Normal 74-106 [facility] Comment on above: Performed By: #### L 506.1000, L500.4050, L506.0400, L501.9985, L100.0100, L501.9520 ####[facility] [address] [place], [address] Potassium [Moles/Vol] 4.1 mmol/L Normal 3.5-5.1 [facility] Comment on above: Performed By: #### L 506.1000, L500.4050, L506.0400, L501.9985, L100.0100, L501.9520 ####[facility] [address] [place], [address] Sodium [Moles/Vol] 135 mmol/L Low 136-145 [facility] Comment on above: Performed By: #### L 506.1000, L500.4050, L506.0400, L501.9985, L100.0100, L501.9520 ####[facility] [address] [place], [address] T PROT 8.3 g/dL High 6.4-8.2 [facility] Comment on above: Performed By: #### L 506.1000, L500.4050, L506.0400, L501.9985, L100.0100, L501.9520 ####[facility] [address] [place], [address] Urea nitrogen [Mass/Vol] 11 mg/dL Normal 7-18 [facility] Comment on above: Performed By: #### L 506.1000, L500.4050, L506.0400, L501.9985, L100.0100, L501.9520 ####[facility] [address] [place], [address] Hemoglobin A1con 05-04-2024 HbA1c (Bld) [Mass fraction] 5.3 % Normal 3.8-5.6 [facility] Comment on above: Result Comment: Norm al < 5.7 % Prediabetic 5.7 - 6.4 % Diabetic >or= 6.5 % Please note range changes. Performed By: #### L 506.1000, L500.4050, L506.0400, L501.9985, L100.0100, L501.9520 #### [facility] [address] [place], [address] Irrigation Technician Office Visit Reporton 05-04-2024 Irrigation Technician Office Visit Report [facility] [address], [address] [place] [address] OFFICE VISIT Date of Service: 05/04/24 MR#: [id number] Acct: [id number] Name: MARIXA AMOS Rep #: [id number] : 1995 Provider: DERRICK Hyman Age/Sex: 28/F Location: [facility] Status: Signed Intake Vital [...] and move (more content not included)... Normal [facility] T4 Free Directon 05-04-2024 T4 FREE DIRECT 0.90 ng/dL Normal 0.76-1.46 [facility] Comment on above: Performed By: #### L 506.1000, L500.4050, L506.0400, L501.9985, L100.0100, L501.9520 ####[facility] [address] [place], [address] Thyroid Stim Hormone (TSH)on 05-04-2024 TSH 1.850 uIU/mL Normal 0.358-3.740 [facility] Comment on above: Performed By: #### L 506.1000, L500.4050, L506.0400, L501.9985, L100.0100, L501.9520 ####[facility] [address] [place], [address] Vitamin D,25 Hydroxyon 05-04 Vitamin D 25-OH 24.7 ng/mL Normal [facility] Comment on above: Result Comment: Kiarra min D 25(OH) Status Range Deficiency <20 ng/mL (50nmol/L) Insufficiency 20 - 30 ng/mL (50 - 75 nmol/L) Sufficiency 30 - 100 ng/mL (75 - 250 nmol/L) Toxicity >100 ng/mL (>250 nmol/L) Performed By: #### L 506.1000, L500.4050, L506.0400, L501.9985, L100.0100, L501.9520 #### [facility] [address] [place], [address] Stool lactoferrin detection by immunoassayOrdered By: Domo Weaver on 12-11-2023 Lactoferrin IA Ql (Stl) [facility] Cervical or vagninal specime n microscopic examination by cytology stain (reported asOrdered By: Iesha Lo on 12-09-2023 Cytology report Cyto stain Doc (Cvx/Vag) Comment . [facility] Comment on above: The Pap smear is a s creening test designed to aid in thedetection of premalignant and malignant conditions of theuterine cervix. It is not a diagnostic procedure andshould not be used as the sole means of detecting cervicalcancer. Both false-positive and false-negative reports dooccur. Laboratory - CytologyOrdered By: Iesha Lo on 12-09-2023 Integration Aide Cyto stain Nom (Cvx/Vag) [ID] Comment . [facility] Comment on above: Main [place] totechnologist (ASCP) Laboratory - Miscellaneous t estsOrdered By: Iesha Lo on 12-09-2023 Service comment (Unsp spec) [Interp] . . [facility] No Panel InformationOrdered By: Iesha Lo on 12-09-2023 Human Papillomavirus Screen Comment . [facility] Comment on above: The HPV DNA reflex c jewel were not met with this specimenresult therefore, no HPV testing was performed.Performed at: [facility] [address] [place], [place] [id number] Director: Phi Yoder MD, Phone: [phone] at: [facility] - [facility] [id number] Director: Rose Haney MD, Phone: [phone] Thin prep Papanicolaou smear with manual screeningOrdered By: Iesha Lo on 12-09-2023 Thin prep Papanicolaou smear with manual screening Comment . [facility] Comment on above: NEGATIVE FOR INTRAEP ITHELIAL LESION OR MALIGNANCY. This liquid based Th inPrep(R) pap test was screened withthe use of an image guided system. PROGon 11-25-2023 Progesterone Level 6.0 ng/mL Normal [facility] ([place] Comment on above: Result Comment: Adul t Female Progesterone Reference Ranges: Follicular phase <0.21 - 1.40 ng/mL Luteal phase 3.34 - 25.56 ng/mL Mid-Luteal phase 4.44 - 28.03 ng/mL Postmenopausal <0.21 - 0.73 ng/ml Female: First trimester 11.22 - 90.00 ng/ml Second trimester 25.55 - 89.40 ng/ml Third trimester 48.40 - 422.50 ng/ml Performed By: #### P ROMEL #### [place] [address] Absolute lymphocyte countOrd ered By: Domo Weaver on 11-06-2023 Lymphocytes Auto (Unsp spec) [#/Vol] 1.91 10*3/uL 0.83-4.51 [facility] Automated lymphocyte count a s percentage of total leukocytesOrdered By: Domo Weaver on 11-06-2023 Lymphocytes/100 WBC Auto (Unsp spec) 37.4 % 19-41 [facility] Basophil percentageOrdered B y: Domoyamileth Weaver on 11-06-2023 Basophils/100 WBC (Bld) 0.8 % 0-1 [facility] Eosinophils/100 WBC (Bld) 2.2 % 0-5 [facility] Hemoglobin (Bld) [Mass/Vol] 11.6 g/dL 12.0-15.0 [facility] Monocytes/100 WBC (Bld) 8.2 % 0-10 [facility] Neutrophils (Bld) [#/Vol] 2.6 10*3/uL 2.0-7.7 [facility] Neutrophils/100 WBC (Bld) 51.2 % 47-70 [facility] WBC (Bld) [#/Vol] 5.1 10*3/uL 4.4-11.0 [facility] Determination of erythrocyte mean corpuscular volume (MCV)Ordered By: Domo Weaver on 11-06-2023 MCV (RBC) [Entitic vol] 91.6 fL 81-99 [facility] Erythrocyte distribution wid th ratioOrdered By: Domorobles Weaver on 11-06-2023 Erythrocyte distribution width (RBC) [Ratio] 12.5 % 11.6-14.6 [facility] Erythrocyte distribution wid th standard deviationOrdered By: Domoyamileth Weaver on 11-06-2023 Erythrocyte distribution width (RBC) [Entitic vol] 41.9 fL 35.1-43.9 [facility] Hematocrit Auto (Bld) [Volum e fraction]Ordered By: Domo Weaver on 11-06-2023 Hematocrit (Bld) [Volume fraction] 34.8 % 37-47 [facility] Immature granulocytes/100 WB C Auto (Bld)Ordered By: Domo Weaver on 11-06-2023 Immature granulocytes/100 WBC (Bld) 0.200 % 0.0-0.9 [facility] Comment on above: IG% - Immature Granu locytes (promyelocytes, myelocytes and metamyelocytes) > 1% indicates that a LEFT SHIFT is Present. Laboratory - Hematology and Cell countsOrdered By: Domo Weaver on 11-06-2023 MCH (RBC) [Entitic mass] 30.5 pg 27.0-32.0 [facility] MCHC (RBC) [Mass/Vol] 33.3 g/dL 32-36 [facility] Nucleated RBC/100 WBC (Bld) [Ratio] 0 % 0-5 [facility] Platelet mean volume (Bld) [Entitic vol] 10.5 fL 6.2-12.0 [facility] Platelets (Bld) [#/Vol] 291 10*3/uL 150-450 [facility] No Panel InformationOrdered By: Domo Weaver on 11-06-2023 Miscellaneous Test See comment [facility] Comment on above: Scanned image report available in EMR RBC Auto (Bld) [#/Vol]Ordere d By: Domo Weaver on 11-06-2023 RBC (Bld) [#/Vol] 3.80 10*6/uL 4.2-5.4 [facility] Laboratory - Chemistry and C hemistry - challengeOrdered By: Patrice Macias on 10-01-2023 HCG ( test) Ql (U) Negative [facility] Comment on above: Very dilute urine sp ecimens, as indicated by a low specificgravity, may not contain tax representative levels of hCG. If is still suspected, a first morning urinespecimen should be collected 48 hours later and tested. LABORATORYOrdered By: Shira Juarez on 08-27-2023 HCG ( test) Ql Negative (08/27/23 10:05 AM) Normal AO Manual Urine SS test (u) int Not detected Invalid Interpretation Code AO Manual Urine SS PREGUon 08-27-2023 HCG ( test) Ql (U) Negative Normal [facility] ([place] Comment on above: Performed By: #### P REGU #### [place] [address] [place], [place] [address] test (u) int Not detected Invalid Interpretation Code [facility] [place] Comment on above: Performed By: #### P REGU #### [place] [address] [place], [place] [address] No Panel InformationOrdered By: Domo Weaver on 08-07-2023 Stool Calprotectin 275 ug/g 0-120 [facility] Comment on above: Concentration Interp retation Follow-Up< 5 - 50 ug/g Normal None>50 -120 ug/g Borderline Re-evaluate in 4-6 weeks >120 ug/g Abnormal Repeat as clinically indicatedPerformed at: - [facility] [id number] Director: Jose Claros MD, Phone: [phone] Stool lactoferrin detection by immunoassayOrdered By: Domo Weaver on 08-07-2023 Lactoferrin IA Ql (Stl) [facility] CIRANon 08-03-2023 Dil Dewey Viper Venom 35.1 seconds Normal 30.0-42.0 [facility] ([place] Comment on above: Performed By: #### 5 38446, PROL #### [place] [address] [place] Interpretation See Below Normal [facility] ([place] Comment on above: Result Comment: No e vidence of lupus anticoagulant. Performed By: #### 5 44897, PROL #### [address] [address] Platelet neutraliz. Negative Normal [facility] ([place] Comment on above: Performed By: #### 5 15722, PROL #### [place] [id number] Erythrocyte sedimentation ra teOrdered By: Domo Weaver on 08-03-2023 ESR (Bld) [Velocity] 6 mm/h 0-30 [facility] No Panel InformationOrdered By: Domo Weaver on 08-03-2023 Miscellaneous Test See comment [facility] Comment on above: Scanned image report available in EMR Qualitative QuantiFERON-TB g old in tube testOrdered By: Domo Weaver on 08-03-2023 M. tuberculosis tuberculin stim IFN-g Ql (Bld) 0.16 IU/mL . [facility] Serum or plasma C reactive p rotein measurement (mass/volume)Ordered By: Domo Weaver on 08-03-2023 CRP [Mass/Vol] mg/L 0.0-3.0 [facility] Comment on above: C-Reactive Protein ( CRP) provides useful information for thediagnosis, therapy and monitoring of inflammatory processesand associated diseases. For the evaluation of Relative Riskfor Cardiovascular Disease, a High Sensitivity CRP (HSCRP)should be ordered. Thin prep Papanicolaou smear with manual screeningOrdered By: Domo Weaver on 08-03-2023 Thin prep Papanicolaou smear with manual screening Comment . [facility] Comment on above: QuantiFERON-TB Gold Plus is [...] smear with manual screening 0.08 IU/mL . [facility] Thin prep Papanicolaou smear with manual screening 0 IU/mL . [facility] Thin prep Papanicolaou smear with manual screening > 10.00 IU/mL . [facility] Thin prep Papanicolaou smear with manual screening Negative Negative [facility] Comment on above: No response to M [...] productionof interferon gamma. Chemiluminescence immunoassaymethodologyPerformed at: - [facility] [place], [place] [id number] Director: Almas Saavedra PhD, Phone: [phone] MULLERfaye 08-02-2023 [place] AMH 3.40 ng/mL Normal [facility] ([place] Comment on above: Result Comment: For assays employing antibodies, the possibility exists for interference by heterophile antibodies in the samples.1 1.Tony Marion Interferences in Immunoassays - still a threat. Clin. Chem. 2000; 46: 6347-2055. This test was developed and its performance characteristics determined by [employer]. It has not been cleared or approved by the Food and Drug Administration. Reference Range: Females 26 - 30y: 1.03 - 11.10 Median 4.20 AMH concentrations of >= 1.06 ng/mL is correlated with a better response to ovarian stimulation, produced more retrievable oocytes and higher odds of live according to Quin et al. Fertility and Sterility. 2010: 94:8133-8023. The current AMH test method correlates with [...] exclude an AMH-secreting ovarian tumor. Performed At: [facility] [address] [place] [id number] Felisa Umaña MD Ph:[phone] Performed By: #### 5 28673, PROL #### [address] [address] PROLon 07-30-2023 Prolactin 16.5 ng/mL Normal 2.0-30.0 [facility] ([place] Comment on above: Performed By: #### 5 45047, PROL #### [address] [address] APTTon 07-29-2023 aPTT Coag (Bld) [Time] 33.5 s Normal 25.0-35.0 [facility] ([place] Comment on above: Result Comment: For Heparin anticoagulation therapy, the recommended therapeutic range is: 54-77 seconds (APTT Correlation with Anti-Xa therapeutic range of 0.3-0.7 units/ml). PLEASE REFERENCE THE PHARMACY PROTOCOL FOR DOSING. Performed By: #### 5 13242, PROL #### [place] [address] Heparin dose (APTT) None Normal [facility] ([place] Comment on above: Performed By: #### 5 42887, PROL #### [address] [address] .Auto Diffon 04-21-2023 Basophil, Absolute 0.0 10 3/mcL Normal 0.0-0.3 [facility] ([place] Comment on above: Performed By: #### C BC, TSH, CMP, ANEU, ADIFF, LIPID, GFR #### [place] [address] Basophils/100 WBC (Bld) 0.5 % Normal 0.0-2.5 [facility] ([place] Comment on above: Performed By: #### C BC, TSH, CMP, ANEU, ADIFF, LIPID, GFR #### [place] [id number] Eosinophil, Absolute 0.1 10 3/mcL Normal 0.0-0.7 [facility] ([place] Comment on above: Performed By: #### C BC, TSH, CMP, ANEU, ADIFF, LIPID, GFR #### [address] [address] Eosinophils/100 WBC (Bld) 1.8 % Normal 0.0-6.0 [facility] ([place] Comment on above: Performed By: #### C BC, TSH, CMP, ANEU, ADIFF, LIPID, GFR #### [place] [id number] Lymphocyte, Absolute 1.8 10 3/mcL Normal 0.9-4.3 [facility] ([place] Comment on above: Performed By: #### C BC, TSH, CMP, ANEU, ADIFF, LIPID, GFR #### [address] [address] Lymphocytes/100 WBC (Bld) 28.6 % Normal 20.0-40.0 [facility] ([place]) Comment on above: Performed By: #### C BC, TSH, CMP, ANEU, ADIFF, LIPID, GFR #### [address] [address] Monocyte, Absolute 0.5 10 3/mcL Normal 0.1-1.4 [facility] ([place]) Comment on above: Performed By: #### C BC, TSH, CMP, ANEU, ADIFF, LIPID, GFR #### [address] [address] Monocytes/100 WBC (Bld) 7.4 % Normal 2.0-13.0 [facility] ([place]) Comment on above: Performed By: #### C BC, TSH, CMP, ANEU, ADIFF, LIPID, GFR #### [address] [address] Neutrophils/100 WBC (Bld) 61.7 % Normal 50.0-75.0 [facility] ([place]) Comment on above: Performed By: #### C BC, TSH, CMP, ANEU, ADIFF, LIPID, GFR #### [address] [address] .GFRon 04-21-2023 GFR >60 Normal [facility] ([place] Comment on above: Result Comment: GFR Population [...] mL/min/1.73 square meters Performed By: #### 5 06353, PROL #### [address] [address] GFR Non- >60 Normal [facility] ([place] Comment on above: Result Comment: GFR Population [...] mL/min/1.73 square meters Performed By: #### 5 06796, PROL #### [address] [address] .NEUABSon 04-21-2023 Neutrophil, Absolute 3.8 10 3/mcL Normal 2.3-8.1 [facility] ([place] Comment on above: Performed By: #### C BC, TSH, CMP, ANEU, ADIFF, LIPID, GFR #### [address] [address] CBCon 04-21-2023 Erythrocyte distribution width (RBC) [Ratio] 12.5 % Normal 11.5-15.5 [facility] ([place] Comment on above: Performed By: #### C BC, TSH, CMP, ANEU, ADIFF, LIPID, GFR #### [address] [address] Hematocrit (Bld) [Volume fraction] 36.4 % Normal 34.0-46.0 [facility] ([place] Comment on above: Performed By: #### C BC, TSH, CMP, ANEU, ADIFF, LIPID, GFR #### [address] [address] Hgb 12.1 G/dL Normal 12.0-16.0 [facility] ([place] Comment on above: Performed By: #### C BC, TSH, CMP, ANEU, ADIFF, LIPID, GFR #### [place] [address] MCH (RBC) [Entitic mass] 31.0 pg Normal 27.0-33.0 [facility] ([place] Comment on above: Performed By: #### C BC, TSH, CMP, ANEU, ADIFF, LIPID, GFR #### [place] [address] MCHC 33.4 G/dL Normal 32.0-36.0 [facility] ([place] Comment on above: Performed By: #### C BC, TSH, CMP, ANEU, ADIFF, LIPID, GFR #### [place] [address] MCV (RBC) [Entitic vol] 92.8 fL Normal 80.0-99.0 [facility] ([place] Comment on above: Performed By: #### C BC, TSH, CMP, ANEU, ADIFF, LIPID, GFR #### [place] [address] Platelet 298 10 3/mcL Normal 150-450 [facility] ([place] Comment on above: Performed By: #### C BC, TSH, CMP, ANEU, ADIFF, LIPID, GFR #### [place] [address] Platelet mean volume (Bld) [Entitic vol] 8.8 fL Normal 6.6-10.5 [facility] ([place] Comment on above: Performed By: #### C BC, TSH, CMP, ANEU, ADIFF, LIPID, GFR #### [place] [address] RBC 3.92 10 6/mcL Low 4.10-5.30 [facility] ([place] Comment on above: Performed By: #### C BC, TSH, CMP, ANEU, ADIFF, LIPID, GFR #### [place] [address] WBC 6.2 10 3/mcL Normal 4.5-10.8 [facility] ([place] Comment on above: Performed By: #### C BC, TSH, CMP, ANEU, ADIFF, LIPID, GFR #### [address] [address] CMPon 04-21-2023 Albumin Level 4.3 G/dL Normal 3.2-4.8 [facility] ([place] Comment on above: Performed By: #### C BC, TSH, CMP, ANEU, ADIFF, LIPID, GFR #### [address] [address] Albumin/Globulin [Mass ratio] 1.3 {ratio} Normal 0.9-1.6 [facility] ([place] Comment on above: Performed By: #### C BC, TSH, CMP, ANEU, ADIFF, LIPID, GFR #### [place] [id number] ALP [Catalytic activity/Vol] 55 U/L Normal 38-126 [facility] ([place] Comment on above: Performed By: #### C BC, TSH, CMP, ANEU, ADIFF, LIPID, GFR #### [place] [id number] ALT [Catalytic activity/Vol] 54 U/L High 10-49 [facility] ([place] Comment on above: Performed By: #### C BC, TSH, CMP, ANEU, ADIFF, LIPID, GFR #### [place] [id number] AST [Catalytic activity/Vol] 33 U/L Normal 8-34 [facility] ([place] Comment on above: Performed By: #### C BC, TSH, CMP, ANEU, ADIFF, LIPID, GFR #### [place] [id number] Bili Total 0.40 mg/dL Normal 0.20-1.20 [facility] ([place] Comment on above: Result Comment: Use of this assay is not recommended for patients undergoing treatment with eltrombopag due to the potential for falsely elevated results. Performed By: #### C BC, TSH, CMP, ANEU, ADIFF, LIPID, GFR #### [place] [id number] BUN/Creatinine Ratio 21.4 ratio Normal 10.0-22.0 [facility] ([place] Comment on above: Performed By: #### C BC, TSH, CMP, ANEU, ADIFF, LIPID, GFR #### [address] [address] Calcium [Mass/Vol] 9.3 mg/dL Normal 8.7-10.4 [facility] ([place] Comment on above: Performed By: #### C BC, TSH, CMP, ANEU, ADIFF, LIPID, GFR #### [address] [address] Chloride [Moles/Vol] 105 mmol/L Normal 98-110 [facility] ([place] Comment on above: Performed By: #### C BC, TSH, CMP, ANEU, ADIFF, LIPID, GFR #### [address] [address] CO2 [Moles/Vol] 28 mmol/L Normal 22-32 [facility] ([place] Comment on above: Performed By: #### C BC, TSH, CMP, ANEU, ADIFF, LIPID, GFR #### [address] [address] Creatinine [Mass/Vol] 0.56 mg/dL Normal 0.50-1.20 [facility] ([place]) Comment on above: Performed By: #### C BC, TSH, CMP, ANEU, ADIFF, LIPID, GFR #### [address] [address] Electrolyte Balance 6.0 mEq/L Normal 4.0-15.0 [facility] ([place] Comment on above: Performed By: #### C BC, TSH, CMP, ANEU, ADIFF, LIPID, GFR #### [address] [address] Globulin 3.2 G/dL Normal 1.5-3.8 [facility] ([place] Comment on above: Performed By: #### C BC, TSH, CMP, ANEU, ADIFF, LIPID, GFR #### [address] [address] Glucose [Mass/Vol] 99 mg/dL Normal 70-110 [facility] ([place] Comment on above: Performed By: #### C BC, TSH, CMP, ANEU, ADIFF, LIPID, GFR #### [address] [address] Potassium [Moles/Vol] 4.6 mmol/L Normal 3.5-5.0 [facility] ([place] Comment on above: Result Comment: Spec imen slightly hemolyzed. Performed By: #### C BC, TSH, CMP, ANEU, ADIFF, LIPID, GFR #### [address] [address] Sodium [Moles/Vol] 139 mmol/L Normal 136-145 [facility] ([place] Comment on above: Performed By: #### C BC, TSH, CMP, ANEU, ADIFF, LIPID, GFR #### [address] [address] Total Protein 7.5 G/dL Normal 5.7-8.2 [facility] ([place] Comment on above: Result Comment: No te - New Reference Range in effect 20 Performed By: #### C BC, TSH, CMP, ANEU, ADIFF, LIPID, GFR #### [address] [address] Urea nitrogen [Mass/Vol] 12.0 mg/dL Normal 8.0-22.0 [facility] ([place] Comment on above: Performed By: #### C BC, TSH, CMP, ANEU, ADIFF, LIPID, GFR #### [address] [address] LIPIDon 04-21-2023 Cholesterol [Mass/Vol] 183 mg/dL Normal 50-199 [facility] ([place] Comment on above: Result Comment: Chol esterol Reference Interval: Less than 200 Desirable 200-239 Borderline high risk 240 and above High risk Performed By: #### 5 68687, PROL #### [address] [address] Cholesterol in HDL [Mass/Vol] 53 mg/dL Normal 40-59 [facility] ([place] Comment on above: Performed By: #### 5 34457, PROL #### [address] [address] Cholesterol in LDL [Mass/Vol] 104 mg/dL Normal 0-129 [facility] ([place] Comment on above: Performed By: #### 5 97408, PROL #### [facility] [address] [place] [address] Triglyceride [Mass/Vol] 131 mg/dL Normal 3-149 [facility] ([place] Comment on above: Performed By: #### 5 57145, PROL #### [facility] [address] [place] [address] TSHon 04-21-2023 TSH 0.952 mIU/mL Normal 0.550-4.780 [facility] ([place] Comment on above: Result Comment: No te - New Reference Range in effect 20 Performed By: #### 5 99009, PROL #### [facility] [address] [place] [address] 36on 04-09-2023 36 Name of caller: JANE HER Relation to patient: patient Contact phone number: [phone] Appointment scheduled with: LANDY BLIAR Appointment date & time: 05/04/23 @ 7:50 AM Reason for visit (are you having any symptoms) : Low blood pressure, unexpected weight gain Transportation issues/ concerns: NO Special accommodations? ( wheel chair, etc) : NO Current medications: STELARA Any refills need: NO Any chronic conditions the provider should be aware of: CHRON'S, 14 WEEKS [facility] 36 In order to comply w ith the No Surprises Act, [facility] is providing you with the following attachments. Any Good Cathy Estimate that may be provided are based on the services you are scheduled to receive. During your visit, there may be additional services required in order for the provider to complete your plan of care. DECLINED Normal [facility] 36on 04-05-2023 36 PATIENT SUBMITTED ON LINE APPOINTMENT REQUEST FOR A PCP APPOINTMENT. SPOKE TO PATIENT AND GOT SOME INFORMATION BUT SHE HAD TO GET OFF THE LINE AND STATES SHE WILL C/B. OK TO SCHEDULE WITH ANY PROVIDER WHEN PATIENT CALLS BACK. FirstName : Marixa LastName : OMI Pronouns : PronounsOther : Email : [email or web address] Phone : [phone] Birthdate : 1995 12:00:00 AM BestTimeToCallBack : Afternoon AppointmentDate : Kirk PhysicianRequested : Symptoms : Weight gain, low blood pressure OptIn : False Normal [facility] Absolute lymphocyte counton 03-05-2022 Lymphocytes Auto (Unsp spec) [#/Vol] 2.37 10*3/uL 0.83-4.51 [facility] Work Phone: Albumin Elph [Mass/Vol]on Albumin [Mass/Vol] 4.1 g/dL 2.9-4.4 [facility] Work Phone: Atypical perinuclear antineu trophil cytoplasmic antibodies measurementon 03-05-2022 Neutrophil cytoplasmic Ab.perinuclear.atypica l IF (S) [Titer] 1:160 titer Neg:<1:20 [facility] Work Phone: Comment on above: The atypical pANCA p attern has been observed in asignificant percentage of patients with ulcerative colitis,primary sclerosing cholangitis and autoimmune hepatitis. Basophil percentageon 2021 Basophil percentage < 0.2 AI 0.0-0.9 [facility] Work Phone: Basophils/100 WBC (Bld) 0.6 % 0-1 [facility] Work Phone: Bilirubin [Mass/Vol] 0.30 mg/dL 0.20-1.00 [facility] Work Phone: Comment on above: For patients on eltr ombopag therapy, use of Dimension [place] TBIL is not recommended. Chloride [Moles/Vol] 105 mmol/L 98-107 [facility] Work Phone: Eosinophils/100 WBC (Bld) 1.4 % 0-5 [facility] Work Phone: Glucose [Mass/Vol] 90 mg/dL 74-106 [facility] Work Phone: Neutrophils (Bld) [#/Vol] 3.5 10*3/uL 2.0-7.7 [facility] Work Phone: Neutrophils/100 WBC (Bld) 53.6 % 47-70 [facility] Work Phone: Potassium [Moles/Vol] 3.8 mmol/L 3.5-5.1 [facility] Work Phone: Protein [Mass/Vol] 7.5 g/dL 6.4-8.2 [facility] Work Phone: Sodium [Moles/Vol] 136 mmol/L 136-145 [facility] Work Phone: WBC (Bld) [#/Vol] 6.4 10*3/uL 4.4-11.0 [facility] Work Phone: Blood erythrocytes count (nu mber/volume)on 03-05-2022 RBC (Bld) [#/Vol] 3.69 10*6/uL 4.2-5.4 [facility]: Blood hemoglobin measurement (mass/volume)on 03-05-2022 Hemoglobin (Bld) [Mass/Vol] 11.2 g/dL 12.0-15.0 [facility] Work Phone: Blood lymphocytes/100 leukoc yteson 03-05-2022 Lymphocytes/100 WBC (Bld) 36.9 % 19-41 [facility] Work Phone: Blood monocytes/100 leukocyt eson 03-05-2022 Monocytes/100 WBC (Bld) 7.3 % 0-10 [facility] Work Phone: Blood platelet mean volumeon 03-05-2022 Platelet mean volume (Bld) [Entitic vol] 10.4 fL 6.2-12.0 [facility] Work Phone: Determination of erythrocyte mean corpuscular volume (MCV)on 03-05-2022 MCV (RBC) [Entitic vol] 92.1 fL 81-99 [facility] Work Phone: Erythrocyte sedimentation ra kushal 03-05-2022 ESR (Bld) [Velocity] 13 mm/h 0-30 [facility]: Hematocrit Auto (Bld) [Volum e fraction]on 03-05-2022 Hematocrit (Bld) [Volume fraction] 34.0 % 37-47 [facility] Work Phone: [phone] Interpretation of serum or p lasma protein pattern by immunofixation (narrative resulton 03-05-2022 Protein Fractions Immunofixation Jesús [Interp] See comment [facility] Work Phone: [phone] Comment on above: Result: Not Observed Laboratory - Chemistry and C hemistry - challengeon 03-05-2022 ALP [Catalytic activity/Vol] 48 U/L 45-117 [facility] Work Phone: [phone] ALT [Catalytic activity/Vol] 39 U/L 13-56 [facility] Work Phone: [phone] CO2 [Moles/Vol] 25.0 mmol/L 21.0-32.0 [facility] Work Phone: [phone] Globulin (S) [Mass/Vol] 3.6 g/dL 2.2-4.2 [facility] Work Phone: [phone] Urea nitrogen/Creatinine [Mass ratio] 34.1 mg/mg 10-20 [facility] Work Phone: [phone] Laboratory - Hematology and Cell countson 03-05-2022 Erythrocyte distribution width (RBC) [Entitic vol] 41.1 fL 35.1-43.9 [facility] Work Phone: [phone] Erythrocyte distribution width (RBC) [Ratio] 12.0 % 11.6-14.6 [facility] Work Phone: [phone] Immature granulocytes/100 WBC (Bld) 0.200 % 0.0-0.9 [facility] Work Phone: [phone] Comment on above: IG% - Immature Granu locytes (promyelocytes, myelocytes and metamyelocytes) > 1% indicates that a LEFT SHIFT is Present. MCH (RBC) [Entitic mass] 30.4 pg 27.0-32.0 [facility] Work Phone: [phone] Nucleated RBC/100 WBC (Bld) [Ratio] 0 % 0-5 [facility] Work Phone: MCHC Auto (RBC) [Mass/Vol]on 03-05-2022 MCHC (RBC) [Mass/Vol] 32.9 g/dL 32-36 [facility] Work Phone: No Panel Informationon 03-05 Addendum Document Comment . [facility] Work Phone: Comment on above: Protein electrophore sis scan will follow via computer,mail, or wire inserter delivery. Centromere B Antibody <0.2 AI 0.0-0.9 [facility] Work Phone: Endomysial IgA Antibody Negative Negative [facility] Work Phone: Estimated GFR (MDRD) Amer 167 mL/min >60 [facility] Work Phone: Comment on above: GFR Calc Estimated GFR (MDRD) Non-Af Amer 138 mL/min >60 [facility] Work Phone: Comment on above: Non- GFR Calc Immunoglobulin E 42 IU/mL 6-495 [facility] Work Phone: WEB PRODUCTION ARTIST Antibody <0.2 AI 0.0-0.9 [facility] Work Phone: Platelets bldon 03-05-2022 Platelets (Bld) [#/Vol] 258 10*3/uL 150-450 [facility] Work Phone: Serum DNA double strand anti body assay (units/volume)on 03-05-2022 DNA double strand Ab Qn (S) [IU]/mL 0-9 [facility] Work Phone: Comment on above: Negative <5 Equivoca l 5 - 9 Positive >9 Serum Areli-1 antibody assay (u nits/volume)on 03-05-2022 Areli-1 extractable nuclear Ab Qn (S) <0.2 AI 0.0-0.9 [facility] Work Phone: Serum Scl-70 extractable nuc lear antibody assay (units/volume)on 07-07-2022 SCL-70 extractable nuclear Ab Qn (S) <0.2 AI 0.0-0.9 [facility] Work Phone: Serum Ferrell extractable nucl ear antibody detectionon 03-05-2022 Ferrell extractable nuclear Ab Ql (S) <0.2 AI 0.0-0.9 [facility] Work Phone: Serum hluuf-7-qfsfknko measu rement by electrophoresison 03-05-2022 Alpha 1 globulin Elph [Mass/Vol] 0.2 g/dL 0.0-0.4 [facility] Work Phone: Alpha 1 globulin Elph [Mass/Vol] 0.7 g/dL 0.4-1.0 [facility] Work Phone: Serum classic neutrophil cyt oplasmic antibody assay (units/volume)on 03-05-2022 Neutrophil cytoplasmic Ab.classic Qn (S) <1:20 titer Neg:<1:20 [facility] Work Phone: Serum globulin measurement ( mass/volume)on 03-05-2022 Globulin (S) [Mass/Vol] 3.1 g/dL 2.2-3.9 [facility] Work Phone: Serum or plasma C reactive p rotein measurement (mass/volume)on 03-05-2022 CRP [Mass/Vol] mg/L 0.0-3.0 [facility] Work Phone: Comment on above: C-Reactive Protein ( CRP) provides useful information for thediagnosis, therapy and monitoring of inflammatory processesand associated diseases. For the evaluation of Relative Riskfor Cardiovascular Disease, a High Sensitivity CRP (HSCRP)should be ordered. Serum or plasma IgA measurem ent (mass/volume)on 03-05-2022 IgA [Mass/Vol] 263 mg/dL 87-352 [facility] Work Phone: Serum or plasma IgG measurem ent (mass/volume)on 03-05-2022 IgG [Mass/Vol] 1132 mg/dL 586-1602 [facility] Work Phone: [phone] Serum or plasma IgM measurem ent (mass/volume)on 03-05-2022 IgM [Mass/Vol] 109 mg/dL 26-217 [facility] Work Phone: Serum or plasma albumin arielle urement (mass/volume)on 03-05-2022 Albumin [Mass/Vol] 3.9 g/dL 3.2-5.0 [facility] Work Phone: Serum or plasma albumin/glob ulin mass ratioon 03-05-2022 Albumin/Globulin [Mass ratio] 1.1 {ratio} 0.9-2.4 [facility] Work Phone: Serum or plasma beta globuli n measurement by electrophoresis (mass/volume)on 03-05-2022 Beta globulin Elph [Mass/Vol] 1.1 g/dL 0.7-1.3 [facility] Work Phone: Serum or plasma calcium arielle urement (mass/volume)on 03-05-2022 Calcium [Mass/Vol] 8.8 mg/dL 8.5-10.1 [facility] Work Phone: Serum or plasma creatinine m easurement (mass/volume)on 03-05-2022 Creatinine [Mass/Vol] 0.56 mg/dL 0.55-1.02 [facility] Work Phone: Comment on above: The validity of the calculated GFR & GFRAA in patients over 70 years has not been determined. Clinical correlation is essential. Serum or plasma cytomegalovi mike (CMV) IgG antibody assay (units/volume)on 03-05-2022 CMV IgG Qn > 10.00 U/mL 0.00-0.59 [facility] Work Phone: Comment on above: Negative <0.60 Equiv ocal 0.60 - 0.69 Positive >0.69 Serum or plasma cytomegalovi mike (CMV) IgM antibody assay (units/volume)on 03-05-2022 CMV IgM Qn < 30.0 AU/mL 0.0-29.9 [facility] Work Phone: Comment on above: Negative <30.0 Equiv ocal 30.0 - 34.9 Positive >34.9A positive result is generally indicative of acuteinfection, reactivation or persistent IgM production.Performed at: - [facility] [address] [place], [place] [id number] Director: Almas Saavedra PhD, Phone: [phone] at: [facility] [address] [address] [place], [place] [id number] Director: Jose Claros MD, Phone: [phone] Serum or plasma gamma globul in measurement by electrophoresis (mass/volume)on 03-05-2022 Gamma globulin Elph [Mass/Vol] 1.1 g/dL 0.4-1.8 [facility] Work Phone: Serum or plasma immunoelectr ophoresis interpretation (nominal result)on 03-05-2022 Interpretation IEP [Interp] Comment . [facility] Work Phone: Comment on above: No monoclonality det ected. Serum or plasma urea nitroge n measurement (mass/volume)on 03-05-2022 Urea nitrogen [Mass/Vol] 19 mg/dL 7-18 [facility] Work Phone: Serum perinuclear neutrophil cytoplasmic antibody titer by immunofluorescenceon 03-05-2022 Neutrophil cytoplasmic Ab.perinuclear IF (S) [Titer] <1:20 titer Neg:<1:20 [facility] Work Phone: Comment on above: The presence of posi tive fluorescence exhibiting P-ANCA orC-ANCA patterns alone is not specific for the diagnosis ofWegener's Granulomatosis (WG) or microscopic polyangiitis.Decisions about treatment should not be based solely onANCA IFA results. The International ANCA Group Consensusrecommends follow up testing of positive sera with both NJ-3 and MPO-ANCA enzyme immunoassays. As many as 5% serumsamples are positive only by EIA. Ref. AM J Clin Zwyeve1928;111:507-513. Serum tissue transglutaminas e IgA antibody assay (units/volume)on 03-05-2022 tTG IgA Qn (S) <2 U/mL 0-3 [facility] Work Phone: Comment on above: Negative 0 - 3 Weak Positive 4 - 10 Positive >10 Tissue Transglutaminase (tTG) has been identified as the endomysial antigen. Studies have demonstr- ated that endomysial IgA antibodies have over 99% specificity for gluten sensitive enteropathy. Thin prep Papanicolaou smear with manual screeningon 03-05-2022 Thin prep Papanicolaou smear with manual screening 24 U/L 15-37 [facility] Work Phone: Thin prep Papanicolaou smear with manual screening 6 5-15 [facility] Work Phone: [phone] Thin prep Papanicolaou smear with manual screening 150 U/L 84-246 [facility] Work Phone: [phone] Thin prep Papanicolaou smear with manual screening 1.4 0.7-1.7 [facility] Work Phone: [phone] Total protein bloodon 2021 Protein [Mass/Vol] 7.2 g/dL 6.0-8.5 [facility] Work Phone: No Panel Informationon 11-21 Stool Calprotectin 61 ug/g 0-120 [facility] Work Phone: Comment on above: Concentration Interp retation Follow-Up<16 - 50 ug/g Normal None>50 -120 ug/g Borderline Re-evaluate in 4-6 weeks >120 ug/g Abnormal Repeat as clinically indicatedPerformed at: [facility] [address] [id number] Director: Jose Claros MD, Phone: [phone] HIV 1 and HIV-2 antibody ass ay with HIV-1 p24 antigen detectionon 11-20-2021 HIV 1+2 Ab+HIV1 p24 Ag IA Ql Non-Reactive Nonreactive [facility] Work Phone: No Panel Informationon 11-20 Bordetella pertussis IgG Antibody 1.92 index 0.00-0.94 [facility] Work Phone: Comment on above: Negative <0.95 Equiv ocal 0.95 - 1.04 Positive >1.04Performed at: [employer] [address] [id number] Director: Almas Saavedra PhD, Phone: [phone] at: [facility] [id number] Director: Jose Claros MD, Phone: [phone] Hepatitis A IgM Antibody Negative Negative [facility] Work Phone: Hepatitis B Core IgM Antibody Negative Negative [facility] Work Phone: Hepatitis C Antibody (EIA) <0.1 s/co ratio 0.0-0.9 [facility] Work Phone: Comment on above: Negative: < 0.8 Inde terminate: 0.8 - 0.9 Positive: > 0.9 The CDC recommends that a positive HCV antibody result be followed up with a HCV Nucleic Acid Amplification test (009286).Effective December 29, 2021 Hepatitis Panel (4) will be made non-orderable. [employer] offers order code [id number] Acute Hepatitis. Rubella IgG Antibody Reactive Nonreactive [facility] Work Phone: Comment on above: Antibody Results Int erpretation of Immune Status Non Reactive Presumed Non-Immune Equivocal Equivocal Reactive Presumed Immune Qualitative QuantiFERON-TB g old in tube teston 11-20-2021 M. tuberculosis tuberculin stim IFN-g Ql (Bld) 0.72 IU/mL . [facility] Work Phone: Serum Varicella zoster virus IgG antibody assay by immunoassay (units/volume)on 11-20-2021 VZV IgG IA Qn (S) 314 index Immune >165 [facility] Work Phone: Comment on above: Negative <135 Equivo mario 135 - 165 Positive >165A positive result generally indicates exposure to thepathogen or administration of specific immunoglobulins,but it is not indication of active infection or stageof disease. Serum mumps virus IgM antibo dy assay (units/volume)on 11-20-2021 MuV IgM Qn (S) < 0.80 AU 0.00-0.79 [facility] Work Phone: Comment on above: Negative < 0.80 Bord giovani 0.80 - 1.20 Positive > 1.20Note: The presence of IgM specific antibody should beinterpreted in conjunction with the patient's clinicalhistory and exposure risk when an acute infection issuspected. Serum or plasma hepatitis B virus surface antigen detection by immunoassayon 11-20-2021 HBV surface Ag IA Ql Negative Negative [facility] Work Phone: Thin prep Papanicolaou smear with manual screeningon 11-20-2021 Thin prep Papanicolaou smear with manual screening Comment . [facility] Work Phone: Comment on above: The QuantiFERON-TB G old Plus result is determined bysubtracting the Nil value from either TB antigen (Ag) tube.The mitogen tube serves as a control for the test. Thin prep Papanicolaou smear with manual screening 0.44 IU/mL . [facility] Work Phone: Thin prep Papanicolaou smear with manual screening 0.08 IU/mL . [facility] Work Phone: Thin prep Papanicolaou smear with manual screening > 10.00 IU/mL . [facility] Work Phone: Thin prep Papanicolaou smear with manual screening Positive Negative [facility] Work Phone: Comment on above: The specimen [...] Auto (Unsp spec) [#/Vol] 2.55 10*3/uL 0.83-4.51 [facility] Work Phone: Basophil percentageon 2020 Bilirubin [Mass/Vol] 0.20 mg/dL 0.20-1.00 [facility] Work Phone: Comment on above: For patients on eltr ombopag therapy, use of Dimension [place] TBIL is not recommended. Chloride [Moles/Vol] 106 mmol/L 98-107 [facility] Work Phone: Eosinophils/100 WBC (Bld) 1.7 % 0-5 [facility] Work Phone: Glucose [Mass/Vol] 104 mg/dL 74-106 [facility] Work Phone: Comment on above: Fasting Glucose resu lt from 100 to 125 mg/dL suggests IMPAIRED HOMEOSTASIS per A.D.A. criteria.Please note revised GLUCOSE reference range effective 2017. Neutrophils (Bld) [#/Vol] 2.9 10*3/uL 2.0-7.7 [facility] Work Phone: Potassium [Moles/Vol] 3.8 mmol/L 3.5-5.1 [facility] Work Phone: Protein [Mass/Vol] 7.9 g/dL 6.4-8.2 [facility] Work Phone: Sodium [Moles/Vol] 136 mmol/L 136-145 [facility] Work Phone: WBC (Bld) [#/Vol] 6.0 10*3/uL 4.4-11.0 [facility] Work Phone: Blood erythrocytes count (nu mber/volume)on 07-28-2021 RBC (Bld) [#/Vol] 3.79 10*6/uL 4.2-5.4 [facility] Work Phone: Blood hemoglobin measurement (mass/volume)on 07-28-2021 Hemoglobin (Bld) [Mass/Vol] 11.7 g/dL 12.0-15.0 [facility] Work Phone: Blood lymphocytes/100 leukoc yteson 07-28-2021 Lymphocytes/100 WBC (Bld) 42.2 % 19-41 [facility] Work Phone: Blood monocytes/100 leukocyt eson 07-28-2021 Monocytes/100 WBC (Bld) 6.8 % 0-10 [facility] Work Phone: Blood platelet mean volumeon 07-28-2021 Platelet mean volume (Bld) [Entitic vol] 11.0 fL 6.2-12.0 [facility] Work Phone: Determination of erythrocyte mean corpuscular volume (MCV)on 07-28-2021 MCV (RBC) [Entitic vol] 92.1 fL 81-99 [facility] Work Phone: Erythrocyte sedimentation ra kushal 07-28-2021 ESR (Bld) [Velocity] 22 mm/h 0-30 [facility] Work Phone: Hematocrit Auto (Bld) [Volum e fraction]on 07-28-2021 Hematocrit (Bld) [Volume fraction] 34.9 % 37-47 [facility] Work Phone: Laboratory - Chemistry and C hemistry - challengeon 07-28-2021 ALP [Catalytic activity/Vol] 42 U/L 45-117 [facility] Work Phone: ALT [Catalytic activity/Vol] 76 U/L 13-56 [facility] Work Phone: CO2 [Moles/Vol] 24.0 mmol/L 21.0-32.0 [facility] Work Phone: Globulin (S) [Mass/Vol] 4.0 g/dL 2.2-4.2 [facility] Work Phone: Urea nitrogen/Creatinine [Mass ratio] 22.3 mg/mg 10-20 [facility] Work Phone: Laboratory - Hematology and Cell countson 07-28-2021 Basophils/100 WBC (Unsp spec) 0.7 % 0-1 [facility] Work Phone: Erythrocyte distribution width (RBC) [Entitic vol] 41.0 fL 35.1-43.9 [facility] Work Phone: Erythrocyte distribution width (RBC) [Ratio] 12.0 % 11.6-14.6 [facility] Work Phone: Immature granulocytes/100 WBC (Bld) 0.200 % 0.0-0.9 [facility] Work Phone: Comment on above: IG% - Immature Granu locytes (promyelocytes, myelocytes and metamyelocytes) > 1% indicates that a LEFT SHIFT is Present. MCH (RBC) [Entitic mass] 30.9 pg 27.0-32.0 [facility] Work Phone: [phone] Neutrophils/100 WBC (Bld) 48.4 % 47-70 [facility] Work Phone: Nucleated RBC/100 WBC (Bld) [Ratio] 0 % 0-5 [facility] Work Phone: [phone] MCHC Auto (RBC) [Mass/Vol]on 07-28-2021 MCHC (RBC) [Mass/Vol] 33.5 g/dL 32-36 [facility] Work Phone: No Panel Informationon 07-28 Estimated GFR (MDRD) Amer 146 mL/min >60 [facility] Work Phone: Comment on above: GFR Calc Estimated GFR (MDRD) Non-Af Amer 121 mL/min >60 [facility] Work Phone: Comment on above: Non- GFR Calc Miscellaneous Test See comment [facility] Work Phone: Comment on above: Scanned image report available in EMR Platelets bldon 07-28-2021 Platelets (Bld) [#/Vol] 262 10*3/uL 150-450 [facility] Work Phone: Serum or plasma C reactive p rotein measurement (mass/volume)on 07-28-2021 CRP [Mass/Vol] mg/L 0.0-3.0 [facility] Work Phone: Comment on above: C-Reactive Protein ( CRP) provides useful information for thediagnosis, therapy and monitoring of inflammatory processesand associated diseases. For the evaluation of Relative Riskfor Cardiovascular Disease, a High Sensitivity CRP (HSCRP)should be ordered. Serum or plasma albumin arielle urement (mass/volume)on 07-28-2021 Albumin [Mass/Vol] 3.9 g/dL 3.2-5.0 [facility] Work Phone: Serum or plasma albumin/glob ulin mass ratioon 07-28-2021 Albumin/Globulin [Mass ratio] 1.0 {ratio} 0.9-2.4 [facility] Work Phone: Serum or plasma calcium arielle urement (mass/volume)on 07-28-2021 Calcium [Mass/Vol] 9.0 mg/dL 8.5-10.1 [facility] Work Phone: Serum or plasma creatinine m easurement (mass/volume)on 07-28-2021 Creatinine [Mass/Vol] 0.63 mg/dL 0.55-1.02 [facility] Work Phone: Comment on above: The validity of the calculated GFR & GFRAA in patients over 70 years has not been determined. Clinical correlation is essential. Serum or plasma urea nitroge n measurement (mass/volume)on 07-28-2021 Urea nitrogen [Mass/Vol] 14 mg/dL 7-18 [facility] Work Phone: Thin prep Papanicolaou smear with manual screeningon 07-28-2021 Thin prep Papanicolaou smear with manual screening 30 U/L 15-37 [facility] Work Phone: Thin prep Papanicolaou smear with manual screening 6 5-15 [facility] Work Phone: Thin prep Papanicolaou smear with manual screening 207 U/L 84-246 [facility] Work Phone: CNOVon 06-30-2019 CNOV Office Visit (WALKWA ) -------- MARIXA GAY ([id number]) 1995 F CHT Date Time Provider Department [...] (HUMIRA) 40 mg/0.4 mL sykt 0.4 mL. mv,iron,vfd-KE-uxbdtxk cmb.24 400 mcg tab mv,iron,rcy-RT-ehhoqus supplement comb. no.24 400 mcg tablet Take [...] file Gets together: Not on file Attends bahai service: Not on file Active member of [...] [J02.9] Cough [R05] Order(s):RAPID STREP TEST B/O [9086833] Order #: [id number] XR CHEST 2V FRONTAL/LAT [1977280] Order #: [id number] FUTURE GROUP A STREPTOCOCCUS BY PCR [SQGASPCR] Order #: [id number] benzonatate (TESSALON PERLE) 100 mg capsuleTake 1 capsule by mouth three times daily as needed.Disp: 30 capsuleRfl: 0 Prescriptions as of 06/30/2019 Sig: OMEPRAZOLE 20 MG DELAYED RELE* Take 20 mg by mouth once avis* ADALIMUMAB 40 MG/0.4 ML SUBCU* 0.4 mL. MV,IRON,XTO-PL-SIRBWVZ SUPPLE* mv,iron,dzt-BZ-dnkclmy supple* BENZONATATE 100 MG CAPSULE Take 1 [...] Status:Closed by HENRIETTA AZUL on 06/30/19 Normal [facility] Group A Strep by PCRon 06-30 GAS Specimen Source Throat Swab Normal [facility] Comment on above: Performed By: #### G ASPCR #### [facility] [address] [address] Group A Strep PCR Negative Normal [facility] Comment on above: Result Comment: This test was developed and its performance characteristics determined by [facility]'s Kamran Alma [facility] [place] ( [facility]). It has not been cleared or approved by the FDA. [facility] is regulated under CLIA as qualified to perform high complexity testing. This test is used for clinical purposes. It should not be regarded as investigational or for research. Performed By: #### G ASPCR #### [facility] [address] [address] PROGRESSon 06-30-2019 PROGRESS HNO ID: [id number] Author: Alexandra Chau Service: ? Author Type: [...] Chau June 30, 2019 3:39 PM Normal [facility] PROGRESS HNO ID: [id number] Author: Henrietta Billingsley (Haydee-C) HAYDEE Azul Service: ? Author Type: Physician Steam Roller Operator Type: Progress Notes Filed: 06/30/2019 2:51 PM [...] (HUMIRA) 40 mg/0.4 mL sykt 0.4 mL. mv,iron,gsi-ZB-mobwwgt cmb.24 400 mcg tab mv,iron,rvc-RT-pbcmufc supplement comb. no.24 400 mcg tablet Take [...] file Gets together: Not on file Attends bahai service: Not on file Active member of [...] plan of care. Henrietta Azul PA-C Normal [facility] XR CHEST 2V FRONTAL/LATon XR CHEST [...] spine noted. IMPRESSION: No acute radiographic abnormality. Plastics Design Engineer: DAVID Transcribe Date/Time: Jun 30 2019 3:57P Dictated by : BEATRIS TRAN MD This examination was interpreted and the report reviewed and electronically signed by: BEATRIS TRAN MD on Jun 30 2019 3:57PM EST [id number] Normal [facility] CNOVon 08-04-2018 CNOV Office Visit (INTMWS ) -------- DARRENMARIXA QUINTANILLA ([id number]) 1995 F CHT Date Time Provider Department [...] who presents with bloody diarrhea and fever. DIARRHEA:[id number]} occuring 7 to 8 stools/day on average. [...] Prozac [Fluoxetine Hcl]; Zoloft [Sertraline Hcl] MEDICATIONS mv,iron,xup-CI-bwmeeay cmb.24 400 mcg tab mv,iron,jwl-KE-ojjekrh supplement comb. no.24 400 mcg tablet Take [...] no evidence of dehydration. Patient lives in [place], here visiting family. She had notified her tape fastener machine operator DR. Xenia Santana of current symptoms, he advised her to be evaluated in primary care. Called and spoke with Dr. Santana. Concerned about possible sepsis or C-diff. Recommended laboratory evaluation with: - CBC + DIFF - COMP METABOLIC PANEL - BLOOD CULTURE DRAW - BLOOD CULTURE DRAW - ENTERIC BACTERIAL PANEL BY PCR - C. DIFFICILE PCR - URINE CULTURE Orders sent to [facility], insurance will only cover their lab [...] Patient agreeable to treatment plan Shirley Szymanski APRN.CAR MECHANIC HELPER Referring Provider: XENIA SANTANA [[id number]] Allergies As of Date: 08/04/2018 Noted Allergy Reaction PROZAC (FLUOXETINE HCL) 05/30/2015 2 - Rash Comments: Also, not effective ZOLOFT (SERTRALINE HCL) 05/30/2015 2 - Rash Date Reviewed: 08/04/2018 Reviewed by: Ebonie Lopez Electric Motor Assembler - Fully Assessed Primary Visit Diagnosis:Fever, unspecified fever cause [R50.9] Other Visit Diagnoses:Bloody diarrhea [R19.7] 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 DIFFICILE PCR [SQCDPCR] Order #: [id number] URINE CULTURE [SQURCUL] Order #: [id number] FUTURE Prescriptions as of 08/04/2018 Sig: AMOXICILLIN 875 MG TABLET Take 1 tablet by mouth twice * MV,IRON,GNQ-LJ-JWKUCFI SUPPLE* mv,iron,xbh-BP-xdollmh supple* ADALIMUMAB 40 MG/0.4 ML SUBCU* 0.4 mL. PREDNISONE 20 MG TABLET Take 20 mg by mouth once avis* Problem List As Of Date 08/04/2018 Noted Resolved Depressive disorder [F32.9] INVALID FOR* Diarrhea [R19.7] INVALID FOR* Iron deficiency anemia [D50.9] INVALID FOR* Left sided colitis (HCC) [K51.50] INVALID FOR* Encounter Status:Closed by SHIRLEY SZYMANSKI CNP on 08/05/18 [facility] PROGRESSon 08-04-2018 PROGRESS HNO ID: [id number] Author: Shirley Oh) Stephon Service: (none) Author Type: Nurse Practitioner Type: Progress Notes Filed: 08/05/2018 8:35 AM Note Text: CC bloody stools, history of ulcerative colitis HPI Marixa Gay is a 23 year old female who presents with bloody diarrhea and fever. DIARRHEA:[id number]} occuring 7 to 8 stools/day on average. [...] Prozac [Fluoxetine Hcl]; Zoloft [Sertraline Hcl] MEDICATIONS mv,iron,syd-UV-gcrofog cmb.24 400 mcg tab mv,iron,kyo-AS-fwpvhqb supplement comb. no.24 400 mcg tablet Take [...] no evidence of dehydration. Patient lives in [place], here visiting family. She had notified her tape fastener machine operator DR. Xenia Santana of current symptoms, he advised her to be evaluated in primary care. Called and spoke with Dr. Santana. Concerned about possible sepsis or C-diff. Recommended laboratory evaluation with: - CBC + DIFF - COMP METABOLIC PANEL - BLOOD CULTURE DRAW - BLOOD CULTURE DRAW - ENTERIC BACTERIAL PANEL BY PCR - C. DIFFICILE PCR - URINE CULTURE Orders sent to [facility], insurance will only cover their lab [...] Patient agreeable to treatment plan Shirley Szymanski APRN.CAR MECHANIC HELPER Normal [facility] CNOVon 07-29-2018 CNOV Office Visit (UCWSTR ) -------- MARIXA GAY ([id number]) 1995 F T Date Time Provider Department 07/29/18 10:45 AM ROLF GRUBER [facility] During your visit today, we recorded the following information about you: Temperature Pulse Respiration Blood pressure 99.2 degrees 96/minute 16/minute 102/70 Weight 73.3 kg Rolf Gruber MD 07/29/2018 11:11 AM Signed Patient presents with: Sinusitis: x 4 days HPI: Feeling sick for 4 days. Visiting from [place]. Positive symptoms: Sore throat, Sinus pressure, Fever [...] (HUMIRA) 40 mg/0.4 mL sykt 0.4 mL. mv,iron,uib-JX-rkdmpoy cmb.24 400 mcg tab mv,iron,slh-VN-zsycbqi supplement comb. no.24 400 mcg tablet Take [...] ADALIMUMAB 40 MG/0.4 ML SUBCU* 0.4 mL. MV,IRON,HUW-WI-MERQVAJ SUPPLE* mv,iron,evo-MT-kczerch supple* PREDNISONE 20 MG TABLET Take 20 [...] Status:Closed by ROLF GRUBER MD on 07/29/18 [facility] PROGRESSon 07-29-2018 PROGRESS HNO ID: [id number] Author: Rolf Gruber Service: (none) Author Type: Physician Type: Progress Notes Filed: 07/29/2018 11:11 AM Note Text: Patient presents with: Sinusitis: x 4 days HPI: Feeling sick for 4 days. Visiting from [place]. Positive symptoms: Sore throat, Sinus pressure, Fever [...] (HUMIRA) 40 mg/0.4 mL sykt 0.4 mL. mv,iron,vfm-XP-hqejmcf cmb.24 400 mcg tab mv,iron,mjv-BJ-akmskqt supplement comb. no.24 400 mcg tablet Take [...] symptoms persist >5 days. Rolf Gruber MD [facility] Vital Signs Date Time Vital Sign Value Performing Clinician Facility 05-11-2025 13:52-0400 Body height 160.[address] Catrachito Mercedes MD Work Phone: 5(113)838-960819 [place] [address] 05-11-2025 13:52-0400 Body mass index (BMI) [Ratio] 35.6 kg/m2 Dr. Catrachito Mercedes MD Work Phone: 6(233)714-712214 [address] 05-11-2025 13:52-0400 Body weight 91.[address] Catrachito Mercedes MD Work Phone: 6(045)720-641614 [address] 05-11-2025 13:52-0400 Diastolic blood pressure 86 mm[Hg] Dr. Catrachito Mercedes MD Work Phone: 4(483)057-826914 [address] 05-11-2025 13:52-0400 Systolic blood pressure 130 mm[Hg] Dr. Catrachito Mercedes MD Work Phone: 1(094)757-483614 [address] 05-01-2025 14:59-0400 Body height 160.[address] Catrachito Mercedes MD Work Phone: 1(157)641-850714 [address] 05-01-2025 14:59-0400 Body mass index (BMI) [Ratio] 35.5 kg/m2 Dr. Catrachito Mercedes MD Work Phone: 0(010)782-989814 [address] 05-01-2025 14:59-0400 Body weight 90.[address] Catrachito Mercedes MD Work Phone: 4(747)716-125014 [address] 05-01-2025 14:59-0400 Diastolic blood pressure 78 mm[Hg] Dr. Catrachito Mercedes MD Work Phone: 0(843)816-933014 [address] 05-01-2025 14:59-0400 Systolic blood pressure 125 mm[Hg] Dr. Catrachito Mercedes MD Work Phone: 7(274)639-414314 [address] 04-06-2025 13:00-0400 Body height 160.[address] Catrachito Mercedes MD Work Phone: 8(450)674-769314 [address] 04-06-2025 13:00-0400 Body mass index (BMI) [Ratio] 34.4 kg/m2 Dr. Catrachito Mercedes MD Work Phone: 4(779)991-663314 [address] 04-06-2025 13:00-0400 Body weight 88.[address] Catrachito Mercedes MD Work Phone: 5(154)437-020153 [place] [address] 04-06-2025 13:00-0400 Diastolic blood pressure 79 mm[Hg] Dr. Catrachito Mercedes MD Work Phone: 3(184)519-515153 [place] [address] 04-06-2025 13:00-0400 Systolic blood pressure 138 mm[Hg] Dr. Catrachito Mercedes MD Work Phone: 9(910)908-498653 [place] [address] 03-09-2025 11:36-0400 Body height 160.[address] Catrachito Mercedes MD Work Phone: 5(092)514-884253 [place] [address] 03-09-2025 11:36-0400 Body mass index (BMI) [Ratio] 33.8 kg/m2 Dr. Catrachito Mercedes MD Work Phone: 2(499)949-348153 [place] [address] 03-09-2025 11:36-0400 Body weight 86.[address] Catrachito Mercedes MD Work Phone: 9(122)295-822153 [place] [address] 03-09-2025 11:36-0400 Diastolic blood pressure 85 mm[Hg] Dr. Catrachito Mercedes MD Work Phone: 5(230)605-107953 [place] [address] 03-09-2025 11:36-0400 Systolic blood pressure 129 mm[Hg] Dr. Catrachito Mercedes MD Work Phone: 4(355)305-862353 [place] [address] 02-23-2025 11:01-0400 Body height 160.[address] Catrachito Mercedes MD Work Phone: 2(276)266-691053 [place] [address] 02-23-2025 11:00-0400 Body mass index (BMI) [Ratio] 32.9 kg/m2 Dr. Catrachito Mercedes MD Work Phone: 4(043)086-680319 [place] [address] 02-23-2025 11:00-0400 Body weight 84.[address] Catrachito Mercedes MD Work Phone: 5(726)269-406553 [place] [address] 02-23-2025 11:00-0400 Diastolic blood pressure 86 mm[Hg] Dr. Catrachito Mercedes MD Work Phone: 6(593)196-167353 [place] [address] 02-23-2025 11:00-0400 Systolic blood pressure 135 mm[Hg] Dr. Catrachito Mercedes MD Work Phone: 4(241)301-362853 [place] [address] 02-06-2025 08:17-0400 Body height 160.[address] Catrachito Mercedes MD Work Phone: 0(445)320-374353 [place] [address] 02-06-2025 08:17-0400 Body mass index (BMI) [Ratio] 32.8 kg/m2 Dr. Catrachito Mercedes MD Work Phone: 0(144)304-534053 [place] [address] 02-06-2025 08:17-0400 Body weight 84.[address] Catrachito Mercedes MD Work Phone: 6(198)773-275253 [place] [address] 02-06-2025 08:17-0400 Diastolic blood pressure 70 mm[Hg] Dr. Catrachito Mercedes MD Work Phone: 2(204)748-268353 [place] [address] 02-06-2025 08:17-0400 Systolic blood pressure 118 mm[Hg] Dr. Catrachito Mercedes MD Work Phone: 7(487)415-262853 [place] [address] 02-02-2025 15:25-0400 Body height 160.[address] Catrachito Mercedes MD Work Phone: 4(658)881-377953 [place] [address] 02-02-2025 15:25-0400 Body mass index (BMI) [Ratio] 33 kg/m2 Dr. Catrachito Mercedes MD Work Phone: 9(763)381-572053 [place] [address] 02-02-2025 15:25-0400 Body weight 84.[address] Catrachiot Mercedes MD Work Phone: [facility] 02-02-2025 15:25-0400 Diastolic blood pressure 86 mm[Hg] Dr. Catrachito Mercedes MD Work Phone: [facility] 02-02-2025 15:25-0400 Systolic blood pressure 143 mm[Hg] Dr. Catrachito Mercedes MD Work Phone: 9(983)747-015019 [place] [address] 01-25-2025 14:45-0400 Body height 160.[address] Catrachito Mercedes MD Work Phone: 3(083)665-628219 [place] [address] 01-25-2025 14:45-0400 Body mass index (BMI) [Ratio] 32.6 kg/m2 Dr. Catrachito Mercedes MD Work Phone: 8(264)487-930914 [address] 01-25-2025 14:45-0400 Body weight 83.[address] Catrachito Mercedes MD Work Phone: 0(472)290-373219 [place] [address] 01-25-2025 14:45-0400 Diastolic blood pressure 62 mm[Hg] Dr. Catrachito Mercedes MD Work Phone: [facility] 01-25-2025 14:45-0400 Systolic blood pressure 128 mm[Hg] Dr. Catrachito Mercedes MD Work Phone: [facility] 01-22-2025 11:18-0400 Respiratory rate 18 /min Amy Cherry RN [facility] 01-22-2025 11:17-0400 Diastolic blood pressure 76 mm[Hg] Amy Cherry RN [facility] 01-22-2025 11:17-0400 Heart rate 85 /min Amy Cherry RN [facility] 01-22-2025 11:17-0400 SaO2% (BldA) [Mass fraction] 100 % Amy Cherry RN [facility] 01-22-2025 11:17-0400 Systolic blood pressure 145 mm[Hg] Amy Cherry RN [facility] 01-22-2025 11:16-0400 Body temperature 98.01 [degF] Amy Cherry RN [facility] 12-11-2024 14:54-0400 Body height 160 cm Denise Ordonez MD Work Phone: [facility] 12-11-2024 14:54-0400 Body mass index (BMI) [Ratio] 32.6 kg/m2 Denise Ordonez MD Work Phone: [facility] 12-11-2024 14:54-0400 Body temperature 97.3 [degF] Denise Ordonez MD Work Phone: [facility] 12-11-2024 14:54-0400 Body weight 83.46 kg Denise Ordonez MD Work Phone: [facility] 12-11-2024 14:54-0400 Diastolic blood pressure 63 mm[Hg] Denise Ordonez MD Work Phone: [facility] 12-11-2024 14:54-0400 Heart rate 73 /min Denise Ordonez MD Work Phone: [facility] 12-11-2024 14:54-0400 SaO2% (BldA) [Mass fraction] 98 % Denise Ordonez MD Work Phone: [facility] 12-11-2024 14:54-0400 Systolic blood pressure 122 mm[Hg] Denise Ordonez MD Work Phone: [facility] 11-22-2024 10:52-0400 Diastolic blood pressure 63 mm[Hg] Henrietta Herndon MD Work Phone: [facility] 11-22-2024 10:52-0400 Heart rate 77 /min Henrietta Herndon MD Work Phone: [facility] 11-22-2024 10:52-0400 Respiratory rate 16 /min Henrietta Herndon MD Work Phone: [facility] 11-22-2024 10:52-0400 SaO2% (BldA) [Mass fraction] 100 % Henrietta Herndon MD Work Phone: [facility] 11-22-2024 10:52-0400 Systolic blood pressure 107 mm[Hg] Henrietta Herndon MD Work Phone: [facility] 11-22-2024 10:22-0400 Body temperature 99.1 [degF] Henrietta Herndon MD Work Phone: [facility] 11-22-2024 08:38-0400 Body height 160 cm Henrietta Herndon MD Work Phone: [facility] 11-22-2024 08:38-0400 Body mass index (BMI) [Ratio] 33.59 kg/m2 Henrietta Herndon MD Work Phone: [facility] 11-22-2024 08:38-0400 Body weight 86 kg Henrietta Herndon MD Work Phone: [facility] 10-11-2024 10:33-0500 Diastolic blood pressure 62 mm[Hg] Henrietta Herndon MD Work Phone: [facility] 10-11-2024 10:33-0500 Heart rate 76 /min Henrietta Herndon MD Work Phone: [facility] 10-11-2024 10:33-0500 Respiratory rate 16 /min Henrietta Herndon MD Work Phone: [facility] 10-11-2024 10:33-0500 SaO2% (BldA) [Mass fraction] 99 % Henrietta Herndon MD Work Phone: [facility] 10-11-2024 10:33-0500 Systolic blood pressure 112 mm[Hg] Henrietta Herndon MD Work Phone: [facility] 10-11-2024 09:47-0500 Body temperature 97.9 [degF] Henrietta Herndon MD Work Phone: [facility] 10-11-2024 07:55-0500 Body height 160 cm Henrietta Herndon MD Work Phone: [facility] 10-11-2024 07:55-0500 Body mass index (BMI) [Ratio] 32.57 kg/m2 Henrietta Herndon MD Work Phone: [facility] 10-11-2024 07:55-0500 Body weight 83.4 kg Henrietta Herndon MD Work Phone: [facility] 08-14-2024 11:03-0500 Diastolic blood pressure 88 mm[Hg] Gavino Tristan MD Work Phone: [facility] 08-14-2024 11:03-0500 Heart rate 64 /min Gavino Tristan MD Work Phone: [facility] 08-14-2024 11:03-0500 Respiratory rate 18 /min Gavino Tristan MD Work Phone: [facility] 08-14-2024 11:03-0500 SaO2% (BldA) [Mass fraction] 99 % Gavino Tristan MD Work Phone: [facility] 08-14-2024 11:03-0500 Systolic blood pressure 143 mm[Hg] Gavino Tristan MD Work Phone: [facility] 08-14-2024 10:44-0500 Body temperature 97 [degF] Gavino Tristan MD Work Phone: [facility] 08-14-2024 10:32-0500 Body height 160 cm Gavino Tristan MD Work Phone: [facility] 08-14-2024 10:32-0500 Body mass index (BMI) [Ratio] 32.65 kg/m2 Gavino Tristan MD Work Phone: [facility] 08-14-2024 10:32-0500 Body weight 83.6 kg Gavino Tristan MD Work Phone: [facility] 07-14-2024 13:31-0500 Body height 160 cm Imelda Pollard MD Work Phone: [facility] 07-14-2024 13:31-0500 Body mass index (BMI) [Ratio] 32.31 kg/m2 Imelda Pollard MD Work Phone: [facility] 07-14-2024 13:31-0500 Body weight 82.72 kg Imelda Pollard MD Work Phone: [facility] 07-14-2024 13:31-0500 Diastolic blood pressure 79 mm[Hg] Imelda Pollard MD Work Phone: [facility] 07-14-2024 13:31-0500 Heart rate 64 /min Imelda Pollard MD Work Phone: [facility] 07-14-2024 13:31-0500 Systolic blood pressure 128 mm[Hg] Imelda Pollard MD Work Phone: [facility] 01-25-2024 11:08-0400 Body height 160 cm Sarah Srinivas BLADDER CLEANER-CAR MECHANIC HELPER Work Phone: [facility] 01-25-2024 11:08-0400 Body mass index (BMI) [Ratio] 31.18 kg/m2 Sarah Espino BLADDER CLEANER-CAR MECHANIC HELPER Work Phone: [facility] 01-25-2024 11:08-0400 Body weight 79.83 kg Sarah Espino BLADDER CLEANER-CAR MECHANIC HELPER Work Phone: [facility] 12-09-2023 13:23-0400 Body height 160.[address] Domo Weaver Work Phone: [facility] 12-09-2023 13:23-0400 Body mass index (BMI) [Ratio] 32.9 kg/m2 Dr. Domo Weaver Work Phone: [facility] 12-09-2023 13:23-0400 Body weight 84.[address] Domo Weaver Work Phone: [facility] 12-09-2023 13:23-0400 Diastolic blood pressure 87 mm[Hg] Dr. Domo Weaver Work Phone: [facility] 12-09-2023 13:23-0400 Systolic blood pressure 138 mm[Hg] Dr. Domo Weaver Work Phone: [facility] 10-01-2023 13:00-0500 Body temperature 97.2 [degF] No Primary Care Physician [facility] 10-01-2023 13:00-0500 Diastolic blood pressure 54 mm[Hg] No Primary Care Physician [facility] 10-01-2023 13:00-0500 Heart rate 55 /min No Primary Care Physician [facility] 10-01-2023 13:00-0500 Respiratory rate 16 /min No Primary Care Physician [facility] 10-01-2023 13:00-0500 SaO2% (BldA) [Mass fraction] 100 % No Primary Care Physician [facility] 10-01-2023 13:00-0500 Systolic blood pressure 107 mm[Hg] No Primary Care Physician [facility] 10-01-2023 11:19-0500 Body height 160.02 cm No Primary Care Physician [facility] 10-01-2023 11:19-0500 Body mass index (BMI) [Ratio] 31.6 kg/m2 No Primary Care Physician [facility] 10-01-2023 11:19-0500 Body weight 81 kg No Primary Care Physician [facility] 08-27-2023 14:07-0500 Diastolic Blood Pressure Non-Invasive 56 mm[Hg] ERNA TROTTER MD [facility] 08-27-2023 14:07-0500 Systolic Blood Pressure Non-Invasive 102 mm[Hg] ERNA TROTTER MD [facility] 08-27-2023 13:22-0500 Diastolic Blood Pressure Non-Invasive 64 mm[Hg] ERNA TROTTER MD [facility] 08-27-2023 13:22-0500 Heart rate 65 /min ERNA TROTTER MD [facility] 08-27-2023 13:22-0500 Respiratory rate 12 /min ERNA TROTTER MD [facility] 08-27-2023 13:22-0500 Systolic Blood Pressure Non-Invasive 117 mm[Hg] ERNA TROTTER MD [facility] 08-27-2023 13:01-0500 Diastolic Blood Pressure Non-Invasive 99 mm[Hg] ERNA TROTTER MD [facility] 08-27-2023 13:01-0500 Heart rate 61 /min ERNA TROTTER MD [facility] 08-27-2023 13:01-0500 Respiratory rate 15 /min ERNA TROTTER MD [facility] 08-27-2023 13:01-0500 Systolic Blood Pressure Non-Invasive 121 mm[Hg] ERNA TROTTER MD [facility] 08-27-2023 12:55-0500 Heart rate 51 /min ERNA TROTTER MD [facility] 08-27-2023 12:55-0500 Respiratory rate 19 /min ERNA TROTTER MD [facility] 08-27-2023 12:45-0500 Body temperature 97.52 [degF] ERNA TROTTER MD [facility] 08-27-2023 12:35-0500 Respiratory Rate - Anes 32 br/min ERNA TROTTER MD [facility] 08-27-2023 12:30-0500 Respiratory Rate - Anes 10 br/min ERNA TROTTER MD [facility] 08-27-2023 12:25-0500 Respiratory Rate - Anes 10 br/min ERNA TROTTER MD [facility] 08-27-2023 10:13-0500 Body height 160 cm ERNA TROTTER MD [facility] 08-27-2023 10:13-0500 Body temperature 97.52 [degF] ERNA TROTTER MD [facility] 08-27-2023 10:13-0500 Body weight 75 kg ERNA TROTTER MD [facility] 08-27-2023 10:13-0500 Heart rate 63 /min ERNA TROTTER MD [facility] 08-13-2023 07:38-0500 Blood Pressure Location ERNA TROTTER MD [facility] 08-13-2023 07:38-0500 Body height 160 cm ERNA TROTTER MD [facility] 08-13-2023 07:38-0500 Body weight 79.5 kg ERNA TROTTER MD [facility] 08-13-2023 07:38-0500 Body weight 31.05 kg/m2 ERNA TROTTER MD [facility] 08-13-2023 07:38-0500 Diastolic Blood Pressure Non-Invasive 64 mm[Hg] ERNA TROTTER MD [facility] 08-13-2023 07:38-0500 Heart rate 78 /min ERNA TROTTER MD [facility] 08-13-2023 07:38-0500 Respiratory rate 20 /min ERNA TROTTER MD [facility] 08-13-2023 07:38-0500 Systolic Blood Pressure Non-Invasive 110 mm[Hg] ERNA TROTTER MD [facility] 04-10-2022 14:39-0400 Body temperature 97.1 [degF] No Primary Care Physician [facility] Work Phone: 04-10-2022 14:39-0400 Diastolic blood pressure 61 mm[Hg] No Primary Care Physician [facility] Work Phone: 04-10-2022 14:39-0400 Heart rate 54 /min No Primary Care Physician [facility] Work Phone: 04-10-2022 14:39-0400 Respiratory rate 16 /min No Primary Care Physician [facility] Work Phone: 04-10-2022 14:39-0400 SaO2% (BldA) [Mass fraction] 99 % No Primary Care Physician [facility] Work Phone: 04-10-2022 14:39-0400 Systolic blood pressure 115 mm[Hg] No Primary Care Physician [facility] Work Phone: 04-10-2022 12:44-0400 Body height 160.02 cm No Primary Care Physician [facility] Work Phone: 04-10-2022 12:44-0400 Body mass index (BMI) [Ratio] 26.5 kg/m2 No Primary Care Physician [facility] Work Phone: 04-10-2022 12:44-0400 Body weight 68.03 kg No Primary Care Physician [facility] Work Phone: 03-05-2022 15:37-0400 Body height 160.02 cm No Primary Care Physician [facility] Work Phone: 03-05-2022 15:37-0400 Body mass index (BMI) [Ratio] 27.3 kg/m2 No Primary Care Physician [facility] Work Phone: 03-05-2022 15:37-0400 Body weight 69.85 kg No Primary Care Physician [facility] Work Phone: 03-05-2022 15:37-0400 Diastolic blood pressure 70 mm[Hg] No Primary Care Physician [facility] Work Phone: 03-05-2022 15:37-0400 Heart rate 65 /min No Primary Care Physician [facility] Work Phone: 03-05-2022 15:37-0400 SaO2% (BldA) [Mass fraction] 98 % No Primary Care Physician [facility] Work Phone: 03-05-2022 15:37-0400 Systolic blood pressure 123 mm[Hg] No Primary Care Physician [facility] Work Phone: Encounters Encounter Date Encounter Type Care Provider Facility Start: 05-11-2025 End: 05-11-[address] Catrachito Mercedes MD Work Phone: [facility] Start: 05-11-2025 End: 05-11-2025 Patient encounter procedure Iesha Lo [facility] -[facility] Work Phone: Start: 05-08-2025 End: 05-08-[address] PATRICK OAKES MD Facility:A Start: 05-08-2025 End: 05-08-2025 ambulatory NO PRIMARY CARE [facility] Start: 05-01-2025 End: 05-01-[address] Carmen Lugo MD -[facility] Work Phone: Start: 05-01-2025 End: 05-01-[address] Catrachito Mercedes MD Work Phone: [facility] Start: 04-20-2025 End: 04-20-2025 ambulatory NO PRIMARY CARE [facility] Start: 04-06-2025 End: 04-06-2025 Patient encounter procedure Iesha NASCIMENTO -[facility] Work Phone: Start: 04-06-2025 End: 04-06-[address] Catrachito Mercedes MD Work Phone: [facility] Start: 03-10-2025 End: 03-10-[address] Catrachito Mercedes MD Work Phone: -Laboratory Start: 03-10-2025 End: 03-10-2025 Patient encounter procedure Domo Weaver DO -Laboratory Work Phone: Start: 03-09-2025 End: 03-09-[address] Carmen Lugo MD -[facility] Work Phone: Start: 03-09-2025 End: 03-10-[address] Catrachito Mercedes MD Work Phone: -[facility] Start: 02-23-2025 End: 02-23-[address] Marcia Yen DO -[facility] Work Phone: Start: 02-23-2025 End: 02-23-[address] Catrachito Mercedes MD Work Phone: -[facility] Start: 02-06-2025 End: 02-06-2025 Patient encounter procedure Iesha Lo [facility] -[facility] Work Phone: Start: 02-06-2025 End: 02-06-[address] Catrachito Mercedes MD Work Phone: [facility] Work Phone: Start: 02-06-2025 End: 02-06-2025 ambulatory Catrachito Mercedes Facility:[facility] Start: 02-02-2025 End: 02-02-[address] Catrachito Mercedes MD Work Phone: [facility] Work Phone: Start: 02-02-2025 End: 02-02-2025 Patient encounter procedure Mary Beth NASCIMENTO -[facility] Work Phone: Start: 02-02-2025 End: 02-02-2025 ambulatory Domo Weaver Facility:[facility] Start: 01-26-2025 End: 01-26-[address] Carmen Lugo MD -[facility] [place] Work Phone: Start: 01-26-2025 End: 01-26-[address] Catrachito Mercedes MD Work Phone: [facility] Work Phone: Start: 01-25-2025 End: 01-25-2025 Patient encounter procedure Katelyn Benitez BLADDER CLEANER-[employer] MECHANIC HELPER Work Phone: [facility] Comment on above: Encounter to determi ne viability of , single or unspecified fetus (Primary Dx) Start: 01-25-2025 End: 01-25-2025 ambulatory KATELYN Batres [facility] Start: 01-22-2025 End: 01-22-2025 Emergency department patient visit DENISE ORDONEZ [facility] Comment on above: Vaginal discharge (P rimary Dx) Start: 01-18-2025 End: 01-18-2025 ambulatory KATELYN Batres ELI [facility] Start: 01-11-2025 End: 01-11-2025 Patient encounter procedure 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 Catrachito Mercedes MD Work Phone: [facility] Work Phone: Start: 01-06-2025 End: 01-06-2025 Patient encounter procedure Domo Weaver DO -Laboratory Work Phone: Start: 01-05-2025 End: 01-06-2025 ambulatory DENISE ORDONEZ [facility] Start: 01-01-2025 End: 01-01-2025 ambulatory Domo Weaver Facility:[facility] Start: 01-01-2025 End: 01-01-2025 Patient encounter procedure Domo Weaver DO -[facility] Work Phone: Start: 12-26-2024 End: 12-26-2024 Subsequent hospital visit by physician Gavino Tristan MD Work Phone: [facility] Comment on above: Encounter for assist ed reproductive fertility cycle Start: 12-26-2024 End: 12-26-2024 ambulatory DENISE ORDONEZ [facility] Start: 12-20-2024 End: 12-20-2024 Office outpatient new 30 minutes Anabell Rogel MD Work Phone: [facility] Comment on above: Plantar wart (Primar y Dx); Dermatologic problem Start: 12-20-2024 End: 12-20-2024 ambulatory ANABELL DAVALOS GERRY [facility] Start: 12-20-2024 End: 12-20-2024 ambulatory DENISE ORDONEZ [facility] Start: 12-15-2024 End: 12-15-2024 Professional / ancillary services management [facility] [id number] Comment on above: Female infertility Start: 12-15-2024 End: 12-15-2024 ambulatory IMELDA POLLARD [facility] Start: 12-11-2024 End: 12-11-2024 Initial preventive medicine new pt age 18-39yrs Denise Ordonez MD Work Phone: [facility] Comment on above: Healthcare maintenan ce (Primary Dx); Hypovitaminosis D; Polycystic ovarian disease; Crohn's disease of colon without complication (Multi) Start: 12-11-2024 End: 12-11-2024 Patient encounter status Denise Ordonez MD Work Phone: [facility] Work Phone: Start: 12-11-2024 End: 12-11-2024 ambulatory DENISE Billingsley [facility] Start: 12-11-2024 End: 12-11-2024 Encounter for general adult medical examination without abnormal findings DENISE L [facility] Start: 12-04-2024 End: 12-04-2024 ambulatory IMELDA POLLARD [facility] Start: 11-22-2024 End: 11-22-2024 Subsequent hospital visit by physician Henrietta Herndon MD Work Phone: Nicol Dhaliwal Comment on above: Encounter for assist ed reproductive fertility cycle Start: 11-22-2024 End: 11-22-2024 ambulatory HENRIETTA HERNDON [facility] Start: 11-21-2024 End: 11-21-2024 ambulatory DENISE [facility] Start: 11-21-2024 End: 11-21-2024 Encounter for blood typing [facility] Start: 11-20-2024 End: 11-20-2024 Patient encounter status [facility] Work Phone: Start: 11-20-2024 End: 11-20-2024 Professional / ancillary services management [facility] [id number] [facility] Ultrasound Nicol Dhaliawl Comment on above: Fertility testing (P rimary Dx); Female infertility; Screening for diabetes mellitus; Encounter for Rh blood typing; Screening for STDs (sexually transmitted diseases); Screening for thyroid disorder Start: 11-20-2024 End: 11-20-[address] [facility] Start: 11-20-2024 End: 11-20-2024 Encounter for blood typing ALEJANDRA [facility] Start: 11-18-2024 End: 11-18-2024 Professional / ancillary services management [facility] [id number] [facility] Ultrasound Nicol Dhaliwal Comment on above: Female infertility Start: 11-18-2024 End: 11-18-[address] [facility] Start: 11-16-2024 End: 11-16-2024 Professional / ancillary services management [facility] [id number] [facility] Ultras[facility] Nicol Dhaliwal Comment on above: Female infertility Start: 11-16-2024 End: 11-16-[address] [facility] Start: 11-14-2024 End: 11-14-2024 Professional / ancillary services management Mac [id number] [facility] Ultras[facility] Nicol Dhaliwal Comment on above: Female infertility Start: 11-14-2024 End: 11-14-[address] [facility] Start: 11-08-2024 End: 11-08-2024 Professional / ancillary services management Mac [id number] [facility] Ultrasound Nicol Dhaliwal Comment on above: Female infertility Start: 11-08-2024 End: 11-08-[address] [facility] Start: 10-11-2024 End: 10-11-2024 Subsequent hospital visit by physician Henrietta Herndon MD Work Phone: Nicol Dhaliwal Comment on above: Encounter for assist ed reproductive fertility cycle Start: 10-11-2024 End: 10-11-2024 ambulatory HENRIETTA HERNDON [facility] Start: 10-10-2024 End: 10-10-2024 [facility] Start: 10-09-2024 End: 10-09-2024 Professional / ancillary services management Mac [id number] [facility] Ultrasound Nicol Dhaliwal Comment on above: Female infertility Start: 10-09-2024 End: 10-09-[address] [facility] Start: 10-08-2024 End: 10-08-2024 Professional / ancillary services management Mac [id number] [facility] Ul[facility] Nicol Dhaliwal Comment on above: Female infertility Start: 10-08-2024 End: 10-08-[address] [facility] Start: 10-07-2024 End: 10-07-2024 Professional / ancillary services management Mac [id number] [facility] Ultrasound Nicol Dhaliwal Comment on above: Female infertility Start: 10-07-2024 End: 10-07-2024 ambulatory [facility] Start: 10-05-2024 End: 10-05-2024 Professional / ancillary services management [facility] [id number] Terrence Ultrasound Nicol Dhaliwal Comment on above: Female infertility Start: 10-05-2024 End: 10-05-2024 ambulatory [facility] Start: 10-03-2024 End: 10-03-2024 ambulatory IMELDA POLLARD [facility] Start: 09-29-2024 End: 09-29-[address] [facility] Start: 09-27-2024 End: 09-27-2024 Professional / ancillary services management [facility] [id number] Terrence Nurse Resource Nicol Dhaliwal Comment on above: Arrived Female infertility Start: 09-27-2024 End: 09-27-2024 ambulatory [facility] Start: 09-19-2024 End: 09-19-2024 ambulatory [facility] Start: 09-15-2024 End: 09-15-[address] [facility] Start: 09-15-2024 End: 09-15-2024 Encounter for general adult medical examination without abnormal findings [facility] Start: 08-14-2024 End: 08-14-2024 Subsequent hospital visit by physician Gavino Tristan MD Work Phone: Nicol Dhaliwal Comment on above: Endometritis (Primar y Dx); Fertility testing Start: 08-14-2024 End: 08-14-2024 ambulatory GAVINO TRISTAN [facility] Start: 07-24-2024 ambulatory Catrachito Mercedes Facilit y:[facility] Start: 07-14-2024 End: 07-14-2024 Patient encounter procedure Imelda Pollard MD Work Phone: Nicol Dhaliwal Comment on above: Fertility testing (P rimary Dx); Encounter for preprocedural laboratory examination; Female fertility problem [N97.9] Start: 07-14-2024 End: 07-14-2024 Patient encounter status Imelda Pollard MD Work Phone: [facility] Work Phone: Start: 07-14-2024 End: 07-14-2024 ambulatory IMELDA POLLARD [facility] Start: 07-14-2024 End: 07-14-2024 Encounter for preprocedural laboratory examination [facility] Start: 07-12-2024 End: 07-12-2024 ambulatory Nastamichel Halemadi Facility:[facility] Start: 06-29-2024 End: 06-29-2024 ambulatory [facility] Facility:[facility] Start: 06-24-2024 End: 06-24-2024 ambulatory [facility] Facility:[facility] Start: 06-01-2024 End: 06-01-2024 ambulatory [facility] Facility:[facility] Start: 05-26-2024 End: 05-26-2024 ambulatory [facility] Facility:[facility] Start: 05-04-2024 End: 05-04-2024 ambulatory [facility] Facility:[facility] Start: 05-04-2024 End: 05-04-2024 ambulatory [facility] Facility:[facility] Start: 01-25-2024 End: 01-25-2024 Telemedicine consultation with patient Sarah Espino BLADDER CLEANER-[employer] MECHANIC HELPER Work Phone: Nicol Dhaliwal Comment on above: Female infertility ( Primary Dx); Endometriosis Start: 12-11-2023 End: 12-11-[address] Domo Weaver Work Phone: [facility] Work Phone: Start: 12-11-2023 End: 12-11-[address] Domo Weaver Work Phone: [facility] Work Phone: Start: 12-09-2023 End: 12-09-[address] Domo Weaver Work Phone: [facility] Work Phone: Start: 12-09-2023 End: 12-09-[address] Domo Weaver Work Phone: [facility] Work Phone: Start: 12-09-2023 End: 12-09-[address] Domo Weaver Work Phone: [facility] Work Phone: Start: 11-25-2023 End: 11-26-2023 ambulatory CATRACHITO MERCEDES MD Facility:A Start: 11-06-2023 End: 11-06-2023 ambulatory No Primary Care Physician [facility] Work Phone: Start: 11-06-2023 End: 11-06-2023 Patient encounter procedure No Primary Care Physician [facility] Work Phone: Start: 10-01-2023 Non-patient / Non-visit No Primary Care Physician [facility] Start: 10-01-2023 End: 10-01-2023 Admission to same day surgery center No Primary Care Physician [facility] Work Phone: Start: 10-01-2023 End: 10-01-2023 ambulatory No Primary Care Physician [facility] Work Phone: Start: 08-27-2023 End: 08-27-2023 ambulatory ERNA TROTTER MD Facility:B Start: 08-27-2023 End: 08-27-2023 SAME DAY STAY ERNA TROTTER MD [facility] Start: 08-13-2023 End: 08-14-2023 ambulatory ERNA TROTTER MD Facility:B Start: 08-13-2023 End: 08-13-2023 Admission to [facility] ERNA TROTTER MD [facility] Start: 08-07-2023 End: 08-07-2023 ambulatory No Primary Care Physician [facility] Work Phone: Start: 08-07-2023 End: 08-07-2023 Patient encounter procedure No Primary Care Physician [facility] Work Phone: Start: 08-03-2023 End: 08-03-2023 ambulatory No Primary Care Physician [facility] Work Phone: Start: 08-03-2023 End: 08-03-2023 Patient encounter procedure No Primary Care Physician [facility] Work Phone: Start: 07-29-2023 End: 07-30-2023 ambulatory ERNA TROTTER MD Facility:A Start: 04-20-2023 End: 04-25-2023 ambulatory CATRACHITO MERCEDES MD Facility:A Start: 04-09-2023 Telephone encounter Landy cintronman BLADDER CLEANER - CAR MECHANIC HELPER Work Phone: [facility] Comment on above: NO SURPRISE ACT New Patient Start: 04-05-2023 Telephone encounter Galina diaz MD Work Phone: [facility] Comment on above: Appointment Request Start: 04-10-2022 End: 04-10-2022 Patient encounter procedure No Primary Care Physician [facility] Start: 03-05-2022 End: 03-05-2022 Patient encounter procedure No Primary Care Physician [facility] Start: 03-05-2022 End: 03-05-2022 Patient encounter procedure No Primary Care Physician [facility] Start: 11-26-2021 End: 11-26-2021 Patient encounter procedure No Primary Care Physician [facility] [place] Start: 11-21-2021 End: 11-21-2021 Patient encounter procedure No Primary Care Physician [facility] Start: 11-20-2021 End: 11-20-2021 Patient encounter procedure No Primary Care Physician [facility] Start: 10-22-2021 End: 10-22-2021 Patient encounter procedure No Primary Care Physician [facility] Virtual Start: 07-28-2021 Patient encounter procedure No Primary Care Physician [facility] Start: 07-28-2021 End: 07-28-2021 Patient encounter procedure No Primary Care Physician [facility] Procedures Date Procedure Procedure [...] HCV Quant by PCR testing - HCVPCR #[id number] Non Reactive: < 0.8 Equivocal: >/= 0.8 [...] Work Phone: Comment on above: Test Ordered: [id number] Ustekinumab Drug + AntibodyUstekinumab 3.9 ug/mL ES [...] R, et al. Clin Gastroenterol Hepatol 2017;15: 7520-4492.4. Tessa MORA, et al. Br J Dermatol;2015:173;855-857.5. Grover H, et al. PLOS ONE DOI;10:1371/journal.pone.3182347.6. Allan L, et al. Br J Dermatol 2014;170:261-273.These tests were developed and their performancecharacteristics determined by [employer]. They have not beencleared or approved by the Food and Drug Administration.However, both drug and anti-drug antibody assays have beendeveloped and validated in accordance with FDA Guidance forIndustry documents: Bioanalytical Method Validation (2013)and Assay Development and Validation for ImmunogenicityTesting of Therapeutic Protein Products (2016).Performed at: Sun Number [address] [id number] Director: Gregg Roberto MD, Phone: [phone] at: [address] [id number] Director: Almas Saavedra PhD, Phone: [phone] Start: 01-22-2025 Us uterus 14 wk transabdl 08/30 gestat Zane Pryor BLADDER CLEANER-CAR MECHANIC HELPER Work Phone: Start: 01-22-2025 Blood typing serologic rh (d) Zane Pryor BLADDER CLEANER-CAR MECHANIC HELPER Work Phone: Start: 01-22-2025 Comprehensive metabolic panel Zane Pryor BLADDER CLEANER-CAR MECHANIC HELPER Work Phone: Start: 01-22-2025 Smr prim src wet mount nfct agt Zane Pryor BLADDER CLEANER-CAR MECHANIC HELPER Work Phone: Start: 01-22-2025 Urnls dip stick/tablet rgnt auto w/o microscopy Zane Pryor BLADDER CLEANER-CAR MECHANIC HELPER Work Phone: Start: 12-26-2024 Embryo transfer intrauterine Imelda pollock MD Work Phone: Start: 12-26-2024 Ultrasonic guidance intraoperative Jose Pollard MD Work Phone: Start: 12-20-2024 DESTRUCTION OF LESION Anabell Rogel MD Work Phone: Start: 12-20-2024 Lipid 1996 panel - Serum or Plasma Bill Tristan MD Work Phone: Start: 11-22-2024 Follicle puncture oocyte retrieval any method Katelyn Benitez APRN-CAR MECHANIC HELPER Work Phone: Start: 11-20-2024 Us pelvic nonobstetric [...] puncture oocyte retrieval any method Katelyn Benitez APRN-CAR MECHANIC HELPER Work Phone: Start: 10-08-2024 Us pelvic nonobstetric [...] or Population) (1 - 1-dose 75+ series) [facility] Start: 2044 Zoster Vaccines (1 of 2) Zoster Vaccines (1 of 2) [facility] Start: 07-12-2034 DTaP/Tdap/Td Vaccines (2 - Tdap) DTaP/Tdap/Td Vaccines (2 - Tdap) [facility] Start: 12-20-2029 Lipid panel Lipid Panel [facility] Start: 12-20-2025 Vitamin D25-OH Vitamin D25-OH [facility] Start: 12-12-2025 Yearly Adult Physical Yearly Adult Physical [facility] Start: 02-06-2025 CBC W Auto Differential panel - Blood [facility] Start: 02-06-2025 Hemoglobin A1c/Hemoglobin.total in Blood [facility] Start: 02-06-2025 Hepatitis C antibody measurement [facility] Start: 02-06-2025 Rubella IgG measurement [facility] Start: 02-06-2025 Serologic test for syphilis [facility] Start: 02-06-2025 [facility] Start: 01-25-2025 End: 01-25-2025 Patient encounter procedure 01/25/2025 2:00 PM EDT Office Visit Nicol Dhaliwal [address] [place] [phone] Katelyn Benitez, BLADDER CLEANER-CAR MECHANIC HELPER [address] [place] [address] Nicol Dhaliwal Start: 01-25-2025 End: 01-25-2025 Professional / ancillary services management 01/25/2025 1:30 PM EDT Ancillary Procedure SERGEI Dhaliwal [address] [place] [address] Nicol Dhaliwal Start: 01-11-2025 End: 01-11-2026 US Pelvis transvaginal US OB transvaginal Imaging Routine Encounter to determine viability of , single or unspecified fetus Expected: 01/11/2025, Expires: 01/11/2026 [facility] Service Area Work Phone: Comment on above: Expected: 01/11/2025, Expires: Start: 01-10-2025 End: 01-10-2025 Patient encounter procedure 01/10/2025 9:30 AM EDT Office Visit [address] [phone] Anabell Michael MD [address] [place] [id number] [facility] Start: 01-05-2025 End: 01-05-2025 Professional / ancillary services management 01/05/2025 8:30 AM EDT Ancillary Procedure Nicol Dhaliwal [address] [place] [phone] Nicol Dhaliwal Start: 12-26-2024 End: 12-26-2024 Patient encounter procedure 12/26/2024 11:00 AM EDT Procedure Visit Nicol Dhaliwal [address] [place] [phone] Imelda Pollard MD [address] [place] [address] Nicol Dhaliwal Start: 12-20-2024 End: 12-20-2024 Patient encounter procedure [facility] Comment on above: Arrived Start: 12-15-2024 End: 12-15-2024 Professional / ancillary services management 12/15/2024 6:45 AM EDT Ancillary Procedure Nicol Dhaliwal [address] [place] [address] Nicol Dhaliwal Start: 12-11-2024 End: 12-11-2024 Patient encounter procedure 12/11/2024 2:30 PM EDT Office Visit [facility] [address] [place] [address] [place] [id number] [address] [facility] [address] [place], [place] [id number] [facility] Start: 12-11-2024 End: 12-11-2025 25-hydroxyvitamin D3 [Mass/volume] in Serum or Plasma Vitamin D 25-Hydroxy,Total (for eval of Vitamin D levels) Lab Routine Hypovitaminosis D Expected: 12/11/2024 (Approximate), Expires: 12/11/2025 [facility] Work Phone: Comment on above: Expected: 12/11/2024 (Approximate), Expi res: 12/11/2025 Start: 12-11-2024 End: 12-11-2025 Lipid 1996 panel - Serum or Plasma Lipid Panel Lab Routine Healthcare maintenance Expected: 12/11/2024 (Approximate), Expires: 12/11/2025 [facility] Service Area Work Phone: Comment on above: Expected: 12/11/2024 (Approximate), Expi res: 12/11/2025 Start: 11-22-2024 End: 11-22-2024 Patient encounter procedure 11/22/2024 10:00 AM EDT Procedure Visit Nicol Dhaliwal [address] [place] [address] Henrietta Herndon MD [address] [place], [place] [phone] Nicol Dhaliwal Start: 11-20-2024 End: 11-20-2025 Blood type and Indirect antibody screen panel - Blood Type And Screen Is this order related to or an upcoming surgery? No Lab Routine Encounter for Rh blood typing Expected: 11/20/2024 (Approximate), Expires: 11/20/2025 [facility] Work Phone: Comment on above: Expected: 11/20/2024 (Approximate), Expi res: 11/20/2025 Start: 11-20-2024 End: 11-20-2025 Chlamydia trachomatis and Neisseria gonorrhoeae DNA [Identifier] in Unspecified specimen by ALEKSEY with probe detection C. trachomatis / N. gonorrhoeae, Amplified, Urogenital Lab Routine Screening for STDs (sexually transmitted diseases) Expected: 11/20/2024 (Approximate), Expires: 11/20/2025 [facility] Work Phone: Comment on above: Expected: 11/20/2024 (Approximate), Expi res: 11/20/2025 Start: 11-20-2024 End: 11-20-2025 Hemoglobin A1c/Hemoglobin.total in Blood Hemoglobin A1C Lab Routine Screening for diabetes mellitus Expected: 11/20/2024 (Approximate), Expires: 11/20/2025 [facility] Work Phone: Comment on above: Expected: 11/20/2024 (Approximate), Expi res: 11/20/2025 Start: 11-20-2024 End: 11-20-2025 Hepatitis B virus surface Ag [Presence] in Serum or Plasma by Immunoassay Hepatitis B surface antigen Lab Routine Screening for STDs (sexually transmitted diseases) Expected: 11/20/2024 (Approximate), Expires: 11/20/2025 [facility] Work Phone: Comment on above: Expected: 11/20/2024 (Approximate), Expi res: 11/20/2025 Start: 11-20-2024 End: 11-20-2025 Hepatitis C virus Ab [Presence] in Serum Hepatitis C Antibody Lab Routine Screening for STDs (sexually transmitted diseases) Expected: 11/20/2024 (Approximate), Expires: 11/20/2025 [facility] Work Phone: Comment on above: Expected: 11/20/2024 (Approximate), Expi res: 11/20/2025 Start: 11-20-2024 End: 11-20-2025 HIV 1+2 Ab+HIV1 p24 Ag [Presence] in Serum or Plasma by Immunoassay HIV 1/2 Antigen/Antibody Screen with Reflex to Confirmation Lab Routine Screening for STDs (sexually transmitted diseases) Expected: 11/20/2024 (Approximate), Expires: 11/20/2025 [facility] Work Phone: Comment on above: Expected: 11/20/2024 (Approximate), Expi res: 11/20/2025 Start: 11-20-2024 End: 11-20-2025 Lutropin [Units/volume] in Serum or Plasma Luteinizing Hormone Lab STAT Female infertility Expected: 11/20/2024 (Approximate), Expires: 11/20/2025 [facility] Work Phone: Comment on above: Expected: 11/20/2024 (Approximate), Expi res: 11/20/2025 Start: 11-20-2024 End: 11-20-2025 Progesterone [Mass/volume] in Serum or Plasma Progesterone Lab STAT Female infertility Expected: 11/20/2024 (Approximate), Expires: 11/20/2025 [facility] Service Area Work Phone: Comment on above: Expected: 11/20/2024 (Approximate), Expi res: 11/20/2025 Start: 11-20-2024 End: 11-20-2025 [facility] ANTI-MULLERIAN HORMONE [facility]), FEMALE [facility] ANTI-[facility]ONE [facility]), FEMALE Lab Routine Fertility testing Expected: 11/20/2024 (Approximate), Expires: 11/20/2025 [facility] Work Phone: Comment on above: Expected: 11/20/2024 (Approximate), Expi res: 11/20/2025 Start: 11-20-2024 End: 11-20-2025 Treponema pallidum IgG+IgM Ab [Presence] in Serum by Immunoassay Syphilis Screen with Reflex Lab Routine Screening for STDs (sexually transmitted diseases) Expected: 11/20/2024 (Approximate), Expires: 11/20/2025 [facility] Work Phone: Comment on above: Expected: 11/20/2024 (Approximate), Expi res: 11/20/2025 Start: 11-20-2024 End: 11-20-2025 TSH with reflex to Free T4 if abnormal TSH with reflex to Free T4 if abnormal Lab Routine Screening for thyroid disorder Expected: 11/20/2024 (Approximate), Expires: 11/20/2025 [facility] Work Phone: Comment on above: Expected: 11/20/2024 (Approximate), Expi res: 11/20/2025 Start: 11-20-2024 End: 11-20-2024 Professional / ancillary services management 11/20/2024 9:45 AM EDT Ancillary Procedure SERGEI Dhaliwal [address] [place] [address] Nicol Dhaliwal Start: 11-18-2024 End: 11-18-2025 Progesterone [Mass/volume] in Serum or Plasma Progesterone Lab STAT Female infertility Expected: 11/18/2024 (Approximate), Expires: 11/18/2025 [facility] Service Area Work Phone: Comment on above: Expected: 11/18/2024 (Approximate), Expi res: 11/18/2025 Start: 11-18-2024 End: 11-18-2024 Professional / ancillary services management 11/18/2024 10:00 AM EDT Ancillary Procedure SERGEI Dhaliwal [address] [place] [address] Camarenaangelica Ackermantuckerfaye Start: 11-16-2024 End: 11-16-2024 Professional / ancillary services management 11/16/2024 7:45 AM EDT Ancillary Procedure Camarenaangelica Hagen Madhuri [address] [place] [address] Camarenaangelica Ackermanjuanito Start: 11-14-2024 End: 11-14-2025 Estradiol (E2) [Mass/volume] in Serum or Plasma Estradiol Lab STAT Female infertility Expected: 11/14/2024 (Approximate), Expires: 11/14/2025 [facility] Service Area Work Phone: Comment on above: Expected: 11/14/2024 (Approximate), Expi res: 11/14/2025 Start: 11-14-2024 End: 11-14-2024 Professional / ancillary services management 11/14/2024 7:15 AM EDT Ancillary Procedure Nicol Jimdae Dhaliwal [address] [place] [address] Nicol Dhaliwal Start: 11-08-2024 End: 11-08-2025 Estradiol (E2) [Mass/volume] in Serum or Plasma Estradiol Lab STAT Female infertility Expected: 11/08/2024 (Approximate), Expires: 11/08/2025 [facility] Service Area Work Phone: Comment on above: Expected: 11/08/2024 (Approximate), Expi res: 11/08/2025 Start: 10-31-2024 End: 10-31-2024 Social Work 10/31/2024 12:[address] [facility] Social [address] [place] [phone] [facility] Start: 10-27-2024 End: 10-27-2024 ambulatory 10/27/2024 8:[address] [place] [phone] Marcia Kiser, BLADDER CLEANER-CAR MECHANIC HELPER [address] Jannet [address]oura Department of Medicine-Geriatrics [place] [phone] [facility] Start: 10-18-2024 End: 10-18-2024 Social Work 10/18/2024 11:15 AM EST [address] [place] [phone] [facility] Start: 10-13-2024 End: 10-13-2024 ambulatory 10/13/2024 8:00 AM EST [address] [place] [phone] Marcia Kiser, BLADDER CLEANER-CAR MECHANIC HELPER [address] Department of Medicine-Geriatrics [place] [phone] [facility] Start: 10-11-2024 End: 10-11-2024 Patient encounter procedure 10/11/2024 9:15 AM EST Procedure Visit Nicol Dhaliwal [address] [place] [phone] Henrietta Herndon MD [address] [place] [address] Nicol Dhaliwal Start: 10-08-2024 End: 10-08-2024 Professional / ancillary services management 10/08/2024 8:30 AM EST Ancillary Procedure Nicol Aliciaon [address] [place] [address] Nicol Hagen Pavtuckeron Start: 10-07-2024 End: 10-07-2024 Professional / ancillary services management 10/07/2024 9:00 AM EST Ancillary Procedure Nicol Aliciaon [address] [place] [address] Nicol Dhaliwal Start: 10-03-2024 End: 10-03-2024 [facility] Start: 09-29-2024 End: 09-29-2024 ambulatory 09/29/2024 8:00 AM EST [address] [place] [address] Marcia Kiser, BLADDER CLEANER-CAR MECHANIC HELPER [address] Department of [place] [address] [facility] Start: 09-15-2024 End: 09-15-2024 ambulatory 09/15/2024 8:00 AM EST [address] [place] [address] Marcia Kiser, BLADDER CLEANER-CAR MECHANIC HELPER [address] [address] [facility] Department [place] [address] [facility] Start: 08-13-2024 End: 10-14-2024 Choriogonadotropin ( test) [Presence] in Urine POCT , urine manually resulted Point of Care Testing Routine Encounter for preprocedural laboratory examination Expected: 08/13/2024 (Approximate), Expires: 10/14/2024 [facility] Service Area Work Phone: Comment on above: Expected: 08/13/2024 (Approximate), Expi res: 10/14/2024 Start: 08-13-2024 End: 07-14-2025 Hysteroscopy diagnostic Hysteroscopy diagnostic Procedures Routine Fertility testing Expected: 08/13/2024 (Approximate), Expires: 07/14/2025 [facility] Work Phone: Comment on above: Expected: 08/13/2024 (Approximate), Expi res: 07/14/2025 Start: 04-30-2024 COVID-19 Vaccine ( season) COVID-19 Vaccine ( season) [facility] Start: 12-09-2023 Liquid based cervical cytology screening [facility] Start: 10-01-2023 Colonoscopy w/biopsy single/multiple COLONOSCOPY AND BIOPSY [facility] Start: 10-01-2023 Egd transoral biopsy single/multiple EGD BIOPSY SINGLE/MULTIPLE [facility] Start: 10-01-2023 Patient discharge [facility] Start: 08-07-2023 Protein measurement [facility] Start: 08-03-2023 Procedure [facility] Start: 05-04-2023 End: 05-04-2023 Patient encounter procedure 05/04/2023 7:50 AM EDT Office Visit [facility] [address] [place] [id number] Landy Blair, BLADDER CLEANER - CAR MECHANIC HELPER [address] [place] [address] [facility] Start: 04-30-2023 COVID-19 Vaccine ( season) COVID-19 Vaccine () [facility] Start: 04-30-2023 Influenza vaccination Influenza Vaccine (#1) [facility] Start: 04-10-2022 Iv infusion therapy/prophylaxis /dx 1st to 1 hr THER/PROPH/DIAG IV INF INIT [facility] Work Phone: Start: 03-05-2022 Celiac disease screen [facility] Work Phone: Start: 03-05-2022 Cytomegalovirus IgG antibody measurement [facility] Work Phone: Start: 03-05-2022 Cytomegalovirus IgM antibody assay [facility] Work Phone: Start: 03-05-2022 Immunoglobulin measurement [facility] Work Phone: Start: 03-05-2022 Serum immunofixation [facility] Work Phone: Start: 03-05-2022 [facility] Work Phone: Start: 2016 DTaP/Tdap/Td Vaccines (1 - Tdap) DTaP/Tdap/Td Vaccines (1 - Tdap) [facility] Start: 2015 Screening for malignant neoplasm of cervix [facility] Start: 2013 DTaP/Tdap/Td Vaccines (1 - Tdap) DTaP/Tdap/Td Vaccines (1 - Tdap) [facility] Start: 2013 Hepatitis B Vaccines (1 of 3 - 19+ 3-dose series) Hepatitis B Vaccines (1 of 3 - 19+ 3-dose series) [facility] Start: 2012 Hepatitis C screening Hepatitis C Screening [facility] Start: 2007 Varicella vaccination Varicella Vaccines (1 of 2 - 13+ 2-dose series) [facility] Start: 2006 Depression Screening Depression Screening [facility] Start: 1995 MMR Vaccines (1 of 1 - Standard series) MMR Vaccines (1 of 1 - Standard series) [facility] Start: 1995 Varicella vaccination Varicella Vaccines (1 of 2 - 2-dose childhood series) [facility] Start: 01-08-1995 COVID-19 Vaccine (#1) COVID-19 Vaccine (#1) [facility] Start: 1994 Cyanocobalamin vitamin b-12 Vitamin B-12 [facility] Start: 1994 Hepatitis B Vaccines (1 of 3 - 3-dose series) Hepatitis B Vaccines (1 of 3 - 3-dose series) [facility] Start: 1994 HIV screening HIV Screening [facility] Start: 1994 Lipid panel Lipid Panel [facility] Start: 1994 Screening for osteoporosis Bone Density Scan [facility] Start: 1994 TB Test TB Test [facility] Start: 1994 Vitamin D25-OH Vitamin D25-OH [facility] Start: 1994 Yearly Adult Physical Yearly Adult Physical [facility] Alanine aminotransfe rase [Enzymatic activity/volume] in Serum or Plasma [facility] Albumin [Mass/volume ] in Serum or Plasma [facility] Albumin [Moles/volum e] in Serum or Plasma [facility] Work Phone: Albumin/Globulin ratio [facility] Work Phone: Alkaline phosphatase [Enzymatic activity/volume] in Serum or Plasma [facility] Anion gap in Serum or Plasma [facility] Antibody to lupus La protein measurement [facility] Work Phone: Antibody to SS-A measurement [facility] Work Phone: Bilirubin, total measurement [facility] BUN/Creatinine ratio [facility] C reactive protein [Mass/volume] in Serum or Plasma [facility] Calcium [Mass/volume ] in Serum or Plasma [facility] Carbon dioxide, tota l [Moles/volume] in Central venous blood [facility] CBC W Auto Different ial panel - Blood [facility] Centromere protein B Ab [Units/volume] in Serum [facility] Work Phone: Chlamydia deoxyribon ucleic acid detection [facility] Chlamydia deoxyribon ucleic acid detection [facility] End: 01-22-2025 Chlamydia trachomatis and Neisseria gonorrhoeae DNA [Identifier] in Unspecified specimen by ALEKSEY with probe detection [facility] Work Phone: Comment on above: Once (Lab) for 1 Occurrences starting until 01/22/2025 End: 10-11-2024 Choriogonadotropin ( test) [Presence] in Urine POCT , urine manually resulted Point of Care Testing Routine Once (Lab) for 1 Occurrences starting 10/11/2024 until 10/11/2024 [facility] Work Phone: Comment on above: Once (Lab) for 1 Occurrences starting until 10/11/2024 End: 11-22-2024 Choriogonadotropin ( test) [Presence] in Urine POCT , urine manually resulted Point of Care Testing Routine Once (Lab) for 1 Occurrences starting 11/22/2024 until 11/22/2024 [facility] Work Phone: Comment on above: Once (Lab) for 1 Occurrences starting until 11/22/2024 Chromatin Ab [Units/ volume] in Serum or Plasma [facility] Work Phone: Clostridioides diffi cile DNA [Presence] in Unspecified specimen by ALEKSEY with probe detection [facility] Work Phone: Colonoscopy [facility] Creatinine [Mass/vol ume] in Serum or Plasma [facility] Cytomegalovirus IgG antibody measurement [facility] Work Phone: Cytomegalovirus IgM antibody assay [facility] Work Phone: Dehydroepiandrostero ne sulfate (DHEA-S) [Mass/volume] in Serum or Plasma [facility] DNA double strand Ab [Units/volume] in Serum [facility] Work Phone: Electrophoresis: [id number] [facility] Work Phone: Electrophoresis: emiliana ma globulin [facility] Work Phone: Erythrocyte mean cor puscular volume determination [facility] Erythrocyte sedimentation rate [facility] End: 02-05-2025 Estradiol (E2) [Mass/volume] in Serum or Plasma Estradiol Lab STAT Female infertility Daily (including weekends) for 8 Occurrences starting 10/08/2024 until 02/05/2025 [facility] Service Area Work Phone: Comment on above: Daily (including weekends) for 8 Occurre nces starting 10/08/2024 until 02/05/2025 End: 01-22-2025 Extra Urine Costello Tube [facility] Work Phone: Comment on above: Once for 1 Occurrences starting 01/23/20 until 01/22/2025 Folate [Moles/volume ] in Serum or Plasma [facility] Gastrointestinal pat hogens panel - Stool by ALEKSEY with probe detection [facility] Work Phone: Globulin measurement [facility] Work Phone: Glucose [Mass/volume ] in Serum or Plasma [facility] Hematocrit [Volume F raction] of Blood [facility] Hemoglobin [Mass/vol ume] in Blood [facility] Hemoglobin A1c/Hemoglobin.total in Blood [facility] Hepatitis B virus sy rface Ag [Presence] in Serum [facility] Hepatitis C antibody measurement [facility] IgA [Mass/volume] in Serum or Plasma [facility] Work Phone: IgE [Units/volume] i n Serum or Plasma [facility] Work Phone: IgG [Mass/volume] in Serum or Plasma [facility] Work Phone: IgM [Mass/volume] in Serum or Plasma [facility] Work Phone: Areli-1 extractable nuc lear Ab [Units/volume] in Serum [facility] Work Phone: Lactoferrin [Presenc e] in Stool by Immunoassay [facility] Work Phone: Leukocytes [#/volume] in Blood [facility] End: 02-05-2025 Lutropin [Units/volume] in Serum or Plasma Luteinizing Hormone (LH) Lab STAT Female infertility Daily (including weekends) for 3 Occurrences starting 10/08/2024 until 02/05/2025 [facility] Work Phone: Comment on above: Daily (including weekends) for 3 Occurre nces starting 10/08/2024 until 02/05/2025 Mean corpuscular hem oglobin concentration determination [facility] Mean corpuscular hem oglobin determination [facility] Measurement of immun oglobulin A in serum specimen [facility] Work Phone: Measurement of renal function [facility] Neutrophil count [facility] Neutrophil cytoplasm ic Ab.classic [Units/volume] in Serum [facility] Work Phone: Neutrophil percent differential count [facility] Ova and parasites id entified in Unspecified specimen by Light microscopy [facility] Work Phone: P-ANCA measurement [facility] Work Phone: Path report.final Dx Spec [facility] Patient referral [facility] Work Phone: Platelets [#/volume] in Blood [facility] Potassium measurement [facility] Procedure [facility] Procedure [facility] Procedure [facility] End: 02-04-2025 Progesterone [Mass/volume] in Serum or Plasma Progesterone Lab STAT Female infertility Daily (including weekends) for 3 Occurrences starting 10/07/2024 until 02/04/2025 [facility] Service Area Work Phone: Comment on above: Daily (including weekends) for 3 Occurre nces starting 10/07/2024 until 02/04/2025 End: 02-05-2025 Progesterone [Mass/volume] in Serum or Plasma Progesterone Lab STAT Female infertility Daily (including weekends) for 3 Occurrences starting 10/08/2024 until 02/05/2025 [facility] Work Phone: Comment on above: Daily (including weekends) for 3 Occurre nces starting 10/08/2024 until 02/05/2025 Prolactin [Mass/volu me] in Serum or Plasma [facility] Protein electrophore sis panel - Serum or Plasma [facility] Work Phone: Protein measurement [facility] Work Phone: Protein measurement [facility] Red blood cell count [facility] Red cell distributio n width determination [facility] TERRENCE US Endometrial L ining Check [facility] Endometrial Lining Check Imaging Routine Female infertility 12/15/2024 7:02 AM EDT [facility] Service Area Work Phone: TERRENCE US Pelvis Limite d Follicles - Follicle Studies Performed [facility] Pelvis Limited Follicles - Follicle Studies Performed Imaging Routine Female infertility 09/27/2024 7:51 AM EST [facility] Service Area Work Phone: TERRENCE US Pelvis Limite d Follicles - Follicle Studies Performed [facility] Pelvis Limited Follicles - Follicle Studies Performed Imaging Routine Female infertility 10/09/2024 9:42 AM EST [facility] Service Area Work Phone: Rubella IgG measurement [facility] SCL-70 extractable n uclear Ab [Units/volume] in Serum by Immunoassay [facility] Work Phone: Serologic test for syphilis [facility] Serum chloride measurement [facility] Serum protein electrophoresis [facility] Work Phone: Ferrell extractable nu clear Ab [Presence] in Serum [facility] Work Phone: Sodium measurement [facility] Testosterone Free [Mass/volume] in Serum or Plasma [facility] Thyroid stimulating hormone measurement [facility] Tissue transglutamin ase IgA Ab [Units/volume] in Serum [facility] Work Phone: Total protein measurement [facility] Urea nitrogen [Mass/ volume] in Serum or Plasma [facility] End: 01-22-2025 Urinalysis complete W Reflex Culture panel - Urine [facility] Work Phone: Comment on above: Once (Lab) for 1 Occurrences starting until 01/22/2025 US Pelvis [facility] US Pelvis transvaginal [place] [facility] Immunizations Immunization Date Immunization Notes Care Provider Deedee ferguson 07-06-2023 influenza virus vaccine, unspecified formulation ERNA TROTTER MD [facility] Payers Date Payer Category Payer Self-pay [id number] 2023 Blue [employer] Blue Shie ld Managed Care [id number]. 9.6 [id number] 2022 Unknown [id number]. 1.13.680.2.7.3.6 [id number] 2017 Unknown [id number] 1994 Unknown [id number] 2..840.1.220610.3.579.2.627 1994 Unknown [id number] 2.16.840.1.119524.3.579.2.627 1994 Unknown [id number] 2.16840.1.891697.3.579.2.627 1994 Unknown [id number] 2.16840.1.783117.3.579.2.627 1994 Unknown [id number] 2.16840.1.907999.3.579.2.627 1994 Unknown [id number] 2.16840.1.942530.3.579.2.1244 1994 Unknown [id number] 2.16.840.1.414319.3.579.2.1244 1994 Unknown [id number] 2.16.840.1.199350.3.579.2.1243 1994 Unknown [id number] 2.16.840.1.085310.3.579.2.1243 1994 Unknown [id number] 2.16.840.1.587069.3.579.2.1241 1994 Unknown [id number] 2.16.840.1.590455.3.579.2.1241 1994 Unknown [id number] 2.16.840.1.644602.3.579.2.1241 1994 Unknown [id number] 2.16.840.1.024345.3.579.2.1244 1994 Unknown [id number] 2.16840.1.482883.3.579.2.1244 1994 Unknown [id number] 2.16840.1.704715.3.579.2.1244 1994 Unknown [id number] 2.16840.1.490841.3.579.2.1244 1994 Unknown [id number] 2.16.840.1.962448.3.579.2.1244 1994 Unknown [id number] 2.16840.1.608473.3.579.2.1244 1994 Unknown [id number] 2.16.840.1.080190.3.579.2.1244 1994 Unknown [id number] 2.16.840.1.147662.3.579.2.1244 1994 Unknown [id number] 2.16.840.1.601988.3.579.2.1244 1994 Unknown [id number] 2.16.840.1.643960.3.579.2.1244 1994 Unknown [id number] 2.16.840.1.943962.3.579.2.124 1994 Unknown [id number] 2.16.840.1.067133.3.579.2.1244 1994 Unknown [id number] 2.16840.1.163224.3.579.2.1244 1994 Unknown [id number] 2.16840.1.746505.3.579.2.1244 1994 Unknown [id number] 2.16840.1.815690.3.579.2.1244 1994 Unknown [id number] 2.16840.1.557767.3.579.2.1244 1994 Unknown [id number] 2.16840.1.906901.3.579.2.1244 1994 Unknown [id number] 2.0.1.045497.3.579.2.1244 1994 Unknown [id number] 2.840.1.664354.3.579.2.1244 1994 Unknown [id number] 2.840.1.668268.3.579.2.1244 1994 Unknown [id number] 2.16840.1.970697.3.579.2.1244 1994 Unknown [id number] 2.840.1.864006.3.579.2.1244 1994 Unknown [id number] 2.840.1.455091.3.579.2.1244 1994 Unknown [id number] 2.16840.1.882339.3.579.2.1244 1994 Unknown [id number] 2.16840.1.349445.3.579.2.1244 1994 Unknown [id number] 2.16840.1.301869.3.579.2.1244 1994 Unknown [id number] 2.16.840.1.907677.3.579.2.1245 1994 Unknown [id number] 2.0.1.932447.3.579.2.1244 1994 Unknown [id number] 2.840.1.171121.3.579.2.124 1994 Unknown [id number] 2.0.1.338083.3.579.2.1244 1994 Unknown [id number] 2.0.1.028044.3.579.2.1244 1994 Unknown [id number] 2.0.1.655894.3.579.2.479 1994 Unknown [id number] 2.0.1.589810.3.579.2.479 1994 Unknown [id number] 2.0.1.427914.3.579.2.627 [facility] ([facility] and others) [id number] Unknown [facility] [id number] Unknown [id number] Unknown [facility] [id number] Unknown [id number] 2.0.1.355767.3.579.2.462 Unknown [id number] 2.0.1.643303.3.579.2.462 Unknown [id number] 2.840.1.429877.3.579.2.462 Unknown [id number] 2.0.1.405231.3.579.2.462 Unknown [id number] 2.16.840.1.226663.3.579.2.462 Unknown [id number] 2.16.840.1.028973.3.579.2.462 Unknown [id number] 2.16.840.1.872016.3.579.2.462 Unknown [id number] 2.16.840.1.985408.3.579.2.462 Unknown [id number] 2.16.840.1.552547.3.579.2.462 Unknown [id number] 2.16.840.1.436584.3.579.2.462 Unknown [id number] 2.16.840.1.345356.3.579.2.462 Unknown [id number] 2.16.840.1.350488.3.579.2.462 Unknown [id number] 2.16840.1.361409.3.579.2.462 Unknown [id number] 2.16840.1.406694.3.579.2.462 Unknown [id number] 2.16.840.1.787384.3.579.2.462 Unknown [id number] 2.16.840.1.925909.3.579.2.462 Unknown [id number] 2.16.840.1.031564.3.579.2.462 Unknown [id number] 2.16840.1.455527.3.579.2.462 Unknown [id number] 2.16840.1.592197.3.579.2.462 Unknown [id number] 2.16840.1.985521.3.579.2.462 Social History Date Type Detail Facility Tobacco smoking status PRIS Unknown if ever smoked [facility] Work Phone: Start: 1995 Sex Assigned At Female [facility] Start: 08-03-2023 End: 12-09-2023 Tobacco smoking status PRIS Tobacco smoking consumption unknown [facility] Start: 1995 Sex Assigned At [facility] file [facility] Start: 01-25-2024 End: 12-11-2024 Gender identity Not on file [facility] Start: 04-20-2023 End: 01-26-2025 Tobacco smoking status Never smoked tobacco (finding) [facility] Start: 01-25-2024 Tobacco use and exposure Smokeless tobacco non-user [facility] Work Phone: Start: 01-25-2024 End: 01-09-2025 Alcoholic beverage intake Ex-drinker (finding) [facility] Work Phone: Start: 01-25-2024 End: 12-11-2024 History of Social function [facility] Work Phone: Start: 09-30-2023 Gender identity Identifies as female gender (finding) [facility] Work Phone: Start: 09-30-2023 Sexual orientation Heterosexual (fin ding) [facility] Work Phone: Start: 01-15-2024 End: 01-25-2024 Exposure to SARS-CoV-2 (event) Unable to assess [facility] Start: 07-04-2024 End: 01-25-2025 Exposure to SARS-CoV-2 (event) Not sure [facility] NEGATED: Highlighted rowStart: NINF History of tobacco use Passive smoker [facility] Work Phone: Medical Equipment Procedure Code Equipment Code Equipment Origin al Text Equipment Identifier Dates [id number], [id number] Star t: 08-18-2024 End: 11-22-2024 Goals Date Patient Goal Desired Activity /State Functional Status Date Assessment Result Facility 01-22-2025 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 [C-SSRS] [facility] Work Phone: 08-27-2023 Functional Status Awake, Up to bathroom [facility] 08-27-2023 Functional Status bilateral knee high applied/on [facility] 08-27-2023 Functional Status [facility] 08-13-2023 Functional Status Sensory Deficits None A [facility] Mental Status Date Assessment Result Facility 10-01-2023 Cognitive function Level Of Cons ciousness Follows Commands;Drowsy [facility] Work Phone: 10-01-2023 Cognitive function Voice/Name [facility] Work Phone: 08-27-2023 Mental Status Oriented x 4 [facility] 08-27-2023 Mental Status [facility] Clinical Notes 04-05-2023 to 05-11-2025 Note Date & Type Note Facility 05-11-2025 Progress note [facility] 05-11-2025 Progress note Note Date/Time May 11, 2025 2:14pm [facility] [address], [address] [place] [address] OFFICE VISIT Date of Service: 05/11/25 MR#: [id number] Acct: [id number] Name: MARIXA AMOS Rep #: [id number] : 1995 Provider: STEFANIE Lo Age/Sex: 29/F Location: [facility] Status: Signed Intake Vital Signs 05/01/25 14:59 05/11/25 13:52 Height 5 ft 3 in 5 ft 3 in Weight: 201 lb 6 oz BMI 35.6 BP 130/86 H Intake Visit Reasons: FHT check, spotting Chief Complaint: FHT Check, Spotting Personal Development Educator Required: No Is patient in pain?: No [...] mg-folate no.1 1 mg-dha 300 mg capsule (PNV-Rome) famotidine 40 mg tablet 40 mg PO BID PRN 05/11/25 H istory mesalamine 1,000 mg rectal 1,000 mg [place] QHS 05/11/25 History suppository (Canasa) prednisone 10 [...] 3-4 times per week duration: 45-60 minutes/day cathy/buddhist: None seatbelt use: always do you feel safe at home: Yes 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 took [facility] wednesday. 05/11/25 -?-?-?-?-?-?-?-?-?-?-?-?- 22w 1d 201 lb 6 oz (+16 lb 6 oz) 130/86 Negative -?-?-?--?-?-?-?-?-?-?-?-?- Negative 147 22 -?-?-?-?-?-?-?-?-?-?-?-?- KW- work in for vaginal bleeding/no cramping. +fm. Had UC flair and was trying to get in to see friend. Office never called back per pt so she found new provider in [place] and was placed on other medications. Also [...] Office Urine Glucose Negative Last Edit by Sanrda Rodas on 05/11/25 13:56 Office Urine Protein [...] this visit. [place] appropriate handout given. 05/11/25 [id number] <Electronically signed by Iesha das CNM> Date _ Iesha Lo CNM [facility] Signature: Date (if applicable) CC: ~ [facility] Work Phone: 1(747) 896-942509-02-2025 Progress [facility] [address] [place] [address], [address] [place] [address] OFFICE VISIT Date of Service: 05/01/25 MR#: [id number] Acct: [id number] Name: MARIXA AMOS Rep #: [id number] : 1995 Provider: Dr. 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 [facility]. ACOG First Trimester First Trimester: Desire [...] Symptoms of Preeclampsia, Infant Feeding No , [place] Education and Family Medical Leave or Disability [...] Comment: Pt reports dx, pt of [facility]. needs MFM consult. (2) resulting from in [...] Cosigner Signature: Date (if applicable) CC: ~ [facility]09-02-2025 Progress note Author Carmen Lugo [facility] Services Note Date/Time May 01, 2025 3:19pm [facility] [address], [address] [place] [address] OFFICE VISIT Date of Service: 05/01/25 MR#: [id number] Acct: [id number] Name: MARIXA AMOS Rep #: [id number] : 1995 Provider: Dr. Lukas Lugo MD Age/Sex: 29/F Location: [facility] Status: Signed Intake Vital Signs 03/09/25 11:36 04/06/25 13:00 05/01/25 14:59 Height 5 ft 3 in 5 ft 3 in 5 ft 3 in Weight: 200 lb 7 oz BMI 35.5 BP 125/78 H Intake Visit Reasons: 21wk ob *IVF Personal Development Educator Required: No Is patient in pain?: No [...] mg-folate no.1 1 mg-dha 300 mg capsule (PNV-Rome) ondansetron 4 mg disintegrating 4 mg PO Q6H PRN nausea and 02/23/25 05/01/25 Rx tablet vomiting #30 tabs famotidine 40 mg tablet 40 mg PO BID #60 tabs 05/01/25 Rx Last Menstrual Period: 10/19/24 Zika: Zika virus screening: Negative : No PFSH [facility] Medical History (Updated 05/01/25 @ 15:16 by [...] 3-4 times per week duration: 45-60 minutes/day cathy/buddhist: None seatbelt use: always do you feel safe at home: Yes 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 [facility] wed[facility]. ACOG First Trimester First Trimester: Desire [...] Pt reports dx, pt of . [facility]. needs MFM consult. (2) resulting from in [...] Koo Signature: Date (if applicable) CC: ~ [facility] Work Phone: 1(744) 387-123006-27-2025 Progress [facility] [address], [address] [place] [address] OFFICE VISIT Date of Service: 02/23/25 MR#: [id number] Acct: [id number] Name: MARIXA AMOS Rep #: [id number] : 1995 Provider: Dr. 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 Elective abortions Hx Para 0 [...] and Symptoms of Preeclampsia, Feeding No , [place] Education and Family Medical Leave or Disability [...] Rowley Signature: Date (if applicable) CC: ~ [facility]06-10-2025 Progress [facility] [address] [place] [address], [address] [place] [address] OFFICE VISIT Date of Service: 02/06/25 MR#: [id number] Acct: [id number] Name: MARIXA AMOS Rep #: [id number] : 1995 Provider: STEFANIE Lo Age/Sex: 29/F Location: [facility] Status: Signed Intake Vital Signs 07/12/24 08:32 02/02/25 15:25 02/06/25 08:17 Height 5 ft 3 in 5 ft 3 in 5 ft 3 in Weight: 185 lb 8 oz BMI 32.8 BP 118/70 Intake Visit Reasons: *EST* NOB IVF 12/26, GIL 09/13/25 Personal Development Educator Required: No Is patient in pain?: No [...] mg-folate no.1 1 mg-dha 300 mg capsule (PNV-Rome) prednisone 10 mg tablet 10 mg PO [...] 3-4 times per week duration: 45-60 minutes/day cathy/buddhist: None seatbelt use: always do you feel safe at home: Yes 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 Elective abortions Hx Para 0 [...] Pulmonary (e.g.,TB,Asthma), Seasonal allergies, Drug/latex allergies/reactions, Breast, Flight Dynamicist surgery, Anesthetic complications, History of abnormal pap, [...] and Symptoms of Preeclampsia, Feeding Yes , [place] Education and Family Medical Leave or Disability [...] Marte Signature: Date (if applicable) CC: ~ [facility] [id number] [facility] [address] [place] [address], [address] [place] [address] OFFICE VISIT Date of Service: 02/02/25 MR#: [id number] Acct: [id number] Name: MARIXA AMOS Rep #: [id number] : 1995 Provider: STEFANIE Allen Age/Sex: 29/F Location: [facility] [place] Status: Signed Intake Vital Signs 01/25/25 14:45 02/02/25 15:25 Height 5 ft 3 in 5 ft 3 in Weight: 184 lb 8 oz 186 lb 4 oz BMI 32.6 33.0 BP 128/62 H 143/86 H Blood Pressure Location Rt brachial Position Sitting Intake Visit Reasons: fu early spotting per Personal Development Educator Required: No Is patient in pain?: No [...] mg-folate no.1 1 mg-dha 300 mg capsule (PNV-Rome) prednisone 10 mg tablet 10 mg PO QDAY 01/26/2502/02 History progesterone oil 75 mg IM QHS 01/26/25 History Post menopausal: No Patient : Yes : No [facility] Medical History Obesity (BMI 30.0-34.9) Other obesity [...] 3-4 times per week duration: 45-60 minutes/day cathy/buddhist: None seatbelt use: always do you feel safe at home: Yes 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 HPI fu early spotting per SM Details: [...] 02/02/25 1609 ns CNM> Date _ Mary Bethneomi Allen STEFANIE Cosigner Signature: Date (if applicable) CC: ~ [facility]06-06-2025 Progress note Author Mary Beth Allen [facility] Note Date/Time February 02, 2025 4:09p [facility] [address], [address] [place] [address] OFFICE VISIT Date of Service: 02/02/25 MR#: [id number] Acct: [id number] Name: MARIXA AMOS Rep #: [id number] : 1995 Provider: STEFANIE Allen Age/Sex: 29/F Location: [facility] [place] Status: Signed Intake Vital Signs 01/25/25 14:45 02/02/25 15:25 Height 5 ft 3 in 5 ft 3 in Weight: 184 lb 8 oz 186 lb 4 oz BMI 32.6 33.0 BP 128/62 H 143/86 H Blood Pressure Location Rt brachial Position Sitting Intake Visit Reasons: fu early spotting per Personal Development Educator Required: No Is patient in pain?: No [...] mg-folate no.1 1 mg-dha 300 mg capsule (PNV-Rome) prednisone 10 mg tablet 10 mg PO QDAY 01/26/2502/02 History progesterone oil 75 mg IM QHS 01/26/25 History Post menopausal: No Patient : Yes : No [facility] Medical History Obesity (BMI 30.0-34.9) Other obesity [...] 3-4 times per week duration: 45-60 minutes/day cathy/buddhist: None seatbelt use: always do you feel safe at home: Yes 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 Will see [facility] [place], [place] on 01-26-2025. Will provide recommendations if [...] CNP 01/25/25 2:50 PM [facility] Phone: [phone] Physician Emergency department Note* ISAURA Daniel - [...] vomiting. History provided by: Patient and spouse interpreter used: No Patient History Medical History[1] Surgical [...] Currently Drug use: Never ISAURA Daniel 01/22/25 1327 [facility] Work Phone: [phone] Emergency department Note* ISAURA Daniel - 01/22/2025 [...] vomiting. History provided by: Patient and spouse interpreter used: No Patient History Medical History[1] Surgical [...] issues at this time. [facility] Work Phone: [phone] Emergency department Triage note* Candi Kurtz RN - 01/22/2025 11:13 AM EDT Patient to ED for vaginal discharge. Patient reports being 6 weeks and noticed brown odorless discharge on Wednesday. Patient also reporting lower back pain. Patient denies any urinary issues at this time. [facility] Work Phone: [phone] 545-384405-05-2025 Evaluation note* Diagnosis Onset Date Resolution Status Admit Date Chronic GERD chronic January 01 7:22am Ulcerative colitis chronic December 7:22am [facility] Work Phone: [phone] Evaluation note* Diagnosis Onset Date Resolution Status Admit Date Chronic GERD chronic January 01 7:22am Ulcerative colitis chronic December h2024 7:22am Amenorrhea acute January 26, 2025 12:46pm Subchorionic hematoma in fir st trimester acute February 02, 2025 3 :00pm [facility] Work Phone: [phone] 192-980205-05-2025 Evaluation note* Diagnosis Onset Date Resolution Status [...] 8:12am Ulcerative colitis chronic January 282024 8:12am [facility] Work Phone: [phone] Evaluation note* Diagnosis Onset Date Resolution Status [...] 10:46am Ulcerative colitis chronic January 292024 10:46am [facility] Work Phone: [phone]) 178-959605-05-2025 Evaluation note* Diagnosis Onset Date Resolution Status [...] 11:16am Ulcerative colitis chronic February 272024 11:16am [facility] Work Phone: [phone] 610-296005-05-2025 Evaluation note* Diagnosis Onset Date Resolution Status [...] Ulcerative colitis chronic April 06, 2025 12:46pm [facility] Work Phone: [phone]) 382-757305-05-2025 Evaluation note* Diagnosis Onset Date Resolution Status [...] 025 2:53pm Ulcerative colitis chronic 2024 2:53pm [facility] Work Phone: [phone]) [phone] History of Present illness Narrative* Gavino Tristan [...] Preop diagnosis: Infertility Post op diagnosis: Same Steam Roller Operator: Dr. Holder Depth: 7 cm Curve: anterior [...] Tristan 12/26/24 11:35 AM [facility] Work Phone: [phone]) [phone] Hospital Discharge instructions* Discharge Instructions* Sarah Bansal RN - 12/26/2024 10:41 AM EDT Images from the original note were not included. [facility] [address]. [place] [address] Home Going Instructions after Embryo Transfer: After [...] in : Advil, Motrin, Ibuprofen, Aleve, Excedrin, Michelle-Mccalla, Sudafed, and Pepto-Bismol. Avoid aspirin unless you [...] SARAH BANSAL 10:41 AM documented in this [facility] Work Phone: [phone]) 275-963404-23-2025 History of Present illness Narrative* Anabell Rogel MD - 12/20/2024 1:00 PM EDT Lg Amos is a 29 y.o. female who presents for the following: Wart (Right 3rd toe plantar wart-pt states was treated with ln2 at [facility]. ). Review of Systems: No [...] Anabell Rogel MD 12/20/2024 [facility] Work Phone: [phone]) [phone] History of Present illness Narrative* Amy Cherry [...] - Amy Cherry RN documented [facility] Work Phone: [phone] Evaluation + Plan note* Assessment & Plan Note - Denise Ordonez MD - 12/11/2024 2:30 PM EDTAssociated Problem(s): Polycystic ovarian disease She is following with gynecology. [facility] Work Phone: [phone] Evaluation + Plan note* Assessment & Plan Note - Denise Ordonez MD - 12/11/2024 2:30 PM EDTAssociated Problem(s): Crohn's disease of colon without complication (Multi) She is following with gastroenterology. [facility] Work Phone: [phone] History of Present illness Narrative* Denise Ordonez [...] is following with gastroenterology. documented in this [facility] Work Phone: [phone] Miscellaneous Notes* Assessment & Plan Note - Denise Ordonez MD - 12/11/2024 2:30 PM EDTAssociated Problem(s): Polycystic ovarian disease She is following with gynecology. * Assessment & Plan Note - Denise Ordonez MD - 12/11/2024 2:30 PM EDTAssociated Problem(s): Crohn's disease of colon without complication (Multi) She is following with gastroenterology. [facility]: [phone] 496-347103-26-2025 Nurse Note* Michaelle López RN - 11/22/2024 11:20 AM EDT Patient discharged to home in stable condition via wheelchair to RIDE HOME: Partner's car. Discharge instructions given and concerns addressed. [facility] Work Phone: [phone] Nurse Note* Michaelle López RN - 11/22/2024 11:20 AM EDT Patient discharged to home in stable condition via wheelchair to RIDE HOME: Partner's car. Discharge instructions given and concerns addressed. [facility] Work Phone: [phone]) 292-793303-26-2025 History of Present illness Narrative* Henrietta Herndon [...] diagnosis: Female infertility Post op diagnosis: Same Steam Roller Operator: Leslie IV Fluids: 700 cc EBL: 5 cc UOP: Not recorded Specimen: Oocytes Complications: None Number of Oocytes right ovary: 14 Ovarian acc ss (right): Easy Number of Oocytes left ovary: 9 Ovarian access (left): Easy Endometrial thickness: TL Needle type: Single Additional notes: I was present and supervised the entire procedure. Henrietta Herndon 11/22/24 10:16 AM documented in this [facility] Work Phone: [phone] Hospital Discharge instructions* Discharge Instructions* Sarah Bansal RN - 11/22/2024 8:38 AM EDT Images from the original note were not included. [facility] [address]. [place] [id number] Home Going Instructions after Egg Retrieval: Activity: [...] 2 weeks following your oocyte retrieval. Call [phone] to speak with a Physician or Nurse if you have any concerns. SARAH BANSAL 8:38 AM [facility] [address]. [place], [place] IVF LAB EMBRYO UPDATE PROTOCOL The [...] frozen. SARAH BANSAL 8:38 AM [facility] [address]. [place] [address] Frozen Embryo Transfer Instructions After your egg retrieval, follow up with your IVF nurse within 3-4 days Wednesday- Wednesday regarding theplan for your frozen embryo transfer (FET) cycle. Your IVF nurse will order and review with you themedications you will be using for the cycle. You will be sent an email from [employer] to fill out your Frozen Embryo Treatment [...] BANSAL RN 8:38 AM documented in this [facility] Work Phone: [phone]) 636-212903-24-2025 History of Present illness Narrative* Amy hCerry RN - 11/20/2024 9:45 AM EDT CYCLING [...] ask you to either come here to [facility] or a [facility] lab attached to a [facility]. If you go to a standing lab we cannot guarantee we would get your results in a timely manner! Please see trigger shot and retrieval day instructions below! Your retrieval will fall on Wednesday 11/22 at 10:00 AM but please arrive 1 hr early, getting here at 9:00 AM! Patient to go to [facility] tomorrow for post trigger labs and yearly labs/STDs. Patient aware to hold Metformin will also hold Omeprazole (only takes as needed) starting tomorrow evening. Lab reqs to be printed and placed at front desk person. 11/20/24 at 2:19 PM - Amy Cherry RN [facility] Work Phone: [phone] History of Present illness Narrative* Imelda Cali [...] Cali 11/18/2024 10:08 AM [facility] Work Phone: [phone]) [phone] History of Present illness Narrative* Mikhail Ascencio [...] - Mikhail Ascencio RN documented in this [facility] Work Phone: [phone]) [phone] History of Present illness Narrative* Amy Cherry [...] and will RTC . Patient transferred to front desk person. 11/14/24 at 1:36 PM - Amy Cherry RN [facility] Work Phone: [phone] History of Present illness Narrative* Amy Cherry [...] of vials confirmed: 2 on 11/08/24 at [facility] Latest Ref Rng 11/08/2024 WBC [...] MyChart sent to patient. Patient transferred to front desk person to schedule for Wednesday. 11/08/24 at 3:18 PM - Amy Cherry RN documented in this [facility] Work Phone: [phone]) 356-900402-12-2025 Nurse Note* Pao Beard RN - 10/11/2024 10:55 AM EST Patient discharged to home in stable condition via wheelchair to RIDE HOME: Partner's car. VSS at time of discharge. Discharge instructions given and concerns addressed. Pao Beard RN 10/11/24 11:13 AM [facility] Work Phone: [phone]) [phone] Nurse Note* Pao Beard RN - 10/11/2024 10:55 AM EST Patient discharged to home in stable condition via wheelchair to RIDE HOME: Partner's car. VSS at time of discharge. Discharge instructions given and concerns addressed. Pao Beard RN 10/11/24 11:13 AM [facility] Work Phone: [phone] Nurse Note* Pao Beard RN - 10/11/2024 10:55 AM EST Patient discharged to home in stable condition via wheelchair to RIDE HOME: Partner's car. VSS at time of discharge. Discharge instructions given and concerns addressed. Pao Beard RN 10/11/24 11:13 AM [facility] Work Phone: [phone] History of Present illness Narrative* Henrietta Herndon [...] diagnosis: Female infertility Post op diagnosis: Same Steam Roller Operator: Leslie IV Fluids: 300 cc EBL: 5 cc UOP: Not recorded Specimen: Oocytes Complications: None Number of Oocytes right ovary: 16 Ovarian access (right): Easy Number of Oocytes left ovary: 9 Ovarian access (left): Easy Endometrial thickness: Tl Needle type: Single Additional notes: I was present and supervised the entire procedure. Henrietta Herndon 10/11/24 9:42 AM [facility] Work Phone: [phone] History of Present illness Narrative* Henrietta Herndon [...] diagnosis: Female infertility Post op diagnosis: Same Steam Roller Operator: Leslie IV Fluids: 300 cc EBL: 5 cc UOP: Not recorded Specimen: Oocytes Complications: None Number of Oocytes right ovary: 16 Ovarian access (right): Easy Number of Oocytes left ovary: 9 Ovarian access (left): Easy Endometrial thickness: Tl Needle type: Single Additional notes: I was present and supervised the entire procedure. Henrietta Herndon 10/11/24 9:42 AM [facility] Work Phone: [phone] Miscellaneous Notes* Addendum Note - Pao Beard RN - 10/11/2024 9:15 AM ESTEncounter addended by: Pao Beard RN on: 10/11/2024 2:38 PM Actions taken: MAR administration accepted documented in this [facility] Work Phone: [phone] Note* Addendum Note - Pao Beard RN - 10/11/2024 9:15 AM ESTEncounter addended by: Pao Beard RN on: 10/11/2024 2:38 PM Actions taken: MAR administration accepted [facility] Work Phone: [phone] 290-257502-12-2025 Hospital Discharge instructions* Discharge Instructions* Pao Beard RN - 10/11/2024 7:49 AM EST Images from the original note were not included. [facility] [address]. [place] [address] Home Going Instructions after Egg Retrieval: Activity: [...] 2 weeks following your oocyte retrieval. Call [phone] to speak with a Physician or Nurse if you have any concerns. Pao Beard 9:11 AM [facility] [address]. [place], [place] IVF LAB EMBRYO UPDATE PROTOCOL The [...] frozen. Pao Beard 9:11 AM [facility] [address]. [place] [address] Frozen Embryo Transfer Instructions After your egg retrieval, follow up with your IVF nurse within 3-4 days Wednesday- Wednesday regarding theplan for your frozen embryo transfer (FET) cycle. Your IVF nurse will order and review with you themedications you will be using for the cycle. You will be sent an email from [employer] to fill out your Frozen Embryo Treatment [...] Beard RN 9:10 AM documented in this [facility] Work Phone: [phone] History of Present illness Narrative* Mikhail Ascencio [...] get post trigger labs drawn tomorrow at [facility] lab. Patient to beginCabergoline 0.5mg x8days. Trigger and trigger day instructions given over the phone and sent via [employer] for reference. Patient agreeable. [facility] for [facility]. 10/09/24 at 3:01 PM - Mikhail Ascencio RN documented in this [facility] Work Phone: [phone] History of Present illness Narrative* Lisbeth Spencer [...] Holder 10/08/24 1:16 PM [facility] Work Phone: [phone] History of Present illness Narrative* Lisbeth Spencer [...] and plan. Lisbeth Spencer 10/07/2024 8:53 AM [employer] message sent with plan. Lisbeth Spencer 10/07/24 12:05 PM [facility] Work Phone: [phone] History of Present illness Narrative* Mikhail Ascencio [...] continued monitoring. Patient agreeable. Patient transferred to [facility] for scheduling.[employer] with plan sent to patient. 10/05/24 at 1:23 PM - Mikhail Ascencio RN documented in [facility] Work Phone: [phone] History of Present illness Narrative* Mikhail Ascencio RN - 09/27/2024 8:45 AM EST IVF NURSE CONSULT Here for IVF Nurse consult. Tentative Calendar given and reviewed. Yes Meds have been ordered from: [facility] Patient aware that plan is [...] Ascencio 09/27/2024 9:11 AM [facility] Work Phone: [phone] History of Present illness Narrative* Mikhail Ascencio RN - 09/27/2024 8:15 AM EST MUKESH NOTE - IVF STIM BASELINE Patient presents for baseline ultrasound and/or labs. Treatment protocol: ANT FSH 150 and menopur 75 Trigger plan: HCG vs Lupron Lead in: OCP Start date for lead in: 09/10 Last estrace/OCP date: 09/26 PGT-A/M? Yes; Req Sent: Yes; PGT-M Test Ready: No ; Company: [employer] PGT order scanned into [employer], confirmed by: on 09/27 (scanned in to media tab on 07/18/24) Plan to freeze: embryos [employer] forms/out waiver complete: Yes Does patient have medications onhand? Yes Pharmacy: [facility] Boarding pass signed off: Yes CBC [...] continued monitoring. Patient agreeable. Patient transferred to [facility] for scheduling. [employer] sent to patient with plan and tentative calendar for reference. 09/27/24 at 1:34 PM - Mikhail Ascencio RN documented in this [facility] Work Phone: [phone]) 425-358312-16-2024 History of Present illness Narrative* Hilary Holder [...] yes Risks discussed: Bleeding, infection and pain [place] protocol: Procedure explained and questions answered to [...] diagnosis: fertility testing Post op diagnosis: Same Steam Roller Operator: Fellow Anesthesia: None IV: None EBL: 3 [...] well, no immediate complications documented in this [facility] Work Phone: [phone]) 326-230111-15-2024 History of Present illness Narrative* Imelda Pollard [...] See scanned record. 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 Treatment to date: Fertility [...] mouth 2 times a day before meals. 1-TSXQ-PVRDI ACID-OM3 ORAL Take 1 capsule by mouth [...] an insemination (IUI) this cycle. - [place] [phone] - [place] [phone] Ovulation predictor kits test for LH hormone [...] Pollard 07/14/2024 1:48 PM documented in this [facility] Work Phone: [phone]) 118-821205-28-2024 History of Present illness Narrative* Sarah Espino, BLADDER CLEANER-CAR MECHANIC HELPER - 01/25/2024 11:15 AM EDT Virtual or [...] See scanned record. 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 Treatment to date: Fertility [...] mouth 2 times a day before meals. 8-TZQT-ALAYQ ACID-OM3 ORAL Take 1 capsule by mouth [...] an insemination (IUI) this cycle. - [place] [phone] - [place] [phone] Ovulation predictor kits test for LH hormone in your urine. There are a variety of kits available -[employer] [facility] (NOT the Advanced version) has worked well [...] Espino 01/25/2024 11:20 AM documented [facility] Work Phone: [phone] NotePap Smear Specimen AdequacyApril 2023 3:45pmComment.Satisfactory for evaluation. Endocervical and/or squamous metaplasticcells (endocervical component)are present.[facility] INTERFACED A#[id number] HealthComment on above:Satisfactory for evaluation. Endocervical and/or squamous metaplasticcells (endocervical component)are present.10-01-2023 Procedure [facility] 10-01-2023 Procedure [facility]02-02-20[facility] 08-27-2023 Hospital Discharge instructions Patient Education 08/27/2023 [...] what activities are safe for you. Take ebyl-dle-brcxwpv and prescription medicines only as told by [...] 11/22/2001 Document Revised: 08/19/2018 Document Reviewed: 04/01/2018 [employer] Patient Education 2020 [employer]. 08/27/2023 13:15:43 Nausea and Vomiting, Adult Nausea [...] water added (diluted fruit juice). Eat bland, hiic-rm-aeytdu foods in small amounts as you are able. These foods include bananas, applesauce, rice, lean meats, toast, and crackers. Avoid fluids that contain a lot of sugar or caffeine, such as energy drinks, sports drinks, and soda. Avoid alcohol. Avoid spicy or fatty foods. General instructions Take eawd-fku-uiducel and prescription medicines only as told by your health care provider. Drink enough fluid to keep your urine pale yellow. Wash your hands often using soap and water. If soap and water are not available, use hand chrome plater. Make sure that all people in your [...] eating and drinking to prevent dehydration. Take raje-trn-eovixct and prescription medicines only as told by [...] 08/16/2006 Document Revised: 12/08/2019 Document Reviewed: 01/24/2019 [employer] Patient Education 2020 [employer]. 08/27/2023 13:15:03 Endometrial Ablation, Care After Endometrial [...] are safe for you. General instructions Take lxxh-oyr-hrdqqje and prescription medicines only as told by [...] 06/28/2018 Document Revised: 12/07/2019 Document Reviewed: 06/28/2018 [employer] Patient Education 2020 [employer]. 08/27/2023 11:52:28 8- Post Op COMMUNITY SERVICE SPECIALIST Minor Surgery What to Do After Your [...] as your pain allows. You may take gtmh-nxm-qyxduueabvw medication if you no longer need your prescribed pain medication. Zxfx-pua-dsduwjn pain medications are Tylenol (acetaminophen) or Advil (ibuprofen). Do not take Tylenol if you are still taking [place] or Percocet. They are the same type [...] 08/02/2023 10:09:45 With:ERNA TROTTER MD Address: [address] [place] [address] [phone] When:Within 2 Week(s) [facility] 12-29-2023 Note Discharge Instructions Thank you for allowing [facility] to assist you with your healthcare needs. The following is importantdischarge information regarding your hospital visit. Your Care Team CATRACHITO MERCEDES MD Your Diagnosis Crohn's disease Family history of endometriosis Female infertility Postoperative pain What to do next Follow Up Appointments Follow Up with ERNA TROTTER MD When In 2 weeks Where: [address] [place] [address] [phone] The Following Activity and Diet Have Been [...] Duration: 14 Days Refills: 1 Pickup at [facility] #69510 New acetaminophen-oxyCODONE (Percocet 5 mg-325 mg oral tablet) 1 tab(s) by mouth Every 4 hours as needed for for pain Postoperative pain Duration: 7 Days Pickup at [facility] #[id number] New ibuprofen (ibuprofen 800 mg oral tablet) 1 tab(s) by mouth Every 8 hours Duration: 14 Days Pickup at [facility] #55648 New ondansetron (Zofran 4 mg oral tablet) 1 tab(s) by mouth Every 6 hours as needed for Nausea/Vomiting Duration: 5 Days Pickup at [facility] #38402 Unchanged cholecalciferol (Vitamin D3) 25 Microgram by [...] Milliliter Subcutaneous Every 8 weeks [id number] [address] [place], [place] [id number] [phone] Please take this list to your next [...] what activities are safe for you. Take ukqq-cgw-kytvorb and prescription medicines only as told by [...] 11/22/2001 Document Revised: 08/19/2018 Document Reviewed: 04/01/2018 Mib[employer] Patient Education 2020 [employer] Nausea and Vomiting, Adult Nausea is [...] water added (diluted fruit juice). Eat bland, nakb-yp-ntiozs foods in small amounts as you are able. These foods include bananas, applesauce, rice, lean meats, toast, and crackers. Avoid fluids that contain a lot of sugar or caffeine, such as energy drinks, sports drinks, and soda. Avoid alcohol. Avoid spicy or fatty foods. General instructions Take eoxm-psg-dldizqn and prescription medicines only as told by your health care provider. Drink enough fluid to keep your urine pale yellow. Wash your hands often using soap and water. If soap and water are not available, use hand chrome plater. Make sure that all people in your [...] right away. Call your local emergency services (511 in the [place] Do not drive yourself to the hospital. Summary Nausea is the feeling that you have an upset stomach or that you are about to vomit. As nausea getsworse, it can lead to vomiting. Vomiting can make you feel weak and cause you to become dehydrated. Follow instructions from your health care provider about eating and drinking to prevent dehydration. Take lwsg-itt-wxriitm and prescription medicines only as told by [...] 08/16/2006 Document Revised: 12/08/2019 Document Reviewed: 01/24/2019 [employer]io Patient Education 2020 [employer]. Endometrial Ablation, Care After This sheet gives [...] are safe for you. General instructions Take dhkx-kfq-xkwhmvp and prescription medicines only as told by [...] 06/28/2018 Document Revised: 12/07/2019 Document Reviewed: 06/28/2018 [employer] Patient Education 2020 [employer] What to Do After Your Gynecology [...] as your pain allows. You may take oqsd-nsh-sktilguubdl medication if you no longer need your prescribed pain medication. Ofab-bdv-qattwzc pain medications are Tylenol (acetaminophen) or Advil (ibuprofen). Do not take Tylenol if you are still taking [place] or Percocet. They are the same type [...] to receive it can visit one of [facility] vaccine clinics. There are many vaccine clinic locations within the [facility]. For locations and available times, please visit [email or web address].[email or web address]/. It is important to note that some COVID mobile vaccine clinics are held outdoors and may be canceled in rainy or stormy conditions. To learn more about pediatric vaccinations (ages 5-11), we invite you to visit the [facility] webpage. https://www.[email or web address].org/pages/7077-Zryyh-Okuphmjawnc-Jyaccynghk-Vkxyt-Cfl stions.htmlTo learn more about the COVID-19 vaccine, we invite you to visit the CDC website for a list of frequently asked questions.https://www.cdc.gov/coronavirus/2019-ncov/vaccines/faq.html [facility] Patient Portal Access Instructions: Stay connected with your healthcare team and access your personal medical information anytime with the [facility] Patient Portal. Please follow the directions below to create your [facility] account: 1.Access the email account you provided upon registration to the hospital/physician office.2.Look for an invitation email from [facility].3.Open the email and access the invitation link: AcceptInvitation to [facility].4.Fill in the required barnes to create your account. To access your account, visit [email or web address]. Click the blue button labeled Access Patient [...] who you will allowto register on the [facility] Patient Portal for access to your information. You can also access the [facility] Patient Portal on the [facility] [employer]where nancie. Simply click on Patient Portal and then log into your account. If you would like to receive a full copy of your medical records, please contact the [facility] Medical Records Department by calling [phone], Wednesday through Wednesday between 8 a.m. and [...] Call your local pharmacy or go to http://bit.ly/0F6Qy0v to find one close to you.3.Make use of household items: Use cat litter or old coffee grounds to dispose medications if other options arenot available. Mix your drugs with these household products, seal them in an airtight container andthrow it into the garbage. Call [facility]: [phone] to be sure your drugs can be [...] Endometrial Ablation, Care After 8- Post Op COMMUNITY SERVICE SPECIALIST Minor Surgery Medication Leaflets My discharge plan and instructions have been reviewed and explained to me and IOMI HEATHER M understand my current condition and have read and understand these discharge instructions. I have received a written copy of the plan/instructions. If I have questions, I am aware that I should contact my doctor. 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 Signature: Date/Time: Relationship to Patient: Witness Name/Signature: Date/Time: [facility]12-29-2023 Note Date of Service 08/27/23 History [...] ERNA TROTTER MD on 08/27/2023 11:50 AM [facility]12-29-2023 Anesthesiology Consult note Patient: MARIXA BRAGA Age: 28 years Sex: Female : 1995 Associated Diagnoses: None Author: CHELLY BUSTAMANTE APRN-ZINC PLATE GRAINER Preoperative Information Time of last food or [...] list: Medical Crohn disease / SNOMED CT 32719116 / Confirmed Wellness examination / SNOMED CT 933791853 / Confirmed Weight gain / SNOMED CT 93671555 / Confirmed, Active Problems (4) Crohn disease GERD (gastroesophageal reflux disease) Weight gain Wellness examination Histories Past Medical History: Resolved ([id number]): Onset on 07/18/2018 at 23 years. Resolved in 2019 at 23 years. ([id number]): Onset on 07/19/2017 at 22 years. Resolved in 2018 at 22 years. Family History: Anxiety Sister Hypertension Father Heart disease Father Alcoholism Father Depression Father Procedure history: Colonoscopy (436391635). 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 Current Home Treatments None Special Services [...] Resp Rate 20 br/min (AUG 27 10:13) QEU461 mmHg (AUG 27 10:13) DBP81 mmHg (AUG 27 10:13) Measurements from flowsheet : Measurements 08/27/2023 10:13 EST Height 160 cm Admission Weight 75 kg [place] Body Weight 52.38 kg Admission Body Mass [...] Height 160 cm Admission Weight 75 kg [place] Body Weight 52.38 kg Admission Body Mass [...] Person #1 We May Share LAURA Amos [phone] Designated Person #1 Relationship Spouse Privacy Restrictions [...] Method Explanation, Printed materials Preferred Spoken Language Armenian Preferred Written Language Armenian Teaching Evaluation No further teaching needed Safety [...] QC PRGUP Positive . Assessment and Plan [place] Society of Anesthesiologists (ASA) physical status classification: Class II. Anesthetic Preoperative Plan Premedication: intravenous. Anesthetic technique: General. Induction: intravenously. Maintenance airway: Oral endotracheal tube. Postoperative pain management: Per surgeon. Risks discussed: nausea, vomiting, sore throat. Informed consent: signed by patient. Digitally Signed by CHELLY BUSTAMANTE on 08/27/2023 11:44 AM [facility]08-11-2023 Telephone encounter Note* Telephone Encounter - Cher Calderon - 04/09/2023 11:53 AM EDT Name of caller: MARIXA Relation to patient: patient Contact phone number: [phone] Appointment scheduled with: LANDY BLAIR Appointment date & time: 05/04/23 @ 7:50 AM Reason for visit (are you having any symptoms) : Low blood pressure, unexpected weight gain Transportation issues/ concerns: NO Special accommodations? ( wheel chair, etc) : NO Current medications: STELARA Any refills need: NO Any chronic conditions the provider should be aware of: CHRON'S, 14 WEEKS Pre Play [id number] Telephone encounter Note* Telephone Encounter - Cher Calderon - 04/09/2023 11:53 AM EDT In order to comply with the No Surprises Act, [employer] is providing you with the following attachments. Any Good Cathy Estimate that may be provided are based on the services you are scheduled toreceive. During your visit, there may be additional services required in order for the provider to complete your plan of care. DECLINED [place] [id number] Miscellaneous Notes* Telephone Encounter - Cher Robles AyoubYumiko - 04/09/2023 11:53 AM EDT In order to comply with the No Surprises Act, [facility] is providing you with the following attachments. Any Good Cathy Estimate that may be provided are based on the services you are scheduled toreceive. During your visit, there may be additional services required in order for the provider to complete your plan of care. DECLINED documented in this [facility]08-11-2023 Miscellaneous Notes* Telephone Encounter - Cher Robles Yumiko - 04/09/2023 11:53 AM EDT Name of caller: MARIXA Relation to patient: patient Contact phone number: [phone] Appointment scheduled with: LANDY BLAIR Appointment date & time: 05/04/23 @ 7:50 AM Reason for visit (are you having any symptoms) : Low blood pressure, unexpected weight gain Transportation issues/ concerns: NO Special accommodations? ( wheel chair, etc) : NO Current medications: STELARA Any refills need: NO Any chronic conditions the provider should be aware of: CHRON'S, 14 WEEKS documented in this [place] [id number] Telephone encounter Note* Telephone Encounter - Aishatwyla [...] Pronouns : PronounsOther : Email : [email or web address] Phone : [phone] Birthdate : 1995 12:00:00 AM BestTimeToCallBack : Afternoon AppointmentDate : Kirk PhysicianRequested : Symptoms : Weight gain, low blood pressure OptIn : False [id number] Miscellaneous Notes* Telephone Encounter - Cher Calderon - 04/05/2023 3:44 PM EDT PATIENT SUBMITTED ONLINE APPOINTMENT REQUEST FOR A PCP APPOINTMENT. SPOKE TO PATIENT AND GOT SOME INFORMATION BUT SHE HAD TO GET OFF THE LINE AND STATES SHE WILL C/B. OK TO SCHEDULE WITH ANY PROVIDERWHEN PATIENT CALLS BACK. FirstName : Marixa LastName : OMI Pronouns : PronounsOther : Email : [email or web address] Phone : [phone] Birthdate : 1995 12:00:00 AM BestTimeToCallBack : Afternoon AppointmentDate : Kirk PhysicianRequested : Symptoms : Weight gain, low blood pressure OptIn : False documented in this [facility]Sum[facility] HealthEvaluation + Plan note No data available for this section [facility] Evaluation + Plan note Future Appointments Appointment Date:08/16/2023 10:45:00 AM Scheduled Provider:CATRACHITO MERCEDES MD Location:[facility] Appointment Type:PC OV Follow Up [facility] Evaluation note* Diagnosis Onset Date Resolution Status Ulcerative colitis acute Ulcerative colitis [facility] Work Phone: Evaluation note* Diagnosis Onset Date Resolution Status Ulcerative colitis [facility] Work Phone: Evaluation note* Diagnosis Onset Date Resolution Status Chronic GERD chronic Ulcerative colitis [facility] Work Phone: Evaluation note* Diagnosis Onset Date Resolution Status Endometriosis acute Infertility [facility] Work Phone: Evaluation note* Diagnosis Female infertility- Primary Female infertility of unspecified origin Endometriosis Endometriosis, site unspecified documented in this encounter [facility] Work Phone: [phone] note* Diagnosis Fertility testing- Primary Encounter for preprocedural laboratory examination Female fertility problem [N97.9] documented in this encounter [facility] Work Phone: [phone] note* Diagnosis Endometritis- Primary Unspecified inflammatory disease of uterus Fertility testing documented in this encounter [facility] Work Phone: [phone] note* Diagnosis Endometritis- Primary Unspecified inflammatory disease of uterus Fertility testing documented in this encounter [facility] Work Phone: [phone] note* Diagnosis Female infertility Female infertility of unspecified origin documented in this encounter [facility] Work Phone: [phone] note* Diagnosis Female infertility Female infertility of unspecified origin documented in this encounter [facility] Work Phone: [phone] note* Diagnosis Female infertility Female infertility of unspecified origin documented in this encounter [facility] Work Phone: [phone] note* Diagnosis Encounter for assisted reproductive fertility cycle Encounter for assisted reproductive fertility procedure cycle documented in this encounter [facility] Work Phone: [phone] note* Diagnosis Encounter for assisted reproductive fertility cycle Encounter for assisted reproductive fertility procedure cycle documented in this encounter [facility] Work Phone: [phone] note* Diagnosis Female infertility Female infertility of unspecified origin documented in this encounter [facility] Work Phone: [phone] note* Diagnosis Female infertility Female infertility of unspecified origin documented in this encounter [facility] Work Phone: [phone] note* Diagnosis Fertility testing- Primary Female infertility Female infertility of unspecified origin Screening for diabetes mellitus Encounter for Rh blood typing Encounter for blood typing Screening for STDs (sexually transmitted diseases) Screening examination for venereal disease Screening for thyroid disorder documented in this encounter [facility] Work Phone: [phone] note* Diagnosis Encounter for assisted reproductive fertility cycle Encounter for assisted reproductive fertility procedure cycle documented in this encounter [facility] Work Phone: Evaluation note* Diagnosis Encounter for assisted reproductive fertility cycle Encounter for assisted reproductive fertility procedure cycle documented in this encounter [facility] Work Phone: Evaluation note* Diagnosis Healthcare maintenance- Primary Hypovitaminosis D Unspecified vitamin D deficiency Polycystic ovarian disease Polycystic ovaries Crohn's disease of colon without complication (Multi) documented in this encounter [facility] Work Phone: Evaluation note* Diagnosis Healthcare maintenance- Primary Hypovitaminosis D Unspecified vitamin D deficiency Polycystic ovarian disease Polycystic ovaries Crohn's disease of colon without complication (Multi) Female infertility Female infertility of unspecified origin documented in this encounter [facility] Work Phone: Evaluation note* Diagnosis Healthcare maintenance- Primary Hypovitaminosis D Unspecified vitamin D deficiency Polycystic ovarian disease Polycystic ovaries Crohn's disease of colon without complication (Multi) Plantar wart- Primary Dermatologic problem documented in this encounter [facility] Work Phone: Evaluation note* Diagnosis Healthcare maintenance- Primary Hypovitaminosis D Unspecified vitamin D deficiency Polycystic ovarian disease Polycystic ovaries Crohn's disease of colon without complication (Multi) Encounter for assisted reproductive fertility cycle Encounter for assisted reproductive fertility procedure cycle documented in this encounter [facility] Work Phone: Evaluation note* Diagnosis Healthcare maintenance- Primary Hypovitaminosis D Unspecified vitamin D deficiency Polycystic ovarian disease Polycystic ovaries Crohn's disease of colon without complication (Multi) Encounter to determine viability of , single or unspecified fetus- Primary documented in this encounter [facility] Work Phone: Evaluation note* Diagnosis Healthcare maintenance- Primary Hypovitaminosis D Unspecified vitamin D deficiency Polycystic ovarian disease Polycystic ovaries Crohn's disease of colon without complication (Multi) Vaginal discharge- Primary Leukorrhea, not specified as infective documented in this encounter [facility] Work Phone: Evaluation note* Diagnosis Healthcare maintenance- Primary Hypovitaminosis D Unspecified vitamin D deficiency Polycystic ovarian disease Polycystic ovaries Crohn's disease of colon without complication (Multi) Encounter to determine viability of , single or unspecified fetus- Primary documented in this encounter [facility] Work Phone: History and physical note Author Domo Weaver [facility] October 01, 2023 11:37am Note Date/Time October 01, 2023 1 1:37am [facility] Medical Records Department [address] [place] [address] History & Physical Exam 10/01/23 1137 MR#: [id number] Acct: [id number] Name: MARIXA BRAGA Rep #:[id number] : 1995 28 From: Domo Weaver DO PCP: CATRACHITO MERCDEES Status[facility] Location: [place] [address] History and Physical Date of Admission: 10/01/23 [...] or lesions noted Quality Reporting Tobacco Screening ([facility]) Smoking Status: Never smoker Assessment [...] some mucousy stools when she was in [place] but thatonly lasted for a couple days [...] no clinicalchanges since date of exam. 10/01/23 3090 <Electronically signed by Domo Weaver DO> Cosigner Signature (if applicable): CC: CATRACHITO MERCEDES; Domo Friend, DO~ Signed [facility] Work Phone: History of Present illness Narrative* [...] Espino 01/11/2025 1:31 PM [facility] Work Phone: Hospital Discharge instructions No data available for this section [facility] Progress note No data available for this section [facility] Prozaxxa note Author Iesha Lo [facility] Note Date/Time February 06, 2025 8:50 am [facility] [address] [place] [address], [address] [place] [address] OFFICE VISIT Date of Service: 02/06/25 MR#: [id number] Acct: [id number] Name: MARIXA AMOS Rep #: [id number] : 1995 Provider: STEFANIE Lo Age/Sex: 29/F Location: [facility] Status: Signed Intake Vital Signs 07/12/24 08:32 02/02/25 15:25 02/06/25 08:17 Height 5 ft 3 in 5 ft 3 in 5 ft 3 in Weight: 185 lb 8 oz BMI 32.8 BP 118/70 Intake Visit Reasons: *EST* NOB IVF 12/26, GIL 09/13/25 Personal Development Educator Required: No Is patient in pain?: No [...] mg-folate no.1 1 mg-dha 300 mg capsule (PNV-Rome) prednisone 10 mg tablet 10 mg PO [...] 3-4 times per week duration: 45-60 minutes/day cathy/buddhist: None seatbelt use: always do you feel safe at home: Yes 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 Elective abortions Hx Para 0 [...] Pulmonary (e.g.,TB,Asthma), Seasonal allergies, Drug/latex allergies/reactions, Breast, Flight Dynamicist surgery, Anesthetic complications, History of abnormal pap, [...] Cosigner Signature: Date (if applicable) CC: ~ [facility] Work Phone: Progress note Author Marcia Dallas [facility] Note Date/Time February 23, 2025 11:[facility] [address] [place] [address], [address] [place] [address] OFFICE VISIT Date of Service: 02/23/25 MR#: [id number] Acct: [id number] Name: MARIXA AMOS Rep #: [id number] : 1995 Provider: Dr. Amanda Yen, Age/Sex: 29/F Location: [facility] Status: Signed Intake Vital Signs 02/06/25 08:17 02/23/25 11:00 02/23/25 11:01 Height 5 ft 3 in 5 ft 3 in 5 ft 3 in Weight: 186 lb 2 oz BMI 32.9 BP 135/86 H Intake Visit Reasons: Heart beat Check *IVF Personal Development Educator Required: No Is patient in pain?: No [...] mg-folate no.1 1 mg-dha 300 mg capsule (PNV-Rome) prednisone 10 mg tablet 10 mg PO [...] house current occupational status: employed current occupation: [employer] current occupational exposures/hazards: No pets and animals: [...] 3-4 times per week duration: 45-60 minutes/day cathy/buddhist: None seatbelt use: always do you feel safe at home: Yes 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 Elective abortions Hx Para 0 [...] Symptoms of Preeclampsia, Infant Feeding No , [place] Education and Family Medical Leave or Disability [...] DO> Date _ Marcia Tamraluiz Celena DO [facility] Signature: Date (if applicable) CC: ~ [facility] Work Phone: Reason for referral (narrative)No reason for referral information [facility]WProtestant [facility] Work Phone: Reason for visit Narrative* Other Medical (Routine) - Authorized Specialty Diagnoses / Procedures Referred By Contac t Referred To Contact Reproductive Endocrinology and Infertility Diagnoses Fertility testing Procedures Hysteroscopy diagnostic Imelda Pollard MD [address] [place] [address] Phone: tel: fax: Referral ID Status Reason Start Date Expiration Date V isits Requested Visits Authorized [id number] Authorized 07/14/2024 07/14/2025 1 1 [facility] Work Phone: [place] for visit Narrative* Imaging (Routine) - Authorized Specialty Diagnoses / Procedures [facility] Referred To Contact Radiology Diagnoses Female infertility Procedures TERRENCE US Pelvis Limited Follicles - Follicle Studies Performed Alejandra Chávez MD [address] [facility] Sobeida Dhaliwal [address] [address] Phone: tel: fax: Referral ID Status Reason Start Date Expiration Date Visits Requested Visits Authorized [id number] Authorized Perform Procedure 4 08/17/2025 8 8 [facility] Work Phone: reason for visit Narrative* Procedure (Routine) - Authorized Specialty Diagnoses / Procedures Referred By Contact Referred To Contact Reproductive Endocrinology and Infertility Diagnoses Encounter for assisted reproductive fertility cycle Procedures Egg Retrieval [place] FOLLICLE PUNCTURE OOCYTE RETRIEVAL ANY METHOD CHG [...] FROM ASPIR OTH/THN SEMINAL Katelyn Benitez R, BLADDER CLEANER-[employer] MECHANIC HELPER [address] [place] [address] Phone: tel:[phone] fax:[phone] Referral ID Status Reason Start Date Expiration Date V isits Requested Visits Authorized [id number] Authorized 09/12/2024 09/12/2025 1 1 [facility] Work Phone: [employer] for visit Narrative* Imaging (Routine) - Authorized Specialty Diagnoses / Procedures Referred By Contac t Referred To Contact Radiology Diagnoses Female infertility Procedures TERRENCE US Pelvis Limited Follicles - Follicle Studies Performed Alejandra Chávez MD [address] [facility] Sobeida Dhaliwal, [place] [address] Phone: tel: fax: Referral ID Status Reason Start Date Expiration Date Visits Requested Visits Authorized [id number] Authorized Perform Procedure 11/07/2024 11/07/2025 8 8 [facility] Work Phone: Rev[employer] for visit Narrative* Procedure (Routine) - Authorized Specialty Diagnoses / Procedures Referred By Contact Referred To Contact Reproductive Endocrinology and Infertility Diagnoses Encounter for assisted reproductive fertility cycle Procedures Egg Retrieval NJ FOLLICLE PUNCTURE OOCYTE RETRIEVAL ANY METHOD CHG [...] FROM ASPIR OTH/THN SEMINAL Katelyn Benitez R, BLADDER CLEANER-CAR MECHANIC HELPER [address] [place] [address] Phone: tel:[phone] fax:[phone] Referral ID Status Reason Start Date Expiration Date V isits Requested Visits Authorized [id number] Authorized 10/19/2024 10/19/2025 1 1 [facility] Work Phone: Reason for visit Narrative* Imaging (Routine) - Authorized Specialty Diagnoses / Procedures Referred By Denny serna Referred To Contact Radiology Diagnoses Female infertility Procedures TERRENCE US Endometrial Lining Check Imelda Pollard MD [address] [place] [address] Phone: tel: fax: Referral ID Status Reason Start Date Expiration Date Visits Requested Visits Authorized [id number] Authorized Perform Procedure 11/28/2024 11/28/2025 5 5 [facility] Work Phone: Reason for visit Narrative* Procedure (Routine) - Authorized Specialty Diagnoses / Procedures Referred By Denny serna Referred To Contact Reproductive Endocrinology and Infertility Diagnoses Encounter for assisted reproductive fertility cycle Procedures Embryo Transfer NJ EMBRYO TRANSFER INTRAUTERINE CHG ULTRASONIC GUIDANCE INTRAOPERATIVE CHG THAWING CRYOPRESERVED EMBRYO CHG ASSTD EMBRYO HATCHING MICROTQS ANY METH CHG PREPJ EMBRYO TR Imelda Pollard MD [address] [place] [address] Phone: tel: fax: Referral ID Status Reason Start Date Expiration Date V isits Requested Visits Authorized [id number] Authorized 11/30/2024 08/29/2025 1 1 [facility] Work Phone: Summary Purpose Family History [...] Will Yes June 25 12:50pm Power of Steam Conditioning Operator Yes June 25, 2023 12:50pm Advance Directive Response Recorded Date/ Time Name of Medical Power of Steam Conditioning Operator Naila WADE LD September 29, 2023 8:44am Living Will Yes September 29 8:44am Power of Steam Conditioning Operator Yes September 29, 2023 8:44am Advance Directive Response Recorded Date/ Time Name of Medical Power of Steam Conditioning Operator ANNA WADE LD September 29, 2023 9:44am Living Will Yes September 29 9:44am Power of Steam Conditioning Operator Yes September 29, 2023 9:44am Advance Directive Response Recorded Date/ Time Living Will Yes September 29 9:44am Do you have a Healthcare Power of Steam Conditioning Operator? Yes September 29, 2023 9:44am Chief Complaint and Reason for Visit Chief Complaint ESTABLISH W/ NEW [facility] Reason for [...] section and content) DATE CREATED AUTHOR 07/01/2019 [facility] DATE CREATED AUTHOR AUTHOR'S ORGANIZ ATION 04/10/2023 [facility] DATE CREATED AUTHOR AUTHOR'S ORGANIZ ATION 11/26/[address] [facility] ([place] DATE CREATED AUTHOR AUTHOR'S ORGANIZ ATION 12/22/2024 [facility] DATE CREATED AUTHOR AUTHOR'S ORGANIZ ATION 12/22/2024 [facility] DATE CREATED AUTHOR AUTHOR'S ORGANIZ ATION 01/26/2025 [facility] DATE CREATED AUTHOR AUTHOR'S ORGANIZ ATION 01/29/2025 [facility] DATE CREATED AUTHOR AUTHOR'S ORGANIZ ATION 05/02/2025 [facility] DATE CREATED AUTHOR AUTHOR'S ORGANIZ ATION 05/10/2025 [facility] DATE CREATED AUTHOR AUTHOR'S ORGANIZ ATION 05/11/2025 [facility] Goals (unrecognized section and content) [...] ln2 at [facility]. Reason Comments Vaginal Discharge Care [...] Inactive Member Role Status Dates Dr. Domo eWaver DO Attending Provider Active MAGO WINSTON Primary [...] CNM Attending Provider, Referring Pro vider Active Holistic Nutritionist Relationship Specialty Start Date End Date Amy Cherry RN Registered Nurse 07/17/24 Holistic Nutritionist Relationship Specialty Start Date End Date Amy Cherry RN Registered Nurse 07/17/24 Holistic Nutritionist Relationship Specialty Start Date End Date Amy Cherry RN Registered Nurse 07/17/24 Holistic Nutritionist Relationship Specialty Start Date End Date Amy Cherry RN Registered Nurse 07/17/24 Holistic Nutritionist Relationship Specialty Start Date End Date Tsiros, Amy, RN Registered Nurse 07/17/24 Holistic Nutritionist Relationship Specialty Start Date End [facility] 07/17/24 Holistic Nutritionist Relationship Specialty Start Date End [facility] 07/17/24 Holistic Nutritionist Relationship Specialty Start Date End Date [facility] [place], RN Registered Nurse 07/17/24 Holistic Nutritionist Relationship Specialty Start Date End Date [facility] Registered Nurse 07/17/24 Holistic Nutritionist Relationship Specialty Start Date End Date [facility] Registered Nurse 07/17/24 Holistic Nutritionist Relationship Specialty Start Date End Date [facility] Registered Nurse 07/17/24 Holistic Nutritionist Relationship Specialty [place] [address] [address] [address] PCP - General Internal Medicine 12/11/24 [facility] Registered Nurse 07/17/24 Holistic Nutritionist Relationship Specialty [place] [address] [address] [address] PCP - General Internal Medicine 12/11/24 [facility] Registered Nurse 07/17/24 Holistic Nutritionist Relationship Specialty Start [place] [address] [address] [address] PCP - General Internal Medicine 12/11/24 [facility] Registered Nurse 07/17/24 Holistic Nutritionist Relationship Specialty Start [place] [address] [address] [address] PCP - General Internal Medicine 12/11/24 [facility] [place], [facility] Registered Nurse 07/17/24 Team Status: Active [...] January 06, 2025 End: January 06, 2025 Holistic Nutritionist Relationship Specialty [place] [address] [address] [facility] [address] [place] [address] PCP - General Internal Medicine 12/11/24 Amy Cherry, RN Registered Nurse 07/17/24 Holistic Nutritionist Relationship Specialty [place] [address] [facility] [address] [place] [address] PCP - General Internal Medicine 12/11/24 Amy [...] Status: Active Member Role/Relationship Status Dates Dr. aCtrachito Mercedes MD Primary Care Provider Active Team [...] BE BASED ON THE PRIMARY CLINICAL RECORDS. [facility] [employer] [facility]. provides no warranty or guarantee of the accuracy or completeness of information in this document.
[2025-05-16 07:07] LABS: Calprotectin, Stool 187 ug/g (0-120); Fats, Neutral Normal (.); Fats, Total Normal (.)
== END | disposition home or self-care (01) ==
LOC: LABSPEC 09:04
PROVIDERS: PCP Family Medicine; Visit Provider Internal Medicine Gastroenterology
DX: K58.9 Irritable bowel syndrome, unspecified (principal)
CPT/HCPCS: 82705; 83630; 83993; 87177; 87209; 87329; 87493; 87506

== ENCOUNTER → 2025-06-15 | Outpatient (CLI) | payer BC, SELFPAY ==
--- OUTSIDE RECORDS SUMMARY | 2025-06-15 06:47 | XMS RPT_ITS | CCD ---
Author Organization [facility] CliniSyor Care Team Providers Care Wood Veneer Taper Name Role Phone Care Physician, No Primary Primary Care Provider Unavailable Care Physician, No Primary Referring Provider Un available FriendDr. Oliveros Attending Provider [phone] zEequiel VU, MIRELLA-C Imelda Fernández Attending Provider [phone] Care Physician, No Primary Primary Care Provider Unavailable Care Physician, No Primary Referring Provider Un available Care Physician, No Primary Primary Care Provider Unavailable Care Physician, No Primary Referring Provider Un available Ezequiel VU, DIVIDER OPERATOR-C Imelda Fernández Attending Provider [phone] Primary Care Provider Unavailabl e Care Physician, No Primary Primary Care Provider Unavailable Care Physician, No Primary Referring Provider Un available Friend, Dr. Oliveros Attending Provider CATRACHITO MERCEDES MD Primary Care Physician FriendDr. Oliveros Other Provider [phone] MAGO, NASTAMICHEL Primary Care Provider Unavailab le MAGO, NASTARAN Referring Provider Unavailable Care Physician, No Primary Primary Care Provider Unavailable Care Physician, No Primary Referring Provider Un available FriendDr. Oliveros Attending Provider [phone] FriendDr. Olvieros Other Provider [phone] MAGO, NASTARAN Primary Care Provider Unavailab le MAGO, NASTARAN Referring Provider Unavailable ERNA TROTTRE MD Attending Unavailable ERNA TROTTER MD Consulting Unavailable MAGO BLANCO, CATRACHITO Primary Care Unavailable MAGO BLANCO, CATRACHITO Primary Care Unavailable SHREYA SCOTT Attending Unavail able ERNA TROTTER MD Attending Unavailable MAGO BLANCO, CATRACHITO Primary Care Unavailable MAGO BLANCO, CATRACHITO Attending Unavailable MAGO BALNCO, CATRACHITO Primary Care Unavailable ERNA TROTTER MD Attending Unavailable CATRACHITO MERCEDES MD Primary Care Unavailable Friend, Dr. Oliveros Attending Provider [phone] Care Physician, No Primary Referring Provider Un available STEFANIE Lo Attending Provider Unavailable Primary Care Provider Unavailvy Cherry RN, Amy Unavailable Unavailable Jo Ann MARQUEZ, Amy Unavailable Unavailable Denise Ordonez MD Primary Care Provider [phone] MARCIA KISER Attending Unavailable MARCIA KISER Attending Unavailable ANABELL MICHAEL Attending Unava ilDENISE Adler Primary Care Unavailable Friend DO, Dr. Oliveros Attending Provider Mago BLANCO, Dr. Winston Primary Care Provider Mago BLANCO, Dr. Winston Referring Provider [phone] Friend , Dr. Oliveros Referring Provider DENISE [...] Unavailable Alejandro WATTS, Mary Beth Attending Provider [phone] Wally WATTS, Iesha Attending Provider [phone] Manfred BLANCO, Dr. Morales Referring Provider Nathaniel Dallas DO, Dr. Kennedy Attending Provider Manfred BLANCO, Dr. Morales Other Provider [phone] Mago BLANCO, Dr. Winston Primary Care Provider Dr. Catrachito Mercedes MD Referring Provider Dr. Domo Weaver DO Attending Provider Owen ABBOTT, Dr. Oliveros Referring Provider VIOLETTE BLANCO, DR PATRICK Davalos Attending Jorgito MERCEDES MD, CATRACHITO Primary Care Unavailable DENISE BEAL Unavailable NO PRIMARY CARE, Primary Care Unavailable MARCIA ENGLAND Referring Unavailab CARMEN Yates Referring UnavailPATRICK Avila Attending Unavailable NO PRIMARY CAREMD Primary Care Unavailable CARMEN LUGO Referring Unavailvy dee NO PRIMARY CAREMD Primary Care Unavailable RENA SPAIN Attending Unavailable Dr. Catrachito Mercedes MD Primary Care Physician Dr. Domo Weaver DO Attending Physician Dr. Catrachito Mercedes MD Referring Provider Mary Beth Allen CNM Attending Physician [phone] Iesha Lo CNM Attending Physician [phone] Dr. Carmen Lugo MD Attending Physician Nathaniel Dallas DO, Dr. Kennedy Attending Physician Manfred BLANCO, Dr. Morales Nurse Practitioner Calvin CAZARESCMarcia Attending Physician [phone] Mago, Nastaran Primary Care Unavailable Carmen Lugo Attending Unavailable Carmen Lugo Referring Unavailable Mago, Nastaran Primary Care Unavailable Mago, Nastaran Referring Unavailable Renetta Cha Attending Unavailable Mago, Nastaran Primary Care Unavailable Mago, Nastaran Referring Unavailable Jesika Farrar NP Attending Unavailable Mago, Nastaran Referring Unavailable Iesha Lo Attending Unavailable Mago, Nastaran Primary Care Unavailable Friend, Domo Referring Unavailable Mago, Nastaran Primary Care Unavailable Friend, Domo Attending Unavailable Friend, Domo Referring Unavailable Friend, Domo Attending Unavailable Mago, Nastaran Primary Care Unavailable Mago, Nastaran Primary Care Unavailable Renetta Cha Referring Unavailable Renetta Cha Attending Unavailable Iesha Lo Consulting Unavailable Friend, Domo Attending Unavailable Mago, Nastaran Primary Care Unavailable Mago, Nastaran Primary Care Unavailable Mago, Nastaran Referring Unavailable Marcia Yen Attending Unavailabl e Town Doctor, Out of Primary Care Unavailable Marcia Yen Referring Unavailabl e Marcia Yen Attending Unavailabl e Friend, Domo Attending Unavailable Friend, Domo Referring Unavailable Mago, Nastaran Primary Care Unavailable Carmen Lugo Consulting Unavailable Friend, Domo Attending Unavailable Mago, Nastaran Primary Care Unavailable Mago, Nastaran Referring Unavailable Mago, Nastaran Primary Care Unavailable Mago, Nastaran Referring Unavailable Marcia Sarabia Attending Unavailable Mago, Nastaran Primary Care Unavailable Mago, Nastaran Referring Unavailable Iesha Lo Attending Unavailable Mago, Nastaran Referring Unavailable Mago, Nastaran Primary Care Unavailable Carmen Lugo Attending Unavailable Mago, Nastaran Primary Care Unavailable Mago, Nastaran Referring Unavailable Carmen Lugo Attending Unavailable Mago, Nastaran Primary Care Unavailable Mago, Nastaran Referring Unavailable Iesha Lo Attending Unavailable Mago, Nastaran Primary Care Unavailable Mago, Nastaran Referring Unavailable Carmen Lugo Attending Unavailable Mary Beth Allen Attending Unavailable Mago, Nastaran Primary Care Unavailable Mago, Nastaran Referring Unavailable Mago, Nastaran Primary Care Unavailable Mago, Nastaran Referring Unavailable Marcia Yen Attending Unavailabl e Mago, Nastaran Primary Care Unavailable Mago, Nastaran Referring Unavailable Carmen Lugo Attending Unavailable Friend, Domo Attending Unavailable Friend, Domo Referring Unavailable Mago, Nastaran Primary Care Unavailable Medications Current Medications Medication Drug Class(es) Dates Sig (Normalized) Sig (Original) acetaminophen 500 mg oral tablet (1 source) Start: 08-27-2023 End: 09-24-2023 Tylenol Extra Strength 500 mg oral tablet Dose : 500 mg = 1 tab(s), Oral, q4h, X 14 day(s), # 30 tab(s), 1 Refill(s), 09/24/23 11:51:00 AM EST, Pharmacy: [facility] #[id number], 160, cm, 08/27/23 10:15:00 EST, Height, kg, [...] day(s), # 12 tab(s), 0 Refill(s), Pharmacy: [facility] #[id number], Postoperative pain, 160, cm, 08/27/23 10:15:00 EST, [...] mg PO daily January 01, 2025 12:00am Complies with drug therapy cholecalciferol, vitamin D3, (VITAMIN D3 ORAL) (20 [...] 08/28/2024 Active famotidine 40 mg oral tablet (11 sources) Histamine-2 Receptor Antagonist Start: 04-27-2025 End: 05-11-2025 take 1 tablet by mouth twice daily as needed Famotidine 40 mg tablet Active 40 mg PO TWICE A DAY as needed May 11, 2025 2:12pm Complies with drug therapy ibuprofen 800 mg oral tablet (1 source) Nonsteroidal Anti-inflammatory Drug Start: 08-27-2023 End: 09-10-2023 ibuprofen 800 mg oral tablet Dose : 800 mg = 1 tab(s), Oral, q8h, X 14 day(s), # 42 tab(s), 0 Refill(s), 09/10/23 11:51:00 AM EST, Pharmacy: [facility] #[id number], 160, cm, 12/29/23 10:15:00 EST, Height, kg, 08/27/23 10:15:00 EST, [...] 11/28/2025 Active mesalamine 1000 mg rectal suppository (8 sources) Aminosalicylate Start: 05-23-2025 Mesalamine (Canasa) 1,000 mg suppository Active 1 g RC AT BEDTIME 30 19 09May 23, 2025 12:00am Complies with drug therapy Start: 05-23-2025 Mesalamine (Ca nasa) 1,000 mg suppository Active 1 g RC AT BEDTIME 30 19 09May 23, 2025 12:00am Complies with drug therapy Start: 05-11-2025 End: 05-21-2025 Mesalamine (Canasa) 1,000 mg suppository Discontinued 1000 mg RC AT BEDTIME May 11, 2025 12:00am May 21, 2025 3:01pm Pnv 16-Wlxw-Wyrjk Xdxw-Zleex-3 30 mg iron-10 mg iron-1 mg capsule (3 sources) Start: 05-21-2025 Pnv 30-Iron-Fo lic Uvbq-Rudwz-5 30 mg iron-10 mg iron-1 mg capsule Active NMA PO May 21, 2025 12:00am Complies with drug therapy prednisoLONE 10 mg disintegrating oral tablet (3 sources) Corticosteroid Start: 05-16-2025 take 5 tablets by mouth once daily Prednisolone Sodium Phosphate 10 mg tablet,disintegrati ng Active 50 mg PO daily 150 30 May 16, 2025 12:00am Complies with drug therapy Prenat.Vits,Mario,Min-I armani-Folic (10 sources) Start: 10-22-2021 take 1 tablet by mouth once daily Prenat.Vits,Mario,Min -Iron-Folic Active 1 TABLET PO DAILY October 22, 2021 9:52am Start: 10-22-2021 take 1 tablet by damon th once daily Prenat.Vits,Mario,Vph-Scmd-Qedpm Active 1 TABLET PO DAILY October 22, 2021 12:00am Start: 10-22-2021 take 1 tablet by damon th once daily Prenat.Vits,Mario,Zqx-Mqrf-Ehpru Active 1 TABLET PO DAILY October 22, 2021 1:00am 5-PWSO-CXWTM ACID-OM3 ORAL (20 sources) Start: 12-07-2019 take 1 capsule by mouth once daily 5-ARUU-QQLBO ACID-OM3 ORAL Take 1 capsule by mouth [...] 10/09/2024 12/11/2024 Discontinued (Med List Cleanup) Cholecalciferol (16 sources) Vitamin D Start: 07-12-2024 End: 01-26-2025 Cholecalciferol (Vitamin D3) 62.5 mcg (2,500 unit) capsule Discontinued ug PO July 12, 2024 1:00am January 26, 2025 1:03pm Start: 07-12-2024 Cholecalcifero l (Vitamin D3) 62.5 mcg (2,500 unit) capsule Active ug PO July 12, 2024 1:00am chorionic gonadotropin 18315 unt/ml injectable solution (15 sources) Gonadotropin Start: 11-07-2024 End: 11-22-2024 inject [id number] [IU] by subcutaneous injection once chorionic gonadotropin (Pregnyl) 10,000 unit injection Indications: Female infertility Reconstitute according to instructions and inject 10,000 units (1 mL) under the skin as a one time dose, as directed per provider for trigger. 1 each 11/08/2024 11/22/2024 Discontinued (Therapy completed) Start: 08-18-2024 End: 10-11-2024 inject [id number] [IU] by subcutaneous injection once chorionic gonadotropin (Pregnyl) 10,000 unit injection Indications: Female infertility Reconstitute according to instructions and inject 10,000 units (1 mL) under the skin as a one time dose, as directed per provider for trigger. 1 each 08/18/2024 10/11/2024 Discontinued (Therapy completed) dicyclomine hydrochloride 20 mg oral tablet (20 sources) Anticholinergic Start: 08-09-2023 End: 09-08-2023 take 1 tablet by mouth three times daily Dicyclomine 20 mg tablet Discontinued 20 mg PO THREE TIMES A DAY 90 30 0 August 09, 2023 1:00am September 07, 2023 1:00am September 08, 2023 1:04am [place] 4-Hop-Cgu-Fish Oil (16 sources) Start: 07-12-2024 End: 01-26-2025 [place] 7-Lxp-Qss-Fish Oil (Fish Oil) 300-1,000 mg capsule Discontinued 1 NMA PO daily July 12, 2024 1:00am January 26, 2025 1:04pm Start: 07-12-2024 [place] 3-Dha-Ep a-Fish Oil (Fish Oil) 300-1,000 mg [...] 1 APPFUL RC TWICE A DAY 15 14 March [...] mouth once daily. 3 tablets Active Mv-Mins 03-Elci-Fsyup No.1-D spencer (Pnv-[place]) 28-1-300 mg capsule (15 sources) Start: 01-26-2025 End: 05-21-2025 Mv-Mins 67-Azbk-Vrwcz No.1-D spencer (Pnv-[place]) 28-1-300 mg capsule Discontinued NMA PO January 26, 2025 12:00am May 21, 2025 3:01pm Start: 01-26-2025 Mv-Mins 71-Iro n-Folic No.1-Dha (Pnv-[place]) 28-1-300 mg capsule Active NMA PO January 26, 2025 12:00am omeprazole 20 mg delayed release oral capsule [...] completed) ondansetron 4 mg disintegrating oral tablet (11 sources) Serotonin-3 Receptor Antagonist Start: 02-23-2025 End: 05-11-2025 take 1 tablet by mouth every six hours as needed for nausea and vomiting Ondansetron 4 mg tablet,disintegrating Discontinued 4 mg PO EVERY 6 HOURS as needed for nausea and vomiting 30 3 February 23, 2025 12:00am May 11, 2025 2:12pm Start: 08-27-2023 End: 09-01-2023 Zofran 4 mg oral tablet Dose : 4 mg = 1 tab(s), Oral, q6h, PRN Nausea/Vomiting, X 5 day(s), # 20 tab(s), 0 Refill(s), 09/01/23 11:51:00 AM EST, Pharmacy: [facility] #[id number], 160, cm, 08/27/23 10:15:00 EST, Height, kg, [...] mg oral tablet (20 sources) Start: 05-11-2025 End: 05-21-2025 Prednisone 10 mg tablet Discontinued mg PO May 11, 2025 12:00am May 21, 2025 3:01pm Start: 01-26-2025 End: 03-09-2025 Prednisone 10 mg [...] mg tablet Disc ontinued 0 PO DAILY 30 February 12, 2022 4:09pm March 06, 2022 8:00am Take 3 tabs for five days, two tabs for five day and then one tab. Start: 02-11-2022 End: 03-06-2022 Prednisone Discontinued 0 PO DAILY February 12, 2022 3:09pm March 06, 2022 7:00am Take 3 tabs for five days, two tabs for five day and then one tab. Prenat.Vits,Mario,Tro-Iuuk-Hgi ic tablet (16 sources) Start: 10-22-2021 End: 01-26-2025 Prenat.Vits,Mario,Yqp-Nnan-Iyq ic tablet Discontinued 1 {tbl} PO DAILY October 22, 2021 1:00am January 26, 2025 1:05pm Start: 10-22-2021 Prenat.Vits,Ca l,Ekl-Kkae-Ngdbm tablet Active 1 {tbl} PO DAILY October [...] 11:52am July 07, 2024 4:34pm Approved until 6.2 Start: 12-06-2021 ustekinumab (S telara) injection Inject 1 mL (90 mg) under the skin see administration instructions. 12/06/2021 Active valACYclovir 500 mg oral tablet (6 sources) Herpesvirus Nucleoside Analog DNA Polymerase Inhibitor, [...] Classification Problem Date Documented Da te Episodic/Chronic Deficiency and other anemia (7 sources) Anemia; Translations: [Anemia, unspecified] 05-22-2025 Episodic Endometriosis (20 sources) Endometriosis (clinical); Translations: [Endometriosis, unspecified] Onset: 5 12-09-2023 Chronic Comment on above: STAGE 2 [place] 07/31 023 ROR Esophageal disorders (20 sources) Gastroesophageal reflux disease; Translations: [Gastro-esophageal reflux disease without esophagitis] Onset: 5 08-03-2023 Chronic Female infertility (16 sources) Female infertility; Translations: [Female infertility, unspecified] Onset: 12-29-202 3 Chronic Gastrointestinal hemorrhage (20 sources) Rectal [...] 6, PC Julio ( week demise) Romel growth US and NSTs a t 36 week -normal echo Other complications of (20 sources) H/O: blood transfusion; Translations: [Supervision of with other poor reproductive or obstetric history, unspecified trimester] 01-26-2025 Episodic Comment on above: 2018 due to anemia Other complications of (4 sources) Lupus anticoagulant disorder; Translations: [Other diseases of the blood and blood-forming organs and certain disorders involving the immune mechanism complicating , unspecified trimester] 05-22-2025 Episodic Comment on above: +DRVVT. seeing MFM Other complications of (1 source) Supervision of high risk , unspecified, unspecified trimester; Translations: [Supervision of high risk , unspecified, unspecified trimester] Onset: 5 Episodic Other complications of (1 source) Supervision of resulting from assisted reproductive technology, unspecified trimester; Translations: [Supervision of resulting from assisted reproductive technology, unspecified trimester] Onset: Episodic Other complications of [...] ovarian syndrome; Translations: [Polycystic ovarian syndrome] Onset: Chronic Other female genital disorders (2 sources) Vaginal discharge; Translations: [Other specified noninflammatory disorders of vagina] 01-22-2025 Episodic Other female genital disorders (2 sources) Other specified noninflammatory disorders of vagina; Translations: [Other specified noninflammatory disorders of vagina] Onset: 5 Episodic Other gastrointestinal disorders (1 source) Irritable bowel syndrome without diarrhea; Translations: [Irritable bowel syndrome, unspecified] Onset: Chronic Other hematologic conditions (20 sources) History of [...] Chronic Other nutritional; endocrine; and metabolic disorders (16 sources) Obese class I; Translations: [Class 1 [...] conditions (not mental disorders or infectious disease) (5 sources) Encounter for screening for diabetes mellitus; [...] Pt reports dx, pt of . on stelara. needs MFM consult. both diagnosis, MFM consult [...] testing since. Residual codes; unclassified (1 source) 22 weeks gestation of ; Translations: [22 weeks gestation of ] Onset: 5 Episodic [...] Translations: [Abnormal weight gain] Onset: 04-20-2023 Episodic Residual codes; unclassified (1 source) Personal history of other medical treatment; Translations: [Personal history of other medical treatment] Onset: 02-06-2025 Episodic Residual codes; unclassified (1 source) 8 weeks gestation of ; Translations: [8 weeks gestation of ] Onset: 02-06-2025 Episodic Unclassified (20 sources) Onset: 01-25-2024 Resolved: 12-11-2024 01-25-2024 Results Test Name Value Interpretation Reference Range Facility Director Weights And Measures Office Visit Reporton 06-01-2025 Director Weights And Measures Office Visit Report [facility] [address], [address] [place] [address] OFFICE VISIT Date of Service: 06/01/25 MR#: [id number] Acct: [id number] Name: MARIXA AMOS Rep #: [id number] : 1995 Provider: Dr. Marcia Lawson DO Age/Sex: 29/F [place] [facility] Status: Signed Intake Vital Signs 03/09/25 11:36 05/21/25 15:12 06/01/25 14:44 06/01/25 14:47 Height 5 ft 3 in 5 ft 3 in 5 ft 3 in 5 ft 3 in Weight: 206 lb BMI 36.5 BP 127/78 H Intake Visit Reasons: 25wk ob *IVF Assistant Tennis Coach Required: No Is patient in pain?: No Allergies No Known Allergies Allergy (Verified 06/01/25 14:43) Medications ???Medication ???Instructions ???Recorded ???Confirmed ???Type ustekinumab 90 mg/mL subcutaneous 90 mg subcut Q8W #1 mL 07/07/24 1 Rx syringe (Stelara) aspirin 81 mg tablet,delayed 81 mg PO QDAY 01/01/25 06/01/25 Hi story release (Adult Aspirin Regimen) famotidine 40 mg tablet 40 mg PO BID PRN 05/11/25 06/01/25 History prednisolone sodium phosphate 10 50 mg (5 x 10 mg) PO QDAY 30 days 05/16/25 06/01/25 Rx mg disintegrating tablet #150 tabs vitamins 30 30 mg iron-10 cap PO 05/21/25 06/01/25 History mg iron-folic acid 1 mg-om3 capsule mesalamine 1,000 mg rectal 1 g NJ QHS 3 weeks #30 ea 05/23/25 06/01/25 Rx suppository (Canasa) Last Menstrual Period: 10/19/24 Zika: Zika virus [...] 3-4 times per week duration: 45-60 minutes/day cathy/sikhism: None seatbelt use: always do you feel safe at home: Yes 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 Date Name GA/Weeks Outcome Route Bth Weight Gen Labor Lgth Anesthesia Del Locatn Provider FOB Unknown 07/2023-Julio 20 still Male Delivery Date: Last Updated by: Jacquie Durán demise, possible subchorionic hematoma HPI 25wk ob *IVF Details: MARIXA AMOS is a 29 year old who presents for routine OB visit. OB Visit GIL Calculator Estimated Delivery Date Method Current WG Current Estimate 09/13/25 Manual 25w 1d Other Estimates 09/11/25 Ultrasound #1 25w 3d Expected Delivery Route/Plan Labor Preferences- CB/BF [...] (+8 oz) 118/70 -???-???-???-???-???-??? -???-???-???-???-???-??? - 185 -?? (more content not included)... Normal [facility] [id number] 05-22-2025 [facility] Misc. COMMENT Normal . [facility] Comment on above: Order Comment: JUAN Das ER/FZ [id number] Mata lei Result Comment: Test Ordered: [id number] Ustekinumab Drug + Antibody Ustekinumab 8.9 ug/mL ES Reference Range: . Quantitation Limit: [...] R, et al. Clin Gastroenterol Hepatol 2017;15: 9156-4658. 4. Tessa SP, et al. Br J Dermatol;2015:173;855-857. 5. Grover H, et al. PLOS ONE DOI;10:1371/journal.pone.0967635. 6. Allan Billingsley, et al. Br J Dermatol 2014;170:261-273. These tests were developed and their performance characteristics determined by [facility]. They have not been cleared or approved by the Food and Drug Administration. However, both drug and anti-drug antibody assays have been developed and validated in accordance with FDA Guidance for Industry documents: Bioanalytical Method Validation (2013) and Assay Development and Validation for Immunogenicity Testing of Therapeutic Protein Products (2016). Performed at: [facility] [address] [place] [address] [id number] Credit Card Interviewer: Michelle Acharya MD, Phone: [phone] Performed at: [facility] [id number] Credit Card Interviewer: Almas Saavedra PhD, Phone: [phone] Performed By: #### L 101.2400, L501.2403, L30.1209, L100.0100, L500.6040 #### [facility] [place], [address] Gastroenterology Visit Repor ton 05-21-2025 Gastroenterology Visit Report [facility] [address] [place] [address] OFFICE VISIT Date of Service: 05/21/25 MR#: [id number] Acct: [id number] Name: MARIXA AMOS Rep #: [id number] : 1995 Provider: DERRICK dixon Age/Sex: 29/F [place] [facility] Status: Signed Intake Vital Signs 03/09/25 11:36 05/01/25 14:59 05/11/25 13:52 05/21/25 15:12 Height 5 ft 3 in 5 ft 3 in 5 ft 3 in 5 ft 3 in Weight: 204 lb 4 oz BMI 36.1 BP 125/80 H Respiration 16 Pulse 87 Temp 97.7 F L Temp Source Temporal Pulse Oximetry (%) 98 Oxygen Delivery Method room air Intake Visit Reasons: 4 M FU Chronic Gerd Chief Complaint: UC flare Assistant Tennis Coach Required: No Accompanied by: Self Is patient in pain?: No Allergies No Known Allergies Allergy (Verified 05/11/25 13:50) Medications ???Medication ???Instructions ???Recorded ???Confirmed ???Type ustekinumab 90 mg/mL subcutaneous 90 mg subcut Q8W #1 mL 07/07/24 0 05/21/25 Rx syringe (Stelara) aspirin 81 mg tablet,delayed 81 mg PO QDAY 01/01/25 05/21/25 Hi story release (Adult Aspirin Regimen) famotidine 40 mg tablet 40 mg PO BID PRN 05/11/25 05/21/25 History prednisolone sodium phosphate 10 50 mg (5 x 10 mg) PO QDAY 30 days 05/16/25 05/21/25 Rx mg disintegrating tablet #150 tabs vitamins 30 30 mg iron-10 cap PO 05/21/25 05/21/25 History mg iron-folic acid 1 mg-om3 capsule PFSH Medical History (Updated 05/22/25 @ 14:56 by DERRICK Sanders) Obesity (BMI 30.0-34.9) Other obesity Rectal bleeding [...] 3-4 times per week duration: 45-60 minutes/day cathy/sikhism: None seatbelt use: always do you feel safe at home: Yes 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 - treated with balsalazide till 2019 - Humir bi-weekly initiated 2018: Experienced severe UC flare requiring blood transfusion. - Humira escalated to weekly dosing 07/28/2021: Established care with [facility] after several miscarriages, concerned UC could be contributing. 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 - treated with rifampin x4-6 months with ID - plan to switch to Stelara (ustekinumab) 02/11/2022: Prednisone Take 3 tabs for five days, two tabs for five day and then one tab daily February 2022: Began budesonide NJ BID x4 weeks and hyoscyamine PRN while awaiting Stelara approval 04/10/2022: ustekinumab IV induction given - Humira discontinued October 2022: reported rectal bleeding - fecal calprotectin 54 - ustekinumab level 8.4 - attempted to increase ustekinumab to every 4 weeks - denied by insurance - started hydrocortisone enemas daily x3 weeks April 2023: Colonoscopy cancelled due to , later lost in miscarriage July 2023: Fecal calprotectin 275, CRP normal September 2023: Colonoscopy performed revealing moderate inflammation from rectum to descending colon, worse than prior exams. - Pathology showing mild chronic active colitis in sigmoid colon and on random biopsies - started budesonide 6mg daily x8 weeks 12/15/2023: Budesonide 6mg daily initiated December 2023: Goal set to maintain remission with ustekinumab and low dose budesonide while attempting . - budesonide 3mg savi (more content not included)... Normal [facility] M7400.3302on 05-17-2025 M7400.3302 ____ [facility] ORIGINAL REPORT ON FILE IN LAB CONTAINS ADDITIONAL TEST SITE INFORMATION. Giardia Lamblia EIA NEGATIVE [facility] Comment on above: Performed By: #### L 101.9900, L501.6710, L3410.9992, L100.0100, L500.4050 #### [facility] [address] [place], [address] Ova and Parasites 8623on OP OVA AND PARASITES EX AM, ROUTINE These results were obtained using wet preparation(s) and trichrome stained smear. This test does not include testing for Crytosporidium parvum, Cyclospora, or Microsporidia. One negative specimen does not rule out the possibility of a parasitic infection. TESTING PERFORMED AT [facility]. ORIGINAL REPORT ON FILE IN LAB CONTAINS ADDITIONAL TEST SITE INFORMATION. Ova/Parasite Exam NO OVA, CYSTS, OR PARASITES FOUND. Normal [facility] Comment on above: Performed By: #### L 101.9900, L501.6710, L3410.9992, L100.0100, L500.4050 #### [facility] [address] [place], [place], [id number] Calprotectin, Stoolon [address] 187 ug/g Abnormal 0-120 [facility] Comment on above: Order Comment: N day 21 lab Result Comment: Conc entration Interpretation Follow-Up < 5 - 50 ug/g Normal None >50 -120 ug/g Borderline Re-evaluate in 4-6 weeks >120 ug/g Abnormal Repeat as clinically indicated Performed at: [address] [id number] Credit Card Interviewer: Almas Saavedra PhD, Phone: [phone] Performed at: [address] [id number] Credit Card Interviewer: Jose Claros MD, Phone: [phone] Performed By: #### L 193.2600 #### [facility] [address] [place], [place], [id number] Fecal Fat, Qualitativeon FATS, NEUTRAL Normal Normal . [facility] Comment on above: Order Comment: N day 21 lab Result Comment: Norm al (<60 Droplets/HPF) Performed By: #### L 801.2600 #### [facility] [address] [place], [place], [id number] FATS, TOTAL Normal Normal . [facility] Comment on above: Order Comment: N day 21 lab Result Comment: Norm al (<100 Droplets/HPF) Performed By: #### L 801.2600 #### [facility] [address] [place], [address] CIRANon 05-15-2025 Dil Dewey Viper Venom 40.7 seconds Normal 30.0-42.0 [facility] Comment on above: Result Comment: DRVV T Confirmation Test Performed: POSITIVE Performed By: #### 1 24499, A1C, 377632, 540255 #### [facility] [address] [place] [address] [place] Interpretation See Below Normal [facility] Comment on above: Result Comment: Lupu s Anticoagulant DETECTED by DRVVT method. Performed By: #### 1 93107, A1C, 518804, 565801 #### [facility] [address] [place] [address] Platelet neutraliz. Not Done Normal [facility] Comment on above: Performed By: #### 1 12406, A1C, 252994, 961975 #### [facility] [address] [place] [address] CDIFF (PCR)on 05-13-2025 CDIFF Pending [phone] NAP1-B1 Presumptive Negative *for epidemiolologic???use C. Diff PCR Negative- No toxigenic C. Diff Detected Normal [facility] Comment on above: Performed By: #### L 801.2600 #### [facility] [address] [place], [place], [id number] Calprotectin stoolOrdered By : Domo Weaver on 05-13-2025 Calprotectin stool 187 ug/g High 0-120 [facility] Comment on above: Concentration Interp retation Follow-Up< 5 - 50 ug/g Normal None>50 -120 ug/g Borderline Re-evaluate in 4-6 weeks >120 ug/g Abnormal Repeat as clinically indicatedPerformed at: - [facility] [address] [id number] Director: Almas Saavedra PhD, Phone: [phone] at: [facility] Lablarp [address] [id number] Director: Jose Claros MD, Phone: [phone] Clostridium difficile detect ion by polymerase chain reactionOrdered By: Domo Weaver on 05-13-2025 C. difficile DNA ALEKSEY+probe Ql (Unsp spec) [facility] ENTERIC PATHOGEN PANEL STOOL on 05-13-2025 EP PANEL CAMPYLOBACTER Not Detected Norovirus Not Detected Rotavirus Not Detected Salmonella Not Detected Shiga Toxin Not Detected Shigella sp. Not Detected VIBRIO Not Detected Yersinia Not Detected Normal [facility] Comment on above: Performed By: #### L 801.2600 #### [facility] [address] [place], [place], [id number] Fecal fat detectionOrdered B y: Domoyamileth Weaver on 05-13-2025 Fat Ql (Stl) Normal . [facility] Comment on above: Normal (<100 Droplet s/HPF) No Panel InformationOrdered By: Domo Weaver on 05-13-2025 Stool Neutral Fats Normal . [facility] Comment on above: Normal (<60 Droplets /HPF) Stool Lactoferrin/WBCon 04-30 WBCST Normal Reference Ran ge = Negative Fecal WBC Lactoferrin Negative: No Fecal WBC Lactoferrin present Normal [facility] Comment on above: Performed By: #### L 801.2600 #### [facility] [address] [place], [place], [address] Stool lactoferrin detection by immunoassayOrdered By: Domo Weaver on 05-13-2025 Lactoferrin IA Ql (Stl) [facility] Absolute lymphocyte countOrd ered By: Domo Weaver on 05-12-2025 Lymphocytes Auto (Unsp spec) [#/Vol] 1.66 10*3/uL 0.83-4.51 [facility] Absolute neutrophil countOrd ered By: Domoyamileth Weaver on 05-12-2025 Neutrophils (Bld) [#/Vol] 6.9 10*3/uL 2.0-7.7 [facility] Anion gap in Serum or Plasma Ordered By: Domo Weaver on 05-12-2025 Anion gap [Moles/Vol] 13 mmol/L 5-15 [facility] Automated lymphocyte count a s percentage of total leukocytesOrdered By: Domo Weaver on 05-12-2025 Lymphocytes/100 WBC Auto (Unsp spec) 18.0 % Low 19-41 [facility] BUN/creatinine ratioOrdered By: Domoyamileth Weaver on 05-12-2025 Urea nitrogen/Creatinine [Mass ratio] 10.9 mg/mg 10-20 [facility] Basophil percentageOrdered B y: Domo Weaver on 05-12-2025 Basophils/100 WBC (Bld) 0.3 % 0-1 [facility] Bilirubin, totalOrdered By: Domo Weaver on 05-12-2025 Bilirubin [Mass/Vol] 0.16 mg/dL Normal 0.00-1.30 [facility] Comment on above: Performed By: #### L 101.9900, L501.6710, L3410.9992, L100.0100, L500.4050 #### [facility] [address] [place], [address] CBC W/Diff, Automatedon 04-30 Absolute Lymph 1.66 X10 3/uL Normal 0.83-4.51 [facility] Comment on above: Performed By: #### L 101.9900, L501.6710, L3410.9992, L100.0100, L500.4050 #### [facility] [address] [place], [address] Absolute Neut 6.9 X10 3/uL Normal 2.0-7.7 [facility] Comment on above: Performed By: #### L 101.9900, L501.6710, L3410.9992, L100.0100, L500.4050 #### [facility] [address] [place], [address] Basophils/100 WBC (Bld) 0.3 % Normal 0-1 [facility] Comment on above: Performed By: #### L 101.9900, L501.6710, L3410.9992, L100.0100, L500.4050 #### [facility] [address] [place], [address] Eosinophils/100 WBC (Bld) 1.1 % Normal 0-5 [facility] Comment on above: Performed By: #### L 101.9900, L501.6710, L3410.9992, L100.0100, L500.4050 #### [facility] [address] [place], [address] Erythrocyte distribution width (RBC) [Ratio] 12.7 % Normal 11.6-14.6 [facility] Comment on above: Performed By: #### L 101.9900, L501.6710, L3410.9992, L100.0100, L500.4050 #### [facility] [address] [place], [address] Hematocrit (Bld) [Volume fraction] 30.0 % Low 37-47 [facility] Comment on above: Performed By: #### L 101.9900, L501.6710, L3410.9992, L100.0100, L500.4050 #### [facility] [address] [place], [address] Hemoglobin (Bld) [Mass/Vol] 10.0 g/dL Low 12.0-15.0 [facility] Comment on above: Performed By: #### L 101.9900, L501.6710, L3410.9992, L100.0100, L500.4050 #### [facility] [address] [place], [address] IG% 0.900 Normal 0.0-0.9 [facility] Comment on above: Result Comment: IG% - Immature Granulocytes (promyelocytes, myelocytes and metamyelocytes) > 1% indicates that a LEFT SHIFT is Present. Performed By: #### L 101.9900, L501.6710, L3410.9992, L100.0100, L500.4050 #### [facility] [address] [place], [address] Lymphocytes/100 WBC (Bld) 18.0 % Low 19-41 [facility] Comment on above: Performed By: #### L 101.9900, L501.6710, L3410.9992, L100.0100, L500.4050 #### [facility] [address] [place], [address] MCH (RBC) [Entitic mass] 29.9 pg Normal 27.0-32.0 [facility] Comment on above: Performed By: #### L 101.9900, L501.6710, L3410.9992, L100.0100, L500.4050 #### [facility] [address] [place], [address] MCHC (RBC) [Mass/Vol] 33.3 g/dL Normal 32-36 [facility] Comment on above: Performed By: #### L 101.9900, L501.6710, L3410.9992, L100.0100, L500.4050 #### [facility] [address] [place], [address] MCV (RBC) [Entitic vol] 89.6 fL Normal 81-99 [facility] Comment on above: Performed By: #### L 101.9900, L501.6710, L3410.9992, L100.0100, L500.4050 #### [facility] [address] [place], [address] Monocytes/100 WBC (Bld) 4.7 % Normal 0-10 [facility] Comment on above: Performed By: #### L 101.9900, L501.6710, L3410.9992, L100.0100, L500.4050 #### [facility] [address] [place], [address] Neutrophils/100 WBC (Bld) 75.0 % High 47-70 [facility] Comment on above: Performed By: #### L 101.9900, L501.6710, L3410.9992, L100.0100, L500.4050 #### [facility] [address] [place], [address] Nucleated RBC (Bld) [#/Vol] 0 10*3/uL Normal 0-5 [facility] Comment on above: Performed By: #### L 101.9900, L501.6710, L3410.9992, L100.0100, L500.4050 #### [facility] [address] [place], [address] Platelet mean volume (Bld) [Entitic vol] 10.2 fL Normal 6.2-12.0 [facility] Comment on above: Performed By: #### L 101.9900, L501.6710, L3410.9992, L100.0100, L500.4050 #### [facility] [address] [place], [address] Platelets (Bld) [#/Vol] 313 10*3/uL Normal 150-450 [facility] Comment on above: Performed By: #### L 101.9900, L501.6710, L3410.9992, L100.0100, L500.4050 #### [facility] [address] [place], [address] RBC (Bld) [#/Vol] 3.35 10*6/uL Low 4.2-5.4 [facility] Comment on above: Performed By: #### L 101.9900, L501.6710, L3410.9992, L100.0100, L500.4050 #### [facility] [address] [place], [address] RDW SD 41.3 fl Normal 35.1-43.9 [facility] Comment on above: Performed By: #### L 101.9900, L501.6710, L3410.9992, L100.0100, L500.4050 #### [facility] [address] [place], [address] WBC (Bld) [#/Vol] 9.2 10*3/uL Normal 4.4-11.0 [facility] Comment on above: Performed By: #### L 101.9900, L501.6710, L3410.9992, L100.0100, L500.4050 #### [facility] [address] [place], [address] CRPon 05-12-2025 C-REACTIVE PROT 8.18 mg/L High 0.0-3.0 [facility] Comment on above: Performed By: #### L 101.9900, L501.6710, L3410.9992, L100.0100, L500.4050 #### [facility] [address] [place], [address] Carbon dioxide, total [Moles /volume] in Central venous bloodOrdered By: Domo Weaver on 05-12-2025 CO2 [Moles/Vol] 17.8 mmol/L Low 21.0-32.0 [facility] Comment on above: Performed By: #### L 101.9900, L501.6710, L3410.9992, L100.0100, L500.4050 #### [facility] [address] [place], [address] Chloride assayOrdered By: Ra clarita Weaver on 05-12-2025 Chloride [Moles/Vol] 107 mmol/L Normal 98-108 [facility] Comment on above: Performed By: #### L 101.9900, L501.6710, L3410.9992, L100.0100, L500.4050 #### [facility] [address] [place], [address] Comprehensive Metabolic Prof lo 05-12-2025 ALK PHOS 62 U/L Normal 35-104 [facility] Comment on above: Performed By: #### L 101.9900, L501.6710, L3410.9992, L100.0100, L500.4050 #### [facility] [address] [place], [address] BUN/CRE 10.9 RATIO Normal 10-20 [facility] Comment on above: Performed By: #### L 101.9900, L501.6710, L3410.9992, L100.0100, L500.4050 #### [facility] [address] [place], [address] GAP 13 Normal 5-15 [facility] Comment on above: Performed By: #### L 101.9900, L501.6710, L3410.9992, L100.0100, L500.4050 #### [facility] [address] [place], [address] Potassium [Moles/Vol] 3.7 mmol/L Normal 3.3-5.1 [facility] Comment on above: Performed By: #### L 101.9900, L501.6710, L3410.9992, L100.0100, L500.4050 #### [facility] [address] [place], [address] T PROT 6.8 g/dL Normal 5.9-8.4 [facility] Comment on above: Performed By: #### L 101.9900, L501.6710, L3410.9992, L100.0100, L500.4050 #### [facility] [address] [place], [address] Comprehensive Metabolic Prof ilOrdered By: Domo Weaver on 05-12-2025 AST [Catalytic activity/Vol] 23 U/L Normal <=31 [facility] Comment on above: Performed By: #### L 101.9900, L501.6710, L3410.9992, L100.0100, L500.4050 #### [facility] [address] [place], [address] Eosinophil percentageOrdered By: Domo Weaver on 05-12-2025 Eosinophils/100 WBC (Bld) 1.1 % 0-5 [facility] Erythrocyte Sed Rateon 05-12 SED RATE 29 mm/hr Normal 0-30 [facility] Comment on above: Performed By: #### L 101.9900, L501.6710, L3410.9992, L100.0100, L500.4050 #### [facility] [address] [place], [place], [address] Erythrocyte distribution wid th ratioOrdered By: Domo Weaver on 05-12-2025 Erythrocyte distribution width (RBC) [Ratio] 12.7 % 11.6-14.6 [facility] Erythrocyte distribution wid th standard deviationOrdered By: Domo Weaver on 05-12-2025 Erythrocyte distribution width (RBC) [Ratio] 41.3 fl 35.1-43.9 [facility] Erythrocyte sedimentation ra teOrdered By: Domo Weaver on 05-12-2025 ESR (Bld) [Velocity] 29 mm/h 0-30 [facility] Glomerular filtration rate ( GFR) estimation/1.73 sq m using serum, plasma, or whole bOrdered By: Domo Weaver on 05-12-2025 GFR/1.73 sq M.predicted among non-blacks MDRD (S/P/Bld) [Vol rate/Area] 129 mL/min/{1.73_m2} Normal >60 [facility] Comment on above: mL/min/1.73m2 CKD-EP I Creatinine Equation (2020) Result Comment: mL/m in/1.73m2 CKD-EPI Creatinine Equation (2020) Performed By: #### L 101.9900, L501.6710, L3410.9992, L100.0100, L500.4050 #### [facility] [address] [place], [address] Hematocrit Auto (Bld) [Volum e fraction]Ordered By: Domo Weaver on 05-12-2025 Hematocrit (Bld) [Volume fraction] 30.0 % Low 37-47 [facility] Hemoglobin measurementOrdere d By: Domo Weaver on 05-12-2025 Hemoglobin (Bld) [Mass/Vol] 10.0 g/dL Low 12.0-15.0 [facility] Immature granulocytes/100 WB C Auto (Bld)Ordered By: Domo Weaver on 05-12-2025 Immature granulocytes/100 WBC (Bld) 0.900 % 0.0-0.9 [facility] Comment on above: IG% - Immature Granu locytes (promyelocytes, myelocytes and metamyelocytes) > 1% indicates that a LEFT SHIFT is Present. MCV (mean corpuscular volume ) determinationOrdered By: Domo Weaver on 05-12-2025 MCV (RBC) [Entitic vol] 89.6 fL 81-99 [facility] Mean corpuscular hemoglobin (MCH) determinationOrdered By: Domo Weaver on 05-12-2025 MCH (RBC) [Entitic mass] 29.9 pg 27.0-32.0 [facility] Mean corpuscular hemoglobin concentration (MCHC) determinationOrdered By: Domo Weaver on 05-12-2025 MCHC (RBC) [Mass/Vol] 33.3 g/dL 32-36 [facility] Mean platelet volume determi nationOrdered By: Domo Weaver on 05-12-2025 Platelet mean volume (Bld) [Entitic vol] 10.2 fL 6.2-12.0 [facility] Monocyte percentageOrdered B y: Domo Weaver on 05-12-2025 Monocytes/100 WBC (Bld) 4.7 % 0-10 [facility] Neutrophil percentageOrdered By: Domoyamileth Weaver on 05-12-2025 Neutrophils/100 WBC (Bld) 75.0 % High 47-70 [facility] Nucleated red blood cell per centageOrdered By: Domoyamileth Weaver on 05-12-2025 Nucleated RBC/100 WBC (Bld) [Ratio] 0 % 0-5 [facility] Platelet countOrdered By: Ra clarita Weaver on 05-12-2025 Platelets (Bld) [#/Vol] 313 10*3/uL 150-450 [facility] Potassium measurement (mass/ volume)Ordered By: Domo Weaver on 05-12-2025 Potassium (Unsp spec) [Mass/Vol] 3.7 mmol/L 3.3-5.1 [facility] RBC Auto (Bld) [#/Vol]Ordere d By: Domo Weaver on 05-12-2025 RBC (Bld) [#/Vol] 3.35 10*6/uL Low 4.2-5.4 [facility] Serum creatinine measurement (mass/volume)Ordered By: Domo Weaver on 05-12-2025 Creatinine [Mass/Vol] 0.51 mg/dL Low 0.70-1.20 [facility] Comment on above: Performed By: #### L 101.9900, L501.6710, L3410.9992, L100.0100, L500.4050 #### [facility] [address] [place], [place], [id number] Serum globulin measurementOr dered By: Domo Weaver on 05-12-2025 Globulin (S) [Mass/Vol] 3.0 g/dL Normal 2.2-4.2 [facility] Comment on above: Performed By: #### L 101.9900, L501.6710, L3410.9992, L100.0100, L500.4050 #### [facility] [address] [place], [place], [id number] Serum glucose measurement (m ass/volume)Ordered By: Domo Weaver on 05-12-2025 Glucose [Mass/Vol] 152 mg/dL High 70-99 [facility] Comment on above: Performed By: #### L 101.9900, L501.6710, L3410.9992, L100.0100, L500.4050 #### [facility] [address] [place], [address] Serum or plasma C reactive p rotein measurement (mass/volume)Ordered By: Domo Weaver on 05-12-2025 CRP [Mass/Vol] 8.18 mg/L High 0.0-3.0 [facility] Serum or plasma alanine parisi otransferase (ALT) measurementOrdered By: Domo Weaver on 05-12-2025 ALT [Catalytic activity/Vol] 28 U/L Normal <=34 [facility] Comment on above: Performed By: #### L 101.9900, L501.6710, L3410.9992, L100.0100, L500.4050 #### [facility] [address] [place], [address] Serum or plasma albumin arielle urement (mass/volume)Ordered By: Domo Weaver on 05-12-2025 Albumin [Mass/Vol] 3.8 g/dL Normal 3.5-5.0 [facility] Comment on above: Performed By: #### L 101.9900, L501.6710, L3410.9992, L100.0100, L500.4050 #### [facility] [address] [place], [address] Serum or plasma albumin/glob ulin mass ratioOrdered By: Domo Weaver on 05-12-2025 Albumin/Globulin [Mass ratio] 1.3 {ratio} Normal 0.9-2.4 [facility] Comment on above: Performed By: #### L 101.9900, L501.6710, L3410.9992, L100.0100, L500.4050 #### [facility] [address] [place], [place], [address] Serum or plasma alkaline marcelo sphatase measurementOrdered By: Domo Weaver on 05-12-2025 ALP [Catalytic activity/Vol] 62 U/L 35-104 [facility] Serum or plasma calcium arielle urement (mass/volume)Ordered By: Domo Weaver on 05-12-2025 Calcium [Mass/Vol] 9.1 mg/dL Normal 7.6-11.0 [facility] Comment on above: Performed By: #### L 101.9900, L501.6710, L3410.9992, L100.0100, L500.4050 #### [facility] [address] [facility] [place], [address] Serum or plasma urea nitroge n measurement (mass/volume)Ordered By: Domo Weaver on 05-12-2025 Urea nitrogen [Mass/Vol] 6 mg/dL Normal 4-19 [facility] Comment on above: Performed By: #### L 101.9900, L501.6710, L3410.9992, L100.0100, L500.4050 #### [facility] [address] [place], [address] Sodium levelOrdered By: moris yamileth Weaver on 05-12-2025 Sodium [Moles/Vol] 138 mmol/L Normal 133-145 [facility] Comment on above: Performed By: #### L 101.9900, L501.6710, L3410.9992, L100.0100, L500.4050 #### [facility] [address] [facility] [place], [address] Total proteinOrdered By: Lai Weaver on 05-12-2025 Protein [Mass/Vol] 6.8 g/dL 5.9-8.4 [facility] White blood cell (WBC) count Ordered By: Domo Weaver on 05-12-2025 WBC (Bld) [#/Vol] 9.2 10*3/uL 4.4-11.0 [facility] Laboratory - Chemistry and C hemistry - challengeOrdered By: Iesha Lo on 05-11-2025 Glucose Ql (U) Negative [facility] - UrinalysisOrder ed By: Iesha Lo on 05-11-2025 Protein Ql (U) Negative [facility] Director Weights And Measures Office Visit Reporton 05-11-2025 Director Weights And Measures Office Visit Report [facility] [address], [address] [place] [address] OFFICE VISIT Date of Service: 05/11/25 MR#: [id number] Acct: [id number] Name: MARIXA AMOS Rep #: [id number] : 1995 Provider: STEFANIE Figueroa ams Age/Sex: 29/F [place] [facility] [place]: Signed Intake Vital Signs 05/01/25 14:59 05/11/25 13:52 Height 5 ft 3 in 5 ft 3 in Weight: 201 lb 6 oz BMI 35.6 BP 130/86 H Intake Visit Reasons: FHT check, spotting Chief Complaint: FHT Check, Spotting Assistant Tennis Coach Required: No Is patient in pain?: No Allergies No Known Allergies Allergy (Verified 05/11/25 13:50) Medications ???Medication ???Instructions ???Recorded ???Confirmed ???Type ustekinumab 90 mg/mL subcutaneous 90 mg subcut Q8W #1 mL 07/07/24 0 05/11/25 Rx syringe (Stelara) aspirin 81 mg tablet,delayed 81 mg PO QDAY 01/01/25 05/11/25 Hi story release (Adult Aspirin Regimen) multivit-min no.71-iron fum 28 cap PO 01/26/25 05/11/25 History mg-folate no.1 1 mg-dha 300 mg capsule (PNV-[place]) famotidine 40 mg tablet 40 mg PO BID PRN 05/11/25 History mesalamine 1,000 mg rectal 1,000 mg [place] QHS 05/11/25 05/11/25 History suppository ([facility]) prednisone 10 mg tablet mg PO 05/11/25 05/11/25 History Last Menstrual Period: 10/19/24 : No PFSH [...] 3-4 times per week duration: 45-60 minutes/day cathy/sikhism: None seatbelt use: always do you feel safe at home: Yes 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 Declines NIPT. IVF . had carrier (more content not included)... Normal [facility] [id number] 05-10-2025 B2 Glyco I IgG Ab <9 Normal 0-20 [facility] Comment on above: Performed By: #### 1 [address]394, A1C, 295889, 114007 #### [address] [address] B2 Glyco I IgM Ab <9 Normal 0-32 [facility] Comment on above: Result Comment: Perf ormed At: [address] [id number] Quentin Coburn PhD Ph:[phone] Performed By: #### 1 [address]22, A1C, 678358, [id number] #### [place] [address] CARDIGon 05-10-2025 Cardiolipin IgG <9 Normal 0-14 [facility] Comment on above: Result Comment: Nega tive: <15 Indeterminate: 15 - 20 Low-Med Positive: >20 - 80 High Positive: >80 Performed At: [address] [id number] Quentin Coburn PhD Ph:[phone] Performed By: #### 1 67923, A1C, 098897, 386535 #### [place] [address] CARDII-[facility] 05-10-2025 Cardiolipin IgM <9 Normal 0-12 [facility] Comment on above: Result Comment: Nega tive: <13 Indeterminate: 13 - 20 Low-Med Positive: >20 - 80 High Positive: >80 Performed At: [address] [id number] Quentin Coburn PhD Ph:[phone] Performed By: #### 1 22390, A1C, 584365, 376526 #### [place] [address] A1Con 05-08-2025 Glucose [Mass/Vol] 111 mg/dL Normal [facility] Comment on above: Result Comment: Isabelle mated Average Glucose calculated by equation ((28.7xA1C)-46.7) Estimated average glucose (eAG) is a calculated value from Hemoglobin A1C and is claims service representative of the average blood glucose level in the last 2-3 month period. 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 CARBAJAL OFFICE VISIT NOTE The concluding Summary Communication to Drafter Topographical is at the end of this office [...] a. Ongoing Care with: Dr. Leach. b. [facility] co-management visits scheduled with [facility] imaging visits. c. She is transferring her gastroenterology care to [facility] on 05/10/2025 and will share this [...] and discontinuation of metformin during . 4. MFM follow-up ultrasounds scheduled: She has echocardiography with ultrasound scheduled on 05/18/2025 and subsequent to that ultrasound for interval growth assessment at 28/32/36 weeks with comanagement with our PTA. 5. Antepartum Testing: Weekly NST in the office at 36 weeks will be appropriate. 6. Delivery-planned at [facility]: As per standard obstetric practice and anticipate a term vaginal delivery at 39+0 weeks +3 days for scheduling purpos (more content not included)... Normal [facility] - Chemistry and C hemistry - challengeOrdered By: Carmen Lugo on 05-01-2025 Glucose Ql (U) Negative [facility] - UrinalysisOrder ed By: Carmen Lugo on 05-01-2025 Protein Ql (U) Negative [facility] Director Weights And Measures Office Visit Reporton 05-01-2025 Director Weights And Measures Office Visit Report [facility] [address], [address] [place] [address] OFFICE VISIT Date of Service: 05/01/25 MR#: [id number] Acct: [id number] Name: MARIXA AMOS Rep #: [id number] : 1995 Provider: Dr. Carmen dixon MD Age/Sex: 29/F [place] [facility] [place]: Signed Intake Vital Signs 03/09/25 11:36 04/06/25 13:00 05/01/25 14:59 Height 5 ft 3 in 5 ft 3 in 5 ft 3 in Weight: 200 lb 7 oz BMI 35.5 BP 125/78 H Intake Visit Reasons: 21wk ob *IVF Assistant Tennis Coach Required: No Is patient in pain?: No Allergies No Known Allergies Allergy (Verified 05/01/25 14:58) Medications ???Medication ???Instructions ???Recorded ???Confirmed ???Type ustekinumab 90 mg/mL subcutaneous 90 mg subcut Q8W #1 mL 07/07/24 0 05/01/25 Rx syringe (Mata) aspirin 81 mg tablet,delayed 81 mg PO QDAY 01/01/25 05/01/25 Hi story release (Adult Aspirin Regimen) multivit-min no.71-iron fum 28 cap PO 01/26/25 05/01/25 History mg-folate no.1 1 mg-dha 300 mg capsule (PNV-[place]) ondansetron 4 mg disintegrating 4 mg PO [...] 3-4 times per week duration: 45-60 minutes/day cathy/sikhism: None seatbelt use: always do you feel safe at home: Yes 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 Date Name GA/Weeks Outcome Route Bth Weight Gen Labor Lgth Anesthesia Del Locatn Provider FOB Unknown 07/2023-Julio 20 still Male Delivery Date: Last Updated by: Jacquie Fernández Leeanna demise, possible subchorionic hematoma HPI 21wk ob [...] had car (more content not included)... Normal [facility] - Chemistry and C hemistry - challengeOrdered By: Iesha Lo on 04-06-2025 Glucose Ql (U) Negative [facility] - UrinalysisOrder ed By: Iesha Lo on 04-06-2025 Protein Ql (U) Negative [facility] Director Weights And Measures Office Visit Reporton 04-06-2025 Director Weights And Measures Office Visit Report [facility] [address], [address] [place] [address] OFFICE VISIT Date of Service: 04/06/25 MR#: [id number] Acct: [id number] Name: MARIXA AMOS Rep #: [id number] : 1995 Provider: STEFANIE Figueroa ams Age/Sex: 29/F [place] [facility] [place] Status: Signed Intake Vital Signs 02/06/25 08:17 03/09/25 11:36 04/06/25 13:00 Height 5 ft 3 in 5 ft 3 in 5 ft 3 in Weight: 191 lb 4 oz 194 lb 9 oz BMI 33.8 34.4 BP 129/85 H 138/79 H Intake Visit Reasons: 17 wk ob *IVF Chief Complaint: 17wk OB Assistant Tennis Coach Required: No Is patient in pain?: No [...] mg-folate no.1 1 mg-dha 300 mg capsule (PNV-[place]) ondansetron 4 mg disintegrating 4 mg PO [...] house current occupational status: employed current occupation: [employer] current occupational exposures/hazards: No pets and animals: [...] 3-4 times per week duration: 45-60 minutes/day cathy/sikhism: None seatbelt use: always do you feel safe at home: Yes 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 had carrier screening done with I 02/23/25 -???-???-???-???-???-??? -???-???-???-???-???- (more content not included)... Normal [facility] CRPon 03-10-2025 C-REACTIVE PROT 8.03 mg/L High 0.0-3.0 [facility] Comment on above: Performed By: #### L 101.9900, L501.6710 ####[facility] [address] [place], [address] Erythrocyte Sed Rateon 03-10 SED RATE 25 mm/hr Normal 0-30 [facility] Comment on above: Performed By: #### L 101.9900, L501.6710 #### [facility] [address] [place], [place], [address] Erythrocyte sedimentation ra teOrdered By: Domo Weaver on 03-10-2025 ESR (Bld) [Velocity] 25 mm/h 0-30 [facility] Ferritinon 03-10-2025 Ferritin [Mass/Vol] 61 ng/mL Normal 22-378 [facility] Comment on above: Performed By: #### L 801.2600 #### [facility] [address] [place], [place], [id number] Iron measurement (mass/mass) Ordered By: Carmen Lugo on 03-10-2025 Iron (Unsp spec) [Mass/Mass] 102 ug/dL 50-170 [facility] Iron+Iron Binding Capacityon 03-10-2025 Iron [Mass/Vol] 102 ug/dL Normal 50-170 [facility] Comment on above: Performed By: #### L 801.2600 #### [facility] [address] [place], [address] IRON SATURATION 29.0 Normal 13-59 [facility] Comment on above: Performed By: #### L 801.2600 #### [facility] [address] [place], [place], [phone] TIBC 353 ug/dL Normal 250-450 [facility] Comment on above: Performed By: #### L 801.2600 #### [facility] [address] [place], [address] UIBC 251 ug/dL Normal 228-428 [facility] Comment on above: Performed By: #### L 801.2600 #### [facility] [address] [place], [place], [phone] No Panel InformationOrdered By: Carmen Lugo on 03-10-2025 Unsaturated Iron Binding Capacity 251 ug/dL 228-428 [facility] Serum or plasma C reactive p rotein measurement (mass/volume)Ordered By: Domo Weaver on 03-10-2025 CRP [Mass/Vol] 8.03 mg/L High 0.0-3.0 [facility] Serum or plasma ferritin guerita surement (mass/volume)Ordered By: Carmen Lugo on 03-10-2025 Ferritin [Mass/Vol] 61 ng/mL 22-378 [facility] Serum or plasma iron saturat ion measurement (mass fraction)Ordered By: Carmen Lugo on 03-10-2025 Iron saturation [Mass fraction] 29.0 % 13-59 [facility] Vitamin B12on 03-10-2025 Cobalamin (Vitamin B12) [Mass/Vol] 614 pg/mL Normal 180-914 [facility] Comment on above: Performed By: #### L 503.6030, L503.0106, L503.6550 ####[facility] [address] [place], [place], [id number] Vitamin B12 ser/plasOrdered By: Carmen Lugo on 03-10-2025 Cobalamin (Vitamin B12) [Mass/Vol] 614 pg/mL 180-914 [facility] - Chemistry and C hemistry - challengeOrdered By: Carmen Lugo on 03-09-2025 Glucose Ql (U) Negative [facility] - UrinalysisOrder ed By: Carmen Lugo on 03-09-2025 Protein Ql (U) Negative [facility] Director Weights And Measures Office Visit Reporton 03-09-2025 Director Weights And Measures Office Visit Report [facility] [address], [address] [place] [address] OFFICE VISIT Date of Service: 03/09/25 MR#: [id number] Acct: [id number] Name: MARIXA AMOS Rep #: [id number] : 1995 Provider: Dr. 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 -???-???-???-? (more content not included)... Normal [facility] Director Weights And Measures Office Visit Reporton 02-23-2025 Director Weights And Measures Office Visit Report [facility] [address], [address] [place] [address] OFFICE VISIT Date of Service: 02/23/25 MR#: [id number] Acct: [id number] Name: MARIXA AMOS Rep #: [id number] : 1995 Provider: Dr. 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 Date Name GA/Weeks Outcome Route [facility] 07[facility]2023-Julio 20 still [...] -???-???-???-???-???-??? -???-??? (more content not included)... Normal [facility] L3410.9992on 02-16-2025 [facility] Misc. COMMENT Normal . [facility] Comment on above: Order Comment: [id number] 4Stelara levels Result Comment: Test Ordered: [id number] Ustekinumab Drug + Antibody Ustekinumab 3.9 ug/mL [...] R, et al. Clin Gastroenterol Hepatol 2017;15: 1168-1396. 4. Tessa MORA et al. Br J Dermatol;2015:173;855-857. 5. Grover H, et al. PLOS ONE DOI;10:1371/journal.pone.7528941. 6. Allan Billingsley et al. Br J Dermatol 2014;170:261-273. These tests were developed and their performance characteristics determined by [employer]. They have not been cleared or approved by the Food and Drug Administration. However, both drug and anti-drug antibody assays have been developed and validated in accordance with FDA Guidance for Industry documents: Bioanalytical Method Validation (2013) and Assay Development and Validation for Immunogenicity Testing of Therapeutic Protein Products (2016). Performed at: [employer] [address] [place] [id number] Credit Card Interviewer: Gregg Roberto MD, Phone: [phone] Performed at: [address] [id number] Credit Card Interviewer: Almas Saavedra PhD, Phone: [phone] Performed By: #### L 500.4050, L300.3900, L100.0100, L3410.9992, L501.6710, L101.9900 ####[facility] [address] [place], [address] Chlamydia/GC ALEKSEY aptimaon CHLAMY,NUC ACID Negative Normal Negative [facility] Comment on above: Performed By: #### L 801.2600 #### [facility] [address] [place], [address] GC BY NUC ACID Negative Normal Negative [facility] Comment on above: Result Comment: Perf ormed at: = - [facility] [id number] Credit Card Interviewer: Rose Haney MD, Phone: [phone] Performed By: #### L 801.2600 #### [facility] [address] [place], [place], [id number] Urine Cultureon 02-07-2025 [facility] Culture exhibits no growth. Normal [facility] Comment on above: Performed By: #### L 801.2600 #### [facility] [address] [place], [place], [id number] Absolute lymphocyte countOrd ered By: Carmen Morrowcalvin on 02-06-2025 Lymphocytes Auto (Unsp spec) [#/Vol] 1.57 10*3/uL 0.83-4.51 [facility] Absolute neutrophil countOrd ered By: Carmen Lugo on 02-06-2025 Neutrophils (Bld) [#/Vol] 9.8 10*3/uL High 2.0-7.7 [facility] Automated lymphocyte count a s percentage of total leukocytesOrdered By: Carmen Lugo on 02-06-2025 Lymphocytes/100 WBC Auto (Unsp spec) 12.6 % Low 19-41 [facility] Basophil percentageOrdered B y: Carmen Manfred on 02-06-2025 Basophils/100 WBC (Bld) 0.4 % 0-1 [facility] CBC W/Diff, Automatedon 01-28-2024 PLT EST A Normal ADEQ [facility] Comment on above: Performed By: #### L 501.9985, L3890.6006, L3890.6102, L3890.6301, BTS, L100.0100, L509.4006, L509.8002 ####[facility] [address] [place], [place], [id number] RED CELL MORPH NORM C+C Normal NORM C C [facility] Comment on above: Performed By: #### L 501.9985, L3890.6006, L3890.6102, L3890.6301, BTS, L100.0100, L509.4006, L509.8002 ####[facility] [address] [place], [address] Chlamydia trachomatis rRNA d etection by probe and target amplification methodOrdered By: Carmen Zepedagerardo on 02-06-2025 C. trachomatis rRNA ALEKSEY+probe Ql (Unsp spec) Negative Negative [facility] Eosinophil percentageOrdered By: Carmen Lugo on 02-06-2025 Eosinophils/100 WBC (Bld) 1.7 % 0-5 [facility] Erythrocyte distribution wid th ratioOrdered By: Carmen Lugo on 02-06-2025 Erythrocyte distribution width (RBC) [Ratio] 13.1 % 11.6-14.6 [facility] Erythrocyte distribution wid th standard deviationOrdered By: Carmen Zepedagerardo on 02-06-2025 Erythrocyte distribution width (RBC) [Ratio] 43.2 fl 35.1-43.9 [facility] Erythrocyte morphology asses smentOrdered By: Carmen Morrowcalvin on 02-06-2025 RBC morphology finding Nom (Bld) NORM C+C NORMAL NORM C&C [facility] HIVon 02-06-2025 HIV Non-Reactive Normal Nonreactive [facility] Comment on above: Result Comment: Non- Reactive Reactive Repeatedly reactive samples must be confirmed according to CDC recommended confirmatory algorithms. The subresults for either HIVAG or AHIV can be used as an aid in the selection of the confirmation algorithm for reactive samples. Send out specimens with Reactive results to [facility] for confirmation. Order the HIV antibody detection and differentiation: lc#[id number] Performed By: #### L 501.9985, L3890.6006, L3890.6102, L3890.6301, BTS, L100.0100, L509.4006, L509.8002 ####[facility] [address] [place], [address] Hematocrit Auto (Bld) [Volum e fraction]Ordered By: Carmen Lugo on 02-06-2025 Hematocrit (Bld) [Volume fraction] 34.7 % Low 37-47 [facility] Hemoglobin A1con 02-06-2025 HbA1c (Bld) [Mass fraction] 5.5 % Normal <=5.6 [facility] Comment on above: Result Comment: Norm al < 5.7 % Prediabetic 5.7 - 6.4 % Diabetic >or= 6.5 % Please note range changes. Performed By: #### L 501.9985, L3890.6006, L3890.6102, L3890.6301, BTS, L100.0100, L509.4006, L509.8002 ####[facility] [address] [place], [place], [id number] Hemoglobin A1c percentageOrd ered By: Carmen Lugo on 02-06-2025 HbA1c (Bld) [Mass fraction] 5.5 % <5.7 [facility] Comment on above: Normal < 5.7 % Predi abetic 5.7 - 6.4 % Diabetic >or= 6.5 % Please note range changes. Hemoglobin measurementOrdere d By: Carmen Lugo on 02-06-2025 Hemoglobin (Bld) [Mass/Vol] 11.5 g/dL Low 12.0-15.0 [facility] Hepatitis C Antibodyon 02-06 Hepatitis C Ab Non-Reactive Normal Nonreactive [facility] Comment on above: Result Comment: Reac tive: Presumptive evidence of antibodies to HCV. Follow CDC recommendations for supplemental testing. Non-Reactive: Antibodies to HCV were not detected; does not exclude the possibility of exposure to HCV Reactive Results are presumptive evidence of antibodies to HCV. Follow CDC recommendations for supplemental testing. Order confirmation testing: HCV Quant by PCR testing - HCVPCR #[id number] Non Reactive: < 0.8 Equivocal: >/= 0.8 to < 1.0 Reactive: >/= 1.0 The CDC requires that a reactive/equivocal HCV antibody result be sent out for confirmation. HCV Quant by PCR testing. Performed By: #### L 501.9985, L3890.6006, L3890.6102, L3890.6301, BTS, L100.0100, L509.4006, L509.8002 ####[facility] [address] [place], [place], [id number] Immature granulocytes/100 WB C Auto (Bld)Ordered By: Carmen Lugo on 02-06-2025 Immature granulocytes/100 WBC (Bld) 0.600 % 0.0-0.9 [facility] Comment on above: IG% - Immature Granu locytes (promyelocytes, myelocytes and metamyelocytes) > 1% indicates that a LEFT SHIFT is Present. L3890.6102on 02-06-2025 HEP B Surf Ag Non-Reactive Normal Nonreactive [facility] Comment on above: Result Comment: Reac tive: Presumptive evidence of HBV. Repeatedly reactive samples must be confirmed using a neutralization test ([employer] HBsAg Confirmatory Test) Non-Reactive: HBsAg not detected; does not exclude the possibility of exposure to HBV Performed By: #### L 501.9985, L3890.6006, L3890.6102, L3890.6301, BTS, L100.0100, L509.4006, L509.8002 ####[facility] [address] [facility] [place], [place], [id number] L509.4006on 02-06-2025 Rubella IgG REAC Normal Nonreactive [facility] Comment on above: Result Comment: Anti body Result: Interpretation Non-Reactive: Non-Immune Reactive: Immune The following results were obtained with the [employer] Rubella IgG assay. Results from assays of other manufacturers cannot be used interchangeably. Performed By: #### L 501.9985, L3890.6006, L3890.6102, L3890.6301, BTS, L100.0100, L509.4006, L509.8002 ####[facility] [address] [facility] [place], [place], [id number] Laboratory - Microbiology an d Antimicrobial susceptibilityOrdered By: Carmen Lugo on 02-06-2025 HBV surface Ag Ql (S) Non-Reactive Nonreactive [facility] Comment on above: Reactive: Presumptiv e evidence of HBV. Repeatedly reactive samples must be confirmed using a neutralization test ([employer] HBsAg Confirmatory Test)Non-Reactive: HBsAg not detected; does not exclude the possibility of exposure to HBV MCV (mean corpuscular volume ) determinationOrdered By: Carmen Lugo on 02-06-2025 MCV (RBC) [Entitic vol] 91.3 fL 81-99 [facility] Mean corpuscular hemoglobin (MCH) determinationOrdered By: Carmen Lugo on 02-06-2025 MCH (RBC) [Entitic mass] 30.3 pg 27.0-32.0 [facility] Mean corpuscular hemoglobin concentration (MCHC) determinationOrdered By: Carmen Lugo on 02-06-2025 MCHC (RBC) [Mass/Vol] 33.1 g/dL 32-36 [facility] Mean platelet volume determi nationOrdered By: Carmen Lugo on 02-06-2025 Platelet mean volume (Bld) [Entitic vol] 11.4 fL 6.2-12.0 [facility] Monocyte percentageOrdered B y: Carmen Lugo on 02-06-2025 Monocytes/100 WBC (Bld) 5.8 % 0-10 [facility] Neisseria gonorrhoeae nuclei c acid detection by amplified probe techniqueOrdered By: Carmen Lugo on 02-06-2025 N. gonorrhoeae DNA ALEKSEY+probe Ql (Unsp spec) Negative Negative [facility] Comment on above: Performed at: =[address] [id number] Director: Rose Haney MD, Phone: [phone] Neutrophil percentageOrdered By: Carmen Lugo on 02-06-2025 Neutrophils/100 WBC (Bld) 78.9 % High 47-70 [facility] No Panel InformationOrdered By: Carmen Lugo on 02-06-2025 HIV (1&2) Antibody Non-Reactive Nonreactive [facility] Comment on above: Non-ReactiveReactive Repeatedly reactive samples must be confirmed according to CDC recommended confirmatory algorithms. The subresults for either HIVAG or AHIV can be used as an aid in the selection of the confirmation algorithm for reactive samples.Send out specimens with Reactive results to [facility] for confirmation.Order the HIV antibody detection and differentiation: #[id number] Nucleated red blood cell per centageOrdered By: Carmen Lugo on 02-06-2025 Nucleated RBC/100 WBC (Bld) [Ratio] 0 % 0-5 [facility] Director Weights And Measures Office Visit Reporton 02-06-2025 Director Weights And Measures Office Visit Report [facility] [address], [address] [place] [address] OFFICE VISIT Date of Service: 02/06/25 MR#: [id number] Acct: [id number] Name: MARIXA AMOS Rep #: [id number] : 1995 Provider: STEFANIE Figueroa ams Age/Sex: 29/F [place] [facility] Status: Signed Intake Vital Signs 07/12/24 08:32 02/02/25 15:25 02/06/25 08:17 Height 5 ft 3 in 5 ft 3 in 5 ft 3 in Weight: 185 lb 8 oz BMI 32.8 BP 118/70 Intake Visit Reasons: *EST* NOB IVF 12/26, GIL 09/13/25 Assistant Tennis Coach Required: No Is patient in pain?: No [...] mg-folate no.1 1 mg-dha 300 mg capsule (PNV-[place]) prednisone 10 mg tablet 10 mg PO [...] 3-4 times per week duration: 45-60 minutes/day cathy/sikhism: None seatbelt use: always do you feel safe at home: Yes 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 Date Name GA/Weeks Outcome Route Bth Weight Infant Gen Labor Lgth Anesthesia Del [facility] Provider FOB Unknown 07/2023-Julio 20 still Male [...] 8 oz (more content not included)... Normal [facility] Platelet countOrdered By: Uziel Lugo on 02-06-2025 Platelets (Bld) [#/Vol] 319 10*3/uL 150-450 [facility] Platelet estimateOrdered By: Carmen Lugo on 02-06-2025 Platelets LM Ql (d) A ADEQ [facility] RBC Auto (d) [#/Vol]Ordere d By: Carmen Lugo on 02-06-2025 RBC (Bld) [#/Vol] 3.80 10*6/uL Low 4.2-5.4 [facility] Syphilis Antibodieson 2024 Syphilis Abs Non-Reactive Normal Nonreactive [facility] Comment on above: Performed By: #### L 501.9985, L3890.6006, L3890.6102, L3890.6301, BTS, L100.0100, L509.4006, L509.8002 ####[facility] [address] [place], [place], [address] Type AND Screenon 02-06-2025 ABO and Rh group Nom (Bld) Blood group B Rh(D) positive Normal [facility] Comment on above: Order Comment: PN Performed By: #### L 501.9985, L3890.6006, L3890.6102, L3890.6301, BTS, L100.0100, L509.4006, L509.8002 ####[facility] [address] [place], [place], [id number] Urine cultureOrdered By: Torin Lugo on 02-06-2025 Bacteria identified Cx Nom (U) Culture exhibits no growth. [facility] White blood cell (WBC) count Ordered By: Carmen Lugo on 02-06-2025 WBC (Bld) [#/Vol] 12.5 10*3/uL High 4.4-11.0 [facility] Absolute lymphocyte countOrd ered By: Domo Weaver on 02-02-2025 Lymphocytes Auto (Unsp spec) [#/Vol] 1.71 10*3/uL 0.83-4.51 [facility] Absolute neutrophil countOrd ered By: Domo Weaver on 02-02-2025 Neutrophils (Bld) [#/Vol] 7.6 10*3/uL 2.0-7.7 [facility] Anion gap in Serum or Plasma Ordered By: Domo Weaver on 02-02-2025 Anion gap [Moles/Vol] 13 mmol/L 5-15 [facility] Automated lymphocyte count a s percentage of total leukocytesOrdered By: Domo Weaver on 02-02-2025 Lymphocytes/100 WBC Auto (Unsp spec) 17.3 % Low 19-41 [facility] BUN/creatinine ratioOrdered By: Domo Weaver on 02-02-2025 Urea nitrogen/Creatinine [Mass ratio] 16.4 mg/mg 10-20 [facility] Basophil percentageOrdered B y: Domo Weaver on 02-02-2025 Basophils/100 WBC (Bld) 0.4 % 0-1 [facility] Bilirubin, totalOrdered By: Domo Friend on 02-02-2025 Bilirubin [Mass/Vol] mg/dL 0.00-1.30 [facility] CBC W/Diff, Automatedon Absolute Lymph 1.71 X10 3/uL Normal 0.83-4.51 [facility] Comment on above: Performed By: #### L 500.4050, L300.3900, L100.0100, L3410.9992, L501.6710, L101.9900 ####[facility] [address] [place], [address] Absolute Neut 7.6 X10 3/uL Normal 2.0-7.7 [facility] Comment on above: Performed By: #### L 500.4050, L300.3900, L100.0100, L3410.9992, L501.6710, L101.9900 ####[facility] [address] [place], [address] Basophils/100 WBC (Bld) 0.4 % Normal 0-1 [facility] Comment on above: Performed By: #### L 500.4050, L300.3900, L100.0100, L3410.9992, L501.6710, L101.9900 ####[facility] [address] [place], [address] Eosinophils/100 WBC (Bld) 0.7 % Normal 0-5 [facility] Comment on above: Performed By: #### L 500.4050, L300.3900, L100.0100, L3410.9992, L501.6710, L101.9900 ####[facility] [address] [place], [address] Erythrocyte distribution width (RBC) [Ratio] 12.7 % Normal 11.6-14.6 [facility] Comment on above: Performed By: #### L 500.4050, L300.3900, L100.0100, L3410.9992, L501.6710, L101.9900 ####[facility] [address] [place], [address] Hematocrit (Bld) [Volume fraction] 33.6 % Low 37-47 [facility] Comment on above: Performed By: #### L 500.4050, L300.3900, L100.0100, L3410.9992, L501.6710, L101.9900 ####[facility] [address] [place], [address] Hemoglobin (Bld) [Mass/Vol] 11.2 g/dL Low 12.0-15.0 [facility] Comment on above: Performed By: #### L 500.4050, L300.3900, L100.0100, L3410.9992, L501.6710, L101.9900 ####[facility] [address] [place], [address] IG% 0.500 Normal 0.0-0.9 [facility] Comment on above: Result Comment: IG% - Immature Granulocytes (promyelocytes, myelocytes and metamyelocytes) > 1% indicates that a LEFT SHIFT is Present. Performed By: #### L 500.4050, L300.3900, L100.0100, L3410.9992, L501.6710, L101.9900 ####[facility] [address] [place], [address] Lymphocytes/100 WBC (Bld) 17.3 % Low 19-41 [facility] Comment on above: Performed By: #### L 500.4050, L300.3900, L100.0100, L3410.9992, L501.6710, L101.9900 ####[facility] [address] [place], [address] MCH (RBC) [Entitic mass] 29.9 pg Normal 27.0-32.0 [facility] Comment on above: Performed By: #### L 500.4050, L300.3900, L100.0100, L3410.9992, L501.6710, L101.9900 ####[facility] [address] [place], [address] MCHC (RBC) [Mass/Vol] 33.3 g/dL Normal 32-36 [facility] Comment on above: Performed By: #### L 500.4050, L300.3900, L100.0100, L3410.9992, L501.6710, L101.9900 ####[facility] [address] [place], [address] MCV (RBC) [Entitic vol] 89.6 fL Normal 81-99 [facility] Comment on above: Performed By: #### L 500.4050, L300.3900, L100.0100, L3410.9992, L501.6710, L101.9900 ####[facility] [address] [place], [address] Monocytes/100 WBC (Bld) 4.5 % Normal 0-10 [facility] Comment on above: Performed By: #### L 500.4050, L300.3900, L100.0100, L3410.9992, L501.6710, L101.9900 ####[facility] [address] [place], [address] Neutrophils/100 WBC (Bld) 76.6 % High 47-70 [facility] Comment on above: Performed By: #### L 500.4050, L300.3900, L100.0100, L3410.9992, L501.6710, L101.9900 ####[facility] [address] [place], [address] Nucleated RBC (Bld) [#/Vol] 0 10*3/uL Normal 0-5 [facility] Comment on above: Performed By: #### L 500.4050, L300.3900, L100.0100, L3410.9992, L501.6710, L101.9900 ####[facility] [address] [place], [address] Platelet mean volume (Bld) [Entitic vol] 10.2 fL Normal 6.2-12.0 [facility] Comment on above: Performed By: #### L 500.4050, L300.3900, L100.0100, L3410.9992, L501.6710, L101.9900 ####[facility] [address] [place], [address] Platelets (Bld) [#/Vol] 388 10*3/uL Normal 150-450 [facility] Comment on above: Performed By: #### L 500.4050, L300.3900, L100.0100, L3410.9992, L501.6710, L101.9900 ####[facility] [address] [place], [address] RBC (Bld) [#/Vol] 3.75 10*6/uL Low 4.2-5.4 [facility] Comment on above: Performed By: #### L 500.4050, L300.3900, L100.0100, L3410.9992, L501.6710, L101.9900 ####[facility] [address] [place], [address] RDW SD 41.8 fl Normal 35.1-43.9 [facility] Comment on above: Performed By: #### L 500.4050, L300.3900, L100.0100, L3410.9992, L501.6710, L101.9900 ####[facility] [address] [place], [place], [phone] WBC (Bld) [#/Vol] 9.9 10*3/uL Normal 4.4-11.0 [facility] Comment on above: Performed By: #### L 500.4050, L300.3900, L100.0100, L3410.9992, L501.6710, L101.9900 ####[facility] [address] [place], [address] CRPon 02-02-2025 C-REACTIVE PROT 11.70 mg/L High 0.0-3.0 [facility] Comment on above: Performed By: #### L 500.4050, L300.3900, L100.0100, L3410.9992, L501.6710, L101.9900 ####[facility] [address] [place], [place], [id number] Carbon dioxide, total [Moles /volume] in Central venous bloodOrdered By: Domo Friend on 02-02-2025 CO2 [Moles/Vol] 18.9 mmol/L Low 21.0-32.0 [facility] Chloride assayOrdered By: Ra otto Friend on 02-02-2025 Chloride [Moles/Vol] 103 mmol/L 98-108 [facility] Comprehensive Metabolic Prof ilon 02-02-2025 Albumin [Mass/Vol] 4.3 g/dL Normal 3.5-5.0 [facility] Comment on above: Performed By: #### L 500.4050, L300.3900, L100.0100, L3410.9992, L501.6710, L101.9900 ####[facility] [address] [place], [place], [phone] Albumin/Globulin [Mass ratio] 1.4 {ratio} Normal 0.9-2.4 [facility] Comment on above: Performed By: #### L 500.4050, L300.3900, L100.0100, L3410.9992, L501.6710, L101.9900 ####[facility] [address] [place], [address] ALK PHOS 64 U/L Normal 35-104 [facility] Comment on above: Performed By: #### L 500.4050, L300.3900, L100.0100, L3410.9992, L501.6710, L101.9900 ####[facility] [address] [place], [address] ALT [Catalytic activity/Vol] 22 U/L Normal <=34 [facility] Comment on above: Performed By: #### L 500.4050, L300.3900, L100.0100, L3410.9992, L501.6710, L101.9900 ####[facility] [address] [place], [address] AST [Catalytic activity/Vol] 14 U/L Normal <=31 [facility] Comment on above: Performed By: #### L 500.4050, L300.3900, L100.0100, L3410.9992, L501.6710, L101.9900 ####[facility] [address] [place], [address] BUN/CRE 16.4 RATIO Normal 10-20 [facility] Comment on above: Performed By: #### L 500.4050, L300.3900, L100.0100, L3410.9992, L501.6710, L101.9900 ####[facility] [address] [place], [address] Calcium [Mass/Vol] 9.2 mg/dL Normal 7.6-11.0 [facility] Comment on above: Performed By: #### L 500.4050, L300.3900, L100.0100, L3410.9992, L501.6710, L101.9900 ####[facility] [address] [place], [address] Chloride [Moles/Vol] 103 mmol/L Normal 98-108 [facility] Comment on above: Performed By: #### L 500.4050, L300.3900, L100.0100, L3410.9992, L501.6710, L101.9900 ####[facility] [address] [place], [address] CO2 [Moles/Vol] 18.9 mmol/L Low 21.0-32.0 [facility] Comment on above: Performed By: #### L 500.4050, L300.3900, L100.0100, L3410.9992, L501.6710, L101.9900 ####[facility] [address] [place], [address] Creatinine [Mass/Vol] 0.56 mg/dL Low 0.70-1.20 [facility] Comment on above: Performed By: #### L 500.4050, L300.3900, L100.0100, L3410.9992, L501.6710, L101.9900 ####[facility] [address] [place], [address] GAP 13 Normal 5-15 [facility] Comment on above: Performed By: #### L 500.4050, L300.3900, L100.0100, L3410.9992, L501.6710, L101.9900 ####[facility] [address] [place], [address] GFR/1.73 sq M.predicted among non-blacks MDRD (S/P/Bld) [Vol rate/Area] 126 mL/min/{1.73_m2} Normal >60 [facility] Comment on above: Result Comment: mL/m in/1.73m2 CKD-EPI Creatinine Equation (2020) Performed By: #### L 500.4050, L300.3900, L100.0100, L3410.9992, L501.6710, L101.9900 ####[facility] [address] [place], [address] Globulin (S) [Mass/Vol] 3.1 g/dL Normal 2.2-4.2 [facility] Comment on above: Performed By: #### L 500.4050, L300.3900, L100.0100, L3410.9992, L501.6710, L101.9900 ####[facility] [address] [place], [address] Glucose [Mass/Vol] 132 mg/dL High 70-99 [facility] Comment on above: Performed By: #### L 500.4050, L300.3900, L100.0100, L3410.9992, L501.6710, L101.9900 ####[facility] [address] [place], [address] Potassium [Moles/Vol] 3.9 mmol/L Normal 3.3-5.1 [facility] Comment on above: Performed By: #### L 500.4050, L300.3900, L100.0100, L3410.9992, L501.6710, L101.9900 ####[facility] [address] [place], [address] Sodium [Moles/Vol] 134 mmol/L Normal 133-145 [facility] Comment on above: Performed By: #### L 500.4050, L300.3900, L100.0100, L3410.9992, L501.6710, L101.9900 ####[facility] [address] [place], [place], [address] T BILI < 0.15 Normal 0.00-1.30 [facility] Comment on above: Performed By: #### L 500.4050, L300.3900, L100.0100, L3410.9992, L501.6710, L101.9900 ####[facility] [address] [place], [address] T PROT 7.4 g/dL Normal 5.9-8.4 [facility] Comment on above: Performed By: #### L 500.4050, L300.3900, L100.0100, L3410.9992, L501.6710, L101.9900 ####[facility] [address] [place], [address] Urea nitrogen [Mass/Vol] 9 mg/dL Normal 4-19 [facility] Comment on above: Performed By: #### L 500.4050, L300.3900, L100.0100, L3410.9992, L501.6710, L101.9900 ####[facility] [address] [place], [place], [id number] Eosinophil percentageOrdered By: Domo Weaver on 02-02-2025 Eosinophils/100 WBC (Bld) 0.7 % 0-5 [facility] Erythrocyte Sed Rateon 02-02 SED RATE 28 mm/hr Normal 0-30 [facility] Comment on above: Performed By: #### L 500.4050, L300.3900, L100.0100, L3410.9992, L501.6710, L101.9900 ####[facility] [address] [place], [place], [id number] Erythrocyte distribution wid th ratioOrdered By: Domo Weaver on 02-02-2025 Erythrocyte distribution width (RBC) [Ratio] 12.7 % 11.6-14.6 [facility] Erythrocyte distribution wid th standard deviationOrdered By: Domo Weaver on 02-02-2025 Erythrocyte distribution width (RBC) [Ratio] 41.8 fl 35.1-43.9 [facility] Erythrocyte sedimentation ra teOrdered By: Domo Weaver on 02-02-2025 ESR (Bld) [Velocity] 28 mm/h 0-30 [facility] Glomerular filtration rate ( GFR) estimation/1.73 sq m using serum, plasma, or whole bOrdered By: Domo Weaver on 02-02-2025 GFR/1.73 sq M.predicted among non-blacks MDRD (S/P/Bld) [Vol rate/Area] 126 mL/min/{1.73_m2} >60 [facility] Comment on above: mL/min/1.73m2 CKD-EP I Creatinine Equation (2020) Hematocrit Auto (Bld) [Volum e fraction]Ordered By: Domo Weaver on 02-02-2025 Hematocrit (Bld) [Volume fraction] 33.6 % Low 37-47 [facility] Hemoglobin measurementOrdere d By: Domo Weaver on 02-02-2025 Hemoglobin (Bld) [Mass/Vol] 11.2 g/dL Low 12.0-15.0 [facility] Immature granulocytes/100 WB C Auto (Bld)Ordered By: Domo Weaver on 02-02-2025 Immature granulocytes/100 WBC (Bld) 0.500 % 0.0-0.9 [facility] Comment on above: IG% - Immature Granu locytes (promyelocytes, myelocytes and metamyelocytes) > 1% indicates that a LEFT SHIFT is Present. International normalized rat io (INR) calculationOrdered By: Domo Weaver on 02-02-2025 INR Coag (Bld) [Relative time] 0.9 {INR} [facility] Laboratory - Chemistry and C hemistry - challengeOrdered By: Domo Weaver on 02-02-2025 AST [Catalytic activity/Vol] 14 U/L <32 [facility] MCV (mean corpuscular volume ) determinationOrdered By: Domo Weaver on 02-02-2025 MCV (RBC) [Entitic vol] 89.6 fL 81-99 [facility] Mean corpuscular hemoglobin (MCH) determinationOrdered By: Domo Weaver on 02-02-2025 MCH (RBC) [Entitic mass] 29.9 pg 27.0-32.0 [facility] Mean corpuscular hemoglobin concentration (MCHC) determinationOrdered By: Domo Weaver on 02-02-2025 MCHC (RBC) [Mass/Vol] 33.3 g/dL 32-36 [facility] Mean platelet volume determi nationOrdered By: Domoyamileth Weaver on 02-02-2025 Platelet mean volume (Bld) [Entitic vol] 10.2 fL 6.2-12.0 [facility] Monocyte percentageOrdered B y: Domorobles Weaver on 02-02-2025 Monocytes/100 WBC (Bld) 4.5 % 0-10 [facility] Neutrophil percentageOrdered By: Domoyamileth Weaver on 02-02-2025 Neutrophils/100 WBC (Bld) 76.6 % High 47-70 [facility] Nucleated red blood cell per centageOrdered By: Domoyamileth Weaver on 02-02-2025 Nucleated RBC/100 WBC (Bld) [Ratio] 0 % 0-5 [facility] [employer] Measures Office Visit Reporton 02-02-2025 Director Weights And Measures Office Visit Report [facility] [address], [facility] [address] [place] [address] OFFICE VISIT Date of Service: 02/02/25 MR#: [id number] Acct: [id number] Name: MARIAX AMOS Rep #: [id number] : 1995 Provider: STEFANIE coronel Age/Sex: 29/F [place] [facility] [place]: Signed Intake Vital Signs 01/25/25 14:45 02/02/25 15:25 Height 5 ft 3 in 5 ft 3 in Weight: 184 lb 8 oz 186 lb 4 oz BMI 32.6 33.0 BP 128/62 H 143/86 H Blood Pressure Location Rt brachial Position Sitting Intake Visit Reasons: fu early spotting per Assistant Tennis Coach Required: No Is patient in pain?: No [...] mg-folate no.1 1 mg-dha 300 mg capsule (PNV-[place]) prednisone 10 mg tablet 10 mg PO QDAY 01/26/25 02/02/25 Hi story progesterone oil 75 mg IM QHS 01/26/25 02/02/25 His tory Post menopausal: No [facility] : Yes [facility] Obesity (BMI 30.0-34.9) Other obesity [...] 3-4 times per week duration: 45-60 minutes/day cathy/sikhism: None seatbelt use: always do you feel safe at home: Yes 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 per Details: MARIXA [...] Anesthesia Del Locatn Provider FOB Unknown 07/2023 Delivery Date: Last Updated by: Jacquie Durán [...] Cosigner Signature: Date (if applicable) CC: Normal [facility] Platelet countOrdered By: Ra otto Friend on 02-02-2025 Platelets (Bld) [#/Vol] 388 10*3/uL 150-450 [facility] Potassium measurement (mass/ volume)Ordered By: Domo Friend on 02-02-2025 Potassium (Unsp spec) [Mass/Vol] 3.9 mmol/L 3.3-5.1 [facility] Prothrombin Time w/INRon INR Coag (PPP) [Relative time] 0.9 {INR} Normal [facility] Comment on above: Performed By: #### L 500.4050, L300.3900, L100.0100, L3410.9992, L501.6710, L101.9900 ####[facility] [address] [place], [place], [id number] PT Coag (PPP) [Time] 12.2 s Normal 11.7-14.9 [facility] Comment on above: Performed By: #### L 500.4050, L300.3900, L100.0100, L3410.9992, L501.6710, L101.9900 ####[facility] [address] [place], [place], [id number] Prothrombin timeOrdered By: Domo Weaver on 02-02-2025 PT Coag (PPP) [Time] 12.2 s 11.7-14.9 [facility] RBC Auto (Bld) [#/Vol]Ordere d By: Domo Weaver on 02-02-2025 RBC (Bld) [#/Vol] 3.75 10*6/uL Low 4.2-5.4 [facility] Serum creatinine measurement (mass/volume)Ordered By: Domo Weaver on 02-02-2025 Creatinine [Mass/Vol] 0.56 mg/dL Low 0.70-1.20 [facility] Serum globulin measurementOr dered By: Domo Weaver on 02-02-2025 Globulin (S) [Mass/Vol] 3.1 g/dL 2.2-4.2 [facility] Serum glucose measurement (m ass/volume)Ordered By: Domo Weaver on 02-02-2025 Glucose [Mass/Vol] 132 mg/dL High 70-99 [facility] Serum or plasma C reactive p rotein measurement (mass/volume)Ordered By: Domo Weaver on 02-02-2025 CRP [Mass/Vol] 11.70 mg/L High 0.0-3.0 [facility] Serum or plasma alanine parisi otransferase (ALT) measurementOrdered By: Domo Weaver on 02-02-2025 ALT [Catalytic activity/Vol] 22 U/L <35 [facility] Serum or plasma albumin arielle urement (mass/volume)Ordered By: Domo Weaver on 02-02-2025 Albumin [Mass/Vol] 4.3 g/dL 3.5-5.0 [facility] Serum or plasma albumin/glob ulin mass ratioOrdered By: Domo Weaver on 02-02-2025 Albumin/Globulin [Mass ratio] 1.4 {ratio} 0.9-2.4 [facility] Serum or plasma alkaline marcelo sphatase measurementOrdered By: Domo Weaver on 02-02-2025 ALP [Catalytic activity/Vol] 64 U/L 35-104 [facility] Serum or plasma calcium arielle urement (mass/volume)Ordered By: Domo Weaver on 02-02-2025 Calcium [Mass/Vol] 9.2 mg/dL 7.6-11.0 [facility] Serum or plasma urea nitroge n measurement (mass/volume)Ordered By: Domo Weaver on 02-02-2025 Urea nitrogen [Mass/Vol] 9 mg/dL 4-19 [facility] Sodium levelOrdered By: Alisa Michelle on 02-02-2025 Sodium [Moles/Vol] 134 mmol/L 133-145 [facility] Total proteinOrdered By: Lai Weaver on 02-02-2025 Protein [Mass/Vol] 7.4 g/dL 5.9-8.4 [facility] White blood cell (WBC) count Ordered By: Domo Weaver on 02-02-2025 WBC (Bld) [#/Vol] 9.9 10*3/uL 4.4-11.0 [facility] Laboratory - Chemistry and C hemistry - challengeOrdered By: Carmen Lugo on 01-26-2025 HCG ( test) Ql (U) Positive [facility] Office Visit Reporton 2024 Office Visit Report [facility] [place] [address] OFFICE VISIT Date of Service: 01/26/25 MR#: [id number] Acct: [id number] Patient: MARIXA AMOS Rep #: [id number] : 1995 Provider: Dr. Carmen dixon MD Age/Sex: 29/F [place] [facility] [place] Status: Signed Intake Vital Signs 07/12/24 08:32 01/25/25 14:45 Height 5 ft 3 in 5 ft 3 in Weight: 184 lb 8 oz BMI 32.6 BP 128/62 H Blood Pressure Location Rt brachial Position Sitting Intake Visit Reasons: Pre new ob, confirm preg, vitals Chief Complaint: Fertility consult Assistant Tennis Coach Required: No Accompanied by: Is patient in [...] mg-folate no.1 1 mg-dha 300 mg capsule (PNV-[place]) prednisone 10 mg tablet 10 mg PO [...] +UPT Orders: Orders CBC W/Diff, Automated 01/26/25 O - Supervision of high risk , unspecified, [...] - Amenorrhea, unspecified 01/27/25 1136 Date Carmen Koo Signature: Date (if applicable) CC: Normal [facility] OB TRANSVAGINALon 025 OB TRANSVAGINAL Interpreted [...] evaluation for early dating. View: Sufficient Normal [facility] Blood type and Indirect anti body screen panel (Bld)on 01-22-2025 ABO group Nom (Bld) B [facility] Blood group antibody screen Ql Negative [facility] D Ag Ql (Bld) Positive [facility] ABO group Nom (Bld) B Normal [facility] Comment on above: Performed By: #### 2 243-4 #### MARIA E KAPADIA ([id number]) [facility] [place] [place] [address] [place] [address] Blood group antibody screen Ql Negative Normal [facility] Comment on above: Performed By: #### 2 243-4 #### MARIA E KAPADIA ([id number]) [facility] [place] [place] [address] [place] [address] D Ag Ql (Bld) Positive Normal [facility] Comment on above: Performed By: #### 2 243-4 #### MARIA E KAPADIA ([id number]) [facility] [place] [address] [place] [address] C. trachomatis and N. gonorr hoeae DNA ALEKSEY+probe Nom (Unsp spec)on 01-22-2025 C. trachomatis rRNA ALEKSEY+probe Ql (Unsp spec) Negative Normal Negative [facility] Comment on above: Order Comment: REF V ALUES FOLLICULAR PHASE 20-144 MID CYCLE 64-357 LUTEAL PHASE 56-214 POSTMENOPAUSE < 32 PREPUBERTY < 20 FEMALE 10-18Y 8-110 MALE 10-18Y < 20 ADULT MALE < 40 Performed By: #### 2 243-4 #### MARIA E KAPADIA ([id number]) [facility] [place] [address] [place] [address] N. gonorrhoeae DNA Probe+sig amp Ql (Unsp spec) Negative Normal Negative [facility] Comment on above: Order Comment: REF V ALUES FOLLICULAR PHASE 20-144 MID CYCLE 64-357 LUTEAL PHASE 56-214 POSTMENOPAUSE < 32 PREPUBERTY < 20 FEMALE 10-18Y 8-110 MALE 10-18Y < 20 ADULT MALE < 40 Performed By: #### 2 243-4 #### MARIA E KAPADIA ([id number]) [facility] [place] [address] [place] [id number] CBC W Auto Differential pane l (Bld)on 01-22-2025 Basophils (Bld) [#/Vol] 0.04 10*3/uL [facility] Basophils/100 WBC (Bld) 0.5 % 0.0 - 2.0 % [facility] Eosinophils (Bld) [#/Vol] 0.07 10*3/uL [facility] Eosinophils/100 WBC (Bld) 0.8 % 0.0 - 6.0 % [facility] Erythrocyte distribution width (RBC) [Ratio] 12.7 % 11.5 - 14.5 % [facility] Hematocrit (Bld) [Volume fraction] 32.8 % Low 36.0 - 46.0 % [facility] Hemoglobin (Bld) [Mass/Vol] 11.1 g/dL Low 12.0 - 16.0 g/dL [facility] Immature granulocytes (Bld) [#/Vol] 0.05 10*3/uL [facility] Immature granulocytes/100 WBC (Bld) 0.6 % 0.0 - 0.9 % [facility] Comment on above: Immature Granulocyte Count (IG) includes promyelocytes, myelocytes and metamyelocytes but does not include bands. Percent differential counts (%) should be interpreted in the context of the absolute cell counts (cells/UL). Interpretation and review of laboratory results Abnormal [facility] Lymphocytes (Bld) [#/Vol] 1.19 10*3/uL Low [facility] Lymphocytes/100 WBC (Bld) 13.9 % 13.0 - 44.0 % [facility] MCH (RBC) [Entitic mass] 30.1 pg 26.0 - 34.0 pg [facility] MCHC (RBC) [Mass/Vol] 33.8 g/dL 32.0 - 36.0 g/dL [facility] MCV (RBC) [Entitic vol] 89 fL 80 - 100 fL [facility] Monocytes (Bld) [#/Vol] 0.34 10*3/uL [facility] Monocytes/100 WBC (Bld) 4 % 2.0 - 10.0 % [facility] Neutrophils (Bld) [#/Vol] 6.86 10*3/uL [facility] Comment on above: Percent differential counts (%) should be interpreted in the context of the absolute cell counts (cells/uL). Neutrophils/100 WBC (Bld) 80.2 % 40.0 - 80.0 % [facility] Nucleated RBC/100 WBC (Bld) [Ratio] 0 % [facility] Platelets (Bld) [#/Vol] 319 10*3/uL [facility] RBC (Bld) [#/Vol] 3.69 10*6/uL [facility] WBC (Bld) [#/Vol] 8.6 10*3/uL [facility] Basophils (Bld) [#/Vol] 0.04 x10*3/uL Normal 0.00-0.10 [facility] Comment on above: Performed By: #### 2 [id number] #### MARIA E KAPADIA ([id number]) [facility] [place] [place] [address] [place] [address] Basophils/100 WBC (Bld) 0.5 % Normal 0.0-2.0 [facility] Comment on above: Performed By: #### 2 243-4 #### MARIA E KAPADIA ([id number]) [facility] ([facility] [address] [place] [address] Eosinophils (Bld) [#/Vol] 0.07 x10*3/uL Normal 0.00-0.70 [facility] Comment on above: Performed By: #### 2 243-4 #### MARIA E KAPADIA ([id number]) [facility] ([facility] [address] [place] [address] Eosinophils/100 WBC (Bld) 0.8 % Normal 0.0-6.0 [facility] Comment on above: Performed By: #### 2 243-4 #### MARIA E KAPADIA ([id number]) [facility] ([facility] [address] [place] [address] Erythrocyte distribution width (RBC) [Ratio] 12.7 % Normal 11.5-14.5 [facility] Comment on above: Performed By: #### 2 243-4 #### MARIA E KAPADIA ([id number]) [facility] ([facility] [address] [place] [address] Hematocrit (Bld) [Volume fraction] 32.8 % Low 36.0-46.0 [facility] Comment on above: Performed By: #### 2 243-4 #### MARIA E KAPADIA ([id number]) [facility] ([facility] [address] [place] [address] Hemoglobin (Bld) [Mass/Vol] 11.1 g/dL Low 12.0-16.0 [facility] Comment on above: Performed By: #### 2 243-4 #### MARIA E KAPADIA ([id number]) [facility] ([facility] [address] [place] [address] Immature granulocytes (Bld) [#/Vol] 0.05 x10*3/uL Normal 0.00-0.70 [facility] Comment on above: Performed By: #### 2 243-4 #### MARIA E KAPADIA ([id number]) [facility] ([facility] [address] [place], [place] [id number] Immature granulocytes/100 WBC (Bld) 0.6 % Normal 0.0-0.9 [facility] Comment on above: Result Comment: Ewa ture Granulocyte Count (IG) includes promyelocytes, myelocytes and metamyelocytes but does not include bands. Percent differential counts (%) should be interpreted in the context of the absolute cell counts (cells/UL). Performed By: #### 2 243-4 #### MARIA E KAPADIA ([id number]) [facility] ([facility] [address] [place], [place] [address] Lymphocytes (Bld) [#/Vol] 1.19 x10*3/uL Low 1.20-4.80 [facility] Comment on above: Performed By: #### 2 243-4 #### MARIA E KAPADIA ([id number]) [facility] [address] [place] [address] Lymphocytes/100 WBC (Bld) 13.9 % Normal 13.0-44.0 [facility] Comment on above: Performed By: #### 2 243-4 #### MARIA E KAPADIA ([id number]) [facility] ([facility] [address] [place] [address]482 MCH (RBC) [Entitic mass] 30.1 pg Normal 26.0-34.0 [facility] Comment on above: Performed By: #### 2 243-4 #### MARIA E KAPADIA ([id number]) [facility] [address] [place] [address] MCHC (RBC) [Mass/Vol] 33.8 g/dL Normal 32.0-36.0 [facility] Comment on above: Performed By: #### 2 243-4 #### MARIA E KAPADIA ([id number]) [facility] [address] [place] [address] MCV (RBC) [Entitic vol] 89 fL Normal 80-100 [facility] Comment on above: Performed By: #### 2 243-4 #### MARIA E KAPADIA ([id number]) [facility] ([facility] [address] [phone] Monocytes (Bld) [#/Vol] 0.34 x10*3/uL Normal 0.10-1.00 [facility] Comment on above: Performed By: #### 2 243-4 #### MARIA E KAPADIA ([id number]) [facility] ([facility] [address] [place] [address] Monocytes/100 WBC (Bld) 4.0 % Normal 2.0-10.0 [facility] Comment on above: Performed By: #### 2 243-4 #### MARIA E KAPADIA ([id number]) [facility] ([facility] [address] [place] [address] Neutrophils (Bld) [#/Vol] 6.86 x10*3/uL Normal 1.20-7.70 [facility] Comment on above: Result Comment: Perc ent differential counts (%) should be interpreted in the context of the absolute cell counts (cells/uL). Performed By: #### 2 243-4 #### MARIA E KAPADIA ([id number]) [facility] ([facility] [address] [place] [address] Neutrophils/100 WBC (Bld) 80.2 % Normal 40.0-80.0 [facility] Comment on above: Performed By: #### 2 243-4 #### MARIA E KAPADIA ([id number]) [facility] ([facility] [address] [place] [address] Nucleated RBC/100 WBC (Bld) [Ratio] 0.0 /100 WBCs Normal 0.0-0.0 [facility] Comment on above: Performed By: #### 2 243-4 #### MARIA E KAPADIA ([id number]) [facility] ([facility] [address] [place] [address] Platelets (Bld) [#/Vol] 319 x10*3/uL Normal 150-450 [facility] Comment on above: Performed By: #### 2 243-4 #### MARIA E KAPADIA ([id number]) [facility] ([facility] [address] [place] [address] RBC (Bld) [#/Vol] 3.69 x10*6/uL Low 4.00-5.20 [facility] Comment on above: Performed By: #### 2 243-4 #### MARIA E KAPADIA ([id number]) [facility] ([facility] [address] [place] [address] WBC (Bld) [#/Vol] 8.6 x10*3/uL Normal 4.4-11.3 [facility] Comment on above: Performed By: #### 2 243-4 #### MARIA E KAPADIA ([id number]) [facility] ([facility] [address] [place] [address] Choriogonadotropin.beta subu niton 01-22-2025 [place] [address] m[IU]/mL High <5 U [facility] Comment on above: Order Comment: REF [...] #### 2 243-4 #### MARIA E STEFFI ([id number]) [facility] ([facility] [address] [place] [address] Comprehensive metabolic 2000 panelon 01-22-2025 Albumin BCP dye [Mass/Vol] 4.5 g/dL 3.4 - 5.0 g/dL [facility] ALP [Catalytic activity/Vol] 56 U/L 33 - 110 U/L [facility] ALT With P-5'-P [Catalytic activity/Vol] 21 U/L 7 - 45 U/L [facility] Comment on above: Patients treated wit h Sulfasalazine may generate falsely decreased results for ALT. Anion gap [Moles/Vol] 15 mmol/L 10 - 2 0 mmol/L [facility] AST With P-5'-P [Catalytic activity/Vol] 18 U/L 9 - 39 U/L [facility] Bilirubin [Mass/Vol] 0.2 mg/dL 0.0 - 1 .2 mg/dL [facility] Calcium [Mass/Vol] 9.4 mg/dL 8.6 - 10. 3 mg/dL [facility] Chloride [Moles/Vol] 106 mmol/L 98 - 10 7 mmol/L [facility] CO2 [Moles/Vol] 19 mmol/L Low 21 - 32 mmol/L [facility] Creatinine [Mass/Vol] 0.83 mg/dL 0.50 - 1.05 mg/dL [facility] eGFR - PINF [facility] Comment on above: Calculations of isabelle mated GFR are performed using the 2020 CKD-EPI Study Refit equation without the race variable for the IDMS-Traceable creatinine methods. https://jasn.asnjournals.org/content//ASN.07190 51854 Glucose [Mass/Vol] 110 mg/dL High 74 - 99 mg/dL [facility] Interpretation and review of laboratory results Abnormal [facility] Potassium [Moles/Vol] 4.3 mmol/L 3.5 - 5.3 mmol/L [facility] Protein [Mass/Vol] 6.9 g/dL 6.4 - 8.2 g/dL [facility] Sodium [Moles/Vol] 136 mmol/L 136 - 145 mmol/L [facility] Urea nitrogen [Mass/Vol] 10 mg/dL 6 - 23 mg/dL [facility] Albumin BCP dye [Mass/Vol] 4.5 g/dL Normal 3.4-5.0 [facility] Comment on above: Performed By: #### 2 243-4 #### MARIA E KAPADIA ([id number]) [facility] ([facility] [address] [place] [address] ALP [Catalytic activity/Vol] 56 U/L Normal 33-110 [facility] Comment on above: Performed By: #### 2 243-4 #### MARIA E KAPADIA ([id number]) [facility] ([facility] [address] [place] [address] ALT With P-5'-P [Catalytic activity/Vol] 21 U/L Normal 7-45 [facility] Comment on above: Result Comment: Silvina ents treated with Sulfasalazine may generate falsely decreased results for ALT. Performed By: #### 2 243-4 #### MARIA E KAPADIA ([id number]) [facility] ([facility] [address] [place] [address] Anion gap [Moles/Vol] 15 mmol/L Normal 10-20 [facility] Comment on above: Performed By: #### 2 243-4 #### MARIA E KAPADIA ([id number]) [facility] ([facility] [address] [place] [phone] AST With P-5'-P [Catalytic activity/Vol] 18 U/L Normal 9-39 [facility] Comment on above: Performed By: #### 2 243-4 #### MARIA E KAPADIA ([id number]) [facility] ([facility] [address] [phone] Bilirubin [Mass/Vol] 0.2 mg/dL Normal 0.0-1.2 [facility] Comment on above: Performed By: #### 2 243-4 #### MARIA E KAPADIA ([id number]) [facility] ([facility] [address] [place] [address] Calcium [Mass/Vol] 9.4 mg/dL Normal 8.6-10.3 [facility] Comment on above: Performed By: #### 2 243-4 #### MARIA E KAPADIA ([id number]) [facility] ([facility] [address] [place] [address] Chloride [Moles/Vol] 106 mmol/L Normal 98-107 [facility] Comment on above: Performed By: #### 2 243-4 #### MARIA E KAPADIA ([id number]) [facility] ([facility] [address] [place] [address] CO2 [Moles/Vol] 19 mmol/L Low 21-32 [facility] Comment on above: Performed By: #### 2 243-4 #### MARIA E KAPADIA ([id number]) [facility] ([facility] [address] [place] [address] Creatinine [Mass/Vol] 0.83 mg/dL Normal 0.50-1.05 [facility] Comment on above: Performed By: #### 2 243-4 #### MARIA E KAPADIA ([id number]) [facility] ([facility] [address] [place] [address] GFR/1.73 sq M.predicted MDRD (S/P/Bld) [Vol rate/Area] mL/min/{1.73_m2} Normal >60 [facility] Comment on above: Result Comment: Calc ulations of estimated GFR are performed using the 2020 CKD-EPI Study Refit equation without the race variable for the IDMS-Traceable creatinine methods. https://jasn.asnjournals.org/content//ASN.92744 84704 Performed By: #### 2 243-4 #### MARIA E KAPADIA ([id number]) [facility] ([facility] [address] [place] [address] Glucose [Mass/Vol] 110 mg/dL High 74-99 [facility] Comment on above: Performed By: #### 2 243-4 #### MARIA E KAPADIA ([id number]) [facility] ([facility] [address] [place] [address] Potassium [Moles/Vol] 4.3 mmol/L Normal 3.5-5.3 [facility] Comment on above: Performed By: #### 2 243-4 #### MARIA E KAPADIA ([id number]) [facility] ([facility] [address] [place] [address] Protein [Mass/Vol] 6.9 g/dL Normal 6.4-8.2 [facility] Comment on above: Performed By: #### 2 243-4 #### MARIA E KAPADIA ([id number]) [facility] ([facility] [address] [place] [address] Sodium [Moles/Vol] 136 mmol/L Normal 136-145 [facility] Comment on above: Performed By: #### 2 243-4 #### MARIA E KAPADIA ([id number]) [facility] ([facility] [address] [phone] Urea nitrogen [Mass/Vol] 10 mg/dL Normal 6-23 [facility] Comment on above: Performed By: #### 2 243-4 #### MARIA E KAPADIA ([id number]) [facility] ([facility] [address] [phone] HCG.beta subunit Qnon 2024 Interpretation and review of laboratory results Abnormal [facility] Total HCG measuremen t is performed using the Елена [place] Access Immunoassay which detects intact HCG and free beta HCG subunit. This test is not indicated for use as a tumor marker. HCG testing is performed using a different test methodology at [facility] than other [facility]. Direct result comparison should only be made within the same method. [facility] Human Chorionic Gonadotropin , Serum Quantitativeon 01-22-2025 [place] [address] m[IU]/mL High [facility] U [facility] Comment [...] (Unsp spec) None Seen None Seen [facility] T. vaginalis Wet prep Ql (Unsp spec) None Seen None Seen [facility] WBC Wet prep Ql (Vag fld) 1-2 [facility] Yeast Wet prep Ql (Vag fld) None Seen None Seen [facility] Microscopic observation Wet prep Nom (Unsp spec)on 01-22-2025 Clue cells Wet prep Ql (Unsp spec) None Seen Normal None Seen [facility] Comment on above: Performed By: #### 2 243-4 #### MARIA E KAPADIA ([id number]) [facility] ([facility] [address] [place] [address] T. vaginalis Wet prep Ql (Unsp spec) None Seen Normal None Seen [facility] Comment on above: Performed By: #### 2 243-4 #### MARIA E KAPADIA ([id number]) [facility] ([facility] [address] [place] [address] WBC Wet prep Ql (Vag fld) 1-2 Normal [facility] Comment on above: Performed By: #### 2 243-4 #### MARIA E KAPADIA ([id number]) [facility] ([facility] [address] [place] [address] Yeast Wet prep Ql (Vag fld) None Seen Normal None Seen [facility] Comment on above: Performed By: #### 2 243-4 #### MARIA E KAPADIA ([id number]) [facility] ([facility] [address] [phone] US OB LESS THAN 14 WEEKS EAR [place] 01-22-2025 US OB LESS THAN 14 WEEKS EARLY Interpreted By: Lisa Parmar, STUDY: US OB LESS THAN 14 WEEKS EARLY 01/22/2025 12:37 pm INDICATION: Signs/Symptoms:6 weeks with brown/pink discharge and lower back pain COMPARISON: 01/18/2025 ACCESSION NUMBER(S): [id number] ORDERING CLINICIAN: ZANE PRYOR TECHNIQUE: Transabdominal and [...] Lisa Parmar 01/22/2025 1:12 PM Dictation workstation: [id number] [facility] US for in first tr imesteron 01-22-2025 Single live intraute rine gestation of 6 weeks and 5 days sonographic gestational age. There has been normal interval growth since 01/18/2025. 0.4 x 0.6 x 0.9 cm subchorionic hemorrhage. Signed by: Lisa Parmar 01/22/2025 1:12 PM Dictation workstation: [id number] [facility] Interpreted By: Lisa Parmar, STUDY: US OB LESS THAN 14 WEEKS EARLY 01/22/2025 12:37 pm INDICATION: Signs/Symptoms:6 weeks with brown/pink discharge and lower back pain COMPARISON: 01/18/2025 ACCESSION NUMBER(S): [id number] ORDERING CLINICIAN: ZANE PRYOR TECHNIQUE: Transabdominal and [...] lower back pain COMPARISON: 01/18/2025 ACCESSION NUMBER(S): [id number] ORDERING CLINICIAN: ZANE PRYOR TECHNIQUE: Transabdominal and [...] Lisa Parmar 01/22/2025 1:12 PM Dictation workstation: [id number] [facility] Work Phone: Radiology Study observation (narrative) [facility] Work Phone: US for in first tr imesterOrdered By: Lisa Parmar on 01-22-2025 [facility] Work Phone: Urinalysis complete W Reflex Culture panel (U)on 01-22-2025 Appearance (U) Clear Clear [facility] Bilirubin (U) [Mass/Vol] Negative NEGATIVE mg/dL [facility] Color (U) Colorless Abnormal Light-Yellow , Yellow, Dark-Yellow [facility] Glucose Auto test strip (U) [Mass/Vol] Normal Normal mg/dL [facility] Interpretation and review of laboratory results Abnormal [facility] Ketones (U) [Mass/Vol] Negative NEGAT CARMEN mg/dL [facility] Leukocyte esterase Auto test strip Ql (U) Negative NEGATIVE [facility] Nitrite Auto test strip Ql (U) Negative NEGATIVE [facility] pH (U) 8 [pH] 5.0, 5.5, 6.0, 6.5, 7.0, 7.5, 8.0 [facility] Protein (U) [Mass/Vol] Negative NEGAT CARMEN, 10 (TRACE), 20 (TRACE) mg/dL [facility] RBC (U) [#/Vol] Negative NEGATIVE mg/dL [facility] Specific gravity (U) [Rel density] 1.006 1.005 - 1.035 [facility] Urobilinogen (U) [Mass/Vol] Normal Normal mg/dL [facility] Appearance (U) Clear Normal Clear [facility] Comment on above: Performed By: #### 2 243-4 #### MARIA E KAPADIA ([id number]) [facility] ([facility] [address] [place] [address] Bilirubin (U) [Mass/Vol] Negative Normal NEGATIVE [facility] Comment on above: Performed By: #### 2 243-4 ###Katy KAPADIA ([id number]) [facility] ([facility] [address] [place], [place] [id number] Color (U) Colorless Normal Light-Yellow , Yellow, Dark-Yellow [facility] Comment on above: Performed By: #### 2 243-4 #### MARIA E KAPADIA ([id number]) [facility] ([facility] [address] [place] [address] Glucose Auto test strip (U) [Mass/Vol] Normal Normal Normal [facility] Comment on above: Performed By: #### 2 243-4 #### MARIA E KAPADIA ([id number]) [facility] ([facility] [address] [place] [address] Ketones (U) [Mass/Vol] Negative Normal NEGATIVE Un [facility] Comment on above: Performed By: #### 2 243-4 #### MARIA E KPAADIA ([id number]) [facility] ([facility] [address] [place] [address] Leukocyte esterase Auto test strip Ql (U) Negative Normal NEGATIVE [facility] Comment on above: Performed By: #### 2 243-4 #### MARIA E KAPADIA ([id number]) [facility] ([facility]) [address] [place], [place] [address] Nitrite Auto test strip Ql (U) Negative Normal NEGATIVE [facility] Comment on above: Performed By: #### 2 243-4 #### MARIA E KAPADIA ([id number]) [facility] ([facility] [address] [place] [address] pH (U) 8.0 [pH] Normal 5.0, 5.5, 6.0, 6.5, 7.0, 7.5, 8.0 [facility] Comment on above: Performed By: #### 2 243-4 #### MARIA E KAPADIA ([id number]) [facility] ([facility] [address] [place] [address] Protein (U) [Mass/Vol] Negative Normal NEGAT CARMEN, 10 (TRACE), 20 (TRACE) [facility] Comment on above: Performed By: #### 2 243-4 #### MARIA E KAPADIA ([id number]) [facility] ([facility] [address] [place] [address] RBC (U) [#/Vol] Negative Normal NEGATIVE [facility] Comment on above: Performed By: #### 2 243-4 #### MARIA E KAPADIA ([id number]) [facility] ([facility] [address] [place] [address] Specific gravity (U) [Rel density] 1.006 Normal 1.005-1.035 [facility] Comment on above: Performed By: #### 2 243-4 #### MARIA E KAPADIA ([id number]) [facility] ([facility] [address] [place] [address] Urobilinogen (U) [Mass/Vol] Normal Normal Normal [facility] Comment on above: Performed By: #### 2 243-4 #### MARIA E KAPADIA ([id number]) [facility] ([facility] [address] [place] [phone] US OB TRANSVAGINALon 025 US OB TRANSVAGINAL [...] evaluation for early dating. View: Sufficient Normal [facility] US OB TRANSVAGINALon 025 US OB [...] evaluation for early dating. View: Sufficient Normal [facility] Choriogonadotropin.beta subu niton 01-09-2025 HCG.beta subunit Qn 1756 m[IU]/mL High <5 [facility] Comment on above: Order Comment: [...] #### 2 243-4 #### MARIA E STEFFI ([id number]) [facility] ([facility] [address] [place] [address] Absolute lymphocyte countOrd ered By: Domo Weaver on 01-06-2025 Lymphocytes Auto (Unsp spec) [#/Vol] 2.66 10*3/uL 0.83-4.51 [facility] Absolute neutrophil countOrd ered By: Domo Weaver on 01-06-2025 Neutrophils (Bld) [#/Vol] 5.5 10*3/uL 2.0-7.7 [facility] Anion gap in Serum or Plasma Ordered By: Domo Weaver on 01-06-2025 Anion gap [Moles/Vol] 13 mmol/L 5-15 [facility] Automated lymphocyte count a s percentage of total leukocytesOrdered By: Domo Weaver on 01-06-2025 Lymphocytes/100 WBC Auto (Unsp spec) 30.2 % 19-41 [facility] BUN/creatinine ratioOrdered By: Domo Weaver on 01-06-2025 Urea nitrogen/Creatinine [Mass ratio] 15.8 mg/mg 10- [facility] Basophil percentageOrdered B y: Domo Weaver on 01-06-2025 Basophils/100 WBC (Bld) 0.7 % 0- [facility] Bilirubin, totalOrdered By: Domo Weaver on 01-06-2025 Bilirubin [Mass/Vol] 0.32 mg/dL 0.00-1.30 [facility] CBC W/Diff, Automatedon 12-28 0-2024 Absolute Lymph 2.66 X10 3/uL Normal 0.83-4.51 [facility] Comment on above: Performed By: #### L 100.0100, L500.4050, L501.6710, L101.9900 ####[facility] [address] [place], [address] Absolute Neut 5.5 X10 3/uL Normal 2.0-7.7 [facility] Comment on above: Performed By: #### L 100.0100, L500.4050, L501.6710, L101.9900 ####[facility] [address] [place], [address] Basophils/100 WBC (Bld) 0.7 % Normal 0-1 [facility] Comment on above: Performed By: #### L 100.0100, L500.4050, L501.6710, L101.9900 ####[facility] [address] [place], [address] Eosinophils/100 WBC (Bld) 1.4 % Normal 0-5 [facility] Comment on above: Performed By: #### L 100.0100, L500.4050, L501.6710, L101.9900 ####[facility] [address] [place], [address] Erythrocyte distribution width (RBC) [Ratio] 12.3 % Normal 11.6-14.6 [facility] Comment on above: Performed By: #### L 100.0100, L500.4050, L501.6710, L101.9900 ####[facility] [address] [place], [address] Hematocrit (Bld) [Volume fraction] 34.3 % Low 37-47 [facility] Comment on above: Performed By: #### L 100.0100, L500.4050, L501.6710, L101.9900 ####[facility] [address] [place], [address] Hemoglobin (Bld) [Mass/Vol] 11.2 g/dL Low 12.0-15.0 [facility] Comment on above: Performed By: #### L 100.0100, L500.4050, L501.6710, L101.9900 ####[facility] [address] [place], [address] IG% 0.300 Normal 0.0-0.9 [facility] Comment on above: Result Comment: IG% - Immature Granulocytes (promyelocytes, myelocytes and metamyelocytes) > 1% indicates that a LEFT SHIFT is Present. Performed By: #### L 100.0100, L500.4050, L501.6710, L101.9900 ####[facility] [address] [place], [address] Lymphocytes/100 WBC (Bld) 30.2 % Normal 19-41 [facility] Comment on above: Performed By: #### L 100.0100, L500.4050, L501.6710, L101.9900 ####[facility] [address] [place], [address] MCH (RBC) [Entitic mass] 29.6 pg Normal 27.0-32.0 [facility] Comment on above: Performed By: #### L 100.0100, L500.4050, L501.6710, L101.9900 ####[facility] [address] [place], [address] MCHC (RBC) [Mass/Vol] 32.7 g/dL Normal 32-36 [facility] Comment on above: Performed By: #### L 100.0100, L500.4050, L501.6710, L101.9900 ####[facility] [address] [place], [address] MCV (RBC) [Entitic vol] 90.7 fL Normal 81-99 [facility] Comment on above: Performed By: #### L 100.0100, L500.4050, L501.6710, L101.9900 ####[facility] [address] [place], [address] Monocytes/100 WBC (Bld) 4.7 % Normal 0-10 [facility] Comment on above: Performed By: #### L 100.0100, L500.4050, L501.6710, L101.9900 ####[facility] [address] [place], [address] Neutrophils/100 WBC (Bld) 62.7 % Normal 47-70 [facility] Comment on above: Performed By: #### L 100.0100, L500.4050, L501.6710, L101.9900 ####[facility] [address] [place], [address] Nucleated RBC (Bld) [#/Vol] 0 10*3/uL Normal 0-5 [facility] Comment on above: Performed By: #### L 100.0100, L500.4050, L501.6710, L101.9900 ####[facility] [address] [place], [address] Platelet mean volume (Bld) [Entitic vol] 10.0 fL Normal 6.2-12.0 [facility] Comment on above: Performed By: #### L 100.0100, L500.4050, L501.6710, L101.9900 ####[facility] [address] [place], [address] Platelets (Bld) [#/Vol] 358 10*3/uL Normal 150-450 [facility] Comment on above: Performed By: #### L 100.0100, L500.4050, L501.6710, L101.9900 ####[facility] [address] [place], [address] RBC (Bld) [#/Vol] 3.78 10*6/uL Low 4.2-5.4 [facility] Comment on above: Performed By: #### L 100.0100, L500.4050, L501.6710, L101.9900 ####[facility] [address] [place], [address] RDW SD 40.6 fl Normal 35.1-43.9 [facility] Comment on above: Performed By: #### L 100.0100, L500.4050, L501.6710, L101.9900 ####[facility] [address] [place], [address] WBC (Bld) [#/Vol] 8.8 10*3/uL Normal 4.4-11.0 [facility] Comment on above: Performed By: #### L 100.0100, L500.4050, L501.6710, L101.9900 ####[facility] [address] [place], [address] CRPon 01-06-2025 C-REACTIVE PROT 5.97 mg/L High 0.0-3.0 [facility] Comment on above: Performed By: #### L 100.0100, L500.4050, L501.6710, L101.9900 ####[facility] [address] [place], [address] Carbon dioxide, total [Moles /volume] in Central venous bloodOrdered By: Domo Weaver on 01-06-2025 CO2 [Moles/Vol] 21.3 mmol/L 21.0-32.0 [facility] Chloride assayOrdered By: Ra clarita Weaver on 01-06-2025 Chloride [Moles/Vol] 104 mmol/L 98-108 [facility] Comprehensive Metabolic Prof ilon 01-06-2025 Albumin [Mass/Vol] 4.2 g/dL Normal 3.5-5.0 [facility] Comment on above: Performed By: #### L 100.0100, L500.4050, L501.6710, L101.9900 ####[facility] [address] [place], [address] Albumin/Globulin [Mass ratio] 1.4 {ratio} Normal 0.9-2.4 [facility] Comment on above: Performed By: #### L 100.0100, L500.4050, L501.6710, L101.9900 ####[facility] [address] [place], [address] ALK PHOS 57 U/L Normal 35-104 [facility] Comment on above: Performed By: #### L 100.0100, L500.4050, L501.6710, L101.9900 ####[facility] [address] [place], [address] ALT [Catalytic activity/Vol] 15 U/L Normal <=34 [facility] Comment on above: Performed By: #### L 100.0100, L500.4050, L501.6710, L101.9900 ####[facility] [address] [place], [address] AST [Catalytic activity/Vol] 18 U/L Normal <=31 [facility] Comment on above: Performed By: #### L 100.0100, L500.4050, L501.6710, L101.9900 ####[facility] [address] [place], [address] Bilirubin [Mass/Vol] 0.32 mg/dL Normal 0.00-1.30 [facility] Comment on above: Performed By: #### L 100.0100, L500.4050, L501.6710, L101.9900 ####[facility] [address] [place], [address] BUN/CRE 15.8 RATIO Normal 10-20 [facility] Comment on above: Performed By: #### L 100.0100, L500.4050, L501.6710, L101.9900 ####[facility] [address] [place], [address] Calcium [Mass/Vol] 9.2 mg/dL Normal 7.6-11.0 [facility] Comment on above: Performed By: #### L 100.0100, L500.4050, L501.6710, L101.9900 ####[facility] [address] [place], [address] Chloride [Moles/Vol] 104 mmol/L Normal 98-108 [facility] Comment on above: Performed By: #### L 100.0100, L500.4050, L501.6710, L101.9900 ####[facility] [address] [place], [address] CO2 [Moles/Vol] 21.3 mmol/L Normal 21.0-32.0 [facility] Comment on above: Performed By: #### L 100.0100, L500.4050, L501.6710, L101.9900 ####[facility] [address] [place], [address] Creatinine [Mass/Vol] 0.69 mg/dL Low 0.70-1.20 [facility] Comment on above: Performed By: #### L 100.0100, L500.4050, L501.6710, L101.9900 ####[facility] [address] [place], [address] GAP 13 Normal 5-15 [facility] Comment on above: Performed By: #### L 100.0100, L500.4050, L501.6710, L101.9900 ####[facility] [address] [place], [address] GFR/1.73 sq M.predicted among non-blacks MDRD (S/P/Bld) [Vol rate/Area] 120 mL/min/{1.73_m2} Normal >60 [facility] Comment on above: Result Comment: mL/m in/1.73m2 CKD-EPI Creatinine Equation (2020) Performed By: #### L 100.0100, L500.4050, L501.6710, L101.9900 ####[facility] [address] [place], [address] Globulin (S) [Mass/Vol] 3.0 g/dL Normal 2.2-4.2 [facility] Comment on above: Performed By: #### L 100.0100, L500.4050, L501.6710, L101.9900 ####[facility] [address] [place], [address] Glucose [Mass/Vol] 121 mg/dL High 70-99 [facility] Comment on above: Performed By: #### L 100.0100, L500.4050, L501.6710, L101.9900 ####[facility] [address] [place], [address] Potassium [Moles/Vol] 3.7 mmol/L Normal 3.3-5.1 [facility] Comment on above: Performed By: #### L 100.0100, L500.4050, L501.6710, L101.9900 ####[facility] [address] [place], [address] Sodium [Moles/Vol] 138 mmol/L Normal 133-145 [facility] Comment on above: Performed By: #### L 100.0100, L500.4050, L501.6710, L101.9900 ####[facility] [address] [place], [address] T PROT 7.2 g/dL Normal 5.9-8.4 [facility] Comment on above: Performed By: #### L 100.0100, L500.4050, L501.6710, L101.9900 ####[facility] [address] [place], [address] Urea nitrogen [Mass/Vol] 11 mg/dL Normal 4-19 [facility] Comment on above: Performed By: #### L 100.0100, L500.4050, L501.6710, L101.9900 ####[facility] [address] [place], [address] Eosinophil percentageOrdered By: Domo Weaver on 01-06-2025 Eosinophils/100 WBC (Bld) 1.4 % 0-5 [facility] Erythrocyte Sed Rateon 01-06 SED RATE 8 mm/hr Normal 0-30 [facility] Comment on above: Performed By: #### L 100.0100, L500.4050, L501.6710, L101.9900 ####[facility] [address] [place], [address] Erythrocyte distribution wid th ratioOrdered By: Domo Weaver on 01-06-2025 Erythrocyte distribution width (RBC) [Ratio] 12.3 % 11.6-14.6 [facility] Erythrocyte distribution wid th standard deviationOrdered By: Domo Weaver on 01-06-2025 Erythrocyte distribution width (RBC) [Ratio] 40.6 fl 35.1-43.9 [facility] Erythrocyte sedimentation ra teOrdered By: Domo Weaver on 01-06-2025 ESR (Bld) [Velocity] 8 mm/h 0-30 [facility] Glomerular filtration rate ( GFR) estimation/1.73 sq m using serum, plasma, or whole bOrdered By: Domo Weaver on 01-06-2025 GFR/1.73 sq M.predicted among non-blacks MDRD (S/P/Bld) [Vol rate/Area] 120 mL/min/{1.73_m2} >60 [facility] Comment on above: mL/min/1.73m2 CKD-EP I Creatinine Equation (2020) Hematocrit Auto (Bld) [Volum e fraction]Ordered By: Domo Weaver on 01-06-2025 Hematocrit (Bld) [Volume fraction] 34.3 % Low 37-47 [facility] Hemoglobin measurementOrdere d By: Doom Weaver on 01-06-2025 Hemoglobin (Bld) [Mass/Vol] 11.2 g/dL Low 12.0-15.0 [facility] Immature granulocytes/100 WB C Auto (Bld)Ordered By: Domo Weaver on 01-06-2025 Immature granulocytes/100 WBC (Bld) 0.300 % 0.0-0.9 [facility] Comment on above: IG% - Immature Granu locytes (promyelocytes, myelocytes and metamyelocytes) > 1% indicates that a LEFT SHIFT is Present. Laboratory - Chemistry and C hemistry - challengeOrdered By: Domo Weaver on 01-06-2025 AST [Catalytic activity/Vol] 18 U/L <32 [facility] MCV (mean corpuscular volume ) determinationOrdered By: Domo Weaver on 01-06-2025 MCV (RBC) [Entitic vol] 90.7 fL 81-99 [facility] Mean corpuscular hemoglobin (MCH) determinationOrdered By: Domo Weaver on 01-06-2025 MCH (RBC) [Entitic mass] 29.6 pg 27.0-32.0 [facility] Mean corpuscular hemoglobin concentration (MCHC) determinationOrdered By: Domo Weaver on 01-06-2025 MCHC (RBC) [Mass/Vol] 32.7 g/dL 32-36 [facility] Mean platelet volume determi nationOrdered By: Domo Weaver on 01-06-2025 Platelet mean volume (Bld) [Entitic vol] 10.0 fL 6.2-12.0 [facility] Monocyte percentageOrdered B y: Domo Weaver on 01-06-2025 Monocytes/100 WBC (Bld) 4.7 % 0-10 [facility] Neutrophil percentageOrdered By: Domo Weaver on 01-06-2025 Neutrophils/100 WBC (Bld) 62.7 % 47-70 [facility] Nucleated red blood cell per centageOrdered By: Domo Weaver on 01-06-2025 Nucleated RBC/100 WBC (Bld) [Ratio] 0 % 0-5 [facility] Platelet countOrdered By: Ra clarita Weaver on 01-06-2025 Platelets (Bld) [#/Vol] 358 10*3/uL 150-450 [facility] Potassium measurement (mass/ volume)Ordered By: Domo Weaver on 01-06-2025 Potassium (Unsp spec) [Mass/Vol] 3.7 mmol/L 3.3-5.1 [facility] RBC Auto (Bld) [#/Vol]Ordere d By: Domo Weaver on 01-06-2025 RBC (Bld) [#/Vol] 3.78 10*6/uL Low 4.2-5.4 [facility] Serum creatinine measurement (mass/volume)Ordered By: Domo Weaver on 01-06-2025 Creatinine [Mass/Vol] 0.69 mg/dL Low 0.70-1.20 [facility] Serum globulin measurementOr dered By: Domo Weaver on 01-06-2025 Globulin (S) [Mass/Vol] 3.0 g/dL 2.2-4.2 [facility] Serum glucose measurement (m ass/volume)Ordered By: Domo Weaver on 01-06-2025 Glucose [Mass/Vol] 121 mg/dL High 70-99 [facility] Serum or plasma C reactive p rotein measurement (mass/volume)Ordered By: Domo Weaver on 01-06-2025 CRP [Mass/Vol] 5.97 mg/L High 0.0-3.0 [facility] Serum or plasma alanine parisi otransferase (ALT) measurementOrdered By: Domo Weaver on 01-06-2025 ALT [Catalytic activity/Vol] 15 U/L <35 [facility] Serum or plasma albumin arielle urement (mass/volume)Ordered By: Domo Weaver on 01-06-2025 Albumin [Mass/Vol] 4.2 g/dL 3.5-5.0 [facility] Serum or plasma albumin/glob ulin mass ratioOrdered By: Domo Weaver on 01-06-2025 Albumin/Globulin [Mass ratio] 1.4 {ratio} 0.9-2.4 [facility] Serum or plasma alkaline marcelo sphatase measurementOrdered By: Domo Weaver on 01-06-2025 ALP [Catalytic activity/Vol] 57 U/L 35-104 [facility] Serum or plasma calcium arielle urement (mass/volume)Ordered By: Domo Weaver on 01-06-2025 Calcium [Mass/Vol] 9.2 mg/dL 7.6-11.0 [facility] Serum or plasma urea nitroge n measurement (mass/volume)Ordered By: Domo Weaver on 01-06-2025 Urea nitrogen [Mass/Vol] 11 mg/dL 4-19 [facility] Sodium levelOrdered By: Alisa Michelle on 01-06-2025 Sodium [Moles/Vol] 138 mmol/L 133-145 [facility] Total proteinOrdered By: Lai Weaver on 01-06-2025 Protein [Mass/Vol] 7.2 g/dL 5.9-8.4 [facility] White blood cell (WBC) count Ordered By: Domo Weaver on 01-06-2025 WBC (Bld) [#/Vol] 8.8 10*3/uL 4.4-11.0 [facility] Choriogonadotropin.beta subu niton 01-05-2025 HCG.beta subunit Qn [...] #### 2 243-4 #### MARIA E STEFFI ([id number]) [facility] [place] [place] [address] [place] [address] Gastroenterology Visit Repor ton 01-01-2025 Gastroenterology Visit Report [facility] [address] [place] [address] OFFICE VISIT Date of Service: 01/01/25 MR#: [id number] Acct: [id number] Name: MARIXA AMOS Rep #: [id number] : 1995 Provider: Domo Weaver DO Age/Sex: 29/F [place] [facility] Status: Signed Intake Vital Signs 12/09/23 13:23 07/12/24 08:32 Height 5 ft 3 in 5 ft 3 in Intake Visit Reasons: 1 Y FU Allergies No Known Allergies Allergy (Verified 07/12/24 08:25) Medications ???Medication ???Instructions ???Recorded ???Confirmed ???Type prenat.vits,mario,min-iron -folic 1 tab PO DAILY 10/22/21 01/01/25 H istory ustekinumab 90 mg/mL subcutaneous 90 mg subcut Q8W #1 mL 07/07/24 0 01/01/25 [facility] cholecalciferol (vitamin D3) 62.5 mcg PO 07/12/24 01/01/25 History mcg (2,500 unit) capsule omega 5-ykb-bjo-fish oil 300 1 cap PO QDAY 07/12/24 [...] story progesterone oil IM 01/01/25 01/01/25 History [facility] Medical History (Updated 07/12/24 @ 10:30 by Jesika Farrar NP, DIVIDER OPERATOR-C) Endometriosis Low iron Anemia Latent tuberculosis Ulcerative [...] SABRINA, GAME? (more content not included)... 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 Holder Depth: 7 cm Curve: anterior [...] Gavino Tristan 12/26/24 11:35 AM [facility] Work Phone: Progesteroneon 12-26-2024 Progesterone [Mass/Vol] 34.6 ng/mL [facility] Comment on above: Order Comment: REF V ALUES FOLLICULAR PHASE 20-144 MID CYCLE 64-357 LUTEAL PHASE 56-214 POSTMENOPAUSE < 32 PREPUBERTY < 20 FEMALE 10-18Y 8-110 MALE 10-18Y < 20 ADULT MALE < 40 Performed By: #### 2 243-4 #### MARIA E STEFFI ([id number]) [facility] [place] [place] [address] [place] [address] LIPID PANEL, STANDARDon 11-29 Cholesterol [Mass/Vol] 228 mg/dL High <200 [facility] Comment on above: Order Comment: FASTI NG:YES FASTING: YES Performed By: #### 1 7135, 7600 #### [facility] [address], [address] [place] [address] Claims Service Representative: Cody Spencer MD Cholesterol in HDL [Mass/Vol] 68 mg/dL Normal > OR = 50 [facility] Comment on above: Order Comment: FASTI NG:YES FASTING: YES Performed By: #### 1 3606, 7600 #### [facility] [address], [address] [place] [address] Claims Service Representative: Cody Spencer MD Cholesterol in LDL [Mass/Vol] [...] Luis Miguel GALLARDO et al. DESIRE. 2013;310(19): 2507-8378 (http://education.[employer]/faq/LOB830) Performed By: #### 1 0299, 7600 #### [facility] [address], [address] [place] [address] Claims Service Representative: Cody Spencer MD Cholesterol.total/Chol esterol in HDL [Mass ratio] 3.4 {ratio} Normal <5.0 [facility] Comment on above: Order Comment: FASTI NG:YES FASTING: YES Performed By: #### 1 9078, 7600 #### [facility] [address], [address] [place] [address] Claims Service Representative: Cody Spencer MD NON HDL CHOLESTEROL 160 mg/dL (calc) High <130 [facility] Comment on above: Order Comment: FASTI NG:YES FASTING: YES Result Comment: For patients with diabetes plus 1 major ASCVD risk factor, treating to a non-HDL-C goal of <100 mg/dL (LDL-C of <70 mg/dL) is considered a therapeutic option. Performed By: #### 1 7306, 7600 #### [facility] [address], [address] [place] [address] Claims Service Representative: Cody Spencer MD Triglyceride [Mass/Vol] 190 mg/dL High <150 [facility] Comment on above: Order Comment: FASTI NG:YES FASTING: YES Performed By: #### 1 7306, 7600 #### [facility] [address], [address] [place] [address] Claims Service Representative: Cody Spencer MD VITAMIN D,25-OH,TOTAL,IAon 0 12-21-2024 [...] D, (D2,D3), LC/MS/MS is recommended: order code 11484 (patients >2yrs). See Note 1 Note 1 For additional information, please refer to http://education.[employer].Amanda Huff [employer]/faq/MEN169 (This link is being provided for informational/ educational purposes only.) Performed By: #### 1 7276, 7140 #### [facility] [address], [address] [place] [address] Claims Service Representative: Cody Spencer MD Destr of lesionon 12-20-2024 Complexity: simple Destruction method: cryotherapy Informed consent: discussed and consent obtained Debridement: hyperkeratotic portion removed with sharp debridement Lesion destroyed using liquid nitrogen: Yes Cryotherapy cycles: 3 Outcome: patient tolerated procedure well with no complications Post-procedure details: wound care instructions given [facility] Work Phone: [facility] Work Phone: Progesteroneon 12-20-2024 Progesterone [Mass/Vol] 0.2 ng/mL Normal [facility] Comment on above: Order Comment: REF V ALUES FOLLICULAR PHASE 20-144 MID CYCLE 64-357 LUTEAL PHASE 56-214 POSTMENOPAUSE < 32 PREPUBERTY < 20 FEMALE 10-18Y 8-110 MALE 10-18Y < 20 ADULT MALE < 40 Performed By: #### 2 243-4 #### MARIA E KAPADIA ([id number]) [facility] [place] [address] [place] [address] Estradiolon 12-15-2024 E2 [Mass/Vol] 417 pg/mL [facility] Comment on above: Order Comment: REF V ALUES FOLLICULAR PHASE 20-144 MID CYCLE 64-357 LUTEAL PHASE 56-214 POSTMENOPAUSE < 32 PREPUBERTY < 20 FEMALE 10-18Y 8-110 MALE 10-18Y < 20 ADULT MALE < 40 Performed By: #### 2 243-4 #### MARIA E KAPADIA ([id number]) [facility] [place] [address] [place] [address] Progesteroneon 12-15-2024 Progesterone [Mass/Vol] 0.6 ng/mL [facility] Comment on above: Order Comment: REF V ALUES FOLLICULAR PHASE 20-144 MID CYCLE 64-357 LUTEAL PHASE 56-214 POSTMENOPAUSE < 32 PREPUBERTY < 20 FEMALE 10-18Y 8-110 MALE 10-18Y < 20 ADULT MALE < 40 Performed By: #### 2 243-4 #### MARIA E KAPADIA ([id number]) [facility] [place] [place] [address] [place] [address] [facility] ENDOMETRIAL LINING CH ECKon 12-15-2024 [facility] ENDOMETRIAL LINING CHECK Trilaminar appearance to the endometrium is noted. Normal [facility] ANTI-MULLERIAN HORMONE ([facility]) , FEMALEon 11-25-2024 ANTI-MULLERIAN HORMONE ([facility]), FEMALE 1.90 ng/mL Normal 0.69-13.39 [facility] Comment on above: Performed By: #### 1 1363, 84669, 02703, 8472, 16319, 498 #### [facility] [address] [place] [address] Claims Service Representative: Cody Spencer MD #### [id number] #### [facility]/[address] [place], [place] Claims Service Representative: Jeremiah Holder M.D.,PhD #### [phone] #### [facility], [address] [place] [address] Claims Service Representative: Bianka Brenner MD,PhD,HAMLET CHLAMYDIA/N. GONORRHOEAE RNA , TMA, UROGENITALon 11-25-2024 CHLAMYDIA TRACHOMATIS RNA, TMA, UROGENITAL Not detected Normal NOT DETECTED [facility] Comment on above: Performed By: #### 1 1363, 85548, 83637, 8472, 67544, 498 #### [facility] [address], [address] [place] [address] Claims Service Representative: Cody Spencer MD #### [id number] #### [facility]/[place] [id number] [facility] [place], [place] Claims Service Representative: Jeremiah Holder M.D.,PhD #### [phone] #### [facility], [address] [place] [address] Claims Service Representative: Bianka Brenner MD,PhD,HAMLET COMMENT Normal [facility] Comment on above: Result Comment: The analytical performance characteristics of this assay, when used to test SurePath(TM) specimens have been determined by [employer]. The modifications have not been cleared or approved by the FDA. This assay has been validated pursuant to the CLIA regulations and is used for clinical purposes. For additional information, please refer to https://education.[employer]/faq/HVU442 (This link is being provided for information/ educational purposes only.) Performed By: #### 1 1363, 54742, 13661, 8472, 45989, 498 #### [facility] [address], [address] [place], [place] [address] Claims Service Representative: Cody Spencer MD #### [phone] #### [facility] [address] [place], [place] Claims Service Representative: Jeremiah Holder M.D.,PhD #### [phone] #### [facility], [address] [place] [id number] Claims Service Representative: Bianka Brenner MD,PhD,HAMLET NEISSERIA GONORRHOEAE RNA, TMA, UROGENITAL Not detected Normal NOT DETECTED [facility] Comment on above: Performed By: #### 1 1363, 93363, 37741, 8472, 44774, 498 #### [facility] of [facility] [address], [address] [place] [address] Claims Service Representative: Cody Spencer MD #### [phone] #### [facility] [address] [place] Claims Service Representative: Jeremiah Holder M.D.,PhD #### [phone] #### [facility], [address] [place], [place] Claims Service Representative: Bianka Brenner MD,PhD,HAMLET HEMOGLOBIN A1c WITH eAGon eAG (mmol/L) 6.0 mmol/L Normal [facility] Comment on above: Performed By: #### 1 1363, 49390, 69329, 8472, 08631, 498 #### [facility] of [facility] [address], [address] [place] [address] Claims Service Representative: Cody Spencer MD #### [phone] #### [facility] [address] [place] Claims Service Representative: Jeremiah Holder M.D.,PhD #### [phone] #### [facility], [address] [place] [address] Claims Service Representative: Bianka Brenner MD,PhD,HAMLET HEMOGLOBIN A1c 5.4 % [...] diagnosis of diabetes in children. According to [place] [employer] Association (ADA) guidelines, hemoglobin A1c <7.0% represents optimal control in non- diabetic patients. Different metrics may apply to specific patient populations. Standards of Medical Care in Diabetes(ADA). Performed By: #### 1 1363, 64182, 03451, 8472, 49599, 498 #### [facility] [address], [address] [place] [address] Claims Service Representative: Cody Spencer MD #### [phone] #### [facility] [address] [place], [place] Claims Service Representative: Jeremiah Holder M.D.,PhD #### [phone] #### [facility], [address] [place] [address] Claims Service Representative: Bianka Brenner MD,PhD,HAMLET Magnesium [Mass/Vol] 108 mg/dL Normal [facility] Comment on above: Performed By: #### 1 1363, 71638, 61146, 8472, 48076, 498 #### [facility] [address], [address] [place] [address] Claims Service Representative: Cody Spencer MD #### [phone] #### [facility] [address] [facility] [place] [address] Claims Service Representative: Jeremiah Holder M.D.,PhD #### [phone] #### [facility], [address] [place] [address] Claims Service Representative: Bianka Brenner MD,PhD,HAMLET HEPATITIS B SURFACE ANTIGEN W/REFL CONFIRMon 11-25-2024 HEPATITIS B SURFACE ANTIGEN Non-Reactive Normal NON-REACTIVE [facility] Comment on above: Result Comment: For additional information, please refer to http://[facility].[employer]/faq/XTD888 (This link is being provided for informational/ educational purposes only.) Performed By: #### 1 1363, 52548, 07884, 8472, 98376, 498 #### [facility] [address], [address] [place] [phone] Claims Service Representative: Cody Spencer MD #### [phone] #### [facility] [address] [place], [place] Claims Service Representative: Jeremiah Holder M.D.,PhD #### [phone] #### [facility], [address] [place], [place] Claims Service Representative: Bianka Brenner MD,PhD,HAMLET HEPATITIS C AB W/REFL TO HCV RNA, QN, PCRon 11-25-2024 HEPATITIS C ANTIBODY Non-Reactive Normal NON-REACTIVE [facility] Comment on above: Result Comment: HCV antibody was non-reactive. There is no laboratory evidence of HCV infection. In most cases, no further action is required. However, if recent HCV exposure is suspected, a test for HCV RNA (test code 52924) is suggested. For additional information please refer to http://[facility].[employer]/faq/GYJ53z8 (This link is being provided for informational/ educational purposes only.) Performed By: #### 1 1363, 52233, 06030, 8472, 57103, 498 #### [facility] [address], [address] [place] [phone] Claims Service Representative: Cody Spencer MD #### [phone] #### [facility] [address] [address] [place], [place] Claims Service Representative: Jeremiah Holder M.D.,PhD #### [phone] #### [facility], [address] [place], [place] Claims Service Representative: Bianka Brenner MD,PhD,HAMLET HIV 1/2 ANTIGEN/ANTIBODY,FOU RTH [...] purpose. For additional information please refer to http://education.[employer].Amanda Huff [employer]/faq/FFG618 (This link is being provided for informational/ educational purposes only.) The performance of this assay has not been clinically validated in patients less than 2 years old. Performed By: #### 1 1363, 23739, 26222, 8472, 93935, 498 #### [facility] [address] [facility], [address] [place] [address] Claims Service Representative: Cody Spencer MD #### [phone] #### [facility] [address] [place], [place] Claims Service Representative: Jeremiah Holder M.D.,PhD #### [phone] #### [facility], [address] [place] [address] Claims Service Representative: Bianka Brenner MD,PhD,HAMLET SYPHILIS ANTIBODY CASCADING REFLEXon [...] is high. Performed By: #### 1 1363, 17750, 32402, 8472, 59308, 498 #### [facility] [address], [address] [place] [phone] Claims Service Representative: Cody Spencer MD #### [phone] #### [facility] [address] [place], [place] Claims Service Representative: Jeremiah Holder M.D.,PhD #### [phone] #### [facility], [address] [place] [address] Claims Service Representative: Bianka Brenner MD,PhD,HAMLET TSH W/REFLEX TO FT4on 2024 TSH W/REFLEX TO FT4 0.97 mIU/L Normal [facility] Comment on above: Result Comment: Refe rence Range > or = 20 Years 0.40-4.50 Ranges First trimester 0.26-2.66 Second trimester 0.55-2.73 Third trimester 0.43-2.91 Performed By: #### 1 1363, 43233, 47749, 8472, 88337, 498 #### [facility] [address], [address] [place] [address] Claims Service Representative: Cody Spencer MD #### [phone] #### [facility]/[place] [id number] [facility] [address] [place] Claims Service Representative: Jeremiah Holder M.D.,PhD #### [phone] #### [facility], [address] [place] [address] Claims Service Representative: Bianka Brnener MD,PhD,HAMLET No Panel Informationon 11-22 Henrietta Herndon MD 11/22/2024 10:18 AM Egg Retrieval Date/Time: 11/22/2024 10:15 AM Performed by: Henrietta Herndon MD Authorized by: Katelyn Benitez [facility] Consent: Consent obtained: Verbal and written [...] diagnosis: Female infertility Post op diagnosis: Same 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: Leslie IV Fluids: 700 cc EBL: 5 cc UOP: Not recorded Specimen: Oocytes Complications: None Number of Oocytes right ovary: 14 Ovarian acc ss (right): Easy Number of Oocytes left ovary: 9 Ovarian access (left): Easy Endometrial thickness: TL Needle type: Single Additional notes: I was present and supervised the entire procedure. Henrietta Herndon 11/22/24 10:16 AM [facility] R[facility] Work Phone: Blood type and Indirect anti body screen panel (Bld)on 11-21-2024 ABO group Nom (Bld) B Normal [facility] Comment on above: Performed By: #### 3 4532-2 ####MARIA E KAPADIA ([id number])[facility] (UBB)[address] [place] [address] Blood group antibody screen Ql Negative [facility] Comment on above: Performed By: #### 3 5432-2 ####MARIA E KAPADIA ([id number])[facility] (UBB)[address] [place] [address] US D Ag Ql (Bld) Positive [facility] Comment on above: Performed By: #### 3 4532-2 ####MARIA E KAPADIA ([id number])[facility] (UBB)[address] [place] [address] Lutropinon 11-21-2024 Lutropin Qn 29.1 IU/L [facility] Comment on above: Result Comment: LH R eference Values Follicular Phase 1.5-10.0 Mid-Cycle 13.0-72.0 Luteal Phase 0.5-13.0 Menopause 15.0-65.0 Pre-puberty 0- 3.0 Children 0- 6.0 Adult Male 1.0- 9.0 Luteinizing Hormone is performed using the [employer]head Access Immunoassay. LH testing is performed using a different test methodology at [facility] than other [facility]. Direct result comparison should only be made within the same method. Performed By: #### 2 243-4 #### MARIA E KAPADIA ([id number]) [facility] [place] [address] [place] [address] Progesteroneon 11-21-2024 Progesterone [Mass/Vol] 5.4 ng/mL [facility] Comment on above: Order Comment: REF V ALUES FOLLICULAR PHASE 20-144 MID CYCLE 64-357 LUTEAL PHASE 56-214 POSTMENOPAUSE < 32 PREPUBERTY < 20 FEMALE 10-18Y 8-110 MALE 10-18Y < 20 ADULT MALE < 40 Performed By: #### 2 243-4 #### MARIA E KAPADIA ([id number]) [facility] ([facility] [address] [place] [address] Estradiolon 11-20-2024 E2 [Mass/Vol] 5336 pg/mL [facility] Comment on above: Order Comment: REF V ALUES FOLLICULAR PHASE 20-144 MID CYCLE 64-357 LUTEAL PHASE 56-214 POSTMENOPAUSE < 32 PREPUBERTY < 20 FEMALE 10-18Y 8-110 MALE 10-18Y < 20 ADULT MALE < 40 Performed By: #### 2 243-4 #### MARIA E KAPADIA ([id number]) [facility] ([facility] [address] [place] [address] Follicle Diameter USon 11-20 Follicle scan perfor med with follicle measurements in report. Trilaminar appearance to the endometrium is noted. Free fluid is noted in the cul de sac. RIS SECTRA ONLY [facility] Work Phone: Radiology Study observation (narrative) [facility] Work Phone: Progesteroneon 11-20-2024 Progesterone [Mass/Vol] 1.8 ng/mL Normal [facility] Comment on above: Order Comment: REF V ALUES FOLLICULAR PHASE 20-144 MID CYCLE 64-357 LUTEAL PHASE 56-214 POSTMENOPAUSE < 32 PREPUBERTY < 20 FEMALE 10-18Y 8-110 MALE 10-18Y < 20 ADULT MALE < 40 Performed By: #### 2 243-4 #### MARIA E KAPADIA ([id number]) [facility] ([facility] [address] [place] [address] [facility] US PELVIS LIMITED FOLLIC LES-FOLLICLE STUDIES PERFORMEDon 11-20-2024 [facility] US PELVIS LIMITED FOLLICLES-FOLLICLE STUDIES PERFORMED Follicle scan performed with follicle measurements in report. Trilaminar appearance to the endometrium is noted. Free fluid is noted in the cul de sac. Normal [facility] Estradiolon 11-18-2024 E2 [Mass/Vol] 2969 pg/mL Normal [facility] Comment on above: Order Comment: REF V ALUES FOLLICULAR PHASE 20-144 MID CYCLE 64-357 LUTEAL PHASE 56-214 POSTMENOPAUSE < 32 PREPUBERTY < 20 FEMALE 10-18Y 8-110 MALE 10-18Y < 20 ADULT MALE < 40 Performed By: #### 2 243-4 #### MARIA E KAPADIA ([id number]) [facility] ([facility] [address] [place] [address] Follicle Diameter USon 11-18 Follicle scan perfor med with follicle measurements in report. RIS SECTRA ONLY [facility] Work Phone: Radiology Study observation (narrative) [facility] Work Phone: Progesteroneon 11-18-2024 Progesterone [Mass/Vol] 0.9 ng/mL Normal [facility] Comment on above: Order Comment: REF V ALUES FOLLICULAR PHASE 20-144 MID CYCLE 64-357 LUTEAL PHASE 56-214 POSTMENOPAUSE < 32 PREPUBERTY < 20 FEMALE 10-18Y 8-110 MALE 10-18Y < 20 ADULT MALE < 40 Performed By: #### 2 243-4 #### MARIA E KAPADIA ([id number]) [facility] ([facility] [address] [place] [address] TERRENCE US PELVIS LIMITED FOLLIC LES-FOLLICLE STUDIES PERFORMEDon 11-18-2024 TERRENCE US PELVIS LIMITED FOLLICLES-FOLLICLE STUDIES PERFORMED Follicle scan performed with follicle measurements in report. Normal [facility] Estradiolon 11-16-2024 E2 [Mass/Vol] 1058 pg/mL Normal [facility] Comment on above: Order Comment: REF V ALUES FOLLICULAR PHASE 20-144 MID CYCLE 64-357 LUTEAL PHASE 56-214 POSTMENOPAUSE < 32 PREPUBERTY < 20 FEMALE 10-18Y 8-110 MALE 10-18Y < 20 ADULT MALE < 40 Performed By: #### 2 243-4 #### MARIA E KAPADIA ([id number]) [facility] ([facility] [address] [place] [phone] Follicle Diameter USon 11-16 Follicle scan perfor med with follicle measurements in report. Trilaminar appearance to the endometrium is noted. RIS SECTRA ONLY [facility] Work Phone: Radiology Study observation (narrative) [facility] Work Phone: TERRENCE US PELVIS LIMITED FOLLIC LES-FOLLICLE STUDIES PERFORMEDon 11-16-2024 [facility]ERR[facility] US PELVIS LIMITED FOLLICLES-FOLLICLE STUDIES PERFORMED Follicle scan performed with follicle measurements in report. Trilaminar appearance to the endometrium is noted. Normal [facility] Estradiolon 11-14-2024 E2 [Mass/Vol] 488 pg/mL Normal [facility] Comment on above: Order Comment: REF V ALUES FOLLICULAR PHASE 20-144 MID CYCLE 64-357 LUTEAL PHASE 56-214 POSTMENOPAUSE < 32 PREPUBERTY < 20 FEMALE 10-18Y 8-110 MALE 10-18Y < 20 ADULT MALE < 40 Performed By: #### 2 243-4 #### MARIA E KAPADIA ([id number]) [facility] ([facility] [address] [place] [address] Follicle Diameter USon 11-14 Follicle scan perfor [facility] with follicle measurements in report. Trilaminar appearance to the endometrium is not noted. Free fluid is noted in the cul de sac. RIS SECTRA ONLY [facility] Work Phone: Radiology Study observation (narrative) [facility] Work Phone: TERRENCE US PELVIS LIMITED FOLLIC LES-FOLLICLE STUDIES PERFORMEDon 11-14-2024 TERRENCE US PELVIS LIMITED FOLLICLES-FOLLICLE STUDIES PERFORMED Follicle scan performed with follicle measurements in report. Trilaminar appearance to the endometrium is not noted. Free fluid is noted in the cul de sac. Normal [facility] CBC panel Auto (Bld)on 11-08 Erythrocyte distribution width (RBC) [Ratio] 12.0 % Normal 11.5-14.5 [facility] Comment on above: Performed By: #### 2 243-4 #### MARIA E KAPADIA ([id number]) [facility] ([facility] [address] [place] [phone] Hematocrit (Bld) [Volume fraction] 35.3 % Low 36.0-46.0 [facility] Comment on above: Performed By: #### 2 243-4 #### MARIA E KAPADIA ([id number]) [facility] ([facility] [address] [place] [phone] Hemoglobin (Bld) [Mass/Vol] 11.4 g/dL Low 12.0-16.0 [facility] Comment on above: Performed By: #### 2 243-4 #### MARIA E KAPADIA ([id number]) [facility] ([facility] [address] [place] [phone] MCH (RBC) [Entitic mass] 29.3 pg Normal 26.0-34.0 [facility] Comment on above: Performed By: #### 2 243-4 #### MARIA E KAPADIA ([id number]) [facility] ([facility] [address] [place] [address] MCHC (RBC) [Mass/Vol] 32.3 g/dL Normal 32.0-36.0 [facility] Comment on above: Performed By: #### 2 243-4 #### MARIA E KAPADIA ([id number]) [facility] ([facility] [address] [place] [address] MCV (RBC) [Entitic vol] 91 fL Normal 80-100 [facility] Comment on above: Performed By: #### 2 243-4 #### MARIA E KAPADIA ([id number]) [facility] ([facility] [address] [place] [address] Nucleated RBC/100 WBC (Bld) [Ratio] 0.0 /100 WBCs Normal 0.0-0.0 [facility] Comment on above: Performed By: #### 2 243-4 #### MARIA E KAPADIA ([id number]) [facility] ([facility] [address] [place] [address] Platelets (Bld) [#/Vol] 326 x10*3/uL Normal 150-450 [facility] Comment on above: Performed By: #### 2 243-4 #### MARIA E KAPADIA ([id number]) [facility] ([facility] [address] [place] [address] RBC (Bld) [#/Vol] 3.89 x10*6/uL Low 4.00-5.20 [facility] Comment on above: Performed By: #### 2 243-4 #### MARIA E KAPADIA ([id number]) [facility] ([facility] [address] [place] [address] WBC (Bld) [#/Vol] 5.2 x10*3/uL Normal 4.4-11.3 [facility] Comment on above: Performed By: #### 2 243-4 #### MARIA E KAPADIA ([id number]) [facility] ([facility] [address] [place] [address] Estradiolon 11-08-2024 E2 [Mass/Vol] 43 pg/mL Normal [facility] Comment on above: Order Comment: REF V ALUES FOLLICULAR PHASE 20-144 MID CYCLE 64-357 LUTEAL PHASE 56-214 POSTMENOPAUSE < 32 PREPUBERTY < 20 FEMALE 10-18Y 8-110 MALE 10-18Y < 20 ADULT MALE < 40 Performed By: #### 2 243-4 #### MARIA E LI ([id number]) [facility] ([facility] [address] [place] [address] Follicle Diameter USon 11-08 Follicle scan perfor med with follicle measurements in report., Trilaminar appearance to the endometrium is noted., and Free fluid is noted in the cul de sac. RIS SECTRA ONLY Radiology Study observation (narrative) [facility] Work Phone: Follicle Diameter USOrdered By: Henrietta Herndon on 11-08-2024 [facility] Work Phone: TERRENCE US PELVIS LIMITED FOLLIC LES-FOLLICLE STUDIES PERFORMEDon 11-08-2024 [facility] US PELVIS LIMITED FOLLICLES-FOLLICLE STUDIES PERFORMED Follicle scan performed with follicle measurements in report., Trilaminar appearance to the endometrium is noted., and Free fluid is noted in the cul de sac. Normal [facility] No Panel Informationon 10-11 Henrietta Herndon MD 10/11/2024 9:48 AM Egg Retrieval Date/Time: 10/11/2024 9:41 AM Performed by: Henrietta Herndon MD Authorized by: Katelyn Benitez [facility] Consent: Consent obtained: Verbal and written [...] diagnosis: Female infertility Post op diagnosis: Same 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: Leslie IV Fluids: 300 cc EBL: 5 cc UOP: Not recorded Specimen: Oocytes Complications: None Number of Oocytes right ovary: 16 Ovarian access (right): Easy Number of Oocytes left ovary: 9 Ovarian access (left): Easy Endometrial thickness: Tl Needle type: Single Additional notes: I was present and supervised the entire procedure. Henrietta S Khushboo 10/11/24 9:42 AM [facility] Work Phone: Lutropinon 10-10-2024 Lutropin Qn 42.5 IU/L [facility] Comment on above: Result Comment: LH R eference Values Follicular Phase 1.5-10.0 Mid-Cycle 13.0-72.0 Luteal Phase 0.5-13.0 Menopause 15.0-65.0 Pre-puberty 0- 3.0 Children 0- 6.0 Adult Male 1.0- 9.0 Luteinizing Hormone is performed using the OrderAhead Access Immunoassay. LH testing is performed using a different test methodology at [facility] than other [facility]. Direct result comparison should only be made within the same method. Performed By: #### 2 243-4 #### MARIA E KAPADIA ([id number]) [facility] ([facility] [address] [place] [address] Progesteroneon 10-10-2024 Progesterone [Mass/Vol] 5.0 ng/mL [facility] Comment on above: Order Comment: REF V ALUES FOLLICULAR PHASE 20-144 MID CYCLE 64-357 LUTEAL PHASE 56-214 POSTMENOPAUSE < 32 PREPUBERTY < 20 FEMALE 10-18Y 8-110 MALE 10-18Y < 20 ADULT MALE < 40 Performed By: #### 2 243-4 #### MARIA E KAPADIA ([id number]) [facility] ([facility] [facility] [place] [address] Estradiolon 10-09-2024 E2 [Mass/Vol] 7372 pg/mL [facility] Comment on above: Order Comment: REF V ALUES FOLLICULAR PHASE 20-144 MID CYCLE 64-357 LUTEAL PHASE 56-214 POSTMENOPAUSE < 32 PREPUBERTY < 20 FEMALE 10-18Y 8-110 MALE 10-18Y < 20 ADULT MALE < 40 Estradiol measurement is performed using the [employer]лен[employer] [place] Access Estradiol Immunoassay. Estradiol testing is performed using a different test methodology at [facility] than [facility]. Direct result comparison should only be made within the same method. Performed By: #### 2 243-4 #### MARIA E KAPADIA ([id number]) [facility] ([facility] [address] [place] [address] Progesteroneon 10-09-2024 Progesterone [Mass/Vol] 1.3 ng/mL [facility] Comment on above: Order Comment: REF V ALUES Male <0.2-0.8 Follicular Phase <0.2-1.5 Luteal Phase 7.4-15.4 Post Menopausal <0.2-0.2 1ST Trimester 12.0-84.0 2ND Trimester 10.2-58.8 3RD Trimester 46.5-160 Progesterone is performed using the Елена [place] Access Immunoassay. Progesterone testing is performed using a different test methodology at [facility] than [facility]. Direct result comparison should only be made within the same method. Performed By: #### 2 839-9 #### MARIA E KAPADIA ([id number]) [facility] ([facility] [address] [place] [phone] TERRENCE US PELVIS LIMITED FOLLIC LES-FOLLICLE STUDIES PERFORMEDon 10-09-2024 TERRENCE US PELVIS LIMITED FOLLICLES-FOLLICLE STUDIES PERFORMED Follicle scan performed with follicle measurements in report. Normal [facility] Estradiolon 10-08-2024 E2 [Mass/Vol] 4637 pg/mL [facility] Comment on above: Order Comment: REF V ALUES FOLLICULAR PHASE 20-144 MID CYCLE 64-357 LUTEAL PHASE 56-214 POSTMENOPAUSE < 32 PREPUBERTY < 20 FEMALE 10-18Y 8-110 MALE 10-18Y < 20 ADULT MALE < 40 Estradiol measurement is performed using the Елена [place] Access Estradiol Immunoassay. Estradiol testing is performed using a different test methodology at [facility] than [facility]. Direct result comparison should only be made within the same method. Performed By: #### 2 243-4 #### MARIA E KAPADIA ([id number]) [facility] ([facility] [address] [place] [phone] Follicle Diameter USon 10-08 Follicle scan perfor med with follicle measurements in report. RIS SECTRA ONLY Radiology Study observation (narrative) [facility] Work Phone: Follicle Diameter USOrdered By: Gavino Tristan on 10-08-2024 [facility] Work Phone: Progesteroneon 10-08-2024 Progesterone [Mass/Vol] 0.9 ng/mL Normal [facility] Comment on above: Order Comment: REF V ALUES Male <0.2-0.8 Follicular Phase <0.2-1.5 Luteal Phase 7.4-15.4 Post Menopausal <0.2-0.2 1ST Trimester 12.0-84.0 2ND Trimester 10.2-58.8 3RD Trimester 46.5-160 Progesterone is performed using the Елена [place] Access Immunoassay. Progesterone testing is performed using a different test methodology at [facility] than other [facility]. Direct result comparison should only be made within the same method. Performed By: #### 2 839-9 #### MARIA E KAPADIA ([id number]) [facility] ([facility] [address] [place] [phone] TERRENCE US PELVIS LIMITED FOLLIC LES-FOLLICLE STUDIES PERFORMEDon 10-08-2024 TERRENCE US PELVIS LIMITED FOLLICLES-FOLLICLE STUDIES PERFORMED Follicle scan performed with follicle measurements in report. Normal [facility] Estradiolon 10-07-2024 E2 [Mass/Vol] 4276 pg/mL Normal [facility] Comment on above: Order Comment: REF V ALUES FOLLICULAR PHASE 20-144 MID CYCLE 64-357 LUTEAL PHASE 56-214 POSTMENOPAUSE < 32 PREPUBERTY < 20 FEMALE 10-18Y 8-110 MALE 10-18Y < 20 ADULT MALE < 40 Estradiol measurement is performed using the Елена [employer] Access Estradiol Immunoassay. Estradiol testing is performed using a different test methodology at [facility] than other [facility]. Direct result comparison should only be made within the same method. Performed By: #### 2 243-4 #### MARIA E KAPADIA ([id number]) [facility] ([facility] [address] [place] [phone] Follicle Diameter USon 10-07 Follicle scan perfor med with follicle measurements in report. RIS SECTRA ONLY Radiology Study observation (narrative) [facility] Work Phone: Follicle Diameter USOrdered By: Gavino Tristan on 10-07-2024 [facility] Work Phone: Progesteroneon 10-07-2024 Progesterone [Mass/Vol] 0.8 ng/mL Normal [facility] Comment on above: Order Comment: REF V ALUES Male <0.2-0.8 Follicular Phase <0.2-1.5 Luteal Phase 7.4-15.4 Post Menopausal <0.2-0.2 1ST Trimester 12.0-84.0 2ND Trimester 10.2-58.8 3RD Trimester 46.5-160 Progesterone is performed using the OrderAhead Access Immunoassay. Progesterone testing is performed using a different test methodology at [facility] than other [facility]. Direct result comparison should only be made within the same method. Performed By: #### 2 839-9 #### MARIA E KAPADIA ([id number]) [facility] ([facility] [address] [place] [address] TERRENCE US PELVIS LIMITED FOLLIC LES-FOLLICLE STUDIES PERFORMEDon 10-07-2024 TERRENCE US PELVIS LIMITED FOLLICLES-FOLLICLE STUDIES PERFORMED Follicle scan performed with follicle measurements in report. Normal [facility] Estradiolon 10-05-2024 E2 [Mass/Vol] 1290 pg/mL Normal [facility] Comment on above: Order Comment: REF V ALUES FOLLICULAR PHASE 20-144 MID CYCLE 64-357 LUTEAL PHASE 56-214 POSTMENOPAUSE < 32 PREPUBERTY < 20 FEMALE 10-18Y 8-110 MALE 10-18Y < 20 ADULT MALE < 40 Performed By: #### 2 243-4 #### MARIA E KAPADIA ([id number]) [facility] ([facility] [address] [place] [address] Follicle Diameter USon 10-05 Follicle scan perfor med with follicle measurements in report. Trilaminar appearance to the endometrium is noted. RIS SECTRA ONLY [facility] Work Phone: Radiology Study observation (narrative) [facility] Work Phone: TERRENCE US PELVIS LIMITED FOLLIC LES-FOLLICLE STUDIES PERFORMEDon 10-05-2024 TERRENCE US PELVIS LIMITED FOLLICLES-FOLLICLE STUDIES PERFORMED Follicle scan performed with follicle measurements in report. Trilaminar appearance to the endometrium is noted. Normal [facility] Estradiolon 10-03-2024 E2 [Mass/Vol] 479 pg/mL Normal [facility] Comment on above: Order Comment: REF V ALUES FOLLICULAR PHASE 20-144 MID CYCLE 64-357 LUTEAL PHASE 56-214 POSTMENOPAUSE < 32 PREPUBERTY < 20 FEMALE 10-18Y 8-110 MALE 10-18Y < 20 ADULT MALE < 40 Performed By: #### 2 243-4 #### MARIA E KAPADIA ([id number]) [facility] [place] [address] [place] [address] TERRENCE US PELVIS LIMITED FOLLIC LES-FOLLICLE STUDIES PERFORMEDon 10-03-2024 [facility]ERRENCE US PELVIS LIMITED FOLLICLES-FOLLICLE STUDIES PERFORMED Follicle scan performed with follicle measurements in report., Trilaminar appearance to the endometrium is noted., and Free fluid is noted in the cul de sac. Normal [facility] CBC panel Auto (Bld)on 09-27 Erythrocyte distribution width (RBC) [Ratio] 12.3 % Normal 11.5-14.5 [facility] Comment on above: Performed By: #### 5 8410-2 #### MARIA E KAPADIA ([id number]) [facility] [place] [address] [place] [id number] Hematocrit (Bld) [Volume fraction] 34.4 % Low 36.0-46.0 [facility] Comment on above: Performed By: #### 5 8410-2 #### MARIA E KAPADIA ([id number]) [facility] [place] [address] [place] [address] Hemoglobin (Bld) [Mass/Vol] 11.4 g/dL Low 12.0-16.0 [facility] Comment on above: Performed By: #### 5 8410-2 #### MARIA E KAPADIA ([id number]) [facility] [place] [address] [place] [id number] MCH (RBC) [Entitic mass] 29.7 pg Normal 26.0-34.0 [facility] Comment on above: Performed By: #### 5 8410-2 #### MARIA E KAPADIA ([id number]) [facility] [place] [address] [place] [address] MCHC (RBC) [Mass/Vol] 33.1 g/dL Normal 32.0-36.0 [facility] Comment on above: Performed By: #### 5 8410-2 #### MARIA E KAPADIA ([id number]) [facility] [place] [address] [place] [address] MCV (RBC) [Entitic vol] 90 fL Normal 80-100 [facility] Comment on above: Performed By: #### 5 8410-2 #### MARIA E KAPADIA ([id number]) [facility] [place] [address] [place] [id number] Nucleated RBC/100 WBC (Bld) [Ratio] 0.0 /100 WBCs Normal 0.0-0.0 [facility] Comment on above: Performed By: #### 5 8410-2 #### MARIA E KAPADIA ([id number]) [facility] [place] [address] [place] [address] Platelets (Bld) [#/Vol] 334 x10*3/uL Normal 150-450 [facility] Comment on above: Performed By: #### 5 8410-2 #### MARIA E KAPADIA ([id number]) [facility] [place] [address] [place] [address] RBC (Bld) [#/Vol] 3.84 x10*6/uL Low 4.00-5.20 [facility] Comment on above: Performed By: #### 5 8410-2 #### MARIA E KAPADIA ([id number]) [facility] [place] [address] [place] [address] WBC (Bld) [#/Vol] 5.7 x10*3/uL Normal 4.4-11.3 [facility] Comment on above: Performed By: #### 5 8410-2 #### MARIA E STEFFI ([id number]) [facility] [place] [address] [place] [address] Estradiolon 09-27-2024 E2 [Mass/Vol] pg/mL Normal [facility] Comment on above: Order Comment: REF V ALUES FOLLICULAR PHASE 20-144 MID CYCLE 64-357 LUTEAL PHASE 56-214 POSTMENOPAUSE < 32 PREPUBERTY < 20 FEMALE 10-18Y 8-110 MALE 10-18Y < 20 ADULT MALE < 40 Performed By: #### 2 243-4 #### MARIA E STEFFI ([id number]) [facility] [place] [address] [place] [address] TERRENCE US PELVIS LIMITED FOLLIC LES-FOLLICLE STUDIES PERFORMEDon 09-27-2024 TERRENCE US PELVIS LIMITED FOLLICLES-FOLLICLE STUDIES PERFORMED Follicle scan performed with follicle measurements in report. and Trilaminar appearance to the endometrium is not noted. Normal [facility] HCG ( test) Ql (U)O rdered By: Sydney Grier on 08-14-2024 Preg Test, Ur Negative Negative [facility] No Panel InformationOrdered By: Sydney Grier on 08-14-2024 [facility] No Panel Informationon 08-14 Hilary Holder MD 08/14/2024 11:03 AM Hysteroscopy diagnostic Date/Time: 08/14/2024 11:02 AM Performed by: Hilary Holder MD Authorized by: Imelda Pollard MD Consent: Consent obtained: Verbal and written Consent given by: Patient Risks, benefits, and alternatives were discussed: yes Risks discussed: Bleeding, infection and pain [place] protocol: Procedure explained and questions answered to [...] diagnosis: fertility testing Post op diagnosis: Same 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: Fellow Anesthesia: None IV: None EBL: 3 [...] well, no immediate complications [facility] Director Weights And Measures Office Visit Reporton 07-12-2024 Director Weights And Measures Office Visit Report [facility] [address], [facility] [address] [place] [address] OFFICE VISIT Date of Service: 07/12/24 MR#: [id number] Acct: [id number] Name: MARIXA AMOS Rep #: [id number] : 1995 Provider: DERRICK joshua Age/Sex: 29/F [place] [facility] [place]: Signed Intake Vital Signs 06/29/24 12:57 07/12/24 08:25 07/12/24 08:32 Height 5 ft 3 in 5 ft 3 in 5 ft 3 in Weight: 182 lb 184 lb 4 oz BMI 32.2 32.6 BP 126/74 H 122/74 H Pulse 70 Intake Visit Reasons: fertility consult Chief Complaint: Fertility consult Assistant Tennis Coach Required: No Is patient in pain?: No [...] 07/12/24 History mcg (2,500 unit) capsule omega 3-ksy-qod-fish oil 300 1 cap PO QDAY 07/12/24 07/12/24 History mg-1,000 mg capsule (Fish Oil) Is last menstrual period known: Yes Last Menstrual Period: 07/12/24 Post menopausal: No Patient : No : No PFSH Medical History (Updated 07/12/24 @ 10:30 by Jesika Farrar DIVIDER OPERATOR, DIVIDER OPERATOR-C) Endometriosis Low iron Anemia Latent tuberculosis Ulcerative [...] HSG with exp lap in 07/2023 at [place] and told endometriosis. She failed letrozole and IUI at another provider. SA normal. She has appt in [place] 08/03 at for infertility discussion. She just [...] Marte Signature: Date (if applicable) CC: Normal [facility] Director Weights And Measures Office Visit Reporton 06-29-2024 Director Weights And Measures Office Visit Report [facility] [address], [address] [place] [address] OFFICE VISIT Date of Service: 06/29/24 MR#: [id number] Acct: [id number] Name: MARIXA AMOS Rep #: [id number] : 1995 Provider: DERRICK Hyman Age/Sex: 28/F Location[place] [facility] Status: Signed Intake Vital Signs 06/01/24 09:21 06/29/24 12:57 Height 5 ft 3 in 5 ft 3 in Weight: 183 lb 2 oz 182 lb BMI 32.4 32.2 BP 139/76 H 126/74 H Pulse 83 70 Intake Visit Reasons: 4 WK WM Chief Complaint: med check Assistant Tennis Coach Required: No Is patient in pain?: No [...] Nutrition plan: Balanced calorie restricted nutritional plan [id number] mario. Myfitnesspal tracking. (more content not included)... Normal [facility] PROGESTERONE 4317on 06-25-20 24 PROGESTERONE 0.3 ng/mL Normal . [facility] Comment on above: Order Comment: N day 21 lab Result Comment: Foll icular phase 0.1 - 0.9 Luteal phase 1.8 - 23.9 Ovulation phase 0.1 - 12.0 First trimester 11.0 - 44.3 Second trimester 25.4 - 83.3 Third trimester 58.7 - 214.0 Postmenopausal 0.0 - 0.1 Performed at: [facility] Lab[address] [id number] Credit Card Interviewer: Almas Saavedra PhD, Phone: [phone] Performed By: #### L 801.2600 #### [facility] [address] [place], [place], [id number] Comprehensive Metabolic Prof ilon 06-24-2024 Albumin [Mass/Vol] 3.9 g/dL Normal 3.2-5.0 [facility] Comment on above: Performed By: #### L 101.9900, L501.6710, L3410.9992, L100.0100, L500.4050 #### [facility] [address] [place], [address] Albumin/Globulin [Mass ratio] 1.1 {ratio} Normal 0.9-2.4 [facility] Comment on above: Performed By: #### L 101.9900, L501.6710, L3410.9992, L100.0100, L500.4050 #### [facility] [address] [place], [address] ALK P 59 U/L Normal 45-117 [facility] Comment on above: Performed By: #### L 101.9900, L501.6710, L3410.9992, L100.0100, L500.4050 #### [facility] [address] [place], [address] ALT [Catalytic activity/Vol] 32 U/L Normal 13-56 [facility] Comment on above: Performed By: #### L 101.9900, L501.6710, L3410.9992, L100.0100, L500.4050 #### [facility] [address] [place], [address] AST [Catalytic activity/Vol] 15 U/L Normal 15-37 [facility] Comment on above: Performed By: #### L 101.9900, L501.6710, L3410.9992, L100.0100, L500.4050 #### [facility] [address] [place], [address] Bilirubin [Mass/Vol] 0.40 mg/dL Normal 0.20-1.00 [facility] Comment on above: Result Comment: For patients on eltrombopag therapy, use of Dimension Temple TBIL is not recommended. Performed By: #### L 101.9900, L501.6710, L3410.9992, L100.0100, L500.4050 #### [facility] [address] [place], [address] BUN/CRE 15.6 RATIO Normal 10-20 [facility] Comment on above: Performed By: #### L 101.9900, L501.6710, L3410.9992, L100.0100, L500.4050 #### [facility] [address] [place], [address] CA,Total 9.4 mg/dL Normal 8.5-10.1 [facility] Comment on above: Performed By: #### L 101.9900, L501.6710, L3410.9992, L100.0100, L500.4050 #### [facility] [address] [place], [address] Chloride [Moles/Vol] 106 mmol/L Normal 98-107 [facility] Comment on above: Performed By: #### L 101.9900, L501.6710, L3410.9992, L100.0100, L500.4050 #### [facility] [address] [place], [address] CO2 [Moles/Vol] 26.0 mmol/L Normal 21.0-32.0 [facility] Comment on above: Performed By: #### L 101.9900, L501.6710, L3410.9992, L100.0100, L500.4050 #### [facility] [address] [place], [address] Creatinine [Mass/Vol] 0.71 mg/dL Normal 0.55-1.02 [facility] Comment on above: Result Comment: The validity of the calculated GFR GFRAA in patients over 70 years has not been determined. Clinical correlation is essential. Performed By: #### L 101.9900, L501.6710, L3410.9992, L100.0100, L500.4050 #### [facility] [address] [place], [address] EST GFR - AA 125 mL/min Normal >60 [facility] Comment on above: Result Comment: Afri can Bulgarian GFR Calc Performed By: #### L 101.9900, L501.6710, L3410.9992, L100.0100, L500.4050 #### [facility] [address] [place], [address] GAP 4 Low 5-15 [facility] Comment on above: Performed By: #### L 101.9900, L501.6710, L3410.9992, L100.0100, L500.4050 #### [facility] [address] [place], [address] GFR/1.73 sq M.predicted among non-blacks MDRD (S/P/Bld) [Vol rate/Area] 103 mL/min/{1.73_m2} Normal >60 [facility] Comment on above: Result Comment: Non- GFR Calc Performed By: #### L 101.9900, L501.6710, L3410.9992, L100.0100, L500.4050 #### [facility] [address] [place], [address] Globulin (S) [Mass/Vol] 3.7 g/dL Normal 2.2-4.2 [facility] Comment on above: Performed By: #### L 101.9900, L501.6710, L3410.9992, L100.0100, L500.4050 #### [facility] [address] [place], [address] Glucose [Mass/Vol] 96 mg/dL Normal 74-106 [facility] Comment on above: Performed By: #### L 101.9900, L501.6710, L3410.9992, L100.0100, L500.4050 #### [facility] [address] [place], [address] Potassium [Moles/Vol] 4.1 mmol/L Normal 3.5-5.1 [facility] Comment on above: Performed By: #### L 101.9900, L501.6710, L3410.9992, L100.0100, L500.4050 #### [facility] [address] [place], [address] Sodium [Moles/Vol] 136 mmol/L Normal 136-145 [facility] Comment on above: Performed By: #### L 101.9900, L501.6710, L3410.9992, L100.0100, L500.4050 #### [facility] [address] [place], [address] T PROT 7.6 g/dL Normal 6.4-8.2 [facility] Comment on above: Performed By: #### L 101.9900, L501.6710, L3410.9992, L100.0100, L500.4050 #### [facility] [address] [place], [address] Urea nitrogen [Mass/Vol] 11 mg/dL Normal 7-18 [facility] Comment on above: Performed By: #### L 101.9900, L501.6710, L3410.9992, L100.0100, L500.4050 #### [facility] [address] [place], [address] Stool lactoferrin detection by immunoassayOrdered By: Domo Weaver on 12-11-2023 Lactoferrin IA Ql (Stl) [facility] Cervical or vagninal specime n microscopic examination by cytology stain (reported asOrdered By: Iesha Lo on 12-09-2023 Cytology report Cyto stain Doc (Cvx/Vag) Comment . [facility] Comment on above: The Pap smear is a s creening test designed to aid in thedetection of premalignant and malignant conditions of theuterine cervix. It is not a diagnostic procedure andshould not be used as the sole means of detecting cervicalcancer. Both false-positive and false-negative reports dooccur. Laboratory - CytologyOrdered By: Iesha Lo on 12-09-2023 Neon Tube Bender Cyto stain Nom (Cvx/Vag) [ID] Comment . [facility] Comment on above: Main [place]ona totechnologist (ASCP) Laboratory - Miscellaneous t estsOrdered By: Iesha Lo on 12-09-2023 Service comment (Unsp spec) [Interp] . . [facility] No Panel InformationOrdered By: Iesha Lo on 12-09-2023 Human Papillomavirus Screen Comment . [facility] Comment on above: The HPV DNA reflex c jewel were not met with this specimenresult therefore, no HPV testing was performed.Performed at: [facility] [id number] [place], [place] [id number] Director: Phi Yoder MD, Phone: [phone] at: [facility] Lab[address] [place] [id number] Director: Rose Haney MD, Phone: [phone] Thin prep Papanicolaou smear with manual screeningOrdered By: Iesha Lo on 12-09-2023 Thin prep Papanicolaou smear with manual screening Comment . [facility] Comment on above: NEGATIVE FOR INTRAEP ITHELIAL LESION OR MALIGNANCY. This liquid based Th inPrep(R) pap test was screened withthe use of an image guided system. PROGon 11-25-2023 Progesterone Level 6.0 ng/mL Normal [facility] ([place]) Comment on above: Result Comment: Adul t Female Progesterone Reference Ranges: Follicular phase <0.21 - 1.40 ng/mL Luteal phase 3.34 - 25.56 ng/mL Mid-Luteal phase 4.44 - 28.03 ng/mL Postmenopausal <0.21 - 0.73 ng/ml Female: First trimester 11.22 - 90.00 ng/ml Second trimester 25.55 - 89.40 ng/ml Third trimester 48.40 - 422.50 ng/ml Performed By: #### P ROMEL #### [place] [address] Absolute lymphocyte countOrd ered By: Domo Weaver on 11-06-2023 Lymphocytes Auto (Unsp spec) [#/Vol] 1.91 10*3/uL 0.83-4.51 [facility] Automated lymphocyte count a s percentage of total leukocytesOrdered By: Domo Weaver on 11-06-2023 Lymphocytes/100 WBC Auto (Unsp spec) 37.4 % 19-41 [facility] Basophil percentageOrdered B y: Domo Weaver on 11-06-2023 Basophils/100 WBC (Bld) 0.8 % 0-1 [facility] Eosinophils/100 WBC (Bld) 2.2 % 0-5 [facility] Hemoglobin (Bld) [Mass/Vol] 11.6 g/dL 12.0-15.0 [facility] Monocytes/100 WBC (Bld) 8.2 % 0-10 [facility] Neutrophils (Bld) [#/Vol] 2.6 10*3/uL 2.0-7.7 [facility] Neutrophils/100 WBC (Bld) 51.2 % 47-70 [facility] WBC (Bld) [#/Vol] 5.1 10*3/uL 4.4-11.0 [facility] Determination of erythrocyte mean corpuscular volume (MCV)Ordered By: Domo Weaver on 11-06-2023 MCV (RBC) [Entitic vol] 91.6 fL 81-99 [facility] Erythrocyte distribution wid th ratioOrdered By: Domorobles Weaver on 11-06-2023 Erythrocyte distribution width (RBC) [Ratio] 12.5 % 11.6-14.6 [facility] Erythrocyte distribution wid th standard deviationOrdered By: Domoyamileth Weaver on 11-06-2023 Erythrocyte distribution width (RBC) [Entitic vol] 41.9 fL 35.1-43.9 [facility] Hematocrit Auto (Bld) [Volum e fraction]Ordered By: Domo Weaver on 11-06-2023 Hematocrit (Bld) [Volume fraction] 34.8 % 37-47 [facility] Immature granulocytes/100 WB C Auto (Bld)Ordered By: Domoyamileth Weaver on 11-06-2023 Immature granulocytes/100 WBC (Bld) 0.200 % 0.0-0.9 [facility] Comment on above: IG% - Immature Granu locytes (promyelocytes, myelocytes and metamyelocytes) > 1% indicates that a LEFT SHIFT is Present. Laboratory - Hematology and Cell countsOrdered By: Domo Weaver on 11-06-2023 MCH (RBC) [Entitic mass] 30.5 pg 27.0-32.0 [facility] MCHC (RBC) [Mass/Vol] 33.3 g/dL 32-36 [facility] Nucleated RBC/100 WBC (Bld) [Ratio] 0 % 0-5 [facility] Platelet mean volume (Bld) [Entitic vol] 10.5 fL 6.2-12.0 [facility] Platelets (Bld) [#/Vol] 291 10*3/uL 150-450 [facility] No Panel InformationOrdered By: Domo Weaver on 11-06-2023 Miscellaneous Test See comment [facility] Comment on above: Scanned image report available in EMR RBC Auto (Bld) [#/Vol]Ordere d By: Domo Weaver on 11-06-2023 RBC (Bld) [#/Vol] 3.80 10*6/uL 4.2-5.4 [facility] - Chemistry and C hemistry - challengeOrdered By: Patrice Macias on 10-01-2023 HCG ( test) Ql (U) Negative [facility] Comment on above: Very dilute urine sp ecimens, as indicated by a low specificgravity, may not contain claims service representative levels of hCG. If is still suspected, a first morning urinespecimen should be collected 48 hours later and tested. LABORATORYOrdered By: Shira Juarez on 08-27-2023 HCG ( test) Ql Negative (08/27/23 10:05 AM) Normal AO Manual Urine SS test (u) int Not detected Invalid Interpretation Code AO Manual Urine SS PREGUon 08-27-2023 HCG ( test) Ql (U) Negative Normal [facility] ([place]) Comment on above: Performed By: #### P REGU #### [place] [address] test (u) int Not detected Invalid Interpretation Code [facility] ([place]) Comment on above: Performed By: #### P REGU #### [place] [address] No Panel InformationOrdered By: Domo Weaver on 08-07-2023 Stool Calprotectin 275 ug/g 0-120 [facility] Comment on above: Concentration Interp retation Follow-Up< 5 - 50 ug/g Normal None>50 -120 ug/g Borderline Re-evaluate in 4-6 weeks >120 ug/g Abnormal Repeat as clinically indicatedPerformed at: - [facility] [address] [id number] Director: Jose Claros MD, Phone: [phone] Stool lactoferrin detection by immunoassayOrdered By: Domo Weaver on 08-07-2023 Lactoferrin IA Ql (Stl) [facility] CIRANon 08-03-2023 Dil Dewey Viper Venom 35.1 seconds Normal 30.0-42.0 [facility] ([place]) Comment on above: Performed By: #### 5 17085, PROL #### [facility] [address] [place] [address] [place] Interpretation See Below Normal [facility] ([place]) Comment on above: Result Comment: No e vidence of lupus anticoagulant. Performed By: #### 5 19614, PROL #### [facility] [address] [place] [address] Platelet neutraliz. Negative Normal [facility] ([place]) Comment on above: Performed By: #### 5 50772, PROL #### [facility] [address] [place] [address] Erythrocyte sedimentation ra teOrdered By: Domo Weaver on 08-03-2023 ESR (Bld) [Velocity] 6 mm/h 0-30 [facility] No Panel InformationOrdered By: Domo Weaver on 08-03-2023 Miscellaneous Test See comment [facility] Comment on above: Scanned image report available in EMR Qualitative QuantiFERON-TB g old in tube testOrdered By: Domo Weaver on 08-03-2023 M. tuberculosis tuberculin stim IFN-g Ql (Bld) 0.16 IU/mL . [facility] Serum or plasma C reactive p rotein measurement (mass/volume)Ordered By: Domo Weaver on 08-03-2023 CRP [Mass/Vol] mg/L 0.0-3.0 [facility] Comment on above: C-Reactive Protein ( CRP) provides useful information for thediagnosis, therapy and monitoring of inflammatory processesand associated diseases. For the evaluation of Relative Riskfor Cardiovascular Disease, a High Sensitivity CRP (HSCRP)should be ordered. Thin prep Papanicolaou smear with manual screeningOrdered By: Domo Weaver on 08-03-2023 Thin prep Papanicolaou smear with manual screening Comment . [facility] Comment on above: QuantiFERON-TB Gold Plus [...] smear with manual screening 0.08 IU/mL . [facility] Thin prep Papanicolaou smear with manual screening 0 IU/mL . [facility] Thin prep Papanicolaou smear with manual screening > 10.00 IU/mL . [facility] Thin prep Papanicolaou smear with manual screening Negative Negative [facility] Comment on above: No response to [...] the productionof interferon gamma. Chemiluminescence immunoassaymethodologyPerformed at: [facility] [id number] Director: Almas Saavedra PhD, Phone: [phone] Jamie 08-02-2023 [facility] 3.40 ng/mL Normal [facility] ([place]) Comment on above: Result Comment: For assays employing antibodies, the possibility exists for interference by heterophile antibodies in the samples.1 1.Tony Billingsley. Interferences in Immunoassays - still a threat. Clin. Chem. 2000; 46: 3787-4522. This test was developed and its performance characteristics determined by [facility]. It has not been cleared or approved by the Food and Drug Administration. Reference Range: Females 26 - 30y: 1.03 - 11.10 Median 4.20 AMH concentrations of >= 1.06 ng/mL is correlated with a better response to ovarian stimulation, produced more retrievable oocytes and higher odds of live according to Rodyer et al. Fertility and Sterility. 2010: 94:3956-3978. The current AMH test method correlates with [...] exclude an AMH-secreting ovarian tumor. Performed At: [facility] [address] [place] [id number] Felisa Umaña MD Ph:[phone] Performed By: #### 5 91804, PROL #### [place] [address] PROLon 07-30-2023 Prolactin 16.5 ng/mL Normal 2.0-30.0 [facility] ([place]) Comment on above: Performed By: #### 5 14772, PROL #### [place] [address] APTTon 07-29-2023 aPTT Coag (Bld) [Time] 33.5 s Normal 25.0-35.0 [facility] ([place]) Comment on above: Result Comment: For Heparin anticoagulation therapy, the recommended therapeutic range is: 54-77 seconds (APTT Correlation with Anti-Xa therapeutic range of 0.3-0.7 units/ml). PLEASE REFERENCE THE PHARMACY PROTOCOL FOR DOSING. Performed By: #### 5 83548, PROL #### [place] [address] Heparin dose (APTT) None Normal [facility] ([place]) Comment on above: Performed By: #### 5 25453, PROL #### [address] [address] .Auto Diffon 04-21-2023 Basophil, Absolute 0.0 10 3/mcL Normal 0.0-0.3 [facility] ([place]) Comment on above: Performed By: #### C BC, TSH, CMP, ANEU, ADIFF, LIPID, GFR #### [place] [address] Basophils/100 WBC (Bld) 0.5 % Normal 0.0-2.5 [facility] ([place]) Comment on above: Performed By: #### C BC, TSH, CMP, ANEU, ADIFF, LIPID, GFR #### [address] [address] Eosinophil, Absolute 0.1 10 3/mcL Normal 0.0-0.7 [facility] ([place]) Comment on above: Performed By: #### C BC, TSH, CMP, ANEU, ADIFF, LIPID, GFR #### [address] [address] Eosinophils/100 WBC (Bld) 1.8 % Normal 0.0-6.0 [facility] ([place]) Comment on above: Performed By: #### C BC, TSH, CMP, ANEU, ADIFF, LIPID, GFR #### [address] [address] Lymphocyte, Absolute 1.8 10 3/mcL Normal 0.9-4.3 [facility] ([place]) Comment on above: Performed By: #### C BC, TSH, CMP, ANEU, ADIFF, LIPID, GFR #### [address] [address] Lymphocytes/100 WBC (Bld) 28.6 % Normal 20.0-40.0 [facility] ([place]) Comment on above: Performed By: #### C BC, TSH, CMP, ANEU, ADIFF, LIPID, GFR #### [address] [address] Monocyte, Absolute 0.5 10 3/mcL Normal 0.1-1.4 [facility] ([place]) Comment on above: Performed By: #### C BC, TSH, CMP, ANEU, ADIFF, LIPID, GFR #### [address] [address] Monocytes/100 WBC (Bld) 7.4 % Normal 2.0-13.0 [facility] ([place]) Comment on above: Performed By: #### C BC, TSH, CMP, ANEU, ADIFF, LIPID, GFR #### [address] [address] Neutrophils/100 WBC (Bld) 61.7 % Normal 50.0-75.0 [facility] ([place] Comment on above: Performed By: #### C BC, TSH, CMP, ANEU, ADIFF, LIPID, GFR #### [address] [address] .GFRon 04-21-2023 GFR >60 Normal [facility] ([place] Comment on above: Result Comment: GFR Population [...] mL/min/1.73 square meters Performed By: #### 5 [id number], PROL #### [address] [address] GFR Non- >60 Normal [facility] ([place]) Comment on above: Result Comment: GFR Population [...] mL/min/1.73 square meters Performed By: #### 5 [id number], PROL #### [address] [address] .NEUABSon 04-21-2023 Neutrophil, Absolute 3.8 10 3/mcL Normal 2.3-8.1 [facility] ([place]) Comment on above: Performed By: #### C BC, TSH, CMP, ANEU, ADIFF, LIPID, GFR #### [address] [address] CBCon 04-21-2023 Erythrocyte distribution width (RBC) [Ratio] 12.5 % Normal 11.5-15.5 [facility] ([place]) Comment on above: Performed By: #### C BC, TSH, CMP, ANEU, ADIFF, LIPID, GFR #### [place] [address] Hematocrit (Bld) [Volume fraction] 36.4 % Normal 34.0-46.0 [facility] ([place] Comment on above: Performed By: #### C BC, TSH, CMP, ANEU, ADIFF, LIPID, GFR #### [place] [id number] Hgb 12.1 G/dL Normal 12.0-16.0 [facility] ([place] Comment on above: Performed By: #### C BC, TSH, CMP, ANEU, ADIFF, LIPID, GFR #### [address] [address] MCH (RBC) [Entitic mass] 31.0 pg Normal 27.0-33.0 [facility] ([place]) Comment on above: Performed By: #### C BC, TSH, CMP, ANEU, ADIFF, LIPID, GFR #### [place] [id number] MCHC 33.4 G/dL Normal 32.0-36.0 [facility] ([place] Comment on above: Performed By: #### C BC, TSH, CMP, ANEU, ADIFF, LIPID, GFR #### [place] [id number] MCV (RBC) [Entitic vol] 92.8 fL Normal 80.0-99.0 [facility] ([place] Comment on above: Performed By: #### C BC, TSH, CMP, ANEU, ADIFF, LIPID, GFR #### [place] [id number] Platelet 298 10 3/mcL Normal 150-450 [facility] ([place]) Comment on above: Performed By: #### C BC, TSH, CMP, ANEU, ADIFF, LIPID, GFR #### [place] [id number] Platelet mean volume (Bld) [Entitic vol] 8.8 fL Normal 6.6-10.5 [facility] ([place] Comment on above: Performed By: #### C BC, TSH, CMP, ANEU, ADIFF, LIPID, GFR #### [place] [id number] RBC 3.92 10 6/mcL Low 4.10-5.30 [facility] ([place] Comment on above: Performed By: #### C BC, TSH, CMP, ANEU, ADIFF, LIPID, GFR #### [place] [address] WBC 6.2 10 3/mcL Normal 4.5-10.8 [facility] ([place]) Comment on above: Performed By: #### C BC, TSH, CMP, ANEU, ADIFF, LIPID, GFR #### [address] [address] CMPon 04-21-2023 Albumin Level 4.3 G/dL Normal 3.2-4.8 [facility] ([place]) Comment on above: Performed By: #### C BC, TSH, CMP, ANEU, ADIFF, LIPID, GFR #### [place] [id number] Albumin/Globulin [Mass ratio] 1.3 {ratio} Normal 0.9-1.6 [facility] ([place]) Comment on above: Performed By: #### C BC, TSH, CMP, ANEU, ADIFF, LIPID, GFR #### [place] [id number] ALP [Catalytic activity/Vol] 55 U/L Normal 38-126 [facility] ([place]) Comment on above: Performed By: #### C BC, TSH, CMP, ANEU, ADIFF, LIPID, GFR #### [place] [id number] ALT [Catalytic activity/Vol] 54 U/L High 10-49 [facility] ([place]) Comment on above: Performed By: #### C BC, TSH, CMP, ANEU, ADIFF, LIPID, GFR #### [address] [address] AST [Catalytic activity/Vol] 33 U/L Normal 8-34 [facility] ([place]) Comment on above: Performed By: #### C BC, TSH, CMP, ANEU, ADIFF, LIPID, GFR #### [address] [address] Bili Total 0.40 mg/dL Normal 0.20-1.20 [facility] ([place]) Comment on above: Result Comment: Use of this assay is not recommended for patients undergoing treatment with eltrombopag due to the potential for falsely elevated results. Performed By: #### C BC, TSH, CMP, ANEU, ADIFF, LIPID, GFR #### [address] [address] BUN/Creatinine Ratio 21.4 ratio Normal 10.0-22.0 [facility] ([place] Comment on above: Performed By: #### C BC, TSH, CMP, ANEU, ADIFF, LIPID, GFR #### [address] [address] Calcium [Mass/Vol] 9.3 mg/dL Normal 8.7-10.4 [facility] ([place]) Comment on above: Performed By: #### C BC, TSH, CMP, ANEU, ADIFF, LIPID, GFR #### [address] [address] Chloride [Moles/Vol] 105 mmol/L Normal 98-110 [facility] ([place] Comment on above: Performed By: #### C BC, TSH, CMP, ANEU, ADIFF, LIPID, GFR #### [address] [address] CO2 [Moles/Vol] 28 mmol/L Normal 22-32 [facility] ([place]) Comment on above: Performed By: #### C BC, TSH, CMP, ANEU, ADIFF, LIPID, GFR #### [address] [address] Creatinine [Mass/Vol] 0.56 mg/dL Normal 0.50-1.20 [facility] ([place]) Comment on above: Performed By: #### C BC, TSH, CMP, ANEU, ADIFF, LIPID, GFR #### [address] [address] Electrolyte Balance 6.0 mEq/L Normal 4.0-15.0 [facility] ([place]) Comment on above: Performed By: #### C BC, TSH, CMP, ANEU, ADIFF, LIPID, GFR #### [address] [address] Globulin 3.2 G/dL Normal 1.5-3.8 [facility] ([place]) Comment on above: Performed By: #### C BC, TSH, CMP, ANEU, ADIFF, LIPID, GFR #### [address] [address] Glucose [Mass/Vol] 99 mg/dL Normal 70-110 [facility] ([place]) Comment on above: Performed By: #### C BC, TSH, CMP, ANEU, ADIFF, LIPID, GFR #### [address] [address] Potassium [Moles/Vol] 4.6 mmol/L Normal 3.5-5.0 [facility] ([place]) Comment on above: Result Comment: Spec imen slightly hemolyzed. Performed By: #### C BC, TSH, CMP, ANEU, ADIFF, LIPID, GFR #### [address] [address] Sodium [Moles/Vol] 139 mmol/L Normal 136-145 [facility] ([place]) Comment on above: Performed By: #### C BC, TSH, CMP, ANEU, ADIFF, LIPID, GFR #### [address] [address] Total Protein 7.5 G/dL Normal 5.7-8.2 [facility] ([place]) Comment on above: Result Comment: No te - New Reference Range in effect 20 Performed By: #### C BC, TSH, CMP, ANEU, ADIFF, LIPID, GFR #### [address] [address] Urea nitrogen [Mass/Vol] 12.0 mg/dL Normal 8.0-22.0 [facility] ([place]) Comment on above: Performed By: #### C BC, TSH, CMP, ANEU, ADIFF, LIPID, GFR #### [address] [address] LIPIDon 04-21-2023 Cholesterol [Mass/Vol] 183 mg/dL Normal 50-199 [facility] ([place]) Comment on above: Result Comment: Chol esterol Reference Interval: Less than 200 Desirable 200-239 Borderline high risk 240 and above High risk Performed By: #### 5 93[address], PROL #### [place] [address] Cholesterol in HDL [Mass/Vol] 53 mg/dL Normal 40-59 [facility] ([place]) Comment on above: Performed By: #### 5 28293, PROL #### [place] [address] Cholesterol in LDL [Mass/Vol] 104 mg/dL Normal 0-129 [facility] ([place]) Comment on above: Performed By: #### 5 19228, PROL #### [place] [address] Triglyceride [Mass/Vol] 131 mg/dL Normal 3-149 [facility] ([place]) Comment on above: Performed By: #### 5 14938, PROL #### [place] [address] TSHon 04-21-2023 TSH 0.952 mIU/mL Normal 0.550-4.780 [facility] ([place]) Comment on above: Result Comment: No te - New Reference Range in effect 20 Performed By: #### 5 [address]306, PROL #### [place] [id number] 36on 04-09-2023 36 Name of caller: HEAT HER Relation to patient: patient Contact phone number: [phone] Appointment scheduled with: LANDY BLAIR Appointment date & time: 05/04/23 @ 7:50 AM Reason for visit (are you having any symptoms) : Low blood pressure, unexpected weight gain Transportation issues/ concerns: NO Special accommodations? ( wheel chair, etc) : NO Current medications: STELARA Any refills need: NO Any chronic conditions the provider should be aware of: CHRON'S, 14 WEEKS Normal [facility] 36 In order to comply w ith the No Surprises Act, [facility] is providing you with the following attachments. Any Good Cathy Estimate that may be provided are based on the services you are scheduled to receive. During your visit, there may be additional services required in order for the provider to complete your plan of care. DECLINED Normal [facility] 36on 04-05-2023 36 PATIENT SUBMITTED ON LINE APPOINTMENT REQUEST FOR A PCP APPOINTMENT. SPOKE TO PATIENT AND GOT SOME INFORMATION BUT SHE HAD TO GET OFF THE LINE AND STATES SHE WILL C/B. OK TO SCHEDULE WITH ANY PROVIDER WHEN PATIENT CALLS BACK. FirstName : Marixa LastName : MOI Pronouns : PronounsOther : Email : [email or web address] Phone : [phone] Birthdate : 1995 12:00:00 AM BestTimeToCallBack : Afternoon AppointmentDate : Kirk PhysicianRequested : Symptoms : Weight gain, low blood pressure OptIn : False Normal [facility] Absolute lymphocyte counton 03-05-2022 Lymphocytes Auto (Unsp spec) [#/Vol] 2.37 10*3/uL 0.83-4.51 [facility] Work Phone: Albumin Elph [Mass/Vol]on Albumin [Mass/Vol] 4.1 g/dL 2.9-4.4 [facility] Work Phone: Atypical perinuclear antineu trophil cytoplasmic antibodies measurementon 03-05-2022 Neutrophil cytoplasmic Ab.perinuclear.atypica l IF (S) [Titer] 1:160 titer Neg:<1:20 [facility] Work Phone: Comment on above: The atypical pANCA p attern has been observed in asignificant percentage of patients with ulcerative colitis,primary sclerosing cholangitis and autoimmune hepatitis. Basophil percentageon 2021 Basophil percentage < 0.2 AI 0.0-0.9 [facility] Work Phone: Basophils/100 WBC (Bld) 0.6 % 0-1 [facility] Work Phone: Bilirubin [Mass/Vol] 0.30 mg/dL 0.20-1.00 [facility] Work Phone: Comment on above: For patients on eltr ombopag therapy, use of Dimension Temple TBIL is not recommended. Chloride [Moles/Vol] 105 mmol/L 98-107 [facility] Work Phone: Eosinophils/100 WBC (Bld) 1.4 % 0-5 [facility] Work Phone: Glucose [Mass/Vol] 90 mg/dL 74-106 [facility] Work Phone: Neutrophils (Bld) [#/Vol] 3.5 10*3/uL 2.0-7.7 [facility] Work Phone: Neutrophils/100 WBC (Bld) 53.6 % 47-70 [facility] Work Phone: Potassium [Moles/Vol] 3.8 mmol/L 3.5-5.1 [facility] Work Phone: Protein [Mass/Vol] 7.5 g/dL 6.4-8.2 [facility] Work Phone: Sodium [Moles/Vol] 136 mmol/L 136-145 [facility] Work Phone: WBC (Bld) [#/Vol] 6.4 10*3/uL 4.4-11.0 [facility] Work Phone: Blood erythrocytes count (nu mber/volume)on 03-05-2022 RBC (Bld) [#/Vol] 3.69 10*6/uL 4.2-5.4 [facility] Work Phone: Blood hemoglobin measurement (mass/volume)on 03-05-2022 Hemoglobin (Bld) [Mass/Vol] 11.2 g/dL 12.0-15.0 [facility] Work Phone: Blood lymphocytes/100 leukoc yteson 03-05-2022 Lymphocytes/100 WBC (Bld) 36.9 % 19-41 [facility] Work Phone: Blood monocytes/100 leukocyt eson 03-05-2022 Monocytes/100 WBC (Bld) 7.3 % 0-10 [facility] Work Phone: Blood platelet mean volumeon 03-05-2022 Platelet mean volume (Bld) [Entitic vol] 10.4 fL 6.2-12.0 [facility] Work Phone: Determination of erythrocyte mean corpuscular volume (MCV)on 03-05-2022 MCV (RBC) [Entitic vol] 92.1 fL 81-99 [facility] Work Phone: Erythrocyte sedimentation ra kushal 03-05-2022 ESR (Bld) [Velocity] 13 mm/h 0-30 [facility] Work Phone: Hematocrit Auto (Bld) [Volum e fraction]on 03-05-2022 Hematocrit (Bld) [Volume fraction] 34.0 % 37-47 [facility] Work Phone: Interpretation of serum or p lasma protein pattern by immunofixation (narrative resulton 03-05-2022 Protein Fractions Immunofixation Jesús [Interp] See comment [facility] Work Phone: Comment on above: Result: Not Observed Laboratory - Chemistry and C hemistry - challengeon 03-05-2022 ALP [Catalytic activity/Vol] 48 U/L 45-117 [facility] Work Phone: ALT [Catalytic activity/Vol] 39 U/L 13-56 [facility] Work Phone: CO2 [Moles/Vol] 25.0 mmol/L 21.0-32.0 [facility] Work Phone: Globulin (S) [Mass/Vol] 3.6 g/dL 2.2-4.2 [facility] Work Phone: [phone] Urea nitrogen/Creatinine [Mass ratio] 34.1 mg/mg 10-20 [facility] Work Phone: [phone] Laboratory - Hematology and Cell countson 03-05-2022 Erythrocyte distribution width (RBC) [Entitic vol] 41.1 fL 35.1-43.9 [facility] Work Phone: [phone] Erythrocyte distribution width (RBC) [Ratio] 12.0 % 11.6-14.6 [facility] Work Phone: [phone] Immature granulocytes/100 WBC (Bld) 0.200 % 0.0-0.9 [facility] Work Phone: [phone] Comment on above: IG% - Immature Granu locytes (promyelocytes, myelocytes and metamyelocytes) > 1% indicates that a LEFT SHIFT is Present. MCH (RBC) [Entitic mass] 30.4 pg 27.0-32.0 [facility] Work Phone: [phone] Nucleated RBC/100 WBC (Bld) [Ratio] 0 % 0-5 [facility] Work Phone: [phone] MCHC Auto (RBC) [Mass/Vol]on 03-05-2022 MCHC (RBC) [Mass/Vol] 32.9 g/dL 32-36 [facility] Work Phone: [phone] No Panel Informationon 03-05 Addendum Document Comment . [facility] Work Phone: [phone] Comment on above: Protein electrophore sis scan will follow via computer,mail, or novelty maker delivery. Centromere B Antibody <0.2 AI 0.0-0.9 [facility] Work Phone: [phone] Endomysial IgA Antibody Negative Negative [facility] Work Phone: [phone] Estimated GFR (MDRD) Amer 167 mL/min >60 [facility] Work Phone: [phone] Comment on above: GFR Calc Estimated GFR (MDRD) Non-Af Amer 138 mL/min >60 [facility] Work Phone: [phone] Comment on above: Non- GFR Calc Immunoglobulin E 42 IU/mL 6-495 [facility] Work Phone: [employer] Antibody <0.2 AI 0.0-0.9 [facility] Work Phone: Platelets bldon 03-05-2022 Platelets (Bld) [#/Vol] 258 10*3/uL 150-450 [facility] Work Phone: Serum DNA double strand anti body assay (units/volume)on 03-05-2022 DNA double strand Ab Qn (S) [IU]/mL 0-9 [facility] Work Phone: Comment on above: Negative <5 Equivoca l 5 - 9 Positive >9 Serum Areli-1 antibody assay (u nits/volume)on 03-05-2022 Areli-1 extractable nuclear Ab Qn (S) <0.2 AI 0.0-0.9 [facility] Work Phone: Serum Scl-70 extractable nuc lear antibody assay (units/volume)on 03-05-2022 SCL-70 extractable nuclear Ab Qn (S) <0.2 AI 0.0-0.9 [facility] Work Phone: Serum Ferrell extractable nucl ear antibody detectionon 03-05-2022 Ferrell extractable nuclear Ab Ql (S) <0.2 AI 0.0-0.9 [facility] Work Phone: Serum nbmpa-[id number] measu rement by electrophoresison 03-05-2022 Alpha 1 globulin Elph [Mass/Vol] 0.2 g/dL 0.0-0.4 [facility] Work Phone: Alpha 1 globulin Elph [Mass/Vol] 0.7 g/dL 0.4-1.0 [facility] Work Phone: [phone] Serum classic neutrophil cyt oplasmic antibody assay (units/volume)on 03-05-2022 Neutrophil cytoplasmic Ab.classic Qn (S) <1:20 titer Neg:<1:20 [facility] Work Phone: [phone] Serum globulin measurement ( mass/volume)on 03-05-2022 Globulin (S) [Mass/Vol] 3.1 g/dL 2.2-3.9 [facility] Work Phone: Serum or plasma C reactive p rotein measurement (mass/volume)on 03-05-2022 CRP [Mass/Vol] mg/L 0.0-3.0 [facility] Work Phone: Comment on above: C-Reactive Protein ( CRP) provides useful information for thediagnosis, therapy and monitoring of inflammatory processesand associated diseases. For the evaluation of Relative Riskfor Cardiovascular Disease, a High Sensitivity CRP (HSCRP)should be ordered. Serum or plasma IgA measurem ent (mass/volume)on 03-05-2022 IgA [Mass/Vol] 263 mg/dL 87-352 [facility] Work Phone: Serum or plasma IgG measurem ent (mass/volume)on 03-05-2022 IgG [Mass/Vol] 1132 mg/dL 586-1602 [facility] Work Phone: [phone] Serum or plasma IgM measurem ent (mass/volume)on 03-05-2022 IgM [Mass/Vol] 109 mg/dL 26-217 [facility] Work Phone: Serum or plasma albumin arielle urement (mass/volume)on 03-05-2022 Albumin [Mass/Vol] 3.9 g/dL 3.2-5.0 [facility] Work Phone: [phone] Serum or plasma albumin/glob ulin mass ratioon 03-05-2022 Albumin/Globulin [Mass ratio] 1.1 {ratio} 0.9-2.4 [facility] Work Phone: [phone] Serum or plasma beta globuli n measurement by electrophoresis (mass/volume)on 03-05-2022 Beta globulin Elph [Mass/Vol] 1.1 g/dL 0.7-1.3 [facility] Work Phone: Serum or plasma calcium arielle urement (mass/volume)on 03-05-2022 Calcium [Mass/Vol] 8.8 mg/dL 8.5-10.1 [facility] Work Phone: Serum or plasma creatinine m easurement (mass/volume)on 03-05-2022 Creatinine [Mass/Vol] 0.56 mg/dL 0.55-1.02 [facility] Work Phone: Comment on above: The validity of the calculated GFR & GFRAA in patients over 70 years has not been determined. Clinical correlation is essential. Serum or plasma cytomegalovi mike (CMV) IgG antibody assay (units/volume)on 03-05-2022 CMV IgG Qn > 10.00 U/mL 0.00-0.59 [facility] Work Phone: Comment on above: Negative <0.60 Equiv ocal 0.60 - 0.69 Positive >0.69 Serum or plasma cytomegalovi mike (CMV) IgM antibody assay (units/volume)on 03-05-2022 CMV IgM Qn < 30.0 AU/mL 0.0-29.9 [facility] Work Phone: Comment on above: Negative <30.0 Equiv ocal 30.0 - 34.9 Positive >34.9A positive result is generally indicative of acuteinfection, reactivation or persistent IgM production.Performed at: [employer] [facility] [id number] Director: Almas Saavedra PhD, Phone: [phone] at: [facility] [id number] Director: Jose Claros MD, Phone: [phone] Serum or plasma gamma globul in measurement by electrophoresis (mass/volume)on 03-05-2022 Gamma globulin Elph [Mass/Vol] 1.1 g/dL 0.4-1.8 [facility] Work Phone: Serum or plasma immunoelectr ophoresis interpretation (nominal result)on 03-05-2022 Interpretation IEP [Interp] Comment . [facility] Work Phone: Comment on above: No monoclonality det ected. Serum or plasma urea nitroge n measurement (mass/volume)on 03-05-2022 Urea nitrogen [Mass/Vol] 19 mg/dL 7-18 [facility] Work Phone: Serum perinuclear neutrophil cytoplasmic antibody titer by immunofluorescenceon 03-05-2022 Neutrophil cytoplasmic Ab.perinuclear IF (S) [Titer] <1:20 titer Neg:<1:20 [facility] Work Phone: Comment on above: The [...] only by EIA. Ref. AM J Clin [id number];111:[id number]. Serum tissue transglutaminas e IgA antibody assay (units/volume)on 03-05-2022 tTG IgA Qn (S) <2 U/mL 0-3 [facility] Work Phone: Comment on above: Negative 0 - 3 Weak Positive 4 - 10 Positive >10 Tissue Transglutaminase (tTG) has been identified as the endomysial antigen. Studies have demonstr- ated that endomysial IgA antibodies have over 99% specificity for gluten sensitive enteropathy. Thin prep Papanicolaou smear with manual screeningon 03-05-2022 Thin prep Papanicolaou smear with manual screening 24 U/L 15-37 [facility] Work Phone: [phone] Thin prep Papanicolaou smear with manual screening 6 5-15 [facility] Work Phone: [phone] Thin prep Papanicolaou smear with manual screening 150 U/L 84-246 [facility] Work Phone: [phone] Thin prep Papanicolaou smear with manual screening 1.4 0.7-1.7 [facility] Work Phone: Total protein bloodon 2021 Protein [Mass/Vol] 7.2 g/dL 6.0-8.5 [facility] Work Phone: [phone] Panel Informationon 03-25 -2022 Stool Calprotectin 61 ug/g 0-120 [facility] Work Phone: Comment on above: Concentration Interp retation Follow-Up<16 - 50 ug/g Normal None>50 -120 ug/g Borderline Re-evaluate in 4-6 weeks >120 ug/g Abnormal Repeat as clinically indicatedPerformed at: [employer] [address] [id number] Director: Jose Claros MD, Phone: [phone] HIV 1 and HIV-2 antibody ass ay with HIV-1 p24 antigen detectionon 11-20-2021 HIV 1+2 Ab+HIV1 p24 Ag IA Ql Non-Reactive Nonreactive [facility] Work Phone: No Panel Informationon 11-20 Bordetella pertussis IgG Antibody 1.92 index 0.00-0.94 [facility] Work Phone: Comment on above: Negative <0.95 Equiv ocal 0.95 - 1.04 Positive >1.04Performed at: [facility] [id number] Director: Almas Saavedra PhD, Phone: [phone] at: [facility] [address] [id number] Director: Jose Claros MD, Phone: [phone] Hepatitis A IgM Antibody Negative Negative [facility] Work Phone: Hepatitis B Core IgM Antibody Negative Negative [facility] Work Phone: Hepatitis C Antibody (EIA) <0.1 s/co ratio 0.0-0.9 [facility] Work Phone: Comment on above: Negative: < 0.8 Inde terminate: 0.8 - 0.9 Positive: > 0.9 The CDC recommends that a positive HCV antibody result be followed up with a HCV Nucleic Acid Amplification test (646368).Effective December 29, 2021 Hepatitis Panel (4) will be made non-orderable. [facility] offers order code [id number] Acute Hepatitis. Rubella IgG Antibody Reactive Nonreactive [facility] Work Phone: Comment on above: Antibody Results Int erpretation of Immune Status Non Reactive Presumed Non-Immune Equivocal Equivocal Reactive Presumed Immune Qualitative QuantiFERON-TB g old in tube teston 11-20-2021 M. tuberculosis tuberculin stim IFN-g Ql (Bld) 0.72 IU/mL . [facility] Work Phone: Serum Varicella zoster virus IgG antibody assay by immunoassay (units/volume)on 11-20-2021 VZV IgG IA Qn (S) 314 index Immune >165 [facility] Work Phone: [phone] Comment on above: Negative <135 Equivo mario 135 - 165 Positive >165A positive result generally indicates exposure to thepathogen or administration of specific immunoglobulins,but it is not indication of active infection or stageof disease. Serum mumps virus IgM antibo dy assay (units/volume)on 11-20-2021 MuV IgM Qn (S) < 0.80 AU 0.00-0.79 [facility] Work Phone: [phone] Comment on above: Negative < 0.80 Bord giovani 0.80 - 1.20 Positive > 1.20Note: The presence of IgM specific antibody should beinterpreted in conjunction with the patient's clinicalhistory and exposure risk when an acute infection issuspected. Serum or plasma hepatitis B virus surface antigen detection by immunoassayon 11-20-2021 HBV surface Ag IA Ql Negative Negative [facility] Work Phone: Thin prep Papanicolaou smear with manual screeningon 11-20-2021 Thin prep Papanicolaou smear with manual screening Comment . [facility] Work Phone: [phone] Comment on above: The QuantiFERON-TB G old Plus result is determined bysubtracting the Nil value from either TB antigen (Ag) tube.The mitogen tube serves as a control for the test. Thin prep Papanicolaou smear with manual screening 0.44 IU/mL . [facility] Work Phone: [phone] Thin prep Papanicolaou smear with manual screening 0.08 IU/mL . [facility] Work Phone: [phone] Thin prep Papanicolaou smear with manual screening > 10.00 IU/mL . [facility] Work Phone: Thin prep Papanicolaou smear with manual screening Positive Negative [facility] Work Phone: Comment on above: The [...] Auto (Unsp spec) [#/Vol] 2.55 10*3/uL 0.83-4.51 [facility] Work Phone: Basophil percentageon 2020 Bilirubin [Mass/Vol] 0.20 mg/dL 0.20-1.00 [facility] Work Phone: Comment on above: For patients on eltr ombopag therapy, use of Dimension [place] TBIL is not recommended. Chloride [Moles/Vol] 106 mmol/L 98-107 [facility] Work Phone: Eosinophils/100 WBC (Bld) 1.7 % 0-5 [facility] Work Phone: Glucose [Mass/Vol] 104 mg/dL 74-106 [facility] Work Phone: Comment on above: Fasting Glucose resu lt from 100 to 125 mg/dL suggests IMPAIRED HOMEOSTASIS per A.D.A. criteria.Please note revised GLUCOSE reference range effective 2017. Neutrophils (Bld) [#/Vol] 2.9 10*3/uL 2.0-7.7 [facility] Work Phone: Potassium [Moles/Vol] 3.8 mmol/L 3.5-5.1 [facility] Work Phone: [phone] Protein [Mass/Vol] 7.9 g/dL 6.4-8.2 [facility] Work Phone: Sodium [Moles/Vol] 136 mmol/L 136-145 [facility] Work Phone: [phone] WBC (Bld) [#/Vol] 6.0 10*3/uL 4.4-11.0 [facility] Work Phone: [phone] Blood erythrocytes count (nu mber/volume)on 07-28-2021 RBC (Bld) [#/Vol] 3.79 10*6/uL 4.2-5.4 [facility] Work Phone: [phone] Blood hemoglobin measurement (mass/volume)on 07-28-2021 Hemoglobin (Bld) [Mass/Vol] 11.7 g/dL 12.0-15.0 [facility] Work Phone: [phone] Blood lymphocytes/100 leukoc yteson 07-28-2021 Lymphocytes/100 WBC (Bld) 42.2 % 19-41 [facility] Work Phone: [phone] Blood monocytes/100 leukocyt eson 07-28-2021 Monocytes/100 WBC (Bld) 6.8 % 0-10 [facility] Work Phone: [phone] Blood platelet mean volumeon 07-28-2021 Platelet mean volume (Bld) [Entitic vol] 11.0 fL 6.2-12.0 [facility] Work Phone: [phone] Determination of erythrocyte mean corpuscular volume (MCV)on 07-28-2021 MCV (RBC) [Entitic vol] 92.1 fL 81-99 [facility] Work Phone: [phone] Erythrocyte sedimentation ra kushal 07-28-2021 ESR (Bld) [Velocity] 22 mm/h 0-30 [facility] Work Phone: [phone] Hematocrit Auto (Bld) [Volum e fraction]on 07-28-2021 Hematocrit (Bld) [Volume fraction] 34.9 % 37-47 [facility] Work Phone: [phone] Laboratory - Chemistry and C hemistry - challengeon 07-28-2021 ALP [Catalytic activity/Vol] 42 U/L 45-117 [facility] Work Phone: [phone] ALT [Catalytic activity/Vol] 76 U/L 13-56 [facility] Work Phone: [phone] CO2 [Moles/Vol] 24.0 mmol/L 21.0-32.0 [facility] Work Phone: [phone] Globulin (S) [Mass/Vol] 4.0 g/dL 2.2-4.2 [facility] Work Phone: [phone] Urea nitrogen/Creatinine [Mass ratio] 22.3 mg/mg 10-20 [facility] Work Phone: [phone] Laboratory - Hematology and Cell countson 07-28-2021 Basophils/100 WBC (Unsp spec) 0.7 % 0-1 [facility] Work Phone: [phone] Erythrocyte distribution width (RBC) [Entitic vol] 41.0 fL 35.1-43.9 [facility] Work Phone: [phone] Erythrocyte distribution width (RBC) [Ratio] 12.0 % 11.6-14.6 [facility] Work Phone: [phone] Immature granulocytes/100 WBC (Bld) 0.200 % 0.0-0.9 [facility] Work Phone: [phone] Comment on above: IG% - Immature Granu locytes (promyelocytes, myelocytes and metamyelocytes) > 1% indicates that a LEFT SHIFT is Present. MCH (RBC) [Entitic mass] 30.9 pg 27.0-32.0 [facility] Work Phone: [phone] Neutrophils/100 WBC (Bld) 48.4 % 47-70 [facility] Work Phone: [phone] Nucleated RBC/100 WBC (Bld) [Ratio] 0 % 0-5 [facility] Work Phone: [phone] MCHC Auto (RBC) [Mass/Vol]on 07-28-2021 MCHC (RBC) [Mass/Vol] 33.5 g/dL 32-36 [facility] Work Phone: [phone] No Panel Informationon 07-28 Estimated GFR (MDRD) Amer 146 mL/min >60 [facility] Work Phone: Comment on above: GFR Calc Estimated GFR (MDRD) Non-Af Amer 121 mL/min >60 [facility] Work Phone: Comment on above: Non- GFR Calc Miscellaneous Test See comment [facility] Work Phone: Comment on above: Scanned image report available in EMR Platelets bldon 07-28-2021 Platelets (Bld) [#/Vol] 262 10*3/uL 150-450 [facility] Work Phone: Serum or plasma C reactive p rotein measurement (mass/volume)on 07-28-2021 CRP [Mass/Vol] mg/L 0.0-3.0 [facility] Work Phone: Comment on above: C-Reactive Protein ( CRP) provides useful information for thediagnosis, therapy and monitoring of inflammatory processesand associated diseases. For the evaluation of Relative Riskfor Cardiovascular Disease, a High Sensitivity CRP (HSCRP)should be ordered. Serum or plasma albumin arielle urement (mass/volume)on 07-28-2021 Albumin [Mass/Vol] 3.9 g/dL 3.2-5.0 [facility] Work Phone: Serum or plasma albumin/glob ulin mass ratioon 07-28-2021 Albumin/Globulin [Mass ratio] 1.0 {ratio} 0.9-2.4 [facility] Work Phone: Serum or plasma calcium arielle urement (mass/volume)on 07-28-2021 Calcium [Mass/Vol] 9.0 mg/dL 8.5-10.1 [facility] Work Phone: Serum or plasma creatinine m easurement (mass/volume)on 07-28-2021 Creatinine [Mass/Vol] 0.63 mg/dL 0.55-1.02 [facility] Work Phone: Comment on above: The validity of the calculated GFR & GFRAA in patients over 70 years has not been determined. Clinical correlation is essential. Serum or plasma urea nitroge n measurement (mass/volume)on 07-28-2021 Urea nitrogen [Mass/Vol] 14 mg/dL 7-18 [facility] Work Phone: Thin prep Papanicolaou smear with manual screeningon 07-28-2021 Thin prep Papanicolaou smear with manual screening 30 U/L 15-37 [facility] Work Phone: Thin prep Papanicolaou smear with manual screening 6 5-15 [facility] Work Phone: Thin prep Papanicolaou smear with manual screening 207 U/L 84-246 [facility] Work Phone: CNOVon 06-30-2019 CNOV Office Visit ([place] ) -------- MARIXA GAY ([id number]) 1995 F T Date Time Provider Department [...] (HUMIRA) 40 mg/0.4 mL sykt 0.4 mL. mv,iron,kri-RU-jhhnfii cmb.24 400 mcg tab mv,iron,kri-UT-ietfqnd supplement comb. no.24 400 mcg tablet Take [...] file Gets together: Not on file Attends baptism service: Not on file Active member of [...] [J02.9] Cough [R05] Order(s):RAPID STREP TEST B/O [5395169] Order #: [id number] XR CHEST 2V FRONTAL/LAT [3459342] Order #: [id number] FUTURE GROUP A STREPTOCOCCUS BY PCR [SQGASPCR] Order #: [id number] benzonatate (TESSALON PERLE) 100 mg capsuleTake 1 capsule by mouth three times daily as needed.Disp: 30 capsuleRfl: 0 Prescriptions as of 06/30/2019 Sig: OMEPRAZOLE 20 MG DELAYED RELE* Take 20 mg by mouth once avis* ADALIMUMAB 40 MG/0.4 ML SUBCU* 0.4 mL. MV,IRON,WEP-XE-PQHNWCK SUPPLE* mv,iron,usy-SX-fdkfypm supple* BENZONATATE 100 MG CAPSULE Take 1 [...] Status:Closed by HENRIETTA AZUL on 06/30/19 Normal [facility] Group A Strep by PCRon 06-30 GAS Specimen Source Throat Swab Normal [facility] Comment on above: Performed By: #### G ASPCR #### [facility] [address] [place] [address] Group A Strep PCR Negative Normal [facility] Comment on above: Result Comment: This test was developed and its performance characteristics determined by [facility] [place] ( [facility]). It has not been cleared or approved by the FDA. [facility] is regulated under CLIA as qualified to perform high complexity testing. This test is used for clinical purposes. It should not be regarded as investigational or for research. Performed By: #### G ASPCR #### [facility] [address] [place] [id number] PROGRESSon 06-30-2019 PROGRESS HNO ID: [id number] Author: Alexandra Chau Service: ? Author Type: [...] Chau June 30, 2019 3:39 PM Normal [facility] PROGRESS HNO ID: [id number] Author: Henrietta Anderson) HAYDEE Azul Service: ? Author Type: Physician 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 Type: Progress Notes Filed: 06/30/2019 2:51 PM [...] (HUMIRA) 40 mg/0.4 mL sykt 0.4 mL. mv,iron,edl-MY-caybher cmb.24 400 mcg tab mv,iron,ime-LD-htllhtq supplement comb. no.24 400 mcg tablet Take [...] file Gets together: Not on file Attends baptism service: Not on file Active member of [...] plan of care. Henrietta Azul PA-C Normal [facility] XR CHEST 2V FRONTAL/LATon XR [...] spine noted. IMPRESSION: No acute radiographic abnormality. Hardboard Press Operator: PSCB Transcribe Date/Time: Jun 30 2019 3:57P Dictated by : BEATRIS TRAN MD This examination was interpreted and the report reviewed and electronically signed by: BEATRIS TRAN MD on Jun 30 2019 3:57PM EST [id number] Normal [facility] CNOVon 08-04-2018 CNOV Office Visit (INTMWS ) -------- MARIXA GAY ([id number]) 1995 F CHT Date Time Provider Department 08/04/18 4:20 PM OLDER, SHIRLEY (RANDALL) INTMWS During your visit today, we recorded the following information about you: Temperature Pulse Blood pressure Weight 98.2 degrees 64/minute 120/66 71.2 kg Shirley Older, TURRET LATHE TENDER.RANDALL 08/05/2018 8:35 AM Signed CC bloody stools, history of ulcerative colitis HPI Marixa Gay is a 23 year old female who presents with bloody diarrhea and fever. DIARRHEA:64813} occuring 7 to 8 stools/day on average. [...] Prozac [Fluoxetine Hcl]; Zoloft [Sertraline Hcl] MEDICATIONS mv,iron,cdl-FO-wcnynkv cmb.24 400 mcg tab mv,iron,kms-QY-tabzbqe supplement comb. no.24 400 mcg tablet Take [...] no evidence of dehydration. Patient lives in [place], here visiting family. She had notified her charter coach driver DR. Xenia Santana of current symptoms, he advised her to be evaluated in primary care. Called and spoke with Dr. Santana. Concerned about possible sepsis or C-diff. Recommended laboratory evaluation with: - CBC + DIFF - COMP METABOLIC PANEL - BLOOD CULTURE DRAW - BLOOD CULTURE DRAW - ENTERIC BACTERIAL PANEL BY PCR - C. 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 DIFFICILE PCR [SQCDPCR] Order #: [id number] URINE CULTURE [SQURCUL] Order #: [id number] FUTURE Prescriptions as of 08/04/2018 Sig: AMOXICILLIN 875 MG TABLET Take 1 tablet by mouth twice * MV,IRON,XJD-EX-ONOJGEL SUPPLE* mv,iron,ssq-XV-hyhokmt supple* ADALIMUMAB 40 MG/0.4 ML SUBCU* 0.4 mL. PREDNISONE 20 MG TABLET Take 20 mg by mouth once avis* Problem List As Of Date 08/04/2018 Noted Resolved Depressive disorder [F32.9] INVALID FOR* Diarrhea [R19.7] INVALID FOR* Iron deficiency anemia [D50.9] INVALID FOR* Left sided colitis (HCC) [K51.50] INVALID FOR* Encounter Status:Closed by SHIRLEY SZYMANSKI CNP on 08/05/18 [facility] PROGRESSon 08-04-2018 PROGRESS HNO ID: [id number] Author: Shirley Oh) Stephon Service: (none) Author Type: Nurse Practitioner Type: Progress Notes Filed: 08/05/2018 8:35 AM Note Text: CC bloody stools, history of ulcerative colitis HPI Marixa Gay is a 23 year old female who presents with bloody diarrhea and fever. DIARRHEA:65687} occuring 7 to 8 stools/day on average. [...] Prozac [Fluoxetine Hcl]; Zoloft [Sertraline Hcl] MEDICATIONS mv,iron,eow-XR-xcwzfil cmb.24 400 mcg tab mv,iron,saj-EJ-imfsleb supplement comb. no.24 400 mcg tablet Take [...] no evidence of dehydration. Patient lives in [place], here visiting family. She had notified her charter coach driver DR. Xenia Santana of current symptoms, he advised her to be evaluated in primary care. Called and spoke with Dr. Santana. Concerned about possible sepsis or C-diff. Recommended laboratory evaluation with: - CBC + DIFF - COMP METABOLIC PANEL - BLOOD CULTURE DRAW - BLOOD CULTURE DRAW - ENTERIC BACTERIAL PANEL BY PCR - C. DIFFICILE PCR - URINE CULTURE Orders sent to [facility], insurance will only cover their lab [...] Patient agreeable to treatment plan Shirley Szymanski APRN.ELECTRIC ENGINE MECHANIC Normal [facility] CNOVon 07-29-2018 CNOV Office Visit (UCWSTR ) -------- MARIXA GAY ([id number]) 1995 F [facility] Date Time Provider Department 07/29/18 10:45 AM ROLF GRUBER UCWSTR During your visit today, we recorded the [...] (HUMIRA) 40 mg/0.4 mL sykt 0.4 mL. mv,iron,csg-PY-mkubeqt cmb.24 400 mcg tab mv,iron,kuk-QZ-diyddhi supplement comb. no.24 400 mcg tablet Take [...] ADALIMUMAB 40 MG/0.4 ML SUBCU* 0.4 mL. MV,IRON,FOK-LC-YTUUXGX SUPPLE* mv,iron,hat-CW-fweoqks supple* PREDNISONE 20 MG TABLET Take 20 [...] Status:Closed by ROLF GRUBER MD on 07/29/18 [facility] PROGRESSon 07-29-2018 PROGRESS HNO ID: [id number] Author: Rolf Gruber Service: (none) Author Type: [...] (HUMIRA) 40 mg/0.4 mL sykt 0.4 mL. mv,iron,qva-DO-dqlkuml cmb.24 400 mcg tab mv,iron,cjy-DQ-zapljzo supplement comb. no.24 400 mcg tablet Take [...] persist >5 days. Rolf Gruber MD Normal [facility] Vital Signs Date Time Vital Sign Value Performing Clinician Facility 06-01-2025 14:47-0400 Body height 160.[address] Catrachito Mercedes MD Work Phone: [facility] 06-01-2025 14:44-0400 Body mass index (BMI) [Ratio] 36.5 kg/m2 Dr. Catrachito Mercedes MD Work Phone: [facility] 06-01-2025 14:44-0400 Body weight 93.[address] Catrachito Mercedes MD Work Phone: [facility] 06-01-2025 14:44-0400 Diastolic blood pressure 78 mm[Hg] Dr. Catrachito Mercedes MD Work Phone: [facility] 06-01-2025 14:44-0400 Systolic blood pressure 127 mm[Hg] Dr. Catrachito Mercedes MD Work Phone: 7(411)031-690774 [place] [address] 05-21-2025 15:12-0400 Body height 160.[address] Catrachito Mercedes MD Work Phone: 3(752)417-425480 [place] [address] 05-21-2025 15:12-0400 Body mass index (BMI) [Ratio] 36.1 kg/m2 Dr. Catrachito Mercedes MD Work Phone: 9(455)158-688780 [place] [address] 05-21-2025 15:12-0400 Body temperature 97.7 [degF] Dr. Cartachito Mercedes MD Work Phone: 0(558)857-331180 [place] [address] 05-21-2025 15:12-0400 Body weight 92.[address] Catrachito Mercedes MD Work Phone: 6(917)661-182280 [place] [address] 05-21-2025 15:12-0400 Diastolic blood pressure 80 mm[Hg] Dr. Catrachito Mercedes MD Work Phone: 9(497)151-462780 [place] [address] 05-21-2025 15:12-0400 Heart rate 87 /min Dr. Catrachito Mercedes MD Work Phone: 3(112)326-638180 [place] [address] 05-21-2025 15:12-0400 Respiratory rate 16 /min Dr. Catrachito Mercedes MD Work Phone: 6(917)836-400980 [place] [address] 05-21-2025 15:12-0400 SaO2% (BldA) [Mass fraction] 98 % Dr. Catrachito Mercedes MD Work Phone: 9(151)917-752580 [place] [address] 05-21-2025 15:12-0400 Systolic blood pressure 125 mm[Hg] Dr. Catrachito Mercedes MD Work Phone: 2(788)536-475780 [place] [address] 05-11-2025 13:52-0400 Body height 160.[address] Catrachito Mercedes MD Work Phone: 7(746)465-716080 [place] [address] 05-11-2025 13:52-0400 Body mass index (BMI) [Ratio] 35.6 kg/m2 Dr. Catrachito Mercedes MD Work Phone: 8(143)137-626380 [place] [address] 05-11-2025 13:52-0400 Body weight 91.[address] Catrachito Mercedes MD Work Phone: 3(310)893-920380 [place] [address] 05-11-2025 13:52-0400 Diastolic blood pressure 86 mm[Hg] Dr. Catrachito Mercedes MD Work Phone: 2(740)375-680880 [place] [address] 05-11-2025 13:52-0400 Systolic blood pressure 130 mm[Hg] Dr. Catrachito Mercedes MD Work Phone: 8(714)040-438280 [place] [address] 05-01-2025 14:59-0400 Body height 160.[address] Catrachito Mercedes MD Work Phone: 1(593)492-314780 [place] [address] 05-01-2025 14:59-0400 Body mass index (BMI) [Ratio] 35.5 kg/m2 Dr. Catrachito Mercedes MD Work Phone: 5(376)119-122780 [place] [address] 05-01-2025 14:59-0400 Body weight 90.[address] Catrachito Mercedes MD Work Phone: 8(507)541-502080 [place] [address] 05-01-2025 14:59-0400 Diastolic blood pressure 78 mm[Hg] Dr. Catrachito Mercedes MD Work Phone: 9(644)931-861980 [place] [address] 05-01-2025 14:59-0400 Systolic blood pressure 125 mm[Hg] Dr. Catrachito Mercedes MD Work Phone: 9(874)082-303380 [place] [address] 04-06-2025 13:00-0400 Body height 160.[address] Catrachito Mercedes MD Work Phone: 0(263)301-070980 [place] [address] 04-06-2025 13:00-0400 Body mass index (BMI) [Ratio] 34.4 kg/m2 Dr. Catrachito Mercedes MD Work Phone: 6(347)829-829780 [place] [address] 04-06-2025 13:00-0400 Body weight 88.[address] Catrachito Mercedes MD Work Phone: 0(837)777-650680 [place] [address] 04-06-2025 13:00-0400 Diastolic blood pressure 79 mm[Hg] Dr. Catrachito Mercedes MD Work Phone: 2(952)195-688503 [address] 04-06-2025 13:00-0400 Systolic blood pressure 138 mm[Hg] Dr. Catrachito Mercedes MD Work Phone: 6(923)905-312103 [address] 03-09-2025 11:36-0400 Body height 160.[address] Catrachito Mercedes MD Work Phone: 6(288)970-335980 [place] [address] 03-09-2025 11:36-0400 Body mass index (BMI) [Ratio] 33.8 kg/m2 Dr. Catrachito Mercedes MD Work Phone: 6(839)039-826480 [place] [address] 03-09-2025 11:36-0400 Body weight 86.[address] Catrachito Mercedes MD Work Phone: 8(799)278-063880 [place] [address] 03-09-2025 11:36-0400 Diastolic blood pressure 85 mm[Hg] Dr. Catrachito Mercedes MD Work Phone: 5(418)693-141380 [place] [address] 03-09-2025 11:36-0400 Systolic blood pressure 129 mm[Hg] Dr. Catrachito Mercedes MD Work Phone: 9(869)689-610180 [place] [address] 02-23-2025 11:01-0400 Body height 160.[address] Catrachito Mercedes MD Work Phone: 4(139)934-227980 [place] [address] 02-23-2025 11:00-0400 Body mass index (BMI) [Ratio] 32.9 kg/m2 Dr. Catrachito Mercedes MD Work Phone: 5(441)465-851074 [place] [address] 02-23-2025 11:00-0400 Body weight 84.[address] Catrachito Mercedes MD Work Phone: 2(968)207-526380 [place] [address] 02-23-2025 11:00-0400 Diastolic blood pressure 86 mm[Hg] Dr. Catrachito Mercedes MD Work Phone: 3(423)676-052980 [place] [address] 02-23-2025 11:00-0400 Systolic blood pressure 135 mm[Hg] Dr. Catrachito Mercedes MD Work Phone: 5(952)190-672574 [place] [address] 02-06-2025 08:17-0400 Body height 160.[address] Catrachito Mercedes MD Work Phone: 8(591)244-168680 [place] [address] 02-06-2025 08:17-0400 Body mass index (BMI) [Ratio] 32.8 kg/m2 Dr. Catrachito Mercedes MD Work Phone: 2(262)324-745780 [place] [address] 02-06-2025 08:17-0400 Body weight 84.[address] Catrachito Mercedes MD Work Phone: 3(820)515-751780 [place] [address] 02-06-2025 08:17-0400 Diastolic blood pressure 70 mm[Hg] Dr. Catrachito Mercedes MD Work Phone: 7(979)405-953180 [place] [address] 02-06-2025 08:17-0400 Systolic blood pressure 118 mm[Hg] Dr. Catrachito Mercedes MD Work Phone: 3(500)853-849280 [place] [address] 02-02-2025 15:25-0400 Body height 160.[address] Catrachito Mercedes MD Work Phone: 0(553)652-983180 [place] [address] 02-02-2025 15:25-0400 Body mass index (BMI) [Ratio] 33 kg/m2 Dr. Catrachito Mercedes MD Work Phone: 4(751)428-367380 [place] [address] 02-02-2025 15:25-0400 Body weight 84.[address] Catrachito Mercedes MD Work Phone: 6(951)861-442180 [place] [address] 02-02-2025 15:25-0400 Diastolic blood pressure 86 mm[Hg] Dr. Catrachito Mercedes MD Work Phone: 0(434)627-630580 [place] [address] 02-02-2025 15:25-0400 Systolic blood pressure 143 mm[Hg] Dr. Catrachito Mercedes MD Work Phone: 5(566)882-824380 [place] [address] 01-25-2025 14:45-0400 Body height 160.[address] Catrachito Mercedes MD Work Phone: [facility] 01-25-2025 14:45-0400 Body mass index (BMI) [Ratio] 32.6 kg/m2 Dr. Catrachito Mercedes MD Work Phone: [facility] 01-25-2025 14:45-0400 Body weight 83.[address] Catrachito Mercedes MD Work Phone: [facility] 01-25-2025 14:45-0400 Diastolic blood pressure 62 mm[Hg] Dr. Catrachito Mercedes MD Work Phone: [facility] 01-25-2025 14:45-0400 Systolic blood pressure 128 mm[Hg] Dr. Catrachito Mercedes MD Work Phone: [facility] 01-22-2025 11:18-0400 Respiratory rate 18 /min [facility] 01-22-2025 11:17-0400 Diastolic blood pressure 76 mm[Hg] [facility] 01-22-2025 11:17-0400 Heart rate 85 /min [facility] 01-22-2025 11:17-0400 SaO2% (BldA) [Mass fraction] 100 % [facility] 01-22-2025 11:17-0400 Systolic blood pressure 145 mm[Hg] [facility] 01-22-2025 11:16-0400 Body temperature 98.01 [degF] [facility] 12-11-[facility]24 14:54-0400 Body height 160 cm Denise Ordonez MD Work Phone: [facility] 12-11-2024 14:54-0400 Body mass index (BMI) [Ratio] 32.6 kg/m2 Denise Ordonez MD Work Phone: [facility] 12-11-2024 14:54-0400 Body temperature 97.3 [degF] Denise Ordonez MD Work Phone: [facility] 12-11-2024 14:54-0400 Body weight 83.46 kg Denise Ordonez MD Work Phone: [facility] 12-11-2024 14:54-0400 Diastolic blood pressure 63 mm[Hg] Denise Ordonez MD Work Phone: [facility] 12-11-2024 14:54-0400 Heart rate 73 /min Denise Ordonez MD Work Phone: [facility] 12-11-2024 14:54-0400 SaO2% (BldA) [Mass fraction] 98 % Denise Ordonez MD Work Phone: [facility] 12-11-2024 14:54-0400 Systolic blood pressure 122 mm[Hg] Denise Ordonez MD Work Phone: [facility] 11-22-2024 10:52-0400 Diastolic blood pressure 63 mm[Hg] Henrietta Herndon MD Work Phone: [facility] 11-22-2024 10:52-0400 Heart rate 77 /min Henrietta Herndon MD Work Phone: [facility] 11-22-2024 10:52-0400 Respiratory rate 16 /min Henrietta Herndon MD Work Phone: [facility] 11-22-2024 10:52-0400 SaO2% (BldA) [Mass fraction] 100 % Henrietta Herndon MD Work Phone: [facility] 11-22-2024 10:52-0400 Systolic blood pressure 107 mm[Hg] Henrietta Herndon MD Work Phone: [facility] 11-22-2024 10:22-0400 Body temperature 99.1 [degF] Henrietta Herndon MD Work Phone: [facility] 11-22-2024 08:38-0400 Body height 160 cm Henrietta Herndon MD Work Phone: [facility] 11-22-2024 08:38-0400 Body mass index (BMI) [Ratio] 33.59 kg/m2 Henrietta Herndon MD Work Phone: [facility] 11-22-2024 08:38-0400 Body weight 86 kg Henrietta Herndon MD Work Phone: [facility] 10-11-2024 10:33-0500 Diastolic blood pressure 62 mm[Hg] Henrietta Herndon MD Work Phone: [facility] 10-11-2024 10:33-0500 Heart rate 76 /min Henrietta Herndon MD Work Phone: [facility] 10-11-2024 10:33-0500 Respiratory rate 16 /min Henrietta Herndon MD Work Phone: [facility] 10-11-2024 10:33-0500 SaO2% (BldA) [Mass fraction] 99 % Henrietta Herndon MD Work Phone: [facility] 10-11-2024 10:33-0500 Systolic blood pressure 112 mm[Hg] Henrietta Herndon MD Work Phone: [facility] 10-11-2024 09:47-0500 Body temperature 97.9 [degF] Henrietta Herndon MD Work Phone: [facility] 10-11-2024 07:55-0500 Body height 160 cm Henrietta Herndon MD Work Phone: [facility] 10-11-2024 07:55-0500 Body mass index (BMI) [Ratio] 32.57 kg/m2 Henrietta Herndon MD Work Phone: [facility] 10-11-2024 07:55-0500 Body weight 83.4 kg Henrietta Herndon MD Work Phone: [facility] 08-14-2024 11:03-0500 Diastolic blood pressure 88 mm[Hg] Gavino Tristan MD Work Phone: [facility] 08-14-2024 11:03-0500 Heart rate 64 /min Gavino Tristan MD Work Phone: [facility] 08-14-2024 11:03-0500 Respiratory rate 18 /min Gavino Tristan MD Work Phone: [facility] 08-14-2024 11:03-0500 SaO2% (BldA) [Mass fraction] 99 % Gavino Tristan MD Work Phone: [facility] 08-14-2024 11:03-0500 Systolic blood pressure 143 mm[Hg] Gavino Tristan MD Work Phone: [facility] 08-14-2024 10:44-0500 Body temperature 97 [degF] Gavino Tristan MD Work Phone: [facility] 08-14-2024 10:32-0500 Body height 160 cm Gavino Tristan MD Work Phone: [facility] 08-14-2024 10:32-0500 Body mass index (BMI) [Ratio] 32.65 kg/m2 Gavino Tristan MD Work Phone: [facility] 08-14-2024 10:32-0500 Body weight 83.6 kg Gavino Tristan MD Work Phone: [facility] 07-14-2024 13:31-0500 Body height 160 cm Imelda Pollard MD Work Phone: [facility] 07-14-2024 13:31-0500 Body mass index (BMI) [Ratio] 32.31 kg/m2 Imelda Pollard MD Work Phone: [facility] 07-14-2024 13:31-0500 Body weight 82.72 kg Imelda Pollard MD Work Phone: [facility] 07-14-2024 13:31-0500 Diastolic blood pressure 79 mm[Hg] Imelda Pollard MD Work Phone: [facility] 07-14-2024 13:31-0500 Heart rate 64 /min Imelda Pollard MD Work Phone: [facility] 07-14-2024 13:31-0500 Systolic blood pressure 128 mm[Hg] Imelda Pollard MD Work Phone: [facility] 01-25-2024 11:08-0400 Body height 160 cm Sarah Espino [employer] Work Phone: [facility] 01-25-2024 11:08-0400 Body mass index (BMI) [Ratio] 31.18 kg/m2 Sarah Espino [employer] ENGINE MECH[employer]IC Work Phone: [facility] 01-25-2024 11:08-0400 Body weight 79.83 kg Sarah Espino [employer]INE [employer] Work Phone: [facility] 12-09-2023 13:23-0400 Body height 160.[address] Domo Weaver Work Phone: [facility] 12-09-2023 13:23-0400 Body mass index (BMI) [Ratio] 32.9 kg/m2 Dr. Domo Weaver Work Phone: [facility] 12-09-2023 13:23-0400 Body weight 84.[address] Domo Weaver Work Phone: [facility] 12-09-2023 13:23-0400 Diastolic blood pressure 87 mm[Hg] Dr. Domo Weaver Work Phone: [facility] 12-09-2023 13:23-0400 Systolic blood pressure 138 mm[Hg] Dr. Domo Weaver Work Phone: [facility] 10-01-2023 13:00-0500 Body temperature 97.2 [degF] No Primary Care Physician [facility] 10-01-2023 13:00-0500 Diastolic blood pressure 54 mm[Hg] No Primary Care Physician [facility] 10-01-2023 13:00-0500 Heart rate 55 /min No Primary Care Physician [facility] 10-01-2023 13:00-0500 Respiratory rate 16 /min No Primary Care Physician [facility] 10-01-2023 13:00-0500 SaO2% (BldA) [Mass fraction] 100 % No Primary Care Physician [facility] 10-01-2023 13:00-0500 Systolic blood pressure 107 mm[Hg] No Primary Care Physician [facility] 10-01-2023 11:19-0500 Body height 160.02 cm No Primary Care Physician [facility] 10-01-2023 11:19-0500 Body mass index (BMI) [Ratio] 31.6 kg/m2 No Primary Care Physician [facility] 10-01-2023 11:19-0500 Body weight 81 kg No Primary Care Physician [facility] 08-27-2023 14:07-0500 Diastolic Blood Pressure Non-Invasive 56 mm[Hg] ERNA TROTTER MD [facility] 08-27-2023 14:07-0500 Systolic Blood Pressure Non-Invasive 102 mm[Hg] ERNA TROTTER MD [facility] 08-27-2023 13:22-0500 Diastolic Blood Pressure Non-Invasive 64 mm[Hg] ERNA TROTTER MD [facility] 08-27-2023 13:22-0500 Heart rate 65 /min ERNA TROTTER MD [facility] 08-27-2023 13:22-0500 Respiratory rate 12 /min ERNA TROTTER MD [facility] 08-27-2023 13:22-0500 Systolic Blood Pressure Non-Invasive 117 mm[Hg] ERNA TROTTER MD [facility] 08-27-2023 13:01-0500 Diastolic Blood Pressure Non-Invasive 99 mm[Hg] ERNA TROTTER MD [facility] 08-27-2023 13:01-0500 Heart rate 61 /min ERNA TROTTER MD [facility] 08-27-2023 13:01-0500 Respiratory rate 15 /min ERNA TROTTER MD [facility] 08-27-2023 13:01-0500 Systolic Blood Pressure Non-Invasive 121 mm[Hg] ERNA TROTTER MD [facility] 08-27-2023 12:55-0500 Heart rate 51 /min ERNA TROTTER MD [facility] 08-27-2023 12:55-0500 Respiratory rate 19 /min ERNA TROTTER MD [facility] 08-27-2023 12:45-0500 Body temperature 97.52 [degF] ERNA TROTTER MD [facility] 08-27-2023 12:35-0500 Respiratory Rate - Anes 32 br/min ERNA TROTTER MD [facility] 08-27-2023 12:30-0500 Respiratory Rate - Anes 10 br/min ERNA TROTTER MD [facility] 08-27-2023 12:25-0500 Respiratory Rate - Anes 10 br/min ERNA TROTTER MD [facility] 08-27-2023 10:13-0500 Body height 160 cm ERNA TROTTER MD [facility] 08-27-2023 10:13-0500 Body temperature 97.52 [degF] ERNA TROTTER MD [facility] 08-27-2023 10:13-0500 Body weight 75 kg ERNA TROTTER MD [facility] 08-27-2023 10:13-0500 Heart rate 63 /min ERNA TROTTER MD [facility] 08-13-2023 07:38-0500 Blood Pressure Location ERNA TROTTER MD [facility] 08-13-2023 07:38-0500 Body height 160 cm ERNA TROTTER MD [facility] 08-13-2023 07:38-0500 Body weight 79.5 kg ERNA TROTTER MD [facility] 08-13-2023 07:38-0500 Body weight 31.05 kg/m2 ERNA TROTTER MD [facility] 08-13-2023 07:38-0500 Diastolic Blood Pressure Non-Invasive 64 mm[Hg] ERNA TROTTER MD [facility] 08-13-2023 07:38-0500 Heart rate 78 /min ERNA TROTTER MD [facility] 08-13-2023 07:38-0500 Respiratory rate 20 /min ERNA TROTTER MD [facility] 08-13-2023 07:38-0500 Systolic Blood Pressure Non-Invasive 110 mm[Hg] ERNA TROTTER MD [facility] 04-10-2022 14:39-0400 Body temperature 97.1 [degF] No Primary Care Physician [facility] Work Phone: 04-10-2022 14:39-0400 Diastolic blood pressure 61 mm[Hg] No Primary Care Physician [facility] Work Phone: 04-10-2022 14:39-0400 Heart rate 54 /min No Primary Care Physician [facility] Work Phone: 04-10-2022 14:39-0400 Respiratory rate 16 /min No Primary Care Physician [facility] Work Phone: 04-10-2022 14:39-0400 SaO2% (BldA) [Mass fraction] 99 % No Primary Care Physician [facility] Work Phone: 04-10-2022 14:39-0400 Systolic blood pressure 115 mm[Hg] No Primary Care Physician [facility] Work Phone: 04-10-2022 12:44-0400 Body height 160.02 cm No Primary Care Physician [facility] Work Phone: 04-10-2022 12:44-0400 Body mass index (BMI) [Ratio] 26.5 kg/m2 No Primary Care Physician [facility] Work Phone: 04-10-2022 12:44-0400 Body weight 68.03 kg No Primary Care Physician [facility] Work Phone: 03-05-2022 15:37-0400 Body height 160.02 cm No Primary Care Physician [facility] Work Phone: 03-05-2022 15:37-0400 Body mass index (BMI) [Ratio] 27.3 kg/m2 No Primary Care Physician [facility] Work Phone: 03-05-2022 15:37-0400 Body weight 69.85 kg No Primary Care Physician [facility] Work Phone: 03-05-2022 15:37-0400 Diastolic blood pressure 70 mm[Hg] No Primary Care Physician [facility] Work Phone: 03-05-2022 15:37-0400 Heart rate 65 /min No Primary Care Physician [facility] Work Phone: 03-05-2022 15:37-0400 SaO2% (BldA) [Mass fraction] 98 % No Primary Care Physician [facility] Work Phone: 03-05-2022 15:37-0400 Systolic blood pressure 123 mm[Hg] No Primary Care Physician [facility] Work Phone: Encounters Encounter Date Encounter Type Care Provider Facility Start: 06-15-2025 ambulatory Out of Town Doctor Poppy dey:[facility] Start: 06-01-2025 End: 06-01-[address] Marcia Yen DO -[facility] Work Phone: Start: 06-01-2025 End: 06-01-[address] Catrachito Mercedes MD Work Phone: -[facility] Start: 05-21-2025 End: 05-21-[address] Catrachito Mercedes MD Work Phone: -[facility] Start: 05-21-2025 End: 05-21-2025 Patient encounter procedure Marcia MEZA -[facility] Work Phone: Start: 05-18-2025 End: 05-18-2025 ambulatory DENISE LIAN [facility] pital Start: 05-13-2025 End: 05-13-[address] Catrachito Mercedes MD Work Phone: -Laboratory Specimen Start: 05-13-2025 End: 05-13-2025 Patient encounter procedure Domo Friend DO -Laboratory Specimen Work Phone: Start: 05-12-2025 End: 05-13-[address] Catrachito Mercedes MD Work Phone: -Laboratory Start: 05-12-2025 End: 05-12-2025 Patient encounter procedure Domo Friend DO -Laboratory Work Phone: Start: 05-11-2025 End: 05-11-2025 Patient encounter procedure Iesha Lo CNM -[facility] Work Phone: Start: 05-11-2025 End: 05-12-[address] Catrachito Mercedes MD Work Phone: [facility] Start: 05-08-2025 End: 05-08-[address] PATRICK CARBAJAL MD Facility:A Start: 05-08-2025 End: 05-08-2025 ambulatory CRAMEN LUGO [facility] spital Start: 05-01-2025 End: 05-01-[address] Carmen Lugo MD -[facility] Work Phone: Start: 05-01-2025 End: 05-01-[address] Catrachito Mercedes MD Work Phone: [facility] Start: 04-20-2025 End: 04-20-2025 ambulatory CARMEN [facility] spital Start: 04-06-2025 End: 04-06-2025 Patient encounter procedure Iesha NASCIMENTO -[facility] Work Phone: Start: 04-06-2025 End: 04-06-[address] Catrachito Mercedes MD Work Phone: -[facility] Start: 03-10-2025 End: 03-10-[address] Catrachito Mercedes MD Work Phone: -Laboratory Start: 03-10-2025 End: 03-10-2025 Patient encounter procedure Domo Weaver DO -Laboratory Work Phone: Start: 03-09-2025 End: 03-09-[address] Carmen Lugo MD -[facility] Work Phone: Start: 03-09-2025 End: 03-10-[address] Catrachito Mercedes MD Work Phone: [facility] Start: 02-23-2025 End: 02-23-[address] Marcia Yen DO -[facility] Work Phone: Start: 02-23-2025 End: 02-23-[address] Catrachito Mercedes MD Work Phone: -[facility] Start: 02-06-2025 End: 02-06-2025 Patient encounter procedure Iesha Lo [facility] -[facility] Work Phone: Start: 02-06-2025 End: 02-06-[address] Catrachito Mercedes MD Work Phone: [facility] Work Phone: Start: 02-06-2025 End: 02-06-2025 ambulatory Catrachito Mercedes Facility:[facility] Start: 02-02-2025 End: 02-02-[address] Catrachito Mercedes MD Work Phone: [facility] Work Phone: Start: 02-02-2025 End: 02-02-2025 Patient encounter procedure Mary Beth Allen [facility] -[facility] Work Phone: Start: 02-02-2025 End: 02-02-2025 ambulatory Domo Weaver Facility:[facility] Start: 01-26-2025 End: 01-26-[address] Carmen Lugo MD -[facility] Work Phone: Start: 01-26-2025 End: 01-26-[address] Catrachito Mercedes MD Work Phone: [facility] Work Phone: Start: 01-25-2025 End: 01-25-2025 Patient encounter procedure Katelyn Benitez [employer] MECH[employer]IC Work Phone: [facility] Comment on above: Encounter to determi ne viability of , single or unspecified fetus (Primary Dx) Start: 01-25-2025 End: 01-25-2025 ambulatory KATELYN BENITEZ [facility] Start: 01-22-2025 End: 01-22-2025 Emergency department patient visit DENISE ORDONEZ [facility] Comment on above: Vaginal discharge (P rimary Dx) Start: 01-18-2025 End: 01-18-2025 ambulatory KATELYN BENITEZ [facility] Start: 01-11-2025 End: 01-11-2025 Patient encounter procedure Sarah Espino [employer]LECT[employer]IC ENGINE MECHANIC Work Phone: [facility] Comment on above: Encounter to determi ne viability of , single or unspecified fetus (Primary Dx) Start: 01-11-2025 End: 01-11-2025 ambulatory SARAH Billingsley SRINIVAS [facility] Start: 01-09-2025 End: 01-09-2025 ambulatory DENISE ORDONEZ [facility] Start: 01-06-2025 End: 01-06-[address] Catrachito Mercedes MD Work Phone: [facility] Work Phone: Start: 01-06-2025 End: 01-06-2025 Patient encounter procedure Domo Weaver DO -Laboratory Work Phone: Start: 01-05-2025 End: 01-06-2025 ambulatory DENISE ORDONEZ [facility] Start: 01-01-2025 End: 01-01-2025 ambulatory Domo Weaver [facility] Start: 01-01-2025 End: 01-01-2025 Patient encounter procedure Domo Weaver DO -[facility] Work Phone: Start: 12-26-2024 End: 12-26-2024 Subsequent hospital visit by physician Gavino Tristan MD Work Phone: [facility] Comment on above: Encounter for assist ed reproductive fertility cycle Start: 12-26-2024 End: 12-26-2024 ambulatory DENISE ORDONEZ [facility] Start: 12-20-2024 End: 12-20-2024 Office outpatient new 30 minutes Anabell Rogel MD Work Phone: [facility] Comment on above: Plantar wart (Primar y Dx); Dermatologic problem Start: 12-20-2024 End: 12-20-2024 ambulatory ANABELL Loza ANOOP [facility] Ambulatory Start: 12-20-2024 End: 12-20-2024 ambulatory DENISE ORDONEZ [facility] Start: 12-15-2024 End: 12-15-2024 Professional / ancillary services management [facility] [id number] [facility] Comment on above: Female infertility Start: 12-15-2024 End: 12-15-2024 ambulatory IMELDA Analilia [place] Start: 12-11-2024 End: 12-11-2024 Initial preventive medicine new pt age 18-39yrs Denise Ordonez MD Work Phone: [facility] Comment on above: Healthcare maintenan ce (Primary Dx); Hypovitaminosis D; Polycystic ovarian disease; Crohn's disease of colon without complication (Multi) Start: 12-11-2024 End: 12-11-2024 Patient encounter status Denise Ordonez MD Work Phone: [facility] Work Phone: Start: 12-11-2024 End: 12-11-2024 ambulatory DENISE ORDONEZ [facility] Start: 12-11-2024 End: 12-11-2024 Encounter for general adult medical examination without abnormal findings DENISE ORDONEZ [facility] Start: 12-04-2024 End: 12-04-2024 ambulatory IMELDA [place] Start: 11-22-2024 End: 11-22-2024 Subsequent hospital visit by physician Henrietta Herndon MD Work Phone: [facility] Comment on above: Encounter for assist ed reproductive fertility cycle Start: 11-22-2024 End: 11-22-2024 ambulatory HENRIETTA HERNDON [facility] Start: 11-21-2024 End: 11-21-2024 ambulatory DENISE [facility] Start: 11-21-2024 End: 11-21-2024 Encounter for blood typing [facility] Start: 11-20-2024 End: 11-20-2024 Patient encounter status [facility] Work Phone: Start: 11-20-2024 End: 11-20-2024 Professional / ancillary services management Mac [id number] [facility] Comment on above: Fertility testing (P rimary Dx); Female infertility; Screening for diabetes mellitus; Encounter for Rh blood typing; Screening for STDs (sexually transmitted diseases); Screening for thyroid disorder Start: 11-20-2024 End: 11-20-2024 ambulatory ALEJANDRA Sargent [facility] Start: 11-20-2024 End: 11-20-2024 Encounter for blood typing ALEJANDRA Sargent [facility] Start: 11-18-2024 End: 11-18-2024 Professional / ancillary services management Mac [id number] [facility] Comment on above: Female infertility Start: 11-18-2024 End: 11-18-2024 ambulatory ALEJANDRA D [facility] Start: 11-16-2024 End: 11-16-2024 Professional / ancillary services management Mac [id number] [facility] Comment on above: Female infertility Start: 11-16-2024 End: 11-16-2024 ambulatory ALEJANDRA D [facility] Start: 11-14-2024 End: 11-14-2024 Professional / ancillary services management Mac [id number] [facility] Comment on above: Female infertility Start: 11-14-2024 End: 11-14-2024 ambulatory ALEJANDRA Sargent [facility] Start: 11-08-2024 End: 11-08-2024 Professional / ancillary services management Mac [id number] [facility] Comment on above: Female infertility Start: 11-08-2024 End: 11-08-2024 ambulatory ALEJANDRA Sargent [facility] Start: 10-11-2024 End: 10-11-2024 Subsequent hospital visit by physician Henrietta Herndon MD Work Phone: [facility] Comment on above: Encounter for assist ed reproductive fertility cycle Start: 10-11-2024 End: 10-11-2024 ambulatory HENRIETTA HERNDON [facility] Start: 10-10-2024 End: 10-10-2024 ambulatory IMELDA [place] Start: 10-09-2024 End: 10-09-2024 Professional / ancillary services management Mac [id number] [facility] Comment on above: Female infertility Start: 10-09-2024 End: 10-09-2024 ambulatory ALEJANDRA Sargent [facility] Start: 10-08-2024 End: 10-08-2024 Professional / ancillary services management Mac [id number] [facility] Comment on above: Female infertility Start: 10-08-2024 End: 10-08-2024 ambulatory ALEJANDRA Sargent [facility] Start: 10-07-2024 End: 10-07-2024 Professional / ancillary services management Mac [id number] [facility] Comment on above: Female infertility Start: 10-07-2024 End: 10-07-2024 ambulatory ALEJANDRA Sargent [facility] Start: 10-05-2024 End: 10-05-2024 Professional / ancillary services management Mac [id number] [facility] Comment on above: Female infertility Start: 10-05-2024 End: 10-05-2024 ambulatory ALEJANDRA Sargent [facility] Start: 10-03-2024 End: 10-03-2024 ambulatory IMELDA Billingsley [place] Start: 09-29-2024 End: 09-29-2024 ambulatory MARCIA Sargent [facility] Ambulatory Start: 09-27-2024 End: 09-27-2024 Professional / ancillary services management Mac [id number] [facility] Comment on above: Arrived Female infertility Start: 09-27-2024 End: 09-27-2024 ambulatory ALEJANDRA Sargent [facility] Start: 09-19-2024 End: 09-19-2024 ambulatory [facility] Ambulatory Start: 09-15-2024 End: 09-15-2024 ambulatory [facility] Ambulatory Start: 09-15-2024 End: 09-15-2024 Encounter for general adult medical examination without abnormal findings [facility] Ambulatory Start: 08-14-2024 End: 08-14-2024 Subsequent hospital visit by physician Gavino Tristan MD Work Phone: [facility] Comment on above: Endometritis (Primar y Dx); Fertility testing Start: 08-14-2024 End: 08-14-2024 ambulatory GAVINO TRISTAN [facility] Start: 07-24-2024 ambulatory Nastaran Mago Facilit y:[facility] Start: 07-14-2024 End: 07-14-2024 Patient encounter procedure Imelda Pollard MD Work Phone: [facility] Comment on above: Fertility testing (P rimary Dx); Encounter for preprocedural laboratory examination; Female fertility problem [N97.9] Start: 07-14-2024 End: 07-14-2024 Patient encounter status Imelda Pollard MD Work Phone: [facility] Work Phone: Start: 07-14-2024 End: 07-14-2024 ambulatory IMELDA GALLEGOSAmarilis [facility] Start: 07-14-2024 End: 07-14-2024 Encounter for preprocedural laboratory examination IMELDA POLLARD [facility] Start: 07-12-2024 End: 07-12-2024 ambulatory Nastaran Mago Facility:[facility] Start: 06-29-2024 End: 06-29-2024 ambulatory Nastaran Mago Facility:[facility] Start: 06-24-2024 End: 06-24-2024 ambulatory Nastaran Mago Facility:[facility] Start: 01-25-2024 End: 01-25-2024 Telemedicine consultation with patient Sarah Espino JUDY-RANDALL Work Phone: [facility] Comment on above: Female infertility ( Primary Dx); Endometriosis Start: 12-11-2023 End: 12-11-[address] Domo Weaver Work Phone: [facility] Work Phone: Start: 12-11-2023 End: 12-11-[address] Domo Weaver Work Phone: [facility]-Laboratory, Specimen Work Phone: Start: 12-09-2023 End: 12-09-[address] Domo Weaver Work Phone: [facility] Work Phone: Start: 12-09-2023 End: 12-09-[address] Domo Weaver Work Phone: [facility]-Laboratory, Specimen Work Phone: Start: 12-09-2023 End: 12-09-[address] Domo Weaver Work Phone: [facility] Work Phone: Start: 11-25-2023 End: 11-26-2023 ambulatory CATRACHITO MERCEDES MD Facility:A Start: 11-06-2023 End: 11-06-2023 ambulatory No Primary Care Physician [facility] Work Phone: Start: 11-06-2023 End: 11-06-2023 Patient encounter procedure No Primary Care Physician [facility]-Laboratory Work Phone: Start: 10-01-2023 Non-patient / Non-visit No Primary Care Physician [facility] Start: 10-01-2023 End: 10-01-2023 Admission to same day surgery center No Primary Care Physician [facility]-Endoscopy Work Phone: Start: 10-01-2023 End: 10-01-2023 ambulatory No Primary Care Physician [facility] Work Phone: Start: 08-27-2023 End: 08-27-2023 ambulatory ERNA TROTTER MD Facility:B Start: 08-27-2023 End: 08-27-2023 SAME DAY STAY ERNA TROTTER MD [facility] Start: 08-13-2023 End: 08-14-2023 ambulatory ERNA TROTTER MD Facility:[facility] Start: 08-13-2023 End: 08-13-2023 Admission to [facility] ERNA TROTTER MD [facility] Start: 08-07-2023 End: 08-07-2023 ambulatory No Primary Care Physician [facility] Work Phone: Start: 08-07-2023 End: 08-07-2023 Patient encounter procedure No Primary Care Physician [facility]-Laboratory, Specimen Work Phone: Start: 08-03-2023 End: 08-03-2023 ambulatory No Primary Care Physician [facility] Work Phone: Start: 08-03-2023 End: 08-03-2023 Patient encounter procedure No Primary Care Physician [facility] Gastroenterology Work Phone: Start: 07-29-2023 End: 07-30-2023 ambulatory ERNA TROTTER MD Facility:A Start: 04-20-2023 End: 04-25-2023 ambulatory CATRACHITO MERCEDES MD Facility:A Start: 04-09-2023 Telephone encounter Landy blankenship [employer]RET [employer] TENDER - ELECTRIC ENGINE MECHANIC Work Phone: [facility] Internal Medicine Comment on above: NO SURPRISE ACT New Patient Start: 04-05-2023 Telephone encounter Galina diaz MD Work Phone: [facility] Internal Medicine Comment on above: Appointment Request Start: 04-10-2022 End: 04-10-2022 Patient encounter procedure No Primary Care Physician [facility]-Medical Out Start: 03-05-2022 End: 03-05-2022 Patient encounter procedure No Primary Care Physician [facility]-Laboratory Start: 03-05-2022 End: 03-05-2022 Patient encounter procedure No Primary Care Physician [facility] Gastroenterology Start: 11-26-2021 End: 11-26-2021 Patient encounter procedure No Primary Care Physician [facility]-Radiology, [place] Start: 11-21-2021 End: 11-21-2021 Patient encounter procedure No Primary Care Physician [facility]-Laboratory, Specimen Start: 11-20-2021 End: 11-20-2021 Patient encounter procedure No Primary Care Physician [facility]-Laboratory Start: 10-22-2021 End: 10-22-2021 Patient encounter procedure No Primary Care Physician [facility] Gastro Virtual Start: 07-28-2021 Patient encounter procedure No Primary Care Physician [facility]-Laboratory Start: 07-28-2021 End: 07-28-2021 Patient encounter procedure No Primary Care Physician [facility] Gastroenterology Procedures Date Procedure Procedure Detail Performing Clinician Start: 05-13-[address] Luda Mercedes MD Work Phone: Start: 05-13-2025 End: 05-13-2025 Giardia [address] antigen assay Dr[address] Tracee Mercedes MD Work Phone: Start: 05-13-[address] Catrachito Mercedes MD Work Phone: Start: 05-13-[address] Catrachito Mercedes MD Work Phone: Start: 05-13-2025 Ova OR parasites identification Dr. Luda Mercedes MD Work Phone: Start: 05-13-2025 Iadna-dna/rna gi pthgn multiplex probe tq 6-11 Dr. Catrachito Mercedes MD Work Phone: Start: 05-12-[address] Catrachito Mercedes MD Work Phone: Comment on above: Test Ordered: [id number] Ustekinumab Drug + AntibodyUstekinumab 8.9 ug/mL ES Reference Range: .Quantitation Limit: <0.1 [...] antibodies occurred in 4-6% of patients.(6)References:1. Martell FRIEDMAN et al. Gastroenterology 2016;150(4):S408.2. Martell Matt et al. P007 Exposure-Response to SC Ustekinumab in Moderate - Severe Crohn's Disease: Results from the IM-UNITI Maintenance Study. Advances in AIBD. May 2017.3. Ariana R, et al. Clin Gastroenterol Hepatol 2017;15: 7077-9789.4. Odiloning SP, et al. Br J Dermatol;2015:173;855-857.5. Grover H, et al. PLOS ONE DOI;10:1371/journal.pone.9131303.6. Allan L, et al. Br J Dermatol 2014;170:261-273.These tests were developed and their performancecharacteristics determined by [facility]. They have not beencleared or approved by the Food and Drug Administration.However, both drug and anti-drug antibody assays have beendeveloped and validated in accordance with FDA Guidance forIndustry documents: Bioanalytical Method Validation (2013)and Assay Development and Validation for ImmunogenicityTesting of Therapeutic Protein Products (2016).Performed at: [facility] [address] [id number] Director: Michelle Acharya MD, Phone: [phone] at: [facility] [address] [id number] Director: Almas Saavedra PhD, Phone: [phone] Start: 03-10-2025 Total iron binding capacity measurement [...] HCV Quant by PCR testing - HCVPCR #[id number] Non Reactive: < 0.8 Equivocal: >/= 0.8 to < 1.0 Reactive: >/= 1.0The [facility] requires that a reactive/equivocal HCV antibody result be sent out for confirmation. HCV Quant by PCR testing. Start: 02-06-[address] Catrachito Mercedes MD Work Phone: Comment on above: Antibody Result: InterpretationNon-React carmen: Non-ImmuneReactive: ImmuneThe following results were obtained with the [employer] Rubella IgG assay. Results from assays of other manufacturers cannot be used interchangeably. Start: 02-06-2025 Serologic test for syphilis Dr. Catrachito Mercedes MD Work Phone: Start: 02-02-[address] Catrachito Mercedes MD Work Phone: Comment on above: Test Ordered: [id number] Ustekinumab Drug + AntibodyUstekinumab 3.9 ug/mL ES [...] antibodies occurred in 4-6% of patients.(6)References:1. Martell MattJ, et al. Gastroenterology 2016;150(4):S408.2. Martell Matt et al. P007 Exposure-Response to SC Ustekinumab in Moderate - Severe Crohn's Disease: Results from the IM-UNITI Maintenance Study. Advances in AIBD. May 2017.3. Ariana R, et al. Clin Gastroenterol Hepatol 2017;15: 8281-8561.4. Tessa SP et al. Br J Dermatol;2015:173;855-857.5. Grover H, et al. PLOS ONE DOI;10:1371/journal.pone.9827506.6. Allan Billingsley et al. Br J Dermatol 2014;170:261-273.These tests were developed and their performancecharacteristics determined by [facility]. They have not beencleared or approved by the Food and Drug Administration.However, both drug and anti-drug antibody assays have beendeveloped and validated in accordance with FDA Guidance forIndustry documents: Bioanalytical Method Validation (2013)and Assay Development and Validation for ImmunogenicityTesting of Therapeutic Protein Products (2016).Performed at: [facility] [address] [id number] Director: Gregg Roberto MD, Phone: [phone] at: [facility] [address] [id number] Director: Almas Saavedra PhD, Phone: [phone] Start: 01-22-2025 uterus 14 wk transabdl 08/30 gestat Zane Pryor [facility] Work Phone: Start: 01-22-2025 Blood typing serologic rh (d) Zane Pryor [facility] Work Phone: Start: 01-22-2025 Comprehensive metabolic panel Zane Pryor [facility] Work Phone: Start: 01-22-2025 Smr prim src wet mount nfct agt Zane Pryor [facility] Work Phone: Start: 01-22-2025 Urnls dip stick/tablet rgnt auto w/o microscopy [facility] Work Phone: Start: 12-26-2024 Embryo transfer intrauterine Imelda pollock MD Work Phone: Start: 12-26-2024 Ultrasonic guidance intraoperative Jose Pollard MD Work Phone: Start: 12-20-2024 DESTRUCTION OF LESION Anabell Rogel MD Work Phone: Start: 12-20-2024 Lipid 1996 panel - Serum or Plasma Bill Tristan MD Work Phone: Start: 11-22-2024 Follicle puncture oocyte retrieval any method Katelyn Benitez [employer] TENDER-ELECTRIC ENGINE MECHANIC Work Phone: Start: 11-20-2024 Us pelvic nonobstetric [...] puncture oocyte retrieval any method Katelyn Benitez [employer] TENDER-ELECTRIC ENGINE MECHANIC Work Phone: Start: 10-08-2024 Us pelvic nonobstetric [...] Population) (1 - 1-dose 75+ series) [facility] Start: 2044 Zoster Vaccines (1 of 2) Zoster Vaccines (1 of 2) [facility] Start: 07-12-2034 DTaP/Tdap/Td Vaccines (2 - Tdap) DTaP/Tdap/Td Vaccines (2 - Tdap) [facility] Start: 12-20-2029 Lipid panel Lipid Panel [facility] Start: 12-20-2025 Vitamin D25-OH Vitamin D25-OH [facility] Start: 12-12-2025 Yearly Adult Physical Yearly Adult Physical [facility] Start: 06-21-2025 Procedure [facility] Start: 06-01-2025 Measurement of glucose 2 hours after glucose challenge for glucose tolerance test [facility] Start: 06-01-2025 Serologic test for syphilis [facility] Start: 06-01-2025 [facility] Start: 05-13-2025 Giardia Antigen (LIZZ) Giardia Antigen (LIZZ) [facility] Start: 05-13-2025 Ova and Parasites Ova and Parasites [facility] Start: 02-06-2025 CBC W Auto Differential panel - Blood [facility] Start: 02-06-2025 Hemoglobin A1c/Hemoglobin.total in Blood [facility] Start: 02-06-2025 Hepatitis C antibody measurement [facility] Start: 02-06-2025 Rubella IgG measurement [facility] Start: 02-06-2025 Serologic test for syphilis [facility] Start: 02-06-2025 [facility] Start: 01-25-2025 End: 01-25-2025 Patient encounter procedure 01/25/2025 2:00 PM EDT Office Visit [facility] [address] [place] [phone] Katelyn Benitez, TURRET [employer] TENDER-ELECTRIC ENGINE MECHANIC [address] [place], [place] [phone] [facility]renaangelica Hagen Madhuri Start: 01-25-2025 End: 01-25-2025 Professional / ancillary services management 01/25/2025 1:30 PM EDT Ancillary Procedure Camarenaangelica Hagen Ravinon [address] [place] [phone] Camarena Hieu Dhaliwal Start: 01-11-2025 End: 01-11-2026 US Pelvis transvaginal US OB transvaginal Imaging Routine Encounter to determine viability of , single or unspecified fetus Expected: 01/11/2025, Expires: 01/11/2026 [facility] Service Area Work Phone: Comment on above: Expected: 01/11/2025, Expires: Start: 01-10-2025 End: 01-10-2025 Patient encounter procedure 01/10/2025 9:30 AM EDT Office Visit [address] [phone] Anabell Michael MD [address] [place] [address] [facility] Start: 01-05-2025 End: 01-05-2025 Professional / ancillary services management 01/05/2025 8:30 AM EDT Ancillary Procedure [facility]renaangelica Hagen Madhuri [address] [place] [address] Camarena Hieu Dhaliwal Start: 12-26-2024 End: 12-26-2024 Patient encounter procedure 12/26/2024 11:00 AM EDT Procedure Visit Camarena Hieu Dhaliwal [address] [place] [address] Imelda Pollard MD [address] [place] [address] Nicol Ackermantuckerfaye Start: 12-20-2024 End: 12-20-2024 Patient encounter procedure [facility] Comment on above: Arrived Start: 12-15-2024 End: 12-15-2024 Professional / ancillary services management 12/15/2024 6:45 AM EDT Ancillary Procedure Nicol Hagen Madhuri [address] [place] [address] Nicol Ackermanjuanito Start: 12-11-2024 End: 12-11-2024 Patient encounter procedure 12/11/2024 2:30 PM EDT Office Visit [facility] [address] [place] [address] [place] [address] [address] [facility] [address] [place], [place] [phone] [facility] Start: 12-11-2024 End: 12-11-2025 25-hydroxyvitamin D3 [Mass/volume] in Serum or Plasma Vitamin D 25-Hydroxy,Total (for eval of Vitamin D levels) Lab Routine Hypovitaminosis D Expected: 12/11/2024 (Approximate), Expires: 12/11/2025 [facility] Work Phone: Comment on above: Expected: 12/11/2024 (Approximate), Expi res: 12/11/2025 Start: 12-11-2024 End: 12-11-2025 Lipid 1996 panel - Serum or Plasma Lipid Panel Lab Routine Healthcare maintenance Expected: 12/11/2024 (Approximate), Expires: 12/11/2025 [facility] Service Area Work Phone: Comment on above: Expected: 12/11/2024 (Approximate), Expi res: 12/11/2025 Start: 11-22-2024 End: 11-22-2024 Patient encounter procedure 11/22/2024 10:00 AM EDT Procedure Visit Camarenaangelica Hagen Madhuri [address] [place] [phone] Henrietta Herndon MD [address] [place] [address] SERGEI Dhaliwal Start: 11-20-2024 End: 11-20-2025 Blood type and Indirect antibody screen panel - Blood Type And Screen Is this order related to or an upcoming surgery? No Lab Routine Encounter for Rh blood typing Expected: 11/20/2024 (Approximate), Expires: 11/20/2025 [facility] Work Phone: Comment on above: Expected: 11/20/2024 (Approximate), Expi res: 11/20/2025 Start: 11-20-2024 End: 11-20-2025 Chlamydia trachomatis and Neisseria gonorrhoeae DNA [Identifier] in Unspecified specimen by ALEKSEY with probe detection C. trachomatis / N. gonorrhoeae, Amplified, Urogenital Lab Routine Screening for STDs (sexually transmitted diseases) Expected: 11/20/2024 (Approximate), Expires: 11/20/2025 [facility] Work Phone: Comment on above: Expected: 11/20/2024 (Approximate), Expi res: 11/20/2025 Start: 11-20-2024 End: 11-20-2025 Hemoglobin A1c/Hemoglobin.total in Blood Hemoglobin A1C Lab Routine Screening for diabetes mellitus Expected: 11/20/2024 (Approximate), Expires: 11/20/2025 [facility] Work Phone: Comment on above: Expected: 11/20/2024 (Approximate), Expi res: 11/20/2025 Start: 11-20-2024 End: 11-20-2025 Hepatitis B virus surface Ag [Presence] in Serum or Plasma by Immunoassay Hepatitis B surface antigen Lab Routine Screening for STDs (sexually transmitted diseases) Expected: 11/20/2024 (Approximate), Expires: 11/20/2025 [facility] Work Phone: Comment on above: Expected: 11/20/2024 (Approximate), Expi res: 11/20/2025 Start: 11-20-2024 End: 11-20-2025 Hepatitis C virus Ab [Presence] in Serum Hepatitis C Antibody Lab Routine Screening for STDs (sexually transmitted diseases) Expected: 11/20/2024 (Approximate), Expires: 11/20/2025 [facility] Work Phone: Comment on above: Expected: 11/20/2024 (Approximate), Expi res: 11/20/2025 Start: 11-20-2024 End: 11-20-2025 HIV 1+2 Ab+HIV1 p24 Ag [Presence] in Serum or Plasma by Immunoassay HIV 1/2 Antigen/Antibody Screen with Reflex to Confirmation Lab Routine Screening for STDs (sexually transmitted diseases) Expected: 11/20/2024 (Approximate), Expires: 11/20/2025 [facility] Work Phone: Comment on above: Expected: 11/20/2024 (Approximate), Expi res: 11/20/2025 Start: 11-20-2024 End: 11-20-2025 Lutropin [Units/volume] in Serum or Plasma Luteinizing Hormone Lab STAT Female infertility Expected: 11/20/2024 (Approximate), Expires: 11/20/2025 [facility] Work Phone: Comment on above: Expected: 11/20/2024 (Approximate), Expi res: 11/20/2025 Start: 11-20-2024 End: 11-20-2025 Progesterone [Mass/volume] in Serum or Plasma Progesterone Lab STAT Female infertility Expected: 11/20/2024 (Approximate), Expires: 11/20/2025 [facility] Service Area Work Phone: Comment on above: Expected: 11/20/2024 (Approximate), Expi res: 11/20/2025 Start: 11-20-2024 End: 11-20-2025 [facility] ANTI-MULLERIAN HORMONE ([facility]), FEMALE [facility] ANTI-[facility]ULL[facility]IAN HORMONE ([facility]), FEMALE Lab Routine Fertility testing Expected: 11/20/2024 (Approximate), Expires: 11/20/2025 [facility] Work Phone: Comment on above: Expected: 11/20/2024 (Approximate), Expi res: 11/20/2025 Start: 11-20-2024 End: 11-20-2025 Treponema pallidum IgG+IgM Ab [Presence] in Serum by Immunoassay Syphilis Screen with Reflex Lab Routine Screening for STDs (sexually transmitted diseases) Expected: 11/20/2024 (Approximate), Expires: 11/20/2025 [facility] Work Phone: Comment on above: Expected: 11/20/2024 (Approximate), Expi res: 11/20/2025 Start: 11-20-2024 End: 11-20-2025 TSH with reflex to Free T4 if abnormal TSH with reflex to Free T4 if abnormal Lab Routine Screening for thyroid disorder Expected: 11/20/2024 (Approximate), Expires: 11/20/2025 [facility] Work Phone: Comment on above: Expected: 11/20/2024 (Approximate), Expi res: 11/20/2025 Start: 11-20-2024 End: 11-20-2024 Professional / ancillary services management 11/20/2024 9:45 AM EDT Ancillary Procedure Nicol Aliciaon [address] [place] [phone] Nicol Aliciaon Start: 11-18-2024 End: 11-18-2025 Progesterone [Mass/volume] in Serum or Plasma Progesterone Lab STAT Female infertility Expected: 11/18/2024 (Approximate), Expires: 11/18/2025 [facility] Service Area Work Phone: Comment on above: Expected: 11/18/2024 (Approximate), Expi res: 11/18/2025 Start: 11-18-2024 End: 11-18-2024 Professional / ancillary services management 11/18/2024 10:00 AM EDT Ancillary Procedure [facility] [address] [place] [address] [facility] Start: 11-16-2024 End: 11-16-2024 Professional / ancillary services management 11/16/2024 7:45 AM EDT Ancillary Procedure Nicol Aliciaon [address] [place] [address] [facility] Start: 11-14-2024 End: 11-14-2025 Estradiol (E2) [Mass/volume] in Serum or Plasma Estradiol Lab STAT Female infertility Expected: 11/14/2024 (Approximate), Expires: 11/14/2025 [facility] Service Area Work Phone: Comment on above: Expected: 11/14/2024 (Approximate), Expi res: 11/14/2025 Start: 11-14-2024 End: 11-14-2024 Professional / ancillary services management 11/14/2024 7:15 AM EDT Ancillary Procedure Nicol Dhaliwal [address] [place] [address] Camarena Risdae [facility] Start: 11-08-2024 End: 11-08-2025 Estradiol (E2) [Mass/volume] in Serum or Plasma Estradiol Lab STAT Female infertility Expected: 11/08/2024 (Approximate), Expires: 11/08/2025 [facility] Service Area Work Phone: Comment on above: Expected: 11/08/2024 (Approximate), Expi res: 11/08/2025 Start: 10-31-2024 End: 10-31-2024 Social Work 10/31/2024 12:[address] [place] [phone] Jaci Licea [facility] Start: 10-27-2024 End: 10-27-2024 ambulatory 10/27/2024 8:[address] [place] [address] Marcia Kiser, TURRET LATHE TENDER-ELECTRIC ENGINE MECHANIC [address] Jannet Moura Department [place] [address] [facility] Start: 10-18-2024 End: 10-18-2024 Social Work 10/18/2024 11:[address] [place] [phone] [facility] Start: 10-13-2024 End: 10-13-2024 ambulatory 10/13/2024 8:00 AM EST [address] [place] [address] Marcia Kiser, TURRET LATHE TENDER-ELECTRIC ENGINE MECHANIC [address] Jannet [facility] Department [place] [address] [facility] Start: 10-11-2024 End: 10-11-2024 Patient encounter procedure 10/11/2024 9:15 AM EST Procedure Visit [facility]iaon [address] [place] [phone] Henrietta Herndon MD [address] [place] [address] [facility] Start: 10-08-2024 End: 10-08-2024 Professional / ancillary services management 10/08/2024 8:30 AM EST Ancillary Procedure [facility] [address] [place] [address] [facility] Start: 10-07-2024 End: 10-07-2024 Professional / ancillary services management 10/07/2024 9:00 AM EST Ancillary Procedure [facility] [address] [place] [address] [facility] Start: 10-03-2024 End: 10-03-2024 [facility] Start: 09-29-2024 End: 09-29-2024 ambulatory 09/29/2024 8:00 AM EST [address] [place] [address] Marcia Kiser, TURRET [employer]HE TENDER-ELECTRIC ENGINE MECHANIC [address] Jannet Moura Department [place] [address] [facility] Start: 09-15-2024 End: 09-15-2024 ambulatory 09/15/2024 8:[address] [place] [address] Marcia Kiser, TURRET [employer]HE TENDER-ELECTRIC ENGINE MECHANIC [address] Jannet Moura Department [place] [address] [facility] Start: 08-13-2024 End: 10-14-2024 Choriogonadotropin ( test) [Presence] in Urine POCT , urine manually resulted Point of Care Testing Routine Encounter for preprocedural laboratory examination Expected: 08/13/2024 (Approximate), Expires: 10/14/2024 [facility] Service Area Work Phone: Comment on above: Expected: 08/13/2024 (Approximate), Expi res: 10/14/2024 Start: 08-13-2024 End: 07-14-2025 Hysteroscopy diagnostic Hysteroscopy diagnostic Procedures Routine Fertility testing Expected: 08/13/2024 (Approximate), Expires: 07/14/2025 [facility] Work Phone: Comment on above: Expected: 08/13/2024 (Approximate), Expi res: 07/14/2025 Start: 04-30-2024 COVID-19 Vaccine ( season) COVID-19 Vaccine ( season) [facility] Start: 12-09-2023 Liquid based cervical cytology screening [facility] Start: 10-01-2023 Colonoscopy w/biopsy single/multiple COLONOSCOPY AND BIOPSY [facility] Start: 10-01-2023 Egd transoral biopsy single/multiple EGD BIOPSY SINGLE/MULTIPLE [facility] Start: 10-01-2023 Patient discharge [facility] Start: 08-07-2023 Protein measurement [facility] Start: 08-03-2023 Procedure [facility] Start: 05-04-2023 End: 05-04-2023 Patient encounter procedure 05/04/2023 7:50 AM EDT Office Visit [facility] Internal Medicine [address] [place] [address] Landy Blair, [employer]RET [employer] TENDER - ELECTRIC ENGINE MECHANIC [address] [facility] [place] [address] [facility] Start: 04-30-2023 COVID-19 Vaccine ( season) COVID-19 Vaccine ( season) [facility] Start: 04-30-2023 Influenza vaccination Influenza Vaccine (#1) [facility] Start: 04-10-2022 Iv infusion therapy/prophylaxis /dx 1st to 1 hr THER/PROPH/DIAG IV INF INIT [facility] Work Phone: Start: 03-05-2022 Celiac disease screen [facility] Work Phone: Start: 03-05-2022 Cytomegalovirus IgG antibody measurement [facility] Work Phone: Start: 03-05-2022 Cytomegalovirus IgM antibody assay [facility] Work Phone: Start: 03-05-2022 Immunoglobulin measurement [facility] Work Phone: Start: 03-05-2022 Serum immunofixation [facility] Work Phone: Start: 03-05-2022 [facility] Work Phone: Start: 2016 DTaP/Tdap/Td Vaccines (1 - Tdap) DTaP/Tdap/Td Vaccines (1 - Tdap) [facility] Start: 2015 Screening for malignant neoplasm of cervix [facility] Start: 2013 DTaP/Tdap/Td Vaccines (1 - Tdap) DTaP/Tdap/Td Vaccines (1 - Tdap) [facility] Start: 2013 Hepatitis B Vaccines (1 of 3 - 19+ 3-dose series) Hepatitis B Vaccines (1 of 3 - 19+ 3-dose series) [facility] Start: 2012 Hepatitis C screening Hepatitis C Screening [facility] Start: 2007 Varicella vaccination Varicella Vaccines (1 of 2 - 13+ 2-dose series) [facility] Start: 2006 Depression Screening Depression Screening [facility] Start: 1995 MMR Vaccines (1 of 1 - Standard series) MMR Vaccines (1 of 1 - Standard series) [facility] Start: 1995 Varicella vaccination Varicella Vaccines (1 of 2 - 2-dose childhood series) [facility] Start: 01-08-1995 COVID-19 Vaccine (#1) COVID-19 Vaccine (#1) [facility] Start: 1994 Cyanocobalamin vitamin b-12 Vitamin B-12 [facility] Start: 1994 Hepatitis B Vaccines (1 of 3 - 3-dose series) Hepatitis B Vaccines (1 of 3 - 3-dose series) [facility] Start: 1994 HIV screening HIV Screening [facility] Start: 1994 Lipid panel Lipid Panel [facility] Start: 1994 Screening for osteoporosis Bone Density Scan [facility] Start: 1994 TB Test TB Test [facility] Start: 1994 Vitamin D25-OH Vitamin D25-OH [facility] Start: 1994 Yearly Adult Physical Yearly Adult Physical [facility] Alanine aminotransfe rase [Enzymatic activity/volume] in Serum or Plasma [facility] Albumin [Mass/volume ] in Serum or Plasma [facility] Albumin [Moles/volum e] in Serum or Plasma [facility] Work Phone: Albumin/Globulin ratio [facility] Work Phone: Alkaline phosphatase [Enzymatic activity/volume] in Serum or Plasma [facility] Anion gap in Serum or Plasma [facility] Antibody to lupus [place] protein measurement [facility] Work Phone: Antibody to SS-A measurement [facility] Work Phone: Bilirubin, total measurement [facility] BUN/Creatinine ratio [facility] C reactive protein [Mass/volume] in Serum or Plasma [facility] Calcium [Mass/volume ] in Serum or Plasma [facility] Carbon dioxide, tota l [Moles/volume] in Central venous blood [facility] CBC W Auto Different ial panel - Blood [facility] CBC W Auto Different ial panel - Blood [facility] Centromere protein B Ab [Units/volume] in Serum [facility] Work Phone: Chlamydia deoxyribon ucleic acid detection [facility] Chlamydia deoxyribon ucleic acid detection [facility] End: 01-22-2025 Chlamydia trachomatis and Neisseria gonorrhoeae DNA [Identifier] in Unspecified specimen by ALEKSEY with probe detection [facility] Area Work Phone: Comment on above: Once (Lab) for 1 Occurrences starting until 01/22/2025 End: 10-11-2024 Choriogonadotropin ( test) [Presence] in Urine POCT , urine manually resulted Point of Care Testing Routine Once (Lab) for 1 Occurrences starting 10/11/2024 until 10/11/2024 [facility] Work Phone: Comment on above: Once (Lab) for 1 Occurrences starting until 10/11/2024 End: 11-22-2024 Choriogonadotropin ( test) [Presence] in Urine POCT , urine manually resulted Point of Care Testing Routine Once (Lab) for 1 Occurrences starting 11/22/2024 until 11/22/2024 [facility] Work Phone: Comment on above: Once (Lab) for 1 Occurrences starting until 11/22/2024 Chromatin Ab [Units/ volume] in Serum or Plasma [facility] Work Phone: Clostridioides diffi cile DNA [Presence] in Unspecified specimen by ALEKSEY with probe detection [facility] Work Phone: Colonoscopy [facility] Creatinine [Mass/vol ume] in Serum or Plasma [facility] Cytomegalovirus IgG antibody measurement [facility] Work Phone: Cytomegalovirus IgM antibody assay [facility] Work Phone: Dehydroepiandrostero ne sulfate (DHEA-S) [Mass/volume] in Serum or Plasma [facility] DNA double strand Ab [Units/volume] in Serum [facility] Work Phone: Electrophoresis: [id number] [facility] Work Phone: Electrophoresis: emiliana ma globulin [facility] Work Phone: Erythrocyte mean cor puscular volume determination [facility] Erythrocyte sedimentation rate [facility] End: 02-05-2025 Estradiol (E2) [Mass/volume] in Serum or Plasma Estradiol Lab STAT Female infertility Daily (including weekends) for 8 Occurrences starting 10/08/2024 until 02/05/2025 [facility] Service Area Work Phone: Comment on above: Daily (including weekends) for 8 Occurre nces starting 10/08/2024 until 02/05/2025 End: 01-22-2025 Extra Urine Costello Tube [facility] Work Phone: Comment on above: Once for 1 Occurrences starting 01/23/20 until 01/22/2025 Fat [Mass/mass] in Stool [facility] Fat.neutral [Presenc e] in Stool [facility] Folate [Moles/volume ] in Serum or Plasma [facility] Gastrointestinal pat hogens panel - Stool by ALEKSEY with probe detection [facility] Work Phone: Giardia lamblia antigen assay [facility] Globulin measurement [facility] Work Phone: Glucose [Mass/volume ] in Serum or Plasma [facility] Hematocrit [Volume F raction] of Blood [facility] Hemoglobin [Mass/vol ume] in Blood [facility] Hemoglobin A1c/Hemoglobin.total in Blood [facility] Hepatitis B virus sy rface Ag [Presence] in Serum [facility] Hepatitis C antibody measurement [facility] IgA [Mass/volume] in Serum or Plasma [facility] Work Phone: IgE [Units/volume] i n Serum or Plasma [facility] Work Phone: IgG [Mass/volume] in Serum or Plasma [facility] Work Phone: IgM [Mass/volume] in Serum or Plasma [facility] Work Phone: Areli-1 extractable nuc lear Ab [Units/volume] in Serum [facility] Work Phone: Lactoferrin [Presenc e] in Stool by Immunoassay [facility] Work Phone: Leukocytes [#/volume] in Blood [facility] End: 02-05-2025 Lutropin [Units/volume] in Serum or Plasma Luteinizing Hormone (LH) Lab STAT Female infertility Daily (including weekends) for 3 Occurrences starting 10/08/2024 until 02/05/2025 [facility] Work Phone: Comment on above: Daily (including weekends) for 3 Occurre nces starting 10/08/2024 until 02/05/2025 Mean corpuscular hem oglobin concentration determination [facility] Mean corpuscular hem oglobin determination [facility] Measurement of immun oglobulin A in serum specimen [facility] Work Phone: Measurement of renal function [facility] Neutrophil count [facility] Neutrophil cytoplasm ic Ab.classic [Units/volume] in Serum [facility] Work Phone: Neutrophil percent differential count [facility] Ova and parasites id entified in Unspecified specimen by Light microscopy [facility] Work Phone: Ova OR parasites identification [facility] P-ANCA measurement [facility] Work Phone: Path report.final Dx Spec [facility] Patient referral [facility] Work Phone: Platelets [#/volume] in Blood [facility] Potassium measurement [facility] Procedure [facility] Procedure [facility] Procedure [facility] Procedure [facility] End: 02-04-2025 Progesterone [Mass/volume] in Serum or Plasma Progesterone Lab STAT Female infertility Daily (including weekends) for 3 Occurrences starting 10/07/2024 until 02/04/2025 [facility] Service Area Work Phone: Comment on above: Daily (including weekends) for 3 Occurre nces starting 10/07/2024 until 02/04/2025 End: 02-05-2025 Progesterone [Mass/volume] in Serum or Plasma Progesterone Lab STAT Female infertility Daily (including weekends) for 3 Occurrences starting 10/08/2024 until 02/05/2025 [facility] Work Phone: Comment on above: Daily (including weekends) for 3 Occurre nces starting 10/08/2024 until 02/05/2025 Prolactin [Mass/volu me] in Serum or Plasma [facility] Protein electrophore sis panel - Serum or Plasma [facility] Work Phone: Protein measurement [facility] Work Phone: Protein measurement [facility] Protein measurement [facility] Red blood cell count [facility] Red cell distributio n width determination [facility] TERRENCE US Endometrial L ining Check [facility] Endometrial Lining Check Imaging Routine Female infertility 12/15/2024 7:02 AM EDT [facility] Service Area Work Phone: TERRENCE US Pelvis Limite d Follicles - Follicle Studies Performed [facility] Pelvis Limited Follicles - Follicle Studies Performed Imaging Routine Female infertility 09/27/2024 7:51 AM EST [facility] Area Work Phone: TERRENCE US Pelvis Limite d Follicles - Follicle Studies Performed [facility] US Pelvis Limited Follicles - Follicle Studies Performed Imaging Routine Female infertility 10/09/2024 9:42 AM EST [facility] Work Phone: Rubella IgG measurement [facility] [id number]-[id number] extractable n uclear Ab [Units/volume] in Serum by Immunoassay [facility] Work Phone: Serologic test for syphilis [facility] Serum chloride measurement [facility] Serum protein electrophoresis [facility] Work Phone: Ferrell extractable nu clear Ab [Presence] in Serum [facility] Work Phone: Sodium measurement [facility] Testosterone Free [Mass/volume] in Serum or Plasma [facility] Thyroid stimulating hormone measurement [facility] Tissue transglutamin ase IgA Ab [Units/volume] in Serum [facility] Work Phone: Total protein measurement [facility] Urea nitrogen [Mass/ volume] in Serum or Plasma [facility] End: 01-22-2025 Urinalysis complete W Reflex Culture panel - Urine [facility] Work Phone: Comment on above: Once (Lab) for 1 Occurrences starting until 01/22/2025 [facility] [place] [facility] Immunizations Immunization Date Immunization Notes Care Provider Fa naunpili 07-06-2023 influenza virus vaccine, unspecified formulation ERNA TROTTER MD [facility] Payers Date Payer Category Payer Self-pay [id number] 2023 [employer] [id number]. 9.6 [id number] 2022 Unknown [id number]. 1.13.680.2.7.3.6 [id number] 2017 Unknown [id number] 1994 Unknown [id number] 2..840.1.822325.3.579.2.627 1994 Unknown [id number] 2..840.1.973621.3.579.2.627 1994 Unknown [id number] 2.840.1.379053.3.579.2.627 1994 Unknown [id number] 2.16840.1.264382.3.579.2.627 1994 Unknown [id number] 2.16840.1.691784.3.579.2.627 1994 Unknown [id number] 2.16840.1.918673.3.579.2.1244 1994 Unknown [id number] 2.16.840.1.623768.3.579.2.1244 1994 Unknown [id number] 2.16.840.1.660175.3.579.2.1243 1994 Unknown [id number] 2.16.840.1.851009.3.579.2.1243 1994 Unknown [id number] 2.16.840.1.318836.3.579.2.1241 1994 Unknown [id number] 2.16.840.1.967987.3.579.2.1241 1994 Unknown [id number] 2.16.840.1.193195.3.579.2.1241 1994 Unknown [id number] 2.16.840.1.012046.3.579.2.1244 1994 Unknown [id number] 2.16840.1.122397.3.579.2.1244 1994 Unknown [id number] 2.16840.1.418377.3.579.2.1244 1994 Unknown [id number] 2.16840.1.282181.3.579.2.1244 1994 Unknown [id number] 2.16.840.1.900337.3.579.2.1244 1994 Unknown [id number] 2.16840.1.880202.3.579.2.1244 1994 Unknown [id number] 2.16.840.1.842979.3.579.2.1244 1994 Unknown [id number] 2.16.840.1.287384.3.579.2.1244 1994 Unknown [id number] 2.16.840.1.360616.3.579.2.1244 1994 Unknown [id number] 2.16840.1.444192.3.579.2.1244 1994 Unknown [id number] 2.16.840.1.311500.3.579.2.124 1994 Unknown [id number] 2.16.840.1.651532.3.579.2.1244 1994 Unknown [id number] 2.16.840.1.119071.3.579.2.1244 1994 Unknown [id number] 2.16.840.1.930819.3.579.2.1244 1994 Unknown [id number] 2.16.840.1.717138.3.579.2.1244 1994 Unknown [id number] 2.16.840.1.214279.3.579.2.1244 1994 Unknown [id number] 2.16840.1.487321.3.579.2.1244 1994 Unknown [id number] 2.16840.1.398194.3.579.2.1244 1994 Unknown [id number] 2.16840.1.155373.3.579.2.1244 1994 Unknown [id number] 2.16840.1.023614.3.579.2.1244 1994 Unknown [id number] 2.16840.1.135088.3.579.2.1244 1994 Unknown [id number] 2.16840.1.772100.3.579.2.1244 1994 Unknown [id number] 2.16840.1.723832.3.579.2.1244 1994 Unknown [id number] 2.16840.1.823196.3.579.2.1244 1994 Unknown [id number] 2.16.840.1.237908.3.579.2.1244 1994 Unknown [id number] 2.16840.1.666818.3.579.2.1245 1994 Unknown [id number] 2.16840.1.787997.3.579.2.1245 1994 Unknown [id number] 2.16840.1.889538.3.579.2.124 1994 Unknown [id number] 2.16840.1.658715.3.579.2.124 1994 Unknown [id number] 2.840.1.996240.3.579.2.124 1994 Unknown [id number] 2.840.1.063372.3.579.2.124 1994 Unknown [id number] 2.840.1.970114.3.579.2.627 1994 Unknown [id number] 2.0.1.358288.3.579.2.479 1994 Unknown [id number] 2.840.1.834354.3.579.2.479 1994 Unknown [id number] 2.840.1.239088.3.579.2.479 Department of [facility] ([facility], [place] and others) [id number] Unknown R [place] [id number] Unknown [id number] Unknown R [place] [id number] Unknown [id number] 2.840.1.085692.3.579.2.462 Unknown [id number] 2.840.1.782743.3.579.2.462 Unknown [id number] 2.16.840.1.371768.3.579.2.462 Unknown [id number] .840.1.889160.3.579.2.462 Unknown [id number] 2.16840.1.144156.3.579.2.462 Unknown [id number] .16.840.1.015256.3.579.2.462 Unknown [id number] .840.1.909101.3.579.2.462 Unknown [id number] .840.1.456159.3.579.2.462 Unknown [id number] .840.1.016901.3.579.2.462 Unknown [id number] .840.1.100027.3.579.2.462 Unknown [id number] .840.1.514159.3.579.2.462 Unknown [id number] .840.1.998125.3.579.2.462 Unknown [id number] .840.1.222636.3.579.2.462 Unknown [id number] .840.1.078071.3.579.2.462 Unknown [id number] .840.1.600972.3.579.2.462 Unknown [id number] 840.1.662972.3.579.2.462 Unknown [id number] .840.1.119979.3.579.2.462 Unknown [id number] 840.1.366015.3.579.2.462 Unknown [id number] .840.1.799754.3.579.2.462 Unknown [id number] .840.1.280038.3.579.2.462 Unknown [id number] .840.1.001238.3.579.2.462 Unknown [id number] 16.840.1.412994.3.579.2.462 Social History Date Type Detail Facility Tobacco smoking status NHIS Unknown if ever smoked [facility] Work Phone: Start: 1995 Sex Assigned At Female [facility] Start: 08-03-2023 End: 12-09-2023 Tobacco smoking status MEIS Tobacco smoking consumption unknown [facility] Start: 1995 Sex Assigned At Not on file [facility] Start: 01-25-2024 End: 12-11-2024 Gender identity Not on file [facility] Start: 04-20-2023 End: 05-22-2025 Tobacco smoking status Never smoked tobacco (finding) [facility] Start: 01-25-2024 Tobacco use and exposure Smokeless tobacco non-user [facility] Work Phone: Start: 01-25-2024 End: 01-09-2025 Alcoholic beverage intake Ex-drinker (finding) [facility] Work Phone: Start: 01-25-2024 End: 12-11-2024 History of Social function [facility] Work Phone: Start: 09-30-2023 Gender identity Identifies as female gender (finding) [facility] Work Phone: Start: 09-30-2023 Sexual orientation Heterosexual (fin ding) [facility] Work Phone: Start: 01-15-2024 End: 01-25-2024 Exposure to SARS-CoV-2 (event) Unable to assess [facility] Start: 07-04-2024 End: 01-25-2025 Exposure to SARS-CoV-2 (event) Not sure [facility] NEGATED: Highlighted rowStart: MARBELLA History of tobacco use Passive smoker [facility] Work Phone: Medical Equipment Procedure Code Equipment Code Equipment Origin al Text Equipment Identifier Dates [id number], [id number] Star t: 08-18-2024 End: 11-22-2024 Goals Date Patient Goal Desired Activity /State Functional Status Date Assessment Result Facility 01-22-2025 [place] - 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 [C-SSRS] [facility] Work Phone: 08-27-2023 Functional Status Awake, Up to bathroom [facility] 08-27-2023 Functional Status bilateral knee high applied/on [facility] 08-27-2023 Functional Status Maintained [facility] spital [facility] 08-13-2023 Functional Status Sensory Deficits None A [facility] Mental Status Date Assessment Result Facility 10-01-2023 Cognitive function Level Of Cons ciousness Follows Commands;Drowsy [facility] Work Phone: 10-01-2023 Cognitive function Voice/Name [facility] Work Phone: 08-27-2023 Mental Status Oriented x 4 [facility] 08-27-2023 Mental Status [facility] Clinical Notes 04-05-2023 to 05-21-2025 Note Date & Type Note Facility 05-21-2025 Progress note [facility] 05-21-2025 Progress note Note Date/Time May 21, 2025 3:38pm [facility] [address] [place] [address] OFFICE VISIT Date of Service: 05/21/25 MR#: [id number] Acct: [id number] Name: MARIXA AMOS Rep #: [id number] : 1995 Provider: DERRICK Sarabia Age/Sex: 29/F [place] [facility] Status: Signed Intake Vital Signs 03/09/25 11:36 05/01/25 14:59 05/11/25 13:52 05/21/25 15:12 Height 5 ft 3 in 5 ft 3 in 5 ft 3 in 5 ft 3 in Weight: 204 lb 4 oz BMI 36.1 BP 125/80 H Respiration 16 Pulse 87 Temp 97.7 F L Temp Source Temporal Pulse Oximetry (%) 98 Oxygen Delivery Method room air Intake Visit Reasons: 4 M FU Chronic Gerd Chief Complaint: UC flare Assistant Tennis Coach Required: No Accompanied by: Self Is patient in pain?: No Allergies No Known Allergies Allergy (Verified 05/11/25 13:50) Medications ?Medication ?Instructions ?Recorded ?Confirmed ?Type ustekinumab 90 mg/mL subcutaneous 90 mg subcut Q8W #1 mL 07/07/24 05/21/25 Rx syringe (Stelara) aspirin 81 mg tablet,delayed 81 mg PO QDAY 01/01/25 History release (Adult Aspirin Regimen) famotidine 40 mg tablet 40 mg PO BID PRN 05/11/25 History prednisolone sodium phosphate 10 50 mg (5 x 10 mg) PO QDAY 30 days 05/16/25 05/21/25 Rx mg disintegrating tablet #150 tabs vitamins 30 30 mg iron-10 cap PO 05/21/25 History mg iron-folic acid 1 mg-om3 capsule PFSH Medical History (Updated 05/22/25 @ 14:56 by EDRRICK Sanders) Obesity (BMI 30.0-34.9) Other obesity Rectal bleeding Endometriosis Low iron Anemia Latent tuberculosis Ulcerative colitis Surgical History History of esophagogastroduodenoscopy (EGD) History of laparoscopy History of colonoscopy Family History Grandmother Diabetes Maternal Grandfather Diabetes Paternal Father Hypertension Hyperlipidemia CAD (coronary artery disease) CABG 2 years ago Social History adopted: No household members: spouse housing: house current occupational status: employed current occupation: [employer] current occupational exposures/hazards: No pets and animals: [...] 3-4 times per week duration: 45-60 minutes/day cathy/sikhism: None seatbelt use: always do you feel safe at home: Yes 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 - treated with balsalazide till 2019 - Humir bi-weekly initiated 2018: Experienced severe UC flare requiring blood transfusion. - Humira escalated to weekly dosing 07/28/2021: Established care with [facility] after several miscarriages, concerned UC could be contributing. 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 - treated with rifampin x4-6 months with ID - plan to switch to Stelara (ustekinumab) 02/11/2022: Prednisone Take 3 tabs for five days, two tabs for five day and then one tab daily February 2022: Began budesonide [place] BID x4 weeks and hyoscyamine PRN while awaiting Stelara approval 04/10/2022: ustekinumab IV induction given - Humira discontinued October 2022: reported rectal bleeding - fecal calprotectin 54 - ustekinumab level 8.4 - attempted to increase ustekinumab to every 4 weeks - denied by insurance - started hydrocortisone enemas daily x3 weeks April 2023: Colonoscopy cancelled due to , later lost in miscarriage July 2023: Fecal calprotectin 275, CRP normal September 2023: Colonoscopy performed revealing moderate inflammation from rectumto descending colon, worse than prior exams. - Pathology showing mild chronic active colitis in sigmoid colon and on random biopsies - started budesonide 6mg daily x8 weeks 12/15/2023: Budesonide 6mg daily initiated December 2023: Goal set to maintain remission with ustekinumab and low dose budesonide while attempting . - budesonide 3mg daily 12/10/2024: Fecal calprotectin decreased to 20 - MFM (Dr. Carbajal) started on prednisone 10mg daily, estradiol, progesterone, ASA 81mg, metformin (continued until 15 weeks gestation) 12/26/2024: IVF implantation -> currently CRP HISTORY 05/12/2025 8.18 03/10/2025 8.03 02/02/2025 11.7 01/06/2025 5.97 08/03/2023 <2.9 Calprotectin History 05/13/2025 elevated 187 12/10/2024 normal 20 08/07/2023 elevated 275 11/16/2022 borderline 54 11/21/2021 borderline 61 On 05/14/25 @ 16:42 FriendDomo Wrote To [facility] No lactoferrin and no signs of infection in her stool. With no white blood cells in her stool assess likely to be infection or inflammation in her colon. But we will have to wait on the fecal calprotectin. Please make sure it was ordered. Thank you On 05/16/25 @ 12:30 Domo Weaver Wrote To MARIXA AMOS The stool calprotectin is mildly elevated at a level 187. The CRP is also mildly elevated at 8.1 The Stelara level is 02/16/2025 was 3.9. The Stelara level drawn on 05/12/2025 ispending * Response to induction (Week 8):?Trough levels of at least 3.5?4.2 ?g/mL are associated with a favorable response. * Clinical remission (maintenance):?Levels greater than 1.0 ?g/mL are associated with clinical remission. * Mucosal healing (maintenance):?Higher levels are generally needed to achieve mucosal healing (healing of the intestinal lining). * Level > 4.5 ?g/mL:?Often associated with mucosal healing. * Level > 2.3 ?g/mL:?Some studies have found a strong association with mucosal healing. Dosing a medication every four weeks (q4 week) is generally not an appropriate approach during .?This is because causes significant physiological changes that alter how medications are absorbed and processed by the body For a Crohn's flare during , the most effective steroid depends on the flare's severity, but?prednisolone is generally the preferred corticosteroid?dueto its metabolism by the placenta, which limits exposure. While?budesonide?may be considered safer for yxpi-dl-ddfahfxf flares with fewer side effects, itis less potent and may not control severe inflammation as quickly as prednisone. The last colonoscopy in 10/04/2023 displayed: C. Terminal ileum, biopsy: No pathologic change. D. Colon, random biopsy: Chronic active colitis pattern of injury with mild activity. See comment. E. Sigmoid colon and rectum, biopsy: Chronic active colitis pattern of injury with mild activity. Based on the symptoms, increased CRP, mildly increased fecal calprotectin likelyassociated with colonic disease and not terminal ileal disease I think the best way to treat at this time would be prednisone or prednisolone. For a Crohn's flare during , the most effective steroid depends on the flare's severity, but?prednisolone is generally the preferred corticosteroid?due to its metabolism by the placenta, which limits exposure. While?budesonide?may beconsidered safer for [id number]-[id number] flares with fewer side effects, it is lesspotent and may not control severe inflammation as quickly as prednisone. Almost all the steroids are given at him 1 mg/kg dose except for budesonide. Based on a weight of 201 pounds. That would be 100 kg. So typically that wouldbe 100 mg of prednisone or prednisolone per day. We will start at 50 mg as the lowest dose to get into remission is usually the best and then it wean down. ESTABLISHED with [facility] 07/28/2021 previously diagnosed with IBD, Crohn?s versus UC/proctitis extending to sigmoid colon/pancolitis following colonoscopy; treated with balsalazide until 2019. Reports frequent LGIB. Initial Diagnosis: 2015 Presenting Symptoms: bleeding and diarrhea CBC: 05/12/2025 HGB 10 CMP: 05/12/2025 transaminases WNL CRP: 05/12/2025 elevated 8.18 VITAMIN low 24.7 Prometheus IBD 07/30/2021 pattern not consistent with IBD Ustekinumab 05/12/2025 level 8.9, no Ab - this was drawn 2 weeks post injection 02/02/2025 level 3.9, no Ab 11/15/2023 level 2.4, no Ab 08/03/2023 level 0.5, no Ab 12/11/2022 level 8.4, no Ab QUANTIFERON: She was previously positive for latent tuberculosis and completed 6-month treatment of rifampin in 2021 by ID. HBVsAb: HBVsA02/06/2025 negative HBV Core Total Ab: Fecal Calprotectin: 05/13/2025 elevated 187 this is up from 20 on 12/11/2023 COLON: 10/04/2023 sigmoid and random colon biopsies with chronic active colitis with mild activity, TI biopsy unremarkable EGD: 10/04/2024 negative for H. pylori A. Duodenum, biopsy: Mild Dede?s gland hyperplasia. B. Gastric body, biopsy: Chronic gastritis. See comment. C. Terminal ileum, biopsy: No pathologic change. D. Colon, random biopsy: Chronic active colitis pattern of injury with mild activity. See comment. E. Sigmoid colon and rectum, biopsy: Chronic active colitis pattern of injury with mild activity. See comment D & E. There is mild glandular distortion, cryptitis and focal crypt abscesses. Fissuring ulcers are not identified. There is no evidence of dysplasia. Clinical correlation is suggested MEDS: Balsalazide in 2019 BIOLOGICS: Stelara Q8 weeks (start date 04/10/2022) last dose 04/27/2025 - next due 06/22/2025 Humira (start date 2015) 2018 increased to weekly - discontinued March 2022 STEROIDS: Prednisone 50mg daily started 05/18/2025 - no change in symptoms as of this time Budesonide November 2023 - discontinued November 2024 VACCINES COVID: 1st vaccine Varicella Vaccine: vaccine Shingles Vaccine: denies Hepatitis B Vaccine: Pneumonia Vaccine: denies Influenza Vaccine: yearly, but not yet this season - IVF for with transfer 12/26/2024 - was on prednisone 10mg daily and Metformin 1500mg daily 1st trimester - at 15 weeks she discontinued both - post stopping metformin and prednisone she felt a little unwell - she is 24 weeks gestation - reports she was having trouble with constipation - she is also following with MFM - Dr. Carbajal at [facility] - reports Dr. Carbajal is concerned with her increased risk of pre-term labor if UC is not controlled IBD SYMPTOMS: Bowel movements are: - symptoms started 3 weeks ago, increased frequency 6-7 andBRB with BM intermittently, mucus with stools - normal is 1x a day formed --- since starting prednisone she reports a mild decrease in frequency of stools - still having urgency with stools, fear of fecal incontinence - denies any nausea - reports diarrhea and stool frequency are her normal UC flare, but notes she usually experiences more bleeding Blood noted in stools: intermittent Bowel movement urgency present: yes Stool incontinence: yes Nocturnal BM's: new in the past 3 weeks Abdominal pain: mild stomach cramping, increases with a BM Rectal pain: denies QOL: missed work due to urgency and incontinence episodes, 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) ROS: Fever: denies Night Sweats: denies Visual changes: denies Mouth sores: denies Joint pain: denies Skin rashes/Lesions: none presently, has had some mild irritation upper extremities and chest Weight changes: not losing Smoking status: denies NSAID use: denies ROS Const Constitutional: Positive for fatigue; No fever(s) or weight change ENT ENT: No difficulty swallowing Gastro GI: Positive for abdominal pain, bloating, change in bowel habits, diarrhea and heartburn; No belching, change in stool character, coffee ground emesis, constipation, cramping, difficulty swallowing, feeling full early, excessive flatus, incontinent of stools, Vomiting blood/hematemesis, Blood in stool, loose stools,Black,tarry stools, nausea/dyspepsia, pain with swallowing, vomiting or other Musc Musculoskeletal: Positive for sciatica; No joint pain Skin Skin: No yellowing of the eye or itchy eyes Psych Psychiatric: No anxiety and No depression Endo Endocrine: Positive for fatigue; No weight change Aller/Imm Allergy/Immunologic: No itchy eyes Nolan/Lymp Hematologic/Lymphatic: No easy bleeding or easy bruising Exam Const General: cooperative, healthy appearing, no acute distress and well developed Nutritional Appearance: average body habitus and well nourished Orientation: alert and oriented x3 Other: 24 weeks gestation [facility] Head: normocephalic Ears: hearing grossly normal bilaterally Mouth: moist mucous membranes Teeth and gingiva: dentition normal Eyes Conjunctivae: conjunctivae normal Sclera: sclerae normal Neck Neck: normal visual inspection, full ROM and trachea midline Resp Effort & Inspection: normal respiratory effort, able to speak in complete sentences and symmetric chest movement Skin General: no rashes or lesions noted and turgor normal Neuro General: patient alert and patient oriented x3 Cranial Nerves: other (CN's grossly intact, non-focal exam) Cognition: normal cognition Speech: speech normal Gait: normal gait Extrem General: normal to inspection (no edema noted) Psych Appearance: grossly normal and well kempt Affect: normal affect Attitude: cooperative Thought Process: normal Assessment and Plan Assessment and Plan (1) Anemia: Status: Acute (2) Ulcerative colitis, left sided: Status: Acute Orders: [place] [facility] [place] Referrals Gastroenterology D64.9 - Anemia, unspecified, K51.50 - Left sided colitis without complications Plan 29-year-old female with a history of ulcerative colitis diagnosed in 2015; currently 24 weeks following IVF implantation on 12/26/2024. She transition to [facility] in March 2022 after discontinuing Humira. She has required intermittent topical steroid therapy and low-dose oral budesonide for symptom control, with colonoscopy in September 2023 showing moderate left-sided colitis (chronic mildly active colitis on histology). She presents with 3 weeksof increased stool frequency (6-7 watery stools/day), mucus, urgency, fecal incontinence, mild cramping, and minimal hematochezia (less than typical flares). Stool studies negative for infection. Fecal calprotectin 187, and CRP8.18. She started prednisolone 50mg daily on 05/18/2025. She was seen at [facility] ([facility]) in [place] on 05/10/2025. I reviewed with Dr. Weaver and we have discussed referral to IBD specialist. She has already established with [facility] in [place] and wishes to continue her IBD care with their practice. Ustekinumab level measured on 05/12/2025 was 8.9 with no antibodies detected. This level was obtained 2 weeks post injection (last dose 04/27/2025) and therefore does not represent a true trough level. Patient has been instructed to have a true trough level drawn on 06/21/2025, 1 day prior to next scheduled dose, unless directed otherwise by Dr. Avalos. Patient Instructions: Follow-up with Dr. Avalos [phone]. Ustekinumab level 06/21/2025. Coding Level of Care Code Off vis,est,level 4 Diagnoses Anemia D64.9 Ulcerative colitis, left sided K51.50 Clinical Quality Measures Smoking Screening Smoking Status: Never smoker 05/23/25 1412 <Electronically signed by Marcia MEZA> Date _ Marcia MEZA Cosigner Signature: Date (if applicable) CC: ~ [facility] Work Phone: 1(627) 565-955909-12-2025 Progress [facility]'[address], [address] [place] [id number] OFFICE VISIT Date of Service: 05/11/25 MR#: [id number] Acct: [id number] Name: MARIXA AMOS Rep #: [id number] : 1995 Provider: STEFANIE Lo Age/Sex: 29/F [place] [facility] Status: Signed Intake Vital Signs 05/01/25 14:59 05/11/25 13:52 Height 5 ft 3 in 5 ft 3 in Weight: 201 lb 6 oz BMI 35.6 BP 130/86 H Intake Visit Reasons: FHT check, spotting Chief Complaint: FHT Check, Spotting Assistant Tennis Coach Required: No Is patient in pain?: No [...] mg-folate no.1 1 mg-dha 300 mg capsule (PNV-[place]) famotidine 40 mg tablet 40 mg PO [...] 3-4 times per week duration: 45-60 minutes/day cathy/sikhism: None seatbelt use: always do you feel safe at home: Yes 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 +flutters. has MFM appt coming up. 05/01/25 -?-?-?-?-?-?-?-?-?-?-?-?- 20w 5d 200 lb 7 oz (+15 lb 7 oz) 125/78 Negative -?-?-?-?-?-?-?-?-?-?-?-?- Negative 140 -?-?-?-?-?-?-?-?-?-?-?-?- sm- no vb lof cr amping, having increaed crohn's symptoms- messag esent to friend and needs to get [facility] -?-?-?-?-?-?-?-?-?-?-?-?- 22w 1d 201 lb 6 oz (+16 lb 6 oz) 130/86 Negative -?-?-?--?-?-?-?-?-?-?-?-?- Negative 147 22 -?-?-?-?-?-?-?-?-?-?-?-?- KW- work in for vaginal bleeding/no cramping. +fm. Had UC flair and was trying to get in to see friend. Office never called back per pt so she found new provider in [place] and wasplaced on other medications. Also saw MFM and med list updated. THis morning she had a small amountof pink vaginal bleeding and called in. Spec [...] and Symptoms of Preeclampsia, Feeding No , Education and Family Medical [...] pt of Dr. Ogden. needs MFM consult. (2) resulting from in [...] information and see below for orders placed atthis visit. [place] appropriate handout given. 05/11/25 1414 s CNJolene> Date _ Iesha Wally STEFANIE Cosigner Signature: Date (if applicable) CC: ~ [facility]09-12-2025 Progress note Author Iesha Lo [facility] Note Date/Time May 11, 2025 2:14pm [facility] [address], [address] [place] [address] OFFICE VISIT Date of Service: 05/11/25 MR#: [id number] Acct: [id number] Name: MARIXA AMOS Rep #: [id number] : 1995 Provider: STEFANIE Lo Age/Sex: 29/F [place] [facility] [place]: Signed Intake Vital Signs 05/01/25 14:59 05/11/25 13:52 Height 5 ft 3 in 5 ft 3 in Weight: 201 lb 6 oz BMI 35.6 BP 130/86 H Intake Visit Reasons: FHT check, spotting Chief Complaint: FHT Check, Spotting Assistant Tennis Coach Required: No Is patient in pain?: No [...] mg-folate no.1 1 mg-dha 300 mg capsule (PNV-[place]) famotidine 40 mg tablet 40 mg PO [...] 3-4 times per week duration: 45-60 minutes/day cathy/sikhism: None seatbelt use: always do you feel safe at home: Yes 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 zofran ordered. 03/09/25 -?-?-?-?-?-?-?-?-?-?-?-?- 13w 1d 191 lb [...] 140 -?-?-?-?-?-?-?-?-?-?-?-?- sm- no vb lof cr rizwanaing, having increaed crohn's symptoms- messag esent to friend and needs to get MFM cosult. took ra wednesday. 05/11/25 -?-?-?-?-?-?-?-?-?-?-?-?- 22w 1d 201 lb 6 oz (+16 lb 6 oz) 130/86 Negative -?-?-?--?-?-?-?-?-?-?-?-?- Negative 147 22 -?-?-?-?-?-?-?-?-?-?-?-?- KW- work in for vaginal bleeding/no cramping. +fm. Had UC flair and was trying to get in to see friend. Office never called back per pt so she found new provider in [place] and was placed on other medications. Also [...] and Symptoms of Preeclampsia, Feeding No , [place] Education and Family Medical Leave or Disability [...] reports dx, pt of Dr. Ogden. needs [facility] consult. (2) resulting from in vitro fertilization: [...] this visit. [place] appropriate handout given. 05/11/25 9183 <Electronically signed by Iesha das CNM> Date _ Iesha Lo CNM Cosign Signature: Date (if applicable) CC: ~ [facility] Work Phone: 1(655) 737-276509-02-2025 Progress [facility] [address], [address] [place], [place] [id number] OFFICE VISIT Date of Service: 05/01/25 MR#: [id number] Acct: [id number] Name: MARIXA AMOS Rep #: [id number] : 1995 Provider: Dr. 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 took [place] wednesday. ACOG First Trimester First Trimester: Desire [...] and Symptoms of Preeclampsia, Feeding No , [place] Education and Family Medical Leave or Disability [...] Pt reports dx, pt of . on kady. needs MFM consult. (2) resulting from in [...] damien BLANCO> Date _ Carmen Lugo MD Cosign Signature: Date (if applicable) CC: ~ [id number] Progress note Author Carmen Lugo [facility] Note Date/Time May 01, 2025 3:19pm [facility] [address] [place] [address], [address] [place] [address] OFFICE VISIT Date of Service: 05/01/25 MR#: [id number] Acct: [id number] Name: MARIXA AMOS Rep #: [id number] : 1995 Provider: Dr. 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 Date Name GA/Weeks Outcome Route Bth Weight Gen Labor Lgth Anesthesia Del [facility] Provider FOB Unknown 07/2023-Julio 20 still Male [...] -?-?-?-?-?-?-?-?-?-?-?-?- 165 -?-?-?-?-?-?-?-?-?-?-?-?- JV- heart beat rosa hyun today for her reassurance. she is getting [...] and needs [facility] ACOG First Trimester First Trimester: Desire [...] Comment: Pt reports dx, [facility] consult. (2) resulting from in [...] by Carmen quezada MD> Date _ Carmen Lugo MD Cosigner Signature: Date (if applicable) CC: ~ [facility] Work Phone: 1(464) 283-442106-27-2025 Progress [facility] [address] [place] [address], [address] [place] [address] OFFICE VISIT Date of Service: 02/23/25 MR#: [id number] Acct: [id number] Name: MARIXA AMOS Rep #: [id number] : 1995 Provider: Dr. 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 Hx Para 0 [...] Acute Comment: , GIL 09/13/25, PC Julio (jul-20 week demise) Romel (9) : Status: Acute [...] 1143 e Celena DO> Date _ Marcia Yen DO [facility] Signature: Date (if applicable) CC: ~ [facility]06-10-2025 Progress [facility] [address] [place] [address], [address] [place] [address] OFFICE VISIT Date of Service: 02/06/25 MR#: [id number] Acct: [id number] Name: MARIXA AMOS Rep #: [id number] : 1995 Provider: STEFANIE Lo Age/Sex: 29/F [place] [facility] Status: Signed Intake Vital Signs 07/12/24 08:32 02/02/25 15:25 02/06/25 08:17 Height 5 ft 3 in 5 ft 3 in 5 ft 3 in Weight: 185 lb 8 oz BMI 32.8 BP 118/70 Intake Visit Reasons: *EST* NOB IVF 12/26, GIL 09/13/25 Assistant Tennis Coach Required: No Is patient in pain?: No [...] mg-folate no.1 1 mg-dha 300 mg capsule (PNV-[place]) prednisone 10 mg tablet 10 mg PO [...] 3-4 times per week duration: 45-60 minutes/day cathy/sikhism: None seatbelt use: always do you feel safe at home: Yes 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 Hx Para 0 [...] Pulmonary (e.g.,TB,Asthma), Seasonal allergies, Drug/latex allergies/reactions, Breast, Integrated Specialist surgery, Anesthetic complications, History of abnormal [...] Signs and Symptoms of Preeclampsia, Infant Feeding Yes , [place] Education and Family Medical Leave or Disability [...] Acute Comment: , GIL 09/13/25, PC Julio (jul- week demise) Romel (9) : Status: [...] 02/06/25 0850 s CNM> Date _ Iesha NASCIMENTO Cosigner Signature: Date (if applicable) CC: ~ [facility]06-06-2025 Evaluation note* Diagnosis Onset Date Resolution Status Admit Date Subchorionic hematoma in first trimester acute February [...] April 2:53pm Prior with demise acute May 01 025 2:53pm Subchorionic hematoma in first trimester acute May 01 2:53pm Supervision of high-risk acute May 01 2:53pm Ulcerative colitis chronic 2024 2:53pm Crohn's [...] May 11, 2025 1:47pm Ulcerative colitis chronic 2024 1:47pm Anemia acute April 2:37pm Ulcerative colitis, left sided acute May 21, 2025 2:37pm [facility] Work Phone: 1([phone]) 283-451206-06-2025 Evaluation note* Diagnosis Onset Date Resolution Status Admit Date Subchorionic hematoma in first trimester acute February [...] 2:53pm History of maternal blood transfusion, currently May 01, 025 2:53pm Obesity affecting acute May 01, 2025 2:53pm acute May 01, 2025 2:53pm resulting from in vitro fertilization acute April 2:53pm Prior with demise May 01, 025 2:53pm Subchorionic hematoma in first trimester May 01 025 2:53pm Supervision of high-risk acute May 01 025 2:53pm Ulcerative colitis chronic 2024 2:53pm Crohn's disease acute May 11, 2025 1:47pm History of anemia acute er 2024 1:47pm History of maternal blood transfusion, [...] 1:47pm Ulcerative colitis chronic Septem 2024 1:47pm Anemia acute April 2:37pm Ulcerative colitis, left sided acute May 21, 2025 2:37pm Anemia acute June 01, 2 025 2:38pm Crohn's disease acute June 012024 2:38pm History of anemia acute June 01, 2025 2:38pm History of maternal blood transfusion, currently acute June 01 2:38pm Lupus anticoagulant affectin g , antepartum acute May 2:38pm Obesity affecting acute June 01, 2025 2:38pm acute June 01, 025 2:38pm resulting from in vitro fertilization acute June 01, 2025 2:38pm Prior with demise acute June 01 2:38pm Subchorionic hematoma in first trimester acute June 01 2:38pm Supervision of high-risk acute June 01 2:38pm Ulcerative colitis, left sided acute June 01 2:38pm Ulcerative colitis chronic Octobe r 2024 2:38pm [facility] Work Phone: 1([phone]) 968-279606-06-2025 Progress [facility] [address] [place] [address], [address] [place] [address] OFFICE VISIT Date of Service: 02/02/25 MR#: [id number] Acct: [id number] Name: MARIXA AMOS Rep #: [id number] : 1995 Provider: STEFANIE Allen Age/Sex: 29/F [place] [facility] [place]: Signed Intake Vital Signs 01/25/25 14:45 02/02/25 15:25 Height 5 ft 3 in 5 ft 3 in Weight: 184 lb 8 oz 186 lb 4 oz BMI 32.6 33.0 BP 128/62 H 143/86 H Blood Pressure Location Rt brachial Position Sitting Intake Visit Reasons: fu early spotting per Assistant Tennis Coach Required: No Is patient in pain?: No [...] mg-folate no.1 1 mg-dha 300 mg capsule (PNV-[place]) prednisone 10 mg tablet 10 mg PO [...] 3-4 times per week duration: 45-60 minutes/day cathy/sikhism: None seatbelt use: always do you feel safe at home: Yes 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 per SM Details: [...] 20 Delivery Date: Last Updated by: Jacquie Fernández Leeanna demise, possible subchorionic hematoma Exam Const General: [...] 02/02/25 1609 ns CNM> Date _ Mary Beth Alejandro STEFANIE Cosigner Signature: Date (if applicable) CC: ~ [facility]06-06-2025 Progress note Author Mary Beth Allen [facility] Note Date/Time February 02, 2025 4:09p [facility] [address], [address] [place] [address] OFFICE VISIT Date of Service: 02/02/25 MR#: [id number] Acct: [id number] Name: MARIXA AMOS Rep #: [id number] : 1995 Provider: STEFANIE Allen Age/Sex: 29/F [place] [facility] [place] Status: Signed Intake Vital Signs 01/25/25 14:45 02/02/25 15:25 Height 5 ft 3 in 5 ft 3 in Weight: 184 lb 8 oz 186 lb 4 oz BMI 32.6 33.0 BP 128/62 H 143/86 H Blood Pressure Location Rt brachial Position Sitting Intake Visit Reasons: fu early spotting per Assistant Tennis Coach Required: No Is patient in pain?: No [...] mg-folate no.1 1 mg-dha 300 mg capsule (PNV-[place]) prednisone 10 mg tablet 10 mg PO QDAY 01/26/2502/02 History progesterone oil 75 mg IM QHS 01/26/25 History Post menopausal: No [facility] : Yes [facility] Obesity (BMI 30.0-34.9) Other obesity [...] 3-4 times per week duration: 45-60 minutes/day cathy/sikhism: None seatbelt use: always do you feel safe at home: Yes 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 Will see [facility] [place], [place] on 01-26-2025. Will provide recommendations if [...] 01/25/25 2:50 PM [facility] 1([phone]) 634-105305-26-2025 Physician Emergency department Note* ISAURA Daniel - [...] vomiting. History provided by: Patient and spouse lang interpreter used: No Patient History Medical History[1] [...] Drug use: Never ISAURA Daniel 01/22/25 1326 [facility] Work Phone: 1([phone]) 980-578405-26-2025 Emergency department Note* ISAURA Daniel - 01/22/2025 [...] vomiting. History provided by: Patient and spouse lang interpreter used: No Patient History Medical History[1] [...] ordered and independent interpretation performed. Details: See [facility] Procedure Procedures [1] Past Medical History: Diagnosis [...] at this time. [facility] Work Phone: 1([phone]) 350-406605-26-2025 Emergency department Triage note* Candi Kurtz RN - 01/22/2025 11:13 AM EDT Patient to ED for vaginal discharge. Patient reports being 6 weeks and noticed brown odorless discharge on Wednesday. Patient also reporting lower back pain. Patient denies any urinary issues at this time. [facility] Work Phone: 1([phone]) 524-809105-05-2025 Evaluation note* Diagnosis Onset Date Resolution Status Admit Date Chronic GERD chronic January 01 7:22am Ulcerative colitis chronic December h2024 7:22am [facility] Work Phone: 1([phone]) 543-512105-05-2025 Evaluation note* Diagnosis Onset Date Resolution Status Admit Date Chronic GERD chronic January 01 7:22am Ulcerative colitis chronic December h2024 7:22am Amenorrhea acute January 26, 2025 12:46pm Subchorionic hematoma in fir st trimester acute February 02, 2025 3 :00pm [facility] Work Phone: 1([phone]) 265-910205-05-2025 Evaluation note* Diagnosis Onset Date Resolution Status Admit Date Chronic GERD chronic January 01 7:22am Ulcerative colitis chronic December h2024 7:22am Amenorrhea resolved January 26, 2025 [...] 8:12am Ulcerative colitis chronic January 282024 8:12am [facility] Work Phone: 1([phone]) 857-443605-05-2025 Evaluation note* Diagnosis Onset Date Resolution Status [...] 10:46am Ulcerative colitis chronic January 292024 10:46am [facility] Work Phone: 1([phone]) 225-531605-05-2025 Evaluation note* Diagnosis Onset Date Resolution Status [...] 11:16am Ulcerative colitis chronic February 272024 11:16am [facility] Work Phone: 1(372) [phone] Evaluation note* Diagnosis Onset Date Resolution Status [...] Ulcerative colitis chronic April 06, 2025 12:46pm [facility] Work Phone: 1([phone]) 548-837605-05-2025 Evaluation note* Diagnosis Onset Date Resolution Status [...] 10:46am Hx of TB skin testing resolved Steve 2024 10:46am Infertility resolved February 23 10:46am PCOS (polycystic ovarian syndrome) resolved February 23, 2025 10:46am Rectal bleeding resolved January 10:46am Crohn's disease acute February 11:16am History of anemia acute March 092024 11:16am History of maternal blood transfusion, currently acute March 09, 2025 11:16am Obesity affecting acute March 09, 2025 11:16am acute March 09 11:16am resulting from in vitro fertilization acute March 09 025 11:16am Prior with demise acute March [...] maternal blood transfusion, currently acute May 01, 2 025 2:53pm Obesity affecting acute May 01, 2025 2:53pm acute May 01, 2025 2:53pm resulting from in vitro fertilization acute April 2:53pm Prior with demise acute May 01, 2 025 2:53pm Subchorionic hematoma in first trimester acute May 01, 2 025 2:53pm Supervision of high-risk acute May 01, 2 025 2:53pm Ulcerative colitis chronic 2025 2:53pm [facility] Work Phone: 1([phone]) 386-489104-29-2025 History of Present illness Narrative* Gavino Tristan [...] Preop diagnosis: Infertility Post op diagnosis: Same 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: Dr. Holder Depth: 7 cm Curve: anterior [...] 12/26/24 11:35 AM [facility] Work Phone: [phone] Hospital Discharge instructions* Discharge Instructions* Sarah Bansal RN - 12/26/2024 10:41 AM EDT Images from the original note were not included. [facility] [address] [place] [address] Home Going Instructions after Embryo Transfer: After [...] in : Advil, Motrin, Ibuprofen, Aleve, Excedrin, [place], Sudafed, and Pepto-Bismol. Avoid aspirin unless you [...] SARAH BANSAL 10:41 AM documented in this [facility] Work Phone: [phone]) [phone] History of Present illness Narrative* Anabell Rogel MD - 12/20/2024 1:00 PM EDT Lg Amos is a 29 y.o. female who presents for the following: Wart (Right 3rd toe plantar wart-pt states was treated with ln2 at [facility]. ). Review of Systems: No other skin [...] Anabell Rogel MD 12/20/2024 [facility] Work Phone: [phone]) [phone] History of Present illness Narrative* Amy Cherry [...] huddle 12/20. 12/15/24 at 1:22 PM - mAy Cherry RN documented in this encounterUnTr[facility] Work Phone: [phone]) 222-427304-14-2025 Evaluation + Plan note* Assessment & Plan Note - Denise Ordonez MD - 12/11/2024 2:30 PM EDTAssociated Problem(s): Polycystic ovarian disease She is following with gynecology. [facility] Work Phone: 1(145) 433-850404-14-2025 Evaluation + Plan note* Assessment & Plan Note - Denise Ordonez MD - 12/11/2024 2:30 PM EDTAssociated Problem(s): Crohn's disease of colon without complication (Multi) She is following with gastroenterology. [facility] Work Phone: 1(337) 884-153304-14-2025 History of Present illness Narrative* Denise Ordonez [...] is following with gastroenterology. documented in this encounterUnTr[facility] Work Phone: [phone] 496-252804-14-2025 Miscellaneous Notes* Assessment & Plan Note - Denise Ordonez MD - 12/11/2024 2:30 PM EDTAssociated Problem(s): Polycystic ovarian disease She is following with gynecology. * Assessment & Plan Note - Denise Ordonez MD - 12/11/2024 2:30 PM EDTAssociated Problem(s): Crohn's disease of colon without complication (Multi) She is following with gastroenterology. documented in this encounterUnTr[facility] Work Phone: 1([phone]) 817-123303-26-2025 Nurse Note* Michaelle López RN - 11/22/2024 11:20 AM EDT Patient discharged to home in stable condition via wheelchair to RIDE HOME: Partner's car. Discharge instructions given and concerns addressed. [facility] Work Phone: 1([phone]) 462-304303-26-2025 Nurse Note* Michaelle López RN - 11/22/2024 11:20 AM EDT Patient discharged to home in stable condition via wheelchair to RIDE HOME: Partner's car. Discharge instructions given and concerns addressed. documented in this encounterUnTr[facility] Work Phone: [phone] 301-736003-26-2025 History of Present illness Narrative* Henrietta Herndon MD - 11/22/2024 10:00 AM EDTAssociated Order(s): Egg Retrieval Pre-Procedure Diagnose(s): Encounter for assisted reproductive fertility cycle Post-Procedure Diagnose(s): Encounter for assisted reproductive fertility cycle Patient ID: Marixa Amos is a 29 y.o. female. Egg Retrieval Date/Time: 11/22/2024 10:15 AM Performed by: Henrietta Herndon MD Authorized by: Katelyn Benitez APRN-ELECTRIC ENGINE MECHANIC Consent: Consent obtained: Verbal and written Consent [...] diagnosis: Female infertility Post op diagnosis: Same 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: Leslie IV Fluids: 700 cc EBL: 5 cc UOP: Not recorded Specimen: Oocytes Complications: None Number of Oocytes right ovary: 14 Ovarian acc ss (right): Easy Number of Oocytes left ovary: 9 Ovarian access (left): Easy Endometrial thickness: TL Needle type: Single Additional notes: I was present and supervised the entire procedure. Henrietta Herndon 11/22/24 10:16 AM documented in this [facility] Work Phone: [phone] Hospital Discharge instructions* Discharge Instructions* Sarah Bansal RN - 11/22/2024 8:38 AM EDT Images from the original note were not included. [facility] [address]. [place] [id number] Home Going Instructions after Egg Retrieval: Activity: [...] 2 weeks following your oocyte retrieval. Call [phone] to speak with a Physician or Nurse if you have any concerns. SARAH BANSAL 8:38 AM [facility] [address]. [place], [place] IVF LAB EMBRYO UPDATE PROTOCOL The [...] biopsied and frozen. SARAH BANSAL 8:38 AM [facility] [address]. [place] [address] Frozen Embryo Transfer Instructions After your egg retrieval, follow up with your IVF nurse within 3-4 days Wednesday- Wednesday regarding theplan for your frozen embryo transfer (FET) cycle. Your IVF nurse will order and review with you themedications you will be using for the cycle. You will be sent an email from [employer] to fill out your Frozen Embryo Treatment [...] BANSAL RN 8:38 AM documented in this [facility] Work Phone: [phone]) 918-857303-24-2025 History of Present illness Narrative* Amy Cherry [...] ask you to either come here to [facility] or a [facility] lab attached to a [facility]. If you go to a standing lab we cannot guarantee we would get your results in a timely manner! Please see trigger shot and retrieval day instructions below! Your retrieval will fall on Wednesday 11/22 at 10:00 AM but please arrive 1 hr early, getting here at 9:00 AM! Patient to go to [facility] tomorrow for post trigger labs and yearly labs/STDs. Patient aware to hold Metformin will also hold Omeprazole (only takes as needed) starting tomorrow evening. Lab reqs to be printed and placed at front desk receptionist. 11/20/24 at 2:19 PM - Amy Cherry RN documented in this encounterMer[facility] Work Phone: [phone]) 247-381903-22-2025 History of Present illness Narrative* Imelda Cali RN - 11/18/2024 10:00 AM EDT CYCLING NOTE Cycle #: 2 Reason For Treatment: endo Protocol: ANT with FSH 100 and menopur 75 and HGH AVOID DROPPING DOSE Day of stim: 8 Patient Hx: 29yr old patient of Dr. Pollard - AMH 5.3 PGT: no Notes: Here for US and/or lab monitoring; relevant findings reviewed. Patient did not stay for discussion after monitoring, Team will contact patient later today with results and plan. Pt tentatively scheduled for Wednesday to return. Imelda Cali 11/18/2024 10:08 AM documented in this encounterMer[facility] Work Phone: [phone] History of Present illness Narrative* Mikhail Ascencio [...] continued monitoring. Patient agreeable. Patient transferred to [facility] for scheduling. Detailed MyChart sent as well. 11/16/24 at 1:54 PM - Mikhail Ascencio RN documented in this encounterMer[facility] Work Phone: [phone] History of Present illness Narrative* Amy Cherry [...] RTC . Patient transferred to front desk receptionist. 11/14/24 at 1:36 PM - Amy Cherry RN documented in this [facility]Mer[facility] Work Phone: [phone] History of Present illness Narrative* Amy Cherry [...] of vials confirmed: 2 on 11/08/24 at [facility] Component Latest Ref Rng 11/08/2024 WBC [...] to patient. Patient transferred to front desk receptionist to schedule for Wednesday. 11/08/24 at 3:18 PM - Amy Cherry RN documented in this encounterUnTr[facility] Work Phone: [phone]) 483-292402-12-2025 Nurse Note* Pao Beard RN - 10/11/2024 10:55 AM EST Patient discharged to home in stable condition via wheelchair to RIDE HOME: Partner's car. VSS at time of discharge. Discharge instructions given and concerns addressed. Pao Beard RN 10/11/24 11:13 AM [facility] Work Phone: [phone] Nurse Note* Pao Beard RN - 10/11/2024 10:55 AM EST Patient discharged to home in stable condition via wheelchair to RIDE HOME: Partner's car. VSS at time of discharge. Discharge instructions given and concerns addressed. Pao Beard RN 10/11/24 11:13 AM documented in this encounterUnTr[facility] Work Phone: [phone]) [phone] Nurse Note* Pao Beard RN - 10/11/2024 10:55 AM EST Patient discharged to home in stable condition via wheelchair to RIDE HOME: Partner's car. VSS at time of discharge. Discharge instructions given and concerns addressed. Pao Beard RN 10/11/24 11:13 AM documented in this encounterUnTr[facility] Work Phone: [phone] 223-201602-12-2025 History of Present illness Narrative* Henrietta Herndon MD - 10/11/2024 9:15 AM ESTAssociated Order(s): Egg Retrieval Pre-Procedure Diagnose(s): Encounter for assisted reproductive fertility cycle Post-Procedure Diagnose(s): Encounter for assisted reproductive fertility cycle Patient ID: Marixa Amos is a 29 y.o. female. Egg Retrieval Date/Time: 10/11/2024 9:41 AM Performed by: Henrietta Herndon MD Authorized by: Katelyn Benitez APRN-ELECTRIC ENGINE MECHANIC Consent: Consent obtained: Verbal and written Consent [...] diagnosis: Female infertility Post op diagnosis: Same 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: Leslie IV Fluids: 300 cc EBL: 5 cc UOP: Not recorded Specimen: Oocytes Complications: None Number of Oocytes right ovary: 16 Ovarian access (right): Easy Number of Oocytes left ovary: 9 Ovarian access (left): Easy Endometrial thickness: Tl Needle type: Single Additional notes: I was present and supervised the entire procedure. Henrietta Herndon 10/11/24 9:42 AM documented in this encounterMer[facility] Work Phone: [phone] History of Present illness Narrative* Henrietta Herndon MD - 10/11/2024 9:15 AM ESTAssociated Order(s): Egg Retrieval Pre-Procedure Diagnose(s): Encounter for assisted reproductive fertility cycle Post-Procedure Diagnose(s): Encounter for assisted reproductive fertility cycle Patient ID: Marixa Amos is a 29 y.o. female. Egg Retrieval Date/Time: 10/11/2024 9:41 AM Performed by: Henrietta Herndon MD Authorized by: Katelyn Benitez APRN-ELECTRIC ENGINE MECHANIC Consent: Consent obtained: Verbal and written Consent [...] diagnosis: Female infertility Post op diagnosis: Same 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: Leslie IV Fluids: 300 cc EBL: 5 cc UOP: Not recorded Specimen: Oocytes Complications: None Number of Oocytes right ovary: 16 Ovarian access (right): Easy Number of Oocytes left ovary: 9 Ovarian access (left): Easy Endometrial thickness: Tl Needle type: Single Additional notes: I was present and supervised the entire procedure. Henrietta Herndon 10/11/24 9:42 AM documented in this encounterUnTr[facility] Work Phone: [phone] 530-697702-12-2025 Miscellaneous Notes* Addendum Note - Pao Beard RN - 10/11/2024 9:15 AM ESTEncounter addended by: Pao Beard RN on: 10/11/2024 2:38 PM Actions taken: MAR administration accepted documented in this encounterMer[facility] Work Phone: [phone]) 777-887002-12-2025 Note* Addendum Note - Pao Beard RN - 10/11/2024 9:15 AM ESTEncounter addended by: Pao Beard RN on: 10/11/2024 2:38 PM Actions taken: MAR administration accepted [facility] Work Phone: 1([phone]) 526-816602-12-2025 Hospital Discharge instructions* Discharge Instructions* Pao Beard RN - 10/11/2024 7:49 AM EST Images from the original note were not included. [facility] [address] [place] [address] Home Going Instructions after Egg Retrieval: Activity: [...] 2 weeks following your oocyte retrieval. Call [phone] to speak with a Physician or Nurse if you have any concerns. Pao Beard 9:11 AM [facility] [address]. [place], [place] IVF LAB EMBRYO UPDATE PROTOCOL The [...] biopsied and frozen. Pao Beard 9:11 AM [facility] [address]. [place] [address] Frozen Embryo Transfer Instructions After your egg retrieval, follow up with your IVF nurse within 3-4 days Wednesday- Wednesday regarding theplan for your frozen embryo transfer (FET) cycle. Your IVF nurse will order and review with you themedications you will be using for the cycle. You will be sent an email from [employer] to fill out your Frozen Embryo Treatment [...] Beard RN 9:10 AM documented in this [facility] Work Phone: [phone]) [phone] History of Present illness Narrative* Mikhail Ascencio RN - 10/09/2024 9:15 AM EST CYCLING NOTE Here for US and/or lab monitoring; relevant findings reviewed. Cycle #: 1 Reason For Treatment: hx of endo Protocol: OCP antagonist FSH 125/HMG 75 Day of stim: 10 Patient Hx: 29yr old patient of Dr. Tre Yoo AMH 5.317 PGT: yes Notes: Patient did not stay for discussion after monitoring, Team will contact patient later today with results and plan. Mikhail Ascencio 10/09/2024 9:11 AM Telephone call made to patient with MD plan. Patient to trigger at 0915 tonight for a retrieval on 10.11 at 0915 am. Patient to get post trigger labs drawn tomorrow at [facility] lab. Patient to beginCabergoline 0.5mg x8days. Trigger and trigger day instructions given over the phone and sent via [email or web address] for reference. Patient agreeable. [facility]. 10/09/24 at 3:01 PM - Mikhail Ascencio RN documented in this [facility] Work Phone: [phone]) 426-987702-09-2025 History of Present illness Narrative* Lisbeth Spencer [...] Arrive 60 minutes prior to procedure at [place] [address]. Patient verbalizes understanding of plan and location [...] 10/08/24 1:16 PM documented in this encounterMer[facility] Work Phone: [phone]) [phone] History of Present illness Narrative* Lisbeth Spencer [...] and plan. Lisbeth Spencer 10/07/2024 8:53 AM ipvive message sent with plan. Lisbeth Spencer 10/07/24 12:05 PM documented in this encounterMer[facility] Work Phone: [phone]) 195-889902-06-2025 History of Present illness Narrative* Mikhail Ascencio RN - 10/05/2024 9:45 AM EST CYCLING NOTE Here for US and/or lab monitoring; relevant findings reviewed. Cycle #: 1 Reason For Treatment: hx of endo Protocol: OCP antagonist FSH 150/HMG 75 Day of stim: 6 Patient Hx: 29yr old patient of Dr. Tre Yoo AMH 5.317 PGT: yes PGT-A Notes: Patient did not stay for discussion after monitoring, Team will contact patient later today with results and plan. Mikhail Ascencio 10/05/2024 9:18 AM Telephone call made to patient with MD plan. Patient to decrease FSH dose to 125 units. Patient to RTC on 10/07 for continued monitoring. Patient agreeable. [facility] 10/05/24 at 1:23 PM - Mikhail Ascencio RN documented in this encounterMer[facility] Work Phone: [phone] 338-238501-29-2025 History of Present illness Narrative* Mikhail Ascencio RN - 09/27/2024 8:45 AM EST IVF NURSE CONSULT Here for IVF Nurse consult. Tentative Calendar given and reviewed. Yes Meds have been ordered from: [facility] Patient aware that plan is [...] 09/27/2024 9:11 AM documented in this encounterMer[facility] Work Phone: [phone] History of Present illness Narrative* Mikhail Ascencio RN - 09/27/2024 8:15 AM EST MUKESH NOTE - IVF STIM BASELINE Patient presents for baseline ultrasound and/or labs. Treatment protocol: ANT FSH 150 and menopur 75 Trigger plan: HCG vs Lupron Lead in: OCP Start date for lead in: 09/10 Last estrace/OCP date: 09/26 PGT-A/M? Yes; Req Sent: Yes; PGT-M Test Ready: No ; [employer]: [employer] PGT order scanned into [employer], confirmed by: on 09/27 (scanned in to media tab on 07/18/24) Plan to freeze: embryos [employer] forms/out waiver complete: Yes Does patient have medications onhand? Yes Pharmacy: [facility] pass signed off: Yes CBC [...] continued monitoring. Patient agreeable. Patient transferred to [facility] for scheduling. [employer] sent to patient with plan and tentative calendar for reference. 09/27/24 at 1:34 PM - Mikhail Ascencio RN documented in this [facility] Work Phone: [phone]) [phone] History of Present illness Narrative* Hilary Holder [...] yes Risks discussed: Bleeding, infection and pain [place] protocol: Procedure explained and questions answered to [...] diagnosis: fertility testing Post op diagnosis: Same 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: Fellow Anesthesia: None IV: None EBL: 3 [...] well, no immediate complications documented in this [facility] Work Phone: 1(571) 289-529011-15-2024 History of Present illness Narrative* Imelda Pollard [...] See scanned record. Saline Infused Sonography: n/a MOTHER HELPER Pelvic Ultrasound: normal, see scanned record Partner SA: Normal- Romel Amos (scanned into [facility]'s records) Did genetic screening in [place]- negative per patient. Treatment to date: Fertility [...] mouth 2 times a day before meals. 3-QQZU-KTEQF ACID-OM3 ORAL Take 1 capsule by mouth [...] an insemination (IUI) this cycle. - [place] [phone] - [place] [phone] Ovulation predictor kits test for LH hormone [...] Pollard 07/14/2024 1:48 PM documented in this [facility] Work Phone: 1(365) 949-738405-28-2024 History of Present illness Narrative* Sarah Billingsley Srinivas, TURRET LATHE TENDER-ELECTRIC ENGINE MECHANIC - 01/25/2024 11:15 AM EDT Virtual or [...] See scanned record. Saline Infused Sonography: n/a MOTHER HELPER Pelvic Ultrasound: normal, see scanned record Partner SA: Normal- Romel Amos (scanned into [facility]'s records) Did genetic screening in [place]- negative per patient. Treatment to date: Fertility [...] mouth 2 times a day before meals. 4-ROMF-DXAJY ACID-OM3 ORAL Take 1 capsule by mouth [...] an insemination (IUI) this cycle. - [place] [phone] - [place] [phone] Ovulation predictor kits test for LH hormone [...] year Rubella/Varicella Within 5 years BMI Testing [facility] CBC Within 1 year CMP Within [...] 01/25/2024 11:20 AM documented in this encounterMercy [facility] Work Phone: 1([phone]) 407-712004-11-2024 NotePap Smear Specimen AdequacyApril 2023 3:45pmComment.Satisfactory for evaluation. Endocervical and/or squamous metaplasticcells (endocervical component)are present.[facility]ACED A#[id number] County HospitalComment on above:Satisfactory for evaluation. Endocervical and/or squamous metaplasticcells (endocervical component)are present.10-01-2023 Procedure [facility] 10-01-2023 [facility] 08-27-2023 Hospital Discharge instructions Patient Education [...] what activities are safe for you. Take iidh-kqy-ydkyczm and prescription medicines only as told by [...] 11/22/2001 Document Revised: 08/19/2018 Document Reviewed: 04/01/2018 [employer] Patient Education 2020 [employer]. 08/27/2023 13:15:43 Nausea and Vomiting, Adult Nausea [...] water added (diluted fruit juice). Eat bland, bscf-dj-udpeec foods in small amounts as you are able. These foods include bananas, applesauce, rice, lean meats, toast, and crackers. Avoid fluids that contain a lot of sugar or caffeine, such as energy drinks, sports drinks, and soda. Avoid alcohol. Avoid spicy or fatty foods. General instructions Take wzud-hhc-nxacgrs and prescription medicines only as told by your health care provider. Drink enough fluid to keep your urine pale yellow. Wash your hands often using soap and water. If soap and water are not available, use hand last dipper. Make sure that all people in your [...] eating and drinking to prevent dehydration. Take nkcn-dfz-ukqrisu and prescription medicines only as told by [...] 08/16/2006 Document Revised: 12/08/2019 Document Reviewed: 01/24/2019 [employer] Patient Education 2020 [employer]. 08/27/2023 13:15:03 Endometrial Ablation, Care After Endometrial [...] are safe for you. General instructions Take eboi-xpy-rsnmiyo and prescription medicines only as told by [...] 06/28/2018 Document Revised: 12/07/2019 Document Reviewed: 06/28/2018 [employer] Patient Education 2020 [employer]. 08/27/2023 11:52:28 8- Post Op MOTHER HELPER Minor Surgery What to Do After Your [...] as your pain allows. You may take msld-huy-sznjsamyhva medication if you no longer need your prescribed pain medication. Dged-qjz-llgqgol pain medications are Tylenol (acetaminophen) or Advil (ibuprofen). Do not take Tylenol if you are still taking [place] or Percocet. They are the same type [...] 08/02/2023 10:09:45 With:ERNA TROTTER MD Address: [address] [address] [phone] When:Within 2 Week(s) [facility] 12-29-2023 Note Discharge Instructions Thank you for allowing [facility] to assist you with your healthcare needs. The following is importantdischarge information regarding your hospital visit. Your Care Team CATRACHITO MERCEDES MD Your Diagnosis Crohn's disease Family history of endometriosis Female infertility Postoperative pain What to do next Follow Up Appointments Follow Up with ERNA TROTTER MD When In 2 weeks Where: [address] [facility] [address] [place], [place] [id number] [phone] The Following Activity and Diet Have Been [...] Duration: 14 Days Refills: 1 Pickup at [facility] #76276 New acetaminophen-oxyCODONE (Percocet 5 mg-325 mg oral tablet) 1 tab(s) by mouth Every 4 hours as needed for for pain Postoperative pain Duration: 7 Days Pickup at [facility] #24269 New ibuprofen (ibuprofen 800 mg oral tablet) 1 tab(s) by mouth Every 8 hours Duration: 14 [facility] New ondansetron (Zofran 4 mg oral tablet) 1 tab(s) by mouth Every 6 hours as needed for Nausea/Vomiting Duration: 5 Days Pickup at [facility] #16742 Unchanged cholecalciferol (Vitamin D3) 25 Microgram by [...] [facility] Subcutaneous Every 8 weeks Pharmacy Information [id number]: [address] [place], [place] [id number] [phone] Please take this list to your next [...] what activities are safe for you. Take swmq-rqe-rtbzjin and prescription medicines only as told by [...] 11/22/2001 Document Revised: 08/19/2018 Document Reviewed: 04/01/2018 Team Apart Patient Education 2020 [employer] Nausea and Vomiting, Adult Nausea is [...] water added (diluted fruit juice). Eat bland, atka-bf-ekovnk foods in small amounts as you are able. These foods include bananas, applesauce, rice, lean meats, toast, and crackers. Avoid fluids that contain a lot of sugar or caffeine, such as energy drinks, sports drinks, and soda. Avoid alcohol. Avoid spicy or fatty foods. General instructions Take plyz-qry-owtdfbn and prescription medicines only as told by your health care provider. Drink enough fluid to keep your urine pale yellow. Wash your hands often using soap and water. If soap and water are not available, use hand last dipper. Make sure that all people in your [...] eating and drinking to prevent dehydration. Take fypo-gbx-uylwdim and prescription medicines only as told by [...] 08/16/2006 Document Revised: 12/08/2019 Document Reviewed: 01/24/2019 Team Apart Patient Education 2020 [employer]. Endometrial Ablation, Care After This sheet gives [...] are safe for you. General instructions Take oqur-ejf-egdotdf and prescription medicines only as told by [...] 06/28/2018 Document Revised: 12/07/2019 Document Reviewed: 06/28/2018 [employer] Patient Education 2020 [employer]. What to Do After Your Gynecology [...] as your pain allows. You may take momu-swj-xcnvcfbkjep medication if you no longer need your prescribed pain medication. Xsqr-zyz-evwkmfh pain medications are Tylenol (acetaminophen) or Advil (ibuprofen). Do not take Tylenol if you are still taking [place] or Percocet. They are the same type [...] to receive it can visit one of [facility] vaccine clinics. There are many vaccine clinic locations within the [facility]. For locations and available times, please visit [email or web address].coronavirus.[place].gov/. It is important to note that some COVID mobile vaccine clinics are held outdoors and may be canceled in rainy or stormy conditions. To learn more about pediatric vaccinations (ages 5-11), we invite you to visit the [facility] webpage. https://www.[facility].org/pages/5608-Fuyvp-Jftwrbstpkb-Jucgzbafwm-Ecjxm-Xdb stions.htmlTo learn more about the COVID-19 vaccine, we invite you to visit the CDC website for a list of frequently asked questions.https://www.cdc.gov/coronavirus/2019-ncov/vaccines/faq.html [facility] Patient Portal Access Instructions: Stay connected with your healthcare team and access your personal medical information anytime with the [facility] Patient Portal. Please follow the directions below to create your [facility] account: 1.Access the email account you provided upon registration to the hospital/physician office.2.Look for an invitation email from [facility].3.Open the email and access the invitation link: AcceptInvitation to [facility].4.Fill in the required barnes to create your account. To access your account, visit [email or web address]. Click the blue button labeled Access Patient Portal and then log in with the username and password that you created in the steps above. You will be able to view your test results, lab results, a summary of your visits, upcoming appointments and more. There is also a convenient messaging option where you can send secure messages to your p Bionaturisvider. In addition, you will have the ability to download any documents or summaries to your computer and/or send the information securely to a physician. Remember that your healthcare information is confidential, so carefully consider who you will allowto register on the [facility] Patient Portal for access to your information. You can also access the [facility] Patient Portal on the [facility] nancie. Simply click on Patient Portal and then log into your account. If you would like to receive a full copy of your medical records, please contact the [facility] Medical Records Department by calling [phone], Wednesday through Wednesday between 8 a.m. and [...] Call your local pharmacy or go to http://bit.Spotwish/1Y7At5o to find one close to you.3.Make use of household items: Use cat litter or old coffee grounds to dispose medications if other options arenot available. Mix your drugs with these household products, seal them in an airtight container andthrow it into the garbage. Call [facility]: [phone] to be sure your drugs can be [...] Endometrial Ablation, Care After 8- Post Op MOTHER HELPER Minor Surgery Medication Leaflets My discharge plan and instructions have been reviewed and explained to me and IOMI HEATHER M understand my current condition and have read and understand these discharge instructions. I have received a written copy of the plan/instructions. If I have questions, I am aware that I should contact my doctor. Patient/Supervisor [place] Signature: Date/Time: Relationship to Patient: Witness Name/Signature: Date/Time: [facility]12-29-2023 Note Date of Service 08/27/23 History [...] ERNA TROTTER MD on 08/27/2023 11:50 AM [facility]12-29-2023 Anesthesiology Consult note Patient: MARIXA BRAGA Age: 28 years Sex: Female : 1995 Associated Diagnoses: None Author: CHELLY BUSTAMANTE TURRET LATHE TENDER-FLORAL DECORATOR Preoperative Information Time of last food or [...] list: Medical Crohn disease / SNOMED CT 73215233 / Confirmed Wellness examination / SNOMED CT 611254549 / Confirmed Weight gain / SNOMED CT 07663382 / Confirmed, Active Problems (4) Crohn disease GERD (gastroesophageal reflux disease) Weight gain Wellness examination Histories Past Medical History: Resolved ([id number]): Onset on 07/18/2018 at 23 years. Resolved in 2018 at 23 years. ([id number]): Onset on 07/19/2017 at 22 years. Resolved in 2018 at 22 years. Family History: Anxiety Sister Hypertension Father Heart disease Father Alcoholism Father Depression Father Procedure history: Colonoscopy (070065309). 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 Substance Abuse 08/27/2023 Use: Never Tobacco 08/27/2023 Tobacco Use: Never (less than 100 in l Exercise 04/20/2023 Exercise type: Walking Times per week: 5-6 times/week Home/Environment 08/27/2023 Living situation: Home/Independent Domestic Concerns None Primary Elderly Sitter: Self Current Home Treatments None Special Services [...] Resp Rate 20 br/min (AUG 27 10:13) QBK320 mmHg (AUG 27 10:13) DBP81 mmHg (AUG 27 10:13) Measurements from flowsheet : Measurements 08/27/2023 10:13 EST Height 160 cm Admission Weight 75 kg [place] Body Weight 52.38 kg Admission Body Mass [...] Height 160 cm Admission Weight 75 kg [place] Body Weight 52.38 kg Admission Body Mass [...] Person #1 We May Share LAURA Amos [phone] Designated Person #1 Relationship Spouse Privacy Restrictions [...] Method Explanation, Printed materials Preferred Spoken Language Polish Preferred Written Language Polish Teaching Evaluation No further teaching needed Safety Brochure Information Reviewed Unable to complete [facility] Video Viewed No Information Given by Patient [...] QC PRGUP Positive . Assessment and Plan [place] Society of Anesthesiologists (ASA) physical status classification: Class II. Anesthetic Preoperative Plan Premedication: intravenous. Anesthetic technique: General. Induction: intravenously. Maintenance airway: Oral endotracheal tube. Postoperative pain management: Per surgeon. Risks discussed: nausea, vomiting, sore throat. Informed consent: signed by patient. Digitally Signed by CHELLY BUSTAMANTE on 08/27/2023 11:44 AM [facility]08-11-2023 Telephone encounter Note* Telephone Encounter - Cher Calderon - 04/09/2023 11:53 AM EDT Name of caller: MARIXA Relation to patient: patient Contact phone number: [phone] Appointment scheduled with: LANDY BLAIR Appointment date & time: 05/04/23 @ 7:50 AM Reason for visit (are you having any symptoms) : Low blood pressure, unexpected weight gain Transportation issues/ concerns: NO Special accommodations? ( wheel chair, etc) : NO Current medications: STELARA Any refills need: NO Any chronic conditions the provider should be aware of: CHRON'S, 14 WEEKS [id number] Telephone encounter Note* Telephone Encounter - Cher Calderon - 04/09/2023 11:53 AM EDT In order to comply with the No Surprises Act, [employer] is providing you with the following attachments. Any Good Cathy Estimate that may be provided are based on the services you are scheduled toreceive. During your visit, there may be additional services required in order for the provider to complete your plan of care. DECLINED [facility] [id number] Miscellaneous Notes* Telephone Encounter - Cher Calderon - 04/09/2023 11:53 AM EDT In order to comply with the No Surprises Act, [employer] is providing you with the following attachments. Any Good Cathy Estimate that may be provided are based on the services you are scheduled toreceive. During your visit, there may be additional services required in order for the provider to complete your plan of care. DECLINED documented in this encounterSProMedica Flower [id number] Miscellaneous Notes* Telephone Encounter - Dimaskleber Calderon - 04/09/2023 11:53 AM EDT Name of caller: MARIXA Relation to patient: patient Contact phone number: [phone] Appointment scheduled with: LANDY BLAIR Appointment date & time: 05/04/23 @ 7:50 AM Reason for visit (are you having any symptoms) : Low blood pressure, unexpected weight gain Transportation issues/ concerns: NO Special accommodations? ( wheel chair, etc) : NO Current medications: STELARA Any refills need: NO Any chronic conditions the provider should be aware of: CHRON'S, 14 WEEKS documented in this [facility] [id number] Telephone encounter Note* Telephone Encounter - Cher Calderon - 04/05/2023 3:44 PM EDT PATIENT SUBMITTED ONLINE APPOINTMENT REQUEST FOR A PCP APPOINTMENT. SPOKE TO PATIENT AND GOT SOME INFORMATION BUT SHE HAD TO GET OFF THE LINE AND STATES SHE WILL C/B. OK TO SCHEDULE WITH ANY PROVIDERWHEN PATIENT CALLS BACK. FirstName : Marixa LastName : BRAGA Pronouns : PronounsOther : Email : [email or web address] Phone : [phone] Birthdate : 1995 12:00:00 AM BestTimeToCallBack : Afternoon AppointmentDate : Kirk PhysicianRequested : Symptoms : Weight gain, low blood pressure OptIn : False [id number] Miscellaneous Notes* Telephone Encounter - Cher Robles AyoubYumiko - 04/05/2023 3:44 PM EDT PATIENT SUBMITTED ONLINE APPOINTMENT REQUEST FOR A PCP APPOINTMENT. SPOKE TO PATIENT AND GOT SOME INFORMATION BUT SHE HAD TO GET OFF THE LINE AND STATES SHE WILL C/B. OK TO SCHEDULE WITH ANY PROVIDERWHEN PATIENT CALLS BACK. FirstName : Marixa LastName : BRAGA Pronouns : PronounsOther : Email : [email or web address] Phone : [phone] Birthdate : 1995 12:00:00 AM BestTimeToCallBack : Afternoon AppointmentDate : Kirk PhysicianRequested : Symptoms : Weight gain, low blood pressure OptIn : False documented in this encounterSProMedica Flower HospitalEvaluation + Plan note No data available for this section [facility] Evaluation + Plan note Future Appointments Appointment Date:08/16/2023 10:45:00 AM Scheduled Provider:CATRACHITO MERCEDES MD Location:[facility] Appointment Type: OV Follow Up [facility] Evaluation note* Diagnosis Onset Date Resolution Status Ulcerative colitis acute Ulcerative colitis [facility] Work Phone: Evaluation note* Diagnosis Onset Date Resolution Status Ulcerative colitis [facility] Work Phone: Evaluation note* Diagnosis Onset Date Resolution Status Chronic GERD chronic Ulcerative colitis chronic [facility] Work Phone: Evaluation note* Diagnosis Onset Date Resolution Status Endometriosis acute Infertility acute [facility] Work Phone: Evaluation note* Diagnosis Female infertility- Primary Female infertility of unspecified origin Endometriosis Endometriosis, site unspecified documented in this encounter [facility] Work Phone: [phone] note* Diagnosis Fertility testing- Primary Encounter for preprocedural laboratory examination Female fertility problem [N97.9] documented in this encounter [facility] Work Phone: [phone] note* Diagnosis Endometritis- Primary Unspecified inflammatory disease of uterus Fertility testing documented in this encounter [facility] Work Phone: [phone] note* Diagnosis Endometritis- Primary Unspecified inflammatory disease of uterus Fertility testing documented in this encounter [facility] Work Phone: [phone] note* Diagnosis Female infertility Female infertility of unspecified origin documented in this encounter [facility] Work Phone: [phone] note* Diagnosis Female infertility Female infertility of unspecified origin documented in this encounter [facility] Work Phone: [phone] note* Diagnosis Female infertility Female infertility of unspecified origin documented in this encounter [facility] Work Phone: [phone] note* Diagnosis Encounter for assisted reproductive fertility cycle Encounter for assisted reproductive fertility procedure cycle documented in this encounter [facility] Work Phone: [phone] note* Diagnosis Encounter for assisted reproductive fertility cycle Encounter for assisted reproductive fertility procedure cycle documented in this encounter [facility] Work Phone: [phone] note* Diagnosis Female infertility Female infertility of unspecified origin documented in this encounter [facility] Work Phone: [phone] note* Diagnosis Female infertility Female infertility of unspecified origin documented in this encounter [facility] Work Phone: [phone] note* Diagnosis Fertility testing- Primary Female infertility Female infertility of unspecified origin Screening for diabetes mellitus Encounter for Rh blood typing Encounter for blood typing Screening for STDs (sexually transmitted diseases) Screening examination for venereal disease Screening for thyroid disorder documented in this encounter [facility] Work Phone: Evaluation note* Diagnosis Encounter for assisted reproductive fertility cycle Encounter for assisted reproductive fertility procedure cycle documented in this encounter [facility] Work Phone: [phone] note* Diagnosis Encounter for assisted reproductive fertility cycle Encounter for assisted reproductive fertility procedure cycle documented in this encounter [facility] Work Phone: [phone] note* Diagnosis Healthcare maintenance- Primary Hypovitaminosis D Unspecified vitamin D deficiency Polycystic ovarian disease Polycystic ovaries Crohn's disease of colon without complication (Multi) documented in this encounter [facility] Work Phone: Evaluation note* Diagnosis Healthcare maintenance- Primary Hypovitaminosis D Unspecified vitamin D deficiency Polycystic ovarian disease Polycystic ovaries Crohn's disease of colon without complication (Multi) Female infertility Female infertility of unspecified origin documented in this encounter [facility] Work Phone: [phone] note* Diagnosis Healthcare maintenance- Primary Hypovitaminosis D Unspecified vitamin D deficiency Polycystic ovarian disease Polycystic ovaries Crohn's disease of colon without complication (Multi) Plantar wart- Primary Dermatologic problem documented in this encounter [facility] Work Phone: Evaluation note* Diagnosis Healthcare maintenance- Primary Hypovitaminosis D Unspecified vitamin D deficiency Polycystic ovarian disease Polycystic ovaries Crohn's disease of colon without complication (Multi) Encounter for assisted reproductive fertility cycle Encounter for assisted reproductive fertility procedure cycle documented in this encounter [facility] Work Phone: [phone] note* Diagnosis Healthcare maintenance- Primary Hypovitaminosis D Unspecified vitamin D deficiency Polycystic ovarian disease Polycystic ovaries Crohn's disease of colon without complication (Multi) Encounter to determine viability of , single or unspecified fetus- Primary documented in this encounter [facility] Work Phone: Evaluation note* Diagnosis Healthcare maintenance- Primary Hypovitaminosis D Unspecified vitamin D deficiency Polycystic ovarian disease Polycystic ovaries Crohn's disease of colon without complication (Multi) Vaginal discharge- Primary Leukorrhea, not specified as infective documented in this encounter [facility] Work Phone: Evaluation note* Diagnosis Healthcare maintenance- Primary Hypovitaminosis D Unspecified vitamin D deficiency Polycystic ovarian disease Polycystic ovaries Crohn's disease of colon without complication (Multi) Encounter to determine viability of , single or unspecified fetus- Primary documented in this encounter [facility] Work Phone: History and physical note Author Domo Weaver [facility] October 01, 2023 11:37am Note Date/Time October 01, 2023 1 1:37am [facility] Medical Records Department [address] [place] [address] History & Physical Exam 10/01/23 1137 MR#: [id number] Acct: [id number] Name: MARIXA BRAGA Rep #:[id number] : 1995 28 From: Domo Weaver DO PCP: CATRACHITO MERCEDES Status:[facility] Location: [place] [address] History and Physical Date of Admission: 10/01/23 [...] not start azathioprine for one month. OV 7.03.20 possible change of therapy to Stelara. Start [...] or lesions noted Quality Reporting Tobacco Screening ([facility]) Smoking Status: Never smoker Assessment and [...] some mucousy stools when she was in [place] but thatonly lasted for a couple days [...] DO> Cosigner Signature (if applicable): CC: CATRACHITO MAGO; Domo Weaver, ~ Signed [facility] Work Phone: History of Present illness Narrative* Sarah Espino APRN-ELECTRIC ENGINE MECHANIC - 01/11/2025 2:00 PM EDT Visit Type: [...] Espino 01/11/2025 1:31 PM documented in this [facility] Work Phone: Hospital Discharge instructions No data available for this section [facility] Progress note No data available for this section [facility] Progress note Author Iesha Lo [facility] Note Date/Time February 06, 2025 8:50 am [facility] [address], [address] [place] [address] OFFICE VISIT Date of Service: 02/06/25 MR#: [id number] Acct: [id number] Name: MARIXA AMOS Rep #: [id number] : 1995 Provider: STEFANIE Lo Age/Sex: 29/F [facility] Status: Signed Intake Vital Signs 07/12/24 08:32 02/02/25 15:25 02/06/25 08:17 Height 5 ft 3 in 5 ft 3 in 5 ft 3 in Weight: 185 lb 8 oz BMI 32.8 BP 118/70 Intake Visit Reasons: *EST* NOB IVF 12/26, GIL 09/13/25 Assistant Tennis Coach Required: No Is patient in pain?: No [...] mg-folate no.1 1 mg-dha 300 mg capsule (PNV-[place]) prednisone 10 mg tablet 10 mg PO [...] 3-4 times per week duration: 45-60 minutes/day cathy/sikhism: None seatbelt use: always do you feel safe at home: Yes 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 Hx Para 0 [...] Pulmonary (e.g.,TB,Asthma), Seasonal allergies, Drug/latex allergies/reactions, Breast, Integrated Specialist surgery, Anesthetic complications, History of abnormal [...] and Symptoms of Preeclampsia, Feeding Yes , [place] Education and Family Medical Leave or Disability [...] Cosigner Signature: Date (if applicable) CC: ~ [facility] Work Phone: Progress note Author Marcia Dallas [facility] Note Date/Time February 23, 2025 11:4 3am [facility] [address] [place] [address], [place] [address] OFFICE VISIT Date of Service: 02/23/25 MR#: [id number] Acct: [id number] Name: MARIXA AMOS Rep #: [id number] : 1995 Provider: Dr. 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 Date Name GA/Weeks Outcome Route Bth Weight [facility] 07/2023-Julio 20 still Male [...] Symptoms of Preeclampsia, Infant Feeding No , [place] Education and Family Medical Leave or Disability [...] Lyman DO> Date _ Marcia Yen DO Cosigner Signature: Date (if applicable) CC: ~ [facility] Work Phone: Reason for referral (narrative)No reason for referral information availableWOhioHealth [facility] Work Phone: Reason for visit Narrative* Other Medical (Routine) - Authorized Specialty Diagnoses / Procedures Referred By Denny serna Referred To Contact Reproductive Endocrinology and Infertility Diagnoses Fertility testing Procedures Hysteroscopy diagnostic Imelda Pollard MD [address] [place] [address] Phone: tel: fax: Referral ID Status Reason Start Date Expiration Date V isits Requested Visits Authorized [id number] Authorized 07/14/2024 07/14/2025 1 1 [facility] Work Phone: Reason for visit Narrative* Imaging (Routine) - Authorized Specialty Diagnoses / Procedures Referred By Denny serna Referred To Contact Radiology Diagnoses Female infertility Procedures TERRENCE US Pelvis Limited Follicles - Follicle Studies Performed Alejandra Chávez MD [address], [address] [address] Phone: tel: fax: Referral ID Status Reason Start Date Expiration Date Visits Requested Visits Authorized [id number] Authorized Perform Procedure 4 08/17/2025 8 8 [facility] Work Phone: Reason for visit Narrative* [...] FROM ASPIR OTH/THN SEMINAL Katelyn Benitez R, TURRET LATHE TENDER-ELECTRIC ENGINE MECHANIC [address] [place] [address] Phone: tel:[phone] fax:[phone] Referral ID Status Reason Start Date Expiration Date V isits Requested Visits Authorized [id number] Authorized 09/12/2024 09/12/2025 1 1 [facility] Work Phone: reason for visit Narrative* Imaging (Routine) - Authorized Specialty Diagnoses / Procedures Referred By Contac t Referred To Contact Radiology Diagnoses Female infertility Procedures TERRENCE US Pelvis Limited Follicles - Follicle Studies Performed Alejandra Chávez MD [address] [facility] [place] [address] Phone: tel: fax: Referral ID Status Reason Start Date Expiration Date Visits Requested Visits Authorized [id number] Authorized Perform Procedure 11/07/2024 11/07/2025 8 8 [facility] [facility] Work Phone: reason for visit Narrative* [...] FROM [employer] OTH/THN SEMINAL Katelyn Benitez R, TURRET LATHE TENDER-ELECTRIC ENGINE MECHANIC [address] [place] [address] Phone: tel: fax:[phone] Referral ID Status Reason Start Date Expiration Date V isits Requested Visits Authorized [id number] Authorized 10/19/2024 10/19/2025 1 1 [facility] Work Phone: reason for visit Narrative* Imaging (Routine) - Authorized Specialty Diagnoses / Procedures Referred By Denny serna Referred To Contact Radiology Diagnoses Female infertility Procedures TERRENCE US Endometrial Lining Check Imelda Pollard MD [address] [place] [address] Phone: tel: fax: Referral ID Status Reason Start Date Expiration Date Visits Requested Visits Authorized [id number] Authorized Perform Procedure 11/28/2024 11/28/2025 5 5 [facility] Work Phone: reason for visit Narrative* Procedure (Routine) - Authorized Specialty Diagnoses / Procedures Referred By Denny serna Referred To Contact Reproductive Endocrinology and Infertility Diagnoses Encounter for assisted reproductive fertility cycle Procedures Embryo Transfer NJ EMBRYO TRANSFER INTRAUTERINE CHG ULTRASONIC GUIDANCE INTRAOPERATIVE CHG THAWING CRYOPRESERVED EMBRYO CHG ASSTD EMBRYO HATCHING MICROTQS ANY METH CHG PREPJ EMBRYO TR Imelda Pollard MD [address] [place] [address] Phone: tel: fax: Referral ID Status Reason Start Date Expiration Date V isits Requested Visits Authorized [id number] Authorized 11/30/2024 08/29/2025 1 1 [facility] Work Phone: Summary Purpose Family History [...] Will Yes June 25 12:50pm Power of Handle Rounder Operator Yes June 25, 2023 12:50pm Advance Directive Response Recorded Date/ Time Name of Medical Power of Handle Rounder Operator Naila WADE LD September 29, 2023 8:44am Living Will Yes September 29 8:44am Power of Handle Rounder Operator Yes September 29, 2023 8:44am Advance Directive Response Recorded Date/ Time Name of Medical Power of Handle Rounder Operator ANNA WADE LD September 29, 2023 9:44am Living Will Yes September 29 9:44am Power of Handle Rounder Operator Yes September 29, 2023 9:44am Advance Directive Response Recorded Date/ Time Living Will Yes September 29 9:44am Do you have a Healthcare Power of Handle Rounder Operator? Yes September 29, 2023 9:44am Chief Complaint and Reason for Visit Chief Complaint ESTABLISH W/ NEW GI AFTER MOVING TO [place] 6 WK FU INT LABS Reason for [...] 12:46pm Chief Complaint Admit Date 1 Y FU [...] 06, 2025 8:12 am Obesity affecting February 06, 8:12am PCOS (polycystic ovarian syndrome) February 06, [...] 02, 2025 3:00pm *EST* NOB IVF 12/26, IGL 09/13/25January 8:12am Heart beat Check *IVF February [...] 6am Chief Complaint Admit Date 1 Y January [...] 8:32am Chief Complaint Admit Date 1 Y January [...] 06, 2025 8:12am Obesity affecting February 06, 8:12am February 06, 2025 8:12 am resulting [...] 06, 2025 8:12am Obesity affecting February 06, 2 025 8:12am February 06, 2025 8:12 am [...] 06, 2025 12:46pm Supervision of high-risk Augus 2024 12:46pm Ulcerative colitis April 06, 2025 12: 46pm Crohn's disease May 01, 2025 2:53pm History of anemia May 01, 2025 2:53pm History of maternal blood transfusion, c urrently May 01, 2025 2:53pm Obesity affecting April 2:53pm May 01, 2025 2:53pm resulting from in vitro fertil ization May 01, 2025 2:53pm Prior with demise Septem 2024 2:53pm Subchorionic hematoma in first trimester May 01, 2025 2:53pm Supervision of high-risk Septe [facility] 2024 2:53pm Ulcerative colitis May 01, 2025 [...] 09, 2025 11:16am Obesity affecting March 09, 025 11:16am March 09, 2025 11:1 6am [...] 06, 2025 12:46pm Supervision of high-risk Augus 2024 12:46pm Ulcerative colitis April 06, 2025 12: 46pm Crohn's disease May 01, 2025 2:53pm History of anemia May 01, 2025 2:53pm History of maternal blood transfusion, c urrently May 01, 2025 2:53pm Obesity affecting April 2:53pm May 01, 2025 2:53pm resulting from in vitro fertil ization May 01, 2025 2:53pm Prior with demise Septem 2024 2:53pm Subchorionic hematoma in first trimester [...] May 11, 2025 1:47pm Supervision of high-risk Lucoh manzano 2024 1:47pm Ulcerative colitis May 11, 2025 1:47pm Chief Complaint Admit Date Pre new ob, confirm preg, vitals December 12:46pm fu early spotting per February 02, 2025 3:00pm *EST* NOB IVF 12/26, GIL 09/13/25January 8:12am Heart beat Check *IVF February 23, 2025 10 :46am 13 WK OB *IVF March 09, 2025 11:1 6am INT LABS FOR 2 ORDERING DOCTORS February 8:32am 17 wk ob *IVF April 06, 2025 12: 46pm 21wk ob *IVF May 01, 2025 2:53pm FHT check, spotting May 11, 2025 1:47pm EORDERS May 12, 2025 8:49am Chief Complaint Admit Date fu early spotting per February 02, 2025 3:00pm *EST* NOB IVF 12/26, GIL 09/13/25January 8:12am Heart beat Check *IVF February 23, 2025 10 :46am 13 WK OB *IVF March 09, 2025 11:1 6am INT LABS FOR 2 ORDERING DOCTORS February 8:32am 17 wk ob *IVF April 06, 2025 12: 46pm 21wk ob *IVF May 01, 2025 2:53pm FHT check, spotting May 11, 2025 1:47pm EORDERS May 12, 2025 8:49am 4 M FU Chronic Gerd May 21, 2025 2:37pm Reason for Visit Admit Date Subchorionic hematoma in first trimester February 02, [...] 09, 2025 11:16am Obesity affecting March 09 025 11:16am March 09, 2025 11:1 6am [...] 01, 2025 2:53pm Supervision of high-risk Septe [facility] 2024 2:53pm Ulcerative colitis May 01, 2025 [...] May 11, 2025 1:47pm Supervision of high-risk Lucho manzano 2024 1:47pm Ulcerative colitis May 11, 2025 1:47pm Anemia May 21, 2025 2:37pm Ulcerative colitis, left sided May 21, 2025 2:37pm Chief Complaint Admit Date fu early spotting per SM February 02, 2025 3:00pm *EST* NOB IVF 12/26, GIL 09/13/25January 102024 8:12am Heart beat Check *IVF February 23, 2025 10 :46am 13 WK OB *IVF March 09, 2025 11:1 6am INT LABS FOR 2 ORDERING DOCTORS February 8:32am 17 wk ob *IVF April 06, 2025 12: 46pm 21wk ob *IVF May 01, 2025 2:53pm FHT check, spotting May 11, 2025 1:47pm EORDERS May 12, 2025 8:49am 4 M FU Chronic Gerd May 21, 2025 2:37pm 25wk ob *IVF June 01, 2025 2: 38pm Reason for Visit Admit Date Subchorionic hematoma in first trimester February 02, [...] 06, 2025 12:46pm Supervision of high-risk Augus 2024 12:46pm Ulcerative colitis April 06, 2025 12: 46pm Crohn's disease May 01, 2025 2:53pm History of anemia May 01, 2025 2:53pm History of maternal blood transfusion, c urrently May 01, 2025 2:53pm Obesity affecting April 2:53pm May 01, 2025 2:53pm resulting from in vitro fertil ization May 01, 2025 2:53pm Prior with demise 2024 2:53pm Subchorionic hematoma in first trimester May 01, 2025 2:53pm [facility] 2:53[facility] Ulcerative colitis May 01, 2025 2:53pm Crohn's disease May 11, 2025 1:47pm History of anemia May 11, 2025 1:47pm History of maternal blood transfusion, c urrently May 11, 2025 1:47pm Obesity affecting May [id number] 1:47pm May 11, 2025 1:47pm resulting from in vitro fertil ization May 11, 2025 1:47pm Prior with demise Septem 2024 1:47pm Subchorionic hematoma in first trimester May 11, 2025 1:47pm [facility] 2024 1:47pm Ulcerative colitis May 11, 2025 1:47pm Anemia May 21, 2025 2:37pm Ulcerative colitis, left sided May 21, 2025 2:37pm Anemia June 01, 2025 2: 38pm Crohn's disease June 01, 2025 2: 38pm History of anemia June 01, 2025 2: 38pm History of maternal blood transfusion, c urrently June 01, 2025 2:38pm Lupus anticoagulant affecting , antepartum June 01, 2025 2:38pm Obesity affecting June 01, 2025 2:38pm June 01, 2025 2: 38pm resulting from in vitro fertil ization June 01, 2025 2:38pm Prior with demise Octobe r 2024 2:38pm Subchorionic hematoma in first trimester June 01, 2025 2:38pm Supervision of high-risk Octob er 2024 2:38pm Ulcerative colitis, left sided June 012024 2:38pm Ulcerative colitis June 01, 2025 2: 38pm Additional Source Comments INFORMATION SOURCE (unrecogn ized section and content) DATE CREATED AUTHOR 07/01/2019 [facility] DATE CREATED AUTHOR AUTHOR'S ORGANIZ ATION 04/10/2023 [facility] DATE CREATED AUTHOR AUTHOR'S ORGANIZ ATION 11/26/2023 [facility] ([place]) DATE CREATED AUTHOR AUTHOR'S ORGANIZ ATION 12/22/2024 [facility] DATE CREATED AUTHOR AUTHOR'S ORGANIZ ATION 12/22/2024 [facility] DATE CREATED AUTHOR AUTHOR'S ORGANIZ ATION 01/26/2025 [facility] DATE CREATED AUTHOR AUTHOR'S ORGANIZ ATION 01/29/2025 [facility] DATE CREATED AUTHOR AUTHOR'S ORGANIZ ATION 05/16/2025 [facility] DATE CREATED AUTHOR AUTHOR'S ORGANIZ ATION 05/19/2025 [facility] DATE CREATED AUTHOR AUTHOR'S ORGANIZ ATION 06/07/[address] [facility] Goals (unrecognized section and content) Type Care Experience Labor Preferences-CB /BF classes: []labor support person: []labor intervention preferences: []pain management options preferred: []cut cord/dad catch: []: []PP control planned: []discussed possible routes of delivery and associated risks: []special requests: [] Reason for Visit (unrecogniz ed section and content) Reason Onset Date Comments Appointment Request 04/05/2023 Reason Onset Date Comments NO SURPRISE ACT 04/09/2023 Reason Onset Date Comments New Patient 04/09/2023 Reason Comments Follow-up Reason Comments Consult Reason Comments Annual Exam Establish Care Reason Comments Wart Right 3rd toe planta r wart-pt states was treated with ln2 at [facility]. Reason Comments Vaginal Discharge Care Teams (unrecognized [...] Primary Care Provider Active Dr. Domo Weaver , Attending Provider, Referring Provider Active Team Status: Active Member Role Status Dates Dr. Domo Weaver DO Attending Provider, Other Prov ider Active CATRACHITO, MAGO Primary Care Provider, Referring Prov ider Active [...] CNM Attending Provider, Referring Pro vider Active [employer] Veneer Taper Relationship Specialty Start Date End Date Amy Cherry RN Registered Nurse 07/17/24 [employer] Relationship Specialty Start Date End Date Amy Cherry RN Registered Nurse 07/17/24 [employer] Relationship Specialty Start Date End Date Amy Cherry RN Registered Nurse 07/17/24 [employer] Relationship Specialty Start Date End Date Amy Cherry RN Registered Nurse 07/17/24 [employer] Relationship Specialty Start Date End Date Amy Cherry RN Registered Nurse 07/17/24 [employer] Relationship Specialty Start Date End Date Amy Cherry RN Registered Nurse 07/17/24 [employer] Relationship Specialty Start Date End Date Amy Cherry RN Registered Nurse 07/17/24 [employer] Relationship Specialty Start Date End Date Tsiros, Amy, RN Registered Nurse 07/17/24 [employer] Relationship Specialty Start Date End Date [facility] RN Registered Nurse 07/17/24 [employer] Relationship Specialty Start Date End Date Amy Cherry, RN Registered Nurse 07/17/24 [employer] Relationship Specialty Start Date End Date [facility] das, RN Registered Nurse 07/17/24 [employer] Relationship Specialty [place] [address] [address] [facility] [address] [place] [address] PCP - General Internal Medicine 12/11/24 [facility] [place], RN Registered Nurse 07/17/24 [employer] Relationship Specialty [place] [address] [address] [address] PCP - General Internal Medicine 12/11/24 [facility], RN Registered Nurse 07/17/24 [employer] Relationship Specialty [place] [address] [address] [address] PCP - General Internal Medicine 12/11/24 [facility], RN Registered Nurse 07/17/24 [employer] Relationship Specialty Start [place] [address] [address] [address] PCP - General Internal Medicine 12/11/24 [facility], RN Registered Nurse 07/17/24 Team Status: Active [...] January 06, 2025 End: January 06, 2025 [employer] Relationship Specialty Start [place] [address] [address] [address] [place] [address] PCP - General Internal Medicine 12/11/24 Amy Cherry, RN Registered Nurse 07/17/24 [employer] Relationship Specialty Start [place] [address] [facility] [address] [place] [address] PCP - General Internal Medicine 12/11/24 Amy [...] May 11, 2025 End: May 11, 2025 Team Status: Inactive Member Role/Relationship Status Dates Dr. Catrachito Mercedes MD Primary Care Provider Active Start: May 12, 2025 End: May 12, 2025 Dr. Domo Weaver DO Attending Provider Active Start: May 12, 2025 End: May 12, 2025 Dr. Domo Weaver DO Referring Provider Active Start: May 12, 2025 End: May 12, 2025 Team Status: Active Member Role/Relationship Status Dates Dr. Catrachito Mercedes MD Primary Care Provider Active Start: May 13, 2025 Dr. Domo Weaver DO Attending Provider Active Start: May 13, 2025 Team Status: Active Member Role/Relationship Status Dates Dr. Catrachito Mercedes MD Primary care physician Active Team Status: Inactive Member Role/Relationship Status Dates Dr. Catrachito Mercedes MD Primary care physician Active Start: February 02, 2025 End: February 02, 2025 Dr. Domo Weaver DO Attending physician Active Start: February 02, 2025 End: February 02, 2025 Dr. Domo Weaver DO Referring Provider Active Start: February 02, 2025 End: February 02, 2025 Team Status: Inactive Member Role/Relationship Status Dates Dr. Catrachito Mercedes MD Primary care physician Active Start: February 02, 2025 End: February 02, 2025 Dr. Catrachito Mercedes MD Referring Provider Active Start: February 02, 2025 End: February 02, 2025 Mary Beth Allen CNM Attending physician Active Start: February 02, 2025 End: February 02, 2025 Team Status: Inactive Member Role/Relationship Status Dates Dr. Catrachito Mercedes MD Primary care physician Active Start: February 06, 2025 End: February 06, 2025 Dr. Catrachito Mercedes MD Referring Provider Active Start: February 06, 2025 End: February 06, 2025 Iesha Lo CNM Attending physician Active Start: February 06, 2025 End: February 06, 2025 Team Status: Inactive Member Role/Relationship Status Dates Dr. Catrachito Mercedes MD Primary care physician Active Start: February 06, 2025 End: February 06, 2025 Dr. Carmen Lugo MD Attending physician Active Start: February 06, 2025 End: February 06, 2025 Dr. Carmen Lugo MD Referring Provider Active Start: February 06, 2025 End: February 06, 2025 Team Status: Inactive Member Role/Relationship Status Dates Dr. Catrachito Mercedes MD Primary care physician Active Start: February 23, 2025 End: February 23, 2025 Dr. Catrachito Mercedes MD Referring Provider Active Start: February 23, 2025 End: February 23, 2025 Dr. Marcia Yen DO Attending physician Acti ve Start: February 23, 2025 End: February 23, 2025 Team Status: Inactive Member Role/Relationship Status Dates Dr. Catrachito Mercedes MD Primary care physician Active Start: March 09, 2025 End: March 09, 2025 Dr. Catrachito Mercedes MD Referring Provider Active Start: March 09, 2025 End: March 09, 2025 Dr. Carmen Lugo MD Attending physician Active Start: March 09, 2025 End: March 09, 2025 Team Status: Inactive Member Role/Relationship Status Dates Dr. Catrachito Mrecedes MD Primary care physician Active Start: March 10, 2025 End: March 10, 2025 Dr. Domo Weaver DO Attending physician Active Start: March 10, 2025 End: March 10, 2025 Dr. Domo Weaver DO Referring Provider Active Start: March 10, 2025 End: March 10, 2025 Dr. Carmen Lugo MD Nurse Practitioner Active Start: March 10, 2025 End: March 10, 2025 Team Status: Inactive Member Role/Relationship Status Dates Dr. Catrachito Mercedes MD Primary care physician Active Start: April 06, 2025 End: April 06, 2025 Dr. Catrachito Mercedes MD Referring Provider Active Start: April 06, 2025 End: April 06, 2025 Iesha Lo CNM Attending physician Active Start: April 06, 2025 End: April 06, 2025 Team Status: Inactive Member Role/Relationship Status Dates Dr. Catrachito Mercedes MD Primary care physician Active Start: May 01, 2025 End: May 01, 2025 Dr. Catrachito Mercedes MD Referring Provider Active Start: May 01, 2025 End: May 01, 2025 Dr. Carmen Lugo MD Attending physician Active Start: May 01, 2025 End: May 01, 2025 Team Status: Inactive Member Role/Relationship Status Dates Dr. Catrachito Mercedes MD Primary care physician Active Start: May 11, 2025 End: May 11, 2025 Dr. Catrachito Mercedes MD Referring Provider Active Start: May 11, 2025 End: May 11, 2025 Iesha Lo CNM Attending physician Active Start: May 11, 2025 End: May 11, 2025 Team Status: Inactive Member Role/Relationship Status Dates Dr. Catrachito Mercedes MD Primary care physician Active Start: May 12, 2025 End: May 12, 2025 Dr. Domo Weaver DO Attending physician Active Start: May 12, 2025 End: May 12, 2025 Dr. Domo Weaver DO Referring Provider Active Start: May 12, 2025 End: May 12, 2025 Team Status: Inactive Member Role/Relationship Status Dates Dr. Catrachito Mercedes MD Primary care physician Active Start: May 13, 2025 End: May 13, 2025 Dr. Domo Weaver DO Attending physician Active Start: May 13, 2025 End: May 13, 2025 Team Status: Inactive Member Role/Relationship Status Dates Dr. Catrachito Mercedes MD Primary care physician Active Start: May 21, 2025 End: May 21, 2025 Dr. Catrachito Mercedes MD Referring Provider Active Start: May 21, 2025 End: May 21, 2025 DERRICK Sanders Attending physician Active Start: May 21, 2025 End: May 21, 2025 Team Status: Inactive Member Role/Relationship Status Dates Dr. Catrachito Mercedes MD Primary care physician Active Start: June 01, 2025 End: June 01, 2025 Dr. Catrachito Mercedes MD Referring Provider Active Start: June 01, 2025 End: June 01, 2025 Dr. Marcia Yen DO Attending physician Acti ve Start: June 01, 2025 End: June 01, 2025 FOR RECORDS PERTAINING TO PATIENTS WHO [...] BE BASED ON THE PRIMARY CLINICAL RECORDS. [facility]. provides no warranty or guarantee of the accuracy or completeness of information in this document.
--- OUTSIDE RECORDS SUMMARY | 2025-06-15 06:47 | XMS RPT_ITS | CCD ---
Author Organization [facility] Care Team Providers Care Weigh And Charge Worker Name Role Phone Care Physician, No Primary Primary Care Provider Unavailable Care Physician, No Primary Referring Provider Un available FriendDr. Oliveros Attending Provider [phone] Ezequiel VU, MIRELLA-C Imelda Fernández Attending Provider [phone] Care Physician, No Primary Primary Care Provider Unavailable Care Physician, No Primary Referring Provider Un available Care Physician, No Primary Primary Care Provider Unavailable Care Physician, No Primary Referring Provider Un available Ezequiel VU, PERSONNEL RESEARCH PSYCHOLOGIST-C Imelda Fernández Attending Provider [phone] Unavailable Primary Care Provider Unavailabl e Care Physician, No Primary Primary Care Provider Unavailable Care Physician, No Primary Referring Provider Un available Friend, Dr. Oliveros Attending Provider CATRACHITO MERCEDES MD Primary Care Physician FriendDr. Oliveros Other Provider [phone] MAGO, NASTAMICHEL Primary Care Provider Unavailab le MAGO, NASTARAN Referring Provider Unavailable Care Physician, No Primary Primary Care Provider Unavailable Care Physician, No Primary Referring Provider Un available FriendDr. Oliveros Attending Provider [phone] FriendDr. Oliveros Other Provider [phone] MAGO, NASTARAN Primary Care Provider Unavailab le [...] Provider Un available STEFANIE Lo Attending Provider [phone] Unavailable Primary Care Provider Unavailvy Cherry RN, Amy Unavailable Unavailable Jo Ann MARQUEZ, Amy Unavailable Unavailable Denise Ordonez MD Primary Care Provider [phone] MARCIA KISER Attending Unavailable MARCIA KISER Attending Unavailable ANABELL MICHAEL Attending Unava ilDENISE Adler Primary Care Unavailable Friend DO, Dr. Oliveros Attending Provider Mago BLANCO, Dr. Winston Primary Care Provider Mago BLANCO, Dr. Winston Referring Provider [phone] Friend , Dr. Oliveros Referring Provider DENISE [...] Manfred BLANCO, Dr. Morales Other Provider [phone] Mago BLANCO, Dr. Winston Primary Care Provider Dr. Catrachito Mercedes MD Referring Provider [phone] Dr. Domo Weaver DO Attending Provider Owen [...] Physician Manfred BLANCO, Dr. Morales Nurse Practitioner [phone] Calvin CAZARESCMarcia Attending Physician [phone] Mago, Nastaran Primary Care Unavailable Carmen Lugo [...] Attending Unavailable Mago, Nastaran Primary Care Unavailable Amgo, Nastaran Referring Unavailable Mago, Nastaran Primary Care [...] 1 Refill(s), 09/24/23 11:51:00 AM EST, Pharmacy: [facility] #[id number], 160, cm, 08/27/23 10:15:00 EST, Height, kg, [...] day(s), # 12 tab(s), 0 Refill(s), Pharmacy: [facility] #[id number], Postoperative pain, 160, cm, 08/27/23 10:15:00 EST, [...] 0 Refill(s), 09/10/23 11:51:00 AM EST, Pharmacy: [facility] #[id number], 160, cm, 12/29/23 10:15:00 EST, Height, kg, [...] 2025 12:00am May 21, 2025 3:01pm Pnv 39-Fbsz-Nfwoq Jlks-Hnlyk-1 30 mg iron-10 mg iron-1 mg capsule (3 sources) Start: 05-21-2025 Pnv 30-Iron-Fo lic Jrqy-Bblxb-7 30 mg iron-10 mg iron-1 mg capsule [...] 1 tablet by damon th once daily Prenat.Vits,Mario,Yqd-Usvp-Hprai Active 1 TABLET PO DAILY October 22, 2021 12:00am Start: 10-22-2021 take 1 tablet by damon th once daily Prenat.Vits,Mario,Oeg-Asmd-Eurjy Active 1 TABLET PO DAILY October 22, 2021 1:00am 1-VKAV-FNLXS ACID-OM3 ORAL (20 sources) Start: 12-07-2019 take 1 capsule by mouth once daily 1-OXWH-LJQPZ ACID-OM3 ORAL Take 1 capsule by mouth [...] PO July 12, 2024 1:00am chorionic gonadotropin 26954 unt/ml injectable solution (15 sources) Gonadotropin Start: 11-07-2024 End: 11-22-2024 inject [id number] [IU] by subcutaneous injection once chorionic gonadotropin (Pregnyl) 10,000 unit injection Indications: Female infertility Reconstitute according to instructions and inject 10,000 units (1 mL) under the skin as a one time dose, as directed per provider for trigger. 1 each 11/08/2024 11/22/2024 Discontinued (Therapy completed) Start: 08-18-2024 End: 10-11-2024 inject [id number] [IU] by subcutaneous injection once chorionic gonadotropin [...] 07, 2023 1:00am September 08, 2023 1:04am [place] 0-Ysz-Awi-Fish Oil (16 sources) Start: 07-12-2024 End: 01-26-2025 [place] 5-Ghb-Ckw-Fish Oil (Fish Oil) 300-1,000 mg capsule Discontinued 1 NMA PO daily July 12, 2024 1:00am January 26, 2025 1:04pm Start: 07-12-2024 [place] 3-Dha-Ep a-Fish Oil (Fish Oil) 300-1,000 mg [...] 10/11/2024 Discontinued (Therapy completed) 0.75 ml follitropin usmanth 600 unt/ml pen injector (1 source) Start: [...] mouth once daily. 3 tablets Active Mv-Mins 93-Skgk-Wdncx No.1-D spencer (Pnv-[place]) 28-1-300 mg capsule (15 sources) Start: 01-26-2025 End: 05-21-2025 Mv-Mins 01-Xarr-Yfroo No.1-D spencer (Pnv-[place]) 28-1-300 mg capsule Discontinued NMA PO January 26, 2025 12:00am May 21, 2025 3:01pm Start: 01-26-2025 Mv-Mins 71-Iro n-Folic No.1-Dha (Pnv-[place]) 28-1-300 mg capsule Active NMA PO January [...] 0 Refill(s), 09/01/23 11:51:00 AM EST, Pharmacy: [facility] #[id number], 160, cm, 08/27/23 10:15:00 EST, Height, kg, [...] for five day and then one tab. Prenat.Vits,Mario,Reg-Mnbp-Zxk ic tablet (16 sources) Start: 10-22-2021 End: 01-26-2025 Prenat.Vits,Mario,Qjz-Wztc-Wah ic tablet Discontinued 1 {tbl} PO DAILY October 22, 2021 1:00am January 26, 2025 1:05pm Start: 10-22-2021 Prenat.Vits,Ca l,Oln-Wfog-Qnekc tablet Active 1 {tbl} PO DAILY October [...] 11-08-2024 syringe, disposable, (BD Saf ety-Debby with Luer-Debyb) 3 mL syringe Indications: Female infertility Use [...] Test Name Value Interpretation Reference Range Facility Placement Specialist Office Visit Reporton 06-01-2025 Placement Specialist Office Visit Report [facility] [address], [address] [place] [address] OFFICE VISIT Date of Service: 06/01/25 MR#: [id number] Acct: [id number] Name: MARIXA AMOS Rep #: [id number] : 1995 Provider: Dr. 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 (more content not included)... Normal [facility] L3410.9992on 05-22-2025 [facility] Misc. COMMENT Normal . [facility] Comment on above: Order Comment: JUAN Das ER/FZ [id number] Mata lei Result Comment: Test Ordered: [id number] Ustekinumab Drug + Antibody Ustekinumab 8.9 ug/mL [...] R, et al. Clin Gastroenterol Hepatol 2017;15: 4373-4702. 4. Tessa SP, et al. Br J Dermatol;2015:173;855-857. 5. Grover H, et al. PLOS ONE DOI;10:1371/journal.pone.0065504. 6. Allan Billingsley, et al. Br J Dermatol 2014;170:261-273. These tests were developed and their performance characteristics determined by [facility]. They have not been cleared or approved by the Food and Drug Administration. However, both drug and anti-drug antibody assays have been developed and validated in accordance with FDA Guidance for Industry documents: Bioanalytical Method Validation (2013) and Assay Development and Validation for Immunogenicity Testing of Therapeutic Protein Products (2016). Performed at: [facility] [address] [place] [id number] It Integration Architect: Michelle Acharya MD, Phone: [phone] Performed at: [facility] [employer] [id number] It Integration Architect: Almas Saavedra PhD, Phone: [phone] Performed By: #### L 101.9800, L501.0064, L3280.9846, L100.0100, L500.5550 #### [facility] [place], [address] Gastroenterology Visit Repor ton 05-21-2025 Gastroenterology Visit Report [facility] [address] [place] [address] OFFICE VISIT Date of Service: 05/21/25 MR#: [id number] Acct: [id number] Name: MARIXA AMOS Rep #: [id number] : 1995 Provider: DERRICK dixon Age/Sex: 29/F Location: [facility] Status: Signed Intake Vital Signs 03/09/25 [...] FU Chronic Gerd Chief Complaint: UC flare Regulatory Associate Required: No Accompanied by: Self Is patient [...] 3-4 times per week duration: 45-60 minutes/day cathy/sabianism: None seatbelt use: always do you feel safe at home: Yes 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 Normal [facility] M7400.3302on 05-17-2025 M7400.3302 ____ [facility] ORIGINAL REPORT ON FILE IN LAB CONTAINS ADDITIONAL TEST SITE INFORMATION. Giardia Lamblia EIA NEGATIVE [facility] Comment on above: Performed By: #### L 101.9900, L501.6710, L3410.9992, L100.0100, L500.4050 #### [facility] [address] [place], [address] Ova and Parasites 8623on OP OVA AND PARASITES EX AM, ROUTINE These results were obtained using wet preparation(s) and trichrome stained smear. This test does not include testing for Crytosporidium parvum, Cyclospora, or Microsporidia. One negative specimen does not rule out the possibility of a parasitic infection. TESTING PERFORMED AT [facility]. ORIGINAL REPORT ON FILE IN LAB CONTAINS ADDITIONAL TEST SITE INFORMATION. Ova/Parasite Exam NO OVA, CYSTS, OR PARASITES FOUND. Normal [facility] Comment on above: Performed By: #### L 101.9900, L501.6710, L3410.9992, L100.0100, L500.4050 #### [facility] [address] [place], [place], [id number] Calprotectin, Stoolon [address] 187 ug/g Abnormal 0-120 [facility] Comment on above: Order Comment: N day 21 lab Result Comment: Conc entration Interpretation Follow-Up < 5 - 50 ug/g Normal None >50 -120 ug/g Borderline Re-evaluate in 4-6 weeks >120 ug/g Abnormal Repeat as clinically indicated Performed at: [address] [id number] It Integration Architect: Almas Saavedra PhD, Phone: [phone] Performed at: [address] [id number] It Integration Architect: Jose Claros MD, Phone: [phone] Performed By: #### L 758.2600 #### [facility] [address] [place], [place], [id number] Fecal Fat, Qualitativeon FATS, NEUTRAL Normal Normal . [facility] Comment on above: Order Comment: N day 21 lab Result Comment: Norm al (<60 Droplets/HPF) Performed By: #### L 801.2600 #### [facility] [address] [place], [place], [id number] FATS, TOTAL Normal Normal . [facility] Comment on above: Order Comment: N day 21 lab Result Comment: Norm al (<100 Droplets/HPF) Performed By: #### L 801.2600 #### [facility] [address] [place], [address] CIRANon 05-15-2025 Dil Dewey Viper Venom 40.7 seconds Normal 30.0-42.0 [facility] Comment on above: Result Comment: DRVV T Confirmation Test Performed: POSITIVE Performed By: #### 1 10593, A1C, 200886, [id number] #### [facility] [address] [place] [address] [place] Interpretation See Below Normal [facility] Comment on above: Result Comment: Lupu s Anticoagulant DETECTED by DRVVT method. Performed By: #### 1 65602, A1C, 862666, 575690 #### [facility] [address] [place] [address] Platelet neutraliz. Not Done Normal [facility] Comment on above: Performed By: #### 1 58606, A1C, 864709, 240927 #### [facility] [address] [place] [address] CDIFF (PCR)on 05-13-2025 CDIFF Pending [phone] NAP1-B1 Presumptive Negative *for epidemiolologic???use C. Diff PCR Negative- No toxigenic C. Diff Detected Normal [facility] Comment on above: Performed By: #### L 801.2600 #### [facility] [address] [place], [place], [id number] Calprotectin stoolOrdered By : Domo Weaver on 05-13-2025 Calprotectin stool 187 ug/g High 0-120 [facility] Comment on above: Concentration Interp retation Follow-Up< 5 - 50 ug/g Normal None>50 -120 ug/g Borderline Re-evaluate in 4-6 weeks >120 ug/g Abnormal Repeat as clinically indicatedPerformed at: - [facility] [address] [id number] Director: Almas Saavedra PhD, Phone: [phone] at: [facility] [address] [id number] Director: Jose Claros MD, Phone: [phone] Clostridium difficile detect ion by polymerase chain reactionOrdered By: Domo Weaver on 05-13-2025 C. difficile DNA ALEKSEY+probe Ql (Unsp spec) [facility] ENTERIC PATHOGEN PANEL STOOL on 05-13-2025 EP PANEL CAMPYLOBACTER Not Detected Norovirus Not Detected Rotavirus Not Detected Salmonella Not Detected Shiga Toxin Not Detected Shigella sp. Not Detected VIBRIO Not Detected Yersinia Not Detected Normal [facility] Comment on above: Performed By: #### L 801.2600 #### [facility] [address] [place], [place], [address] Fecal fat detectionOrdered B y: Domoyamileth Weaver on 05-13-2025 Fat Ql (Stl) Normal . [facility] Comment on above: Normal (<100 Droplet s/HPF) No Panel InformationOrdered By: Domo Weaver on 05-13-2025 Stool Neutral Fats Normal . [facility] Comment on above: Normal (<60 Droplets /HPF) Stool Lactoferrin/WBCon 04-30 WBCST Normal Reference Ran ge = Negative Fecal WBC Lactoferrin Negative: No Fecal WBC Lactoferrin present Normal [facility] Comment on above: Performed By: #### L 801.2600 #### [facility] [address] [place], [place], [address] Stool lactoferrin detection by immunoassayOrdered By: Domo Weaver on 05-13-2025 Lactoferrin IA Ql (Stl) [facility] Absolute lymphocyte countOrd ered By: Domo Weaver on 05-12-2025 Lymphocytes Auto (Unsp spec) [#/Vol] 1.66 10*3/uL 0.83-4.51 [facility] Absolute neutrophil countOrd ered By: Domoyamileth Weaver on 05-12-2025 Neutrophils (Bld) [#/Vol] 6.9 10*3/uL 2.0-7.7 [facility] Anion gap in Serum or Plasma Ordered By: Domo Weaver on 05-12-2025 Anion gap [Moles/Vol] 13 mmol/L 5-15 [facility] Automated lymphocyte count a s percentage of total leukocytesOrdered By: Domo Weaver on 05-12-2025 Lymphocytes/100 WBC Auto (Unsp spec) 18.0 % Low 19-41 [facility] BUN/creatinine ratioOrdered By: Domoyamileth Weaver on 05-12-2025 Urea nitrogen/Creatinine [Mass ratio] 10.9 mg/mg 10-20 [facility] Basophil percentageOrdered B y: Domo Weaver on 05-12-2025 Basophils/100 WBC (Bld) 0.3 % 0-1 [facility] Bilirubin, totalOrdered By: Domo Weaver on 05-12-2025 Bilirubin [Mass/Vol] 0.16 mg/dL Normal 0.00-1.30 [facility] Comment on above: Performed By: #### L 101.9900, L501.6710, L3410.9992, L100.0100, L500.4050 #### [facility] [address] [place], [address] CBC W/Diff, Automatedon 04-30 Absolute Lymph 1.66 X10 3/uL Normal 0.83-4.51 [facility] Comment on above: Performed By: #### L 101.9900, L501.6710, L3410.9992, L100.0100, L500.4050 #### [facility] [address] [place], [address] Absolute Neut 6.9 X10 3/uL Normal 2.0-7.7 [facility] Comment on above: Performed By: #### L 101.9900, L501.6710, L3410.9992, L100.0100, L500.4050 #### [facility] [address] [place], [address] Basophils/100 WBC (Bld) 0.3 % Normal 0-1 [facility] Comment on above: Performed By: #### L 101.9900, L501.6710, L3410.9992, L100.0100, L500.4050 #### [facility] [address] [place], [address] Eosinophils/100 WBC (Bld) 1.1 % Normal 0-5 [facility] Comment on above: Performed By: #### L 101.9900, L501.6710, L3410.9992, L100.0100, L500.4050 #### [facility] [address] [place], [address] Erythrocyte distribution width (RBC) [Ratio] 12.7 % Normal 11.6-14.6 [facility] Comment on above: Performed By: #### L 101.9900, L501.6710, L3410.9992, L100.0100, L500.4050 #### [facility] [address] [place], [address] Hematocrit (Bld) [Volume fraction] 30.0 % Low 37-47 [facility] Comment on above: Performed By: #### L 101.9900, L501.6710, L3410.9992, L100.0100, L500.4050 #### [facility] [address] [place], [address] Hemoglobin (Bld) [Mass/Vol] 10.0 g/dL Low 12.0-15.0 [facility] Comment on above: Performed By: #### L 101.9900, L501.6710, L3410.9992, L100.0100, L500.4050 #### [facility] [address] [place], [address] IG% 0.900 Normal 0.0-0.9 [facility] Comment on above: Result Comment: IG% - Immature Granulocytes (promyelocytes, myelocytes and metamyelocytes) > 1% indicates that a LEFT SHIFT is Present. Performed By: #### L 101.9900, L501.6710, L3410.9992, L100.0100, L500.4050 #### [facility] [address] [place], [address] Lymphocytes/100 WBC (Bld) 18.0 % Low 19-41 [facility] Comment on above: Performed By: #### L 101.9900, L501.6710, L3410.9992, L100.0100, L500.4050 #### [facility] [address] [place], [address] MCH (RBC) [Entitic mass] 29.9 pg Normal 27.0-32.0 [facility] Comment on above: Performed By: #### L 101.9900, L501.6710, L3410.9992, L100.0100, L500.4050 #### [facility] [address] [place], [address] MCHC (RBC) [Mass/Vol] 33.3 g/dL Normal 32-36 [facility] Comment on above: Performed By: #### L 101.9900, L501.6710, L3410.9992, L100.0100, L500.4050 #### [facility] [address] [place], [address] MCV (RBC) [Entitic vol] 89.6 fL Normal 81-99 [facility] Comment on above: Performed By: #### L 101.9900, L501.6710, L3410.9992, L100.0100, L500.4050 #### [facility] [address] [place], [address] Monocytes/100 WBC (Bld) 4.7 % Normal 0-10 [facility] Comment on above: Performed By: #### L 101.9900, L501.6710, L3410.9992, L100.0100, L500.4050 #### [facility] [address] [place], [address] Neutrophils/100 WBC (Bld) 75.0 % High 47-70 [facility] Comment on above: Performed By: #### L 101.9900, L501.6710, L3410.9992, L100.0100, L500.4050 #### [facility] [address] [place], [address] Nucleated RBC (Bld) [#/Vol] 0 10*3/uL Normal 0-5 [facility] Comment on above: Performed By: #### L 101.9900, L501.6710, L3410.9992, L100.0100, L500.4050 #### [facility] [address] [place], [address] Platelet mean volume (Bld) [Entitic vol] 10.2 fL Normal 6.2-12.0 [facility] Comment on above: Performed By: #### L 101.9900, L501.6710, L3410.9992, L100.0100, L500.4050 #### [facility] [address] [place], [address] Platelets (Bld) [#/Vol] 313 10*3/uL Normal 150-450 [facility] Comment on above: Performed By: #### L 101.9900, L501.6710, L3410.9992, L100.0100, L500.4050 #### [facility] [address] [place], [address] RBC (Bld) [#/Vol] 3.35 10*6/uL Low 4.2-5.4 [facility] Comment on above: Performed By: #### L 101.9900, L501.6710, L3410.9992, L100.0100, L500.4050 #### [facility] [address] [place], [address] RDW SD 41.3 fl Normal 35.1-43.9 [facility] Comment on above: Performed By: #### L 101.9900, L501.6710, L3410.9992, L100.0100, L500.4050 #### [facility] [address] [place], [address] WBC (Bld) [#/Vol] 9.2 10*3/uL Normal 4.4-11.0 [facility] Comment on above: Performed By: #### L 101.9900, L501.6710, L3410.9992, L100.0100, L500.4050 #### [facility] [address] [place], [address] CRPon 05-12-2025 C-REACTIVE PROT 8.18 mg/L High 0.0-3.0 [facility] Comment on above: Performed By: #### L 101.9900, L501.6710, L3410.9992, L100.0100, L500.4050 #### [facility] [address] [place], [address] Carbon dioxide, total [Moles /volume] in Central venous bloodOrdered By: Domo Weaver on 05-12-2025 CO2 [Moles/Vol] 17.8 mmol/L Low 21.0-32.0 [facility] Comment on above: Performed By: #### L 101.9900, L501.6710, L3410.9992, L100.0100, L500.4050 #### [facility] [address] [place], [address] Chloride assayOrdered By: Ra clarita Weaver on 05-12-2025 Chloride [Moles/Vol] 107 mmol/L Normal 98-108 [facility] Comment on above: Performed By: #### L 101.9900, L501.6710, L3410.9992, L100.0100, L500.4050 #### [facility] [address] [place], [address] Comprehensive Metabolic Prof lo 05-12-2025 ALK PHOS 62 U/L Normal 35-104 [facility] Comment on above: Performed By: #### L 101.9900, L501.6710, L3410.9992, L100.0100, L500.4050 #### [facility] [address] [place], [address] BUN/CRE 10.9 RATIO Normal 10-20 [facility] Comment on above: Performed By: #### L 101.9900, L501.6710, L3410.9992, L100.0100, L500.4050 #### [facility] [address] [place], [address] GAP 13 Normal 5-15 [facility] Comment on above: Performed By: #### L 101.9900, L501.6710, L3410.9992, L100.0100, L500.4050 #### [facility] [address] [place], [address] Potassium [Moles/Vol] 3.7 mmol/L Normal 3.3-5.1 [facility] Comment on above: Performed By: #### L 101.9900, L501.6710, L3410.9992, L100.0100, L500.4050 #### [facility] [address] [place], [address] T PROT 6.8 g/dL Normal 5.9-8.4 [facility] Comment on above: Performed By: #### L 101.9900, L501.6710, L3410.9992, L100.0100, L500.4050 #### [facility] [address] [place], [address] Comprehensive Metabolic Prof ilOrdered By: Domo Weaver on 05-12-2025 AST [Catalytic activity/Vol] 23 U/L Normal <=31 [facility] Comment on above: Performed By: #### L 101.9900, L501.6710, L3410.9992, L100.0100, L500.4050 #### [facility] [address] [place], [address] Eosinophil percentageOrdered By: Domo Weaver on 05-12-2025 Eosinophils/100 WBC (Bld) 1.1 % 0-5 [facility] Erythrocyte Sed Rateon 05-12 SED RATE 29 mm/hr Normal 0-30 [facility] Comment on above: Performed By: #### L 101.9900, L501.6710, L3410.9992, L100.0100, L500.4050 #### [facility] [address] [place], [place], [id number] Erythrocyte distribution wid th ratioOrdered By: Domo Weaver on 05-12-2025 Erythrocyte distribution width (RBC) [Ratio] 12.7 % 11.6-14.6 [facility] Erythrocyte distribution wid th standard deviationOrdered By: Domo Weaver on 05-12-2025 Erythrocyte distribution width (RBC) [Ratio] 41.3 fl 35.1-43.9 [facility] Erythrocyte sedimentation ra teOrdered By: Domo Weaver on 05-12-2025 ESR (Bld) [Velocity] 29 mm/h 0-30 [facility] Glomerular filtration rate ( GFR) estimation/1.73 sq m using serum, plasma, or whole bOrdered By: Domo Weaver on 05-12-2025 GFR/1.73 sq M.predicted among non-blacks MDRD (S/P/Bld) [Vol rate/Area] 129 mL/min/{1.73_m2} Normal >60 [facility] Comment on above: mL/min/1.73m2 CKD-EP I Creatinine Equation (2020) Result Comment: mL/m in/1.73m2 CKD-EPI Creatinine Equation (2020) Performed By: #### L 101.9900, L501.6710, L3410.9992, L100.0100, L500.4050 #### [facility] [address] [place], [address] Hematocrit Auto (Bld) [Volum e fraction]Ordered By: Domo Weaver on 05-12-2025 Hematocrit (Bld) [Volume fraction] 30.0 % Low 37-47 [facility] Hemoglobin measurementOrdere d By: Domo Weaver on 05-12-2025 Hemoglobin (Bld) [Mass/Vol] 10.0 g/dL Low 12.0-15.0 [facility] Immature granulocytes/100 WB C Auto (Bld)Ordered By: Domo Weaver on 05-12-2025 Immature granulocytes/100 WBC (Bld) 0.900 % 0.0-0.9 [facility] Comment on above: [...] 05-12-2025 MCHC (RBC) [Mass/Vol] 33.3 g/dL 32-36 [facility] Mean platelet volume determi nationOrdered By: Domo Weaver on 05-12-2025 Platelet mean volume (Bld) [Entitic vol] 10.2 fL 6.2-12.0 [facility] Monocyte percentageOrdered B y: Domo Weaver on 05-12-2025 Monocytes/100 WBC (Bld) 4.7 % 0-10 [facility] Neutrophil percentageOrdered By: Domoyamileth Weaver on 05-12-2025 Neutrophils/100 WBC (Bld) 75.0 % High 47-70 [facility] Nucleated red blood cell per centageOrdered By: Domoyamileth Weaver on 05-12-2025 Nucleated RBC/100 WBC (Bld) [Ratio] 0 % 0-5 [facility] Platelet countOrdered By: Ra clarita Weaver on 05-12-2025 Platelets (Bld) [#/Vol] 313 10*3/uL 150-450 [facility] Potassium measurement (mass/ volume)Ordered By: Domo Weaver on 05-12-2025 Potassium (Unsp spec) [Mass/Vol] 3.7 mmol/L 3.3-5.1 [facility] RBC Auto (Bld) [#/Vol]Ordere d By: Domo Weaver on 05-12-2025 RBC (Bld) [#/Vol] 3.35 10*6/uL Low 4.2-5.4 [facility] Serum creatinine measurement (mass/volume)Ordered By: Domo Weaver on 05-12-2025 Creatinine [Mass/Vol] 0.51 mg/dL Low 0.70-1.20 [facility] Comment on above: Performed By: #### L 101.9900, L501.6710, L3410.9992, L100.0100, L500.4050 #### [facility] [address] [place], [place], [id number] Serum globulin measurementOr dered By: Domo Weaver on 05-12-2025 Globulin (S) [Mass/Vol] 3.0 g/dL Normal 2.2-4.2 [facility] Comment on above: Performed By: #### L 101.9900, L501.6710, L3410.9992, L100.0100, L500.4050 #### [facility] [address] [place], [place], [id number] Serum glucose measurement (m ass/volume)Ordered By: Domo Weaver on 05-12-2025 Glucose [Mass/Vol] 152 mg/dL High 70-99 [facility] Comment on above: Performed By: #### L 101.9900, L501.6710, L3410.9992, L100.0100, L500.4050 #### [facility] [address] [place], [address] Serum or plasma C reactive p rotein measurement (mass/volume)Ordered By: Domo Weaver on 05-12-2025 CRP [Mass/Vol] 8.18 mg/L High 0.0-3.0 [facility] Serum or plasma alanine parisi otransferase (ALT) measurementOrdered By: Domo Weaver on 05-12-2025 ALT [Catalytic activity/Vol] 28 U/L Normal <=34 [facility] Comment on above: Performed By: #### L 101.9900, L501.6710, L3410.9992, L100.0100, L500.4050 #### [facility] [address] [place], [address] Serum or plasma albumin arielle urement (mass/volume)Ordered By: Domo Weaver on 05-12-2025 Albumin [Mass/Vol] 3.8 g/dL Normal 3.5-5.0 [facility] Comment on above: Performed By: #### L 101.9900, L501.6710, L3410.9992, L100.0100, L500.4050 #### [facility] [address] [place], [address] Serum or plasma albumin/glob ulin mass ratioOrdered By: Domo Weaver on 05-12-2025 Albumin/Globulin [Mass ratio] 1.3 {ratio} Normal 0.9-2.4 [facility] Comment on above: Performed By: #### L 101.9900, L501.6710, L3410.9992, L100.0100, L500.4050 #### [facility] [address] [place], [place], [address] Serum or plasma alkaline marcelo sphatase measurementOrdered By: Domo Weaver on 05-12-2025 ALP [Catalytic activity/Vol] 62 U/L 35-104 [facility] Serum or plasma calcium arielle urement (mass/volume)Ordered By: Domo Weaver on 05-12-2025 Calcium [Mass/Vol] 9.1 mg/dL Normal 7.6-11.0 [facility] Comment on above: Performed By: #### L 101.9900, L501.6710, L3410.9992, L100.0100, L500.4050 #### [facility] [address] [facility] [place], [address] Serum or plasma urea nitroge n measurement (mass/volume)Ordered By: Domo Weaver on 05-12-2025 Urea nitrogen [Mass/Vol] 6 mg/dL Normal 4-19 [facility] Comment on above: Performed By: #### L 101.9900, L501.6710, L3410.9992, L100.0100, L500.4050 #### [facility] [address] [place], [address] Sodium levelOrdered By: moris yamileth Weaver on 05-12-2025 Sodium [Moles/Vol] 138 mmol/L Normal 133-145 [facility] Comment on above: Performed By: #### L 101.9900, L501.6710, L3410.9992, L100.0100, L500.4050 #### [facility] [address] [place], [address] Total proteinOrdered By: Lai Weaver on 05-12-2025 Protein [Mass/Vol] 6.8 g/dL 5.9-8.4 [facility] White blood cell (WBC) count Ordered By: Domo Weaver on 05-12-2025 WBC (Bld) [#/Vol] 9.2 10*3/uL 4.4-11.0 [facility] - Chemistry and C hemistry - challengeOrdered By: Iesha Lo on 05-11-2025 Glucose Ql (U) Negative [facility] - UrinalysisOrder ed By: Iesha Lo on 05-11-2025 Protein Ql (U) Negative [facility] Placement Specialist Office Visit Reporton 05-11-2025 Placement Specialist Office Visit Report [facility] [address], [address] [place] [address] OFFICE VISIT Date of Service: 05/11/25 MR#: [id number] Acct: [id number] Name: MARIXA AMOS Rep #: [id number] : 1995 Provider: STEFANIE Figueroa ams Age/Sex: 29/F Location: [facility] Status: Signed Intake Vital Signs 05/01/25 14:59 05/11/25 13:52 Height 5 ft 3 in 5 ft 3 in Weight: 201 lb 6 oz BMI 35.6 BP 130/86 H Intake Visit Reasons: FHT check, spotting Chief Complaint: FHT Check, Spotting Regulatory Associate Required: No Is patient in pain?: No [...] mg-folate no.1 1 mg-dha 300 mg capsule (PNV-Limestone) famotidine 40 mg tablet 40 mg PO BID PRN 05/11/25 History mesalamine 1,000 mg rectal 1,000 mg SC QHS 05/11/25 05/11/25 History suppository (Canasa) prednisone [...] 3-4 times per week duration: 45-60 minutes/day cathy/sabianism: None seatbelt use: always do you feel safe at home: Yes 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 Normal [facility] [id number] 05-10-2025 B2 Glyco I IgG Ab <9 Normal 0-20 [facility] Comment on above: Performed By: #### 1 68390, A1C, 997038, 727893 #### [address] [address] B2 Glyco I IgM Ab <9 Normal 0-32 [facility] Comment on above: Result Comment: Perf ormed At: [address] [id number] Quentin Coburn PhD Ph:[phone] Performed By: #### 1 45555, A1C, 948757, 773434 #### [place] [address] CARDIGon 05-10-2025 Cardiolipin IgG <9 Normal 0-14 [facility] Comment on above: Result Comment: Nega tive: <15 Indeterminate: 15 - 20 Low-Med Positive: >20 - 80 High Positive: >80 Performed At: [address] [id number] Quentin Coburn PhD Ph:[phone] Performed By: #### 1 08090, A1C, 104771, 830115 #### [place] [address] [facility] Cardiolipin IgM <9 Normal 0-12 [facility] Comment on above: Result Comment: Nega tive: <13 Indeterminate: 13 - 20 Low-Med Positive: >20 - 80 High Positive: >80 Performed At: [address] [id number] Quentin Coburn PhD Ph:[phone] Performed By: #### 1 85385, A1C, 592455, 246237 #### [place] [address] A1Con 05-08-2025 Glucose [Mass/Vol] 111 mg/dL Normal [facility] Comment on above: Result Comment: Isabelle mated Average Glucose calculated by equation ((28.7xA1C)-46.7) Estimated average glucose (eAG) is a calculated value from Hemoglobin A1C and is patient support representative of the average blood glucose level in the last 2-3 month period. Normal range: less than 114 mg/dL Performed By: #### 1 73113, A1C, 029660, 635117 #### [facility] [address] [place] [address] HbA1c (Bld) [Mass fraction] 5.5 % Normal 4.0-6.0 [facility] Comment on above: Performed By: #### 1 53324, A1C, 411313, 720242 #### [address] [address] Progress Noteon 05-08-2025 Internet Sourcer Authentication Interface Message Text [facility] - at [place] [address] CARBAJAL OFFICE VISIT NOTE The concluding Summary Communication to Ticket Dispenser Changer is at the end of this office [...] a. Ongoing Care with: Dr. Leach. b. [facility] co-management visits scheduled with [facility] imaging visits. c. She is transferring her gastroenterology care to [facility] on 05/10/2025 and will share this [...] at 28/32/36 weeks with comanagement with our TOOL AND GAUGE INSPECTOR. 5. Antepartum Testing: Weekly NST in the office at 36 weeks will be appropriate. 6. Delivery-planned at [place]: As per standard obstetric practice and anticipate a term vaginal delivery at 39+0 weeks +3 days for scheduling purpos (more content not included)... Normal [facility] - Chemistry and C hemistry - challengeOrdered By: Carmen Lugo on 05-01-2025 Glucose Ql (U) Negative [facility] - UrinalysisOrder ed By: Carmen Lugo on 05-01-2025 Protein Ql (U) Negative [facility] Placement Specialist Office Visit Reporton 05-01-2025 Placement Specialist Office Visit Report [facility] [address], [address] [place] [address] OFFICE VISIT Date of Service: 05/01/25 MR#: [id number] Acct: [id number] Name: MARIXA AMOS Rep #: [id number] : 1995 Provider: Dr. 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 Elective abortions Hx Para 0 [...] 04-06-2025 Protein Ql (U) Negative [facility] Placement Specialist Office Visit Reporton 04-06-2025 Placement Specialist Office Visit Report [facility] [address], [address] [place] [address] OFFICE VISIT Date of Service: 04/06/25 MR#: [id number] Acct: [id number] Name: MARIXA AMOS Rep #: [id number] : 1995 Provider: STEFANIE Figueroa ams Age/Sex: 29/F Location: [facility] Status: Signed Intake Vital Signs 02/06/25 08:17 03/09/25 11:36 04/06/25 13:00 Height 5 ft 3 in 5 ft 3 in 5 ft 3 in Weight: 191 lb 4 oz 194 lb 9 oz BMI 33.8 34.4 BP 129/85 H 138/79 H Intake Visit Reasons: 17 wk ob *IVF Chief Complaint: 17wk OB Regulatory Associate Required: No Is patient in pain?: No [...] mg-folate no.1 1 mg-dha 300 mg capsule (PNV-Limestone) ondansetron 4 mg disintegrating 4 mg PO [...] house current occupational status: employed current occupation: [employer] current occupational exposures/hazards: No pets and animals: [...] 3-4 times per week duration: 45-60 minutes/day cathy/sabianism: None seatbelt use: always do you feel safe at home: Yes 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 -???-???-???-???-???- (more content not included)... Normal [facility] CRPon 03-10-2025 C-REACTIVE PROT 8.03 mg/L High 0.0-3.0 [facility] Comment on above: Performed By: #### L 101.9900, L501.6710 ####[facility] [address] [place], [address] Erythrocyte Sed Rateon 03-10 SED RATE 25 mm/hr Normal 0-30 [facility] Comment on above: Performed By: #### L 101.9900, L501.6710 #### [facility] [address] [place], [place], [address] Erythrocyte sedimentation ra teOrdered By: Domo Weaver on 03-10-2025 ESR (Bld) [Velocity] 25 mm/h 0-30 [facility] Ferritinon 03-10-2025 Ferritin [Mass/Vol] 61 ng/mL Normal 22-378 [facility] Comment on above: Performed By: #### L 801.2600 #### [facility] [address] [place], [place], [id number] Iron measurement (mass/mass) Ordered By: Carmen Lugo on 03-10-2025 Iron (Unsp spec) [Mass/Mass] 102 ug/dL 50-170 [facility] Iron+Iron Binding Capacityon 03-10-2025 Iron [Mass/Vol] 102 ug/dL Normal 50-170 [facility] Comment on above: Performed By: #### L 801.2600 #### [facility] [address] [place], [address] IRON SATURATION 29.0 Normal 13-59 [facility] Comment on above: Performed By: #### L 801.2600 #### [facility] [address] [place], [place], [id number] [phone] TIBC 353 ug/dL Normal 250-450 [facility] Comment on above: Performed By: #### L 801.2600 #### [facility] [address] [place], [address] UIBC 251 ug/dL Normal 228-428 [facility] Comment on above: Performed By: #### L 801.2600 #### [facility] [address] [place], [place], [id number] No Panel InformationOrdered By: Carmen Lugo on 03-10-2025 Unsaturated Iron Binding Capacity 251 ug/dL 228-428 [facility] Serum or plasma C reactive p rotein measurement (mass/volume)Ordered By: Domo Weaver on 03-10-2025 CRP [Mass/Vol] 8.03 mg/L High 0.0-3.0 [facility] Serum or plasma ferritin guerita surement (mass/volume)Ordered By: Carmen Lugo on 03-10-2025 Ferritin [Mass/Vol] 61 ng/mL 22-378 [facility] Serum or plasma iron saturat ion measurement (mass fraction)Ordered By: Carmen Lugo on 03-10-2025 Iron saturation [Mass fraction] 29.0 % 13-59 [facility] Vitamin B12on 03-10-2025 Cobalamin (Vitamin B12) [Mass/Vol] 614 pg/mL Normal 180-914 [facility] Comment on above: Performed By: #### L 503.6030, L503.0106, L503.6550 ####[facility] [address] [place], [place], [address] Vitamin B12 ser/plasOrdered By: Carmen Lugo on 03-10-2025 Cobalamin (Vitamin B12) [Mass/Vol] 614 pg/mL 180-914 [facility] - Chemistry and C hemistry - challengeOrdered By: Carmen Lugo on 03-09-2025 Glucose Ql (U) Negative [facility] - UrinalysisOrder ed By: Carmen Lugo on 03-09-2025 Protein Ql (U) Negative [facility] Placement Specialist Office Visit Reporton 03-09-2025 Placement Specialist Office Visit Report [facility] [address], [address] [place] [address] OFFICE VISIT Date of Service: 03/09/25 MR#: [id number] Acct: [id number] Name: MARIXA AMOS Rep #: [id number] : 1995 Provider: Dr. 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 Normal [facility] Placement Specialist Office Visit Reporton 02-23-2025 Placement Specialist Office Visit Report [facility] [address], [address] [place] [address] OFFICE VISIT Date of Service: 02/23/25 MR#: [id number] Acct: [id number] Name: MARIXA AMOS Rep #: [id number] : 1995 Provider: Dr. 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 Date Name GA/Weeks Outcome Route Bth Weight Gen Labor [facility] FOB Unknown 07/2023-Julio 19 still Male [...] [facility] Comment on above: Order Comment: [id number] 4Stelara levels Result Comment: Test Ordered: [id number] Ustekinumab Drug + Antibody Ustekinumab 3.9 ug/mL [...] R, et al. Clin Gastroenterol Hepatol 2017;15: 2741-9310. 4. Tessa MORA et al. Br J Dermatol;2015:173;855-857. 5. Grover H, et al. PLOS ONE DOI;10:1371/journal.pone.4260397. 6. Allan Billingsley et al. Br J Dermatol 2014;170:261-273. These tests were developed and their performance characteristics determined by Dr. [employer]. They have not been cleared or approved by the Food and Drug Administration. However, both drug and anti-drug antibody assays have been developed and validated in accordance with FDA Guidance for Industry documents: Bioanalytical Method Validation (2013) and Assay Development and Validation for Immunogenicity Testing of Therapeutic Protein Products (2016). Performed at: [facility] [address] [place] [id number] It Integration Architect: Gregg Roberto MD, Phone: [phone] Performed at: [address] [id number] It Integration Architect: Almas Saavedra PhD, Phone: [phone] Performed By: #### L 500.4050, L300.3900, L100.0100, L3410.9992, L501.6710, L101.9900 ####[facility] [address] [place], [address] Chlamydia/GC ALEKESY aptimaon CHLAMY,NUC ACID Negative Normal Negative [facility] Comment on above: Performed By: #### L 801.2600 #### [facility] [address] [place], [address] GC BY NUC ACID Negative Normal Negative [facility] Comment on above: Result Comment: Perf ormed at: = - [facility] [id number] It Integration Architect: Rose Haney MD, Phone: [phone] Performed By: #### L 801.2600 #### [facility] [address] [place], [place], [id number] Urine Cultureon 02-07-2025 URC Culture exhibits no growth. Normal [facility] Comment on above: Performed By: #### L 801.2600 #### [facility] [address] [place], [place], [address] Absolute lymphocyte countOrd ered By: Carmen Morrowcalvin [...] [facility] Basophil percentageOrdered B y: Carmen Manfred on 02-06-2025 Basophils/100 WBC (Bld) 0.4 % 0-1 [facility] CBC W/Diff, Automatedon 01-28-2024 PLT EST A Normal ADEQ [facility] Comment on above: Performed By: #### L 501.9985, L3890.6006, L3890.6102, L3890.6301, BTS, L100.0100, L509.4006, L509.8002 ####[facility] [address] [place], [place], [id number] RED CELL MORPH NORM C+C Normal NORM C C [facility] Comment on above: Performed By: #### L 501.9985, L3890.6006, L3890.6102, L3890.6301, BTS, L100.0100, L509.4006, L509.8002 ####[facility] [address] [place], [address] Chlamydia trachomatis rRNA d etection by probe and target amplification methodOrdered By: Carmen Zepedagerardo on 02-06-2025 C. trachomatis rRNA ALEKSEY+probe Ql (Unsp spec) Negative Negative [facility] Eosinophil percentageOrdered By: Carmen Lugo on [...] Order the HIV antibody detection and differentiation: lc#[id number] Performed By: #### L 501.9985, L3890.6006, L3890.6102, L3890.6301, BTS, L100.0100, L509.4006, L509.8002 ####[facility] [address] [place], [address] Hematocrit Auto (Bld) [Volum e [...] L3890.6301, BTS, L100.0100, L509.4006, L509.8002 ####[facility] [address] [place], [place], [address] Hemoglobin A1c percentageOrd ered By: Carmen Lugo [...] HCV Quant by PCR testing - HCVPCR #[id number] Non Reactive: < 0.8 Equivocal: >/= 0.8 to < 1.0 Reactive: >/= 1.0 The CDC requires that a reactive/equivocal HCV antibody result be sent out for confirmation. HCV Quant by PCR testing. Performed By: #### L 501.9985, L3890.6006, L3890.6102, L3890.6301, BTS, L100.0100, L509.4006, L509.8002 ####[facility] [address] [place], [place], [address] Immature granulocytes/100 WB C Auto (Bld)Ordered By: [...] L3890.6301, BTS, L100.0100, L509.4006, L509.8002 ####[facility] [address] [facility] [place], [place], [address] L509.4006on 02-06-2025 Rubella IgG REAC Normal Nonreactive [facility] Comment on above: Result Comment: Anti body Result: Interpretation Non-Reactive: Non-Immune Reactive: Immune The following results were obtained with the [employer] Rubella IgG assay. Results from assays of other manufacturers cannot be used interchangeably. Performed By: #### L 501.9985, L3890.6006, L3890.6102, L3890.6301, BTS, L100.0100, L509.4006, L509.8002 ####[facility] [address] [facility] [place], [place], [id number] Laboratory - Microbiology an d Antimicrobial susceptibilityOrdered [...] 02-06-2025 MCHC (RBC) [Mass/Vol] 33.1 g/dL 32-36 [facility] Mean platelet volume determi nationOrdered By: [...] [facility] Comment on above: Performed at: =[address] [id number] Director: Rose Haney MD, Phone: [phone] Neutrophil percentageOrdered By: Carmen Lugo on 02-06-2025 Neutrophils/100 WBC (Bld) 78.9 % High 47-70 [facility] No Panel InformationOrdered By: Carmen Lugo on 02-06-2025 HIV (1&2) Antibody Non-Reactive Nonreactive [facility] Comment on above: Non-ReactiveReactive Repeatedly reactive samples must be confirmed according to CDC recommended confirmatory algorithms. The subresults for either HIVAG or AHIV can be used as an aid in the selection of the confirmation algorithm for reactive samples.Send out specimens with Reactive results to [facility] for confirmation.Order the HIV antibody detection and differentiation: #[id number] Nucleated red blood cell per centageOrdered By: Carmen Lugo on 02-06-2025 Nucleated RBC/100 WBC (Bld) [Ratio] 0 % 0-5 [facility] Placement Specialist Office Visit Reporton 02-06-2025 Placement Specialist Office Visit Report [facility] [address], [address] [place] [address] OFFICE VISIT Date of Service: 02/06/25 MR#: [id number] Acct: [id number] Name: MARIXA AMOS Rep #: [id number] : 1995 Provider: STEFANIE Figueroa ams Age/Sex: 29/F Location: [facility] Status: Signed Intake Vital Signs 07/12/24 08:32 02/02/25 15:25 02/06/25 08:17 Height 5 ft 3 in 5 ft 3 in 5 ft 3 in Weight: 185 lb 8 oz BMI 32.8 BP 118/70 Intake Visit Reasons: *EST* NOB IVF 12/26, GIL 09/13/25 Regulatory Associate Required: No Is patient in pain?: No [...] mg-folate no.1 1 mg-dha 300 mg capsule (PNV-Limestone) prednisone 10 mg tablet 10 mg PO [...] 3-4 times per week duration: 45-60 minutes/day cathy/sabianism: None seatbelt use: always do you feel safe at home: Yes 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 Date Name GA/Weeks Outcome Route Bth Weight Infant Gen Labor Lgth Anesthesia Del Cassia [facility] FOB Unknown 07/2023-Julio 20 [...] 02-06-2025 Platelets LM Ql (d) A ADEQ [facility] RBC Auto (d) [#/Vol]Ordere d By: Carmen Lugo on 02-06-2025 RBC (Bld) [#/Vol] 3.80 10*6/uL Low 4.2-5.4 [facility] Syphilis Antibodieson 2024 Syphilis Abs Non-Reactive Normal Nonreactive [facility] Comment on above: Performed By: #### L 501.9985, L3890.6006, L3890.6102, L3890.6301, BTS, L100.0100, L509.4006, L509.8002 ####[facility] [address] [place], [place], [address] Type AND Screenon 02-06-2025 ABO and Rh group Nom (Bld) Blood group B Rh(D) positive Normal [facility] Comment on above: Order Comment: PN Performed By: #### L 501.9985, L3890.6006, L3890.6102, L3890.6301, BTS, L100.0100, L509.4006, L509.8002 ####[facility] [address] [place], [place], [id number] Urine cultureOrdered By: Torin Lugo on 02-06-2025 Bacteria identified Cx Nom (U) Culture exhibits no growth. [facility] White blood cell (WBC) count Ordered By: Carmen Lugo on 02-06-2025 WBC (Bld) [#/Vol] 12.5 10*3/uL High 4.4-11.0 [facility] Absolute lymphocyte countOrd ered By: Domo Weaver on 02-02-2025 Lymphocytes Auto (Unsp spec) [#/Vol] 1.71 10*3/uL 0.83-4.51 [facility] Absolute neutrophil countOrd ered By: Domo Weaver on 02-02-2025 Neutrophils (Bld) [#/Vol] 7.6 10*3/uL 2.0-7.7 [facility] Anion gap in Serum or Plasma Ordered By: Domo Weaver on 02-02-2025 Anion gap [Moles/Vol] 13 mmol/L 5-15 [facility] Automated lymphocyte count a s percentage [...] Friend on 02-02-2025 Bilirubin [Mass/Vol] mg/dL 0.00-1.30 [facility] CBC W/Diff, Automatedon Absolute Lymph 1.71 X10 3/uL Normal 0.83-4.51 [facility] Comment on above: Performed By: #### L 500.4050, L300.3900, L100.0100, L3410.9992, L501.6710, L101.9900 ####[facility] [address] [place], [address] Absolute Neut 7.6 X10 3/uL Normal 2.0-7.7 [facility] Comment on above: Performed By: #### L 500.4050, L300.3900, L100.0100, L3410.9992, L501.6710, L101.9900 ####[facility] [address] [place], [address] Basophils/100 WBC (Bld) 0.4 % Normal 0-1 [facility] Comment on above: Performed By: #### L 500.4050, L300.3900, L100.0100, L3410.9992, L501.6710, L101.9900 ####[facility] [address] [place], [address] Eosinophils/100 WBC (Bld) 0.7 % Normal 0-5 [facility] Comment on above: Performed By: #### L 500.4050, L300.3900, L100.0100, L3410.9992, L501.6710, L101.9900 ####[facility] [address] [place], [address] Erythrocyte distribution width (RBC) [Ratio] 12.7 % Normal 11.6-14.6 [facility] Comment on above: Performed By: #### L 500.4050, L300.3900, L100.0100, L3410.9992, L501.6710, L101.9900 ####[facility] [address] [place], [address] Hematocrit (Bld) [Volume fraction] 33.6 % Low 37-47 [facility] Comment on above: Performed By: #### L 500.4050, L300.3900, L100.0100, L3410.9992, L501.6710, L101.9900 ####[facility] [address] [place], [address] Hemoglobin (Bld) [Mass/Vol] 11.2 g/dL Low 12.0-15.0 [facility] Comment on above: Performed By: #### L 500.4050, L300.3900, L100.0100, L3410.9992, L501.6710, L101.9900 ####[facility] [address] [place], [address] IG% 0.500 Normal 0.0-0.9 [facility] Comment on above: Result Comment: IG% - Immature Granulocytes (promyelocytes, myelocytes and metamyelocytes) > 1% indicates that a LEFT SHIFT is Present. Performed By: #### L 500.4050, L300.3900, L100.0100, L3410.9992, L501.6710, L101.9900 ####[facility] [address] [place], [address] Lymphocytes/100 WBC (Bld) 17.3 % Low 19-41 [facility] Comment on above: Performed By: #### L 500.4050, L300.3900, L100.0100, L3410.9992, L501.6710, L101.9900 ####[facility] [address] [place], [address] MCH (RBC) [Entitic mass] 29.9 pg Normal 27.0-32.0 [facility] Comment on above: Performed By: #### L 500.4050, L300.3900, L100.0100, L3410.9992, L501.6710, L101.9900 ####[facility] [address] [place], [address] MCHC (RBC) [Mass/Vol] 33.3 g/dL Normal 32-36 [facility] Comment on above: Performed By: #### L 500.4050, L300.3900, L100.0100, L3410.9992, L501.6710, L101.9900 ####[facility] [address] [place], [address] MCV (RBC) [Entitic vol] 89.6 fL Normal 81-99 [facility] Comment on above: Performed By: #### L 500.4050, L300.3900, L100.0100, L3410.9992, L501.6710, L101.9900 ####[facility] [address] [place], [address] Monocytes/100 WBC (Bld) 4.5 % Normal 0-10 [facility] Comment on above: Performed By: #### L 500.4050, L300.3900, L100.0100, L3410.9992, L501.6710, L101.9900 ####[facility] [address] [place], [address] Neutrophils/100 WBC (Bld) 76.6 % High 47-70 [facility] Comment on above: Performed By: #### L 500.4050, L300.3900, L100.0100, L3410.9992, L501.6710, L101.9900 ####[facility] [address] [place], [address] Nucleated RBC (Bld) [#/Vol] 0 10*3/uL Normal 0-5 [facility] Comment on above: Performed By: #### L 500.4050, L300.3900, L100.0100, L3410.9992, L501.6710, L101.9900 ####[facility] [address] [place], [address] Platelet mean volume (Bld) [Entitic vol] 10.2 fL Normal 6.2-12.0 [facility] Comment on above: Performed By: #### L 500.4050, L300.3900, L100.0100, L3410.9992, L501.6710, L101.9900 ####[facility] [address] [place], [address] Platelets (Bld) [#/Vol] 388 10*3/uL Normal 150-450 [facility] Comment on above: Performed By: #### L 500.4050, L300.3900, L100.0100, L3410.9992, L501.6710, L101.9900 ####[facility] [address] [place], [address] RBC (Bld) [#/Vol] 3.75 10*6/uL Low 4.2-5.4 [facility] Comment on above: Performed By: #### L 500.4050, L300.3900, L100.0100, L3410.9992, L501.6710, L101.9900 ####[facility] [address] [place], [address] RDW SD 41.8 fl Normal 35.1-43.9 [facility] Comment on above: Performed By: #### L 500.4050, L300.3900, L100.0100, L3410.9992, L501.6710, L101.9900 ####[facility] [address] [place], [place], [phone]) WBC (Bld) [#/Vol] 9.9 10*3/uL Normal 4.4-11.0 [facility] Comment on above: Performed By: #### L 500.4050, L300.3900, L100.0100, L3410.9992, L501.6710, L101.9900 ####[facility] [address] [place], [address] CRPon 02-02-2025 C-REACTIVE PROT 11.70 mg/L High 0.0-3.0 [facility] Comment on above: Performed By: #### L 500.4050, L300.3900, L100.0100, L3410.9992, L501.6710, L101.9900 ####[facility] [address] [place], [place], [phone] Carbon dioxide, total [Moles /volume] in Central venous bloodOrdered By: Domo Friend on 02-02-2025 CO2 [Moles/Vol] 18.9 mmol/L Low 21.0-32.0 [facility] Chloride assayOrdered By: Ra otto Friend on 02-02-2025 Chloride [Moles/Vol] 103 mmol/L 98-108 [facility] Comprehensive Metabolic Prof ilon 02-02-2025 Albumin [Mass/Vol] 4.3 g/dL Normal 3.5-5.0 [facility] Comment on above: Performed By: #### L 500.4050, L300.3900, L100.0100, L3410.9992, L501.6710, L101.9900 ####[facility] [address] [place], [place], [phone]) Albumin/Globulin [Mass ratio] 1.4 {ratio} Normal 0.9-2.4 [facility] Comment on above: Performed By: #### L 500.4050, L300.3900, L100.0100, L3410.9992, L501.6710, L101.9900 ####[facility] [address] [place], [address] ALK PHOS 64 U/L Normal 35-104 [facility] Comment on above: Performed By: #### L 500.4050, L300.3900, L100.0100, L3410.9992, L501.6710, L101.9900 ####[facility] [address] [place], [address] ALT [Catalytic activity/Vol] 22 U/L Normal <=34 [facility] Comment on above: Performed By: #### L 500.4050, L300.3900, L100.0100, L3410.9992, L501.6710, L101.9900 ####[facility] [address] [place], [address] AST [Catalytic activity/Vol] 14 U/L Normal <=31 [facility] Comment on above: Performed By: #### L 500.4050, L300.3900, L100.0100, L3410.9992, L501.6710, L101.9900 ####[facility] [address] [place], [address] BUN/CRE 16.4 RATIO Normal 10-20 [facility] Comment on above: Performed By: #### L 500.4050, L300.3900, L100.0100, L3410.9992, L501.6710, L101.9900 ####[facility] [address] [place], [address] Calcium [Mass/Vol] 9.2 mg/dL Normal 7.6-11.0 [facility] Comment on above: Performed By: #### L 500.4050, L300.3900, L100.0100, L3410.9992, L501.6710, L101.9900 ####[facility] [address] [place], [address] Chloride [Moles/Vol] 103 mmol/L Normal 98-108 [facility] Comment on above: Performed By: #### L 500.4050, L300.3900, L100.0100, L3410.9992, L501.6710, L101.9900 ####[facility] [address] [place], [address] CO2 [Moles/Vol] 18.9 mmol/L Low 21.0-32.0 [facility] Comment on above: Performed By: #### L 500.4050, L300.3900, L100.0100, L3410.9992, L501.6710, L101.9900 ####[facility] [address] [place], [address] Creatinine [Mass/Vol] 0.56 mg/dL Low 0.70-1.20 [facility] Comment on above: Performed By: #### L 500.4050, L300.3900, L100.0100, L3410.9992, L501.6710, L101.9900 ####[facility] [address] [place], [address] GAP 13 Normal 5-15 [facility] Comment on above: Performed By: #### L 500.4050, L300.3900, L100.0100, L3410.9992, L501.6710, L101.9900 ####[facility] [address] [place], [address] GFR/1.73 sq M.predicted among non-blacks MDRD (S/P/Bld) [Vol rate/Area] 126 mL/min/{1.73_m2} Normal >60 [facility] Comment on above: Result Comment: mL/m in/1.73m2 CKD-EPI Creatinine Equation (2020) Performed By: #### L 500.4050, L300.3900, L100.0100, L3410.9992, L501.6710, L101.9900 ####[facility] [address] [place], [address] Globulin (S) [Mass/Vol] 3.1 g/dL Normal 2.2-4.2 [facility] Comment on above: Performed By: #### L 500.4050, L300.3900, L100.0100, L3410.9992, L501.6710, L101.9900 ####[facility] [address] [place], [address] Glucose [Mass/Vol] 132 mg/dL High 70-99 [facility] Comment on above: Performed By: #### L 500.4050, L300.3900, L100.0100, L3410.9992, L501.6710, L101.9900 ####[facility] [address] [place], [address] Potassium [Moles/Vol] 3.9 mmol/L Normal 3.3-5.1 [facility] Comment on above: Performed By: #### L 500.4050, L300.3900, L100.0100, L3410.9992, L501.6710, L101.9900 ####[facility] [address] [place], [address] Sodium [Moles/Vol] 134 mmol/L Normal 133-145 [facility] Comment on above: Performed By: #### L 500.4050, L300.3900, L100.0100, L3410.9992, L501.6710, L101.9900 ####[facility] [address] [place], [place], [id number] T BILI < 0.15 Normal 0.00-1.30 [facility] Comment on above: Performed By: #### L 500.4050, L300.3900, L100.0100, L3410.9992, L501.6710, L101.9900 ####[facility] [address] [place], [address] T PROT 7.4 g/dL Normal 5.9-8.4 [facility] Comment on above: Performed By: #### L 500.4050, L300.3900, L100.0100, L3410.9992, L501.6710, L101.9900 ####[facility] [address] [place], [address] Urea nitrogen [Mass/Vol] 9 mg/dL Normal 4-19 [facility] Comment on above: Performed By: #### L 500.4050, L300.3900, L100.0100, L3410.9992, L501.6710, L101.9900 ####[facility] [address] [place], [place], [phone] Eosinophil percentageOrdered By: Domo Weaver on 02-02-2025 Eosinophils/100 WBC (Bld) 0.7 % 0-5 [facility] Erythrocyte Sed Rateon 02-02 SED RATE 28 mm/hr Normal 0-30 [facility] Comment on above: Performed By: #### L 500.4050, L300.3900, L100.0100, L3410.9992, L501.6710, L101.9900 ####[facility] [address] [place], [place], [phone] Erythrocyte distribution wid th ratioOrdered By: Domo Weaver on 02-02-2025 Erythrocyte distribution width (RBC) [Ratio] 12.7 % 11.6-14.6 [facility] Erythrocyte distribution wid th standard deviationOrdered By: Domo Weaver on 02-02-2025 Erythrocyte distribution width (RBC) [Ratio] 41.8 fl 35.1-43.9 [facility] Erythrocyte sedimentation ra teOrdered By: Domo Weaver on 02-02-2025 ESR (Bld) [Velocity] 28 mm/h 0-30 [facility] Glomerular filtration rate ( GFR) estimation/1.73 sq [...] 02-02-2025 MCHC (RBC) [Mass/Vol] 33.3 g/dL 32-36 [facility] Mean platelet volume determi nationOrdered By: Domoyamileth Weaver on 02-02-2025 Platelet mean volume (Bld) [Entitic vol] 10.2 fL 6.2-12.0 [facility] Monocyte percentageOrdered B y: Domorobles Weaver on 02-02-2025 Monocytes/100 WBC (Bld) 4.5 % 0-10 [facility] Neutrophil percentageOrdered By: Domoyamileth Weaver on 02-02-2025 Neutrophils/100 WBC (Bld) 76.6 % High 47-70 [facility] Nucleated red blood cell per centageOrdered By: Domoyamileth Weaver on 02-02-2025 Nucleated RBC/100 WBC (Bld) [Ratio] 0 % 0-5 [facility] Placement Specialist Office Visit Reporton 02-02-2025 Placement Specialist Office Visit Report [facility] [address] [place] [address] OFFICE VISIT Date of Service: 02/02/25 MR#: [id number] Acct: [id number] Name: MARIXA AMOS Rep #: [id number] : 1995 Provider: STEFANIE coronel Age/Sex: 29/F Location: [facility] Status: Signed Intake Vital Signs 01/25/25 14:45 02/02/25 15:25 Height 5 ft 3 in 5 ft 3 in Weight: 184 lb 8 oz 186 lb 4 oz BMI 32.6 33.0 BP 128/62 H 143/86 H Blood Pressure Location Rt brachial Position Sitting Intake Visit Reasons: fu early spotting per Regulatory Associate Required: No Is patient in pain?: No [...] mg-folate no.1 1 mg-dha 300 mg capsule (PNV-Limestone) prednisone 10 mg tablet 10 mg PO QDAY 01/26/25 02/02/25 Hi story progesterone oil 75 mg IM QHS 01/26/25 02/02/25 His tory Post menopausal: No [facility] : Yes [facility] Obesity (BMI 30.0-34.9) Other obesity [...] 3-4 times per week duration: 45-60 minutes/day cathy/sabianism: None seatbelt use: always do you feel safe at home: Yes additional social history: -Rom[employer]- [employer] HPI fu early spotting per Details: MARIXA [...] Potassium (Unsp spec) [Mass/Vol] 3.9 mmol/L 3.3-5.1 [facility] Prothrombin Time w/INRon INR Coag (PPP) [Relative time] 0.9 {INR} Normal [facility] Comment on above: Performed By: #### L 500.4050, L300.3900, L100.0100, L3410.9992, L501.6710, L101.9900 ####[facility] [address] [place], [place], [id number] PT Coag (PPP) [Time] 12.2 s Normal 11.7-14.9 [facility] Comment on above: Performed By: #### L 500.4050, L300.3900, L100.0100, L3410.9992, L501.6710, L101.9900 ####[facility] [address] [place], [place], [phone] Prothrombin timeOrdered By: Domo Weaver on 02-02-2025 PT Coag (PPP) [Time] 12.2 s 11.7-14.9 [facility] RBC Auto (Bld) [#/Vol]Ordere d By: Domo Weaver on 02-02-2025 RBC (Bld) [#/Vol] 3.75 10*6/uL Low 4.2-5.4 [facility] Serum creatinine measurement (mass/volume)Ordered By: Domo Weaver on 02-02-2025 Creatinine [Mass/Vol] 0.56 mg/dL Low 0.70-1.20 [facility] Serum globulin measurementOr dered By: Domo Weaver on 02-02-2025 Globulin (S) [Mass/Vol] 3.1 g/dL 2.2-4.2 [facility] Serum glucose measurement (m ass/volume)Ordered By: Domo Weaver on 02-02-2025 Glucose [Mass/Vol] 132 mg/dL High 70-99 [facility] Serum or plasma C reactive p rotein measurement (mass/volume)Ordered By: Domo Weaver on 02-02-2025 CRP [Mass/Vol] 11.70 mg/L High 0.0-3.0 [facility] Serum or plasma alanine parisi otransferase (ALT) measurementOrdered By: Domo Weaver on 02-02-2025 ALT [Catalytic activity/Vol] 22 U/L <35 [facility] Serum or plasma albumin arielle urement (mass/volume)Ordered By: Domo Weaver on 02-02-2025 Albumin [Mass/Vol] 4.3 g/dL 3.5-5.0 [facility] Serum or plasma albumin/glob ulin mass ratioOrdered By: Domo Weaver on 02-02-2025 Albumin/Globulin [Mass ratio] 1.4 {ratio} 0.9-2.4 [facility] Serum or plasma alkaline marcelo sphatase measurementOrdered By: Domo Weaver on 02-02-2025 ALP [Catalytic activity/Vol] 64 U/L 35-104 [facility] Serum or plasma calcium arielle urement (mass/volume)Ordered By: Domo Weaver on 02-02-2025 Calcium [Mass/Vol] 9.2 mg/dL 7.6-11.0 [facility] Serum or plasma urea nitroge n measurement (mass/volume)Ordered By: Domo Weaver on 02-02-2025 Urea nitrogen [Mass/Vol] 9 mg/dL 4-19 [facility] Sodium levelOrdered By: Alisa Michelle on 02-02-2025 Sodium [Moles/Vol] 134 mmol/L 133-145 [facility] Total proteinOrdered By: Lai Weaver on 02-02-2025 Protein [Mass/Vol] 7.4 g/dL 5.9-8.4 [facility] White blood cell (WBC) count Ordered By: Domo Weaver on 02-02-2025 WBC (Bld) [#/Vol] 9.9 10*3/uL 4.4-11.0 [facility] Laboratory - Chemistry and C hemistry - challengeOrdered By: Carmen Lugo on 01-26-2025 HCG ( test) Ql (U) Positive [facility] Office Visit Reporton [address] [facility] [place] [address] OFFICE VISIT Date of Service: 01/26/25 MR#: [id number] Acct: [id number] Patient: MARIXA AMOS Rep #: [id number] : 1995 Provider: Dr. Carmen dixon MD Age/Sex: 29/F Location: [facility] Status: Signed Intake Vital Signs 07/12/24 08:32 01/25/25 14:45 Height 5 ft 3 in 5 ft 3 in Weight: 184 lb 8 oz BMI 32.6 BP 128/62 H Blood Pressure Location Rt brachial Position Sitting Intake Visit Reasons: Pre new ob, confirm preg, vitals Chief Complaint: Fertility consult Regulatory Associate Required: No Accompanied by: Is patient in [...] mg-folate no.1 1 mg-dha 300 mg capsule (PNV-Limestone) prednisone 10 mg tablet 10 mg PO [...] Koo Signature: Date (if applicable) CC: Normal [facility] OB TRANSVAGINALon 025 OB TRANSVAGINAL Interpreted [...] evaluation for early dating. View: Sufficient Normal [facility] Blood type and Indirect anti body screen panel (Bld)on 01-22-2025 ABO group Nom (Bld) B [facility] Blood group antibody screen Ql Negative [facility] D Ag Ql (Bld) Positive [facility] ABO group Nom (Bld) B Normal [facility] Comment on above: Performed By: #### 2 243-4 #### MARIA E KAPADIA ([id number]) [facility] ([facility]) [address] [place] [address] Blood group antibody screen Ql Negative Normal [facility] Comment on above: Performed By: #### 2 243-4 #### MARIA E KAPADIA ([id number]) [facility] ([facility]) [address] [place] [address] D Ag Ql (Bld) Positive Normal [facility] Comment on above: Performed By: #### 2 243-4 #### MARIA E KAPADIA ([id number]) [facility] ([facility]) [address] [place] [address] C. trachomatis and N. gonorr hoeae DNA ALEKSEY+probe Nom (Unsp spec)on 01-22-2025 C. trachomatis rRNA ALEKSEY+probe Ql (Unsp spec) Negative Normal Negative [facility] Comment on above: Order Comment: REF V ALUES FOLLICULAR PHASE 20-144 MID CYCLE 64-357 LUTEAL PHASE 56-214 POSTMENOPAUSE < 32 PREPUBERTY < 20 FEMALE 10-18Y 8-110 MALE 10-18Y < 20 ADULT MALE < 40 Performed By: #### 2 243-4 #### MARIA E KAPADIA ([id number]) [facility] ([facility]) [address] [place] [address] N. gonorrhoeae DNA Probe+sig amp Ql (Unsp spec) Negative Normal Negative [facility] Comment on above: Order Comment: REF V ALUES FOLLICULAR PHASE 20-144 MID CYCLE 64-357 LUTEAL PHASE 56-214 POSTMENOPAUSE < 32 PREPUBERTY < 20 FEMALE 10-18Y 8-110 MALE 10-18Y < 20 ADULT MALE < 40 Performed By: #### 2 243-4 #### MARIA E KAPADIA ([id number]) [facility] ([facility]) [address] [place] [id number] CBC W Auto Differential pane l (Bld)on 01-22-2025 Basophils (Bld) [#/Vol] 0.04 10*3/uL [facility] Basophils/100 WBC (Bld) 0.5 % 0.0 - 2.0 % [facility] Eosinophils (Bld) [#/Vol] 0.07 10*3/uL [facility] Eosinophils/100 WBC (Bld) 0.8 % 0.0 - 6.0 % [facility] Erythrocyte distribution width (RBC) [Ratio] 12.7 % 11.5 - 14.5 % [facility] Hematocrit (Bld) [Volume fraction] 32.8 % Low 36.0 - 46.0 % [facility] Hemoglobin (Bld) [Mass/Vol] 11.1 g/dL Low 12.0 - 16.0 g/dL [facility] Immature granulocytes (Bld) [#/Vol] 0.05 10*3/uL [facility] Immature granulocytes/100 WBC (Bld) 0.6 % 0.0 - 0.9 % [facility] Comment on above: Immature Granulocyte Count (IG) includes promyelocytes, myelocytes and metamyelocytes but does not include bands. Percent differential counts (%) should be interpreted in the context of the absolute cell counts (cells/UL). Interpretation and review of laboratory results Abnormal [facility] Lymphocytes (Bld) [#/Vol] 1.19 10*3/uL Low [facility] Lymphocytes/100 WBC (Bld) 13.9 % 13.0 - 44.0 % [facility] MCH (RBC) [Entitic mass] 30.1 pg 26.0 - 34.0 pg [facility] MCHC (RBC) [Mass/Vol] 33.8 g/dL 32.0 - 36.0 g/dL [facility] MCV (RBC) [Entitic vol] 89 fL 80 - 100 fL [facility] Monocytes (Bld) [#/Vol] 0.34 10*3/uL [facility] Monocytes/100 WBC (Bld) 4 % 2.0 - 10.0 % [facility] Neutrophils (Bld) [#/Vol] 6.86 10*3/uL [facility] Comment on above: Percent differential counts (%) should be interpreted in the context of the absolute cell counts (cells/uL). Neutrophils/100 WBC (Bld) 80.2 % 40.0 - 80.0 % [facility] Nucleated RBC/100 WBC (Bld) [Ratio] 0 % [facility] Platelets (Bld) [#/Vol] 319 10*3/uL [facility] RBC (Bld) [#/Vol] 3.69 10*6/uL Low [facility] WBC (Bld) [#/Vol] 8.6 10*3/uL [facility] Basophils (Bld) [#/Vol] 0.04 x10*3/uL Normal 0.00-0.10 [facility] Comment on above: Performed By: #### 2 [id number] #### MARIA E KAPADIA ([id number]) [facility] ([facility] – [place]) [address] [place] [address] Basophils/100 WBC (Bld) 0.5 % Normal 0.0-2.0 [facility] Comment on above: Performed By: #### 2 243-4 #### MARIA E KAPADIA ([id number]) [facility] ([facility]) [address] [place] [address] Eosinophils (Bld) [#/Vol] 0.07 x10*3/uL Normal 0.00-0.70 [facility] Comment on above: Performed By: #### 2 243-4 #### MARIA E KAPADIA ([id number]) [facility] ([facility]) [address] [place] [address] Eosinophils/100 WBC (Bld) 0.8 % Normal 0.0-6.0 [facility] Comment on above: Performed By: #### 2 243-4 #### MARIA E KAPADIA ([id number]) [facility] ([facility]) [address] [place] [address] Erythrocyte distribution width (RBC) [Ratio] 12.7 % Normal 11.5-14.5 [facility] Comment on above: Performed By: #### 2 243-4 #### MARIA E KAPADIA ([id number]) [facility] ([facility]) [address] [place] [address] Hematocrit (Bld) [Volume fraction] 32.8 % Low 36.0-46.0 [facility] Comment on above: Performed By: #### 2 243-4 #### MARIA E KAPADIA ([id number]) [facility] ([facility]) [address] [place] [address] Hemoglobin (Bld) [Mass/Vol] 11.1 g/dL Low 12.0-16.0 [facility] Comment on above: Performed By: #### 2 243-4 #### MARIA E KAPADIA ([id number]) [facility] ([facility]) [address] [place] [address] Immature granulocytes (Bld) [#/Vol] 0.05 x10*3/uL Normal 0.00-0.70 [facility] Comment on above: Performed By: #### 2 243-4 #### MARIA E KAPADIA ([id number]) [facility] ([facility]) [address] [place], [place] [id number] Immature granulocytes/100 WBC (Bld) 0.6 % Normal 0.0-0.9 [facility] Comment on above: Result Comment: Ewa ture Granulocyte Count (IG) includes promyelocytes, myelocytes and metamyelocytes but does not include bands. Percent differential counts (%) should be interpreted in the context of the absolute cell counts (cells/UL). Performed By: #### 2 243-4 #### MARIA E KAPADIA ([id number]) [facility] ([facility]) [address] [place], [place] [id number] Lymphocytes (Bld) [#/Vol] 1.19 x10*3/uL Low 1.20-4.80 [facility] Comment on above: Performed By: #### 2 243-4 #### MARIA E KAPADIA ([id number]) [facility] ([facility]) [address] [place] [address] Lymphocytes/100 WBC (Bld) 13.9 % Normal 13.0-44.0 [facility] Comment on above: Performed By: #### 2 243-4 #### MARIA E KAPADIA ([id number]) [facility] ([facility]) [address] [place] [address] MCH (RBC) [Entitic mass] 30.1 pg Normal 26.0-34.0 [facility] Comment on above: Performed By: #### 2 243-4 #### MARIA E KAPADIA ([id number]) [facility] ([facility]) [address] [place] [address] MCHC (RBC) [Mass/Vol] 33.8 g/dL Normal 32.0-36.0 [facility] Comment on above: Performed By: #### 2 243-4 #### MARIA E KAPADIA ([id number]) [facility] ([facility]) [address] [place] [address] MCV (RBC) [Entitic vol] 89 fL Normal 80-100 [facility] Comment on above: Performed By: #### 2 243-4 #### MARIA E KAPADIA ([id number]) [facility] ([facility]) [address] [place] [phone] Monocytes (Bld) [#/Vol] 0.34 x10*3/uL Normal 0.10-1.00 [facility] Comment on above: Performed By: #### 2 243-4 #### MARIA E KAPADIA ([id number]) [facility] ([facility]) [address] [place] [address] Monocytes/100 WBC (Bld) 4.0 % Normal 2.0-10.0 [facility] Comment on above: Performed By: #### 2 243-4 #### MARIA E KAPADIA ([id number]) [facility] ([facility]) [address] [place] [address] Neutrophils (Bld) [#/Vol] 6.86 x10*3/uL Normal 1.20-7.70 [facility] Comment on above: Result Comment: Perc ent differential counts (%) should be interpreted in the context of the absolute cell counts (cells/uL). Performed By: #### 2 243-4 #### MARIA E KAPADIA ([id number]) [facility] ([facility]) [address] [place] [address] Neutrophils/100 WBC (Bld) 80.2 % Normal 40.0-80.0 [facility] Comment on above: Performed By: #### 2 243-4 #### MARIA E KAPADIA ([id number]) [facility] ([facility]) [address] [place] [address] Nucleated RBC/100 WBC (Bld) [Ratio] 0.0 /100 WBCs Normal 0.0-0.0 [facility] Comment on above: Performed By: #### 2 243-4 #### MARIA E KAPADIA ([id number]) [facility] ([facility]) [address] [place] [address] Platelets (Bld) [#/Vol] 319 x10*3/uL Normal 150-450 [facility] Comment on above: Performed By: #### 2 243-4 #### MARIA E KAPADIA ([id number]) [facility] ([facility]) [address] [place] [address] RBC (Bld) [#/Vol] 3.69 x10*6/uL Low 4.00-5.20 [facility] Comment on above: Performed By: #### 2 243-4 #### MARIA E KAPADIA ([id number]) [facility] ([facility]) [address] [place] [address] WBC (Bld) [#/Vol] 8.6 x10*3/uL Normal 4.4-11.3 [facility] Comment on above: Performed By: #### 2 243-4 #### MARIA E KAPADIA ([id number]) [facility] ([facility]) [address] [place] [address] Choriogonadotropin.beta subu niton 01-22-2025 [place] [address] m[IU]/mL High <5 U [facility] Comment on above: Order Comment: REF [...] #### 2 243-4 #### MARIA E STEFFI ([id number]) [facility] ([facility]) [address] [place] [address] Comprehensive metabolic 2000 panelon 01-22-2025 Albumin BCP dye [Mass/Vol] 4.5 g/dL 3.4 - 5.0 g/dL [facility] ALP [Catalytic activity/Vol] 56 U/L 33 - 110 U/L [facility] ALT With P-5'-P [Catalytic activity/Vol] 21 U/L 7 - 45 U/L [facility] Comment on above: Patients treated wit h Sulfasalazine may generate falsely decreased results for ALT. Anion gap [Moles/Vol] 15 mmol/L 10 - 2 0 mmol/L [facility] AST With P-5'-P [Catalytic activity/Vol] 18 U/L 9 - 39 U/L [facility] Bilirubin [Mass/Vol] 0.2 mg/dL 0.0 - 1 .2 mg/dL [facility] Calcium [Mass/Vol] 9.4 mg/dL 8.6 - 10. 3 mg/dL [facility] Chloride [Moles/Vol] 106 mmol/L 98 - 10 7 mmol/L [facility] CO2 [Moles/Vol] 19 mmol/L Low 21 - 32 mmol/L [facility] Creatinine [Mass/Vol] 0.83 mg/dL 0.50 - 1.05 mg/dL [facility] eGFR - PINF [facility] Comment on above: Calculations of isabelle mated GFR are performed using the 2020 CKD-EPI Study Refit equation without the race variable for the IDMS-Traceable creatinine methods. https://jasn.asnjournals.org/content//ASN.89321 45134 Glucose [Mass/Vol] 110 mg/dL High 74 - 99 mg/dL [facility] Interpretation and review of laboratory results Abnormal [facility] Potassium [Moles/Vol] 4.3 mmol/L 3.5 - 5.3 mmol/L [facility] Protein [Mass/Vol] 6.9 g/dL 6.4 - 8.2 g/dL [facility] Sodium [Moles/Vol] 136 mmol/L 136 - 145 mmol/L [facility] Urea nitrogen [Mass/Vol] 10 mg/dL 6 - 23 mg/dL [facility] Albumin BCP dye [Mass/Vol] 4.5 g/dL Normal 3.4-5.0 [facility] Comment on above: Performed By: #### 2 243-4 #### MARIA E KAPADIA ([id number]) [facility] ([facility]) [address] [place] [address] ALP [Catalytic activity/Vol] 56 U/L Normal 33-110 [facility] Comment on above: Performed By: #### 2 243-4 #### MARIA E KAPADIA ([id number]) [facility] ([facility]) [address] [place] [address] ALT With P-5'-P [Catalytic activity/Vol] 21 U/L Normal 7-45 [facility] Comment on above: Result Comment: Silvina ents treated with Sulfasalazine may generate falsely decreased results for ALT. Performed By: #### 2 243-4 #### MARIA E KAPADIA ([id number]) [facility] ([facility]) [address] [place] [address] Anion gap [Moles/Vol] 15 mmol/L Normal 10-20 [facility] Comment on above: Performed By: #### 2 243-4 #### MARIA E KAPADIA ([id number]) [facility] ([facility]) [address] [place] [phone] AST With P-5'-P [Catalytic activity/Vol] 18 U/L Normal 9-39 [facility] Comment on above: Performed By: #### 2 243-4 #### MARIA E KAPADIA ([id number]) [facility] ([facility]) [address] [place] [phone] Bilirubin [Mass/Vol] 0.2 mg/dL Normal 0.0-1.2 [facility] Comment on above: Performed By: #### 2 243-4 #### MARIA E KAPADIA ([id number]) [facility] ([facility]) [address] [place] [address] Calcium [Mass/Vol] 9.4 mg/dL Normal 8.6-10.[address] [facility] Comment on above: Performed By: #### 2 243-4 #### MARIA E KAPADIA ([id number]) [facility] ([facility]) [address] [place] [address] Chloride [Moles/Vol] 106 mmol/L Normal 98-107 [facility] Comment on above: Performed By: #### 2 243-4 #### MARIA E KAPADIA ([id number]) [facility] ([facility]) [address] [place] [address] CO2 [Moles/Vol] 19 mmol/L Low 21-32 [facility] Comment on above: Performed By: #### 2 243-4 #### MARIA E KAPADIA ([id number]) [facility] ([facility]) [address] [place] [address] Creatinine [Mass/Vol] 0.83 mg/dL Normal 0.50-1.05 [facility] Comment on above: Performed By: #### 2 243-4 #### MARIA E KAPADIA ([id number]) [facility] ([facility]) [address] [place] [address] GFR/1.73 sq M.predicted MDRD (S/P/Bld) [Vol rate/Area] mL/min/{1.73_m2} Normal >60 [facility] Comment on above: Result Comment: Calc ulations of estimated GFR are performed using the 2020 CKD-EPI Study Refit equation without the race variable for the IDMS-Traceable creatinine methods. https://jasn.asnjournals.org/content//ASN.90938 14487 Performed By: #### 2 243-4 #### MARIA E KAPADIA ([id number]) [facility] ([facility]) [address] [place] [address] Glucose [Mass/Vol] 110 mg/dL High 74-[address] [facility] Comment on above: Performed By: #### 2 243-4 #### MARIA E KAPADIA ([id number]) [facility] ([facility]) [address] [place] [address] Potassium [Moles/Vol] 4.3 mmol/L Normal 3.5-5.3 [facility] Comment on above: Performed By: #### 2 243-4 #### MARIA E KAPADIA ([id number]) [facility] ([facility]) [address] [place] [address] Protein [Mass/Vol] 6.9 g/dL Normal 6.4-8.[address] [facility] Comment on above: Performed By: #### 2 243-4 #### MARIA E KAPADIA ([id number]) [facility] ([facility]) [address] [place] [address] Sodium [Moles/Vol] 136 mmol/L Normal 136-[address] [facility] Comment on above: Performed By: #### 2 243-4 #### MARIA E KAPADIA ([id number]) [facility] ([facility]) [address] [place] [place] [phone] Urea nitrogen [Mass/Vol] 10 mg/dL Normal 6-23 [facility] Comment on above: Performed By: #### 2 243-4 #### MARIA E KAPADIA ([id number]) [facility] ([facility]) [address] [place] [phone] HCG.beta subunit Qnon 2024 Interpretation and review of laboratory results Abnormal [facility] Total HCG measuremen t is performed using the Елена Stewardson Access Immunoassay which detects intact HCG and free beta HCG subunit. This test is not indicated for use as a tumor marker. HCG testing is performed using a different test methodology at [facility] than other [facility]. Direct result comparison should only be made within the same method. [facility] Human Chorionic Gonadotropin , Serum Quantitativeon 01-22-2025 [place] [address] m[IU]/mL High [facility] U [facility] Comment on above: Low-level positive H [...] Ql (Unsp spec) None Seen None Seen [facility] T. vaginalis Wet prep Ql (Unsp spec) None Seen None Seen [facility] WBC Wet prep Ql (Vag fld) 1-2 [facility] Yeast Wet prep Ql (Vag fld) None Seen None Seen [facility] Microscopic observation Wet prep Nom (Unsp spec)on 01-22-2025 Clue cells Wet prep Ql (Unsp spec) None Seen Normal None Seen [facility] Comment on above: Performed By: #### 2 243-4 #### MARIA E KAPADIA ([id number]) [facility] ([facility]) [address] [place] [address] T. vaginalis Wet prep Ql (Unsp spec) None Seen Normal None Seen [facility] Comment on above: Performed By: #### 2 243-4 #### MARIA E KAPADIA ([id number]) [facility] ([facility]) [address] [place] [address] WBC Wet prep Ql (Vag fld) 1-2 Normal [facility] Comment on above: Performed By: #### 2 243-4 #### MARIA E KAPADIA ([id number]) [facility] ([facility]) [address] [place] [address] Yeast Wet prep Ql (Vag fld) None Seen Normal None Seen [facility] Comment on above: Performed By: #### 2 243-4 #### MARIA E KAPADIA ([id number]) [facility] ([facility]) [address] [place] [phone] US OB LESS THAN 14 WEEKS EAR [place] 01-22-2025 US OB LESS THAN 14 WEEKS EARLY Interpreted By: Lisa Parmar, STUDY: US OB LESS THAN 14 WEEKS EARLY 01/22/2025 12:37 pm INDICATION: Signs/Symptoms:6 weeks with brown/pink discharge and lower back pain COMPARISON: 01/18/2025 ACCESSION NUMBER(S): [id number] ORDERING CLINICIAN: ZANE PRYOR TECHNIQUE: Transabdominal and [...] Lisa Parmar 01/22/2025 1:12 PM Dictation workstation: [id number] [facility] US for in first tr imesteron 01-22-2025 Single live intraute rine gestation of 6 weeks and 5 days sonographic gestational age. There has been normal interval growth since 01/18/2025. 0.4 x 0.6 x 0.9 cm subchorionic hemorrhage. Signed by: Lisa Parmar 01/22/2025 1:12 PM Dictation workstation: [id number] [facility] Interpreted By: Lisa Parmar, STUDY: US OB LESS THAN 14 WEEKS EARLY 01/22/2025 12:37 pm INDICATION: Signs/Symptoms:6 weeks with brown/pink discharge and lower back pain COMPARISON: 01/18/2025 ACCESSION NUMBER(S): [id number] ORDERING CLINICIAN: ZANE PRYOR TECHNIQUE: Transabdominal and [...] lower back pain COMPARISON: 01/18/2025 ACCESSION NUMBER(S): [id number] ORDERING CLINICIAN: ZANE PRYOR TECHNIQUE: Transabdominal and [...] Lisa Parmar 01/22/2025 1:12 PM Dictation workstation: [id number] [facility] Work Phone: Radiology Study observation (narrative) [facility] Work Phone: US for in first tr imesterOrdered By: Lisa Parmar on 01-22-2025 [facility] Work Phone: Urinalysis complete W Reflex Culture panel (U)on 01-22-2025 Appearance (U) Clear Clear [facility] Bilirubin (U) [Mass/Vol] Negative NEGATIVE mg/dL [facility] Color (U) Colorless Abnormal Light-Yellow , Yellow, Dark-Yellow [facility] Glucose Auto test strip (U) [Mass/Vol] Normal Normal mg/dL [facility] Interpretation and review of laboratory results Abnormal [facility] Ketones (U) [Mass/Vol] Negative NEGAT CARMEN mg/dL [facility] Leukocyte esterase Auto test strip Ql (U) Negative NEGATIVE [facility] Nitrite Auto test strip Ql (U) Negative NEGATIVE [facility] pH (U) 8 [pH] 5.0, 5.5, 6.0, 6.5, 7.0, 7.5, 8.0 [facility] Protein (U) [Mass/Vol] Negative NEGAT CARMEN, 10 (TRACE), 20 (TRACE) mg/dL [facility] RBC (U) [#/Vol] Negative NEGATIVE mg/dL [facility] Specific gravity (U) [Rel density] 1.006 1.005 - 1.035 [facility] Urobilinogen (U) [Mass/Vol] Normal Normal mg/dL [facility] Appearance (U) Clear Normal Clear [facility] Comment on above: Performed By: #### 2 243-4 #### MARIA E KAPADIA ([id number]) [facility] ([facility]) [address] [place] [address] Bilirubin (U) [Mass/Vol] Negative Normal NEGATIVE [facility] Comment on above: Performed By: #### 2 243-4 ###Katy KAPADIA ([id number]) [facility] ([facility]) [address] [place], [place] [phone] Color (U) Colorless Normal Light-Yellow , Yellow, Dark-Yellow [facility] Comment on above: Performed By: #### 2 243-4 #### MARIA E KAPADIA ([id number]) [facility] ([facility]) [address] [place] [address] Glucose Auto test strip (U) [Mass/Vol] Normal Normal Normal [facility] Comment on above: Performed By: #### 2 243-4 #### MARIA E KAPADIA ([id number]) [facility] ([facility]) [address] [place] [address] Ketones (U) [Mass/Vol] Negative Normal NEGATIVE Un [facility] Comment on above: Performed By: #### 2 243-4 #### MARIA E KAPADIA ([id number]) [facility] ([facility]) [address] [place] [address] Leukocyte esterase Auto test strip Ql (U) Negative Normal NEGATIVE [facility] Comment on above: Performed By: #### 2 243-4 #### MARIA E KAPADIA ([id number]) [facility] ([facility]) [address] [place], [place] [id number] Nitrite Auto test strip Ql (U) Negative Normal NEGATIVE [facility] Comment on above: Performed By: #### 2 243-4 #### MARIA E KAPADIA ([id number]) [facility] ([facility]) [address] [place] [address] pH (U) 8.0 [pH] Normal 5.0, 5.5, 6.0, 6.5, 7.0, 7.5, 8.0 [facility] Comment on above: Performed By: #### 2 243-4 #### MARIA E KAPADIA ([id number]) [facility] ([facility]) [address] [place] [address] Protein (U) [Mass/Vol] Negative Normal NEGAT CARMEN, 10 (TRACE), 20 (TRACE) [facility] Comment on above: Performed By: #### 2 243-4 #### MARIA E KAPADIA ([id number]) [facility] ([facility]) [address] [place] [address] RBC (U) [#/Vol] Negative Normal NEGATIVE [facility] Comment on above: Performed By: #### 2 243-4 #### MARIA E KAPADIA ([id number]) [facility] ([facility]) [address] [place] [address] Specific gravity (U) [Rel density] 1.006 Normal 1.005-1.035 [facility] Comment on above: Performed By: #### 2 243-4 #### MARIA E KAPADIA ([id number]) [facility] ([facility]) [address] [place] [address] Urobilinogen (U) [Mass/Vol] Normal Normal Normal [facility] Comment on above: Performed By: #### 2 243-4 #### MARIA E KAPADIA ([id number]) [facility] ([facility]) [address] [place] [phone] US OB TRANSVAGINALon 025 US OB TRANSVAGINAL [...] evaluation for early dating. View: Sufficient Normal [facility] US OB TRANSVAGINALon 025 US OB [...] evaluation for early dating. View: Sufficient Normal [facility] Choriogonadotropin.beta subu niton 01-09-2025 HCG.beta subunit Qn 1756 m[IU]/mL High <5 [facility] Comment on above: Order Comment: REF [...] #### 2 243-4 #### MARIA E STEFFI ([id number]) [facility] ([facility]) [address] [place] [address] Absolute lymphocyte countOrd ered By: Domo Weaver on 01-06-2025 Lymphocytes Auto (Unsp spec) [#/Vol] 2.66 10*3/uL 0.83-4.51 [facility] Absolute neutrophil countOrd ered By: Domo Weaver on 01-06-2025 Neutrophils (Bld) [#/Vol] 5.5 10*3/uL 2.0-7.7 [facility] Anion gap in Serum or Plasma Ordered By: Domo Weaver on 01-06-2025 Anion gap [Moles/Vol] 13 mmol/L 5-15 [facility] Automated lymphocyte count a s percentage of total leukocytesOrdered By: Domo Weaver on 01-06-2025 Lymphocytes/100 WBC Auto (Unsp spec) 30.2 % 19-41 [facility] BUN/creatinine ratioOrdered By: Domo Weaver on 01-06-2025 Urea nitrogen/Creatinine [Mass ratio] 15.8 mg/mg 10- [facility] Basophil percentageOrdered B y: Domo Weaver on 01-06-2025 Basophils/100 WBC (Bld) 0.7 % 0- [facility] Bilirubin, totalOrdered By: Domo Weaver on 01-06-2025 Bilirubin [Mass/Vol] 0.32 mg/dL 0.00-1.30 [facility] CBC W/Diff, Automatedon 12-28 0-2024 Absolute Lymph 2.66 X10 3/uL Normal 0.83-4.51 [facility] Comment on above: Performed By: #### L 100.0100, L500.4050, L501.6710, L101.9900 ####[facility] [id number] [place], [address] Absolute Neut 5.5 X10 3/uL Normal 2.0-7.7 [facility] Comment on above: Performed By: #### L 100.0100, L500.4050, L501.6710, L101.9900 ####[facility] [address] [place], [address] Basophils/100 WBC (Bld) 0.7 % Normal 0-1 [facility] Comment on above: Performed By: #### L 100.0100, L500.4050, L501.6710, L101.9900 ####[facility] [address] [place], [address] Eosinophils/100 WBC (Bld) 1.4 % Normal 0-5 [facility] Comment on above: Performed By: #### L 100.0100, L500.4050, L501.6710, L101.9900 ####[facility] [address] [place], [address] Erythrocyte distribution width (RBC) [Ratio] 12.3 % Normal 11.6-14.6 [facility] Comment on above: Performed By: #### L 100.0100, L500.4050, L501.6710, L101.9900 ####[facility] [address] [place], [address] Hematocrit (Bld) [Volume fraction] 34.3 % Low 37-47 [facility] Comment on above: Performed By: #### L 100.0100, L500.4050, L501.6710, L101.9900 ####[facility] [address] [place], [address] Hemoglobin (Bld) [Mass/Vol] 11.2 g/dL Low 12.0-15.0 [facility] Comment on above: Performed By: #### L 100.0100, L500.4050, L501.6710, L101.9900 ####[facility] [address] [place], [address] IG% 0.300 Normal 0.0-0.9 [facility] Comment on above: Result Comment: IG% - Immature Granulocytes (promyelocytes, myelocytes and metamyelocytes) > 1% indicates that a LEFT SHIFT is Present. Performed By: #### L 100.0100, L500.4050, L501.6710, L101.9900 ####[facility] [address] [place], [address] Lymphocytes/100 WBC (Bld) 30.2 % Normal 19-41 [facility] Comment on above: Performed By: #### L 100.0100, L500.4050, L501.6710, L101.9900 ####[facility] [address] [place], [address] MCH (RBC) [Entitic mass] 29.6 pg Normal 27.0-32.0 [facility] Comment on above: Performed By: #### L 100.0100, L500.4050, L501.6710, L101.9900 ####[facility] [address] [place], [address] MCHC (RBC) [Mass/Vol] 32.7 g/dL Normal 32-36 [facility] Comment on above: Performed By: #### L 100.0100, L500.4050, L501.6710, L101.9900 ####[facility] [address] [place], [address] MCV (RBC) [Entitic vol] 90.7 fL Normal 81-99 [facility] Comment on above: Performed By: #### L 100.0100, L500.4050, L501.6710, L101.9900 ####[facility] [address] [place], [address] Monocytes/100 WBC (Bld) 4.7 % Normal 0-10 [facility] Comment on above: Performed By: #### L 100.0100, L500.4050, L501.6710, L101.9900 ####[facility] [address] [place], [address] Neutrophils/100 WBC (Bld) 62.7 % Normal 47-70 [facility] Comment on above: Performed By: #### L 100.0100, L500.4050, L501.6710, L101.9900 ####[facility] [address] [place], [address] Nucleated RBC (Bld) [#/Vol] 0 10*3/uL Normal 0-5 [facility] Comment on above: Performed By: #### L 100.0100, L500.4050, L501.6710, L101.9900 ####[facility] [address] [place], [address] Platelet mean volume (Bld) [Entitic vol] 10.0 fL Normal 6.2-12.0 [facility] Comment on above: Performed By: #### L 100.0100, L500.4050, L501.6710, L101.9900 ####[facility] [address] [place], [address] Platelets (Bld) [#/Vol] 358 10*3/uL Normal 150-450 [facility] Comment on above: Performed By: #### L 100.0100, L500.4050, L501.6710, L101.9900 ####[facility] [address] [place], [address] RBC (Bld) [#/Vol] 3.78 10*6/uL Low 4.2-5.4 [facility] Comment on above: Performed By: #### L 100.0100, L500.4050, L501.6710, L101.9900 ####[facility] [address] [place], [address] RDW SD 40.6 fl Normal 35.1-43.9 [facility] Comment on above: Performed By: #### L 100.0100, L500.4050, L501.6710, L101.9900 ####[facility] [address] [place], [address] WBC (Bld) [#/Vol] 8.8 10*3/uL Normal 4.4-11.0 [facility] Comment on above: Performed By: #### L 100.0100, L500.4050, L501.6710, L101.9900 ####[facility] [address] [place], [address] CRPon 01-06-2025 C-REACTIVE PROT 5.97 mg/L High 0.0-3.0 [facility] Comment on above: Performed By: #### L 100.0100, L500.4050, L501.6710, L101.9900 ####[facility] [address] [place], [address] Carbon dioxide, total [Moles /volume] in Central venous bloodOrdered By: Domo Weaver on 01-06-2025 CO2 [Moles/Vol] 21.3 mmol/L 21.0-32.0 [facility] Chloride assayOrdered By: Ra clarita Weaver on 01-06-2025 Chloride [Moles/Vol] 104 mmol/L 98-108 [facility] Comprehensive Metabolic Prof ilon 01-06-2025 Albumin [Mass/Vol] 4.2 g/dL Normal 3.5-5.0 [facility] Comment on above: Performed By: #### L 100.0100, L500.4050, L501.6710, L101.9900 ####[facility] [address] [place], [address] Albumin/Globulin [Mass ratio] 1.4 {ratio} Normal 0.9-2.4 [facility] Comment on above: Performed By: #### L 100.0100, L500.4050, L501.6710, L101.9900 ####[facility] [address] [place], [address] ALK PHOS 57 U/L Normal 35-104 [facility] Comment on above: Performed By: #### L 100.0100, L500.4050, L501.6710, L101.9900 ####[facility] [address] [place], [address] ALT [Catalytic activity/Vol] 15 U/L Normal <=34 [facility] Comment on above: Performed By: #### L 100.0100, L500.4050, L501.6710, L101.9900 ####[facility] [address] [place], [address] AST [Catalytic activity/Vol] 18 U/L Normal <=31 [facility] Comment on above: Performed By: #### L 100.0100, L500.4050, L501.6710, L101.9900 ####[facility] [address] [place], [address] Bilirubin [Mass/Vol] 0.32 mg/dL Normal 0.00-1.30 [facility] Comment on above: Performed By: #### L 100.0100, L500.4050, L501.6710, L101.9900 ####[facility] [address] [place], [address] BUN/CRE 15.8 RATIO Normal 10-20 [facility] Comment on above: Performed By: #### L 100.0100, L500.4050, L501.6710, L101.9900 ####[facility] [address] [place], [address] Calcium [Mass/Vol] 9.2 mg/dL Normal 7.6-11.0 [facility] Comment on above: Performed By: #### L 100.0100, L500.4050, L501.6710, L101.9900 ####[facility] [address] [place], [address] Chloride [Moles/Vol] 104 mmol/L Normal 98-108 [facility] Comment on above: Performed By: #### L 100.0100, L500.4050, L501.6710, L101.9900 ####[facility] [address] [place], [address] CO2 [Moles/Vol] 21.3 mmol/L Normal 21.0-32.0 [facility] Comment on above: Performed By: #### L 100.0100, L500.4050, L501.6710, L101.9900 ####[facility] [address] [place], [address] Creatinine [Mass/Vol] 0.69 mg/dL Low 0.70-1.20 [facility] Comment on above: Performed By: #### L 100.0100, L500.4050, L501.6710, L101.9900 ####[facility] [address] [place], [address] GAP 13 Normal 5-15 [facility] Comment on above: Performed By: #### L 100.0100, L500.4050, L501.6710, L101.9900 ####[facility] [address] [place], [address] GFR/1.73 sq M.predicted among non-blacks MDRD (S/P/Bld) [Vol rate/Area] 120 mL/min/{1.73_m2} Normal >60 [facility] Comment on above: Result Comment: mL/m in/1.73m2 CKD-EPI Creatinine Equation (2020) Performed By: #### L 100.0100, L500.4050, L501.6710, L101.9900 ####[facility] [address] [place], [address] Globulin (S) [Mass/Vol] 3.0 g/dL Normal 2.2-4.2 [facility] Comment on above: Performed By: #### L 100.0100, L500.4050, L501.6710, L101.9900 ####[facility] [address] [place], [address] Glucose [Mass/Vol] 121 mg/dL High 70-99 [facility] Comment on above: Performed By: #### L 100.0100, L500.4050, L501.6710, L101.9900 ####[facility] [address] [place], [address] Potassium [Moles/Vol] 3.7 mmol/L Normal 3.3-5.1 [facility] Comment on above: Performed By: #### L 100.0100, L500.4050, L501.6710, L101.9900 ####[facility] [address] [place], [address] Sodium [Moles/Vol] 138 mmol/L Normal 133-145 [facility] Comment on above: Performed By: #### L 100.0100, L500.4050, L501.6710, L101.9900 ####[facility] [address] [place], [address] T PROT 7.2 g/dL Normal 5.9-8.4 [facility] Comment on above: Performed By: #### L 100.0100, L500.4050, L501.6710, L101.9900 ####[facility] [address] [place], [address] Urea nitrogen [Mass/Vol] 11 mg/dL Normal 4-19 [facility] Comment on above: Performed By: #### L 100.0100, L500.4050, L501.6710, L101.9900 ####[facility] [address] [place], [address] Eosinophil percentageOrdered By: Domo Weaver on 01-06-2025 Eosinophils/100 WBC (Bld) 1.4 % 0-5 [facility] Erythrocyte Sed Rateon 01-06 SED RATE 8 mm/hr Normal 0-30 [facility] Comment on above: Performed By: #### L 100.0100, L500.4050, L501.6710, L101.9900 ####[facility] [address] [place], [address] Erythrocyte distribution wid th ratioOrdered By: Domo Weaver on 01-06-2025 Erythrocyte distribution width (RBC) [Ratio] 12.3 % 11.6-14.6 [facility] Erythrocyte distribution wid th standard deviationOrdered By: Domo Weaver on 01-06-2025 Erythrocyte distribution width (RBC) [Ratio] 40.6 fl 35.1-43.9 [facility] Erythrocyte sedimentation ra teOrdered By: Domo Weaver on 01-06-2025 ESR (Bld) [Velocity] 8 mm/h 0-30 [facility] Glomerular filtration rate ( GFR) estimation/1.73 sq [...] 01-06-2025 MCHC (RBC) [Mass/Vol] 32.7 g/dL 32-36 [facility] Mean platelet volume determi nationOrdered By: [...] RBC (Bld) [#/Vol] 3.78 10*6/uL Low 4.2-5.4 [facility] Serum creatinine measurement (mass/volume)Ordered By: Domo Weaver on 01-06-2025 Creatinine [Mass/Vol] 0.69 mg/dL Low 0.70-1.20 [facility] Serum globulin measurementOr dered By: Domo Weaver on 01-06-2025 Globulin (S) [Mass/Vol] 3.0 g/dL 2.2-4.2 [facility] Serum glucose measurement (m ass/volume)Ordered By: Domo Weaver on 01-06-2025 Glucose [Mass/Vol] 121 mg/dL High 70-99 [facility] Serum or plasma C reactive p rotein measurement (mass/volume)Ordered By: Domo Weaver on 01-06-2025 CRP [Mass/Vol] 5.97 mg/L High 0.0-3.0 [facility] Serum or plasma alanine parisi otransferase (ALT) measurementOrdered By: Domo Weaver on 01-06-2025 ALT [Catalytic activity/Vol] 15 U/L <35 [facility] Serum or plasma albumin arielle urement (mass/volume)Ordered By: Domo Weaver on 01-06-2025 Albumin [Mass/Vol] 4.2 g/dL 3.5-5.0 [facility] Serum or plasma albumin/glob ulin mass ratioOrdered By: Domo Weaver on 01-06-2025 Albumin/Globulin [Mass ratio] 1.4 {ratio} 0.9-2.4 [facility] Serum or plasma alkaline marcelo sphatase measurementOrdered By: Domo Weaver on 01-06-2025 ALP [Catalytic activity/Vol] 57 U/L 35-104 [facility] Serum or plasma calcium arielle urement (mass/volume)Ordered By: Domo Weaver on 01-06-2025 Calcium [Mass/Vol] 9.2 mg/dL 7.6-11.0 [facility] Serum or plasma urea nitroge n measurement (mass/volume)Ordered By: Domo Weaver on 01-06-2025 Urea nitrogen [Mass/Vol] 11 mg/dL 4-19 [facility] Sodium levelOrdered By: Alisa Michelle on 01-06-2025 Sodium [Moles/Vol] 138 mmol/L 133-145 [facility] Total proteinOrdered By: Lai Weaver on 01-06-2025 Protein [Mass/Vol] 7.2 g/dL 5.9-8.4 [facility] White blood cell (WBC) count Ordered By: Domo Weaver on 01-06-2025 WBC (Bld) [#/Vol] 8.8 10*3/uL 4.4-11.0 [facility] Choriogonadotropin.beta subu niton 01-05-2025 HCG.beta subunit [...] #### 2 243-4 #### MARIA E STEFFI ([id number]) [facility] ([facility]) [address] [place] [address] Gastroenterology Visit Repor ton 01-01-2025 Gastroenterology Visit Report [facility] [address] [place] [address] OFFICE VISIT Date of Service: 01/01/25 MR#: [id number] Acct: [id number] Name: MARIXA AMOS Rep #: [id number] : 1995 Provider: Domo Weaver DO Age/Sex: 29/F Location: [facility] Status: Signed Intake Vital Signs 12/09/23 [...] mL 07/07/24 0 01/01/25 [facility] cholecalciferol (vitamin D3) 62.5 mcg PO 07/12/24 01/01/25 History mcg (2,500 unit) capsule omega 9-vvc-kfc-fish oil 300 1 cap PO QDAY 07/12/24 [...] story progesterone oil IM 01/01/25 01/01/25 History [facility] Medical History (Updated 07/12/24 @ 10:30 by Jesika Farrar NP, PERSONNEL RESEARCH PSYCHOLOGIST-C) Endometriosis Low iron Anemia Latent tuberculosis Ulcerative [...] Preop diagnosis: Infertility Post op diagnosis: Same Senior Controls Analyst: Dr. Holder Depth: 7 cm Curve: anterior [...] as documented in the fellow's note. Gavino Tritsan 12/26/24 11:35 AM [facility] Work Phone: Progesteroneon 12-26-2024 Progesterone [Mass/Vol] 34.6 ng/mL [facility] Comment on above: Order Comment: REF V ALUES FOLLICULAR PHASE 20-144 MID CYCLE 64-357 LUTEAL PHASE 56-214 POSTMENOPAUSE < 32 PREPUBERTY < 20 FEMALE 10-18Y 8-110 MALE 10-18Y < 20 ADULT MALE < 40 Performed By: #### 2 243-4 #### MARIA E STEFFI ([id number]) [facility] ([facility]) [address] [place] [address] LIPID PANEL, STANDARDon 11-29 Cholesterol [Mass/Vol] 228 mg/dL High <200 [facility] Comment on above: Order Comment: FASTI NG:YES FASTING: YES Performed By: #### 1 5214, 7600 #### [facility] [address], [address] [place] [address] Moulder Operator: Cody Spencer MD Cholesterol in HDL [Mass/Vol] 68 mg/dL Normal > OR = 50 [facility] Comment on above: Order Comment: FASTI NG:YES FASTING: YES Performed By: #### 1 2206, 7600 #### [facility] [address], [address] [place] [address] Moulder Operator: Cody Spencer MD Cholesterol in LDL [...] Luis Miguel GALLARDO et al. DESIRE. 2013;310(19): 4365-3302 (http://education.SEElogix/faq/QEE585) Performed By: #### 1 3674, 7600 #### [facility] [address], [address] [place] [address] Moulder Operator: Cody Spencer MD Cholesterol.total/Chol esterol in HDL [Mass ratio] 3.4 {ratio} Normal <5.0 [facility] Comment on above: Order Comment: FASTI NG:YES FASTING: YES Performed By: #### 1 9411, 7600 #### [facility] [address], [address] [place] [address] Moulder Operator: Cody Spencer MD NON HDL CHOLESTEROL 160 mg/dL (calc) High <130 [facility] Comment on above: Order Comment: FASTI NG:YES FASTING: YES Result Comment: For patients with diabetes plus 1 major ASCVD risk factor, treating to a non-HDL-C goal of <100 mg/dL (LDL-C of <70 mg/dL) is considered a therapeutic option. Performed By: #### 1 7306, 7600 #### [facility] [address], [address] [place] [address] Moulder Operator: Cody Spencer MD Triglyceride [Mass/Vol] 190 mg/dL High <150 [facility] Comment on above: Order Comment: FASTI NG:YES FASTING: YES Performed By: #### 1 7306, 7600 #### [facility] [address], [address] [place] [address] Moulder Operator: Cody Spencer MD VITAMIN D,25-OH,TOTAL,IAon 0 [...] D, (D2,D3), LC/MS/MS is recommended: order code 60660 (patients >2yrs). See Note 1 Note 1 For additional information, please refer to http://education.[employer].Accellos/faq/MTX101 (This link is being provided for informational/ educational purposes only.) Performed By: #### 1 3570, 2240 #### [facility] [address], [address] [place] [address] Moulder Operator: Cody Spencer MD Destr of lesionon 12-20-2024 Complexity: simple Destruction method: cryotherapy Informed consent: discussed and consent obtained Debridement: hyperkeratotic portion removed with sharp debridement Lesion destroyed using liquid nitrogen: Yes Cryotherapy cycles: 3 Outcome: patient tolerated procedure well with no complications Post-procedure details: wound care instructions given [facility] Work Phone: [facility] Work Phone: Progesteroneon 12-20-2024 Progesterone [Mass/Vol] 0.2 ng/mL Normal [facility] Comment on above: Order Comment: REF V ALUES FOLLICULAR PHASE 20-144 MID CYCLE 64-357 LUTEAL PHASE 56-214 POSTMENOPAUSE < 32 PREPUBERTY < 20 FEMALE 10-18Y 8-110 MALE 10-18Y < 20 ADULT MALE < 40 Performed By: #### 2 243-4 #### MARIA E KAPADIA ([id number]) [facility] ([facility]) [address] [place] [address] Estradiolon 12-15-2024 E2 [Mass/Vol] 417 pg/mL [facility] Comment on above: Order Comment: REF V ALUES FOLLICULAR PHASE 20-144 MID CYCLE 64-357 LUTEAL PHASE 56-214 POSTMENOPAUSE < 32 PREPUBERTY < 20 FEMALE 10-18Y 8-110 MALE 10-18Y < 20 ADULT MALE < 40 Performed By: #### 2 243-4 #### MARIA E KAPADIA ([id number]) [facility] ([facility]) [address] [place] [address] Progesteroneon 12-15-2024 Progesterone [Mass/Vol] 0.6 ng/mL [facility] Comment on above: Order Comment: REF V ALUES FOLLICULAR PHASE 20-144 MID CYCLE 64-357 LUTEAL PHASE 56-214 POSTMENOPAUSE < 32 PREPUBERTY < 20 FEMALE 10-18Y 8-110 MALE 10-18Y < 20 ADULT MALE < 40 Performed By: #### 2 243-4 #### MARIA E KAPADIA ([id number]) [facility] ([facility]) [address] [place] [address] [facility] ENDOMETRIAL LINING CH ECKon 12-15-2024 [facility] ENDOMETRIAL LINING CHECK Trilaminar appearance to the endometrium is noted. Normal [facility] ANTI-MULLERIAN HORMONE (AMH) , FEMALEon 11-25-2024 ANTI-MULLERIAN HORMONE ([facility]), FEMALE 1.90 ng/mL Normal 0.69-13.39 [facility] Comment on above: Performed By: #### 1 1363, 45292, 70148, 8472, 83122, 498 #### [facility] [address] [address] Moulder Operator: Cody Spencer MD #### [id number] #### [facility]/[address] [place], [place] Moulder Operator: Jeremiah Holder M.D.,PhD #### [id number] #### [facility], [address] [place] [address] Moulder Operator: Bianka Brenner MD,PhD,HAMLET CHLAMYDIA/N. GONORRHOEAE RNA , TMA, UROGENITALon 11-25-2024 CHLAMYDIA TRACHOMATIS RNA, TMA, UROGENITAL Not detected Normal NOT DETECTED [facility] Comment on above: Performed By: #### 1 1363, 66730, 83056, 8472, 62411, 498 #### [facility] [address], [address] [place] [address] Moulder Operator: Cody Spencer MD #### [id number] #### [facility]/[place] [address] [facility] [place], [place] Moulder Operator: Jeremiah Holder M.D.,PhD #### [id number] #### [facility], [address] [place] [address] Moulder Operator: Bianka Brenner MD,PhD,HAMLET COMMENT Normal [facility] Comment on above: Result Comment: The analytical performance characteristics of this assay, when used to test SurePath(TM) specimens have been determined by [employer]. The modifications have not been cleared or approved by the FDA. This assay has been validated pursuant to the CLIA regulations and is used for clinical purposes. For additional information, please refer to https://education.[employer]/faq/KGR177 (This link is being provided for information/ educational purposes only.) Performed By: #### 1 1363, 91907, 65843, 8472, 77290, 498 #### [facility] [address], [address] [place], [place] [address] Moulder Operator: Cody Spencer MD #### [id number] #### [facility]/[place] [address] [place] Moulder Operator: Jeremiah Holder M.D.,PhD #### [id number] #### [facility], [address] [address] Moulder Operator: Bianka Brenner MD,PhD,HAMLET NEISSERIA GONORRHOEAE RNA, TMA, UROGENITAL Not detected Normal NOT DETECTED [facility] Comment on above: Performed By: #### 1 1363, 51262, 74161, 8472, 72127, 498 #### [facility] of [facility] [address], [address] [place] [address] Moulder Operator: Cody Spencer MD #### [id number] #### [facility] [address] [place] Moulder Operator: Jeremiah Holder M.D.,PhD #### [id number] #### [facility], [address] [place], [place] Moulder Operator: Bianka Brenner MD,PhD,HAMLET HEMOGLOBIN A1c WITH eAGon eAG (mmol/L) 6.0 mmol/L Normal [facility] Comment on above: Performed By: #### 1 1363, 12194, 11172, 8472, 47254, 498 #### [facility] [address], [address] [place] [address] Moulder Operator: Cody Spencer MD #### 31990 #### [facility] [address] [place] Moulder Operator: Jeremiah Holder M.D.,PhD #### 54726 #### [facility], [address] [place] [address] Moulder Operator: Bianka Brenner MD,PhD,HAMLET HEMOGLOBIN A1c 5.4 [...] diagnosis of diabetes in children. According to [place] Diabetes Association (ADA) guidelines, hemoglobin A1c <7.0% represents optimal control in non- diabetic patients. Different metrics may apply to specific patient populations. Standards of Medical Care in Diabetes(ADA). Performed By: #### 1 1363, 90946, 34817, 8472, 09821, 498 #### [facility] [address], [address] [place] [address] Moulder Operator: Cody Spencer MD #### 77385 #### [facility] [address] [place], [place] Moulder Operator: Jeremiah Holder M.D.,PhD #### [id number] #### [facility], [address] [place] [address] Moulder Operator: Bianka Brenner MD,PhD,HAMLET Magnesium [Mass/Vol] 108 mg/dL Normal [facility] Comment on above: Performed By: #### 1 1363, 82102, 68438, 8472, 41375, 498 #### [facility] [address], [address] [place] [address] Moulder Operator: Cody Spencer MD #### 85157 #### [facility] [address] [place] [address] Moulder Operator: Jeremiah Holder M.D.,PhD #### 65086 #### [facility], [address] [place] [address] Moulder Operator: Bianka Brenner MD,PhD,HAMLET HEPATITIS B SURFACE ANTIGEN W/REFL CONFIRMon 11-25-2024 HEPATITIS B SURFACE ANTIGEN Non-Reactive Normal NON-REACTIVE [facility] Comment on above: Result Comment: For additional information, please refer to http://Vollee.[employer]/faq/RUZ825 (This link is being provided for informational/ educational purposes only.) Performed By: #### 1 1363, 20110, 58610, 8472, 04205, 498 #### [facility] [address], [address] [place] [address] Moulder Operator: Cody Spencer MD #### [id number] #### [facility] [address] [place], [place] Moulder Operator: Jeremiah Holder M.D.,PhD #### [id number] #### [facility], [address] [place], [place] Moulder Operator: Bianka Brenner MD,PhD,HAMLET HEPATITIS C AB W/REFL TO HCV RNA, QN, PCRon 11-25-2024 HEPATITIS C ANTIBODY Non-Reactive Normal NON-REACTIVE [facility] Comment on above: Result Comment: HCV antibody was non-reactive. There is no laboratory evidence of HCV infection. In most cases, no further action is required. However, if recent HCV exposure is suspected, a test for HCV RNA (test code 34079) is suggested. For additional information please refer to http://Vollee.[employer]/faq/VTD91f7 (This link is being provided for informational/ educational purposes only.) Performed By: #### 1 1363, 10273, 91179, 8472, 60154, 498 #### [facility] [address], [address] [place] [address] [address] Moulder Operator: Cody Spencer MD #### [id number] #### [facility] [address] [place] Moulder Operator: Jeremiah Holder M.D.,PhD #### [id number] #### [facility], [address] [place], [place] Moulder Operator: Bianka Brenner MD,PhD,HAMLET HIV 1/2 ANTIGEN/ANTIBODY,FOU [...] purpose. For additional information please refer to [email or web address].Azuki ([email or web address]/[email or web address] (This link is being provided for informational/ educational purposes only.) The performance of this assay has not been clinically validated in patients less than 2 years old. Performed By: #### 1 1363, 52619, 40346, 8472, 66544, 498 #### [facility] [address] [facility], [address] [place] [address] Moulder Operator: Cody Spencer MD #### [id number] #### [facility] [address] [place] Moulder Operator: Jeremiah Holder M.D.,PhD #### [id number] #### [facility], [address] [place] [address] Moulder Operator: Bianka Brenner MD,PhD,HAMLET SYPHILIS ANTIBODY CASCADING [...] is high. Performed By: #### 1 1363, 88793, 53510, 8472, 16095, 498 #### [facility] [address], [address] [place] [address] Moulder Operator: Cody Spencer MD #### [id number] #### [facility] [address] [place], [place] Moulder Operator: Jeremiah Holder M.D.,PhD #### [id number] #### [facility], [address] [place] [address] Moulder Operator: Bianka Brenner MD,PhD,HAMLET TSH W/REFLEX TO FT4on 2024 TSH W/REFLEX TO FT4 0.97 mIU/L Normal [facility] Comment on above: Result Comment: Refe rence Range > or = 20 Years 0.40-4.50 Ranges First trimester 0.26-2.66 Second trimester 0.55-2.73 Third trimester 0.43-2.91 Performed By: #### 1 1363, 09004, 23673, 8472, 97132, 498 #### [facility] [address], [address] [place] [address] Moulder Operator: Cody Spencer MD #### [id number] #### [facility] [address] [place] Moulder Operator: Jeremiah Holder M.D.,PhD #### [id number] #### [facility], [address] [place] [address] Moulder Operator: Bianka Brenner MD,PhD,HAMLET No Panel Informationon 11-22 Henrietta Herndon MD 11/22/2024 10:18 AM Egg Retrieval Date/Time: 11/22/2024 10:15 AM Performed by: Henrietta Herndon MD Authorized by: Katelyn Benitez [facility] Consent: Consent obtained: Verbal and written [...] diagnosis: Female infertility Post op diagnosis: Same Senior Controls Analyst: Leslie IV Fluids: 700 cc EBL: 5 cc UOP: Not recorded Specimen: Oocytes Complications: None Number of Oocytes right ovary: 14 Ovarian acc ss (right): Easy Number of Oocytes left ovary: 9 Ovarian access (left): Easy Endometrial thickness: TL Needle type: Single Additional notes: I was present and supervised the entire procedure. Henrietta Herndon 11/22/24 10:16 AM [facility] Work Phone: Blood type and Indirect anti body screen panel (Bld)on 11-21-2024 ABO group Nom (Bld) B Normal [facility] Comment on above: Performed By: #### 3 4532-2 ####MARIA E KAPADIA ([id number])[facility] ([facility])[address] [place] [address] Blood group antibody screen Ql Negative [facility] Comment on above: Performed By: #### 3 6252-2 ####MARIA E KAPADIA ([id number])[facility] ([facility])[address] [place] [address] US D Ag Ql (Bld) Positive [facility] Comment on above: Performed By: #### 3 4532-2 ####MARIA E KAPADIA ([id number])[facility] ([facility])[address] [place] [address] Lutropinon 11-21-2024 Lutropin Qn 29.1 IU/L [facility] Comment on above: Result Comment: LH R eference Values Follicular Phase 1.5-10.0 Mid-Cycle 13.0-72.0 Luteal Phase 0.5-13.0 Menopause 15.0-65.0 Pre-puberty 0- 3.0 Children 0- 6.0 Adult Male 1.0- 9.0 Luteinizing Hormone is performed using the Socket Mobile Access Immunoassay. LH testing is performed using a different test methodology at [facility] than other [facility]. Direct result comparison should only be made within the same method. Performed By: #### 2 243-4 #### MARIA E KAPADIA ([id number]) [facility] ([facility]) [address] [place] [address] Progesteroneon 11-21-2024 Progesterone [Mass/Vol] 5.4 ng/mL [facility] Comment on above: Order Comment: REF V ALUES FOLLICULAR PHASE 20-144 MID CYCLE 64-357 LUTEAL PHASE 56-214 POSTMENOPAUSE < 32 PREPUBERTY < 20 FEMALE 10-18Y 8-110 MALE 10-18Y < 20 ADULT MALE < 40 Performed By: #### 2 243-4 #### MARIA E KAPADIA ([id number]) [facility] ([facility]) [address] [place] [address] Estradiolon 11-20-2024 E2 [Mass/Vol] 5336 pg/mL [facility] Comment on above: Order Comment: REF V ALUES FOLLICULAR PHASE 20-144 MID CYCLE 64-357 LUTEAL PHASE 56-214 POSTMENOPAUSE < 32 PREPUBERTY < 20 FEMALE 10-18Y 8-110 MALE 10-18Y < 20 ADULT MALE < 40 Performed By: #### 2 243-4 #### MARIA E KAPADIA ([id number]) [facility] ([facility]) [address] [place] [address] Follicle Diameter USon 11-20 Follicle scan perfor med with follicle measurements in report. Trilaminar appearance to the endometrium is noted. Free fluid is noted in the cul de sac. RIS SECTRA ONLY [facility] Work Phone: Radiology Study observation (narrative) [facility] Work Phone: Progesteroneon 11-20-2024 Progesterone [Mass/Vol] 1.8 ng/mL Normal [facility] Comment on above: Order Comment: REF V ALUES FOLLICULAR PHASE 20-144 MID CYCLE 64-357 LUTEAL PHASE 56-214 POSTMENOPAUSE < 32 PREPUBERTY < 20 FEMALE 10-18Y 8-110 MALE 10-18Y < 20 ADULT MALE < 40 Performed By: #### 2 243-4 #### MARIA E KAPADIA ([id number]) [facility] ([facility]) [address] [place] [address] [facility] US PELVIS LIMITED FOLLIC LES-FOLLICLE STUDIES PERFORMEDon 11-20-2024 [facility] US PELVIS LIMITED FOLLICLES-FOLLICLE STUDIES PERFORMED Follicle scan performed with follicle measurements in report. Trilaminar appearance to the endometrium is noted. Free fluid is noted in the cul de sac. Normal [facility] Estradiolon 11-18-2024 E2 [Mass/Vol] 2969 pg/mL Normal [facility] Comment on above: Order Comment: REF V ALUES FOLLICULAR PHASE 20-144 MID CYCLE 64-357 LUTEAL PHASE 56-214 POSTMENOPAUSE < 32 PREPUBERTY < 20 FEMALE 10-18Y 8-110 MALE 10-18Y < 20 ADULT MALE < 40 Performed By: #### 2 243-4 #### MARIA E KAPADIA ([id number]) [facility] ([facility]) [address] [place] [address] Follicle Diameter USon 11-18 Follicle scan perfor med with follicle measurements in report. RIS SECTRA ONLY [facility] Work Phone: Radiology Study observation (narrative) [facility] Work Phone: Progesteroneon 11-18-2024 Progesterone [Mass/Vol] 0.9 ng/mL Normal [facility] Comment on above: Order Comment: REF V ALUES FOLLICULAR PHASE 20-144 MID CYCLE 64-357 LUTEAL PHASE 56-214 POSTMENOPAUSE < 32 PREPUBERTY < 20 FEMALE 10-18Y 8-110 MALE 10-18Y < 20 ADULT MALE < 40 Performed By: #### 2 243-4 #### MARIA E KAPADIA ([id number]) [facility] ([facility]) [address] [place] [address] [facility] US PELVIS LIMITED FOLLIC LES-FOLLICLE STUDIES PERFORMEDon 11-18-2024 [facility] US PELVIS LIMITED FOLLICLES-FOLLICLE STUDIES PERFORMED Follicle scan performed with follicle measurements in report. Normal [facility] Estradiolon 11-16-2024 E2 [Mass/Vol] 1058 pg/mL Normal [facility] Comment on above: Order Comment: REF V ALUES FOLLICULAR PHASE 20-144 MID CYCLE 64-357 LUTEAL PHASE 56-214 POSTMENOPAUSE < 32 PREPUBERTY < 20 FEMALE 10-18Y 8-110 MALE 10-18Y < 20 ADULT MALE < 40 Performed By: #### 2 243-4 #### MARIA E KAPADIA ([id number]) [facility] ([facility]) [address] [place] [phone] Follicle Diameter USon 11-16 Follicle scan perfor med with follicle measurements in report. Trilaminar appearance to the endometrium is noted. RIS SECTRA ONLY [facility] Work Phone: Radiology Study observation (narrative) [facility] Work Phone: [facility] US PELVIS LIMITED FOLLIC LES-FOLLICLE STUDIES PERFORMEDon 11-16-2024 [facility] PELVIS LIMITED FOLLICLES-FOLLICLE STUDIES PERFORMED Follicle scan performed with follicle measurements in report. Trilaminar appearance to the endometrium is noted. Normal [facility] Estradiolon 11-14-2024 E2 [Mass/Vol] 488 pg/mL Normal [facility] Comment on above: Order Comment: REF V ALUES FOLLICULAR PHASE 20-144 MID CYCLE 64-357 LUTEAL PHASE 56-214 POSTMENOPAUSE < 32 PREPUBERTY < 20 FEMALE 10-18Y 8-110 MALE 10-18Y < 20 ADULT MALE < 40 Performed By: #### 2 243-4 #### MARIA E KAPADIA ([id number]) [facility] ([facility]) [address] [place] [address] Follicle Diameter USon 11-14 Follicle scan perfor [facility] with follicle measurements in report. Trilaminar appearance to the endometrium is not noted. Free fluid is noted in the cul de sac. RIS SECTRA ONLY [facility] Work Phone: Radiology Study observation (narrative) [facility] Work Phone: [facility] US PELVIS LIMITED FOLLIC LES-FOLLICLE STUDIES PERFORMEDon 11-14-2024 [facility] US PELVIS LIMITED FOLLICLES-FOLLICLE STUDIES PERFORMED Follicle scan performed with follicle measurements in report. Trilaminar appearance to the endometrium is not noted. Free fluid is noted in the cul de sac. Normal [facility] CBC panel Auto (Bld)on 11-08 Erythrocyte distribution width (RBC) [Ratio] 12.0 % Normal 11.5-14.5 [facility] Comment on above: Performed By: #### 2 243-4 #### MARIA E KAPADIA ([id number]) [facility] ([facility]) [address] [place] [phone] Hematocrit (Bld) [Volume fraction] 35.3 % Low 36.0-46.0 [facility] Comment on above: Performed By: #### 2 243-4 #### MARIA E KAPADIA ([id number]) [facility] ([facility]) [address] [place] [phone] Hemoglobin (Bld) [Mass/Vol] 11.4 g/dL Low 12.0-16.0 [facility] Comment on above: Performed By: #### 2 243-4 #### MARIA E KAPADIA ([id number]) [facility] ([facility]) [address] [place] [phone] MCH (RBC) [Entitic mass] 29.3 pg Normal 26.0-34.0 [facility] Comment on above: Performed By: #### 2 243-4 #### MARIA E KAPADIA ([id number]) [facility] ([facility]) [address] [place] [address] MCHC (RBC) [Mass/Vol] 32.3 g/dL Normal 32.0-36.0 [facility] Comment on above: Performed By: #### 2 243-4 #### MARIA E KAPADIA ([id number]) [facility] ([facility]) [address] [place] [address] MCV (RBC) [Entitic vol] 91 fL Normal 80-100 [facility] Comment on above: Performed By: #### 2 243-4 #### MARIA E KAPADIA ([id number]) [facility] ([facility]) [address] [place] [address] Nucleated RBC/100 WBC (Bld) [Ratio] 0.0 /100 WBCs Normal 0.0-0.0 [facility] Comment on above: Performed By: #### 2 243-4 #### MARIA E KAPADIA ([id number]) [facility] ([facility]) [address] [place] [address] Platelets (Bld) [#/Vol] 326 x10*3/uL Normal 150-450 [facility] Comment on above: Performed By: #### 2 243-4 #### MARIA E KAPADIA ([id number]) [facility] ([facility]) [address] [place] [address] RBC (Bld) [#/Vol] 3.89 x10*6/uL Low 4.00-5.20 [facility] Comment on above: Performed By: #### 2 243-4 #### MARIA E KAPADIA ([id number]) [facility] ([facility]) [address] [place] [address] WBC (Bld) [#/Vol] 5.2 x10*3/uL Normal 4.4-11.3 [facility] Comment on above: Performed By: #### 2 243-4 #### MARIA E KAPADIA ([id number]) [facility] ([facility]) [address] [place] [address] Estradiolon 11-08-2024 E2 [Mass/Vol] 43 pg/mL Normal [facility] Comment on above: Order Comment: REF V ALUES FOLLICULAR PHASE 20-144 MID CYCLE 64-357 LUTEAL PHASE 56-214 POSTMENOPAUSE < 32 PREPUBERTY < 20 FEMALE 10-18Y 8-110 MALE 10-18Y < 20 ADULT MALE < 40 Performed By: #### 2 243-4 #### MARIA E LI ([id number]) [facility] ([facility]) [address] [place] [address] Follicle Diameter USon 11-08 Follicle scan perfor med with follicle measurements in report., Trilaminar appearance to the endometrium is noted., and Free fluid is noted in the cul de sac. RIS SECTRA ONLY Radiology Study observation (narrative) [facility] Work Phone: Follicle Diameter USOrdered By: Henrietta Herndon on 11-08-2024 [facility] Work Phone: [facility] US PELVIS LIMITED FOLLIC LES-FOLLICLE STUDIES PERFORMEDon 11-08-2024 [facility] PELVIS LIMITED FOLLICLES-FOLLICLE STUDIES PERFORMED Follicle scan performed with follicle measurements in report., Trilaminar appearance to the endometrium is noted., and Free fluid is noted in the cul de sac. Normal [facility] No Panel Informationon 10-11 Henrietta Herndon MD 10/11/2024 9:48 AM Egg Retrieval Date/Time: 10/11/2024 9:41 AM Performed by: Henrietta Herndon MD Authorized by: Katelyn Benitez [facility] Consent: Consent obtained: Verbal and written [...] diagnosis: Female infertility Post op diagnosis: Same Senior Controls Analyst: Leslie IV Fluids: 300 cc EBL: 5 cc UOP: Not recorded Specimen: Oocytes Complications: None Number of Oocytes right ovary: 16 Ovarian access (right): Easy Number of Oocytes left ovary: 9 Ovarian access (left): Easy Endometrial thickness: Tl Needle type: Single Additional notes: I was present and supervised the entire procedure. Henrietta S Khushboo 10/11/24 9:42 AM [facility] Work Phone: Lutropinon 10-10-2024 Lutropin Qn 42.5 IU/L [facility] Comment on above: Result Comment: LH R eference Values Follicular Phase 1.5-10.0 Mid-Cycle 13.0-72.0 Luteal Phase 0.5-13.0 Menopause 15.0-65.0 Pre-puberty 0- 3.0 Children 0- 6.0 Adult Male 1.0- 9.0 Luteinizing Hormone is performed using the Socket Mobile Access Immunoassay. LH testing is performed using a different test methodology at [facility] than other [facility]. Direct result comparison should only be made within the same method. Performed By: #### 2 243-4 #### MARIA E KAPADIA ([id number]) [facility] ([facility]) [address] [place] [address] Progesteroneon 10-10-2024 Progesterone [Mass/Vol] 5.0 ng/mL [facility] Comment on above: Order Comment: REF V ALUES FOLLICULAR PHASE 20-144 MID CYCLE 64-357 LUTEAL PHASE 56-214 POSTMENOPAUSE < 32 PREPUBERTY < 20 FEMALE 10-18Y 8-110 MALE 10-18Y < 20 ADULT MALE < 40 Performed By: #### 2 243-4 #### MARIA E KAPADIA ([id number]) [facility] ([facility]) [facility] [place] [address] Estradiolon 10-09-2024 E2 [Mass/Vol] 7372 pg/mL [facility] Comment on above: Order Comment: REF V ALUES FOLLICULAR PHASE 20-144 MID CYCLE 64-357 LUTEAL PHASE 56-214 POSTMENOPAUSE < 32 PREPUBERTY < 20 FEMALE 10-18Y 8-110 MALE 10-18Y < 20 ADULT MALE < 40 Estradiol measurement is performed using the Елена Stewardson Access Estradiol Immunoassay. Estradiol testing is performed using a different test methodology at [facility] than [facility]. Direct result comparison should only be made within the same method. Performed By: #### 2 243-4 #### MARIA E KAPADIA ([id number]) [facility] ([facility]) [address] [place] [address] Progesteroneon 10-09-2024 Progesterone [Mass/Vol] 1.3 ng/mL [facility] Comment on above: Order Comment: REF V ALUES Male <0.2-0.8 Follicular Phase <0.2-1.5 Luteal Phase 7.4-15.4 Post Menopausal <0.2-0.2 1ST Trimester 12.0-84.0 2ND Trimester 10.2-58.8 3RD Trimester 46.5-160 Progesterone is performed using the Елена Stewardson Access Immunoassay. Progesterone testing is performed using a different test methodology at [facility] than [facility]. Direct result comparison should only be made within the same method. Performed By: #### 2 839-9 #### MARIA E KAPADIA ([id number]) [facility] ([facility]) [address] [place] [phone] [facility] US PELVIS LIMITED FOLLIC LES-FOLLICLE STUDIES PERFORMEDon 10-09-2024 [facility] US PELVIS LIMITED FOLLICLES-FOLLICLE STUDIES PERFORMED Follicle scan performed with follicle measurements in report. Normal [facility] Estradiolon 10-08-2024 E2 [Mass/Vol] 4637 pg/mL [facility] Comment on above: Order Comment: REF V ALUES FOLLICULAR PHASE 20-144 MID CYCLE 64-357 LUTEAL PHASE 56-214 POSTMENOPAUSE < 32 PREPUBERTY < 20 FEMALE 10-18Y 8-110 MALE 10-18Y < 20 ADULT MALE < 40 Estradiol measurement is performed using the Елена Luis Access Estradiol Immunoassay. Estradiol testing is performed using a different test methodology at [facility] than [facility]. Direct result comparison should only be made within the same method. Performed By: #### 2 243-4 #### MARIA E KAPADIA ([id number]) [facility] ([facility]) [address] [place] [phone] Follicle Diameter USon 10-08 Follicle scan perfor med with follicle measurements in report. RIS SECTRA ONLY Radiology Study observation (narrative) [facility] Work Phone: Follicle Diameter USOrdered By: Gavino Tristan on 10-08-2024 [facility] Work Phone: Progesteroneon 10-08-2024 Progesterone [Mass/Vol] 0.9 ng/mL Normal [facility] Comment on above: Order Comment: REF V ALUES Male <0.2-0.8 Follicular Phase <0.2-1.5 Luteal Phase 7.4-15.4 Post Menopausal <0.2-0.2 1ST Trimester 12.0-84.0 2ND Trimester 10.2-58.8 3RD Trimester 46.5-160 Progesterone is performed using the Елена Luis Access Immunoassay. Progesterone testing is performed using a different test methodology at [facility] than other [facility]. Direct result comparison should only be made within the same method. Performed By: #### 2 839-9 #### MARIA E KAPADIA ([id number]) [facility] ([facility]) [address] [phone] [facility] US PELVIS LIMITED FOLLIC LES-FOLLICLE STUDIES PERFORMEDon 10-08-2024 [facility] US PELVIS LIMITED FOLLICLES-FOLLICLE STUDIES PERFORMED Follicle scan performed with follicle measurements in report. Normal [facility] Estradiolon 10-07-2024 E2 [Mass/Vol] 4276 pg/mL Normal [facility] Comment on above: Order Comment: REF V ALUES FOLLICULAR PHASE 20-144 MID CYCLE 64-357 LUTEAL PHASE 56-214 POSTMENOPAUSE < 32 PREPUBERTY < 20 FEMALE 10-18Y 8-110 MALE 10-18Y < 20 ADULT MALE < 40 Estradiol measurement is performed using the Елена ubigrate Access Estradiol Immunoassay. Estradiol testing is performed using a different test methodology at [facility] than other [facility]. Direct result comparison should only be made within the same method. Performed By: #### 2 243-4 #### MARIA E KAPADIA ([id number]) [facility] ([facility]) [address] [phone] Follicle Diameter USon 10-07 Follicle scan perfor med with follicle measurements in report. RIS SECTRA ONLY Radiology Study observation (narrative) [facility] Work Phone: Follicle Diameter USOrdered By: Gavino Tristan on 10-07-2024 [facility] Work Phone: Progesteroneon 10-07-2024 Progesterone [Mass/Vol] 0.8 ng/mL Normal [facility] Comment on above: Order Comment: REF V ALUES Male <0.2-0.8 Follicular Phase <0.2-1.5 Luteal Phase 7.4-15.4 Post Menopausal <0.2-0.2 1ST Trimester 12.0-84.0 2ND Trimester 10.2-58.8 3RD Trimester 46.5-160 Progesterone is performed using the Socket Mobile Access Immunoassay. Progesterone testing is performed using a different test methodology at [facility] than other [facility]. Direct result comparison should only be made within the same method. Performed By: #### 2 839-9 #### MARIA E KAPADIA ([id number]) [facility] ([facility]) [address] [place] [address] TERRENCE US PELVIS LIMITED FOLLIC LES-FOLLICLE STUDIES PERFORMEDon 10-07-2024 [facility] US PELVIS LIMITED FOLLICLES-FOLLICLE STUDIES PERFORMED Follicle scan performed with follicle measurements in report. Normal [facility] Estradiolon 10-05-2024 E2 [Mass/Vol] 1290 pg/mL Normal [facility] Comment on above: Order Comment: REF V ALUES FOLLICULAR PHASE 20-144 MID CYCLE 64-357 LUTEAL PHASE 56-214 POSTMENOPAUSE < 32 PREPUBERTY < 20 FEMALE 10-18Y 8-110 MALE 10-18Y < 20 ADULT MALE < 40 Performed By: #### 2 243-4 #### MARIA E KAPADIA ([id number]) [facility] ([facility]) [address] [place] [address] Follicle Diameter USon 10-05 Follicle scan perfor med with follicle measurements in report. Trilaminar appearance to the endometrium is noted. RIS SECTRA ONLY [facility] Work Phone: Radiology Study observation (narrative) [facility] Work Phone: TERRENCE US PELVIS LIMITED FOLLIC LES-FOLLICLE STUDIES PERFORMEDon 10-05-2024 [facility] US PELVIS LIMITED FOLLICLES-FOLLICLE STUDIES PERFORMED Follicle scan performed with follicle measurements in report. Trilaminar appearance to the endometrium is noted. Normal [facility] Estradiolon 10-03-2024 E2 [Mass/Vol] 479 pg/mL Normal [facility] Comment on above: Order Comment: REF V ALUES FOLLICULAR PHASE 20-144 MID CYCLE 64-357 LUTEAL PHASE 56-214 POSTMENOPAUSE < 32 PREPUBERTY < 20 FEMALE 10-18Y 8-110 MALE 10-18Y < 20 ADULT MALE < 40 Performed By: #### 2 243-4 #### MARIA E KAPADIA ([id number]) [facility] ([facility]) [address] [place] [address] TERRENCE US PELVIS LIMITED FOLLIC LES-FOLLICLE STUDIES PERFORMEDon 10-03-2024 [facility] US PELVIS LIMITED FOLLICLES-FOLLICLE STUDIES PERFORMED Follicle scan performed with follicle measurements in report., Trilaminar appearance to the endometrium is noted., and Free fluid is noted in the cul de sac. Normal [facility] CBC panel Auto (Bld)on 09-27 Erythrocyte distribution width (RBC) [Ratio] 12.3 % Normal 11.5-14.5 [facility] Comment on above: Performed By: #### 5 8410-2 #### MARIA E KAPADIA ([id number]) [facility] ([facility]) [address] [id number] Hematocrit (Bld) [Volume fraction] 34.4 % Low 36.0-46.0 [facility] Comment on above: Performed By: #### 5 8410-2 #### MARIA E KAPADIA (62727) [facility] ([facility]) [address] [place] [address] Hemoglobin (Bld) [Mass/Vol] 11.4 g/dL Low 12.0-16.0 [facility] Comment on above: Performed By: #### 5 8410-2 #### MARIA E KAPADIA ([id number]) [facility] ([facility]) [address] [id number] MCH (RBC) [Entitic mass] 29.7 pg Normal 26.0-34.0 [facility] Comment on above: Performed By: #### 5 8410-2 #### MARIA E KAPADIA (46777) [facility] ([facility]) [address] [place] [address] MCHC (RBC) [Mass/Vol] 33.1 g/dL Normal 32.0-36.0 [facility] Comment on above: Performed By: #### 5 8410-2 #### MARIA E KAPADIA (71304) [facility] ([facility]) [address] [place] [address] MCV (RBC) [Entitic vol] 90 fL Normal 80-100 [facility] Comment on above: Performed By: #### 5 8410-2 #### MARIA E KAPADIA (69902) [facility] ([facility]) [address] [id number] Nucleated RBC/100 WBC (Bld) [Ratio] 0.0 /100 WBCs Normal 0.0-0.0 [facility] Comment on above: Performed By: #### 5 8410-2 #### MARIA E KAPADIA (63816) [facility] ([facility]) [address] [place] [address] Platelets (Bld) [#/Vol] 334 x10*3/uL Normal 150-450 [facility] Comment on above: Performed By: #### 5 8410-2 #### MARIA E KAPADIA (51061) [facility] ([facility]) [address] [place] [address] RBC (Bld) [#/Vol] 3.84 x10*6/uL Low 4.00-5.20 [facility] Comment on above: Performed By: #### 5 8410-2 #### MARIA E KAPADIA (63350) [facility] ([facility]) [address] [place] [address] WBC (Bld) [#/Vol] 5.7 x10*3/uL Normal 4.4-11.3 [facility] Comment on above: Performed By: #### 5 8410-2 #### MARIA E STEFFI (18107) [facility] ([facility]) [address] [place] [address] Estradiolon 09-27-2024 E2 [Mass/Vol] pg/mL Normal [facility] Comment on above: Order Comment: REF V ALUES FOLLICULAR PHASE 20-144 MID CYCLE 64-357 LUTEAL PHASE 56-214 POSTMENOPAUSE < 32 PREPUBERTY < 20 FEMALE 10-18Y 8-110 MALE 10-18Y < 20 ADULT MALE < 40 Performed By: #### 2 243-4 #### MARIA E STEFFI (88286) [facility] ([facility]) [address] [place] [address] TERRENCE US PELVIS LIMITED FOLLIC LES-FOLLICLE STUDIES PERFORMEDon 09-27-2024 TERRENCE US PELVIS LIMITED FOLLICLES-FOLLICLE STUDIES PERFORMED Follicle scan performed with follicle measurements in report. and Trilaminar appearance to the endometrium is not noted. Normal [facility] HCG ( test) Ql (U)O rdered By: Sydney Grier on 08-14-2024 Preg Test, Ur Negative Negative [facility] No Panel InformationOrdered By: Sydney Grier on 08-14-2024 [facility] No Panel Informationon 08-14 Hilary Holder MD 08/14/2024 11:03 AM Hysteroscopy diagnostic Date/Time: 08/14/2024 11:02 AM Performed by: Hilary Holder MD Authorized by: Imelda Pollard MD Consent: Consent obtained: Verbal and written Consent given by: Patient Risks, benefits, and alternatives were discussed: yes Risks discussed: Bleeding, infection and pain [place] protocol: Procedure explained and questions answered to [...] diagnosis: fertility testing Post op diagnosis: Same Senior Controls Analyst: Fellow Anesthesia: None IV: None EBL: 3 [...] well, no immediate complications [facility] Placement Specialist Office Visit Reporton 07-12-2024 Placement Specialist Office Visit Report [facility] [address] [place] [address] OFFICE VISIT Date of Service: 07/12/24 MR#: [id number] Acct: [id number] Name: MARIXA AMOS Rep #: [id number] : 1995 Provider: DERRICK joshua Age/Sex: 29/F Location: [facility] Status: Signed Intake Vital Signs 06/29/24 12:57 07/12/24 08:25 07/12/24 08:32 Height 5 ft 3 in 5 ft 3 in 5 ft 3 in Weight: 182 lb 184 lb 4 oz BMI 32.2 32.6 BP 126/74 H 122/74 H Pulse 70 Intake Visit Reasons: fertility consult Chief Complaint: Fertility consult Regulatory Associate Required: No Is patient in pain?: No [...] 07/12/24 History mcg (2,500 unit) capsule omega 2-hbg-yey-fish oil 300 1 cap PO QDAY 07/12/24 07/12/24 History mg-1,000 mg capsule (Fish Oil) Is last menstrual period known: Yes Last Menstrual Period: 07/12/24 Post menopausal: No Patient : No : No PFSH Medical History (Updated 07/12/24 @ 10:30 by Jesika Farrar PERSONNEL RESEARCH PSYCHOLOGIST, PERSONNEL RESEARCH PSYCHOLOGIST-C) Endometriosis Low iron Anemia Latent tuberculosis Ulcerative [...] HSG with exp lap in 07/2023 at [facility] and told endometriosis. She failed letrozole and IUI at another provider. SA normal. She has appt in [place] 08/03 at for infertility discussion. She just [...] Date (if applicable) CC: Normal [facility] Placement Specialist Office Visit Reporton 06-29-2024 Placement Specialist Office Visit Report [facility] [address], [address] [place] [address] OFFICE VISIT Date of Service: 06/29/24 MR#: [id number] Acct: [id number] Name: MARIXA AMOS Rep #: [id number] : 1995 Provider: DERRICK Hyman Age/Sex: 28/F Location: [facility] Status: Signed Intake Vital Signs 06/01/24 09:21 06/29/24 12:57 Height 5 ft 3 in 5 ft 3 in Weight: 183 lb 2 oz 182 lb BMI 32.4 32.2 BP 139/76 H 126/74 H Pulse 83 70 Intake Visit Reasons: 4 WK WM Chief Complaint: med check Regulatory Associate Required: No Is patient in pain?: No [...] Nutrition plan: Balanced calorie restricted nutritional plan [id number] mario. Myfitnesspal tracking. (more content not included)... Normal [facility] PROGESTERONE 4317on 06-25-20 24 PROGESTERONE 0.3 ng/mL Normal . [facility] Comment on above: Order Comment: N day 21 lab Result Comment: Foll icular phase 0.1 - 0.9 Luteal phase 1.8 - 23.9 Ovulation phase 0.1 - 12.0 First trimester 11.0 - 44.3 Second trimester 25.4 - 83.3 Third trimester 58.7 - 214.0 Postmenopausal 0.0 - 0.1 Performed at: [facility] [id number] It Integration Architect: Almas Saavedra PhD, Phone: [phone] Performed By: #### L 801.2600 #### [facility] [address] [place], [place], [address] Comprehensive Metabolic Prof ilon 06-24-2024 Albumin [Mass/Vol] 3.9 g/dL Normal 3.2-5.0 [facility] Comment on above: Performed By: #### L 101.9900, L501.6710, L3410.9992, L100.0100, L500.4050 #### [facility] [address] [place], [address] Albumin/Globulin [Mass ratio] 1.1 {ratio} Normal 0.9-2.4 [facility] Comment on above: Performed By: #### L 101.9900, L501.6710, L3410.9992, L100.0100, L500.4050 #### [facility] [address] [place], [address] ALK P 59 U/L Normal 45-117 [facility] Comment on above: Performed By: #### L 101.9900, L501.6710, L3410.9992, L100.0100, L500.4050 #### [facility] [address] [place], [address] ALT [Catalytic activity/Vol] 32 U/L Normal 13-56 [facility] Comment on above: Performed By: #### L 101.9900, L501.6710, L3410.9992, L100.0100, L500.4050 #### [facility] [address] [place], [address] AST [Catalytic activity/Vol] 15 U/L Normal 15-37 [facility] Comment on above: Performed By: #### L 101.9900, L501.6710, L3410.9992, L100.0100, L500.4050 #### [facility] [address] [place], [address] Bilirubin [Mass/Vol] 0.40 mg/dL Normal 0.20-1.00 [facility] Comment on above: Result Comment: For patients on eltrombopag therapy, use of Dimension [place] TBIL is not recommended. Performed By: #### L 101.9900, L501.6710, L3410.9992, L100.0100, L500.4050 #### [facility] [address] [place], [address] BUN/CRE 15.6 RATIO Normal 10-20 [facility] Comment on above: Performed By: #### L 101.9900, L501.6710, L3410.9992, L100.0100, L500.4050 #### [facility] [address] [place], [address] CA,Total 9.4 mg/dL Normal 8.5-10.1 [facility] Comment on above: Performed By: #### L 101.9900, L501.6710, L3410.9992, L100.0100, L500.4050 #### [facility] [address] [place], [address] Chloride [Moles/Vol] 106 mmol/L Normal 98-107 [facility] Comment on above: Performed By: #### L 101.9900, L501.6710, L3410.9992, L100.0100, L500.4050 #### [facility] [address] [place], [address] CO2 [Moles/Vol] 26.0 mmol/L Normal 21.0-32.0 [facility] Comment on above: Performed By: #### L 101.9900, L501.6710, L3410.9992, L100.0100, L500.4050 #### [facility] [address] [place], [address] Creatinine [Mass/Vol] 0.71 mg/dL Normal 0.55-1.02 [facility] Comment on above: Result Comment: The validity of the calculated GFR GFRAA in patients over 70 years has not been determined. Clinical correlation is essential. Performed By: #### L 101.9900, L501.6710, L3410.9992, L100.0100, L500.4050 #### [facility] [address] [place], [address] EST GFR - AA 125 mL/min Normal >60 [facility] Comment on above: Result Comment: Afri can [place] GFR Calc Performed By: #### L 101.9900, L501.6710, L3410.9992, L100.0100, L500.4050 #### [facility] [address] [place], [address] GAP 4 Low 5-15 [facility] Comment on above: Performed By: #### L 101.9900, L501.6710, L3410.9992, L100.0100, L500.4050 #### [facility] [address] [place], [address] GFR/1.73 sq M.predicted among non-blacks MDRD (S/P/Bld) [Vol rate/Area] 103 mL/min/{1.73_m2} Normal >60 [facility] Comment on above: Result Comment: Non- GFR Calc Performed By: #### L 101.9900, L501.6710, L3410.9992, L100.0100, L500.4050 #### [facility] [address] [place], [address] Globulin (S) [Mass/Vol] 3.7 g/dL Normal 2.2-4.2 [facility] Comment on above: Performed By: #### L 101.9900, L501.6710, L3410.9992, L100.0100, L500.4050 #### [facility] [address] [place], [address] Glucose [Mass/Vol] 96 mg/dL Normal 74-106 [facility] Comment on above: Performed By: #### L 101.9900, L501.6710, L3410.9992, L100.0100, L500.4050 #### [facility] [address] [place], [address] Potassium [Moles/Vol] 4.1 mmol/L Normal 3.5-5.1 [facility] Comment on above: Performed By: #### L 101.9900, L501.6710, L3410.9992, L100.0100, L500.4050 #### [facility] [address] [place], [address] Sodium [Moles/Vol] 136 mmol/L Normal 136-145 [facility] Comment on above: Performed By: #### L 101.9900, L501.6710, L3410.9992, L100.0100, L500.4050 #### [facility] [address] [place], [address] T PROT 7.6 g/dL Normal 6.4-8.2 [facility] Comment on above: Performed By: #### L 101.9900, L501.6710, L3410.9992, L100.0100, L500.4050 #### [facility] [address] [place], [address] Urea nitrogen [Mass/Vol] 11 mg/dL Normal 7-18 [facility] Comment on above: Performed By: #### L 101.9900, L501.6710, L3410.9992, L100.0100, L500.4050 #### [facility] [address] [place], [address] Stool lactoferrin detection by immunoassayOrdered By: Domo [...] - CytologyOrdered By: Iesha Lo on 12-09-2023 Hat Forming Machine Feeder Cyto stain Nom (Cvx/Vag) [ID] Comment . [...] therefore, no HPV testing was performed.Performed at: [facility] Cyto [address] [place], [place] [id number] Director: Phi Yoder MD, Phone: [phone] at: [facility] Lab[address] [place] [id number] Director: Rose Haney MD, Phone: [phone] Thin prep Papanicolaou smear with manual screeningOrdered By: Iesha Lo on 12-09-2023 Thin prep Papanicolaou smear with manual screening Comment . [facility] Comment on above: NEGATIVE FOR INTRAEP ITHELIAL LESION OR MALIGNANCY. This liquid based Th inPrep(R) pap test was screened withthe use of an image guided system. PROGon 11-25-2023 Progesterone Level 6.0 ng/mL Normal Count includes the [facility] ([place]) Comment on above: Result Comment: Adul t Female Progesterone Reference Ranges: Follicular phase <0.21 - 1.40 ng/mL Luteal phase 3.34 - 25.56 ng/mL Mid-Luteal phase 4.44 - 28.03 ng/mL Postmenopausal <0.21 - 0.73 ng/ml Female: First trimester 11.22 - 90.00 ng/ml Second trimester 25.55 - 89.40 ng/ml Third trimester 48.40 - 422.50 ng/ml Performed By: #### P ROMEL #### [place] [address] Absolute lymphocyte countOrd ered By: Domo Weaver on 11-06-2023 Lymphocytes Auto (Unsp spec) [#/Vol] 1.91 10*3/uL 0.83-4.51 [facility] Automated lymphocyte count a s percentage of total leukocytesOrdered By: Domo Weaver on 11-06-2023 Lymphocytes/100 WBC Auto (Unsp spec) 37.4 % 19-41 [facility] Basophil percentageOrdered B y: Domo [...] Hospital WBC (Bld) [#/Vol] 5.1 10*3/uL 4.4-11.0 [facility] Determination of erythrocyte mean corpuscular volume [...] Hospital MCHC (RBC) [Mass/Vol] 33.3 g/dL 32-36 [facility] Nucleated RBC/100 WBC (Bld) [Ratio] 0 % 0-5 [facility] Platelet mean volume (Bld) [Entitic vol] 10.5 fL 6.2-12.0 [facility] Platelets (Bld) [#/Vol] 291 10*3/uL 150-450 [facility] No Panel InformationOrdered By: Domo Weaver on 11-06-2023 Miscellaneous Test See comment [facility] Comment on above: Scanned image report available in EMR RBC Auto (Bld) [#/Vol]Ordere d By: Domo Weaver on 11-06-2023 RBC (Bld) [#/Vol] 3.80 10*6/uL 4.2-5.4 [facility] - Chemistry and C hemistry - challengeOrdered By: Patrice Macias on 10-01-2023 HCG ( test) Ql (U) Negative [facility] Comment on above: Very dilute urine sp ecimens, as indicated by a low specificgravity, may not contain patient support representative levels of hCG. If is still suspected, a first morning urinespecimen should be collected 48 hours later and tested. LABORATORYOrdered By: Shira Juarez on 08-27-2023 HCG ( test) Ql Negative (08/27/23 10:05 AM) Normal AO Manual Urine SS test (u) int Not detected Invalid Interpretation Code AO Manual Urine SS PREGUon 08-27-2023 HCG ( test) Ql (U) Negative Normal [facility] ([place]) Comment on above: Performed By: #### P REGU #### [place] [address] test (u) int Not detected Invalid Interpretation Code [facility] ([place]) Comment on above: Performed By: #### P REGU #### [place] [address] No Panel InformationOrdered By: Domo Weaver on 08-07-2023 Stool Calprotectin 275 ug/g 0-120 [facility] Comment on above: Concentration Interp retation Follow-Up< 5 - 50 ug/g Normal None>50 -120 ug/g Borderline Re-evaluate in 4-6 weeks >120 ug/g Abnormal Repeat as clinically indicatedPerformed at: - [facility] [address] [id number] Director: Jose Claros MD, Phone: [phone] Stool lactoferrin detection by immunoassayOrdered By: Domo Weaver on 08-07-2023 Lactoferrin IA Ql (Stl) [facility] CIRANon 08-03-2023 Dil Dewey Viper Venom 35.1 seconds Normal 30.0-42.0 [facility] ([place]) Comment on above: Performed By: #### 5 44379, PROL #### [facility] [address] [place] [address] [place] Interpretation See Below Normal [facility] ([place]) Comment on above: Result Comment: No e vidence of lupus anticoagulant. Performed By: #### 5 64445, PROL #### [facility] [address] [place] [address] Platelet neutraliz. Negative Normal [facility] ([place]) Comment on above: Performed By: #### 5 87657, PROL #### [facility] [address] [place] [address] Erythrocyte sedimentation ra teOrdered By: Domo Weaver on 08-03-2023 ESR (Bld) [Velocity] 6 mm/h 0-30 [facility] No Panel InformationOrdered By: Domo Weaver on 08-03-2023 Miscellaneous Test See comment [facility] Comment on above: Scanned image [...] the productionof interferon gamma. Chemiluminescence immunoassaymethodologyPerformed at: [employer] [facility] [id number] Director: Almas Saavedra PhD, Phone: [phone] Jamie 08-02-2023 [place] [facility] 3.40 ng/mL Normal [facility] ([place]) Comment on above: Result Comment: For assays employing antibodies, the possibility exists for interference by heterophile antibodies in the samples.1 1.Tony Billingsley. Interferences in Immunoassays - still a threat. Clin. Chem. 2000; 46: 8206-9403. This test was developed and its performance characteristics determined by [employer]. It has not been cleared or approved by the Food and Drug Administration. Reference Range: Females 26 - 30y: 1.03 - 11.10 Median 4.20 AMH concentrations of >= 1.06 ng/mL is correlated with a better response to ovarian stimulation, produced more retrievable oocytes and higher odds of live according to Rodyer et al. Fertility and Sterility. 2010: 94:8676-7636. The current AMH test method correlates with [...] exclude an AMH-secreting ovarian tumor. Performed At: [facility] [address] [place] [id number] Felisa Umaña MD Ph:[phone] Performed By: #### 5 13982, PROL #### [place] [address] PROLon 07-30-2023 Prolactin 16.5 ng/mL Normal 2.0-30.0 [facility] ([place]) Comment on above: Performed By: #### 5 71704, PROL #### [place] [address] APTTon 07-29-2023 aPTT Coag (Bld) [Time] 33.5 s Normal 25.0-35.0 [facility] ([place]) Comment on above: Result Comment: For Heparin anticoagulation therapy, the recommended therapeutic range is: 54-77 seconds (APTT Correlation with Anti-Xa therapeutic range of 0.3-0.7 units/ml). PLEASE REFERENCE THE PHARMACY PROTOCOL FOR DOSING. Performed By: #### 5 20453, PROL #### [place] [address] Heparin dose (APTT) None Normal [facility] ([place]) Comment on above: Performed By: #### 5 21202, PROL #### [address] [address] .Auto Diffon 04-21-2023 Basophil, Absolute 0.0 10 3/mcL Normal 0.0-0.3 [facility] ([place]) Comment on above: Performed By: #### C BC, TSH, CMP, ANEU, ADIFF, LIPID, GFR #### [place] [address] Basophils/100 WBC (Bld) 0.5 % Normal 0.0-2.5 [facility] ([place]) Comment on above: Performed By: #### C BC, TSH, CMP, ANEU, ADIFF, LIPID, GFR #### [address] [address] Eosinophil, Absolute 0.1 10 3/mcL Normal 0.0-0.7 [facility] ([place]) Comment on above: Performed By: #### C BC, TSH, CMP, ANEU, ADIFF, LIPID, GFR #### [address] [address] Eosinophils/100 WBC (Bld) 1.8 % Normal 0.0-6.0 [facility] ([place]) Comment on above: Performed By: #### C BC, TSH, CMP, ANEU, ADIFF, LIPID, GFR #### [address] [address] Lymphocyte, Absolute 1.8 10 3/mcL Normal 0.9-4.3 [facility] ([place]) Comment on above: Performed By: #### C BC, TSH, CMP, ANEU, ADIFF, LIPID, GFR #### [address] [address] Lymphocytes/100 WBC (Bld) 28.6 % Normal 20.0-40.0 [facility] ([place]) Comment on above: Performed By: #### C BC, TSH, CMP, ANEU, ADIFF, LIPID, GFR #### [address] [address] Monocyte, Absolute 0.5 10 3/mcL Normal 0.1-1.4 [facility] ([place]) Comment on above: Performed By: #### C BC, TSH, CMP, ANEU, ADIFF, LIPID, GFR #### [address] [address] Monocytes/100 WBC (Bld) 7.4 % Normal 2.0-13.0 [facility] ([place]) Comment on above: Performed By: #### C BC, TSH, CMP, ANEU, ADIFF, LIPID, GFR #### [address] [address] Neutrophils/100 WBC (Bld) 61.7 % Normal 50.0-75.0 [facility] ([place]) Comment on above: Performed By: #### C BC, TSH, CMP, ANEU, ADIFF, LIPID, GFR #### [address] [address] .GFRon 04-21-2023 GFR >60 Normal [facility] ([place]) Comment on above: Result Comment: [...] mL/min/1.73 square meters Performed By: #### 5 02066, PROL #### [address] [address] GFR Non- >60 Normal [facility] ([place]) Comment on above: Result Comment: [...] mL/min/1.73 square meters Performed By: #### 5 57002, PROL #### [address] [address] .NEUABSon 04-21-2023 Neutrophil, Absolute 3.8 10 3/mcL Normal 2.3-8.1 [facility] ([place]) Comment on above: Performed By: #### C BC, TSH, CMP, ANEU, ADIFF, LIPID, GFR #### [address] [address] CBCon 04-21-2023 Erythrocyte distribution width (RBC) [Ratio] 12.5 % Normal 11.5-15.5 [facility] ([place]) Comment on above: Performed By: #### C BC, TSH, CMP, ANEU, ADIFF, LIPID, GFR #### [place] [address] Hematocrit (Bld) [Volume fraction] 36.4 % Normal 34.0-46.0 [facility] ([place]) Comment on above: Performed By: #### C BC, TSH, CMP, ANEU, ADIFF, LIPID, GFR #### [place] [address] Hgb 12.1 G/dL Normal 12.0-16.0 [facility] ([place]) Comment on above: Performed By: #### C BC, TSH, CMP, ANEU, ADIFF, LIPID, GFR #### [address] [address] MCH (RBC) [Entitic mass] 31.0 pg Normal 27.0-33.0 [facility] ([place]) Comment on above: Performed By: #### C BC, TSH, CMP, ANEU, ADIFF, LIPID, GFR #### [place] [id number] MCHC 33.4 G/dL Normal 32.0-36.0 [facility] ([place]) Comment on above: Performed By: #### C BC, TSH, CMP, ANEU, ADIFF, LIPID, GFR #### [place] [id number] MCV (RBC) [Entitic vol] 92.8 fL Normal 80.0-99.0 [facility] ([place]) Comment on above: Performed By: #### C BC, TSH, CMP, ANEU, ADIFF, LIPID, GFR #### [place] [id number] Platelet 298 10 3/mcL Normal 150-450 [facility] ([place]) Comment on above: Performed By: #### C BC, TSH, CMP, ANEU, ADIFF, LIPID, GFR #### [place] [id number] Platelet mean volume (Bld) [Entitic vol] 8.8 fL Normal 6.6-10.5 [facility] ([place]) Comment on above: Performed By: #### C BC, TSH, CMP, ANEU, ADIFF, LIPID, GFR #### [place] [id number] RBC 3.92 10 6/mcL Low 4.10-5.30 [facility] ([place]) Comment on above: Performed By: #### C BC, TSH, CMP, ANEU, ADIFF, LIPID, GFR #### [place] [address] WBC 6.2 10 3/mcL Normal 4.5-10.8 [facility] ([place]) Comment on above: Performed By: #### C BC, TSH, CMP, ANEU, ADIFF, LIPID, GFR #### [address] [address] CMPon 04-21-2023 Albumin Level 4.3 G/dL Normal 3.2-4.8 [facility] ([place]) Comment on above: Performed By: #### C BC, TSH, CMP, ANEU, ADIFF, LIPID, GFR #### [place] [id number] Albumin/Globulin [Mass ratio] 1.3 {ratio} Normal 0.9-1.6 [facility] ([place]) Comment on above: Performed By: #### C BC, TSH, CMP, ANEU, ADIFF, LIPID, GFR #### [place] [id number] ALP [Catalytic activity/Vol] 55 U/L Normal 38-126 [facility] ([place]) Comment on above: Performed By: #### C BC, TSH, CMP, ANEU, ADIFF, LIPID, GFR #### [place] [id number] ALT [Catalytic activity/Vol] 54 U/L High 10-49 [facility] ([place]) Comment on above: Performed By: #### C BC, TSH, CMP, ANEU, ADIFF, LIPID, GFR #### [address] [address] AST [Catalytic activity/Vol] 33 U/L Normal 8-34 [facility] ([place]) Comment on above: Performed By: #### C BC, TSH, CMP, ANEU, ADIFF, LIPID, GFR #### [address] [address] Bili Total 0.40 mg/dL Normal 0.20-1.20 [facility] ([place]) Comment on above: Result Comment: Use of this assay is not recommended for patients undergoing treatment with eltrombopag due to the potential for falsely elevated results. Performed By: #### C BC, TSH, CMP, ANEU, ADIFF, LIPID, GFR #### [address] [address] BUN/Creatinine Ratio 21.4 ratio Normal 10.0-22.0 [facility] ([place]) Comment on above: Performed By: #### C BC, TSH, CMP, ANEU, ADIFF, LIPID, GFR #### [address] [address] Calcium [Mass/Vol] 9.3 mg/dL Normal 8.7-10.4 Count includes the [facility] ([place]) Comment on above: Performed By: #### C BC, TSH, CMP, ANEU, ADIFF, LIPID, GFR #### [address] [address] Chloride [Moles/Vol] 105 mmol/L Normal 98-110 [facility] ([place]) Comment on above: Performed By: #### C BC, TSH, CMP, ANEU, ADIFF, LIPID, GFR #### [address] [address] CO2 [Moles/Vol] 28 mmol/L Normal 22-32 [facility] ([place]) Comment on above: Performed By: #### C BC, TSH, CMP, ANEU, ADIFF, LIPID, GFR #### [address] [address] Creatinine [Mass/Vol] 0.56 mg/dL Normal 0.50-1.20 [facility] ([place]) Comment on above: Performed By: #### C BC, TSH, CMP, ANEU, ADIFF, LIPID, GFR #### [address] [address] Electrolyte Balance 6.0 mEq/L Normal 4.0-15.0 [facility] ([place]) Comment on above: Performed By: #### C BC, TSH, CMP, ANEU, ADIFF, LIPID, GFR #### [address] [address] Globulin 3.2 G/dL Normal 1.5-3.8 [facility] ([place]) Comment on above: Performed By: #### C BC, TSH, CMP, ANEU, ADIFF, LIPID, GFR #### [address] [address] Glucose [Mass/Vol] 99 mg/dL Normal 70-110 Count includes the [facility] ([place]) Comment on above: Performed By: #### C BC, TSH, CMP, ANEU, ADIFF, LIPID, GFR #### [address] [address] Potassium [Moles/Vol] 4.6 mmol/L Normal 3.5-5.0 [facility] ([place]) Comment on above: Result Comment: Spec imen slightly hemolyzed. Performed By: #### C BC, TSH, CMP, ANEU, ADIFF, LIPID, GFR #### [address] [address] Sodium [Moles/Vol] 139 mmol/L Normal 136-145 Count includes the [facility] ([place]) Comment on above: Performed By: #### C BC, TSH, CMP, ANEU, ADIFF, LIPID, GFR #### [address] [address] Total Protein 7.5 G/dL Normal 5.7-8.2 [facility] ([place]) Comment on above: Result Comment: No te - New Reference Range in effect 20 Performed By: #### C BC, TSH, CMP, ANEU, ADIFF, LIPID, GFR #### [address] [address] Urea nitrogen [Mass/Vol] 12.0 mg/dL Normal 8.0-22.0 [facility] ([place]) Comment on above: Performed By: #### C BC, TSH, CMP, ANEU, ADIFF, LIPID, GFR #### [address] [address] LIPIDon 04-21-2023 Cholesterol [Mass/Vol] 183 mg/dL Normal 50-199 [facility] ([place]) Comment on above: Result Comment: Chol esterol Reference Interval: Less than 200 Desirable 200-239 Borderline high risk 240 and above High risk Performed By: #### 5 [address]36[address], PROL #### [place] [address] Cholesterol in HDL [Mass/Vol] 53 mg/dL Normal 40-59 [facility] ([place]) Comment on above: Performed By: #### 5 [address]998, PROL #### [place] [address] Cholesterol in LDL [Mass/Vol] 104 mg/dL Normal 0-129 [facility] ([place]) Comment on above: Performed By: #### 5 32031, PROL #### [place] [address] Triglyceride [Mass/Vol] 131 mg/dL Normal 3-149 [facility] ([place]) Comment on above: Performed By: #### 5 23053, PROL #### [place] [address] TSHon 04-21-2023 TSH 0.952 mIU/mL Normal 0.550-4.780 [facility] ([place]) Comment on above: Result Comment: No te - New Reference Range in effect 20 Performed By: #### 5 82946, PROL #### [place] [id number] 36on 04-09-2023 36 Name of caller: HEAT HER Relation to patient: patient Contact phone number: [phone] Appointment scheduled with: LANDY BLAIR Appointment date & time: 05/04/23 @ 7:50 AM Reason for visit (are you having any symptoms) : Low blood pressure, unexpected weight gain Transportation issues/ concerns: NO Special accommodations? ( wheel chair, etc) : NO Current medications: STELARA Any refills need: NO Any chronic conditions the provider should be aware of: CHRON'S, 14 WEEKS Normal [facility] 36 In order to comply w ith the No Surprises Act, [facility] is providing you with the following attachments. Any Good Cathy Estimate that may be provided are based on the services you are scheduled to receive. During your visit, there may be additional services required in order for the provider to complete your plan of care. DECLINED Normal [facility] 36on 04-05-2023 36 PATIENT SUBMITTED ON LINE APPOINTMENT REQUEST FOR A PCP APPOINTMENT. SPOKE TO PATIENT AND GOT SOME INFORMATION BUT SHE HAD TO GET OFF THE LINE AND STATES SHE WILL C/B. OK TO SCHEDULE WITH ANY PROVIDER WHEN PATIENT CALLS BACK. FirstName : Marixa LastName : OMI Pronouns : PronounsOther : Email : [email or web address] Phone : [phone] Birthdate : 1995 12:00:00 AM BestTimeToCallBack : Afternoon AppointmentDate : Kirk PhysicianRequested : Symptoms : Weight gain, low blood pressure OptIn : False Normal [facility] Absolute lymphocyte counton 03-05-2022 Lymphocytes Auto (Unsp spec) [#/Vol] 2.37 10*3/uL 0.83-4.51 [facility] Work Phone: Albumin Elph [Mass/Vol]on Albumin [Mass/Vol] 4.1 g/dL 2.9-4.4 [facility] Work Phone: Atypical perinuclear antineu trophil cytoplasmic antibodies measurementon 03-05-2022 Neutrophil cytoplasmic Ab.perinuclear.atypica l IF (S) [Titer] 1:160 titer Neg:<1:20 [facility] Work Phone: Comment on above: The atypical pANCA p attern has been observed in asignificant percentage of patients with ulcerative colitis,primary sclerosing cholangitis and autoimmune hepatitis. Basophil percentageon 2021 Basophil percentage < 0.2 AI 0.0-0.9 [facility] Work Phone: Basophils/100 WBC (Bld) 0.6 % 0-1 [facility] Work Phone: Bilirubin [Mass/Vol] 0.30 mg/dL 0.20-1.00 [facility] Work Phone: Comment on above: For patients on eltr ombopag therapy, use of Dimension [place] TBIL is not recommended. Chloride [Moles/Vol] 105 mmol/L 98-107 [facility] Work Phone: Eosinophils/100 WBC (Bld) 1.4 % 0-5 [facility] Work Phone: Glucose [Mass/Vol] 90 mg/dL 74-106 [facility] Work Phone: Neutrophils (Bld) [#/Vol] 3.5 10*3/uL 2.0-7.7 [facility] Work Phone: Neutrophils/100 WBC (Bld) 53.6 % 47-70 [facility] Work Phone: Potassium [Moles/Vol] 3.8 mmol/L 3.5-5.1 [facility] Work Phone: Protein [Mass/Vol] 7.5 g/dL 6.4-8.2 [facility] Work Phone: Sodium [Moles/Vol] 136 mmol/L 136-145 [facility] Work Phone: WBC (Bld) [#/Vol] 6.4 10*3/uL 4.4-11.0 [facility] Work Phone: Blood erythrocytes count (nu mber/volume)on 03-05-2022 RBC (Bld) [#/Vol] 3.69 10*6/uL 4.2-5.4 [facility] Work Phone: Blood hemoglobin measurement [...] 03-05-2022 ESR (Bld) [Velocity] 13 mm/h 0-30 [facility] Work Phone: Hematocrit Auto (Bld) [Volum e fraction]on 03-05-2022 Hematocrit (Bld) [Volume fraction] 34.0 % 37-47 [facility] Work Phone: Interpretation of serum or p lasma protein pattern by immunofixation (narrative resulton 03-05-2022 Protein Fractions Immunofixation Jesús [Interp] See comment [facility] Work Phone: Comment on above: Result: Not Observed Laboratory - Chemistry and C hemistry - challengeon 03-05-2022 ALP [Catalytic activity/Vol] 48 U/L 45-117 [facility] Work Phone: ALT [Catalytic activity/Vol] 39 U/L 13-56 [facility] Work Phone: CO2 [Moles/Vol] 25.0 mmol/L 21.0-32.0 [facility] Work Phone: Globulin (S) [Mass/Vol] 3.6 g/dL 2.2-4.2 [facility] Work Phone: [phone] Urea nitrogen/Creatinine [Mass ratio] 34.1 mg/mg 10-20 [facility] Work Phone: [phone] Laboratory - Hematology and Cell countson 03-05-2022 Erythrocyte distribution width (RBC) [Entitic vol] 41.1 fL 35.1-43.9 [facility] Work Phone: [phone] Erythrocyte distribution width (RBC) [Ratio] 12.0 % 11.6-14.6 [facility] Work Phone: [phone] Immature granulocytes/100 WBC (Bld) 0.200 % 0.0-0.9 [facility] Work Phone: [phone] Comment on above: IG% - Immature Granu locytes (promyelocytes, myelocytes and metamyelocytes) > 1% indicates that a LEFT SHIFT is Present. MCH (RBC) [Entitic mass] 30.4 pg 27.0-32.0 [facility] Work Phone: [phone] Nucleated RBC/100 WBC (Bld) [Ratio] 0 % 0-5 [facility] Work Phone: [phone] MCHC Auto (RBC) [Mass/Vol]on 03-05-2022 MCHC (RBC) [Mass/Vol] 32.9 g/dL 32-36 [facility] Work Phone: [phone] Panel Informationon 03-05 Addendum Document Comment . [facility] Work Phone: [phone] Comment on above: Protein electrophore sis scan will follow via computer,mail, or general assembler installer delivery. Centromere B Antibody <0.2 AI 0.0-0.9 [facility] Work Phone: [phone] Endomysial IgA Antibody Negative Negative [facility] Work Phone: [phone] Estimated GFR (MDRD) Amer 167 mL/min >60 [facility] Work Phone: [phone] Comment on above: GFR Calc Estimated GFR (MDRD) Non-Af Amer 138 mL/min >60 [facility] Work Phone: [phone] Comment on above: Non- GFR Calc Immunoglobulin E 42 IU/mL 6-495 [facility] Work Phone: NURSES SUPERVISOR Antibody <0.2 AI 0.0-0.9 [facility] Work [...] AI 0.0-0.9 [facility] Work Phone: Serum alovo-9-tvhcgrqf measu rement by electrophoresison 03-05-2022 Alpha 1 globulin Elph [Mass/Vol] 0.2 g/dL 0.0-0.4 [facility] Work Phone: Alpha 1 globulin Elph [Mass/Vol] 0.7 g/dL 0.4-1.0 [facility] Work Phone: [phone] Serum classic neutrophil cyt oplasmic antibody assay (units/volume)on 03-05-2022 Neutrophil cytoplasmic Ab.classic Qn (S) <1:20 titer Neg:<1:20 [facility] Work Phone: [phone] Serum globulin measurement ( mass/volume)on 03-05-2022 Globulin [...] 1132 mg/dL 586-1602 [facility] Work Phone: [phone] Serum or plasma IgM measurem ent (mass/volume)on 03-05-2022 IgM [Mass/Vol] 109 mg/dL 26-217 [facility] Work Phone: Serum or plasma albumin arielle urement (mass/volume)on 03-05-2022 Albumin [Mass/Vol] 3.9 g/dL 3.2-5.0 [facility] Work Phone: [phone] Serum or plasma albumin/glob ulin mass ratioon 03-05-2022 Albumin/Globulin [Mass ratio] 1.1 {ratio} 0.9-2.4 [facility] Work Phone: [phone] Serum or plasma beta globuli n measurement by electrophoresis (mass/volume)on 03-05-2022 Beta globulin Elph [Mass/Vol] 1.1 g/dL 0.7-1.3 [facility] Work Phone: Serum or plasma calcium arielle urement (mass/volume)on 03-05-2022 Calcium [Mass/Vol] 8.8 mg/dL 8.5-10.1 [facility] Work Phone: Serum or plasma creatinine m easurement (mass/volume)on 03-05-2022 Creatinine [Mass/Vol] 0.56 mg/dL 0.55-1.02 [facility] Work Phone: Comment on above: The [...] acuteinfection, reactivation or persistent IgM production.Performed at: [employer] [facility] [id number] Director: Almas Saavedra PhD, Phone: [phone] at: [facility] [id number] Director: Jose Claros MD, Phone: [phone] Serum or plasma gamma globul in measurement [...] up testing of positive sera with both SC-3 and MPO-ANCA enzyme immunoassays. As many as 5% serumsamples are positive only by EIA. Ref. AM J Clin [id number];111:507-513. Serum tissue transglutaminas e IgA antibody assay [...] 24 U/L 15-37 [facility] Work Phone: [phone] Thin prep Papanicolaou smear with manual screening 6 5-15 [facility] Work Phone: [phone] Thin prep Papanicolaou smear with manual screening 150 U/L 84-246 [facility] Work Phone: [phone] Thin prep Papanicolaou smear with manual screening 1.4 0.7-1.7 [facility] Work Phone: Total protein bloodon 2021 Protein [Mass/Vol] 7.2 g/dL 6.0-8.5 [facility] Work Phone: [phone] Panel Informationon 03-25 -2022 Stool Calprotectin 61 ug/g 0-120 [facility] Work Phone: Comment on above: Concentration Interp retation Follow-Up<16 - 50 ug/g Normal None>50 -120 ug/g Borderline Re-evaluate in 4-6 weeks >120 ug/g Abnormal Repeat as clinically indicatedPerformed at: [employer] [address] [id number] Director: Jose Claros MD, Phone: [phone] HIV 1 and HIV-2 antibody ass ay with HIV-1 p24 antigen detectionon 11-20-2021 HIV 1+2 Ab+HIV1 p24 Ag IA Ql Non-Reactive Nonreactive [facility] Work Phone: No Panel Informationon 11-20 Bordetella pertussis IgG Antibody 1.92 index 0.00-0.94 [facility] Work Phone: Comment on above: Negative <0.95 Equiv ocal 0.95 - 1.04 Positive >1.04Performed at: [facility] [employer] [id number] Director: Almas Saavedra PhD, Phone: [phone] at: [facility] [employer] [address] [id number] Director: Jose Claros MD, Phone: [phone] Hepatitis A IgM Antibody Negative Negative [facility] [...] with a HCV Nucleic Acid Amplification test (532599).Effective December 29, 2021 Hepatitis Panel (4) will be made non-orderable. [employer] offers order code [id number] Acute Hepatitis. Rubella IgG Antibody Reactive Nonreactive [facility] Work Phone: Comment on above: Antibody [...] IA Qn (S) 314 index Immune >165 [facility] Work Phone: [phone] Comment on above: Negative <135 Equivo mario 135 - 165 Positive >165A positive result generally indicates exposure to thepathogen or administration of specific immunoglobulins,but it is not indication of active infection or stageof disease. Serum mumps virus IgM antibo dy assay (units/volume)on 11-20-2021 MuV IgM Qn (S) < 0.80 AU 0.00-0.79 [facility] Work Phone: [phone] Comment on above: Negative < 0.80 Bord giovani 0.80 - 1.20 Positive > 1.20Note: The presence of IgM specific antibody should beinterpreted in conjunction with the patient's clinicalhistory and exposure risk when an acute infection issuspected. Serum or plasma hepatitis B virus surface antigen detection by immunoassayon 11-20-2021 HBV surface Ag IA Ql Negative Negative [facility] Work Phone: Thin prep Papanicolaou smear with manual screeningon 11-20-2021 Thin prep Papanicolaou smear with manual screening Comment . [facility] Work Phone: [phone] Comment on above: The QuantiFERON-TB G old Plus result is determined bysubtracting the Nil value from either TB antigen (Ag) tube.The mitogen tube serves as a control for the test. Thin prep Papanicolaou smear with manual screening 0.44 IU/mL . [facility] Work Phone: [phone] Thin prep Papanicolaou smear with manual screening 0.08 IU/mL . [facility] Work Phone: [phone] prep Papanicolaou smear with manual screening [...] percentageon 2020 Bilirubin [Mass/Vol] 0.20 mg/dL 0.20-1.00 [facility] Work Phone: Comment on above: For patients on eltr ombopag therapy, use of Dimension [place] TBIL is not recommended. Chloride [Moles/Vol] 106 mmol/L 98-107 [facility] Work Phone: Eosinophils/100 WBC (Bld) 1.7 % 0-5 [facility] Work Phone: Glucose [Mass/Vol] 104 mg/dL 74-106 [facility] Work Phone: Comment on above: Fasting Glucose resu lt from 100 to 125 mg/dL suggests IMPAIRED HOMEOSTASIS per A.D.A. criteria.Please note revised GLUCOSE reference range effective 2017. Neutrophils (Bld) [#/Vol] 2.9 10*3/uL 2.0-7.7 [facility] Work Phone: Potassium [Moles/Vol] 3.8 mmol/L 3.5-5.1 [facility] Work Phone: [phone] Protein [Mass/Vol] 7.9 g/dL 6.4-8.2 [facility] Work Phone: Sodium [Moles/Vol] 136 mmol/L 136-145 [facility] Work Phone: [phone] WBC (Bld) [#/Vol] 6.0 10*3/uL 4.4-11.0 [facility] Work Phone: [phone] Blood erythrocytes count (nu mber/volume)on 07-28-2021 RBC (Bld) [#/Vol] 3.79 10*6/uL 4.2-5.4 [facility] Work Phone: [phone] Blood hemoglobin measurement (mass/volume)on 07-28-2021 Hemoglobin (Bld) [Mass/Vol] 11.7 g/dL 12.0-15.0 [facility] Work Phone: [phone] Blood lymphocytes/100 leukoc yteson 07-28-2021 Lymphocytes/100 WBC (Bld) 42.2 % 19-41 [facility] Work Phone: [phone] Blood monocytes/100 leukocyt eson 07-28-2021 Monocytes/100 WBC (Bld) 6.8 % 0-10 [facility] Work Phone: [phone] Blood platelet mean volumeon 07-28-2021 Platelet mean volume (Bld) [Entitic vol] 11.0 fL 6.2-12.0 [facility] Work Phone: [phone] Determination of erythrocyte mean corpuscular volume (MCV)on 07-28-2021 MCV (RBC) [Entitic vol] 92.1 fL 81-99 [facility] Work Phone: [phone] Erythrocyte sedimentation ra kushal 07-28-2021 ESR (Bld) [Velocity] 22 mm/h 0-30 [facility] Work Phone: [phone] Hematocrit Auto (Bld) [Volum e fraction]on 07-28-2021 Hematocrit (Bld) [Volume fraction] 34.9 % 37-47 [facility] Work Phone: [phone] Laboratory - Chemistry and C hemistry - challengeon 07-28-2021 ALP [Catalytic activity/Vol] 42 U/L 45-117 [facility] Work Phone: [phone] ALT [Catalytic activity/Vol] 76 U/L 13-56 [facility] Work Phone: [phone] CO2 [Moles/Vol] 24.0 mmol/L 21.0-32.0 [facility] Work Phone: [phone] Globulin (S) [Mass/Vol] 4.0 g/dL 2.2-4.2 [facility] Work Phone: [phone] Urea nitrogen/Creatinine [Mass ratio] 22.3 mg/mg 10-20 [facility] Work Phone: [phone] Laboratory - Hematology and Cell countson 07-28-2021 Basophils/100 WBC (Unsp spec) 0.7 % 0-1 [facility] Work Phone: [phone] Erythrocyte distribution width (RBC) [Entitic vol] 41.0 fL 35.1-43.9 [facility] Work Phone: [phone] Erythrocyte distribution width (RBC) [Ratio] 12.0 % 11.6-14.6 [facility] Work Phone: [phone] Immature granulocytes/100 WBC (Bld) 0.200 % 0.0-0.9 [facility] Work Phone: [phone] Comment on above: IG% - Immature Granu locytes (promyelocytes, myelocytes and metamyelocytes) > 1% indicates that a LEFT SHIFT is Present. MCH (RBC) [Entitic mass] 30.9 pg 27.0-32.0 [facility] Work Phone: [phone] Neutrophils/100 WBC (Bld) 48.4 % 47-70 [facility] Work Phone: [phone] Nucleated RBC/100 WBC (Bld) [Ratio] 0 % 0-5 [facility] Work Phone: [phone] MCHC Auto (RBC) [Mass/Vol]on 07-28-2021 MCHC (RBC) [Mass/Vol] 33.5 g/dL 32-36 [facility] Work Phone: [phone] Panel Informationon 07-28 Estimated GFR (MDRD) Amer 146 mL/min >60 [facility] Work Phone: Comment on above: GFR Calc Estimated GFR (MDRD) Non-Af Amer 121 mL/min >60 [facility] Work Phone: Comment on above: Non- GFR Calc Miscellaneous Test See comment [facility] Work Phone: Comment on [...] (mass/volume)on 07-28-2021 Albumin [Mass/Vol] 3.9 g/dL 3.2-5.0 [facility] Work Phone: Serum or plasma albumin/glob ulin mass ratioon 07-28-2021 Albumin/Globulin [Mass ratio] 1.0 {ratio} 0.9-2.4 [facility] Work Phone: Serum or plasma calcium arielle urement (mass/volume)on 07-28-2021 Calcium [Mass/Vol] 9.0 mg/dL 8.5-10.1 [facility] Work Phone: Serum or plasma creatinine m easurement (mass/volume)on 07-28-2021 Creatinine [Mass/Vol] 0.63 mg/dL 0.55-1.02 [facility] Work Phone: Comment on above: The [...] Office Visit ([place] ) -------- MARIXA GAY ([id number]) 1995 F T Date Time Provider Department [...] (HUMIRA) 40 mg/0.4 mL sykt 0.4 mL. mv,iron,iwq-IV-cippsjv cmb.24 400 mcg tab mv,iron,deu-CQ-bvtenrg supplement comb. no.24 400 mcg tablet Take [...] file Gets together: Not on file Attends adventism service: Not on file Active member of [...] [J02.9] Cough [R05] Order(s):RAPID STREP TEST B/O [3357177] Order #: [id number] XR CHEST 2V FRONTAL/LAT [0636522] Order #: [id number] FUTURE GROUP A STREPTOCOCCUS BY PCR [SQGASPCR] Order #: [id number] benzonatate (TESSALON PERLE) 100 mg capsuleTake 1 capsule by mouth three times daily as needed.Disp: 30 capsuleRfl: 0 Prescriptions as of 06/30/2019 Sig: OMEPRAZOLE 20 MG DELAYED RELE* Take 20 mg by mouth once avis* ADALIMUMAB 40 MG/0.4 ML SUBCU* 0.4 mL. MV,IRON,IPN-VI-YXKUMXO SUPPLE* mv,iron,kcc-YI-pdmmtdt supple* BENZONATATE 100 MG CAPSULE Take 1 [...] Status:Closed by HENRIETTA AZUL on 06/30/19 Normal [facility] Group A Strep by PCRon 06-30 GAS Specimen Source Throat Swab Normal [facility] Comment on above: Performed By: #### G ASPCR #### [facility] [address] [place] [address] Group A Strep PCR Negative Normal [facility] Comment on above: Result Comment: This test was developed and its performance characteristics determined by [facility]'s [facility] Gord[facility] ( [facility]). It has not been cleared or approved by the FDA. [facility] is regulated under CLIA as qualified to perform high complexity testing. This test is used for clinical purposes. It should not be regarded as investigational or for research. Performed By: #### G ASPCR #### [facility] [address] [place] [id number] PROGRESSon 06-30-2019 PROGRESS HNO ID: [id number] Author: Alexandra Chau Service: ? Author Type: [...] Chau June 30, 2019 3:39 PM Normal [facility] PROGRESS HNO ID: [id number] Author: Henrietta Anderson) HAYDEE Azul Service: ? Author Type: Physician Senior Controls Analyst Type: Progress Notes Filed: 06/30/2019 2:51 PM [...] (HUMIRA) 40 mg/0.4 mL sykt 0.4 mL. mv,iron,tuu-LG-cimtnki cmb.24 400 mcg tab mv,iron,cbt-GL-qjmgpqb supplement comb. no.24 400 mcg tablet Take [...] file Gets together: Not on file Attends adventism service: Not on file Active member of [...] plan of care. Henrietta Azul PA-C Normal [facility] XR CHEST 2V FRONTAL/LATon XR [...] spine noted. IMPRESSION: No acute radiographic abnormality. Burglar Alarm Inspector: PSCB Transcribe Date/Time: Jun 30 2019 3:57P Dictated by : BEATRIS TRAN MD This examination was interpreted and the report reviewed and electronically signed by: BEATRIS TRAN MD on Jun 30 2019 3:57PM EST [id number] Normal [facility] CNOVon 08-04-2018 CNOV Office Visit ([place] ) -------- MARIXA GAY ([id number]) 1995 F CHT Date Time Provider Department 08/04/18 4:20 PM OLDER, SHIRLEY (RANDALL) INTMWS During your visit today, we recorded the following information about you: Temperature Pulse Blood pressure Weight 98.2 degrees 64/minute 120/66 71.2 kg Shirley Older, PLAN COORDINATOR.RANDALL 08/05/2018 8:35 AM Signed CC bloody stools, history of ulcerative colitis HPI Marixa Gay is a 23 year old female who presents with bloody diarrhea and fever. DIARRHEA:[id number]} occuring 7 to 8 stools/day on average. [...] Prozac [Fluoxetine Hcl]; Zoloft [Sertraline Hcl] MEDICATIONS mv,iron,wva-JN-lzfzajh cmb.24 400 mcg tab mv,iron,brg-XF-hhzdbse supplement comb. no.24 400 mcg tablet Take [...] no evidence of dehydration. Patient lives in [place], here visiting family. She had notified her hand trucker DR. Xenia Santana of current symptoms, he advised her to be evaluated in primary care. Called and spoke with Dr. Santana. Concerned about possible sepsis or C-diff. Recommended laboratory evaluation with: - CBC + DIFF - COMP METABOLIC PANEL - BLOOD CULTURE DRAW - BLOOD CULTURE DRAW - ENTERIC BACTERIAL PANEL BY PCR - C. DIFFICILE PCR - URINE CULTURE Orders sent to [facility], insurance will only cover their [...] Patient agreeable to treatment plan Shirley Szymanski APRN.APPLICATOR SPRAYER Referring Provider: XENIA SANTANA [[id number]] Allergies As of Date: 08/04/2018 Noted Allergy Reaction PROZAC (FLUOXETINE HCL) 05/30/2015 2 - Rash Comments: Also, not effective ZOLOFT (SERTRALINE HCL) 05/30/2015 2 - Rash Date Reviewed: 08/04/2018 Reviewed by: Ebonie Lopez Outside Machinist Helper - Fully Assessed Primary Visit Diagnosis:Fever, unspecified fever cause [R50.9] Other Visit Diagnoses:Bloody diarrhea [R19.7] 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 DIFFICILE PCR [SQCDPCR] Order #: [id number] URINE CULTURE [SQURCUL] Order #: [id number] FUTURE Prescriptions as of 08/04/2018 Sig: AMOXICILLIN 875 MG TABLET Take 1 tablet by mouth twice * MV,IRON,RMT-LO-QJLYFLR SUPPLE* mv,iron,hdd-XP-mtiihfs supple* ADALIMUMAB 40 MG/0.4 ML SUBCU* 0.4 mL. PREDNISONE 20 MG TABLET Take 20 mg by mouth once avis* Problem List As Of Date 08/04/2018 Noted Resolved Depressive disorder [F32.9] INVALID FOR* Diarrhea [R19.7] INVALID FOR* Iron deficiency anemia [D50.9] INVALID FOR* Left sided colitis (HCC) [K51.50] INVALID FOR* Encounter Status:Closed by SHIRLEY SZYMANSKI CNP on 08/05/18 [facility] PROGRESSon 08-04-2018 PROGRESS HNO ID: [id number] Author: Shirley Oh) Stephon Service: (none) Author Type: Nurse Practitioner Type: Progress Notes Filed: 08/05/2018 8:35 AM Note Text: CC bloody stools, history of ulcerative colitis HPI Marixa Gay is a 23 year old female who presents with bloody diarrhea and fever. DIARRHEA:[id number]} occuring 7 to 8 stools/day on average. [...] Prozac [Fluoxetine Hcl]; Zoloft [Sertraline Hcl] MEDICATIONS mv,iron,oyg-QH-czpclnq cmb.24 400 mcg tab mv,iron,swy-LB-srntwed supplement comb. no.24 400 mcg tablet Take [...] no evidence of dehydration. Patient lives in [place], here visiting family. She had notified her hand trucker DR. Xenia Santana of current symptoms, he advised her to be evaluated in primary care. Called and spoke with Dr. Santana. Concerned about possible sepsis or C-diff. Recommended laboratory evaluation with: - CBC + DIFF - COMP METABOLIC PANEL - BLOOD CULTURE DRAW - BLOOD CULTURE DRAW - ENTERIC BACTERIAL PANEL BY PCR - C. DIFFICILE PCR - URINE CULTURE Orders sent to [facility], insurance will only cover their [...] Patient agreeable to treatment plan Shirley Szymanski APRN.APPLICATOR SPRAYER [facility] CNOVon 07-29-2018 CNOV Office Visit ([facility] ) -------- MARIXA GAY ([id number]) 1995 [address] [facility] Date Time Provider Department 07/29/18 10:45 AM ROLF GRUBER [facility] During your visit today, we recorded the following information about you: Temperature Pulse Respiration Blood pressure 99.2 degrees 96/minute 16/minute 102/70 Weight 73.3 kg Rolf Gruber MD 07/29/2018 11:11 AM Signed Patient presents with: Sinusitis: x 4 days HPI: Feeling sick for 4 days. Visiting from [place]. Positive symptoms: Sore throat, Sinus pressure, Fever [...] (HUMIRA) 40 mg/0.4 mL sykt 0.4 mL. mv,iron,wgh-CG-rhpzkrs cmb.24 400 mcg tab mv,iron,rlr-YT-eersyey supplement comb. no.24 400 mcg tablet Take [...] ADALIMUMAB 40 MG/0.4 ML SUBCU* 0.4 mL. MV,IRON,JHN-TQ-NOQRCRB SUPPLE* mv,iron,fhy-NT-pytoyja supple* PREDNISONE 20 MG TABLET Take 20 [...] Status:Closed by ROLF GRUBER MD on 07/29/18 [facility] PROGRESSon 07-29-2018 PROGRESS HNO ID: [id number] Author: Rolf Gruber Service: (none) Author Type: Physician Type: Progress Notes Filed: 07/29/2018 11:11 AM Note Text: Patient presents with: Sinusitis: x 4 days HPI: Feeling sick for 4 days. Visiting from [place]. Positive symptoms: Sore throat, Sinus pressure, Fever [...] (HUMIRA) 40 mg/0.4 mL sykt 0.4 mL. mv,iron,lud-RB-xxaazjj cmb.24 400 mcg tab mv,iron,opi-RQ-qakolca supplement comb. no.24 400 mcg tablet Take [...] persist >5 days. Rolf Gruber MD [facility] Vital Signs Date Time Vital Sign Value Performing Clinician Facility 06-01-2025 14:47-0400 Body height 160.[address] Catrachito Mercedes MD Work Phone: [facility] 06-01-2025 14:44-0400 Body mass index (BMI) [Ratio] 36.5 kg/m2 Dr. Catrachito Mercedes MD Work Phone: [facility] 06-01-2025 14:44-0400 Body weight 93.[address] Catrachito Mercedes MD Work Phone: [facility] 06-01-2025 14:44-0400 Diastolic blood pressure 78 mm[Hg] Dr. Catrachito Mercedes MD Work Phone: [facility] 06-01-2025 14:44-0400 Systolic blood pressure 127 mm[Hg] Dr. Catrachito Mercedes MD Work Phone: 6(967)215-890429 [place] [address] 05-21-2025 15:12-0400 Body height 160.[address] Catrachito Mercedes MD Work Phone: 5(298)279-027041 [place] [address] 05-21-2025 15:12-0400 Body mass index (BMI) [Ratio] 36.1 kg/m2 Dr. Catrachito Mercedes MD Work Phone: 7(489)990-318841 [place] [address] 05-21-2025 15:12-0400 Body temperature 97.7 [degF] Dr. Catrachito Mercedes MD Work Phone: 3(873)512-482741 [place] [address] 05-21-2025 15:12-0400 Body weight 92.[address] Catrachito Mercedes MD Work Phone: 7(643)505-580741 [place] [address] 05-21-2025 15:12-0400 Diastolic blood pressure 80 mm[Hg] Dr. Catrachito Mercedes MD Work Phone: 2(032)865-170541 [place] [address] 05-21-2025 15:12-0400 Heart rate 87 /min Dr. Catrachito Mercedes MD Work Phone: 1(098)445-986941 [place] [address] 05-21-2025 15:12-0400 Respiratory rate 16 /min Dr. Catrachito Mercedes MD Work Phone: 1(864)806-815041 [place] [address] 05-21-2025 15:12-0400 SaO2% (BldA) [Mass fraction] 98 % Dr. Catrachito Mercedes MD Work Phone: 0(611)512-235041 [place] [address] 05-21-2025 15:12-0400 Systolic blood pressure 125 mm[Hg] Dr. Catrachito Mercedes MD Work Phone: 2(080)604-898841 [place] [address] 05-11-2025 13:52-0400 Body height 160.[address] Catrachito Mercedes MD Work Phone: 8(023)380-219441 [place] [address] 05-11-2025 13:52-0400 Body mass index (BMI) [Ratio] 35.6 kg/m2 Dr. Catrachito Mercedes MD Work Phone: 8(364)013-063841 [place] [address] 05-11-2025 13:52-0400 Body weight 91.[address] Catrachito Mercedes MD Work Phone: 7(174)094-334041 [place] [address] 05-11-2025 13:52-0400 Diastolic blood pressure 86 mm[Hg] Dr. Catrachito Mercedes MD Work Phone: 9(568)469-056041 [place] [address] 05-11-2025 13:52-0400 Systolic blood pressure 130 mm[Hg] Dr. Catrachito Mercedes MD Work Phone: 1(403)374-765941 [place] [address] 05-01-2025 14:59-0400 Body height 160.[address] Catrachito Mercedes MD Work Phone: 9(397)095-294641 [place] [address] 05-01-2025 14:59-0400 Body mass index (BMI) [Ratio] 35.5 kg/m2 Dr. Catrachito Mercedes MD Work Phone: 7(435)385-086141 [place] [address] 05-01-2025 14:59-0400 Body weight 90.[address] Catrachito Mercedes MD Work Phone: 4(549)879-250341 [place] [address] 05-01-2025 14:59-0400 Diastolic blood pressure 78 mm[Hg] Dr. Catrachito Mercedes MD Work Phone: 8(255)742-145441 [place] [address] 05-01-2025 14:59-0400 Systolic blood pressure 125 mm[Hg] Dr. Catrachito Mercedes MD Work Phone: 5(078)714-279941 [place] [address] 04-06-2025 13:00-0400 Body height 160.[address] Catrachito Mercedes MD Work Phone: 8(240)210-241241 [place] [address] 04-06-2025 13:00-0400 Body mass index (BMI) [Ratio] 34.4 kg/m2 Dr. Catrachito Mercedes MD Work Phone: 7(682)732-997741 [place] [address] 04-06-2025 13:00-0400 Body weight 88.[address] Catrachito Mercedes MD Work Phone: 3(462)309-918341 [place] [address] 04-06-2025 13:00-0400 Diastolic blood pressure 79 mm[Hg] Dr. Catrachito Mercedes MD Work Phone: 5(514)781-819686 [address] 04-06-2025 13:00-0400 Systolic blood pressure 138 mm[Hg] Dr. Catrachito Mercedes MD Work Phone: 9(345)855-371486 [address] 03-09-2025 11:36-0400 Body height 160.[address] Catrachito Mercedes MD Work Phone: 5(034)312-244341 [place] [address] 03-09-2025 11:36-0400 Body mass index (BMI) [Ratio] 33.8 kg/m2 Dr. Catrachito Mercedes MD Work Phone: 3(054)359-298741 [place] [address] 03-09-2025 11:36-0400 Body weight 86.[address] Catrachito Mercedes MD Work Phone: 1(704)999-231041 [place] [address] 03-09-2025 11:36-0400 Diastolic blood pressure 85 mm[Hg] Dr. Catrachito Mercedes MD Work Phone: 0(754)453-942441 [place] [address] 03-09-2025 11:36-0400 Systolic blood pressure 129 mm[Hg] Dr. Catrachito Mercedes MD Work Phone: 9(160)071-229541 [place] [address] 02-23-2025 11:01-0400 Body height 160.[address] Catrachito Mercedes MD Work Phone: 3(134)583-016841 [place] [address] 02-23-2025 11:00-0400 Body mass index (BMI) [Ratio] 32.9 kg/m2 Dr. Catrachito Mercedes MD Work Phone: 2(445)477-743229 [place] [address] 02-23-2025 11:00-0400 Body weight 84.[address] Catrachito Mercedes MD Work Phone: 7(533)305-423841 [place] [address] 02-23-2025 11:00-0400 Diastolic blood pressure 86 mm[Hg] Dr. Catrachito Mercedes MD Work Phone: 1(089)268-159641 [place] [address] 02-23-2025 11:00-0400 Systolic blood pressure 135 mm[Hg] Dr. Catrachito Mercedes MD Work Phone: 2(430)408-892229 [place] [address] 02-06-2025 08:17-0400 Body height 160.[address] Catrachito Mercedes MD Work Phone: 2(120)705-173241 [place] [address] 02-06-2025 08:17-0400 Body mass index (BMI) [Ratio] 32.8 kg/m2 Dr. Catrachito Mercedes MD Work Phone: 5(774)914-348941 [place] [address] 02-06-2025 08:17-0400 Body weight 84.[address] Catrachito Merceeds MD Work Phone: 7(773)509-092041 [place] [address] 02-06-2025 08:17-0400 Diastolic blood pressure 70 mm[Hg] Dr. Catrachito Mercedes MD Work Phone: 3(108)137-304541 [place] [address] 02-06-2025 08:17-0400 Systolic blood pressure 118 mm[Hg] Dr. Catrachito Mercedes MD Work Phone: 9(974)130-455841 [place] [address] 02-02-2025 15:25-0400 Body height 160.[address] Catrachito Mercedes MD Work Phone: 4(538)432-336141 [place] [address] 02-02-2025 15:25-0400 Body mass index (BMI) [Ratio] 33 kg/m2 Dr. Catrachito Mercedes MD Work Phone: 7(767)372-651841 [place] [address] 02-02-2025 15:25-0400 Body weight 84.[address] Catrachito Mercedes MD Work Phone: 8(957)839-894941 [place] [address] 02-02-2025 15:25-0400 Diastolic blood pressure 86 mm[Hg] Dr. Catrachito Mercedes MD Work Phone: 5(108)776-523641 [place] [address] 02-02-2025 15:25-0400 Systolic blood pressure 143 mm[Hg] Dr. Catrachito Mercedes MD Work Phone: 8(057)160-973441 [place] [address] 01-25-2025 14:45-0400 Body height 160.[address] Catrachito Mercedes MD Work Phone: [facility] 01-25-2025 14:45-0400 Body mass index (BMI) [Ratio] 32.6 kg/m2 Dr. Catrachito Mercedes MD Work Phone: [facility] 01-25-2025 14:45-0400 Body weight 83.[address] Catrachito Mercedes MD Work Phone: [facility] 01-25-2025 14:45-0400 Diastolic blood pressure 62 mm[Hg] Dr. Catrachito Mercedes MD Work Phone: [facility] 01-25-2025 14:45-0400 Systolic blood pressure 128 mm[Hg] Dr. Catrachito Mercedes MD Work Phone: [facility] 01-22-2025 11:18-0400 Respiratory rate 18 /min [facility] 01-22-2025 11:17-0400 Diastolic blood pressure 76 mm[Hg] [facility] 01-22-2025 11:17-0400 Heart rate 85 /min [facility] 01-22-2025 11:17-0400 SaO2% (BldA) [Mass fraction] 100 % [facility] 01-22-2025 11:17-0400 Systolic blood pressure 145 mm[Hg] [facility] 01-22-2025 11:16-0400 Body temperature 98.01 [degF] [facility] 12-11-2024 14:54-0400 Body height 160 cm Denise Ordonez MD Work Phone: [facility] 12-11-2024 14:54-0400 Body mass index (BMI) [Ratio] 32.6 kg/m2 Denise Ordonez MD Work Phone: [facility] 12-11-2024 14:54-0400 Body temperature 97.3 [degF] Denise Ordonez MD Work Phone: [facility] 12-11-2024 14:54-0400 Body weight 83.46 kg Denise Ordonez MD Work Phone: [facility] 12-11-2024 14:54-0400 Diastolic blood pressure 63 mm[Hg] Denise Ordonez MD Work Phone: [facility] 12-11-2024 14:54-0400 Heart rate 73 /min Denise Ordonez MD Work Phone: [facility] 12-11-2024 14:54-0400 SaO2% (BldA) [Mass fraction] 98 % Denise Ordonez MD Work Phone: [facility] 12-11-2024 14:54-0400 Systolic blood pressure 122 mm[Hg] Denise Ordonez MD Work Phone: [facility] 11-22-2024 10:52-0400 Diastolic blood pressure 63 mm[Hg] Henrietta Herndon MD Work Phone: [facility] 11-22-2024 10:52-0400 Heart rate 77 /min Henrietta Herndon MD Work Phone: [facility] 11-22-2024 10:52-0400 Respiratory rate 16 /min Henrietta Herndon MD Work Phone: [facility] 11-22-2024 10:52-0400 SaO2% (BldA) [Mass fraction] 100 % Henrietta Herndon MD Work Phone: [facility] 11-22-2024 10:52-0400 Systolic blood pressure 107 mm[Hg] Henrietta Herndon MD Work Phone: [facility] 11-22-2024 10:22-0400 Body temperature 99.1 [degF] Henrietta Herndon MD Work Phone: [facility] 11-22-2024 08:38-0400 Body height 160 cm Henrietta Herndon MD Work Phone: [facility] 11-22-2024 08:38-0400 Body mass index (BMI) [Ratio] 33.59 kg/m2 Henrietta Herndon MD Work Phone: [facility] 11-22-2024 08:38-0400 Body weight 86 kg Hnerietta Herndon MD Work Phone: [facility] 10-11-2024 10:33-0500 Diastolic blood pressure 62 mm[Hg] Henrietta Herndon MD Work Phone: [facility] 10-11-2024 10:33-0500 Heart rate 76 /min Henrietta Herndon MD Work Phone: [facility] 10-11-2024 10:33-0500 Respiratory rate 16 /min Henrietta Herndon MD Work Phone: [facility] 10-11-2024 10:33-0500 SaO2% (BldA) [Mass fraction] 99 % Henrietta Herndon MD Work Phone: [facility] 10-11-2024 10:33-0500 Systolic blood pressure 112 mm[Hg] Henrietta Herndon MD Work Phone: [facility] 10-11-2024 09:47-0500 Body temperature 97.9 [degF] Henrietta Herndon MD Work Phone: [facility] 10-11-2024 07:55-0500 Body height 160 cm Henrietta Herndon MD Work Phone: [facility] 10-11-2024 07:55-0500 Body mass index (BMI) [Ratio] 32.57 kg/m2 Henrietta Herndon MD Work Phone: [facility] 10-11-2024 07:55-0500 Body weight 83.4 kg Henrietta Herndon MD Work Phone: [facility] 08-14-2024 11:03-0500 Diastolic blood pressure 88 mm[Hg] Gavino Tristan MD Work Phone: [facility] 08-14-2024 11:03-0500 Heart rate 64 /min Gavino Tristan MD Work Phone: [facility] 08-14-2024 11:03-0500 Respiratory rate 18 /min Gavino Tristan MD Work Phone: [facility] 08-14-2024 11:03-0500 SaO2% (BldA) [Mass fraction] 99 % Gavino Tristan MD Work Phone: [facility] 08-14-2024 11:03-0500 Systolic blood pressure 143 mm[Hg] Gavino Tristan MD Work Phone: [facility] 08-14-2024 10:44-0500 Body temperature 97 [degF] Gavino Tristan MD Work Phone: [facility] 08-14-2024 10:32-0500 Body height 160 cm Gavino Tristan MD Work Phone: [facility] 08-14-2024 10:32-0500 Body mass index (BMI) [Ratio] 32.65 kg/m2 Gavino Tristan MD Work Phone: [facility] 08-14-2024 10:32-0500 Body weight 83.6 kg Gavino Tristan MD Work Phone: [facility] 07-14-2024 13:31-0500 Body height 160 cm Imelda Pollard MD Work Phone: [facility] 07-14-2024 13:31-0500 Body mass index (BMI) [Ratio] 32.31 kg/m2 Imelda Pollard MD Work Phone: [facility] 07-14-2024 13:31-0500 Body weight 82.72 kg Imelda Pollard MD Work Phone: [facility] 07-14-2024 13:31-0500 Diastolic blood pressure 79 mm[Hg] Imelda Pollard MD Work Phone: [facility] 07-14-2024 13:31-0500 Heart rate 64 /min Imelda Pollard MD Work Phone: [facility] 07-14-2024 13:31-0500 Systolic blood pressure 128 mm[Hg] Imelda Pollard MD Work Phone: [facility] 01-25-2024 11:08-0400 Body height 160 cm Sarah Espino PLAN COORDINATOR-APPLICATOR SPRAYER Work Phone: [facility] 01-25-2024 11:08-0400 Body mass index (BMI) [Ratio] 31.18 kg/m2 Sarah Espino PLAN COORDINATOR-APPLICATOR SPRAYER Work Phone: [facility] 01-25-2024 11:08-0400 Body weight 79.83 kg Sarah Espino PLAN COORDINATOR-APPLICATOR SPRAYER Work Phone: [facility] 12-09-2023 13:23-0400 Body height 160.02 cm [...] Pressure Non-Invasive 56 mm[Hg] ERNA TROTTER MD [facility] 08-27-2023 14:07-0500 Systolic Blood Pressure Non-Invasive 102 mm[Hg] ERNA TROTTER MD [facility] 08-27-2023 13:22-0500 Diastolic Blood Pressure Non-Invasive 64 mm[Hg] ERNA TROTTER MD [facility] 08-27-2023 13:22-0500 Heart rate 65 /min ERNA TROTTER MD [facility] 08-27-2023 13:22-0500 Respiratory rate 12 /min ERNA TROTTER MD [facility] 08-27-2023 13:22-0500 Systolic Blood Pressure Non-Invasive 117 mm[Hg] ERNA TROTTER MD [facility] 08-27-2023 13:01-0500 Diastolic Blood Pressure Non-Invasive 99 mm[Hg] ERNA TROTTER MD [facility] 08-27-2023 13:01-0500 Heart rate 61 /min ERNA TROTTER MD [facility] 08-27-2023 13:01-0500 Respiratory rate 15 /min ERNA TROTTER MD [facility] 08-27-2023 13:01-0500 Systolic Blood Pressure Non-Invasive 121 mm[Hg] ERNA TROTTER MD [facility] 08-27-2023 12:55-0500 Heart rate 51 /min ERNA TROTTER MD [facility] 08-27-2023 12:55-0500 Respiratory rate 19 /min ERNA TROTTER MD [facility] 08-27-2023 12:45-0500 Body temperature 97.52 [degF] ERNA TROTTER MD [facility] 08-27-2023 12:35-0500 Respiratory Rate - Anes 32 br/min ERNA TROTTER MD [facility] 08-27-2023 12:30-0500 Respiratory Rate - Anes 10 br/min ERNA TROTTER MD [facility] 08-27-2023 12:25-0500 Respiratory Rate - Anes 10 br/min ERNA TROTTER MD [facility] 08-27-2023 10:13-0500 Body height 160 cm ERNA TROTTER MD [facility] 08-27-2023 10:13-0500 Body temperature 97.52 [degF] ERNA TROTTER MD [facility] 08-27-2023 10:13-0500 Body weight 75 kg ERNA TROTTER MD [facility] 08-27-2023 10:13-0500 Heart rate 63 /min ERNA TROTTER MD [facility] 08-13-2023 07:38-0500 Blood Pressure Location ERNA TROTTER MD [facility] 08-13-2023 07:38-0500 Body height 160 cm ERNA TROTTER MD [facility] 08-13-2023 07:38-0500 Body weight 79.5 kg ERNA TROTTER MD [facility] 08-13-2023 07:38-0500 Body weight 31.05 kg/m2 ERNA TROTTER MD [facility] 08-13-2023 07:38-0500 Diastolic Blood Pressure Non-Invasive 64 mm[Hg] ERNA TROTTER MD [facility] 08-13-2023 07:38-0500 Heart rate 78 /min ERNA TROTTER MD [facility] 08-13-2023 07:38-0500 Respiratory rate 20 /min ERNA TROTTER MD [facility] 08-13-2023 07:38-0500 Systolic Blood Pressure Non-Invasive 110 mm[Hg] ERNA TROTTER MD [facility] 04-10-2022 14:39-0400 Body temperature 97.1 [degF] No [...] 06-15-2025 ambulatory Out of Town Doctor Poppy dey:[facility] Start: 06-01-2025 End: 06-01-[address] Marcia Yen DO -[facility] Work Phone: Start: 06-01-2025 End: 06-01-[address] Catrachito Mercedes MD Work Phone: -[facility] Start: 05-21-2025 End: 05-21-[address] Catrachito Mecredes MD Work Phone: -[facility] Start: 05-21-2025 End: 05-21-2025 Patient encounter procedure Marcia MEZA -[facility] Work Phone: Start: 05-18-2025 End: 05-18-2025 ambulatory DENISE LIAN [facility] pital Start: 05-13-2025 End: 05-13-[address] Catrachito Mercedes MD Work Phone: -Laboratory Specimen Start: 05-13-2025 End: 05-13-2025 Patient encounter procedure Domo Friend DO -Laboratory Specimen Work Phone: Start: 05-12-2025 End: 05-13-[address] Catrachito Mercedes MD Work Phone: -Laboratory Start: 05-12-2025 End: 05-12-2025 Patient encounter procedure Domo Friend DO -Laboratory Work Phone: Start: 05-11-2025 End: 05-11-2025 Patient encounter procedure Iesha Lo CNM -[facility] Work Phone: Start: 05-11-2025 End: 05-12-[address] Catrachito Mercedes MD Work Phone: [facility] Start: 05-08-2025 End: 05-08-[address] PATRICK CARBAJAL MD Facility:A Start: 05-08-2025 End: 05-08-2025 ambulatory CARMEN LUGO Byron [facility] spital Start: 05-01-2025 End: 05-01-[address] Carmen Lugo MD -[facility] Work Phone: Start: 05-01-2025 End: 05-01-[address] Catrachito Mercedes MD Work Phone: [facility] Start: 04-20-2025 End: 04-20-2025 ambulatory CARMEN Henry [facility] Start: 04-06-2025 End: 04-06-2025 Patient encounter procedure Iesha NASCIMENTO -[facility] Work Phone: Start: 04-06-2025 End: 04-06-[address] Catrachito Mercedes MD Work Phone: -[facility] Start: 03-10-2025 End: 03-10-[address] Catrachito Mercedes MD Work Phone: -Laboratory Start: 03-10-2025 End: 03-10-2025 Patient encounter procedure Domo Weaver DO -Laboratory Work Phone: Start: 03-09-2025 End: 03-09-[address] Carmen Lugo MD -[facility] Work Phone: Start: 03-09-2025 End: 03-10-[address] Catrachito Mercedes MD Work Phone: [facility] Start: 02-23-2025 End: 02-23-[address] Marcia Yen DO -[facility] Work Phone: Start: 02-23-2025 End: 02-23-[address] Catrachito Mercedes MD Work Phone: [facility] [place] Start: 02-06-2025 End: 02-06-2025 Patient encounter procedure Iesha Lo [facility] -[facility] [place] Work Phone: Start: 02-06-2025 End: 02-06-[address] Catrachito Mercedes MD Work Phone: [facility] Work Phone: Start: 02-06-2025 End: 02-06-2025 ambulatory Catrachito Mercedes Facility:[facility] Start: 02-02-2025 End: 02-02-[address] Catrachito Mercedes MD Work Phone: [facility] Work Phone: Start: 02-02-2025 End: 02-02-2025 Patient encounter procedure Mary Beth Allen [facility] -[facility] [place] Work Phone: Start: 02-02-2025 End: 02-02-2025 ambulatory Domo Weaver Facility:[facility] Start: 01-26-2025 End: 01-26-[address] Carmen Lugo MD -[facility] [place] Work Phone: Start: 01-26-2025 End: 01-26-[address] Catrachito Mercedes MD Work Phone: [facility] Work Phone: Start: 01-25-2025 End: 01-25-2025 Patient encounter procedure Katelyn Benitez PLAN COORDINATOR-APPLICATOR SPRAYER Work Phone: Nicol Dhaliwal Comment on above: Encounter to determi ne viability of , single or unspecified fetus (Primary Dx) Start: 01-25-2025 End: 01-25-2025 ambulatory KATELYN BENITEZ [facility] Start: 01-22-2025 End: 01-22-2025 Emergency department patient visit DENISE ORDONEZ [facility] Comment on above: Vaginal discharge (P rimary Dx) Start: 01-18-2025 End: 01-18-2025 ambulatory KATELYN BENITEZ [facility] Start: 01-11-2025 End: 01-11-2025 Patient encounter procedure Sarah Espino PLAN COORDINATOR-APPLICATOR SPRAYER Work Phone: Nicol Dhaliwal Comment on above: Encounter to determi ne viability of , single or unspecified fetus (Primary Dx) Start: 01-11-2025 End: 01-11-2025 ambulatory SARAH Billingsley SRINIVAS [facility] Start: 01-09-2025 End: 01-09-2025 ambulatory DENISE ORDONEZ [facility] Start: 01-06-2025 End: 01-06-[address] Catrachito Mercedes MD Work Phone: [facility] Work Phone: Start: 01-06-2025 End: 01-06-2025 Patient encounter procedure Domo Weaver DO -Laboratory Work Phone: Start: 01-05-2025 End: 01-06-2025 ambulatory DENISE ORDONEZ [facility] Start: 01-01-2025 End: 01-01-2025 ambulatory Domo Weaver Facility:[facility] Start: 01-01-2025 End: 01-01-2025 Patient encounter procedure Domo Weaver DO -[facility] Work Phone: Start: 12-26-2024 End: 12-26-2024 Subsequent hospital visit by physician Gavino Tristan MD Work Phone: Nicol Dhaliwal Comment on above: Encounter for assist ed reproductive fertility cycle Start: 12-26-2024 End: 12-26-2024 ambulatory DENISE ORDONEZ [facility] Start: 12-20-2024 End: 12-20-2024 Office outpatient new 30 minutes Anabell Rogel MD Work Phone: [facility] Comment on above: Plantar wart (Primar y Dx); Dermatologic problem Start: 12-20-2024 End: 12-20-2024 [address]NABELL Loza ANOOP [facility] Ambulatory Start: 12-20-2024 End: 12-20-2024 ambulatory DENISE ORDONEZ [facility] Start: 12-15-2024 End: 12-15-2024 Professional / ancillary services management [facility] [id number] [facility] Nicol Dhaliwal Comment on above: Female infertility Start: 12-15-2024 End: 12-15-2024 ambulatory IMELDA Analilia [facility] Start: 12-11-2024 End: 12-11-2024 Initial preventive medicine new pt age 18-39yrs Denise Ordonez MD Work Phone: [facility] Comment on above: Healthcare maintenan ce (Primary Dx); Hypovitaminosis D; Polycystic ovarian disease; Crohn's disease of colon without complication (Multi) Start: 12-11-2024 End: 12-11-2024 Patient encounter status Denise Ordonez MD Work Phone: [facility] Work Phone: Start: 12-11-2024 End: 12-11-2024 ambulatory DENISE ORDONEZ [facility] Start: 12-11-2024 End: 12-11-2024 Encounter for general adult medical examination without abnormal findings DENISE ORDONEZ [facility] Start: 12-04-2024 End: 12-04-2024 ambulatory IMELDA [facility] Start: 11-22-2024 End: 11-22-2024 Subsequent hospital visit by physician Henrietta Herndon MD Work Phone: Nicol Dhaliwal Comment on above: Encounter for assist ed reproductive fertility cycle Start: 11-22-2024 End: 11-22-2024 ambulatory HENRIETTA HERNDON [facility] Start: 11-21-2024 End: 11-21-2024 ambulatory DENISE [facility] Start: 11-21-2024 End: 11-21-2024 Encounter for blood typing [facility] Start: 11-20-2024 End: 11-20-2024 Patient encounter status [facility] Work Phone: Start: 11-20-2024 End: 11-20-2024 Professional / ancillary services management Mac [id number] [facility] Nicol Dhaliwal Comment on above: Fertility testing (P rimary Dx); Female infertility; Screening for diabetes mellitus; Encounter for Rh blood typing; Screening for STDs (sexually transmitted diseases); Screening for thyroid disorder Start: 11-20-2024 End: 11-20-2024 ambulatory ALEJANDRA Sargent [facility] Start: 11-20-2024 End: 11-20-2024 Encounter for blood typing ALEJANDRA Sargent [facility] Start: 11-18-2024 End: 11-18-2024 Professional / ancillary services management Mac [id number] [facility] Nicol Dhaliwal Comment on above: Female infertility Start: 11-18-2024 End: 11-18-2024 ambulatory ALEJANDRA D [facility] Start: 11-16-2024 End: 11-16-2024 Professional / ancillary services management Mac [id number] [facility] Nicol Dhaliwal Comment on above: Female infertility Start: 11-16-2024 End: 11-16-2024 ambulatory ALEJANDRA D [facility] Start: 11-14-2024 End: 11-14-2024 Professional / ancillary services management Mac [id number] [facility] Nicol Dhaliwal Comment on above: Female infertility Start: 11-14-2024 End: 11-14-2024 ambulatory ALEJANDRA [facility]argent [facility] Start: 11-08-2024 End: 11-08-2024 Professional / ancillary services management Mac [id number] [facility] Nicol Dhaliwal Comment on above: Female infertility Start: 11-08-2024 End: 11-08-2024 ambulatory ALEJANDRA [facility]argent [facility] Start: 10-11-2024 End: 10-11-2024 Subsequent hospital visit by physician Henrietta Herndon MD Work Phone: Nicol Dhaliwal Comment on above: Encounter for assist ed reproductive fertility cycle Start: 10-11-2024 End: 10-11-2024 ambulatory HENRIETTA HERNDON [facility] Start: 10-10-2024 End: 10-10-2024 ambulatory IMELDA [facility] Start: 10-09-2024 End: 10-09-2024 Professional / ancillary services management Mac [id number] [facility] Nicol Dhaliwal Comment on above: Female infertility Start: 10-09-2024 End: 10-09-2024 ambulatory ALEJANDRA [facility]argent [facility] Start: 10-08-2024 End: 10-08-2024 Professional / ancillary services management Mac [id number] [facility] Nicol Dhaliwal Comment on above: Female infertility Start: 10-08-2024 End: 10-08-2024 ambulatory ALEJANDRA [facility]argent [facility] Start: 10-07-2024 End: 10-07-2024 Professional / ancillary services management Mac [id number] [facility] Nicol Dhaliwal Comment on above: Female infertility Start: 10-07-2024 End: 10-07-2024 ambulatory ALEJANDRA [facility]argent [facility] Start: 10-05-2024 End: 10-05-2024 Professional / ancillary services management Mac [id number] [facility] Nicol Dhaliwal Comment on above: Female infertility Start: 10-05-2024 End: 10-05-2024 ambulatory ALEJANDRA Sargent [facility] Start: 10-03-2024 End: 10-03-2024 ambulatory IMELDA Billingsley [facility] Start: 09-29-2024 End: 09-29-2024 ambulatory MARCIA Sargent [facility] Ambulatory Start: 09-27-2024 End: 09-27-2024 Professional / ancillary services management Mac [id number] [facility] Nicol Dhaliwal Comment on above: Arrived Female infertility Start: 09-27-2024 End: 09-27-2024 ambulatory ALEJANDRA [facility]argent [facility] Start: 09-19-2024 End: 09-19-2024 ambulatory [facility] Ambulatory Start: 09-15-2024 End: 09-15-2024 ambulatory [facility] Ambulatory Start: 09-15-2024 End: 09-15-2024 Encounter for general adult medical examination without abnormal findings [facility] Ambulatory Start: 08-14-2024 End: 08-14-2024 Subsequent hospital visit by physician Gavino Tristan MD Work Phone: Nicol Dhaliwal Comment on above: Endometritis (Primar y Dx); Fertility testing Start: 08-14-2024 End: 08-14-2024 ambulatory GAVINO TRISTAN [facility] Start: 07-24-2024 ambulatory Nastaran Mago Facilit y:[facility] Start: 07-14-2024 End: 07-14-2024 Patient encounter procedure Imelda Pollard MD Work Phone: Nicol Dhaliwal Comment on above: Fertility testing (P rimary Dx); Encounter for preprocedural laboratory examination; Female fertility problem [N97.9] Start: 07-14-2024 End: 07-14-2024 Patient encounter status Imelda Pollard MD Work Phone: [facility] Work Phone: Start: 07-14-2024 End: 07-14-2024 ambulatory IMELDA GALLEGOSAmarilis [facility] Start: 07-14-2024 End: 07-14-2024 Encounter for preprocedural laboratory examination IMELDA POLLARD [facility] Start: 07-12-2024 End: 07-12-2024 ambulatory Nastaran Mago Facility:[facility] Start: 06-29-2024 End: 06-29-2024 ambulatory Nastaran Mago Facility:[facility] Start: 06-24-2024 End: 06-24-2024 ambulatory Nastaran Mago Facility:[facility] Start: 01-25-2024 End: 01-25-2024 Telemedicine [...] encounter procedure Dr. Domo Weaver Work Phone: [facility] Work Phone: Start: 11-25-2023 End: 11-26-2023 ambulatory CATRACHITO MERCEDES MD Facility:A Start: 11-06-2023 End: 11-06-2023 ambulatory No Primary Care Physician [facility] Work Phone: Start: 11-06-2023 End: 11-06-2023 Patient encounter procedure No Primary Care Physician [facility]-Laboratory Work Phone: Start: 10-01-2023 Non-patient / Non-visit No Primary Care Physician [facility] Start: 10-01-2023 End: 10-01-2023 Admission to same day surgery center No Primary Care Physician [facility]-Endoscopy Work Phone: Start: 10-01-2023 End: 10-01-2023 ambulatory No Primary Care Physician [facility] Work Phone: Start: 08-27-2023 End: 08-27-2023 ambulatory ERNA TROTTER MD Facility:B Start: 08-27-2023 End: 08-27-2023 SAME DAY STAY ERNA TROTTER MD [facility] Start: 08-13-2023 End: 08-14-2023 ambulatory ERNA TROTTER MD Facility:[facility] Start: 08-13-2023 End: 08-13-2023 Admission to [facility] RENA TROTTER MD [facility] Start: 08-07-2023 End: 08-07-2023 ambulatory No Primary [...] Facility:A Start: 04-09-2023 Telephone encounter Landy blankenship PLAN COORDINATOR - APPLICATOR SPRAYER Work Phone: [facility] Comment on above: NO SURPRISE ACT New Patient Start: 04-05-2023 Telephone encounter Galina diaz MD Work Phone: [facility] Comment on above: Appointment Request Start: 04-10-2022 End: 04-10-2022 Patient encounter procedure No Primary Care Physician [facility]-Medical Out Start: 03-05-2022 End: 03-05-2022 Patient encounter procedure No Primary Care Physician [facility]-Laboratory Start: 03-05-2022 End: 03-05-2022 Patient encounter procedure No Primary Care Physician [facility] Gastroenterology Start: 11-26-2021 End: 11-26-2021 Patient encounter procedure No Primary Care Physician [facility]-Radiology, [place] Start: 11-21-2021 End: 11-21-2021 Patient encounter procedure No Primary Care Physician [facility]-Laboratory, Specimen Start: 11-20-2021 End: 11-20-2021 Patient encounter procedure No Primary Care Physician [facility]Laboratory Start: 10-22-2021 End: 10-22-2021 Patient encounter procedure No Primary Care Physician [facility] Gastro Virtual Start: 07-28-2021 Patient encounter procedure No Primary Care Physician [facility]Laboratory Start: 07-28-2021 End: 07-28-2021 Patient encounter procedure No Primary Care Physician [facility] Gastroenterology Procedures Date Procedure Procedure Detail [...] Work Phone: Comment on above: Test Ordered: [id number] Ustekinumab Drug + AntibodyUstekinumab 8.9 ug/mL ES [...] R, et al. Clin Gastroenterol Hepatol 2017;15: 7704-0591.4. Odiloning SP, et al. Br J Dermatol;2015:173;855-857.5. Grover H, et al. PLOS ONE DOI;10:1371/journal.pone.0813132.6. Allan L, et al. Br J Dermatol 2014;170:261-273.These tests were developed and their performancecharacteristics determined by [facility]. They have not beencleared or approved by the Food and Drug Administration.However, both drug and anti-drug antibody assays have beendeveloped and validated in accordance with FDA Guidance forIndustry documents: Bioanalytical Method Validation (2013)and Assay Development and Validation for ImmunogenicityTesting of Therapeutic Protein Products (2016).Performed at: [facility] [address] [id number] Director: Michelle Acharya MD, Phone: [phone] at: [facility] Lab[address] [id number] Director: Almas Saavedra PhD, Phone: [phone] Start: 03-10-2025 Total iron binding capacity measurement [...] HCV Quant by PCR testing - HCVPCR #[id number] Non Reactive: < 0.8 Equivocal: >/= 0.8 to < 1.0 Reactive: >/= 1.0The [facility] requires that a reactive/equivocal HCV antibody result be sent out for confirmation. HCV Quant by PCR testing. Start: 02-06-[address] Catrachito Mercedes MD Work Phone: Comment on above: Antibody Result: InterpretationNon-React carmen: Non-ImmuneReactive: ImmuneThe following results were obtained with the [employer] Rubella IgG assay. Results from assays of other manufacturers cannot be used interchangeably. Start: 02-06-2025 Serologic test for syphilis Dr. Catrachito Mercedes MD Work Phone: Start: 02-02-[address] Catrachito Mercedes MD Work Phone: Comment on above: Test Ordered: [id number] Ustekinumab Drug + AntibodyUstekinumab 3.9 ug/mL ES [...] R, et al. Clin Gastroenterol Hepatol 2017;15: 6885-7490.4. Tessa SP et al. Br J Dermatol;2015:173;855-857.5. Grover H, et al. PLOS ONE DOI;10:1371/journal.pone.0195968.6. Allan Billingsley et al. Br J Dermatol 2014;170:261-273.These tests were developed and their performancecharacteristics determined by [facility]. They have not beencleared or approved by the Food and Drug Administration.However, both drug and anti-drug antibody assays have beendeveloped and validated in accordance with FDA Guidance forIndustry documents: Bioanalytical Method Validation (2013)and Assay Development and Validation for ImmunogenicityTesting of Therapeutic Protein Products (2016).Performed at: [facility] [address] [id number] Director: Gregg Roberto MD, Phone: [phone] at: [facility] [id number] Director: Almas Saavedra PhD, Phone: [phone] Start: 01-22-2025 uterus 14 wk transabdl 08/30 gestat Zane Pryor [facility] Work Phone: Start: 01-22-2025 Blood typing serologic rh (d) Zane Pryor [facility] Work Phone: Start: 01-22-2025 Comprehensive metabolic panel Zane Pryor [facility] Work Phone: Start: 01-22-2025 Smr prim src wet mount nfct agt Zane Pryor [facility] Work Phone: Start: 01-22-2025 Urnls dip stick/tablet rgnt auto w/o microscopy [facility] Work Phone: Start: 12-26-2024 Embryo transfer intrauterine Imelda pollock MD Work Phone: Start: 12-26-2024 Ultrasonic guidance intraoperative Jose Pollard MD Work Phone: Start: 12-20-2024 DESTRUCTION OF LESION Anabell Rogel MD Work Phone: Start: 12-20-2024 Lipid 1996 panel - Serum or Plasma Bill Tristan MD Work Phone: Start: 11-22-2024 Follicle puncture oocyte retrieval any method Katelyn Benitez PLAN COORDINATOR-APPLICATOR SPRAYER Work Phone: Start: 11-20-2024 Us pelvic nonobstetric [...] puncture oocyte retrieval any method Katelyn Benitez PLAN COORDINATOR-APPLICATOR SPRAYER Work Phone: Start: 10-08-2024 Us pelvic nonobstetric [...] or Population) (1 - 1-dose 75+ series) [facility] Start: 2044 Zoster Vaccines (1 of 2) Zoster Vaccines (1 of 2) [facility] Start: 07-12-2034 DTaP/Tdap/Td Vaccines (2 - Tdap) DTaP/Tdap/Td Vaccines (2 - Tdap) [facility] Start: 12-20-2029 Lipid panel Lipid Panel [facility] Start: 12-20-2025 Vitamin D25-OH Vitamin D25-OH [facility] Start: 12-12-2025 Yearly Adult Physical Yearly Adult Physical [facility] Start: 06-21-2025 Procedure [facility] Start: 06-01-2025 Measurement of glucose 2 hours after glucose challenge for glucose tolerance test [facility] Start: 06-01-2025 Serologic test for syphilis [facility] Start: 06-01-2025 [facility] Start: 05-13-2025 Giardia Antigen (LIZZ) Giardia Antigen (LIZZ) [facility] Start: 05-13-2025 Ova and Parasites Ova and Parasites [facility] Start: 02-06-2025 CBC W Auto Differential panel - Blood [facility] Start: 02-06-2025 Hemoglobin A1c/Hemoglobin.total in Blood [facility] Start: 02-06-2025 Hepatitis C antibody measurement [facility] Start: 02-06-2025 Rubella IgG measurement [facility] Start: 02-06-2025 Serologic test for syphilis [facility] Start: 02-06-2025 [facility] Start: 01-25-2025 End: 01-25-2025 Patient encounter procedure 01/25/2025 2:00 PM EDT Office Visit Nicol Aliciaon [address] [place] [phone] Katelyn Benitez, PLAN COORDINATOR-APPLICATOR SPRAYER [address] [place], [place] [id number] Camarenaangelica Hagen Madhuri Start: 01-25-2025 End: 01-25-2025 Professional / ancillary services management 01/25/2025 1:30 PM EDT Ancillary Procedure Camarenaangelica Hagen Ravinon [address] [place] [phone] Camarena Hieu Dhaliwal Start: 01-11-2025 End: 01-11-2026 US Pelvis transvaginal US OB transvaginal Imaging Routine Encounter to determine viability of , single or unspecified fetus Expected: 01/11/2025, Expires: 01/11/2026 [facility] Service Area Work Phone: Comment on above: Expected: 01/11/2025, Expires: Start: 01-10-2025 End: 01-10-2025 Patient encounter procedure 01/10/2025 9:30 AM EDT Office Visit [address] [phone] Anabell Michael MD [address] [place] [phone] [facility] Start: 01-05-2025 End: 01-05-2025 Professional / ancillary services management 01/05/2025 8:30 AM EDT Ancillary Procedure Camarenaangelica Hagen Madhuri [address] [place] [address] Camarena Hieu Dhaliwal Start: 12-26-2024 End: 12-26-2024 Patient encounter procedure 12/26/2024 11:00 AM EDT Procedure Visit Camarena Hieu Dhaliwal [address] [place] [address] Imelda Pollard MD [address] [place] [address] Nicol Ackermantuckerfaye Start: 12-20-2024 End: 12-20-2024 Patient encounter procedure [facility] Comment on above: Arrived Start: 12-15-2024 End: 12-15-2024 Professional / ancillary services management 12/15/2024 6:45 AM EDT Ancillary Procedure Nicol Hagen Madhuri [address] [place] [address] Nicol Ackermanjuanito Start: 12-11-2024 End: 12-11-2024 Patient encounter procedure 12/11/2024 2:30 PM EDT Office Visit [facility] [address] [place] [address] [place] [address] [address] [facility] [address] [place], [place] [phone] [facility] Start: 12-11-2024 End: 12-11-2025 25-hydroxyvitamin D3 [Mass/volume] in Serum or Plasma Vitamin D 25-Hydroxy,Total (for eval of Vitamin D levels) Lab Routine Hypovitaminosis D Expected: 12/11/2024 (Approximate), Expires: 12/11/2025 [facility] Work Phone: Comment on above: Expected: 12/11/2024 (Approximate), Expi res: 12/11/2025 Start: 12-11-2024 End: 12-11-2025 Lipid 1996 panel - Serum or Plasma Lipid Panel Lab Routine Healthcare maintenance Expected: 12/11/2024 (Approximate), Expires: 12/11/2025 [facility] Service Area Work Phone: Comment on above: Expected: 12/11/2024 (Approximate), Expi res: 12/11/2025 Start: 11-22-2024 End: 11-22-2024 Patient encounter procedure 11/22/2024 10:00 AM EDT Procedure Visit Camarenaangelica Hagen Madhuri [address] [place] [phone] Henrietta Herndon MD [address] [place] [address] SERGEI Dhaliwal Start: 11-20-2024 End: 11-20-2025 Blood type and Indirect antibody screen panel - Blood Type And Screen Is this order related to or an upcoming surgery? No Lab Routine Encounter for Rh blood typing Expected: 11/20/2024 (Approximate), Expires: 11/20/2025 [facility] Work Phone: Comment on above: Expected: 11/20/2024 (Approximate), Expi res: 11/20/2025 Start: 11-20-2024 End: 11-20-2025 Chlamydia trachomatis and Neisseria gonorrhoeae DNA [Identifier] in Unspecified specimen by ALEKSEY with probe detection C. trachomatis / N. gonorrhoeae, Amplified, Urogenital Lab Routine Screening for STDs (sexually transmitted diseases) Expected: 11/20/2024 (Approximate), Expires: 11/20/2025 [facility] Work Phone: Comment on above: Expected: 11/20/2024 (Approximate), Expi res: 11/20/2025 Start: 11-20-2024 End: 11-20-2025 Hemoglobin A1c/Hemoglobin.total in Blood Hemoglobin A1C Lab Routine Screening for diabetes mellitus Expected: 11/20/2024 (Approximate), Expires: 11/20/2025 [facility] Work Phone: Comment on above: Expected: 11/20/2024 (Approximate), Expi res: 11/20/2025 Start: 11-20-2024 End: 11-20-2025 Hepatitis B virus surface Ag [Presence] in Serum or Plasma by Immunoassay Hepatitis B surface antigen Lab Routine Screening for STDs (sexually transmitted diseases) Expected: 11/20/2024 (Approximate), Expires: 11/20/2025 [facility] Work Phone: Comment on above: Expected: 11/20/2024 (Approximate), Expi res: 11/20/2025 Start: 11-20-2024 End: 11-20-2025 Hepatitis C virus Ab [Presence] in Serum Hepatitis C Antibody Lab Routine Screening for STDs (sexually transmitted diseases) Expected: 11/20/2024 (Approximate), Expires: 11/20/2025 [facility] Work Phone: Comment on above: Expected: 11/20/2024 (Approximate), Expi res: 11/20/2025 Start: 11-20-2024 End: 11-20-2025 HIV 1+2 Ab+HIV1 p24 Ag [Presence] in Serum or Plasma by Immunoassay HIV 1/2 Antigen/Antibody Screen with Reflex to Confirmation Lab Routine Screening for STDs (sexually transmitted diseases) Expected: 11/20/2024 (Approximate), Expires: 11/20/2025 [facility] Work Phone: Comment on above: Expected: 11/20/2024 (Approximate), Expi res: 11/20/2025 Start: 11-20-2024 End: 11-20-2025 Lutropin [Units/volume] in Serum or Plasma Luteinizing Hormone Lab STAT Female infertility Expected: 11/20/2024 (Approximate), Expires: 11/20/2025 [facility] Work Phone: Comment on above: Expected: 11/20/2024 (Approximate), Expi res: 11/20/2025 Start: 11-20-2024 End: 11-20-2025 Progesterone [Mass/volume] in Serum or Plasma Progesterone Lab STAT Female infertility Expected: 11/20/2024 (Approximate), Expires: 11/20/2025 [facility] Service Area Work Phone: Comment on above: Expected: 11/20/2024 (Approximate), Expi res: 11/20/2025 Start: 11-20-2024 End: 11-20-2025 [facility]), FEMALE [facility]), FEMALE Lab Routine Fertility testing Expected: 11/20/2024 (Approximate), Expires: 11/20/2025 [facility] Work Phone: Comment on above: Expected: 11/20/2024 (Approximate), Expi res: 11/20/2025 Start: 11-20-2024 End: 11-20-2025 Treponema pallidum IgG+IgM Ab [Presence] in Serum by Immunoassay Syphilis Screen with Reflex Lab Routine Screening for STDs (sexually transmitted diseases) Expected: 11/20/2024 (Approximate), Expires: 11/20/2025 [facility] Work Phone: Comment on above: Expected: 11/20/2024 (Approximate), Expi res: 11/20/2025 Start: 11-20-2024 End: 11-20-2025 TSH with reflex to Free T4 if abnormal TSH with reflex to Free T4 if abnormal Lab Routine Screening for thyroid disorder Expected: 11/20/2024 (Approximate), Expires: 11/20/2025 [facility] Work Phone: Comment on above: Expected: 11/20/2024 (Approximate), Expi res: 11/20/2025 Start: 11-20-2024 End: 11-20-2024 Professional / ancillary services management 11/20/2024 9:45 AM EDT Ancillary Procedure Nicol Aliciaon [address] [place] [phone] Nicol Aliciaon Start: 11-18-2024 End: 11-18-2025 Progesterone [Mass/volume] in Serum or Plasma Progesterone Lab STAT Female infertility Expected: 11/18/2024 (Approximate), Expires: 11/18/2025 [facility] Service Area Work Phone: Comment on above: Expected: 11/18/2024 (Approximate), Expi res: 11/18/2025 Start: 11-18-2024 End: 11-18-2024 Professional / ancillary services management 11/18/2024 10:00 AM EDT Ancillary Procedure [facility] [address] [place] [address] [facility] Start: 11-16-2024 End: 11-16-2024 Professional / ancillary services management 11/16/2024 7:45 AM EDT Ancillary Procedure Nicol Aliciaon [address] [place] [address] [facility] Start: 11-14-2024 End: 11-14-2025 Estradiol (E2) [Mass/volume] in Serum or Plasma Estradiol Lab STAT Female infertility Expected: 11/14/2024 (Approximate), Expires: 11/14/2025 [facility] Service Area Work Phone: Comment on above: Expected: 11/14/2024 (Approximate), Expi res: 11/14/2025 Start: 11-14-2024 End: 11-14-2024 Professional / ancillary services management 11/14/2024 7:15 AM EDT Ancillary Procedure Nicol Dhaliwal [address] [place] [address] [facility] Start: 11-08-2024 End: 11-08-2025 Estradiol (E2) [Mass/volume] in Serum or Plasma Estradiol Lab STAT Female infertility Expected: 11/08/2024 (Approximate), Expires: 11/08/2025 [facility] Service Area Work Phone: Comment on above: Expected: 11/08/2024 (Approximate), Expi res: 11/08/2025 Start: 10-31-2024 End: 10-31-2024 Social Work 10/31/2024 12:[address] [place] [address] Jaci Licea [facility] Start: 10-27-2024 End: 10-27-2024 ambulatory 10/27/2024 8:[address] [place] [place] [address] Marcia Kiser, PLAN COORDINATOR-APPLICATOR SPRAYER [address] Jannet Moura Department [place] [address] [facility] Start: 10-18-2024 End: 10-18-2024 Social Work 10/18/2024 11:[address] [place] [phone] [facility] Start: 10-13-2024 End: 10-13-2024 ambulatory 10/13/2024 8:00 AM EST [address] [place] [address] Marcia Kiser, PLAN COORDINATOR-APPLICATOR SPRAYER [address] Jannet [facility] Department [place] [address] [facility] Start: 10-11-2024 End: 10-11-2024 Patient encounter procedure 10/11/2024 9:15 AM EST Procedure Visit [facility] Nicol Aliciaon [address] [place] [phone] Henrietta Herndon MD [address] [place] [address] [facility] Start: 10-08-2024 End: 10-08-2024 Professional / ancillary services management 10/08/2024 8:30 AM EST Ancillary Procedure [facility] [address] [place] [address] [facility] Start: 10-07-2024 End: 10-07-2024 Professional / ancillary services management 10/07/2024 9:00 AM EST Ancillary Procedure [facility] [address] [place] [address] [facility] Start: 10-03-2024 End: 10-03-2024 [facility] Start: 09-29-2024 End: 09-29-2024 ambulatory 09/29/2024 8:00 AM EST [address] [place] [address] Marcia Kiser, PLAN COORDINATOR-APPLICATOR SPRAYER [address] Jannet Moura Department [place] [address] [facility] Start: 09-15-2024 End: 09-15-2024 ambulatory 09/15/2024 8:[address] [place] [address] Marcia Kiser, PLAN COORDINATOR-APPLICATOR SPRAYER [address] Jannet Moura Department [place] [address] [facility] Start: 08-13-2024 End: 10-14-2024 Choriogonadotropin ( test) [Presence] in Urine POCT , urine manually resulted Point of Care Testing Routine Encounter for preprocedural laboratory examination Expected: 08/13/2024 (Approximate), Expires: 10/14/2024 [facility] Service Area Work Phone: Comment on above: Expected: 08/13/2024 (Approximate), Expi res: 10/14/2024 Start: 08-13-2024 End: 07-14-2025 Hysteroscopy diagnostic Hysteroscopy diagnostic Procedures Routine Fertility testing Expected: 08/13/2024 (Approximate), Expires: 07/14/2025 [facility] Work Phone: Comment on above: Expected: 08/13/2024 (Approximate), Expi res: 07/14/2025 Start: 04-30-2024 COVID-19 Vaccine ( season) COVID-19 Vaccine ( season) [facility] Start: 12-09-2023 Liquid based cervical cytology screening [facility] Start: 10-01-2023 Colonoscopy w/biopsy single/multiple COLONOSCOPY AND BIOPSY [facility] Start: 10-01-2023 Egd transoral biopsy single/multiple EGD BIOPSY SINGLE/MULTIPLE [facility] Start: 10-01-2023 Patient discharge [facility] Start: 08-07-2023 Protein measurement [facility] Start: 08-03-2023 Procedure [facility] Start: 05-04-2023 End: 05-04-2023 Patient encounter procedure 05/04/2023 7:50 AM EDT Office Visit [facility] Internal Medicine [address] [place] [address] Landy Blair, PLAN COORDINATOR - APPLICATOR SPRAYER [address] [facility] [place] [address] [facility] Start: 04-30-2023 COVID-19 Vaccine ( season) COVID-19 Vaccine ( season) [facility] Start: 04-30-2023 Influenza vaccination Influenza Vaccine (#1) [facility] Start: 04-10-2022 Iv infusion therapy/prophylaxis /dx 1st to 1 hr THER/PROPH/DIAG IV INF INIT [facility] Work Phone: Start: 03-05-2022 Celiac disease screen [facility] Work Phone: Start: 03-05-2022 Cytomegalovirus IgG antibody measurement [facility] Work Phone: Start: 03-05-2022 Cytomegalovirus IgM antibody assay [facility] Work Phone: Start: 03-05-2022 Immunoglobulin measurement [facility] Work Phone: Start: 03-05-2022 Serum immunofixation [facility] Work Phone: Start: 03-05-2022 [facility] Work Phone: Start: 2016 DTaP/Tdap/Td Vaccines (1 - Tdap) DTaP/Tdap/Td Vaccines (1 - Tdap) [facility] Start: 2015 Screening for malignant neoplasm of cervix [facility] Start: 2013 DTaP/Tdap/Td Vaccines (1 - Tdap) DTaP/Tdap/Td Vaccines (1 - Tdap) [facility] Start: 2013 Hepatitis B Vaccines (1 of 3 - 19+ 3-dose series) Hepatitis B Vaccines (1 of 3 - 19+ 3-dose series) [facility] Start: 2012 Hepatitis C screening Hepatitis C Screening [facility] Start: 2007 Varicella vaccination Varicella Vaccines (1 of 2 - 13+ 2-dose series) [facility] Start: 2006 Depression Screening Depression Screening [facility] Start: 1995 MMR Vaccines (1 of 1 - Standard series) MMR Vaccines (1 of 1 - Standard series) [facility] Start: 1995 Varicella vaccination Varicella Vaccines (1 of 2 - 2-dose childhood series) [facility] Start: 01-08-1995 COVID-19 Vaccine (#1) COVID-19 Vaccine (#1) [facility] Start: 1994 Cyanocobalamin vitamin b-12 Vitamin B-12 [facility] Start: 1994 Hepatitis B Vaccines (1 of 3 - 3-dose series) Hepatitis B Vaccines (1 of 3 - 3-dose series) [facility] Start: 1994 HIV screening HIV Screening [facility] Start: 1994 Lipid panel Lipid Panel [facility] Start: 1994 Screening for osteoporosis Bone Density Scan [facility] Start: 1994 TB Test TB Test [facility] Start: 1994 Vitamin D25-OH Vitamin D25-OH [facility] Start: 1994 Yearly Adult Physical Yearly Adult Physical [facility] Alanine aminotransfe rase [Enzymatic activity/volume] in Serum or Plasma [facility] Albumin [Mass/volume ] in Serum or Plasma [facility] Albumin [Moles/volum e] in Serum or Plasma [facility] Work Phone: Albumin/Globulin ratio [facility] Work Phone: Alkaline phosphatase [Enzymatic [...] Different ial panel - Blood [facility] CBC W Auto Different ial panel - Blood [facility] Centromere protein B Ab [Units/volume] in Serum [facility] Work Phone: Chlamydia deoxyribon ucleic acid detection [facility] Chlamydia deoxyribon ucleic acid detection [facility] End: 01-22-2025 Chlamydia trachomatis and Neisseria gonorrhoeae DNA [Identifier] in Unspecified specimen by ALEKSEY with probe detection [facility] Area Work Phone: Comment on above: Once (Lab) for 1 Occurrences starting until 01/22/2025 End: 10-11-2024 Choriogonadotropin ( test) [Presence] in Urine POCT , urine manually resulted Point of Care Testing Routine Once (Lab) for 1 Occurrences starting 10/11/2024 until 10/11/2024 [facility] Work Phone: Comment on above: Once (Lab) for 1 Occurrences starting until 10/11/2024 End: 11-22-2024 Choriogonadotropin ( test) [Presence] in Urine POCT , urine manually resulted Point of Care Testing Routine Once (Lab) for 1 Occurrences starting 11/22/2024 until 11/22/2024 [facility] Work Phone: Comment on above: Once (Lab) for 1 Occurrences starting until 11/22/2024 Chromatin Ab [Units/ volume] in Serum or Plasma [facility] Work Phone: Clostridioides diffi cile DNA [Presence] in Unspecified specimen by ALEKSEY with probe detection [facility] Work Phone: Colonoscopy [facility] Creatinine [Mass/vol ume] in Serum or Plasma [facility] Cytomegalovirus IgG antibody measurement [facility] Work Phone: Cytomegalovirus IgM antibody assay [facility] Work Phone: Dehydroepiandrostero ne sulfate (DHEA-S) [Mass/volume] in Serum or Plasma [facility] DNA double strand Ab [Units/volume] in Serum [facility] Work Phone: Electrophoresis: [id number] [facility] Work Phone: Electrophoresis: emiliana ma globulin [facility] Work Phone: Erythrocyte mean cor puscular volume determination [facility] Erythrocyte sedimentation rate [facility] End: 02-05-2025 Estradiol (E2) [Mass/volume] in Serum or Plasma Estradiol Lab STAT Female infertility Daily (including weekends) for 8 Occurrences starting 10/08/2024 until 02/05/2025 [facility] Service Area Work Phone: Comment on above: Daily (including weekends) for 8 Occurre nces starting 10/08/2024 until 02/05/2025 End: 01-22-2025 Extra Urine Costello Tube [facility] Work Phone: Comment on above: Once for 1 Occurrences starting 01/23/20 until 01/22/2025 Fat [Mass/mass] in Stool [facility] Fat.neutral [Presenc e] in Stool [facility] Folate [Moles/volume ] in Serum or Plasma [facility] Gastrointestinal pat hogens panel - Stool by ALEKSEY with probe detection [facility] Work Phone: Giardia lamblia antigen assay [facility] Globulin measurement [facility] Work Phone: Glucose [...] for 3 Occurrences starting 10/08/2024 until 02/05/2025 [facility] Work Phone: Comment on above: Daily (including weekends) for 3 Occurre nces starting 10/08/2024 until 02/05/2025 Mean corpuscular hem oglobin concentration determination [facility] Mean corpuscular hem oglobin determination [facility] Measurement of immun oglobulin A in serum specimen [facility] Work Phone: Measurement of renal function [facility] Neutrophil count [facility] Neutrophil cytoplasm ic Ab.classic [Units/volume] in Serum [facility] Work Phone: Neutrophil percent differential count [facility] Ova and parasites id entified in Unspecified specimen by Light microscopy [facility] Work Phone: Ova OR parasites identification [facility] P-ANCA measurement [facility] Work Phone: Path report.final Dx Spec [facility] Patient referral [facility] Work Phone: Platelets [#/volume] in Blood [facility] Potassium measurement [facility] Procedure [facility] End: 02-04-2025 Progesterone [Mass/volume] in Serum or Plasma Progesterone Lab STAT Female infertility Daily (including weekends) for 3 Occurrences starting 10/07/2024 until 02/04/2025 [facility] Service Area Work Phone: Comment on above: Daily (including weekends) for 3 Occurre nces starting 10/07/2024 until 02/04/2025 End: 02-05-2025 Progesterone [Mass/volume] in Serum or Plasma Progesterone Lab STAT Female infertility Daily (including weekends) for 3 Occurrences starting 10/08/2024 until 02/05/2025 [facility] Work Phone: Comment on above: Daily (including weekends) for 3 Occurre nces starting 10/08/2024 until 02/05/2025 Prolactin [Mass/volu me] in Serum or Plasma [facility] Protein electrophore sis panel - Serum or Plasma [facility] Work Phone: Protein measurement [facility] Work Phone: Protein measurement [facility] Protein measurement [facility] Red blood cell count [facility] Red cell distributio n width determination [facility] TERRENCE US Endometrial L ining Check [facility] Endometrial Lining Check Imaging Routine Female infertility 12/15/2024 7:02 AM EDT [facility] Service Area Work Phone: TERRENCE US Pelvis Limite d Follicles - Follicle Studies Performed [facility] Pelvis Limited Follicles - Follicle Studies Performed Imaging Routine Female infertility 09/27/2024 7:51 AM EST [facility] Area Work Phone: TERRENCE US Pelvis Limite d Follicles - Follicle Studies Performed [facility] US Pelvis Limited Follicles - Follicle Studies Performed Imaging Routine Female infertility 10/09/2024 9:42 AM EST [facility] Work Phone: Rubella IgG measurement [facility] [id number]-70 extractable n uclear Ab [Units/volume] in Serum by Immunoassay [facility] Work Phone: Serologic test for syphilis [facility] Serum chloride measurement [facility] Serum protein electrophoresis [facility] Work Phone: Ferrell extractable nu clear Ab [Presence] in Serum [facility] Work Phone: Sodium measurement [facility] [place] [facility] Testosterone Free [Mass/volume] in Serum or Plasma [facility] Thyroid stimulating hormone measurement [facility] Tissue transglutamin ase IgA Ab [Units/volume] in Serum [facility] Work Phone: Total protein measurement [facility] Urea nitrogen [Mass/ volume] in Serum or Plasma [facility] End: 01-22-2025 Urinalysis complete W Reflex Culture panel - Urine [facility] Work Phone: Comment on above: Once (Lab) for 1 Occurrences starting until 01/22/[address] [facility] Pelvis transvaginal [place] [facility] Immunizations Immunization Date Immunization Notes Care Provider Fa naunpili 07-06-2023 influenza virus vaccine, unspecified formulation ERNA TROTTER MD [facility] Payers Date Payer Category Payer Self-pay [id number] 2023 [employer] [id number] 2022 Unknown [id number]. 1.13.680.2.7.3.6 [id number] 2017 Unknown [id number] 1994 Unknown [id number] 2..840.1.958941.3.579.2.627 1994 Unknown [id number] 2..840.1.373432.3.579.2.627 1994 Unknown [id number] 2.840.1.560591.3.579.2.627 1994 Unknown [id number] 2.16840.1.835243.3.579.2.627 1994 Unknown [id number] 2.16840.1.974775.3.579.2.627 1994 Unknown [id number] 2.16840.1.404976.3.579.2.1244 1994 Unknown [id number] 2.16.840.1.172398.3.579.2.1244 1994 Unknown [id number] 2.16.840.1.909694.3.579.2.1243 1994 Unknown [id number] 2.16.840.1.960674.3.579.2.1243 1994 Unknown [id number] 2.16.840.1.991667.3.579.2.1241 1994 Unknown [id number] 2.16.840.1.930055.3.579.2.1241 1994 Unknown [id number] 2.16.840.1.926107.3.579.2.1241 1994 Unknown [id number] 2.16.840.1.129323.3.579.2.1244 1994 Unknown [id number] 2.16840.1.927517.3.579.2.1244 1994 Unknown [id number] 2.16840.1.367521.3.579.2.1244 1994 Unknown [id number] 2.16840.1.461671.3.579.2.1244 1994 Unknown [id number] 2.16.840.1.229660.3.579.2.1244 1994 Unknown [id number] 2.16840.1.295192.3.579.2.1244 1994 Unknown [id number] 2.16.840.1.598566.3.579.2.1244 1994 Unknown [id number] 2.16.840.1.887236.3.579.2.1244 1994 Unknown [id number] 2.16.840.1.139200.3.579.2.1244 1994 Unknown [id number] 2.16840.1.388538.3.579.2.1244 1994 Unknown [id number] 2.16.840.1.048621.3.579.2.124 1994 Unknown [id number] 2.16.840.1.919896.3.579.2.1244 1994 Unknown [id number] 2.16.840.1.632826.3.579.2.1244 1994 Unknown [id number] 2.16.840.1.189039.3.579.2.1244 1994 Unknown [id number] 2.16.840.1.282072.3.579.2.1244 1994 Unknown [id number] 2.16.840.1.544294.3.579.2.1244 1994 Unknown [id number] 2.16840.1.254460.3.579.2.1244 1994 Unknown [id number] 2.16840.1.153200.3.579.2.1244 1994 Unknown [id number] 2.16840.1.960125.3.579.2.1244 1994 Unknown [id number] 2.16840.1.065017.3.579.2.1244 1994 Unknown [id number] 2.16840.1.283889.3.579.2.1244 1994 Unknown [id number] 2.16840.1.698314.3.579.2.1244 1994 Unknown [id number] 2.16840.1.088217.3.579.2.1244 1994 Unknown [id number] 2.16840.1.699578.3.579.2.1244 1994 Unknown [id number] 2.16.840.1.703752.3.579.2.1244 1994 Unknown [id number] 2.16840.1.278833.3.579.2.1245 1994 Unknown [id number] 2.16840.1.226103.3.579.2.1245 1994 Unknown [id number] 2.16840.1.976616.3.579.2.124 1994 Unknown [id number] 2.16840.1.162305.3.579.2.124 1994 Unknown [id number] 2.840.1.898939.3.579.2.124 1994 Unknown [id number] 2.840.1.409011.3.579.2.124 1994 Unknown [id number] 2.840.1.447867.3.579.2.627 1994 Unknown [id number] 2.0.1.446968.3.579.2.479 1994 Unknown [id number] 2.840.1.165654.3.579.2.479 1994 Unknown [id number] 2.840.1.137001.3.579.2.479 [facility] ([facility] and others) [id number] Unknown [place] [id number] Unknown [id number] Unknown R [place] [id number] Unknown [id number] 2.840.1.051309.3.579.2.462 Unknown [id number] 2.840.1.417609.3.579.2.462 Unknown [id number] 2.16.840.1.289740.3.579.2.462 Unknown [id number] .840.1.843043.3.579.2.462 Unknown [id number] 2.16840.1.294586.3.579.2.462 Unknown [id number] .16.840.1.424086.3.579.2.462 Unknown [id number] .840.1.923452.3.579.2.462 Unknown [id number] .840.1.336978.3.579.2.462 Unknown [id number] .840.1.556379.3.579.2.462 Unknown [id number] .840.1.487468.3.579.2.462 Unknown [id number] .840.1.367087.3.579.2.462 Unknown [id number] .840.1.244789.3.579.2.462 Unknown [id number] .840.1.435819.3.579.2.462 Unknown [id number] .840.1.677566.3.579.2.462 Unknown [id number] .840.1.998167.3.579.2.462 Unknown [id number] 840.1.614090.3.579.2.462 Unknown [id number] .840.1.432323.3.579.2.462 Unknown [id number] 840.1.347455.3.579.2.462 Unknown [id number] .840.1.795356.3.579.2.462 Unknown [id number] .840.1.936489.3.579.2.462 Unknown [id number] .840.1.327555.3.579.2.462 Unknown [id number] 16.840.1.239911.3.579.2.462 Social History Date Type Detail Facility Tobacco smoking status NHIS Unknown if ever smoked [facility] Work Phone: Start: 1995 Sex Assigned At Female [facility] Start: 08-03-2023 End: 12-09-2023 Tobacco smoking status RIIS Tobacco smoking consumption unknown [facility] Start: 1994 Sex Assigned At Not on file [facility] Start: 01-25-2024 End: 12-11-2024 Gender identity Not on file [facility] Start: 04-20-2023 End: 05-22-2025 Tobacco smoking status Never smoked tobacco (finding) [facility] Start: 01-25-2024 Tobacco use and exposure Smokeless tobacco non-user [facility] Work Phone: Start: 01-25-2024 End: 01-09-2025 Alcoholic beverage intake Ex-drinker (finding) [facility] Work Phone: Start: 01-25-2024 End: 12-11-2024 History of Social function [facility] Work Phone: Start: 09-30-2023 Gender identity Identifies as female gender (finding) [facility] Work Phone: Start: 09-30-2023 Sexual orientation Heterosexual (fin ding) [facility] Work Phone: Start: 01-15-2024 End: 01-25-2024 Exposure to SARS-CoV-2 (event) Unable to assess [facility] Start: 07-04-2024 End: 01-25-2025 Exposure to SARS-CoV-2 (event) Not sure [facility] NEGATED: Highlighted rowStart: MARBELLA History of tobacco use Passive smoker [facility] Work Phone: Medical Equipment Procedure Code Equipment Code Equipment Origin al Text Equipment Identifier Dates [id number], [id number] Star t: 08-18-2024 End: 11-22-2024 Goals Date Patient Goal Desired Activity /State Functional Status Date Assessment Result Facility 01-22-2025 [place] - 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 [C-SSRS] [facility] Work Phone: 08-27-2023 Functional Status Awake, Up to bathroom [facility] 08-27-2023 Functional Status bilateral knee high applied/on [facility] 08-27-2023 Functional Status Maintained [facility] spital [facility] 08-13-2023 Functional Status Sensory Deficits None A [facility] Mental Status Date Assessment Result Facility 10-01-2023 Cognitive function Level Of Cons ciousness Follows Commands;Drowsy [facility] Work Phone: 10-01-2023 Cognitive function Voice/Name [facility] Work Phone: 08-27-2023 Mental Status Oriented x 4 [facility] 08-27-2023 Mental Status [facility] Clinical Notes 04-05-2023 to 05-21-2025 Note Date & Type Note Facility 05-21-2025 Progress note [facility] 05-21-2025 Progress note Note Date/Time May 21, 2025 3:38pm [facility] Gastroenterology [address] [place] [address] OFFICE VISIT Date of Service: 05/21/25 MR#: [id number] Acct: [id number] Name: MARIXA AMOS Rep #: [id number] : 1995 Provider: DERRICK Sarabia Age/Sex: 29/F Location: [facility] Status: Signed Intake Vital Signs 03/09/25 [...] FU Chronic Gerd Chief Complaint: UC flare Regulatory Associate Required: No Accompanied by: Self Is patient [...] house current occupational status: employed current occupation: [place] current occupational exposures/hazards: No pets and animals: [...] 3-4 times per week duration: 45-60 minutes/day cathy/sabianism: None seatbelt use: always do you feel safe at home: Yes 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 While?budesonide?may be considered safer for bngz-up-kpkqnkbo flares with fewer side effects, itis less [...] which limits exposure. While?budesonide?may beconsidered safer for ggsp-mj-kfbzievd flares with fewer side effects, it is [...] following with MFM - Dr. Carbajal at [facility] - reports Dr. 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 06/21/25 Referrals Gastroenterology D64.9 - Anemia, unspecified, K51.50 - Left sided colitis without complications Plan 29-year-old female with a history of ulcerative colitis diagnosed in 2015; currently 24 weeks following IVF implantation on 12/26/2024. She transition to [facility] in March 2022 after discontinuing Humira. She [...] She was seen at [facility] ([facility]) in [place] on 05/10/2025. I reviewed with Dr. Weaver and we have discussed referral to IBD specialist. She has already established with [facility] in [place] and wishes to continue her IBD care [...] Avalos. Patient Instructions: Follow-up with Dr. Avalos [phone]. Ustekinumab level 06/21/2025. Coding Level of Care Code Off vis,est,level 4 Diagnoses Anemia D64.9 Ulcerative colitis, left sided K51.50 Clinical Quality Measures Smoking Screening Smoking Status: Never smoker 05/23/25 1412 <Electronically signed by Marcia MEZA> Date _ Marcia MEZA Cosigner Signature: Date (if applicable) CC: ~ [facility] Work Phone: 1(584) 616-285609-12-2025 Progress [facility]'[address], [address] [place] [id number] OFFICE VISIT Date of Service: 05/11/25 MR#: [id number] Acct: [id number] Name: MARIXA AMOS Rep #: [id number] : 1995 Provider: STEFANIE Lo Age/Sex: 29/F Location: [facility] Status: Signed Intake Vital Signs 05/01/25 14:59 05/11/25 13:52 Height 5 ft 3 in 5 ft 3 in Weight: 201 lb 6 oz BMI 35.6 BP 130/86 H Intake Visit Reasons: FHT check, spotting Chief Complaint: FHT Check, Spotting Regulatory Associate Required: No Is patient in pain?: No [...] mg-folate no.1 1 mg-dha 300 mg capsule (PNV-Limestone) famotidine 40 mg tablet 40 mg PO BID PRN 05/11/25 H istory mesalamine 1,000 mg rectal 1,000 mg SC QHS 05/11/25 History suppository (Canasa) prednisone 10 [...] 3-4 times per week duration: 45-60 minutes/day cathy/sabianism: None seatbelt use: always do you feel safe at home: Yes 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 [facility] [place] wed[place]. 05/11/25 -?-?-?-?-?-?-?-?-?-?-?-?- 22w 1d 201 lb 6 oz (+16 lb 6 oz) 130/86 Negative -?-?-?--?-?-?-?-?-?-?-?-?- Negative 147 22 -?-?-?-?-?-?-?-?-?-?-?-?- KW- work in for vaginal bleeding/no cramping. +fm. Had UC flair and was trying to get in to see friend. Office never called back per pt so she found new provider in [place] and wasplaced on other medications. Also saw [...] Cosigner Signature: Date (if applicable) CC: ~ [facility]09-12-2025 Progress note Author Iesha Lo [facility] Note Date/Time May 11, 2025 2:14pm [facility] [address], [address] [place] [address] OFFICE VISIT Date of Service: 05/11/25 MR#: [id number] Acct: [id number] Name: MARIXA AMOS Rep #: [id number] : 1995 Provider: STEFANIE Lo Age/Sex: 29/F Location: [facility] Status: Signed Intake Vital Signs 05/01/25 14:59 05/11/25 13:52 Height 5 ft 3 in 5 ft 3 in Weight: 201 lb 6 oz BMI 35.6 BP 130/86 H Intake Visit Reasons: FHT check, spotting Chief Complaint: FHT Check, Spotting Regulatory Associate Required: No Is patient in pain?: No [...] mg-folate no.1 1 mg-dha 300 mg capsule (PNV-Limestone) famotidine 40 mg tablet 40 mg PO BID PRN 05/11/25 H istory mesalamine 1,000 mg rectal 1,000 mg SC QHS 05/11/25 History suppository (Canasa) prednisone 10 [...] 3-4 times per week duration: 45-60 minutes/day cathy/sabianism: None seatbelt use: always do you feel safe at home: Yes 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 Also [...] and Symptoms of Preeclampsia, Feeding No , [place] Education and Family Medical Leave or Disability [...] reports dx, pt of Dr. Ogden. needs [facility] consult. (2) resulting from in vitro [...] this visit. GA appropriate handout given. 05/11/25 9558 <Electronically signed by Iesha das CNM> Date _ Iesha Lo CNM Cosign Signature: Date (if applicable) CC: ~ [facility] Work Phone: 1(860) 485-253509-02-2025 Progress [facility] [address], [address] [place], [place] [id number] OFFICE VISIT Date of Service: 05/01/25 MR#: [id number] Acct: [id number] Name: MARIXA AMOS Rep #: [id number] : 1995 Provider: Dr. 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 took [facility] wednesday. ACOG First Trimester First Trimester: Desire [...] and Symptoms of Preeclampsia, Feeding No , [employer] [place] [employer] and Family Medical Leave or Disability [...] Cosign Signature: Date (if applicable) CC: ~ [facility] [id number] Progress note Author Carmen Lugo [facility] Note Date/Time May 01, 2025 3:19pm [facility] [address] [place] [address], [address] [place] [address] OFFICE VISIT Date of Service: 05/01/25 MR#: [id number] Acct: [id number] Name: MARIXA AMSO Rep #: [id number] : 1995 Provider: Dr. 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 Date Name GA/Weeks Outcome Route Bth Weight Gen Labor Lgth Anesthesia [facility] Provider FOB Unknown 07/2023-Julio 20 [...] and needs to get MFM cosult. took [facility] wednesday. ACOG First Trimester First Trimester: [...] Comment: Pt reports dx, pt of on [facility] [place]. needs MFM consult. (2) resulting from in [...] Cosigner Signature: Date (if applicable) CC: ~ [facility] Work Phone: [phone]) 774-741506-27-2025 Progress [facility] [address] [place] [address], [address] [place] [address] OFFICE VISIT Date of Service: 02/23/25 MR#: [id number] Acct: [id number] Name: MARIXA AMOS Rep #: [id number] : 1995 Provider: Dr. 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06-10-2025 Progress [facility] [address] [place] [address], [address] [place] [address] OFFICE VISIT Date of Service: 02/06/25 MR#: [id number] Acct: [id number] Name: MARIXA AMOS Rep #: [id number] : 1995 Provider: STEFANIE Lo Age/Sex: 29/F Location: [facility] Status: Signed Intake Vital Signs 07/12/24 08:32 02/02/25 15:25 02/06/25 08:17 Height 5 ft 3 in 5 ft 3 in 5 ft 3 in Weight: 185 lb 8 oz BMI 32.8 BP 118/70 Intake Visit Reasons: *EST* NOB IVF 12/26, GIL 09/13/25 Regulatory Associate Required: No Is patient in pain?: No [...] mg-folate no.1 1 mg-dha 300 mg capsule (PNV-Limestone) prednisone 10 mg tablet 10 mg PO [...] 3-4 times per week duration: 45-60 minutes/day cathy/sabianism: None seatbelt use: always do you feel safe at home: Yes 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06-06-2025 Evaluation note* Diagnosis Onset Date Resolution [...] left sided acute May 21, 2025 2:37pm [facility] Work Phone: [phone]) 167-410306-06-2025 Evaluation note* Diagnosis Onset Date Resolution Status [...] Ulcerative colitis chronic Octobe r 2024 2:38pm [facility] Work Phone: [phone]) 740-590706-06-2025 Progress [facility] [address] [place] [address], [address] [place] [address] OFFICE VISIT Date of Service: 02/02/25 MR#: [id number] Acct: [id number] Name: MARIXA AMOS Rep #: [id number] : 1995 Provider: STEFANIE Allen Age/Sex: 29/F Location: [facility] Status: Signed Intake Vital Signs 01/25/25 14:45 02/02/25 15:25 Height 5 ft 3 in 5 ft 3 in Weight: 184 lb 8 oz 186 lb 4 oz BMI 32.6 33.0 BP 128/62 H 143/86 H Blood Pressure Location Rt brachial Position Sitting Intake Visit Reasons: fu early spotting per Regulatory Associate Required: No Is patient in pain?: No [...] mg-folate no.1 1 mg-dha 300 mg capsule (PNV-Limestone) prednisone 10 mg tablet 10 mg PO [...] 3-4 times per week duration: 45-60 minutes/day cathy/sabianism: None seatbelt use: always do you feel safe at home: Yes 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06-06-2025 Progress note Author Mary Beth Allen [facility] Note Date/Time February 02, 2025 4:09p [facility] [address], [address] [place] [address] OFFICE VISIT Date of Service: 02/02/25 MR#: [id number] Acct: [id number] Name: MARIXA AMOS Rep #: [id number] : 1995 Provider: STEFANIE Allen Age/Sex: 29/F Location: [facility] Status: Signed Intake Vital Signs 01/25/25 14:45 02/02/25 15:25 Height 5 ft 3 in 5 ft 3 in Weight: 184 lb 8 oz 186 lb 4 oz BMI 32.6 33.0 BP 128/62 H 143/86 H Blood Pressure Location Rt brachial Position Sitting Intake Visit Reasons: fu early spotting per Regulatory Associate Required: No Is patient in pain?: No [...] mg-folate no.1 1 mg-dha 300 mg capsule (PNV-Limestone) prednisone 10 mg tablet 10 mg PO QDAY 01/26/2502/02 History progesterone oil 75 mg IM QHS 01/26/25 History Post menopausal: No [facility] : Yes [facility] Obesity (BMI 30.0-34.9) Other obesity [...] 3-4 times per week duration: 45-60 minutes/day cathy/sabianism: None seatbelt use: always do you feel safe at home: Yes 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 Will see [facility] [place], [place] on 01-26-2025. Will provide recommendations if [...] CNP 01/25/25 2:50 PM [facility] Phone: [phone]) [phone] Physician Emergency department Note* ISAURA Daniel - [...] vomiting. 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 Details: See [facility] Procedure Procedures [1] Past Medical History: [...] issues at this time. documented in [facility] Work Phone: [phone]) [phone] Emergency department Triage note* Candi Kurtz RN - 01/22/2025 11:13 AM EDT Patient to ED for vaginal discharge. Patient reports being 6 weeks and noticed brown odorless discharge on Wednesday. Patient also reporting lower back pain. Patient denies any urinary issues at this time. [facility] Work Phone: [phone]) 536-554005-05-2025 Evaluation note* Diagnosis Onset Date Resolution Status Admit Date Chronic GERD chronic January 01 7:22am Ulcerative colitis chronic December h2024 7:22am [facility] Work Phone: [phone] Evaluation note* Diagnosis Onset Date Resolution Status Admit Date Chronic GERD chronic January 01 7:22am Ulcerative colitis chronic December h2024 7:22am Amenorrhea acute January 26, 2025 12:46pm Subchorionic hematoma in fir st trimester acute February 02, 2025 3 :00pm [facility] Work Phone: [phone] Evaluation note* Diagnosis Onset Date Resolution Status [...] 8:12am Ulcerative colitis chronic January 282024 8:12am [facility] Work Phone: [phone] Evaluation note* Diagnosis Onset Date Resolution Status [...] 10:46am Ulcerative colitis chronic January 292024 10:46am [facility] Work Phone: [phone] Evaluation note* Diagnosis Onset Date Resolution Status [...] 11:16am Ulcerative colitis chronic February 272024 11:16am [facility] Work Phone: [phone] Evaluation note* Diagnosis Onset Date Resolution Status [...] Ulcerative colitis chronic April 06, 2025 12:46pm [facility] Work Phone: [phone] Evaluation note* Diagnosis Onset Date Resolution Status [...] 025 2:53pm Ulcerative colitis chronic 2025 2:53pm [facility] Work Phone: [phone] History of Present illness Narrative* Gavino Tristan [...] Preop diagnosis: Infertility Post op diagnosis: Same Senior Controls Analyst: Dr. Holder Depth: 7 cm Curve: anterior [...] Tristan 12/26/24 11:35 AM documented in this [facility]Bl[facility] Work Phone: [phone] Hospital Discharge instructions* Discharge Instructions* Sarah Bansal RN - 12/26/2024 10:41 AM EDT Images from the original note were not included. [facility] [address] [place] [address] Home Going Instructions after Embryo Transfer: After [...] in : Advil, Motrin, Ibuprofen, Aleve, Excedrin, Michelle-Staunton, Sudafed, and Pepto-Bismol. Avoid aspirin unless you [...] SARAH BANSAL 10:41 AM documented in this [facility] Work Phone: [phone]) [phone] History of Present illness Narrative* Anabell Rogel MD - 12/20/2024 1:00 PM EDT Lg Amos is a 29 y.o. female who presents for the following: Wart (Right 3rd toe plantar wart-pt states was treated with ln2 at [facility]. ). Review of Systems: No other [...] Anabell Rogel MD 12/20/2024 documented [facility] Work Phone: 1([phone]) 466-127804-18-2025 History of Present illness Narrative* Amy Cherry [...] - Amy Cherry RN documented in this encounterUnWex[facility] Work Phone: [phone]) [phone] Evaluation + Plan note* Assessment & Plan Note - Denise Ordonez MD - 12/11/2024 2:30 PM EDTAssociated Problem(s): Polycystic ovarian disease She is following with gynecology. [facility] Work Phone: [phone]) [phone] Evaluation + Plan note* Assessment & Plan Note - Denise Ordonez MD - 12/11/2024 2:30 PM EDTAssociated Problem(s): Crohn's disease of colon without complication (Multi) She is following with gastroenterology. [facility] Work Phone: [phone] History of Present illness Narrative* Denise Ordonez [...] is following with gastroenterology. documented in this [facility]UnW[facility] Work Phone: [phone] Miscellaneous Notes* Assessment & Plan Note - Denise Ordonez MD - 12/11/2024 2:30 PM EDTAssociated Problem(s): Polycystic ovarian disease She is following with gynecology. * Assessment & Plan Note - Denise Ordonez MD - 12/11/2024 2:30 PM EDTAssociated Problem(s): Crohn's disease of colon without complication (Multi) She is following with gastroenterology. documented in this encounterUnW[facility] Work Phone: [phone]) [phone] Nurse Note* Michaelle López RN - 11/22/2024 11:20 AM EDT Patient discharged to home in stable condition via wheelchair to RIDE HOME: Partner's car. Discharge instructions given and concerns addressed. [facility] Work Phone: [phone] Nurse Note* Michaelle López RN - 11/22/2024 11:20 AM EDT Patient discharged to home in stable condition via wheelchair to RIDE HOME: Partner's car. Discharge instructions given and concerns addressed. documented in this encounterUnW[facility] Work Phone: [phone]) 374-809203-26-2025 History of Present illness Narrative* Henrietta Herndon MD - 11/22/2024 10:00 AM EDTAssociated Order(s): Egg Retrieval Pre-Procedure Diagnose(s): Encounter for assisted reproductive fertility cycle Post-Procedure Diagnose(s): Encounter for assisted reproductive fertility cycle Patient ID: Marixa Amos is a 29 y.o. female. Egg Retrieval Date/Time: 11/22/2024 10:15 AM Performed by: Henrietta Herndon MD Authorized by: Katelyn Benitez APRN-APPLICATOR SPRAYER Consent: Consent obtained: Verbal and written Consent [...] diagnosis: Female infertility Post op diagnosis: Same Senior Controls Analyst: Leslie IV Fluids: 700 cc EBL: 5 cc UOP: Not recorded Specimen: Oocytes Complications: None Number of Oocytes right ovary: 14 Ovarian acc ss (right): Easy Number of Oocytes left ovary: 9 Ovarian access (left): Easy Endometrial thickness: TL Needle type: Single Additional notes: I was present and supervised the entire procedure. Henrietta Herndon 11/22/24 10:16 AM documented in this [facility]Bl[facility] Work Phone: [phone] Hospital Discharge instructions* Discharge Instructions* Sarah Bansal RN - 11/22/2024 8:38 AM EDT Images from the original note were not included. [facility] [address]. [place] [id number] Home Going Instructions after Egg Retrieval: Activity: [...] 2 weeks following your oocyte retrieval. Call [phone] to speak with a Physician or Nurse if you have any concerns. SARAH BANSAL 8:38 AM [facility] [address]. [place], [place] IVF LAB EMBRYO UPDATE PROTOCOL The [...] biopsied and frozen. SARAH BANSAL 8:38 AM [facility] [address]. [place] [address] Frozen Embryo Transfer Instructions After your egg retrieval, follow up with your IVF nurse within 3-4 days Wednesday- Wednesday regarding theplan for your frozen embryo transfer (FET) cycle. Your IVF nurse will order and review with you themedications you will be using for the cycle. You will be sent an email from [employer] to fill out your Frozen Embryo Treatment [...] BANSAL RN 8:38 AM documented in this [facility] Work Phone: [phone]) 399-864903-24-2025 History of Present illness Narrative* Amy Cherry [...] ask you to either come here to [facility] or a [facility] lab attached to a [facility]. If you go to a standing lab we cannot guarantee we would get your results in a timely manner! Please see trigger shot and retrieval day instructions below! Your retrieval will fall on Wednesday 11/22 at 10:00 AM but please arrive 1 hr early, getting here at 9:00 AM! Patient to go to [facility] tomorrow for post trigger labs and yearly labs/STDs. Patient aware to hold Metformin will also hold Omeprazole (only takes as needed) starting tomorrow evening. Lab reqs to be printed and placed at hotel front office manager. 11/20/24 at 2:19 PM - Amy Cherry RN [facility] Phone: 1(476) 937-747003-22-2025 History of Present illness Narrative* Imelda Cali [...] Cali 11/18/2024 10:08 AM documented in this [facility]Bl[facility] Work Phone: 1(332) 736-103803-20-2025 History of Present illness Narrative* Mikhail Ascencio [...] monitoring. Patient agreeable. [facility]. Detailed MyChart sent as well. 11/16/24 at 1:54 PM - Mikhail Ascencio RN documented in this encounterBl[facility] Work Phone: 1([phone]) 230-850303-18-2025 History of Present illness Narrative* Amy Cherry [...] and will RTC . Patient transferred to hotel front office manager. 11/14/24 at 1:36 PM - Amy Cherry RN documented in this encounterBl[facility] Work Phone: [phone]) 101-611903-12-2025 History of Present illness Narrative* Amy Cherry [...] of vials confirmed: 2 on 11/08/24 at [facility] Component Latest Ref Rng 11/08/2024 WBC [...] visit. Amy Cherry 11/08/2024 9:35 AM Henrietta eHrndon 11/08/24 2:07 PM Telephone call made to patient with MD plan. Patient aware of plan and detailed MyChart sent to patient. Patient transferred to hotel front office manager to schedule for Wednesday. 11/08/24 at 3:18 PM - Amy Cherry RN [facility] Work Phone: [phone]) 387-133502-12-2025 Nurse Note* Pao Beard RN - 10/11/2024 10:55 AM EST Patient discharged to home in stable condition via wheelchair to RIDE HOME: Partner's car. VSS at time of discharge. Discharge instructions given and concerns addressed. Pao Beard RN 10/11/24 11:13 AM [facility] Work Phone: [phone]) 986-190502-12-2025 Nurse Note* Pao Beard RN - 10/11/2024 10:55 AM EST Patient discharged to home in stable condition via wheelchair to RIDE HOME: Partner's car. VSS at time of discharge. Discharge instructions given and concerns addressed. Pao Beard RN 10/11/24 11:13 AM [facility] in [facility]Un[facility] Work Phone: 1(156) 794-907502-12-2025 Nurse Note* Pao Beard RN - 10/11/2024 10:55 AM EST Patient discharged to home in stable condition via wheelchair to RIDE HOME: Partner's car. VSS at time of discharge. Discharge instructions given and concerns addressed. Pao Beard RN 10/11/24 11:13 AM documented in this [facility]Un[facility] Work Phone: [phone] 115-824502-12-2025 History of Present illness Narrative* Henrietta Herndon MD - 10/11/2024 9:15 AM ESTAssociated Order(s): Egg Retrieval Pre-Procedure Diagnose(s): Encounter for assisted reproductive fertility cycle Post-Procedure Diagnose(s): Encounter for assisted reproductive fertility cycle Patient ID: Marixa Amos is a 29 y.o. female. Egg Retrieval Date/Time: 10/11/2024 9:41 AM Performed by: Henrietta Herndon MD Authorized by: Katelyn Benitez APRN-APPLICATOR SPRAYER Consent: Consent obtained: Verbal and written Consent [...] Follicle present Pt. post-ovulatory: No Speculum type: Luara Retrieval method: transvaginal Needle inserted: Yes Ovaries aspirated: Yes Free fluid in pelvis: No Post-procedure: Patient tolerated procedure well: yes Comments: Preop diagnosis: Female infertility Post op diagnosis: Same Senior Controls Analyst: Leslie IV Fluids: 300 cc EBL: 5 cc UOP: Not recorded Specimen: Oocytes Complications: None Number of Oocytes right ovary: 16 Ovarian access (right): Easy Number of Oocytes left ovary: 9 Ovarian access (left): Easy Endometrial thickness: Tl Needle type: Single Additional notes: I was present and supervised the entire procedure. Henrietta Herndon 10/11/24 9:42 AM documented in this encounterBl[facility] Work Phone: [phone]) 401-203602-12-2025 History of Present illness Narrative* Henrietta Herndon MD - 10/11/2024 9:15 AM ESTAssociated Order(s): Egg Retrieval Pre-Procedure Diagnose(s): Encounter for assisted reproductive fertility cycle Post-Procedure Diagnose(s): Encounter for assisted reproductive fertility cycle Patient ID: Marixa Amos is a 29 y.o. female. Egg Retrieval Date/Time: 10/11/2024 9:41 AM Performed by: Henrietta Herndon MD Authorized by: Katelyn Benitez APRN-APPLICATOR SPRAYER Consent: Consent obtained: Verbal and written Consent [...] diagnosis: Female infertility Post op diagnosis: Same Senior Controls Analyst: Leslie IV Fluids: 300 cc EBL: 5 cc UOP: Not recorded Specimen: Oocytes Complications: None Number of Oocytes right ovary: 16 Ovarian access (right): Easy Number of Oocytes left ovary: 9 Ovarian access (left): Easy Endometrial thickness: Tl Needle type: Single Additional notes: I was present and supervised the entire procedure. Henrietta Herndon 10/11/24 9:42 AM documented in this encounterUnWex[facility] Work Phone: [phone]) 337-306602-12-2025 Miscellaneous Notes* Addendum Note - Pao Beard RN - 10/11/2024 9:15 AM ESTEncounter addended by: Pao Beard RN on: 10/11/2024 2:38 PM Actions taken: MAR administration accepted documented in this encounterBl[facility] Work Phone: [phone]) 452-817002-12-2025 Note* Addendum Note - Pao Beard RN - 10/11/2024 9:15 AM ESTEncounter addended by: Pao Beard RN on: 10/11/2024 2:38 PM Actions taken: MAR administration accepted [facility] Work Phone: 1([phone]) [phone] Hospital Discharge instructions* Discharge Instructions* Pao Beard RN - 10/11/2024 7:49 AM EST Images from the original note were not included. [facility] [address] [place] [address] Home Going Instructions after Egg Retrieval: Activity: [...] 2 weeks following your oocyte retrieval. Call [phone] to speak with a Physician or Nurse if you have any concerns. Pao Beard 9:11 AM [facility] [address]. [place], [place] IVF LAB EMBRYO UPDATE PROTOCOL The [...] biopsied and frozen. Pao Beard 9:11 AM [facility] [address] [place] [address] Frozen Embryo Transfer Instructions After your egg retrieval, follow up with your IVF nurse within 3-4 days Wednesday- Wednesday regarding theplan for your frozen embryo transfer (FET) cycle. Your IVF nurse will order and review with you themedications you will be using for the cycle. You will be sent an email from [employer] to fill out your Frozen Embryo Treatment [...] Beard RN 9:10 AM documented in this [facility] Work Phone: [phone] 786-281502-10-2025 History of Present illness Narrative* Mikhail Ascencio [...] get post trigger labs drawn tomorrow at [facility] lab. Patient to beginCabergoline 0.5mg x8days. Trigger and trigger day instructions given over the phone and sent via treadalong for reference. Patient agreeable. Will add patient to [facility] tomorrow for review. 10/09/24 at 3:01 PM - Mikhail Ascencio RN documented in this [facility] Work Phone: 1(309) 325-596102-09-2025 History of Present illness Narrative* Lisbeth Spencer [...] Arrive 60 minutes prior to procedure at [place] [address]. Patient verbalizes understanding of plan and location [...] Holder 10/08/24 1:16 PM documented in this encounterBl[facility] Work Phone: 1([phone]) 448-505202-08-2025 History of Present illness Narrative* Lisbeth Spencer [...] and plan. Lisbeth Spencer 10/07/2024 8:53 AM [employer] message sent with plan. Lisbeth Spencer 10/07/24 12:05 PM documented in this encounterBl[facility] Work Phone: 1([phone]) 329-808002-06-2025 History of Present illness Narrative* Mikhail Ascencio [...] monitoring. Patient agreeable. [facility]. 10/05/24 at 1:23 PM - Mikhail Ascencio RN documented in this encounterBlanchard [facility] Work Phone: [phone]) 949-883101-29-2025 History of Present illness Narrative* Mikhail Ascencio RN - 09/27/2024 8:45 AM EST IVF NURSE CONSULT Here for IVF Nurse consult. Tentative Calendar given and reviewed. Yes Meds have been ordered from: [facility] Patient aware that plan is [...] Ascencio 09/27/2024 9:11 AM documented in this encounterBlanchard [facility] Work Phone: 1([phone]) 214-967901-29-2025 History of Present illness Narrative* Mikhail Ascencio RN - 09/27/2024 8:15 AM EST MUKESH NOTE - IVF STIM BASELINE Patient presents for baseline ultrasound and/or labs. Treatment protocol: ANT FSH 150 and menopur 75 Trigger plan: HCG vs Lupron Lead in: OCP Start date for lead in: 09/10 Last estrace/OCP date: 09/26 PGT-A/M? Yes; Req Sent: Yes; PGT-M Test Ready: No ; [place]: Identified PGT order scanned into [email or web address], confirmed by: on 09/27 (scanned in to media tab on 07/18/24) Plan to freeze: embryos [employer] forms/out waiver complete: Yes Does patient have medications onhand? Yes Pharmacy: [facility] pass signed off: Yes CBC [...] monitoring. Patient agreeable. [facility]. [facility] [employer] sent to patient with plan and tentative calendar for reference. 09/27/24 at 1:34 PM - Mikhail Ascencio RN documented in this [facility] Work Phone: 1([phone]) 185-253612-16-2024 History of Present illness Narrative* Hilary Holder [...] yes Risks discussed: Bleeding, infection and pain [place] protocol: Procedure explained and questions answered to [...] diagnosis: fertility testing Post op diagnosis: Same Senior Controls Analyst: Fellow Anesthesia: None IV: None EBL: 3 [...] well, no immediate complications documented in this [facility] Work Phone: [phone]) 907-666411-15-2024 History of Present illness Narrative* Imelda Pollard [...] See scanned record. 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 Treatment to date: Fertility [...] mouth 2 times a day before meals. 6-VZCA-TURLG ACID-OM3 ORAL Take 1 capsule by mouth [...] an insemination (IUI) this cycle. - [facility] [phone] - [place] [phone] Ovulation predictor kits test for LH hormone [...] Pollard 07/14/2024 1:48 PM documented in this [facility] Work Phone: [phone]) 786-947805-28-2024 History of Present illness Narrative* Sarah Billingsley Srinivas, PLAN COORDINATOR-APPLICATOR SPRAYER - 01/25/2024 11:15 AM EDT Virtual or [...] See scanned record. 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 Treatment to date: Fertility [...] mouth 2 times a day before meals. 8-SYEL-KJEKI ACID-OM3 ORAL Take 1 capsule by mouth [...] an insemination (IUI) this cycle. - [facility] [phone] - [place] [phone] Ovulation predictor kits test for LH hormone [...] year Rubella/Varicella Within 5 years BMI Testing [facility] CBC Within 1 year CMP [...] Espino 01/25/2024 11:20 AM documented in this encounterBlanchard Valley [facility] Work Phone: 1(262) 148-290804-11-2024 NotePap Smear Specimen AdequacyApril 2023 3:45pmComment.Satisfactory for evaluation. Endocervical and/or squamous metaplasticcells (endocervical component)are present.[facility] INTERFACED A#[id number] HospitalComment on above:Satisfactory for evaluation. Endocervical and/or squamous metaplasticcells (endocervical component)are present.10-01-2023 Procedure [facility] 10-01-2023 Procedure [facility]02-02-[facility] 08-27-2023 Hospital Discharge instructions Patient [...] what activities are safe for you. Take vskn-ufh-ctdxmhh and prescription medicines only as told by [...] 11/22/2001 Document Revised: 08/19/2018 Document Reviewed: 04/01/2018 [employer] Patient Education 2020 nivio. 08/27/2023 13:15:43 Nausea and Vomiting, Adult Nausea [...] water added (diluted fruit juice). Eat bland, egfa-wg-vsdltm foods in small amounts as you are able. These foods include bananas, applesauce, rice, lean meats, toast, and crackers. Avoid fluids that contain a lot of sugar or caffeine, such as energy drinks, sports drinks, and soda. Avoid alcohol. Avoid spicy or fatty foods. General instructions Take caaq-oll-ejxorag and prescription medicines only as told by your health care provider. Drink enough fluid to keep your urine pale yellow. Wash your hands often using soap and water. If soap and water are not available, use hand funeral arrangement director. Make sure that all people in your [...] eating and drinking to prevent dehydration. Take sgcn-ayu-hrpzprw and prescription medicines only as told by [...] 08/16/2006 Document Revised: 12/08/2019 Document Reviewed: 01/24/2019 [employer] Patient Education 2020 nivio. 08/27/2023 13:15:03 Endometrial Ablation, Care After Endometrial [...] are safe for you. General instructions Take xlcj-vqg-tznmeuy and prescription medicines only as told by [...] 06/28/2018 Document Revised: 12/07/2019 Document Reviewed: 06/28/2018 [employer] Patient Education 2020 nivio. 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 You may take cqyz-uui-qxcbvvvvtjl medication if you no longer need your prescribed pain medication. Ljac-qsn-tztklbo pain medications are Tylenol (acetaminophen) or Advil (ibuprofen). Do not take Tylenol if you are still taking [place] or Percocet. They are the same type [...] 08/02/2023 10:09:45 With:ERNA TROTTER MD Address: [address] [address] [phone] When:Within 2 Week(s) [facility] 12-29-2023 Note Discharge Instructions Thank you for allowing [facility] to assist you with your healthcare needs. The following is importantdischarge information regarding your hospital visit. Your Care Team CATRACHITO MERCEDES MD Your Diagnosis Crohn's disease Family history of endometriosis Female infertility Postoperative pain What to do next Follow Up Appointments Follow Up with ERNA TROTTER MD When In 2 weeks Where: [address] [facility] [address] [place], [place] [id number] [phone] The Following Activity and Diet Have Been [...] Duration: 14 Days Refills: 1 Pickup at [facility] #[id number] New acetaminophen-oxyCODONE (Percocet 5 mg-325 mg oral tablet) 1 tab(s) by mouth Every 4 hours as needed for for pain Postoperative pain Duration: 7 Days Pickup at [facility] #[id number] New ibuprofen (ibuprofen 800 mg oral tablet) 1 tab(s) by mouth Every 8 hours Duration: [facility] New ondansetron (Zofran 4 mg oral tablet) 1 tab(s) by mouth Every 6 hours as needed for Nausea/Vomiting Duration: 5 Days Pickup at [facility] #50213 Unchanged cholecalciferol (Vitamin D3) 25 Microgram by [...] Milliliter Subcutaneous Every 8 weeks Pharmacy Information [facility] #[id number]: [address] [place], [place] [phone] Please take this list to your next [...] what activities are safe for you. Take wokf-jam-mzaxujw and prescription medicines only as told by [...] 11/22/2001 Document Revised: 08/19/2018 Document Reviewed: 04/01/2018 [employer] Patient Education 2020 [employer] Inc. Nausea and Vomiting, Adult Nausea is [...] water added (diluted fruit juice). Eat bland, chhi-du-veqllr foods in small amounts as you are able. These foods include bananas, applesauce, rice, lean meats, toast, and crackers. Avoid fluids that contain a lot of sugar or caffeine, such as energy drinks, sports drinks, and soda. Avoid alcohol. Avoid spicy or fatty foods. General instructions Take rakq-ioh-ztbgbcm and prescription medicines only as told by your health care provider. Drink enough fluid to keep your urine pale yellow. Wash your hands often using soap and water. If soap and water are not available, use hand funeral arrangement director. Make sure that all people in your [...] eating and drinking to prevent dehydration. Take hgug-yyh-xgtyqgd and prescription medicines only as told by [...] 08/16/2006 Document Revised: 12/08/2019 Document Reviewed: 01/24/2019 [employer] Patient Education 2020 nivio. Endometrial Ablation, Care After This sheet gives [...] are safe for you. General instructions Take nbfl-jfq-fiyzeej and prescription medicines only as told by [...] 06/28/2018 Document Revised: 12/07/2019 Document Reviewed: 06/28/2018 [employer] Patient Education 2020 [employer] Inc. What to Do After Your Gynecology [...] as your pain allows. You may take nvmq-jph-osfvghfkirx medication if you no longer need your prescribed pain medication. Vqki-pju-tvkfbjt pain medications are Tylenol (acetaminophen) or Advil (ibuprofen). Do not take Tylenol if you are still taking [place] or Percocet. They are the same type [...] it can visit one of [facility] vaccine clinics. There are many vaccine clinic locations within the [facility]. For locations and available times, please visit [email or web address].[place].gov/. It is important to note that some COVID mobile vaccine clinics are held outdoors and may be canceled in rainy or stormy conditions. To learn more about pediatric vaccinations (ages 5-11), we invite you to visit the [facility] webpage. https://www.[email or web address]/pages/[email or web address]-Bcfdo-Amlgdkzhwkg-Raqiaavdbx-Gmdie-Pbx stions.htmlTo learn more about the COVID-19 vaccine, we invite you to visit the CDC website for a list of frequently asked questions.https://www.cdc.gov/coronavirus/2019-ncov/vaccines/faq.html [facility] Patient Portal Access Instructions: Stay connected with your healthcare team and access your personal medical information anytime with the [facility] Patient Portal. Please follow the directions below to create your [facility] account: 1.Access the email account you provided upon registration to the hospital/physician office.2.Look for an invitation email from [facility].3.Open the email and access the invitation link: AcceptInvitation to [facility].4.Fill in the required barnes to create your account. To access your account, visit [email or web address]. Click the blue button labeled Access Patient Portal and then log in with the username and password that you created in the steps above. You will be able to view your test results, lab results, a summary of your visits, upcoming appointments and more. There is also a convenient messaging option where you can send secure messages to your p [employer] [employer]. In addition, you will have the ability to download any documents or summaries to your computer and/or send the information securely to a physician. Remember that your healthcare information is confidential, so carefully consider who you will allowto register on the [facility] Patient Portal for access to your information. You can also access the [facility] Patient Portal on the [facility] nancie. Simply click on Patient Portal and then log into your account. If you would like to receive a full copy of your medical records, please contact the [facility] Medical Records Department by calling [phone], Wednesday through Wednesday between 8 a.m. and [...] Call your local pharmacy or go to http://bit.HereOrThere/4R3Kn9k to find one close to you.3.Make use of household items: Use cat litter or old coffee grounds to dispose medications if other options arenot available. Mix your drugs with these household products, seal them in an airtight container andthrow it into the garbage. 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 I have received a written copy of the plan/instructions. If I have questions, I am aware that I should contact my doctor. 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: Date/Time: Relationship to Patient: Witness Name/Signature: Date/Time: [facility]12-29-2023 Note Date of Service 08/27/23 History and [...] ERNA TROTTER MD on 08/27/2023 11:50 AM [facility]12-29-2023 Anesthesiology Consult note Patient: MARIXA BRAGA Age: 28 years Sex: Female : 1995 Associated Diagnoses: None Author: CHELLY BUSTAMANTE PLAN COORDINATOR-LAB INTERN Preoperative Information Time of last food or [...] list: Medical Crohn disease / SNOMED CT 66658896 / Confirmed Wellness examination / SNOMED CT 354855004 / Confirmed Weight gain / SNOMED CT 61727278 / Confirmed, Active Problems (4) Crohn disease GERD (gastroesophageal reflux disease) Weight gain Wellness examination Histories Past Medical History: Resolved ([id number]): Onset on 07/18/2018 at 23 years. Resolved in 2018 at 23 years. ([id number]): Onset on 07/19/2017 at 22 years. Resolved in 2018 at 22 years. Family History: Anxiety Sister Hypertension Father Heart disease Father Alcoholism Father Depression Father Procedure history: Colonoscopy ([id number]). 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 Substance Abuse 08/27/2023 Use: Never Tobacco 08/27/2023 Tobacco Use: Never (less than 100 in l Exercise 04/20/2023 Exercise type: Walking Times per week: 5-6 times/week Home/Environment 08/27/2023 Living situation: Home/Independent Domestic Concerns None Primary Sports Doctor: Self Current Home Treatments None Special Services [...] Resp Rate 20 br/min (AUG 27 10:13) MGW845 mmHg (AUG 27 10:13) DBP81 mmHg (AUG 27 10:13) Measurements from flowsheet : Measurements 08/27/2023 10:13 EST Height 160 cm Admission Weight 75 kg [place] Body Weight 52.38 kg Admission Body Mass [...] Height 160 cm Admission Weight 75 kg [place] Body Weight 52.38 kg Admission Body Mass [...] Person #1 We May Share LAURA Amos [phone] Designated Person #1 Relationship Spouse Privacy Restrictions [...] after midnight, No makeup, No jewelry, Responsible Green Party, Aware of surgery location, Pre-op education done, 1 bottle CHG wash with instructions given, Instructed to take ordered medications, SSI prevention handout given SN - Preprocedure Comments Spoke with patient, Verbalizes/Nonverbally indicates understanding, Other: Omeprazole Barriers to Learning None evident Teaching Method Explanation, Printed materials Preferred Spoken Language Vietnamese Preferred Written Language Vietnamese Teaching Evaluation No further teaching needed Safety Brochure Information Reviewed Unable to complete [facility] Video Viewed No Information Given by [...] QC PRGUP Positive . Assessment and Plan [place] [employer] Anesthesiologists (ASA) physical status classification: Class II. Anesthetic Preoperative Plan Premedication: intravenous. Anesthetic technique: General. Induction: intravenously. Maintenance airway: Oral endotracheal tube. Postoperative pain management: Per surgeon. Risks discussed: nausea, vomiting, sore throat. Informed consent: signed by patient. Digitally Signed by CHELLY BUSTAMANTE on 08/27/2023 11:44 AM [facility]08-11-2023 Telephone encounter Note* Telephone Encounter - Cher Calderon - 04/09/2023 11:53 AM EDT Name of caller: MARIXA Relation to patient: patient Contact phone number: [phone] Appointment scheduled with: LANDY BLAIR Appointment date & time: 05/04/23 @ 7:50 AM Reason for visit (are you having any symptoms) : Low blood pressure, unexpected weight gain Transportation issues/ concerns: NO Special accommodations? ( wheel chair, etc) : NO Current medications: STELARA Any refills need: NO Any chronic conditions the provider should be aware of: CHRON'S, 14 WEEKS [id number] Telephone encounter Note* Telephone Encounter - Cher Calderon - 04/09/2023 11:53 AM EDT In order to comply with the No Surprises Act, [employer] is providing you with the following attachments. Any Good Cathy Estimate that may be provided are based on the services you are scheduled toreceive. During your visit, there may be additional services required in order for the provider to complete your plan of care. DECLINED [facility] [id number] Miscellaneous Notes* Telephone Encounter - Cher Calderon - 04/09/2023 11:53 AM EDT In order to comply with the No Surprises Act, [employer] is providing you with the following attachments. Any Good Cathy Estimate that may be provided are based on the services you are scheduled toreceive. During your visit, there may be additional services required in order for the provider to complete your plan of care. DECLINED documented in this encounterSOhio[facility] [id number] Miscellaneous Notes* Telephone Encounter - Dimaskleber Calderon - 04/09/2023 11:53 AM EDT Name of caller: MARIXA Relation to patient: patient Contact phone number: [phone] Appointment scheduled with: LANDY BLAIR Appointment date & time: 05/04/23 @ 7:50 AM Reason for visit (are you having any symptoms) : Low blood pressure, unexpected weight gain Transportation issues/ concerns: NO Special accommodations? ( wheel chair, etc) : NO Current medications: STELARA Any refills need: NO Any chronic conditions the provider should be aware of: CHRON'S, 14 WEEKS documented in this [facility] [id number] Telephone encounter Note* Telephone Encounter - Cher Calderon - 04/05/2023 3:44 PM EDT PATIENT SUBMITTED ONLINE APPOINTMENT REQUEST FOR A PCP APPOINTMENT. SPOKE TO PATIENT AND GOT SOME INFORMATION BUT SHE HAD TO GET OFF THE LINE AND STATES SHE WILL C/B. OK TO SCHEDULE WITH ANY PROVIDERWHEN PATIENT CALLS BACK. FirstName : Marixa LastName : BRAGA Pronouns : PronounsOther : Email : [email or web address] Phone : [phone] Birthdate : 1995 12:00:00 AM BestTimeToCallBack : Afternoon AppointmentDate : Kirk PhysicianRequested : Symptoms : Weight gain, low blood pressure OptIn : False [facility] [id number] Miscellaneous Notes* Telephone Encounter - Cher Robles AyoubYumiko - 04/05/2023 3:44 PM EDT PATIENT SUBMITTED ONLINE APPOINTMENT REQUEST FOR A PCP APPOINTMENT. SPOKE TO PATIENT AND GOT SOME INFORMATION BUT SHE HAD TO GET OFF THE LINE AND STATES SHE WILL C/B. OK TO SCHEDULE WITH ANY PROVIDERWHEN PATIENT CALLS BACK. FirstName : Marixa LastName : BRGAA Pronouns : PronounsOther : Email : [email or web address] Phone : [phone] Birthdate : 1995 12:00:00 AM BestTimeToCallBack : Afternoon AppointmentDate : Kirk PhysicianRequested : Symptoms : Weight gain, low blood pressure OptIn : False documented in this encounterSOhioHealth Marion General HospitalEvaluation + Plan note No data available for this section [facility] Evaluation + Plan note Future Appointments Appointment Date:08/16/2023 10:45:00 AM Scheduled Provider:CATRACHITO MERCEDES MD Location:[facility] Appointment Type: OV Follow Up [facility] Evaluation note* Diagnosis Onset Date Resolution Status Ulcerative colitis acute Ulcerative colitis [facility] Work Phone: Evaluation note* Diagnosis Onset Date Resolution Status Ulcerative colitis [facility] Work Phone: Evaluation note* Diagnosis Onset Date Resolution Status Chronic GERD chronic Ulcerative colitis chronic [facility] Work Phone: Evaluation note* Diagnosis Onset Date Resolution Status Endometriosis acute Infertility acute [facility] Work Phone: Evaluation note* Diagnosis Female infertility- Primary Female infertility of unspecified origin Endometriosis Endometriosis, site unspecified documented in this encounter [facility] Work Phone: [phone] note* Diagnosis Fertility testing- Primary Encounter for preprocedural laboratory examination Female fertility problem [N97.9] documented in this encounter [facility] Work Phone: [phone] note* Diagnosis Endometritis- Primary Unspecified inflammatory disease of uterus Fertility testing documented in this encounter [facility] Work Phone: [phone] note* Diagnosis Endometritis- Primary Unspecified inflammatory disease of uterus Fertility testing documented in this encounter [facility] Work Phone: [phone] note* Diagnosis Female infertility Female infertility of unspecified origin documented in this encounter [facility] Work Phone: [phone] note* Diagnosis Female infertility Female infertility of unspecified origin documented in this encounter [facility] Work Phone: [phone] note* Diagnosis Female infertility Female infertility of unspecified origin documented in this encounter [facility] Work Phone: [phone] note* Diagnosis Encounter for assisted reproductive fertility cycle Encounter for assisted reproductive fertility procedure cycle documented in this encounter [facility] Work Phone: [phone] note* Diagnosis Encounter for assisted reproductive fertility cycle Encounter for assisted reproductive fertility procedure cycle documented in this encounter [facility] Work Phone: [phone] note* Diagnosis Female infertility Female infertility of unspecified origin documented in this encounter [facility] Work Phone: [phone] note* Diagnosis Female infertility Female infertility of unspecified origin documented in this encounter [facility] Work Phone: [phone] note* Diagnosis Fertility testing- Primary Female infertility Female infertility of unspecified origin Screening for diabetes mellitus Encounter for Rh blood typing Encounter for blood typing Screening for STDs (sexually transmitted diseases) Screening examination for venereal disease Screening for thyroid disorder documented in this encounter [facility] Work Phone: Evaluation note* Diagnosis Encounter for assisted reproductive fertility cycle Encounter for assisted reproductive fertility procedure cycle documented in this encounter [facility] Work Phone: [phone] note* Diagnosis Encounter for assisted reproductive fertility cycle Encounter for assisted reproductive fertility procedure cycle documented in this encounter [facility] Work Phone: [phone] note* Diagnosis Healthcare maintenance- Primary Hypovitaminosis D Unspecified vitamin D deficiency Polycystic ovarian disease Polycystic ovaries Crohn's disease of colon without complication (Multi) documented in this encounter [facility] Work Phone: Evaluation note* Diagnosis Healthcare maintenance- Primary Hypovitaminosis D Unspecified vitamin D deficiency Polycystic ovarian disease Polycystic ovaries Crohn's disease of colon without complication (Multi) Female infertility Female infertility of unspecified origin documented in this encounter [facility] Work Phone: [phone] note* Diagnosis Healthcare maintenance- Primary Hypovitaminosis D Unspecified vitamin D deficiency Polycystic ovarian disease Polycystic ovaries Crohn's disease of colon without complication (Multi) Plantar wart- Primary Dermatologic problem documented in this encounter [facility] Work Phone: Evaluation note* Diagnosis Healthcare maintenance- Primary Hypovitaminosis D Unspecified vitamin D deficiency Polycystic ovarian disease Polycystic ovaries Crohn's disease of colon without complication (Multi) Encounter for assisted reproductive fertility cycle Encounter for assisted reproductive fertility procedure cycle documented in this encounter [facility] Work Phone: [phone] note* Diagnosis Healthcare maintenance- Primary Hypovitaminosis D Unspecified vitamin D deficiency Polycystic ovarian disease Polycystic ovaries Crohn's disease of colon without complication (Multi) Encounter to determine viability of , single or unspecified fetus- Primary documented in this encounter [facility] Work Phone: Evaluation note* Diagnosis Healthcare maintenance- Primary Hypovitaminosis D Unspecified vitamin D deficiency Polycystic ovarian disease Polycystic ovaries Crohn's disease of colon without complication (Multi) Vaginal discharge- Primary Leukorrhea, not specified as infective documented in this encounter [facility] Work Phone: Evaluation note* Diagnosis Healthcare maintenance- Primary Hypovitaminosis D Unspecified vitamin D deficiency Polycystic ovarian disease Polycystic ovaries Crohn's disease of colon without complication (Multi) Encounter to determine viability of , single or unspecified fetus- Primary documented in this encounter [facility] Work Phone: History and physical note Author Domo Weaver [facility] October 01, 2023 11:37am Note Date/Time October 01, 2023 1 1:37am [facility] Medical Records Department [address] [place] [address] History & Physical Exam 10/01/23 1137 MR#: [id number] Acct: [id number] Name: MARIXA BRAGA Rep #:[id number] : 1995 28 From: Domo Weaver DO PCP: CATRACHITO MERCEDES Status:[facility] Location: [place] [address] History and Physical Date of Admission: 10/01/23 [...] or lesions noted Quality Reporting Tobacco Screening ([facility] 138) Smoking Status: Never smoker Assessment [...] some mucousy stools when she was in [place] but thatonly lasted for a couple days [...] CC: CATRACHITO MAGO; Domo Weaver, ~ Signed [facility] Work Phone: History of Present illness Narrative* Sarah Espino APRN-APPLICATOR SPRAYER - 01/11/2025 2:00 PM EDT Visit Type: [...] Espino 01/11/2025 1:31 PM documented in this [facility] Work Phone: Hospital Discharge instructions No data available for this section [facility] Progress note No data available for this section [facility] Progress note Author Iesha Lo [facility] Note Date/Time February 06, 2025 8:50 am [facility] [address], [address] [place] [address] OFFICE VISIT Date of Service: 02/06/25 MR#: [id number] Acct: [id number] Name: MARIXA AMOS Rep #: [id number] : 1995 Provider: STEFANIE Lo Age/Sex: 29/F Location: [facility] Status: Signed Intake Vital Signs 07/12/24 08:32 02/02/25 15:25 02/06/25 08:17 Height 5 ft 3 in 5 ft 3 in 5 ft 3 in Weight: 185 lb 8 oz BMI 32.8 BP 118/70 Intake Visit Reasons: *EST* NOB IVF 12/26, GIL 09/13/25 Regulatory Associate Required: No Is patient in pain?: No [...] mg-folate no.1 1 mg-dha 300 mg capsule (PNV-Limestone) prednisone 10 mg tablet 10 mg PO [...] 3-4 times per week duration: 45-60 minutes/day cathy/sabianism: None seatbelt use: always do you feel safe at home: Yes additional social history: -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 Work Phone: Progress note Author Marcia [facility] Note Date/Time February 23, 2025 11:4 3am [facility] [address] [place] [address], [place] [address] OFFICE VISIT Date of Service: 02/23/25 MR#: [id number] Acct: [id number] Name: MARIXA AMOS Rep #: [id number] : 1995 Provider: Dr. 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 Date Name GA/Weeks Outcome Route Bth Weight Infant Gen Labor Lgth Anesthesia [facility] FOB Unknown 07/2023-Julio 20 still Male [...] Symptoms of Preeclampsia, Infant Feeding No , [place] Education and Family Medical Leave or Disability [...] Cosigner Signature: Date (if applicable) CC: ~ [facility] Work Phone: Reason for referral (narrative)No reason for referral information availableWProMedica Memorial Hospital Work Phone: Reason for visit Narrative* Other Medical (Routine) - Authorized Specialty Diagnoses / Procedures Referred By Denny serna Referred To Contact Reproductive Endocrinology and Infertility Diagnoses Fertility testing Procedures Hysteroscopy diagnostic Imelda Pollard MD [address] [place] [address] Phone: tel: fax: Referral ID Status Reason Start Date Expiration Date V isits Requested Visits Authorized [id number] Authorized 07/14/2024 07/14/2025 1 1 [facility] Work Phone: Reason for visit Narrative* Imaging (Routine) - Authorized Specialty Diagnoses / Procedures Referred By Denny serna Referred To Contact Radiology Diagnoses Female infertility Procedures TERRENCE US Pelvis Limited Follicles - Follicle Studies Performed Alejandra Chávez MD [address] [place], [address] [address] Phone: tel: fax: Referral ID Status Reason Start Date Expiration Date Visits Requested Visits Authorized [id number] Authorized Perform Procedure 4 08/17/2025 8 8 [facility] Work Phone: Reason for visit Narrative* Procedure (Routine) - Authorized Specialty Diagnoses / Procedures Referred By Contact Referred To Contact Reproductive Endocrinology and Infertility Diagnoses Encounter for assisted reproductive fertility cycle Procedures Egg Retrieval SC FOLLICLE PUNCTURE OOCYTE RETRIEVAL ANY METHOD CHG [...] FROM ASPIR OTH/THN SEMINAL Katelyn Benitez R, PLAN COORDINATOR-APPLICATOR SPRAYER [address] [place] [address] Phone: tel:[phone] fax:[phone] Referral ID Status Reason Start Date Expiration Date V isits Requested Visits Authorized [id number] Authorized 09/12/2024 09/12/2025 1 1 [facility] Work Phone: reason for visit Narrative* Imaging (Routine) - Authorized Specialty Diagnoses / Procedures Referred By Contac t Referred To Contact Radiology Diagnoses Female infertility Procedures TERRENCE US Pelvis Limited Follicles - Follicle Studies Performed Alejandra Chávez MD [address] [facility] [place] [address] Phone: tel: fax: Referral ID Status Reason Start Date Expiration Date Visits Requested Visits Authorized [id number] Authorized Perform Procedure 11/07/2024 11/07/2025 8 8 [facility] Work Phone: reason for visit Narrative* Procedure (Routine) - Authorized Specialty Diagnoses / Procedures Referred By Contact Referred To Contact Reproductive Endocrinology and Infertility Diagnoses Encounter for assisted reproductive fertility cycle Procedures Egg Retrieval SC FOLLICLE PUNCTURE OOCYTE RETRIEVAL ANY METHOD CHG [...] FROM ASPIR OTH/THN SEMINAL Katelyn Benitez R, PLAN COORDINATOR-APPLICATOR SPRAYER [address] [place] [address] Phone: tel:[phone] fax:[phone] Referral ID Status Reason Start Date Expiration Date V isits Requested Visits Authorized [id number] Authorized 10/19/2024 10/19/2025 1 1 [facility] Work Phone: reason for visit Narrative* Imaging (Routine) - Authorized Specialty Diagnoses / Procedures Referred By Denny serna Referred To Contact Radiology Diagnoses Female infertility Procedures TERRENCE US Endometrial Lining Check Imelda Pollard MD [address] [place] [address] Phone: tel: fax: Referral ID Status Reason Start Date Expiration Date Visits Requested Visits Authorized [id number] Authorized Perform Procedure 11/28/2024 11/28/2025 5 5 [facility] Work Phone: reason for visit Narrative* Procedure (Routine) - Authorized Specialty Diagnoses / Procedures Referred By Denny serna Referred To Contact Reproductive Endocrinology and Infertility Diagnoses Encounter for assisted reproductive fertility cycle Procedures Embryo Transfer SC EMBRYO TRANSFER INTRAUTERINE CHG ULTRASONIC GUIDANCE INTRAOPERATIVE CHG THAWING CRYOPRESERVED EMBRYO CHG ASSTD EMBRYO HATCHING MICROTQS ANY METH CHG PREPJ EMBRYO TR Imelda Pollard MD [address] [place] [address] Phone: tel: fax: Referral ID Status Reason Start Date Expiration Date V isits Requested Visits Authorized [id number] Authorized 11/30/2024 08/29/2025 1 1 [facility] Work Phone: Summary Purpose Family History [...] Will Yes June 25 12:50pm Power of Operator And Truck Driver Yes June 25, 2023 12:50pm Advance Directive Response Recorded Date/ Time Name of Medical Power of Operator And Truck Driver Naila WADE LD September 29, 2023 8:44am Living Will Yes September 29 8:44am Power of Operator And Truck Driver Yes September 29, 2023 8:44am Advance Directive Response Recorded Date/ Time Name of Medical Power of Operator And Truck Driver ANNA WADE LD September 29, 2023 9:44am Living Will Yes September 29 9:44am Power of Operator And Truck Driver Yes September 29, 2023 9:44am Advance Directive Response Recorded Date/ Time Living Will Yes September 29 9:44am Do you have a Healthcare Power of Operator And Truck Driver? Yes September 29, 2023 9:44am Chief Complaint [...] 01, 2025 2:53pm Supervision of high-risk Septe [facility] 2024 2:53pm Ulcerative colitis May 01, 2025 [...] 01, 2025 2:53pm Supervision of high-risk Septe [facility] 2024 2:53pm Ulcerative colitis May 01, 2025 [...] May 01, 2025 2:53pm [facility] high-[facility] 2:53[facility] Ulcerative colitis May 01, 2025 [...] May 11, 2025 1:47pm Super[facility] of high-risk [facility] 2024 1:47pm Ulcerative colitis May 11, 2025 [...] section and content) DATE CREATED AUTHOR 07/01/2019 [facility] DATE CREATED AUTHOR AUTHOR'S ORGANIZ ATION 04/10/2023 [facility] DATE CREATED AUTHOR AUTHOR'S ORGANIZ ATION 11/26/2023 [facility] DATE CREATED AUTHOR AUTHOR'S ORGANIZ ATION 12/22/2024 [facility] DATE CREATED AUTHOR AUTHOR'S ORGANIZ ATION 12/22/2024 [facility] DATE CREATED AUTHOR AUTHOR'S ORGANIZ ATION 01/26/2025 [facility] DATE CREATED AUTHOR AUTHOR'S ORGANIZ ATION 01/29/2025 [facility] DATE CREATED AUTHOR AUTHOR'S ORGANIZ ATION 05/16/2025 [facility] DATE CREATED AUTHOR AUTHOR'S ORGANIZ ATION 05/19/2025 [facility] DATE CREATED AUTHOR AUTHOR'S ORGANIZ ATION 06/07/2025 [facility] Goals (unrecognized section and content) [...] wart-pt states was treated with ln2 [facility]. Reason Comments Vaginal Discharge Care Teams [...] CNM Attending Provider, Referring Pro vider Active Weigh And Charge Worker Relationship Specialty Start Date End Date Amy Cherry RN Registered Nurse 07/17/24 Weigh And Charge Worker Relationship Specialty Start Date End Date Amy Cherry RN Registered Nurse 07/17/24 Weigh And Charge Worker Relationship Specialty Start Date End Date Amy Cherry RN Registered Nurse 07/17/24 Weigh And Charge Worker Relationship Specialty Start Date End Date Amy Cherry RN Registered Nurse 07/17/24 Weigh And Charge Worker Relationship Specialty Start Date End Date Amy Cherry RN Registered Nurse 07/17/24 Weigh And Charge Worker Relationship Specialty Start Date End Date Amy Cherry RN Registered Nurse 07/17/24 Weigh And Charge Worker Relationship Specialty Start Date End Date Amy Cherry RN Registered Nurse 07/17/24 Weigh And Charge Worker Relationship Specialty Start Date End Date Tsiros, Amy, RN Registered Nurse 07/17/24 Weigh And Charge Worker Relationship Specialty Start Date End Date [facility], RN Registered Nurse 07/17/24 Weigh And Charge Worker Relationship Specialty Start Date End Date Amy Cherry, RN Registered Nurse 07/17/24 Weigh And Charge Worker Relationship Specialty Start Date End Date [facility], RN Registered Nurse 07/17/24 Weigh And Charge Worker Relationship Specialty [place] [address] [address] [facility] [address] [place] [address] PCP - General Internal Medicine 12/11/24 [facility] RN Registered Nurse 07/17/24 Weigh And Charge Worker Relationship Specialty [place] [address] [address] [address] PCP - General Internal Medicine 12/11/24 [facility], RN Registered Nurse 07/17/24 Weigh And Charge Worker Relationship Specialty [place] [address] [address] [address] PCP - General Internal Medicine 12/11/24 [facility] Registered Nurse 07/17/24 Weigh And Charge Worker Relationship Specialty Start [place] [address] [address] [address] PCP - General Internal Medicine 12/11/24 [facility], RN Registered Nurse 07/17/24 Team Status: Active [...] January 06, 2025 End: January 06, 2025 Weigh And Charge Worker Relationship Specialty Start [place] [address] [address] [facility] [address] [place] [address] PCP - General Internal Medicine 12/11/24 Amy Cherry, RN Registered Nurse 07/17/24 Weigh And Charge Worker Relationship Specialty [place] [address] [facility] [address] [place] [address] PCP - General Internal Medicine 12/11/24 Amy [...] 2025 End: February 02, 2025 Dr. Catrachito Mercdees MD Referring Provider Active Start: February 02, [...] 06, 2025 End: February 06, 2025 Dr. Carmne Lugo MD Attending Provider Active Start: February [...] BE BASED ON THE PRIMARY CLINICAL RECORDS. [facility] [employer] [facility]. provides no warranty or guarantee of the accuracy or completeness of information in this document.
[2025-06-15 07:02] LABS: Hematocrit 31.5 % (37-47); Hemoglobin 10.2 g/dL (12.0-15.0); Immature Granulocytes Count 0.190 X10^3/uL (0.0-0.0); Mean Corp Hgb Conc 32.4 g/dL (32-36); Mean Corpuscular Volume 90.5 fL (81-99); Mean Platelet Vol. 9.6 fl (6.2-12.0); NRBC Flagged by Analyzer 0 % (0-5); Platelet Count 334 K/mm3 (150-450); RBC Distribution Width CV 13.1 % (11.6-14.6); RBC Distribution Width SD 42.6 fl (35.1-43.9); Red Blood Count 3.48 M/mm3 (4.2-5.4); White Blood Count 11.9 K/mm3 (4.4-11.0)
[2025-06-15 07:20] LABS: Glucose GTT-Gestation. Fasting 95 mg/dL (<105)
[2025-06-15 08:00] LABS: HIV Nonreactive (Nonreactive); Syphilis Antibodies Nonreactive (Nonreactive)
[2025-06-15 09:53] LABS: Glucose GTT-Gestational 1 Hr 175 mg/dL (<190)
[2025-06-15 10:49] LABS: Glucose GTT-Gestational 2 Hr 188 mg/dL (<165)
[2025-06-15 11:34] LABS: Glucose GTT-Gestational 3 Hr 134 L (<145)
== END | disposition home or self-care (01) ==
LOC: LAB 06:42
PROVIDERS: Referring Provider Obstetrics & Gynecology; Visit Provider Obstetrics & Gynecology
DX: O09.90 Supervision of high risk pregnancy, unspecified, unspecified trimester (principal); Z3A.00 Weeks of gestation of pregnancy not specified
CPT/HCPCS: 36415; 82951; 82952; 85025; 86703; 86780

== ENCOUNTER 2025-06-26 07:52 | Outpatient (RCR) | payer BC, SELFPAY | END 2025-06-29 23:59 | LOC: NS 07:52 | PROVIDERS: Referring Provider Obstetrics & Gynecology; Visit Provider Obstetrics & Gynecology | DX: O99.210 Obesity complicating pregnancy, unspecified trimester (principal); Z3A.00 Weeks of gestation of pregnancy not specified; K51.90 Ulcerative colitis, unspecified, without complications; Z71.3 Dietary counseling and surveillance | CPT/HCPCS: 97802 ==

== ENCOUNTER 2025-07-17 07:15 | Outpatient (RCR) | payer BC, SELFPAY | END 2025-07-29 23:59 | LOC: NS 07:15 | PROVIDERS: Referring Provider Obstetrics & Gynecology; Visit Provider Obstetrics & Gynecology | DX: Z71.3 Dietary counseling and surveillance (principal); K51.90 Ulcerative colitis, unspecified, without complications; O24.919 Unspecified diabetes mellitus in pregnancy, unspecified trimester; O99.619 Diseases of the digestive system complicating pregnancy, unspecified trimester; O99.210 Obesity complicating pregnancy, unspecified trimester; Z3A.00 Weeks of gestation of pregnancy not specified | CPT/HCPCS: 97803 ==

== ENCOUNTER 2025-08-11 11:35 | Outpatient (CLI) | payer BC, SELFPAY ==
--- OUTSIDE RECORDS SUMMARY | 2025-08-11 11:41 | XMS RPT_ITS | CCD ---
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 Oliveros Attending Provider [phone] Ezequiel VU NP-Rosa Fernández Attending Provider [phone] Care Physician, No Primary Primary Care Provider Unavailable Care Physician, No Primary Referring Provider Un available Care Physician, No Primary Primary Care Provider Unavailable Care Physician, No Primary Referring Provider Un available Ezequiel VU NP-C Imelda Fernández Attending Provider [phone] Unavailable Primary Care Provider Unavailabl e Care Physician, No Primary Primary Care Provider Unavailable Care Physician, No Primary Referring Provider Un available FriendDr. Oliveros Attending Provider CATRACHITO MERCEDES MD Primary Care Physician FriendDr. Oliveros Other Provider [phone] MAGO, NASTAMICHEL Primary Care Provider Unavailab le MAGO, NASTARAN Referring Provider Unavailable Care Physician, No Primary Primary Care Provider Unavailable Care Physician, No Primary Referring Provider Un available FriendDr. Oliveros Attending Provider [phone] FriendDr. Oliveros Other Provider [phone] MAGO, NASTARAN Primary Care Provider Unavailab le MAGO, NASTAMICHEL Referring Provider Unavailable ERNA TROTTER MD Attending Unavailable ERNA TROTTER MD Consulting Unavailable MAGO BLANCO, CATRACHITO Primary Care Unavailable CATRACHITO MERCEDES MD Primary Care Unavailable MAKI MESSINAN-AERONAUTICS TEACHER, SHREYA Attending Unavail able ERNA TROTTER MD Attending Unavailable MAGO BLANCO, CATRACHITO Primary Care Unavailable CATRACHITO MERCEDES MD Attending Unavailable MAGO BLANCO, CATRACHITO Primary Care Unavailable ERNA TROTTER MD Attending Unavailable MAGO BLANCO, CATRACHITO Primary Care Unavailable Friend, Dr. Oliveros Attending Provider Care Physician, No Primary Referring Provider Un available STEFANIE Lo Attending Provider [phone] Unavailable Primary Care Provider Unavailvy Cherry RN, Amy Unavailable Unavailable Jo Ann MARQUEZ, Amy Unavailable Unavailable Denise Ordonez MD Primary Care Provider MARCIA KISER Attending Unavailable MARCIA KISER Attending Unavailable ANABELL MICHAEL Attending Unava ilable DENISE ORDONEZ Primary Care Unavailable Friend DO, Dr. Oliveros Attending Provider Mago BLANCO, Dr. Winston Primary Care Provider Mago BLANCO, Dr. Winston Referring Provider [phone] Friend DO, Dr. Oliveros Referring Provider DENISE ORDONEZ Attending Unavailable DENISE ORDONEZ Primary Care Unavailable DENISE ORDONEZ Primary Care Unavailable Manfred BLANCO, Dr. Morales Attending Provider IMELDA POLLARD Attending Unavailable GAVINO TRISTAN Attending Unavailable OMITIMELDA Referring Unavailable SHO, ALEJANDRA D Referring Unavailable FLYCKTJOSECA Analilia Referring Unavailable SHO, ALEJANDRA D Referring Unavailable SHO, ALEJANDRA D Referring Unavailable SHO, ALEJANDRA D Referring Unavailable SHO, ALEJANDRA D Referring Unavailable HENRIETTA HERNDON Attending Unavailable KATELYN BENITEZ Referring Unavailable SHO, ALEJANDRA D Referring Unavailable SHO, ALEJANDRA D Referring Unavailable SHO, ALEJANDRA D Referring Unavailable SHO, ALEJANDRA D Referring Unavailable SHO, ALEJANDRA D Referring Unavailable HENRIETTA HENRDON Attending Unavailable KATELYN BENITEZ Referring Unavailable FLYLUIS FELIPETJOSECA Analilia Referring Unavailable DENISE ORDONEZ Primary Care Unavailable DENISE ORDONEZ Primary Care Unavailable DENISE ORDONEZ Primary Care Unavailable GAVINO TRISTAN Attending Unavailable OMITIMELDA Referring Unavailable DENISE ORDONEZ Primary Care Unavailable DENISE ORDONEZ Primary Care Unavailable ROCIO, SARAH L Referring Unavailable CATIA ORDONEZORY L Primary Care Unavailable ROCIO, SARAH L Attending Unavailable ORDONEZ, DENISE L Primary Care Unavailable ROCIO, SARAH L Referring Unavailable ORDONEZ, DENISE L Primary Care Unavailable ELI, KATELYN R Attending Unavailable ORDONEZ, DENISE L Primary Care Unavailable ELI, KATELYN R Referring Unavailable ORDONEZ, DENISE L Primary Care Unavailable ELI, KATELYN R Attending Unavailable ORDONEZ, DENISE L Primary Care Unavailable Mary Beth Allen CNM Attending Provider [phone] Iesha Lo CNM Attending Provider [phone] Manfred BLANCO, Dr. Morales Referring Provider Nathaniel Dallas DO, Dr. Kennedy Attending Provider Manfred BLANCO, Dr. Morales Other Provider [phone] Mago BLANCO, Dr. Winston Primary Care Provider Mago BLANCO, Dr. Winston Referring Provider Owen ABBOTT, Dr. Oliveros Attending Provider Owen ABBOTT, Dr. Oliveros Referring Provider VIOLETTE BLANCO, DR PATRICK Davalos Attending [facility] MERCEDES MD, CATRACHITO Primary Care Unavailable Mago BLANCO, Dr. Winston Primary Care Physician Owen ABBOTT, Dr. Oliveros Attending Physician [phone] Mago BLANCO, Dr. Winston Referring Provider Mary Beth Allen CNM Attending Physician [phone] Iesha Lo CNM Attending Physician [phone] Dr. Carmen Lugo MD Attending Physician Dr. Marcia Yen DO Attending Physician Dr. 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 PIPE OPERATOR-CMarcia Attending Physician [phone] RENA SPAIN Attending Unavailable NO PRIMARY CAREMD Primary Care Unavailable CARMEN LUGO Referring Unavailvy dee NO PRIMARY CAREMD Primary Care Unavailable PATRICK CARBAJAL Attending Unavailable CARMEN LUGO Referring Unavailabl e MARCIA ENGLAND Referring Unavailab le NO PRIMARY CARE, Primary Care Unavailable DNEISE BEAL Attending Unavailable NO PRIMARY CARE, Primary Care Unavailable KEON GAR Attending Unavailable CARMEN LUGO Referring Unavailabl e NO PRIMARY CARE, Primary Care Unavailable MARCIA HENRY Attending Unavailabl e MARCCORNELL, CARMEN E Referring Unavailabl e NO PRIMARY CARE, Primary Care Unavailable MARCIA HENRY Attending Unavailabl e MARCANTHGERARDO, CARMEN E Referring Unavailabl e Mago, Nastaran Referring Unavailable CARLOS MANUEL, QUANTICO Primary Care Unavailable Iesha Lo Attending Unavailable Mago, Nastaran Referring Unavailable Marcia Yen Attending Unavailabl e CARLOS MANUEL, QUANTICO Primary Care Unavailable Mago, Nastaran Primary Care Unavailable Carmen Lugo Attending Unavailable Mago, Nastaran Referring Unavailable Mago, Nastaran Primary Care Unavailable Iesha Lo Attending Unavailable Mago, Nastaran Referring Unavailable Mago, Nastaran Primary Care Unavailable Friend, Domo Referring Unavailable Friend, Domo Attending Unavailable Mago, Nastaran Primary Care Unavailable Carmen Lugo Referring Unavailable Carmen Lugo Attending Unavailable Friend, Domo Attending Unavailable Friend, Domo Referring Unavailable Mago, Nastaran Primary Care Unavailable Carmen Lugo Referring Unavailable Carmen Lugo Attending Unavailable CARLOS MANUEL, QUANTICO Primary Care Unavailable Carmen Lugo Referring Unavailable CristhiananthCarmen carrillo Attending Unavailable CARLOS MANUEL, QUANTICO Primary Care Unavailable Friend, Domo Attending Unavailable Friend, Domo Referring Unavailable Mago, Nastaran Primary Care Unavailable Carmen Lugo Consulting Unavailable Mago, Nastaran Primary Care Unavailable Mago, Nastaran Referring Unavailable Iesha Lo Attending Unavailable Mago, Nastaran Primary Care Unavailable Mary Beth Allen Attending Unavailable Mago, Nastaran Referring Unavailable Marcia Yen Attending Unavailabl e Mago, Nastaran Primary Care Unavailable Mago, Nastaran Referring Unavailable Mago, Nastaran Primary Care Unavailable Mago, Nastaran Referring Unavailable Carmen Lugo Attending Unavailable Mago, Nastaran Primary Care Unavailable Mago, Nastaran Referring Unavailable Carmen Lugo Attending Unavailable Mago, Nastaran Primary Care Unavailable Iesha Lo Attending Unavailable Mago, Nastaran Referring Unavailable Mago, Nastaran Primary Care Unavailable Mago, Nastaran Referring Unavailable Marcia Sarabia Attending Unavailable Mago, Nastaran Primary Care Unavailable Mago, Nastaran Referring Unavailable Marcia Yen Attending Unavailabl e Mago, Nastaran Primary Care Unavailable Mago, Nastaran Referring Unavailable Friend, Domo Attending Unavailable Mago, Nastaran Primary Care Unavailable Mago, Nastaran Referring Unavailable Carmen Lugo Attending Unavailable Marcia Yen Referring Unavailabl e Tamrae Marcia Dallas Attending Unavailabl e CARLOS MANUEL QUANTICO Primary Care Unavailable Mago, Nastaran Primary Care Unavailable Friend, Domo Attending Unavailable Mago, Nastaran Primary Care Unavailable Friend, Domo Referring Unavailable Friend, Domo Attending Unavailable Medications Current Medications Medication Drug Class(es) Dates Sig (Normalized) Sig (Original) acetaminophen 500 mg oral tablet (1 source) Start: 08-27-2023 End: 09-24-2023 Tylenol Extra Strength 500 mg oral tablet Dose : 500 mg = 1 tab(s), Oral, q4h, X 14 day(s), # 30 tab(s), 1 Refill(s), 09/24/23 11:51:00 AM EST, Pharmacy: [facility] #[id number], 160, cm, 08/27/23 10:15:00 EST, Height, kg, [...] day(s), # 12 tab(s), 0 Refill(s), Pharmacy: [facility] #[id number], Postoperative pain, 160, cm, 08/27/23 10:15:00 EST, [...] 0 Refill(s), 09/10/23 11:51:00 AM EST, Pharmacy: [facility] #[id number], 160, cm, 08/27/23 10:15:00 EST, Height, kg, [...] 2025 12:00am May 21, 2025 3:01pm Pnv 56-Qwno-Rhduk Lahn-Zftoi-3 30 mg iron-10 mg iron-1 mg capsule (3 sources) Start: 05-21-2025 Pnv 30-Iron-Fo lic Rzgq-Wxyul-1 30 mg iron-10 mg iron-1 mg capsule Active NMA PO May 21, 2025 12:00am Complies with drug therapy prednisoLONE 10 mg disintegrating oral tablet (3 sources) Corticosteroid Start: 05-16-2025 take 5 tablets by mouth once daily Prednisolone Sodium Phosphate 10 mg tablet,disintegrati ng Active 50 mg PO daily 150 30 1 May 16, 2025 12:00am Complies with drug therapy Prenat.Vits,Mario,Min-I armani-Folic (10 sources) Start: 10-22-2021 take 1 tablet by mouth once daily Prenat.Vits,Mario,Min -Iron-Folic Active 1 TABLET PO DAILY October 22, 2021 9:52am Start: 10-22-2021 take 1 tablet by damon th once daily Prenat.Vits,Mario,Ztn-Uuqn-Onqjl Active 1 TABLET PO DAILY October 22, 2021 12:00am Start: 10-22-2021 take 1 tablet by damon th once daily Prenat.Vits,Mario,Ehn-Jwvp-Byhig Active 1 TABLET PO DAILY October 22, 2021 1:00am 2-QDMB-BVDRW ACID-OM3 ORAL (20 sources) Start: 12-07-2019 take 1 capsule by mouth once daily 0-ECDW-DDZHA ACID-OM3 ORAL Take 1 capsule by mouth [...] mL syringe kit Discontinued 0 SC .COMPLEX September 15, 2021 1:00am March 10, 2022 [...] PO July 12, 2024 1:00am chorionic gonadotropin 68003 unt/ml injectable solution (15 sources) Gonadotropin Start: 11-07-2024 End: 11-22-2024 inject [id number] [IU] by subcutaneous injection once chorionic gonadotropin (Pregnyl) 10,000 unit injection Indications: Female infertility Reconstitute according to instructions and inject 10,000 units (1 mL) under the skin as a one time dose, as directed per provider for trigger. 1 each 11/08/2024 11/22/2024 Discontinued (Therapy completed) Start: 08-18-2024 End: 10-11-2024 inject [id number] [IU] by subcutaneous injection once chorionic gonadotropin [...] 07, 2023 1:00am September 08, 2023 1:04am [place] 2-Ymp-Zjl-Fish Oil (16 sources) Start: 07-12-2024 End: 01-26-2025 [place] 1-Xnm-Wqg-Fish Oil (Fish Oil) 300-1,000 mg capsule Discontinued 1 NMA PO daily July 12, 2024 1:00am January 26, 2025 1:04pm Start: 07-12-2024 [place] 3-Dha-Ep a-Fish Oil (Fish Oil) 300-1,000 mg [...] mouth once daily. 3 tablets Active Mv-Mins 50-Rlco-Awikn No.1-D spencer (Pnv-[place]) 28-1-300 mg capsule (15 sources) Start: 01-26-2025 End: 05-21-2025 Mv-Mins 77-Wuaf-Ppdiv No.1-D spencer (Pnv-[place]) 28-1-300 mg capsule Discontinued NMA PO January 26, 2025 12:00am May 21, 2025 3:01pm Start: 01-26-2025 Mv-Mins 71-Iro n-Folic No.1-Dha (Pnv-[place]) 28-1-300 mg capsule Active NMA PO January [...] 0 Refill(s), 09/01/23 11:51:00 AM EST, Pharmacy: [facility] #[id number], 160, cm, 08/27/23 10:15:00 EST, Height, kg, [...] tablet Disc ontinued 0 PO DAILY 30 0 February 12, 2022 4:09pm March 06, 2022 8:00am Take 3 tabs for five days, two tabs for five day and then one tab. Start: 02-11-2022 End: 03-06-2022 Prednisone Discontinued 0 PO DAILY February 12, 2022 3:09pm March 06, 2022 7:00am Take 3 tabs for five days, two tabs for five day and then one tab. Prenat.Vits,Mario,Jnc-Yuix-Bzg ic tablet (16 sources) Start: 10-22-2021 End: 01-26-2025 Prenat.Vits,Mario,Awf-Evyh-Qbm ic tablet Discontinued 1 {tbl} PO DAILY October 22, 2021 1:00am January 26, 2025 1:05pm Start: 10-22-2021 Prenat.Vits,Ca l,Jlx-Iecu-Msnmf tablet Active 1 {tbl} PO DAILY October [...] Translations: [Female infertility, unspecified] Onset: 3 Chronic Hemorrhage during ; abruptio placenta; placenta previa [...] usband Romel , GIL 09/13/25, P C [place] ( week demise) Romel growth US and NSTs a t 36 week PRR , GIL 6, PC [place] ( week demise) Romel growth US and [...] diarrhea; Translations: [Irritable bowel syndrome, unspecified] Onset: 5 Chronic Other hematologic conditions (20 sources) History [...] Unclassified (4 sources) Infertile; Translations: [Infertility] 12-09-2023 Viral infection (3 sources) Verruca plantaris; Translations: [Plantar wart] Onset: 5 12-20-2024 Episodic Past or Other Problems Problem Classification Problem Date Documented Da te Episodic/Chronic Contraceptive and procreative management (18 sources) Patient encounter status; Translations: [Encounter for fertility testing] Onset: 07-14-2024 07-14-2024 Episodic Gastrointestinal hemorrhage (20 sources) Rectal hemorrhage; Translations: [Hemorrhage of anus and rectum] Onset: 03-14-2025 01-17-2025 Episodic Inflammatory diseases of female pelvic organs [...] Test Name Value Interpretation Reference Range 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 Office Visit Reporton 07-06-2025 Tool 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 Set Up Operator Office Visit Report [facility] [address], [address] [place] [address] OFFICE VISIT Date of Service: 07/06/25 MR#: [id number] Acct: [id number] Name: MARIXA AMOS Rep #: [id number] : 1995 Provider: STEFANIE Figueroa ams Age/Sex: 29/F [place] [facility] [place]: S[place] Intake Vital Signs 06/01/25 14:47 06/26/25 07:26 07/04/25 07:08 07/06/25 10:44 07/06/25 10:49 Height 5 ft 3 in 5 ft 3 in 5 ft 3 in 5 ft 3 in 5 ft 3 in Weight: 209 lb 6 oz BMI 37.0 BP 131/82 H Intake Visit Reasons: 30w 1d ob 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: No Is patient in pain?: No Allergies No Known Allergies Allergy (Verified 07/06/25 10:43) Medications ???Medication ???Instructions ???Recorded ???Confirmed ???Type ustekinumab 90 mg/mL subcutaneous 90 mg subcut Q8W #1 mL 07/07/24 1 09/05/24 Rx syringe (Stelara) aspirin 81 mg tablet,delayed 81 mg PO QDAY 01/01/25 07/06/25 Hi story release (Adult Aspirin Regimen) famotidine 40 mg tablet 40 mg PO BID PRN 05/11/25 07/06/25 History prednisolone sodium phosphate 10 50 mg (5 x 10 mg) PO QDAY 30 days 05/16/25 07/06/25 Rx mg disintegrating tablet #150 tabs vitamins 30 30 mg iron-10 cap PO 05/21/25 07/06/25 History mg iron-folic acid 1 mg-om3 capsule mesalamine 1,000 mg rectal 1 g GA QHS 3 weeks #30 ea 05/23/25 07/06/25 Rx suppository (Canasa) blood sugar diagnostic (Blood #120 ea 06/18/25 07/06/25 Rx Glucose Test strips) blood-glucose meter #1 ea 06/18/25 07/06/25 Rx lancets 30 gauge (Droplet Lancets) #200 ea 06/18/25 07/06/25 Rx insulin human U-100 NPH-regulr 12 unit subcut QDAY 07/06/2507/06 History 70-30 mix 100 unit/mL subcutaneous susp (Humulin 70/30 U-100 Insulin) Last Menstrual Period: 10/19/24 Zika: Zika virus screening: Negative : No PFSH PFSH Medical History Obesity (BMI 30.0-34.9) Other obesity Rectal bleeding Endometriosis Low iron Anemia Latent tuberculosis Ulcerative colitis Surgical History History of esophagogastroduodenosco py (EGD) ( 09/2023) History of laparoscopy History of colonoscopy ( 09/2023) Family History Grandmother Diabetes Maternal Grandfather Diabetes [...] 3-4 times per week duration: 45-60 minutes/day cathy/islam: None seatbelt use: always do you feel safe at home: Yes 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 Date Name GA/Weeks Outcome Route Bth Weight Gen Labor Lgth Anesthesia Del Locatn Provider FOB Unknown 07/2023-[place] 20 still Male Delivery Date: Last Updated by: Jacquie Durán demise, possible subchorionic hematoma HPI 30w 1d ob Details: MARIXA AMOS is a 29 year old who presents for routine OB visit. OB Visit GIL Calculator Estimated Delivery Date Method Current WG Current Estimate 09/13/25 Manual 30w 1d Other Estimates 09/11/25 Ultrasound #1 30w 3d Expected Delivery Route/Plan Labor Preferences- CB/BF [...] list details Initial Weight: 185 lb Date -? (more content not included)... Normal [facility] Progress Noteon 07-04-2025 Varnish Dipper Authentication Interface Message Text Comanage Gestational A2 Diabetes Mellitus Marixa Amos is seen at 29w6d for comanagement of Gestational Diabetes Mellitus and Crohn's. She denies any complaints today. Her blood glucose record was reviewed. Her insulin started. Start NPH 12u @ HS History of Presenting Problem: She is accompanied by her partner. Marixa denies any cramping, contractions, vaginal bleeding, unusual or increase in vaginal discharge, signs and symptoms of pre-eclampsia, or leaking of any fluid. Patient with positive movement. Gestational Diabetes Marixa presents today for her comanage visit. She has GDMA2 diabetes. The disease course is fluctuating. Her symptom course is compliant. Pertinent negative hyper/hypoglycemia symptoms include none. Current treatments include insulin injections and diet. She is compliant with treatment most of the time. Blood glucose readings reviewed. Readings are as follows: Pt was started on Metformin 1000mg @ HS for her GDMA by her OB. She was having abdominal pain and rectal bleeding. We will discontinue metformin and start her on NPH. BS reviewed from 06/28-07/04/25. Fasting 95-113, 2 hr PP breakfast 96 147 (2 of 7 elevated), lunch 99-135 (2 of 7 elevated), and dinner 108-144 (4 of 6 elevated). Reviewed insulin based on wt and GA. Will start NPH @ 12u @ HS and reevaluate in 1 week. Weight gain is stable. Past Medical History: Past Medical History: Diagnosis Date Crohn's disease Crohns Disease Endometriosis History of blood transfusion Infertility, female IVF Insulin controlled gestational diabetes mellitus (GDM) in third trimester 06/22/2025 Pt presents today stating she was started on Metformin 1000mg @ HS yesterday. She has taken one dose. Education: Optimizing maternal and outcomes in complicated by diabetes An individualized diabetic consistent carbohydrate meal plan created by a registered nurse maternity who is a certified wellness program coordinator- pt has nutrition scheduled that was ordered by her OB. At least 30-60 m* Latent tuberculosis x1 pos test, several neg since then; seen by ID, treated Obesity BMI-33 PCOS (polycystic ovarian syndrome) Ulcerative colitis Past Surgical History: Procedure Laterality Date COLONOSCOPY PELVIC LAPAROSCOPY 07/2024 UPPER GASTROINTESTINAL ENDOSCOPY Medications: Encounter Medications[1] Allergies: Allergies[2] Family Medical History: Family History Problem Relation Age of Onset Anemia Mother 30 - 39 Seizures Mother 10 - 19 Hearing Loss Mother 30 - 39 Stroke Father 50 - 59 Anxiety Disorder Father 20 - 29 [place] x7 Heart Disease Father 50 - 59 High Blood Pressure Father 30 - 39 Mental Illness Father 50 - 59 PTSD Anemia Sister 10 - 19 Anxiety Disorder Sister 10 - 19 Defects Sister 0 - 9 Hip dysplasia Crohn's Disease Sister Celiac Disease Sister Anemia Maternal Grandmother 40 - 49 Diabetes Mellitus I Maternal Grandmother 40 - 49 Seizures Maternal Grandmother 20 - 29 Heart Disease Maternal Grandmother CHF High Blood Pressure Maternal Grandmother High Blood Pressure Maternal Grandfather 70 - 79 Diabetes Mellitus II Paternal Grandmother 50 - 59 Heart Disease Paternal Grandmother CHF Miscarriages / Stillbirths Paternal Aunt 20 - 29 Miscarriage x4 Social History: Social History Socioeconomic History Marital status: Spouse name: None Number of children: None Years of education: None Highest education level: None Tobacco Use Smoking status: Never Smokeless tobacco: Never Substance and Sexual Activity Alcohol use: Never Drug use: Never Physical Exam: Vitals Extended BP: 130/79 Weight - Scale: 94.5 kg (208 lb 6.4 oz) Heart Rate: Positive Number of Fetuses: 1 Heart Rate: 144 per doppler Movement: Present Vaginal Bleeding: Absent Cramps / Contractions: Absent Mucous Discharge: Absent Assessment/Plan: Marixa Amos is a 29 y.o. at 29w6d with: Active Non-Hospital Problems Diagnosis Date Noted Supervision of high risk in third trimester 06/22/2025 Priority: High PLAN OF CARE Co-Manage MD/OB APPOINTMENTS Genetic screening: Declined How often should patient be evaluated? Monthly to 28 weeks, q 2 weeks from 28 to 36 weeks then weekly until delivery. Work restrictions: NA EVALUATION surveillance: Twice weekly @ 32wks- new dx of GDMA2 Ultrasound: Growth every 4 weeks DELIVERY PLAN Hospital: [facility] Delivery:As per standard obstetric practice and anticipate a term vaginal delivery at 39+0 weeks +3 days for scheduling purposes; and sooner, as indicated, depending on interval obstetric course. She has no history of perianal disease GBS culture: per OB Contraception: NFP : breast Ped: SANTOS Cliff Name of baby: Hossein- Cliff Vaccinations: Recommend 3rd trimester TDAP-06/22/25; se (more content not included)... 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 Patient has new onset diarrhea and GI is wondering if it is due to metformin. I recommend the patient call her office for an appointment within the next several days so that she can be switched to insulin. This change will eliminate metformin as a cause of the diarrhea and if the patient has diarrhea due to ulcerative colitis and needs a steroid pulse, insulin will make managing glucoses much simpler. In addition ACOG recommends insulin as the best therapy for gestational diabetes and not treated with diet alone. Normal [facility] Progress Noteon 06-22-2025 Varnish Dipper Authentication Interface Message Text Co- Manage Visit Subjective: Marixa Amos is being seen today for an obstetrical visit. She is at 28w1d gestation. Her obstetrical history is significant for GDMA2- New Dx started on Metfomrin 06/21/25, H/O demise, IVF , Obesity, Chrohn's and Ulcerative Colitis. history fully reviewed. She is accompanied by her partner and relative(s). Marixa denies any cramping, contractions, vaginal bleeding, unusual or increase in vaginal discharge, signs and symptoms of pre-eclampsia, or leaking of any fluid. Patient with positive movement. Pregestational Diabetes Marixa presents today for her initial visit. She has GDMA2 diabetes. Her symptom course is compliant. Pertinent negative hyper/hypoglycemia symptoms include none. Current treatments include oral agent (monotherapy) and diet. Blood glucose readings not reviewed. Review of Systems All other systems reviewed and are negative. Objective: BP 135/80 Pulse 82 Resp 18 Wt (!) 94.9 kg (209 lb 4.8 oz) LMP 10/19/2024 SpO2 98% BMI 37.08 kg/m Physical Exam Vitals reviewed. Constitutional: Appearance: She is well-developed. Pulmonary: Effort: Pulmonary effort is normal. Abdominal: Comments: Gravid Musculoskeletal: General: Normal range of motion. Neurological: Mental Status: She is alert and oriented to person, place, and time. Psychiatric: Mood and Affect: Mood and affect normal. Behavior: Behavior normal. Thought Content: Thought content normal. Judgment: Judgment normal. FHT: 153bpm Presentation: Cephalic Uterine Size: see ultrasound Ultrasound: see report for growth Assessment/Plan: Marixa Amos is a 29 y.o. at 28w1d with: Active Non-Hospital Problems Diagnosis Date Noted Supervision of high risk in third trimester 06/22/2025 Priority: High PLAN OF CARE Co-Manage MD/OB APPOINTMENTS Genetic screening: Declined How often should patient be evaluated? Monthly to 28 weeks, q 2 weeks from 28 to 36 weeks then weekly until delivery. Work restrictions: NA EVALUATION surveillance: Twice weekly @ 32wks- new dx og GDMA2 Ultrasound: Growth every 4 weeks DELIVERY PLAN Hospital: [facility] Delivery:As per standard obstetric practice and anticipate a term vaginal delivery at 39+0 weeks +3 days for scheduling purposes; and sooner, as indicated, depending on interval obstetric course. She has no history of perianal disease GBS culture: per OB Contraception: NFP : breast Ped: [facility] [place] Name of baby: Boy- Christopher Vaccinations: Recommend 3rd trimester TDAP-06/22/25; seasonal COVID-initial- no bosster- declined and flu- declined, seasonal RSV between 32-36 weeks Reviewed on 06/22/2025 Gestational diabetes mellitus in , controlled by oral hypoglycemic drugs 06/22/2025 Priority: High Pt presents today stating she was started on Metformin 1000mg @ HS yesterday. She has taken one dose. Education: Optimizing maternal and outcomes in complicated by diabetes An individualized diabetic consistent carbohydrate meal plan created by a registered nurse maternity who is a certified wellness program coordinator- pt has nutrition scheduled that was ordered by her OB. At least 30-60 minutes of physical activity 5-7 days per week- Pt had been logging daily steps. Self-monitoring blood glucose 4 times a day Use of a blood sugar log and food diary Risk of developing Type 2 diabetes after delivery Importance of screening Importance of avoiding tobacco Benefits of - plans to breast feeding She is logging fasting and 2 hour PP. We discussed 1hr PP. She is taking her BS to her OB for review. They may refer her here for diabetic management if desired. I did schedule her for BPPs every Wednesday along with growth @ 32 and 36wks. She will need additional NST on Wednesday with her ob's office. If they choose to do all testing then we can cancel. Pt is aware of plan. I provided her with carb counting information. Sample meal plans and parameters for good control. Reviewed option for CGM. She will call her insurance and see if there is coverage. Will prescribed if desired. Reviewed on 06/22/2025 Prior with demise 05/08/2025 Priority: High 05/08/2025 - Office Visit - MD Sabino: 21w5d . Obstetric History -history of IUFD at 20 weeks: She is 2- Para 0. 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 LA-DETECTED. LA NEEDS REPEATED 12 wks from 05/08/25 draw (07/31/25) Reviewed on 06/22/2025 Colitis 05/08/2025 Priority: Medium 05/08/2025 - Office Visit - (more content not included)... 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 Marcia Lawson DO Age/Sex: 29/F [place] [facility] [place]: Signed Intake Vital Signs 04/06/25 13:00 06/01/25 14:47 06/21/25 15:18 06/21/25 15:19 Height 5 ft 3 in 5 ft 3 in 5 ft 3 in 5 ft 3 in Weight: 209 lb 4 oz BMI 37.0 BP 135/84 H Intake Visit Reasons: 28 WK OB/GLUCOSE 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: No Is patient in pain?: No Allergies No Known Allergies Allergy (Verified 06/21/25 15:17) Medications ???Medication ???Instructions ???Recorded ???Confirmed ???Type ustekinumab 90 mg/mL subcutaneous 90 mg subcut Q8W #1 mL 07/07/24 1 Rx syringe (Stelara) aspirin 81 mg tablet,delayed 81 mg PO QDAY 01/01/25 06/21/25 Hi story release (Adult Aspirin Regimen) famotidine 40 mg tablet 40 mg PO BID PRN 05/11/25 06/21/25 History prednisolone sodium phosphate 10 50 mg (5 x 10 mg) PO QDAY 30 days 05/16/25 06/21/25 Rx mg disintegrating tablet #150 tabs vitamins 30 30 mg iron-10 cap PO 05/21/25 06/21/25 History mg iron-folic acid 1 mg-om3 capsule mesalamine 1,000 mg rectal 1 g GA QHS 3 weeks #30 ea 05/23/25 06/21/25 Rx suppository (Canasa) blood sugar diagnostic (Blood #120 ea 06/18/25 06/21/25 Rx Glucose Test strips) blood-glucose meter #1 ea 06/18/25 06/21/25 Rx lancets 30 gauge (Droplet Lancets) #200 ea 06/18/25 06/21/25 Rx metformin 1,000 mg tablet 1,000 mg PO QHS #30 tabs 06/21/25 06/21/25 Rx Last Menstrual Period: 10/19/24 Zika: Zika [...] house current occupational status: employed current occupation: [employer] current occupational exposures/hazards: No pets and animals: [...] 3-4 times per week duration: 45-60 minutes/day cathy/islam: None seatbelt use: always do you feel safe at home: Yes 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 Date Name GA/Weeks Outcome Route Bth Weight Infant Gen Labor Lgth Anesthesia Del Locatn Provider FOB Unknown 07/2023-Keon 19 still Male Delivery Date: Last Updated by: Jacquie Durán demise, possible subchorionic hematoma HPI 28 WK OB/GLUCOSE Details: MARIXA AMOS is a 29 year old who presents for routine OB visit. OB Visit GIL Calculator Estimated Delivery Date Method Current WG Current Estimate 09/13/25 Manual 28w 0d Other Estimates 09/11/25 Ultrasound #1 28w 2d Expected Delivery Route/Plan Labor Preferences- CB/BF classes: [...] - EGA Weight BP Urine Prot -???-???-???-???-???-??? -???-???-??? (more content not included)... Normal [facility] CBC W/Diff, Automatedon 10-1 Absolute Lymph 2.17 X10 3/uL Normal 0.83-4.51 [facility] Comment on above: Performed By: #### L 100.0100, L509.8002, L3890.6006 #### [facility] [address] [place], [address] Absolute Neut 8.5 X10 3/uL High 2.0-7.7 [facility] Comment on above: Performed By: #### L 100.0100, L509.8002, L3890.6006 #### [facility] [address] [place], [address] Basophils/100 WBC (Bld) 0.4 % Normal 0-1 [facility] Comment on above: Performed By: #### L 100.0100, L509.8002, L3890.6006 #### [facility] [address] [place], [address] Eosinophils/100 WBC (Bld) 1.3 % Normal 0-5 [facility] Comment on above: Performed By: #### L 100.0100, L509.8002, L3890.6006 #### [facility] [address] [place], [address] Erythrocyte distribution width (RBC) [Ratio] 13.1 % Normal 11.6-14.6 [facility] Comment on above: Performed By: #### L 100.0100, L509.8002, L3890.6006 #### [facility] [address] [place], [address] Hematocrit (Bld) [Volume fraction] 31.5 % Low 37-47 [facility] Comment on above: Performed By: #### L 100.0100, L509.8002, L3890.6006 #### [facility] [address] [place], [address] Hemoglobin (Bld) [Mass/Vol] 10.2 g/dL Low 12.0-15.0 [facility] Comment on above: Performed By: #### L 100.0100, L509.8002, L3890.6006 #### [facility] [address] [place], [address] IG% 1.600 High 0.0-0.9 [facility] Comment on above: Result Comment: IG% - Immature Granulocytes (promyelocytes, myelocytes and metamyelocytes) > 1% indicates that a LEFT SHIFT is Present. Performed By: #### L 100.0100, L509.8002, L3890.6006 #### [facility] [address] [place], [address] Lymphocytes/100 WBC (Bld) 18.3 % Low 19-41 [facility] Comment on above: Performed By: #### L 100.0100, L509.8002, L3890.6006 #### [facility] [address] [place], [address] MCH (RBC) [Entitic mass] 29.3 pg Normal 27.0-32.0 [facility] Comment on above: Performed By: #### L 100.0100, L509.8002, L3890.6006 #### [facility] [address] [place], [address] MCHC (RBC) [Mass/Vol] 32.4 g/dL Normal 32-36 [facility] Comment on above: Performed By: #### L 100.0100, L509.8002, L3890.6006 #### [facility] [address] [place], [address] MCV (RBC) [Entitic vol] 90.5 fL Normal 81-99 [facility] Comment on above: Performed By: #### L 100.0100, L509.8002, L3890.6006 #### [facility] [address] [place], [address] Monocytes/100 WBC (Bld) 6.3 % Normal 0-10 [facility] Comment on above: Performed By: #### L 100.0100, L509.8002, L3890.6006 #### [facility] [address] [place], [address] Neutrophils/100 WBC (Bld) 72.1 % High 47-70 [facility] Comment on above: Performed By: #### L 100.0100, L509.8002, L3890.6006 #### [facility] [address] [place], [address] Nucleated RBC (Bld) [#/Vol] 0 10*3/uL Normal 0-5 [facility] Comment on above: Performed By: #### L 100.0100, L509.8002, L3890.6006 #### [facility] [address] [place], [address] Platelet mean volume (Bld) [Entitic vol] 9.6 fL Normal 6.2-12.0 [facility] Comment on above: Performed By: #### L 100.0100, L509.8002, L3890.6006 #### [facility] [address] [place], [address] Platelets (Bld) [#/Vol] 334 10*3/uL Normal 150-450 [facility] Comment on above: Performed By: #### L 100.0100, L509.8002, L3890.6006 #### [facility] [address] [place], [address] RBC (Bld) [#/Vol] 3.48 10*6/uL Low 4.2-5.4 [facility] Comment on above: Performed By: #### L 100.0100, L509.8002, L3890.6006 #### [facility] [address] [place], [address] RDW SD 42.6 fl Normal 35.1-43.9 [facility] Comment on above: Performed By: #### L 100.0100, L509.8002, L3890.6006 #### [facility] [address] [place], [address] WBC (Bld) [#/Vol] 11.9 10*3/uL High 4.4-11.0 [facility] Comment on above: Performed By: #### L 100.0100, L509.8002, L3890.6006 #### [facility] [address] [place], [address] Gestational GTT 3HR 100gon 1 GEST GTT 100gm High [facility] Comment on above: Order Comment: Y Result Comment: FAST ING 95 Col: 06/15/25 0655 GLUCOSE TOLERANCE TEST FOR Reference Interval GESTATIONAL DIABETES Fasting <105 mg/dL 1 hour <190 mg/dl 2 hour <165 mg/dl 3 hour <145 mg/dl 1 HR GLU 175 Col: 06/15/25 0828 2 HR GLU 188 H Col: 06/15/25 0928 3 HR GLU 134 Col: 06/15/25 1028 Performed By: #### L 500.4710 ####[facility] [id number] [facility] [place], [address] HIVon 06-15-2025 HIV Non-Reactive Normal Nonreactive [facility] Comment on above: Result Comment: Non- Reactive Reactive Repeatedly reactive samples must be confirmed according to CDC recommended confirmatory algorithms. The subresults for either HIVAG or AHIV can be used as an aid in the selection of the confirmation algorithm for reactive samples. Send out specimens with Reactive results to [facility] for confirmation. Order the HIV antibody detection and differentiation: lc#[id number] Performed By: #### L 100.0100, L509.8002, L3890.6006 #### [facility] [address] [place], [address] Syphilis Antibodieson 2024 Syphilis Abs Non-Reactive Normal Nonreactive [facility] Comment on above: Performed By: #### L 100.0100, L509.8002, L3890.6006 #### [facility] [address] [place], [address] Tool Planer Set Up Operator Office Visit Reporton 06-01-2025 Tool Planer Set Up Operator Office Visit Report [facility] [address] [facility] [address], [address] [place] [address] OFFICE VISIT Date of Service: 06/01/25 MR#: [id number] Acct: [id number] Name: MARIXA AMOS Rep #: [id number] : 1995 Provider: Dr. 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 Date Name GA/Weeks Outcome Route Bth Weight Infant Gen Labor Lgth Anesthesia Del [facility] Provider FOB Unknown 07/2023-Keon 19 still Male Delivery Date: Last Updated [...] 185 -?? (more content not included)... Normal [facility] L3410.9992on 05-22-2025 [facility] Misc. COMMENT Normal . [facility] Comment on above: Order Comment: JUAN STODDARD/[id number] levles Result Comment: Test Ordered: [id number] Ustekinumab Drug + Antibody Ustekinumab 8.9 ug/mL [...] R, et al. Clin Gastroenterol Hepatol 2017;15: 7966-6566. 4. Tessa MORA et al. Br J Dermatol;2015:173;855-857. 5. Grover H, et al. PLOS ONE DOI;10:1371/journal.pone.8206296. 6. Allan Billingsley et al. Br J Dermatol 2014;170:261-273. These tests were developed and their performance characteristics determined by [employer]. They have not been cleared or approved by the Food and Drug Administration. However, both drug and anti-drug antibody assays have been developed and validated in accordance with FDA Guidance for Industry documents: Bioanalytical Method Validation (2013) and Assay Development and Validation for Immunogenicity Testing of Therapeutic Protein Products (2016). Performed at: Transfer To [address] [place] [id number] Video Network Engineer: Michelle Acharya MD, Phone: [phone] Performed at: [address] [id number] Video Network Engineer: Almas Saavedra PhD, Phone: [phone] Performed By: #### L 101.1214, L501.8855, L3794.9884, L100.0100, L500.0548 ####[facility] [address] [place], [place], [id number] Gastroenterology Visit Repor ton 05-21-2025 Gastroenterology Visit Report [facility] [address] [place] [address] OFFICE VISIT Date of Service: 05/21/25 MR#: [id number] Acct: [id number] Name: MARIXA AMOS Rep #: [id number] : 1995 Provider: DERRICK dixon Age/Sex: 29/F Location[place] [facility] [place] Status: Signed Intake Vital Signs 03/09/25 11:36 [...] FU Chronic Gerd Chief Complaint: UC flare 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: No Accompanied by: Self Is patient [...] 3-4 times per week duration: 45-60 minutes/day cathy/islam: None seatbelt use: always do you feel safe at home: Yes 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 Normal [facility] M7400.3302on 05-17-2025 M7400.3302 ____ TESTING PERFORMED AT [facility]. ORIGINAL REPORT ON FILE IN LAB CONTAINS ADDITIONAL TEST SITE INFORMATION. Giardia Lamblia EIA NEGATIVE [facility] Comment on above: Performed By: #### M 100.2200, L7000.1800 #### [facility] [address] [place], [address] Ova and Parasites 8623on OP OVA AND PARASITES EX AM, ROUTINE These results were obtained using wet preparation(s) and trichrome stained smear. This test does not include testing for Crytosporidium parvum, Cyclospora, or Microsporidia. One negative specimen does not rule out the possibility of a parasitic infection. [facility]. ORIGINAL REPORT ON FILE IN LAB CONTAINS ADDITIONAL TEST SITE INFORMATION. Ova/Parasite Exam NO OVA, CYSTS, OR PARASITES FOUND. Normal [facility] Comment on above: Performed By: #### M 100.2200, L7000.1800 #### [facility] [address] [place], [address] Calprotectin, Stoolon [address] 187 ug/g Abnormal 0-120 [facility] Comment on above: Order Comment: Test( s) 183886-Uftk, Neutral; 490427-Rokn, Totalwas developed and its performance characteristicsdetermined by [employer]. It has not been cleared or approvedby the Food and Drug Administration. Result Comment: Conc entration Interpretation Follow-Up < 5 - 50 ug/g Normal None >50 -120 ug/g Borderline Re-evaluate in 4-6 weeks >120 ug/g Abnormal Repeat as clinically indicated Performed at: [address] [id number] Video Network Engineer: Almas Saavedra PhD, Phone: [phone] Performed at: [address] [id number] Video Network Engineer: Jose Claros MD, Phone: [phone] Performed By: #### M 100.2200, L7000.1800 #### [facility] [address] [place], [address] Fecal Fat, Qualitativeon FATS, NEUTRAL Normal Normal . [facility] Comment on above: Order Comment: Test( s) 975670-Ahlt, Neutral; 370540-Bssy, Totalwas developed and its performance characteristicsdetermined by [employer]. It has not been cleared or approvedby the Food and Drug Administration. Result Comment: Norm al (<60 Droplets/HPF) Performed By: #### M 100.2200, L7000.1800 #### [facility] [address] [place], [address] FATS, TOTAL Normal Normal . [facility] Comment on above: Order Comment: Test( s) 492589-Ypcg, Neutral; 716932-Ntet, Totalwas developed and its performance characteristicsdetermined by [employer]. It has not been cleared or approvedby the Food and Drug Administration. Result Comment: Norm al (<100 Droplets/HPF) Performed By: #### M 100.2200, L7000.1800 #### [facility] [address] [place], [place], [id number] CIRANon 05-15-2025 Dil Dewey Viper Venom 40.7 seconds Normal 30.0-42.0 [facility] Comment on above: Result Comment: DRVV T Confirmation Test Performed: POSITIVE Performed By: #### 1 36793, A1C, 815766, 306319 #### [address] [address] [place] Interpretation See Below Normal [facility] Comment on above: Result Comment: Lupu s Anticoagulant DETECTED by DRVVT method. Performed By: #### 1 03947, A1C, 939079, 705873 #### [address] [address] Platelet neutraliz. Not Done Normal [facility] Comment on above: Performed By: #### 1 34019, A1C, 030701, 920085 #### [address] [address] CDIFF (PCR)on 05-13-2025 CDIFF Pending 027 027 NAP1-B1 Presumptive Negative *for epidemiolologic???use C. Diff PCR Negative- No toxigenic C. Diff Detected Normal [facility] Comment on above: Performed By: #### M 100.2200, L7000.1800 #### [facility] [address] [place], [place], [id number] Calprotectin stoolOrdered By : Domo Weaver on 05-13-2025 Calprotectin stool 187 ug/g High 0-120 [facility] Comment on above: Concentration Interp retation Follow-Up< 5 - 50 ug/g Normal None>50 -120 ug/g Borderline Re-evaluate in 4-6 weeks >120 ug/g Abnormal Repeat as clinically indicatedPerformed at: [facility] [address] [id number] Director: Almas Saavedra PhD, Phone: [phone] at: [facility] [address] [id number] Director: Jose Claros MD, Phone: [phone] Clostridium difficile detect ion by polymerase chain reactionOrdered By: Domo Weaver on 05-13-2025 C. difficile DNA ALEKSEY+probe Ql (Unsp spec) [facility] ENTERIC PATHOGEN PANEL STOOL on 05-13-2025 EP PANEL CAMPYLOBACTER Not Detected Norovirus Not Detected Rotavirus Not Detected Salmonella Not Detected Shiga Toxin Not Detected Shigella sp. Not Detected VIBRIO Not Detected Yersinia Not Detected Normal [facility] Comment on above: Performed By: #### M 100.2200, L7000.1800 #### [facility] [address] [place], [place], [id number] Fecal fat detectionOrdered B y: Domo Weaver on 05-13-2025 Fat Ql (Stl) Normal . [facility] Comment on above: Normal (<100 Droplet s/HPF) No Panel InformationOrdered By: Domo Weaver on 05-13-2025 Stool Neutral Fats Normal . [facility] Comment on above: Normal (<60 Droplets /HPF) Stool Lactoferrin/WBCon 04-30 WBCST Normal Reference Ran ge = Negative Fecal WBC Lactoferrin Negative: No Fecal WBC Lactoferrin present Normal [facility] Comment on above: Performed By: #### M 100.2200, L7000.1800 #### [facility] [address] [place], [place], [id number] Stool lactoferrin detection by immunoassayOrdered By: Domo Weaver on 05-13-2025 Lactoferrin IA Ql (Stl) [facility] Absolute lymphocyte countOrd ered By: Domo Weaver on 05-12-2025 Lymphocytes Auto (Unsp spec) [#/Vol] 1.66 10*3/uL 0.83-4.51 [facility] Absolute neutrophil countOrd ered By: Domo Weaver on 05-12-2025 Neutrophils (Bld) [#/Vol] 6.9 10*3/uL 2.0-7.7 [facility] Anion gap in Serum or Plasma Ordered By: Domo Owen on 05-12-2025 Anion gap [Moles/Vol] 13 mmol/L 5-15 [facility] Automated lymphocyte count a s percentage of total leukocytesOrdered By: Domo Weaver on 05-12-2025 Lymphocytes/100 WBC Auto (Unsp spec) 18.0 % Low 19-41 [facility] BUN/creatinine ratioOrdered By: Domorobles Weaver on 05-12-2025 Urea nitrogen/Creatinine [Mass ratio] 10.9 mg/mg 10-20 [facility] Basophil percentageOrdered B y: Domo Owen on 05-12-2025 Basophils/100 WBC (Bld) 0.3 % 0-1 [facility] Bilirubin, totalOrdered By: Domo Weaver on 05-12-2025 Bilirubin [Mass/Vol] 0.16 mg/dL Normal 0.00-1.[address] [facility] Comment on above: Performed By: #### L 101.9900, L501.6710, L3410.9992, L100.0100, L500.4050 ####[facility] [address] [place], [place], [id number] CBC W/Diff, Automatedon 04-30 Absolute Lymph 1.66 X10 3/uL Normal 0.83-4.51 [facility] Comment on above: Performed By: #### L 101.9900, L501.6710, L3410.9992, L100.0100, L500.4050 #### [facility] [address] [place], [address] Absolute Neut 6.9 X10 3/uL Normal 2.0-7.7 [facility] Comment on above: Performed By: #### L 101.9900, L501.6710, L3410.9992, L100.0100, L500.4050 #### [facility] [address] [place], [address] Basophils/100 WBC (Bld) 0.3 % Normal 0-1 [facility] Comment on above: Performed By: #### L 101.9900, L501.6710, L3410.9992, L100.0100, L500.4050 #### [facility] Laboratory [address] [place], [address] Eosinophils/100 WBC (Bld) 1.1 % Normal 0-5 [facility] Comment on above: Performed By: #### L 101.9900, L501.6710, L3410.9992, L100.0100, L500.4050 #### [facility] Laboratory [address] [place], [address] Erythrocyte distribution width (RBC) [Ratio] 12.7 % Normal 11.6-14.6 [facility] Comment on above: Performed By: #### L 101.9900, L501.6710, L3410.9992, L100.0100, L500.4050 #### [facility] Laboratory [address] [place], [address] Hematocrit (Bld) [Volume fraction] 30.0 % Low 37-47 [facility] Comment on above: Performed By: #### L 101.9900, L501.6710, L3410.9992, L100.0100, L500.4050 #### [facility] Laboratory [address] [place], [address] Hemoglobin (Bld) [Mass/Vol] 10.0 g/dL Low 12.0-15.0 [facility] Comment on above: Performed By: #### L 101.9900, L501.6710, L3410.9992, L100.0100, L500.4050 #### [facility] Laboratory [address] [place], [address] IG% 0.900 Normal 0.0-0.9 [facility] Comment on above: Result Comment: IG% - Immature Granulocytes (promyelocytes, myelocytes and metamyelocytes) > 1% indicates that a LEFT SHIFT is Present. Performed By: #### L 101.9900, L501.6710, L3410.9992, L100.0100, L500.4050 #### [facility] Laboratory [address] [place], [address] Lymphocytes/100 WBC (Bld) 18.0 % Low 19-41 [facility] Comment on above: Performed By: #### L 101.9900, L501.6710, L3410.9992, L100.0100, L500.4050 #### [facility] Laboratory [address] [place], [address] MCH (RBC) [Entitic mass] 29.9 pg Normal 27.0-32.0 [facility] Comment on above: Performed By: #### L 101.9900, L501.6710, L3410.9992, L100.0100, L500.4050 #### [facility] Laboratory [address] [place], [address] MCHC (RBC) [Mass/Vol] 33.3 g/dL Normal 32-36 [facility] Comment on above: Performed By: #### L 101.9900, L501.6710, L3410.9992, L100.0100, L500.4050 #### [facility] Laboratory [address] [place], [address] MCV (RBC) [Entitic vol] 89.6 fL Normal 81-99 [facility] Comment on above: Performed By: #### L 101.9900, L501.6710, L3410.9992, L100.0100, L500.4050 #### [facility] Laboratory [address] [place], [address] Monocytes/100 WBC (Bld) 4.7 % Normal 0-10 [facility] Comment on above: Performed By: #### L 101.9900, L501.6710, L3410.9992, L100.0100, L500.4050 #### [facility] Laboratory [address] [place], [address] Neutrophils/100 WBC (Bld) 75.0 % High 47-70 [facility] Comment on above: Performed By: #### L 101.9900, L501.6710, L3410.9992, L100.0100, L500.4050 #### [facility] Laboratory [address] [place], [address] Nucleated RBC (Bld) [#/Vol] 0 10*3/uL Normal 0-5 [facility] Comment on above: Performed By: #### L 101.9900, L501.6710, L3410.9992, L100.0100, L500.4050 #### [facility] Laboratory [address] [place], [address] Platelet mean volume (Bld) [Entitic vol] 10.2 fL Normal 6.2-12.0 [facility] Comment on above: Performed By: #### L 101.9900, L501.6710, L3410.9992, L100.0100, L500.4050 #### [facility] Laboratory [address] [place], [address] Platelets (Bld) [#/Vol] 313 10*3/uL Normal 150-450 [facility] Comment on above: Performed By: #### L 101.9900, L501.6710, L3410.9992, L100.0100, L500.4050 #### [facility] Laboratory [address] [place], [address] RBC (Bld) [#/Vol] 3.35 10*6/uL Low 4.2-5.4 [facility] Comment on above: Performed By: #### L 101.9900, L501.6710, L3410.9992, L100.0100, L500.4050 #### [facility] Laboratory [address] [place], [address] RDW SD 41.3 fl Normal 35.1-43.9 [facility] Comment on above: Performed By: #### L 101.9900, L501.6710, L3410.9992, L100.0100, L500.4050 #### [facility] Laboratory [address] [place], [address] WBC (Bld) [#/Vol] 9.2 10*3/uL Normal 4.4-11.0 [facility] Comment on above: Performed By: #### L 101.9900, L501.6710, L3410.9992, L100.0100, L500.4050 #### [facility] Laboratory [address] [place], [address] CRPon 05-12-2025 C-REACTIVE PROT 8.18 mg/L High 0.0-3.0 [facility] Comment on above: Performed By: #### L 101.9900, L501.6710, L3410.9992, L100.0100, L500.4050 ####[facility] [address] [place], [address] Carbon dioxide, total [Moles /volume] in Central venous bloodOrdered By: Domo Weaver on 05-12-2025 CO2 [Moles/Vol] 17.8 mmol/L Low 21.0-32.0 [facility] Comment on above: Performed By: #### L 101.9900, L501.6710, L3410.9992, L100.0100, L500.4050 ####[facility] [address] [place], [address] Chloride assayOrdered By: Ra otto Friend on 05-12-2025 Chloride [Moles/Vol] 107 mmol/L Normal 98-[address] [facility] Comment on above: Performed By: #### L 101.9900, L501.6710, L3410.9992, L100.0100, L500.4050 ####[facility] [address] [place], [address] Comprehensive Metabolic Prof ilon 05-12-2025 ALK PHOS 62 U/L Normal 35-104 [facility] Comment on above: Performed By: #### L 101.9900, L501.6710, L3410.9992, L100.0100, L500.4050 ####[facility] [address] [place], [address] BUN/CRE 10.9 RATIO Normal 10-20 [facility] Comment on above: Performed By: #### L 101.9900, L501.6710, L3410.9992, L100.0100, L500.4050 ####[facility] [address] [place], [address] GAP 13 Normal 5-15 [facility] Comment on above: Performed By: #### L 101.9900, L501.6710, L3410.9992, L100.0100, L500.4050 ####[facility] [address] [place], [address] Potassium [Moles/Vol] 3.7 mmol/L Normal 3.3-5.1 [facility] Comment on above: Performed By: #### L 101.9900, L501.6710, L3410.9992, L100.0100, L500.4050 ####[facility] [address] [place], [place], [address] T PROT 6.8 g/dL Normal 5.9-8.4 [facility] Comment on above: Performed By: #### L 101.9900, L501.6710, L3410.9992, L100.0100, L500.4050 ####[facility] [address] [place], [address] Comprehensive Metabolic Prof ilOrdered By: Domo Weaver on 05-12-2025 AST [Catalytic activity/Vol] 23 U/L Normal <=31 [facility] Comment on above: Performed By: #### L 101.9900, L501.6710, L3410.9992, L100.0100, L500.4050 ####[facility] [address] [place], [address] Eosinophil percentageOrdered By: Domo Weaver on 05-12-2025 Eosinophils/100 WBC (Bld) 1.1 % 0-5 [facility] Erythrocyte Sed Rateon 05-12 SED RATE 29 mm/hr Normal 0-30 [facility] Comment on above: Performed By: #### L 101.9900, L501.6710, L3410.9992, L100.0100, L500.4050 #### [facility] Laboratory [address] [place], [place], [address] Erythrocyte distribution wid th ratioOrdered By: Domo Weaver on 05-12-2025 Erythrocyte distribution width (RBC) [Ratio] 12.7 % 11.6-14.6 [facility] Erythrocyte distribution wid th standard deviationOrdered By: Domo Weaver on 05-12-2025 Erythrocyte distribution width (RBC) [Ratio] 41.3 fl 35.1-43.9 [facility] Erythrocyte sedimentation ra teOrdered By: Domo Weaver on 05-12-2025 ESR (Bld) [Velocity] 29 mm/h 0-[address] [facility] Glomerular filtration rate ( GFR) estimation/1.73 sq m using serum, plasma, or whole bOrdered By: Domo Weaver on 05-12-2025 GFR/1.73 sq M.predicted among non-blacks MDRD (S/P/Bld) [Vol rate/Area] 129 mL/min/{1.73_m2} Normal >60 [facility] Comment on above: mL/min/1.73m2 CKD-EP I Creatinine Equation (2020) Result Comment: mL/m in/1.73m2 CKD-EPI Creatinine Equation (2020) Performed By: #### L 101.9900, L501.6710, L3410.9992, L100.0100, L500.4050 ####[facility] [address] [place], [place], [id number] Hematocrit Auto (Bld) [Volum e fraction]Ordered By: Domo Weaver on 05-12-2025 Hematocrit (Bld) [Volume fraction] 30.0 % Low 37-47 [facility] Hemoglobin measurementOrdere d By: Domo Weaver on 05-12-2025 Hemoglobin (Bld) [Mass/Vol] 10.0 g/dL Low 12.0-15.0 [facility] Immature granulocytes/100 WB C Auto (Bld)Ordered By: Domo Weaver on 05-12-2025 Immature granulocytes/100 WBC (Bld) 0.900 % 0.0-0.9 [facility] Comment on above: IG% - Immature Granu locytes (promyelocytes, myelocytes and metamyelocytes) > 1% indicates that a LEFT SHIFT is Present. MCV (mean corpuscular volume ) determinationOrdered By: Domo Weaver on 05-12-2025 MCV (RBC) [Entitic vol] 89.6 fL 81-99 [facility] Mean corpuscular hemoglobin (MCH) determinationOrdered By: Domo Weaver on 05-12-2025 MCH (RBC) [Entitic mass] 29.9 pg 27.0-32.0 [facility] Mean corpuscular hemoglobin concentration (MCHC) determinationOrdered By: Domo Weaver on 05-12-2025 MCHC (RBC) [Mass/Vol] 33.3 g/dL 32-36 [facility] Mean platelet volume determi nationOrdered By: Domorobles Weaver on 05-12-2025 Platelet mean volume (Bld) [Entitic vol] 10.2 fL 6.2-12.0 [facility] Monocyte percentageOrdered B y: Domo Owen on 05-12-2025 Monocytes/100 WBC (Bld) 4.7 % 0-10 [facility] Neutrophil percentageOrdered By: Domo Owen on 05-12-2025 Neutrophils/100 WBC (Bld) 75.0 % High 47-70 [facility] Nucleated red blood cell per centageOrdered By: Domorobles Weaver on 05-12-2025 Nucleated RBC/100 WBC (Bld) [Ratio] 0 % 0-5 [facility] Platelet countOrdered By: Ra clarita Weaver on 05-12-2025 Platelets (Bld) [#/Vol] 313 10*3/uL 150-450 [facility] Potassium measurement (mass/ volume)Ordered By: Domoyamileth Weaver on 05-12-2025 Potassium (Unsp spec) [Mass/Vol] 3.7 mmol/L 3.3-5.1 [facility] RBC Auto (Bld) [#/Vol]Ordere d By: Domorobles Weaver on 05-12-2025 RBC (Bld) [#/Vol] 3.35 10*6/uL Low 4.2-5.4 [facility] Serum creatinine measurement (mass/volume)Ordered By: Domoyamileth Weaver on 05-12-2025 Creatinine [Mass/Vol] 0.51 mg/dL Low 0.70-1.20 [facility] Comment on above: Performed By: #### L 101.9900, L501.6710, L3410.9992, L100.0100, L500.4050 ####[facility] [address] [place], [place], [id number] Serum globulin measurementOr dered By: Domo Weaver on 05-12-2025 Globulin (S) [Mass/Vol] 3.0 g/dL Normal 2.2-4.2 [facility] Comment on above: Performed By: #### L 101.9900, L501.6710, L3410.9992, L100.0100, L500.4050 ####[facility] [address] [place], [address] Serum glucose measurement (m ass/volume)Ordered By: Domo Weaver on 05-12-2025 Glucose [Mass/Vol] 152 mg/dL High 70-99 [facility] Comment on above: Performed By: #### L 101.9900, L501.6710, L3410.9992, L100.0100, L500.4050 ####[facility] [address] [place], [address] Serum or plasma C reactive p rotein measurement (mass/volume)Ordered By: Domo Weaver on 05-12-2025 CRP [Mass/Vol] 8.18 mg/L High 0.0-3.0 [facility] Serum or plasma alanine parisi otransferase (ALT) measurementOrdered By: Domo Weaver on 05-12-2025 ALT [Catalytic activity/Vol] 28 U/L Normal <=34 [facility] Comment on above: Performed By: #### L 101.9900, L501.6710, L3410.9992, L100.0100, L500.4050 ####[facility] [address] [place], [address] Serum or plasma albumin arielle urement (mass/volume)Ordered By: Domo Weaver on 05-12-2025 Albumin [Mass/Vol] 3.8 g/dL Normal 3.5-5.0 [facility] Comment on above: Performed By: #### L 101.9900, L501.6710, L3410.9992, L100.0100, L500.4050 ####[facility] [address] [place], [address] Serum or plasma albumin/glob ulin mass ratioOrdered By: Domo Weaver on 05-12-2025 Albumin/Globulin [Mass ratio] 1.3 {ratio} Normal 0.9-2.4 [facility] Comment on above: Performed By: #### L 101.9900, L501.6710, L3410.9992, L100.0100, L500.4050 ####[facility] [address] [place], [address] Serum or plasma alkaline marcelo sphatase measurementOrdered By: Domo Weaver on 05-12-2025 ALP [Catalytic activity/Vol] 62 U/L 35-104 [facility] Serum or plasma calcium arielle urement (mass/volume)Ordered By: Domo Weaver on 05-12-2025 Calcium [Mass/Vol] 9.1 mg/dL Normal 7.6-11.0 [facility] Comment on above: Performed By: #### L 101.9900, L501.6710, L3410.9992, L100.0100, L500.4050 ####[facility] [address] [place], [address] Serum or plasma urea nitroge n measurement (mass/volume)Ordered By: Domo Weaver on 05-12-2025 Urea nitrogen [Mass/Vol] 6 mg/dL Normal 4-19 [facility] Comment on above: Performed By: #### L 101.9900, L501.6710, L3410.9992, L100.0100, L500.4050 ####[facility] [address] [place], [address] Sodium levelOrdered By: Alisa Michelle on 05-12-2025 Sodium [Moles/Vol] 138 mmol/L Normal 133-145 [facility] Comment on above: Performed By: #### L 101.9900, L501.6710, L3410.9992, L100.0100, L500.4050 ####[facility] [address] [place], [address] Total proteinOrdered By: Lai Weaver on 05-12-2025 Protein [Mass/Vol] 6.8 g/dL 5.9-8.4 [facility] White blood cell (WBC) count Ordered By: Domoyamileth Weaver on 05-12-2025 WBC (Bld) [#/Vol] 9.2 10*3/uL 4.4-11.0 [facility] Laboratory - Chemistry and C hemistry - challengeOrdered By: Iesha Lo on 05-11-2025 Glucose Ql (U) Negative [facility] Laboratory - UrinalysisOrder ed By: Iesha Lo on 05-11-2025 Protein Ql (U) Negative [facility] Tool Planer Set Up Operator Office Visit Reporton 05-11-2025 Tool Planer Set Up Operator Office Visit Report [facility]'[address], [address] [place] [address] OFFICE VISIT Date of Service: 05/11/25 MR#: [id number] Acct: [id number] Name: MARIXA AMOS Rep #: [id number] : 1995 Provider: STEFANIE Figueroa ams Age/Sex: 29/F [place] [facility] [place]: Signed Intake Vital Signs 05/01/25 14:59 05/11/25 13:52 Height 5 ft 3 in 5 ft 3 in Weight: 201 lb 6 oz BMI 35.6 BP 130/86 H Intake Visit Reasons: FHT check, spotting Chief Complaint: FHT Check, Spotting 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: No Is patient in pain?: No [...] mg-folate no.1 1 mg-dha 300 mg capsule (PNV-[place]) famotidine 40 mg tablet 40 mg PO BID PRN 05/11/25 History mesalamine 1,000 mg rectal 1,000 mg GA QHS 05/11/25 05/11/25 History suppository (Canasa) prednisone [...] 3-4 times per week duration: 45-60 minutes/day cathy/islam: None seatbelt use: always do you feel safe at home: Yes 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 Date Name GA/Weeks Outcome Route Bth Weight Infant Gen Labor Lgth Anesthesia Del Locatn Provider FOB Unknown 07/2023-[place] 20 still Male Delivery Date: Last Updated [...] had carrier (more content not included)... Normal [facility] [id number] 05-10-2025 B2 Glyco I IgG Ab <9 Normal 0-20 [facility] Comment on above: Performed By: #### 1 68898, A1C, 899176, 328681 #### [facility] [address] [place] [address] B2 Glyco I IgM Ab <9 Normal 0-32 [facility] Comment on above: Result Comment: Perf ormed At: [address] [id number] Quentin Coburn PhD Ph:[phone] Performed By: #### 1 15202, A1C, 009951, 925925 #### [place] [address] CARDIGon 05-10-2025 Cardiolipin IgG <9 Normal 0-14 [facility] Comment on above: Result Comment: Nega tive: <15 Indeterminate: 15 - 20 Low-Med Positive: >20 - 80 High Positive: >80 Performed At: [address] [id number] Quentin Coburn PhD Ph:[phone] Performed By: #### 1 44060, A1C, 580454, 495109 #### [place] [address] [facility]20[facility] Cardiolipin IgM <9 Normal 0-12 [facility] Comment on above: Result Comment: Nega tive: <13 Indeterminate: 13 - 20 Low-Med Positive: >20 - 80 High Positive: >80 Performed At: [address] [id number] Quentin Coburn PhD Ph:[phone] Performed By: #### 1 99304, A1C, 302580, 535685 #### [place] [address] A1Con 05-08-2025 Glucose [Mass/Vol] 111 mg/dL Normal [facility] Comment on above: Result Comment: Isabelle mated Average Glucose calculated by equation ((28.7xA1C)-46.7) Estimated average glucose (eAG) is a calculated value from Hemoglobin A1C and is transportation services representative of the average blood glucose level in the last 2-3 month period. Normal range: less than 114 mg/dL Performed By: #### 1 04078, A1C, 873720, 766328 #### [facility] [address] [place] [address] HbA1c (Bld) [Mass fraction] 5.5 % Normal 4.0-6.0 [facility] Comment on above: Performed By: #### 1 43144, A1C, 932802, 770761 #### [facility] [address] [place] [address] Progress Noteon 05-08-2025 Varnish Dipper Authentication Interface Message Text [facility] - at [place] [address]. CARBAJAL OFFICE VISIT NOTE The concluding Summary Communication to Supervisor [employer] is at the end of this office [...] a. Ongoing Care with: Dr. Leach. b. [facility] co-management visits scheduled with [facility] imaging visits. c. She is transferring her gastroenterology care to [facility] on 05/10/2025 and will share this [...] at 28/32/36 weeks with comanagement with our BANK MANAGER. 5. Antepartum Testing: Weekly NST in the office at 36 weeks will be appropriate. 6. Delivery-planned at [place]: As per standard obstetric practice and anticipate a term vaginal delivery at 39+0 weeks +3 days for scheduling purpos (more content not included)... Normal [facility] Laboratory - Chemistry and C hemistry - challengeOrdered By: Carmen Lugo on 05-01-2025 Glucose Ql (U) Negative [facility] Laboratory - UrinalysisOrder ed By: Carmen Lugo on 05-01-2025 Protein Ql (U) Negative [facility] Tool Planer Set Up Operator Office Visit Reporton 05-01-2025 Tool Planer Set Up Operator Office Visit Report [facility]'s [address], [address] [place] [address] OFFICE VISIT Date of Service: 05/01/25 MR#: [id number] Acct: [id number] Name: MARIXA AMOS Rep #: [id number] : 1995 Provider: Dr. Carmen dixon MD Age/Sex: 29/F [place] [facility] [place]: Signed Intake Vital Signs 03/09/25 11:36 04/06/25 13:00 05/01/25 14:59 Height 5 ft 3 in 5 ft 3 in 5 ft 3 in Weight: 200 lb 7 oz BMI 35.5 BP 125/78 H Intake Visit Reasons: 21wk ob *IVF 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: No Is patient in pain?: No [...] mg-folate no.1 1 mg-dha 300 mg capsule (PNV-Portage) ondansetron 4 mg disintegrating 4 mg PO [...] house current occupational status: employed current occupation: [employer] current occupational exposures/hazards: No pets and animals: [...] 3-4 times per week duration: 45-60 minutes/day cathy/islam: None seatbelt use: always do you feel safe at home: Yes additional social history: -Romel- Nathan History 2 Elective abortions Hx Para 0 Spontaneous abortions 1 Hx # Term Pregnancies Ectopic pregnancies Hx # Pregnancies Multiple births # of living children Past Pregnancies Del. Date Name GA/Weeks Outcome Route Bth Weight Gen Labor Lgth Anesthesia Del Locatn Provider FOB Unknown 07/2023-[place] 19 still Male Delivery Date: Last Updated [...] had car (more content not included)... Normal [facility] Laboratory - Chemistry and C hemistry - challengeOrdered By: Iesha Lo on 04-06-2025 Glucose Ql (U) Negative [facility] Laboratory - UrinalysisOrder ed By: Iesha Lo on 04-06-2025 Protein Ql (U) Negative [facility] Tool Planer Set Up Operator Office Visit Reporton 04-06-2025 Tool Planer Set Up Operator Office Visit Report [facility] [address], [address] [place] [address] OFFICE VISIT Date of Service: 04/06/25 MR#: [id number] Acct: [id number] Name: MARIXA AMOS Rep #: [id number] : 1995 Provider: STEFANIE Figueroa [facility] Age/Sex: 29/F [place] [facility] [place]: Signed Intake Vital Signs 02/06/25 08:17 03/09/25 11:36 04/06/25 13:00 Height 5 ft 3 in 5 ft 3 in 5 ft 3 in Weight: 191 lb 4 oz 194 lb 9 oz BMI 33.8 34.4 BP 129/85 H 138/79 H Intake Visit Reasons: 17 wk ob *IVF Chief Complaint: 17wk OB 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: No Is patient in pain?: No [...] mg-folate no.1 1 mg-dha 300 mg capsule (PNV-[place]) ondansetron 4 mg disintegrating 4 mg PO [...] 3-4 times per week duration: 45-60 minutes/day cathy/islam: None seatbelt use: always do you feel safe at home: Yes 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 Date Name GA/Weeks Outcome Route Bth Weight Infant Gen Labor Lgth Anesthesia Del Locatn Provider FOB Unknown 07/2023-[place] 19 still Male Delivery Date: Last Updated [...] -???-???-???-???-???-??? -???-???-???-???-???- (more content not included)... Normal [facility] CRPon 03-10-2025 C-REACTIVE PROT 8.03 mg/L High 0.0-3.0 [facility] Comment on above: Performed By: #### L 101.9900, L501.6710 ####[facility] [address] [place], [address] Erythrocyte Sed Rateon 03-10 SED RATE 25 mm/hr Normal 0-30 [facility] Comment on above: Performed By: #### L 101.9900, L501.6710 ####[facility] [address] [place], [place], [id number] Erythrocyte sedimentation ra teOrdered By: Domo Weaver on 03-10-2025 ESR (Bld) [Velocity] 25 mm/h 0-[address] [facility] Ferritinon 03-10-2025 Ferritin [Mass/Vol] 61 ng/mL Normal 22-378 [facility] Comment on above: Performed By: #### L 503.6030, L503.0106, L503.5750 ####[facility] [address] [place], [place], [id number] Iron measurement (mass/mass) Ordered By: Carmen Lugo on 03-10-2025 Iron (Unsp spec) [Mass/Mass] 102 ug/dL 50-170 [facility] Iron+Iron Binding Capacityon 03-10-2025 Iron [Mass/Vol] 102 ug/dL Normal 50-170 [facility] Comment on above: Performed By: #### L 503.6030, L503.0106, L503.6550 ####[facility] [address] [place], [address] IRON SATURATION 29.0 Normal 13-59 [facility] Comment on above: Performed By: #### L 503.6030, L503.0106, L503.6550 ####[facility] [address] [place], [address] TIBC 353 ug/dL Normal 250-450 [facility] Comment on above: Performed By: #### L 503.6030, L503.0106, L503.6550 ####[facility] [address] [place], [address] UIBC 251 ug/dL Normal 228-428 [facility] Comment on above: Performed By: #### L 503.6030, L503.0106, L503.6550 ####[facility] [address] [place], [address] No Panel InformationOrdered By: Carmen Lugo on 03-10-2025 Unsaturated Iron Binding Capacity 251 ug/dL 228-428 [facility] Serum or plasma C reactive p rotein measurement (mass/volume)Ordered By: Domo Weaver on 03-10-2025 CRP [Mass/Vol] 8.03 mg/L High 0.0-3.0 [facility] Serum or plasma ferritin guerita surement (mass/volume)Ordered By: Carmen Lugo on 03-10-2025 Ferritin [Mass/Vol] 61 ng/mL 22-378 [facility] Serum or plasma iron saturat ion measurement (mass fraction)Ordered By: Carmen Lugo on 03-10-2025 Iron saturation [Mass fraction] 29.0 % 13-59 [facility] Vitamin B12on 03-10-2025 Cobalamin (Vitamin B12) [Mass/Vol] 614 pg/mL Normal 180-914 [facility] Comment on above: Performed By: #### L 503.6030, L503.0106, L503.6550 ####[facility] [address] [place], [address] Vitamin B12 ser/plasOrdered By: Carmen Lugo on 03-10-2025 Cobalamin (Vitamin B12) [Mass/Vol] 614 pg/mL 180-914 [facility] Laboratory - Chemistry and C hemistry - challengeOrdered By: Carmen Lugo on 03-09-2025 Glucose Ql (U) Negative [facility] Laboratory - UrinalysisOrder ed By: Carmen Lugo on 03-09-2025 Protein Ql (U) Negative [facility] Tool Planer Set Up Operator Office Visit Reporton 03-09-2025 Tool Planer Set Up Operator Office Visit Report [facility] [address], [address] [place] [address] OFFICE VISIT Date of Service: 03/09/25 MR#: [id number] Acct: [id number] Name: MARIXA AMOS Rep #: [id number] : 1995 Provider: Dr. 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 Date Name GA/Weeks Outcome Route Bth Weight Infant Gen Labor Lgth Anesthesia Del Locatn Provider FOB Unknown 07/2023-Keon 19 still Male Delivery Date: Last Updated [...] -???-???-???-???-???-??? -???-???-???-? (more content not included)... Normal [facility] Tool Planer Set Up Operator Office Visit Reporton 02-23-2025 Tool Planer Set Up Operator Office Visit Report [facility] [address] [place] [address], [address] [place] [address] OFFICE VISIT Date of Service: 02/23/25 MR#: [id number] Acct: [id number] Name: MARIXA AMOS Rep #: [id number] : 1995 Provider: Dr. 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 Date Name GA/Weeks Outcome Route Bth [facility] 07/20[facility]-Keon 19 still Male Delivery Date: Last Updated [...] -???-???-???-???-???-??? -???-??? (more content not included)... Normal [facility] L3410.9992on 02-16-2025 [facility] Misc. COMMENT Normal . [facility] Comment on above: Order Comment: [id number] 4Stelara levels Result Comment: Test Ordered: [id number] Ustekinumab Drug + Antibody Ustekinumab 3.9 ug/mL [...] R, et al. Clin Gastroenterol Hepatol 2017;15: 4907-5135. 4. Tessa SP, et al. Br J Dermatol;2015:173;855-857. 5. Grover H, et al. PLOS ONE DOI;10:1371/journal.pone.3170263. 6. Allan Billingsley, et al. Br J Dermatol 2014;170:261-273. These tests were developed and their performance characteristics determined by [facility]. They have not been cleared or approved by the Food and Drug Administration. However, both drug and anti-drug antibody assays have been developed and validated in accordance with FDA Guidance for Industry documents: Bioanalytical Method Validation (2013) and Assay Development and Validation for Immunogenicity Testing of Therapeutic Protein Products (2016). Performed at: Transfer To [address] [place] [id number] Video Network Engineer: Gregg Roberto MD, Phone: [phone] Performed at: [address] [id number] Video Network Engineer: Almas Saavedra PhD, Phone: [phone] Performed By: #### L 500.4050, L300.3900, L100.0100, L101.9900, L3410.9992, L501.6710 ####[facility] [address] [place], [place], [address] Chlamydia/GC ALEKSEY aptimaon CHLAMY,NUC ACID Negative Normal Negative [facility] Comment on above: Performed By: #### M 100.2200, L7000.1800 #### [facility] [address] [place], [place], [id number] GC BY NUC ACID Negative Normal Negative [facility] Comment on above: Result Comment: Perf ormed at: =G - [facility] [address], [place] [id number] Video Network Engineer: Rose Haney MD, Phone: [phone] Performed By: #### M 100.2200, L7000.1800 #### [facility] [address] [place], [place], [id number] Urine Cultureon 02-07-2025 [facility] Culture exhibits no growth. Normal [facility] Comment on above: Performed By: #### M 100.2200, L7000.1800 #### [facility] [address] [place], [place], [id number] Absolute lymphocyte countOrd ered By: Carmen Lugo on 02-06-2025 Lymphocytes Auto (Unsp spec) [#/Vol] 1.57 10*3/uL 0.83-4.51 [facility] Absolute neutrophil countOrd ered By: Carmen Lugo on 02-06-2025 Neutrophils (Bld) [#/Vol] 9.8 10*3/uL High 2.0-7.7 [facility] Automated lymphocyte count a s percentage of total leukocytesOrdered By: Carmen Lugo on 02-06-2025 Lymphocytes/100 WBC Auto (Unsp spec) 12.6 % Low 19-41 [facility] Basophil percentageOrdered B y: Carmen Lugo on 02-06-2025 Basophils/100 WBC (Bld) 0.4 % 0-1 [facility] CBC W/Diff, Automatedon 01-28 PLT EST A Normal ADEQ [facility] Comment on above: Performed By: #### M 100.2200, L7000.1800 #### [facility] [address] [place], [address] RED CELL MORPH NORM C+C Normal NORM C C [facility] Comment on above: Performed By: #### M 100.2200, L7000.1800 #### [facility] [address] [facility] [address] [place], [place], [id number] Chlamydia trachomatis rRNA d etection by probe and target amplification methodOrdered By: Carmen Lugo on 02-06-2025 C. trachomatis rRNA ALEKSEY+probe Ql (Unsp spec) Negative Negative [facility] Eosinophil percentageOrdered By: Carmen Lugo on 02-06-2025 Eosinophils/100 WBC (Bld) 1.7 % 0-5 [facility] Erythrocyte distribution wid th ratioOrdered By: Carmen Lugo on 02-06-2025 Erythrocyte distribution width (RBC) [Ratio] 13.1 % 11.6-14.6 [facility] Erythrocyte distribution wid th standard deviationOrdered By: Carmen Lugo on 02-06-2025 Erythrocyte distribution width (RBC) [Ratio] 43.2 fl 35.1-43.9 [facility] Erythrocyte morphology asses smentOrdered By: Carmen Lugo on 02-06-2025 RBC morphology finding Nom (Bld) NORM C+C NORMAL NORM C&C [facility] HIVon 02-06-2025 HIV Non-Reactive Normal Nonreactive [facility] Comment on above: Result Comment: Non- Reactive Reactive Repeatedly reactive samples must be confirmed according to CDC recommended confirmatory algorithms. The subresults for either HIVAG or AHIV can be used as an aid in the selection of the confirmation algorithm for reactive samples. Send out specimens with Reactive results to [facility] for confirmation. Order the HIV antibody detection and differentiation: #[id number] Performed By: #### M 100.2200, L7000.1800 #### [facility] [address] [facility] [place], [address] Hematocrit Auto (Bld) [Volum e fraction]Ordered By: Carmen Lugo on 02-06-2025 Hematocrit (Bld) [Volume fraction] 34.7 % Low 37-47 [facility] Hemoglobin A1con 02-06-2025 HbA1c (Bld) [Mass fraction] 5.5 % Normal <=5.6 [facility] Comment on above: Result Comment: Norm al < 5.7 % Prediabetic 5.7 - 6.4 % Diabetic >or= 6.5 % Please note range changes. Performed By: #### M 100.2200, L7000.1800 #### [facility] [address] [place], [address] Hemoglobin A1c percentageOrd ered By: Carmen Lugo on 02-06-2025 HbA1c (Bld) [Mass fraction] 5.5 % <5.7 [facility] Comment on above: Normal < 5.7 % Predi abetic 5.7 - 6.4 % Diabetic >or= 6.5 % Please note range changes. Hemoglobin measurementOrdere d By: Carmen Lugo on 02-06-2025 Hemoglobin (Bld) [Mass/Vol] 11.5 g/dL Low 12.0-15.0 [facility] Hepatitis C Antibodyon 02-06 Hepatitis C Ab Non-Reactive Normal Nonreactive [facility] Comment on above: Result Comment: Reac tive: Presumptive evidence of antibodies to HCV. Follow CDC recommendations for supplemental testing. Non-Reactive: Antibodies to HCV were not detected; does not exclude the possibility of exposure to HCV Reactive Results are presumptive evidence of antibodies to HCV. Follow CDC recommendations for supplemental testing. Order confirmation testing: HCV Quant by PCR testing - HCVPCR #[id number] Non Reactive: < 0.8 Equivocal: >/= 0.8 to < 1.0 Reactive: >/= 1.0 The CDC requires that a reactive/equivocal HCV antibody result be sent out for confirmation. HCV Quant by PCR testing. Performed By: #### M 100.2200, L7000.1800 #### [facility] [address] [place], [place], [id number] (012) Immature granulocytes/100 WB C Auto (Bld)Ordered By: Carmen Lugo on 02-06-2025 Immature granulocytes/100 WBC (Bld) 0.600 % 0.0-0.9 [facility] Comment on above: IG% - Immature Granu locytes (promyelocytes, myelocytes and metamyelocytes) > 1% indicates that a LEFT SHIFT is Present. L3890.6102on 02-06-2025 HEP B Surf Ag Non-Reactive Normal Nonreactive [facility] Comment on above: Result Comment: Reac tive: Presumptive evidence of HBV. Repeatedly reactive samples must be confirmed using a neutralization test ([employer] HBsAg Confirmatory Test) Non-Reactive: HBsAg not detected; does not exclude the possibility of exposure to HBV Performed By: #### M 100.2200, L7000.1800 #### [facility] [address] [facility] [place], [place], [address] L509.4006on 02-06-2025 Rubella IgG REAC Normal Nonreactive [facility] Comment on above: Result Comment: Anti body Result: Interpretation Non-Reactive: Non-Immune Reactive: Immune The following results were obtained with the [employer] Rubella IgG assay. Results from assays of other manufacturers cannot be used interchangeably. Performed By: #### M 100.2200, L7000.1800 #### [facility] [address] [facility] [place], [place], [address] Laboratory - Microbiology an d Antimicrobial susceptibilityOrdered By: Carmen Lugo on 02-06-2025 HBV surface Ag Ql (S) Non-Reactive Nonreactive [facility] Comment on above: Reactive: Presumptiv e evidence of HBV. Repeatedly reactive samples must be confirmed using a neutralization test ([employer] HBsAg Confirmatory Test)Non-Reactive: HBsAg not detected; does not exclude the possibility of exposure to HBV MCV (mean corpuscular volume ) determinationOrdered By: Carmen Lugo on 02-06-2025 MCV (RBC) [Entitic vol] 91.3 fL 81-99 [facility] Mean corpuscular hemoglobin (MCH) determinationOrdered By: Carmen Lugo on 02-06-2025 MCH (RBC) [Entitic mass] 30.3 pg 27.0-32.0 [facility] Mean corpuscular hemoglobin concentration (MCHC) determinationOrdered By: Carmen Lugo on 02-06-2025 MCHC (RBC) [Mass/Vol] 33.1 g/dL 32-36 [facility] Mean platelet volume determi nationOrdered By: Carmen Lugo on 02-06-2025 Platelet mean volume (Bld) [Entitic vol] 11.4 fL 6.2-12.0 [facility] Monocyte percentageOrdered B y: Carmen Lugo on 02-06-2025 Monocytes/100 WBC (Bld) 5.8 % 0-10 [facility] Neisseria gonorrhoeae nuclei c acid detection by amplified probe techniqueOrdered By: Carmen Zepedagerardo on 02-06-2025 N. gonorrhoeae DNA ALEKSEY+probe Ql (Unsp spec) Negative Negative [facility] Comment on above: Performed at: =[address] [id number] Director: Rose Haney MD, Phone: [phone] Neutrophil percentageOrdered By: Carmen Zepedagerardo on 02-06-2025 Neutrophils/100 WBC (Bld) 78.9 % High 47-70 [facility] No Panel InformationOrdered By: Carmen Zepedagerardo on 02-06-2025 HIV (1&2) Antibody Non-Reactive Nonreactive [facility] Comment on above: Non-ReactiveReactive Repeatedly reactive samples must be confirmed according to CDC recommended confirmatory algorithms. The subresults for either HIVAG or AHIV can be used as an aid in the selection of the confirmation algorithm for reactive samples.Send out specimens with Reactive results to [facility] for confirmation.Order the HIV antibody detection and differentiation: #[id number] Nucleated red blood cell per centageOrdered By: Carmen Zepedagerardo on 02-06-2025 Nucleated RBC/100 WBC (Bld) [Ratio] 0 % 0-5 [facility] Tool Planer Set Up Operator Office Visit Reporton 02-06-2025 Tool Planer Set Up Operator Office Visit Report [facility], [address] [place] [address] OFFICE VISIT Date of Service: 02/06/25 MR#: [id number] Acct: [id number] Name: MARIXA AMOS Rep #: [id number] : 1995 Provider: STEFANIE Figueroa ams Age/Sex: 29/F [place] [facility] [place] Status: Signed Intake Vital Signs 07/12/24 08:32 02/02/25 15:25 02/06/25 08:17 Height 5 ft 3 in 5 ft 3 in 5 ft 3 in Weight: 185 lb 8 oz BMI 32.8 BP 118/70 Intake Visit Reasons: *EST* NOB IVF 12/26, GIL 09/13/25 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 Date Name GA/Weeks Outcome Route Bth Weight Gen Labor Lgth Anesthesia Del [facility] Provider FOB Unknown 07/2023-Keon 19 still Male Delivery Date: Last Updated [...] 8 oz (more content not included)... Normal [facility] Platelet countOrdered By: Uziel Lugo on 02-06-2025 Platelets (Bld) [#/Vol] 319 10*3/uL 150-450 [facility] Platelet estimateOrdered By: Carmen Lugo on 02-06-2025 Platelets LM Ql (Bld) A ADEQ [facility] RBC Auto (Bld) [#/Vol]Ordere d By: Carmen Lugo on 02-06-2025 RBC (Bld) [#/Vol] 3.80 10*6/uL Low 4.2-5.4 [facility] Syphilis Antibodieson 2024 Syphilis Abs Non-Reactive Normal Nonreactive [facility] Comment on above: Performed By: #### M 100.2200, L7000.1800 #### [facility] [place], [address] Type AND Screenon 02-06-2025 ABO and Rh group Nom (Bld) Blood group B Rh(D) positive Normal [facility] Comment on above: Order Comment: PN Performed By: #### M 100.2200, L7000.1800 #### [facility] [address] [place], [place], [id number] Urine cultureOrdered By: Torin Lugo on 02-06-2025 Bacteria identified Cx Nom (U) Culture exhibits no growth. [facility] White blood cell (WBC) count Ordered By: Carmen Lugo on 02-06-2025 WBC (Bld) [#/Vol] 12.5 10*3/uL High 4.4-11.0 [facility] Absolute lymphocyte countOrd ered By: Domo Weaver on 02-02-2025 Lymphocytes Auto (Unsp spec) [#/Vol] 1.71 10*3/uL 0.83-4.51 [facility] Absolute neutrophil countOrd ered By: Domoyamileth Weaver on 02-02-2025 Neutrophils (Bld) [#/Vol] 7.6 10*3/uL 2.0-7.7 [facility] Anion gap in Serum or Plasma Ordered By: Domo Weaver on 02-02-2025 Anion gap [Moles/Vol] 13 mmol/L 5-15 [facility] Automated lymphocyte count a s percentage of total leukocytesOrdered By: Domorobles Weaver on 02-02-2025 Lymphocytes/100 WBC Auto (Unsp spec) 17.3 % Low 19-41 [facility] BUN/creatinine ratioOrdered By: Domorobles Weaver on 02-02-2025 Urea nitrogen/Creatinine [Mass ratio] 16.4 mg/mg 10-20 [facility] Basophil percentageOrdered B y: Domo Weaver on 02-02-2025 Basophils/100 WBC (Bld) 0.4 % 0-1 [facility] Bilirubin, totalOrdered By: Domoyamileth Weaver on 02-02-2025 Bilirubin [Mass/Vol] mg/dL 0.00-1.[address] [facility] CBC W/Diff, Automatedon Absolute Lymph 1.71 X10 3/uL Normal 0.83-4.51 [facility] Comment on above: Performed By: #### L 500.4050, L300.3900, L100.0100, L101.9900, L3410.9992, L501.6710 ####[facility] [address] [place], [address] Absolute Neut 7.6 X10 3/uL Normal 2.0-7.7 [facility] Comment on above: Performed By: #### L 500.4050, L300.3900, L100.0100, L101.9900, L3410.9992, L501.6710 ####[facility] [address] [place], [address] Basophils/100 WBC (Bld) 0.4 % Normal 0-1 [facility] Comment on above: Performed By: #### L 500.4050, L300.3900, L100.0100, L101.9900, L3410.9992, L501.6710 ####[facility] [address] [place], [address] Eosinophils/100 WBC (Bld) 0.7 % Normal 0-5 [facility] Comment on above: Performed By: #### L 500.4050, L300.3900, L100.0100, L101.9900, L3410.9992, L501.6710 ####[facility] [address] [place], [address] Erythrocyte distribution width (RBC) [Ratio] 12.7 % Normal 11.6-14.6 [facility] Comment on above: Performed By: #### L 500.4050, L300.3900, L100.0100, L101.9900, L3410.9992, L501.6710 ####[facility] [address] [place], [address] Hematocrit (Bld) [Volume fraction] 33.6 % Low 37-47 [facility] Comment on above: Performed By: #### L 500.4050, L300.3900, L100.0100, L101.9900, L3410.9992, L501.6710 ####[facility] [address] [place], [address] Hemoglobin (Bld) [Mass/Vol] 11.2 g/dL Low 12.0-15.0 [facility] Comment on above: Performed By: #### L 500.4050, L300.3900, L100.0100, L101.9900, L3410.9992, L501.6710 ####[facility] [address] [place], [address] IG% 0.500 Normal 0.0-0.9 [facility] Comment on above: Result Comment: IG% - Immature Granulocytes (promyelocytes, myelocytes and metamyelocytes) > 1% indicates that a LEFT SHIFT is Present. Performed By: #### L 500.4050, L300.3900, L100.0100, L101.9900, L3410.9992, L501.6710 ####[facility] [address] [place], [address] Lymphocytes/100 WBC (Bld) 17.3 % Low 19-41 [facility] Comment on above: Performed By: #### L 500.4050, L300.3900, L100.0100, L101.9900, L3410.9992, L501.6710 ####[facility] [address] [place], [address] MCH (RBC) [Entitic mass] 29.9 pg Normal 27.0-32.0 [facility] Comment on above: Performed By: #### L 500.4050, L300.3900, L100.0100, L101.9900, L3410.9992, L501.6710 ####[facility] [address] [place], [address] MCHC (RBC) [Mass/Vol] 33.3 g/dL Normal 32-36 [facility] Comment on above: Performed By: #### L 500.4050, L300.3900, L100.0100, L101.9900, L3410.9992, L501.6710 ####[facility] [address] [place], [address] MCV (RBC) [Entitic vol] 89.6 fL Normal 81-99 [facility] Comment on above: Performed By: #### L 500.4050, L300.3900, L100.0100, L101.9900, L3410.9992, L501.6710 ####[facility] [address] [place], [address] Monocytes/100 WBC (Bld) 4.5 % Normal 0-10 [facility] Comment on above: Performed By: #### L 500.4050, L300.3900, L100.0100, L101.9900, L3410.9992, L501.6710 ####[facility] [address] [place], [address] Neutrophils/100 WBC (Bld) 76.6 % High 47-70 [facility] Comment on above: Performed By: #### L 500.4050, L300.3900, L100.0100, L101.9900, L3410.9992, L501.6710 ####[facility] [address] [place], [address] Nucleated RBC (Bld) [#/Vol] 0 10*3/uL Normal 0-5 [facility] Comment on above: Performed By: #### L 500.4050, L300.3900, L100.0100, L101.9900, L3410.9992, L501.6710 ####[facility] [address] [place], [address] Platelet mean volume (Bld) [Entitic vol] 10.2 fL Normal 6.2-12.0 [facility] Comment on above: Performed By: #### L 500.4050, L300.3900, L100.0100, L101.9900, L3410.9992, L501.6710 ####[facility] [address] [place], [address] Platelets (Bld) [#/Vol] 388 10*3/uL Normal 150-450 [facility] Comment on above: Performed By: #### L 500.4050, L300.3900, L100.0100, L101.9900, L3410.9992, L501.6710 ####[facility] [address] [place], [address] RBC (Bld) [#/Vol] 3.75 10*6/uL Low 4.2-5.4 [facility] Comment on above: Performed By: #### L 500.4050, L300.3900, L100.0100, L101.9900, L3410.9992, L501.6710 ####[facility] [address] [place], [address] RDW SD 41.8 fl Normal 35.1-43.9 [facility] Comment on above: Performed By: #### L 500.4050, L300.3900, L100.0100, L101.9900, L3410.9992, L501.6710 ####[facility] [address] [place], [address] WBC (Bld) [#/Vol] 9.9 10*3/uL Normal 4.4-11.0 [facility] Comment on above: Performed By: #### L 500.4050, L300.3900, L100.0100, L101.9900, L3410.9992, L501.6710 ####[facility] [address] [place], [address] CRPon 02-02-2025 C-REACTIVE PROT 11.70 mg/L High 0.0-3.0 [facility] Comment on above: Performed By: #### L 500.4050, L300.3900, L100.0100, L101.9900, L3410.9992, L501.6710 ####[facility] [address] [place], [address] Carbon dioxide, total [Moles /volume] in Central venous bloodOrdered By: Domo Friend on 02-02-2025 CO2 [Moles/Vol] 18.9 mmol/L Low 21.0-32.0 [facility] Chloride assayOrdered By: Ra otto Friend on 02-02-2025 Chloride [Moles/Vol] 103 mmol/L 98-[address] [facility] Comprehensive Metabolic Prof ilon 02-02-2025 Albumin [Mass/Vol] 4.3 g/dL Normal 3.5-5.0 [facility] Comment on above: Performed By: #### L 500.4050, L300.3900, L100.0100, L101.9900, L3410.9992, L501.6710 ####[facility] [address] [place], [address] Albumin/Globulin [Mass ratio] 1.4 {ratio} Normal 0.9-2.4 [facility] Comment on above: Performed By: #### L 500.4050, L300.3900, L100.0100, L101.9900, L3410.9992, L501.6710 ####[facility] [address] [place], [address] ALK PHOS 64 U/L Normal 35-104 [facility] Comment on above: Performed By: #### L 500.4050, L300.3900, L100.0100, L101.9900, L3410.9992, L501.6710 ####[facility] [address] [place], [address] ALT [Catalytic activity/Vol] 22 U/L Normal <=34 [facility] Comment on above: Performed By: #### L 500.4050, L300.3900, L100.0100, L101.9900, L3410.9992, L501.6710 ####[facility] [address] [place], [address] AST [Catalytic activity/Vol] 14 U/L Normal <=31 [facility] Comment on above: Performed By: #### L 500.4050, L300.3900, L100.0100, L101.9900, L3410.9992, L501.6710 ####[facility] [address] [place], [address] BUN/CRE 16.4 RATIO Normal 10-20 [facility] Comment on above: Performed By: #### L 500.4050, L300.3900, L100.0100, L101.9900, L3410.9992, L501.6710 ####[facility] [address] [place], [address] Calcium [Mass/Vol] 9.2 mg/dL Normal 7.6-11.0 [facility] Comment on above: Performed By: #### L 500.4050, L300.3900, L100.0100, L101.9900, L3410.9992, L501.6710 ####[facility] [address] [place], [address] Chloride [Moles/Vol] 103 mmol/L Normal 98-[address] [facility] Comment on above: Performed By: #### L 500.4050, L300.3900, L100.0100, L101.9900, L3410.9992, L501.6710 ####[facility] [address] [place], [address] CO2 [Moles/Vol] 18.9 mmol/L Low 21.0-32.0 [facility] Comment on above: Performed By: #### L 500.4050, L300.3900, L100.0100, L101.9900, L3410.9992, L501.6710 ####[facility] [address] [place], [address] Creatinine [Mass/Vol] 0.56 mg/dL Low 0.70-1.20 [facility] Comment on above: Performed By: #### L 500.4050, L300.3900, L100.0100, L101.9900, L3410.9992, L501.6710 ####[facility] [address] [place], [address] GAP 13 Normal 5-15 [facility] Comment on above: Performed By: #### L 500.4050, L300.3900, L100.0100, L101.9900, L3410.9992, L501.6710 ####[facility] [address] [place], [address] GFR/1.73 sq M.predicted among non-blacks MDRD (S/P/Bld) [Vol rate/Area] 126 mL/min/{1.73_m2} Normal >60 [facility] Comment on above: Result Comment: mL/m in/1.73m2 CKD-EPI Creatinine Equation (2020) Performed By: #### L 500.4050, L300.3900, L100.0100, L101.9900, L3410.9992, L501.6710 ####[facility] [address] [place], [address] Globulin (S) [Mass/Vol] 3.1 g/dL Normal 2.2-4.2 [facility] Comment on above: Performed By: #### L 500.4050, L300.3900, L100.0100, L101.9900, L3410.9992, L501.6710 ####[facility] [address] [place], [address] Glucose [Mass/Vol] 132 mg/dL High 70-99 [facility] Comment on above: Performed By: #### L 500.4050, L300.3900, L100.0100, L101.9900, L3410.9992, L501.6710 ####[facility] [address] [place], [address] Potassium [Moles/Vol] 3.9 mmol/L Normal 3.3-5.1 [facility] Comment on above: Performed By: #### L 500.4050, L300.3900, L100.0100, L101.9900, L3410.9992, L501.6710 ####[facility] [address] [place], [address] Sodium [Moles/Vol] 134 mmol/L Normal 133-145 [facility] Comment on above: Performed By: #### L 500.4050, L300.3900, L100.0100, L101.9900, L3410.9992, L501.6710 ####[facility] [address] [place], [address] T BILI < 0.15 Normal 0.00-1.30 [facility] Comment on above: Performed By: #### L 500.4050, L300.3900, L100.0100, L101.9900, L3410.9992, L501.6710 ####[facility] [address] [place], [address] T PROT 7.4 g/dL Normal 5.9-8.4 [facility] Comment on above: Performed By: #### L 500.4050, L300.3900, L100.0100, L101.9900, L3410.9992, L501.6710 ####[facility] [address] [place], [place], [address] Urea nitrogen [Mass/Vol] 9 mg/dL Normal 4-19 [facility] Comment on above: Performed By: #### L 500.4050, L300.3900, L100.0100, L101.9900, L3410.9992, L501.6710 ####[facility] [address] [place], [address] Eosinophil percentageOrdered By: Domo Weaver on 02-02-2025 Eosinophils/100 WBC (Bld) 0.7 % 0-5 [facility] Erythrocyte Sed Rateon 02-02 SED RATE 28 mm/hr Normal 0-30 [facility] Comment on above: Performed By: #### L 500.4050, L300.3900, L100.0100, L101.9900, L3410.9992, L501.6710 ####[facility] [address] [place], [place], [address] Erythrocyte distribution wid th ratioOrdered By: Domo Weaver on 02-02-2025 Erythrocyte distribution width (RBC) [Ratio] 12.7 % 11.6-14.6 [facility] Erythrocyte distribution wid th standard deviationOrdered By: Domo Weaver on 02-02-2025 Erythrocyte distribution width (RBC) [Ratio] 41.8 fl 35.1-43.9 [facility] Erythrocyte sedimentation ra teOrdered By: Domo Weaver on 02-02-2025 ESR (Bld) [Velocity] 28 mm/h 0-[address] [facility] Glomerular filtration rate ( GFR) estimation/1.73 sq m using serum, plasma, or whole bOrdered By: Domo Weaver on 02-02-2025 GFR/1.73 sq M.predicted among non-blacks MDRD (S/P/Bld) [Vol rate/Area] 126 mL/min/{1.73_m2} >60 [facility] Comment on above: mL/min/1.73m2 CKD-EP I Creatinine Equation (2020) Hematocrit Auto (Bld) [Volum e fraction]Ordered By: Domo Weaver on 02-02-2025 Hematocrit (Bld) [Volume fraction] 33.6 % Low 37-47 [facility] Hemoglobin measurementOrdere d By: Domo Weaver on 02-02-2025 Hemoglobin (Bld) [Mass/Vol] 11.2 g/dL Low 12.0-15.0 [facility] Immature granulocytes/100 WB C Auto (Bld)Ordered By: Domo Weaver on 02-02-2025 Immature granulocytes/100 WBC (Bld) 0.500 % 0.0-0.9 [facility] Comment on above: IG% - Immature Granu locytes (promyelocytes, myelocytes and metamyelocytes) > 1% indicates that a LEFT SHIFT is Present. International normalized rat io (INR) calculationOrdered By: Domo Weaver on 02-02-2025 INR Coag (Bld) [Relative time] 0.9 {INR} [facility] Laboratory - Chemistry and C hemistry - challengeOrdered By: Domo Weaver on 02-02-2025 AST [Catalytic activity/Vol] 14 U/L <32 [facility] MCV (mean corpuscular volume ) determinationOrdered By: Domo Weaver on 02-02-2025 MCV (RBC) [Entitic vol] 89.6 fL 81-99 [facility] Mean corpuscular hemoglobin (MCH) determinationOrdered By: Domo Weaver on 02-02-2025 MCH (RBC) [Entitic mass] 29.9 pg 27.0-32.0 [facility] Mean corpuscular hemoglobin concentration (MCHC) determinationOrdered By: Domo Weaver on 02-02-2025 MCHC (RBC) [Mass/Vol] 33.3 g/dL 32-36 [facility] Mean platelet volume determi nationOrdered By: Domo Weaver on 02-02-2025 Platelet mean volume (Bld) [Entitic vol] 10.2 fL 6.2-12.0 [facility] Monocyte percentageOrdered B y: Domo Weaver on 02-02-2025 Monocytes/100 WBC (Bld) 4.5 % 0-10 [facility] Neutrophil percentageOrdered By: Domo Friend on 02-02-2025 Neutrophils/100 WBC (Bld) 76.6 % High 47-70 [facility] Nucleated red blood cell per centageOrdered By: Domo Friend on 02-02-2025 Nucleated RBC/100 WBC (Bld) [Ratio] 0 % 0-5 [facility] [employer] Set Up Operator Office Visit Reporton 02-02-2025 Tool Planer Set Up Operator Office Visit Report [facility] [address], [address] [place] [address] OFFICE VISIT Date of Service: 02/02/25 MR#: [id number] Acct: [id number] Name: MARIXA AMOS Rep #: [id number] : 1995 Provider: STEFANIE coronel Age/Sex: 29/F Location: [facility] Status: Signed Intake Vital Signs 01/25/25 14:45 02/02/25 15:25 Height 5 ft 3 in 5 ft 3 in Weight: 184 lb 8 oz 186 lb 4 oz BMI 32.6 33.0 BP 128/62 H 143/86 H Blood Pressure Location Rt brachial Position Sitting Intake Visit Reasons: fu early spotting per 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: No Is patient in pain?: No [...] mg-folate no.1 1 mg-dha 300 mg capsule (PNV-Portage) prednisone 10 mg tablet 10 mg PO [...] 3-4 times per week duration: 45-60 minutes/day cathy/islam: None seatbelt use: always do you feel safe at home: Yes 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 02/02/25 1609 Date Mary Beth Allen CNM Cosigner Signature: Date (if applicable) CC: Normal [facility] Platelet countOrdered By: Ra clarita Weaver on 02-02-2025 Platelets (Bld) [#/Vol] 388 10*3/uL 150-450 [facility] Potassium measurement (mass/ volume)Ordered By: Domo Weaver on 02-02-2025 Potassium (Unsp spec) [Mass/Vol] 3.9 mmol/L 3.3-5.1 [facility] Prothrombin Time w/INRon INR Coag (PPP) [Relative time] 0.9 {INR} Normal [facility] Comment on above: Performed By: #### L 500.4050, L300.3900, L100.0100, L101.9900, L3410.9992, L501.6710 ####[facility] [address] [place], [place], [id number] PT Coag (PPP) [Time] 12.2 s Normal 11.7-14.[address] [facility] Comment on above: Performed By: #### L 500.4050, L300.3900, L100.0100, L101.9900, L3410.9992, L501.6710 ####[facility] [address] [place], [address] Prothrombin timeOrdered By: Domo Waever on 02-02-2025 PT Coag (PPP) [Time] 12.2 s 11.7-14.[address] [facility] RBC Auto (Bld) [#/Vol]Ordere d By: Domo Weaver on 02-02-2025 RBC (Bld) [#/Vol] 3.75 10*6/uL Low 4.2-5.4 [facility] Serum creatinine measurement (mass/volume)Ordered By: Domo Wevaer on 02-02-2025 Creatinine [Mass/Vol] 0.56 mg/dL Low 0.70-1.20 [facility] Serum globulin measurementOr dered By: Domo Weaver on 02-02-2025 Globulin (S) [Mass/Vol] 3.1 g/dL 2.2-4.2 [facility] Serum glucose measurement (m ass/volume)Ordered By: Domo Weaver on 02-02-2025 Glucose [Mass/Vol] 132 mg/dL High 70-99 [facility] Serum or plasma C reactive p rotein measurement (mass/volume)Ordered By: Domo Weaver on 02-02-2025 CRP [Mass/Vol] 11.70 mg/L High 0.0-3.0 [facility] Serum or plasma alanine parisi otransferase (ALT) measurementOrdered By: Domo Weaver on 02-02-2025 ALT [Catalytic activity/Vol] 22 U/L <35 [facility] Serum or plasma albumin arielle urement (mass/volume)Ordered By: Domo Weaver on 02-02-2025 Albumin [Mass/Vol] 4.3 g/dL 3.5-5.0 [facility] Serum or plasma albumin/glob ulin mass ratioOrdered By: Domo Weaver on 02-02-2025 Albumin/Globulin [Mass ratio] 1.4 {ratio} 0.9-2.4 [facility] Serum or plasma alkaline marcelo sphatase measurementOrdered By: oDmo Weaver on 02-02-2025 ALP [Catalytic activity/Vol] 64 U/L 35-104 [facility] Serum or plasma calcium arielle urement (mass/volume)Ordered By: Domo Weaver on 02-02-2025 Calcium [Mass/Vol] 9.2 mg/dL 7.6-11.0 [facility] Serum or plasma urea nitroge n measurement (mass/volume)Ordered By: Domo Weaver on 02-02-2025 Urea nitrogen [Mass/Vol] 9 mg/dL 4-19 [facility] Sodium levelOrdered By: Alisa Michelle on 02-02-2025 Sodium [Moles/Vol] 134 mmol/L 133-145 [facility] Total proteinOrdered By: Lai Weaver on 02-02-2025 Protein [Mass/Vol] 7.4 g/dL 5.9-8.4 [facility] White blood cell (WBC) count Ordered By: Domo Weaver on 02-02-2025 WBC (Bld) [#/Vol] 9.9 10*3/uL 4.4-11.0 [facility] Laboratory - Chemistry and C hemistry - challengeOrdered By: Carmen Lugo on 01-26-2025 HCG ( test) Ql (U) Positive [facility] Office Visit Reporton 2024 Office Visit Report [facility] [address] [place] [address] OFFICE VISIT Date of Service: 01/26/25 MR#: [id number] Acct: [id number] Patient: MARIXA AMOS Rep #: [id number] : 1995 Provider: Dr. Carmen dixon MD Age/Sex: 29/F [place] [facility] Status: Signed Intake Vital Signs 07/12/24 08:32 01/25/25 14:45 Height 5 ft 3 in 5 ft 3 in Weight: 184 lb 8 oz BMI 32.6 BP 128/62 H Blood Pressure Location Rt brachial Position Sitting Intake Visit Reasons: Pre new ob, confirm preg, vitals Chief Complaint: Fertility consult 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: No Accompanied by: Is patient in [...] mg-folate no.1 1 mg-dha 300 mg capsule (PNV-Portage) prednisone 10 mg tablet 10 mg PO [...] unspecified 01/27/25 1136 Date Carmen Lugo MD [facility] Signature: Date (if applicable) CC: [facility] OB TRANSVAGINALon 025 OB TRANSVAGINAL Interpreted [...] evaluation for early dating. View: Sufficient [facility] Blood type and Indirect anti body screen panel (Bld)on 01-22-2025 ABO group Nom (Bld) B [facility] Blood group antibody screen Ql Negative [facility] D Ag Ql (Bld) Positive [facility] ABO group Nom (Bld) B [facility] Comment on above: Performed By: #### 2 243-4 #### [facility] ([id number]) [facility] ([facility]) [address] [place] [address] Blood group antibody screen Ql Negative [facility] Comment on above: Performed By: #### 2 243-4 #### [facility] ([id number]) [facility] ([facility]) [address] [place] [address] D Ag Ql (Bld) Positive [facility] Comment on above: Performed By: #### 2 243-4 #### [facility] ([id number]) [facility] ([facility]) [address] [place] [address] C. trachomatis and N. gonorr hoeae DNA ALEKSEY+probe Nom (Unsp spec)on 01-22-2025 C. trachomatis rRNA ALEKSEY+probe Ql (Unsp spec) Negative Normal Negative [facility] Comment on above: Order Comment: REF V ALUES FOLLICULAR PHASE 20-144 MID CYCLE 64-357 LUTEAL PHASE 56-214 POSTMENOPAUSE < 32 PREPUBERTY < 20 FEMALE 10-18Y 8-110 MALE 10-18Y < 20 ADULT MALE < 40 Performed By: #### 2 243-4 #### [facility] ([id number]) [facility] ([facility]) [address] [place] [address] N. gonorrhoeae DNA Probe+sig amp Ql (Unsp spec) Negative Normal Negative [facility] Comment on above: Order Comment: REF V ALUES FOLLICULAR PHASE 20-144 MID CYCLE 64-357 LUTEAL PHASE 56-214 POSTMENOPAUSE < 32 PREPUBERTY < 20 FEMALE 10-18Y 8-110 MALE 10-18Y < 20 ADULT MALE < 40 Performed By: #### 2 243-4 #### [facility] ([id number]) [facility] ([facility]) [address] [place] [id number] CBC W Auto Differential pane l (Bld)on 01-22-2025 Basophils (Bld) [#/Vol] 0.04 10*3/uL [facility] Basophils/100 WBC (Bld) 0.5 % 0.0 - 2.0 % [facility] Eosinophils (Bld) [#/Vol] 0.07 10*3/uL [facility] Eosinophils/100 WBC (Bld) 0.8 % 0.0 - 6.0 % [facility] Erythrocyte distribution width (RBC) [Ratio] 12.7 % 11.5 - 14.5 % [facility] Hematocrit (Bld) [Volume fraction] 32.8 % Low 36.0 - 46.0 % [facility] Hemoglobin (Bld) [Mass/Vol] 11.1 g/dL Low 12.0 - 16.0 g/dL [facility] Immature granulocytes (Bld) [#/Vol] 0.05 10*3/uL [facility] Immature granulocytes/100 WBC (Bld) 0.6 % 0.0 - 0.9 % [facility] Comment on above: Immature Granulocyte Count (IG) includes promyelocytes, myelocytes and metamyelocytes but does not include bands. Percent differential counts (%) should be interpreted in the context of the absolute cell counts (cells/UL). Interpretation and review of laboratory results Abnormal [facility] Lymphocytes (Bld) [#/Vol] 1.19 10*3/uL Low [facility] Lymphocytes/100 WBC (Bld) 13.9 % 13.0 - 44.0 % [facility] MCH (RBC) [Entitic mass] 30.1 pg 26.0 - 34.0 pg [facility] MCHC (RBC) [Mass/Vol] 33.8 g/dL 32.0 - 36.0 g/dL [facility] MCV (RBC) [Entitic vol] 89 fL 80 - 100 fL [facility] Monocytes (Bld) [#/Vol] 0.34 10*3/uL [facility] Monocytes/100 WBC (Bld) 4 % 2.0 - 10.0 % [facility] Neutrophils (Bld) [#/Vol] 6.86 10*3/uL [facility] Comment on above: Percent differential counts (%) should be interpreted in the context of the absolute cell counts (cells/uL). Neutrophils/100 WBC (Bld) 80.2 % 40.0 - 80.0 % [facility] Nucleated RBC/100 WBC (Bld) [Ratio] 0 % [facility] Platelets (Bld) [#/Vol] 319 10*3/uL [facility] RBC (Bld) [#/Vol] 3.69 10*6/uL [facility] WBC (Bld) [#/Vol] 8.6 10*3/uL [facility] Basophils (Bld) [#/Vol] 0.04 x10*3/uL Normal 0.00-0.10 [facility] Comment on above: Performed By: #### 2 243-4 #### [facility] ([id number]) [facility] ([facility]) [address] [place] [address] Basophils/100 WBC (Bld) 0.5 % Normal 0.0-2.0 [facility] Comment on above: Performed By: #### 2 243-4 #### [facility] ([id number]) [facility] ([facility]) [address] [place] [address] Eosinophils (Bld) [#/Vol] 0.07 x10*3/uL Normal 0.00-0.70 [facility] Comment on above: Performed By: #### 2 243-4 #### [facility] ([id number]) [facility] ([facility]) [address] [place] [id number] Eosinophils/100 WBC (Bld) 0.8 % Normal 0.0-6.0 [facility] Comment on above: Performed By: #### 2 243-4 #### [facility] ([id number]) [facility] ([facility]) [address] [place] [id number] Erythrocyte distribution width (RBC) [Ratio] 12.7 % Normal 11.5-14.5 [facility] Comment on above: Performed By: #### 2 243-4 #### [facility] ([id number]) [facility] ([facility]) [address] [place] [address] Hematocrit (Bld) [Volume fraction] 32.8 % Low 36.0-46.0 [facility] Comment on above: Performed By: #### 2 243-4 #### [facility] ([id number]) [facility] ([facility]) [address] [place] [address] Hemoglobin (Bld) [Mass/Vol] 11.1 g/dL Low 12.0-16.0 [facility] Comment on above: Performed By: #### 2 243-4 #### [facility] ([id number]) [facility] ([facility]) [address] [place] [id number] Immature granulocytes (Bld) [#/Vol] 0.05 x10*3/uL Normal 0.00-0.70 [facility] Comment on above: Performed By: #### 2 243-4 #### [facility] ([id number]) [facility] ([facility]) [address] [place] [id number] Immature granulocytes/100 WBC (Bld) 0.6 % Normal 0.0-0.9 [facility] Comment on above: Result Comment: Ewa ture Granulocyte Count (IG) includes promyelocytes, myelocytes and metamyelocytes but does not include bands. Percent differential counts (%) should be interpreted in the context of the absolute cell counts (cells/UL). Performed By: #### 2 243-4 #### [facility] ([id number]) [facility] ([facility]) [address] [place] [address] Lymphocytes (Bld) [#/Vol] 1.19 x10*3/uL Low 1.20-4.80 [facility] Comment on above: Performed By: #### 2 243-4 #### [facility] ([id number]) [facility] ([facility]) [address] [place] [id number] Lymphocytes/100 WBC (Bld) 13.9 % Normal 13.0-44.0 [facility] Comment on above: Performed By: #### 2 243-4 #### [facility] ([id number]) [facility] ([facility]) [address] [place] [address] MCH (RBC) [Entitic mass] 30.1 pg Normal 26.0-34.0 [facility] Comment on above: Performed By: #### 2 243-4 #### [facility] ([id number]) [facility] ([facility]) [address] [place] [address] MCHC (RBC) [Mass/Vol] 33.8 g/dL Normal 32.0-36.0 [facility] Comment on above: Performed By: #### 2 243-4 #### [facility] ([id number]) [facility] ([facility]) [address] [place] [address] MCV (RBC) [Entitic vol] 89 fL Normal 80-100 [facility] Comment on above: Performed By: #### 2 243-4 #### [facility] ([id number]) [facility] ([facility]) [address] [place] [address] Monocytes (Bld) [#/Vol] 0.34 x10*3/uL Normal 0.10-1.00 [facility] Comment on above: Performed By: #### 2 243-4 #### [facility] ([id number]) [facility] ([facility]) [address] [place] [address] Monocytes/100 WBC (Bld) 4.0 % Normal 2.0-10.0 [facility] Comment on above: Performed By: #### 2 243-4 #### [facility] ([id number]) [facility] ([facility]) [address] [place] [address] Neutrophils (Bld) [#/Vol] 6.86 x10*3/uL Normal 1.20-7.70 [facility] Comment on above: Result Comment: Perc ent differential counts (%) should be interpreted in the context of the absolute cell counts (cells/uL). Performed By: #### 2 243-4 #### [facility] ([id number]) [facility] ([facility]) [address] [place] [address] Neutrophils/100 WBC (Bld) 80.2 % Normal 40.0-80.0 [facility] Comment on above: Performed By: #### 2 243-4 #### [facility] ([id number]) [facility] ([facility]) [address] [place] [address] Nucleated RBC/100 WBC (Bld) [Ratio] 0.0 /100 WBCs Normal 0.0-0.0 [facility] Comment on above: Performed By: #### 2 243-4 #### [facility] ([id number]) [facility] ([facility]) [address] [place] [address] Platelets (Bld) [#/Vol] 319 x10*3/uL Normal 150-450 [facility] Comment on above: Performed By: #### 2 243-4 #### [facility] ([id number][facility] ([facility]) [address] [place] [address] RBC (Bld) [#/Vol] 3.69 x10*6/uL Low 4.00-5.20 [facility] Comment on above: Performed By: #### 2 243-4 #### MARIA E KAPADIA ([id number]) [facility] ([facility]) [address] [id number] WBC (Bld) [#/Vol] 8.6 x10*3/uL Normal 4.4-11.3 [facility] Comment on above: Performed By: #### 2 243-4 #### MARIA E KAPADIA ([id number]) [facility] ([facility]) [address] [place] [address] Choriogonadotropin.beta subu niton 01-22-2025 [place] [address] m[IU]/mL High <5 U [facility] Comment on above: Order Comment: REF [...] #### 2 243-4 #### MARIA E KAPADIA ([id number]) [facility] LAB ([facility]) [address] [place] [id number] Comprehensive metabolic 2000 panelon 01-22-2025 Albumin BCP dye [Mass/Vol] 4.5 g/dL 3.4 - 5.0 g/dL [facility] ALP [Catalytic activity/Vol] 56 U/L 33 - 110 U/L [facility] ALT With P-5'-P [Catalytic activity/Vol] 21 U/L 7 - 45 U/L [facility] Comment on above: Patients treated wit h Sulfasalazine may generate falsely decreased results for ALT. Anion gap [Moles/Vol] 15 mmol/L 10 - 2 0 mmol/L [facility] AST With P-5'-P [Catalytic activity/Vol] 18 U/L 9 - 39 U/L [facility] Bilirubin [Mass/Vol] 0.2 mg/dL 0.0 - 1 .2 mg/dL [facility] Calcium [Mass/Vol] 9.4 mg/dL 8.6 - 10. 3 mg/dL [facility] Chloride [Moles/Vol] 106 mmol/L 98 - 10 7 mmol/L [facility] CO2 [Moles/Vol] 19 mmol/L Low 21 - 32 mmol/L [facility] Creatinine [Mass/Vol] 0.83 mg/dL 0.50 - 1.05 mg/dL [facility] eGFR - PINF [facility] Comment on above: Calculations of isabelle mated GFR are performed using the 2020 CKD-EPI Study Refit equation without the race variable for the IDMS-Traceable creatinine methods. https://jasn.asnjournals.org/content/early//ASN.11831 76317 Glucose [Mass/Vol] 110 mg/dL High 74 - 99 mg/dL [facility] Interpretation and review of laboratory results Abnormal [facility] Potassium [Moles/Vol] 4.3 mmol/L 3.5 - 5.3 mmol/L [facility] Protein [Mass/Vol] 6.9 g/dL 6.4 - 8.2 g/dL [facility] Sodium [Moles/Vol] 136 mmol/L 136 - 145 mmol/L [facility] Urea nitrogen [Mass/Vol] 10 mg/dL 6 - 23 mg/dL [facility] Albumin BCP dye [Mass/Vol] 4.5 g/dL Normal 3.4-5.0 [facility] Comment on above: Performed By: #### 2 243-4 #### MARIA E KAPADIA ([id number]) [facility] LAB ([facility]) [address] [place] [address] ALP [Catalytic activity/Vol] 56 U/L Normal 33-110 [facility] Comment on above: Performed By: #### 2 243-4 #### MARIA E KAPADIA ([id number]) [facility] LAB ([facility]) [address] [place] [address] ALT With P-5'-P [Catalytic activity/Vol] 21 U/L Normal 7-45 [facility] Comment on above: Result Comment: Silvina ents treated with Sulfasalazine may generate falsely decreased results for ALT. Performed By: #### 2 243-4 #### [facility] E KAPADIA ([id number]) [facility] LAB ([facility]) [address] [place] [address] Anion gap [Moles/Vol] 15 mmol/L Normal 10-20 [facility] Comment on above: Performed By: #### 2 243-4 #### MARIA E KAPADIA ([id number]) [facility] LAB ([facility]) [address] [place] [address] AST With P-5'-P [Catalytic activity/Vol] 18 U/L Normal 9-39 [facility] Comment on above: Performed By: #### 2 243-4 #### MARIA E KAPADIA ([id number]) [facility] LAB ([facility]) [address] [place] [address] Bilirubin [Mass/Vol] 0.2 mg/dL Normal 0.0-1.2 [facility] Comment on above: Performed By: #### 2 243-4 #### MARIA E KAPADIA ([id number]) [facility] LAB ([facility]) [address] [place] [address] Calcium [Mass/Vol] 9.4 mg/dL Normal 8.6-10.3 [facility] Comment on above: Performed By: #### 2 243-4 #### MARIA E KAPADIA ([id number]) [facility] LAB ([facility]) [address] [place] [address] Chloride [Moles/Vol] 106 mmol/L Normal 98-107 [facility] Comment on above: Performed By: #### 2 243-4 #### MARIA E KAPADIA ([id number]) [facility] LAB ([facility]) [address] [place] [address] CO2 [Moles/Vol] 19 mmol/L Low 21-32 [facility] Comment on above: Performed By: #### 2 243-4 #### MARIA E KAPADIA ([id number]) [facility] LAB ([facility]) [address] [place] [address] Creatinine [Mass/Vol] 0.83 mg/dL Normal 0.50-1.05 [facility] Comment on above: Performed By: #### 2 243-4 #### MARIA E KAPADIA ([id number]) [facility] LAB ([facility]) [address] [place] [address] GFR/1.73 sq M.predicted MDRD (S/P/Bld) [Vol rate/Area] mL/min/{1.73_m2} Normal >60 [facility] Comment on above: Result Comment: Calc ulations of estimated GFR are performed using the 2020 CKD-EPI Study Refit equation without the race variable for the IDMS-Traceable creatinine methods. https://jasn.asnjournals.org/content/early//ASN.97904 81172 Performed By: #### 2 243-4 #### MARIA E KAPADIA ([id number]) [facility] LAB ([facility]) [address] [place] [address] Glucose [Mass/Vol] 110 mg/dL High 74-99 [facility] Comment on above: Performed By: #### 2 243-4 #### MARIA E KAPADIA ([id number]) [facility] LAB ([facility]) [address] [place] [address] Potassium [Moles/Vol] 4.3 mmol/L Normal 3.5-5.3 [facility] Comment on above: Performed By: #### 2 243-4 #### MARIA E KAPADIA ([id number]) [facility] LAB ([facility]) [address] [place] [address] Protein [Mass/Vol] 6.9 g/dL Normal 6.4-8.2 [facility] Comment on above: Performed By: #### 2 243-4 #### MARIA E KAPADIA ([id number]) [facility] LAB ([facility]) [address] [place] [address] Sodium [Moles/Vol] 136 mmol/L Normal 136-145 [facility] Comment on above: Performed By: #### 2 243-4 #### [facility]IA ([id number]) [facility] LAB ([facility]) [address] [place] [address] Urea nitrogen [Mass/Vol] 10 mg/dL Normal 6-23 [facility] Comment on above: Performed By: #### 2 243-4 #### [facility] E KAPADIA ([id number]) [facility] LAB ([facility]) [address] [place] [address] HCG.beta subunit Qnon 2024 Interpretation and review of laboratory results Abnormal [facility] Total HCG measuremen t is performed using the Елена Spiracur Access Immunoassay which detects intact HCG and free beta HCG subunit. This test is not indicated for use as a tumor marker. HCG testing is performed using a different test methodology at [facility] than other [facility]. Direct result comparison should only be made within the same method. [facility] Human Chorionic Gonadotropin , Serum Quantitativeon 01-22-2025 [place] [address] m[IU]/mL High [facility] Comment on above: Low-level positive H CG [...] Ql (Unsp spec) None Seen None Seen [facility] T. vaginalis Wet prep Ql (Unsp spec) None Seen None Seen [facility] WBC Wet prep Ql (Vag fld) 1-2 [facility] Yeast Wet prep Ql (Vag fld) None Seen None Seen [facility] Microscopic observation Wet prep Nom (Unsp spec)on 01-22-2025 Clue cells Wet prep Ql (Unsp spec) None Seen Normal None Seen [facility] Comment on above: Performed By: #### 2 243-4 #### [facility] E KAPADIA ([id number]) [facility] LAB ([facility]) [address] [place] [address] T. vaginalis Wet prep Ql (Unsp spec) None Seen Normal None Seen [facility] Comment on above: Performed By: #### 2 243-4 #### [facility] E KAPADIA ([id number]) [facility] LAB ([facility]) [address] [place] [address] WBC Wet prep Ql (Vag fld) 1-2 Normal [facility] Comment on above: Performed By: #### 2 243-4 #### MARIA E KAPADIA ([id number]) [facility] LAB ([facility]) [address] [place] [address] Yeast Wet prep Ql (Vag fld) None Seen Normal None Seen [facility] Comment on above: Performed By: #### 2 243-4 #### MARIA E KAPADIA ([id number]) [facility] LAB ([facility]) [address] [id number] US OB LESS THAN 14 WEEKS EAR [place] 01-22-2025 US OB LESS THAN 14 WEEKS EARLY Interpreted By: Lisa Parmar, STUDY: US OB LESS THAN 14 WEEKS EARLY 01/22/2025 12:37 pm INDICATION: Signs/Symptoms:6 weeks with brown/pink discharge and lower back pain COMPARISON: 01/18/2025 ACCESSION NUMBER(S): [id number] ORDERING CLINICIAN: ZANE PRYOR TECHNIQUE: Transabdominal and [...] Lisa Parmar 01/22/2025 1:12 PM Dictation workstation: [id number] [facility] US for in first tr imesteron 01-22-2025 Single live intraute rine gestation of 6 weeks and 5 days sonographic gestational age. There has been normal interval growth since 01/18/2025. 0.4 x 0.6 x 0.9 cm subchorionic hemorrhage. Signed by: Lisa Parmar 01/22/2025 1:12 PM Dictation workstation: [id number] Interpreted By: Lisa Parmar, STUDY: US OB LESS THAN 14 WEEKS EARLY 01/22/2025 12:37 pm INDICATION: Signs/Symptoms:6 weeks with brown/pink discharge and lower back pain COMPARISON: 01/18/2025 ACCESSION NUMBER(S): [id number] ORDERING CLINICIAN: ZANE PRYOR TECHNIQUE: Transabdominal and [...] lower back pain COMPARISON: 01/18/2025 ACCESSION NUMBER(S): [id number] ORDERING CLINICIAN: ZANE PRYOR TECHNIQUE: Transabdominal and [...] Lisa Parmar 01/22/2025 1:12 PM Dictation workstation: [id number] [facility] Work Phone: Radiology Study observation (narrative) [facility] Work Phone: US for in first tr imesterOrdered By: Lisa Parmar on 01-22-2025 [facility] Work Phone: Urinalysis complete W Reflex Culture panel (U)on 01-22-2025 Appearance (U) Clear Clear [facility] Bilirubin (U) [Mass/Vol] Negative NEGATIVE mg/dL [facility] Color (U) Colorless Abnormal Light-Yellow , Yellow, Dark-Yellow [facility] Glucose Auto test strip (U) [Mass/Vol] Normal Normal mg/dL [facility] Interpretation and review of laboratory results Abnormal [facility] Ketones (U) [Mass/Vol] Negative NEGAT CARMEN mg/dL [facility] Leukocyte esterase Auto test strip Ql (U) Negative NEGATIVE [facility] Nitrite Auto test strip Ql (U) Negative NEGATIVE [facility] pH (U) 8 [pH] 5.0, 5.5, 6.0, 6.5, 7.0, 7.5, 8.0 [facility] Protein (U) [Mass/Vol] Negative NEGAT CARMEN, 10 (TRACE), 20 (TRACE) mg/dL [facility] RBC (U) [#/Vol] Negative NEGATIVE mg/dL [facility] Specific gravity (U) [Rel density] 1.006 1.005 - 1.035 [facility] Urobilinogen (U) [Mass/Vol] Normal Normal mg/dL [facility] Appearance (U) Clear Normal Clear [facility] Comment on above: Performed By: #### 2 243-4 #### [facility] ([id number]) [facility] LAB ([facility]) [address] [place] [address] Bilirubin (U) [Mass/Vol] Negative Normal NEGATIVE [facility] Comment on above: Performed By: #### 2 243-4 #### [facility] E KAPADIA ([id number]) [facility] LAB ([facility]) [address] [place] [address] Color (U) Colorless Normal Light-Yellow , Yellow, Dark-Yellow [facility] Comment on above: Performed By: #### 2 243-4 #### MARIA E KAPADIA ([id number]) [facility] LAB ([facility]) [address] [place], [place] [address] Glucose Auto test strip (U) [Mass/Vol] Normal Normal Normal [facility] Comment on above: Performed By: #### 2 243-4 #### [facility] E KAPADIA ([id number]) [facility] LAB ([facility]) [address] [place] [address] Ketones (U) [Mass/Vol] Negative Normal NEGATIVE [facility] Comment on above: Performed By: #### 2 243-4 #### MARIA E KAPADIA ([id number]) [facility] LAB ([facility]) [address] [place] [id number] Leukocyte esterase Auto test strip Ql (U) Negative Normal NEGATIVE [facility] Comment on above: Performed By: #### 2 243-4 #### [facility] E KAPADIA ([id number]) [facility] LAB ([facility]) [address] [place] [address] Nitrite Auto test strip Ql (U) Negative Normal NEGATIVE [facility] Comment on above: Performed By: #### 2 243-4 #### [facility] KAP[facility]IA ([id number]) [facility] LAB ([facility]) [address] [place], [place] [address] pH (U) 8.0 [pH] Normal 5.0, 5.5, 6.0, 6.5, 7.0, 7.5, 8.0 [facility] Comment on above: Performed By: #### 2 243-4 #### [facility] E KAPADIA ([id number]) [facility] LAB ([facility]) [address] [place] [address] Protein (U) [Mass/Vol] Negative Normal NEGAT CARMEN, 10 (TRACE), 20 (TRACE) [facility] Comment on above: Performed By: #### 2 243-4 #### [facility] ([id number]) [facility] LAB ([facility]) [address] [place], [place] [address] RBC (U) [#/Vol] Negative Normal NEGATIVE [facility] Comment on above: Performed By: #### 2 243-4 #### [facility] KAP[facility]IA ([id number]) [facility] LAB ([facility]) [address] [place], [place] [address] Specific gravity (U) [Rel density] 1.006 Normal 1.005-1.035 [facility] Comment on above: Performed By: #### 2 243-4 #### [facility] E KAPADIA ([id number]) [facility] LAB ([facility]) [address] [place], [place] [address] Urobilinogen (U) [Mass/Vol] Normal Normal Normal [facility] Comment on above: Performed By: #### 2 243-4 #### [facility] ([id number]) [facility] LAB ([facility]) [address] [place], [place] [address] US OB TRANSVAGINALon US OB TRANSVAGINAL Interpreted by: Imelda Bell [...] evaluation for early dating. View: Sufficient Normal [facility] US OB TRANSVAGINALon 025 US OB TRANSVAGINAL [...] evaluation for early dating. View: Sufficient Normal [facility] Choriogonadotropin.beta subu niton 01-09-2025 HCG.beta subunit Qn 1756 m[IU]/mL High <5 [facility] Comment on above: Order Comment: REF V [...] #### 2 243-4 #### MARIA E KAPADIA ([id number]) [facility] LAB ([facility]) [address] [place] [address] Absolute lymphocyte countOrd ered By: Domo Weaver on 01-06-2025 Lymphocytes Auto (Unsp spec) [#/Vol] 2.66 10*3/uL 0.83-4.51 [facility] Absolute neutrophil countOrd ered By: Domoyamileth Weaver on 01-06-2025 Neutrophils (Bld) [#/Vol] 5.5 10*3/uL 2.0-7.7 [facility] Anion gap in Serum or Plasma Ordered By: Domo Weaver on 01-06-2025 Anion gap [Moles/Vol] 13 mmol/L 5- [facility] Automated lymphocyte count a s percentage of total leukocytesOrdered By: Domo Weaver on 01-06-2025 Lymphocytes/100 WBC Auto (Unsp spec) 30.2 % 19-41 [facility] BUN/creatinine ratioOrdered By: Domo Weaver on 01-06-2025 Urea nitrogen/Creatinine [Mass ratio] 15.8 mg/mg 10- [facility] Basophil percentageOrdered B y: Domo Weaver on 01-06-2025 Basophils/100 WBC (Bld) 0.7 % 0- [facility] Bilirubin, totalOrdered By: Domo Weaver on 01-06-2025 Bilirubin [Mass/Vol] 0.32 mg/dL 0.00-1.[address] [facility] CBC W/Diff, Automatedon 12-28 Absolute Lymph 2.66 X10 3/uL Normal 0.83-4.51 [facility] Comment on above: Performed By: #### L 100.0100, L500.4050, L501.6710, L101.9900 ####[facility] [address] [place], [address] Absolute Neut 5.5 X10 3/uL Normal 2.0-7.7 [facility] Comment on above: Performed By: #### L 100.0100, L500.4050, L501.6710, L101.9900 ####[facility] [address] [place], [address] Basophils/100 WBC (Bld) 0.7 % Normal 0-1 [facility] Comment on above: Performed By: #### L 100.0100, L500.4050, L501.6710, L101.9900 ####[facility] [address] [place], [address] Eosinophils/100 WBC (Bld) 1.4 % Normal 0-5 [facility] Comment on above: Performed By: #### L 100.0100, L500.4050, L501.6710, L101.9900 ####[facility] [address] [place], [address] Erythrocyte distribution width (RBC) [Ratio] 12.3 % Normal 11.6-14.6 [facility] Comment on above: Performed By: #### L 100.0100, L500.4050, L501.6710, L101.9900 ####[facility] [address] [place], [address] Hematocrit (Bld) [Volume fraction] 34.3 % Low 37-47 [facility] Comment on above: Performed By: #### L 100.0100, L500.4050, L501.6710, L101.9900 ####[facility] [address] [place], [address] Hemoglobin (Bld) [Mass/Vol] 11.2 g/dL Low 12.0-15.0 [facility] Comment on above: Performed By: #### L 100.0100, L500.4050, L501.6710, L101.9900 ####[facility] [address] [place], [address] IG% 0.300 Normal 0.0-0.9 [facility] Comment on above: Result Comment: IG% - Immature Granulocytes (promyelocytes, myelocytes and metamyelocytes) > 1% indicates that a LEFT SHIFT is Present. Performed By: #### L 100.0100, L500.4050, L501.6710, L101.9900 ####[facility] [address] [place], [address] Lymphocytes/100 WBC (Bld) 30.2 % Normal 19-41 [facility] Comment on above: Performed By: #### L 100.0100, L500.4050, L501.6710, L101.9900 ####[facility] [address] [place], [address] MCH (RBC) [Entitic mass] 29.6 pg Normal 27.0-32.0 [facility] Comment on above: Performed By: #### L 100.0100, L500.4050, L501.6710, L101.9900 ####[facility] [address] [place], [address] MCHC (RBC) [Mass/Vol] 32.7 g/dL Normal 32-36 [facility] Comment on above: Performed By: #### L 100.0100, L500.4050, L501.6710, L101.9900 ####[facility] [address] [place], [address] MCV (RBC) [Entitic vol] 90.7 fL Normal 81-99 [facility] Comment on above: Performed By: #### L 100.0100, L500.4050, L501.6710, L101.9900 ####[facility] [address] [place], [address] Monocytes/100 WBC (Bld) 4.7 % Normal 0-10 [facility] Comment on above: Performed By: #### L 100.0100, L500.4050, L501.6710, L101.9900 ####[facility] [address] [place], [address] Neutrophils/100 WBC (Bld) 62.7 % Normal 47-70 [facility] Comment on above: Performed By: #### L 100.0100, L500.4050, L501.6710, L101.9900 ####[facility] [address] [place], [address] Nucleated RBC (Bld) [#/Vol] 0 10*3/uL Normal 0-5 [facility] Comment on above: Performed By: #### L 100.0100, L500.4050, L501.6710, L101.9900 ####[facility] [address] [place], [address] Platelet mean volume (Bld) [Entitic vol] 10.0 fL Normal 6.2-12.0 [facility] Comment on above: Performed By: #### L 100.0100, L500.4050, L501.6710, L101.9900 ####[facility] [address] [place], [address] Platelets (Bld) [#/Vol] 358 10*3/uL Normal 150-450 [facility] Comment on above: Performed By: #### L 100.0100, L500.4050, L501.6710, L101.9900 ####[facility] [address] [place], [address] RBC (Bld) [#/Vol] 3.78 10*6/uL Low 4.2-5.4 [facility] Comment on above: Performed By: #### L 100.0100, L500.4050, L501.6710, L101.9900 ####[facility] [address] [place], [address] RDW SD 40.6 fl Normal 35.1-43.9 [facility] Comment on above: Performed By: #### L 100.0100, L500.4050, L501.6710, L101.9900 ####[facility] [address] [place], [address] WBC (Bld) [#/Vol] 8.8 10*3/uL Normal 4.4-11.0 [facility] Comment on above: Performed By: #### L 100.0100, L500.4050, L501.6710, L101.9900 ####[facility] [address] [place], [address] CRPon 01-06-2025 C-REACTIVE PROT 5.97 mg/L High 0.0-3.0 [facility] Comment on above: Performed By: #### L 100.0100, L500.4050, L501.6710, L101.9900 ####[facility] [address] [place], [address] Carbon dioxide, total [Moles /volume] in Central venous bloodOrdered By: Domo Weaver on 01-06-2025 CO2 [Moles/Vol] 21.3 mmol/L 21.0-32.0 [facility] Chloride assayOrdered By: Ra clarita Weaver on 01-06-2025 Chloride [Moles/Vol] 104 mmol/L 98-[address] [facility] Comprehensive Metabolic Prof ilon 01-06-2025 Albumin [Mass/Vol] 4.2 g/dL Normal 3.5-5.0 [facility] Comment on above: Performed By: #### L 100.0100, L500.4050, L501.6710, L101.9900 ####[facility] [address] [place], [address] Albumin/Globulin [Mass ratio] 1.4 {ratio} Normal 0.9-2.4 [facility] Comment on above: Performed By: #### L 100.0100, L500.4050, L501.6710, L101.9900 ####[facility] [address] [place], [address] ALK PHOS 57 U/L Normal 35-104 [facility] Comment on above: Performed By: #### L 100.0100, L500.4050, L501.6710, L101.9900 ####[facility] [address] [place], [address] ALT [Catalytic activity/Vol] 15 U/L Normal <=34 [facility] Comment on above: Performed By: #### L 100.0100, L500.4050, L501.6710, L101.9900 ####[facility] [address] [place], [address] AST [Catalytic activity/Vol] 18 U/L Normal <=31 [facility] Comment on above: Performed By: #### L 100.0100, L500.4050, L501.6710, L101.9900 ####[facility] [address] [place], [address] Bilirubin [Mass/Vol] 0.32 mg/dL Normal 0.00-1.[address] [facility] Comment on above: Performed By: #### L 100.0100, L500.4050, L501.6710, L101.9900 ####[facility] [address] [place], [address] BUN/CRE 15.8 RATIO Normal 10-20 [facility] Comment on above: Performed By: #### L 100.0100, L500.4050, L501.6710, L101.9900 ####[facility] [address] [place], [address] Calcium [Mass/Vol] 9.2 mg/dL Normal 7.6-11.0 [facility] Comment on above: Performed By: #### L 100.0100, L500.4050, L501.6710, L101.9900 ####[facility] [address] [place], [address] Chloride [Moles/Vol] 104 mmol/L Normal 98-[address] [facility] Comment on above: Performed By: #### L 100.0100, L500.4050, L501.6710, L101.9900 ####[facility] [address] [place], [address] CO2 [Moles/Vol] 21.3 mmol/L Normal 21.0-32.0 [facility] Comment on above: Performed By: #### L 100.0100, L500.4050, L501.6710, L101.9900 ####[facility] [address] [place], [address] Creatinine [Mass/Vol] 0.69 mg/dL Low 0.70-1.20 [facility] Comment on above: Performed By: #### L 100.0100, L500.4050, L501.6710, L101.9900 ####[facility] [address] [place], [address] GAP 13 Normal 5-15 [facility] Comment on above: Performed By: #### L 100.0100, L500.4050, L501.6710, L101.9900 ####[facility] [address] [place], [address] GFR/1.73 sq M.predicted among non-blacks MDRD (S/P/Bld) [Vol rate/Area] 120 mL/min/{1.73_m2} Normal >60 [facility] Comment on above: Result Comment: mL/m in/1.73m2 CKD-EPI Creatinine Equation (2020) Performed By: #### L 100.0100, L500.4050, L501.6710, L101.9900 ####[facility] [address] [place], [address] Globulin (S) [Mass/Vol] 3.0 g/dL Normal 2.2-4.2 [facility] Comment on above: Performed By: #### L 100.0100, L500.4050, L501.6710, L101.9900 ####[facility] [address] [place], [address] Glucose [Mass/Vol] 121 mg/dL High 70-99 [facility] Comment on above: Performed By: #### L 100.0100, L500.4050, L501.6710, L101.9900 ####[facility] [address] [place], [address] Potassium [Moles/Vol] 3.7 mmol/L Normal 3.3-5.1 [facility] Comment on above: Performed By: #### L 100.0100, L500.4050, L501.6710, L101.9900 ####[facility] [address] [place], [address] Sodium [Moles/Vol] 138 mmol/L Normal 133-145 [facility] Comment on above: Performed By: #### L 100.0100, L500.4050, L501.6710, L101.9900 ####[facility] [address] [place], [address] T PROT 7.2 g/dL Normal 5.9-8.4 [facility] Comment on above: Performed By: #### L 100.0100, L500.4050, L501.6710, L101.9900 ####[facility] [address] [place], [place], [phone] Urea nitrogen [Mass/Vol] 11 mg/dL Normal 4-19 [facility] Comment on above: Performed By: #### L 100.0100, L500.4050, L501.6710, L101.9900 ####[facility] [address] [place], [place], [phone] Eosinophil percentageOrdered By: Domo Weaver on 01-06-2025 Eosinophils/100 WBC (Bld) 1.4 % 0-5 [facility] Erythrocyte Sed Rateon 01-06 SED RATE 8 mm/hr Normal 0-30 [facility] Comment on above: Performed By: #### L 100.0100, L500.4050, L501.6710, L101.9900 ####[facility] [address] [place], [place], [id number] Erythrocyte distribution wid th ratioOrdered By: Domo Weaver on 01-06-2025 Erythrocyte distribution width (RBC) [Ratio] 12.3 % 11.6-14.6 [facility] Erythrocyte distribution wid th standard deviationOrdered By: Domo Weaver on 01-06-2025 Erythrocyte distribution width (RBC) [Ratio] 40.6 fl 35.1-43.9 [facility] Erythrocyte sedimentation ra teOrdered By: Domo Weaver on 01-06-2025 ESR (Bld) [Velocity] 8 mm/h 0-[address] [facility] Glomerular filtration rate ( GFR) estimation/1.73 sq m using serum, plasma, or whole bOrdered By: Domo Weaver on 01-06-2025 GFR/1.73 sq M.predicted among non-blacks MDRD (S/P/Bld) [Vol rate/Area] 120 mL/min/{1.73_m2} >60 [facility] Comment on above: mL/min/1.73m2 CKD-EP I Creatinine Equation (2020) Hematocrit Auto (Bld) [Volum e fraction]Ordered By: Domo Weaver on 01-06-2025 Hematocrit (Bld) [Volume fraction] 34.3 % Low 37-47 [facility] Hemoglobin measurementOrdere d By: Domo Weaver on 01-06-2025 Hemoglobin (Bld) [Mass/Vol] 11.2 g/dL Low 12.0-15.0 [facility] Immature granulocytes/100 WB C Auto (Bld)Ordered By: Domo Weaver on 01-06-2025 Immature granulocytes/100 WBC (Bld) 0.300 % 0.0-0.9 [facility] Comment on above: IG% - Immature Granu locytes (promyelocytes, myelocytes and metamyelocytes) > 1% indicates that a LEFT SHIFT is Present. Laboratory - Chemistry and C hemistry - challengeOrdered By: Domo Weaver on 01-06-2025 AST [Catalytic activity/Vol] 18 U/L <32 [facility] MCV (mean corpuscular volume ) determinationOrdered By: Domo Weaver on 01-06-2025 MCV (RBC) [Entitic vol] 90.7 fL 81-99 [facility] Mean corpuscular hemoglobin (MCH) determinationOrdered By: Domo Weaver on 01-06-2025 MCH (RBC) [Entitic mass] 29.6 pg 27.0-32.0 [facility] Mean corpuscular hemoglobin concentration (MCHC) determinationOrdered By: Domo Weaver on 01-06-2025 MCHC (RBC) [Mass/Vol] 32.7 g/dL 32-36 [facility] Mean platelet volume determi nationOrdered By: Domo Weaver on 01-06-2025 Platelet mean volume (Bld) [Entitic vol] 10.0 fL 6.2-12.0 [facility] Monocyte percentageOrdered B y: Domo Weaver on 01-06-2025 Monocytes/100 WBC (Bld) 4.7 % 0-10 [facility] Neutrophil percentageOrdered By: Domo Weaver on 01-06-2025 Neutrophils/100 WBC (Bld) 62.7 % 47-70 [facility] Nucleated red blood cell per centageOrdered By: Domo Weaver on 01-06-2025 Nucleated RBC/100 WBC (Bld) [Ratio] 0 % 0-5 [facility] Platelet countOrdered By: Ra clarita Weaver on 01-06-2025 Platelets (Bld) [#/Vol] 358 10*3/uL 150-450 [facility] Potassium measurement (mass/ volume)Ordered By: Domo Weaver on 01-06-2025 Potassium (Unsp spec) [Mass/Vol] 3.7 mmol/L 3.3-5.1 [facility] RBC Auto (Bld) [#/Vol]Ordere d By: Domo Weaver on 01-06-2025 RBC (Bld) [#/Vol] 3.78 10*6/uL Low 4.2-5.4 [facility] Serum creatinine measurement (mass/volume)Ordered By: Domo Weaver on 01-06-2025 Creatinine [Mass/Vol] 0.69 mg/dL Low 0.70-1.20 [facility] Serum globulin measurementOr dered By: Domo Weaver on 01-06-2025 Globulin (S) [Mass/Vol] 3.0 g/dL 2.2-4.2 [facility] Serum glucose measurement (m ass/volume)Ordered By: Domo Weaver on 01-06-2025 Glucose [Mass/Vol] 121 mg/dL High 70-99 [facility] Serum or plasma C reactive p rotein measurement (mass/volume)Ordered By: Domo Weaver on 01-06-2025 CRP [Mass/Vol] 5.97 mg/L High 0.0-3.0 [facility] Serum or plasma alanine parisi otransferase (ALT) measurementOrdered By: Domo Weaver on 01-06-2025 ALT [Catalytic activity/Vol] 15 U/L <35 [facility] Serum or plasma albumin arielle urement (mass/volume)Ordered By: Domo Weaver on 01-06-2025 Albumin [Mass/Vol] 4.2 g/dL 3.5-5.0 [facility] Serum or plasma albumin/glob ulin mass ratioOrdered By: Domo Weaver on 01-06-2025 Albumin/Globulin [Mass ratio] 1.4 {ratio} 0.9-2.4 [facility] Serum or plasma alkaline marcelo sphatase measurementOrdered By: Domo Weaver on 01-06-2025 ALP [Catalytic activity/Vol] 57 U/L 35-104 [facility] Serum or plasma calcium arielle urement (mass/volume)Ordered By: Domo Weaver on 01-06-2025 Calcium [Mass/Vol] 9.2 mg/dL 7.6-11.0 [facility] Serum or plasma urea nitroge n measurement (mass/volume)Ordered By: Domo Weaver on 01-06-2025 Urea nitrogen [Mass/Vol] 11 mg/dL 4-19 [facility] Sodium levelOrdered By: Alisa Michelle on 01-06-2025 Sodium [Moles/Vol] 138 mmol/L 133-145 [facility] Total proteinOrdered By: Lai Weaver on 01-06-2025 Protein [Mass/Vol] 7.2 g/dL 5.9-8.4 [facility] White blood cell (WBC) count Ordered By: Domo Weaver on 01-06-2025 WBC (Bld) [#/Vol] 8.8 10*3/uL 4.4-11.0 [facility] Choriogonadotropin.beta subu niton 01-05-2025 HCG.beta subunit Qn 422 m[IU]/mL High <5 [facility] Comment on above: Order Comment: [...] #### 2 243-4 #### [id number] ([facility]) [address] [place] [address] Gastroenterology Visit Repor ton 01-01-2025 Gastroenterology Visit Report [facility] [address] [place] [address] OFFICE VISIT Date of Service: 01/01/25 MR#: [id number] Acct: [id number] Name: MARIXA AMOS Rep #: [id number] : 1995 Provider: Domo Weaver DO Age/Sex: 29/F Location: [facility] Status: Signed Intake Vital Signs 12/09/23 13:23 [...] 01/01/25 History mcg (2,500 unit) capsule omega 8-fpn-iwu-fish oil 300 1 cap PO QDAY 07/12/24 [...] 07/12/24 @ 10:30 by Jesika Farrar NP, [employer]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 OV 01.06.24 pt reports that she is feeling well overall. She reports increased fatigue since starting budesonide a few weeks ago. Reports 2 formed bowel movements per day and denies blood in the stool. Pt continues with current medication regimen. OV 5.5.25 pt reports that she is feeling well, continues IV treatments, reports that she is 4 weeks . Pt reports some constipation and HB, but states she thinks this is due to the medications she is taking for her IVF. Pt continues with Stelara Q8W. ? ESR/CRP Calp/Lact? TB? serum/ab 07.28. 22/<2.9 --/--? --? 23.7/neg? CBC (anemic), CMP, LDH, IBD .24.22 --/--? 61/? +? --/--? Titers 03.05.22 13/<2.9 --/--? --? --/--? apANCA H1:160, CMV IgG+ CBC (anemic), CMP, LDH, CHARLES comp, celiac, SABRINA, GAME? (more content not included)... Normal [facility] No Panel Informationon 12-26 Gavino Tristan [...] Preop diagnosis: Infertility Post op diagnosis: Same [employer] Consultant: Dr. Holder Depth: 7 cm Curve: anterior [...] Tristan 12/26/24 11:35 AM [facility] Work Phone: Progesteroneon 12-26-2024 Progesterone [Mass/Vol] 34.6 ng/mL Normal [facility] Comment on above: Order Comment: REF V ALUES FOLLICULAR PHASE 20-144 MID CYCLE 64-357 LUTEAL PHASE 56-214 POSTMENOPAUSE < 32 PREPUBERTY < 20 FEMALE 10-18Y 8-110 MALE 10-18Y < 20 ADULT MALE < 40 Performed By: #### 2 243-4 #### [id number] ([facility]) [address] [place] [address] LIPID PANEL, STANDARD 11-29 Cholesterol [Mass/Vol] 228 mg/dL High <200 [facility] Comment on above: Order Comment: FASTI NG:YES FASTING: YES Performed By: #### 1 2137, 2988 #### [facility] [address], [address] [place], [place] [id number] Research Associate Molecular Biology: Cody Spencer MD Cholesterol in HDL [Mass/Vol] 68 mg/dL Normal > OR = 50 [facility] Comment on above: Order Comment: FASTI NG:YES FASTING: YES Performed By: #### 1 4840, 8061 #### [facility] [address], [address] [place] [address] Research Associate Molecular Biology: Cody Spencer MD Cholesterol in LDL [Mass/Vol] [...] Luis Miguel GALLARDO et al. DESIRE. 2013;310(19): 6262-5600 (http://education.Tuition.io.Techtium/faq/QHI831) Performed By: #### 1 5637, 8400 #### [facility] [address], [address] [place] [address] Research Associate Molecular Biology: Cody Spencer MD Cholesterol.total/Chol esterol in HDL [Mass ratio] 3.4 {ratio} Normal <5.0 [facility] Comment on above: Order Comment: FASTI NG:YES FASTING: YES Performed By: #### 1 7591, 5930 #### [facility] [place] [address] Research Associate Molecular Biology: Cody Spencer MD NON HDL CHOLESTEROL 160 mg/dL (calc) High <130 [facility] Comment on above: Order Comment: FASTI NG:YES FASTING: YES Result Comment: For patients with diabetes plus 1 major ASCVD risk factor, treating to a non-HDL-C goal of <100 mg/dL (LDL-C of <70 mg/dL) is considered a therapeutic option. Performed By: #### 1 9691, 2670 #### [facility] [place] [address] Research Associate Molecular Biology: Cody Spencer MD Triglyceride [Mass/Vol] 190 mg/dL High <150 [facility] Comment on above: Order Comment: FASTI NG:YES FASTING: YES Performed By: #### 1 5119, 5490 #### [facility] [place] [address] Research Associate Molecular Biology: Cody Spencer MD VITAMIN D,25-OH,TOTAL,IAon 0 12-21-2024 VITAMIN D,25-OH,TOTAL,IA 35 ng/mL Normal 30-100 [facility] Comment on above: Result Comment: Kiarra min D Status 25-OH Vitamin D: Deficiency: <20 ng/mL Insufficiency: 20 - 29 ng/mL Optimal: > or = 30 ng/mL For 25-OH Vitamin D testing on patients on D2-supplementation and patients for whom quantitation of D2 and D3 fractions is required, the QuestAssureD(TM) 25-OH VIT D, (D2,D3), LC/MS/MS is recommended: order code 21203 (patients >2yrs). See Note 1 Note 1 For additional information, please refer to http://education.Tuition.io.Techtium/faq/EQB222 (This link is being provided for informational/ educational purposes only.) Performed By: #### 1 2601, 0499 #### [facility] [address] [facility], [address] [place] [phone] Research Associate Molecular Biology: Cody Spencer MD Destr of lesionon 12-20-2024 Complexity: simple Destruction method: cryotherapy Informed consent: discussed and consent obtained Debridement: hyperkeratotic portion removed with sharp debridement Lesion destroyed using liquid nitrogen: Yes Cryotherapy cycles: 3 Outcome: patient tolerated procedure well with no complications Post-procedure details: wound care instructions given [facility] Work Phone: [facility] Work Phone: Progesteroneon 12-20-2024 Progesterone [Mass/Vol] 0.2 ng/mL Normal [facility] Comment on above: Order Comment: REF V ALUES FOLLICULAR PHASE 20-144 MID CYCLE 64-357 LUTEAL PHASE 56-214 POSTMENOPAUSE < 32 PREPUBERTY < 20 FEMALE 10-18Y 8-110 MALE 10-18Y < 20 ADULT MALE < 40 Performed By: #### 2 243-4 #### [facility] ([id number] ([facility]) [address] [place] [address] Estradiolon 12-15-2024 E2 [Mass/Vol] 417 pg/mL Normal [facility] Comment on above: Order Comment: REF V ALUES FOLLICULAR PHASE 20-144 MID CYCLE 64-357 LUTEAL PHASE 56-214 POSTMENOPAUSE < 32 PREPUBERTY < 20 FEMALE 10-18Y 8-110 MALE 10-18Y < 20 ADULT MALE < 40 Performed By: #### 2 243-4 #### [facility] ([id number]) [facility] ([facility]) [address] [place] [address] Progesteroneon 12-15-2024 Progesterone [Mass/Vol] 0.6 ng/mL Normal [facility] Comment on above: Order Comment: REF V ALUES FOLLICULAR PHASE 20-144 MID CYCLE 64-357 LUTEAL PHASE 56-214 POSTMENOPAUSE < 32 PREPUBERTY < 20 FEMALE 10-18Y 8-110 MALE 10-18Y < 20 ADULT MALE < 40 Performed By: #### 2 243-4 #### [facility] ([id number]) [facility] ([facility]) [address] [place] [id number] [facility] US ENDOMETRIAL LINING CH ECKon 12-15-2024 TERRENCE US ENDOMETRIAL LINING CHECK Trilaminar appearance to the endometrium is noted. Normal [facility] ANTI-MULLERIAN HORMONE ([facility]) , FEMALEon 11-25-2024 ANTI-MULLERIAN HORMONE ([facility]), FEMALE 1.90 ng/mL Normal 0.69-13.39 [facility] Comment on above: Performed By: #### 1 1363, 44082, 01795, 8472, 21121, 498 #### [facility] [address] [place] [address], [address] [place] [phone] Research Associate Molecular Biology: Cody Spencer MD #### [id number] #### [facility]/[place] [id number] [facility] [address] Research Associate Molecular Biology: Jeremiah Holder M.D.,PhD #### [id number] #### [facility] [address] [place] [phone] Research Associate Molecular Biology: Bianka Brenner MD,PhD,HAMLET CHLAMYDIA/N. GONORRHOEAE RNA , TMA, UROGENITALon 11-25-2024 CHLAMYDIA TRACHOMATIS RNA, TMA, UROGENITAL Not detected Normal NOT DETECTED [facility] Comment on above: Performed By: #### 1 1363, 68537, 310[address], 8472, 20230, 498 #### [facility] [address] , [address] [place] [phone] Research Associate Molecular Biology: Cody Spencer MD #### [id number] #### [facility] [address] [facility] [address] [place] Research Associate Molecular Biology: Jeremiah Holder M.D.,PhD #### [id number] #### [facility] [place], [address] [place] [address] Research Associate Molecular Biology: Bianka Brenner MD,PhD,HAMLET COMMENT Normal [facility] Comment on above: Result Comment: The analytical performance characteristics of this assay, when used to test SurePath(TM) specimens have been determined by [employer]. The modifications have not been cleared or approved by the FDA. This assay has been validated pursuant to the CLIA regulations and is used for clinical purposes. For additional information, please refer to https://education.Altatech.Techtium/faq/WOD953 (This link is being provided for information/ educational purposes only.) Performed By: #### 1 1363, 35467, 93737, 8472, 19071, 498 #### [facility] [address], [address] [place] [phone] Research Associate Molecular Biology: Cody Spencer MD #### [id number] #### [facility] [address] [facility] [address] [place] Research Associate Molecular Biology: Jeremiah Holder M.D.,PhD #### [id number] #### [facility] [place], [address] [facility] [address] Research Associate Molecular Biology: Bianka Brenner MD,PhD,HAMLET NEISSERIA GONORRHOEAE RNA, TMA, UROGENITAL Not detected Normal NOT DETECTED [facility] Comment on above: Performed By: #### 1 1363, 98671, 96619, 8472, 38904, 498 #### [facility] [address], [address] [place] [address] Research Associate Molecular Biology: Cody Spencer MD #### 61202 #### [facility] [address] [facility] [place], [place] Research Associate Molecular Biology: Jeremiah Holder M.D.,PhD #### [id number] #### [facility], [address] [place] [address] Research Associate Molecular Biology: Bianka Brenner MD,PhD,HAMLET HEMOGLOBIN A1c WITH eAGon eAG (mmol/L) 6.0 mmol/L Normal [facility] Comment on above: Performed By: #### 1 1363, 03119, 99001, 8472, 00393, 498 #### [facility] [address], [address] [place] [address] Research Associate Molecular Biology: Cody Spencer MD #### [id number] #### [facility] [address] [place] [address] [place], [place] Research Associate Molecular Biology: Jeremiah Holder M.D.,PhD #### [id number] #### [facility], [address] [place], [place] Research Associate Molecular Biology: Bianka Brenner MD,PhD,HAMLET HEMOGLOBIN A1c 5.4 % [...] diagnosis of diabetes in children. According to [place] Diabetes Association (ADA) guidelines, hemoglobin A1c <7.0% represents optimal control in non- diabetic patients. Different metrics may apply to specific patient populations. Standards of Medical Care in Diabetes(ADA). Performed By: #### 1 1363, 70496, 93678, 8472, 34333, 498 #### [facility] [address] , [address] [place] [address] Research Associate Molecular Biology: Cody Spencer MD #### [id number] #### [facility]/[place] [address] [facility] [place], [place] Research Associate Molecular Biology: Jeremiah Holder M.D.,PhD #### [id number] #### [facility], [address] [place] Research Associate Molecular Biology: Bianka Brenner MD,PhD,HAMLET Magnesium [Mass/Vol] 108 mg/dL Normal [facility] Comment on above: Performed By: #### 1 1363, 55330, 62104, 8472, 44300, 498 #### [facility] [address], [address] [place] [address] Research Associate Molecular Biology: Cody Spencer MD #### [id number] #### [facility]/[address] [place], [place] Research Associate Molecular Biology: Jeremiah Holder M.D.,PhD #### [id number] #### [facility], [address] [place] Research Associate Molecular Biology: Bianka Brenner MD,PhD,HAMLET HEPATITIS B SURFACE ANTIGEN W/REFL CONFIRMon 11-25-2024 HEPATITIS B SURFACE ANTIGEN Non-Reactive Normal NON-REACTIVE [facility] Comment on above: Result Comment: For additional information, please refer to http://education.Altatech.Techtium/faq/BXP951 (This link is being provided for informational/ educational purposes only.) Performed By: #### 1 1363, 12788, 07803, 8472, 12060, 498 #### [facility] [address], [address] [place] [address] Research Associate Molecular Biology: Cody Spencer MD #### [id number] #### [facility] [place], [place] Research Associate Molecular Biology: Jeremiah Holder M.D.,PhD #### [id number] #### [facility], [address] [place], [place] Research Associate Molecular Biology: Bianka Brenner MD,PhD,HAMLET HEPATITIS C AB W/REFL TO HCV RNA, QN, PCRon 11-25-2024 HEPATITIS C ANTIBODY Non-Reactive Normal NON-REACTIVE [facility] Comment on above: Result Comment: HCV antibody was non-reactive. There is no laboratory evidence of HCV infection. In most cases, no further action is required. However, if recent HCV exposure is suspected, a test for HCV RNA (test code 13851) is suggested. For additional information please refer to http://education.72xuan/faq/QGI61b2 (This link is being provided for informational/ educational purposes only.) Performed By: #### 1 1363, 67230, 77938, 8472, 16270, 498 #### [facility] [address], [address] [place] [address] Research Associate Molecular Biology: Cody Spencer MD #### [id number] #### [facility] [place] Research Associate Molecular Biology: Jeremiah Holder M.D.,PhD #### [id number] #### [facility], [address] [place], [place] Research Associate Molecular Biology: Bianka Brenner MD,PhD,HAMLET HIV 1/2 ANTIGEN/ANTIBODY,FOU RTH [...] purpose. For additional information please refer to http://education.72xuan/faq/TOM129 (This link is being provided for informational/ educational purposes only.) The performance of this assay has not been clinically validated in patients less than 2 years old. Performed By: #### 1 1363, 43946, 41728, 8472, 48037, 498 #### [facility] [address], [address] [place], [place] [address] Research Associate Molecular Biology: Cody Spencer MD #### [id number] #### [facility] [address] [facility] [address] Research Associate Molecular Biology: Jeremiah Holder M.D.,PhD #### [id number] #### [facility] [address] [address] Research Associate Molecular Biology: Bianka Brenner MD,PhD,HAMLET SYPHILIS ANTIBODY [facility] 11-25-2024 T. PALLIDUM AB Negative Normal Negative [...] is high. Performed By: #### 1 1363, 38203, 28653, 8472, 34981, 498 #### [facility] [address], [address] [place] [address] Research Associate Molecular Biology: Cody Spencer MD #### [id number] #### [facility]/[place] [address] [facility] [place], [place] Research Associate Molecular Biology: Jeremiah Holder M.D.,PhD #### [id number] #### [facility], [address] [place], [place] Research Associate Molecular Biology: Bianka Brenner MD,PhD,HAMLET TSH W/REFLEX TO FT4on 2024 TSH W/REFLEX TO FT4 0.97 mIU/L Normal [facility] Comment on above: Result Comment: Refe rence Range > or = 20 Years 0.40-4.50 Ranges First trimester 0.26-2.66 Second trimester 0.55-2.73 Third trimester 0.43-2.91 Performed By: #### 1 1363, 50514, 27681, 8472, 82391, 498 #### [facility] [address], [address] [place] [id number] Research Associate Molecular Biology: Cody Spencer MD #### [id number] #### [facility]/[address] [place] [id number] [facility] [place], [place] Research Associate Molecular Biology: Jeremiah Holder M.D.,PhD #### [id number] #### [facility], [address] [place], [place] Research Associate Molecular Biology: Bianka Brenner MD,PhD,HAMLET No Panel Informationon 11-22 Henrietta Herndon MD 11/22/2024 10:18 AM Egg Retrieval Date/Time: 11/22/2024 10:15 AM Performed by: Henrietta Herndon MD Authorized by: [facility]itez [facility] Consent: Consent obtained: Verbal and written [...] diagnosis: Female infertility Post op diagnosis: Same [employer] Consultant: Leslie IV Fluids: 700 cc EBL: 5 cc UOP: Not recorded Specimen: Oocytes Complications: None Number of Oocytes right ovary: 14 Ovarian acc ss (right): Easy Number of Oocytes left ovary: 9 Ovarian access (left): Easy Endometrial thickness: TL Needle type: Single Additional notes: I was present and supervised the entire procedure. Henrietta Herndon 11/22/24 10:16 AM [facility] RIS [facility] Work Phone: Blood type and Indirect anti body screen panel (Bld)on 11-21-2024 ABO group Nom (Bld) B [facility] Comment on above: Performed By: #### 3 4532-2 ####MARIA E KAPADIA ([id number])[facility] ([facility])[address] [place] [address] Blood group antibody screen Ql Negative [facility] Comment on above: Performed By: #### 3 4532-2 ####MARIA E KAPADIA ([id number])[facility] [place] [address] D Ag Ql (Bld) Positive [facility] Comment on above: Performed By: #### 3 4532-2 ####MARIA E KAPADIA ([id number])[facility] ([facility])[address] [place] [address] Lutropinon 11-21-2024 Lutropin Qn 29.1 IU/L [facility] Comment on above: Result Comment: LH R eference Values Follicular Phase 1.5-10.0 Mid-Cycle 13.0-72.0 Luteal Phase 0.5-13.0 Menopause 15.0-65.0 Pre-puberty 0- 3.0 Children 0- 6.0 Adult Male 1.0- 9.0 Luteinizing Hormone is performed using the [employer]лен[employer] [place] Access Immunoassay. LH testing is performed using a different test methodology at [facility] than other [facility]. Direct result comparison should only be made within the same method. Performed By: #### 2 243-4 #### MARIA E KAPADIA ([id number]) [facility] ([facility]) [address] [id number] Progesteroneon 11-21-2024 Progesterone [Mass/Vol] 5.4 ng/mL Normal [facility] Comment on above: Order Comment: REF V ALUES FOLLICULAR PHASE 20-144 MID CYCLE 64-357 LUTEAL PHASE 56-214 POSTMENOPAUSE < 32 PREPUBERTY < 20 FEMALE 10-18Y 8-110 MALE 10-18Y < 20 ADULT MALE < 40 Performed By: #### 2 243-4 #### MARIA E KAPADIA ([id number]) [facility] ([facility]) [address] [place], [place] [id number] Estradiolon 11-20-2024 E2 [Mass/Vol] 5336 pg/mL Normal [facility] Comment on above: Order Comment: REF V ALUES FOLLICULAR PHASE 20-144 MID CYCLE 64-357 LUTEAL PHASE 56-214 POSTMENOPAUSE < 32 PREPUBERTY < 20 FEMALE 10-18Y 8-110 MALE 10-18Y < 20 ADULT MALE < 40 Performed By: #### 2 243-4 #### MARIA E KAPADIA ([id number]) [facility] ([facility]) [address] [id number] Follicle Diameter USon 11-20 Follicle scan perfor [facility] with follicle measurements in report. Trilaminar appearance to the endometrium is noted. Free fluid is noted in the cul de sac. RIS SECTRA ONLY [facility] Work Phone: Radiology Study observation (narrative) [facility] Work Phone: Progesteroneon 11-20-2024 Progesterone [Mass/Vol] 1.8 ng/mL Normal [facility] Comment on above: Order Comment: REF V ALUES FOLLICULAR PHASE 20-144 MID CYCLE 64-357 LUTEAL PHASE 56-214 POSTMENOPAUSE < 32 PREPUBERTY < 20 FEMALE 10-18Y 8-110 MALE 10-18Y < 20 ADULT MALE < 40 Performed By: #### 2 243-4 #### MARIA E KAPADIA ([id number]) [facility] ([facility]) [address] [place] [address] TERRENCE US PELVIS LIMITED FOLLIC LES-FOLLICLE STUDIES PERFORMEDon 11-20-2024 TERRENCE US PELVIS LIMITED FOLLICLES-FOLLICLE STUDIES PERFORMED Follicle scan performed with follicle measurements in report. Trilaminar appearance to the endometrium is noted. Free fluid is noted in the cul de sac. Normal [facility] Estradiolon 11-18-2024 E2 [Mass/Vol] 2969 pg/mL [facility] Comment on above: Order Comment: REF V ALUES FOLLICULAR PHASE 20-144 MID CYCLE 64-357 LUTEAL PHASE 56-214 POSTMENOPAUSE < 32 PREPUBERTY < 20 FEMALE 10-18Y 8-110 MALE 10-18Y < 20 ADULT MALE < 40 Performed By: #### 2 243-4 #### MARIA E KAPADIA ([id number]) [facility] ([facility]) [address] [place] [address] Follicle Diameter USon 11-18 Follicle scan perfor med with follicle measurements in report. RIS SECTRA ONLY [facility] Work Phone: Radiology Study observation (narrative) [facility] Work Phone: Progesteroneon 11-18-2024 Progesterone [Mass/Vol] 0.9 ng/mL Normal [facility] Comment on above: Order Comment: REF V ALUES FOLLICULAR PHASE 20-144 MID CYCLE 64-357 LUTEAL PHASE 56-214 POSTMENOPAUSE < 32 PREPUBERTY < 20 FEMALE 10-18Y 8-110 MALE 10-18Y < 20 ADULT MALE < 40 Performed By: #### 2 243-4 #### MARIA E KAPADIA ([id number]) [facility] ([facility]) [address] [place] [address] TERRENCE US PELVIS LIMITED FOLLIC LES-FOLLICLE STUDIES PERFORMEDon 11-18-2024 TERRENCE US PELVIS LIMITED FOLLICLES-FOLLICLE STUDIES PERFORMED Follicle scan performed with follicle measurements in report. Normal [facility] Estradiolon 11-16-2024 E2 [Mass/Vol] 1058 pg/mL Normal [facility] Comment on above: Order Comment: REF V ALUES FOLLICULAR PHASE 20-144 MID CYCLE 64-357 LUTEAL PHASE 56-214 POSTMENOPAUSE < 32 PREPUBERTY < 20 FEMALE 10-18Y 8-110 MALE 10-18Y < 20 ADULT MALE < 40 Performed By: #### 2 243-4 #### MARIA E KAPADIA ([id number]) [facility] ([facility]) [address] [id number] Follicle Diameter USon 11-16 Follicle scan perfor med with follicle measurements in report. Trilaminar appearance to the endometrium is noted. RIS SECTRA ONLY [facility] Work Phone: Radiology Study observation (narrative) [facility] Work Phone: TERRENCE US PELVIS LIMITED FOLLIC LES-FOLLICLE STUDIES PERFORMEDon 11-16-2024 TERRENCE US PELVIS LIMITED FOLLICLES-FOLLICLE STUDIES PERFORMED Follicle scan performed with follicle measurements in report. Trilaminar appearance to the endometrium is noted. Normal [facility] Estradiolon 11-14-2024 E2 [Mass/Vol] 488 pg/mL Normal [facility] Comment on above: Order Comment: REF V ALUES FOLLICULAR PHASE 20-144 MID CYCLE 64-357 LUTEAL PHASE 56-214 POSTMENOPAUSE < 32 PREPUBERTY < 20 FEMALE 10-18Y 8-110 MALE 10-18Y < 20 ADULT MALE < 40 Performed By: #### 2 243-4 #### MARIA E KAPADIA ([id number]) [facility] ([facility]) [address] [id number] Follicle Diameter USon 11-14 Follicle scan perfor med with follicle measurements in report. Trilaminar appearance to the endometrium is not noted. Free fluid is noted in the cul de sac. RIS SECTRA ONLY [facility] Work Phone: Radiology Study observation (narrative) [facility] Work Phone: TERRENCE US PELVIS LIMITED FOLLIC LES-FOLLICLE STUDIES PERFORMEDon 11-14-2024 TERRENCE US PELVIS LIMITED FOLLICLES-FOLLICLE STUDIES PERFORMED Follicle scan performed with follicle measurements in report. Trilaminar appearance to the endometrium is not noted. Free fluid is noted in the cul de sac. Normal [facility] CBC panel Auto (Bld)on 11-08 Erythrocyte distribution width (RBC) [Ratio] 12.0 % Normal 11.5-14.5 [facility] Comment on above: Performed By: #### 2 243-4 #### MARIA E KAPADIA ([id number]) [facility] ([facility]) [address] [place] [address] Hematocrit (Bld) [Volume fraction] 35.3 % Low 36.0-46.0 [facility] Comment on above: Performed By: #### 2 243-4 #### MARIA E KAPADIA ([id number]) [facility] ([facility]) [address] [place] [address] Hemoglobin (Bld) [Mass/Vol] 11.4 g/dL Low 12.0-16.0 [facility] Comment on above: Performed By: #### 2 243-4 #### MARIA E KAPADIA ([id number]) [facility] ([facility]) [address] [place] [address] MCH (RBC) [Entitic mass] 29.3 pg Normal 26.0-34.0 [facility] Comment on above: Performed By: #### 2 243-4 #### MARIA E KAPADIA ([id number]) [facility] ([facility]) [address] [place] [address] MCHC (RBC) [Mass/Vol] 32.3 g/dL Normal 32.0-36.0 [facility] Comment on above: Performed By: #### 2 243-4 #### MARIA E KAPADIA ([id number]) [facility] ([facility]) [address] [place] [address] MCV (RBC) [Entitic vol] 91 fL Normal 80-100 [facility] Comment on above: Performed By: #### 2 243-4 #### MARIA E KAPADIA ([id number]) [facility] ([facility]) [address] [place] [address] Nucleated RBC/100 WBC (Bld) [Ratio] 0.0 /100 WBCs Normal 0.0-0.0 [facility] Comment on above: Performed By: #### 2 243-4 #### MARIA E KAPADIA ([id number]) [facility] ([facility]) [address] [place] [address] Platelets (Bld) [#/Vol] 326 x10*3/uL Normal 150-450 [facility] Comment on above: Performed By: #### 2 243-4 #### MARIA E KAPADIA ([id number]) [facility] ([facility]) [address] [place] [address] RBC (Bld) [#/Vol] 3.89 x10*6/uL Low 4.00-5.20 [facility] Comment on above: Performed By: #### 2 243-4 #### MARIAE KAPADIA ([id number]) [facility] ([facility]) [address] [place] [address] WBC (Bld) [#/Vol] 5.2 x10*3/uL Normal 4.4-11.3 [facility] Comment on above: Performed By: #### 2 243-4 #### MARIA E KAPADIA ([id number]) [facility] ([facility]) [address] [place] [address] Estradiolon 11-08-2024 E2 [Mass/Vol] 43 pg/mL Normal [facility] Comment on above: Order Comment: REF V ALUES FOLLICULAR PHASE 20-144 MID CYCLE 64-357 LUTEAL PHASE 56-214 POSTMENOPAUSE < 32 PREPUBERTY < 20 FEMALE 10-18Y 8-110 MALE 10-18Y < 20 ADULT MALE < 40 Performed By: #### 2 243-4 #### MARIA E KAPADIA ([id number]) [facility] ([facility]) [address] [place] [address] Follicle Diameter USon 11-08 Follicle scan perfor med with follicle measurements in report., Trilaminar appearance to the endometrium is noted., and Free fluid is noted in the cul de sac. RIS SECTRA ONLY Radiology Study observation (narrative) [facility] Work Phone: Follicle Diameter USOrdered By: Henrietta Herndon on 11-08-2024 [facility] Work Phone: TERRENCE US PELVIS LIMITED FOLLIC LES-FOLLICLE STUDIES PERFORMEDon 11-08-2024 TERRENCE US PELVIS LIMITED FOLLICLES-FOLLICLE STUDIES PERFORMED Follicle scan performed with follicle measurements in report., Trilaminar appearance to the endometrium is noted., and Free fluid is noted in the cul de sac. [facility] No Panel Informationon 10-11 Henrietta Herndon MD 10/11/2024 9:48 AM Egg Retrieval Date/Time: 10/11/2024 9:41 AM Performed by: Henrietta Herndon MD Authorized by: Katelyn Benitez APRN-[facility] Consent: Consent obtained: Verbal and written [...] diagnosis: Female infertility Post op diagnosis: Same [employer] Consultant: Leslie IV Fluids: 300 cc EBL: 5 cc UOP: Not recorded Specimen: Oocytes Complications: None Number of Oocytes right ovary: 16 Ovarian access (right): Easy Number of Oocytes left ovary: 9 Ovarian access (left): Easy Endometrial thickness: Tl Needle type: Single Additional notes: I was present and supervised the entire procedure. Henrietta Herndon 10/11/24 9:42 AM [facility] LAB RIS [facility] Work Phone: Lutropinon 10-10-2024 Lutropin Qn 42.5 IU/L [facility] Comment on above: Result Comment: LH R eference Values Follicular Phase 1.5-10.0 Mid-Cycle 13.0-72.0 Luteal Phase 0.5-13.0 Menopause 15.0-65.0 Pre-puberty 0- 3.0 Children 0- 6.0 Adult Male 1.0- 9.0 Luteinizing Hormone is performed using the [employer] [place] Access Immunoassay. LH testing is performed using a different test methodology at [facility] than other [facility]. Direct result comparison should only be made within the same method. Performed By: #### 2 243-4 #### MARIA E KAPADIA ([id number]) [facility] ([facility]) [address] [place] [address] Progesteroneon 10-10-2024 Progesterone [Mass/Vol] 5.0 ng/mL [facility] Comment on above: Order Comment: REF V ALUES FOLLICULAR PHASE 20-144 MID CYCLE 64-357 LUTEAL PHASE 56-214 POSTMENOPAUSE < 32 PREPUBERTY < 20 FEMALE 10-18Y 8-110 MALE 10-18Y < 20 ADULT MALE < 40 Performed By: #### 2 243-4 #### MARIA E KAPADIA ([id number]) [facility] ([facility]) [address] [place] [address] Estradiolon 10-09-2024 E2 [Mass/Vol] 7372 pg/mL [facility] Comment on above: Order Comment: REF V ALUES FOLLICULAR PHASE 20-144 MID CYCLE 64-357 LUTEAL PHASE 56-214 POSTMENOPAUSE < 32 PREPUBERTY < 20 FEMALE 10-18Y 8-110 MALE 10-18Y < 20 ADULT MALE < 40 Estradiol measurement is performed using the [employer]лен[employer] Access Estradiol Immunoassay. Estradiol testing is performed using a different test methodology at [facility] than other [facility]. Direct result comparison should only be made within the same method. Performed By: #### 2 243-4 #### MARIA E KAPADIA ([id number]) [facility] ([facility]) [address] [place] [address] Progesteroneon 10-09-2024 Progesterone [Mass/Vol] 1.3 ng/mL Normal [facility] Comment on above: Order Comment: REF V ALUES Male <0.2-0.8 Follicular Phase <0.2-1.5 Luteal Phase 7.4-15.4 Post Menopausal <0.2-0.2 1ST Trimester 12.0-84.0 2ND Trimester 10.2-58.8 3RD Trimester 46.5-160 Progesterone is performed using the [employer]лен[employer] [place] Access Immunoassay. Progesterone testing is performed using a different test methodology at [facility] than other [facility]. Direct result comparison should only be made within the same method. Performed By: #### 2 839-9 #### MARIA E KAPADIA ([id number]) [facility] ([facility]) [address] [id number] TERRENCE US PELVIS LIMITED FOLLIC LES-FOLLICLE STUDIES PERFORMEDon 10-09-2024 TERRENCE US PELVIS LIMITED FOLLICLES-FOLLICLE STUDIES PERFORMED Follicle scan performed with follicle measurements in report. Normal [facility] Estradiolon 10-08-2024 E2 [Mass/Vol] 4637 pg/mL [facility] Comment on above: Order Comment: REF V ALUES FOLLICULAR PHASE 20-144 MID CYCLE 64-357 LUTEAL PHASE 56-214 POSTMENOPAUSE < 32 PREPUBERTY < 20 FEMALE 10-18Y 8-110 MALE 10-18Y < 20 ADULT MALE < 40 Estradiol measurement is performed using the [employer] [place] Access Estradiol Immunoassay. Estradiol testing is performed using a different test methodology at [facility] than other [facility]. Direct result comparison should only be made within the same method. Performed By: #### 2 243-4 #### MARIA E KAPADIA ([id number]) [facility] ([facility]) [address] [place] [address] Follicle Diameter USon 10-08 Follicle scan perfor med with follicle measurements in report. RIS SECTRA ONLY Radiology Study observation (narrative) [facility] Work Phone: Follicle Diameter USOrdered By: Gavino Tristan on 10-08-2024 [facility] Work Phone: Progesteroneon 10-08-2024 Progesterone [Mass/Vol] 0.9 ng/mL Normal [facility] Comment on above: Order Comment: REF V ALUES Male <0.2-0.8 Follicular Phase <0.2-1.5 Luteal Phase 7.4-15.4 Post Menopausal <0.2-0.2 1ST Trimester 12.0-84.0 2ND Trimester 10.2-58.8 3RD Trimester 46.5-160 Progesterone is performed using the Елена [place] Access Immunoassay. Progesterone testing is performed using a different test methodology at [facility] than other [facility]. Direct result comparison should only be made within the same method. Performed By: #### 2 839-9 #### MARIA E KAPADIA ([id number]) [facility] ([facility]) [address] [id number] TERRENCE US PELVIS LIMITED FOLLIC LES-FOLLICLE STUDIES PERFORMEDon 10-08-2024 TERRENCE US PELVIS LIMITED FOLLICLES-FOLLICLE STUDIES PERFORMED Follicle scan performed with follicle measurements in report. Normal [facility] Estradiolon 10-07-2024 E2 [Mass/Vol] 4276 pg/mL [facility] Comment on above: Order Comment: REF V ALUES FOLLICULAR PHASE 20-144 MID CYCLE 64-357 LUTEAL PHASE 56-214 POSTMENOPAUSE < 32 PREPUBERTY < 20 FEMALE 10-18Y 8-110 MALE 10-18Y < 20 ADULT MALE < 40 Estradiol measurement is performed using the [employer] Access Estradiol Immunoassay. Estradiol testing is performed using a different test methodology at [facility] than other [facility]. Direct result comparison should only be made within the same method. Performed By: #### 2 243-4 #### MARIA E KAPADIA ([id number]) [facility] ([facility]) [address] [place] [address] Follicle Diameter USon 10-07 Follicle scan perfor med with follicle measurements in report. RIS SECTRA ONLY Radiology Study observation (narrative) [facility] Work Phone: Follicle Diameter USOrdered By: Gavino Tristan on 10-07-2024 [facility] Work Phone: Progesteroneon 10-07-2024 Progesterone [Mass/Vol] 0.8 ng/mL [facility] Comment on above: Order Comment: REF V ALUES Male <0.2-0.8 Follicular Phase <0.2-1.5 Luteal Phase 7.4-15.4 Post Menopausal <0.2-0.2 1ST Trimester 12.0-84.0 2ND Trimester 10.2-58.8 3RD Trimester 46.5-160 Progesterone is performed using the Елена [place] Access Immunoassay. Progesterone testing is performed using a different test methodology at [facility] than other [facility]. Direct result comparison should only be made within the same method. Performed By: #### 2 839-9 #### MARIA E KAPADIA ([id number]) [facility] ([facility]) [address] [place] [address] TERRENCE US PELVIS LIMITED FOLLIC LES-FOLLICLE STUDIES PERFORMEDon 10-07-2024 TERRENCE US PELVIS LIMITED FOLLICLES-FOLLICLE STUDIES PERFORMED Follicle scan performed with follicle measurements in report. Normal [facility] Estradiolon 10-05-2024 E2 [Mass/Vol] 1290 pg/mL Normal [facility] Comment on above: Order Comment: REF V ALUES FOLLICULAR PHASE 20-144 MID CYCLE 64-357 LUTEAL PHASE 56-214 POSTMENOPAUSE < 32 PREPUBERTY < 20 FEMALE 10-18Y 8-110 MALE 10-18Y < 20 ADULT MALE < 40 Performed By: #### 2 243-4 #### MARIA E KAPADIA ([id number]) [facility] ([facility]) [address] [id number] Follicle Diameter USon 10-05 Follicle scan perfor med with follicle measurements in report. Trilaminar appearance to the endometrium is noted. RIS SECTRA ONLY [facility] Work Phone: Radiology Study observation (narrative) [facility] Work Phone: TERRENCE US PELVIS LIMITED FOLLIC LES-FOLLICLE STUDIES PERFORMEDon 10-05-2024 TERRENCE US PELVIS LIMITED FOLLICLES-FOLLICLE STUDIES PERFORMED Follicle scan performed with follicle measurements in report. Trilaminar appearance to the endometrium is noted. Normal [facility] Estradiolon 10-03-2024 E2 [Mass/Vol] 479 pg/mL Normal [facility] Comment on above: Order Comment: REF V ALUES FOLLICULAR PHASE 20-144 MID CYCLE 64-357 LUTEAL PHASE 56-214 POSTMENOPAUSE < 32 PREPUBERTY < 20 FEMALE 10-18Y 8-110 MALE 10-18Y < 20 ADULT MALE < 40 Performed By: #### 2 243-4 #### MARIA E KAPADIA ([id number]) [facility] ([facility]) [address] [place] [id number] TERRENCE US PELVIS LIMITED FOLLIC LES-FOLLICLE STUDIES PERFORMEDon 10-03-2024 TERRENCE US PELVIS LIMITED FOLLICLES-FOLLICLE STUDIES PERFORMED Follicle scan performed with follicle measurements in report., Trilaminar appearance to the endometrium is noted., and Free fluid is noted in the cul de sac. Normal [facility] CBC panel Auto (Bld)on 09-27 Erythrocyte distribution width (RBC) [Ratio] 12.3 % Normal 11.5-14.5 [facility] Comment on above: Performed By: #### 5 8410-2 #### MARIA E KAPADIA ([id number]) [facility] ([facility]) [address] [place] [address] Hematocrit (Bld) [Volume fraction] 34.4 % Low 36.0-46.0 [facility] Comment on above: Performed By: #### 5 8410-2 #### MARIA E KAPADIA ([id number]) [facility] ([facility]) [address] [id number] Hemoglobin (Bld) [Mass/Vol] 11.4 g/dL Low 12.0-16.0 [facility] Comment on above: Performed By: #### 5 8410-2 #### MARIA E KAPADIA ([id number]) [facility] ([facility]) [address] [id number] MCH (RBC) [Entitic mass] 29.7 pg Normal 26.0-34.0 [facility] Comment on above: Performed By: #### 5 8410-2 #### MARIA E KAPADIA ([id number]) [facility] ([facility]) [address] [id number] MCHC (RBC) [Mass/Vol] 33.1 g/dL Normal 32.0-36.0 [facility] Comment on above: Performed By: #### 5 8410-2 #### MARIA E KAPADIA ([id number]) [facility] ([facility]) [address] [id number] MCV (RBC) [Entitic vol] 90 fL Normal 80-100 [facility] Comment on above: Performed By: #### 5 8410-2 #### MARIA E KAPADIA ([id number]) [facility] ([facility]) [address] [place] [address] Nucleated RBC/100 WBC (Bld) [Ratio] 0.0 /100 WBCs Normal 0.0-0.0 [facility] Comment on above: Performed By: #### 5 8410-2 #### MARIA E KAPADIA ([id number]) [facility] ([facility]) [address] [place] [address] Platelets (Bld) [#/Vol] 334 x10*3/uL Normal 150-450 [facility] Comment on above: Performed By: #### 5 8410-2 #### MARIA E KAPADIA ([id number]) [facility] ([facility]) [address] [place] [address] RBC (Bld) [#/Vol] 3.84 x10*6/uL Low 4.00-5.20 [facility] Comment on above: Performed By: #### 5 8410-2 #### MARIA E KAPADIA ([id number]) [facility] ([facility]) [address] [place] [address] WBC (Bld) [#/Vol] 5.7 x10*3/uL Normal 4.4-11.3 [facility] Comment on above: Performed By: #### 5 8410-2 #### [id number] ([facility]) [address] [place] [address] Estradiolon 09-27-2024 E2 [Mass/Vol] pg/mL Normal [facility] Comment on above: Order Comment: REF V ALUES FOLLICULAR PHASE 20-144 MID CYCLE 64-357 LUTEAL PHASE 56-214 POSTMENOPAUSE < 32 PREPUBERTY < 20 FEMALE 10-18Y 8-110 MALE 10-18Y < 20 ADULT MALE < 40 Performed By: #### 2 243-4 #### [facility] ([id number]) [facility] LAB ([facility]) [address] [place] [address] TERRENCE US PELVIS LIMITED FOLLIC LES-FOLLICLE STUDIES PERFORMEDon 09-27-2024 TERRENCE US PELVIS LIMITED FOLLICLES-FOLLICLE STUDIES PERFORMED Follicle scan performed with follicle measurements in report. and Trilaminar appearance to the endometrium is not noted. Normal [facility] HCG ( test) Ql (U)O rdered By: Sydney Marvel on 08-14-2024 Preg Test, Ur Negative Negative [facility] No Panel InformationOrdered By: Sydney Grier on 08-14-2024 [facility] No Panel Informationon 08-14 Hilary Holder MD 08/14/2024 11:03 AM Hysteroscopy diagnostic Date/Time: 08/14/2024 11:02 AM Performed by: Hilary Holder MD Authorized by: Imelda Pollard MD Consent: Consent obtained: Verbal and written Consent given by: Patient Risks, benefits, and alternatives were discussed: yes Risks discussed: Bleeding, infection and pain [place] protocol: Procedure explained and questions answered to [...] diagnosis: fertility testing Post op diagnosis: Same [employer] Consultant: Fellow Anesthesia: None IV: None EBL: 3 [...] well, no immediate complications [facility] Stool lactoferrin detection by immunoassayOrdered By: Domo Weaver on 12-11-2023 Lactoferrin IA Ql (Stl) [facility] Cervical or vagninal specime n microscopic examination by cytology stain (reported asOrdered By: Iesha Lo on 12-09-2023 Cytology report Cyto stain Doc (Cvx/Vag) Comment . [facility] Comment on above: The Pap smear is a s creening test designed to aid in thedetection of premalignant and malignant conditions of theuterine cervix. It is not a diagnostic procedure andshould not be used as the sole means of detecting cervicalcancer. Both false-positive and false-negative reports dooccur. Laboratory - CytologyOrdered By: Iesha Lo on 12-09-2023 [employer] Cyto stain Nom (Cvx/Vag) [ID] Comment . [facility] Comment on above: Main [place] totechnologist (ASCP) Laboratory - Miscellaneous t estsOrdered By: Iesha Lo on 12-09-2023 Service comment (Unsp spec) [Interp] . . [facility] No Panel InformationOrdered By: Iesha Lo on 12-09-2023 Human Papillomavirus Screen Comment . [facility] Comment on above: The HPV DNA reflex c jewel were not met with this specimenresult therefore, no HPV testing was performed.Performed at: [facility] [id number] [place], [place] [id number] Director: Phi Yoder MD, Phone: [phone] at: [facility] - [facility] [address] [id number] Director: Rose Haney MD, Phone: [phone] Thin prep Papanicolaou smear with manual screeningOrdered By: Iesha Lo on 12-09-2023 Thin prep Papanicolaou smear with manual screening Comment . [facility] Comment on above: NEGATIVE FOR INTRAEP ITHELIAL LESION OR MALIGNANCY. This liquid based Th inPrep(R) pap test was screened withthe use of an image guided system. PROGon 11-25-2023 Progesterone Level 6.0 ng/mL Normal [facility] ([place]) Comment on above: Result Comment: Adul t Female Progesterone Reference Ranges: Follicular phase <0.21 - 1.40 ng/mL Luteal phase 3.34 - 25.56 ng/mL Mid-Luteal phase 4.44 - 28.03 ng/mL Postmenopausal <0.21 - 0.73 ng/ml Female: First trimester 11.22 - 90.00 ng/ml Second trimester 25.55 - 89.40 ng/ml Third trimester 48.40 - 422.50 ng/ml Performed By: #### P ROMEL #### [place] [address] Absolute lymphocyte countOrd ered By: Domo Weaver on 11-06-2023 Lymphocytes Auto (Unsp spec) [#/Vol] 1.91 10*3/uL 0.83-4.51 [facility] Automated lymphocyte count a s percentage of total leukocytesOrdered By: Domo Weaver on 11-06-2023 Lymphocytes/100 WBC Auto (Unsp spec) 37.4 % 19-41 [facility] Basophil percentageOrdered B y: Domo Weaver on 11-06-2023 Basophils/100 WBC (Bld) 0.8 % 0-1 [facility] Eosinophils/100 WBC (Bld) 2.2 % 0-5 [facility] Hemoglobin (Bld) [Mass/Vol] 11.6 g/dL 12.0-15.0 [facility] Monocytes/100 WBC (Bld) 8.2 % 0-10 [facility] Neutrophils (Bld) [#/Vol] 2.6 10*3/uL 2.0-7.7 [facility] Neutrophils/100 WBC (Bld) 51.2 % 47-70 [facility] WBC (Bld) [#/Vol] 5.1 10*3/uL 4.4-11.0 [facility] Determination of erythrocyte mean corpuscular volume (MCV)Ordered By: Domo Weaver on 11-06-2023 MCV (RBC) [Entitic vol] 91.6 fL 81-99 [facility] Erythrocyte distribution wid th ratioOrdered By: Domo Weaver on 11-06-2023 Erythrocyte distribution width (RBC) [Ratio] 12.5 % 11.6-14.6 [facility] Erythrocyte distribution wid th standard deviationOrdered By: Domo Weaver on 11-06-2023 Erythrocyte distribution width (RBC) [Entitic vol] 41.9 fL 35.1-43.9 [facility] Hematocrit Auto (Bld) [Volum e fraction]Ordered By: Domo Weaver on 11-06-2023 Hematocrit (Bld) [Volume fraction] 34.8 % 37-47 [facility] Immature granulocytes/100 WB C Auto (Bld)Ordered By: Domo Weaver on 11-06-2023 Immature granulocytes/100 WBC (Bld) 0.200 % 0.0-0.9 [facility] Comment on above: IG% - Immature Granu locytes (promyelocytes, myelocytes and metamyelocytes) > 1% indicates that a LEFT SHIFT is Present. Laboratory - Hematology and Cell countsOrdered By: Domo Weaver on 11-06-2023 MCH (RBC) [Entitic mass] 30.5 pg 27.0-32.0 [facility] MCHC (RBC) [Mass/Vol] 33.3 g/dL 32-36 [facility] Nucleated RBC/100 WBC (Bld) [Ratio] 0 % 0-5 [facility] Platelet mean volume (Bld) [Entitic vol] 10.5 fL 6.2-12.0 [facility] Platelets (Bld) [#/Vol] 291 10*3/uL 150-450 [facility] No Panel InformationOrdered By: Domo Weaver on 11-06-2023 Miscellaneous Test See comment [facility] Comment on above: Scanned image report available in EMR RBC Auto (Bld) [#/Vol]Ordere d By: Domo Weaver on 11-06-2023 RBC (Bld) [#/Vol] 3.80 10*6/uL 4.2-5.4 [facility] Laboratory - Chemistry and C hemistry - challengeOrdered By: Patrice Macias on 10-01-2023 HCG ( test) Ql (U) Negative [facility] Comment on above: Very dilute urine sp ecimens, as indicated by a low specificgravity, may not contain transportation services representative levels of hCG. If is still suspected, a first morning urinespecimen should be collected 48 hours later and tested. LABORATORYOrdered By: Shira Juarez on 08-27-2023 HCG ( test) Ql Negative (08/27/23 10:05 AM) Normal AO Manual Urine SS test (u) int Not detected Invalid Interpretation Code AO Manual Urine SS PREGUon 08-27-2023 HCG ( test) Ql (U) Negative Normal [facility] ([place]) Comment on above: Performed By: #### P REGU #### [address] [address] test (u) int Not detected Invalid Interpretation Code [facility] ([place]) Comment on above: Performed By: #### P REGU #### [place] [address] No Panel InformationOrdered By: Domo Weaver on 08-07-2023 Stool Calprotectin 275 ug/g 0-120 [facility] Comment on above: Concentration Interp retation Follow-Up< 5 - 50 ug/g Normal None>50 -120 ug/g Borderline Re-evaluate in 4-6 weeks >120 ug/g Abnormal Repeat as clinically indicatedPerformed at: - [facility] [id number] Director: Jose Claros MD, Phone: [phone] Stool lactoferrin detection by immunoassayOrdered By: Domo Weaver on 08-07-2023 Lactoferrin IA Ql (Stl) [facility] CIRANon 08-03-2023 Dil Dewey Viper Venom 35.1 seconds Normal 30.0-42.0 [facility] ([place]) Comment on above: Performed By: #### 5 17358, PROL #### [place] [address] [place] Interpretation See Below Normal [facility] ([place]) Comment on above: Result Comment: No e vidence of lupus anticoagulant. Performed By: #### 5 29619, PROL #### [address] [address] Platelet neutraliz. Negative Normal [facility] ([place]) Comment on above: Performed By: #### 5 57799, PROL #### [facility] [address] [place] [address] Erythrocyte sedimentation ra teOrdered By: Domo Weaver on 08-03-2023 ESR (Bld) [Velocity] 6 mm/h 0-[address] [facility] No Panel InformationOrdered By: Domo Weaver on 08-03-2023 Miscellaneous Test See comment [facility] Comment on above: Scanned image report available in EMR Qualitative QuantiFERON-TB g old in tube testOrdered By: Domo Weaver on 08-03-2023 M. tuberculosis tuberculin stim IFN-g Ql (Bld) 0.16 IU/mL . [facility] Serum or plasma C reactive p rotein measurement (mass/volume)Ordered By: Domo Weaver on 08-03-2023 CRP [Mass/Vol] mg/L 0.0-3.0 [facility] Comment on above: C-Reactive Protein ( CRP) provides useful information for thediagnosis, therapy and monitoring of inflammatory processesand associated diseases. For the evaluation of Relative Riskfor Cardiovascular Disease, a High Sensitivity CRP (HSCRP)should be ordered. Thin prep Papanicolaou smear with manual screeningOrdered By: Domo Weaver on 08-03-2023 Thin prep Papanicolaou smear with manual screening Comment . [facility] Comment on above: QuantiFERON-TB Gold Plus [...] smear with manual screening 0.08 IU/mL . [facility] Thin prep Papanicolaou smear with manual screening 0 IU/mL . [facility] Thin prep Papanicolaou smear with manual screening > 10.00 IU/mL . [facility] Thin prep Papanicolaou smear with manual screening Negative Negative [facility] Comment on above: No response to [...] the productionof interferon gamma. Chemiluminescence immunoassaymethodologyPerformed at: [facility] [employer] [id number] Director: Almas Saavedra PhD, Phone: [phone] [facility] 08-02-2023 [place] AMH 3.40 ng/mL Normal [facility] ([place]) Comment on above: Result Comment: For assays employing antibodies, the possibility exists for interference by heterophile antibodies in the samples.1 1.Tony Marion Interferences in Immunoassays - still a threat. Clin. Chem. 2000; 46: 4519-8378. This test was developed and its performance characteristics determined by [employer]. It has not been cleared or approved by the Food and Drug Administration. Reference Range: Females 26 - 30y: 1.03 - 11.10 Median 4.20 AMH concentrations of >= 1.06 ng/mL is correlated with a better response to ovarian stimulation, produced more retrievable oocytes and higher odds of live according to Gleicher et al. Fertility and Sterility. 2010: 94:3591-5577. The current AMH test method correlates with [...] exclude an AMH-secreting ovarian tumor. Performed At: [employer] [address] [place] [id number] Felisa Umaña MD Ph:[phone] Performed By: #### 5 23969, PROL #### [place] [address] PROLon 07-30-2023 Prolactin 16.5 ng/mL Normal 2.0-30.0 [facility] ([place]) Comment on above: Performed By: #### 5 94007, PROL #### [place] [address] APTTon 07-29-2023 aPTT Coag (Bld) [Time] 33.5 s Normal 25.0-35.0 [facility] ([place]) Comment on above: Result Comment: For Heparin anticoagulation therapy, the recommended therapeutic range is: 54-77 seconds (APTT Correlation with Anti-Xa therapeutic range of 0.3-0.7 units/ml). PLEASE REFERENCE THE PHARMACY PROTOCOL FOR DOSING. Performed By: #### 5 83933, PROL #### [place] [address] Heparin dose (APTT) None Normal [facility] ([place]) Comment on above: Performed By: #### 5 56867, PROL #### [place] [address] .Auto Diffon 04-21-2023 Basophil, Absolute 0.0 10 3/mcL Normal 0.0-0.3 [facility] ([place]) Comment on above: Performed By: #### C BC, TSH, CMP, ANEU, ADIFF, LIPID, GFR #### [place] [address] Basophils/100 WBC (Bld) 0.5 % Normal 0.0-2.5 [facility] ([place]) Comment on above: Performed By: #### C BC, TSH, CMP, ANEU, ADIFF, LIPID, GFR #### [place] [address] Eosinophil, Absolute 0.1 10 3/mcL Normal 0.0-0.7 [facility] ([place]) Comment on above: Performed By: #### C BC, TSH, CMP, ANEU, ADIFF, LIPID, GFR #### [place] [address] Eosinophils/100 WBC (Bld) 1.8 % Normal 0.0-6.0 [facility] ([place]) Comment on above: Performed By: #### C BC, TSH, CMP, ANEU, ADIFF, LIPID, GFR #### [address] [address] Lymphocyte, Absolute 1.8 10 3/mcL Normal 0.9-4.3 [facility] ([place]) Comment on above: Performed By: #### C BC, TSH, CMP, ANEU, ADIFF, LIPID, GFR #### [address] [address] Lymphocytes/100 WBC (Bld) 28.6 % Normal 20.0-40.0 [facility] ([place]) Comment on above: Performed By: #### C BC, TSH, CMP, ANEU, ADIFF, LIPID, GFR #### [address] [address] Monocyte, Absolute 0.5 10 3/mcL Normal 0.1-1.4 [facility] ([place]) Comment on above: Performed By: #### C BC, TSH, CMP, ANEU, ADIFF, LIPID, GFR #### [address] [address] Monocytes/100 WBC (Bld) 7.4 % Normal 2.0-13.0 [facility] ([place]) Comment on above: Performed By: #### C BC, TSH, CMP, ANEU, ADIFF, LIPID, GFR #### [address] [address] Neutrophils/100 WBC (Bld) 61.7 % Normal 50.0-75.0 [facility] ([place]) Comment on above: Performed By: #### C BC, TSH, CMP, ANEU, ADIFF, LIPID, GFR #### [address] [address] .GFRon 04-21-2023 GFR >60 Normal [facility] ([place]) Comment on above: Result Comment: GFR Population [...] mL/min/1.73 square meters Performed By: #### 5 91053, PROL #### [address] [address] GFR Non- >60 Normal [facility] ([place]) Comment on above: Result Comment: GFR Population [...] mL/min/1.73 square meters Performed By: #### 5 12364, PROL #### [place] [address] .NEUABSon 04-21-2023 Neutrophil, Absolute 3.8 10 3/mcL Normal 2.3-8.1 [facility] ([place]) Comment on above: Performed By: #### C BC, TSH, CMP, ANEU, ADIFF, LIPID, GFR #### [address] [address] CBCon 04-21-2023 Erythrocyte distribution width (RBC) [Ratio] 12.5 % Normal 11.5-15.5 [facility] ([place]) Comment on above: Performed By: #### C BC, TSH, CMP, ANEU, ADIFF, LIPID, GFR #### [address] [address] Hematocrit (Bld) [Volume fraction] 36.4 % Normal 34.0-46.0 [facility] ([place]) Comment on above: Performed By: #### C BC, TSH, CMP, ANEU, ADIFF, LIPID, GFR #### [place] [address] Hgb 12.1 G/dL Normal 12.0-16.0 [facility] ([place]) Comment on above: Performed By: #### C BC, TSH, CMP, ANEU, ADIFF, LIPID, GFR #### [place] [address] MCH (RBC) [Entitic mass] 31.0 pg Normal 27.0-33.0 [facility] ([place]) Comment on above: Performed By: #### C BC, TSH, CMP, ANEU, ADIFF, LIPID, GFR #### [place] [address] MCHC 33.4 G/dL Normal 32.0-36.0 [facility] ([place]) Comment on above: Performed By: #### C BC, TSH, CMP, ANEU, ADIFF, LIPID, GFR #### [place] [address] MCV (RBC) [Entitic vol] 92.8 fL Normal 80.0-99.0 [facility] ([place]) Comment on above: Performed By: #### C BC, TSH, CMP, ANEU, ADIFF, LIPID, GFR #### [place] [address] Platelet 298 10 3/mcL Normal 150-450 [facility] ([place]) Comment on above: Performed By: #### C BC, TSH, CMP, ANEU, ADIFF, LIPID, GFR #### [place] [address] Platelet mean volume (Bld) [Entitic vol] 8.8 fL Normal 6.6-10.5 [facility] ([place] Comment on above: Performed By: #### C BC, TSH, CMP, ANEU, ADIFF, LIPID, GFR #### [place] [address] RBC 3.92 10 6/mcL Low 4.10-5.30 [facility] ([place]) Comment on above: Performed By: #### C BC, TSH, CMP, ANEU, ADIFF, LIPID, GFR #### [address] [address] WBC 6.2 10 3/mcL Normal 4.5-10.8 [facility] ([place]) Comment on above: Performed By: #### C BC, TSH, CMP, ANEU, ADIFF, LIPID, GFR #### [address] [address] CMPon 04-21-2023 Albumin Level 4.3 G/dL Normal 3.2-4.8 [facility] ([place]) Comment on above: Performed By: #### C BC, TSH, CMP, ANEU, ADIFF, LIPID, GFR #### [address] [address] Albumin/Globulin [Mass ratio] 1.3 {ratio} Normal 0.9-1.6 [facility] ([place]) Comment on above: Performed By: #### C BC, TSH, CMP, ANEU, ADIFF, LIPID, GFR #### [place] [id number] ALP [Catalytic activity/Vol] 55 U/L Normal 38-126 [facility] ([place]) Comment on above: Performed By: #### C BC, TSH, CMP, ANEU, ADIFF, LIPID, GFR #### [address] [address] ALT [Catalytic activity/Vol] 54 U/L High 10-49 [facility] ([place]) Comment on above: Performed By: #### C BC, TSH, CMP, ANEU, ADIFF, LIPID, GFR #### [address] [address] AST [Catalytic activity/Vol] 33 U/L Normal 8-34 [facility] ([place]) Comment on above: Performed By: #### C BC, TSH, CMP, ANEU, ADIFF, LIPID, GFR #### [place] [id number] Bili Total 0.40 mg/dL Normal 0.20-1.20 [facility] ([place]) Comment on above: Result Comment: Use of this assay is not recommended for patients undergoing treatment with eltrombopag due to the potential for falsely elevated results. Performed By: #### C BC, TSH, CMP, ANEU, ADIFF, LIPID, GFR #### [address] [address] BUN/Creatinine Ratio 21.4 ratio Normal 10.0-22.0 [facility] ([place]) Comment on above: Performed By: #### C BC, TSH, CMP, ANEU, ADIFF, LIPID, GFR #### [address] [address] Calcium [Mass/Vol] 9.3 mg/dL Normal 8.7-10.4 [facility] ([place]) Comment on above: Performed By: #### C BC, TSH, CMP, ANEU, ADIFF, LIPID, GFR #### [address] [address] Chloride [Moles/Vol] 105 mmol/L Normal 98-110 [facility] ([place]) Comment on above: Performed By: #### C BC, TSH, CMP, ANEU, ADIFF, LIPID, GFR #### [address] [address] CO2 [Moles/Vol] 28 mmol/L Normal 22-32 [facility] ([place]) Comment on above: Performed By: #### C BC, TSH, CMP, ANEU, ADIFF, LIPID, GFR #### [address] [address] Creatinine [Mass/Vol] 0.56 mg/dL Normal 0.50-1.20 [facility] ([place]) Comment on above: Performed By: #### C BC, TSH, CMP, ANEU, ADIFF, LIPID, GFR #### [address] [address] Electrolyte Balance 6.0 mEq/L Normal 4.0-15.0 [facility] ([place]) Comment on above: Performed By: #### C BC, TSH, CMP, ANEU, ADIFF, LIPID, GFR #### [address] [address] Globulin 3.2 G/dL Normal 1.5-3.8 [facility] ([place]) Comment on above: Performed By: #### C BC, TSH, CMP, ANEU, ADIFF, LIPID, GFR #### [address] [address] Glucose [Mass/Vol] 99 mg/dL Normal 70-110 [facility] ([place]) Comment on above: Performed By: #### C BC, TSH, CMP, ANEU, ADIFF, LIPID, GFR #### [address] [address] Potassium [Moles/Vol] 4.6 mmol/L Normal 3.5-5.0 [facility] ([place]) Comment on above: Result Comment: Spec imen slightly hemolyzed. Performed By: #### C BC, TSH, CMP, ANEU, ADIFF, LIPID, GFR #### [address] [address] Sodium [Moles/Vol] 139 mmol/L Normal 136-145 [facility] ([place]) Comment on above: Performed By: #### C BC, TSH, CMP, ANEU, ADIFF, LIPID, GFR #### [address] [address] Total Protein 7.5 G/dL Normal 5.7-8.2 [facility] ([place]) Comment on above: Result Comment: No te - New Reference Range in effect 20 Performed By: #### C BC, TSH, CMP, ANEU, ADIFF, LIPID, GFR #### [address] [address] Urea nitrogen [Mass/Vol] 12.0 mg/dL Normal 8.0-22.0 [facility] ([place]) Comment on above: Performed By: #### C BC, TSH, CMP, ANEU, ADIFF, LIPID, GFR #### [address] [address] LIPIDon 04-21-2023 Cholesterol [Mass/Vol] 183 mg/dL Normal 50-199 [facility] ([place]) Comment on above: Result Comment: Chol esterol Reference Interval: Less than 200 Desirable 200-239 Borderline high risk 240 and above High risk Performed By: #### 5 38502, PROL #### [address] [address] Cholesterol in HDL [Mass/Vol] 53 mg/dL Normal 40-59 [facility] ([place]) Comment on above: Performed By: #### 5 18208, PROL #### [address] [address] Cholesterol in LDL [Mass/Vol] 104 mg/dL Normal 0-129 [facility] ([place]) Comment on above: Performed By: #### 5 71755, PROL #### [address] [address] Triglyceride [Mass/Vol] 131 mg/dL Normal 3-149 [facility] ([place]) Comment on above: Performed By: #### 5 49881, PROL #### [address] [address] TSHon 04-21-2023 TSH 0.952 mIU/mL Normal 0.550-4.780 [facility] ([place]) Comment on above: Result Comment: No te - New Reference Range in effect 20 Performed By: #### 5 17943, PROL #### [address] [address] 36on 04-09-2023 36 Name of caller: HEAT HER Relation to patient: patient Contact phone number: [phone] Appointment scheduled with: LANDY BLAIR Appointment date & time: 05/04/23 @ 7:50 AM Reason for visit (are you having any symptoms) : Low blood pressure, unexpected weight gain Transportation issues/ concerns: NO Special accommodations? ( wheel chair, etc) : NO Current medications: STELARA Any refills need: NO Any chronic conditions the provider should be aware of: CHRON'S, 14 WEEKS Normal [facility] 36 In order to comply w ith the No Surprises Act, [facility] is providing you with the following attachments. Any Good Cathy Estimate that may be provided are based on the services you are scheduled to receive. During your visit, there may be additional services required in order for the provider to complete your plan of care. DECLINED Normal [facility] 36on 04-05-2023 36 PATIENT SUBMITTED ON LINE APPOINTMENT REQUEST FOR A PCP APPOINTMENT. SPOKE TO PATIENT AND GOT SOME INFORMATION BUT SHE HAD TO GET OFF THE LINE AND STATES SHE WILL C/B. OK TO SCHEDULE WITH ANY PROVIDER WHEN PATIENT CALLS BACK. FirstName : Marixa LastName : OMI Pronouns : PronounsOther : Email : [email or web address] Phone : [phone] Birthdate : 1995 12:00:00 AM BestTimeToCallBack : Afternoon AppointmentDate : Kirk PhysicianRequested : Symptoms : Weight gain, low blood pressure OptIn : False Normal [facility] Absolute lymphocyte counton 03-05-2022 Lymphocytes Auto (Unsp spec) [#/Vol] 2.37 10*3/uL 0.83-4.51 [facility] Work Phone: Albumin Elph [Mass/Vol]on Albumin [Mass/Vol] 4.1 g/dL 2.9-4.4 [facility] Work Phone: Atypical perinuclear antineu trophil cytoplasmic antibodies measurementon 03-05-2022 Neutrophil cytoplasmic Ab.perinuclear.atypica l IF (S) [Titer] 1:160 titer Neg:<1:20 [facility] Work Phone: Comment on above: The atypical pANCA p attern has been observed in asignificant percentage of patients with ulcerative colitis,primary sclerosing cholangitis and autoimmune hepatitis. Basophil percentageon 2021 Basophil percentage < 0.2 AI 0.0-0.9 [facility] Work Phone: Basophils/100 WBC (Bld) 0.6 % 0-1 [facility] Work Phone: Bilirubin [Mass/Vol] 0.30 mg/dL 0.20-1.[address] [facility] Work Phone: Comment on above: For patients on eltr ombopag therapy, use of [place] TBIL is not recommended. Chloride [Moles/Vol] 105 mmol/L 98-[address] [facility] Work Phone: Eosinophils/100 WBC (Bld) 1.4 % 0-5 [facility] Work Phone: Glucose [Mass/Vol] 90 mg/dL 74-106 [facility] [facility] Work Phone: Neutrophils (Bld) [#/Vol] 3.5 10*3/uL 2.0-7.7 [facility] Work Phone: Neutrophils/100 WBC (Bld) 53.6 % 47-70 [facility] Work Phone: Potassium [Moles/Vol] 3.8 mmol/L 3.5-5.1 [facility] Work Phone: Protein [Mass/Vol] 7.5 g/dL 6.4-8.2 [facility] Work Phone: Sodium [Moles/Vol] 136 mmol/L 136-145 [facility] Work Phone: WBC (Bld) [#/Vol] 6.4 10*3/uL 4.4-11.0 [facility] Work Phone: Blood erythrocytes count (nu mber/volume)on 03-05-2022 RBC (Bld) [#/Vol] 3.69 10*6/uL 4.2-5.4 [facility]: Blood hemoglobin measurement (mass/volume)on 03-05-2022 Hemoglobin (Bld) [Mass/Vol] 11.2 g/dL 12.0-15.0 [facility] Work Phone: Blood lymphocytes/100 leukoc yteson 03-05-2022 Lymphocytes/100 WBC (Bld) 36.9 % 19-41 [facility] Work Phone: Blood monocytes/100 leukocyt eson 03-05-2022 Monocytes/100 WBC (Bld) 7.3 % 0-10 [facility] Work Phone: Blood platelet mean volumeon 03-05-2022 Platelet mean volume (Bld) [Entitic vol] 10.4 fL 6.2-12.0 [facility] Work Phone: Determination of erythrocyte mean corpuscular volume (MCV)on 03-05-2022 MCV (RBC) [Entitic vol] 92.1 fL 81-99 [facility] Work Phone: [phone] Erythrocyte sedimentation ra kushal 03-05-2022 ESR (Bld) [Velocity] 13 mm/h 0-[address] [facility] Work Phone: [phone] Hematocrit Auto (Bld) [Volum e fraction]on 03-05-2022 Hematocrit (Bld) [Volume fraction] 34.0 % 37-47 [facility] Work Phone: [phone] Interpretation of serum or p lasma protein pattern by immunofixation (narrative resulton 03-05-2022 Protein Fractions Immunofixation Jesús [Interp] See comment [facility] Work Phone: [phone] Comment on above: Result: Not Observed Laboratory - Chemistry and C hemistry - challengeon 03-05-2022 ALP [Catalytic activity/Vol] 48 U/L 45-117 [facility] Work Phone: [phone] ALT [Catalytic activity/Vol] 39 U/L 13-56 [facility] Work Phone: [phone] CO2 [Moles/Vol] 25.0 mmol/L 21.0-32.0 [facility] Work Phone: [phone] Globulin (S) [Mass/Vol] 3.6 g/dL 2.2-4.2 [facility] Work Phone: [phone] Urea nitrogen/Creatinine [Mass ratio] 34.1 mg/mg 10-20 [facility] Work Phone: [phone] Laboratory - Hematology and Cell countson 03-05-2022 Erythrocyte distribution width (RBC) [Entitic vol] 41.1 fL 35.1-43.9 [facility] Work Phone: [phone] Erythrocyte distribution width (RBC) [Ratio] 12.0 % 11.6-14.6 [facility] Work Phone: [phone] Immature granulocytes/100 WBC (Bld) 0.200 % 0.0-0.9 [facility] Work Phone: [phone] Comment on above: IG% - Immature Granu locytes (promyelocytes, myelocytes and metamyelocytes) > 1% indicates that a LEFT SHIFT is Present. MCH (RBC) [Entitic mass] 30.4 pg 27.0-32.0 [facility] Work Phone: Nucleated RBC/100 WBC (Bld) [Ratio] 0 % 0-5 [facility] Work Phone: [phone] MCHC Auto (RBC) [Mass/Vol]on 03-05-2022 MCHC (RBC) [Mass/Vol] 32.9 g/dL 32-36 [facility] Work Phone: No Panel Informationon 03-05 Addendum Document Comment . [facility] Work Phone: [phone] Comment on above: Protein electrophore sis scan will follow via computer,mail, or quebracho tanner delivery. Centromere B Antibody <0.2 AI 0.0-0.9 [facility] Work Phone: [phone] Endomysial IgA Antibody Negative Negative [facility] Work Phone: [phone] Estimated GFR (MDRD) Amer 167 mL/min >60 [facility] Work Phone: [phone] Comment on above: GFR Calc Estimated GFR (MDRD) Non-Af Amer 138 mL/min >60 [facility] Work Phone: [phone] Comment on above: Non- GFR Calc Immunoglobulin E 42 IU/mL 6-495 [facility] Work Phone: [phone] PORCELAIN SLUSHER Antibody <0.2 AI 0.0-0.9 [facility] Work Phone: [phone] Platelets bldon 03-05-2022 Platelets (Bld) [#/Vol] 258 10*3/uL 150-450 [facility] Work Phone: [phone] Serum DNA double strand anti body assay (units/volume)on 03-05-2022 DNA double strand Ab Qn (S) [IU]/mL 0-9 [facility] Work Phone: [phone] Comment on above: Negative <5 Equivoca l 5 - 9 Positive >9 Serum Areli-1 antibody assay (u nits/volume)on 03-05-2022 Areli-1 extractable nuclear Ab Qn (S) <0.2 AI 0.0-0.9 [facility] Work Phone: Serum Scl-70 extractable nuc lear antibody assay (units/volume)on 03-05-2022 SCL-70 extractable nuclear Ab Qn (S) <0.2 AI 0.0-0.9 [facility] Work Phone: Serum Ferrell extractable nucl ear antibody detectionon 03-05-2022 Ferrell extractable nuclear Ab Ql (S) <0.2 AI 0.0-0.9 [facility] Work Phone: Serum qirxb-5-basyaglu measu rement by electrophoresison 03-05-2022 Alpha 1 globulin Elph [Mass/Vol] 0.2 g/dL 0.0-0.4 [facility] Work Phone: Alpha 1 globulin Elph [Mass/Vol] 0.7 g/dL 0.4-1.0 [facility] Work Phone: Serum classic neutrophil cyt oplasmic antibody assay (units/volume)on 03-05-2022 Neutrophil cytoplasmic Ab.classic Qn (S) <1:20 titer Neg:<1:20 [facility] Work Phone: Serum globulin measurement ( mass/volume)on 03-05-2022 Globulin (S) [Mass/Vol] 3.1 g/dL 2.2-3.9 [facility] Work Phone: Serum or plasma C reactive p rotein measurement (mass/volume)on 03-05-2022 CRP [Mass/Vol] mg/L 0.0-3.0 [facility] Work Phone: Comment on above: C-Reactive Protein ( CRP) provides useful information for thediagnosis, therapy and monitoring of inflammatory processesand associated diseases. For the evaluation of Relative Riskfor Cardiovascular Disease, a High Sensitivity CRP (HSCRP)should be ordered. Serum or plasma IgA measurem ent (mass/volume)on 03-05-2022 IgA [Mass/Vol] 263 mg/dL 87-352 [facility] Work Phone: Serum or plasma IgG measurem ent (mass/volume)on 03-05-2022 IgG [Mass/Vol] 1132 mg/dL [phone] [facility] Work Phone: Serum or plasma IgM measurem ent (mass/volume)on 03-05-2022 IgM [Mass/Vol] 109 mg/dL 26-217 [facility] Work Phone: Serum or plasma albumin arielel urement (mass/volume)on 03-05-2022 Albumin [Mass/Vol] 3.9 g/dL 3.2-5.0 [facility] Work Phone: Serum or plasma albumin/glob ulin mass ratioon 03-05-2022 Albumin/Globulin [Mass ratio] 1.1 {ratio} 0.9-2.4 [facility] Work Phone: Serum or plasma beta globuli n measurement by electrophoresis (mass/volume)on 03-05-2022 Beta globulin Elph [Mass/Vol] 1.1 g/dL 0.7-1.3 [facility] Work Phone: Serum or plasma calcium arielle urement (mass/volume)on 03-05-2022 Calcium [Mass/Vol] 8.8 mg/dL 8.5-10.1 [facility] Work Phone: Serum or plasma creatinine m easurement (mass/volume)on 03-05-2022 Creatinine [Mass/Vol] 0.56 mg/dL 0.55-1.02 [facility] Work Phone: Comment on above: The validity of the calculated GFR & GFRAA in patients over 70 years has not been determined. Clinical correlation is essential. Serum or plasma cytomegalovi mike (CMV) IgG antibody assay (units/volume)on 03-05-2022 CMV IgG Qn > 10.00 U/mL 0.00-0.59 [facility] Work Phone: Comment on above: Negative <0.60 Equiv ocal 0.60 - 0.69 Positive >0.69 Serum or plasma cytomegalovi mike (CMV) IgM antibody assay (units/volume)on 03-05-2022 CMV IgM Qn < 30.0 AU/mL 0.0-29.9 [facility] Work Phone: Comment on above: Negative <30.0 Equiv ocal 30.0 - 34.9 Positive >34.9A positive result is generally indicative of acuteinfection, reactivation or persistent IgM production.Performed at: [facility] [id number] Director: Almas Saavedra PhD, Phone: [phone] at: [facility] [id number] Director: Jose Claros MD, Phone: [phone] Serum or plasma gamma globul in measurement by electrophoresis (mass/volume)on 03-05-2022 Gamma globulin Elph [Mass/Vol] 1.1 g/dL 0.4-1.8 [facility] Work Phone: Serum or plasma immunoelectr ophoresis interpretation (nominal result)on 03-05-2022 Interpretation IEP [Interp] Comment . [facility] Work Phone: Comment on above: No monoclonality det ected. Serum or plasma urea nitroge n measurement (mass/volume)on 03-05-2022 Urea nitrogen [Mass/Vol] 19 mg/dL 7-18 [facility] Work Phone: Serum perinuclear neutrophil cytoplasmic antibody titer by immunofluorescenceon 03-05-2022 Neutrophil cytoplasmic Ab.perinuclear IF (S) [Titer] <1:20 titer Neg:<1:20 [facility] Work Phone: Comment on above: The presence of posi tive fluorescence exhibiting P-ANCA orC-ANCA patterns alone is not specific for the diagnosis ofWegener's Granulomatosis (WG) or microscopic polyangiitis.Decisions about treatment should not be based solely onANCA IFA results. The [employer] ANCA Group Consensusrecommends follow up testing of positive sera with both GA-3 and MPO-ANCA enzyme immunoassays. As many as 5% serumsamples are positive only by EIA. Ref. AM J Clin Zqkehn9272;111:507-513. Serum tissue transglutaminas e IgA antibody assay (units/volume)on 03-05-2022 tTG IgA Qn (S) <2 U/mL 0-3 [facility] Work Phone: Comment on above: Negative 0 - 3 Weak Positive 4 - 10 Positive >10 Tissue Transglutaminase (tTG) has been identified as the endomysial antigen. Studies have demonstr- ated that endomysial IgA antibodies have over 99% specificity for gluten sensitive enteropathy. Thin prep Papanicolaou smear with manual screeningon 03-05-2022 Thin prep Papanicolaou smear with manual screening 24 U/L 15-37 [facility] Work Phone: Thin prep Papanicolaou smear with manual screening 6 5-15 [facility] Work Phone: Thin prep Papanicolaou smear with manual screening 150 U/L 84-246 [facility] Work Phone: Thin prep Papanicolaou smear with manual screening 1.4 0.7-1.7 [facility] Work Phone: Total protein bloodon 2021 Protein [Mass/Vol] 7.2 g/dL 6.0-8.5 [facility] Work Phone: No Panel Informationon 11-21 Stool Calprotectin 61 ug/g 0-120 [facility] Work Phone: Comment on above: Concentration Interp retation Follow-Up<16 - 50 ug/g Normal None>50 -120 ug/g Borderline Re-evaluate in 4-6 weeks >120 ug/g Abnormal Repeat as clinically indicatedPerformed at: - [facility] [address] [id number] Director: Jose Claros MD, Phone: [phone] HIV 1 and HIV-2 antibody ass ay with HIV-1 p24 antigen detectionon 11-20-2021 HIV 1+2 Ab+HIV1 p24 Ag IA Ql Non-Reactive Nonreactive [facility] Work Phone: No Panel Informationon 11-20 Bordetella pertussis IgG Antibody 1.92 index 0.00-0.94 [facility] Work Phone: Comment on above: Negative <0.95 Equiv ocal 0.95 - 1.04 Positive >1.04Performed at: [facility] [employer] CenterIqplnk[address] [place], [place] [id number] Director: Almas Saavedra PhD, Phone: [phone] at: [facility] [employer] [id number] Director: Jose Claros MD, Phone: [phone] Hepatitis A IgM Antibody Negative Negative [facility] Work Phone: [phone] Hepatitis B Core IgM Antibody Negative Negative [facility] Work Phone: Hepatitis C Antibody (EIA) <0.1 s/co ratio 0.0-0.9 [facility] Work Phone: Comment on above: Negative: < 0.8 Inde terminate: 0.8 - 0.9 Positive: > 0.9 The CDC recommends that a positive HCV antibody result be followed up with a HCV Nucleic Acid Amplification test (172334).Effective December 29, 2021 Hepatitis Panel (4) will be made non-orderable. [employer] offers order code [id number] Acute Hepatitis. Rubella IgG Antibody Reactive Nonreactive [facility] Work Phone: Comment on above: Antibody Results Int erpretation of Immune Status Non Reactive Presumed Non-Immune Equivocal Equivocal Reactive Presumed Immune Qualitative QuantiFERON-TB g old in tube teston 11-20-2021 M. tuberculosis tuberculin stim IFN-g Ql (Bld) 0.72 IU/mL . [facility] Work Phone: Serum Varicella zoster virus IgG antibody assay by immunoassay (units/volume)on 11-20-2021 VZV IgG IA Qn (S) 314 index Immune >165 [facility] Work Phone: Comment on above: Negative <135 Equivo mario 135 - 165 Positive >165A positive result generally indicates exposure to thepathogen or administration of specific immunoglobulins,but it is not indication of active infection or stageof disease. Serum mumps virus IgM antibo dy assay (units/volume)on 11-20-2021 MuV IgM Qn (S) < 0.80 AU 0.00-0.79 [facility] Work Phone: Comment on above: Negative < 0.80 Landry giovani 0.80 - 1.20 Positive > 1.20Note: The presence of IgM specific antibody should beinterpreted in conjunction with the patient's clinicalhistory and exposure risk when an acute infection issuspected. Serum or plasma hepatitis B virus surface antigen detection by immunoassayon 11-20-2021 HBV surface Ag IA Ql Negative Negative [facility] Work Phone: Thin prep Papanicolaou smear with manual screeningon 11-20-2021 Thin prep Papanicolaou smear with manual screening Comment . [facility] Work Phone: Comment on above: The QuantiFERON-TB G old Plus result is determined bysubtracting the Nil value from either TB antigen (Ag) tube.The mitogen tube serves as a control for the test. Thin prep Papanicolaou smear with manual screening 0.44 IU/mL . [facility] Work Phone: Thin prep Papanicolaou smear with manual screening 0.08 IU/mL . [facility] Work Phone: Thin prep Papanicolaou smear with manual screening > 10.00 IU/mL . [facility] Work Phone: Thin prep Papanicolaou smear with manual screening Positive Negative [facility] Work Phone: Comment on above: The [...] Auto (Unsp spec) [#/Vol] 2.55 10*3/uL 0.83-4.51 [facility] Work Phone: Basophil percentageon 2020 Bilirubin [Mass/Vol] 0.20 mg/dL 0.20-1.[address] [facility] Work Phone: Comment on above: For patients on eltr ombopag therapy, use of Dimension [place] TBIL is not recommended. Chloride [Moles/Vol] 106 mmol/L 98-[address] [facility] Work Phone: Eosinophils/100 WBC (Bld) 1.7 % 0-5 [facility] Work Phone: [phone] Glucose [Mass/Vol] 104 mg/dL 74-106 [facility] Work Phone: Comment on above: Fasting Glucose resu lt from 100 to 125 mg/dL suggests IMPAIRED HOMEOSTASIS per A.D.A. criteria.Please note revised GLUCOSE reference range effective 2017. Neutrophils (Bld) [#/Vol] 2.9 10*3/uL 2.0-7.7 [facility] Work Phone: Potassium [Moles/Vol] 3.8 mmol/L 3.5-5.1 [facility] Work Phone: [phone] Protein [Mass/Vol] 7.9 g/dL 6.4-8.2 [facility] Work Phone: Sodium [Moles/Vol] 136 mmol/L 136-145 [facility] Work Phone: WBC (Bld) [#/Vol] 6.0 10*3/uL 4.4-11.0 [facility] Work Phone: Blood erythrocytes count (nu mber/volume)on 07-28-2021 RBC (Bld) [#/Vol] 3.79 10*6/uL 4.2-5.4 [facility] Work Phone: Blood hemoglobin measurement (mass/volume)on 07-28-2021 Hemoglobin (Bld) [Mass/Vol] 11.7 g/dL 12.0-15.0 [facility] Work Phone: Blood lymphocytes/100 leukoc yteson 07-28-2021 Lymphocytes/100 WBC (Bld) 42.2 % 19-41 [facility] Work Phone: Blood monocytes/100 leukocyt eson 07-28-2021 Monocytes/100 WBC (Bld) 6.8 % 0-10 [facility] Work Phone: Blood platelet mean volumeon 07-28-2021 Platelet mean volume (Bld) [Entitic vol] 11.0 fL 6.2-12.0 [facility] Work Phone: Determination of erythrocyte mean corpuscular volume (MCV)on 07-28-2021 MCV (RBC) [Entitic vol] 92.1 fL 81-99 [facility] Work Phone: Erythrocyte sedimentation ra kushal 07-28-2021 ESR (Bld) [Velocity] 22 mm/h 0-30 [facility]: Hematocrit Auto (Bld) [Volum e fraction]on 07-28-2021 Hematocrit (Bld) [Volume fraction] 34.9 % 37-47 [facility] Work Phone: Laboratory - Chemistry and C hemistry - challengeon 07-28-2021 ALP [Catalytic activity/Vol] 42 U/L 45-117 [facility] Work Phone: ALT [Catalytic activity/Vol] 76 U/L 13-56 [facility] Work Phone: CO2 [Moles/Vol] 24.0 mmol/L 21.0-32.0 [facility] Work Phone: Globulin (S) [Mass/Vol] 4.0 g/dL 2.2-4.2 [facility] Work Phone: Urea nitrogen/Creatinine [Mass ratio] 22.3 mg/mg 10-20 [facility] Work Phone: Laboratory - Hematology and Cell countson 07-28-2021 Basophils/100 WBC (Unsp spec) 0.7 % 0-1 [facility] Work Phone: [phone] Erythrocyte distribution width (RBC) [Entitic vol] 41.0 fL 35.1-43.9 [facility] Work Phone: [phone] Erythrocyte distribution width (RBC) [Ratio] 12.0 % 11.6-14.6 [facility] Work Phone: [phone] Immature granulocytes/100 WBC (Bld) 0.200 % 0.0-0.9 [facility] Work Phone: [phone] Comment on above: IG% - Immature Granu locytes (promyelocytes, myelocytes and metamyelocytes) > 1% indicates that a LEFT SHIFT is Present. MCH (RBC) [Entitic mass] 30.9 pg 27.0-32.0 [facility] Work Phone: [phone] Neutrophils/100 WBC (Bld) 48.4 % 47-70 [facility] Work Phone: [phone] Nucleated RBC/100 WBC (Bld) [Ratio] 0 % 0-5 [facility] Work Phone: [phone] MCHC Auto (RBC) [Mass/Vol]on 07-28-2021 MCHC (RBC) [Mass/Vol] 33.5 g/dL 32-36 [facility] Work Phone: No Panel Informationon 07-28 Estimated GFR (MDRD) Amer 146 mL/min >60 [facility] Work Phone: [phone] Comment on above: GFR Calc Estimated GFR (MDRD) Non-Af Amer 121 mL/min >60 [facility] Work Phone: [phone] Comment on above: Non- GFR Calc Miscellaneous Test See comment [facility] Work Phone: [phone] Comment on above: Scanned image report available in EMR Platelets bldon 07-28-2021 Platelets (Bld) [#/Vol] 262 10*3/uL 150-450 [facility] Work Phone: [phone] Serum or plasma C reactive p rotein measurement (mass/volume)on 07-28-2021 CRP [Mass/Vol] mg/L 0.0-3.0 [facility] Work Phone: Comment on above: C-Reactive Protein ( CRP) provides useful information for thediagnosis, therapy and monitoring of inflammatory processesand associated diseases. For the evaluation of Relative Riskfor Cardiovascular Disease, a High Sensitivity CRP (HSCRP)should be ordered. Serum or plasma albumin arielle urement (mass/volume)on 07-28-2021 Albumin [Mass/Vol] 3.9 g/dL 3.2-5.0 [facility] Work Phone: Serum or plasma albumin/glob ulin mass ratioon 07-28-2021 Albumin/Globulin [Mass ratio] 1.0 {ratio} 0.9-2.4 [facility] Work Phone: Serum or plasma calcium arielle urement (mass/volume)on 07-28-2021 Calcium [Mass/Vol] 9.0 mg/dL 8.5-10.1 [facility] Work Phone: Serum or plasma creatinine m easurement (mass/volume)on 07-28-2021 Creatinine [Mass/Vol] 0.63 mg/dL 0.55-1.02 [facility] Work Phone: Comment on above: The validity of the calculated GFR & GFRAA in patients over 70 years has not been determined. Clinical correlation is essential. Serum or plasma urea nitroge n measurement (mass/volume)on 07-28-2021 Urea nitrogen [Mass/Vol] 14 mg/dL 7-18 [facility] Work Phone: Thin prep Papanicolaou smear with manual screeningon 07-28-2021 Thin prep Papanicolaou smear with manual screening 30 U/L 15-37 [facility] Work Phone: Thin prep Papanicolaou smear with manual screening 6 5-15 [facility] Work Phone: Thin prep Papanicolaou smear with manual screening 207 U/L 84-246 [facility] Work Phone: CNOVon 06-30-2019 CNOV Office Visit (WALKWA ) -------- MARIXA GAY ([id number]) 1995 F CHT Date Time Provider Department [...] (HUMIRA) 40 mg/0.4 mL sykt 0.4 mL. mv,iron,hfo-GE-ivyybob cmb.24 400 mcg tab mv,iron,fng-OP-pwdwooh supplement comb. no.24 400 mcg tablet Take [...] file Gets together: Not on file Attends amish service: Not on file Active member of [...] [J02.9] Cough [R05] Order(s):RAPID STREP TEST B/O [4755581] Order #: [id number] XR CHEST 2V FRONTAL/LAT [[id number]] Order #: [id number] FUTURE GROUP A STREPTOCOCCUS BY PCR [SQGASPCR] Order #: [id number] benzonatate (TESSALON PERLE) 100 mg capsuleTake 1 capsule by mouth three times daily as needed.Disp: 30 capsuleRfl: 0 Prescriptions as of 06/30/2019 Sig: OMEPRAZOLE 20 MG DELAYED RELE* Take 20 mg by mouth once avis* ADALIMUMAB 40 MG/0.4 ML SUBCU* 0.4 mL. MV,IRON,BUJ-MV-EQHUUUA SUPPLE* mv,iron,tkf-ZD-zdyisdn supple* BENZONATATE 100 MG CAPSULE Take 1 [...] Status:Closed by HENRIETTA AZUL on 06/30/19 Normal [facility] Group A Strep by PCRon 06-30 GAS Specimen Source Throat Swab Normal [facility] Comment on above: Performed By: #### G ASPCR #### [facility] [address] [address] Group A Strep PCR Negative Normal [facility] Comment on above: Result Comment: This test was developed and its performance characteristics determined by [facility]'s Kamran Marquez [facility] Pathology and Laboratory Medicine [place] ([facility]). It has not been cleared or approved by the FDA. [facility] is regulated under CLIA as qualified to perform high complexity testing. This test is used for clinical purposes. It should not be regarded as investigational or for research. Performed By: #### G ASPCR #### [facility] [address] [address] PROGRESSon 06-30-2019 PROGRESS HNO ID: [id number] Author: Alexandra Garsia Rt Service: ? Author [...] Rt June 30, 2019 3:39 PM Normal [facility] PROGRESS HNO ID: [id number] Author: Henrietta Anderson) HAYDEE Azul Service: ? Author Type: Physician [employer] Consultant Type: Progress Notes Filed: 06/30/2019 2:51 PM [...] (HUMIRA) 40 mg/0.4 mL sykt 0.4 mL. mv,iron,tml-OY-mvysggp cmb.24 400 mcg tab mv,iron,nmz-WW-xzpgocx supplement comb. no.24 400 mcg tablet Take [...] file Gets together: Not on file Attends amish service: Not on file Active member of [...] with plan of care. Henrietta Azul PA-C [facility] XR CHEST 2V FRONTAL/LATon XR CHEST 2V [...] spine noted. IMPRESSION: No acute radiographic abnormality. Electrical Assembly Technician: PSCB Transcribe Date/Time: Jun 30 2019 3:57P Dictated by : BEATRIS TRAN MD This examination was interpreted and the report reviewed and electronically signed by: BEATRIS TRAN MD on Jun 30 2019 3:57PM EST [id number] Normal [facility] CNOVon 08-04-2018 CNOV Office Visit (INTMWS ) -------- MARIXA GAY ([id number]) 1995 F CHT Date Time Provider Department [...] who presents with bloody diarrhea and fever. DIARRHEA:[id number]} occuring 7 to 8 stools/day on average. [...] Prozac [Fluoxetine Hcl]; Zoloft [Sertraline Hcl] MEDICATIONS mv,iron,gkq-YY-nhqtftd cmb.24 400 mcg tab mv,iron,zhn-PN-ghhqdzn supplement comb. no.24 400 mcg tablet Take [...] no evidence of dehydration. Patient lives in [place], here visiting family. She had notified her brick baker DR. Xenia Santana of current symptoms, he advised her to be evaluated in primary care. Called and spoke with Dr. Santana. Concerned about possible sepsis or C-diff. Recommended laboratory evaluation with: - CBC + DIFF - COMP METABOLIC PANEL - BLOOD CULTURE DRAW - BLOOD CULTURE DRAW - ENTERIC BACTERIAL PANEL BY PCR - C. DIFFICILE PCR - URINE CULTURE Orders sent to [facility], insurance will only cover their lab [...] Patient agreeable to treatment plan Shirley Szymanski APRN.AERONAUTICS TEACHER Referring Provider: XENIA SANTANA [[id number]] Allergies As of Date: 08/04/2018 Noted Allergy Reaction PROZAC (FLUOXETINE HCL) 05/30/2015 2 - Rash Comments: Also, not effective ZOLOFT (SERTRALINE HCL) 05/30/2015 2 - Rash Date Reviewed: 08/04/2018 Reviewed by: Ebonie Lopez Faceter - Fully Assessed Primary Visit Diagnosis:Fever, unspecified fever cause [R50.9] Other Visit Diagnoses:Bloody diarrhea [R19.7] 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 DIFFICILE PCR [SQCDPCR] Order #: [id number] URINE CULTURE [SQURCUL] Order #: [id number] FUTURE Prescriptions as of 08/04/2018 Sig: AMOXICILLIN 875 MG TABLET Take 1 tablet by mouth twice * MV,IRON,WVC-OY-JPZDSWW SUPPLE* mv,iron,frv-GI-bfhfkaq supple* ADALIMUMAB 40 MG/0.4 ML SUBCU* 0.4 mL. PREDNISONE 20 MG TABLET Take 20 mg by mouth once avis* Problem List As Of Date 08/04/2018 Noted Resolved Depressive disorder [F32.9] INVALID FOR* Diarrhea [R19.7] INVALID FOR* Iron deficiency anemia [D50.9] INVALID FOR* Left sided colitis (HCC) [K51.50] INVALID FOR* Encounter Status:Closed by SHIRLEY SZYMANSKI CNP on 08/05/18 [facility] PROGRESSon 08-04-2018 PROGRESS HNO ID: [id number] Author: Shirley Oh) Stephon Service: (none) Author Type: Nurse Practitioner Type: Progress Notes Filed: 08/05/2018 8:35 AM Note Text: CC bloody stools, history of ulcerative colitis HPI Marixa Gay is a 23 year old female who presents with bloody diarrhea and fever. DIARRHEA:[id number]} occuring 7 to 8 stools/day on average. [...] Prozac [Fluoxetine Hcl]; Zoloft [Sertraline Hcl] MEDICATIONS mv,iron,hol-CS-brpgsum cmb.24 400 mcg tab mv,iron,qoi-VF-iyosknv supplement comb. no.24 400 mcg tablet Take [...] no evidence of dehydration. Patient lives in [place], here visiting family. She had notified her brick baker DR. Xenia Santana of current symptoms, he advised her to be evaluated in primary care. Called and spoke with Dr. Satnana. Concerned about possible sepsis or C-diff. Recommended laboratory evaluation with: - CBC + DIFF - COMP METABOLIC PANEL - BLOOD CULTURE DRAW - BLOOD CULTURE DRAW - ENTERIC BACTERIAL PANEL BY PCR - C. DIFFICILE PCR - URINE CULTURE Orders sent to [facility], insurance will only cover their lab [...] Patient agreeable to treatment plan Shirley Szymanski APRN.AERONAUTICS TEACHER [facility] CNOVon 07-29-2018 CNOV Office Visit (UCWSTR ) -------- MARIXA GAY ([id number]) 1995 F [facility] Date Time Provider Department 07/29/18 10:45 AM ROLF GRUBER [facility] During your visit today, we recorded the following information about you: Temperature Pulse Respiration Blood pressure 99.2 degrees 96/minute 16/minute 102/70 Weight 73.3 kg Rolf Gruber MD 07/29/2018 11:11 AM Signed Patient presents with: Sinusitis: x 4 days HPI: Feeling sick for 4 days. Visiting from [place]. Positive symptoms: Sore throat, Sinus pressure, Fever [...] (HUMIRA) 40 mg/0.4 mL sykt 0.4 mL. mv,iron,gpx-AM-meysamw cmb.24 400 mcg tab mv,iron,awh-IU-ewkftwz supplement comb. no.24 400 mcg tablet Take [...] ADALIMUMAB 40 MG/0.4 ML SUBCU* 0.4 mL. MV,IRON,MOT-MQ-OJOYDZW SUPPLE* mv,iron,frf-JY-foblxgr supple* PREDNISONE 20 MG TABLET Take 20 [...] Status:Closed by ROLF GRUBER MD on 07/29/18 [facility] PROGRESSon 07-29-2018 PROGRESS HNO ID: [id number] Author: Rolf Gruber Service: (none) Author Type: Physician Type: Progress Notes Filed: 07/29/2018 11:11 AM Note Text: Patient presents with: Sinusitis: x 4 days HPI: Feeling sick for 4 days. Visiting from [place]. Positive symptoms: Sore throat, Sinus pressure, Fever [...] (HUMIRA) 40 mg/0.4 mL sykt 0.4 mL. mv,iron,ent-[place]-xfegqme cmb.24 400 mcg tab mv,iron,qpt-UW-usdydds supplement comb. no.24 400 mcg tablet Take [...] persist >5 days. Rolf Gruber MD [facility] Vital Signs Date Time Vital Sign Value Performing Clinician Facility 06-01-2025 14:47-0400 Body height 160.[address] Catrachito Mercedes MD Work Phone: 2(607)885-044006 [address] 06-01-2025 14:44-0400 Body mass index (BMI) [Ratio] 36.5 kg/m2 Dr. Catrachito Mercedes MD Work Phone: 1(583)598-752506 [address] 06-01-2025 14:44-0400 Body weight 93.[address] Catrachito Mercedes MD Work Phone: 8(008)815-267339 [place] [address] 06-01-2025 14:44-0400 Diastolic blood pressure 78 mm[Hg] Dr. Catrachito Mercedes MD Work Phone: 5(941)444-356806 [address] 06-01-2025 14:44-0400 Systolic blood pressure 127 mm[Hg] Dr. Catrachito Mercedes MD Work Phone: 2(381)156-793506 [address] 05-21-2025 15:12-0400 Body height 160.[address] Catrachito Mercedes MD Work Phone: 3(174)619-711106 [address] 05-21-2025 15:12-0400 Body mass index (BMI) [Ratio] 36.1 kg/m2 Dr. Catrachito Mercedes MD Work Phone: 5(753)723-466006 [address] 05-21-2025 15:12-0400 Body temperature 97.7 [degF] Dr. Catrachito Mercedes MD Work Phone: 4(071)751-117206 [address] 05-21-2025 15:12-0400 Body weight 92.[address] Catrachito Mercedes MD Work Phone: [facility] 05-21-2025 15:12-0400 Diastolic blood pressure 80 mm[Hg] Dr. Catrachito Mercedes MD Work Phone: 7(729)305-389406 [address] 05-21-2025 15:12-0400 Heart rate 87 /min Dr. Catrachito Mercedes MD Work Phone: 0(276)725-232439 [place] [address] 05-21-2025 15:12-0400 Respiratory rate 16 /min Dr. Catrachito Mercedes MD Work Phone: 6(363)790-116239 [place] [address] 05-21-2025 15:12-0400 SaO2% (BldA) [Mass fraction] 98 % Dr. Catrachito Mercedes MD Work Phone: 8(095)838-789239 [place] [address] 05-21-2025 15:12-0400 Systolic blood pressure 125 mm[Hg] Dr. Catrachito Mercedes MD Work Phone: 3(517)072-250539 [place] [address] 05-11-2025 13:52-0400 Body height 160.[address] Catrachito Mercedes MD Work Phone: 6(420)459-364839 [place] [address] 05-11-2025 13:52-0400 Body mass index (BMI) [Ratio] 35.6 kg/m2 Dr. Catrachito Mercedes MD Work Phone: 7(227)696-636539 [place] [address] 05-11-2025 13:52-0400 Body weight 91.[address] Catrachito Mercedes MD Work Phone: 4(809)182-111639 [place] [address] 05-11-2025 13:52-0400 Diastolic blood pressure 86 mm[Hg] Dr. Catrachito Mercedes MD Work Phone: 4(906)852-971339 [place] [address] 05-11-2025 13:52-0400 Systolic blood pressure 130 mm[Hg] Dr. Catrachito Mercedes MD Work Phone: 4(147)826-802239 [place] [address] 05-01-2025 14:59-0400 Body height 160.[address] Catrachito Mercedes MD Work Phone: 8(561)851-919839 [place] [address] 05-01-2025 14:59-0400 Body mass index (BMI) [Ratio] 35.5 kg/m2 Dr. Catrachito Mercedes MD Work Phone: 8(122)235-781239 [place] [address] 05-01-2025 14:59-0400 Body weight 90.[address] Catrachito Mercedes MD Work Phone: 0(241)004-307239 [place] [address] 05-01-2025 14:59-0400 Diastolic blood pressure 78 mm[Hg] Dr. Catrachito Mercedes MD Work Phone: 5(131)800-413639 [place] [address] 05-01-2025 14:59-0400 Systolic blood pressure 125 mm[Hg] Dr. Catrachito Mercedes MD Work Phone: 9(739)158-744439 [place] [address] 04-06-2025 13:00-0400 Body height 160.[address] Catrachito Mercedes MD Work Phone: 2(852)836-064439 [place] [address] 04-06-2025 13:00-0400 Body mass index (BMI) [Ratio] 34.4 kg/m2 Dr. Catrachito Mercedes MD Work Phone: 0(110)994-771639 [place] [address] 04-06-2025 13:00-0400 Body weight 88.[address] Catrachito Mercedes MD Work Phone: 6(170)032-602939 [place] [address] 04-06-2025 13:00-0400 Diastolic blood pressure 79 mm[Hg] Dr. Catrachito Mercedes MD Work Phone: 8(891)957-840639 [place] [address] 04-06-2025 13:00-0400 Systolic blood pressure 138 mm[Hg] Dr. Catrachito Mercedes MD Work Phone: 9(092)979-892139 [place] [address] 03-09-2025 11:36-0400 Body height 160.[address] Catrachito Mercedes MD Work Phone: 1(477)149-165039 [place] [address] 03-09-2025 11:36-0400 Body mass index (BMI) [Ratio] 33.8 kg/m2 Dr. Catrachito Mercedes MD Work Phone: 1(070)658-341939 [place] [address] 03-09-2025 11:36-0400 Body weight 86.[address] Catrachito Mercedes MD Work Phone: 4(762)622-317606 [address] 03-09-2025 11:36-0400 Diastolic blood pressure 85 mm[Hg] Dr. Catrachito Mercedes MD Work Phone: 3(543)362-744239 [place] [address] 03-09-2025 11:36-0400 Systolic blood pressure 129 mm[Hg] Dr. Catrachito Mercedes MD Work Phone: 0(788)954-125839 [place] [address] 02-23-2025 11:01-0400 Body height 160.[address] Catrachito Mercedes MD Work Phone: 0(973)049-153539 [place] [address] 02-23-2025 11:00-0400 Body mass index (BMI) [Ratio] 32.9 kg/m2 Dr. Catrachito Mercedes MD Work Phone: 8(257)138-151139 [place] [address] 02-23-2025 11:00-0400 Body weight 84.[address] Catrachito Mercedes MD Work Phone: 8(146)286-112039 [place] [address] 02-23-2025 11:00-0400 Diastolic blood pressure 86 mm[Hg] Dr. Catrachito Mercedes MD Work Phone: 1(423)281-782439 [place] [address] 02-23-2025 11:00-0400 Systolic blood pressure 135 mm[Hg] Dr. Catrachito Mercedes MD Work Phone: 6(805)780-949939 [place] [address] 02-06-2025 08:17-0400 Body height 160.[address] Catrachito Mercedes MD Work Phone: 6(660)689-559239 [place] [address] 02-06-2025 08:17-0400 Body mass index (BMI) [Ratio] 32.8 kg/m2 Dr. Catrachito Mercedes MD Work Phone: 7(437)067-936339 [place] [address] 02-06-2025 08:17-0400 Body weight 84.[address] Catrachito Mercedes MD Work Phone: 2(136)804-041739 [place] [address] 02-06-2025 08:17-0400 Diastolic blood pressure 70 mm[Hg] Dr. Catrachito Mercedes MD Work Phone: 2(146)126-509039 [place] [address] 02-06-2025 08:17-0400 Systolic blood pressure 118 mm[Hg] Dr. Catrachito Mercedes MD Work Phone: 0(013)589-096539 [place] [address] 02-02-2025 15:25-0400 Body height 160.[address] Catrachito Mercedes MD Work Phone: 7(042)559-241739 [place] [address] 02-02-2025 15:25-0400 Body mass index (BMI) [Ratio] 33 kg/m2 Dr. Catrachito Mercedes MD Work Phone: 9(696)954-665339 [place] [address] 02-02-2025 15:25-0400 Body weight 84.[address] Catrachito Mercedes MD Work Phone: 0(101)216-762939 [place] [address] 02-02-2025 15:25-0400 Diastolic blood pressure 86 mm[Hg] Dr. Catrachito Mercedes MD Work Phone: 1(213)341-010639 [place] [address] 02-02-2025 15:25-0400 Systolic blood pressure 143 mm[Hg] Dr. Catrachito Mercedes MD Work Phone: 3(969)862-602539 [place] [address] 01-25-2025 14:45-0400 Body height 160.[address] Catrachito Mercedes MD Work Phone: 8(514)677-485539 [place] [address] 01-25-2025 14:45-0400 Body mass index (BMI) [Ratio] 32.6 kg/m2 Dr. Catrachito Mercedes MD Work Phone: 0(114)112-896639 [place] [address] 01-25-2025 14:45-0400 Body weight 83.[address] Catrachito Mercedes MD Work Phone: 0(426)749-991439 [place] [address] 01-25-2025 14:45-0400 Diastolic blood pressure 62 mm[Hg] Dr. Catrachito Mercedes MD Work Phone: 7(113)492-431639 [place] [address] 01-25-2025 14:45-0400 Systolic blood pressure 128 mm[Hg] Dr. Catrachito Mercedes MD Work Phone: [facility] 01-22-2025 11:18-0400 Respiratory rate 18 /min Amy Alvarezs [facility] 01-22-2025 11:17-0400 Diastolic blood pressure 76 mm[Hg] Amy Tsiros RN [facility] 01-22-2025 11:17-0400 Heart rate 85 /min Amy Pintoiros RN [facility] 01-22-2025 11:17-0400 SaO2% (BldA) [Mass fraction] 100 % Amy Tsiros RN [facility] 01-22-2025 11:17-0400 Systolic blood pressure 145 mm[Hg] [facility] 01-22-2025 11:16-0400 Body temperature 98.01 [degF] Amy Cherry RN [facility] 12-11-2024 14:54-0400 Body height 160 cm Denise Ordonez MD Work Phone: [facility] 12-11-2024 14:54-0400 Body mass index (BMI) [Ratio] 32.6 kg/m2 Denise Ordonez MD Work Phone: [facility] 12-11-2024 14:54-0400 Body temperature 97.3 [degF] Denise Ordonez MD Work Phone: [facility] 12-11-2024 14:54-0400 Body weight 83.46 kg Denise Ordonez MD Work Phone: [facility] 12-11-2024 14:54-0400 Diastolic blood pressure 63 mm[Hg] Denise Ordonez MD Work Phone: [facility] 12-11-2024 14:54-0400 Heart rate 73 /min Denise Ordonez MD Work Phone: [facility] 12-11-2024 14:54-0400 SaO2% (BldA) [Mass fraction] 98 % Denise Ordonez MD Work Phone: [facility] 12-11-2024 14:54-0400 Systolic blood pressure 122 mm[Hg] Denise Ordonez MD Work Phone: [facility] 11-22-2024 10:52-0400 Diastolic blood pressure 63 mm[Hg] Hernietta Herndon MD Work Phone: [facility] 11-22-2024 10:52-0400 Heart rate 77 /min Henrietta Herndon MD Work Phone: [facility] 11-22-2024 10:52-0400 Respiratory rate 16 /min Henrietta Herndon MD Work Phone: [facility] 11-22-2024 10:52-0400 SaO2% (BldA) [Mass fraction] 100 % Henrietta Herndon MD Work Phone: [facility] 11-22-2024 10:52-0400 Systolic blood pressure 107 mm[Hg] Henrietta Herndon MD Work Phone: [facility] 11-22-2024 10:22-0400 Body temperature 99.1 [degF] Henrietta Herndon MD Work Phone: [facility] 11-22-2024 08:38-0400 Body height 160 cm Henrietta Herndon MD Work Phone: [facility] 11-22-2024 08:38-0400 Body mass index (BMI) [Ratio] 33.59 kg/m2 Henrietta Herndon MD Work Phone: [facility] 11-22-2024 08:38-0400 Body weight 86 kg Henrietta Herndon MD Work Phone: [facility] 10-11-2024 10:33-0500 Diastolic blood pressure 62 mm[Hg] Henrietta Herndon MD Work Phone: [facility] 10-11-2024 10:33-0500 Heart rate 76 /min Henrietta Herndon MD Work Phone: [facility] 10-11-2024 10:33-0500 Respiratory rate 16 /min Henrietta Herndon MD Work Phone: [facility] 10-11-2024 10:33-0500 SaO2% (BldA) [Mass fraction] 99 % Henrietta Herndon MD Work Phone: [facility] 10-11-2024 10:33-0500 Systolic blood pressure 112 mm[Hg] Henrietta Herndon MD Work Phone: [facility] 10-11-2024 09:47-0500 Body temperature 97.9 [degF] Henrietta Herndon MD Work Phone: [facility] 10-11-2024 07:55-0500 Body height 160 cm Henrietta Herndon MD Work Phone: [facility] 10-11-2024 07:55-0500 Body mass index (BMI) [Ratio] 32.57 kg/m2 Henrietta Herndon MD Work Phone: [facility] 10-11-2024 07:55-0500 Body weight 83.4 kg Henrietta Herndon MD Work Phone: [facility] 08-14-2024 11:03-0500 Diastolic blood pressure 88 mm[Hg] Gavino Tristan MD Work Phone: [facility] 08-14-2024 11:03-0500 Heart rate 64 /min Gavino Tristan MD Work Phone: [facility] 08-14-2024 11:03-0500 Respiratory rate 18 /min Gavino Tristan MD Work Phone: [facility] 08-14-2024 11:03-0500 SaO2% (BldA) [Mass fraction] 99 % Gavino Tristan MD Work Phone: [facility] 08-14-2024 11:03-0500 Systolic blood pressure 143 mm[Hg] Gavino Tristan MD Work Phone: [facility] 08-14-2024 10:44-0500 Body temperature 97 [degF] Gavino Tristan MD Work Phone: 7(166)897-154304 [place] [address] 08-14-2024 10:32-0500 Body height 160 cm Gavino Tristan MD Work Phone: [facility] 08-14-2024 10:32-0500 Body mass index (BMI) [Ratio] 32.65 kg/m2 Gavino Tristan MD Work Phone: [facility] 08-14-2024 10:32-0500 Body weight 83.6 kg Gavino Tristan MD Work Phone: 9(167)146-522093 [place] [address] 07-14-2024 13:31-0500 Body height 160 cm Imelda Pollard MD Work Phone: 9(424)117-547993 [place] [address] 07-14-2024 13:31-0500 Body mass index (BMI) [Ratio] 32.31 kg/m2 Imelad Pollard MD Work Phone: 6(696)582-421793 [place] [address] 07-14-2024 13:31-0500 Body weight 82.72 kg Imelda Pollard MD Work Phone: 8(285)751-148593 [place] [address] 07-14-2024 13:31-0500 Diastolic blood pressure 79 mm[Hg] Imelda Pollard MD Work Phone: [facility] 07-14-2024 13:31-0500 Heart rate 64 /min Imelda Pollard MD Work Phone: [facility] 07-14-2024 13:31-0500 Systolic blood pressure 128 mm[Hg] Imelda Pollard MD Work Phone: [facility] 01-25-2024 11:08-0400 Body height 160 cm Sarah DELAROSA Work Phone: 1(720)254-082593 [place] [address] 01-25-2024 11:08-0400 Body mass index (BMI) [Ratio] 31.18 kg/m2 Sarah DELAROSA Work Phone: [facility] 01-25-2024 11:08-0400 Body weight 79.83 kg Sarah DELAROSA Work Phone: [facility] 12-09-2023 13:23-0400 Body height 160.[address] Domo Weaver Work Phone: [facility] 12-09-2023 13:23-0400 Body mass index (BMI) [Ratio] 32.9 kg/m2 Dr. Domo Weaver Work Phone: [facility] 12-09-2023 13:23-0400 Body weight 84.[address] Domo Weaver Work Phone: [facility] 12-09-2023 13:23-0400 Diastolic blood pressure 87 mm[Hg] Dr. Domo Weaver Work Phone: [facility] 12-09-2023 13:23-0400 Systolic blood pressure 138 mm[Hg] Dr. Domo Weaver Work Phone: [facility] 10-01-2023 13:00-0500 Body temperature 97.2 [degF] No Primary Care Physician [facility] 10-01-2023 13:00-0500 Diastolic blood pressure 54 mm[Hg] No Primary Care Physician [facility] 10-01-2023 13:00-0500 Heart rate 55 /min No Primary Care Physician [facility] 10-01-2023 13:00-0500 Respiratory rate 16 /min No Primary Care Physician [facility] 10-01-2023 13:00-0500 SaO2% (BldA) [Mass fraction] 100 % No Primary Care Physician [facility] 10-01-2023 13:00-0500 Systolic blood pressure 107 mm[Hg] No Primary Care Physician [facility] 10-01-2023 11:19-0500 Body height 160.02 cm No Primary Care Physician [facility] 10-01-2023 11:19-0500 Body mass index (BMI) [Ratio] 31.6 kg/m2 No Primary Care Physician [facility] 10-01-2023 11:19-0500 Body weight 81 kg No Primary Care Physician [facility] 08-27-2023 14:07-0500 Diastolic Blood Pressure Non-Invasive 56 mm[Hg] ERNA TROTTER MD [facility] 08-27-2023 14:07-0500 Systolic Blood Pressure Non-Invasive 102 mm[Hg] ERNA TROTTER MD [facility] 08-27-2023 13:22-0500 Diastolic Blood Pressure Non-Invasive 64 mm[Hg] ERNA TROTTER MD [facility] 08-27-2023 13:22-0500 Heart rate 65 /min ERNA TROTTER MD [facility] 08-27-2023 13:22-0500 Respiratory rate 12 /min ERNA TROTTER MD [facility] 08-27-2023 13:22-0500 Systolic Blood Pressure Non-Invasive 117 mm[Hg] ERNA TROTTER MD [facility] 08-27-2023 13:01-0500 Diastolic Blood Pressure Non-Invasive 99 mm[Hg] ERNA TROTTER MD [facility] 08-27-2023 13:01-0500 Heart rate 61 /min ERNA TROTTER MD [facility] 08-27-2023 13:01-0500 Respiratory rate 15 /min ERNA TROTTER MD [facility] 08-27-2023 13:01-0500 Systolic Blood Pressure Non-Invasive 121 mm[Hg] ERNA TROTTER MD [facility] 08-27-2023 12:55-0500 Heart rate 51 /min ERNA TROTTER MD [facility] 08-27-2023 12:55-0500 Respiratory rate 19 /min ERNA TROTTER MD [facility] 08-27-2023 12:45-0500 Body temperature 97.52 [degF] ERNA TROTTER MD [facility] 08-27-2023 12:35-0500 Respiratory Rate - Anes 32 br/min ERNA TROTTER MD [facility] 08-27-2023 12:30-0500 Respiratory Rate - Anes 10 br/min ERNA TROTTER MD [facility] 08-27-2023 12:25-0500 Respiratory Rate - Anes 10 br/min ERNA TROTTER MD [facility] 08-27-2023 10:13-0500 Body height 160 cm ERNA TROTTER MD [facility] 08-27-2023 10:13-0500 Body temperature 97.52 [degF] ERNA TROTTER MD [facility] 08-27-2023 10:13-0500 Body weight 75 kg ERNA TROTTER MD [facility] 08-27-2023 10:13-0500 Heart rate 63 /min ERNA TROTTER MD [facility] 08-13-2023 07:38-0500 Blood Pressure Location ERNA TROTTER MD [facility] 08-13-2023 07:38-0500 Body height 160 cm ERNA TROTTER MD [facility] 08-13-2023 07:38-0500 Body weight 79.5 kg ERNA TROTTER MD [facility] 08-13-2023 07:38-0500 Body weight 31.05 kg/m2 ERNA TROTTER MD [facility] 08-13-2023 07:38-0500 Diastolic Blood Pressure Non-Invasive 64 mm[Hg] ERNA TROTTER MD [facility] 08-13-2023 07:38-0500 Heart rate 78 /min ERNA TROTTER MD [facility] 08-13-2023 07:38-0500 Respiratory rate 20 /min ERNA TROTTER MD [facility] 08-13-2023 07:38-0500 Systolic Blood Pressure Non-Invasive 110 mm[Hg] ERNA TROTTER MD [facility] 04-10-2022 14:39-0400 Body temperature 97.1 [degF] No Primary Care Physician [facility] Work Phone: 04-10-2022 14:39-0400 Diastolic blood pressure 61 mm[Hg] No Primary Care Physician [facility] Work Phone: 04-10-2022 14:39-0400 Heart rate 54 /min No Primary Care Physician [facility] Work Phone: 04-10-2022 14:39-0400 Respiratory rate 16 /min No Primary Care Physician [facility] Work Phone: 04-10-2022 14:39-0400 SaO2% (BldA) [Mass fraction] 99 % No Primary Care Physician [facility] Work Phone: 04-10-2022 14:39-0400 Systolic blood pressure 115 mm[Hg] No Primary Care Physician [facility] Work Phone: 04-10-2022 12:44-0400 Body height 160.02 cm No Primary Care Physician [facility] Work Phone: 04-10-2022 12:44-0400 Body mass index (BMI) [Ratio] 26.5 kg/m2 No Primary Care Physician [facility] Work Phone: 04-10-2022 12:44-0400 Body weight 68.03 kg No Primary Care Physician [facility] Work Phone: 03-05-2022 15:37-0400 Body height 160.02 cm No Primary Care Physician [facility] Work Phone: 03-05-2022 15:37-0400 Body mass index (BMI) [Ratio] 27.3 kg/m2 No Primary Care Physician [facility] Work Phone: 03-05-2022 15:37-0400 Body weight 69.85 kg No Primary Care Physician [facility] Work Phone: 03-05-2022 15:37-0400 Diastolic blood pressure 70 mm[Hg] No Primary Care Physician [facility] Work Phone: 03-05-2022 15:37-0400 Heart rate 65 /min No Primary Care Physician [facility] Work Phone: 03-05-2022 15:37-0400 SaO2% (BldA) [Mass fraction] 98 % No Primary Care Physician [facility] Work Phone: 03-05-2022 15:37-0400 Systolic blood pressure 123 mm[Hg] No Primary Care Physician [facility] Work Phone: Encounters Encounter Date Encounter Type Care Provider Facility Start: 07-06-2025 End: 07-06-2025 ambulatory Catrachito Mercedes Facility:[facility] Start: 07-04-2025 End: 07-04-2025 ambulatory MD NO PRIMARY CARE [facility] Start: 07-04-2025 ambulatory Carmen goldsmithy:[facility] Start: 06-26-2025 End: 06-29-2025 ambulatory Carmen Lugo Facility:[facility] Start: 06-22-2025 End: 06-22-2025 ambulatory NO PRIMARY CARE [facility] Start: 06-21-2025 End: 06-21-2025 ambulatory Catrachito Mercedes Facility:[facility] Start: 06-15-2025 End: 06-15-2025 ambulatory Marcia Yen Facility:[facility] Start: 06-01-2025 End: 06-01-[address] Marcia Yen DO -[facility] Work Phone: Start: 06-01-2025 End: 06-01-[address] Catrachito Mercedes MD Work Phone: -[facility] Start: 05-21-2025 End: 05-21-[address] Catrachito Mercedes MD Work Phone: -[facility] Start: 05-21-2025 End: 05-21-2025 Patient encounter procedure Marcia MEZA -[facility] Work Phone: Start: 05-18-2025 End: 05-18-2025 [facility] Start: 05-13-2025 End: 05-13-[address] Catrachito Mercedes MD Work Phone: -Laboratory Specimen Start: 05-13-2025 End: 05-13-2025 Patient encounter procedure Domo Friend DO -Laboratory Specimen Work Phone: Start: 05-12-2025 End: 05-13-[address] Catrachito Mercedes MD Work Phone: -Laboratory Start: 05-12-2025 End: 05-12-2025 Patient encounter procedure Domo Friend DO -Laboratory Work Phone: Start: 05-11-2025 End: 05-11-2025 Patient encounter procedure Iesha Lo CNM -[facility] Work Phone: Start: 05-11-2025 End: 05-12-[address] Catrachito Mercedes MD Work Phone: -[facility] Start: 05-08-2025 End: 05-08-[address] PATRICK CARBAJAL MD Facility:A Start: 05-08-2025 End: 05-08-2025 ambulatory [facility] Start: 05-01-2025 End: 05-01-[address] Carmen Lugo MD -[facility] Work Phone: Start: 05-01-2025 End: 05-01-[address] Catrachito Mercedes MD Work Phone: [facility] Start: 04-20-2025 End: 04-20-2025 ambulatory RENA SPAIN [facility] Start: 04-06-2025 End: 04-06-2025 Patient encounter procedure Iesha NASCIMENTO -[facility] Work Phone: Start: 04-06-2025 End: 04-06-[address] Catrachito Mercedes MD Work Phone: [facility] Start: 03-10-2025 End: 03-10-[address] Catrachito Mercedes MD Work Phone: -Laboratory Start: 03-10-2025 End: 03-10-2025 Patient encounter procedure Domo Weaver DO -Laboratory Work Phone: Start: 03-09-2025 End: 03-09-[address] Carmen Lugo MD -[facility] Work Phone: Start: 03-09-2025 End: 03-10-[address] Catrachito Mercedes MD Work Phone: [facility] Start: 02-23-2025 End: 02-23-[address] Marcia Yen DO -[facility] Work Phone: Start: 02-23-2025 End: 02-23-[address] Catrachito Mercedes MD Work Phone: -[facility] Start: 02-06-2025 End: 02-06-2025 Patient encounter procedure Iesha Lo [facility] Work Phone: Start: 02-06-2025 End: 02-06-[address] Catrachito Mercedes MD Work Phone: [facility] Work Phone: Start: 02-06-2025 End: 02-06-2025 ambulatory Catrachito Mercedes Facility:[facility] Start: 02-02-2025 End: 02-02-[address] Catrachito Mercedes MD Work Phone: [facility] Work Phone: Start: 02-02-2025 End: 02-02-2025 Patient encounter procedure Mary Beth Allen [facility] Work Phone: Start: 02-02-2025 End: 02-02-2025 ambulatory Catrachito Mercedes Facility:[facility] Start: 01-26-2025 End: 01-26-[address] Carmen Lugo MD -[facility] Work Phone: Start: 01-26-2025 End: 01-26-[address] Catrachito Mercedes MD Work Phone: [facility] Work Phone: Start: 01-25-2025 End: 01-25-2025 Patient encounter procedure Katelyn Benitez EGGS INSPECTOR-AERONAUTICS TEACHER Work Phone: [facility] Comment on above: Encounter to determi ne viability of , single or unspecified fetus (Primary Dx) Start: 01-25-2025 End: 01-25-2025 ambulatory KATELYN BENITEZ [facility] Start: 01-22-2025 End: 01-22-2025 Emergency department patient visit DENISE ORDONEZ [facility] Comment on above: Vaginal discharge (P rimary Dx) Start: 01-18-2025 End: 01-18-2025 ambulatory KATELYN Gisel ELI [facility] Start: 01-11-2025 End: 01-11-2025 Patient encounter procedure Sarah Espino EGGS INSPECTOR-AERONAUTICS TEACHER Work Phone: [facility] Comment on above: Encounter to determi ne viability of , single or unspecified fetus (Primary Dx) Start: 01-11-2025 End: 01-11-2025 ambulatory SARAH ESPINO [facility] Start: 01-09-2025 End: 01-09-2025 ambulatory DENISE ORDONEZ [facility] Start: 01-06-2025 End: 01-06-[address] Catrachito Mercedes MD Work Phone: [facility] Work Phone: Start: 01-06-2025 End: 01-06-2025 Patient encounter procedure Domo Weaver DO -Laboratory Work Phone: Start: 01-05-2025 End: 01-06-2025 ambulatory DENISE ORDONEZ [facility] Start: 01-01-2025 End: 01-01-2025 ambulatory Catrachito Mercedes Facility:[facility] Start: 01-01-2025 End: 01-01-2025 Patient encounter procedure Domo Weaver DO -[facility] Work Phone: Start: 12-26-2024 End: 12-26-2024 Subsequent hospital visit by physician Gavino Tristan MD Work Phone: [facility] Comment on above: Encounter for assist ed reproductive fertility cycle Start: 12-26-2024 End: 12-26-2024 ambulatory DENISE ORDONEZ [facility] Start: 12-20-2024 End: 12-20-2024 Office outpatient new 30 minutes Anabell Rogel MD Work Phone: [facility] Comment on above: Plantar wart (Primar y Dx); Dermatologic problem Start: 12-20-2024 End: 12-20-2024 ambulatory ANABELL A ANOOP [facility] Start: 12-20-2024 End: 12-20-2024 ambulatory DENISE Billingsley [facility] Start: 12-15-2024 End: 12-15-2024 Professional / ancillary services management [facility] [id number] [facility] Comment on above: Female infertility Start: 12-15-2024 End: 12-15-2024 ambulatory IMELDA Analilia [facility] Start: 12-11-2024 End: 12-11-2024 Initial preventive medicine new pt age 18-39yrs Denise Ordonez MD Work Phone: [facility] [place] Comment on above: Healthcare maintenan ce (Primary Dx); Hypovitaminosis D; Polycystic ovarian disease; Crohn's disease of colon without complication (Multi) Start: 12-11-2024 End: 12-11-2024 Patient encounter status Denise Ordonez MD Work Phone: [facility] Work Phone: Start: 12-11-2024 End: 12-11-2024 ambulatory DENISE Analilia ORDONEZ [facility] Start: 12-11-2024 End: 12-11-2024 Encounter for general adult medical examination without abnormal findings DENISE ORDONEZ [facility] Start: 12-04-2024 End: 12-04-2024 ambulatory IMELDA [facility] Start: 11-22-2024 End: 11-22-2024 Subsequent hospital visit by physician Henrietta Herndon MD Work Phone: [facility] Comment on above: Encounter for assist ed reproductive fertility cycle Start: 11-22-2024 End: 11-22-2024 ambulatory HENRIETTA HERNDON [facility] Start: 11-21-2024 End: 11-21-2024 ambulatory [facility] Start: 11-21-2024 End: 11-21-2024 Encounter for blood typing [facility] Start: 11-20-2024 End: 11-20-2024 Patient encounter status Mac [facility] Work Phone: Start: 11-20-2024 End: 11-20-2024 Professional / ancillary services management Mac [id number] [facility] Comment on above: Fertility testing (P rimary Dx); Female infertility; Screening for diabetes mellitus; Encounter for Rh blood typing; Screening for STDs (sexually transmitted diseases); Screening for thyroid disorder Start: 11-20-2024 End: 11-20-2024 ambulatory ALEJANDRA Sargent [facility] Start: 11-20-2024 End: 11-20-2024 Encounter for blood typing ALEJANDRA Sargent [facility] Start: 11-18-2024 End: 11-18-2024 Professional / ancillary services management Mac [id number] [facility] Comment on above: Female infertility Start: 11-18-2024 End: 11-18-2024 ambulatory ALEJANDRA Sargent [facility] Start: 11-16-2024 End: 11-16-2024 Professional / ancillary services management Mac [id number] [facility] Nicol [facility]hal[facility] Comment on above: Female infertility Start: 11-16-2024 End: 11-16-2024 ambulatory ALEJANDRA Sargent [facility] Start: 11-14-2024 End: 11-14-2024 Professional / ancillary services management Mac [id number] [facility] Nicol [facility]haliwal Comment on above: Female infertility Start: 11-14-2024 End: 11-14-2024 ambulatory ALEJANDRA Sargent [facility] Start: 11-08-2024 End: 11-08-2024 Professional / ancillary services management Mac [id number] [facility] Nicol [facility]haliwal Comment on above: Female infertility Start: 11-08-2024 End: 11-08-2024 ambulatory ALEJANDRA Sargent [facility] Start: 10-11-2024 End: 10-11-2024 Subsequent hospital visit by physician Henrietta Herndon MD Work Phone: Nicol [facility] Comment on above: Encounter for assist ed reproductive fertility cycle Start: 10-11-2024 End: 10-11-2024 ambulatory HENRIETTA HERNDON [facility] Start: 10-10-2024 End: 10-10-2024 ambulatory IMELDA [facility] Start: 10-09-2024 End: 10-09-2024 Professional / ancillary services management Mac [id number] [facility] Comment on above: Female infertility Start: 10-09-2024 End: 10-09-2024 ambulatory ALEJANDRA Sargent [facility] Start: 10-08-2024 End: 10-08-2024 Professional / ancillary services management Mac [id number] [facility]hali[facility] Comment on above: Female infertility Start: 10-08-2024 End: 10-08-2024 ambulatory ALEJANDRA Sargent [facility] Start: 10-07-2024 End: 10-07-2024 Professional / ancillary services management Mac [id number] [facility] Nicol Dhaliwal Comment on above: Female infertility Start: 10-07-2024 End: 10-07-2024 ambulatory ALEJANDRA Sargent [facility] Start: 10-05-2024 End: 10-05-2024 Professional / ancillary services management Mac [id number] [facility] Nicol Dhaliwal Comment on above: Female infertility Start: 10-05-2024 End: 10-05-2024 ambulatory ALEJANDRA Sargent [facility] Start: 10-03-2024 End: 10-03-2024 ambulatory IMELDA Billingsley [facility] Start: 09-29-2024 End: 09-29-2024 ambulatory [facility] Start: 09-27-2024 End: 09-27-2024 Professional / ancillary services management Mac [id number] [facility] Nicol Dhaliwal Comment on above: Arrived Female infertility Start: 09-27-2024 End: 09-27-2024 ambulatory ALEJANDRA Sargent [facility] Start: 09-19-2024 End: 09-19-2024 ambulatory [facility] Start: 09-15-2024 End: 09-15-2024 ambulatory MARCIA Sargent [facility] Amb[facility] Start: 09-15-2024 End: 09-15-2024 Encounter for general adult medical examination without abnormal findings MARCIA Sargent [facility] Start: 08-14-2024 End: 08-14-2024 Subsequent hospital visit by physician Gavino Tristan MD Work Phone: Nicol [facility] Comment on above: Endometritis (Primar y Dx); Fertility testing Start: 08-14-2024 End: 08-14-2024 ambulatory GAVINO TRISTAN [facility] Start: 07-24-2024 ambulatory Catrachito Mercedes Facilit y:[facility] Start: 07-14-2024 End: 07-14-2024 Patient encounter procedure Imelda Pollard MD Work Phone: [facility] Comment on above: Fertility testing (P rimary Dx); Encounter for preprocedural laboratory examination; Female fertility problem [N97.9] Start: 07-14-2024 End: 07-14-2024 Patient encounter status Imelda Pollard MD Work Phone: [facility] Work Phone: Start: 07-14-2024 End: 07-14-2024 ambulatory IMELDA POLLARD [facility] Start: 07-14-2024 End: 07-14-2024 Encounter for preprocedural laboratory examination IMELDA POLLARD [facility] Start: 01-25-2024 End: 01-25-2024 Telemedicine consultation with patient Sarah Espino EGGS INSPECTOR-AERONAUTICS TEACHER Work Phone: [facility] Comment on above: Female infertility ( Primary Dx); Endometriosis Start: 12-11-2023 End: 12-11-[address] Domo Weaver Work Phone: [facility] Work Phone: Start: 12-11-2023 End: 12-11-[address] Domo Weaver [facility] Work Phone: Start: 12-09-2023 End: 12-09-[address] Domo Weaver Work Phone: [facility] Work Phone: Start: 12-09-2023 End: 12-09-[address] Domo Weaver Work Phone: [facility]-Laboratory, Specimen Work Phone: Start: 12-09-2023 End: 12-09-[address] Domo Weaver Work Phone: [facility] Work Phone: Start: 11-25-2023 End: 11-26-2023 ambulatory CATRACHITO MERCEDES MD Facility:A Start: 11-06-2023 End: 11-06-2023 ambulatory No Primary Care Physician [facility] Work Phone: Start: 11-06-2023 End: 11-06-2023 Patient encounter procedure No Primary Care Physician [facility]-Laboratory Work Phone: Start: 10-01-2023 Non-patient / Non-visit No Primary Care Physician [facility] Start: 10-01-2023 End: 10-01-2023 Admission to same day surgery center No Primary Care Physician [facility]-Endoscopy Work Phone: Start: 10-01-2023 End: 10-01-2023 ambulatory No Primary Care Physician [facility] Work Phone: Start: 08-27-2023 End: 08-27-2023 ambulatory ERNA TROTTER MD Facility:B Start: 08-27-2023 End: 08-27-2023 SAME DAY STAY ERNA TROTTER MD [facility] Start: 08-13-2023 End: 08-14-2023 ambulatory ERNA TROTTER MD Facility:B Start: 08-13-2023 End: 08-13-2023 Admission to [facility] ERNA TROTTER MD [facility] Start: 08-07-2023 End: 08-07-2023 ambulatory No Primary Care Physician [facility] Work Phone: Start: 08-07-2023 End: 08-07-2023 Patient encounter procedure No Primary Care Physician [facility]-Laboratory, Specimen Work Phone: Start: 08-03-2023 End: 08-03-2023 ambulatory No Primary Care Physician [facility] Work Phone: Start: 08-03-2023 End: 08-03-2023 Patient encounter procedure No Primary Care Physician [facility] Work Phone: Start: 07-29-2023 End: 07-30-2023 ambulatory ERNA TROTTER MD Facility:A Start: 04-20-2023 End: 04-25-2023 ambulatory CATRACHITO MERCEDES MD Facility:A Start: 04-09-2023 Telephone encounter Landy blankenship EGGS INSPECTOR - AERONAUTICS TEACHER Work Phone: [facility] Comment on above: NO SURPRISE ACT New Patient Start: 04-05-2023 Telephone encounter Galina diaz MD Work Phone: [facility] Comment on above: Appointment Request Start: 04-10-2022 End: 04-10-2022 Patient encounter procedure No Primary Care Physician [facility]-Medical Out Start: 03-05-2022 End: 03-05-2022 Patient encounter procedure No Primary Care Physician [facility]-Laboratory Start: 03-05-2022 End: 03-05-2022 Patient encounter procedure No Primary Care Physician [facility] Start: 11-26-2021 End: 11-26-2021 Patient encounter procedure No Primary Care Physician [facility]-Radiology, [place] Start: 11-21-2021 End: 11-21-2021 Patient encounter procedure No Primary Care Physician [facility]-Laboratory, Specimen Start: 11-20-2021 End: 11-20-2021 Patient encounter procedure No Primary Care Physician [facility]-Laboratory Start: 10-22-2021 End: 10-22-2021 Patient encounter procedure No Primary Care Physician [facility] Gastro Virtual Start: 07-28-2021 Patient encounter procedure No Primary Care Physician [facility]-Laboratory Start: 07-28-2021 End: 07-28-2021 Patient encounter procedure No Primary Care Physician [facility] Procedures Date Procedure Procedure Detail [...] Work Phone: Comment on above: Test Ordered: [id number] Ustekinumab Drug + AntibodyUstekinumab 8.9 ug/mL ES [...] R, et al. Clin Gastroenterol Hepatol 2017;15: 0818-5056.4. Tessa MORA et al. Br J Dermatol;2015:173;855-857.5. Grover H, et al. PLOS ONE DOI;10:1371/journal.pone.3930679.6. Allan Billingsley et al. Br J Dermatol 2014;170:261-273.These tests were developed and their performancecharacteristics determined by [facility]. They have not beencleared or approved by the Food and Drug Administration.However, both drug and anti-drug antibody assays have beendeveloped and validated in accordance with FDA Guidance forIndustry documents: Bioanalytical Method Validation (2013)and Assay Development and Validation for ImmunogenicityTesting of Therapeutic Protein Products (2016).Performed at: [facility] [address] [id number] Director: Michelle Acharya MD, Phone: [phone] at: [facility] [id number] Director: Almas Saavedra PhD, Phone: [phone] Start: 03-10-2025 Total iron binding capacity measurement Dr. Catrachito Mercedes MD Work Phone: Start: 02-06-[address] Catrachito Mrecedes MD Work Phone: Start: 02-06-2025 Hepatitis C [...] HCV Quant by PCR testing - HCVPCR #[id number] Non Reactive: < 0.8 Equivocal: >/= 0.8 [...] Work Phone: Comment on above: Test Ordered: [id number] Ustekinumab Drug + AntibodyUstekinumab 3.9 ug/mL ES [...] R, et al. Clin Gastroenterol Hepatol 2017;15: 7918-4884.4. Tessa SP, et al. Br J Dermatol;2015:173;855-857.5. Grover H, et al. PLOS ONE DOI;10:1371/journal.pone.2458420.6. Allan L, et al. Br J Dermatol 2014;170:261-273.These tests were developed and their performancecharacteristics determined by [facility]. They have not beencleared or approved by the Food and Drug Administration.However, both drug and anti-drug antibody assays have beendeveloped and validated in accordance with FDA Guidance forIndustry documents: Bioanalytical Method Validation (2013)and Assay Development and Validation for ImmunogenicityTesting of Therapeutic Protein Products (2016).Performed at: [facility] [address] [place], [place] [id number] Director: Gregg Roberto MD, Phone: [phone] at: - [facility] [place], [place] [id number] Director: Almas Saavedra PhD, Phone: [phone] Start: 01-22-2025 Us uterus 14 wk transabdl 08/30 gestat Zane Jimenez Konstantin EGGS INSPECTOR-AERONAUTICS TEACHER Work Phone: Start: 01-22-2025 Blood typing serologic rh (d) Zane Jimenez Konstantin EGGS INSPECTOR-AERONAUTICS TEACHER Work Phone: Start: 01-22-2025 Comprehensive metabolic panel Zane Jimenez Konstantin EGGS INSPECTOR-AERONAUTICS TEACHER Work Phone: Start: 01-22-2025 Smr prim src wet mount nfct agt Zane Jimenez oKnstantin EGGS INSPECTOR-AERONAUTICS TEACHER Work Phone: Start: 01-22-2025 Urnls dip stick/tablet rgnt auto w/o microscopy Zane Jimenez Konstantin EGGS INSPECTOR-AERONAUTICS TEACHER Work Phone: Start: 12-26-2024 Embryo transfer intrauterine Imelda pollock MD Work Phone: Start: 12-26-2024 Ultrasonic guidance intraoperative Jose Pollard MD Work Phone: Start: 12-20-2024 DESTRUCTION OF LESION Anabell Rogel MD Work Phone: Start: 12-20-2024 Lipid 1996 panel - Serum or Plasma Bill Tristan MD Work Phone: Start: 11-22-2024 Follicle puncture oocyte retrieval any method Katelyn Benitez EGGS INSPECTOR-AERONAUTICS TEACHER Work Phone: Start: 11-20-2024 Us pelvic nonobstetric [...] puncture oocyte retrieval any method Katelyn Benitez EGGS INSPECTOR-AERONAUTICS TEACHER Work Phone: Start: 10-08-2024 Us pelvic nonobstetric [...] or Population) (1 - 1-dose 75+ series) [facility] Start: 2044 Zoster Vaccines (1 of 2) Zoster Vaccines (1 of 2) [facility] Start: 07-12-2034 DTaP/Tdap/Td Vaccines (2 - Tdap) DTaP/Tdap/Td Vaccines (2 - Tdap) [facility] Start: 12-20-2029 Lipid panel Lipid Panel [facility] Start: 12-20-2025 Vitamin D25-OH Vitamin D25-OH [facility] Start: 12-12-2025 Yearly Adult Physical Yearly Adult Physical [facility] Start: 06-21-2025 Procedure [facility] Start: 06-01-2025 Measurement of glucose 2 hours after glucose challenge for glucose tolerance test [facility] Start: 06-01-2025 Serologic test for syphilis [facility] Start: 06-01-2025 [facility] Start: 05-13-2025 Giardia Antigen (LIZZ) Giardia Antigen (LIZZ) [facility] Start: 05-13-2025 Ova and Parasites Ova and Parasites [facility] Start: 02-06-2025 CBC W Auto Differential panel - Blood [facility] Start: 02-06-2025 Hemoglobin A1c/Hemoglobin.total in Blood [facility] Start: 02-06-2025 Hepatitis C antibody measurement [facility] Start: 02-06-2025 Rubella IgG measurement [facility] Start: 02-06-2025 Serologic test for syphilis [facility] Start: 02-06-2025 [facility] Start: 01-25-2025 End: 01-25-2025 Patient encounter procedure 01/25/2025 2:00 PM EDT Office Visit Nicol [facility]haliwal [address] [place] [address] Katelyn Benitez, EGGS INSPECTOR-AERONAUTICS TEACHER [address] [place] [address] Nicol [facility]iwal Start: 01-25-2025 End: 01-25-2025 Professional / ancillary services management 01/25/2025 1:30 PM EDT Ancillary Procedure Nicol Dhaliwal [address] [place] [address] Nicol [facility]haliwal Start: 01-11-2025 End: 01-11-2026 US Pelvis transvaginal US OB transvaginal Imaging Routine Encounter to determine viability of , single or unspecified fetus Expected: 01/11/2025, Expires: 01/11/2026 [facility] Service Area Work Phone: Comment on above: Expected: 01/11/2025, Expires: Start: 01-10-2025 End: 01-10-2025 Patient encounter procedure 01/10/2025 9:30 AM EDT Office Visit [address] [address] Anabell Michael MD [address] [place] [address] [facility] Start: 01-05-2025 End: 01-05-2025 Professional / ancillary services management 01/05/2025 8:30 AM EDT Ancillary Procedure Camarena Hieu Aliciaon [address] [place] [phone] Camarena Hieu Dhaliwal Start: 12-26-2024 End: 12-26-2024 Patient encounter procedure 12/26/2024 11:00 AM EDT Procedure Visit Nicol Dhaliwal [address] [place] [address] Imelda Pollard MD [address] [place] [address] Nicol [facility]haliwal Start: 12-20-2024 End: 12-20-2024 Patient encounter procedure [facility] Comment on above: Arrived Start: 12-15-2024 End: 12-15-2024 Professional / ancillary services management 12/15/2024 6:45 AM EDT Ancillary Procedure Camarenaangelica Hagen Madhuri [address] [place] [address] Camarenaangelica Hagen Madhuri Start: 12-11-2024 End: 12-11-2024 Patient encounter procedure 12/11/2024 2:30 PM EDT Office Visit [facility] [address] [place] [address] [place] [address] [address] [facility] [address] [place] [address] [facility] Start: 12-11-2024 End: 12-11-2025 25-hydroxyvitamin D3 [Mass/volume] in Serum or Plasma Vitamin D 25-Hydroxy,Total (for eval of Vitamin D levels) Lab Routine Hypovitaminosis D Expected: 12/11/2024 (Approximate), Expires: 12/11/2025 [facility] Work Phone: Comment on above: Expected: 12/11/2024 (Approximate), Expi res: 12/11/2025 Start: 12-11-2024 End: 12-11-2025 Lipid 1996 panel - Serum or Plasma Lipid Panel Lab Routine Healthcare maintenance Expected: 12/11/2024 (Approximate), Expires: 12/11/2025 [facility] Service Area Work Phone: Comment on above: Expected: 12/11/2024 (Approximate), Expi res: 12/11/2025 Start: 11-22-2024 End: 11-22-2024 Patient encounter procedure 11/22/2024 10:00 AM EDT Procedure Visit Camarena Risdae Dhaliwal [address] [place] [phone] Henrietta Herndon MD [address] [place] [address] [facility] Start: 11-20-2024 End: 11-20-2025 Blood type and Indirect antibody screen panel - Blood Type And Screen Is this order related to or an upcoming surgery? No Lab Routine Encounter for Rh blood typing Expected: 11/20/2024 (Approximate), Expires: 11/20/2025 [facility] Work Phone: Comment on above: Expected: 11/20/2024 (Approximate), Expi res: 11/20/2025 Start: 11-20-2024 End: 11-20-2025 Chlamydia trachomatis and Neisseria gonorrhoeae DNA [Identifier] in Unspecified specimen by ALEKSEY with probe detection C. trachomatis / N. gonorrhoeae, Amplified, Urogenital Lab Routine Screening for STDs (sexually transmitted diseases) Expected: 11/20/2024 (Approximate), Expires: 11/20/2025 [facility] Work Phone: Comment on above: Expected: 11/20/2024 (Approximate), Expi res: 11/20/2025 Start: 11-20-2024 End: 11-20-2025 Hemoglobin A1c/Hemoglobin.total in Blood Hemoglobin A1C Lab Routine Screening for diabetes mellitus Expected: 11/20/2024 (Approximate), Expires: 11/20/2025 [facility] Work Phone: Comment on above: Expected: 11/20/2024 (Approximate), Expi res: 11/20/2025 Start: 11-20-2024 End: 11-20-2025 Hepatitis B virus surface Ag [Presence] in Serum or Plasma by Immunoassay Hepatitis B surface antigen Lab Routine Screening for STDs (sexually transmitted diseases) Expected: 11/20/2024 (Approximate), Expires: 11/20/2025 [facility] Work Phone: Comment on above: Expected: 11/20/2024 (Approximate), Expi res: 11/20/2025 Start: 11-20-2024 End: 11-20-2025 Hepatitis C virus Ab [Presence] in Serum Hepatitis C Antibody Lab Routine Screening for STDs (sexually transmitted diseases) Expected: 11/20/2024 (Approximate), Expires: 11/20/2025 [facility] Work Phone: Comment on above: Expected: 11/20/2024 (Approximate), Expi res: 11/20/2025 Start: 11-20-2024 End: 11-20-2025 HIV 1+2 Ab+HIV1 p24 Ag [Presence] in Serum or Plasma by Immunoassay HIV 1/2 Antigen/Antibody Screen with Reflex to Confirmation Lab Routine Screening for STDs (sexually transmitted diseases) Expected: 11/20/2024 (Approximate), Expires: 11/20/2025 [facility] Work Phone: Comment on above: Expected: 11/20/2024 (Approximate), Expi res: 11/20/2025 Start: 11-20-2024 End: 11-20-2025 Lutropin [Units/volume] in Serum or Plasma Luteinizing Hormone Lab STAT Female infertility Expected: 11/20/2024 (Approximate), Expires: 11/20/2025 [facility] Work Phone: Comment on above: Expected: 11/20/2024 (Approximate), Expi res: 11/20/2025 Start: 11-20-2024 End: 11-20-2025 Progesterone [Mass/volume] in Serum or Plasma Progesterone Lab STAT Female infertility Expected: 11/20/2024 (Approximate), Expires: 11/20/2025 [facility] Service Area Work Phone: Comment on above: Expected: 11/20/2024 (Approximate), Expi res: 11/20/2025 Start: 11-20-2024 End: 11-20-2025 [facility]), FEMALE [facility]), FEMALE Lab Routine Fertility testing Expected: 11/20/2024 (Approximate), Expires: 11/20/2025 [facility] Work Phone: Comment on above: Expected: 11/20/2024 (Approximate), Expi res: 11/20/2025 Start: 11-20-2024 End: 11-20-2025 Treponema pallidum IgG+IgM Ab [Presence] in Serum by Immunoassay Syphilis Screen with Reflex Lab Routine Screening for STDs (sexually transmitted diseases) Expected: 11/20/2024 (Approximate), Expires: 11/20/2025 [facility] Work Phone: Comment on above: Expected: 11/20/2024 (Approximate), Expi res: 11/20/2025 Start: 11-20-2024 End: 11-20-2025 TSH with reflex to Free T4 if abnormal TSH with reflex to Free T4 if abnormal Lab Routine Screening for thyroid disorder Expected: 11/20/2024 (Approximate), Expires: 11/20/2025 [facility] Work Phone: Comment on above: Expected: 11/20/2024 (Approximate), Expi res: 11/20/2025 Start: 11-20-2024 End: 11-20-2024 Professional / ancillary services management 11/20/2024 9:45 AM EDT Ancillary Procedure Nicol Aliciaon [address] [place] [phone] [facility] Start: 11-18-2024 End: 11-18-2025 Progesterone [Mass/volume] in Serum or Plasma Progesterone Lab STAT Female infertility Expected: 11/18/2024 (Approximate), Expires: 11/18/2025 [facility] Service Area Work Phone: Comment on above: Expected: 11/18/2024 (Approximate), Expi res: 11/18/2025 Start: 11-18-2024 End: 11-18-2024 Professional / ancillary services management 11/18/2024 10:00 AM EDT Ancillary Procedure Nicol Aliciaon [address] [place] [phone] [facility] Start: 11-16-2024 End: 11-16-2024 Professional / ancillary services management 11/16/2024 7:45 AM EDT Ancillary Procedure SERGEI Aliciaon [address] [place] [address] [facility] Start: 11-14-2024 End: 11-14-2025 Estradiol (E2) [Mass/volume] in Serum or Plasma Estradiol Lab STAT Female infertility Expected: 11/14/2024 (Approximate), Expires: 11/14/2025 [facility] Service Area Work Phone: Comment on above: Expected: 11/14/2024 (Approximate), Expi res: 11/14/2025 Start: 11-14-2024 End: 11-14-2024 Professional / ancillary services management 11/14/2024 7:15 AM EDT Ancillary Procedure Nicol Dhaliwal [address] [place] [address] Nicol Dhaliwal Start: 11-08-2024 End: 11-08-2025 Estradiol (E2) [Mass/volume] in Serum or Plasma Estradiol Lab STAT Female infertility Expected: 11/08/2024 (Approximate), Expires: 11/08/2025 [facility] Service Area Work Phone: Comment on above: Expected: 11/08/2024 (Approximate), Expi res: 11/08/2025 Start: 10-31-2024 End: 10-31-2024 Social Work 10/31/2024 12:[address] [place] [address] [facility] Start: 10-27-2024 End: 10-27-2024 ambulatory 10/27/2024 8:[address] [place] [address] Marcia Kiser, EGGS INSPECTOR-AERONAUTICS TEACHER [address] [facility] [place] [address] [facility] Start: 10-18-2024 End: 10-18-2024 Social Work 10/18/2024 11:[address] [place] [address] [facility] Start: 10-13-2024 End: 10-13-2024 ambulatory 10/13/2024 8:[address] [place] [address] Marcia Kiser, EGGS INSPECTOR-AERONAUTICS TEACHER [address] [facility] [place] [address] [facility] Start: 10-11-2024 End: 10-11-2024 Patient encounter procedure 10/11/2024 9:15 AM EST Procedure Visit [facility] [address] [place] [phone] Henrietta Herndon MD [address] [place] [address] [facility] Start: 10-08-2024 End: 10-08-2024 Professional / ancillary services management 10/08/2024 8:30 AM EST Ancillary Procedure [facility] [address] [place] [address] [facility] Start: 10-07-2024 End: 10-07-2024 Professional / ancillary services management 10/07/2024 9:00 AM EST Ancillary Procedure [facility] [address] [place] [address] [facility] Start: 10-03-2024 End: 10-03-2024 [facility] Start: 09-29-2024 End: 09-29-2024 ambulatory 09/29/2024 8:[address] [place] [address] Marcia Kiser, EGGS INSPECTOR-AERONAUTICS TEACHER [address] Jannet [address]ra Department of Medicine[facility] [place] [address] [facility] Start: 09-15-2024 End: 09-15-2024 ambulatory 09/15/2024 8:[address] [place] [address] Marcia Kiser, EGGS INSPECTOR-AERONAUTICS TEACHER [address] [address]ou[address] Department [place] [address] [facility] Start: 08-13-2024 End: 10-14-2024 Choriogonadotropin ( test) [Presence] in Urine POCT , urine manually resulted Point of Care Testing Routine Encounter for preprocedural laboratory examination Expected: 08/13/2024 (Approximate), Expires: 10/14/2024 [facility] Service Area Work Phone: Comment on above: Expected: 08/13/2024 (Approximate), Expi res: 10/14/2024 Start: 08-13-2024 End: 07-14-2025 Hysteroscopy diagnostic Hysteroscopy diagnostic Procedures Routine Fertility testing Expected: 08/13/2024 (Approximate), Expires: 07/14/2025 [facility] Work Phone: Comment on above: Expected: 08/13/2024 (Approximate), Expi res: 07/14/2025 Start: 04-30-2024 COVID-19 Vaccine () COVID-19 Vaccine () [facility] Start: 12-09-2023 Liquid based cervical cytology screening [facility] Start: 10-01-2023 Colonoscopy w/biopsy single/multiple COLONOSCOPY AND BIOPSY [facility] Start: 10-01-2023 Egd transoral biopsy single/multiple EGD BIOPSY SINGLE/MULTIPLE [facility] Start: 10-01-2023 Patient discharge [facility] Start: 08-07-2023 Protein measurement [facility] Start: 08-03-2023 Procedure [facility] Start: 05-04-2023 End: 05-04-2023 Patient encounter procedure 05/04/2023 7:50 AM EDT Office Visit [facility] [address] [place] [phone] Landy Blair, EGGS INSPECTOR - AERONAUTICS TEACHER [address] [place] [address] [facility] Start: 04-30-2023 COVID-19 Vaccine () COVID-19 Vaccine () [facility] Start: 04-30-2023 Influenza vaccination Influenza Vaccine (#1) [facility] Start: 04-10-2022 Iv infusion therapy/prophylaxis /dx 1st to 1 hr THER/PROPH/DIAG IV INF INIT [facility] Work Phone: Start: 03-05-2022 Celiac disease screen [facility] Work Phone: Start: 03-05-2022 Cytomegalovirus IgG antibody measurement [facility] Work Phone: Start: 03-05-2022 Cytomegalovirus IgM antibody assay [facility] Work Phone: Start: 03-05-2022 Immunoglobulin measurement [facility] Work Phone: Start: 03-05-2022 Serum immunofixation [facility] Work Phone: Start: 03-05-2022 [facility] Work Phone: Start: 2016 DTaP/Tdap/Td Vaccines (1 - Tdap) DTaP/Tdap/Td Vaccines (1 - Tdap) [facility] Start: 2015 Screening for malignant neoplasm of cervix [facility] Start: 2013 DTaP/Tdap/Td Vaccines (1 - Tdap) DTaP/Tdap/Td Vaccines (1 - Tdap) [facility] Start: 2013 Hepatitis B Vaccines (1 of 3 - 19+ 3-dose series) Hepatitis B Vaccines (1 of 3 - 19+ 3-dose series) [facility] Start: 2012 Hepatitis C screening Hepatitis C Screening [facility] Start: 2007 Varicella vaccination Varicella Vaccines (1 of 2 - 13+ 2-dose series) [facility] Start: 2006 Depression Screening Depression Screening [facility] Start: 1995 MMR Vaccines (1 of 1 - Standard series) MMR Vaccines (1 of 1 - Standard series) [facility] Start: 1995 Varicella vaccination Varicella Vaccines (1 of 2 - 2-dose childhood series) [facility] Start: 01-08-1995 COVID-19 Vaccine (#1) COVID-19 Vaccine (#1) [facility] Start: 1994 Cyanocobalamin vitamin b-12 Vitamin B-12 [facility] Start: 1994 Hepatitis B Vaccines (1 of 3 - 3-dose series) Hepatitis B Vaccines (1 of 3 - 3-dose series) [facility] Start: 1994 HIV screening HIV Screening [facility] Start: 1994 Lipid panel Lipid Panel [facility] Start: 1994 Screening for osteoporosis Bone Density Scan [facility] Start: 1994 TB Test TB Test [facility] Start: 1994 Vitamin D25-[place] Vitamin D25-OH [facility] Start: 1994 Yearly Adult Physical Yearly Adult Physical [facility] Alanine aminotransfe rase [Enzymatic activity/volume] in Serum or Plasma [facility] Albumin [Mass/volume ] in Serum or Plasma [facility] Albumin [Moles/volum e] in Serum or Plasma [facility] Work Phone: Albumin/Globulin ratio [facility] Work Phone: Alkaline phosphatase [Enzymatic activity/volume] in Serum or Plasma [facility] Anion gap in Serum or Plasma [facility] Antibody to lupus La protein measurement [facility] Work Phone: Antibody to SS-A measurement [facility] Work Phone: Bilirubin, total measurement [facility] BUN/Creatinine ratio [facility] C reactive protein [Mass/volume] in Serum or Plasma [facility] Calcium [Mass/volume ] in Serum or Plasma [facility] Carbon dioxide, tota l [Moles/volume] in Central venous blood [facility] CBC W Auto Different ial panel - Blood [facility] CBC W Auto Different ial panel - Blood [facility] Centromere protein B Ab [Units/volume] in Serum [facility] Work Phone: Chlamydia deoxyribon ucleic acid detection [facility] Chlamydia deoxyribon ucleic acid detection [facility] End: 01-22-2025 Chlamydia trachomatis and Neisseria gonorrhoeae DNA [Identifier] in Unspecified specimen by ALEKSEY with probe detection [facility] Service Area Work Phone: Comment on above: Once (Lab) for 1 Occurrences starting until 01/22/2025 End: 10-11-2024 Choriogonadotropin ( test) [Presence] in Urine POCT , urine manually resulted Point of Care Testing Routine Once (Lab) for 1 Occurrences starting 10/11/2024 until 10/11/2024 [facility] Service Area Work Phone: Comment on above: Once (Lab) for 1 Occurrences starting until 10/11/2024 End: 11-22-2024 Choriogonadotropin ( test) [Presence] in Urine POCT , urine manually resulted Point of Care Testing Routine Once (Lab) for 1 Occurrences starting 11/22/2024 until 11/22/2024 [facility] Work Phone: Comment on above: Once (Lab) for 1 Occurrences starting until 11/22/2024 Chromatin Ab [Units/ volume] in Serum or Plasma [facility] Work Phone: Clostridioides diffi cile DNA [Presence] in Unspecified specimen by ALEKSEY with probe detection [facility] Work Phone: Colonoscopy [facility] Creatinine [Mass/vol ume] in Serum or Plasma [facility] Cytomegalovirus IgG antibody measurement [facility] Work Phone: Cytomegalovirus IgM antibody assay [facility] Work Phone: Dehydroepiandrostero ne sulfate (DHEA-S) [Mass/volume] in Serum or Plasma [facility] DNA double strand Ab [Units/volume] in Serum [facility] Work Phone: Electrophoresis: [id number] [facility] Work Phone: Electrophoresis: emiliana ma globulin [facility] Work Phone: Erythrocyte mean cor puscular volume determination [facility] Erythrocyte sedimentation rate [facility] End: 02-05-2025 Estradiol (E2) [Mass/volume] in Serum or Plasma Estradiol Lab STAT Female infertility Daily (including weekends) for 8 Occurrences starting 10/08/2024 until 02/05/2025 [facility] Service Area Work Phone: Comment on above: Daily (including weekends) for 8 Occurre nces starting 10/08/2024 until 02/05/2025 End: 01-22-2025 Extra Urine Costello Tube [facility] Work Phone: Comment on above: Once for 1 Occurrences starting 01/23/20 until 01/22/2025 Fat [Mass/mass] in Stool [facility] Fat.neutral [Presenc e] in Stool [facility] Folate [Moles/volume ] in Serum or Plasma [facility] Gastrointestinal pat hogens panel - Stool by ALEKSEY with probe detection [facility] Work Phone: Giardia lamblia antigen assay [facility] Globulin measurement [facility] Work Phone: Glucose [Mass/volume ] in Serum or Plasma [facility] Hematocrit [Volume F raction] of Blood [facility] Hemoglobin [Mass/vol ume] in Blood [facility] Hemoglobin A1c/Hemoglobin.total in Blood [facility] Hepatitis B virus sy rface Ag [Presence] in Serum [facility] Hepatitis C antibody measurement [facility] IgA [Mass/volume] in Serum or Plasma [facility] Work Phone: IgE [Units/volume] i n Serum or Plasma [facility] Work Phone: IgG [Mass/volume] in Serum or Plasma [facility] Work Phone: IgM [Mass/volume] in Serum or Plasma [facility] Work Phone: Areli-1 extractable nuc lear Ab [Units/volume] in Serum [facility] Work Phone: Lactoferrin [Presenc e] in Stool by Immunoassay [facility] Work Phone: Leukocytes [#/volume] in Blood [facility] End: 02-05-2025 Lutropin [Units/volume] in Serum or Plasma Luteinizing Hormone (LH) Lab STAT Female infertility Daily (including weekends) for 3 Occurrences starting 10/08/2024 until 02/05/2025 [facility] Work Phone: Comment on above: Daily (including weekends) for 3 Occurre nces starting 10/08/2024 until 02/05/2025 Mean corpuscular hem oglobin concentration determination [facility] Mean corpuscular hem oglobin determination [facility] Measurement of immun oglobulin A in serum specimen [facility] Work Phone: Measurement of renal function [facility] Neutrophil count [facility] Neutrophil cytoplasm ic Ab.classic [Units/volume] in Serum [facility] Work Phone: Neutrophil percent differential count [facility] Ova and parasites id entified in Unspecified specimen by Light microscopy [facility] Work Phone: Ova OR parasites identification [facility] P-ANCA measurement [facility] Work Phone: Path report.final Dx Spec [facility] Patient referral [facility] Work Phone: Platelets [#/volume] in Blood [facility] Potassium measurement [facility] Procedure [facility] Procedure [facility] Procedure [facility] Procedure [facility] End: 02-04-2025 Progesterone [Mass/volume] in Serum or Plasma Progesterone Lab STAT Female infertility Daily (including weekends) for 3 Occurrences starting 10/07/2024 until 02/04/2025 [facility] Service Area Work Phone: Comment on above: Daily (including weekends) for 3 Occurre nces starting 10/07/2024 until 02/04/2025 End: 02-05-2025 Progesterone [Mass/volume] in Serum or Plasma Progesterone Lab STAT Female infertility Daily (including weekends) for 3 Occurrences starting 10/08/2024 until 02/05/2025 [facility] Work Phone: Comment on above: Daily (including weekends) for 3 Occurre nces starting 10/08/2024 until 02/05/2025 Prolactin [Mass/volu me] in Serum or Plasma [facility] Protein electrophore sis panel - Serum or Plasma [facility] Work Phone: Protein measurement [facility] Work Phone: Protein measurement [facility] Protein measurement [facility] Red blood cell count [facility] Red cell distributio n width determination [facility] TERRENCE US Endometrial L ining Check [facility] Endometrial Lining Check Imaging Routine Female infertility 12/15/2024 7:02 AM EDT [facility] Service Area Work Phone: TERRENCE US Pelvis Limite d Follicles - Follicle Studies Performed [facility] Pelvis Limited Follicles - Follicle Studies Performed Imaging Routine Female infertility 09/27/2024 7:51 AM EST [facility] Service Area Work Phone: TERRENCE US Pelvis Limite d Follicles - Follicle Studies Performed [facility] Pelvis Limited Follicles - Follicle Studies Performed Imaging Routine Female infertility 10/09/2024 9:42 AM EST [facility] Work Phone: Rubella IgG measurement [facility] [id number]-[id number] extractable n uclear Ab [Units/volume] in Serum by Immunoassay [facility] Work Phone: Serologic test for syphilis [facility] Serum chloride measurement [facility] Serum protein electrophoresis [facility] Work Phone: Ferrell extractable nu clear Ab [Presence] in Serum [facility] Work Phone: Sodium measurement [facility] Testosterone Free [Mass/volume] in Serum or Plasma [facility] Thyroid stimulating hormone measurement [facility] Tissue transglutamin ase IgA Ab [Units/volume] in Serum [facility] Work Phone: Total protein measurement [facility] Urea nitrogen [Mass/ volume] in Serum or Plasma [facility] End: 01-22-2025 Urinalysis complete W Reflex Culture panel - Urine [facility] Work Phone: Comment on above: Once (Lab) for 1 Occurrences starting until 01/22/2025 US Pelvis [facility] US Pelvis transvaginal [facility] Immunizations Immunization Date Immunization Notes Care Provider Deedee ferguson 07-06-2023 influenza virus vaccine, unspecified formulation ERNA TROTTER MD [facility] Payers Date Payer Category Payer Self-pay [id number] 2023 [employer] [facility] [id number] 2022 Unknown [id number] 2017 Unknown [id number] 1994 Unknown [id number] 1994 Unknown [id number] 1994 Unknown [id number] 1994 Unknown [id number] 1994 Unknown [id number] 1994 Unknown [id number] 1994 Unknown [id number] 1994 Unknown [id number] 1994 Unknown [id number] 1994 Unknown [id number] 1994 Unknown [id number] 1994 Unknown [id number] 2.16.840.1.528269.3.579.2.1241 1995 Unknown [id number] 2.16.840.1.934882.3.579.2.1244 1994 Unknown [id number] 2.16.840.1.825204.3.579.2.124 1994 Unknown [id number] 2.16.840.1.178750.3.579.2.1244 1994 Unknown [id number] 2.16.840.1.027052.3.579.2.1244 1994 Unknown [id number] 2.16840.1.359123.3.579.2.1244 1994 Unknown [id number] 2.16.840.1.953254.3.579.2.1244 1994 Unknown [id number] 2.16.840.1.039529.3.579.2.1244 1994 Unknown [id number] 2.16.840.1.132174.3.579.2.1244 1994 Unknown [id number] 2.16.840.1.215111.3.579.2.1244 1994 Unknown [id number] 2.16.840.1.645038.3.579.2.1244 1994 Unknown [id number] 2.16.840.1.883858.3.579.2.1244 1994 Unknown [id number] 2.16.840.1.520805.3.579.2.1244 1994 Unknown [id number] 2.16.840.1.876800.3.579.2.1244 1994 Unknown [id number] 2.16.840.1.725557.3.579.2.1244 1994 Unknown [id number] 2.16.840.1.725565.3.579.2.1244 1994 Unknown [id number] 2.16.840.1.307692.3.579.2.1244 1994 Unknown [id number] 2.16840.1.447236.3.579.2.1244 1994 Unknown [id number] 2.16840.1.153914.3.579.2.1244 1994 Unknown [id number] 2.16840.1.736717.3.579.2.1244 1994 Unknown [id number] 2.840.1.647611.3.579.2.1244 1994 Unknown [id number] 2.840.1.933507.3.579.2.1244 1994 Unknown [id number] 2.840.1.665650.3.579.2.1244 1994 Unknown [id number] 2.840.1.912477.3.579.2.1244 1994 Unknown [id number] 2.16840.1.744967.3.579.2.1244 1994 Unknown [id number] 2.840.1.678545.3.579.2.1244 1994 Unknown [id number] 2.16840.1.515851.3.579.2.1244 1994 Unknown [id number] 2.16840.1.878642.3.579.2.1244 1994 Unknown [id number] 2.16840.1.290296.3.579.2.1244 1994 Unknown [id number] 2.16840.1.278575.3.579.2.1245 1994 Unknown [id number] 2.840.1.779996.3.579.2.1245 1994 Unknown [id number] 2.840.1.273438.3.579.2.1245 1994 Unknown [id number] 2.840.1.602372.3.579.2.627 1994 Unknown [id number] 2.840.1.595571.3.579.2.479 1994 Unknown [id number] 2.840.1.723062.3.579.2.479 1994 Unknown [id number] 2.0.1.646241.3.579.2.479 1994 Unknown [id number] 20.1.538337.3.579.2.47 1994 Unknown [id number] 2.840.1.712793.3.579.2.479 1994 Unknown [id number] 2.840.1.650641.3.579.2.479 [facility] ([facility] others) [id number] Unknown R PARTH [id number] Unknown [id number] Unknown UMR PARTH [id number] Unknown [id number] 2.840.1.698619.3.579.2.462 Unknown [id number] 20.1.347894.3.579.2.462 Unknown [id number] 2.16.840.1.058191.3.579.2.462 Unknown [id number] 2.16.840.1.720730.3.579.2.462 Unknown [id number] 2.16.840.1.561148.3.579.2.462 Unknown [id number] 2.16.840.1.925225.3.579.2.462 Unknown [id number] 2..840.1.542241.3.579.2.462 Unknown [id number] 2..840.1.207033.3.579.2.462 Unknown [id number] 2.840.1.008208.3.579.2.462 Unknown [id number] 2.840.1.823512.3.579.2.462 Unknown [id number] 2.840.1.233309.3.579.2.462 Unknown [id number] 2.840.1.330895.3.579.2.462 Unknown [id number] 2.840.1.045621.3.579.2.462 Unknown [id number] 2.840.1.142721.3.579.2.462 Unknown [id number] 2.840.1.361072.3.579.2.462 Unknown [id number] .840.1.182932.3.579.2.462 Unknown [id number] 2.840.1.246355.3.579.2.462 Unknown [id number] 2.840.1.846628.3.579.2.462 Unknown [id number] 2..840.1.049115.3.579.2.462 Unknown [id number] 2.16.840.1.405265.3.579.2.462 Unknown [id number] 2.840.1.462447.3.579.2.462 Unknown [id number] 2.16.840.1.900453.3.579.2.462 Unknown [id number] 2.16.840.1.837582.3.579.2.462 Social History Date Type Detail Facility Tobacco smoking status OHIS Unknown if ever smoked [facility] Work Phone: Start: 1995 Sex Assigned At Female [facility] Start: 08-03-2023 End: 12-09-2023 Tobacco smoking status OHIS Tobacco smoking consumption unknown [facility] Start: 1995 Sex Assigned At Not on file [facility] Start: 01-25-2024 End: 12-11-2024 Gender identity Not on file [facility] Start: 04-20-2023 End: 05-22-2025 Tobacco smoking status Never smoked tobacco (finding) [facility] Start: 01-25-2024 Tobacco use and exposure Smokeless tobacco non-user [facility] Work Phone: Start: 01-25-2024 End: 01-09-2025 Alcoholic beverage intake Ex-drinker (finding) [facility] Work Phone: Start: 01-25-2024 End: 12-11-2024 History of Social function [facility] Work Phone: Start: 09-30-2023 Gender identity Identifies as female gender (finding) [facility] Work Phone: Start: 09-30-2023 Sexual orientation Heterosexual (fin ding) [facility] Work Phone: Start: 01-15-2024 End: 01-25-2024 Exposure to SARS-CoV-2 (event) Unable to assess [facility] Start: 07-04-2024 End: 01-25-2025 Exposure to SARS-CoV-2 (event) Not sure [facility] NEGATED: Highlighted rowStart: NINF History of tobacco use Passive smoker [facility] Work Phone: Medical Equipment Procedure Code Equipment Code Equipment Origin al Text Equipment Identifier Dates [id number], [id number] Star t: 08-18-2024 End: 11-22-2024 Goals Date Patient Goal Desired Activity /State Functional Status Date Assessment Result Facility 01-22-2025 [place] - 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 Mental Status Date Assessment Result Facility 10-01-2023 Cognitive function Level Of Cons ciousness Follows Commands;Drowsy [facility] Work Phone: 10-01-2023 Cognitive function Voice/Name [facility] Work Phone: 08-27-2023 Mental Status Oriented x 4 [facility] 08-27-2023 Mental Status [facility] Clinical Notes 04-05-2023 to 05-21-2025 Note Date & Type Note Facility 05-21-2025 Progress note [facility] 05-21-2025 Progress note Note Date/Time May 21, 2025 3:38pm [facility] [address] [place] [address] OFFICE VISIT Date of Service: 05/21/25 MR#: [id number] Acct: [id number] Name: MARIXA AMOS Rep #: [id number] : 1995 Provider: DERRICK Sarabia Age/Sex: 29/F Location: [facility] Status: Signed Intake Vital Signs 03/09/25 [...] FU Chronic Gerd Chief Complaint: UC flare 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: No Accompanied by: Self Is patient [...] Medical History (Updated 05/22/25 @ 14:56 by Marcia Sarabia NP-C) Obesity (BMI 30.0-34.9) Other obesity Rectal bleeding [...] 3-4 times per week duration: 45-60 minutes/day cathy/islam: None seatbelt use: always do you feel safe at home: Yes 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 With no white blood cells in her stool assess likely to be infection or inflammation in her colon. But we will have to wait on the fecal calprotectin. Please make sure it was ordered. Thank you On 05/16/25 @ 12:30 FriendDom[employer] Wrote To MARIXA AMOS The stool calprotectin [...] limits exposure. While?budesonide?may be considered safer for hldd-rv-dwgsmiyz flares with fewer side effects, itis less [...] which limits exposure. While?budesonide?may beconsidered safer for vnhz-az-dpqhrste flares with fewer side effects, it is [...] constipation - she is also following with M - Dr. Carbajal at [facility] - reports Dr. 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 06/21/25 Referrals Gastroenterology D64.9 - Anemia, unspecified, K51.50 - Left sided colitis without complications Plan 29-year-old female with a history of ulcerative colitis diagnosed in 2015; currently 24 weeks following IVF implantation on 12/26/2024. She transition to [facility] in March 2022 after discontinuing Humira. She [...] She was seen at [facility] in [place] on 05/10/2025. I reviewed with Dr. Weaver and we have discussed referral to IBD specialist. She has already established with [facility] in [place] and wishes to continue her IBD care [...] Avalos. Patient Instructions: Follow-up with Dr. Avalos [phone]. Ustekinumab level 06/21/2025. Coding Level of Care Code Off vis,est,level 4 Diagnoses Anemia D64.9 Ulcerative colitis, left sided K51.50 Clinical Quality Measures Smoking Screening Smoking Status: Never smoker 05/23/25 1412 <Electronically signed by Marcia MEZA> Date _ Marcia MEZA Cosigner Signature: Date (if applicable) CC: ~ [facility] Work Phone: 1(299) 781-257909-12-2025 [facility] [address], [address] [place] [address] OFFICE VISIT Date of Service: 05/11/25 MR#: [id number] Acct: [id number] Name: MARIXA AMOS Rep #: [id number] : 1995 Provider: STEFANIE Lo Age/Sex: 29/F [place] [facility] Status: Signed Intake Vital Signs 05/01/25 14:59 05/11/25 13:52 Height 5 ft 3 in 5 ft 3 in Weight: 201 lb 6 oz BMI 35.6 BP 130/86 H Intake Visit Reasons: FHT check, spotting Chief Complaint: FHT Check, Spotting 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: No Is patient in pain?: No [...] mg-folate no.1 1 mg-dha 300 mg capsule (PNV-Portage) famotidine 40 mg tablet 40 mg PO BID PRN 05/11/25 H istory mesalamine 1,000 mg rectal 1,000 mg GA QHS 05/11/25 History suppository (Canasa) prednisone 10 [...] 3-4 times per week duration: 45-60 minutes/day cathy/islam: None seatbelt use: always do you feel safe at home: Yes 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 Date Name GA/Weeks Outcome Route Bth Weight Gen Labor Lgth Anesthesia Del Locatn Provider FOB Unknown 07/2023-Keon 20 still Male Delivery Date: Last Updated [...] and needs to get MFM cosult. took [facility] wednesday. 05/11/25 -?-?-?-?-?-?-?-?-?-?-?-?- 22w 1d 201 lb 6 oz (+16 lb 6 oz) 130/86 Negative -?-?-?--?-?-?-?-?-?-?-?-?- Negative 147 22 -?-?-?-?-?-?-?-?-?-?-?-?- KW- work in for vaginal bleeding/no cramping. +fm. Had UC flair and was trying to get in to see friend. Office never called back per pt so she found new provider in [place] and wasplaced on other medications. Also saw [...] and Symptoms of Preeclampsia, Feeding No , [place] Education and Family Medical Leave or Disability [...] GA appropriate handout given. 05/11/25 1414 s STEFANIE> Date _ Iesha Wally STEFANIE Cosigner Signature: Date (if applicable) CC: ~ [facility]09-12-2025 Progress note Author Iesha Lo [facility] Note Date/Time May 11, 2025 2:14pm [facility] [address], [address] [place] [address] OFFICE VISIT Date of Service: 05/11/25 MR#: [id number] Acct: [id number] Name: MARIXA AMOS Rep #: [id number] : 1995 Provider: STEFANIE Lo Age/Sex: 29/F [place] [facility] Status: Signed Intake Vital Signs 05/01/25 14:59 05/11/25 13:52 Height 5 ft 3 in 5 ft 3 in Weight: 201 lb 6 oz BMI 35.6 BP 130/86 H Intake Visit Reasons: FHT check, spotting Chief Complaint: FHT Check, Spotting 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: No Is patient in pain?: No [...] mg-folate no.1 1 mg-dha 300 mg capsule (PNV-Portage) famotidine 40 mg tablet 40 mg PO BID PRN 05/11/25 H istory mesalamine 1,000 mg rectal 1,000 mg GA QHS 05/11/25 History suppository (Canasa) prednisone 10 [...] 3-4 times per week duration: 45-60 minutes/day cathy/islam: None seatbelt use: always do you feel safe at home: Yes 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 Date Name GA/Weeks Outcome Route Bth Weight Infant Gen Labor Lgth Anesthesia Del Locatn Provider FOB Unknown 07/2023-Keon 20 still Male Delivery Date: Last Updated [...] -?-?-?-?-?-?-?-?-?-?-?-?- 165 -?-?-?-?-?-?-?-?-?-?-?-?- JV- heart beat rosa purvis today for her reassurance. she is getting [...] and needs [facility] 05/[facility]/25 -?-?-?-?-?-?-?-?-?-?-?-?- 22w 1d 201 lb 6 oz (+16 lb 6 oz) 130/86 Negative -?-?-?--?-?-?-?-?-?-?-?-?- Negative 147 22 -?-?-?-?-?-?-?-?-?-?-?-?- KW- work in for vaginal bleeding/no cramping. +fm. Had UC flair and was trying to get in to see friend. Office never called back per pt so she found new provider in [place] and was placed on other medications. Also [...] Acute Comment: PRR , GIL 09/13/25, PC Keon (jul- week demise) Romel (8) : Status: [...] this visit. GA appropriate handout given. 05/11/25 4419 <Electronically signed by Iesha das CNM> Date _ Iesha Koo Signature: Date (if applicable) CC: ~ [facility] Work Phone: 1(212) 842-487409-02-2025 [facility] [address] [place] [address], [address] [place] [address] OFFICE VISIT Date of Service: 05/01/25 MR#: [id number] Acct: [id number] Name: MARIXA AMOS Rep #: [id number] : 1995 Provider: Dr. 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 Date Name GA/Weeks Outcome Route Bth Weight Gen Labor Lgth Anesthesia Del Locatn Provider FOB Unknown 07/2023-Keon 20 still Male Delivery Date: Last Updated [...] and needs to get MFM cosult. took [facility] wednesday. ACOG First Trimester First Trimester: [...] Comment: Pt reports dx, pt of on [facility]. needs MFM consult. (2) resulting from in [...] Cosigner Signature: Date (if applicable) CC: ~ [facility]09-02-2025 Progress note Author Carmen Lugo [facility] Note Date/Time May 01, 2025 3:19pm [facility] [address] [place] [address], [address] [place] [address] OFFICE VISIT Date of Service: 05/01/25 MR#: [id number] Acct: [id number] Name: MARIXA AMOS Rep #: [id number] : 1995 Provider: Dr. 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 Date Name GA/Weeks Outcome Route Bth Weight Infant Gen Labor Lgth Anesthesia Del Locatn Provider FOB Unknown 07/2023-Keon 20 still Male Delivery Date: Last Updated [...] and needs to get MFM cosult. took [facility] wednesday. ACOG First Trimester First Trimester: [...] Pt reports dx, pt of . on [facility]. needs MFM consult. (2) resulting from in [...] Koo Signature: Date (if applicable) CC: ~ [facility] Work Phone: 1(883) 624-979106-27-2025 [facility] [address] [place] [address], [address] [place] [address] OFFICE VISIT Date of Service: 02/23/25 MR#: [id number] Acct: [id number] Name: MARIXA AMOS Rep #: [id number] : 1995 Provider: Dr. 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 Date Name GA/Weeks Outcome Route Bth Weight Infant Gen Labor Lgth Anesthesia Del Locatn Provider FOB Unknown 07/2023-Keon 19 still Male Delivery Date: Last Updated [...] Status: Acute Comment: , GIL 09/13/25, PC Keon (jul- week demise) Romel (9) : Status: [...] Rowley Signature: Date (if applicable) CC: ~ [facility]06-10-2025 [facility] [address] [place] [address], [address] [place] [address] OFFICE VISIT Date of Service: 02/06/25 MR#: [id number] Acct: [id number] Name: MARIXA AMOS Rep #: [id number] : 1995 Provider: STEFANIE Lo Age/Sex: 29/F Location: [facility] Status: Signed Intake Vital Signs 07/12/24 08:32 02/02/25 15:25 02/06/25 08:17 Height 5 ft 3 in 5 ft 3 in 5 ft 3 in Weight: 185 lb 8 oz BMI 32.8 BP 118/70 Intake Visit Reasons: *EST* NOB IVF 12/26, GIL 09/13/25 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 Date Name GA/Weeks Outcome Route Bth Weight Infant Gen Labor Lgth Anesthesia Del Locatn Provider FOB Unknown 07/2023-Keon 20 still Male Delivery Date: Last Updated [...] Pulmonary (e.g.,TB,Asthma), Seasonal allergies, Drug/latex allergies/reactions, Breast, Under Trimmer surgery, Anesthetic complications, History of abnormal pap, Uterine anomaly/samsno and Anti-retroviral treatment ACOG First Trimester First [...] and Symptoms of Preeclampsia, Feeding Yes , [place] Education and Family Medical Leave or Disability [...] 02/06/25 0850 s CNM> Date _ Iesha Najeraigner Signature: Date (if applicable) CC: ~ [facility]06-06-2025 Evaluation note* Diagnosis Onset Date Resolution Status [...] maternal blood transfusion, currently acute May 01 2:53pm Obesity affecting acute May 01, 2025 2:53pm acute May 01, 2025 2:53pm resulting from in vitro fertilization acute April 2:53pm Prior with demise acute May 01 2:53pm Subchorionic hematoma in first trimester acute [...] left sided acute May 21, 2025 2:37pm [facility] Work Phone: 1(363) 895-475606-06-2025 Evaluation note* Diagnosis Onset Date Resolution Status [...] 06 12:46pm resulting from in vitro fertilization April 06, 2025 12:46pm Prior with demise [...] 2025 2:53pm resulting from in vitro fertilization april 2:53pm Prior with demise acute May 01, [...] June 01, 2025 2:38pm acute June 01, 2 025 2:38pm resulting from in vitro fertilization acute June 01, 2025 2:38pm Prior with demise acute June 01 2:38pm Subchorionic hematoma in first trimester acute June 01 2:38pm Supervision of high-risk acute June 01 2:38pm Ulcerative colitis, left sided acute June 01 2:38pm Ulcerative colitis chronic Octobe r 2024 2:38pm [facility] Work Phone: 1(622) 486-260606-06-2025 [facility] [address] [place] [address], [address] [place] [address] OFFICE VISIT Date of Service: 02/02/25 MR#: [id number] Acct: [id number] Name: MARIXA AOMS Rep #: [id number] : 1995 Provider: STEFANIE Allen Age/Sex: 29/F [place] [facility] Status: Signed Intake Vital Signs 01/25/25 14:45 02/02/25 15:25 Height 5 ft 3 in 5 ft 3 in Weight: 184 lb 8 oz 186 lb 4 oz BMI 32.6 33.0 BP 128/62 H 143/86 H Blood Pressure Location Rt brachial Position Sitting Intake Visit Reasons: fu early spotting per 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: No Is patient in pain?: No [...] mg-folate no.1 1 mg-dha 300 mg capsule (PNV-Portage) prednisone 10 mg tablet 10 mg PO QDAY 01/26/2502/02 History progesterone oil 75 mg IM QHS 01/26/25 History Post menopausal: No Patient : Yes : No [facility] Medical History Obesity (BMI 30.0-34.9) Other obesity [...] 3-4 times per week duration: 45-60 minutes/day cathy/islam: None seatbelt use: always do you feel safe at home: Yes additional social history: -Romel- Workers Compensation Claims Specialist HPI fu early spotting per Details: MARIXA [...] 1609 ns CNM> Date _ Mary Beth Allen CNM Cosigner Signature: Date (if applicable) CC: ~ [id number] Progress note Author Mary Beth Allen [facility] Note Date/Time February 02, 2025 4:09p [facility] [address], [address] [place] [address] OFFICE VISIT Date of Service: 02/02/25 MR#: [id number] Acct: [id number] Name: MARIXA AMOS Rep #: [id number] : 1995 Provider: STEFANIE Allen Age/Sex: 29/F [place] [facility] Status: Signed Intake Vital Signs 01/25/25 14:45 02/02/25 15:25 Height 5 ft 3 in 5 ft 3 in Weight: 184 lb 8 oz 186 lb 4 oz BMI 32.6 33.0 BP 128/62 H 143/86 H Blood Pressure Location Rt brachial Position Sitting Intake Visit Reasons: fu early spotting per 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: No Is patient in pain?: No [...] mg-folate no.1 1 mg-dha 300 mg capsule (PNV-Portage) prednisone 10 mg tablet 10 mg PO QDAY 01/26/2502/02 History progesterone oil 75 mg IM QHS 01/26/25 History Post menopausal: No Patient : Yes : No [facility] Medical History Obesity (BMI 30.0-34.9) Other obesity [...] 3-4 times per week duration: 45-60 minutes/day cathy/islam: None seatbelt use: always do you feel safe at home: Yes additional social history: -Romel- Workers Compensation Claims Specialist HPI fu early spotting per Details: MARIXA [...] sthesia Del Locatn Provider FOB Unknown 07/2023 Delivery [...] Cosigner Signature: Date (if applicable) CC: ~ [facility] Work Phone: 1(149) 630-695405-30-2025 Evaluation note* Diagnosis Onset Date Resolution Status [...] 01, 2 025 2:53pm Ulcerative colitis chronic mary 2024 2:53pm Crohn's disease acute May 11, 2025 1:47pm History of anemia acute Sept er 2024 1:47pm History of maternal blood [...] 1:47pm Ulcerative colitis chronic Septem 2024 1:47pm [facility] Work Phone: [phone]) [phone] History of Present illness Narrative* Katelyn Benitez, JUDY-AERONAUTICS TEACHER - 01/25/2025 2:00 PM EDT Visit Type: [...] take Estrace, prednisone, & LENI is on 6-24-2025. Stop ASA & Metformin @ 12 wks. Discussed with patient any concerns and discussed establishing care with an OB. Will see [facility] [place], [place] on 01-26-2025. Will provide recommendations if [...] CNP 01/25/25 2:50 PM [facility] Work Phone: [phone]) [phone] Physician Emergency department Note* ISAURA Daniel - [...] vomiting. History provided by: Patient and spouse gun fertilizer used: No Patient History Medical History[1] Surgical [...] ordered and independent interpretation performed. Details: See [facility] Procedure Procedures [1] Past Medical History: [...] Drug use: Never ISAURA Daniel 01/22/25 1326 [facility] Work Phone: [phone]) 841-274205-26-2025 Emergency department Note* ISAURA Daniel - 01/22/2025 [...] vomiting. History provided by: Patient and spouse gun fertilizer used: No Patient History Medical History[1] Surgical [...] of Data Reviewed Labs: ordered. Details: See [facility] Radiology: ordered and independent interpretation performed. Details: See [facility] Procedure Procedures [1] Past Medical History: [...] Alcohol use: Not Currently Drug use: Never Zane Pryor, JUDY-AERONAUTICS TEACHER 01/22/25 1326 * Candi Kurtz RN - 01/22/2025 11:13 AM EDT Patient to ED for vaginal discharge. Patient reports being 6 weeks and noticed brown odorless discharge on Wednesday. Patient also reporting lower back pain. Patient denies any urinary issues at this time. documented in this encounterAC[facility] Work Phone: [phone] Emergency department Triage note* Candi Kurtz RN - 01/22/2025 11:13 AM EDT Patient to ED for vaginal discharge. Patient reports being 6 weeks and noticed brown odorless discharge on Wednesday. Patient also reporting lower back pain. Patient denies any urinary issues at this time. [facility] Work Phone: [phone] Evaluation note* Diagnosis Onset Date Resolution Status Admit Date Chronic GERD chronic January 01 7:22am Ulcerative colitis chronic December 7:22am [facility] Work Phone: [phone]) [phone] Evaluation note* Diagnosis Onset Date Resolution Status Admit Date Chronic GERD chronic January 01 7:22am Ulcerative colitis chronic December h2024 7:22am Amenorrhea acute January 26, 2025 12:46pm Subchorionic hematoma in fir st trimester acute February 02, 2025 3 :00pm [facility] Work Phone: 1([phone]) [phone] Evaluation note* Diagnosis Onset Date Resolution Status [...] 8:12am Ulcerative colitis chronic January 282024 8:12am [facility] Work Phone: [phone]) 226-379305-05-2025 Evaluation note* Diagnosis Onset Date Resolution Status [...] 10:46am Ulcerative colitis chronic January 292024 10:46am [facility] Work Phone: [phone]) [phone] Evaluation note* Diagnosis Onset Date Resolution Status [...] 11:16am Ulcerative colitis chronic February 272024 11:16am [facility] Work Phone: [phone]) 428-598605-05-2025 Evaluation note* Diagnosis Onset Date Resolution Status [...] Ulcerative colitis chronic April 06, 2025 12:46pm [facility] Work Phone: [phone]) [phone] Evaluation note* Diagnosis Onset Date Resolution Status [...] acute May 01 2:53pm Ulcerative colitis chronic Septem 2024 2:53pm [facility] Work Phone: [phone] History of Present illness Narrative* Gavino Tristan [...] Preop diagnosis: Infertility Post op diagnosis: Same Eco Industrial Development Consultant: Dr. Holder Depth: 7 cm Curve: anterior [...] as documented in the fellow's note. Gavino Tirstan 12/26/24 11:35 AM documented in this encounterAC[facility] Work Phone: [phone] Hospital Discharge instructions* Discharge Instructions* Sarah Bansal RN - 12/26/2024 10:41 AM EDT Images from the original note were not included. [facility] [address] [place] [id number] Home Going Instructions after Embryo Transfer: After [...] in : Advil, Motrin, Ibuprofen, Aleve, Excedrin, Michelle-Barn[place], Sudafed, and Pepto-Bismol. Avoid aspirin unless you [...] SARAH BANSAL 10:41 AM documented in this encounterAC[facility] Work Phone: [phone]) 396-106804-23-2025 History of Present illness Narrative* Anabell Rogel MD - 12/20/2024 1:00 PM EDT Lg Amos is a 29 y.o. female who presents for the following: Wart (Right 3rd toe plantar wart-pt states was treated with ln2 at [facility]. ). Review of Systems: No other skin [...] Anabell Rogel MD 12/20/2024 [facility]: [phone]) 234-241004-18-2025 History of Present illness Narrative* Amy Cherry [...] - Amy Cherry RN documented [facility] this [facility] Work Phone: [phone] Evaluation + Plan note* Assessment & Plan Note - Denise Ordonez MD - 12/11/2024 2:30 PM EDTAssociated Problem(s): Polycystic ovarian disease She is following with gynecology. [facility] Work Phone: [phone] Evaluation + Plan note* Assessment & Plan Note - Denise Ordonez MD - 12/11/2024 2:30 PM EDTAssociated Problem(s): Crohn's disease of colon without complication (Multi) She is following with gastroenterology. [facility] Work Phone: [phone]) 171-970204-14-2025 History of Present illness Narrative* Denise Ordonez [...] is following with gastroenterology. [facility] Work Phone: [phone] Miscellaneous Notes* Assessment & Plan Note - Denise Ordonez MD - 12/11/2024 2:30 PM EDTAssociated Problem(s): Polycystic ovarian disease She is following with gynecology. * Assessment & Plan Note - Denise Ordonez MD - 12/11/2024 2:30 PM EDTAssociated Problem(s): Crohn's disease of colon without complication (Multi) She is following with gastroenterology. [facility] Work Phone: [phone] 430-905203-26-2025 Nurse Note* Michaelle López RN - 11/22/2024 11:20 AM EDT Patient discharged to home in stable condition via wheelchair to RIDE HOME: Partner's car. Discharge instructions given and concerns addressed. [facility] Work Phone: [phone] Nurse Note* Michaelle López RN - 11/22/2024 11:20 AM EDT Patient discharged to home in stable condition via wheelchair to RIDE HOME: Partner's car. Discharge instructions given and concerns addressed. [facility] in this [facility] Work Phone: [phone] History of Present illness Narrative* Henrietta Herndon MD - 11/22/2024 10:00 AM EDTAssociated Order(s): Egg Retrieval Pre-Procedure Diagnose(s): Encounter for assisted reproductive fertility cycle Post-Procedure Diagnose(s): Encounter for assisted reproductive fertility cycle Patient ID: Marixa Amos is a 29 y.o. female. Egg Retrieval Date/Time: 11/22/2024 10:15 AM Performed by: Henrietta Herndon MD Authorized by: Katelyn Benitez [facility] Consent: Consent obtained: Verbal and written [...] diagnosis: Female infertility Post op diagnosis: Same [employer] Industrial Development Consultant: Leslie IV Fluids: 700 cc EBL: 5 cc UOP: Not recorded Specimen: Oocytes Complications: None Number of Oocytes right ovary: 14 Ovarian acc ss (right): Easy Number of Oocytes left ovary: 9 Ovarian access (left): Easy Endometrial thickness: TL Needle type: Single Additional notes: I was present and supervised the entire procedure. Henrietta Herndon 11/22/24 10:16 AM documented in this encounterAC[facility] Work Phone: [phone] Hospital Discharge instructions* Discharge Instructions* Sarah Bansal RN - 11/22/2024 8:38 AM EDT Images from the original note were not included. [facility] [address] [place] [address] Home Going Instructions after Egg Retrieval: Activity: [...] 2 weeks following your oocyte retrieval. Call [phone] to speak with a Physician or Nurse if you have any concerns. SARAH BANSAL 8:38 AM [facility] [address]. [place], [place] IVF LAB EMBRYO UPDATE PROTOCOL The [...] biopsied and frozen. SARAH BANSAL 8:38 AM [facility] [address] [place] [address] Frozen Embryo Transfer Instructions After your egg retrieval, follow up with your IVF nurse within 3-4 days Wednesday- Wednesday regarding theplan for your frozen embryo transfer (FET) cycle. Your IVF nurse will order and review with you themedications you will be using for the cycle. You will be sent an email from [employer] to fill out your Frozen Embryo Treatment [...] BANSAL RN 8:38 AM documented in this [facility] Work Phone: [phone] 527-833903-24-2025 History of Present illness Narrative* Amy Cherry [...] ask you to either come here to [facility] or a [facility] lab attached to a [facility]. If you go to a standing lab we cannot guarantee we would get your results in a timely manner! Please see trigger shot and retrieval day instructions below! Your retrieval will fall on Wednesday 11/22 at 10:00 AM but please arrive 1 hr early, getting here at 9:00 AM! Patient to go to [facility] tomorrow for post trigger labs and yearly labs/STDs. Patient aware to hold Metformin will also hold Omeprazole (only takes as needed) starting tomorrow evening. Lab reqs to be printed and placed at commercial front load driver. 11/20/24 at 2:19 PM - Amy Cherry RN documented in this encounterAC[facility] Work Phone: [phone] 233-875803-22-2025 History of Present illness Narrative* Imelda Cali [...] Cali 11/18/2024 10:08 AM documented in this encounterAC[facility] Work Phone: [phone] History of Present illness Narrative* Mikhail Ascencio [...] continued monitoring. Patient agreeable. [facility] Detailed MyChart sent as well. 11/16/24 at 1:54 PM - Mikhail Ascencio RN documented in this encounterAC[facility] Work Phone: [phone] History of Present illness Narrative* Amy Cherry [...] . Patient transferred to commercial front load driver. 11/14/24 at 1:36 PM - Amy Cherry RN documented in this encounterAC[facility] Work Phone: [phone] History of Present illness Narrative* Amy Cherry [...] 11/07/24 PGT-A/M? No PGT order scanned into [employer], confirmed by: N/A on N/A Plan to [...] of vials confirmed: 2 on 11/08/24 at [facility] Component Latest Ref Rng 11/08/2024 WBC [...] patient. Patient transferred to commercial front load driver to schedule for Wednesday. 11/08/24 at 3:18 PM - Amy Cherry RN [facility]Un[facility] Work Phone: [phone] Nurse Note* Pao Beard RN - 10/11/2024 10:55 AM EST Patient discharged to home in stable condition via wheelchair to RIDE HOME: Partner's car. VSS at time of discharge. Discharge instructions given and concerns addressed. Pao Beard RN 10/11/24 11:13 AM [facility] Work Phone: [phone] Nurse Note* Pao Beard RN - 10/11/2024 10:55 AM EST Patient discharged to home in stable condition via wheelchair to RIDE HOME: Partner's car. VSS at time of discharge. Discharge instructions given and concerns addressed. Pao Beard RN 10/11/24 11:13 AM [facility] this [facility] Work Phone: [phone] Nurse Note* Pao Beard RN - 10/11/2024 10:55 AM EST Patient discharged to home in stable condition via wheelchair to RIDE HOME: Partner's car. VSS at time of discharge. Discharge instructions given and concerns addressed. Pao Beard RN 10/11/24 11:13 AM [facility] this [facility] Work Phone: [phone] History of Present illness Narrative* Henrietta Herndon MD - 10/11/2024 9:15 AM ESTAssociated Order(s): Egg Retrieval Pre-Procedure Diagnose(s): Encounter for assisted reproductive fertility cycle Post-Procedure Diagnose(s): Encounter for assisted reproductive fertility cycle Patient ID: Marixa Amos is a 29 y.o. female. Egg Retrieval Date/Time: 10/11/2024 9:41 AM Performed by: Henrietta Herndon MD Authorized by: Katelyn Benitez [facility] Consent: Consent obtained: Verbal and written [...] diagnosis: Female infertility Post op diagnosis: Same [employer] Consultant: Leslie IV Fluids: 300 cc EBL: 5 cc UOP: Not recorded Specimen: Oocytes Complications: None Number of Oocytes right ovary: 16 Ovarian access (right): Easy Number of Oocytes left ovary: 9 Ovarian access (left): Easy Endometrial thickness: Tl Needle type: Single Additional notes: I was present and supervised the entire procedure. Henrietta Herndon 10/11/24 9:42 AM documented in this [facility] Work Phone: [phone] History of Present illness Narrative* Henrietta Herndon [...] diagnosis: Female infertility Post op diagnosis: Same [employer] Consultant: Leslie IV Fluids: 300 cc EBL: 5 cc UOP: Not recorded Specimen: Oocytes Complications: None Number of Oocytes right ovary: 16 Ovarian access (right): Easy Number of Oocytes left ovary: 9 Ovarian access (left): Easy Endometrial thickness: Tl Needle type: Single Additional notes: I was present and supervised the entire procedure. Henrietta Herndon 10/11/24 9:42 AM [facility] in this [facility] Work Phone: [phone] Miscellaneous Notes* Addendum Note - Pao Beard RN - 10/11/2024 9:15 AM ESTEncounter addended by: Pao Beard RN on: 10/11/2024 2:38 PM Actions taken: MAR administration accepted documented in this encounterAC[facility] Work Phone: [phone] Note* Addendum Note - Pao Beard RN - 10/11/2024 9:15 AM Jeff addended by: Pao Beard RN on: 10/11/2024 2:38 PM Actions taken: MAR administration accepted [facility] Work Phone: [phone]) 605-234402-12-2025 Hospital Discharge instructions* Discharge Instructions* Pao Beard RN - 10/11/2024 7:49 AM EST Images from the original note were not included. [facility] [address] [place] [address] Home Going Instructions after Egg Retrieval: Activity: [...] 2 weeks following your oocyte retrieval. Call [phone] to speak with a Physician or Nurse if you have any concerns. Pao Beard 9:11 AM [facility] [address] [place], [place] IVF LAB EMBRYO UPDATE PROTOCOL The [...] biopsied and frozen. Pao Beard 9:11 AM [facility] [address] [place] [address] Frozen Embryo Transfer Instructions After your egg retrieval, follow up with your IVF nurse within 3-4 days Wednesday- Wednesday regarding theplan for your frozen embryo transfer (FET) cycle. Your IVF nurse will order and review with you themedications you will be using for the cycle. You will be sent an email from [employer] to fill out your Frozen Embryo Treatment [...] Beard RN 9:10 AM documented in this [facility] Work Phone: [phone] History of Present illness Narrative* Mikhail Ascencio [...] get post trigger labs drawn tomorrow at [facility] lab. Patient to beginCabergoline 0.5mg x8days. Trigger and trigger day instructions given over the phone and sent via [employer] for reference. Patient agreeable. Will add patient to huddle tomorrow for review. 10/09/24 at 3:01 PM - Mikhail Ascencio RN documented in this [facility] Work Phone: [phone] History of Present illness Narrative* Lisbeth Spencer [...] Arrive 60 minutes prior to procedure at [facility]. Patient verbalizes understanding of plan and [...] Holder 10/08/24 1:16 PM documented in this encounterAC[facility] Work Phone: [phone] 299-226002-08-2025 History of Present illness Narrative* Lisbeth Spencer [...] and plan. Lisbeth Spencer 10/07/2024 8:53 AM [employer] message sent with plan. Lisbeth Spencer 10/07/24 12:05 PM documented in this encounterAC[facility] Work Phone: [phone] History of Present illness Narrative* Mikhail Ascencio [...] continued monitoring. Patient agreeable. [facility] 10/05/24 at 1:23 PM - Mikhail Ascencio RN documented in this encounterACMC [facility] System Work Phone: [phone] History of Present illness Narrative* Mikhail Ascencio [...] Ascencio 09/27/2024 9:11 AM documented in this encounterACMC [facility] Work Phone: [phone] History of Present illness Narrative* Mikhail Ascencio RN - 09/27/2024 8:15 AM EST MUKESH NOTE - IVF STIM BASELINE Patient presents for baseline ultrasound and/or labs. Treatment protocol: ANT FSH 150 and menopur 75 Trigger plan: HCG vs Lupron Lead in: OCP Start date for lead in: 09/10 Last estrace/OCP date: 09/26 PGT-A/M? Yes; Req Sent: Yes; PGT-M Test Ready: No ; Company: [employer] PGT order scanned into [employer], confirmed by: on 09/27 (scanned in to media tab on 07/18/24) Plan to freeze: embryos [employer] forms/out waiver complete: Yes Does patient have medications onhand? Yes Pharmacy: [facility] pass signed off: Yes CBC [...] continued monitoring. Patient agreeable. [facility] MyChart sent to patient with plan and tentative calendar for reference. 09/27/24 at 1:34 PM - Mikhail Ascencio RN documented in this [facility] Work Phone: [phone] History of Present illness Narrative* Hilary Holder [...] yes Risks discussed: Bleeding, infection and pain [place] protocol: Procedure explained and questions answered to [...] diagnosis: fertility testing Post op diagnosis: Same [employer] Consultant: Fellow Anesthesia: None IV: None EBL: 3 [...] well, no immediate complications documented in this [facility] Work Phone: [phone] History of Present illness Narrative* Imelda Pollard [...] See scanned record. Saline Infused Sonography: n/a FLAP CURER Pelvic Ultrasound: normal, see scanned record Partner SA: Normal- Romel Amos (scanned into Marixa's records) Did genetic screening in [place]- negative per patient. Treatment to date: Fertility [...] mouth 2 times a day before meals. 7-JBSJ-USJXZ ACID-OM3 ORAL Take 1 capsule by mouth [...] an insemination (IUI) this cycle. - Hieu [phone] - Kimberly [phone] Ovulation predictor kits test for LH hormone [...] Pollard 07/14/2024 1:48 PM documented in this [facility] Work Phone: [phone] History of Present illness Narrative* Sarah Espino, JUDY-AERONAUTICS TEACHER - 01/25/2024 11:15 AM EDT Virtual or [...] See scanned record. Saline Infused Sonography: n/a FLAP CURER Pelvic Ultrasound: normal, see scanned record Partner SA: Normal- Romel Amos (scanned into [facility] records) Did genetic screening in [place]- negative per patient. Treatment to date: Fertility [...] mouth 2 times a day before meals. 8-KAPS-LGNDP ACID-OM3 ORAL Take 1 capsule by mouth [...] an insemination (IUI) this cycle. - Hieu [phone] [facility] [phone] Ovulation predictor kits test for LH hormone [...] Espino 01/25/2024 11:20 AM documented in this encounterAC[facility] Work Phone: [phone]) [phone] NotePap Smear Specimen AdequacyApril 2023 3:45pmComment.Satisfactory for evaluation. Endocervical and/or squamous metaplasticcells (endocervical component)are present.[facility] A#[id number] Clinic Medina HospitalComment on above:Satisfactory for evaluation. Endocervical and/or squamous metaplasticcells (endocervical component)are present.10-01-2023 Procedure [facility] 10-01-2023 Procedure [facility]02-02-[facility]24 [facility] 08-27-2023 Hospital Discharge instructions Patient Education 08/27/2023 [...] what activities are safe for you. Take wgop-jpd-ctubenv and prescription medicines only as told by [...] 11/22/2001 Document Revised: 08/19/2018 Document Reviewed: 04/01/2018 [employer] Patient Education 2020 [employer]. 08/27/2023 13:15:43 Nausea and Vomiting, Adult Nausea [...] water added (diluted fruit juice). Eat bland, cqss-sx-jcxhxb foods in small amounts as you are able. These foods include bananas, applesauce, rice, lean meats, toast, and crackers. Avoid fluids that contain a lot of sugar or caffeine, such as energy drinks, sports drinks, and soda. Avoid alcohol. Avoid spicy or fatty foods. General instructions Take gudw-mhm-mbbynqd and prescription medicines only as told by your health care provider. Drink enough fluid to keep your urine pale yellow. Wash your hands often using soap and water. If soap and water are not available, use hand inspector firearms. Make sure that all people in your [...] eating and drinking to prevent dehydration. Take nfwh-hxr-hbqhnpl and prescription medicines only as told by [...] 08/16/2006 Document Revised: 12/08/2019 Document Reviewed: 01/24/2019 [employer] Patient Education 2020 [employer]. 08/27/2023 13:15:03 Endometrial Ablation, Care After Endometrial [...] are safe for you. General instructions Take nrfm-rca-njmwwsa and prescription medicines only as told by [...] 06/28/2018 Document Revised: 12/07/2019 Document Reviewed: 06/28/2018 [employer] Patient Education 2020 [employer]. 08/27/2023 11:52:28 8- Post Op FLAP CURER Minor Surgery What to Do After Your [...] as your pain allows. You may take btjs-tog-fnmjonbaius medication if you no longer need your prescribed pain medication. Qarw-ist-vytilfa pain medications are Tylenol (acetaminophen) or Advil (ibuprofen). Do not take Tylenol if you are still taking [place] or Percocet. They are the same type [...] Care 08/02/2023 10:09:45 With:ERNA TROTTER MD Address: [address] [place] [phone] [phone] When:Within 2 Week(s) [facility] 12-29-2023 Note Discharge Instructions Thank you for allowing [facility] to assist you with your healthcare needs. The following is importantdischarge information regarding your hospital visit. Your Care Team CATRACHITO MERCEDES MD Your Diagnosis Crohn's disease Family history of endometriosis Female infertility Postoperative pain What to do next Follow Up Appointments Follow Up with ERNA TROTTER MD When In 2 weeks Where: [facility] [address] [address] [phone] The Following Activity and Diet Have Been [...] Duration: 14 Days Refills: [id number] New acetaminophen-oxyCODONE (Percocet 5 mg-325 mg oral tablet) 1 tab(s) by mouth Every 4 hours as needed for for pain Postoperative pain Duration: 7 Days Pickup at [facility] #[id number] New ibuprofen (ibuprofen 800 mg oral tablet) 1 tab(s) by mouth Every 8 hours Duration: 14 Days Pickup at [facility] #[id number] New ondansetron (Zofran 4 mg oral tablet) 1 tab(s) by mouth Every 6 hours as needed for Nausea/Vomiting Duration: 5 Days [facility] [id number] Unchanged cholecalciferol (Vitamin D3) 25 Microgram by [...] Milliliter Subcutaneous Every 8 weeks Pharmacy Information [id number]: [address] [facility] [place] [phone] Please take this list to your next [...] what activities are safe for you. Take byxw-gsn-slmejre and prescription medicines only as told by [...] 11/22/2001 Document Revised: 08/19/2018 Document Reviewed: 04/01/2018 [employer] Patient Education 2020 [employer] Nausea and Vomiting, Adult Nausea is [...] water added (diluted fruit juice). Eat bland, ihnd-uv-ecdmyf foods in small amounts as you are able. These foods include bananas, applesauce, rice, lean meats, toast, and crackers. Avoid fluids that contain a lot of sugar or caffeine, such as energy drinks, sports drinks, and soda. Avoid alcohol. Avoid spicy or fatty foods. General instructions Take gzqc-lzp-eqyhrle and prescription medicines only as told by your health care provider. Drink enough fluid to keep your urine pale yellow. Wash your hands often using soap and water. If soap and water are not available, use hand inspector firearms. Make sure that all people in your [...] eating and drinking to prevent dehydration. Take ldst-kmr-imbaapn and prescription medicines only as told by [...] 08/16/2006 Document Revised: 12/08/2019 Document Reviewed: 01/24/2019 Pandabus Patient Education 2020 [employer]. Endometrial Ablation, Care After This sheet gives [...] are safe for you. General instructions Take vgpf-tcu-eliqpac and prescription medicines only as told by [...] 06/28/2018 Document Revised: 12/07/2019 Document Reviewed: 06/28/2018 [employer]us Patient Education 2020 [employer]. What to Do After Your Gynecology [...] as your pain allows. You may take hbhq-nrt-qaorjiixbzs medication if you no longer need your prescribed pain medication. Vnfk-ppt-bribujn pain medications are Tylenol (acetaminophen) or Advil (ibuprofen). Do not take Tylenol if you are still taking Junction or Percocet. They are the same type [...] to receive it can visit one of [facility] vaccine clinics. There are many vaccine clinic locations within the [facility]. For locations and available times, please visit https://gettheshot.coronavirus.[place].gov/. It is important to note that some COVID mobile vaccine clinics are held outdoors and may be canceled in rainy or stormy conditions. To learn more about pediatric vaccinations (ages 5-11), we invite you to visit the [facility] webpage. https://www.[facility].org/pages/4290-Phuuk-Meeqtubbugp-Fgspevdrcd-Gdlmh-Myn stions.htmlTo learn more about the COVID-19 vaccine, we invite you to visit the CDC website for a list of frequently asked questions.https://www.cdc.gov/coronavirus/2019-ncov/vaccines/faq.html [facility] Patient Portal Access Instructions: Stay connected with your healthcare team and access your personal medical information anytime with the [facility] Patient Portal. Please follow the directions below to create your [employer] account: 1.Access the email account you provided upon registration to the hospital/physician office.2.Look for an invitation email from [facility].3.Open the email and access the invitation link: AcceptInvitation to [facility].4.Fill in the required barnes to create your account. To access your account, visit [employer]hart. Click the blue button labeled Access Patient Portal and then log in with the username and password that you created in the steps above. You will be able to view your test results, lab results, a summary of your visits, upcoming appointments and more. There is also a convenient messaging option where you can send secure messages to your p GTIvider. In addition, you will have the ability to download any documents or summaries to your computer and/or send the information securely to a physician. Remember that your healthcare information is confidential, so carefully consider who you will allowto register on the [facility] Patient Portal for access to your information. You can also access the [facility] Patient Portal on the [facility] nancie. Simply click on Patient Portal and then log into your account. If you would like to receive a full copy of your medical records, please contact the [facility] Medical Records Department by calling [phone], Wednesday through Wednesday between 8 a.m. and [...] Call your local pharmacy or go to http://bit.Klocwork/8F3Rk6w to find one close to you.3.Make use of household items: Use cat litter or old coffee grounds to dispose medications if other options arenot available. Mix your drugs with these household products, seal them in an airtight container andthrow it into the garbage. Call [facility]: [phone] to be sure your drugs can be [...] Endometrial Ablation, Care After 8- Post Op FLAP CURER Minor Surgery Medication Leaflets My discharge plan and instructions have been reviewed and explained to me and OMI Maya HEATHER M understand my current condition and have read and understand these discharge instructions. I have received a written copy of the plan/instructions. If I have questions, I am aware that I should contact my doctor. Patient/Resident Program Specialist Signature: Date/Time: Relationship to Patient: Witness Name/Signature: Date/Time: [facility]12-29-2023 Note Date of Service 08/27/23 History [...] ERNA TROTTER MD on 08/27/2023 11:50 AM [facility]12-29-2023 Anesthesiology Consult note Patient: MARIXA BRAGA Age: 28 years Sex: Female : 1995 Associated Diagnoses: None Author: CHELLY BUSTAMANTE EGGS INSPECTOR-DISPATCH SPECIALIST Preoperative Information Time of last food [...] list: Medical Crohn disease / SNOMED CT 87088721 / Confirmed Wellness examination / SNOMED CT 136691199 / Confirmed Weight gain / SNOMED CT 15522378 / Confirmed, Active Problems (4) Crohn disease GERD (gastroesophageal reflux disease) Weight gain Wellness examination Histories Past Medical History: Resolved ([id number]): Onset on 07/18/2018 at 23 years. Resolved in 2018 at 23 years. ([id number]): Onset on 07/19/2017 at 22 years. Resolved in 2018 at 22 years. Family History: Anxiety Sister Hypertension Father Heart disease Father Alcoholism Father Depression Father Procedure history: Colonoscopy (842171940). 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: Self Current Home Treatments None Special Services [...] Resp Rate 20 br/min (AUG 27 10:13) DML993 mmHg (AUG 27 10:13) DBP81 mmHg (AUG 27 10:13) Measurements from flowsheet : Measurements 08/27/2023 10:13 EST Height 160 cm Admission Weight 75 kg [place] Body Weight 52.38 kg Admission Body Mass [...] Height 160 cm Admission Weight 75 kg [place] Body Weight 52.38 kg Admission Body Mass [...] Person #1 We May Share LAURA Amos [phone] Designated Person #1 Relationship Spouse Privacy Restrictions [...] Method Explanation, Printed materials Preferred Spoken Language Nauruan Preferred Written Language Nauruan Teaching Evaluation No further teaching needed Safety Brochure Information Reviewed Unable to complete [facility] Video Viewed No Information Given by [...] QC PRGUP Positive . Assessment and Plan Nauruan Society of Anesthesiologists (ASA) physical status classification: Class II. Anesthetic Preoperative Plan Premedication: intravenous. Anesthetic technique: General. Induction: intravenously. Maintenance airway: Oral endotracheal tube. Postoperative pain management: Per surgeon. Risks discussed: nausea, vomiting, sore throat. Informed consent: signed by patient. Digitally Signed by CHELLY BUSTAMANTE on 08/27/2023 11:44 AM [facility]08-11-2023 Telephone encounter Note* Telephone Encounter - Cher Calderon - 04/09/2023 11:53 AM EDT Name of caller: MARIXA Relation to patient: patient Contact phone number: [phone] Appointment scheduled with: LANDY BLAIR Appointment date & time: 05/04/23 @ 7:50 AM Reason for visit (are you having any symptoms) : Low blood pressure, unexpected weight gain Transportation issues/ concerns: NO Special accommodations? ( wheel chair, etc) : NO Current medications: STELARA Any refills need: NO Any chronic conditions the provider should be aware of: CHRON'S, 14 WEEKS [id number] Telephone encounter Note* Telephone Encounter - Cher Calderon - 04/09/2023 11:53 AM EDT In order to comply with the No Surprises Act, [place] Everywhere is providing you with the following attachments. Any Good Cathy Estimate that may be provided are based on the services you are scheduled toreceive. During your visit, there may be additional services required in order for the provider to complete your plan of care. DECLINED [facility], [id number] Miscellaneous Notes* Telephone Encounter - Cher Calderon - 04/09/2023 11:53 AM EDT In order to comply with the No Surprises Act, [facility] is providing you with the following attachments. Any Good Cathy Estimate that may be provided are based on the services you are scheduled toreceive. During your visit, there may be additional services required in order for the provider to complete your plan of care. DECLINED documented in this encounterSCleveland Clinic Mercy [id number] Miscellaneous Notes* Telephone Encounter - Cher Calderon - 04/09/2023 11:53 AM EDT Name of caller: MARIXA Relation to patient: patient Contact phone number: [phone] Appointment scheduled with: LANDY BLAIR Appointment date & time: 05/04/23 @ 7:50 AM Reason for visit (are you having any symptoms) : Low blood pressure, unexpected weight gain Transportation issues/ concerns: NO Special accommodations? ( wheel chair, etc) : NO Current medications: STELARA Any refills need: NO Any chronic conditions the provider should be aware of: CHRON'S, 14 WEEKS documented in this [facility]08-07-2023 Telephone encounter Note* Telephone Encounter - Cher Calderon - 04/05/2023 3:44 PM EDT PATIENT SUBMITTED ONLINE APPOINTMENT REQUEST FOR A PCP APPOINTMENT. SPOKE TO PATIENT AND GOT SOME INFORMATION BUT SHE HAD TO GET OFF THE LINE AND STATES SHE WILL C/B. OK TO SCHEDULE WITH ANY PROVIDERWHEN PATIENT CALLS BACK. FirstName : Marixa LastName : BRAGA Pronouns : PronounsOther : Email : [email or web address] Phone : [phone] Birthdate : 1995 12:00:00 AM BestTimeToCallBack : Afternoon AppointmentDate : Kirk PhysicianRequested : Symptoms : Weight gain, low blood pressure OptIn : False [facility] [id number] Miscellaneous Notes* Telephone Encounter - Cher Calderon - 04/05/2023 3:44 PM EDT PATIENT SUBMITTED ONLINE APPOINTMENT REQUEST FOR A PCP APPOINTMENT. SPOKE TO PATIENT AND GOT SOME INFORMATION BUT SHE HAD TO GET OFF THE LINE AND STATES SHE WILL C/B. OK TO SCHEDULE WITH ANY PROVIDERWHEN PATIENT CALLS BACK. FirstName : Marixa LastName : BRAGA Pronouns : PronounsOther : Email : [email or web address] Phone : [phone] Birthdate : 1995 12:00:00 AM BestTimeToCallBack : Afternoon AppointmentDate : Kirk PhysicianRequested : Symptoms : Weight gain, low blood pressure OptIn : False documented [facility] this [facility] No data available for this section [facility] Evaluation + Plan note Future Appointments Appointment Date:08/16/2023 10:45:00 AM Scheduled Provider:CATRACHITO MERCEDES MD Location:[facility] Appointment Type:PC OV Follow Up [facility] Evaluation note* Diagnosis Onset Date Resolution Status Ulcerative colitis acute Ulcerative colitis [facility] Work Phone: Evaluation note* Diagnosis Onset Date Resolution Status Ulcerative colitis acute [facility] Work Phone: Evaluation note* Diagnosis Onset Date Resolution Status Chronic GERD chronic Ulcerative colitis chronic [facility] Work Phone: Evaluation note* Diagnosis Onset Date Resolution Status Endometriosis acute Infertility [facility] Work Phone: Evaluation note* Diagnosis Female infertility- Primary Female infertility of unspecified origin Endometriosis Endometriosis, site unspecified documented in this encounter [facility] Work Phone: [phone] note* Diagnosis Fertility testing- Primary Encounter for preprocedural laboratory examination Female fertility problem [N97.9] documented in this encounter [facility] Work Phone: [phone] note* Diagnosis Endometritis- Primary Unspecified inflammatory disease of uterus Fertility testing documented in this encounter [facility] Work Phone: [phone] note* Diagnosis Endometritis- Primary Unspecified inflammatory disease of uterus Fertility testing documented in this encounter [facility] Work Phone: [phone] note* Diagnosis Female infertility Female infertility of unspecified origin documented in this encounter [facility] Work Phone: [phone] note* Diagnosis Female infertility Female infertility of unspecified origin documented in this encounter [facility] Work Phone: [phone] note* Diagnosis Female infertility Female infertility of unspecified origin documented in this encounter [facility] Work Phone: [phone] note* Diagnosis Encounter for assisted reproductive fertility cycle Encounter for assisted reproductive fertility procedure cycle documented in this encounter [facility] Work Phone: [phone] note* Diagnosis Encounter for assisted reproductive fertility cycle Encounter for assisted reproductive fertility procedure cycle documented in this encounter [facility] Work Phone: [phone] note* Diagnosis Female infertility Female infertility of unspecified origin documented in this encounter [facility] Work Phone: [phone] note* Diagnosis Female infertility Female infertility of unspecified origin documented in this encounter [facility] Work Phone: Evaluation note* Diagnosis Fertility testing- Primary Female infertility Female infertility of unspecified origin Screening for diabetes mellitus Encounter for Rh blood typing Encounter for blood typing Screening for STDs (sexually transmitted diseases) Screening examination for venereal disease Screening for thyroid disorder documented in this encounter [facility] Work Phone: [phone] note* Diagnosis Encounter for assisted reproductive fertility cycle Encounter for assisted reproductive fertility procedure cycle documented in this encounter [facility] Work Phone: [phone] note* Diagnosis Encounter for assisted reproductive fertility cycle Encounter for assisted reproductive fertility procedure cycle documented in this encounter [facility] Work Phone: [phone] note* Diagnosis Healthcare maintenance- Primary Hypovitaminosis D Unspecified vitamin D deficiency Polycystic ovarian disease Polycystic ovaries Crohn's disease of colon without complication (Multi) documented in this encounter [facility] Work Phone: [phone] note* Diagnosis Healthcare maintenance- Primary Hypovitaminosis D Unspecified vitamin D deficiency Polycystic ovarian disease Polycystic ovaries Crohn's disease of colon without complication (Multi) Female infertility Female infertility of unspecified origin documented in this encounter [facility] Work Phone: [phone] note* Diagnosis Healthcare maintenance- Primary Hypovitaminosis D Unspecified vitamin D deficiency Polycystic ovarian disease Polycystic ovaries Crohn's disease of colon without complication (Multi) Plantar wart- Primary Dermatologic problem documented in this encounter [facility] Work Phone: [phone] note* Diagnosis Healthcare maintenance- Primary Hypovitaminosis D Unspecified vitamin D deficiency Polycystic ovarian disease Polycystic ovaries Crohn's disease of colon without complication (Multi) Encounter for assisted reproductive fertility cycle Encounter for assisted reproductive fertility procedure cycle documented in this encounter [facility] Work Phone: [phone] note* Diagnosis Healthcare maintenance- Primary Hypovitaminosis D Unspecified vitamin D deficiency Polycystic ovarian disease Polycystic ovaries Crohn's disease of colon without complication (Multi) Encounter to determine viability of , single or unspecified fetus- Primary documented in this encounter [facility] Work Phone: [phone] note* Diagnosis Healthcare maintenance- Primary Hypovitaminosis D Unspecified vitamin D deficiency Polycystic ovarian disease Polycystic ovaries Crohn's disease of colon without complication (Multi) Vaginal discharge- Primary Leukorrhea, not specified as infective documented in this encounter [facility] Work Phone: Evaluation note* Diagnosis Healthcare maintenance- Primary Hypovitaminosis D Unspecified vitamin D deficiency Polycystic ovarian disease Polycystic ovaries Crohn's disease of colon without complication (Multi) Encounter to determine viability of , single or unspecified fetus- Primary documented in this encounter [facility] Work Phone: History and physical note Author Domo Weaver [facility] October 01, 2023 11:37am Note Date/Time October 01, 2023 1 1:37am [facility] Medical Records Department [address] [place] [address] History & Physical Exam 10/01/23 1137 MR#: [id number] Acct: [id number] Name: MARIXA BRAGA Rep #:[id number] : 1995 28 From: Domo Weaver DO PCP: CATRACHITO MERCEDES [place] [place] [address] History and Physical Date of Admission: 10/01/23 [...] not start azathioprine for one month. OV 7 possible change of therapy to Stelara. Start [...] or lesions noted Quality Reporting Tobacco Screening ([facility] 138) Smoking Status: Never smoker Assessment [...] some mucousy stools when she was in [place] but thatonly lasted for a couple days [...] CC: CATRACHITO MERCEDES; Domo Weaver DO~ Signed [facility] Work Phone: History of Present illness Narrative* Sarah Espino, EGGS INSPECTOR-AERONAUTICS TEACHER - 01/11/2025 2:00 PM EDT Visit Type: In Person reviewed, Authorization status not noted. OB Scan Ectopic risk factor: yes endometriosis PGTA/PGTM: no Blood type: B Method of Conception: Frozen Embryo transfer Day 5 gerbersmilli 4 AA Reviewed results from OB ultrasound [...] Espino 01/11/2025 1:31 PM [facility] Work Phone: Hospital Discharge instructions No data available for this section [facility] Progress note No data available for this section [facility] Progress note Author Iesha Lo [facility] Note Date/Time February 06, 2025 8:50 am [facility] [address], [address] [place] [address] OFFICE VISIT Date of Service: 02/06/25 MR#: [id number] Acct: [id number] Name: MARIXA AMOS Rep #: [id number] : 1995 Provider: STEFANIE Lo Age/Sex: 29/F [place] [facility] [place]: Signed Intake Vital Signs 07/12/24 08:32 02/02/25 15:25 02/06/25 08:17 Height 5 ft 3 in 5 ft 3 in 5 ft 3 in Weight: 185 lb 8 oz BMI 32.8 BP 118/70 Intake Visit Reasons: *EST* NOB IVF 12/26, GIL 09/13/25 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: No Is patient in pain?: No [...] mg-folate no.1 1 mg-dha 300 mg capsule (PNV-Portage) prednisone 10 mg tablet 10 mg PO QDAY 01/26/2502/06 History progesterone oil 75 mg IM QHS 01/26/25 History Last Menstrual Period: 10/19/24 Zika: Zika virus screening: Negative : Yes PFSH [facility] Medical History Obesity (BMI 30.0-34.9) Other obesity [...] 3-4 times per week duration: 45-60 minutes/day cathy/islam: None seatbelt use: always do you feel safe at home: Yes 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 Date Name GA/Weeks Outcome Route Bth Weight Gen Labor Lgth Anesthesia Del Locatn Provider FOB Unknown 07/2023-Keon 20 still Male Delivery Date: Last Updated by: Jacquie Durán demise, possible subchorionic hematoma HPI *EST* NOB IVF 4/29, GIL 09/13/25 Details: MARIXA AMOS is a [...] Pulmonary (e.g.,TB,Asthma), Seasonal allergies, Drug/latex allergies/reactions, Breast, Under Trimmer surgery, Anesthetic complications, History of abnormal pap, [...] Symptoms of Preeclampsia, Infant Feeding Yes , Education and Family Medical [...] Cosigner Signature: Date (if applicable) CC: ~ [facility] Work Phone: Progrmns note Author Marcia [facility] Note Date/Time February 23, 2025 11:4 3am [facility] [address] [place] [address], [address] [place] [address] OFFICE VISIT Date of Service: 02/23/25 MR#: [id number] Acct: [id number] Name: MARIXA AMOS Rep #: [id number] : 1995 Provider: Dr. 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 Date Name GA/Weeks Outcome Route Bth Weight Gen Labor Lgth Anesthesia Del Locatn Provider FOB Unknown 07/2023-Keon 20 still Male Delivery Date: Last Updated [...] -?-?-?-?-?-?-?-?-?-?-?-?- 165 -?-?-?-?-?-?-?-?-?-?-?-?- JV- heart beat rosa heck today for her reassurance. she is [...] Acute Comment: , GIL 09/13/25, DEBRA Kim (jul-20 week demise) Romel (9) : Status: [...] Cosigner Signature: Date (if applicable) CC: ~ [facility] Work Phone: Reason for referral (narrative)No reason for referral information availableC[facility] Work Phone: Reason for visit Narrative* Other Medical (Routine) - Authorized Specialty Diagnoses / Procedures Referred By Contandrea t Referred To Contact Reproductive Endocrinology and Infertility Diagnoses Fertility testing Procedures Hysteroscopy diagnostic Imelda Pollard MD [address] [place] [address] Phone: tel: fax: Referral ID Status Reason Start Date Expiration Date V isits Requested Visits Authorized [id number] Authorized 07/14/2024 07/14/2025 1 1 [facility] Work Phone: Reason for visit Narrative* Imaging (Routine) - Authorized Specialty Diagnoses / Procedures Referred By Contandrea t Referred To Contact Radiology Diagnoses Female infertility Procedures TERRENCE US Pelvis Limited Follicles - Follicle Studies Performed Alejandra Chávez MD [address] [place] [address] Phone: tel: fax: Referral ID Status Reason Start Date Expiration Date Visits Requested Visits Authorized [id number] Authorized Perform Procedure 4 08/17/2025 8 8 [facility] Work Phone: Reason for visit Narrative* Procedure (Routine) - Authorized Specialty Diagnoses / Procedures Referred By Contact Referred To Contact Reproductive Endocrinology and Infertility Diagnoses Encounter for assisted reproductive fertility cycle Procedures Egg Retrieval GA FOLLICLE PUNCTURE OOCYTE RETRIEVAL ANY METHOD CHG [...] ID FROM ASPIR OTH/THN SEMINAL Katelyn Benitez, EGGS INSPECTOR-AERONAUTICS TEACHER [address] [place] [address] Phone: tel:[phone] fax:[phone] Referral ID Status Reason Start Date Expiration Date V isits Requested Visits Authorized [id number] Authorized 09/12/2024 09/12/2025 1 1 [facility] Work Phone: Reason for visit Narrative* Imaging (Routine) - Authorized Specialty Diagnoses / Procedures Referred By Contac t Referred To Contact Radiology Diagnoses Female infertility Procedures TERRENCE US Pelvis Limited Follicles - Follicle Studies Performed Alejandra Chávez MD [address] [facility] Sobeida Dhaliwal [address] [address] Phone: tel: fax: Referral ID Status Reason Start Date Expiration Date Visits Requested Visits Authorized [id number] Authorized Perform Procedure 11/07/2024 11/07/2025 8 8 [facility] Work Phone: Recnnw for visit Narrative* Procedure (Routine) - Authorized Specialty Diagnoses / Procedures Referred By Contact Referred To Contact Reproductive Endocrinology and Infertility Diagnoses Encounter for assisted reproductive fertility cycle Procedures Egg Retrieval GA FOLLICLE PUNCTURE OOCYTE RETRIEVAL ANY METHOD CHG [...] ID FROM ASPIR OTH/THN SEMINAL Katelyn Benitez, EGGS INSPECTOR-AERONAUTICS TEACHER [address] [place] [address] Phone: tel:[phone] fax:[phone] Referral ID Status Reason Start Date Expiration Date V isits Requested Visits Authorized [id number] Authorized 10/19/2024 10/19/2025 1 1 [facility] Work Phone: Reason for visit Narrative* Imaging (Routine) - Authorized Specialty Diagnoses / Procedures Referred By Denny serna Referred To Contact Radiology Diagnoses Female infertility Procedures TERRENCE US Endometrial Lining Check Imelda Pollard MD [address] [place] [address] Phone: tel: fax: Referral ID Status Reason Start Date Expiration Date Visits Requested Visits Authorized [id number] Authorized Perform Procedure 11/28/2024 11/28/2025 5 5 [facility] Work Phone: Reason for visit Narrative* Procedure (Routine) - Authorized Specialty Diagnoses / Procedures Referred By Denny serna Referred To Contact Reproductive Endocrinology and Infertility Diagnoses Encounter for assisted reproductive fertility cycle Procedures Embryo Transfer GA EMBRYO TRANSFER INTRAUTERINE CHG ULTRASONIC GUIDANCE INTRAOPERATIVE CHG THAWING CRYOPRESERVED EMBRYO CHG ASSTD EMBRYO HATCHING MICROTQS ANY METH CHG PREPJ EMBRYO TR Imelda Pollard MD [address] [place] [address] Phone: tel: fax: Referral ID Status Reason Start Date Expiration Date V isits Requested Visits Authorized [id number] Authorized 11/30/2024 08/29/2025 1 1 [facility] Work Phone: Summary Purpose Family History No [...] Will Yes June 25 12:50pm Power of Ear Specialist Yes June 25, 2023 12:50pm Advance Directive Response Recorded Date/ Time Name of Medical Power of Ear Specialist - MAURO LD September 29, 2023 8:44am Living Will Yes September 29 8:44am Power of Ear Specialist Yes September 29, 2023 8:44am Advance Directive Response Recorded Date/ Time Name of Medical Power of Ear Specialist - MAURO LD September 29, 2023 9:44am Living Will Yes September 29 9:44am Power of Ear Specialist Yes September 29, 2023 9:44am Advance Directive Response Recorded Date/ Time Living Will Yes September 29 9:44am Do you have a Healthcare Power of Ear Specialist? Yes September 29, 2023 9:44am Chief Complaint and Reason for Visit Chief Complaint ESTABLISH W/ NEW GI AFTER MOVING TO CT 6 WK FU INT LABS Reason for [...] May 01, 2025 2:53pm Supervision of high-risk [facility] 2024 2:53pm Ulcerative colitis May 01, 2025 [...] May 11, 2025 1:47pm Supervision of high-risk Septe mber 2024 1:47pm Ulcerative colitis May 11, [...] 11, 2025 1:47pm Supervision of high-risk Geralde jose juan 2024 1:47pm Ulcerative colitis May 11, 2025 [...] 01, 2025 2:53pm Supervision of high-risk Septe [email or web address] 2:53pm Ulcerative colitis May 01, 2025 2:53pm [...] May 11, 2025 1:47pm Supervision of high-risk Septe mber 2024 1:47pm Ulcerative colitis May 11, [...] section and content) DATE CREATED AUTHOR 07/01/2019 [facility] DATE CREATED AUTHOR AUTHOR'S ORGANIZ ATION 04/10/2023 [facility] DATE CREATED AUTHOR AUTHOR'S ORGANIZ ATION 11/26/2023 [facility] ([place]) DATE CREATED AUTHOR AUTHOR'S ORGANIZ ATION 12/22/2024 [facility] DATE CREATED AUTHOR AUTHOR'S ORGANIZ ATION 12/22/2024 [facility] DATE CREATED AUTHOR AUTHOR'S ORGANIZ ATION 01/26/2025 [facility] DATE CREATED AUTHOR AUTHOR'S ORGANIZ ATION 01/29/2025 [facility] DATE CREATED AUTHOR AUTHOR'S ORGANIZ ATION 05/16/2025 [facility] DATE CREATED AUTHOR AUTHOR'S ORGANIZ ATION 07/06/2025 [facility] DATE CREATED AUTHOR AUTHOR'S ORGANIZ ATION 07/12/2025 [facility] Goals (unrecognized section and content) Type Care [...] wart-pt states was treated with ln2 at [facility]. Reason Comments Vaginal Discharge Care Teams (unrecognized sec tion and content) Team Status: Active Member Role Status Dates No Primary Care Physician Family Provider Active NASSHANICE MERCEDES Primary Care Provider Active Team Status: [...] DO Attending Provider, Other Prov ider Active NASTAMICHEL, MAGO Primary Care Provider, Referring Prov ider [...] CNM Attending Provider, Referring Pro vider Active [employer] Shear Operator Relationship Specialty Start Date End Date Amy Cherry RN Registered Nurse 07/17/24 [employer] Operator Relationship Specialty Start Date End Date Amy Cherry RN Registered Nurse 07/17/24 [employer] She[employer] Operator Relationship Specialty Start Date End Date Amy Cherry RN Registered Nurse 07/17/24 [employer] Shear Operator Relationship Specialty Start Date End Date Amy Cherry RN Registered Nurse 07/17/24 [employer] Shear Operator Relationship Specialty Start Date End Date Amy Cherry RN Registered Nurse 07/17/24 Hot [employer]illet Shear Operator Relationship Specialty Start Date End Date Amy Cherry RN Registered Nurse 07/17/24 Hot Billet Shear Operator Relationship Specialty Start Date End Date Amy Cherry, RN Registered Nurse 07/17/24 [employer] Shear Operator Relationship Specialty Start Date End Date Amy Cherry, RN Registered Nurse 07/17/24 Hot [employer]illet Shear Operator Relationship Specialty Start Date End Date Amy Cherry, RN Registered Nurse 07/17/24 Hot [employer]illet Shear Operator Relationship Specialty Start Date End Date Amy Cherry, RN Registered Nurse 07/17/24 [employer] Shear Operator Relationship Specialty Start Date End Date Amy Cherry, RN Registered Nurse 07/17/24 [employer] Shear Operator Relationship Specialty [place] [address] [place] [address] PCP - General Internal Medicine 12/11/24 [facility], RN Registered Nurse 07/17/24 [employer] Shear Operator Relationship Specialty [place] [address] [address] [facility] [address] [place] [address] PCP - General Internal Medicine 12/11/24 [facility] 07/17/24 [employer]illet Shear Operator Relationship Specialty [place] [address] [address] [facility] [address] [place] [address] PCP - General Internal Medicine 12/11/24 [facility] das, RN Registered Nurse 07/17/24 [employer] Shear Operator Relationship Specialty Start [place] [address] [facility] [address] [place] [address] PCP - General Internal Medicine 12/11/24 [facility], RN Registered Nurse 07/17/24 Team Status: Active [...] January 06, 2025 End: January 06, 2025 [employer] Shear Operator Relationship Specialty [place] [address] [address] [facility] [address] [place] [address] PCP - General Internal Medicine 12/11/24 Amy Cherry, RN Registered Nurse 07/17/24 [employer] Shear Operator Relationship Specialty [place] [address] [address] [facility] [address] [place] [address] PCP - General Internal Medicine 12/11/24 [facility], RN Registered Nurse 07/17/24 Team Status: Inactive [...] 2025 End: January 26, 2025 Dr. Carmen Lguo MD Attending Provider Active Start: January 26, [...] Inactive Member Role/Relationship Status Dates Dr. Catrachito Mercdees MD Primary care physician Active Start: February [...] 21, 2025 End: May 21, 2025 Dr. aCtrachito Mercedes MD Referring Provider Active Start: May [...] 2025 Dr. Marcia Yen DO Attending physician Julianne chase Start: June 01, 2025 End: June 01, [...] BE BASED ON THE PRIMARY CLINICAL RECORDS. [facility]. provides no warranty or guarantee of the accuracy or completeness of information in this document.
[2025-08-11 11:52] VITALS: BMI 38.2
[2025-08-11 11:57] VITALS: BP 135/87; PULSE 105; O2SAT 98
[2025-08-11 11:58] VITALS: PULSE 94; RESP 16; TEMP 36.1; O2SAT 98
[2025-08-11 12:22] LABS: ROM Internal Control Test YES-OK TO RESULT pt. (Internal QC); ROM Patient Test Negative (Negative); Record Kit Lot#, ROM+ K3607
[2025-08-11 12:23] LABS: Mucous, Urine 0 SEEN /hpf (<or=2+)
[2025-08-11 12:35] LABS: Color, Urine Yellow (Yellow); Glucose, Dipstick Normal (Normal); Ketone-Dipstick Negative (Negative); Leukocyte Esterase-Dipstick Negative /ul (Negative); Nitrite-Dipstick Negative (Negative); Occult Blood-Urine Negative /ul (Negative); Protein-Dipstick Negative (Negative); Specific Gravity, Urine 1.005 (1.002-1.030); Urine Bilirubin Dipstick Negative (Negative)
[2025-08-11 12:53] LABS: Red Blood Cells-Urine 0-5 SEEN /hpf (0-5); Squamous Epithelial Cells - UA 0-5 SEEN /hpf (5-10)
--- NOTE | 2025-08-11 13:59 | OB.TRI.PN ---
Progress Notes Date of Service: 08/11/25 Progress Note: Patient presents for triage evaluation secondary to FHT: [] Moderate variability reactive no decelerations category I tracing [place]: [] Contractions Assessment and plan: [] Reactive NST, reassuring maternal and status patient discharged to home to follow-up []. See problem list details for additional plan information. Laboratory Studies: Laboratory Tests 08/11/25 08/11/25 Range/Units 12:13 11:50 Urine Color Yellow (Yellow) Urine Clarity Clear (Clear) Urine pH 7.0 (5.0 - 8.0) Ur Specific Sharon 1.005 (1.002-1.030) Urine Protein Negative (Negative) mg/dl Urine Glucose (UA) Normal (Normal) mg/dl Urine Ketones Negative (Negative) mg/dl Urine Occult Blood Negative (Negative) /ul Urine Nitrite Negative (Negative) Urine Bilirubin Negative (Negative) mg/dL Urine Urobilinogen Normal (Normal) mg/dl Ur Leukocyte Esterase Negative (Negative) /ul Urine RBC 0-5 SEEN (0-5) /hpf Urine WBC 0-5 SEEN (0-5) /hpf Ur Squamous Epith Cells 0-5 SEEN (5-10) /hpf Urine Bacteria 2+ (None Seen) /hpf Urine Mucus 0 SEEN (<or=2+) /hpf Vag Amniotic Fld Detect Negative (Negative) Charges/Coding Multi Select Codes Urinary/Genital Urinary/Genital CPT Codes: 29845-99 non-stress test Interp
--- NOTE | 2025-08-11 14:04 | OB.TRI.PN_ITS ---
Progress Notes Date of Service: 08/11/25 Progress Note: Patient presents for triage evaluation secondary to possible ROM at 35 weeks FHT: 130 Moderate variability reactive no decelerations category I tracing [place]: irregular Contractions Assessment and plan: rom neg, urine sent for culture Reactive NST, reassuring maternal and status patient discharged to home to follow-up []. See problem list details for additional plan information. Laboratory Studies: Laboratory Tests 08/11/25 08/11/25 Range/Units 12:13 11:50 Urine Color Yellow (Yellow) Urine Clarity Clear (Clear) Urine pH 7.0 (5.0 - 8.0) Ur Specific [place] 1.005 (1.002-1.030) Urine Protein Negative (Negative) mg/dl Urine Glucose (UA) Normal (Normal) mg/dl Urine Ketones Negative (Negative) mg/dl Urine Occult Blood Negative (Negative) /ul Urine Nitrite Negative (Negative) Urine Bilirubin Negative (Negative) mg/dL Urine Urobilinogen Normal (Normal) mg/dl Ur Leukocyte Esterase Negative (Negative) /ul Urine RBC 0-5 SEEN (0-5) /hpf Urine WBC 0-5 SEEN (0-5) /hpf Ur Squamous Epith Cells 0-5 SEEN (5-10) /hpf Urine Bacteria 2+ (None Seen) /hpf Urine Mucus 0 SEEN (<or=2+) /hpf Vag Amniotic Fld Detect Negative (Negative) Charges/Coding Multi Select Codes Urinary/Genital Urinary/Genital CPT Codes: 64815-69 non-stress test Interp Assessment & Plan (1) Vaginal discharge: COMMENT: rom neg, urine culture sent (2) Diabetes in : QUALIFIERS: Diabetes in type: gestational Gestational diabetes mellitus control: insulin-controlled Trimester: third trimester Qualified Code(s): O24.414 - Gestational diabetes mellitus in , insulin controlled COMMENT: QID testing, switched to insulin per MFM. needs 2x weekly nsts 32 weeks; Growth Q4wk (3) Anemia: QUALIFIERS: Anemia type: unspecified type Qualified Code(s): D64.9 - Anemia, unspecified (4) Ulcerative colitis, left sided: (5) Lupus anticoagulant affecting , antepartum: COMMENT: +DRVVT. seeing MFM (6) Crohn's disease: QUALIFIERS: Gastrointestinal tract location: unspecified location Digestive disease complication type: without complication Qualified Code(s): K50.90 - Crohn's disease, unspecified, without complications COMMENT: Pt reports dx, pt of Dr. Ogden. needs M consult. (7) resulting from in vitro fertilization: QUALIFIERS: Trimester: unspecified trimester Qualified Code(s): O09.819 - Supervision of resulting from assisted reproductive technology, unspecified trimester COMMENT: growth US and NSTs at 36 week -normal echo (8) History of maternal blood transfusion, currently : COMMENT: 2018 due to anemia (9) History of anemia: (10) Subchorionic hematoma in first trimester: QUALIFIERS: Fetus number: single or unspecified fetus Qualified Code(s): O41.8X10 - Other specified disorders of amniotic fluid and membranes, first trimester, not applicable or unspecified; O46.8X1 - Other antepartum hemorrhage, first trimester COMMENT: seen on US in ER 01/22/25 and with fertility specialist (11) Prior with demise: COMMENT: 20 weeks, subchorionic hematoma (12) Supervision of high-risk : QUALIFIERS: Trimester: third trimester Qualified Code(s): O09.93 - Supervision of high risk , unspecified, third trimester COMMENT: PRR , GIL 09/13/25, DEBRA Kim (jul-20 week demise) Romel (13) : QUALIFIERS: Weeks of gestation: 34 weeks Qualified Code(s): Z3A.34 - 34 weeks gestation of COMMENT: declined NIPT & Carrier testing (14) Obesity affecting : QUALIFIERS: Trimester: third trimester Obesity type affecting : unspecified obesity Qualified Code(s): O99.213 - Obesity complicating , third trimester COMMENT: HGBA1c (15) Ulcerative colitis: QUALIFIERS: Ulcerative colitis location: ulcerative rectosigmoiditis Digestive disease complication type: without complication Qualified Code(s): 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 consulted
== END 2025-08-11 13:50 | disposition home or self-care (01) ==
LOC: WPOUT 11:37 → WP 11:37
PROVIDERS: Referring Provider Advanced Practice Midwife; Visit Provider Advanced Practice Midwife
DX: O24.414 Gestational diabetes mellitus in pregnancy, insulin controlled (principal); K51.30 Ulcerative (chronic) rectosigmoiditis without complications; O99.013 Anemia complicating pregnancy, third trimester; O99.613 Diseases of the digestive system complicating pregnancy, third trimester; O99.113 Other diseases of the blood and blood-forming organs and certain disorders involving the immune mechanism complicating pregnancy, third trimester; D68.62 Lupus anticoagulant syndrome; O99.213 Obesity complicating pregnancy, third trimester; Z87.59 Personal history of other complications of pregnancy, childbirth and the puerperium; Z3A.35 35 weeks gestation of pregnancy
CPT/HCPCS: 59025; 59050; 81001; 84112; 87086; 99221; G0378

== ENCOUNTER → 2025-08-21 | Outpatient (CLI) | payer BC, SELFPAY | END | disposition home or self-care (01) | LOC: LABSPEC 12:06 | PROVIDERS: Visit Provider Student in an Organized Health Care Education/Training Program | DX: O09.93 Supervision of high risk pregnancy, unspecified, third trimester (principal); Z3A.00 Weeks of gestation of pregnancy not specified | CPT/HCPCS: 87081 ==